=== PATIENT | male | born 1950 | race Hispanic/Latino ===

== ENCOUNTER 2022-06-04 09:45 | Inpatient (IN) | payer OTHER ==
--- OUTSIDE RECORDS SUMMARY | 2022-06-04 09:52 | XMS REPORT | Continuity of Care Document ---
:1950 Author Organization [facility] t Address [address] [place] [address] Care Team Providers Name Role Phone Favian Zamora Attending Clinician Unavailable Zander Gaston Attending Clinician Unavailable Sulema Robertson Attending Clinician Darrick Benson Attending Clinician Unavailable Lizzy Duke Attending Clinician Unavailable Favian Zamora Admitting Clinician Unavailable Zander Gaston Admitting Clinician Unavailable Darrick Benson Admitting Clinician Unavailable Lizzy Duke Admitting Clinician Unavailable Physician, No Primary or Family Admitting Clinician Unavaila ble Payers Payer Name Policy Type Policy Number Effective Date Expiration Date S ource Problems This patient has no known problems. Allergies, Adverse Reactions, Alerts Allergy Allergy Status Severity Reaction(s) Onset Inactive Treating Comm ents Source Name Type Date Date Clinician No Known DA Active U [facility]22 [facility] s 00:00: [address] No Known DA Active U [facility] 07-13 [facility] 00:00: [address] No Known DA Active U 2018-0 [facility] 6-10 [place] s 00:00: [place] 00 [facility] No Known DA Active U 2018-0 [facility] 6-10 [facility] s 00:00: [place] 00 [facility] No Known DA Active U 2017-0 [facility] 9-08 [place] [facility] Social History Social Habit Start Date Stop Date Quantity Comments Source Sex Assigned At [address] [facility] 00:00:00 00:00:00 Smoking Status Start Date Stop Date Source Tobacco smoking consumption unknown [facility] Medications This patient has no known medications. Procedures Procedure Date / Time Performed Performing Clinician [facility] e [id number] 2019-10-08 00:00:00 [facility] [id number] 2019-10-07 00:00:00 [facility] [id number] 2019-10-04 00:00:00 DILCIA.02 [facility] [id number] 2019-10-02 00:00:00 [facility] [id number] 2019-10-02 00:00:00 [facility] [id number] 2019-09-25 00:00:00 [facility] [id number] 2019-09-25 00:00:00 [facility] Encounters Start End Encounter Admission Attending Care Care Encounter Source Date/Time Date/Time Type Type Clinicians Facility Department ID 2021-07-16 Inpatient ANALY Zamora [facility] ENDO [id number] [facility] 11:30:00 Favian Sethi [facility] 2022-05-22 2022-05-27 Inpatient EM FEDERICO Gaston MED [id number] [facility] 20:52:00 18:26:00 Zander Blackmon [facility] 2021-02-21 2021-02-21 Telephone MALLORY Ricardo [facility] [id number] 00:00:00 00:00:00 [facility] [id number] [facility] [id number] 2019-10-06 2019-10-22 Inpatient FEDERICO Arias REHA [id number] [facility] 17:26:00 09:59:55 Darrick 82 [facility] 2019-10-01 2019-10-10 Inpatient FEDERICO Arias REHA [id number] [facility] 18:16:00 00:09:00 Darrick 40 [facility] 2019-10-02 2019-10-08 Inpatient Lizzy Miramontes HCAKW REHA [id number] [facility] 15:58:00 05:07:29 52 [facility] 2019-09-22 2019-10-05 Inpatient HCAKW BACILIO [id number] [facility] 14:26:00 00:22:19 21 [facility] 2019-09-22 2019-09-22 Outpatient Lizzy Duke [facility] OUTD [id number] [facility] 20:26:00 20:26:00 84 [facility] Results Test Description Test Time Test Comments Results Result Comments Source GLUBED 2022-05-27 17:16:00 Test Item Value Reference Range Interpretation Comme nts GLUBED (test code = GLUBED) 353 MG/DL 74-106 H [id number] 12:37:00 Test Item Value Reference Range Interpretation Comments GLUBED (test code = GLUBED) 200 MG/DL 74-106 H BASIC METABOLIC [id number] 05:31:00 Test Item Value Reference Range Interpretation Comments SODIUM (test code = 134 mmol/L 137-145 L NA) POTASSIUM (test 3.3 mmol/L 3.4-5.0 L code = K) CHLORIDE (test code 98 mmol/L 98-107 N = CL) CARBON DIOXIDE 33 mmol/L 22-30 H (test code = CO2) ANION GAP (test 6 code = GAP) GLUCOSE (test code 218 mg/dL 74-106 H = GLU) BLOOD UREA NITROGEN 18 mg/dL 9-20 N (test code = BUN) GLOMERULAR 108 mL/min The Glomerular FILTRATION RATE Filtration R ate is a (test code = GFR) calculated parameterbased on serum Creatinine, pat ient age and sex. GFR va luesless than 60 mL/min/ 1.73 square meters a re indicative ofCh ronic Kidney Disease. Values less than 15 mL/min/1.73squa re meters indicate Kidney failure. The calculation for GFR is based on the CK D-EPI (2020) calculat ion. This formulais race indifferent and is the recommended for nita for GFRby the [facility] on for Adults.The GFR will not calculate if th e sex is unknown or if thepatient's ag e is <18 years. CREATININE (test < 0.5 mg/dL 0.7-1.3 L code = CREAT) CALCIUM (test code 8.0 mg/dL 8.4-10.2 L = CA) INDEX HEMOLYSIS 25 Index/DL 0-100 N (test code = HEMINDEX) LIVER FUNCTION [id number] 05:31:00 Test Item Value Reference Range Interpretation Comments TOTAL PROTEIN (test 5.8 g/dL 6.3-8.2 L code = PROT) "A positive bias may occur for patients taking Eltrombopag(a b one marrow stimulan t used to treat thrombocy topenia andaplastic anemia)." ALBUMIN (test code = 3.1 g/dL 3.5-5.0 L ALB) BILIRUBIN TOTAL 1.3 mg/dL 0.2-1.3 N "A positive bias may (test code = BILT) occur for patients taking Eltrombo pag(a bone marrow sti mulant used to treat thrombocytopeni a andaplastic ane edson)." BILIRUBIN CONJUGATED 0 mg/dL 0-0.3 N "A posi tive bias may (test code = BILCON) occur f or patients taking Eltrombo pag(a bone marrow sti mulant used to treat thrombocytopeni a andaplastic ane edson)." CON JUGATED BILIRUBIN IS TH E REPLACEMENT ASS AY FOR DIRECTBILIRUBIN . BILIRUBIN 0.8 mg/dL 0-1.1 N UNCONJUGATED (test code = BILUNC) SGOT/AST (test code 51 U/L 15-46 H = AST) SGPT/ALT (test code 40 U/L 0-49 N = ALT) ALKALINE PHOSPHATASE 87 U/L 38-126 N (test code = ALKP) [id number] 05:31:00 Test Item Value Reference Range Interpretation Comments MAGNESIUM (test code = MAG) 1.6 mg/dL 1.6-2.3 N HGBA1C - GLYCOSYLATED [id number] 05:25:00 Test Item Value Reference Range Interpretation Comments GLYCOSYLATED 8.7 % 0-5.9 H Current guideli sada recommend HEMOGLOBIN (HA1C) a treatmen t goal of <7% (test code = GLYHGB) fordiab etic patients. A1c may be overesti mated in diabeticpatient s exhibiting poor control an d who are alsoheterozygou s or homozygous for HgbS or HgbC. Totalglycohemog lobin is a better indicato r of diabetic control inpatie nts with these hemoglobi n variants. [id number] 05:11:00 Test Item Value Reference Range Interpretation Comments GLUBED (test code = GLUBED) 205 MG/DL 74-106 H CBC W/AUTO [id number] 04:42:00 Test Item Value Reference Range Interpretation Comments WHITE BLOOD CELL (test code = 8.9 x10 3/uL 5.0-12.0 N WBC) RED BLOOD CELL (test code = 3.60 x10 6/uL 4.70-6.10 L RBC) HEMOGLOBIN (test code = HGB) 10.9 g/dL 14.0-18.0 L HEMATOCRIT (test code = HCT) 31.7 % 37.0-49.0 L MEAN CELL VOLUME (test code = 88 fL 80-94 N MCV) MEAN CELL HGB (test code = MCH) 30.3 pg 27-31 N MEAN CELL HGB CONCENTRATION 34.4 g/dL 33-37 N (test code = MCHC) RED CELL DISTRIBUTION WIDTH 13.2 % 11.5-15.5 N (test code = RDW) PLATELET COUNT (test code = 138 x10 3/uL 130-400 N PLT) MEAN PLATELET VOLUME (test code 10.2 fL 9.4-16.4 N = MPV) NEUTROPHIL % (test code = NT%) 79.3 % 43-65 H IMMATURE GRANULOCYTE % (test 0.8 % 0.0-2.0 N code = IG%) LYMPHOCYTE % (test code = LY%) 13.0 % 20.5-45.5 L MONOCYTE % (test code = MO%) 5.5 % 5.5-11.7 N EOSINOPHIL % (test code = EO%) 1.2 % 0.9-2.9 N BASOPHIL % (test code = BA%) 0.2 % 0.2-1.0 N NUCLEATED RBC % (test code = 0.0 % 0-1.0 N NRBC%) NEUTROPHIL # (test code = NT#) 7.04 x10 3/uL 2.2-4.8 H IMMATURE GRANULOCYTE # (test 0.07 x10 3/uL 0-0.03 H code = IG#) LYMPHOCYTE # (test code = LY#) 1.16 x10 3/uL 1.3-2.9 L MONOCYTE # (test code = MO#) 0.49 x10 3/uL 0.3-0.8 N EOSINOPHIL # (test code = EO#) 0.11 x10 3/uL 0.0-0.2 N BASOPHIL # (test code = BA#) 0.02 x10 3/uL 0.0-0.1 N [id number] 17:05:00 Test Item Value Reference Range Interpretation Comments GLUBED (test code = GLUBED) 346 MG/DL 74-106 H [id number] 12:12:00 Test Item Value Reference Range Interpretation Comments GLUBED (test code = GLUBED) 392 MG/DL 74-106 H CBC W/AUTO [id number] 05:22:00 Test Item Value Reference Range Interpretation Comments WHITE BLOOD CELL (test code = 4.9 x10 3/uL 5.0-12.0 L WBC) RED BLOOD CELL (test code = 4.01 x10 6/uL 4.70-6.10 L RBC) HEMOGLOBIN (test code = HGB) 12.0 g/dL 14.0-18.0 L HEMATOCRIT (test code = HCT) 35.2 % 37.0-49.0 L MEAN CELL VOLUME (test code = 88 fL 80-94 N MCV) MEAN CELL HGB (test code = MCH) 29.9 pg 27-31 N MEAN CELL HGB CONCENTRATION 34.1 g/dL 33-37 N (test code = MCHC) RED CELL DISTRIBUTION WIDTH 13.2 % 11.5-15.5 N (test code = RDW) PLATELET COUNT (test code = 133 x10 3/uL 130-400 N PLT) MEAN PLATELET VOLUME (test code 10.2 fL 9.4-16.4 N = MPV) NEUTROPHIL % (test code = NT%) 84.8 % 43-65 H IMMATURE GRANULOCYTE % (test 0.4 % 0.0-2.0 N code = IG%) LYMPHOCYTE % (test code = LY%) 13.2 % 20.5-45.5 L MONOCYTE % (test code = MO%) 1.4 % 5.5-11.7 L EOSINOPHIL % (test code = EO%) 0.0 % 0.9-2.9 L BASOPHIL % (test code = BA%) 0.2 % 0.2-1.0 N NUCLEATED RBC % (test code = 0.0 % 0-1.0 N NRBC%) NEUTROPHIL # (test code = NT#) 4.16 x10 3/uL 2.2-4.8 N IMMATURE GRANULOCYTE # (test 0.02 x10 3/uL 0-0.03 N code = IG#) LYMPHOCYTE # (test code = LY#) 0.65 x10 3/uL 1.3-2.9 L MONOCYTE # (test code = MO#) 0.07 x10 3/uL 0.3-0.8 L EOSINOPHIL # (test code = EO#) 0.00 x10 3/uL 0.0-0.2 N BASOPHIL # (test code = BA#) 0.01 x10 3/uL 0.0-0.1 N COMPREHENSIVE METABOLIC [id number] 02:10:00 Test Item Value Reference Range Interpretation Comments SODIUM (test code = 133 mmol/L 137-145 L NA) POTASSIUM (test 3.4 mmol/L 3.4-5.0 N code = K) CHLORIDE (test code 97 mmol/L 98-107 L = CL) CARBON DIOXIDE 33 mmol/L 22-30 H (test code = CO2) ANION GAP (test 6 code = GAP) GLUCOSE (test code 274 mg/dL 74-106 H = GLU) BLOOD UREA NITROGEN 13 mg/dL 9-20 N (test code = BUN) GLOMERULAR 108 mL/min The Glomerular FILTRATION RATE Filtration R ate is a (test code = GFR) calculated parameterbased on serum Creatinine, pat ient age and sex. GFR va luesless than 60 mL/min/ 1.73 square meters a re indicative ofCh ronic Kidney Disease. Values less than 15 mL/min/1.73squa re meters indicate Kidney failure. The calculation for GFR is based on the CK D-EPI (2020) calculat ion. This formulais race indifferent and is the recommended for nita for GFRby the [facility] on for Adults.The GFR will not calculate if th e sex is unknown or if thepatient's ag e is <18 years. CREATININE (test 0.5 mg/dL 0.7-1.3 L code = CREAT) TOTAL PROTEIN (test 6.1 g/dL 6.3-8.2 L code = PROT) " A positive bias m ay occur for patients ta lucero Eltrombopag(a b one marrow stimulan t used to treat thrombocytopeni a andaplastic anemia)." ALBUMIN (test code 3.3 g/dL 3.5-5.0 L = ALB) CALCIUM (test code 8.1 mg/dL 8.4-10.2 L = CA) BILIRUBIN TOTAL 1.7 mg/dL 0.2-1.3 H "A positive bias may (test code = BILT) occur for patients taking Eltrombo pag(a bone marrow sti mulant used to treat thrombocytopeni a andaplastic ane edson)." BILIRUBIN 0 mg/dL 0-0.3 N "A positive jessica s may CONJUGATED (test occur for p atients code = BILCON) taking Eltrom bopag(a bone marrow sti mulant used to treat thrombocytopeni a andaplastic ane edson)." C ONJUGATE D BILIRUBIN IS THE REPLACEMENT ASS AY FOR DIRECTBILIRUBIN . BILIRUBIN 1.1 mg/dL 0-1.1 N UNCONJUGATED (test code = BILUNC) SGOT/AST (test code 71 U/L 15-46 H = AST) SGPT/ALT (test code 46 U/L 0-49 N = ALT) ALKALINE 102 U/L 38-126 N PHOSPHATASE (test code = ALKP) INDEX HEMOLYSIS 18 Index/DL 0-100 N (test code = HEMINDEX) [id number] 02:10:00 Test Item Value Reference Range Interpretation Comments MAGNESIUM (test code = MAG) 1.7 mg/dL 1.6-2.3 N [id number] 16:48:00 Test Item Value Reference Range Interpretation Comments GLUBED (test code = GLUBED) 159 MG/DL 74-106 H [id number] 11:36:00 Test Item Value Reference Range Interpretation Comments GLUBED (test code = GLUBED) 160 MG/DL 74-106 H - CT HEAD/BRAIN W/O [id number] 10:16:00 [facility] 1950 Sex: M FAX:Seth Velazquez MD [phone] [place]: St: ADM FAX: Zander Garcia MD FAX: Kamini Chow MD R1 Name: SEYMOUR DICKERSON [facility] : 1950 Age/S: 71/M [address] Unit: [id number] Loc: C.[address]T [place] [address] Phys: Kamini Chow MD R1 Acct: [id number] Dis Date: Status: ADM IN PHONE #: [phone] Exam Date: 05/25/2022 1005 FAX #: [phone] Reason: acute dizziness, headache EXAMS: CPT CODE: [id number] CT HEAD/BRAIN W/O CONT [id number] EXAM: - CT HEAD/BRAIN W/O CONT INDICATION: acute dizziness, headache TECHNIQUE: Axial tomograms through the brain were obtained without intravenous contrast. Coronal and sagittal reformatted images are provided. All CT scans are performed using radiation dose reduction technique. Technical factors are evaluated and adjusted to insure appropriate moderation of exposure. Automated dose management technology is applied to adjust the radiation dose to minimize exposure while achieving a diagnostic quality image. Location:T18 FINDINGS: Intra-axial and extra-axial structures: No CT evidence of acute territorial infarct, or intracranial hemorrhage seen. No mass effect, midline shift or hydrocephalus seen. Bones and soft tissues:Appear unremarkable. Paranasal sinuses, and mastoid air cells: Appear clear. Orbits:Visualized orbits appear unremarkable. IMPRESSION: No acute intracranial process seen. at 1016 Reported and signed by: Valeriy Basilio MD CC: Seth Lin MD; Zander Gaston MD; Kamini Chow MD Technologist: JALYN VEGA; BETZY VINSON Trnscrd Dt/Tm: 05/25/2022 (1016) [id number] Orig Print D/T: S: 05/25/2022 (1019 PAGE 1 Signed ReportBASIC METABOLIC [id number] 05:59:00 Test Item Value Reference Range Interpretation Comments SODIUM (test code = 135 mmol/L 137-145 L NA) POTASSIUM (test 3.1 mmol/L 3.4-5.0 L code = K) CHLORIDE (test code 99 mmol/L 98-107 N = CL) CARBON DIOXIDE 31 mmol/L 22-30 H (test code = CO2) ANION GAP (test 8 code = GAP) GLUCOSE (test code 157 mg/dL 74-106 H = GLU) BLOOD UREA NITROGEN 9 mg/dL 9-20 N (test code = BUN) GLOMERULAR 108 mL/min The Glomerular FILTRATION RATE Filtration R ate is a (test code = GFR) calculated parameterbased on serum Creatinine, pat ient age and sex. GFR va luesless than 60 mL/min/ 1.73 square meters a re indicative ofCh ronic Kidney Disease. Values less than 15 mL/min/1.73squa re meters indicate Kidney failure. The calculation for GFR is based on the CK D-EPI (2020) calculat ion. This formulais race indifferent and is the recommended for nita for GFRby the [facility]ney [facility] on for Adults.The GFR will not calculate if th e sex is unknown or if thepatient's ag e is <18 years. CREATININE (test < 0.5 mg/dL 0.7-1.3 L code = CREAT) CALCIUM (test code 8.4 mg/dL 8.4-10.2 N = CA) INDEX HEMOLYSIS 25 Index/DL 0-100 N (test code = HEMINDEX) [id number] 05:59:00 Test Item Value Reference Range Interpretation Comments MAGNESIUM (test code = MAG) 1.4 mg/dL 1.6-2.3 L [id number] 05:41:00 Test Item Value Reference Range Interpretation Comments GLUBED (test code = GLUBED) 166 MG/DL 74-106 H CBC W/AUTO [id number] 04:47:00 Test Item Value Reference Range Interpretation Comments WHITE BLOOD CELL (test code = 5.1 x10 3/uL 5.0-12.0 N WBC) RED BLOOD CELL (test code = 4.08 x10 6/uL 4.70-6.10 L RBC) HEMOGLOBIN (test code = HGB) 12.6 g/dL 14.0-18.0 L HEMATOCRIT (test code = HCT) 36.5 % 37.0-49.0 L MEAN CELL VOLUME (test code = 90 fL 80-94 N MCV) MEAN CELL HGB (test code = MCH) 30.9 pg 27-31 N MEAN CELL HGB CONCENTRATION 34.5 g/dL 33-37 N (test code = MCHC) RED CELL DISTRIBUTION WIDTH 13.5 % 11.5-15.5 N (test code = RDW) PLATELET COUNT (test code = 129 x10 3/uL 130-400 L PLT) MEAN PLATELET VOLUME (test code 9.9 fL 9.4-16.4 N = MPV) NEUTROPHIL % (test code = NT%) 51.0 % 43-65 N IMMATURE GRANULOCYTE % (test 0.4 % 0.0-2.0 N code = IG%) LYMPHOCYTE % (test code = LY%) 31.2 % 20.5-45.5 N MONOCYTE % (test code = MO%) 13.0 % 5.5-11.7 H EOSINOPHIL % (test code = EO%) 3.8 % 0.9-2.9 H BASOPHIL % (test code = BA%) 0.6 % 0.2-1.0 N NUCLEATED RBC % (test code = 0.0 % 0-1.0 N NRBC%) NEUTROPHIL # (test code = NT#) 2.58 x10 3/uL 2.2-4.8 N IMMATURE GRANULOCYTE # (test 0.02 x10 3/uL 0-0.03 N code = IG#) LYMPHOCYTE # (test code = LY#) 1.58 x10 3/uL 1.3-2.9 N MONOCYTE # (test code = MO#) 0.66 x10 3/uL 0.3-0.8 N EOSINOPHIL # (test code = EO#) 0.19 x10 3/uL 0.0-0.2 N BASOPHIL # (test code = BA#) 0.03 x10 3/uL 0.0-0.1 N [id number] 21:36:00 Test Item Value Reference Range Interpretation Comments GLUBED (test code = GLUBED) 260 MG/DL 74-106 H [id number] 16:14:00 Test Item Value Reference Range Interpretation Comments GLUBED (test code = GLUBED) 288 MG/DL 74-106 H LIVER FUNCTION [id number] 16:07:00 Test Item Value Reference Range Interpretation Comments TOTAL PROTEIN (test 6.2 g/dL 6.3-8.2 L code = PROT) "A positive bias may occur for patients taking Eltrombopag(a b one marrow stimulan t used to treat thrombocy topenia andaplastic anemia)." ALBUMIN (test code = 3.4 g/dL 3.5-5.0 L ALB) BILIRUBIN TOTAL 1.5 mg/dL 0.2-1.3 H "A positive bias may (test code = BILT) occur for patients taking Eltrombo pag(a bone marrow sti mulant used to treat thrombocytopeni a andaplastic ane edson)." BILIRUBIN CONJUGATED 0 mg/dL 0-0.3 N "A posi tive bias may (test code = BILCON) occur f or patients taking Eltrombo pag(a bone marrow sti mulant used to treat thrombocytopeni a andaplastic ane edson)." CON JUGATED BILIRUBIN IS TH E REPLACEMENT ASS AY FOR DIRECTBILIRUBIN . BILIRUBIN 0.9 mg/dL 0-1.1 N UNCONJUGATED (test code = BILUNC) SGOT/AST (test code 77 U/L 15-46 H = AST) SGPT/ALT (test code 48 U/L 0-49 N = ALT) ALKALINE PHOSPHATASE 88 U/L 38-126 N (test code = ALKP) [id number] 16:07:00 Test Item Value Reference Range Interpretation Comments MAGNESIUM (test code = MAG) 1.1 mg/dL 1.6-2.3 L [id number] 12:06:00 Test Item Value Reference Range Interpretation Comments GLUBED (test code = GLUBED) 222 MG/DL 74-106 H BASIC METABOLIC [id number] 05:49:00 Test Item Value Reference Range Interpretation Comments SODIUM (test code = 135 mmol/L 137-145 L NA) POTASSIUM (test 3.0 mmol/L 3.4-5.0 L code = K) CHLORIDE (test code 100 mmol/L 98-107 N = CL) CARBON DIOXIDE 29 mmol/L 22-30 N (test code = CO2) ANION GAP (test 9 code = GAP) GLUCOSE (test code 213 mg/dL 74-106 H = GLU) BLOOD UREA NITROGEN 15 mg/dL 9-20 N (test code = BUN) GLOMERULAR 108 mL/min The Glomerular FILTRATION RATE Filtration R ate is a (test code = GFR) calculated parameterbased on serum Creatinin e, patient age and sex. GFR valuesless than 60 mL/min/1.73 squ are meters are allan cative ofChronic Kidne y Disease. Values less than 15 mL/min/1.73squa re meters indicate Kidney failure. The calculation for GFR is based on the CK D-EPI (2020) calculat ion. This formulais race indifferent and is the recommended for nita for GFRby the [facility] on for Adults.The GFR will not calculate i f the sex is unknown or if thepatient's ag e is <18 years. CREATININE (test 0.5 mg/dL 0.7-1.3 L code = CREAT) CALCIUM (test code 8.4 mg/dL 8.4-10.2 N = CA) INDEX HEMOLYSIS < 15 Index/DL 0-100 N (test code = HEMINDEX) CBC W/AUTO [id number] 04:18:00 Test Item Value Reference Range Interpretation Comments WHITE BLOOD CELL (test code = 5.1 x10 3/uL 5.0-12.0 N WBC) RED BLOOD CELL (test code = 3.95 x10 6/uL 4.70-6.10 L RBC) HEMOGLOBIN (test code = HGB) 12.2 g/dL 14.0-18.0 L HEMATOCRIT (test code = HCT) 35.7 % 37.0-49.0 L MEAN CELL VOLUME (test code = 90 fL 80-94 N MCV) MEAN CELL HGB (test code = MCH) 30.9 pg 27-31 N MEAN CELL HGB CONCENTRATION 34.2 g/dL 33-37 N (test code = MCHC) RED CELL DISTRIBUTION WIDTH 13.9 % 11.5-15.5 N (test code = RDW) PLATELET COUNT (test code = 117 x10 3/uL 130-400 L PLT) MEAN PLATELET VOLUME (test code 9.7 fL 9.4-16.4 N = MPV) NEUTROPHIL % (test code = NT%) 58.2 % 43-65 N IMMATURE GRANULOCYTE % (test 0.6 % 0.0-2.0 N code = IG%) LYMPHOCYTE % (test code = LY%) 26.1 % 20.5-45.5 N MONOCYTE % (test code = MO%) 11.0 % 5.5-11.7 N EOSINOPHIL % (test code = EO%) 3.3 % 0.9-2.9 H BASOPHIL % (test code = BA%) 0.8 % 0.2-1.0 N NUCLEATED RBC % (test code = 0.0 % 0-1.0 N NRBC%) NEUTROPHIL # (test code = NT#) 2.96 x10 3/uL 2.2-4.8 N IMMATURE GRANULOCYTE # (test 0.03 x10 3/uL 0-0.03 N code = IG#) LYMPHOCYTE # (test code = LY#) 1.33 x10 3/uL 1.3-2.9 N MONOCYTE # (test code = MO#) 0.56 x10 3/uL 0.3-0.8 N EOSINOPHIL # (test code = EO#) 0.17 x10 3/uL 0.0-0.2 N BASOPHIL # (test code = BA#) 0.04 x10 3/uL 0.0-0.1 N - CT ANGIO [id number] 16:44:00 [facility] : 1950 Sex: M FAX:Seth Velazquez MD [phone] [place]: St: [facility] FAX: Kamar Gale [phone] FAX: Anand Gonzalez DO R3 Name: SEYMOUR DICKERSON [facility] Uri : 1950 Age/S: 71/M [address] Unit: [id number] Loc: [place] [address] Phys: Anand Gonzalez DO R3 Acct: [id number] Dis Date: Status: ADM IN PHONE #: [phone] Exam Date: 05/23/2022 1604 FAX #: [phone] Reason: multifocal pneumonia, hypoxia, tach ycardia EXAMS: CPT CODE: [id number] CT ANGIO CHEST [id number] Location of dictation: B2 CTA of the chest with contrast, PE protocol CLINICAL INDICATION: Multifocal pneumonia, hypoxia and tachycardia Comments: Volumetric data acquisition through the chest with intravenous contrast reconstructed as contiguous axial volume, and multiplanar coronal and sagittal reconstructions per department protocol. 2.5 mm axial sections. Reconstructions - coronal and sagittal planes with MIP reformats Automated exposure reduction (Auto mA/Smart mA) was utilized in compliance with ACR [employer]. COMPARISON: Recent chest x-ray FINDINGS: Pulmonary arteries: No obvious evidence for pulmonary embolism or heart strain. Small subsegmental branches in the lower lobes are not optimally evaluated due to adjacent opacities andsome motion artifact. Heart and great vessels: Mild aneurysm of the thoracic aorta. The ascending aorta measures 3.7 cm in diameter, the aorta at the arch 3.3 cm and the descending thoracic aorta 3.3 cm. No evidence for dissection. The heart is not enlarged and there is no pericardial effusion. There are scattered atherosclerosis without cardiac decompensation. Lungs and pleura: Abnormal consolidations involving the left upper lobe and lingula. Additional mostly reticular opacities are seen in the right upper and both lower lobes. Some nodular opacities also seen in the medial right middle lobe. Noevidence for effusion. The chest wall is intact. Upper abdomen: Fatty liver with likely cyst in the right lobe, evaluation degraded by motion. Gallbladder removed. PAGE 1 Signed Report (CONTINUED) FAX:Seth Velazquez MD [phone] [place]: St: ADM FAX: Kamar Gale [phone] FAX: Junior Anand ruiz DO R3 [facility] : 1950 Age/S: 71/M [address] Unit: [id number] Loc: [place] [address] Phys: Anand Gonzalez DO Acct: [id number] Dis Date: Status: ADM IN PHONE #: [phone] Exam Date: 05/23/2022 1604 FAX #: [phone] Reason: multifocal pneumonia, hypoxia, tach ycardia EXAMS: CPT CODE: [id number] CT ANGIO CHEST [id number] (Continued) Bones and soft tissues: Severalright sided rib fractures anteriorly appear in the healing phase. No other acute osseous abnormalities noted. IMPRESSION: 1. No obvious pulmonary embolism, dissection or heart strain. 2. 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 3. Predominantly left- sided consolidations likely due to pneumonia. Bibasilar atelectasis also present. 4. Healing right rib fractures. at 3804 Reported and signed by: Gertrudis Becerra MD CC: Seth Lin MD; Kamar Gale MD; Anand Gonzalez DO Technologist: Reba esquivel Trnscrd Dt/Tm: 05/23/2022 (0594) [email or web address] Orig Print D/T: S: 05/23/2022 (8724 PAGE 2 Signed ReportCARDIAC ENZYMES [id number] 14:42:00 Test Item Value Reference Range Interpretation Comments TROPONIN-I 0.017 ng/mL 0.012-0.033 N (test code = TROPI) Please be a dvised of the updated referen ce ranges for the new Building Certifier ry instrumentation . VITROS TROPO ARSH I CRITERIANORM AL PATIENT W/O CIRCULATING TNI: 0.012-0.033 ng/ mLCIRCULATING TNI PRESENT: 0. 034-0.119 ng/mL(MAY BE AT RISK OF AMI)AMI DIAGNOS TIC CUTOFF: >/= 0.120 ng/mL~~~~~~~~~~ ~~~~~~~~~~~~~ ~~~~~~~~~~~~~~~ ~~~~~~~~~~~~~ ~~~~~~~~The use of serial sampling and te sting protocol is are commended practice.An mauro vated troponin level alone is often not suffi cient fordiagnosis of myocardial infarction. Tro ponin results obtained by dif ferent assays may vary.Evalua tion of the extent of myoca rdial damage based onincreas e of troponin would be valid only if similarmethodol ogy is used.~~~~~~~~~~ ~~~~~~~~~~~~~ ~~~~~~~~~~~~~~~ ~~~~~~~~~~~~~ ~~~~~~~~ A POSI TIVE BIAS MAY OCCUR FOR PATIE NTS TAKING BIOTIN SUPPLEMENTS~~~~ ~~~~~~~~~~~~~ ~~~~~~~~~~~~~~~ ~~~~~~~~~~~~~ ~~~~~~~~~~~~~~ Spec Comments: Cancel third set if POC Troponin completed in EDLIPID PROFILE (CORONARY RISK)2022-05-23 13:44:00 Test Item Value Reference Range Interpretation Comments TRIGLYCERIDES (test 164 mg/dL TRIGLYCE RIDES code = TRIG) REFERENCE RANGE:Normal: < 150 mg/dLBorderline High: 150-199 mg/dLHi gh: 200-499 mg/dLVe ry High: >=500 mg/ dL CHOLESTEROL (test 143 mg/dL CHOLESTERO L REFERENCE code = CHOL) RANGE:DESIRABLE : < 200 mg/dLBORDER LINE: 200-239 mg/dLHI GH: >=240 mg/dL HDL CHOLESTEROL (test 42 mg/dL 40-59 N code = HDL) LIPOPROTEIN LDL (test 57.37 mg/dL 32-99 N code = LDLC) CORONARY RISK FACTOR 3.40 CHOL/H DL RISK MALE: (test code = RISK) 1/2 AVG 3 .43 FEMALE: 1/2 AVG 3.27 AV G 4.97 AVG 4.44 2X AVG 9.55 2X AVG 7.05 3X AVG 23.39 3X AVG 11.04~~~~~~~~~~ ~~~~~~ ~~~~~~~~~~~~~~~ ~~~~~~ ~~~~~~~~~~~~~~~ ~~~~~~ ~~National Cholesterol Edu cation (NCEP) Guidelines:~~~~ ~~~~~~ ~~~~~~~~~~~~~~~ ~~~~~~ ~~~~~~~~~~~~~~~ ~~~~~~ ~~~~~~~~ HDL Cholesterol<4 0mg/dL : HDL Cholester ol (Major risk fac tor for CHD)>60mg/d L: HDL Cholesterol (Ne gative risk factor for CHD)40-59mg/dL: Borderline Risk LDL Cholesterol<1 00mg/d L: Desirable LD L-C [id number] 0-159m g/dL: Borderlin e High Risk LDL-C [id number] 0-189m g/dL: High risk LDL-C concentration H DL-LDL Cholesterol is affected by a n umber of factors such as smoking, age an d sex.~~~~~~~~~~~ ~~~~~~ ~~~~~~~~~~~~~~~ ~~~~~~ ~~~~~~~~~~~~~~~ ~~~~~~ ~ CARDIAC ENZYMES [id number] 13:42:00 Test Item Value Reference Range Interpretation Comments TROPONIN-I 0.017 ng/mL 0.012-0.033 N (test code = TROPI) Please be a dvised of the updated referen ce ranges for the new Building Certifier ry instrumentation . VITROS TROPO ARSH I CRITERIANORM AL PATIENT W/O CIRCULATING TNI: 0.012-0.033 ng/ mLCIRCULATING TNI PRESENT: 0. 034-0.119 ng/mL(MAY BE AT RISK OF AMI)AMI DIAGNOS TIC CUTOFF: >/= 0.120 ng/mL~~~~~~~~~~ ~~~~~~~~~~~~~ ~~~~~~~~~~~~~~~ ~~~~~~~~~~~~~ ~~~~~~~~The use of serial sampling and te sting protocol is are commended practice.An mauro vated troponin level alone is often not suffi cient fordiagnosis of myocardial infarction. Tro ponin results obtained by dif ferent assays may vary.Evalua tion of the extent of myoca rdial damage based onincreas e of troponin would be valid only if similarmethodol ogy is used.~~~~~~~~~~ ~~~~~~~~~~~~~ ~~~~~~~~~~~~~~~ ~~~~~~~~~~~~~ ~~~~~~~~ A POSI TIVE BIAS MAY OCCUR FOR PATIE NTS TAKING BIOTIN SUPPLEMENTS~~~~ ~~~~~~~~~~~~~ ~~~~~~~~~~~~~~~ ~~~~~~~~~~~~~ ~~~~~~~~~~~~~~ Spec Comments: Cancel third set if POC Troponin completed in EDLACTIC ACID 2022-05-23 13:19:00 Test Item Value Reference Range Interpretation Comments LACTIC ACID (test code = LACT) 1.9 mmol/L 0.7-2.0 N COVID 19 INHOUSE [id number] 13:07:00 Test Item Value Reference Range Interpretation Comments COVID 19 INHOUSE AG (test code = NEGATIVE Negative [id number]) - US ABDOMEN [id number] 06:33:00 [facility] 1950 Sex: M FAX:Seth Velazquez MD [phone] [place]: St: ADM FAX: Kamar Gale [phone] Name: SEYMOUR DICKERSON [facility] : 1950 Age/S: 71/M [address] Unit #: [id number] Loc: [place] [address] Phys: Maurice Pruitt DO Acct: [id number] Dis Date: Status: ADM IN PHONE #: [phone] Exam Date: 613 FAX #: [phone] Reason: n/v EXAMS: CPT CODE: [id number] US ABDOMEN LTD 09482 EXAM:- US ABDOMEN LTD HISTORY: n/v Location code:C3 COMPARISON: None available time of interpretation. TECHNIQUE: Grayscale B-mode and color Doppler sonographic images of the right upper quadrant were obtained. FINDINGS: Exam was limited by patient's body habitus. Liver: Right hepatic lobe length: 13.5 cmParenchyma/Contour: Nodular contour to the liver is suggested. The liver is poorly assessed due to overlying shadowing. Main portal vein: Patent with normal (hepatopetal) flow. Biliary ducts: No intrahepatic biliary ductal dilation. Common duct measures 4 mm in diameter at the elinor hepatis. Gallbladder: Surgically absent Pancreas: Not well visualized Right Kidney: Largely obscured with no discretehydronephrosis. Length: 13.3 cm Other: No ascites in the visualized abdomen. IMPRESSION: 1. Markedly limited exam as above. Suggestion of cirrhotic morphology of the liver although this is not definitive. Please see above. at 0633 Reported and signed by: Jose G Ferrell MD PAGE 1 Signed Report (CONTINUED) FAX: Seth Velazquez MD [phone] [place]: St: [facility] FAX: Kamar Gale [phone] [facility] : 1950 Age/S: 71/M [address] Unit #: [id number] Loc: [place] [address] Phys: Maurice Pruitt DO Acct: [id number] Dis Date: Status: ADM IN PHONE #: [phone] Exam Date: 05/23/2022613 FAX #: [phone] Reason: n/v EXAMS: CPT CODE: [id number] [facility] ABDOMEN LTD 75485 (Continued) CC: Seth Lin MD; Kamar Gale MD Technologist: VASQUEZ GRIGSBY Trnhird Date/Time/By: 05/23/2022 (0633) : By: [email or web address] PAGE 2 Signed Report FAX: Seth Velazquez MD [phone] [place]: St: ADM FAX: Kamar Gale [phone] Name: SEYMOUR DICKERSON [facility] : 1950 Age/S: 71/M [address] Unit #: [id number] [place]: [place] [address] Phys: Maurice Pruitt DO Acct: [id number] Dis Date: Status: ADM IN PHONE #: [phone] Exam Date: 05/23/2022613 FAX #: [phone] Reason: n/v EXAMS:CPT CODE: [id number] Est[facility] ABDOMEN LTD 00599 (Continued) Orig Print D/T: S: 05/23/2022 (0636) PAGE 3 Sig ata ReportACUTE HEPATITIS [id number] 05:48:00 Test Item Value Reference Range Interpretation Comments HEP A AB TOTAL ONLY POSITIVE NEGATIVE A A COPY O F THIS RESULT (test code = HAVAB) MUST BE SENT TO INFECTION CONTR OL- ~~~~~~~~~~~~~~~ ~~~~~~~~~ ~~~~~~~~~~~~~~~ ~~~~~~~~~ ~~~~~~~~~~~~THI S TEST DETECTS TOTAL A NTIBODIES TO HEPATITIS A, AND DOESNOT DIFFERE NTIATE BETWEEN IGG AND IGM.~~~~~~~~~~~ ~~~~~~~~~ ~~~~~~~~~~~~~~~ ~~~~~~~~~ ~~~~~~~~~~~~~~~ ~ A POSITIVE BIAS M AY OCCUR IN PATIENTS PAM ING BIOTIN SUPPLEMENTS~~~~ ~~~~~~~~~ ~~~~~~~~~~~~~~~ ~~~~~~~~~ ~~~~~~~~~~~~~~~ ~~~~~~~~ HEP A AB IGM QUAL NEGATIVE NEGATIVE (test code = HAVMAB) A p ositive bias may occur for patients taking BIOTINsupplemen ts. AG HEPATITIS B NEGATIVE NEGATIVE SURFACE (test code = HBSAG) HEP B CORE AB IGM QL NEGATIVE NEGATIVE (test code = HBCMAB) AB HEPATITIS C (test NEGATIVE NEGATIVE code = HCVAB) [id number] 04:10:00 Test Item Value Reference Range Interpretation Comments MAGNESIUM (test code = MAG) 0.7 mg/dL 1.6-2.3 L CARDIAC ENZYMES [id number] 04:10:00 Test Item Value Reference Range Interpretation Comments TROPONIN-I 0.032 ng/mL 0.012-0.033 N (test code = TROPI) Please be a dvised of the updated referen ce ranges for the new Building Certifier ry instrumentation . VITROS TROPO ARSH I CRITERIANORM AL PATIENT W/O CIRCULATING TNI: 0.012-0.033 ng/ mLCIRCULATING TNI PRESENT: 0. 034-0.119 ng/mL(MAY BE AT RISK OF AMI)AMI DIAGNOS TIC CUTOFF: >/= 0.120 ng/mL~~~~~~~~~~ ~~~~~~~~~~~~~ ~~~~~~~~~~~~~~~ ~~~~~~~~~~~~~ ~~~~~~~~The use of serial sampling and te sting protocol is are commended practice.An mauro vated troponin level alone is often not suffi cient fordiagnosis of myocardial infarction. Tro ponin results obtained by dif ferent assays may vary.Evalua tion of the extent of myoca rdial damage based onincreas e of troponin would be valid only if similarmethodol ogy is used.~~~~~~~~~~ ~~~~~~~~~~~~~ ~~~~~~~~~~~~~~~ ~~~~~~~~~~~~~ ~~~~~~~~ A POSI TIVE BIAS MAY OCCUR FOR PATIE NTS TAKING BIOTIN SUPPLEMENTS~~~~ ~~~~~~~~~~~~~ ~~~~~~~~~~~~~~~ ~~~~~~~~~~~~~ ~~~~~~~~~~~~~~ Spec Comments: Cancel third set if POC Troponin completed in EDCBC W/AUTO DIFF 2022-05-23 03:33:00 Test Item Value Reference Range Interpretation Comments WHITE BLOOD CELL (test code = 7.9 x10 3/uL 5.0-12.0 N WBC) RED BLOOD CELL (test code = 4.48 x10 6/uL 4.70-6.10 L RBC) HEMOGLOBIN (test code = HGB) 13.8 g/dL 14.0-18.0 L HEMATOCRIT (test code = HCT) 40.5 % 37.0-49.0 N MEAN CELL VOLUME (test code = 90 fL 80-94 N MCV) MEAN CELL HGB (test code = MCH) 30.8 pg 27-31 N MEAN CELL HGB CONCENTRATION 34.1 g/dL 33-37 N (test code = MCHC) RED CELL DISTRIBUTION WIDTH 14.1 % 11.5-15.5 N (test code = RDW) PLATELET COUNT (test code = 152 x10 3/uL 130-400 N PLT) MEAN PLATELET VOLUME (test code 9.7 fL 9.4-16.4 N = MPV) NEUTROPHIL % (test code = NT%) 74.8 % 43-65 H IMMATURE GRANULOCYTE % (test 0.4 % 0.0-2.0 N code = IG%) LYMPHOCYTE % (test code = LY%) 17.1 % 20.5-45.5 L MONOCYTE % (test code = MO%) 7.0 % 5.5-11.7 N EOSINOPHIL % (test code = EO%) 0.1 % 0.9-2.9 L BASOPHIL % (test code = BA%) 0.6 % 0.2-1.0 N NUCLEATED RBC % (test code = 0.0 % 0-1.0 N NRBC%) NEUTROPHIL # (test code = NT#) 5.92 x10 3/uL 2.2-4.8 H IMMATURE GRANULOCYTE # (test 0.03 x10 3/uL 0-0.03 N code = IG#) LYMPHOCYTE # (test code = LY#) 1.35 x10 3/uL 1.3-2.9 N MONOCYTE # (test code = MO#) 0.55 x10 3/uL 0.3-0.8 N EOSINOPHIL # (test code = EO#) 0.01 x10 3/uL 0.0-0.2 N BASOPHIL # (test code = BA#) 0.05 x10 3/uL 0.0-0.1 N [id number] 20:22:00 Test Item Value Reference Range Interpretation Comments CKMB (test code = 0.99 ng/mL 0.5-5.0 N CKMBT) A positive bias m ay occur for patients ta lucero BIOTINsupplemen ts. LACTIC [id number] 20:07:00 Test Item Value Reference Range Interpretation Comments LACTIC ACID (test code = LACT) 2.3 mmol/L 0.7-2.0 BASIC METABOLIC [id number] 19:16:00 Test Item Value Reference Range Interpretation Comments SODIUM (test code = 135 mmol/L 137-145 L NA) POTASSIUM (test 3.3 mmol/L 3.4-5.0 L code = K) CHLORIDE (test code 102 mmol/L 98-107 N = CL) CARBON DIOXIDE 25 mmol/L 22-30 N (test code = CO2) ANION GAP (test 12 code = GAP) GLUCOSE (test code 149 mg/dL 74-106 H = GLU) BLOOD UREA NITROGEN 21 mg/dL 9-20 H (test code = BUN) GLOMERULAR 102 mL/min The Glomerular FILTRATION RATE Filtration R ate is a (test code = GFR) calculated parameterbased on serum Creatinin e, patient age and sex. GFR valuesless than 60 mL/min/1.73 squ are meters are allan cative ofChronic Kidne y Disease. Values less than 15 mL/min/1.73squa re meters indicate Kidney failure. The calculation for GFR is based on the CK D-EPI (2020) calculat ion. This formulais race indifferent and is the recommended for nita for GFRby the N ational Kidney Foundati on for Adults.The GFR will not calculate i f the sex is unknown or if thepatient's ag e is <18 years. CREATININE (test 0.6 mg/dL 0.7-1.3 L code = CREAT) CALCIUM (test code 8.9 mg/dL 8.4-10.2 N = CA) INDEX HEMOLYSIS < 15 Index/DL 0-100 N (test code = HEMINDEX) LIVER FUNCTION [id number] 19:16:00 Test Item Value Reference Range Interpretation Comments TOTAL PROTEIN (test 7.6 g/dL 6.3-8.2 N code = PROT) "A positive bias may occur for patients taking Eltrombopag(a b one marrow stimulan t used to treat thrombocy topenia andaplastic anemia)." ALBUMIN (test code = 4.0 g/dL 3.5-5.0 N ALB) BILIRUBIN TOTAL 2.7 mg/dL 0.2-1.3 H "A positive bias may (test code = BILT) occur for patients taking Eltrombo pag(a bone marrow sti mulant used to treat thrombocytopeni a andaplastic ane edson)." BILIRUBIN CONJUGATED 0 mg/dL 0-0.3 N "A posi tive bias may (test code = BILCON) occur f or patients taking Eltrombo pag(a bone marrow sti mulant used to treat thrombocytopeni a andaplastic ane edson)." CON JUGATED BILIRUBIN IS TH E REPLACEMENT ASS AY FOR DIRECTBILIRUBIN . BILIRUBIN 1.8 mg/dL 0-1.1 H UNCONJUGATED (test code = BILUNC) SGOT/AST (test code 88 U/L 15-46 H = AST) SGPT/ALT (test code 55 U/L 0-49 H = ALT) ALKALINE PHOSPHATASE 130 U/L 38-126 H (test code = ALKP) [id number] 19:16:00 Test Item Value Reference Range Interpretation Comments TROPONIN-I 0.047 ng/mL 0.012-0.033 H (test code = TROPI) Please be a dvised of the updated referen ce ranges for the new Building Certifier ry instrumentation . VITROS TROPO ARSH I CRITERIANORM AL PATIENT W/O CIRCULATING TNI: 0.012-0.033 ng/ mLCIRCULATING TNI PRESENT: 0. 034-0.119 ng/mL(MAY BE AT RISK OF AMI)AMI DIAGNOS TIC CUTOFF: >/= 0.120 ng/mL~~~~~~~~~~ ~~~~~~~~~~~~~ ~~~~~~~~~~~~~~~ ~~~~~~~~~~~~~ ~~~~~~~~The use of serial sampling and te sting protocol is are commended practice.An mauro vated troponin level alone is often not suffi cient fordiagnosis of myocardial infarction. Tro ponin results obtained by dif ferent assays may vary.Evalua tion of the extent of myoca rdial damage based onincreas e of troponin would be valid only if similarmethodol ogy is used.~~~~~~~~~~ ~~~~~~~~~~~~~ ~~~~~~~~~~~~~~~ ~~~~~~~~~~~~~ ~~~~~~~~ A POS ITIVE BIAS MAY OCCUR FOR P ATIENTS TAKING BIOTIN SUPPLEMENTS~~~~ ~~~~~~~~~~~~~ ~~~~~~~~~~~~~~~ ~~~~~~~~~~~~~ ~~~~~~~~~~~~~~ CBC W/AUTO [id number] 18:48:00 Test Item Value Reference Range Interpretation Comments WHITE BLOOD CELL (test code = 10.2 x10 3/uL 5.0-12.0 N WBC) RED BLOOD CELL (test code = 4.86 x10 6/uL 4.70-6.10 N RBC) HEMOGLOBIN (test code = HGB) 15.1 g/dL 14.0-18.0 N HEMATOCRIT (test code = HCT) 43.8 % 37.0-49.0 N MEAN CELL VOLUME (test code = 90 fL 80-94 N MCV) MEAN CELL HGB (test code = MCH) 31.1 pg 27-31 H MEAN CELL HGB CONCENTRATION 34.5 g/dL 33-37 N (test code = MCHC) RED CELL DISTRIBUTION WIDTH 14.2 % 11.5-15.5 N (test code = RDW) PLATELET COUNT (test code = 169 x10 3/uL 130-400 N PLT) MEAN PLATELET VOLUME (test code 9.5 fL 9.4-16.4 N = MPV) NEUTROPHIL % (test code = NT%) 78.1 % 43-65 H IMMATURE GRANULOCYTE % (test 0.6 % 0.0-2.0 N code = IG%) LYMPHOCYTE % (test code = LY%) 14.7 % 20.5-45.5 L MONOCYTE % (test code = MO%) 5.7 % 5.5-11.7 N EOSINOPHIL % (test code = EO%) 0.1 % 0.9-2.9 L BASOPHIL % (test code = BA%) 0.8 % 0.2-1.0 N NUCLEATED RBC % (test code = 0.0 % 0-1.0 N NRBC%) NEUTROPHIL # (test code = NT#) 7.95 x10 3/uL 2.2-4.8 H IMMATURE GRANULOCYTE # (test 0.06 x10 3/uL 0-0.03 H code = IG#) LYMPHOCYTE # (test code = LY#) 1.50 x10 3/uL 1.3-2.9 N MONOCYTE # (test code = MO#) 0.58 x10 3/uL 0.3-0.8 N EOSINOPHIL # (test code = EO#) 0.01 x10 3/uL 0.0-0.2 N BASOPHIL # (test code = BA#) 0.08 x10 3/uL 0.0-0.1 N - XR CHEST 1 [id number] 17:43:00 [facility] 1950 Sex: M FAX: Jennie Singleton [place]: St: PRE Name: SEYMOUR DICKERSON [facility] : 1950 Age/S: 71/M [address] Unit #: [id number] Loc: [place] [address] Phys: Jennie Singleton Acct: [id number] Dis Date:Status: PRE ER PHONE #: [phone] Exam Date: 05/22/2022 1735 FAX #: [phone] Reason: CODE SEPSIS EXAMS: CPT CODE: [id number] XR CHEST 1 V 83677 EXAMINATION: - XR CHEST 1 V HISTORY: Flulike symptoms COMPARISON: None. LOCATION CODE: C3 FINDINGS: Single frontal view of the chest is submitted for evaluation. There are moderate streaky opacities seen in both lungs, left more extensive than right, most likely reflecting multifocal pneumonia. Trace bilateral pleural effusions are also suspected. Cardiac silhouette and mediastinal contours are unremarkable. No acute bony abnormalities are identified. IMPRESSION: Findings likely reflecting a combination of multifocal pneumonia and trace bilateral pleural effusions at 1743 Reported and signed by: Shawna Sutton MD CC: Jennie Singleton Technologist: Bibi Macias Date/Time/By: 05/22/2022 (1743) : By: [email or web address] PAGE 1 Signed Report FAX: Jennie Singleton [place]: St: PRE----- Name: SEYMOUR DICKERSON [facility] : 1950 Age/S: 71/M [address] Unit #: [id number] Loc: [place] [address] Phys: Jennie Singleton Acct: [id number] Dis Date: Status: PRE ER PHONE #: [phone] Exam Date: 05/22/2022 1735 FAX #: [phone] Reason: CODE SEPSIS EXAMS: CPT CODE: [id number] XR CHEST 1 V 06104 (Continued) Orig Print D/T: S: 05/22/2022 (1746) PAGE 2 Signed [id number] 16:56:00 Test Item Value Reference Range Interpretation Comments GLUBED (test code = GLUBED) 171 MG/DL 74-106 H [id number] 11:49:00 Test Item Value Reference Range Interpretation Comments GLUBED (test code = GLUBED) 161 MG/DL 74-106 H [id number] 05:56:00 Test Item Value Reference Range Interpretation Comments GLUBED (test code = GLUBED) 112 MG/DL 74-106 H [id number] 21:07:00 Test Item Value Reference Range Interpretation Comments GLUBED (test code = GLUBED) 158 MG/DL 74-106 H [id number] 17:37:00 Test Item Value Reference Range Interpretation Comments GLUBED (test code = GLUBED) 120 MG/DL 74-106 H - CT ABD PELVIS [id number] 17:13:00 FAX: Darrick Zapata [facility] [phone] [place]: St: ADM FAX: Allie Mason [phone] - Name: SEYMOUR SNOW [facility] : 1950 Age/S: 69/M [address] Unit: [id number] Loc: [address] [place] [address] Phys: Allie Calle MD Acct: [id number] Dis Date: Status: ADM IN PHONE #: [phone] Exam Date: 10/19/2019 1703 FAX #: [phone] Reason: F/U ON ABSCESS EXAMS: CPT CODE: [id number] CT ABD PELVIS W/CONT 65817 Examination: CT scan abdomen and pelvis with contrast. Location code: H 60. TECHNIQUE: Multiple axial images of the abdomen and pelvis were obtained after intravenous and demonstration of contrast with sagittal and coronal reconstructions. CT examination was performed using automated dose reduction. 100 mL of Isovue 370 contrast was injected intravenously. Creatinine measures 0.5. GFR is greater than 60. COMPARISON: 10/03/2019. Discussion: Clinical history is significant for abscess in gallbladder fossa. Follow-up. When compared to the prior examination the abscess previously described in the gallbladder fossa is almost completely resolved. Some residual inflammatory changes are identified. No discrete abscess is remaining. A small cyst is identified in the right lobe liver unchanged in size. The remainder the liver, spleen, adrenal glands, pancreas and kidneys are normal in appearance. 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 No enlarged retroperitoneal, pelvicor inguinal adenopathy is identified. The bladder is moderately distended and is grossly unremarkable. No other abnormal masses or fluid collections identified within the abdomen and/or pelvis. A small -to-moderate right pleural effusion is identified with right basilar atelectasis. Small left pleuraleffusion is also noted. There are essentially unchanged or minimally increased in size. IMPRESSION: 1. Almost complete resolution of the fluid collection/abscess in the gallbladder fossa as detailed above. 2. Persistent bilateral pleural effusions with adjacent atelectatic changes. 3. Simple cyst in the right lobe liver. at 1713 Reported and signed by: Miller Tucker MD PAGE 1 Signed Report (CONTINUED) FAX: Darrick Zapata [phone] [place]: St: ADM FAX: Allie Mason [phone] Name: SEYMOUR SNOW [facility] : 1950 Age/S: 69/M [address] Unit: [id number] Loc: [address] [place] [address] Phys: Allie Calle MD Acct: [id number] Dis Date: Status: ADM IN PHONE #: [phone] Exam Date: 10/19/2019 1703 FAX #: [phone] Reason: F/U ON ABSCESS EXAMS: CPT CODE: [id number] CT ABD PELVIS W/CONT 08989 (Continued) CC: Darrick Benson; Allie Calle MD Technologist: Reba Roman Trnscrd Dt/Tm: 10/19/2019 (1713) [id number] Orig Print D/T: S: 10/19/2019 (1716 PAGE 2 Signed [id number] 11:25:00 Test Item Value Reference Range Interpretation Comments GLUBED (test code = GLUBED) 143 MG/DL 74-106 H [id number] 05:46:00 Test Item Value Reference Range Interpretation Comments GLUBED (test code = GLUBED) 114 MG/DL 74-106 H [id number] 21:22:00 Test Item Value Reference Range Interpretation Comments GLUBED (test code = GLUBED) 155 MG/DL 74-106 H [id number] 17:42:00 Test Item Value Reference Range Interpretation Comments GLUBED (test code = GLUBED) 148 MG/DL 74-106 H [id number] 11:35:00 Test Item Value Reference Range Interpretation Comments GLUBED (test code = GLUBED) 186 MG/DL 74-106 H [id number] 05:30:00 Test Item Value Reference Range Interpretation Comments GLUBED (test code = GLUBED) 105 MG/DL 74-106 N [id number] 20:53:00 Test Item Value Reference Range Interpretation Comments GLUBED (test code = GLUBED) 135 MG/DL 74-106 H [id number] 16:32:00 Test Item Value Reference Range Interpretation Comments GLUBED (test code = GLUBED) 138 MG/DL 74-106 H [id number] 11:19:00 Test Item Value Reference Range Interpretation Comments GLUBED (test code = GLUBED) 148 MG/DL 74-106 H [id number] 05:44:00 Test Item Value Reference Range Interpretation Comments GLUBED (test code = GLUBED) 106 MG/DL 74-106 N [id number] 21:32:00 Test Item Value Reference Range Interpretation Comments GLUBED (test code = GLUBED) 164 MG/DL 74-106 H [id number] 18:31:00 Test Item Value Reference Range Interpretation Comments GLUBED (test code = GLUBED) 128 MG/DL 74-106 H [id number] 11:46:00 Test Item Value Reference Range Interpretation Comments GLUBED (test code = GLUBED) 176 MG/DL 74-106 H [id number] 05:46:00 Test Item Value Reference Range Interpretation Comments GLUBED (test code = GLUBED) 116 MG/DL 74-106 H [id number] 21:00:00 Test Item Value Reference Range Interpretation Comments GLUBED (test code = GLUBED) 167 MG/DL 74-106 H [id number] 17:36:00 Test Item Value Reference Range Interpretation Comments GLUBED (test code = GLUBED) 124 MG/DL 74-106 H [id number] 12:35:00 Test Item Value Reference Range Interpretation Comments GLUBED (test code = GLUBED) 198 MG/DL 74-106 H [id number] 05:47:00 Test Item Value Reference Range Interpretation Comments GLUBED (test code = GLUBED) 112 MG/DL 74-106 H [id number] 02:39:00 Test Item Value Reference Range Interpretation Comments CREATININE (test code = CREAT) < 0.5 mg/dL 0.7-1.3 L CBC W/AUTO [id number] 02:15:00 Test Item Value Reference Range Interpretation Comments WHITE BLOOD CELL (test code = 6.0 x10 3/uL 5.0-12.0 N WBC) RED BLOOD CELL (test code = 3.26 x10 6/uL 4.70-6.10 L RBC) HEMOGLOBIN (test code = HGB) 10.2 g/dL 14.0-18.0 L HEMATOCRIT (test code = HCT) 29.2 % 37.0-49.0 L MEAN CELL VOLUME (test code = 90 fL 80-94 N MCV) MEAN CELL HGB (test code = MCH) 31.3 pg 27-31 H MEAN CELL HGB CONCENTRATION 34.9 g/dL 33-37 N (test code = MCHC) RED CELL DISTRIBUTION WIDTH 12.8 % 11.5-15.5 N (test code = RDW) PLATELET COUNT (test code = 333 x10 3/uL 130-400 N PLT) MEAN PLATELET VOLUME (test code 8.9 fL 9.4-16.4 L = MPV) NEUTROPHIL % (test code = NT%) 53.4 % 43-65 N IMMATURE GRANULOCYTE % (test 0.3 % 0.0-2.0 N code = IG%) LYMPHOCYTE % (test code = LY%) 31.5 % 20.5-45.5 N MONOCYTE % (test code = MO%) 10.5 % 5.5-11.7 N EOSINOPHIL % (test code = EO%) 3.3 % 0.9-2.9 H BASOPHIL % (test code = BA%) 1.0 % 0.2-1.0 N NUCLEATED RBC % (test code = 0.0 % 0-1.0 N NRBC%) NEUTROPHIL # (test code = NT#) 3.20 x10 3/uL 2.2-4.8 N IMMATURE GRANULOCYTE # (test 0.02 x10 3/uL 0-0.03 N code = IG#) LYMPHOCYTE # (test code = LY#) 1.89 x10 3/uL 1.3-2.9 N MONOCYTE # (test code = MO#) 0.63 x10 3/uL 0.3-0.8 N EOSINOPHIL # (test code = EO#) 0.20 x10 3/uL 0.0-0.2 N BASOPHIL # (test code = BA#) 0.06 x10 3/uL 0.0-0.1 N [id number] 20:35:00 Test Item Value Reference Range Interpretation Comments GLUBED (test code = GLUBED) 144 MG/DL 74-106 H [id number] 17:34:00 Test Item Value Reference Range Interpretation Comments GLUBED (test code = GLUBED) 144 MG/DL 74-106 H [id number] 11:57:00 Test Item Value Reference Range Interpretation Comments GLUBED (test code = GLUBED) 143 MG/DL 74-106 H [id number] 06:18:00 Test Item Value Reference Range Interpretation Comments GLUBED (test code = GLUBED) 110 MG/DL 74-106 H [id number] 21:46:00 Test Item Value Reference Range Interpretation Comments GLUBED (test code = GLUBED) 160 MG/DL 74-106 H [id number] 17:25:00 Test Item Value Reference Range Interpretation Comments GLUBED (test code = GLUBED) 144 MG/DL 74-106 H [id number] 11:57:00 Test Item Value Reference Range Interpretation Comments GLUBED (test code = GLUBED) 164 MG/DL 74-106 H [id number] 06:09:00 Test Item Value Reference Range Interpretation Comments GLUBED (test code = GLUBED) 120 MG/DL 74-106 H [id number] 21:32:00 Test Item Value Reference Range Interpretation Comments GLUBED (test code = GLUBED) 137 MG/DL 74-106 H [id number] 17:24:00 Test Item Value Reference Range Interpretation Comments GLUBED (test code = GLUBED) 122 MG/DL 74-106 H [id number] 11:27:00 Test Item Value Reference Range Interpretation Comments GLUBED (test code = GLUBED) 223 MG/DL 74-106 H BASIC METABOLIC [id number] 05:37:00 Test Item Value Reference Range Interpretation Comments SODIUM (test code = 134 mmol/L 137-145 L NA) POTASSIUM (test code 3.6 mmol/L 3.4-5.0 N = K) CHLORIDE (test code 94 mmol/L 98-107 L = CL) CARBON DIOXIDE (test 33 mmol/L 22-30 H code = CO2) GLUCOSE (test code = 109 mg/dL 74-106 H GLU) BLOOD UREA NITROGEN 7 mg/dL 9-20 L (test code = BUN) GLOMERULAR 174 >60 The estimated FILTRATION RATE glomerular f iltration (test code = GFR) rate is co mputed usingpatient ra ce, age (>18), sex, and serum creatinine. If anyof the needed data elements are mi ssing the Laboratory cannot compute an gwendolyn mation of the glomerul ar filtration rate . CREATININE (test < 0.5 mg/dL 0.7-1.3 L code = CREAT) CALCIUM (test code = 8.1 mg/dL 8.4-10.2 L CA) [id number] 05:33:00 Test Item Value Reference Range Interpretation Comments GLUBED (test code = GLUBED) 118 MG/DL 74-106 H [id number] 21:05:00 Test Item Value Reference Range Interpretation Comments GLUBED (test code = GLUBED) 159 MG/DL 74-106 H [id number] 17:32:00 Test Item Value Reference Range Interpretation Comments GLUBED (test code = GLUBED) 145 MG/DL 74-106 H - XR CHEST 1 [id number] 16:12:00 FAX: Darrick Zapata [phone] [place]: St: ADM FAX: N Shola Cuba DO [phone] -------- [facility] 1950 Age/S: 69/M [address] Unit #: [id number] Loc: C.66[address] [place] [address] Phys: Shola Cuba DO Acct: [id number] Dis Date: Status: ADM IN PHONE #: [phone] Exam Date: 10/11/2019 1445 FAX #: [phone] Reason: FOLLOW UP EXAMS: CPT CODE: [id number] XR CHEST 1 V 19580 EXAM: Portable chest x-ray Dictation location: T18 COMPARISON: Chest x-ray on 10/03/2019 and chestx-ray on 10/02/2019 INDICATION: FOLLOW UP DISCUSSION: There is partial consolidation at the right lung base and left cardiac region, and discoid atelectasis over the mid to lower lungs bilaterally. A small to moderate-sized right pleural effusion is seen. The cardiac silhouette is within normal limits.No acute bony abnormalities are identified. IMPRESSION: 1. Small to moderate-sized right pleural effusion, slightly increased. 2. Bibasilar partial consolidation, probably due to atelectasis. Pneumoniais not entirely excluded. at 1612 Reported and signed by: Donnie Blackwell MD CC: Darrick Benson; Shola Niño Technologist: Bibi Macias Date/Time/By: 10/11/2019 (3402) : By: [email or web address] PAGE 1 Signed Report FAX: Darrick Zapata [phone] [place]: St: ADM FAX: Shola Lemus DO [phone] Name: [facility] :1950 Age/S: 69/M [address] Unit #: [id number] Loc: C.[address] [place] [address] Phys: Shola Cuba DO Acct: [id number] Dis Date: Status: ADM IN PHONE #: [phone] Exam Date: 10/11/2019 1445 FAX #: [phone] Reason: FOLLOW UP EXAMS: CPT CODE: [id number] XR CHEST 1 V 24889 (Continued) OrigPrint D/T: S: 10/11/2019 (161) PAGE 2 Signed [id number] 11:55:00 Test Item Value Reference Range Interpretation Comments GLUBED (test code = GLUBED) 156 MG/DL 74-106 H [id number] 06:04:00 Test Item Value Reference Range Interpretation Comments GLUBED (test code = GLUBED) 132 MG/DL 74-106 H [id number] 20:54:00 Test Item Value Reference Range Interpretation Comments GLUBED (test code = GLUBED) 146 MG/DL 74-106 H [id number] 17:47:00 Test Item Value Reference Range Interpretation Comments GLUBED (test code = GLUBED) 134 MG/DL 74-106 H - XR C-SPINE 2-3 [id number] 17:38:00 FAX: Darrick Zapata [phone] [place]: St: ADM FAX: N Shola Cuba DO [phone] -------- [facility] 1950 Age/S: 69/M [address] Unit #: [id number] Loc: C.[address] [place] [address] Phys: Rosa ElenaParthaBig Horn DO Acct: [id number] Dis Date: Status: ADM IN PHONE #: [phone] Exam Date: 10/10/2019 1653 FAX #: [phone] Reason: NECK PAIN EXAMS: CPT CODE: [id number] XR C-SPINE 2-3VIEWS 39591 EXAM: Cervical spine series, 4 views Dictation location: T18 INDICATION: Neck pain COMPARISON: None DISCUSSION: AP, lateral, swimmer's, and open mouth odontoid views of the cervical spine are submitted. The odontoid is obscured. The lower cervical spine is obscured on both the lateral and swimmer's views due to overlying soft tissues. There is no obvious fracture or mass in the lower cervical spine on the frontal view. Mild reversal of cervical lordosis is seen on the lateral view. Visualized disc spaces from C2-3 through C5-6 on the lateral view appear well-preserved. Moderate multilevel facet arthrosis is noted. Uncovertebral joints are suboptimally evaluated. Prevertebral soft tissues are unremarkable. There is evidence of partial atelectasis in the right lung on the frontal image. IMPRESSION: 1. Somewhat limited evaluation below the C5-6 disc level due to overlying soft tissues on both the lateral and swimmer's views. There is no obvious fracture of these obscured levels based on the frontal view. The odontoid is also obscured. 2. Moderate multilevel facet arthrosis. Mild reversal of cervical lordosis. 3. Disc space height appears well preserved from C2-3 through C5-6. 4. Suspected partial atelectasis in the mid to lower right lung. at 1738 Reported and signed by: Donnie Blackwell MD CC: Darrick Benson; Shola Niño Technologist: Gabriella Rouse Trnscrd Date/Time/By: 10/10/2019 (3183) : By: [email or web address] PAGE 1 Signed Report FAX: Darrick Zapata [phone] [place]: St: ADM FAX: N Shola Cuba DO [phone] Name: [facility] : 1950 Age/S: 69/M [address] Unit #: [id number] Loc: C.[address] [place] [address] Phys: Shola Cuba DO Acct: [id number] Dis Date: Status: ADM IN PHONE #: [phone] Exam Date: 10/10/2019 1653 FAX #: [phone] Reason: NECK PAIN EXAMS: CPT CODE: [id number] XR C-SPINE 2-3 VIEWS 42994 (Continued) Orig Print D/T: S: 10/10/2019 (0670) PAGE 2 Signed [id number] 11:32:00 Test Item Value Reference Range Interpretation Comments GLUBED (test code = GLUBED) 156 MG/DL 74-106 H [id number] 06:16:00 Test Item Value Reference Range Interpretation Comments GLUBED (test code = GLUBED) 154 MG/DL 74-106 H [id number] 21:12:00 Test Item Value Reference Range Interpretation Comments GLUBED (test code = GLUBED) 121 MG/DL 74-106 H [id number] 16:57:00 Test Item Value Reference Range Interpretation Comments GLUBED (test code = GLUBED) 135 MG/DL 74-106 H [id number] 11:45:00 Test Item Value Reference Range Interpretation Comments GLUBED (test code = GLUBED) 190 MG/DL 74-106 H [id number] 06:01:00 Test Item Value Reference Range Interpretation Comments GLUBED (test code = GLUBED) 141 MG/DL 74-106 H [id number] 21:55:00 Test Item Value Reference Range Interpretation Comments GLUBED (test code = GLUBED) 175 MG/DL 74-106 H [id number] 17:19:00 Test Item Value Reference Range Interpretation Comments GLUBED (test code = GLUBED) 187 MG/DL 74-106 H [id number] 11:12:00 Test Item Value Reference Range Interpretation Comments GLUBED (test code = GLUBED) 191 MG/DL 74-106 H [id number] 05:40:00 Test Item Value Reference Range Interpretation Comments GLUBED (test code = GLUBED) 130 MG/DL 74-106 H [id number] 21:11:00 Test Item Value Reference Range Interpretation Comments GLUBED (test code = GLUBED) 170 MG/DL 74-106 H [id number] 17:29:00 Test Item Value Reference Range Interpretation Comments GLUBED (test code = GLUBED) 180 MG/DL 74-106 H [id number] 11:49:00 Test Item Value Reference Range Interpretation Comments GLUBED (test code = GLUBED) 181 MG/DL 74-106 H [id number] 05:55:00 Test Item Value Reference Range Interpretation Comments GLUBED (test code = GLUBED) 126 MG/DL 74-106 H [id number] 20:58:00 Test Item Value Reference Range Interpretation Comments GLUBED (test code = GLUBED) 151 MG/DL 74-106 H URINALYSIS [id number] 19:51:00 Test Item Value Reference Range Interpretation Comments UA COLOR (test code = COLU) Yellow Yellow UA APPEARANCE (test code = Clear Clear APPU) UA GLUCOSE DIPSTICK (test code Negative Negative = DGLUU) UA BILIRUBIN DIPSTICK (test Negative Negative code = BILU) UA KETONE DIPSTICK (test code Negative mg/dL Negative = KETU) UA SPECIFIC GRAVITY (test code 1.015 <1.030 = SGU) UA BLOOD DIPSTICK (test code = Negative Negative BUTCH) UA PH DIPSTICK (test code = 6.0 5.0-8.0 ECHO) UA PROTEIN DIPSTICK (test code NEGATIVE mg/dL Negative = PROU) UA UROBILINOGEN DIPSTICK (test 4.0 mg/dL Negative A code = URO) UA NITRITE DIPSTICK (test code Negative Negative = SHANDA) UA LEUKOCYTE ESTERASE DIPSTICK NEGATIVE Negative (test code = LEUU) UA WBC (test code = WBCU) 0-3 /HPF <4-5 UA RBC (test code = RBCU) 0-3 /HPF <4-5 UA BACTERIA (test code = BACU) None /HPF None-Rare UA MUCUS (test code = MUCU) Rare /LPF <Rare COMPREHENSIVE METABOLIC [id number] 18:49:00 Test Item Value Reference Range Interpretation Comments SODIUM (test code = 131 mmol/L 137-145 L NA) POTASSIUM (test code = 3.5 mmol/L 3.4-5.0 N K) CHLORIDE (test code = 92 mmol/L 98-107 L CL) CARBON DIOXIDE (test 33 mmol/L 22-30 H code = CO2) GLUCOSE (test code = 170 mg/dL 74-106 H GLU) BLOOD UREA NITROGEN 7 mg/dL 9-20 L (test code = BUN) GLOMERULAR FILTRATION 174 >60 The es timated RATE (test code = GFR) glome rular filtration rate is compute d usingpatient ra ce, age (>18), sex, and serum creatinin e. If anyof the neede d data elements are mi ssing the Laboratory cannot compute an gwendolyn mation of the glomerul ar filtration rate . CREATININE (test code 0.5 mg/dL 0.7-1.3 L = CREAT) TOTAL PROTEIN (test 6.3 g/dL 6.3-8.2 N code = PROT) ALBUMIN (test code = 2.9 g/dL 3.5-5.0 L ALB) CALCIUM (test code = 7.7 mg/dL 8.4-10.2 L CA) BILIRUBIN TOTAL (test 0.8 mg/dL 0.2-1.3 N code = BILT) BILIRUBIN CONJUGATED 0 mg/dL 0-0.3 N ~~~~~~~ ~~~~~~~~~~~~~~ (test code = BILCON) ~~~~~~~ ~~~~~~~~~~~~~~ ~~~~~~~~~~~~~~~ ~~~CON JUGATED BILIRUB IN IS THE REPLACEMENT ASSAY FOR DIRECTBILIRUBIN .~~~~~ ~~~~~~~~~~~~~~~ ~~~~~~ ~~~~~~~~~~~~~~~ ~~~~~~ ~~~~~~~~~~~~~ BILIRUBIN UNCONJUGATED 0.4 mg/dL 0-1.1 N (test code = BILUNC) SGOT/AST (test code = 44 U/L 15-46 N AST) SGPT/ALT (test code = 43 U/L 13-69 N ALT) ALKALINE PHOSPHATASE 228 U/L 38-126 H (test code = ALKP) CBC W/AUTO [id number] 18:34:00 Test Item Value Reference Range Interpretation Comments WHITE BLOOD CELL (test code = 7.8 x10 3/uL 5.0-12.0 N WBC) RED BLOOD CELL (test code = 3.25 x10 6/uL 4.70-6.10 L RBC) HEMOGLOBIN (test code = HGB) 10.1 g/dL 14.0-18.0 L HEMATOCRIT (test code = HCT) 29.9 % 37.0-49.0 L MEAN CELL VOLUME (test code = 92 fL 80-94 N MCV) MEAN CELL HGB (test code = MCH) 31.1 pg 27-31 H MEAN CELL HGB CONCENTRATION 33.8 g/dL 33-37 N (test code = MCHC) RED CELL DISTRIBUTION WIDTH 13.1 % 11.5-15.5 N (test code = RDW) PLATELET COUNT (test code = 248 x10 3/uL 130-400 N PLT) MEAN PLATELET VOLUME (test code 9.1 fL 9.4-16.4 L = MPV) NEUTROPHIL % (test code = NT%) 65.8 % 43-65 H IMMATURE GRANULOCYTE % (test 0.5 % 0.0-2.0 N code = IG%) LYMPHOCYTE % (test code = LY%) 19.6 % 20.5-45.5 L MONOCYTE % (test code = MO%) 8.6 % 5.5-11.7 N EOSINOPHIL % (test code = EO%) 5.0 % 0.9-2.9 H BASOPHIL % (test code = BA%) 0.5 % 0.2-1.0 N NUCLEATED RBC % (test code = 0.0 % 0-1.0 N NRBC%) NEUTROPHIL # (test code = NT#) 5.12 x10 3/uL 2.2-4.8 H IMMATURE GRANULOCYTE # (test 0.04 x10 3/uL 0-0.03 H code = IG#) LYMPHOCYTE # (test code = LY#) 1.53 x10 3/uL 1.3-2.9 N MONOCYTE # (test code = MO#) 0.67 x10 3/uL 0.3-0.8 N EOSINOPHIL # (test code = EO#) 0.39 x10 3/uL 0.0-0.2 H BASOPHIL # (test code = BA#) 0.04 x10 3/uL 0.0-0.1 N [id number] 15:36:00 Test Item Value Reference Range Interpretation Comments MAGNESIUM (test code = MAG) 1.8 mg/dL 1.6-2.3 N [id number] 15:33:00 Test Item Value Reference Range Interpretation Comments GLUBED (test code = GLUBED) 237 MG/DL 74-106 H [id number] 12:00:00 Test Item Value Reference Range Interpretation Comments GLUBED (test code = GLUBED) 199 MG/DL 74-106 H [id number] 06:01:00 Test Item Value Reference Range Interpretation Comments GLUBED (test code = GLUBED) 125 MG/DL 74-106 H COMPREHENSIVE METABOLIC [id number] 03:57:00 Test Item Value Reference Range Interpretation Comments SODIUM (test code = 131 mmol/L 137-145 L NA) POTASSIUM (test code 3.6 mmol/L 3.4-5.0 N = K) CHLORIDE (test code = 95 mmol/L 98-107 L CL) CARBON DIOXIDE (test 32 mmol/L 22-30 H code = CO2) GLUCOSE (test code = 124 mg/dL 74-106 H GLU) BLOOD UREA NITROGEN 7 mg/dL 9-20 L (test code = BUN) GLOMERULAR FILTRATION 174 >60 The es timated RATE (test code = glomerular filtration GFR) rate is compute d usingpatient ra ce, age (>18), sex, and serum creatinin e. If anyof the neede d data elements are mi ssing the Laboratory cannot compute an gwendolyn mation of the glomerul ar filtration rate . CREATININE (test code < 0.5 mg/dL 0.7-1.3 L = CREAT) TOTAL PROTEIN (test 6.1 g/dL 6.3-8.2 L code = PROT) ALBUMIN (test code = 2.8 g/dL 3.5-5.0 L ALB) CALCIUM (test code = 7.7 mg/dL 8.4-10.2 L CA) BILIRUBIN TOTAL (test 1.1 mg/dL 0.2-1.3 N code = BILT) BILIRUBIN CONJUGATED 0 mg/dL 0-0.3 N ~~~~~~~ ~~~~~~~~~~~~~~ (test code = BILCON) ~~~~~~~ ~~~~~~~~~~~~~~ ~~~~~~~~~~~~~~~ ~~~CON JUGATED BILIRUB IN IS THE REPLACEMENT ASSAY FOR DIRECTBILIRUBIN .~~~~~ ~~~~~~~~~~~~~~~ ~~~~~~ ~~~~~~~~~~~~~~~ ~~~~~~ ~~~~~~~~~~~~~ BILIRUBIN 0.5 mg/dL 0-1.1 N UNCONJUGATED (test code = BILUNC) SGOT/AST (test code = 44 U/L 15-46 N AST) SGPT/ALT (test code = 42 U/L 13-69 N ALT) ALKALINE PHOSPHATASE 221 U/L 38-126 H (test code = ALKP) [id number] 03:57:00 Test Item Value Reference Range Interpretation Comments MAGNESIUM (test code = MAG) 1.0 mg/dL 1.6-2.3 L CBC W/AUTO [id number] 03:42:00 Test Item Value Reference Range Interpretation Comments WHITE BLOOD CELL (test code = 7.8 x10 3/uL 5.0-12.0 N WBC) RED BLOOD CELL (test code = 3.28 x10 6/uL 4.70-6.10 L RBC) HEMOGLOBIN (test code = HGB) 10.1 g/dL 14.0-18.0 L HEMATOCRIT (test code = HCT) 29.8 % 37.0-49.0 L MEAN CELL VOLUME (test code = 91 fL 80-94 N MCV) MEAN CELL HGB (test code = MCH) 30.8 pg 27-31 N MEAN CELL HGB CONCENTRATION 33.9 g/dL 33-37 N (test code = MCHC) RED CELL DISTRIBUTION WIDTH 12.9 % 11.5-15.5 N (test code = RDW) PLATELET COUNT (test code = 220 x10 3/uL 130-400 N PLT) MEAN PLATELET VOLUME (test code 9.0 fL 9.4-16.4 L = MPV) NEUTROPHIL % (test code = NT%) 67.5 % 43-65 H IMMATURE GRANULOCYTE % (test 0.6 % 0.0-2.0 N code = IG%) LYMPHOCYTE % (test code = LY%) 18.6 % 20.5-45.5 L MONOCYTE % (test code = MO%) 7.3 % 5.5-11.7 N EOSINOPHIL % (test code = EO%) 5.2 % 0.9-2.9 H BASOPHIL % (test code = BA%) 0.8 % 0.2-1.0 N NUCLEATED RBC % (test code = 0.0 % 0-1.0 N NRBC%) NEUTROPHIL # (test code = NT#) 5.24 x10 3/uL 2.2-4.8 H IMMATURE GRANULOCYTE # (test 0.05 x10 3/uL 0-0.03 H code = IG#) LYMPHOCYTE # (test code = LY#) 1.44 x10 3/uL 1.3-2.9 N MONOCYTE # (test code = MO#) 0.57 x10 3/uL 0.3-0.8 N EOSINOPHIL # (test code = EO#) 0.40 x10 3/uL 0.0-0.2 H BASOPHIL # (test code = BA#) 0.06 x10 3/uL 0.0-0.1 N [id number] 20:50:00 Test Item Value Reference Range Interpretation Comments GLUBED (test code = GLUBED) 160 MG/DL 74-106 H [id number] 16:31:00 Test Item Value Reference Range Interpretation Comments GLUBED (test code = GLUBED) 217 MG/DL 74-106 H [id number] 12:02:00 Test Item Value Reference Range Interpretation Comments GLUBED (test code = GLUBED) 224 MG/DL 74-106 H COMPREHENSIVE METABOLIC [id number] 06:13:00 Test Item Value Reference Range Interpretation Comments SODIUM (test code = 136 mmol/L 137-145 L NA) POTASSIUM (test code = 3.6 mmol/L 3.4-5.0 N K) CHLORIDE (test code = 98 mmol/L 98-107 N CL) CARBON DIOXIDE (test 31 mmol/L 22-30 H code = CO2) GLUCOSE (test code = 121 mg/dL 74-106 H GLU) BLOOD UREA NITROGEN 4 mg/dL 9-20 L (test code = BUN) GLOMERULAR FILTRATION 174 >60 The es timated RATE (test code = GFR) glome rular filtration rate is compute d usingpatient ra ce, age (>18), sex, and serum creatinin e. If anyof the neede d data elements are mi ssing the Laboratory cannot compute an gwendolyn mation of the glomerul ar filtration rate . CREATININE (test code 0.5 mg/dL 0.7-1.3 L = CREAT) TOTAL PROTEIN (test 5.9 g/dL 6.3-8.2 L code = PROT) ALBUMIN (test code = 2.7 g/dL 3.5-5.0 L ALB) CALCIUM (test code = 8.0 mg/dL 8.4-10.2 L CA) BILIRUBIN TOTAL (test 1.1 mg/dL 0.2-1.3 N code = BILT) BILIRUBIN CONJUGATED 0 mg/dL 0-0.3 N ~~~~~~~ ~~~~~~~~~~~~~~ (test code = BILCON) ~~~~~~~ ~~~~~~~~~~~~~~ ~~~~~~~~~~~~~~~ ~~~CON JUGATED BILIRUB IN IS THE REPLACEMENT ASSAY FOR DIRECTBILIRUBIN .~~~~~ ~~~~~~~~~~~~~~~ ~~~~~~ ~~~~~~~~~~~~~~~ ~~~~~~ ~~~~~~~~~~~~~ BILIRUBIN UNCONJUGATED 0.6 mg/dL 0-1.1 N (test code = BILUNC) SGOT/AST (test code = 44 U/L 15-46 N AST) SGPT/ALT (test code = 43 U/L 13-69 N ALT) ALKALINE PHOSPHATASE 223 U/L 38-126 H (test code = ALKP) [id number] 05:57:00 Test Item Value Reference Range Interpretation Comments GLUBED (test code = GLUBED) 122 MG/DL 74-106 H CBC W/AUTO [id number] 05:45:00 Test Item Value Reference Range Interpretation Comments WHITE BLOOD CELL (test code = 8.3 x10 3/uL 5.0-12.0 N WBC) RED BLOOD CELL (test code = 3.26 x10 6/uL 4.70-6.10 L RBC) HEMOGLOBIN (test code = HGB) 10.2 g/dL 14.0-18.0 L HEMATOCRIT (test code = HCT) 29.7 % 37.0-49.0 L MEAN CELL VOLUME (test code = 91 fL 80-94 N MCV) MEAN CELL HGB (test code = MCH) 31.3 pg 27-31 H MEAN CELL HGB CONCENTRATION 34.3 g/dL 33-37 N (test code = MCHC) RED CELL DISTRIBUTION WIDTH 13.1 % 11.5-15.5 N (test code = RDW) PLATELET COUNT (test code = 233 x10 3/uL 130-400 N PLT) MEAN PLATELET VOLUME (test code 9.6 fL 9.4-16.4 N = MPV) NEUTROPHIL % (test code = NT%) 70.7 % 43-65 H IMMATURE GRANULOCYTE % (test 0.5 % 0.0-2.0 N code = IG%) LYMPHOCYTE % (test code = LY%) 18.0 % 20.5-45.5 L MONOCYTE % (test code = MO%) 6.8 % 5.5-11.7 N EOSINOPHIL % (test code = EO%) 3.4 % 0.9-2.9 H BASOPHIL % (test code = BA%) 0.6 % 0.2-1.0 N NUCLEATED RBC % (test code = 0.0 % 0-1.0 N NRBC%) NEUTROPHIL # (test code = NT#) 5.87 x10 3/uL 2.2-4.8 H IMMATURE GRANULOCYTE # (test 0.04 x10 3/uL 0-0.03 H code = IG#) LYMPHOCYTE # (test code = LY#) 1.49 x10 3/uL 1.3-2.9 N MONOCYTE # (test code = MO#) 0.56 x10 3/uL 0.3-0.8 N EOSINOPHIL # (test code = EO#) 0.28 x10 3/uL 0.0-0.2 H BASOPHIL # (test code = BA#) 0.05 x10 3/uL 0.0-0.1 N [id number] 21:12:00 Test Item Value Reference Range Interpretation Comments GLUBED (test code = GLUBED) 194 MG/DL 74-106 H [id number] 16:28:00 Test Item Value Reference Range Interpretation Comments TROPONIN-I < 0.012 ng/mL 0.012-0.033 L (test code = TROPI) Please be advised of the updated ref erence ranges for the new Chemistry instrumentation . VITROS TROPO ARSH I CRITERIANORM AL PATIENT W/O CIRCULATING TNI: 0.012-0.033 ng/mLCIRCULATIN G TNI PRESENT: 0.034- 0.119 ng/mL(MAY BE AT RISK OF AMI)AMI DIAGNOS TIC CUTOFF: >/= 0.120 ng/mL~~~~~~~~~~ ~~~~~~~~~~~~ ~~~~~~~~~~~~~~~ ~~~~~~~~~~~~ ~~~~~~~~~~The u se of serial sampling and te sting protocol is are commended practice.An muaro vated troponin level alone is often not suffi cient fordiagnosis of myocardial infarction. Tro ponin results obtaine d by different assay s may vary.Evaluation of the extent of myoca rdial damage based onincreas e of troponin would be valid only if similar methodology is used.~~~~~~~~~~ ~~~~~~~~~~~~ ~~~~~~~~~~~~~~~ ~~~~~~~~~~~~ ~~~~~~~~~~ [id number] 16:19:00 Test Item Value Reference Range Interpretation Comments GLUBED (test code = GLUBED) 203 MG/DL 74-106 H - US ABDOMEN [id number] 15:42:00 FAX: Lizzy Petersen MD [phone] [place]: St: ADM Name: [facility] : 1950 Age/S: 69/M [address] Unit #: [id number] Loc: C.[address] [place] [address] Phys: Jake Grant MD Acct:[id number] Dis Date: Status: ADM IN PHONE #: [phone] Exam Date: 10/04/2019 1301 FAX #: [phone] Reason: ABD PAIN EXAMS: CPT CODE: [id number] US ABDOMEN LTD 68428 ULTRASOUND- GUIDED ASPIRATIONAND DRAINAGE OF RIGHT UPPER QUADRANT, GALLBLADDER FOSSA. CPT code: 78730, 23992 INDICATION: Abdomen,Gallbladder Fossa LOCATION: [facility] [place] [facility] [place] AGE: 69 years, Male COMPARISON: None INFORMED CONSENT: After thorough discussion of procedure, alternatives, risks and expected benefits, an informed consent was obtained. Discussion specifically included risk for infection, bleeding, pneumothorax, and bowel or liver injury. LABS: Pre-procedure review of labs reveals PT, PTT, INR and platelet count to be within acceptable range. TECHNIQUE: Timeout for patient's safety was performed. Utilizing sterile technique and sonographic guidance, a 18 needle was utilized. 0.035 in guidewire was placed in position. Tract was further dilated using a 8 and 10 dilator followed by placement of a 10-Ugandan pigtail catheter. Catheter was secured with 2-0 Prolene and connected to a drainage bag. Aspiration of approximately 10 mL of bloody purulent fluid. Specimen was sent to microbiology for analysis. Patient tolerated procedure well without a complication. No conscious sedation was required. DISCUSSION: Preliminary ultrasound Demonstrate presence of a fluid collection with internal debris and multiple small air pocket compatible with abscess adjacent to the gallbladder fossa. IMPRESSION Successful ultrasound-guided aspiration and drainage catheter placement of abdominal fluid. Fluid was sent to microbiology for PAGE 1 Signed Report (CONTINUED) FAX: Lizzy Petersen MD [phone] [place]: St: ADM Name: [facility] : 1950 Age/S: 69/M [address] Unit #: [id number] Loc: [address] [place] [address] Phys:Jake Grant MD Acct: [id number] Dis Date: Status: ADM IN PHONE #: [phone] Exam Date: 2019 1301 FAX #: [phone] Reason: ABD PAIN EXAMS: CPT CODE: [id number] US ABDOMEN LTD 76088 (Continued) analysis. at 1542 Reported and signed by: Jake Grant M.D. CC: Lizzy Duke MD Technologist: Jaswinder Swanson RDMS Trnscrd Date/Time/By: 10/04/2019 (3962) : By: WesHPMaria Fernanda PAGE 2 Signed Report FAX: Lizzy Petersen MD [phone] [place]: St: A DM - Name: [facility] : 1950 Age/S: 69/M [address] Unit #: [id number] Loc: [place] [address] Phys: Jake Grant MD Acct: [id number] Dis Date: Status: ADM IN PHONE #: [phone] Exam Date: 10/04/2019 1301 FAX #: [phone] Reason: ABD PAIN EXAMS: CPT CODE: [id number] US ABDOMEN LTD 61241 (Continued) Orig Print D/T: S: 10/04/2019 (3438) PAGE 3 Signed Report- USG NDL PLACEMENT (Bxg/Asp)2019-10-04 15:42:00 FAX: Juliana Weber [phone] [place]: [facility]: ADM FAX: Lizzy Petersen MD [phone] ------- Name: [facility] : 1950 Age/S: 69/M [address] Unit #: [id number] Loc: C.[address] [place] [address] Phys: Juliana Weber Acct: [id number] Dis Date: Status: ADM IN PHONE #: [phone] Exam Date: 10/04/2019 1300 FAX #: [phone] Reason: Abdomen, Gallbladder Fossa EXAMS: CPT CODE: [id number] USG NDL PLACEMENT (Bxg/Asp) 87189 ULTRASOUND-GUIDED ASPIRATION AND DRAINAGE OF RIGHT UPPERQUADRANT, GALLBLADDER FOSSA. CPT code: 51598, 36443 INDICATION: Abdomen, Gallbladder Fossa LOCATION: [facility] AGE: 69 years, Male COMPARISON: None INFORMED CONSENT: After thorough discussion of procedure, alternatives, risks and expected benefits, an informed consent was obtained. Discussion specifically included risk for infection, bleeding, pneumothorax, and bowel or liver injury. LABS: Pre-procedure review of labs reveals PT, PTT, INR and platelet count to be within acceptable range. TECHNIQUE:Timeout for patient's safety was performed. Utilizing sterile technique and sonographic guidance, a 18 needle was utilized. 0.035 in guidewire was placed in position. Tract was further dilated using a 8 and 10 dilator followed by placement of a 10-Ugandan pigtail catheter. Catheter was secured with 2-0Prolene and connected to a drainage bag. Aspiration of approximately 10 mL of bloody purulent fluid.Specimen was sent to microbiology for analysis. Patient tolerated procedure well without a complication. No conscious sedation was required. DISCUSSION: Preliminary ultrasound Demonstrate presence of afluid collection with internal debris and multiple small air pocket compatible with abscess adjacentto the gallbladder fossa. IMPRESSION Successful ultrasound- guided aspiration and drainage catheter PAGE 1 Signed Report (CONTINUED) FAX: Juliana Weber [phone] [place]: St: [facility] FAX: Lizzy Petersen MD [phone] Name: SEYMOUR [place] : 1950 Age/S: 69/M [address] Unit #: [id number] Loc: [place] [address] Phys: Juliana Weber Acct: [id number] Dis Date: Status: ADM IN PHONE #: [phone] Exam Date: 10/04/2019 1300 FAX #: [phone] Reason: Abdomen, Gallbladder Fossa EXAMS: CPT CODE: [id number] USG NDL PLACEMENT (Bxg/Asp) 55599 (Continued) placement of abdominal fluid. Fluid was sent to microbiology for analysis. at 1542 Reported and signed by: Jake Grant M.D. CC: Juliana DE LA CRUZ; Lizzy Duke MD Technologist: Jaswinder Swanson [facility] Trnscrd Date/Time/By: 10/04/2019 (1542) : By: WesHPD PAGE 2 Signed Report FAX: Juliana Weber [phone] [place]: St: [facility] FAX: Lizzy Petersen MD [phone] Name: SEYMOUR [place] : 1950 Age/S: 69/M [address] Unit #: [id number] Loc: [place] [address] Phys: Juliana Weber Acct: [id number] Dis Date: Status: ADM IN PHONE #: [phone] Exam Date: 10/04/2019 1300 FAX #: [phone] Reason: Abdomen, Gallbladder Fossa EXAMS: C PT CODE: [id number] USG NDL PLACEMENT (Bxg/Asp) 40462 (Continued) Orig Print D/T: S: 10/04/2019 (3831) PAGE 3 Signed [id number] 11:54:00 Test Item Value Reference Range Interpretation Comments GLUBED (test code = GLUBED) 150 MG/DL 74-106 H [id number] 06:30:00 Test Item Value Reference Range Interpretation Comments GLUBED (test code = GLUBED) 142 MG/DL 74-106 H [id number] 21:35:00 Test Item Value Reference Range Interpretation Comments POTASSIUM (test code = K) 3.8 mmol/L 3.4-5.0 N [id number] 20:42:00 Test Item Value Reference Range Interpretation Comments GLUBED (test code = GLUBED) 225 MG/DL 74-106 H [id number] 15:39:00 Test Item Value Reference Range Interpretation Comments GLUBED (test code = GLUBED) 198 MG/DL 74-106 H BASIC METABOLIC [id number] 15:05:00 Test Item Value Reference Range Interpretation Comments SODIUM (test code = 135 mmol/L 137-145 L NA) POTASSIUM (test code 3.1 mmol/L 3.4-5.0 L = K) CHLORIDE (test code = 96 mmol/L 98-107 L CL) CARBON DIOXIDE (test 34 mmol/L 22-30 H code = CO2) GLUCOSE (test code = 197 mg/dL 74-106 H GLU) BLOOD UREA NITROGEN 3 mg/dL 9-20 L (test code = BUN) GLOMERULAR FILTRATION 174 >60 The es timated RATE (test code = glomerular filtration GFR) rate is compute d usingpatient ra ce, age (>18), sex, and serum creatinine. If anyof the needed data elements are mi ssing the Laboratory cannot compute an gwendolyn mation of the glomerul ar filtration rate . CREATININE (test code 0.5 mg/dL 0.7-1.3 L = CREAT) CALCIUM (test code = 7.4 mg/dL 8.4-10.2 L CA) PROTHROMBIN [id number] 15:03:00 Test Item Value Reference Range Interpretation Comments PROTHROMBIN TIME 15.8 SECONDS 9.2-12.1 H PATIENT (test code = PTP) INTERNATIONAL NORMAL 1.4 The INR is to be used RATIO (test code = only for monitoring INR) ORAL ANTICOAGULANTTH ERAPY. Indication INR Value1. Prophylaxis/art atment of: Venous Thro mbosis, Pulmonary Embol ism 2.0 - 3.02. Prevent ion of systemic emboli sm from: Tissue he art valves 2.0 - 3 .0 Acute myocardia l infarction (to present systemic emboli sm)* 2.0 - 3.0 Valvu lar heart disease 2 .0 - 3.0 Atrial fibrillation 2. 0 - 3.03. Mechanica l prosthetic valv es (high risk) 2.5 - 3.5 * If oral anticoagulant t herapy is elected to preventrecurren t myocardial infa rction, an INR of 2.5-3 .5 isrecommended, consistent with Food and Drug Administrationr ecommen dations. [id number] 11:58:00 Test Item Value Reference Range Interpretation Comments GLUBED (test code = GLUBED) 194 MG/DL 74-106 H [id number] 06:25:00 Test Item Value Reference Range Interpretation Comments GLUBED (test code = GLUBED) 133 MG/DL 74-106 H - CT ABD PELVIS [id number] 03:24:00 FAX: Darrick Zapata [phone] [place]: St: DIS FAX: Elicia Paul NP [phone] ---- Name: SEYMOUR SNOW [facility] : 1950 Age/S: 69/M [address] Unit: [id number] Loc: C.[address] [place] [address] Phys: Elicia Paul NP Acct: [id number] Dis Date: 10/02/2019 Status: DIS IN PHONE #: [phone] Exam Date: 10/03/2019 0305 FAX #: [phone] Reason: s/p open loly with purulent drainage from woun EXAMS: CPT CODE: [id number] CT ABD PELVIS W/CONT [address] ABDOMEN/PELVIS WITH CONTRAST HISTORY: s/p open loly with purulent drainage from wound TECHNIQUE: Axial CT images were obtainedthrough the abdomen and pelvis after intravenous contrast. Coronal and sagittal reformatted images were created from the data set. One or more of the following dose reduction techniques were used: Automated exposure control, adjustment of the mA and/or kV according to patient size, and/or iterative reconstruction. COMPARISON: 09/28/2019 FINDINGS: Cholecystectomy clips are present. There is a developing organized air-fluid collection in the gallbladder fossa measuring 7.2 x 2.5 x 3.0 cm. The liver, spleen, pancreas, kidneys and adrenal glands have no significant abnormalities. The appendix has a normal appearance. No bowel distention or wall thickening. No free air or free fluid in the abdomen. There is no retroperitoneal or mesenteric lymphadenopathy. No acute osseous abnormalities. IMPRESSION: Developing abscess in the gallbladder fossa measures 7.2 x 2.5 x 3.0 cm. at 0324 Reported and signed by: Teofilo Veras MD PAGE 1 Signed Report (CONTINUED) FAX: Lou BensonDarrickbertin Ovalle [phone] [place]: St: DIS FAX: Elicia Paul NP [phone] Name: SEYMOUR SNOW [facility] : 1950 Age/S: 69/M [address] Unit: [id number] Loc: C.[address] [place] [address] Phys: Elicia Paul NP Acct: [id number] Dis Date: 10/02/2019 Status: DIS IN PHONE #: [phone] Exam Date: 10/03/2019304 FAX #: [phone] Reason: s/p open loly with pur ulent drainage from woun EXAMS: CPT CODE: [id number] CT ABD PELVIS W/CONT 15188 (Continued) CC: Darrick Benson; Elicia Paul MEDICAL DEVICE Technologist: Amanda Anna; LES YANG Trnscrd Dt/Tm: 10/03/2019 (0324) [email or web address] Orig Print D/T: S: 10/03/2019 (0327 PAGE 2 Signed Report- CTA CHEST FOR [id number] 03:16:00 FAX: Darrick Zapata [phone] [place]: St: DIS FAX: Elicia Paul NP [phone] ---- Name: SEYMOUR SNOW [facility] : 1950 Age/S: 69/M [address] Unit: [id number] Loc: C.[address] [place] [address] Phys: Elicia Paul NP Acct: [id number] Dis Date: 10/02/2019 Status: DIS IN PHONE #: [phone] Exam Date: 10/03/2019304 FAX #: [phone] Reason: desaturation EXAMS: CPT CODE: [id number] [place] [address] R16 CTA CHEST WITH CONTRAST HISTORY: desaturation TECHNIQUE: Axial CT images were obtained through the chest after intravenous contrast utilizing pulmonary embolus protocol. Maximum intensity projection images were also created from the data set. One or more of the following dose reduction techniques were used: Automated exposure control, adjustment of the mA and/or kV according to patient size, and/or iterative reconstruction. COMPARISON: 09/28/2019 FINDINGS: The pulmonary arteries are well opacified with no evidence of pulmonary embolus. There is no evidence of thoracic aortic aneurysm or dissection. Bibasilar airspace consolidation. Small right pleural effusion again noted. No pneumothorax. There is no significant mediastinal or hilar adenopathy. No acute osseous abnormalities. Maximum intensity projection images confirm these findings. IMPRESSION: No evidence of pulmonary embolus. Bibasilar dependent atelectasis with small right pleural effusion again noted. at 0316 Reported and signed by: Teofilo Veras MD PAGE 1 Signed Report (CONTINUED) FAX: Darrick Zapata [phone] [place]: St: DIS FAX: Elicia Paul NP [phone] Name: JAYLA SARAHSEYMOUR VELASQUEZ [facility] : 1950 Age/S: 69/M [address] Unit: [id number] Loc: C.[address] [place] [address] Phys: Elicia Paul NP Acct: [id number] Dis Date: 10/02/2019 Status: DIS IN PHONE #: [phone] Exam Date: 10/03/2019 0305 FAX #: [phone] Reason: desaturation EXAMS: CPT CODE: [id number] [place] [address] (Continued) CC: Darrick Benson; Elicia Paul NP Technologist: Amanda YANG Trnscrd Dt/Tm: 10/03/2019 (315) Apple.VB7 Orig Print D/T: S: 10/03/2019 (9 PAGE 2 Signed ReportLACTIC [id number] 21:35:00 Test Item Value Reference Range Interpretation Comments LACTIC ACID (test code = LACT) 1.7 mmol/L 0.7-2.0 N CBC W/AUTO [id number] 21:21:00 Test Item Value Reference Range Interpretation Comments WHITE BLOOD CELL (test code = 8.7 x10 3/uL 5.0-12.0 N WBC) RED BLOOD CELL (test code = 3.15 x10 6/uL 4.70-6.10 L RBC) HEMOGLOBIN (test code = HGB) 9.6 g/dL 14.0-18.0 L HEMATOCRIT (test code = HCT) 28.9 % 37.0-49.0 L MEAN CELL VOLUME (test code = 92 fL 80-94 N MCV) MEAN CELL HGB (test code = MCH) 30.5 pg 27-31 N MEAN CELL HGB CONCENTRATION 33.2 g/dL 33-37 N (test code = MCHC) RED CELL DISTRIBUTION WIDTH 13.1 % 11.5-15.5 N (test code = RDW) PLATELET COUNT (test code = 212 x10 3/uL 130-400 N PLT) MEAN PLATELET VOLUME (test code 9.4 fL 9.4-16.4 N = MPV) NEUTROPHIL % (test code = NT%) 71.2 % 43-65 H IMMATURE GRANULOCYTE % (test 0.3 % 0.0-2.0 N code = IG%) LYMPHOCYTE % (test code = LY%) 18.3 % 20.5-45.5 L MONOCYTE % (test code = MO%) 6.5 % 5.5-11.7 N EOSINOPHIL % (test code = EO%) 2.9 % 0.9-2.9 N BASOPHIL % (test code = BA%) 0.8 % 0.2-1.0 N NUCLEATED RBC % (test code = 0.0 % 0-1.0 N NRBC%) NEUTROPHIL # (test code = NT#) 6.20 x10 3/uL 2.2-4.8 H IMMATURE GRANULOCYTE # (test 0.03 x10 3/uL 0-0.03 N code = IG#) LYMPHOCYTE # (test code = LY#) 1.59 x10 3/uL 1.3-2.9 N MONOCYTE # (test code = MO#) 0.57 x10 3/uL 0.3-0.8 N EOSINOPHIL # (test code = EO#) 0.25 x10 3/uL 0.0-0.2 H BASOPHIL # (test code = BA#) 0.07 x10 3/uL 0.0-0.1 N [id number] 20:53:00 Test Item Value Reference Range Interpretation Comments GLUBED (test code = GLUBED) 139 MG/DL 74-106 H [id number] 16:58:00 Test Item Value Reference Range Interpretation Comments GLUBED (test code = GLUBED) 190 MG/DL 74-106 H - XR CHEST 1 [id number] 16:19:00 FAX: Michelle Thompson [phone] [place]: St: ADM FAX: Lou CrowellKelleyDarrick nicole [facility] [phone] Name: SEYMOUR SNOW [facility] : 1950 Age/S: 69/M [address] Unit #: [id number] Loc: C.[address] [place] [address] Phys: Michelle Hudson MEDICAL DEVICE Acct: [id number] Dis Date: Status: ADM IN PHONE #: [phone] Exam Date: 10/02/2019 1557 FAX #: [phone] Reason: shortness of breath, hypoxia EXAMS: CPT CODE: [id number] XR CHEST 1 V 99638 Site ID: [id number] HISTORY: Shortness of breath, hypoxia COMPARISON: Chest x-ray and CT chest September 28, 2019 FINDINGS: Improved pulmonary aeration, with residual streaky bibasilar atelectasis. No appreciable pleural effusion. The heart and pulmonary vasculature is normal. Osseous structures are unremarkable. IMPRESSION: Improved pulmonary aeration, with residual streaky bibasilar atelectasis. at 1619 Reported and signed by: Kaden Coyle MD CC: Michelle Hudson MEDICAL DEVICE; Darrick Benson Technologist:Bibi Santosscrd Date/Time/By: 10/02/2019 (5835) : By: [email or web address] PAGE 1 Signed Report FAX: Michelle Thompson [phone] [place]: St: ADM FAX: Darrick Zapata [phone] Name: JAYLA SARAHMYASEYMOUR [facility] : 1950 Age/S: 69/M [address] Unit #: [id number] Loc: [address] [place] [address] Phys: Michelle Hudson NP Acct: [id number] Dis Date: Status: ADM IN PHONE #: [phone] Exam Date: 10/02/2019 1557 FAX #: [phone] Reason: shortness of breath, hypoxia EXAMS: CPTCODE: [id number] XR CHEST 1 V 43197 (Continued) Orig Print D/T: S: 10/02/2019 (7083) PAGE 2 Signed [id number] 11:27:00 Test Item Value Reference Range Interpretation Comments GLUBED (test code = GLUBED) 154 MG/DL 74-106 H [id number] 05:55:00 Test Item Value Reference Range Interpretation Comments GLUBED (test code = GLUBED) 129 MG/DL 74-106 H URINALYSIS [id number] 21:48:00 Test Item Value Reference Range Interpretation Comments UA COLOR (test code = COLU) Tasneem Yellow A UA APPEARANCE (test code = Clear Clear APPU) UA GLUCOSE DIPSTICK (test 50 (1+) Negative A code = DGLUU) UA BILIRUBIN DIPSTICK (test Negative Negative code = BILU) UA KETONE DIPSTICK (test code Negative mg/dL Negative = KETU) UA SPECIFIC GRAVITY (test 1.020 <1.030 code = SGU) UA BLOOD DIPSTICK (test code Negative Negative = BUTCH) UA PH DIPSTICK (test code = 6.0 5.0-8.0 ECHO) UA PROTEIN DIPSTICK (test NEGATIVE mg/dL Negative code = PROU) UA UROBILINOGEN DIPSTICK 4.0 mg/dL Negative A (test code = URO) UA NITRITE DIPSTICK (test Negative Negative code = SHANDA) UA LEUKOCYTE ESTERASE NEGATIVE Negative DIPSTICK (test code = LEUU) UA WBC (test code = WBCU) 0-3 /HPF <4-5 UA RBC (test code = RBCU) 0-3 /HPF <4-5 UA BACTERIA (test code = NONE SEEN /HPF None-Rare BACU) UA SQUAMOUS CELLS (test code 0-5 (RARE) /HPF 0-5 (RARE) = SQU) UA MUCUS (test code = MUCU) Rare /LPF <Rare COMPREHENSIVE METABOLIC [id number] 21:40:00 Test Item Value Reference Range Interpretation Comments SODIUM (test code = 131 mmol/L 137-145 L NA) POTASSIUM (test code = 3.4 mmol/L 3.4-5.0 N K) CHLORIDE (test code = 97 mmol/L 98-107 L CL) CARBON DIOXIDE (test 29 mmol/L 22-30 N code = CO2) GLUCOSE (test code = 205 mg/dL 74-106 H GLU) BLOOD UREA NITROGEN 6 mg/dL 9-20 L (test code = BUN) GLOMERULAR FILTRATION 174 >60 The es timated RATE (test code = GFR) glome rular filtration rate is compute d usingpatient ra ce, age (>18), sex, and serum creatinin e. If anyof the neede d data elements are mi ssing the Laboratory cannot compute an gwendolyn mation of the glomerul ar filtration rate . CREATININE (test code 0.5 mg/dL 0.7-1.3 L = CREAT) TOTAL PROTEIN (test 5.7 g/dL 6.3-8.2 L code = PROT) ALBUMIN (test code = 2.7 g/dL 3.5-5.0 L ALB) CALCIUM (test code = 7.1 mg/dL 8.4-10.2 L CA) BILIRUBIN TOTAL (test 1.1 mg/dL 0.2-1.3 N code = BILT) BILIRUBIN CONJUGATED 0 mg/dL 0-0.3 N ~~~~~~~ ~~~~~~~~~~~~~~ (test code = BILCON) ~~~~~~~ ~~~~~~~~~~~~~~ ~~~~~~~~~~~~~~~ ~~~CON JUGATED BILIRUB IN IS THE REPLACEMENT ASSAY FOR DIRECTBILIRUBIN .~~~~~ ~~~~~~~~~~~~~~~ ~~~~~~ ~~~~~~~~~~~~~~~ ~~~~~~ ~~~~~~~~~~~~~ BILIRUBIN UNCONJUGATED 0.3 mg/dL 0-1.1 N (test code = BILUNC) SGOT/AST (test code = 35 U/L 15-46 N AST) SGPT/ALT (test code = 38 U/L 13-69 N ALT) ALKALINE PHOSPHATASE 193 U/L 38-126 H (test code = ALKP) PROTHROMBIN [id number] 21:34:00 Test Item Value Reference Range Interpretation Comments PROTHROMBIN TIME 14.6 SECONDS 9.2-12.1 H PATIENT (test code = PTP) INTERNATIONAL NORMAL 1.3 The INR is to be used RATIO (test code = only for monitoring INR) ORAL ANTICOAGULANTTH ERAPY. Indication INR Value1. Prophylaxis/art atment of: Venous Thrombosis, Pul monary Embolism 2.0 - 3.02. Prevention of s ystemic embolism from: Tissue heart valves 2. 0 - 3.0 Acute myocardia l infarction (to present systemic emboli sm)* 2.0 - 3.0 Valvu lar heart disease 2 .0 - 3.0 Atrial fibrillation 2. 0 - 3.03. Mechanica l prosthetic valv es (high risk) 2.5 - 3.5 * If oral anticoagulant t herapy is elected to preventrecurren t myocardial infa rction, an INR of 2.5-3 .5 isrecommended, consistent with Food and Drug Administrationr ecommen dations. THROMBOPLASTIN TIME [id number] 21:34:00 Test Item Value Reference Range Interpretation Comments THROMBOPLASTIN TIME 32.0 SECONDS 23.4-37.0 N Therape utic Range PARTIAL (test code = for Hep mecca PTT) EFFECTIVE Heparin IU/mL a PTT Seconds0.3 64.3 0.7 88.8 CBC W/AUTO [id number] 21:27:00 Test Item Value Reference Range Interpretation Comments WHITE BLOOD CELL (test code = 9.6 x10 3/uL 5.0-12.0 N WBC) RED BLOOD CELL (test code = 3.12 x10 6/uL 4.70-6.10 L RBC) HEMOGLOBIN (test code = HGB) 9.7 g/dL 14.0-18.0 L HEMATOCRIT (test code = HCT) 28.4 % 37.0-49.0 L MEAN CELL VOLUME (test code = 91 fL 80-94 N MCV) MEAN CELL HGB (test code = MCH) 31.1 pg 27-31 H MEAN CELL HGB CONCENTRATION 34.2 g/dL 33-37 N (test code = MCHC) RED CELL DISTRIBUTION WIDTH 12.9 % 11.5-15.5 N (test code = RDW) PLATELET COUNT (test code = 209 x10 3/uL 130-400 N PLT) MEAN PLATELET VOLUME (test code 9.4 fL 9.4-16.4 N = MPV) NEUTROPHIL % (test code = NT%) 71.7 % 43-65 H IMMATURE GRANULOCYTE % (test 0.5 % 0.0-2.0 N code = IG%) LYMPHOCYTE % (test code = LY%) 18.0 % 20.5-45.5 L MONOCYTE % (test code = MO%) 6.9 % 5.5-11.7 N EOSINOPHIL % (test code = EO%) 2.4 % 0.9-2.9 N BASOPHIL % (test code = BA%) 0.5 % 0.2-1.0 N NUCLEATED RBC % (test code = 0.0 % 0-1.0 N NRBC%) NEUTROPHIL # (test code = NT#) 6.84 x10 3/uL 2.2-4.8 H IMMATURE GRANULOCYTE # (test 0.05 x10 3/uL 0-0.03 H code = IG#) LYMPHOCYTE # (test code = LY#) 1.72 x10 3/uL 1.3-2.9 N MONOCYTE # (test code = MO#) 0.66 x10 3/uL 0.3-0.8 N EOSINOPHIL # (test code = EO#) 0.23 x10 3/uL 0.0-0.2 H BASOPHIL # (test code = BA#) 0.05 x10 3/uL 0.0-0.1 N [id number] 21:11:00 Test Item Value Reference Range Interpretation Comments GLUBED (test code = GLUBED) 236 MG/DL 74-106 H [id number] 16:21:00 Test Item Value Reference Range Interpretation Comments GLUBED (test code = GLUBED) 155 MG/DL 74-106 H [id number] 11:42:00 Test Item Value Reference Range Interpretation Comments GLUBED (test code = GLUBED) 198 MG/DL 74-106 H [id number] 07:02:00 Test Item Value Reference Range Interpretation Comments GLUBED (test code = GLUBED) 144 MG/DL 74-106 H [id number] 20:56:00 Test Item Value Reference Range Interpretation Comments GLUBED (test code = GLUBED) 178 MG/DL 74-106 H [id number] 16:21:00 Test Item Value Reference Range Interpretation Comments GLUBED (test code = GLUBED) 261 MG/DL 74-106 H [id number] 12:57:00 Test Item Value Reference Range Interpretation Comments GLUBED (test code = GLUBED) 176 MG/DL 74-106 H [id number] 06:51:00 Test Item Value Reference Range Interpretation Comments GLUBED (test code = GLUBED) 238 MG/DL 74-106 H COMPREHENSIVE METABOLIC [id number] 06:20:00 Test Item Value Reference Range Interpretation Comments SODIUM (test code = 135 mmol/L 137-145 L NA) POTASSIUM (test code = 3.7 mmol/L 3.4-5.0 N K) CHLORIDE (test code = 99 mmol/L 98-107 N CL) CARBON DIOXIDE (test 27 mmol/L 22-30 N code = CO2) GLUCOSE (test code = 158 mg/dL 74-106 H GLU) BLOOD UREA NITROGEN 5 mg/dL 9-20 L (test code = BUN) GLOMERULAR FILTRATION 174 >60 The es timated RATE (test code = GFR) glome rular filtration rate is compute d usingpatient ra ce, age (>18), sex, and serum creatinin e. If anyof the neede d data elements are mi ssing the Laboratory cannot compute an gwendolyn mation of the glomerul ar filtration rate . CREATININE (test code 0.5 mg/dL 0.7-1.3 L = CREAT) TOTAL PROTEIN (test 6.1 g/dL 6.3-8.2 L code = PROT) ALBUMIN (test code = 2.8 g/dL 3.5-5.0 L ALB) CALCIUM (test code = 7.7 mg/dL 8.4-10.2 L CA) BILIRUBIN TOTAL (test 2.0 mg/dL 0.2-1.3 H code = BILT) BILIRUBIN CONJUGATED 0 mg/dL 0-0.3 N ~~~~~~~ ~~~~~~~~~~~~~~ (test code = BILCON) ~~~~~~~ ~~~~~~~~~~~~~~ ~~~~~~~~~~~~~~~ ~~~CON JUGATED BILIRUB IN IS THE REPLACEMENT ASSAY FOR DIRECTBILIRUBIN .~~~~~ ~~~~~~~~~~~~~~~ ~~~~~~ ~~~~~~~~~~~~~~~ ~~~~~~ ~~~~~~~~~~~~~ BILIRUBIN UNCONJUGATED 1.0 mg/dL 0-1.1 N (test code = BILUNC) SGOT/AST (test code = 45 U/L 15-46 N AST) SGPT/ALT (test code = 33 U/L 13-69 N ALT) ALKALINE PHOSPHATASE 202 U/L 38-126 H (test code = ALKP) CBC W/AUTO [id number] 06:07:00 Test Item Value Reference Range Interpretation Comments WHITE BLOOD CELL (test code = 10.3 x10 3/uL 5.0-12.0 N WBC) RED BLOOD CELL (test code = 3.57 x10 6/uL 4.70-6.10 L RBC) HEMOGLOBIN (test code = HGB) 10.9 g/dL 14.0-18.0 L HEMATOCRIT (test code = HCT) 32.4 % 37.0-49.0 L MEAN CELL VOLUME (test code = 91 fL 80-94 N MCV) MEAN CELL HGB (test code = MCH) 30.5 pg 27-31 N MEAN CELL HGB CONCENTRATION 33.6 g/dL 33-37 N (test code = MCHC) RED CELL DISTRIBUTION WIDTH 12.6 % 11.5-15.5 N (test code = RDW) PLATELET COUNT (test code = 227 x10 3/uL 130-400 N PLT) MEAN PLATELET VOLUME (test code 10.0 fL 9.4-16.4 N = MPV) NEUTROPHIL % (test code = NT%) 81.3 % 43-65 H IMMATURE GRANULOCYTE % (test 0.6 % 0.0-2.0 N code = IG%) LYMPHOCYTE % (test code = LY%) 9.8 % 20.5-45.5 L MONOCYTE % (test code = MO%) 7.0 % 5.5-11.7 N EOSINOPHIL % (test code = EO%) 0.8 % 0.9-2.9 L BASOPHIL % (test code = BA%) 0.5 % 0.2-1.0 N NUCLEATED RBC % (test code = 0.0 % 0-1.0 N NRBC%) NEUTROPHIL # (test code = NT#) 8.42 x10 3/uL 2.2-4.8 H IMMATURE GRANULOCYTE # (test 0.06 x10 3/uL 0-0.03 H code = IG#) LYMPHOCYTE # (test code = LY#) 1.01 x10 3/uL 1.3-2.9 L MONOCYTE # (test code = MO#) 0.72 x10 3/uL 0.3-0.8 N EOSINOPHIL # (test code = EO#) 0.08 x10 3/uL 0.0-0.2 N BASOPHIL # (test code = BA#) 0.05 x10 3/uL 0.0-0.1 N [id number] 22:44:00 Test Item Value Reference Range Interpretation Comments GLUBED (test code = GLUBED) 158 MG/DL 74-106 H [id number] 15:59:00 Test Item Value Reference Range Interpretation Comments GLUBED (test code = GLUBED) 157 MG/DL 74-106 H [id number] 12:09:00 Test Item Value Reference Range Interpretation Comments GLUBED (test code = GLUBED) 212 MG/DL 74-106 H [id number] 06:31:00 Test Item Value Reference Range Interpretation Comments GLUBED (test code = GLUBED) 148 MG/DL 74-106 H CBC W/AUTO [id number] 05:51:00 Test Item Value Reference Range Interpretation Comments WHITE BLOOD CELL (test code = 12.3 x10 3/uL 5.0-12.0 H WBC) RED BLOOD CELL (test code = 3.27 x10 6/uL 4.70-6.10 L RBC) HEMOGLOBIN (test code = HGB) 10.1 g/dL 14.0-18.0 L HEMATOCRIT (test code = HCT) 30.5 % 37.0-49.0 L MEAN CELL VOLUME (test code = 93 fL 80-94 N MCV) MEAN CELL HGB (test code = MCH) 30.9 pg 27-31 N MEAN CELL HGB CONCENTRATION 33.1 g/dL 33-37 N (test code = MCHC) RED CELL DISTRIBUTION WIDTH 12.8 % 11.5-15.5 N (test code = RDW) PLATELET COUNT (test code = 213 x10 3/uL 130-400 N PLT) MEAN PLATELET VOLUME (test code 10.0 fL 9.4-16.4 N = MPV) NEUTROPHIL % (test code = NT%) 80.8 % 43-65 H IMMATURE GRANULOCYTE % (test 0.6 % 0.0-2.0 N code = IG%) LYMPHOCYTE % (test code = LY%) 11.0 % 20.5-45.5 L MONOCYTE % (test code = MO%) 5.5 % 5.5-11.7 N EOSINOPHIL % (test code = EO%) 1.8 % 0.9-2.9 N BASOPHIL % (test code = BA%) 0.3 % 0.2-1.0 N NUCLEATED RBC % (test code = 0.0 % 0-1.0 N NRBC%) NEUTROPHIL # (test code = NT#) 9.95 x10 3/uL 2.2-4.8 H IMMATURE GRANULOCYTE # (test 0.07 x10 3/uL 0-0.03 H code = IG#) LYMPHOCYTE # (test code = LY#) 1.36 x10 3/uL 1.3-2.9 N MONOCYTE # (test code = MO#) 0.68 x10 3/uL 0.3-0.8 N EOSINOPHIL # (test code = EO#) 0.22 x10 3/uL 0.0-0.2 H BASOPHIL # (test code = BA#) 0.04 x10 3/uL 0.0-0.1 N COMPREHENSIVE METABOLIC [id number] 05:50:00 Test Item Value Reference Range Interpretation Comments SODIUM (test code = 134 mmol/L 137-145 L NA) POTASSIUM (test code = 3.2 mmol/L 3.4-5.0 L K) CHLORIDE (test code = 101 mmol/L 98-107 N CL) CARBON DIOXIDE (test 26 mmol/L 22-30 N code = CO2) GLUCOSE (test code = 140 mg/dL 74-106 H GLU) BLOOD UREA NITROGEN 7 mg/dL 9-20 L (test code = BUN) GLOMERULAR FILTRATION 174 >60 The es timated RATE (test code = GFR) glome rular filtration rate is compute d usingpatient ra ce, age (>18), sex, and serum creatinin e. If anyof the neede d data elements are mi ssing the Laboratory cannot compute an gwendolyn mation of the glomerul ar filtration rate . CREATININE (test code 0.5 mg/dL 0.7-1.3 L = CREAT) TOTAL PROTEIN (test 5.3 g/dL 6.3-8.2 L code = PROT) ALBUMIN (test code = 2.5 g/dL 3.5-5.0 L ALB) CALCIUM (test code = 7.3 mg/dL 8.4-10.2 L CA) BILIRUBIN TOTAL (test 1.8 mg/dL 0.2-1.3 H code = BILT) BILIRUBIN CONJUGATED 0 mg/dL 0-0.3 N ~~~~~~~ ~~~~~~~~~~~~~~ (test code = BILCON) ~~~~~~~ ~~~~~~~~~~~~~~ ~~~~~~~~~~~~~~~ ~~~CON JUGATED BILIRUB IN IS THE REPLACEMENT ASSAY FOR DIRECTBILIRUBIN .~~~~~ ~~~~~~~~~~~~~~~ ~~~~~~ ~~~~~~~~~~~~~~~ ~~~~~~ ~~~~~~~~~~~~~ BILIRUBIN UNCONJUGATED 1.0 mg/dL 0-1.1 N (test code = BILUNC) SGOT/AST (test code = 37 U/L 15-46 N AST) SGPT/ALT (test code = 48 U/L 13-69 N ALT) ALKALINE PHOSPHATASE 164 U/L 38-126 H (test code = ALKP) [id number] 20:27:00 Test Item Value Reference Range Interpretation Comments GLUBED (test code = GLUBED) 185 MG/DL 74-106 H [id number] 16:52:00 RUN DATE: 09/28/19 [employer] [facility] PAGE 1 RUN TIME: 2 Specimen Inquiry RUN USER: INTERFACE PATIE NT: SEYMOUR SNOW LOC: [place] U #: [id number] AGE/SX: 69/M ROOM: [facility] RE09/22/19REGDR: Lizzy Duke MD : 46 BED: A DIS: STATUS: ADM IN TLOC: SPEC #: [id number] RECD: 09/27/19 STATUS: NOEL MACK #: [id number] SALLY: 09/25/[address] [facility] [address]: Judith Mccoy MD ENTERED: 09/27/19 SP TYPE: GALLBLADD OTHR DR: No Primary or Family Physician Pawan Restrepo MD, Ijeoma Erica MD Tapia,Dulce Dutton MDORDERED: PATHGM3, # OF BLOCKS/2, # OF SLIDES/2 TISSUES: A. GALLBLADDER, NOS CLINICAL HISTORY ACUTE CHOLECYSTITIS, CIRRHOSIS. FINAL MICROSCOPIC DIAGNOSIS GALLBLADDER, CHOLECYSTECTOMY: GANGRENOUS CHOLECYSTITIS WITH MARKED ACUTE AND CHRONIC INFLAMMATION, ULCERATION CHOLELITHIASIS CPT: 10594 GROSS DESCRIPTION In formalin, labeled with the patient's name, medical record number, and "gallbladder"is a fragmented gallbladder measuring 8.5 x 5.0 x 2.5 cm, when reapproximated. The serosal surface is dark red to begum-white, ragged with cautery artifact on the hepatic surface. The lumen contains dark red bile and a 1.5 cm in greatest dimension yellow-green to black multifaceted calculus. The mucosal surface is dark red to begum-white and granular. The wall measures 0.5 cm in maximum thickness. The cystic duct resection margin is not identified. [employer] Specialist sections are submitted in cassettes A1-A2. OSMAN/MERON/jv Signed SIGNATURE ON FILE Lynda Truong 09/28/19 6270 END OF REPORT GLUBED 2019-09-28 16:28:00 Test Item Value Reference Range Interpretation Comments GLUBED (test code = GLUBED) 190 MG/DL 74-106 H PROCALCITONIN (PCT)2019-09-28 12:58:00 Test Item Value Reference Range Interpretation Comments PROCALCITONIN (PCT) 1.51 NG/ML (test code = PROCAL) Procalcito arsh (PCT) Normal Va lue: <0.05 NG/ML <0. 5 NG/ML - low risk of s evere sepsis and/or s eptic shock>2.0 NG/ML - high risk of severe sepsis and/or septic s hock PCT concentrations between 0.5 and 2.0 NG/ ML should beinterp reted taking into acc ount the patient's histo ry.It is recommended to retest PCT within 6-24 hours if anyconcentra tions between 0.5-2.0 NG/ML are obtained. [id number] 12:26:00 Test Item Value Reference Range Interpretation Comments GLUBED (test code = GLUBED) 161 MG/DL 74-106 H - XR CHEST 1 [id number] 11:42:00 FAX: Michelle Thompson [phone] [place]: [facility] St: ADM FAX: Lizzy Petersen MD [phone] ---- Name: SEYMOUR SNOW [facility] : 1950 Age/S: 69/M [address] Unit #: [id number] Loc: [address] [place] [address] Phys: Michelle Hudson NP Acct: [id number] Dis Date: Status: ADM IN PHONE #: [phone] Exam Date: 09/28/2019 1137 FAX #: [phone] Reason: FEVER, LEUKOCYTOSIS EXAMS: CPT CODE: [id number] XR CHEST 1 V 82376 HISTORY: Fever and leukocytosis Location: C3 COMPARISON:10/26/2018 FINDINGS: There is cardiomegaly with vascular prominence. Patchy perihilar and basilar opacities are noted increased from prior study. No pneumothorax. No other changes. IMPRESSION: 1. Patchy perihilar andbasilar opacities compatible with areas of atelectasis and patchy bilateral consolidation. at 1142 Reported and signed by: Adolfo Bone MD CC:Michelle Hudson MEDICAL DEVICE; Lizzy Duke MD Technologist: Marielena Brown Trnscrd Date/Time/By: 09/28/2019 (1142) : By: [email or web address] PAGE 1 Signed Report FAX: Michelle Thompson [phone] [place]: [facility]: [facility] FAX: Lizzy Petersen MD [phone] Name: SEYMOUR SNOW [facility] : 1950 Age/S: 69/[address] Unit #: [id number] Loc: [place] [address] Phys: Michelle Hudson MEDICAL DEVICE Acct: [id number] Dis Date: Status: ADM IN PHONE #: [phone] Exam Date: 09/28/2019 1137 FAX #: [phone] Reason: FEVER, LEUKOCYTOSIS EXAMS: CPT CODE: [id number] XR CHEST 1 V 12277 (Continued) Orig Print D/T: S: 09/28/2019 (1145) PAGE 2 Signed Report- CTA CHEST FOR [id number] 10:03:00 FAX: Lizzy Petersen MD [phone] [place]: St: ADM FAX: Elicia Paul NP [phone] --------- Name: SEYMOUR SNOW [facility] : 1950 Age/S: 69/M [address] Unit: [id number] Loc: [address] [place] [address] Phys: Elicia Paul NP Acct: [id number] Dis Date: Status: ADM IN PHONE #: [phone] Exam Date: 09/28/2019 0940 FAX #: [phone] Reason: requiring supplemental oxygen, r/o PE EXAMS: CPT CODE: [id number] [place] [address] HISTORY: Surgery and pain Location: C3 COMPARISON: None TECHNIQUE: Axial tomograms through the chest were obtained after intravenous contrast utilizing pulmonaryCTA protocol. Multiplanar maximum intensity projection reformatted images are provided. Dedicated images of the abdomen and pelvis were obtained as well. One or more of the following dose reduction techniques were used: Automated exposure control, adjustment of the mA and/or kV according to patient size, and/or utilization of iterative reconstruction technique. FINDINGS: CTA chest: Pulmonary arteriesare well opacified with no filling defects suggest pulmonary embolus. Small right pleural effusion is noted. Bibasilar consolidation is demonstrated. No pneumothorax. Scattered small mediastinal lymph nodes are present without discrete mediastinal mass. CT abdomen and pelvis: Postoperative changes of recent cholecystectomy are demonstrated with postoperative changes involving the abdominal wall with soft tissue gas noted. Right upper quadrant drainage catheter is present with drain noted in the gallbladder fossa. The hepatic flexure of the colon is in close proximity to the gallbladder fossa with mild secondary thickening. Several small foci of gas are noted in the gallbladder fossa without discrete fluid collection. There is a simple appearing cyst involving the right hepatic lobe similar to prior preoperative MRI. The spleen, pancreas, adrenals, and kidneys show no significant abnormalities.Spleen is grossly unremarkable. 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 No evidence of bowel obstruction. Vascular calcifications are PAGE 1 Signed Report (CONTINUED) FAX: Lizzy Petersen MD [phone] [place]: St: ADM FAX: Elicia Paul NP [phone] Name: SEYMOUR SNOW [facility] : 1950 Age/S: 69/M [address] Unit: [id number] Loc: [address] [place] [address] Phys: Elicia Paul NP Acct: [id number] Dis Date: Status: ADM IN PHONE #: [phone] Exam Date: 09/28/2019939 FAX #: [phone] Reason: requiring supplemental oxygen, r/o PE EXAMS: CPT CODE: [id number] [place] [address] (Continued) present. No intrapelvic fluid collection. IMPRESSION: 1. No evidence of pulmonary embolus. 2. Small right pleural effusion with bibasilar consolidation. 3. Postoperative changes involving the gallbladder fossa with soft tissue stranding as well as several small foci of gas. No discrete defined fluid collection demonstrated suggest abscess. A few additional small foci of free air demonstrated within the abdomen likely postoperative in nature. 4. Gas in the soft tissue thickening involving the right anterior and lateral abdominal wall likely postoperative without discrete collection. 5. No evidence of bowel obstruction at 1003 Reported and signed by: Adolfo Bone MD CC: Lizzy Duke MD; Elicia Paul MEDICAL DEVICE Technologist: CASSY BYERS, RT(R,CT); MOON MEREDITH Trnhird Dt/Tm: 09/28/2019 (1003) [email or web address] Orig Print D/T: S: 09/28/2019 (1006 PAGE 2 Signed Report- CT ABD PELVIS [id number] 10:03:00 FAX: Lizzy Petersen MD [phone] [place]: St: ADM FAX: Elicia Paul NP [phone] --------- Name: SEYMOUR SNOW [facility] : 1950 Age/S: 69/M [address] Unit: [id number] Loc: [address] [facility] [id number] Phys: Elicia Paul NP Acct: [id number] Dis Date: Status: ADM IN PHONE #: [phone] Exam Date: 09/28/2019939 FAX #: [phone] Reason: s/p lap loly, increasing WBC. IV and PO contra EXAMS: CPT CODE: [id number] CT ABD PELVIS W/CONT 33364 HISTORY: Surgery and pain Location: C3 COMPARISON: None TECHNIQUE: Axial tomograms through the chest were obtained after intravenous contrast utilizing pulmonary CTA protocol. Multiplanar maximum intensity projection reformatted images are provided.Dedicated images of the abdomen and pelvis were obtained as well. One or more of the following dose reduction techniques were used: Automated exposure control, adjustment of the mA and/or kV according to patient size, and/or utilization of iterative reconstruction technique. FINDINGS: CTA chest: Pulmon neymar arteries are well opacified with no filling defects suggest pulmonary embolus. Small right pleural effusion is noted. Bibasilar consolidation is demonstrated. No pneumothorax. Scattered small mediastinal lymph nodes are present without discrete mediastinal mass. CT abdomen and pelvis: Postoperative changes of recent cholecystectomy are demonstrated with postoperative changes involving the abdominal wall with soft tissue gas noted. Right upper quadrant drainage catheter is present with drain noted in the gallbladder fossa. The hepatic flexure of the colon is in close proximity to the gallbladderfossa with mild secondary thickening. Several small foci of gas are noted in the gallbladder fossa without discrete fluid collection. There is a simple appearing cyst involving the right hepatic lobe similar to prior preoperative MRI. The spleen, pancreas, adrenals, and kidneys show no significant abnormalities. Spleen is grossly unremarkable. 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 No evidence of bowel obstruction. Vascular calcifications are PAGE 1 Signed Report (CONTINUED) FAX: Lizzy Petersen MD [phone] [place]: St: ADM FAX: Elicia Paul NP [phone] Name: SEYMOUR SNOW [facility] : 1950 Age/S: 69/M [address] Unit: [id number] Loc: [address] [place] [address] Phys: Elicia Paul NP Acct: [id number] Dis Date: Status: ADM IN PHONE #: [phone] Exam Date: 09/28/2019 0946 FAX #: [phone] Reason: s/p lap loly, increasing WBC. IV and PO contra EXAMS: CPT CODE: [id number] CT ABD PELVIS W/CONT 56749 (Continued) present. No intrapelvic fluid collection. IMPRESSION: 1. No evidence of pulmonary embolus. 2. Small right pleural effusion with bibasilar consolidation. 3. Postoperative changes involving the gallbladder fossa with soft tissue stranding as well as several small foci of gas. No discrete defined fluid collection demonstrated suggest abscess. A few additional small foci of free air demonstrated within the abdomen likely postoperative in nature. 4. Gas in the soft tissue thickening involving the right anterior and lateral abdominal wall likely postoperative without discrete collection. 5. No evidence of bowel obstruction at 1003 Reported and signed by: Adolfo Bone MD CC: Lizzy Duke MD; Elicia Paul MEDICAL DEVICE Technologist: CASSY BYERS, RT(R,CT); MOON MEREDITH Trnscrd Dt/Tm: 09/28/2019 (1003) [email or web address] Orig Print D/T: S: 09/28/2019 (1006 PAGE 2 Signed [id number] 06:19:00 Test Item Value Reference Range Interpretation Comments GLUBED (test code = GLUBED) 179 MG/DL 74-106 H COMPREHENSIVE METABOLIC [id number] 05:31:00 Test Item Value Reference Range Interpretation Comments SODIUM (test code = 134 mmol/L 137-145 L NA) POTASSIUM (test code = 3.8 mmol/L 3.4-5.0 N K) CHLORIDE (test code = 101 mmol/L 98-107 N CL) CARBON DIOXIDE (test 26 mmol/L 22-30 N code = CO2) GLUCOSE (test code = 155 mg/dL 74-106 H GLU) BLOOD UREA NITROGEN 12 mg/dL 9-20 N (test code = BUN) GLOMERULAR FILTRATION 141 >60 The es timated RATE (test code = GFR) glome rular filtration rate is compute d usingpatient ra ce, age (>18), sex, and serum creatinin e. If anyof the neede d data elements are mi ssing the Laboratory cannot compute an gwendolyn mation of the glomerul ar filtration rate . CREATININE (test code 0.6 mg/dL 0.7-1.3 L = CREAT) TOTAL PROTEIN (test 5.9 g/dL 6.3-8.2 L code = PROT) ALBUMIN (test code = 2.8 g/dL 3.5-5.0 L ALB) CALCIUM (test code = 7.4 mg/dL 8.4-10.2 L CA) BILIRUBIN TOTAL (test 2.4 mg/dL 0.2-1.3 H code = BILT) BILIRUBIN CONJUGATED 0 mg/dL 0-0.3 N ~~~~~~~ ~~~~~~~~~~~~~~ (test code = BILCON) ~~~~~~~ ~~~~~~~~~~~~~~ ~~~~~~~~~~~~~~~ ~~~CON JUGATED BILIRUB IN IS THE REPLACEMENT ASSAY FOR DIRECTBILIRUBIN .~~~~~ ~~~~~~~~~~~~~~~ ~~~~~~ ~~~~~~~~~~~~~~~ ~~~~~~ ~~~~~~~~~~~~~ BILIRUBIN UNCONJUGATED 1.2 mg/dL 0-1.1 H (test code = BILUNC) SGOT/AST (test code = 43 U/L 15-46 N AST) SGPT/ALT (test code = 45 U/L 13-69 N ALT) ALKALINE PHOSPHATASE 172 U/L 38-126 H (test code = ALKP) CBC W/AUTO [id number] 05:11:00 Test Item Value Reference Range Interpretation Comments WHITE BLOOD CELL (test code = 20.6 x10 3/uL 5.0-12.0 H WBC) RED BLOOD CELL (test code = 3.47 x10 6/uL 4.70-6.10 L RBC) HEMOGLOBIN (test code = HGB) 10.9 g/dL 14.0-18.0 L HEMATOCRIT (test code = HCT) 32.0 % 37.0-49.0 L MEAN CELL VOLUME (test code = 92 fL 80-94 N MCV) MEAN CELL HGB (test code = 31.4 pg 27-31 H MCH) MEAN CELL HGB CONCENTRATION 34.1 g/dL 33-37 N (test code = MCHC) RED CELL DISTRIBUTION WIDTH 13.1 % 11.5-15.5 N (test code = RDW) PLATELET COUNT (test code = 227 x10 3/uL 130-400 N PLT) MEAN PLATELET VOLUME (test 9.6 fL 9.4-16.4 N code = MPV) NEUTROPHIL % (test code = NT%) 85.1 % 43-65 H IMMATURE GRANULOCYTE % (test 1.2 % 0.0-2.0 N code = IG%) LYMPHOCYTE % (test code = LY%) 9.0 % 20.5-45.5 L MONOCYTE % (test code = MO%) 3.7 % 5.5-11.7 L EOSINOPHIL % (test code = EO%) 0.7 % 0.9-2.9 L BASOPHIL % (test code = BA%) 0.3 % 0.2-1.0 N NUCLEATED RBC % (test code = 0.0 % 0-1.0 N NRBC%) NEUTROPHIL # (test code = NT#) 17.53 x10 3/uL 2.2-4.8 H IMMATURE GRANULOCYTE # (test 0.24 x10 3/uL 0-0.03 H code = IG#) LYMPHOCYTE # (test code = LY#) 1.86 x10 3/uL 1.3-2.9 N MONOCYTE # (test code = MO#) 0.77 x10 3/uL 0.3-0.8 N EOSINOPHIL # (test code = EO#) 0.15 x10 3/uL 0.0-0.2 N BASOPHIL # (test code = BA#) 0.07 x10 3/uL 0.0-0.1 N [id number] 20:06:00 Test Item Value Reference Range Interpretation Comments GLUBED (test code = GLUBED) 212 MG/DL 74-106 H [id number] 16:05:00 Test Item Value Reference Range Interpretation Comments GLUBED (test code = GLUBED) 204 MG/DL 74-106 H [id number] 11:39:00 Test Item Value Reference Range Interpretation Comments GLUBED (test code = GLUBED) 239 MG/DL 74-106 H [id number] 06:18:00 Test Item Value Reference Range Interpretation Comments GLUBED (test code = GLUBED) 174 MG/DL 74-106 H COMPREHENSIVE METABOLIC [id number] 05:28:00 Test Item Value Reference Range Interpretation Comments SODIUM (test code = 132 mmol/L 137-145 L NA) POTASSIUM (test code = 4.0 mmol/L 3.4-5.0 N K) CHLORIDE (test code = 99 mmol/L 98-107 N CL) CARBON DIOXIDE (test 25 mmol/L 22-30 N code = CO2) GLUCOSE (test code = 166 mg/dL 74-106 H GLU) BLOOD UREA NITROGEN 16 mg/dL 9-20 N (test code = BUN) GLOMERULAR FILTRATION 78 >60 The es timated RATE (test code = GFR) glome rular filtration rate is compute d usingpatient ra ce, age (>18), sex, and serum creatinin e. If anyof the neede d data elements are mi ssing the Laboratory cannot compute an gwendolyn mation of the glomerul ar filtration rate . CREATININE (test code 1.0 mg/dL 0.7-1.3 N = CREAT) TOTAL PROTEIN (test 6.2 g/dL 6.3-8.2 L code = PROT) ALBUMIN (test code = 2.9 g/dL 3.5-5.0 L ALB) CALCIUM (test code = 7.5 mg/dL 8.4-10.2 L CA) BILIRUBIN TOTAL (test 2.3 mg/dL 0.2-1.3 H code = BILT) BILIRUBIN CONJUGATED 0 mg/dL 0-0.3 N ~~~~~~~ ~~~~~~~~~~~~~~ (test code = BILCON) ~~~~~~~ ~~~~~~~~~~~~~~ ~~~~~~~~~~~~~~~ ~~~CON JUGATED BILIRUB IN IS THE REPLACEMENT ASSAY FOR DIRECTBILIRUBIN .~~~~~ ~~~~~~~~~~~~~~~ ~~~~~~ ~~~~~~~~~~~~~~~ ~~~~~~ ~~~~~~~~~~~~~ BILIRUBIN UNCONJUGATED 1.1 mg/dL 0-1.1 N (test code = BILUNC) SGOT/AST (test code = 59 U/L 15-46 H AST) SGPT/ALT (test code = 64 U/L 13-69 N ALT) ALKALINE PHOSPHATASE 186 U/L 38-126 H (test code = ALKP) CBC W/AUTO [id number] 05:16:00 Test Item Value Reference Range Interpretation Comments WHITE BLOOD CELL (test code = 21.4 x10 3/uL 5.0-12.0 H WBC) RED BLOOD CELL (test code = 3.72 x10 6/uL 4.70-6.10 L RBC) HEMOGLOBIN (test code = HGB) 11.5 g/dL 14.0-18.0 L HEMATOCRIT (test code = HCT) 34.7 % 37.0-49.0 L MEAN CELL VOLUME (test code = 93 fL 80-94 N MCV) MEAN CELL HGB (test code = 30.9 pg 27-31 N MCH) MEAN CELL HGB CONCENTRATION 33.1 g/dL 33-37 N (test code = MCHC) RED CELL DISTRIBUTION WIDTH 13.2 % 11.5-15.5 N (test code = RDW) PLATELET COUNT (test code = 247 x10 3/uL 130-400 N PLT) MEAN PLATELET VOLUME (test 9.9 fL 9.4-16.4 N code = MPV) NEUTROPHIL % (test code = NT%) 85.7 % 43-65 H IMMATURE GRANULOCYTE % (test 0.8 % 0.0-2.0 N code = IG%) LYMPHOCYTE % (test code = LY%) 9.0 % 20.5-45.5 L MONOCYTE % (test code = MO%) 3.7 % 5.5-11.7 L EOSINOPHIL % (test code = EO%) 0.5 % 0.9-2.9 L BASOPHIL % (test code = BA%) 0.3 % 0.2-1.0 N NUCLEATED RBC % (test code = 0.0 % 0-1.0 N NRBC%) NEUTROPHIL # (test code = NT#) 18.38 x10 3/uL 2.2-4.8 H IMMATURE GRANULOCYTE # (test 0.17 x10 3/uL 0-0.03 H code = IG#) LYMPHOCYTE # (test code = LY#) 1.92 x10 3/uL 1.3-2.9 N MONOCYTE # (test code = MO#) 0.80 x10 3/uL 0.3-0.8 N EOSINOPHIL # (test code = EO#) 0.10 x10 3/uL 0.0-0.2 N BASOPHIL # (test code = BA#) 0.06 x10 3/uL 0.0-0.1 N [id number] 20:25:00 Test Item Value Reference Range Interpretation Comments GLUBED (test code = GLUBED) 247 MG/DL 74-106 H [id number] 16:32:00 Test Item Value Reference Range Interpretation Comments GLUBED (test code = GLUBED) 221 MG/DL 74-106 H [id number] 12:02:00 Test Item Value Reference Range Interpretation Comments GLUBED (test code = GLUBED) 355 MG/DL 74-106 H COMPREHENSIVE METABOLIC [id number] 07:06:00 Test Item Value Reference Range Interpretation Comments SODIUM (test code = 134 mmol/L 137-145 L NA) POTASSIUM (test code = 4.7 mmol/L 3.4-5.0 N K) CHLORIDE (test code = 104 mmol/L 98-107 N CL) CARBON DIOXIDE (test 22 mmol/L 22-30 N code = CO2) GLUCOSE (test code = 231 mg/dL 74-106 H GLU) BLOOD UREA NITROGEN 11 mg/dL 9-20 N (test code = BUN) GLOMERULAR FILTRATION 141 >60 The es timated RATE (test code = GFR) glome rular filtration rate is compute d usingpatient ra ce, age (>18), sex, and serum creatinin e. If anyof the neede d data elements are mi ssing the Laboratory cannot compute an gwendolyn mation of the glomerul ar filtration rate . CREATININE (test code 0.6 mg/dL 0.7-1.3 L = CREAT) TOTAL PROTEIN (test 5.0 g/dL 6.3-8.2 L code = PROT) ALBUMIN (test code = 2.3 g/dL 3.5-5.0 L ALB) CALCIUM (test code = 7.3 mg/dL 8.4-10.2 L CA) BILIRUBIN TOTAL (test 1.3 mg/dL 0.2-1.3 N code = BILT) BILIRUBIN CONJUGATED 0 mg/dL 0-0.3 N ~~~~~~~ ~~~~~~~~~~~~~~ (test code = BILCON) ~~~~~~~ ~~~~~~~~~~~~~~ ~~~~~~~~~~~~~~~ ~~~CON JUGATED BILIRUB IN IS THE REPLACEMENT ASSAY FOR DIRECTBILIRUBIN .~~~~~ ~~~~~~~~~~~~~~~ ~~~~~~ ~~~~~~~~~~~~~~~ ~~~~~~ ~~~~~~~~~~~~~ BILIRUBIN UNCONJUGATED 0.9 mg/dL 0-1.1 N (test code = BILUNC) SGOT/AST (test code = 58 U/L 15-46 H AST) SGPT/ALT (test code = 57 U/L 13-69 N ALT) ALKALINE PHOSPHATASE 135 U/L 38-126 H (test code = ALKP) CBC W/AUTO [id number] 06:52:00 Test Item Value Reference Range Interpretation Comments WHITE BLOOD CELL (test code = 22.4 x10 3/uL 5.0-12.0 H WBC) RED BLOOD CELL (test code = 3.59 x10 6/uL 4.70-6.10 L RBC) HEMOGLOBIN (test code = HGB) 11.1 g/dL 14.0-18.0 L HEMATOCRIT (test code = HCT) 34.0 % 37.0-49.0 L MEAN CELL VOLUME (test code = 95 fL 80-94 H MCV) MEAN CELL HGB (test code = 30.9 pg 27-31 N MCH) MEAN CELL HGB CONCENTRATION 32.6 g/dL 33-37 L (test code = MCHC) RED CELL DISTRIBUTION WIDTH 13.2 % 11.5-15.5 N (test code = RDW) PLATELET COUNT (test code = 241 x10 3/uL 130-400 N PLT) MEAN PLATELET VOLUME (test 9.5 fL 9.4-16.4 N code = MPV) NEUTROPHIL % (test code = NT%) 91.5 % 43-65 H IMMATURE GRANULOCYTE % (test 0.6 % 0.0-2.0 N code = IG%) LYMPHOCYTE % (test code = LY%) 4.7 % 20.5-45.5 L MONOCYTE % (test code = MO%) 3.1 % 5.5-11.7 L EOSINOPHIL % (test code = EO%) 0.0 % 0.9-2.9 L BASOPHIL % (test code = BA%) 0.1 % 0.2-1.0 L NUCLEATED RBC % (test code = 0.0 % 0-1.0 N NRBC%) NEUTROPHIL # (test code = NT#) 20.54 x10 3/uL 2.2-4.8 H IMMATURE GRANULOCYTE # (test 0.13 x10 3/uL 0-0.03 H code = IG#) LYMPHOCYTE # (test code = LY#) 1.05 x10 3/uL 1.3-2.9 L MONOCYTE # (test code = MO#) 0.69 x10 3/uL 0.3-0.8 N EOSINOPHIL # (test code = EO#) 0.00 x10 3/uL 0.0-0.2 N BASOPHIL # (test code = BA#) 0.03 x10 3/uL 0.0-0.1 N [id number] 05:57:00 Test Item Value Reference Range Interpretation Comments GLUBED (test code = GLUBED) 254 MG/DL 74-106 H [id number] 23:47:00 Test Item Value Reference Range Interpretation Comments GLUBED (test code = GLUBED) 242 MG/DL 74-106 H [id number] 20:30:00 Test Item Value Reference Range Interpretation Comments GLUBED (test code = GLUBED) 213 MG/DL 74-106 H [id number] 19:13:00 Test Item Value Reference Range Interpretation Comments GLUBED (test code = GLUBED) 182 MG/DL 74-106 H [id number] 14:25:00 Test Item Value Reference Range Interpretation Comments GLUBED (test code = GLUBED) 115 MG/DL 74-106 H [id number] 12:05:00 Test Item Value Reference Range Interpretation Comments GLUBED (test code = GLUBED) 129 MG/DL 74-106 H [id number] 07:31:00 Test Item Value Reference Range Interpretation Comments MAGNESIUM (test code = MAG) 1.2 mg/dL 1.6-2.3 L [id number] 06:15:00 Test Item Value Reference Range Interpretation Comments GLUBED (test code = GLUBED) 119 MG/DL 74-106 H COMPREHENSIVE METABOLIC [id number] 05:07:00 Test Item Value Reference Range Interpretation Comments SODIUM (test code = 136 mmol/L 137-145 L NA) POTASSIUM (test code = 3.6 mmol/L 3.4-5.0 N K) CHLORIDE (test code = 104 mmol/L 98-107 N CL) CARBON DIOXIDE (test 29 mmol/L 22-30 N code = CO2) GLUCOSE (test code = 132 mg/dL 74-106 H GLU) BLOOD UREA NITROGEN 7 mg/dL 9-20 L (test code = BUN) GLOMERULAR FILTRATION 141 >60 The es timated RATE (test code = GFR) glome rular filtration rate is compute d usingpatient ra ce, age (>18), sex, and serum creatinin e. If anyof the neede d data elements are mi ssing the Laboratory cannot compute an gwendolyn mation of the glomerul ar filtration rate . CREATININE (test code 0.6 mg/dL 0.7-1.3 L = CREAT) TOTAL PROTEIN (test 6.6 g/dL 6.3-8.2 N code = PROT) ALBUMIN (test code = 3.1 g/dL 3.5-5.0 L ALB) CALCIUM (test code = 8.3 mg/dL 8.4-10.2 L CA) BILIRUBIN TOTAL (test 2.0 mg/dL 0.2-1.3 H code = BILT) BILIRUBIN CONJUGATED 0 mg/dL 0-0.3 N ~~~~~~~ ~~~~~~~~~~~~~~ (test code = BILCON) ~~~~~~~ ~~~~~~~~~~~~~~ ~~~~~~~~~~~~~~~ ~~~CON JUGATED BILIRUB IN IS THE REPLACEMENT ASSAY FOR DIRECTBILIRUBIN .~~~~~ ~~~~~~~~~~~~~~~ ~~~~~~ ~~~~~~~~~~~~~~~ ~~~~~~ ~~~~~~~~~~~~~ BILIRUBIN UNCONJUGATED 1.1 mg/dL 0-1.1 N (test code = BILUNC) SGOT/AST (test code = 78 U/L 15-46 H AST) SGPT/ALT (test code = 69 U/L 13-69 N ALT) ALKALINE PHOSPHATASE 236 U/L 38-126 H (test code = ALKP) CBC W/AUTO [id number] 04:47:00 Test Item Value Reference Range Interpretation Comments WHITE BLOOD CELL (test code = 8.3 x10 3/uL 5.0-12.0 N WBC) RED BLOOD CELL (test code = 4.01 x10 6/uL 4.70-6.10 L RBC) HEMOGLOBIN (test code = HGB) 12.3 g/dL 14.0-18.0 L HEMATOCRIT (test code = HCT) 37.1 % 37.0-49.0 N MEAN CELL VOLUME (test code = 93 fL 80-94 N MCV) MEAN CELL HGB (test code = MCH) 30.7 pg 27-31 N MEAN CELL HGB CONCENTRATION 33.2 g/dL 33-37 N (test code = MCHC) RED CELL DISTRIBUTION WIDTH 13.1 % 11.5-15.5 N (test code = RDW) PLATELET COUNT (test code = 260 x10 3/uL 130-400 N PLT) MEAN PLATELET VOLUME (test code 9.0 fL 9.4-16.4 L = MPV) NEUTROPHIL % (test code = NT%) 63.5 % 43-65 N IMMATURE GRANULOCYTE % (test 0.6 % 0.0-2.0 N code = IG%) LYMPHOCYTE % (test code = LY%) 26.7 % 20.5-45.5 N MONOCYTE % (test code = MO%) 6.2 % 5.5-11.7 N EOSINOPHIL % (test code = EO%) 2.2 % 0.9-2.9 N BASOPHIL % (test code = BA%) 0.8 % 0.2-1.0 N NUCLEATED RBC % (test code = 0.0 % 0-1.0 N NRBC%) NEUTROPHIL # (test code = NT#) 5.26 x10 3/uL 2.2-4.8 H IMMATURE GRANULOCYTE # (test 0.05 x10 3/uL 0-0.03 H code = IG#) LYMPHOCYTE # (test code = LY#) 2.21 x10 3/uL 1.3-2.9 N MONOCYTE # (test code = MO#) 0.51 x10 3/uL 0.3-0.8 N EOSINOPHIL # (test code = EO#) 0.18 x10 3/uL 0.0-0.2 N BASOPHIL # (test code = BA#) 0.07 x10 3/uL 0.0-0.1 N [id number] 21:03:00 Test Item Value Reference Range Interpretation Comments GLUBED (test code = GLUBED) 140 MG/DL 74-106 H Novel Coronavirus 2018 [id number] 17:09:00 Test Item Value Reference Range Interpretation Comments Novel Coronavirus 2018 Inhouse (test Negative Negative code = COVNONPUI) SENT TO: [facility] SPECIMEN TYPE: NASOPHARYNGEAL SWABSpec Comments: ACUTE CHOLECYSTITIS; POSSIBLE OR 09/23/2019Testing Criteria: Pre-procedure Screening Novel Coronavirus 2018 [id number] 17:09:00 Test Item Value Reference Range Interpretation Comments Novel Coronavirus Negative Negative Positive r esults are 2019 Inhouse (test indicativ e of the presence code = COVNONPUI) ofSARS-CoV -2 RNA, clinical correlation wit h patient historyand othe r diagnostic info rmation is necessary to determinepatien t infection status. Positiv e results do not rule out bacterial infection or co -infection with other viru ses. Negative result s do not preclude SARS-C oV-2 infection andsh ould not be used as the tonya e basis for patient managementdecis ions. Negative result s must be combined with otherclinical observations, p atient history, and epidemiological information . Detection of SARS-CoV-2 RNA may be affe cted bysample collec tion methods, storag e conditions, and /or stageof infection. Krupa l RNA mutations, vacc inations, antiviraltherap eutics, antibiotics, chemotherapeuti c orimmunosuppres catalino drugs have not been e valuated for effectson d etection. Results are for the identification of SARS-CoV-2 RNA usingthe Findery M2000 Sy stem under the FDA Emergen cy UseAuthorizatio n. The testing is perf ormed by juan ramon serrano in the procedures for the Pereyra M2000 molecular diagnostic SARS-CoV-2 assa y in vitro. SENT TO: [facility] SPECIMEN TYPE: NASOPHARYNGEAL SWABSpec Comments: ACUTE CHOLECYSTITIS; POSSIBLE OR 09/23/2019Testing Criteria: Pre-procedure Screening [id number] 15:42:00 Test Item Value Reference Range Interpretation Comments GLUBED (test code = GLUBED) 227 MG/DL 74-106 H HGBA1C - GLYCOSYLATED [id number] 13:01:00 Test Item Value Reference Range Interpretation Comments GLYCOSYLATED 9.5 % 0-5.9 H Current guideli sada recommend HEMOGLOBIN (HA1C) a treatmen t goal of <7% (test code = GLYHGB) fordiab etic patients. A1c may be overesti mated in diabeticpatient s exhibiting poor control an d who are alsoheterozygou s or homozygous for HgbS or HgbC. Totalglycohemog lobin is a better indicato r of diabetic control inpatie nts with these hemoglobi n variants. [id number] 11:56:00 Test Item Value Reference Range Interpretation Comments GLUBED (test code = GLUBED) 270 MG/DL 74-106 H COMPREHENSIVE METABOLIC [id number] 09:16:00 Test Item Value Reference Range Interpretation Comments SODIUM (test code = 137 mmol/L 137-145 N NA) POTASSIUM (test code = 3.6 mmol/L 3.4-5.0 N K) CHLORIDE (test code = 105 mmol/L 98-107 N CL) CARBON DIOXIDE (test 25 mmol/L 22-30 N code = CO2) GLUCOSE (test code = 152 mg/dL 74-106 H GLU) BLOOD UREA NITROGEN 10 mg/dL 9-20 N (test code = BUN) GLOMERULAR FILTRATION 118 >60 The es timated RATE (test code = GFR) glome rular filtration rate is compute d usingpatient ra ce, age (>18), sex, and serum creatinin e. If anyof the neede d data elements are mi ssing the Laboratory cannot compute an gwendolyn mation of the glomerul ar filtration rate . CREATININE (test code 0.7 mg/dL 0.7-1.3 N = CREAT) TOTAL PROTEIN (test 6.4 g/dL 6.3-8.2 N code = PROT) ALBUMIN (test code = 3.0 g/dL 3.5-5.0 L ALB) CALCIUM (test code = 8.2 mg/dL 8.4-10.2 L CA) BILIRUBIN TOTAL (test 1.8 mg/dL 0.2-1.3 H code = BILT) BILIRUBIN CONJUGATED 0 mg/dL 0-0.3 N ~~~~~~~ ~~~~~~~~~~~~~~ (test code = BILCON) ~~~~~~~ ~~~~~~~~~~~~~~ ~~~~~~~~~~~~~~~ ~~~CON JUGATED BILIRUB IN IS THE REPLACEMENT ASSAY FOR DIRECTBILIRUBIN .~~~~~ ~~~~~~~~~~~~~~~ ~~~~~~ ~~~~~~~~~~~~~~~ ~~~~~~ ~~~~~~~~~~~~~ BILIRUBIN UNCONJUGATED 1.0 mg/dL 0-1.1 N (test code = BILUNC) SGOT/AST (test code = 56 U/L 15-46 H AST) SGPT/ALT (test code = 66 U/L 13-69 N ALT) ALKALINE PHOSPHATASE 221 U/L 38-126 H (test code = ALKP) [id number] 09:16:00 Test Item Value Reference Range Interpretation Comments PHOSPHOROUS (test code = PHOS) 3.3 mg/dL 2.5-4.5 N [id number] 09:16:00 Test Item Value Reference Range Interpretation Comments MAGNESIUM (test code = 0.9 mg/dL 1.6-2.3 L Criti warren Value MAG) reported toFirs t Name: [id number] Name:RESULTS RE AD BACK AND VERIFIEDby C.LAB.MY, on , @ 0916. [id number] 06:45:00 Test Item Value Reference Range Interpretation Comments GLUBED (test code = GLUBED) 133 MG/DL 74-106 H CBC W/AUTO [id number] 06:29:00 Test Item Value Reference Range Interpretation Comments WHITE BLOOD CELL (test code = 10.5 x10 3/uL 5.0-12.0 N WBC) RED BLOOD CELL (test code = 3.98 x10 6/uL 4.70-6.10 L RBC) HEMOGLOBIN (test code = HGB) 12.3 g/dL 14.0-18.0 L HEMATOCRIT (test code = HCT) 36.4 % 37.0-49.0 L MEAN CELL VOLUME (test code = 92 fL 80-94 N MCV) MEAN CELL HGB (test code = MCH) 30.9 pg 27-31 N MEAN CELL HGB CONCENTRATION 33.8 g/dL 33-37 N (test code = MCHC) RED CELL DISTRIBUTION WIDTH 13.2 % 11.5-15.5 N (test code = RDW) PLATELET COUNT (test code = 293 x10 3/uL 130-400 N PLT) MEAN PLATELET VOLUME (test code 9.2 fL 9.4-16.4 L = MPV) NEUTROPHIL % (test code = NT%) 70.3 % 43-65 H IMMATURE GRANULOCYTE % (test 0.8 % 0.0-2.0 N code = IG%) LYMPHOCYTE % (test code = LY%) 21.2 % 20.5-45.5 N MONOCYTE % (test code = MO%) 5.4 % 5.5-11.7 L EOSINOPHIL % (test code = EO%) 1.6 % 0.9-2.9 N BASOPHIL % (test code = BA%) 0.7 % 0.2-1.0 N NUCLEATED RBC % (test code = 0.0 % 0-1.0 N NRBC%) NEUTROPHIL # (test code = NT#) 7.35 x10 3/uL 2.2-4.8 H IMMATURE GRANULOCYTE # (test 0.08 x10 3/uL 0-0.03 H code = IG#) LYMPHOCYTE # (test code = LY#) 2.22 x10 3/uL 1.3-2.9 N MONOCYTE # (test code = MO#) 0.56 x10 3/uL 0.3-0.8 N EOSINOPHIL # (test code = EO#) 0.17 x10 3/uL 0.0-0.2 N BASOPHIL # (test code = BA#) 0.07 x10 3/uL 0.0-0.1 N [id number] 23:11:00 Test Item Value Reference Range Interpretation Comments GLUBED (test code = GLUBED) 283 MG/DL 74-106 H [id number] 16:03:00 Test Item Value Reference Range Interpretation Comments GLUBED (test code = GLUBED) 208 MG/DL 74-106 H [id number] 13:05:00 Test Item Value Reference Range Interpretation Comments GLUBED (test code = GLUBED) 136 MG/DL 74-106 H - MRI [id number] 12:49:00 FAX: Lizzy Petersen MD [phone] [place]: St: ADM FAX: Dulce Bradford MD [phone] Name: SEYMOUR SNOW [facility] : 1950 Age/S: 69/M [address] Unit #: [id number] Loc: C.[address] [place] [address] Phys: Dulce Bradford MD Acct: [id number] Dis Date: Status: ADM IN PHONE #: [phone] Exam Date: 09/23/2019 1220 FAX #: [phone] Reason: BILIARY PANCREATITIS, SUSPECT CHOLEDOCHOLITHIAS EXAMS: CPT CODE: [id number] MRI MRCP [id number] Indication: BILIARY PANCREATITIS, SUSPECT CHOLEDOCHOLITHIASISTECHNIQUE: MRI of the upper abdomen is obtained without intravenous gadolinium using planar T2 imaging. In phase out of phase imaging as well as Thin and thick slab images of the right upper abdomen were also obtained using the MR cholangiography protocol. COMPARISON: Ultrasound study of 09/22/2019 is reviewed. LOCATION: T18 FINDINGS: The liver is normal in size but mildly microlobulated. There is a 2.2 cm cyst within the right posterior liver, segment 6. There is normal visualization of the intrahepatic biliary tree, the common hepatic ducts and the common bile duct. The common bile duct is estimated at 7 mm. The pancreatic duct appears normal. No filling defect signals are seen within the common bile duct. The gallbladder is distended with mild gallbladder wall thickening. There is moderate sludge and a small low intensity gallstones. The images of the spleen, pancreas, adrenals, and the kidneysappear normal. There are varices in the splenic hilum. The visualized loops of bowel in the upper abdomen are unremarkable. The visualized aortic, IVC and the portal vein flow voids are normal. There is no gross evidence of upper abdominal aortic aneurysm. No ascites seen. IMPRESSION: 1. Thickened, distended gallbladder with sludge and gallstones. 2. Mildly microlobulated liver, suggests underlying cirrhotic liver disease. 3. There is a 2.2 cm cysts within the right posterior liver. PAGE 1 Signed Report (CONTINUED) FAX: Lizzy Petersen MD [phone] [place]: St: ADM FAX: Dulce Bradford MD [phone] Name: JAYLA MICHAELSEYOMUR HARDIN [facility] : 1950 Age/S: 69/M [address] Unit #: [id number] Loc: C.[address] [place] [id number] Phys: uDlce Bradford MD Acct: [id number] Dis Date: Status: ADM IN PHONE #: [phone] Exam Date: 09/23/2019 1220 FAX #: [phone] Reason: BILIARY PANCREATITIS, SUSPECT CHOL EDOCHOLITHIAS EXAMS: CPT CODE: [id number] MRI MRCP [id number] (Continued) at 0271 Reported and signed by: RONDA ARITA MD CC: Lizzy Duke MD;Dulce Bradford MD Technologist: FELIZ RAHMAN Trnscrd Date/Time/By: 09/23/2019 (0949) : By: [email or web address] PAGE 2 Signed Report FAX: Lizzy Petersen MD [phone] [place]: St: ADM FAX: Dulce Bradford [phone] Name: SEYMOUR SNOW [facility] : 1950 Age/S: 69/M [address] Unit #: [id number] Loc:C.[address] [place] [address] Phys: Dulce Bradford MD Acct: [id number] Dis Date: Status: ADM IN PHONE#: [phone] Exam Date: 09/23/2019 1220 FAX #: [phone] Reason: BILIARY PANCREATITIS, SUSPECT CHOLEDOCHOLITHIAS EXAMS: CPT CODE: [id number] MRI MRCP [id number] (Continued) Orig Print D/T: S: 09/23/2019 (1252) PAGE 3 Signed [id number] 06:28:00 Test Item Value Reference Range Interpretation Comments GLUBED (test code = GLUBED) 146 MG/DL 74-106 H LIVER FUNCTION [id number] 04:53:00 Test Item Value Reference Range Interpretation Comments TOTAL PROTEIN (test 6.3 g/dL 6.3-8.2 N code = PROT) ALBUMIN (test code = 3.0 g/dL 3.5-5.0 L ALB) BILIRUBIN TOTAL (test 2.0 mg/dL 0.2-1.3 H code = BILT) BILIRUBIN CONJUGATED 0 mg/dL 0-0.3 N ~~~~~~~ ~~~~~~~~~~~~~~ (test code = BILCON) ~~~~~~~ ~~~~~~~~~~~~~~ ~~~~~~~~~~~~~~~ ~~~CON JUGATED BILIRUB IN IS THE REPLACEMENT ASSAY FOR DIRECTBILIRUBIN .~~~~~ ~~~~~~~~~~~~~~~ ~~~~~~ ~~~~~~~~~~~~~~~ ~~~~~~ ~~~~~~~~~~~~~ BILIRUBIN UNCONJUGATED 1.1 mg/dL 0-1.1 N (test code = BILUNC) SGOT/AST (test code = 53 U/L 15-46 H AST) SGPT/ALT (test code = 69 U/L 13-69 N ALT) ALKALINE PHOSPHATASE 223 U/L 38-126 H (test code = ALKP) [id number] 04:53:00 Test Item Value Reference Range Interpretation Comments LIPASE (test code = LIP) 225 U/L 23-300 N CBC W/AUTO [id number] 04:29:00 Test Item Value Reference Range Interpretation Comments WHITE BLOOD CELL (test code = 10.7 x10 3/uL 5.0-12.0 N WBC) RED BLOOD CELL (test code = 3.98 x10 6/uL 4.70-6.10 L RBC) HEMOGLOBIN (test code = HGB) 12.5 g/dL 14.0-18.0 L HEMATOCRIT (test code = HCT) 35.8 % 37.0-49.0 L MEAN CELL VOLUME (test code = 90 fL 80-94 N MCV) MEAN CELL HGB (test code = MCH) 31.4 pg 27-31 H MEAN CELL HGB CONCENTRATION 34.9 g/dL 33-37 N (test code = MCHC) RED CELL DISTRIBUTION WIDTH 13.2 % 11.5-15.5 N (test code = RDW) PLATELET COUNT (test code = 263 x10 3/uL 130-400 N PLT) MEAN PLATELET VOLUME (test code 9.5 fL 9.4-16.4 N = MPV) NEUTROPHIL % (test code = NT%) 71.6 % 43-65 H IMMATURE GRANULOCYTE % (test 1.0 % 0.0-2.0 N code = IG%) LYMPHOCYTE % (test code = LY%) 20.4 % 20.5-45.5 L MONOCYTE % (test code = MO%) 4.8 % 5.5-11.7 L EOSINOPHIL % (test code = EO%) 1.7 % 0.9-2.9 N BASOPHIL % (test code = BA%) 0.5 % 0.2-1.0 N NUCLEATED RBC % (test code = 0.0 % 0-1.0 N NRBC%) NEUTROPHIL # (test code = NT#) 7.68 x10 3/uL 2.2-4.8 H IMMATURE GRANULOCYTE # (test 0.11 x10 3/uL 0-0.03 H code = IG#) LYMPHOCYTE # (test code = LY#) 2.18 x10 3/uL 1.3-2.9 N MONOCYTE # (test code = MO#) 0.51 x10 3/uL 0.3-0.8 N EOSINOPHIL # (test code = EO#) 0.18 x10 3/uL 0.0-0.2 N BASOPHIL # (test code = BA#) 0.05 x10 3/uL 0.0-0.1 N [id number] 20:01:00 Test Item Value Reference Range Interpretation Comments GLUBED (test code = GLUBED) 152 MG/DL 74-106 H LIPID PROFILE (CORONARY RISK)2019-09-22 18:15:00 Test Item Value Reference Range Interpretation Comments TRIGLYCERIDES (test 189 mg/dL TRIGLYCE RIDES code = TRIG) REFERENCE RANGE:Normal: < 150 mg/dLBorderline High: 150-199 mg/dLHigh: 200- 499 mg/dLVery High: >=500 mg/dL CHOLESTEROL (test 188 mg/dL CHOLESTERO L code = CHOL) REFERENCE RANGE:DESIRABLE : < 200 mg/dLBORDER LINE: 200-239 mg/dLHI GH: >=240 mg/dL HDL CHOLESTEROL (test 23 mg/dL 40-59 L code = HDL) LIPOPROTEIN LDL (test 101.68 mg/dL 32-99 H code = LDLC) CORONARY RISK FACTOR 8.17 CHOL/ HDL RISK (test code = RISK) MALE: 1/2 AVG 3.43 FEMALE: 1/2 AVG 3.27 AVG 4.97 AVG 4. 44 2X AVG 9.55 2X AVG 7.05 3X AVG 23.39 3 X AVG 11.04~~~~~~~~~~ ~~~~~ ~~~~~~~~~~~~~~~ ~~~~~ ~~~~~~~~~~~~~~~ ~~~~~ ~~~~~National Cholesterol Education (NCEP ) Guidelines:~~~~ ~~~~~ ~~~~~~~~~~~~~~~ ~~~~~ ~~~~~~~~~~~~~~~ ~~~~~ ~~~~~~~~~~~ HDL Cholesterol<4 0mg/d L: HDL Choleste rol (Major risk fac tor for CHD)>60mg/d L: HDL Cholesterol (Negative risk factor for CHD)40-59mg/dL: Borderline Risk LDL Cholesterol<1 00mg/ dL: Desirable L DL-C [id number] 0-159 mg/dL: Borderli ne High Risk LDL-C hsjxdtfvqtauk52 0-189 mg/dL: High ris k LDL-C concentra tion HDL-LDL Cholest daija is affected by a number of facto rs suchas smoking, age and sex.~~~~~~~~~~~ ~~~~~ ~~~~~~~~~~~~~~~ ~~~~~ ~~~~~~~~~~~~~~~ ~~~~~ ~~~~ LIPID PROFILE (CORONARY RISK)2019-09-22 18:10:00 Test Item Value Reference Range Interpretation Comments TRIGLYCERIDES (test 189 mg/dL TRIGLYCE RIDES code = TRIG) REFERENCE RANGE:Normal: < 150 mg/dLBorderline High: 150-199 mg/dLHi gh: 200-499 mg/dLVe ry High: >=500 mg/ dL CHOLESTEROL (test code 188 mg/dL LOLY STEROL REFERENCE = CHOL) RANGE:DESIRABLE : < 200 mg/dLBORDERLINE : 200-239 mg/dLHI GH: >=240 mg/dL HDL CHOLESTEROL (test 23 mg/dL 40-59 L code = HDL) LIPOPROTEIN LDL (test mg/dL 32-99 code = LDLC) CORONARY RISK FACTOR 8.17 CHOL/H DL RISK MALE: (test code = RISK) 1/2 AVG 3 .43 FEMALE: 1/2 AVG 3.27 A VG 4.97 AVG 4.44 2X AVG 9.55 2X AVG 7.05 3X AVG 23.39 3X AVG 11.04~~~~~~~~~~ ~~~~~~~ ~~~~~~~~~~~~~~~ ~~~~~~~ ~~~~~~~~~~~~~~~ ~~~~~~N ational Cholest daija Education (NCEP ) Guidelines:~~~~ ~~~~~~~ ~~~~~~~~~~~~~~~ ~~~~~~~ ~~~~~~~~~~~~~~~ ~~~~~~~ ~~~~~ HDL Cholesterol<4 0mg/dL: HDL Cholesterol (Major risk factor for CHD)>60mg/dL: H DL Cholesterol (Ne gative risk factor for CHD)40-59mg/dL: Borderline Risk LDL Cholesterol<1 00mg/dL : Desirable LDL -C [id number] 0-159mg /dL: Borderline High Risk LDL-C thonlllhfvwzk08 0-189mg /dL: High risk LDL-C concentration H DL-LDL Cholesterol is affected by a n umber of factors such as smoking, age an d sex.~~~~~~~~~~~ ~~~~~~~ ~~~~~~~~~~~~~~~ ~~~~~~~ ~~~~~~~~~~~~~~~ ~~~~~ LACTIC [id number] 18:03:00 Test Item Value Reference Range Interpretation Comments LACTIC ACID (test code = LACT) 1.8 mmol/L 0.7-2.0 N URINALYSIS [id number] 17:29:00 Test Item Value Reference Range Interpretation Comments UA COLOR (test code = COLU) Yellow Yellow UA APPEARANCE (test code = Clear Clear APPU) UA GLUCOSE DIPSTICK (test code 150 (2+) Negative A = DGLUU) UA BILIRUBIN DIPSTICK (test Negative Negative code = BILU) UA KETONE DIPSTICK (test code Negative mg/dL Negative = KETU) UA SPECIFIC GRAVITY (test code 1.014 <1.030 = SGU) UA BLOOD DIPSTICK (test code = Negative Negative BUTCH) UA PH DIPSTICK (test code = 6.0 5.0-8.0 ECHO) UA PROTEIN DIPSTICK (test code NEGATIVE mg/dL Negative = PROU) UA UROBILINOGEN DIPSTICK (test Negative mg/dL Negative code = URO) UA NITRITE DIPSTICK (test code Negative Negative = SHANDA) UA LEUKOCYTE ESTERASE DIPSTICK NEGATIVE Negative (test code = LEUU) UA WBC (test code = WBCU) 0-3 /HPF <4-5 UA RBC (test code = RBCU) 0-3 /HPF <4-5 UA BACTERIA (test code = BACU) NONE SEEN /HPF None-Rare - US ABDOMEN [id number] 15:54:00 [place]: St: REG -- Name: SEYMOUR SNOW [facility] : 1950 Age/S: 69/M [address] Unit #: [id number] Loc: [place] [address] Phys: Dimple Hicks MEDICAL DEVICE Acct: [id number] Dis Date: Status: REG ER PHONE #: [phone] Exam Date: 09/22/2019 1548 FAX #: [phone] Reason: RUQ ABD PAIN EXAMS: CPT CODE: [id number] US ABDOMEN LTD [id number] LOCATION: T18 EXAM: - US ABDOMEN LTD INDICATION: Rightupper quadrant abdominal pain COMPARISON: None. TECHNIQUE: Real-time grayscale sonographic images ofthe abdomen are submitted for interpretation. FINDINGS: Pancreas is obscured by overlying artifact. A bdominal aorta and IVC are also obscured by overlying artifact. Liver is heterogeneous measuring 14.3 cm in size. Nodular contour of the liver noted. No focal soft tissue mass is seen. However there goldy simple hepatic cyst measuring 2.3 x 2.1 x 2.2 cm. Gallbladder is adequately distended. Gallbladder is filled with sludge and multiple stones. Largest stone measures 2 cm in size. Gallbladder wall isthickened measuring 4.9 mm. No pericholecystic fluid is present. No sonographic Byers's sign was elicited. Common bile duct measures 2.4 mm diameter. Right kidney is normal in echogenicity measuring 11.4 x 5.8 x 6.5 cm. Renal cortex measures 1.9 cm in thickness. No focal abnormality or hydronephrosisis identified. IMPRESSION: Distended gallbladder filled with sludge and stones measuring up to 2 similar. Gallbladder wall thickening. Findings concerning for cholecystitis. Cirrhotic heterogeneous liver. at 1554 Reported and signed by: Ari Mcdonnell MD CC: Technologist: GISELE PIERCE Trnscrd Date/Time/By: 09/22/2019 (0356) : By: [id number] 1 Signed Report [place]: St: REG Name: JAYLA SARAHSEYMOUR VELASQUEZ [facility] : 1950 Age/S: 69/M [address] Unit #: [id number] Loc: [place] [address] Phys: Dimple Hicks MEDICAL DEVICE Acct: [id number] Dis Date: Status: REG ER PHONE #: [phone] Exam Date: 09/22/2019 9928 FAX #: [phone] Reason: RUQ ABD PAIN EXAMS: CPT CODE: [id number] US ABDOMEN LTD [id number] (Continued) Orig Print D/T: S: 09/22/2019 (0479) PAGE 2 Signed ReportTROPONIN I [id number] 15:50:00 Test Item Value Reference Range Interpretation Comments TROPONIN I RAPID 0.00 ng/mL 0.00-0.079 N ISTAT TROP ONIN I (test code = CRITERIA0.00-0. 08 ng/mL - TROPIRAP) Negative>0.08 n g/mL - Positive The us e of serial sampling and te sting protocol is are commended practice.An mauro vated troponin level alone is often not suffi cient fordiagnosis of myocardial infarction. Crystal farleyin results obtaine d by different assay s may vary.Evaluation of the extent of myoca rdial damage based on increase of troponin would be valid only if similar methodology is used. BASIC METABOLIC [id number] 15:49:00 Test Item Value Reference Range Interpretation Comments SODIUM (test code = 132 mmol/L 137-145 L NA) POTASSIUM (test code 3.9 mmol/L 3.4-5.0 N = K) CHLORIDE (test code = 101 mmol/L 98-107 N CL) CARBON DIOXIDE (test 20 mmol/L 22-30 L code = CO2) GLUCOSE (test code = 237 mg/dL 74-106 H GLU) BLOOD UREA NITROGEN 21 mg/dL 9-20 H (test code = BUN) GLOMERULAR FILTRATION 88 >60 The es timated RATE (test code = glomerular filtration GFR) rate is compute d usingpatient ra ce, age (>18), sex, and serum creatinine. If anyof the needed data elements are mi ssing the Laboratory cannot compute an gwendolyn mation of the glomerul ar filtration rate . CREATININE (test code 0.9 mg/dL 0.7-1.3 N = CREAT) CALCIUM (test code = 8.2 mg/dL 8.4-10.2 L CA) LIVER FUNCTION [id number] 15:49:00 Test Item Value Reference Range Interpretation Comments TOTAL PROTEIN (test 7.0 g/dL 6.3-8.2 N code = PROT) ALBUMIN (test code = 3.3 g/dL 3.5-5.0 L ALB) BILIRUBIN TOTAL (test 2.2 mg/dL 0.2-1.3 H code = BILT) BILIRUBIN CONJUGATED 0 mg/dL 0-0.3 N ~~~~~~~ ~~~~~~~~~~~~~~ (test code = BILCON) ~~~~~~~ ~~~~~~~~~~~~~~ ~~~~~~~~~~~~~~~ ~~~CON JUGATED BILIRUB IN IS THE REPLACEMENT ASSAY FOR DIRECTBILIRUBIN .~~~~~ ~~~~~~~~~~~~~~~ ~~~~~~ ~~~~~~~~~~~~~~~ ~~~~~~ ~~~~~~~~~~~~~ BILIRUBIN UNCONJUGATED 0.9 mg/dL 0-1.1 N (test code = BILUNC) SGOT/AST (test code = 65 U/L 15-46 H AST) SGPT/ALT (test code = 68 U/L 13-69 N ALT) ALKALINE PHOSPHATASE 272 U/L 38-126 H (test code = ALKP) [id number] 15:49:00 Test Item Value Reference Range Interpretation Comments LIPASE (test code = LIP) 501 U/L 23-300 H LACTIC [id number] 15:47:00 Test Item Value Reference Range Interpretation Comments LACTIC ACID (test 2.6 mmol/L 0.7-2.0 HH Critical V alue reported code = LACT) toFirst Name:SIMON [id number] Last Name:BETI ROJAS READ BACK AND REUBEN DunbarLAB.ZA, on , @ 6284. PROTHROMBIN [id number] 15:38:00 Test Item Value Reference Range Interpretation Comments PROTHROMBIN TIME 15.4 SECONDS 9.2-12.1 H PATIENT (test code = PTP) INTERNATIONAL NORMAL 1.4 The INR is to be used RATIO (test code = only for monitoring INR) ORAL ANTICOAGULANTTH ERAPY. Indication INR Value1. Prophylaxis/art atment of: Venous Thro mbosis, Pulmonary Embol ism 2.0 - 3.02. Prevent ion of systemic emboli sm from: Tissue he art valves 2.0 - 3 .0 Acute myocardia l infarction (to present systemic emboli sm)* 2.0 - 3.0 Valvu lar heart disease 2 .0 - 3.0 Atrial fibrillation 2. 0 - 3.03. Mechanica l prosthetic valv es (high risk) 2.5 - 3.5 * If oral anticoagulant t herapy is elected to preventrecurren t myocardial infa rction, an INR of 2.5-3 .5 isrecommended, consistent with Food and Drug Administrationr ecommen dations. IS PATIENT ON ANTICOAGULANTS ? [facility] W/AUTO [id number] 15:27:00 Test Item Value Reference Range Interpretation Comments WHITE BLOOD CELL (test code = 9.4 x10 3/uL 5.0-12.0 N WBC) RED BLOOD CELL (test code = 4.13 x10 6/uL 4.70-6.10 L RBC) HEMOGLOBIN (test code = HGB) 13.0 g/dL 14.0-18.0 L HEMATOCRIT (test code = HCT) 36.8 % 37.0-49.0 L MEAN CELL VOLUME (test code = 89 fL 80-94 N MCV) MEAN CELL HGB (test code = MCH) 31.5 pg 27-31 H MEAN CELL HGB CONCENTRATION 35.3 g/dL 33-37 N (test code = MCHC) RED CELL DISTRIBUTION WIDTH 13.1 % 11.5-15.5 N (test code = RDW) PLATELET COUNT (test code = 261 x10 3/uL 130-400 N PLT) MEAN PLATELET VOLUME (test code 9.4 fL 9.4-16.4 N = MPV) NEUTROPHIL % (test code = NT%) 77.0 % 43-65 H IMMATURE GRANULOCYTE % (test 0.8 % 0.0-2.0 N code = IG%) LYMPHOCYTE % (test code = LY%) 16.8 % 20.5-45.5 L MONOCYTE % (test code = MO%) 3.8 % 5.5-11.7 L EOSINOPHIL % (test code = EO%) 1.0 % 0.9-2.9 N BASOPHIL % (test code = BA%) 0.6 % 0.2-1.0 N NUCLEATED RBC % (test code = 0.0 % 0-1.0 N NRBC%) NEUTROPHIL # (test code = NT#) 7.26 x10 3/uL 2.2-4.8 H IMMATURE GRANULOCYTE # (test 0.08 x10 3/uL 0-0.03 H code = IG#) LYMPHOCYTE # (test code = LY#) 1.58 x10 3/uL 1.3-2.9 N MONOCYTE # (test code = MO#) 0.36 x10 3/uL 0.3-0.8 N EOSINOPHIL # (test code = EO#) 0.09 x10 3/uL 0.0-0.2 N BASOPHIL # (test code = BA#) 0.06 x10 3/uL 0.0-0.1 N - DUP VEIN [id number] 17:58:00 [place]: St: REG -- Name: JAYLA MICHAELREWayneSEYMOUR [facility] : 1950 Age/S: 68/M [address] Unit #: [id number] Loc: [place] [address] Phys: Pito Hayden MD Acct: [id number] Dis Date: Status: REGER PHONE #: [phone] Exam Date: 10/26/2018 1736 FAX #: [phone] Reason: leg swelling EXAMS: CPT CODE: [id number] [facility] VEIN RAJANI [id number] Location: T18 Lower extremity venous doppler ultrasound, bilateral. HISTORY: Bilateral leg swelling TECHNIQUE: Real-time sonographic, pulse and color Doppler imaging of the deep venous system was performed bilaterally. FINDINGS: Common femoral, superficial femoral, popliteal and tibial veins are imaged and demonstrate normal color Doppler flow, phasicity and compressibility. No deep venous thrombus demonstrated. IMPRESSION: No evidence of right or left lower extremity DVT at 1758 Reported and signed by: Kaden Coyle MD CC: Technologist: HERBIE NEFF Trnscrd Date/Time/By: 10/26/2018 (1758) : By: [email or web address] PAGE 1 Signed Report [place]: St: REG Name: SEYMOUR [facility] : 1950 Age/S: 68/M [address] Unit #: [id number] Loc: [place] [address] Phys: Pito Hayden MD Acct: [id number] Dis Date: Status: REG ER PHONE #: [phone] Exam Date: 10/26/2018 1736 FAX #: [phone] Reason: leg swelling EXAMS: CPT CODE: [id number] DUP VEIN RAJANI [id number] (Continued) Orig Print D/T: S: 10/26/2018 (1801) PAGE 2 Signed ReportBASIC METABOLIC [id number] 17:01:00 Test Item Value Reference Range Interpretation Comments SODIUM (test code = 138 mmol/L 137-145 N NA) POTASSIUM (test code 3.5 mmol/L 3.4-5.0 N = K) CHLORIDE (test code = 105 mmol/L 98-107 N CL) CARBON DIOXIDE (test 26 mmol/L 22-30 N code = CO2) GLUCOSE (test code = 237 mg/dL 74-106 H GLU) BLOOD UREA NITROGEN 17 mg/dL 9-20 N (test code = BUN) GLOMERULAR FILTRATION 175 >60 The es timated RATE (test code = glomerular filtration GFR) rate is compute d usingpatient ra ce, age (>18), sex, and serum creatinine. If anyof the needed data elements are mi ssing the Laboratory cannot compute an gwnedolyn mation of the glomerul ar filtration rate . CREATININE (test code 0.5 mg/dL 0.7-1.3 L = CREAT) CALCIUM (test code = 9.3 mg/dL 8.4-10.2 N CA) LIVER FUNCTION [id number] 17:01:00 Test Item Value Reference Range Interpretation Comments TOTAL PROTEIN (test 7.3 g/dL 6.3-8.2 N code = PROT) ALBUMIN (test code = 4.0 g/dL 3.5-5.0 N ALB) BILIRUBIN TOTAL (test 0.8 mg/dL 0.2-1.3 N code = BILT) BILIRUBIN CONJUGATED 0 mg/dL 0-0.3 N ~~~~~~~ ~~~~~~~~~~~~~~ (test code = BILCON) ~~~~~~~ ~~~~~~~~~~~~~~ ~~~~~~~~~~~~~~~ ~~~CON JUGATED BILIRUB IN IS THE REPLACEMENT ASSAY FOR DIRECTBILIRUBIN .~~~~~ ~~~~~~~~~~~~~~~ ~~~~~~ ~~~~~~~~~~~~~~~ ~~~~~~ ~~~~~~~~~~~~~ BILIRUBIN UNCONJUGATED 0.6 mg/dL 0-1.1 N (test code = BILUNC) SGOT/AST (test code = 62 U/L 15-46 H AST) SGPT/ALT (test code = 60 U/L 13-69 N ALT) ALKALINE PHOSPHATASE 55 U/L 38-126 N (test code = ALKP) NT PRO-BRAIN NATRIURETIC [id number] 17:01:00 Test Item Value Reference Range Interpretation Comments NT PRO-BRAIN 116 pg/mL 0-299 N ~~~~~~~~~~~~~~~ ~~~~~~~~~ NATRIURETIC PEPTI ~~~~~~~~~~ ~~~~~~~~~~~~~~ (test code = PROBNP) ~~~~~~~ ~~~~~NT PRO-BNP IS THE REPLACEM ENT ASSAY FOR BNP.~~~~~~~~~~~ ~~~~~~~~~ ~~~~~~~~~~~~~~~ ~~~~~~~~~ ~~~~~~~~~~~~~~~ ~RULE-IN CUT POINTS FOR PATIENTS WITH SUSPECTED ACUTECONGESTIVE HEART FAILURE:<50 yrs old: >450 pg/mL50-75 yrs old: >900 pg/mL>75 y rs old: >1800 pg/mL A positive bias m ay occur on patients pam ing BIOTINsupplemen ts. BASIC METABOLIC [id number] 16:51:00 Test Item Value Reference Range Interpretation Comments SODIUM (test code = 138 mmol/L 137-145 N NA) POTASSIUM (test code 3.5 mmol/L 3.4-5.0 N = K) CHLORIDE (test code = 105 mmol/L 98-107 N CL) CARBON DIOXIDE (test 26 mmol/L 22-30 N code = CO2) GLUCOSE (test code = 237 mg/dL 74-106 H GLU) BLOOD UREA NITROGEN 17 mg/dL 9-20 N (test code = BUN) GLOMERULAR FILTRATION 175 >60 The es timated RATE (test code = glomerular filtration GFR) rate is compute d usingpatient ra ce, age (>18), sex, and serum creatinine. If anyof the needed data elements are mi ssing the Laboratory cannot compute an gwendolyn mation of the glomerul ar filtration rate . CREATININE (test code 0.5 mg/dL 0.7-1.3 L = CREAT) CALCIUM (test code = 9.3 mg/dL 8.4-10.2 N CA) LIVER FUNCTION [id number] 16:51:00 Test Item Value Reference Range Interpretation Comments TOTAL PROTEIN (test 7.3 g/dL 6.3-8.2 N code = PROT) ALBUMIN (test code = 4.0 g/dL 3.5-5.0 N ALB) BILIRUBIN TOTAL (test 0.8 mg/dL 0.2-1.3 N code = BILT) BILIRUBIN CONJUGATED 0 mg/dL 0-0.3 N ~~~~~~~ ~~~~~~~~~~~~~~ (test code = BILCON) ~~~~~~~ ~~~~~~~~~~~~~~ ~~~~~~~~~~~~~~~ ~~~CON JUGATED BILIRUB IN IS THE REPLACEMENT ASSAY FOR DIRECTBILIRUBIN .~~~~~ ~~~~~~~~~~~~~~~ ~~~~~~ ~~~~~~~~~~~~~~~ ~~~~~~ ~~~~~~~~~~~~~ BILIRUBIN UNCONJUGATED 0.6 mg/dL 0-1.1 N (test code = BILUNC) SGOT/AST (test code = 62 U/L 15-46 H AST) SGPT/ALT (test code = 60 U/L 13-69 N ALT) ALKALINE PHOSPHATASE 55 U/L 38-126 N (test code = ALKP) NT PRO-BRAIN NATRIURETIC [id number] 16:51:00 Test Item Value Reference Range Interpretation Comments NT PRO-BRAIN NATRIURETIC PEPTI (test pg/mL 0-299 code = PROBNP) - XR CHEST 1 [id number] 16:48:00 [place]: St: REG -- Name: SEYMOUR [facility] : 1950 Age/S: 68/M [address] Unit #: [id number] Loc: [place] [address] Phys: Pito Hayden MD Acct: [id number] Dis Date: Status: REG ER PHONE #: [phone] Exam Date: 10/26/2018 1642 FAX #: [phone] Reason: chest pain EXAMS: CPT CODE: [id number] XR CHEST 1 V 37332 C3 TIME OF STUDY: 10/26/2018 4:17 PM REASON FOR EXAM: chest pain COMPARISON: None. FINDINGS: AP view of the chest was obtained. Lungs: Normal lung volume. No mass, orconsolidation. Normal pulmonary vascularity. Pleura: No pleural effusion or pneumothorax. Heart and M ediastinum: Normal cardiomediastinal silhouette and great vessels. Bones: Normal regional skeletal structures. IMPRESSION: 1. No acute cardiopulmonary process. at 3058 Reported and signed by: Pepito Khan MD CC: Technologist: STEVE COOPERhimikhail Date/Time/By: 10/26/2018 (5202) : By: [email or web address] PAGE 1 Signed Report [place]: St: REG Name: SE[facility]OUR [facility] : 1950 Age/S: 68/M [address] Unit #: [id number] Loc: [place] [address] Phys: Pito Hayden MD Acct: [id number] Dis Date: Status: REG ER PHONE #: [phone] Exam Date: 10/26/2018 1642 FAX #: [phone] Reason: chest pain EXAMS: CPT CODE: [id number] XR CHEST 1 V 66023 (Continued) Orig Print D/T: S: 10/26/2018 (4633) PAGE 2 Signed ReportTROPONIN I [id number] 16:45:00 Test Item Value Reference Range Interpretation Comments TROPONIN I RAPID 0.02 ng/mL 0.00-0.079 N ISTAT TROP ONIN I (test code = CRITERIA0.00-0. 08 ng/mL - TROPIRAP) Negative>0.08 n g/mL - Positive The us e of serial sampling and te sting protocol is are commended practice.An mauro vated troponin level alone is often not suffi cient fordiagnosis of myocardial infarction. Tro ponin results obtaine d by different assay s may vary.Evaluation of the extent of myoca rdial damage based on increase of troponin would be valid only if similar methodology is used. CBC W/AUTO [id number] 16:34:00 Test Item Value Reference Range Interpretation Comments WHITE BLOOD CELL (test code = 8.1 x10 3/uL 5.0-12.0 N WBC) RED BLOOD CELL (test code = 4.25 x10 6/uL 4.70-6.10 L RBC) HEMOGLOBIN (test code = HGB) 13.5 g/dL 14.0-18.0 L HEMATOCRIT (test code = HCT) 38.7 % 37.0-49.0 N MEAN CELL VOLUME (test code = 91 fL 80-94 N MCV) MEAN CELL HGB (test code = MCH) 31.8 pg 27-31 H MEAN CELL HGB CONCENTRATION 34.9 g/dL 33-37 N (test code = MCHC) RED CELL DISTRIBUTION WIDTH 13.0 % 11.5-15.5 N (test code = RDW) PLATELET COUNT (test code = 189 x10 3/uL 130-400 N PLT) MEAN PLATELET VOLUME (test code 10.0 fL 9.4-16.4 N = MPV) NEUTROPHIL % (test code = NT%) 71.2 % 43-65 H IMMATURE GRANULOCYTE % (test 0.2 % 0.0-2.0 N code = IG%) LYMPHOCYTE % (test code = LY%) 21.0 % 20.5-45.5 N MONOCYTE % (test code = MO%) 5.3 % 5.5-11.7 L EOSINOPHIL % (test code = EO%) 1.6 % 0.9-2.9 N BASOPHIL % (test code = BA%) 0.7 % 0.2-1.0 N NUCLEATED RBC % (test code = 0.0 % 0-1.0 N NRBC%) NEUTROPHIL # (test code = NT#) 5.74 x10 3/uL 2.2-4.8 H IMMATURE GRANULOCYTE # (test 0.02 x10 3/uL 0-0.03 N code = IG#) LYMPHOCYTE # (test code = LY#) 1.70 x10 3/uL 1.3-2.9 N MONOCYTE # (test code = MO#) 0.43 x10 3/uL 0.3-0.8 N EOSINOPHIL # (test code = EO#) 0.13 x10 3/uL 0.0-0.2 N BASOPHIL # (test code = BA#) 0.06 x10 3/uL 0.0-0.1 N
[2022-06-04 10:37] LABS: Hematocrit 37.7 % (39.6-49.0); Lymphocytes % 20.1 % (15.3-44.8); MCV 91.7 fL (80-100); MPV 7.9 fL (7.6-11.3); RBC Red Blood Cell Count 4.11 M/uL (4.33-5.43)
[2022-06-04 10:38] LABS: Absolute Lymphocytes (CBC) 1.5 K/uL (0.7-4.9)
--- NOTE | 2022-06-04 10:38 | RAD REPORT ---
EXAM DESCRIPTION: Osvaldo Single View06/04/2022 10:28 am CLINICAL HISTORY: Shortness of breath COMPARISON: none FINDINGS: A 7 centimeter left upper lobe opacity. Areas of subsegmental atelectasis within the lungs. Heart is normal size IMPRESSION: 7 centimeter left upper lobe opacity probably pneumonia. This should be followed until i t is clear to exclude post obstructive process/underlying mass
[2022-06-04 10:53] LABS: Protime INR 1.38
[2022-06-04] MEDS ORDERED: NA CHLORIDE 0.9% 500 ML ONE (11:11)
[2022-06-04 11:20] LABS: SARS-COV-2 RT PCR NEGATIVE (NEGATIVE)
[2022-06-04 11:26] LABS: Albumin 2.6 g/dL (3.4-5.0); Bilirubin Direct 0.8 mg/dL (0-0.2); Bilirubin Total 2.7 mg/dL (0.2-1.0); Potassium 3.3 mmol/L (3.5-5.1); Protein, Total 6.7 g/dL (6.4-8.2); Troponin High Sensitivity 7.8 pg/mL (<58.9)
[2022-06-04 11:32] LABS: Magnesium 0.7 mg/dL (1.6-2.4)
--- NOTE | 2022-06-04 11:47 | ER ---
Nurse's Notes [facility] Name: Mihir Palencia Age: 71 yrs Sex: Male : 1950 Arrival Date: 06/04/2022 Time: 09:55 Bed 17 Private MD: Diagnosis: Pneumonia;Hypomagnesemia;Dehydration;Near syncope Presentation: 06/04 09:55 Chief complaint: Pt's sister states "he hasn't been eating for about 4 days because he aa5 has no appetite". Pt also reports generalized weakness. Pt reports he was admitted to a hospital in [place] with Pneumonia 2 weeks ago. Pt reports SOB with exertion, reports cough and chills last night. Pt also states "I want my pancreas checked ". Coronavirus screen: cough unrelated to allergies, shortness of breath. Ebola Screen: Patient denies travel to an Ebola-affected area in the 21 days before illness onset. Initial Sepsis Screen: Does the patient meet any 2 criteria? HR > 90 bpm. Does the patient have a suspected source of infection? Yes:. Risk Assessment: Do you want to hurt yourself or someone else? Patient reports no desire to harm self or others. Onset of symptoms was May 2022. 09:55 Method Of Arrival: Wheelchair aa5 09:55 Acuity: RICKEY 3 aa5 Triage Assessment: 10:00 General: Appears distressed, uncomfortable, obese, Behavior is cooperative, appropriate bp for age, anxious. Pain: Denies pain. EENT: No deficits noted. Neuro: Reports weakness GENERALIZED. Cardiovascular: No deficits noted. Respiratory: Reports shortness of breath cough that is. GI: Reports anorexia. : No signs and/or symptoms were reported regarding the genitourinary system. Derm: No deficits noted. Musculoskeletal: No deficits noted. Historical: - Allergies: 09:59 No Known Allergies; aa5 - PMHx: 09:59 Diabetes mellitus; Hypertensive disorder; Pancreatitis; aa5 - PSHx: 09:59 Cholecystectomy; aa5 - Immunization history:: Adult Immunizations unknown. - Social history:: Smoking status: Patient denies any tobacco usage or history of. Screenin:00 [facility] ED Fall Risk Assessment (Adult) History of falling in the last 3 months, bp including since admission No falls in past 3 months (0 pts). Abuse screen: Denies threats or abuse. Denies injuries from another. Nutritional screening: No deficits noted. Tuberculosis screening: No symptoms or risk factors identified. Assessment: 10:00 General: SEE TRIAGE NOTE. bp 11:15 Reassessment: No changes from previously documented assessment. Patient and/or family bp updated on plan of care and expected duration. Pain level reassessed. Patient is alert, oriented x 3, equal unlabored respirations, skin warm/dry/pink. 13:00 Reassessment: ADMIT INITIATED. bp Vital Signs: 09:55 BP 107 / 76; Pulse 92; Resp 18 S; Temp 98.0(TE); Pulse Ox 92% on R/A; Weight 122.47 kg aa5 (R); Height 6 ft. 2 in. (187.96 cm) (R); 11:15 BP 122 / 81; Pulse 76; Resp 16; Pulse Ox 95% ; bp 13:00 BP 137 / 87; Pulse 77; Resp 24; Pulse Ox 94% ; bp 09:55 Body Mass Index 34.67 (122.47 kg, 187.96 cm) aa5 ED Course: 09:55 Patient arrived in ED. aa5 09:55 Arm band placed on. aa5 09:58 Kieran Orellana PA is PHCP. [facility] 09:58 Favian Saleh MD is Attending Physician. [facility] 09:58 Triage completed. aa5 10:00 Patient has correct armband on for positive identification. Bed in low position. Call bp light in reach. Side rails up X2. 10:00 Inserted saline lock: 20 gauge in right antecubital area, using aseptic technique. bp Blood collected. 10:21 EKG done, by ED staff. bc6 10:22 Donnie Hansen, RN is Primary Nurse. bp 10:29 XRAY Chest (1 view) In Process Unspecified. EDMS 11:45 Chris Nelson MD is Hospitalizing Provider. jmm 12:10 CT Chest For PE Angio In Process Unspecified. EDMS 12:10 Abdomen In Process Unspecified. EDMS 14:40 No provider procedures requiring assistance completed. Patient admitted, IV remains in bp place. Administered Medications: 10:30 Drug: NS 0.9% 500 ml Route: IV; Rate: bolus; Site: right antecubital; bp 13:03 Follow up: IV Status: Completed infusion; IV Intake: 500ml bp 11:45 Drug: Magnesium Sulfate 2 grams Route: IVPB; Infused Over: 2 hrs; Site: right bp antecubital; 13:02 Follow up: IV Status: Completed infusion; IV Intake: 50ml bp 12:00 Drug: Cefepime 1 grams Route: IVPB; Rate: 200 ml/hr; Infused Over: 30 mins; Site: right bp antecubital; 13:03 Follow up: IV Status: Completed infusion; IV Intake: 100ml bp 12:30 Drug: vancoMYCIN 1 grams Route: IVPB; Infused Over: 2 hrs; Site: right antecubital; bp Medication: 14:47 VIS not applicable for this client. bp Intake: 13:02 IV: 50ml; Total: 50ml. bp 13:03 IV: 500ml; Total: 550ml. bp 13:03 IV: 100ml; Total: 650ml. bp Outcome: 11:46 Decision to Hospitalize by Provider. marcos 14:43 Admitted to Med/surg family with patient, via stretcher, room 407, with chart, Report bp called to ANILA REED 14:43 Condition: stable 14:43 Instructed on the need for admit. 15:14 Patient left the ED. bp Signatures: Dispatcher [employer] EDMS Kieran Orellana PA PA jmm Calderon, Audri, RN RN aa5 Donnie Hansen, RN RN bp Sirena Tsai bc6 Corrections: (The following items were deleted from the chart) 10:00 09:55 Chief complaint: Pt's sister states "he hasn't been eating for about 4 days aa5 because he has no appetite". Pt also reports generalized weakness. Pt reports he was admitted to a hospital in [place] with Pneumonia 2 weeks ago. Pt reports SOB with exertion, reports cough and chills last night. aa5
--- NOTE | 2022-06-04 11:47 | EDPHYS ---
Physician Documentation [facility] Name: Mihir Palencia Age: 71 yrs Sex: Male : 1950 Arrival Date: 06/04/2022 Time: 09:55 Bed 17 Private MD: ED Physician Favian Saleh HPI: 06/04 10:11 This 71 yrs old Male presents to ER via Wheelchair with complaints of General jmm Weakness. 10:11 The patient has shortness of breath at rest. Onset: The symptoms/episode began/occurred jmm gradually. Duration: The symptoms are continuous. This is a 71-year-old male with history of diabetes mellitus, hypertension pancreatitis the presents emerged part with complaints of fatigue, shortness of breath worsening over the past 5 days. Family states that patient has not eaten. During a family gathering, the patient was unable to stand for more than a few seconds. Denies any vomiting or diarrhea. Patient is also concerned he may have a episode of pancreatitis patient was recently discharged for pneumonia in [place]. Historical: - Allergies: 09:59 No Known Allergies; aa5 - PMHx: 09:59 Diabetes mellitus; Hypertensive disorder; Pancreatitis; aa5 - PSHx: 09:59 Cholecystectomy; aa5 - Immunization history:: Adult Immunizations unknown. - Social history:: Smoking status: Patient denies any tobacco usage or history of. ROS: 10:11 Constitutional: Positive for body aches, chills, fatigue. jmm 10:11 Respiratory: Positive for cough, shortness of breath. 10:11 All other systems are negative. Exam: 10:11 Constitutional: This is a well developed, well nourished patient who is awake, alert, jmm and in no acute distress. Head/Face: atraumatic. Eyes: EOMI, no conjunctival erythema appreciated ENT: Moist Mucus Membranes Neck: Trachea midline, Supple Chest/axilla: Normal chest wall appearance and motion. Cardiovascular: Regular rate and rhythm. No edema appreciated Respiratory: Normal respirations, no respiratory distress appreciated Abdomen/GI: Non distended Back: Normal ROM Skin: General appearance color normal MS/ Extremity: Moves all extremities, no obvious deformities appreciated, no edema noted to the lower extremities Neuro: Awake and alert Psych: Behavior is normal, Mood is normal, Patient is cooperative and pleasant Vital Signs: 09:55 BP 107 / 76; Pulse 92; Resp 18 S; Temp 98.0(TE); Pulse Ox 92% on R/A; Weight 122.47 kg aa5 (R); Height 6 ft. 2 in. (187.96 cm) (R); 11:15 BP 122 / 81; Pulse 76; Resp 16; Pulse Ox 95% ; bp 13:00 BP 137 / 87; Pulse 77; Resp 24; Pulse Ox 94% ; bp 09:55 Body Mass Index 34.67 (122.47 kg, 187.96 cm) aa5 MDM: 10:11 Patient medically screened. [facility] 11:45 Data reviewed: vital signs, nurses notes. Consideration of Admission/Observation [facility] Patient was admitted/placed on observation. Management of patient was discussed with the following: Hospitalist: Jad. I considered the following discharge prescriptions or medication management in the emergency department Medications were administered in the Emergency Department. See MAR. Counseling: I had a detailed discussion with the patient and/or guardian regarding: the historical points, exam findings, and any diagnostic results supporting the discharge/admit diagnosis, lab results, radiology results, the need for further work-up and treatment in the hospital. 06/04 10:17 Order name: Basic Metabolic Panel; Complete Time: 11:35 [facility] 06/04 10:17 Order name: CBC with Diff; Complete Time: 10:51 [facility] 06/04 10:17 Order name: LFT's; Complete Time: 11:35 [facility] 06/04 10:17 Order name: Magnesium; Complete Time: 11:35 [facility] 06/04 10:17 Order name: NT PRO-BNP; Complete Time: 11:35 [facility] 06/04 10:17 Order name: PT-INR; Complete Time: 10:59 [facility] 06/04 10:17 Order name: Troponin HS; Complete Time: 11:35 [facility] 06/04 10:17 Order name: Lactate w/ 2H reflex if indic.; Complete Time: 11:06 [facility] 06/04 10:17 Order name: Blood Culture Adult (2) [facility] 06/04 10:17 Order name: Lipase; Complete Time: 11:35 [facility] 06/04 10:22 Order name: COVID-19/FLU A+B; Complete Time: 11:24 [facility] 06/04 13:18 Order name: Magnesium [facility] 06/04 13:18 Order name: NT PRO-BNP [facility] 06/04 13:18 Order name: Phosphorus [facility] 06/04 10:17 Order name: XRAY Chest (1 view); Complete Time: 10:38 [facility] 06/04 10:17 Order name: EKG; Complete Time: 10:18 [facility] 06/04 11:43 Order name: CT Chest For PE Angio; Complete Time: 12:27 [facility] 06/04 11:58 Order name: CT Abd/Pelvis - IV Contrast Only [facility] 06/04 12:02 Order name: Abdomen ; Complete Time: 12:27 [facility] 06/04 13:18 Order name: T4 Free [facility] 06/04 13:18 Order name: Thyroid Stimulating Hormone [facility] 06/04 13:18 Order name: Urinalysis [facility] 06/04 13:18 Order name: Basic Metabolic Panel [facility] 06/04 13:18 Order name: Basic Metabolic Panel [facility] 06/04 13:18 Order name: CBC with Automated Diff [facility] 06/04 13:18 Order name: CBC with Automated Diff [facility] 06/04 10:17 Order name: Cardiac monitoring; Complete Time: 10:24 [facility] 06/04 10:17 Order name: EKG - Nurse/Tech; Complete Time: 10:20 [facility] 06/04 10:17 Order name: IV Saline Lock; Complete Time: 10:24 [facility] 06/04 10:17 Order name: Labs collected and sent; Complete Time: 10:24 [facility] 06/04 10:17 Order name: O2 Per Protocol; Complete Time: 10:24 [facility] 06/04 10:17 Order name: O2 Sat Monitoring; Complete Time: 10:24 [facility] 06/04 13:18 Order name: CONS Physician Consult [facility] 06/04 13:18 Order name: Heart Healthy [facility] Administered Medications: 10:30 Drug: NS 0.9% 500 ml Route: IV; Rate: bolus; Site: right antecubital; bp 13:03 Follow up: IV Status: Completed infusion; IV Intake: 500ml bp 11:45 Drug: Magnesium Sulfate 2 grams Route: IVPB; Infused Over: 2 hrs; Site: right bp antecubital; 13:02 Follow up: IV Status: Completed infusion; IV Intake: 50ml bp 12:00 Drug: Cefepime 1 grams Route: IVPB; Rate: 200 ml/hr; Infused Over: 30 mins; Site: right bp antecubital; 13:03 Follow up: IV Status: Completed infusion; IV Intake: 100ml bp 12:30 Drug: vancoMYCIN 1 grams Route: IVPB; Infused Over: 2 hrs; Site: right antecubital; bp Disposition: 17:00 Co-signature as Attending Physician, Favian Saleh MD I reviewed the patient's care rt provided by the Advanced Practice Provider and agree with the diagnosis and treatment plan. Disposition Summary: 06/04/22 11:46 Hospitalization Ordered Hospitalization Status: Inpatient Admission [facility] Provider: Chris Nelson Location: Telemetry/MedSur (Inpatient) jmm Condition: Stable jmm Problem: new jmm Symptoms: are unchanged jmm Bed/Room Type: [facility] Room Assignment: 407(06/04/22 13:50) dw Diagnosis - Pneumonia jmm - Hypomagnesemia jmm - Dehydration jmm - Near syncope jmm Forms: - Medication Reconciliation Form jmm - SBAR form jmm Signatures: Dispatcher [employer] Aicha Reed RN RN Kieran John PA PA jmm Jenni Kelly, RN RN aa5 Donnie Hansen RN RN bp Favian Saleh MD MD rt Corrections: (The following items were deleted from the chart) 13:50 11:46 jmm dw
[2022-06-04] MEDS ORDERED: Magnesium Sulfate 2gm IVPB 2 G/50 ML BAG IV ONE ×2 (11:48→16:42)
[2022-06-04] MEDS ORDERED: VANCOMYCIN 1 GM/VIAL ONE (11:56)
[2022-06-04] MEDS ORDERED: NA CHLORIDE 0.9% 250 ML ONE (11:57)
[2022-06-04] MEDS ORDERED: CEFEPIME 1 GM/VIAL ONE (11:57)
[2022-06-04] MEDS ORDERED: NA CHLORIDE 0.9% 100 ML IV ONE (11:57)
--- NOTE | 2022-06-04 12:18 | RAD REPORT ---
EXAM DESCRIPTION: CT - Chest For Pe Angio - 06/04/2022 12:08 pm CLINICAL HISTORY: Chest pain COMPARISON: None. TECHNIQUE: Dynamically enhanced axial 3 mm thick images of the chest were obtained during administra tion of <100> mL Isovue 370 IV contrast. Coronal and oblique reconstruction images were generated and reviewed. Exam utilizes a protocol for optimal evaluation of pulmonary arterial tree. Maximum intensity projections 3D imaging was utilized All CT scans are performed using dose optimization technique as appropriate and may include automated exposure control or mA/KV adjustment according to patient size. FINDINGS: Opacification of pulmonary arteries is suboptimal. No central pulmonary embolus seen. A thoracic aortic aneurysm is not noted. A pleural effusion is not seen. A pericardial effusion is not seen. 9 centimeter left upper lobe consolidation. It contains a cavity. Mild subsegmental atelectasis right lung IMPRESSION: Negative for a pulmonary embolism. 9 centimeter left upper lobe consolidation containing a cavity likely cavitary pneumonia. This should be followed until it is clear to help exclude a post obstructive process/underlying mass
--- NOTE | 2022-06-04 12:23 | RAD REPORT ---
EXAM DESCRIPTION: CT - Abdomen Pelvis W Contrast - 06/04/2022 12:08 pm CLINICAL HISTORY: Abdominal pain COMPARISON: none. TECHNIQUE: Computed axial tomography of the abdomen pelvis was obtained. 100 cc Isovue-300 was admin istered intravenously. Oral contrast was not requested which limits evaluation of bowel and appendix All CT scans are performed using dose optimization technique as appropriate and may include automated exposure control or mA/KV adjustment according to patient size. FINDINGS: 1.4 centimeter low to intermediate density lesion right lobe of liver. Prominence of the caudate lobe of the liver. Spleen, pancreas, adrenals and kidneys are unremarkable. Cholecystectomy. Left upper quadrant varices. There is no evidence of diverticulitis. Normal appendix. Small umbilical hernia. Duodenal diverticulum IMPRESSION: 1.4 centimeter hepatic lesion does not have the appearance a simple cyst. It is recommen ded that the patient have an ultrasound for further evaluation. Prominence of the hepatic caudate lobe with left upper quadrant varices may be secondary to cirrhosis . This should be correlated with appropriate lab values
[2022-06-04] MEDS ORDERED: HYDROCODONE/APAP 5/325 MG TAB PO PRN (13:00)
[2022-06-04] MEDS ORDERED: ACETAMINOPHEN 325 MG TABLET PO PRN (13:00)
[2022-06-04] MEDS ORDERED: ONDANSETRON 4 MG/2 ML VIAL IV PRN (13:12)
[2022-06-04] MEDS ORDERED: VANCOMYCIN 1 GM in NA CHLORIDE 0.9% 250 ML IVPB ONE (13:45)
[2022-06-04 15:05] VITALS: BMI 34.7
[2022-06-04] MEDS: IPRATROPIUM BROM 0.5MG/2.5ML NEB SCH ×2 (15:08→19:30)
[2022-06-04] MEDS: ALBUTEROL 2.5 MG/3 ML NEB SOL NEB SCH ×2 (15:08→19:30)
[2022-06-04] MEDS: ASPIRIN 81 MG CHEWABLE TABLET PO SCH (15:10)
--- NOTE | 2022-06-04 15:44 | P.HP ---
Certification for Inpatient Patient admitted to: Inpatient With expected LOS: >2 Midnights Patient will require the following post-hospital care: None Practitioner: I am a practitioner with admitting privileges, knowledge of patient current condition, hospital course, and medical plan of care. Services: Services provided to patient in accordance with Admission requirements found in Title 42 Section 412.3 of the Code of Federal Regulations Patient History Date of Service: 06/04/22 History of Present Illness: Patient is a 71-year-old male with a past medical history significant for DM 2, hypertension, pancreatitis, obesity,\who presents with complaint of shortness of breath. Patient reported that he was recently discharged from [facility] 8 days ago for pneumonia. Patient reported completing prescribed antibiotics. Patient indicated that he felt better for a little while but became sick in the last 3 days. Patient reported that he started having generalized body pains, weakness and fatigue with associated signs and symptoms of cough, shortness of breath, poor appetite, dizziness, nausea, vomiting, diarrhea, subjective fever, chills and abdominal pain located in the upper quadrants. Patient rated pain as 5/10 in severity and described pain as aching in quality. Patient denies any other signs and symptoms. Symptoms are aggravated or relieved by nothing. Patient decided to present to the hospital due to worsening symptoms. Allergies No Known Allergies Allergy (Unverified 06/04/22 13:34) - Past Medical/Surgical History Has patient received pneumonia vaccine in the past: Yes Diabetic: Yes -: JOAO -: Type 2 Diabetes -: HTN -: Gallbladder removal - Social History Smoking Status: Never smoker Alcohol use: No CD- Drugs: No Caffeine use: No Place of Residence: Home Review of Systems General: Fever, Sweats, Weakness, Malaise, Other (poor appetite, generalized body pains, fatigue) Eyes: Unremarkable ENT: Unremarkable Respiratory: Cough, Shortness of Breath Cardiovascular: Unremarkable Gastrointestinal: Nausea, Vomiting, Abdominal Pain, Diarrhea Genitourinary: Unremarkable Musculoskeletal: Unremarkable Integumentary: Unremarkable Neurological: Weakness, Other (dizziness) Lymphatics: Unremarkable Physical Examination - Vital Signs Temperature: 98.0 F Blood Pressure: 137/87 Pulse: 77 Respirations: 24 - Physical Exam General: Alert, Oriented x3, Mild distress HEENT: Atraumatic, PERRLA, Mucous membr. moist/pink, EOMI, Sclerae nonicteric Neck: Supple, 2+ carotid pulse no bruit, No LAD, Without JVD or thyroid abnormality Respiratory: Diminished Cardiovascular: No edema, Regular rate/rhythm, Normal S1 S2 Capillary refill: <2 Seconds Gastrointestinal: Normal bowel sounds, Tenderness Musculoskeletal: No clubbing, No swelling, No contractures, No tenderness Integumentary: No rashes, No breakdown, No significant lesion Neurological: Normal speech, Normal tone, Normal affect Lymphatics: No axilla or inguinal lymphadenopathy - Studies Laboratory Data (last 24 hrs) 06/04/22 10:20: PT 15.2 H, INR 1.38 06/04/22 10:20: WBC 7.40, Hgb 13.0 L, Hct 37.7 L, Plt Count 171 06/04/22 10:20: Sodium 138, Potassium 3.3 L, BUN 23 H, Creatinine 1.32 H, Glucose 212 H, Magnesium 0.7 L*, Total Bilirubin 2.7 H, AST 27, ALT 27, Alkaline Phosphatase 94, Lipase 184 Assessment and Plan - Plan --Pneumonia. Noted on imaging. Failed outpatient therapy. Patient placed on antibiotics, neb treatment with Atrovent\albuterol And O2 therapy. Blood cultures pending. Hide Stretcher Hand and infectious disease MD consulted. Will await further recommendations. -- Abdominal pain. CT abdomen indicates 1.4 cm cyst and findings suspicious for Liver cirrhosis. Abdominal ultrasound pending for further evaluation. We will manage pain with current pain medication regimen. -- Class II obesity. Likely secondary to excess calories intake. Patient counseled on weight reduction, diet and excise therapy. --DM2. BS monitoring with sliding scale insulin. --Hypertension. Patient currently hypotensive. We will hold off on BP meds. --Hypomagnesemia\hypokalemia. Replete as needed. We will continue to monitor levels. --CKD 3A. Baseline functions unknown. We will continue to monitor renal functions. --Anemia of chronic disease. Stable. Continue to monitor hemoglobin and transfuse if less than 7.0. --N\V\D. Patient denies any of the symptoms today. Continue supportive care --DVT prophylaxis with heparin subQ. Discharge Plan: Home Plan to discharge in: Greater than 2 days - Advance Directives Does patient have a Living Will: No Does patient have a Durable POA for Healthcare: No - Code Status/Comfort Care Code Status Assessed: Yes Physician Review: Patient Assessed, Agree with Above Assessment and Plan Critical Care: No
[2022-06-04] MEDS: CEFEPIME 1 GM in NA CHLORIDE 0.9% 100 ML IV SCH (16:25)
[2022-06-04 16:32] LABS: Phosphorus 2.9 mg/dL (2.5-4.9); Thyroid Stimulating Hormone 1.68 uIU/mL (0.358-3.740)
[2022-06-04 16:34] LABS: Magnesium 1.2 mg/dL (1.6-2.4)
[2022-06-04] MEDS ORDERED: POTASSIUM CL SA 10 MEQ TAB PO ONE (19:18)
[2022-06-04 19:58] LABS: Hepatitis B Core IgM Nonreactive (Nonreactive); Hepatitis B surface AG Interp. Nonreactive (Nonreactive); Hepatitis C Virus Ab Nonreactive (Nonreactive)
[2022-06-04 20:03] LABS: Specific Gravity 1.025 (1.005-1.030); Urine Bilirubin NEGATIVE (Negative); Urine Blood Negative (Negative); Urine Clarity Clear (Clear); Urine Color Light-Yellow (Yellow); Urine Glucose NEGATIVE (Negative); Urine Protein NEGATIVE (Negative); Urine Urobilinogen Normal (Normal); Urine pH 5.5 (5.0-7.0)
[2022-06-04] MEDS: HEPARIN 5000 UNIT/ML 1 ML VIAL SQ SCH (20:45)
[2022-06-05] MEDS: CEFEPIME 1 GM in NA CHLORIDE 0.9% 100 ML IV SCH ×2 (00:08→08:11)
[2022-06-05] MEDS: ALBUTEROL 2.5 MG/3 ML NEB SOL NEB SCH (01:25)
[2022-06-05] MEDS: IPRATROPIUM BROM 0.5MG/2.5ML NEB SCH (01:25)
[2022-06-05] MEDS ORDERED: POTASSIUM 25 MEQ EFFERV TAB PO ONE (02:30)
[2022-06-05] MEDS ORDERED: Magnesium Sulfate 2gm IVPB 2 G/50 ML BAG IV ONE ×4 (02:30→20:00)
[2022-06-05] MEDS ORDERED: POTASSIUM 25 MEQ EFFERV TAB ONE (02:34)
[2022-06-05 04:40] LABS: Potassium 3.4 mmol/L (3.5-5.1)
[2022-06-05 04:41] LABS: Hematocrit 34.2 % (39.6-49.0); Lymphocytes % 16.4 % (15.3-44.8); MCV 92.4 fL (80-100); MPV 7.6 fL (7.6-11.3)
[2022-06-05] MEDS ORDERED: VANCOMYCIN 2 GM in NA CHLORIDE 0.9% 500 ML IVPB SCH (06:00)
--- NOTE | 2022-06-05 07:32 | EKG ---
Test Date: 2022-06-04 Test Time: 10:12:39 Needle Valve Operator: JULIO MEASUREMENT RESULTS: Intervals: Rate: 82 MT: 168 QRSD: 96 QT: 400 QTc: 467 [place]: P: 65 MT: 168 QRS: -41 T: 41 INTERPRETIVE STATEMENTS: Sinus rhythm with premature atrial complexes Left axis deviation Nonspecific ST abnormality Abnormal ECG No previous ECG available for comparison Electronically Signed On 06-05-22 07:31:30 [place]ACH ATTENDANT by Milton Zamora
[2022-06-05] MEDS: HEPARIN 5000 UNIT/ML 1 ML VIAL SQ SCH ×2 (08:11→20:22)
[2022-06-05] MEDS: ASPIRIN 81 MG CHEWABLE TABLET PO SCH (08:11)
--- NOTE | 2022-06-05 08:27 | P.CNS ---
Date of Consult: 06/05/22 Reason for Consult: Pneumonia History of Present Illness: Patient is 71 years of age metabolic syndrome history of pancreatitis admitted with shortness of breath just recently discharged [facility] was treated with antibiotic M sick over the past 3 days but weakness fatigue does have this left upper lobe infiltrate with some chest pain Patient does not smoke Allergies No Known Allergies Allergy (Unverified 06/04/22 13:34) - Past Medical/Surgical History Diabetic: Yes -: JOAO -: Type 2 Diabetes -: HTN -: Gallbladder removal - Social History Alcohol use: No CD- Drugs: No Caffeine use: No Place of Residence: Home Review of Systems 10-point ROS is otherwise unremarkable General: Weakness Respiratory: Shortness of Breath Cardiovascular: Chest Pain Physical Examination Temp Pulse Resp BP Pulse Ox 98.8 F 80 16 118/64 91 06/05/22 04:00 06/05/22 04:00 06/05/22 04:00 06/05/22 04:00 06/05/22 04:00 General: Alert, Oriented x3 HEENT: Atraumatic Neck: Supple Respiratory: Clear to auscultation bilaterally Cardiovascular: Normal S1 S2, Abnormal S3 Gastrointestinal: Normal bowel sounds, Soft and benign, Non-distended Laboratory Data (last 24 hrs) 06/04/22 10:20: PT 15.2 H, INR 1.38 06/04/22 10:20: WBC 7.40, Hgb 13.0 L, Hct 37.7 L, Plt Count 171 06/04/22 10:20: Sodium 138, Potassium 3.3 L, BUN 23 H, Creatinine 1.32 H, Glucose 212 H, Magnesium 0.7 L*, Total Bilirubin 2.7 H, AST 27, ALT 27, Alkaline Phosphatase 94, Lipase 184 - Problems (1) Mass of upper lobe of left lung Current Visit: Yes Status: Acute Plan: Patient is 71 years of age was recently discharged from [facility] with diagnosis of pneumonia finished a course of his antibiotic admitted with shortness of breath he has a left upper lobe mass inflammatory 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 levofloxacin add some prednisone patient's white count is normal he is not septic still hypoxic his sat is 91% on 3 L I ordered serum procalcitonin may need an outpatient bronchoscopy with biopsy as well continue with prednisone for now once stable discharge follow-up with me as an outpatient patient is hypomagnesemia
--- NOTE | 2022-06-05 08:57 | RAD REPORT ---
EXAM DESCRIPTION: US - Abdomen Exam Complete - 06/05/2022 6:21 am CLINICAL HISTORY: Abdominal pain. Hepatic lesion, R O cirrhosis COMPARISON: Abdomen Pelvis W Contrast dated 06/04/2022; Chest For Pe Angio dated 06/04/2022 FINDINGS: Mild diffuse fatty liver. There is a vague 18 mm low-density lesion in the right lobe of t he liver. This is somewhat difficult to The gallbladder demonstrates no gallstones, pericholecystic fluid or gallbladder wall thickening. Co mmon bile duct is normal in caliber measuring 5 millimeters. Both kidneys are normal in size, shape and echotexture. No hydronephrosis, focal lesion of concern or perinephric fluid. The spleen is normal in size measuring 13 cm. The pancreas and aorta are obscured by bowel gas. The visualized aspects of the IVC are grossly normal. IMPRESSION: Mild diffuse fatty liver is seen. Vague 18 mm low-density lesion in the right lobe is difficult to fully evaluate due to shadowing of b owel gas and patient positioning. Recommend MRI liver protocol for further evaluation if clinically w arranted.
[2022-06-05] MEDS: levoFLOXacin 750 MG TAB PO SCH (09:24)
[2022-06-05] MEDS: predniSONE 20 MG TAB PO SCH ×2 (09:24→20:22)
[2022-06-05 10:10] LABS: Potassium 3.8 mmol/L (3.5-5.1)
[2022-06-05 10:11] LABS: Magnesium 1.2 mg/dL (1.6-2.4)
[2022-06-05] MEDS ORDERED: POTASSIUM CL SA 10 MEQ TAB PO ONE (10:30)
--- NOTE | 2022-06-05 11:15 | P.CNS ---
History of Present Illness: Patient is a 71-year-old male with a past medical history significant for DM 2, hypertension, pancreatitis, obesity,\\who presents with complaint of shortness of breath. Patient reported that he was recently discharged from [facility] 8 days ago for pneumonia. Patient reported completing prescribed antibiotics. Patient indicated that he felt better for a little while but became sick in the last 3 days. Patient reported that he started having generalized body pains, weakness and fatigue with associated signs and symptoms of cough, shortness of breath, poor appetite, dizziness, nausea, vomiting, diarrhea, subjective fever, chills and abdominal pain located in the upper quadrants. Per CT chest, "9 centimeter left upper lobe consolidation containing a cavity likely cavitary pneumonia." ID has been consulted for recommendation of IV antibiotics and management Allergies No Known Allergies Allergy (Unverified 06/04/22 13:34) - Past Medical/Surgical History Diabetic: Yes -: JOAO -: Type 2 Diabetes -: HTN -: Gallbladder removal - Social History Alcohol use: No CD- Drugs: No Caffeine use: No Place of Residence: Home Review of Systems General: Fever, Chills, Weakness, Other ("feeling dying", generalized bodyache) Respiratory: Cough, Shortness of Breath Gastrointestinal: Nausea, Vomiting, Diarrhea Physical Examination Temp Pulse Resp BP Pulse Ox 98.5 F 85 16 125/67 92 06/05/22 08:00 06/05/22 08:00 06/05/22 08:00 06/05/22 08:00 06/05/22 08:00 General: Alert, In no apparent distress, Oriented x3 Respiratory: Clear to auscultation bilaterally, Other (3 L of NC) Cardiovascular: No edema, Normal S1 S2 Gastrointestinal: Normal bowel sounds Musculoskeletal: No swelling, No tenderness Integumentary: No rashes, No breakdown Neurological: Normal speech, Normal tone, Normal affect Laboratory Data (last 24 hrs) 06/04/22 10:20: Sodium 138, Potassium 3.3 L, BUN 23 H, Creatinine 1.32 H, Glucose 212 H, Magnesium 0.7 L*, Total Bilirubin 2.7 H, AST 27, ALT 27, Alkaline Phosphatase 94, Lipase 184 Current Medications: Acetaminophen (Acetaminophen 325 Mg Tablet) 650 mg PO Q6H PRN PRN Reason: TEMP > 100' F Last Admin: 06/05/22 01:48 Dose: 650 mg Hydrocodone Bitart/Acetaminophen (Hydrocodone/Apap 5/325 Mg Tab) 1 tab PO Q6H PRN PRN Reason: Pain scale 5-7 (Moderate) Last Admin: 06/04/22 16:07 Dose: 1 tab Aspirin (Aspirin 81 Mg Chewable Tablet) 81 mg PO DAILY [facility] Last Admin: 06/05/22 08:11 Dose: 81 mg Heparin Sodium (Porcine) (Heparin 5000 Unit/Ml 1 Ml Vial) 5,000 unit SQ Q12HR [facility] Last Admin: 06/05/22 08:11 Dose: 5,000 unit Levofloxacin (Levofloxacin 750 Mg Tab) 750 mg PO DAILY [facility]; Protocol Last Admin: 06/05/22 09:24 Dose: 750 mg Ondansetron HCl (Ondansetron 4 Mg/2 Ml Vial) 4 mg IV Q6HP PRN PRN Reason: NAUSEA / VOMITING Prednisone (Prednisone 20 Mg Tab) 20 mg PO BID [facility] Last Admin: 06/05/22 09:24 Dose: 20 mg Sodium Chloride (Flush Normal Saline 10 Ml) 10 ml IV BID [facility] Last Admin: 06/05/22 08:16 Dose: Not Given Imagings Data: 06/04 Chest Xray: IMPRESSION: 7 centimeter left upper lobe opacity probably pneumonia. This should be followed until it is clear to exclude post obstructive process/underlying mass 06/04 CT Chest: IMPRESSION: Negative for a pulmonary embolism. 9 centimeter left upper lobe consolidation containing a cavity likely cavitary pneumonia. This should be followed until it is clear to help exclude a post obstructive process/underlying mass 06/04 CT Abd/Pel: IMPRESSION: 1.4 centimeter hepatic lesion does not have the appearance a simple cyst. It is recommended that the patient have an ultrasound for further evaluation. Prominence of the hepatic caudate lobe with left upper quadrant varices may be secondary to cirrhosis. This should be correlated with appropriate lab values 06/04 US Abd: MPRESSION: Mild diffuse fatty liver is seen. Vague 18 mm low-density lesion in the right lobe is difficult to fully evaluate due to shadowing of bowel gas and patient positioning. Recommend MRI liver protocol for further evaluation if clinically warranted. - Problems (1) Pneumonia Current Visit: Yes Status: Acute Plan: Cultures: - 06/04 BC: Negative Antibiotics: - Had Cefepime and Vancomycin once on 06/04 - Current on PO Levofloxacin (06/05 ->) WBC: - Normal and will continue monitoring the trend Recommendation: - Continue current PO Levofloxacin Conclusions/Impression: - Pneumonia: Recommend to continue current IV antibiotics - Abdominal pain. CT abdomen indicates 1.4 cm cyst and findings suspicious for Liver cirrhosis. - Moderate protein calorie malnutrition: Patient's albumin is low. Recommend to have supplement protein drinks to support adequate immunity for recovery - Class II obesity - DM2 - Hypertension - Hypomagnesemia\\hypokalemia: Managed by primary team - CKD 3A - Anemia of chronic disease ID will closely monitoring the patient for signs of infection with fever and WBC trends. Case has been discussed with Dr. De La Vega N Thank you Dr. Nelson for consult
--- NOTE | 2022-06-05 22:03 | P.PN ---
Date of Service: 06/05/22 Subjective: slight improvement no new/worsening ROS: A complete review of systems was performed and is negative except as mentioned above Physical Exam: Gen: NAD, AOx3 HEENT: normal conjunctiva, sclera anicteric CV: regular rate & rhythm, no edema Pulm: non-labored respirations, diminished with crackles on left lung cardona Abd: soft, non-tender, non-distended Skin: no rashes, no lesions Neuro: normal speech, normal affect, moves all extremities vitals reviewed Problem List acute hypoxemic respiratory failure secondary to pneumonia Morbidly obese HTN IDDM2 Hypoganemesia/hypokalemia anemia of chronic disease large consolidation, cavitary appearance isolation reports hospitalization ~5 days, discharged ~5 days ago pulm consulted ID consulted continue empiric antibiotics wean O2 - pt has home O2 - set up on most recent discharge nursing staff working on getting medical records from hospitalization confirm home meds Code: full Dispo: home, ~2-3 days
[2022-06-06 06:12] LABS: Phosphorus 2.1 mg/dL (2.5-4.9); Potassium 3.9 mmol/L (3.5-5.1)
[2022-06-06 06:13] LABS: Magnesium 1.3 mg/dL (1.6-2.4)
[2022-06-06] MEDS ORDERED: Magnesium Sulfate 2gm IVPB 2 G/50 ML BAG IV ONE ×2 (06:30→15:06)
[2022-06-06] MEDS: POTASS/SODIUM PHOSPHATE 1 PKT POWD.PACK PO SCH ×3 (06:30→09:22)
[2022-06-06] MEDS: levoFLOXacin 750 MG TAB PO SCH (08:02)
[2022-06-06] MEDS: predniSONE 20 MG TAB PO SCH ×2 (08:02→20:14)
[2022-06-06] MEDS: ASPIRIN 81 MG CHEWABLE TABLET PO SCH (08:02)
[2022-06-06] MEDS: HEPARIN 5000 UNIT/ML 1 ML VIAL SQ SCH (08:03)
--- NOTE | 2022-06-06 08:25 | P.PN ---
Subjective Date of Service: 06/06/22 Chief Complaint: Shortness of breath Subjective: Improving (Patient improving doing well no new complaints) Review of Systems General: Weakness Respiratory: Shortness of Breath Physical Examination - Vital Signs Temperature: 96.9 F Blood Pressure: 110/65 Pulse: 65 Respirations: 19 Pulse Ox (%): 93 - Physical Exam General: Alert, Oriented x3 Neck: Supple Respiratory: Clear to auscultation bilaterally, Diminished Assessment And Plan - Current Problems (Diagnosis) (1) Mass of upper lobe of left lung Current Visit: Yes Status: Acute Plan: Patient has a mass in the left upper lobe probably organizing pneumonia recommend discharge on another 5 days of levofloxacin 750 with prednisone 20 mg twice a day for a week then 10 twice a day we will follow-up may need a lung biopsy no evidence of any infection patient however does have fairly significant hypomagnesemia patient does take diuretics at home Physician Review: Patient Assessed, Agree with Above Assessment and Plan
[2022-06-06] MEDS ORDERED: POTASSIUM CL SA 10 MEQ TAB PO ONE (09:00)
--- NOTE | 2022-06-06 09:20 | P.PN ---
Subjective Date of Service: 06/06/22 Chief Complaint: Shortness of breath Patient lying in bed with no signs of cardiopulmonary distress and stated feeling better than a couple of days ago with no more pain, nausea, or diarrhea. Sister at the bedside. Physical Examination - Vital Signs Temperature: 96.9 F Blood Pressure: 110/65 Pulse: 65 Respirations: 19 Pulse Ox (%): 93 - Physical Exam General: Alert, In no apparent distress, Oriented x3 Respiratory: Clear to auscultation bilaterally Cardiovascular: Irregular heart rate/rhythm (A-Fib?) Gastrointestinal: Normal bowel sounds Musculoskeletal: No swelling, No tenderness Integumentary: No rashes, No breakdown Neurological: Normal speech, Normal tone, Normal affect - Studies Current medications: Acetaminophen (Acetaminophen 325 Mg Tablet) 650 mg PO Q6H PRN PRN Reason: TEMP > 100' F Last Admin: 06/05/22 01:48 Dose: 650 mg Hydrocodone Bitart/Acetaminophen (Hydrocodone/Apap 5/325 Mg Tab) 1 tab PO Q6H PRN PRN Reason: Pain scale 5-7 (Moderate) Last Admin: 06/04/22 16:07 Dose: 1 tab Aspirin (Aspirin 81 Mg Chewable Tablet) 81 mg PO DAILY [facility] Last Admin: 06/06/22 08:02 Dose: 81 mg Heparin Sodium (Porcine) (Heparin 5000 Unit/Ml 1 Ml Vial) 5,000 unit SQ Q12HR [facility] Last Admin: 06/06/22 08:03 Dose: 5,000 unit Levofloxacin (Levofloxacin 750 Mg Tab) 750 mg PO DAILY [facility]; Protocol Last Admin: 06/06/22 08:02 Dose: 750 mg Ondansetron HCl (Ondansetron 4 Mg/2 Ml Vial) 4 mg IV Q6HP PRN PRN Reason: NAUSEA / VOMITING Prednisone (Prednisone 20 Mg Tab) 20 mg PO BID [facility] Last Admin: 06/06/22 08:02 Dose: 20 mg Sodium Chloride (Flush Normal Saline 10 Ml) 10 ml IV BID [facility] Last Admin: 06/06/22 08:02 Dose: 10 ml Microbiology 06/04/22 11:15 Blood - Blood Aerobic Blood Culture - Preliminary No growth in 24 hours. 06/04/22 11:15 Blood - Blood Anaerobic Blood Culture - Preliminary No growth in 24 hours. 06/04/22 10:20 Blood - Blood Aerobic Blood Culture - Preliminary No growth in 24 hours. 06/04/22 10:20 Blood - Blood Anaerobic Blood Culture - Preliminary No growth in 24 hours. Assessment And Plan - Current Problems (Diagnosis) (1) Pneumonia Current Visit: Yes Status: Acute Plan: Cultures: - 06/04 BC: Negative Antibiotics: - Had Cefepime and Vancomycin once on 06/04 - Will discontinue PO Levofloxacin (06/05 ->06/06) by primary team secondary to irregular heart beats WBC: - Normal and will continue monitoring the trend Recommendation: - Switch to PO Cefdinir 300 mg BID for total of 7 days duration - Plan - Pneumonia: Recommend to Switch to PO Cefdinir 300 mg BID for total of 7 days - Abdominal pain. CT abdomen indicates 1.4 cm cyst and findings suspicious for Liver cirrhosis - Moderate protein calorie malnutrition: Patient's albumin is low. Recommend to have supplement protein drinks to support adequate immunity for recovery - Class II obesity - DM2 - Hypertension - Hypomagnesemia\hypokalemia: Managed by primary team - CKD 3A - Anemia of chronic disease ID will closely monitoring the patient for signs of infection with fever and WBC trends. Case has been discussed with Dr. De La Vega N Physician Review: Patient Assessed, Agree with Above Assessment and Plan
[2022-06-06] MEDS ORDERED: METOPROLOL TARTRATE 5 MG/5 ML INJ IV STA (11:04)
[2022-06-06] MEDS: CEFDINIR 300 MG CAP PO SCH ×2 (12:33→20:14)
--- NOTE | 2022-06-06 17:30 | CON ---
Date of Consultation: 06/06/2022 Reason For Consultation: Brief episode of paroxysmal atrial fibrillation. History Of Present Illness: This is a 71-year-old male with history of diabetes, hypertension, obstr uctive sleep apnea, presented to the emergency room with shortness of breath, diagnosed with pneumoni a. He was started on IV antibiotics. He apparently failed outpatient oral antibiotics, started to i mprove; however, he had a brief episode of atrial fibrillation with rapid ventricular response that c onverted to sinus rhythm on its own. He is not known to have any history of cardiac disease. Past Medical History: As outlined above in the HPI. Medications: Refer to reconciliation sheet for detailed list. Allergies: NO KNOWN DRUG ALLERGIES. Family History: No premature coronary artery disease or cancer. Social History: Does not smoke or drink. Does not use any drugs. Review of Systems: All systems reviewed and they were negative except what mentioned in HPI. Physical Examination: Vital Signs: Reviewed. Head and Neck: Pupils are equal, reactive to light. Intact eye movements. No JVD. No cervical lym phadenopathy. Neck is supple. Thyroid is not enlarged. Lungs: There are rhonchi bilaterally. No accessory muscle use or muscle retraction. Heart: Regular rate and rhythm. No extra sounds. Abdomen: Soft, nontender. Bowel sounds positive. No organomegaly. No masses or hernia. No rigidi ty or rebound. Extremities: No clubbing or cyanosis. Intact pulses. Skin: No rash. Neurologic: Alert, awake, oriented x3. No acute focal deficits appreciated. Investigations: TSH is 1.6. BUN 15, creatinine 0.81, hemoglobin 11.8. Assessment And Recommendations: 1.Paroxysmal atrial fibrillation. Apparently, this is resolved now. It was a transient episode, co uld be due to the pneumonia. We will recommend to put the patient on low-dose beta-sheela, metoprol ol 12.5 mg twice a day, and also anticoagulation with Eliquis 5 mg twice a day. 2.Hypomagnesemia and hypokalemia. Replace both and keep the patient on telemetry, monitor. 3.Hypertension. Blood pressure is controlled. SR/MODL Voice ID: [id number] Report ID: [id number]
[2022-06-06] MEDS: APIXABAN 5 MG TABLET PO SCH (20:14)
[2022-06-06] MEDS: AMINO ACIDS/PROTEIN HYDROLYS 30 ML LIQUID.PKT PO SCH (20:14)
--- NOTE | 2022-06-06 22:13 | P.PN ---
Date of Service: 06/06/22 Subjective: further improvement developed episode of paroxysmal afib this morning, HR: 150-160s, asymptomatic, sleeping denies history of afib, reports he's been told his heart is large and has some CHF afib resolved after one does of iv metoprolol 5mg ROS: A complete review of systems was performed and is negative except as mentioned above Physical Exam: Gen: NAD, AOx3 HEENT: normal conjunctiva, sclera anicteric CV: regular rate & rhythm, no edema Pulm: non-labored respirations, diminished with crackles on left lung cardona Abd: soft, non-tender, non-distended Skin: no rashes, no lesions Neuro: normal speech, normal affect, moves all extremities vitals reviewed Problem List acute hypoxemic respiratory failure secondary to pneumonia / postinflammatory changes paroxysmal afib Morbidly obese HTN IDDM2 Hypoganemesia/hypokalemia secondary to diarrhea, anemia of chronic disease ?CHF history, unconfirmed, suspect systolic large consolidation, cavitary appearance reports hospitalization ~5 days, discharged ~5 days ago pulm consulted - feels this is post-inflammatory changes; not infectiou ID consulted - recommend coverage with cefdinir levaquin dc'd given afib episode continue empiric antibiotics wean O2 - pt has home O2 - set up on most recent discharge nursing staff working on getting medical records from hospitalization afib, paroxysmal, new onset asympomatic, HR: 150-160s resolved after iv lopressor 5mg x1 start po metoprolol 12.5mg bid eliquis - pt with CHADSVASc : 4 Code: full Dispo: home, ~1-2 days
[2022-06-07 04:38] LABS: Absolute Lymphocytes (CBC) 0.7 K/uL (0.7-4.9); Hematocrit 31.9 % (39.6-49.0); Lymphocytes % 10.1 % (15.3-44.8); MCV 89.7 fL (80-100); RBC Red Blood Cell Count 3.56 M/uL (4.33-5.43)
[2022-06-07 04:51] LABS: Albumin 2.4 g/dL (3.4-5.0); Bilirubin Total 0.9 mg/dL (0.2-1.0); Phosphorus 1.9 mg/dL (2.5-4.9); Potassium 4.5 mmol/L (3.5-5.1); Protein, Total 6.4 g/dL (6.4-8.2)
[2022-06-07 04:53] LABS: Magnesium 1.3 mg/dL (1.6-2.4)
[2022-06-07] MEDS ORDERED: Magnesium Sulfate 2gm IVPB 2 G/50 ML BAG IV ONE ×2 (05:02→15:57)
--- NOTE | 2022-06-07 06:23 | P.PN ---
Date of Service: 06/07/22 Subjective: afib yesterday no acute events overnight magnesium remains low no BM in 2 days appetite improved ROS: A complete review of systems was performed and is negative except as mentioned above Physical Exam: Gen: NAD, AOx3 HEENT: normal conjunctiva, sclera anicteric CV: regular rate & rhythm, no edema Pulm: non-labored respirations, diminished with crackles on left lung cardona; on 1L NC Abd: soft, non-tender, non-distended Neuro: normal speech, normal affect, moves all extremities vitals reviewed Problem List acute hypoxemic respiratory failure secondary to pneumonia / postinflammatory changes paroxysmal afib Morbidly obese HTN IDDM2 Hypoganemesia/hypokalemia secondary to diarrhea, anemia of chronic disease ?CHF history, unconfirmed, suspect systolic large consolidation, cavitary appearance reports hospitalization ~5 days, discharged ~5 days ago pulm consulted - feels this is post-inflammatory changes; not infectiou ID consulted - recommend coverage with cefdinir levaquin dc'd given afib episode wean O2 - pt has home O2 - set up on most recent discharge nursing staff working on getting medical records from hospitalization afib, paroxysmal, new onset asympomatic, HR: 150-160s resolved after iv lopressor 5mg x1 start po metoprolol 25mg bid eliquis - pt with CHADSVASc : 4 hypomagnesemia likely secondary to irma, diarrhea, hyperglycemia; decreased PO intake diarrhea resolved, irma resolved now more hyperglycemic, accucheks, sliding scale restart glipizide Code: full Dispo: home, ~1 day
[2022-06-07] MEDS: AMINO ACIDS/PROTEIN HYDROLYS 30 ML LIQUID.PKT PO SCH ×2 (07:41→21:00)
[2022-06-07] MEDS: APIXABAN 5 MG TABLET PO SCH ×2 (07:41→21:33)
[2022-06-07] MEDS: CEFDINIR 300 MG CAP PO SCH ×2 (07:41→21:00)
[2022-06-07] MEDS: predniSONE 20 MG TAB PO SCH ×2 (07:41→21:33)
[2022-06-07] MEDS: POTASS/SODIUM PHOSPHATE 1 PKT POWD.PACK PO SCH ×3 (09:18→11:14)
[2022-06-07] MEDS: METOPROLOL TAR 25 MG TAB PO SCH (17:03)
--- NOTE | 2022-06-07 17:33 | EKG ---
Test Date: 2022-06-06 Test Time: 16:31:54 Psychology Professor: HARITHA MEASUREMENT RESULTS: Intervals: Rate: 73 RI: 170 QRSD: 102 QT: 416 QTc: 458 [place]: P: 43 RI: 170 QRS: -33 T: 35 INTERPRETIVE STATEMENTS: Normal sinus rhythm Left axis deviation Abnormal ECG Compared to ECG 06/04/2022 10:12:39 Atrial premature complex(es) no longer present ST (T wave) deviation no longer present Electronically Signed On 06-07-22 17:30:52 [employer]TERMINATOR [employer] by Maico Vargas
--- NOTE | 2022-06-07 20:47 | PN ---
Date of Progress Note: 06/07/2022 Subjective: No new complaints. Review of Systems: No chest pain, shortness of breath, orthopnea, cough, nausea, vomiting, or diarrhea. All other syste ms reviewed and they were negative. Physical Examination: Vital Signs: Reviewed. His temperature is 97.8, pulse 72, breathing at 18, blood pressure 136/78, a nd saturating 94% on room air. General: A pleasant elderly male, in no distress. Head and Neck: Pupils are equal and reactive to light. Intact eye movements. No JVD. No cervical lymphadenopathy. Neck is supple. Thyroid is not enlarged. Lungs: Clear to auscultation bilaterally. No rhonchi, wheezing, or crackles. No accessory muscle u se. Heart: Regular rate and rhythm. No extra sounds. Abdomen: Soft, nontender. Bowel sounds positive. No organomegaly. No masses or hernia. No rigidi ty or rebound. Extremities: No clubbing or cyanosis. Intact pulses. Skin: No rash. Neuro: Alert, awake, and oriented x3. No acute focal deficits appreciated. Investigations: BUN 15, creatinine 0.73, magnesium is 1.3, and hemoglobin is 11.4. Assessment/plan: 1.Atrial fibrillation. There was 1 episode and this has resolved. Blood pressure is good. Please put the patient on metoprolol 25 mg twice a day by mouth and continue Eliquis. 2.Hypomagnesemia. Aggressive replacement of magnesium and potassium is recommended. SR/MODL Voice ID: [id number] Report ID: [id number]
[2022-06-07] MEDS ORDERED: GLUCAGON 1 MG/VIAL IM PRN (22:58)
[2022-06-07] MEDS ORDERED: D50W 25 GM/50 ML SYRINGE IV PRN (22:58)
[2022-06-07] MEDS ORDERED: D10W 125 ML IV PRN (23:02)
--- NOTE | 2022-06-08 01:45 | PN ---
Date of Progress Note: 06/07/2022 Subjective: The patient is lying in bed. No new acute event. Chart reviewed. Objective: Vital Signs: Temperature 97, pulse 70, respirations 18, and blood pressure 140/90. Lungs: Basal crackles. Heart: S1, S2 regular. Abdomen: Soft, nontender. Bowel sounds present. Extremities: No edema. Laboratory Data: WBC 6.8, hemoglobin 11.4, and platelets 157. BUN is 15, creatinine 0.7, albumin le evelyn is 2.4. Medication: The patient is currently being treated with cefdinir orally. Assessment And Plan: Pneumonitis. The patient is off IV antibiotic and currently on cefdinir. Diab etes mellitus, anemia of chronic disease, and moderate protein-calorie malnourishment. Continue supp ortive care and respiratory hygiene. We will follow the patient as needed. NF/MODL Voice ID: [id number] Report ID: [id number]
[2022-06-08 05:42] LABS: Phosphorus 1.9 mg/dL (2.5-4.9); Potassium 4.1 mmol/L (3.5-5.1)
[2022-06-08 05:45] LABS: Magnesium 1.4 mg/dL (1.6-2.4)
[2022-06-08] MEDS ORDERED: Magnesium Sulfate 2gm IVPB 2 G/50 ML BAG IV ONE ×2 (05:56→14:26)
[2022-06-08] MEDS: METOPROLOL TAR 25 MG TAB PO SCH ×2 (07:03→17:36)
[2022-06-08] MEDS: glipiZIDE 5 MG TAB PO SCH (07:03)
[2022-06-08] MEDS: CEFDINIR 300 MG CAP PO SCH ×2 (08:24→21:46)
[2022-06-08] MEDS: INSULIN -REGULAR HUMAN 50 UNIT/0.5 ML ML SQ SCH ×4 (08:24→21:47)
[2022-06-08] MEDS: predniSONE 20 MG TAB PO SCH ×2 (08:25→21:46)
[2022-06-08] MEDS: POTASS/SODIUM PHOSPHATE 1 PKT POWD.PACK PO SCH ×3 (08:25→11:03)
[2022-06-08] MEDS: APIXABAN 5 MG TABLET PO SCH ×2 (08:25→21:46)
[2022-06-08] MEDS: AMINO ACIDS/PROTEIN HYDROLYS 30 ML LIQUID.PKT PO SCH ×2 (08:26→21:00)
[2022-06-08] MEDS: LOSARTAN POTASSIUM 50 MG TABLET PO SCH (08:36)
[2022-06-08] MEDS: ATORVASTATIN 40 MG TAB PO SCH (08:36)
[2022-06-08] MEDS: MAGNESIUM CHLORIDE 64 MG TAB PO SCH (08:36)
[2022-06-08] MEDS: METFORMIN HCL 500 MG TAB PO SCH ×2 (08:36→16:12)
--- NOTE | 2022-06-08 22:48 | P.PN ---
Date of Service: 06/08/22 Subjective: no acute events overnight loose/soft BM, denies diarrhea feeling better ROS: A complete review of systems was performed and is negative except as mentioned above Physical Exam: Gen: NAD, AOx3 HEENT: normal conjunctiva, sclera anicteric CV: regular rate & rhythm, no edema Pulm: non-labored respirations, on 1L NC Abd: soft, non-tender, non-distended Neuro: normal speech, normal affect, moves all extremities vitals reviewed Problem List acute hypoxemic respiratory failure secondary to pneumonia / postinflammatory changes paroxysmal afib Morbidly obese HTN IDDM2 Hypoganemesia/hypokalemia secondary to diarrhea, anemia of chronic disease ?CHF history, unconfirmed, suspect systolic large consolidation, cavitary appearance reports hospitalization ~5 days, discharged ~5 days prior to this admission pulm consulted - feels this is post-inflammatory changes; not infectious ID consulted - recommend coverage with cefdinir levaquin dc'd given afib episode wean O2 - pt has home O2 - set up on most recent discharge nursing staff working on getting medical records from hospitalization afib, paroxysmal, new onset asympomatic, HR: 150-160s resolved after iv lopressor 5mg x1 continue PO metoprolol 25mg bid eliquis - pt with CHADSV[facility] : 4 hypomagnesemia likely secondary to irma, diarrhea, hyperglycemia; decreased PO intake diarrhea resolved, irma resolved now more hyperglycemic, accucheks, sliding scale restart glipizide strt PO supplementation Code: full Dispo: home, anticipate dc tomorrow pending more stability of magnesium
[2022-06-09 05:10] LABS: Phosphorus 1.6 mg/dL (2.5-4.9); Potassium 4.1 mmol/L (3.5-5.1)
[2022-06-09 05:12] LABS: Magnesium 1.4 mg/dL (1.6-2.4)
[2022-06-09] MEDS ORDERED: Magnesium Sulfate 2gm IVPB 2 G/50 ML BAG IV ONE ×2 (05:30→19:51)
[2022-06-09] MEDS: METOPROLOL TAR 25 MG TAB PO SCH ×2 (06:21→17:22)
[2022-06-09] MEDS: glipiZIDE 5 MG TAB PO SCH (06:21)
[2022-06-09] MEDS: INSULIN -REGULAR HUMAN 50 UNIT/0.5 ML ML SQ SCH ×4 (08:45→21:29)
[2022-06-09] MEDS: LOSARTAN POTASSIUM 50 MG TABLET PO SCH (08:45)
[2022-06-09] MEDS: predniSONE 20 MG TAB PO SCH (08:45)
[2022-06-09] MEDS: METFORMIN HCL 500 MG TAB PO SCH ×2 (08:45→17:26)
[2022-06-09] MEDS: AMINO ACIDS/PROTEIN HYDROLYS 30 ML LIQUID.PKT PO SCH ×2 (08:46→21:00)
[2022-06-09] MEDS: ATORVASTATIN 40 MG TAB PO SCH (08:57)
[2022-06-09] MEDS: MAGNESIUM CHLORIDE 64 MG TAB PO SCH (08:57)
[2022-06-09] MEDS: APIXABAN 5 MG TABLET PO SCH ×2 (08:58→21:28)
[2022-06-09] MEDS: CEFDINIR 300 MG CAP PO SCH ×2 (08:58→21:28)
[2022-06-09] MEDS: POTASS/SODIUM PHOSPHATE 1 PKT POWD.PACK PO SCH ×3 (08:59→10:33)
[2022-06-09 09:19] VITALS: O2SAT 96
--- NOTE | 2022-06-09 09:38 | RAD REPORT ---
EXAM DESCRIPTION: RAD - Chest Single View - 06/09/2022 6:57 am CLINICAL HISTORY: f/u opacity Chest pain. COMPARISON: Chest Single View dated 06/04/2022; Chest For Pe Angio dated 06/04/2022 FINDINGS: Portable technique limits examination quality. Bilateral pulmonary opacities are noted, greater on the left, appearing unchanged since 06/04/2022. T he heart is mildly prominent in size. No displaced fractures. IMPRESSION: Bilateral pulmonary opacities are present stable since 06/04/2022.
--- NOTE | 2022-06-09 17:06 | P.PN ---
Date of Service: 06/09/22 Subjective: no acute events overnight improving no diarrhea this morning low phos and mg again on O2 ROS: A complete review of systems was performed and is negative except as mentioned above Physical Exam: Gen: NAD, AOx3 HEENT: normal conjunctiva, sclera anicteric CV: regular rate & rhythm, no edema Pulm: non-labored respirations, on 1L NC Abd: soft, non-tender, non-distended Neuro: normal speech, normal affect, moves all extremities vitals reviewed Problem List acute hypoxemic respiratory failure secondary to pneumonia / postinflammatory changes paroxysmal afib Morbidly obese HTN IDDM2 Hypomagnesemia/hypokalemia secondary to diarrhea hypophosphatemia hypocalcemia secondary to hypomagnesemia anemia of chronic disease ?CHF history, unconfirmed, suspect systolic large consolidation, cavitary appearance reports hospitalization ~5 days, discharged ~5 days prior to this admission pulm consulted - feels this is post-inflammatory changes; not infectious ID consulted - recommend coverage with cefdinir levaquin dc'd given afib episode wean O2 - pt has home O2 - set up on most recent discharge nursing staff working on getting medical records from hospitalization CXR with no significant change afib, paroxysmal, new onset asympomatic, HR: 150-160s resolved after iv lopressor 5mg x1 continue PO metoprolol 25mg bid eliquis - pt with [facility]ADSV[facility] : 4 hypomagnesemia Hypophosphatemia likely secondary to irma, diarrhea, hyperglycemia; decreased PO intake diarrhea resolved, irma resolved now more hyperglycemic, accucheks, sliding scale restarte glipizide start PO Mg supplementation 06/08 Code: full Dispo: home, anticipate dc tomorrow pending more stability of magnesium/phos
[2022-06-10 04:04] LABS: Magnesium 1.5 mg/dL (1.6-2.4); Phosphorus 1.8 mg/dL (2.5-4.9); Potassium 3.7 mmol/L (3.5-5.1)
[2022-06-10] MEDS: glipiZIDE 5 MG TAB PO SCH (06:45)
[2022-06-10] MEDS: METOPROLOL TAR 25 MG TAB PO SCH (06:45)
[2022-06-10] MEDS: POTASS/SODIUM PHOSPHATE 1 PKT POWD.PACK PO SCH ×2 (06:46→08:38)
[2022-06-10] MEDS ORDERED: FUROSEMIDE 40 MG/4 ML VIAL IV ONE (07:12)
[2022-06-10] MEDS: INSULIN -REGULAR HUMAN 50 UNIT/0.5 ML ML SQ SCH (07:30)
--- NOTE | 2022-06-10 08:09 | ECHO ---
HEIGHT: 6 ft 2 in WEIGHT: 270 lb 3 oz DATE OF STUDY: 06/07/[address]: Chris Nelson MD 2-DIMENSIONAL: YES M.MODE: YES DOPPLER: YES COLOR FLOW: YES TDS: YES PORTABLE: DEFINITY: BUBBLE STUDY: DIAGNOSIS: NEW ATRIAL FIBRILLATION CARDIAC HISTORY: CATHERIZATION: NO SURGERY: NO PROSTHETIC VALVE: NO PACEMAKER: NO MEASUREMENTS (cm) DIASTOLIC (NORMALS) SYSTOLIC (NORMALS) IVSd 1.0 (0.6-1.2) LA Diam 3.5 (1.9-4.0) LVEF 54% LVIDd 3.3 (3.5-5.7) LVIDs 2.4 (2.0-3.5) %FS 27% LVPWd 1.1 (0.6-1.2) Ao Diam 3.4 (2.0-3.7) 2 DIMENSIONAL ASSESSMENT: RIGHT ATRIUM: NORMAL LEFT ATRIUM: NORMAL RIGHT VENTRICLE: NORMAL LEFT VENTRICLE: NORMAL TRICUSPID VALVE: MILD TRICUSPID REGURGITATION MITRAL VALVE: MILD MITRAL REGURGITATION PULMONIC VALVE: NORMAL AORTIC VALVE: CALCIFIED, NO AORTIC STENOSIS PERICARDIAL EFFUSION: NONE AORTIC ROOT: NORMAL LEFT VENTRICULAR WALL MOTION: NORMAL DOPPLER/COLOR FLOW: SEE BELOW COMMENTS: 1. NORMAL LEFT VENTRICULAR EJECTION FRACTION 55-60% WITH NORMAL WALL MOTION 2. MILD MITRAL REGURGITATION 3. MILD TRICUSPID REGURGITATION 4. AORTIC VALVE SCLEROSIS, NO AORTIC STENOSIS TECHNOLOGIST: MOON YOUNGER
[2022-06-10] MEDS: METFORMIN HCL 500 MG TAB PO SCH (08:36)
[2022-06-10] MEDS: MAGNESIUM CHLORIDE 64 MG TAB PO SCH (08:36)
[2022-06-10] MEDS: ATORVASTATIN 40 MG TAB PO SCH (08:36)
[2022-06-10] MEDS: LOSARTAN POTASSIUM 50 MG TABLET PO SCH (08:37)
[2022-06-10] MEDS: APIXABAN 5 MG TABLET PO SCH (08:37)
[2022-06-10] MEDS: predniSONE 20 MG TAB PO SCH (08:37)
[2022-06-10] MEDS: CEFDINIR 300 MG CAP PO SCH (08:38)
[2022-06-10 08:43] VITALS: BP 144/88
[2022-06-10] MEDS: AMINO ACIDS/PROTEIN HYDROLYS 30 ML LIQUID.PKT PO SCH (09:00)
[2022-06-10] MEDS ORDERED: POTASSIUM CL SA 10 MEQ TAB PO ONE (09:00)
[2022-06-10 09:13] VITALS: TEMP 96.7
--- NOTE | 2022-06-18 00:18 | P.DS ---
Admission Date: 06/04/22 Discharge Date: 06/10/22 Disposition: ROUTINE DISCHARGE Discharge Condition: GOOD Reason for Admission: Shortness of breath Consultations: ID Cardiology Pulmonology Brief History of Present Illness: 71-year-old male with a past medical history significant for DM 2, hypertension, pancreatitis, obesity,\who presents with complaint of shortness of breath. Patient reported that he was recently discharged from [facility] 8 days ago for pneumonia. Patient reported completing prescribed antibiotics. Patient indicated that he felt better for a little while but became sick in the last 3 days. Patient reported that he started having generalized body pains, weakness and fatigue with associated signs and symptoms of cough, shortness of breath, poor appetite, dizziness, nausea, vomiting, diarrhea, subjective fever, chills and abdominal pain located in the upper quadrants. Patient rated pain as 5/10 in severity and described pain as aching in quality. Patient denies any other signs and symptoms. Symptoms are aggravated or relieved by nothing. Patient decided to present to the hospital due to worsening symptoms. Hospital Course: Problem List acute hypoxemic respiratory failure secondary to pneumonia / postinflammatory changes paroxysmal afibf, one episode; new onset Hypertension non-insulin dependent diabetes mellitus type 2 Hypomagnesemia/hypophosphatemia/hypokalemia secondary to diarrhea, decreased PO intake anemia of chronic disease ?CHF history, unconfirmed Patient presented to ED due to not feeling well, shortness of breath, cough, subjective fevers. CT noted moderate consolidation in left upper lobe with cavitary appearance. He was recently discharged 5 days prior after an ~5 day hospitalization foar pneumonia. Pulmonology and Infectious Disease were consulted. Dr. Singh, pulmonology, felt no active infection was ocurring and this was likely post-inflammatory changes and will takel time to improve. Patient was empirically treated with antibiotics and steroids, started on levaquin but changed to cefdinir after episode of atrial fibrillation. To complete 1 more week of antibiotic to cover for possible bacterial infection component. Follow up with Dr. Singh in ~1-2 weeks. 1 more week of steroids. Continue O2 as needed to maintain oxygen saturation >92% Atrial fibrillation noted to briefly have this rhythm, resolved quickly after one dose of IV metoprolol. Cardiology consulted. CHADSVASc: 4. Patient placed on 25mg twice daily metoprolol for rate control and eliquis for stroke prevention. He did not have any further episdoes and remained in sinus rhythm. Suspect electrolyt abnormalities, his respiratory issues, and medication played a role in this episode. Echocardiogram with normal ejection fraction: 55-60%, minimal-mild mitral and tricuspid regurgitation. Electrolyte abnormalities possibly contributed to his initial presenting symptoms. [place] secondary to decreased oral intake, diarrhea, and hyperglycemia. Slowly had improvement as his diarrhea resolved and he began to have increased oral intake, but continued to need daily supplementation. Discharged with daily magnesium supplementation. Recommend daily multi-vitamin. Follow up: PCP within 3-5 days. Monitor electrolyte levels Pulmonology, Dr. Singh, in ~1-2 weeks Cardiology, in ~2-3 weeks Vital Signs/Physical Exam: Temp Pulse Resp BP Pulse Ox 96.7 F L 50 18 144/88 H 96 06/10/22 08:00 06/10/22 08:42 06/10/22 08:00 06/10/22 08:42 06/10/22 08:00 Physical Exam: Gen: NAD, AOx3 HEENT: normal conjunctiva, sclera anicteric CV: regular rate & rhythm, no edema Pulm: non-labored respirations, on 1L NC Abd: soft, non-tender, non-distended Neuro: normal speech, normal affect, moves all extremities Laboratory Data at Discharge: WBC 6.80 K/uL (4.3-10.9) 06/07/22 04:23 Hgb 11.4 g/dL (13.6-17.9) L 06/07/22 04:23 Hct 31.9 % (39.6-49.0) L 06/07/22 04:23 Plt Count 157 K/uL (152-406) 06/07/22 04:23 PT 15.2 SECONDS (9.5-12.5) H 06/04/22 10:20 INR 1.38 06/04/22 10:20 Sodium 141 mmol/L (136-145) 06/10/22 03:27 Potassium 3.7 mmol/L (3.5-5.1) 06/10/22 03:27 BUN 15 mg/dL (7-18) 06/10/22 03:27 Creatinine 0.57 mg/dL (0.70-1.30) L 06/10/22 03:27 Glucose 154 mg/dL (74-106) H 06/10/22 03:27 Phosphorus 1.8 mg/dL (2.5-4.9) L 06/10/22 03:27 Magnesium 1.5 mg/dL (1.6-2.4) L 06/10/22 03:27 Total Bilirubin 0.9 mg/dL (0.2-1.0) 06/07/22 04:23 AST 27 U/L (15-37) 06/07/22 04:23 ALT 29 U/L (16-61) 06/07/22 04:23 Alkaline Phosphatase 102 U/L (45-117) 06/07/22 04:23 Lipase 142 U/L (73-393) 06/07/22 04:23 Home Medications: Atorvastatin Calcium 1 tab PO DAILY 06/06/22 Furosemide 1 tab PO DAILY 06/06/22 Losartan Potassium 1 tab PO DAILY 06/06/22 Metformin HCl 1 tab PO BID 06/06/22 glipiZIDE [Glipizide] 1 tab PO DAILY 06/06/22 Apixaban [Eliquis] 5 mg PO BID 30 Days #60 tab 06/10/22 Cefdinir [Cefdinir*] 300 mg PO BID 7 Days #14 cap 06/10/22 Magnesium Chloride [Slow-Mag*] 2 tab PO DAILY 15 Days #30 tab 06/10/22 Metoprolol Tartrate [Lopressor*] 25 mg PO BID 30 Days #60 tab 06/10/22 predniSONE [Prednisone*] 20 mg PO DAILY 7 Days #7 tab 06/10/22 New Medications: Cefdinir [Cefdinir*] 300 mg PO BID 7 Days #14 cap Apixaban [Eliquis] 5 mg PO BID 30 Days #60 tab Metoprolol Tartrate [Lopressor*] 25 mg PO BID 30 Days #60 tab predniSONE [Prednisone*] 20 mg PO DAILY 7 Days #7 tab Magnesium Chloride [Slow-Mag*] 2 tab PO DAILY 15 Days #30 tab Physician Discharge Instructions: Problem List acute hypoxemic respiratory failure secondary to pneumonia / postinflammatory changes paroxysmal afibf, one episode; new onset Hypertension non-insulin dependent diabetes mellitus type 2 Hypomagnesemia/hypophosphatemia/hypokalemia secondary to diarrhea, decreased PO intake anemia of chronic disease ?CHF history, unconfirmed Patient presented to ED due to not feeling well, shortness of breath, cough, subjective fevers. CT noted moderate consolidation in left upper lobe with cavitary appearance. He was recently discharged 5 days prior after an ~5 day hospitalization foar pneumonia. Pulmonology and Infectious Disease were consulted. Dr. Singh, pulmonology, felt no active infection was ocurring and this was likely post-inflammatory changes and will takel time to improve. Patient was empirically treated with antibiotics and steroids, started on levaquin but changed to cefdinir after episode of atrial fibrillation. To complete 1 more week of antibiotic to cover for possible bacterial infection component. Follow up with Dr. Singh in ~1-2 weeks. 1 more week of steroids. Continue O2 as needed to maintain oxygen saturation >92% Atrial fibrillation noted to briefly have this rhythm, resolved quickly after one dose of IV metoprolol. Cardiology consulted. CHADSVASc: 4. Patient placed on 25mg twice d aily metoprolol for rate control and eliquis for stroke prevention. He did not have any further episdoes and remained in sinus rhythm. Suspect electrolyt abnormalities, his respiratory issues, and medication played a role in this episode. Echocardiogram with normal ejection fraction: 55-60%, minimal-mild mitral and tricuspid regurgitation. Electrolyte abnormalities possibly contributed to his initial presenting symptoms. [place] secondary to decreased oral intake, diarrhea, and hyperglycemia. Slowly had improvement as his diarrhea resolved and he began to have increased oral intake, but continued to need daily supplementation. Discharged with daily magnesium supplementation. Recommend daily multi-vitamin. Follow up: PCP within 3-5 days. Monitor electrolyte levels Pulmonology, Dr. Singh, in ~1-2 weeks Cardiology, in ~2-3 weeks Time spent managing pt's care (in minutes): 45
== END 2022-06-10 09:50 | disposition home or self-care (01) | DRG 193 ==
LOC: ER 09:45 → ERHOLD 12:57 → 4TH 14:42
PROVIDERS: ADMIT Hospitalist; ATTEND Hospitalist
DX: J18.9 Pneumonia, unspecified organism (principal); J96.01 Acute respiratory failure with hypoxia; E44.0 Moderate protein-calorie malnutrition; N17.9 Acute kidney failure, unspecified; E86.0 Dehydration; E83.42 Hypomagnesemia; I12.9 Hypertensive chronic kidney disease with stage 1 through stage 4 chronic kidney disease, or unspecified chronic kidney disease; N18.31 Chronic kidney disease, stage 3a; E11.22 Type 2 diabetes mellitus with diabetic chronic kidney disease; E11.65 Type 2 diabetes mellitus with hyperglycemia; D63.1 Anemia in chronic kidney disease; I48.0 Paroxysmal atrial fibrillation; E83.39 Other disorders of phosphorus metabolism; E87.6 Hypokalemia; E66.01 Morbid (severe) obesity due to excess calories; Z90.49 Acquired absence of other specified parts of digestive tract; Z99.81 Dependence on supplemental oxygen; Z68.34 Body mass index [BMI] 34.0-34.9, adult; Z79.52 Long term (current) use of systemic steroids; Z79.84 Long term (current) use of oral hypoglycemic drugs; Z79.899 Other long term (current) drug therapy; Z20.822 Contact with and (suspected) exposure to COVID-19
CPT/HCPCS: 0240U; 36415; 71045; 71275; 74177; 76700; 80048; 80053; 80074; 80076; 81003; 82947; 83036; 83605; 83690; 83735; 83880; 84100; 84132; 84145; 84439; 84443; 84484; 85025; 85610; 87040; 93005; 93306; 94640; 96361; 96365; 96375; 99285; J0692; J1644; J1815; J1940; J3370; J3475; J7040; J7050; J7512; J7613; J7644; Q9967

== ENCOUNTER 2024-09-04 21:39 | Emergency (ER) | payer OTHER ==
--- OUTSIDE RECORDS SUMMARY | 2024-09-04 21:56 | XMS REPORT | Continuity of Care Document ---
Author Name Unknown Address [address] [facility] [place] [address] [facility] Address [address] [facility] [place] [address] Care Team Providers Care Technology Director Name Role Phone Zander Gaston Attending Clinician Unavailable Favian Zamora Attending Clinician Unavailable Mary Rojas Attending Clinician Unavailable Vanessa Nur Attending Clinician Unavailable CATIE MONTAGUE Attending Clinician Un available Sulema Robertson Attending Clinician Darrick Benson Attending Clinician Unava ilable Lizzy Duke Attending Clinician Unavailable Zander Gaston Admitting Clinician Unavailable Favian Zamora Admitting Clinician Unavailable Mary Rojas Admitting Clinician Unavailable Vanessa Nur Admitting Clinician Unavailable JOESPH RAYMUNDO Admitting Clinician Unavailable Darrick Benson Admitting Clinician Unava ilable Lizzy Duke Admitting Clinician Unavailable Physician, No Primary or Family Admitting Clinic addison Unavailable Payers Payer Name Policy Type Policy Number Effective Date Expirati on Date Source [employer]AN [id number] 2022 00:00:00 [id number] Problems Condition Name Condition Details Condition Category Status Onset Date Resolution Date Last Treatment Date Treating Clinician Comments Source DEHYDRATIO N DEHYDRATIO N Active [facility] Diagnosis Active 09-18 00:00: 00 2022-10-08 00:21:00 [facility] [place] ACUTE DYSPNEA;PN EUMONIA INVOLVING LEFT L ACUTE DYSPNEA;PN EUMONIA INVOLVING LEFT L Active 09/18/2022 [facility] Diagnosis Active 09-18 00:00: 00 2022-10-08 00:21:00 [facility] Pain of knee region Pain of knee region Active Problem 09/28/[address] [facility] [place] [place] Problem Active 2022-09-28 05:32:00 [facility] Tuberculos is (disorder) Tuberculos is (disorder) Active Problem 09/28/[address] [facility] [place] [place] Problem Active 2022-09-28 05:32:00 [facility] DYSPNEA, UNSPECIFIE D DYSPNEA, UNSPECIFIE D Active [facility] Diagnosis Active 2022-10-08 00:21:00 [facility] [place] PNEUMONIA, UNSPECIFIE D ORGANISM PNEUMONIA, UNSPECIFIE D ORGANISM Active [facility] Diagnosis Active 2022-10-08 00:21:00 [facility] [place] Cyst of pancreas (disorder) Cyst of pancreas (disorder) Active Problem 09/28/[address] [facility] [place] [place] Problem Active 2022-09-28 05:32:00 [facility] Hypomagnes emia (disorder) Hypomagnes emia (disorder) Active Problem 09/28/[address] [facility] [place] [place] Problem Active 2022-09-28 05:32:00 [facility] Liver cyst (disorder) Liver cyst (disorder) Active Problem 09/28/[address] [facility] [place] [place] Problem Active 2022-09-28 05:32:00 [facility] [place] Obesity (disorder) Obesity (disorder) Active Problem 09/28/[address] [facility] [place] [place] Problem Active 2022-09-28 05:32:00 Lavelle Sanders Allergies, Adverse Reactions, Alerts Allergy Name Allergy Type Status Severity Reaction(s) Onset Date Inactive Date Treating Clinician Comments Source No Known Allergie s DA Active U 1-04 00:00: 00 [facility] No Known Allergie s DA Active U 2- 00:00: 00 [facility] No Known Allergie s DA Active U 10-26 00:00: 00 [facility] No Known Allergie s DA Active U 10-26 00:00: 00 [facility] No Known Allergie s DA Active U 01-24 00:00: 00 [facility] NO KNOWN DRUG ALLERGIE S DA Active [facility] No Known/Ne w Allergie s Allergy Active [facility] Social History Social Habit Start Date Stop Date Quantity Comments Source Sex Ass[birth year] At [birth year] 00:00:00 [facility] Smoking Status Start Date Stop Date Source Tobacco smoking consumption unknown [facility] Tobacco smoking status Zari Sanders Medications Ordered Medication Name Filled Medication Name Start Date Stop Date Current Medication? Ordering Clinician Indication Dosage Frequency Signature (SIG) Comments Components Source magnesium oxide 400 mg oral tablet 09-24 21:06: 00 Yes 400 mg = 1 tab, PO, TID, dosed as magnesium oxide salt, X 7 day, # 21 tab, 0 Refill(s), Pharmacy: [id number], 187.96, cm, 09/23/22 10:43:00 CDT, Height, 113.136, kg, 09/23/22 10:43:00 CDT, Weight Lavelle Sanders magnesium oxide 09-22 18:00: 00 Yes Notes: (Same as: Mag-Ox 400) Magnesium oxide 688lg=364r g elemental magnesium Dose=____m g magnesium oxide (___mg elemental magnesium) Lavelle Sanders Dotarem 376.9 mg /mL (0.5 mmol/mL) intravenous solution 09-21 22:45: 00 Yes Notes: Same as: Dotarem, Clariscan Lavelle Sanders magnesium sulfate 2gm in NS 50 mL (premixed) 09-21 21:11: 00 No Notes: WASTE: F/P - Sink; E - Municipal Trash Bin Lavelle Sanders Voltaren Topical 1% topical gel 09-21 14:00: 00 Yes Notes: Same as: Voltaren Gel Lavelle Sanders potassium chloride 20 mEq oral tablet, extended release (KCL) 09-21 12:54: 00 No /= 14 Danish, may dissolve each 20 mEq tablet in 4 oz of water. Allow about 2 minutes for the tablets to disintegra te. Stir before giving to prepare slurry and administer . Please exclude patient's with feeding tube less than 14 Danish (Dobhoff, J-tube, etc) and pediatric and patients. Lavelle Sanders isoniazid 09-21 05:00: 00 Yes Notes: (Same as:INH 1 hr prior to meal. Lavelle Sanders pyrazinamid e 09-21 05:00: 00 Yes 1,500 mg, 3 tab, Route: PO, Drug form: TAB, [id number], Dosing Weight 105.5, kg, Start date: 09/21/22 0:00:00 CDT, Duration: 30 day, Stop date: 10/20/22 0:00:00 CDT, 0 Lavelle Sanders ethambutol 09-21 05:00: 00 Yes Notes: (Same as: Myambutol) Lavelle Sanders Vitamin B6 09-21 05:00: 00 Yes Notes: (Same as: Vitamin B6) Lavelle Sanders rifaMPIN 09-21 04:00: 00 Yes Notes: (Same as: Rifadin) Lavelle Sanders predniSONE 09-20 14:00: 00 No Notes: Take with food. Lavelle Sanders Flagyl 09-20 14:00: 00 No Notes: (Same as: Flagyl) Avoid alcohol. Lavelle Sanders magnesium sulfate 09-20 11:05: 00 No Notes: WASTE: F/P - Sink; E - Municipal Trash Bin Lavelle Sanders magnesium sulfate 09-20 01:35: 00 No Notes: WASTE: F/P - Sink; E - Municipal Trash Bin Lavelle Sanders metFORMIN 1000 mg oral tablet 09-19 23:45: 00 Yes 1,000 mg = 1 tab, PO, BID Lavelle Sanders losartan 50 mg oral tablet 09-19 23:45: 00 Yes 50 mg = 1 tab, PO, Daily Lavelle Sanders glipiZIDE 5 mg oral tablet 09-19 23:44: 00 Yes 5 mg = 1 tab, PO, Daily Lavelle Sanders furosemide 20 mg oral tablet 09-19 23:44: 00 Yes 20 mg = 1 tab, PO, Daily Lavelle Sanders atorvastati n 40 mg oral tablet 09-19 23:43: 00 Yes 40 mg = 1 tab, PO, Daily Lavelle Sanders metoprolol tartrate 25 mg oral tablet 09-19 23:42: 00 Yes 25 mg = 1 tab, PO, BID Lavelle Sanders Eliquis 5 mg oral tablet 09-19 23:40: 00 Yes 5 mg = 1 tab, PO, BID Lavelle Sanders DuoNeb inhalation solution 09-19 23:00: 00 No Notes: (Same as: Duoneb) Lavelle sanford [place] lidocaine 4% topical film 09-19 22:00: 00 Yes Notes: Patch is applied to intact skin to cover painful area for up to 12 hours in a 24-hour period (12 hours on and 12 hours off). Please indicate the location of applicatio n site. Site 1: Remove old patch before applicatio n of new patch. (Same as Aspercreme Lidocaine Patch) Lavelle Sanders potassium chloride 09-19 21:49: 00 Yes /= 14 Danish, may dissolve each 20 mEq tablet in 4 oz of water. Allow about 2 minutes for the tablets to disintegra te. Stir before giving to prepare slurry and administer . Please exclude patient's with feeding tube less than 14 Danish (Dobhoff, J-tube, etc) and pediatric and patients. Lavelle Sanders magnesium sulfate 09-19 21:49: 00 Yes Notes: WASTE: F/P - Sink; E - Municipal Trash Bin Lavelle Sanders Zofran 09-19 21:46: 00 Yes Notes: (Same as: Roberto) MEDICATION WASTE Product Size: 4 mg Product Wasted: ___ mg Lavelle Sanders bisacodyl 09-19 21:41: 00 Yes Notes: (Same As: Dulcolax, Bisco-Lax) Lavelle claribel Sanders Al hydroxide/M g hydroxide/s imethicone 200 mg-200 mg-20 mg/5 mL oral suspension 09-19 21:41: 00 Yes Notes: (aluminum hydroxide- magnesium hyd-simeth icone 200-200-20 mg/5ml 30 ml ud CHAYA) Lavelle sanford Tommy simethicone 09-19 21:41: 00 Yes Notes: (Same as: Mylicon) Judelucrecia claribel Sanders dextrometho rphan-guaiF ENesin 10 mg-100 mg/5 mL oral liquid 09-19 21:41: 00 Yes Notes: (dextromet horphan-gu aifenesin 10-100mg/5 ml 10 ml oral SOLN ud) (Same as: Robitussin DM) Lavelle Sanders melatonin 3 mg oral tablet 09-19 21:41: 00 Yes Notes: (Same as: Melatonin) Judelucrecia claribel Sanders docusate-se nna 50 mg-8.6 mg oral tablet 09-19 21:41: 00 Yes Notes: (Same as Senokot-S) Equiv. to Tonie-Colac e. Lavelle Sanders Tums 09-19 21:41: 00 Yes Notes: (Same As: Tums) Calcium Carbonate 500 mg = 200 mg elemental calcium Dose = mg calcium carbonate ( mg elemental calcium) Lavelle Sanders potassium chloride 09-19 17:00: 00 No /= 14 Danish, may dissolve each 20 mEq tablet in 4 oz of water. Allow about 2 minutes for the tablets to disintegra te. Stir before giving to prepare slurry and administer . Please exclude patient's with feeding tube less than 14 Danish (Dobhoff, J-tube, etc) and pediatric and patients. Judelucrecia claribel Sanders potassium chloride 09-19 12:01: 00 No /= 14 Danish, may dissolve each 20 mEq tablet in 4 oz of water. Allow about 2 minutes for the tablets to disintegra te. Stir before giving to prepare slurry and administer . Please exclude patient's with feeding tube less than 14 Danish (Dobhoff, J-tube, etc) and pediatric and patients. Lavelle Sanders azithromyci n 09-19 09:00: 00 No Notes: Same as: Zithromax Lavelle Sanders cefTRIAXone + sterile water 10 mL 09-19 09:00: 00 No Notes: (Same As: Rocephin). Use with 100 mL NS and infuse over 30 min MEDICATION WASTE Product Size: 1000 mg Product Wasted: ___ mg Lavelle Sanders Lovenox 09-19 09:00: 00 Yes Notes: (Same as: Lovenox) Lavelle Sanders tramadol 09-19 08:49: 00 Yes Notes: Not to exceed 400mg/day. (Same As: Ultram) Lavelle Sanders acetaminoph en 09-19 08:37: 00 Yes Notes: Do not exceed 4 gm/day. (Same as: Tylenol) Lavelle Sanders guaiFENesin 09-19 08:37: 00 Yes Notes: (Same as: Robitussin ) Lavelle Sanders albuterol 0.083% inhalation solution 09-19 08:37: 00 Yes Notes: SEE RT DOCUMENTAT ION (Same as: Proventil) Lavelle Sanders Omnipaque 350 09-19 04:04: 00 No 80 ml, Route: IV, Dosing Weight 101.847, kg, ONCE, Start date: 09/18/22 23:04:00 CDT, Stop date: 09/18/22 23:04:00 CDT Lavelle Sanders vancomycin + Sodium Chloride 0.9% IV 250 mL 09-19 02:10: 00 No 2001 mg: infuse over 2.5 hours For adult patients only: Round to nearest 250 mg per Medical Staff approval MEDICATION WASTE Product Size: 1000 mg Product Wasted: ___ mg [facility] Sodium Chloride 0.9% (Bolus) IV 09-18 23:54: 00 No 1,000 mL, 1,000 ml/hr, Infuse Over: 1 hr, Route: IV, 1,000, Drug form: INJ, ONCE, Priority: STAT, Dosing Weight 101.847 kg, Start date: 09/18/22 18:54:00 CDT, Stop date: 09/18/22 18:54:00 CDT, 0 [facility] cefepime + Sodium Chloride 0.9% IV 100 mL 09-18 22:52: 00 No Notes: (Same as: Maxipime) MEDICATION WASTE Product Size: 2000 mg Product Wasted: ___ mg [facility] Saline Flush 0.9% 09-18 22:25: 00 Yes Notes: (Same as: BD Posiflush) [facility] [place] Vital Signs Vital Name Observation Time Observation Value Comments S ource Heart Rate 2022-09-25 22:27:17 [facility] Systolic (mm Hg) 2022-09-25 22:27:10 [facility] Diastolic (mm Hg) 2022-09-25 22:27:10 [facility] Temperature Oral (F) 2022-09-25 22:26:52 98.1 F [facility] [place] Temperature Oral (F) 2022-09-25 09:02:19 97.5 F [facility] [place] Height 2022-09-23 15:43:00 6 [ft_i] [facility] Weight 2022-09-23 15:43:00 [facility] [place] BMI Calculated 2022-09-23 15:43:00 [facility] [place] Heart Rate 2022-09-23 08:53:00 [facility] [place] Respitory Rate 2022-09-23 08:53:00 [facility] [place] Systolic (mm Hg) 2022-09-23 08:52:46 [facility] [place] Diastolic (mm Hg) 2022-09-23 08:52:46 [facility] Heart Rate 2022-09-23 08:52:46 [facility] [place] Temperature Oral (F) 2022-09-23 08:52:12 97.7 F [facility] [place] Heart Rate 2022-09-23 05:14:29 [facility] [place] Respitory Rate 2022-09-23 05:14:29 [facility] [place] Temperature Oral (F) 2022-09-23 05:14:04 98.1 F [facility] Systolic (mm Hg) 2022-09-23 05:13:48 [facility] Diastolic (mm Hg) 2022-09-23 05:13:48 [facility] [place] Respitory Rate 2022-09-23 00:05:53 [facility] Systolic (mm Hg) 2022-09-23 00:05:00 [facility] Diastolic (mm Hg) 2022-09-23 00:05:00 [facility] Temperature Oral (F) 2022-09-23 00:04:44 97.6 F [facility] Height 2022-09-20 03:49:00 187.96 cm [facility] [place] Weight 2022-09-20 03:49:00 [facility] BMI Calculated 2022-09-20 03:49:00 [facility] [place] Height 2022-09-18 22:19:00 187.96 cm [facility] [place] BMI Calculated 2022-09-18 22:19:00 [facility] Weight 2022-09-18 22:19:00 [facility] Procedures Procedure Date / Time Performed Performing Clinicia n Source DETACHMENT AT RIGHT 1ST TOE, COMPLETE, OPEN APPROA 2024-08-06 00:00:00 [id number] [facility] GAIT TRAINING/FUNCTIONAL AMBULATION TREATMENT 2024-08-05 00:00:00 PIRZA [facility] INSERTION OF INFUSION DEV INTO L AXILLA VEIN, PERC 2024-07-31 00:00:00 DATAN [facility] [id number] 2019-10-08 00:00:00 GROWE [facility] [id number] 2019-10-07 00:00:00 GROWE [facility] [id number] 2019-10-04 00:00:00 DANHA.02 [facility] [id number] 2019-10-02 00:00:00 DIRK [facility] [id number] 2019-10-02 00:00:00 DIRK [facility] [id number] 2019-09-25 00:00:00 ISELA [facility] [id number] 2019-09-25 00:00:00 GREBORIS [facility] Encounters Start Date/Time End Date/Time Encounter Type Admission Type Attending [facility] Facility Care Department Encounter ID Source 2023-03-28 16:10:27 Inpatient Zander Gaston HCAKW HCAKW [id number] [facility] 2022-10-29 14:11:29 [facility] [id number] [facility] 2022-10-17 06:01:15 [facility] [id number] [facility] 2021-07-16 11:30:00 Inpatient Favian Anderson [facility] END[facility] [id number] [facility] 2024-08-24 00:00:00 2024-08-24 00:00:00 Outpatient R [facility]SH MED [id number] [facility] 2024-08-10 19:43:00 2024-08-14 17:49:00 Inpatient EM Mary Rojas HCAKW CARD [id number] [facility] 2024-07-31 18:45:00 2024-08-08 17:13:00 Inpatient EM Vanessa Nur HCAKW MAS [id number] [facility] 2024-01-05 00:00:00 2024-01-05 00:00:00 Outpatient R [facility]SH MED [id number] [facility] 2023-04-28 00:00:00 2023-04-28 00:00:00 Outpatient R OSH MED [id number] [facility] 2023-04-25 00:00:00 2023-04-25 00:00:00 Outpatient R OSH MED [id number] [facility] 2022-09-27 17:32:00 2022-10-12 17:20:00 Inpatient EM Zander Gaston HCAKW IMCU [id number] [facility] 2022-09-18 22:17:22 2022-09-26 00:55:[address] [facility] [place] [id number] Lavelle Sanders 2022-09-18 22:22:00 2022-09-25 19:55:00 Inpatient CATIE SOTO [facility] MED [id number] 2022-09-18 00:00:00 2022-09-18 00:00:00 Outpatient R OSH OSH [id number] [facility] 2022-08-16 00:00:00 2022-08-16 00:00:00 Outpatient R OSH OSH [id number] [facility] 2021-02-21 00:00:00 2021-02-21 00:00:[address] [facility] [id number] [facility] 2019-10-06 17:26:00 2019-10-22 09:59:55 Inpatient Darrick Arias HCAKW REHA [id number] [facility] 2019-10-01 18:16:00 2019-10-10 00:09:00 Inpatient Darrick Arias HCAKW REHA [id number] [facility] 2019-10-02 15:58:00 2019-10-08 05:07:29 Inpatient ANALY MattLizzy oropeza HCAKW REHA [id number] [facility] 2019-09-22 14:26:00 2019-10-05 00:22:19 Inpatient HCAKW BACILIO [id number] [facility] 2019-09-22 20:26:00 2019-09-22 20:26:00 Outpatient Lizzy Duke HCACL OUTD [id number] [facility] Results Test Description Test Time Test Comments Results Result Co mments Source [id number] 16:23:00* Test Item Value Reference Range Interpretation Comme nts GLUBED (test code = GLUBED) 141 MG/DL 74-106 H [id number] 05:48:00* Test Item Value Reference Range Interpretation Comme nts GLUBED (test code = GLUBED) 170 MG/DL 74-106 H COMPREHENSIVE METABOLIC [id number] 04:44:00* Test Item Value Reference Range Interpretation Comme nts SODIUM (test code = NA) 139 mmol/L 136-145 N POTASSIUM (test code = K) 3.8 mmol/L 3.5-5.1 N CHLORIDE (test code = CL) 103 mmol/L 98-107 N CARBON DIOXIDE (test code = CO2) 28.0 mmol/L 20.0-31.0 N ANION GAP (test code = GAP) 12 mmol/L 10-20 N GLUCOSE (test code = GLU) 100 mg/dL 74-106 N BLOOD UREA NITROGEN (test code = BUN) 6 mg/dL 9-23 L GLOMERULAR FILTRATION RATE (test code = GFR) 90 mL/min The Glomerular Filtration Rate is a calculated parameterbased on serum Creatinine, patient age and sex. GFR valuesless than 60 mL/min/1.73 square meters are indicative ofChronic Kidney Disease. Values less than 15 mL/min/1.73square meters indicate Kidney failure. The calculation forGFR is based on the CKD-EPI (202) calculation. This formulais race indifferent and is the recommended formula for GFRby the National Kidney Foundation for Adults.The GFR will not calculate if the sex is unknown or if thepatient's age is <18 years. CREATININE (test code = CREAT) 0.84 mg/dL 0.55-1.30 N TOTAL PROTEIN (test code = PROT) 6.5 g/dL 5.7-8.2 N ALBUMIN (test code = ALB) 3.4 g/dL 3.4-5.0 N CALCIUM (test code = CA) 8.9 mg/dL 8.7-10.4 N BILIRUBIN TOTAL (test code = BILT) 1.20 mg/dL 0.20-1.10 H BILIRUBIN CONJUGATED (test code = BILCON) 0.5 mg/dL 0.1-0.3 H "A positive bias may occur for patients taking Eltrombopag(a bone marrow stimulant used to treat thrombocytopenia andaplastic anemia)." CONJUGATE D BILIRUBIN IS THE REPLACEMENT ASSAY FOR DIRECTBILIRUBIN. BILIRUBIN UNCONJUGATED (test code = BILUNC) 0.70 mg/dL 0-1.1 N SGOT/AST (test code = AST) 35 U/L 0-33 H SGPT/ALT (test code = ALT) 15 U/L 10-49 N ALKALINE PHOSPHATASE (test code = ALKP) 102 U/L 46-116 N INDEX HEMOLYSIS (test code = HEMINDEX) 0 Index/DL 0-3 N [id number] 04:40:00* Test Item Value Reference Range Interpretation Comme nts MAGNESIUM (test code = MAG) 1.2 mg/dL 1.6-2.6 L CBC W/AUTO [id number] 04:21:00* Test Item Value Reference Range Interpretation Comme nts WHITE BLOOD CELL (test code = WBC) 6.4 x10 3/uL 5.0-12.0 N RED BLOOD CELL (test code = RBC) 4.10 x10 6/uL 4.70-6.10 L HEMOGLOBIN (test code = HGB) 12.4 g/dL 14.0-18.0 L HEMATOCRIT (test code = HCT) 35.7 % 37.0-49.0 L MEAN CELL VOLUME (test code = MCV) 87 fL 80-94 N MEAN CELL HGB (test code = MCH) 30.2 pg 27-31 N MEAN CELL HGB CONCENTRATION (test code = MCHC) 34.7 g/dL 33-37 N RED CELL DISTRIBUTION WIDTH (test code = RDW) 13.5 % 11.5-15.5 N PLATELET COUNT (test code = PLT) 150 x10 3/uL 130-400 N MEAN PLATELET VOLUME (test c ode = MPV) 8.8 fL 9.4-16.4 L NEUTROPHIL % (test code = NT%) 60.7 % 43-65 N IMMATURE GRANULOCYTE % (test code = IG%) 0.3 % 0.0-2.0 N LYMPHOCYTE % (test code = LY%) 22.8 % 20.5-45.5 N MONOCYTE % (test code = MO%) 11.3 % 5.5-11.7 N EOSINOPHIL % (test code = EO%) 4.1 % 0.9-2.9 H BASOPHIL % (test code = BA%) 0.8 % 0.2-1.0 N NUCLEATED RBC % (test code = NRBC%) 0.0 % 0-1.0 N NEUTROPHIL # (test code = NT#) 3.87 x10 3/uL 2.2-4.8 N IMMATURE GRANULOCYTE # (test code = IG#) 0.02 x10 3/uL 0-0.03 N LYMPHOCYTE # (test code = LY#) 1.45 x10 3/uL 1.3-2.9 N MONOCYTE # (test code = MO#) 0.72 x10 3/uL 0.3-0.8 N EOSINOPHIL # (test code = EO#) 0.26 x10 3/uL 0.0-0.2 H BASOPHIL # (test code = BA#) 0.05 x10 3/uL 0.0-0.1 N AG [id number] 21:52:00* Test Item Value Reference Range Interpretation Comme [facility] AG CARCINOEMBRYONIC (test code = CEA) 1.8 ng/dL 0.0-2.9 N [employer] IM CE A assay. Values obtained with different assay methods or kits cannotbe used interchangeably. Do not interpret levels of CEA as absolute evidence of thepresence or the absence of malignant disease. Measurementsof CEA should always be used in conjunction with otherdiagnostic procedures, including information from thepatients's clinical evalualation. [id number] 20:10:00* Test Item Value Reference Range Interpretation Comme nts GLUBED (test code = GLUBED) 143 MG/DL 74-106 H [id number] 17:34:00* Test Item Value Reference Range Interpretation Comme nts GLUBED (test code = GLUBED) 197 MG/DL 74-106 H ACUTE HEPATITIS [id number] 15:45:00* Test Item Value Reference Range Interpretation Comme nts AG HEPATITIS B SURFACE (test code = HBSAG) NON-REACTIVE NonReactive AB HEPATITIS C (test code = HCVAB) NON-REACTIVE NEGATIVE [id number] 12:48:00* Test Item Value Reference Range Interpretation Comme nts GLUBED (test code = GLUBED) 112 MG/DL 74-106 H VANCOMYCIN [id number] 09:26:00* Test Item Value Reference Range Interpretation Comme nts VANCOMYCIN TROUGH (test code = VANCT) 14.6 ug/mL 10-20.0 N [id number] 06:37:00* Test Item Value Reference Range Interpretation Comme nts GLUBED (test code = GLUBED) 83 MG/DL 74-106 N COMPREHENSIVE METABOLIC [id number] 04:07:00* Test Item Value Reference Range Interpretation Comme nts SODIUM (test code = NA) 140 mmol/L 136-145 N POTASSIUM (test code = K) 3.1 mmol/L 3.5-5.1 L CHLORIDE (test code = CL) 103 mmol/L 98-107 N CARBON DIOXIDE (test code = CO2) 28.0 mmol/L 20.0-31.0 N ANION GAP (test code = GAP) 12 mmol/L 10-20 N GLUCOSE (test code = GLU) 80 mg/dL 74-106 N BLOOD UREA NITROGEN (test code = BUN) 6 mg/dL 9-23 L GLOMERULAR FILTRATION RATE (test code = GFR) 89 mL/min The Glomerular Filtration Rate is a calculated parameterbased on serum Creatinine, patient age and sex. GFR valuesless than 60 mL/min/1.73 square meters are indicative ofChronic Kidney Disease. Values less than 15 mL/min/1.73square meters indicate Kidney failure. The calculation forGFR is based on the CKD-EPI (202) calculation. This formulais race indifferent and is the recommended formula for GFRby the National Kidney Foundation for Adults.The GFR will not calculate if the sex is unknown or if thepatient's age is <18 years. CREATININE (test code = CREAT) 0.88 mg/dL 0.55-1.30 N TOTAL PROTEIN (test code = PROT) 5.9 g/dL 5.7-8.2 N ALBUMIN (test code = ALB) 3.2 g/dL 3.4-5.0 L CALCIUM (test code = CA) 8.2 mg/dL 8.7-10.4 L BILIRUBIN TOTAL (test code = BILT) 0.90 mg/dL 0.20-1.10 N BILIRUBIN CONJUGATED (test code = BILCON) 0.5 mg/dL 0.1-0.3 H "A positive bias may occur for patients taking Eltrombopag(a bone marrow stimulant used to treat thrombocytopenia andaplastic anemia)." CONJUGATE D BILIRUBIN IS THE REPLACEMENT ASSAY FOR DIRECTBILIRUBIN. BILIRUBIN UNCONJUGATED (test code = BILUNC) 0.40 mg/dL 0-1.1 N SGOT/AST (test code = AST) 30 U/L 0-33 N SGPT/ALT (test code = ALT) 15 U/L 10-49 N ALKALINE PHOSPHATASE (test code = ALKP) 83 U/L 46-116 N INDEX HEMOLYSIS (test code = HEMINDEX) 0 Index/DL 0-3 N [id number] 04:00:00* Test Item Value Reference Range Interpretation Comme nts MAGNESIUM (test code = MAG) 0.9 mg/dL 1.6-2.6 L CBC W/AUTO [id number] 03:43:00* Test Item Value Reference Range Interpretation Comme nts WHITE BLOOD CELL (test code = WBC) 5.5 x10 3/uL 5.0-12.0 N RED BLOOD CELL (test code = RBC) 3.71 x10 6/uL 4.70-6.10 L HEMOGLOBIN (test code = HGB) 11.4 g/dL 14.0-18.0 L HEMATOCRIT (test code = HCT) 32.6 % 37.0-49.0 L MEAN CELL VOLUME (test code = MCV) 88 fL 80-94 N MEAN CELL HGB (test code = MCH) 30.7 pg 27-31 N MEAN CELL HGB CONCENTRATION (test code = MCHC) 35.0 g/dL 33-37 N RED CELL DISTRIBUTION WIDTH (test code = RDW) 13.4 % 11.5-15.5 N PLATELET COUNT (test code = PLT) 148 x10 3/uL 130-400 N MEAN PLATELET VOLUME (test c ode = MPV) 9.2 fL 9.4-16.4 L NEUTROPHIL % (test code = NT%) 53.1 % 43-65 N IMMATURE GRANULOCYTE % (test code = IG%) 0.2 % 0.0-2.0 N LYMPHOCYTE % (test code = LY%) 29.0 % 20.5-45.5 N MONOCYTE % (test code = MO%) 11.3 % 5.5-11.7 N EOSINOPHIL % (test code = EO%) 5.3 % 0.9-2.9 H BASOPHIL % (test code = BA%) 1.1 % 0.2-1.0 H NUCLEATED RBC % (test code = NRBC%) 0.0 % 0-1.0 N NEUTROPHIL # (test code = NT#) 2.91 x10 3/uL 2.2-4.8 N IMMATURE GRANULOCYTE # (test code = IG#) 0.01 x10 3/uL 0-0.03 N LYMPHOCYTE # (test code = LY#) 1.59 x10 3/uL 1.3-2.9 N MONOCYTE # (test code = MO#) 0.62 x10 3/uL 0.3-0.8 N EOSINOPHIL # (test code = EO#) 0.29 x10 3/uL 0.0-0.2 H BASOPHIL # (test code = BA#) 0.06 x10 3/uL 0.0-0.1 N [id number] 20:37:00* Test Item Value Reference Range Interpretation Comme nts GLUBED (test code = GLUBED) 112 MG/DL 74-106 H [id number] 16:49:00* Test Item Value Reference Range Interpretation Comme nts GLUBED (test code = GLUBED) 130 MG/DL 74-106 H [id number] 12:13:00* Test Item Value Reference Range Interpretation Comme nts GLUBED (test code = GLUBED) 108 MG/DL 74-106 H SED [id number] 05:29:00* Test Item Value Reference Range Interpretation Comme nts SED RATE (test code = SEDW) 40 mm/hr 0-20 H VANCOMYCIN [id number] 05:11:00* Test Item Value Reference Range Interpretation Comme nts VANCOMYCIN PEAK (test code = VANCP) 20.6 ug/mL 20.0-26.0 N LACTIC [id number] 04:56:00* Test Item Value Reference Range Interpretation Comme nts LACTIC ACID (test code = LACT) 0.90 mmol/L 0.50-1.99 N COMPREHENSIVE METABOLIC [id number] 04:56:00* Test Item Value Reference Range Interpretation Comme nts SODIUM (test code = NA) 143 mmol/L 136-145 N POTASSIUM (test code = K) 3.1 mmol/L 3.5-5.1 L CHLORIDE (test code = CL) 104 mmol/L 98-107 N CARBON DIOXIDE (test code = CO2) 29.0 mmol/L 20.0-31.0 N ANION GAP (test code = GAP) 13 mmol/L 10-20 N GLUCOSE (test code = GLU) 69 mg/dL 74-106 L BLOOD UREA NITROGEN (test code = BUN) 7 mg/dL 9-23 L GLOMERULAR FILTRATION RATE (test code = GFR) 89 mL/min The Glomerular Filtration Rate is a calculated parameterbased on serum Creatinine, patient age and sex. GFR valuesless than 60 mL/min/1.73 square meters are indicative ofChronic Kidney Disease. Values less than 15 mL/min/1.73square meters indicate Kidney failure. The calculation forGFR is based on the CKD-EPI (202) calculation. This formulais race indifferent and is the recommended formula for GFRby the National Kidney Foundation for Adults.The GFR will not calculate if the sex is unknown or if thepatient's age is <18 years. CREATININE (test code = CREAT) 0.89 mg/dL 0.55-1.30 N TOTAL PROTEIN (test code = PROT) 6.0 g/dL 5.7-8.2 N ALBUMIN (test code = ALB) 3.2 g/dL 3.4-5.0 L CALCIUM (test code = CA) 8.3 mg/dL 8.7-10.4 L BILIRUBIN TOTAL (test code = BILT) 0.90 mg/dL 0.20-1.10 N BILIRUBIN CONJUGATED (test code = BILCON) 0.5 mg/dL 0.1-0.3 H "A positive bias may occur for patients taking Eltrombopag(a bone marrow stimulant used to treat thrombocytopenia andaplastic anemia)." CONJUGATE D BILIRUBIN IS THE REPLACEMENT ASSAY FOR DIRECTBILIRUBIN. BILIRUBIN UNCONJUGATED (test code = BILUNC) 0.40 mg/dL 0-1.1 N SGOT/AST (test code = AST) 36 U/L 0-33 H SGPT/ALT (test code = ALT) 17 U/L 10-49 N ALKALINE PHOSPHATASE (test code = ALKP) 82 U/L 46-116 N INDEX HEMOLYSIS (test code = HEMINDEX) 1 Index/DL 0-3 N IS THE SAMPLE HEMOLYZED?:NHEMOLYSIS GRADE:1 0 - Normal+1 - Suspect Hemolysis+2 - Severe Hemolysis+3 - Grossly Hemolyzed "HEMOLYZED SPECIMEN MUST BE INTERPRETED WITH CAUTION SOMEOR ALL TEST RESULTS MAY BE INACCURATE."PLEASE CORRELATE CLINICALLY. C REACTIVE [id number] 04:56:00* Test Item Value Reference Range Interpretation Comme nts C REACTIVE PROTEIN (test code = CRP) 38 mg/dL 0-5 H [id number] 04:47:00* Test Item Value Reference Range Interpretation Comme nts D-DIMER (test code = DDIMER) 1154 ng/mLFEU 0-500 HH THE DDIMER METHO D IS USED IN THE EXCLUSION OF DEEP VEINTHROMBOSIS AND/OR PULMONARY EMBOLISM AND THE CLINICAL CUT-OFF VALUE FOR EXCLUSION (500 NG/ML FEU) OF THESE CONDITIONSIS VALIDATED BY THE RIM TURNING MACHINE OPERATOR OF THE METHOD. A NEGATIVE DDIMER RESULT WHEN COMBINED WITH A CLINICALASSESSMENT OF LOW PRETEST PROBABILITY HAS BEEN SHOWN TO HAVEA HIGH NEGATIVE PREDICTIVE VALUE OF DVT OR PE. D-DIMER VALUES >500 ng/mL ARE NOT DIAGNOSTIC FOR DVT,PEOR DIC WITHOUT OTHER CONFIRMATORY TESTS AND APPROPRIATECLINICAL EVALUATIONS. HGBA1C - GLYCOSYLATED [id number] 04:44:00* Test Item Value Reference Range Interpretation Comme nts GLYCOSYLATED HEMOGLOBIN (HA1C) (test code = GLYHGB) 8.50 % 0.0-5.6 H Current nisha delines recommend a treatment goal of <7% fordiabetic patients. A1c may be overestimated in diabeticpatients exhibiting poor control and who are alsoheterozygous or homozygous for HgbS or HgbC. Totalglycohemoglobin is a better indicator of diabetic control inpatients with these hemoglobin variants. CBC W/AUTO [id number] 04:22:00* Test Item Value Reference Range Interpretation Comme nts WHITE BLOOD CELL (test code = WBC) 5.1 x10 3/uL 5.0-12.0 N RED BLOOD CELL (test code = RBC) 3.95 x10 6/uL 4.70-6.10 L HEMOGLOBIN (test code = HGB) 11.9 g/dL 14.0-18.0 L HEMATOCRIT (test code = HCT) 35.3 % 37.0-49.0 L MEAN CELL VOLUME (test code = MCV) 89 fL 80-94 N MEAN CELL HGB (test code = MCH) 30.1 pg 27-31 N MEAN CELL HGB CONCENTRATION (test code = MCHC) 33.7 g/dL 33-37 N RED CELL DISTRIBUTION WIDTH (test code = RDW) 13.5 % 11.5-15.5 N PLATELET COUNT (test code = PLT) 133 x10 3/uL 130-400 N MEAN PLATELET VOLUME (test c ode = MPV) 9.3 fL 9.4-16.4 L NEUTROPHIL % (test code = NT%) 56.2 % 43-65 N IMMATURE GRANULOCYTE % (test code = IG%) 0.4 % 0.0-2.0 N LYMPHOCYTE % (test code = LY%) 26.0 % 20.5-45.5 N MONOCYTE % (test code = MO%) 10.7 % 5.5-11.7 N EOSINOPHIL % (test code = EO%) 5.7 % 0.9-2.9 H BASOPHIL % (test code = BA%) 1.0 % 0.2-1.0 N NUCLEATED RBC % (test code = NRBC%) 0.0 % 0-1.0 N NEUTROPHIL # (test code = NT#) 2.85 x10 3/uL 2.2-4.8 N IMMATURE GRANULOCYTE # (test code = IG#) 0.02 x10 3/uL 0-0.03 N LYMPHOCYTE # (test code = LY#) 1.32 x10 3/uL 1.3-2.9 N MONOCYTE # (test code = MO#) 0.54 x10 3/uL 0.3-0.8 N EOSINOPHIL # (test code = EO#) 0.29 x10 3/uL 0.0-0.2 H BASOPHIL # (test code = BA#) 0.05 x10 3/uL 0.0-0.1 N [id number] 21:37:00* Test Item Value Reference Range Interpretation Comme nts GLUBED (test code = GLUBED) 106 MG/DL 74-106 N UA RFLX MICR CULT IF [id number] 18:30:00* Test Item Value Reference Range Interpretation Comme nts UA COLOR (test code = COLU) Light-Yellow Yellow UA APPEARANCE (test code = APPU) Clear Clear UA GLUCOSE DIPSTICK (test code = DGLUU) Normal Negative UA BILIRUBIN DIPSTICK (test code = BILU) Negative Negative UA KETONE DIPSTICK (test code = KETU) Negative mg/dL Negative UA SPECIFIC GRAVITY (test code = SGU) 1.012 <1.030 UA BLOOD DIPSTICK (test code = BUTCH) Negative Negative UA PH DIPSTICK (test code = ECHO) 7.0 5.0-8.0 UA PROTEIN DIPSTICK (test code = PROU) NEGATIVE mg/dL Negative UA UROBILINOGEN DIPSTICK (test code = URO) 2 mg/dL Negative UA NITRITE DIPSTICK (test code = SHANDA) Negative Negative UA LEUKOCYTE ESTERASE DIPSTICK (test code = LEUU) NEGATIVE Negative UA WBC (test code = WBCUR) 0-3 /HPF See_Comment <10 WBC/HPF = PYURIA ABSENT URINE CULTURE NOT INDICATED [Automated message] The system which generated this result transmitted reference range: <4-5. The reference range was not used to interpret this result as normal/abnormal. UA RBC (test code = RBCU) 0-3 /HPF See_Comment [Automated message] The system which generated this result transmitted reference range: <4-5. The reference range was not used to interpret this result as normal/abnormal. UA BACTERIA (test code = BACU) None /HPF None-Rare UA SQUAMOUS CELLS (test code = SQU) 0-5 (RARE) /HPF See_Comment [Automated message] The system which generated this result transmitted reference range: 0-5 (RARE). The reference range was not used to interpret this result as normal/abnormal. UA MUCUS (test code = MUCU) Rare /LPF See_Comment [Automated message] The system which generated this result transmitted reference range: <Rare. The reference range was not used to interpret this result as normal/abnormal. Indication for culture: RiskForSepsis-no oth srcSOURCE OF URINE: CLEAN CATCH [id number] 17:14:00* Test Item Value Reference Range Interpretation Comme nts GLUBED (test code = GLUBED) 87 MG/DL 74-106 N [id number] 11:36:00* Test Item Value Reference Range Interpretation Comme nts GLUBED (test code = GLUBED) 105 MG/DL 74-106 N [id number] 09:00:00* Test Item Value Reference Range Interpretation Comme nts GLUBED (test code = GLUBED) 173 MG/DL 74-106 H [id number] 08:04:00* Test Item Value Reference Range Interpretation Comme nts GLUBED (test code = GLUBED) 60 MG/DL 74-106 L BASIC METABOLIC [id number] 05:47:00* Test Item Value Reference Range Interpretation Comme nts SODIUM (test code = NA) 141 mmol/L 136-145 N POTASSIUM (test code = K) 3.2 mmol/L 3.5-5.1 L CHLORIDE (test code = CL) 104 mmol/L 98-107 N CARBON DIOXIDE (test code = CO2) 31.0 mmol/L 20.0-31.0 N ANION GAP (test code = GAP) 9 mmol/L 10-20 L GLUCOSE (test code = GLU) 68 mg/dL 74-106 L BLOOD UREA NITROGEN (test code = BUN) 12 mg/dL 9-23 N GLOMERULAR FILTRATION RATE (test code = GFR) 69 mL/min The Glomerular Filtration Rate is a calculated parameterbased on serum Creatinine, patient age and sex. GFR valuesless than 60 mL/min/1.73 square meters are indicative ofChronic Kidney Disease. Values less than 15 mL/min/1.73square meters indicate Kidney failure. The calculation forGFR is based on the CKD-EPI (202) calculation. This formulais race indifferent and is the recommended formula for GFRby the National Kidney Foundation for Adults.The GFR will not calculate if the sex is unknown or if thepatient's age is <18 years. CREATININE (test code = CREAT) 1.11 mg/dL 0.55-1.30 N CALCIUM (test code = CA) 9.2 mg/dL 8.7-10.4 N INDEX HEMOLYSIS (test code = HEMINDEX) 1 Index/DL 0-3 N IS THE SAMPLE HEMOLYZED?:NHEMOLYSIS GRADE:1 0 - Normal+1 - Suspect Hemolysis+2 - Severe Hemolysis+3 - Grossly Hemolyzed "HEMOLYZED SPECIMEN MUST BE INTERPRETED WITH CAUTION SOMEOR ALL TEST RESULTS MAY BE INACCURATE."PLEASE CORRELATE CLINICALLY. CBC W/AUTO [id number] 05:14:00* Test Item Value Reference Range Interpretation Comme nts WHITE BLOOD CELL (test code = WBC) 7.3 x10 3/uL 5.0-12.0 N RED BLOOD CELL (test code = RBC) 3.74 x10 6/uL 4.70-6.10 L HEMOGLOBIN (test code = HGB) 11.4 g/dL 14.0-18.0 L HEMATOCRIT (test code = HCT) 33.7 % 37.0-49.0 L MEAN CELL VOLUME (test code = MCV) 90 fL 80-94 N MEAN CELL HGB (test code = MCH) 30.5 pg 27-31 N MEAN CELL HGB CONCENTRATION (test code = MCHC) 33.8 g/dL 33-37 N RED CELL DISTRIBUTION WIDTH (test code = RDW) 13.5 % 11.5-15.5 N PLATELET COUNT (test code = PLT) 142 x10 3/uL 130-400 N MEAN PLATELET VOLUME (test c ode = MPV) 9.4 fL 9.4-16.4 N NEUTROPHIL % (test code = NT%) 58.5 % 43-65 N IMMATURE GRANULOCYTE % (test code = IG%) 0.3 % 0.0-2.0 N LYMPHOCYTE % (test code = LY%) 25.7 % 20.5-45.5 N MONOCYTE % (test code = MO%) 11.9 % 5.5-11.7 H EOSINOPHIL % (test code = EO%) 2.6 % 0.9-2.9 N BASOPHIL % (test code = BA%) 1.0 % 0.2-1.0 N NUCLEATED RBC % (test code = NRBC%) 0.0 % 0-1.0 N NEUTROPHIL # (test code = NT#) 4.27 x10 3/uL 2.2-4.8 N IMMATURE GRANULOCYTE # (test code = IG#) 0.02 x10 3/uL 0-0.03 N LYMPHOCYTE # (test code = LY#) 1.87 x10 3/uL 1.3-2.9 N MONOCYTE # (test code = MO#) 0.87 x10 3/uL 0.3-0.8 H EOSINOPHIL # (test code = EO#) 0.19 x10 3/uL 0.0-0.2 N BASOPHIL # (test code = BA#) 0.07 x10 3/uL 0.0-0.1 N [id number] 17:23:00* Test Item Value Reference Range Interpretation Comme nts SURGICAL (test code = SR) RUN DATE: 08/10/24 [address] PAGE 1 RUN TIME: 1723 Specimen Inquiry RUN USER: INTERFACE PATIENT: SEYMOUR SNOW LOC: [facility]LE[facility] U #: [id number] AGE/SX: 74/M ROOM: [place] [id number]/31/24REG DR: Vanessa Nur MD : 46 BED: A DIS: 08/08/24 STATUS: DIS IN TLOC: SPEC #: [id number] RECD: 08/09/24 STATUS: NOEL CURRY #: [id number] SALLY: 08/06/[address] [facility] [address]: Sonam Swanson DPM ENTERED: 08/09/24 SP TYPE: SURGICAL OTHR DR: Self Referred Seth Lni MD, Roberto DPM Pirzada, Zarin MD Rizvi, Khulood MDORDERED: [id number], [id number], ANATOMIC SPEC HISTOLOGY: TISSUE ID BLK PCS DALE LEV / PROCEDURE DISPOSITION ____ ___ ___ ___ ___ JOHN PAUL A 3 3 3 TISSUES: A. HALLUX -BIG TOE - RIGHT FINAL DIAGNOSIS GREAT TOE, RIGHT, AMPUTATION:- Mild chronic active osteomyelitis- Soft tissue with reactive changes, chronic inflammation, and granulation tissue- Resection margins: histologically viable skin and soft tissue GROSS DESCRIPTION In formalin labeled with the patient's name, medical record number and "right great toe" goldy digit which has been disarticulated at the joint measuring 7.5 cm in length and 4.6 cmfrom medial to lateral. The specimen is covered by purple-bautista, ecchymotic, hyperkeratoticskin. No distinct lesions or ulcers are identified. The nail is absent. The resectionmargin appears viable. Section code: A1, parallel soft tissue resection margin; A2-A3, cross sections of digitfor decalcification.SS/DB/sm MICROSCOPIC DESCRIPTION Unless otherwise noted, the technical component is performed at [facility], [address], [place] [address]. The diagnosis is based uponmicroscopic examination of slides cut from paraffin-embedded blocks of tissue which hasbeen fixed in 10% neutral buffered formalin. CONTINUED ON NEXT PAGE RUN DATE: 08/10/24 [facility] PAGE 2 RUN TIME: 1723 Specimen Inquiry RUN USER: INTERFACE SPEC #: [id number] PATIENT: SEYMOUR SNOW #[id number] (Continued) CLINICAL INFORMATION RIGHT FOOT OSTEOMYELITIS Signed SIGNATURE ON FILE Opal Altamirano MD 08/10/24 1723 END OF REPORT LACTIC [id number] 14:24:00* Test Item Value Reference Range Interpretation Comme nts LACTIC ACID (test code = LACT) 1.50 mmol/L 0.50-1.99 N BASIC METABOLIC [id number] 14:24:00* Test Item Value Reference Range Interpretation Comme nts SODIUM (test code = NA) 138 mmol/L 136-145 N POTASSIUM (test code = K) 3.5 mmol/L 3.5-5.1 N CHLORIDE (test code = CL) 101 mmol/L 98-107 N CARBON DIOXIDE (test code = CO2) 32.0 mmol/L 20.0-31.0 H ANION GAP (test code = GAP) 9 mmol/L 10-20 L GLUCOSE (test code = GLU) 133 mg/dL 74-106 H BLOOD UREA NITROGEN (test code = BUN) 9 mg/dL 9-23 N GLOMERULAR FILTRATION RATE (test code = GFR) 65 mL/min The Glomerular Filtration Rate is a calculated parameterbased on serum Creatinine, patient age and sex. GFR valuesless than 60 mL/min/1.73 square meters are indicative ofChronic Kidney Disease. Values less than 15 mL/min/1.73square meters indicate Kidney failure. The calculation forGFR is based on the CKD-EPI (202) calculation. This formulais race indifferent and is the recommended formula for GFRby the National Kidney Foundation for Adults.The GFR will not calculate if the sex is unknown or if thepatient's age is <18 years. CREATININE (test code = CREAT) 1.16 mg/dL 0.55-1.30 N CALCIUM (test code = CA) 9.6 mg/dL 8.7-10.4 N INDEX HEMOLYSIS (test code = HEMINDEX) 1 Index/DL 0-3 N IS THE SAMPLE HEMOLYZED?:NHEMOLYSIS GRADE:0 0 - Normal+1 - Suspect Hemolysis+2 - Severe Hemolysis+3 - Grossly Hemolyzed "HEMOLYZED SPECIMEN MUST BE INTERPRETED WITH CAUTION SOMEOR ALL TEST RESULTS MAY BE INACCURATE."PLEASE CORRELATE CLINICALLY. LIVER FUNCTION [id number] 14:24:00* Test Item Value Reference Range Interpretation Comme nts TOTAL PROTEIN (test code = PROT) 6.9 g/dL 5.7-8.2 N ALBUMIN (test code = ALB) 3.8 g/dL 3.4-5.0 N BILIRUBIN TOTAL (test code = BILT) 1.30 mg/dL 0.20-1.10 H BILIRUBIN CONJUGATED (test code = BILCON) 0.6 mg/dL 0.1-0.3 H "A positive bias may occur for patients taking Eltrombopag(a bone marrow stimulant used to treat thrombocytopenia andaplastic anemia)." CONJUGATE D BILIRUBIN IS THE REPLACEMENT ASSAY FOR DIRECTBILIRUBIN. BILIRUBIN UNCONJUGATED (test code = BILUNC) 0.70 mg/dL 0-1.1 N SGOT/AST (test code = AST) 42 U/L 0-33 H SGPT/ALT (test code = ALT) 21 U/L 10-49 N ALKALINE PHOSPHATASE (test code = ALKP) 100 U/L 46-116 N [id number] 14:24:00* Test Item Value Reference Range Interpretation Comme nts LIPASE (test code = LIP) 24 U/L 12-53 N NT PRO-BRAIN NATRIURETIC [id number] 14:24:00* Test Item Value Reference Range Interpretation Comme nts NT PRO-BRAIN NATRIURETIC PEPTI (test code = PROBNP) 267 pg/mL 0-299 N ~~~~~~~~~~~ ~~~~~~~~~~~ ~~~~~~~~~~~~~~~~~~~~~~ ~~~~~~~~~~~~~~~~NT PRO-BNP IS THE REPLACEMENT ASSAY FOR BNP.~~~~~~~~~~~~~~~~~~ ~~~~~~~~~~~~~~~~~~~~~~ ~~~~~~~~~~~~~~~~~~~~PA TIENTS WITH SUSPECTED ACUTE CONGESTIVE HEART FAILURE:POSITIVE:<50 yrs old: >450 pg/mL50-75 yrs old: >900 pg/mL>75 yrs old: >1800 pg/mLINDETERMINATE:<50 yrs old: >=300-<=450 pg/mL50-75 yrs old:>=300-<=900 pg/mL>75 yrs old:>=300-<=1800 pg/mL A positive bias may occur on patients taking BIOTINsupplements. TROP-I HIGH [id number] 14:24:00* Test Item Value Reference Range Interpretation Comme [facility] TROP-I HIGH SENSITIVITY (test code = TROPIHS) 4.88 ng/L 0.00-54.00 N 99th Percentile Upper Reference Limit (URL):Females: 34 ng/LMales: 54 ng/L In order to distinguish acute elevations of high sensitivitytroponin from other clinical conditions, the FourthUniversal Definition of Myocardial Infarction stressesclinical assessment and the demonstration of a rise and/orfall in serial troponin results above the URL. These results were obtained using Siemens AtellKrillion IM TnIHreagent. Results from different methodologies should not becompared to one another as quantitative results and URLs mayvary by method. PROTHROMBIN [id number] 14:20:00* Test Item Value Reference Range Interpretation Comme [facility] PROTHROMBIN TIME PATIENT (test code = PTP) 16.3 SECONDS 9.4-12.5 H INTERNATIONAL NORMAL RATIO (test code = INR) 1.4 The INR is to be used only for monitoring ORAL ANTICOAGULANTTHERAPY. Indication INR Value1. Prophylaxis/treatment of: Venous Thrombosis, Pulmonary Embolism 2.0 - 3.02. Prevention of systemic embolism from: Tissue heart valves 2.0 - 3.0 Acute myocardial infarction (to present systemic embolism)* 2.0 - 3.0 Valvular heart disease 2.0 - 3.0 Atrial fibrillation 2.0 - 3.03. Mechanical prosthetic valves (high risk) 2.5 - 3.5 * If oral anticoagulant therapy is elected to preventrecurrent myocardial infarction, an INR of 2.5-3.5 isrecommended, consistent with Food and Drug Administrationrecommen dations. THROMBOPLASTIN TIME [id number] 14:20:00* Test Item Value Reference Range Interpretation Comme [facility] THROMBOPLASTIN TIME PARTIAL (test code = PTT) 36.0 SECONDS 23.4-37.0 N Therapeutic Rang e for Heparin EFFECTIVE 11/25/12 Heparin IU/mL aPTT Seconds0.3 64.30.7 88.8 CBC W/AUTO [id number] 14:00:00* Test Item Value Reference Range Interpretation Comme [facility] WHITE BLOOD CELL (test code = WBC) 7.5 x10 3/uL 5.0-12.0 N RED BLOOD CELL (test code = RBC) 4.30 x10 6/uL 4.70-6.10 L HEMOGLOBIN (test code = HGB) 13.2 g/dL 14.0-18.0 L HEMATOCRIT (test code = HCT) 38.6 % 37.0-49.0 N MEAN CELL VOLUME (test code = MCV) 90 fL 80-94 N MEAN CELL HGB (test code = MCH) 30.7 pg 27-31 N MEAN CELL HGB CONCENTRATION (test code = MCHC) 34.2 g/dL 33-37 N RED CELL DISTRIBUTION WIDTH (test code = RDW) 13.3 % 11.5-15.5 N PLATELET COUNT (test code = PLT) 183 x10 3/uL 130-400 N MEAN PLATELET VOLUME (test c ode = MPV) 9.1 fL 9.4-16.4 L NEUTROPHIL % (test code = NT%) 64.9 % 43-65 N IMMATURE GRANULOCYTE % (test code = IG%) 0.3 % 0.0-2.0 N LYMPHOCYTE % (test code = LY%) 20.1 % 20.5-45.5 L MONOCYTE % (test code = MO%) 11.1 % 5.5-11.7 N EOSINOPHIL % (test code = EO%) 2.4 % 0.9-2.9 N BASOPHIL % (test code = BA%) 1.2 % 0.2-1.0 H NUCLEATED RBC % (test code = NRBC%) 0.0 % 0-1.0 N NEUTROPHIL # (test code = NT#) 4.84 x10 3/uL 2.2-4.8 H IMMATURE GRANULOCYTE # (test code = IG#) 0.02 x10 3/uL 0-0.03 N LYMPHOCYTE # (test code = LY#) 1.50 x10 3/uL 1.3-2.9 N MONOCYTE # (test code = MO#) 0.83 x10 3/uL 0.3-0.8 H EOSINOPHIL # (test code = EO#) 0.18 x10 3/uL 0.0-0.2 N BASOPHIL # (test code = BA#) 0.09 x10 3/uL 0.0-0.1 N [id number] 16:10:00* Test Item Value Reference Range Interpretation Comme nts GLUBED (test code = GLUBED) 154 MG/DL 74-106 H [id number] 11:49:00* Test Item Value Reference Range Interpretation Comme nts GLUBED (test code = GLUBED) 191 MG/DL 74-106 H [id number] 06:39:00* Test Item Value Reference Range Interpretation Comme nts GLUBED (test code = GLUBED) 116 MG/DL 74-106 H COMPREHENSIVE METABOLIC [id number] 05:10:00* Test Item Value Reference Range Interpretation Comme nts SODIUM (test code = NA) 138 mmol/L 136-145 N POTASSIUM (test code = K) 3.6 mmol/L 3.5-5.1 N CHLORIDE (test code = CL) 102 mmol/L 98-107 N CARBON DIOXIDE (test code = CO2) 28.0 mmol/L 20.0-31.0 N ANION GAP (test code = GAP) 12 mmol/L 10-20 N GLUCOSE (test code = GLU) 109 mg/dL 74-106 H BLOOD UREA NITROGEN (test code = BUN) 10 mg/dL 9-23 N GLOMERULAR FILTRATION RATE (test code = GFR) 91 mL/min The Glomerular Filtration Rate is a calculated parameterbased on serum Creatinine, patient age and sex. GFR valuesless than 60 mL/min/1.73 square meters are indicative ofChronic Kidney Disease. Values less than 15 mL/min/1.73square meters indicate Kidney failure. The calculation forGFR is based on the CKD-EPI (2020) calculation. This formulais race indifferent and is the recommended formula for GFRby the National Kidney Foundation for Adults.The GFR will not calculate if the sex is unknown or if thepatient's age is <18 years. CREATININE (test code = CREAT) 0.83 mg/dL 0.55-1.30 N TOTAL PROTEIN (test code = PROT) 5.8 g/dL 5.7-8.2 N ALBUMIN (test code = ALB) 3.2 g/dL 3.4-5.0 L CALCIUM (test code = CA) 8.2 mg/dL 8.7-10.4 L BILIRUBIN TOTAL (test code = BILT) 1.20 mg/dL 0.20-1.10 H BILIRUBIN CONJUGATED (test code = BILCON) 0.6 mg/dL 0.1-0.3 H "A positive bias may occur for patients taking Eltrombopag(a bone marrow stimulant used to treat thrombocytopenia andaplastic anemia)." CONJUGATE D BILIRUBIN IS THE REPLACEMENT ASSAY FOR DIRECTBILIRUBIN. BILIRUBIN UNCONJUGATED (test code = BILUNC) 0.60 mg/dL 0-1.1 N SGOT/AST (test code = AST) 33 U/L 0-33 N SGPT/ALT (test code = ALT) 16 U/L 10-49 N ALKALINE PHOSPHATASE (test code = ALKP) 78 U/L 46-116 N INDEX HEMOLYSIS (test code = HEMINDEX) 1 Index/DL 0-3 N IS THE SAMPLE HEMOLYZED?:NHEMOLYSIS GRADE:1 0 - Normal+1 - Suspect Hemolysis+2 - Severe Hemolysis+3 - Grossly Hemolyzed "HEMOLYZED SPECIMEN MUST BE INTERPRETED WITH CAUTION SOMEOR ALL TEST RESULTS MAY BE INACCURATE."PLEASE CORRELATE CLINICALLY. [id number] 05:10:00* Test Item Value Reference Range Interpretation Comme nts MAGNESIUM (test code = MAG) 1.1 mg/dL 1.6-2.6 L CBC W/AUTO [id number] 04:50:00* Test Item Value Reference Range Interpretation Comme nts WHITE BLOOD CELL (test code = WBC) 6.6 x10 3/uL 5.0-12.0 N RED BLOOD CELL (test code = RBC) 3.75 x10 6/uL 4.70-6.10 L HEMOGLOBIN (test code = HGB) 11.4 g/dL 14.0-18.0 L HEMATOCRIT (test code = HCT) 33.9 % 37.0-49.0 L MEAN CELL VOLUME (test code = MCV) 90 fL 80-94 N MEAN CELL HGB (test code = MCH) 30.4 pg 27-31 N MEAN CELL HGB CONCENTRATION (test code = MCHC) 33.6 g/dL 33-37 N RED CELL DISTRIBUTION WIDTH (test code = RDW) 13.0 % 11.5-15.5 N PLATELET COUNT (test code = PLT) 117 x10 3/uL 130-400 L MEAN PLATELET VOLUME (test c ode = MPV) 9.5 fL 9.4-16.4 N NEUTROPHIL % (test code = NT%) 60.6 % 43-65 N IMMATURE GRANULOCYTE % (test code = IG%) 0.3 % 0.0-2.0 N LYMPHOCYTE % (test code = LY%) 21.3 % 20.5-45.5 N MONOCYTE % (test code = MO%) 14.6 % 5.5-11.7 H EOSINOPHIL % (test code = EO%) 2.4 % 0.9-2.9 N BASOPHIL % (test code = BA%) 0.8 % 0.2-1.0 N NUCLEATED RBC % (test code = NRBC%) 0.0 % 0-1.0 N NEUTROPHIL # (test code = NT#) 3.98 x10 3/uL 2.2-4.8 N IMMATURE GRANULOCYTE # (test code = IG#) 0.02 x10 3/uL 0-0.03 N LYMPHOCYTE # (test code = LY#) 1.40 x10 3/uL 1.3-2.9 N MONOCYTE # (test code = MO#) 0.96 x10 3/uL 0.3-0.8 H EOSINOPHIL # (test code = EO#) 0.16 x10 3/uL 0.0-0.2 N BASOPHIL # (test code = BA#) 0.05 x10 3/uL 0.0-0.1 N VANCOMYCIN [id number] 04:43:00* Test Item Value Reference Range Interpretation Comme nts VANCOMYCIN PEAK (test code = VANCP) 19.7 ug/mL 20.0-26.0 L [id number] 01:28:00* Test Item Value Reference Range Interpretation Comme nts GLUBED (test code = GLUBED) 120 MG/DL 74-106 H [id number] 20:18:00* Test Item Value Reference Range Interpretation Comme nts GLUBED (test code = GLUBED) 146 MG/DL 74-106 H COVID 19 Asymptomatic IH [id number] 16:25:00* Test Item Value Reference Range Interpretation Comme nts COVID 19 Asymptomatic IH AG (test code = COVNONPUIAG) NEGATIVE Negative [id number] 16:04:00* Test Item Value Reference Range Interpretation Comme nts GLUBED (test code = GLUBED) 142 MG/DL 74-106 H [id number] 11:58:00* Test Item Value Reference Range Interpretation Comme nts GLUBED (test code = GLUBED) 136 MG/DL 74-106 H [id number] 06:13:00* Test Item Value Reference Range Interpretation Comme nts GLUBED (test code = GLUBED) 96 MG/DL 74-106 N COMPREHENSIVE METABOLIC [id number] 04:45:00* Test Item Value Reference Range Interpretation Comme nts SODIUM (test code = NA) 140 mmol/L 136-145 N POTASSIUM (test code = K) 3.3 mmol/L 3.5-5.1 L CHLORIDE (test code = CL) 104 mmol/L 98-107 N CARBON DIOXIDE (test code = CO2) 29.0 mmol/L 20.0-31.0 N ANION GAP (test code = GAP) 10 mmol/L 10-20 N GLUCOSE (test code = GLU) 91 mg/dL 74-106 N BLOOD UREA NITROGEN (test code = BUN) 8 mg/dL 9-23 L GLOMERULAR FILTRATION RATE (test code = GFR) 91 mL/min The Glomerular Filtration Rate is a calculated parameterbased on serum Creatinine, patient age and sex. GFR valuesless than 60 mL/min/1.73 square meters are indicative ofChronic Kidney Disease. Values less than 15 mL/min/1.73square meters indicate Kidney failure. The calculation forGFR is based on the CKD-EPI (202) calculation. This formulais race indifferent and is the recommended formula for GFRby the National Kidney Foundation for Adults.The GFR will not calculate if the sex is unknown or if thepatient's age is <18 years. CREATININE (test code = CREAT) 0.81 mg/dL 0.55-1.30 N TOTAL PROTEIN (test code = PROT) 5.9 g/dL 5.7-8.2 N ALBUMIN (test code = ALB) 3.2 g/dL 3.4-5.0 L CALCIUM (test code = CA) 8.4 mg/dL 8.7-10.4 L BILIRUBIN TOTAL (test code = BILT) 1.10 mg/dL 0.20-1.10 N BILIRUBIN CONJUGATED (test code = BILCON) 0.5 mg/dL 0.1-0.3 H "A positive bias may occur for patients taking Eltrombopag(a bone marrow stimulant used to treat thrombocytopenia andaplastic anemia)." CONJUGATE D BILIRUBIN IS THE REPLACEMENT ASSAY FOR DIRECTBILIRUBIN. BILIRUBIN UNCONJUGATED (test code = BILUNC) 0.60 mg/dL 0-1.1 N SGOT/AST (test code = AST) 32 U/L 0-33 N SGPT/ALT (test code = ALT) 16 U/L 10-49 N ALKALINE PHOSPHATASE (test code = ALKP) 75 U/L 46-116 N INDEX HEMOLYSIS (test code = HEMINDEX) 0 Index/DL 0-3 N [id number] 04:45:00* Test Item Value Reference Range Interpretation Comme nts MAGNESIUM (test code = MAG) 1.4 mg/dL 1.6-2.6 L CBC W/AUTO [id number] 04:40:00* Test Item Value Reference Range Interpretation Comme nts WHITE BLOOD CELL (test code = WBC) 4.5 x10 3/uL 5.0-12.0 L RED BLOOD CELL (test code = RBC) 3.90 x10 6/uL 4.70-6.10 L HEMOGLOBIN (test code = HGB) 11.8 g/dL 14.0-18.0 L HEMATOCRIT (test code = HCT) 35.5 % 37.0-49.0 L MEAN CELL VOLUME (test code = MCV) 91 fL 80-94 N MEAN CELL HGB (test code = MCH) 30.3 pg 27-31 N MEAN CELL HGB CONCENTRATION (test code = MCHC) 33.2 g/dL 33-37 N RED CELL DISTRIBUTION WIDTH (test code = RDW) 13.4 % 11.5-15.5 N PLATELET COUNT (test code = PLT) 133 x10 3/uL 130-400 N MEAN PLATELET VOLUME (test c ode = MPV) 9.8 fL 9.4-16.4 N NEUTROPHIL % (test code = NT%) 53.9 % 43-65 N IMMATURE GRANULOCYTE % (test code = IG%) 0.2 % 0.0-2.0 N LYMPHOCYTE % (test code = LY%) 29.0 % 20.5-45.5 N MONOCYTE % (test code = MO%) 12.2 % 5.5-11.7 H EOSINOPHIL % (test code = EO%) 4.0 % 0.9-2.9 H BASOPHIL % (test code = BA%) 0.7 % 0.2-1.0 N NUCLEATED RBC % (test code = NRBC%) 0.0 % 0-1.0 N NEUTROPHIL # (test code = NT#) 2.43 x10 3/uL 2.2-4.8 N IMMATURE GRANULOCYTE # (test code = IG#) 0.01 x10 3/uL 0-0.03 N LYMPHOCYTE # (test code = LY#) 1.31 x10 3/uL 1.3-2.9 N MONOCYTE # (test code = MO#) 0.55 x10 3/uL 0.3-0.8 N EOSINOPHIL # (test code = EO#) 0.18 x10 3/uL 0.0-0.2 N BASOPHIL # (test code = BA#) 0.03 x10 3/uL 0.0-0.1 N [id number] 03:52:00* Test Item Value Reference Range Interpretation Comme nts GLUBED (test code = GLUBED) 96 MG/DL 74-106 N [id number] 16:22:00* Test Item Value Reference Range Interpretation Comme nts GLUBED (test code = GLUBED) 106 MG/DL 74-106 N [id number] 11:39:00* Test Item Value Reference Range Interpretation Comme nts GLUBED (test code = GLUBED) 107 MG/DL 74-106 H COMPREHENSIVE METABOLIC [id number] 07:42:00* Test Item Value Reference Range Interpretation Comme nts SODIUM (test code = NA) 140 mmol/L 136-145 N POTASSIUM (test code = K) 3.1 mmol/L 3.5-5.1 L CHLORIDE (test code = CL) 104 mmol/L 98-107 N CARBON DIOXIDE (test code = CO2) 29.0 mmol/L 20.0-31.0 N ANION GAP (test code = GAP) 10 mmol/L 10-20 N GLUCOSE (test code = GLU) 103 mg/dL 74-106 N BLOOD UREA NITROGEN (test code = BUN) 7 mg/dL 9-23 L GLOMERULAR FILTRATION RATE (test code = GFR) 92 mL/min The Glomerular Filtration Rate is a calculated parameterbased on serum Creatinine, patient age and sex. GFR valuesless than 60 mL/min/1.73 square meters are indicative ofChronic Kidney Disease. Values less than 15 mL/min/1.73square meters indicate Kidney failure. The calculation forGFR is based on the CKD-EPI (2020) calculation. This formulais race indifferent and is the recommended formula for GFRby the National Kidney Foundation for Adults.The GFR will not calculate if the sex is unknown or if thepatient's age is <18 years. CREATININE (test code = CREAT) 0.78 mg/dL 0.55-1.30 N TOTAL PROTEIN (test code = PROT) 5.8 g/dL 5.7-8.2 N ALBUMIN (test code = ALB) 3.2 g/dL 3.4-5.0 L CALCIUM (test code = CA) 8.9 mg/dL 8.7-10.4 N BILIRUBIN TOTAL (test code = BILT) 0.90 mg/dL 0.20-1.10 N BILIRUBIN CONJUGATED (test code = BILCON) 0.4 mg/dL 0.1-0.3 H "A positive bias may occur for patients taking Eltrombopag(a bone marrow stimulant used to treat thrombocytopenia andaplastic anemia)." CONJUGATE D BILIRUBIN IS THE REPLACEMENT ASSAY FOR DIRECTBILIRUBIN. BILIRUBIN UNCONJUGATED (test code = BILUNC) 0.50 mg/dL 0-1.1 N SGOT/AST (test code = AST) 36 U/L 0-33 H SGPT/ALT (test code = ALT) 17 U/L 10-49 N ALKALINE PHOSPHATASE (test code = ALKP) 76 U/L 46-116 N INDEX HEMOLYSIS (test code = HEMINDEX) 0 Index/DL 0-3 N [id number] 07:42:00* Test Item Value Reference Range Interpretation Comme nts MAGNESIUM (test code = MAG) 1.2 mg/dL 1.6-2.6 L CBC W/AUTO [id number] 07:15:00* Test Item Value Reference Range Interpretation Comme nts WHITE BLOOD CELL (test code = WBC) 4.0 x10 3/uL 5.0-12.0 L RED BLOOD CELL (test code = RBC) 3.81 x10 6/uL 4.70-6.10 L HEMOGLOBIN (test code = HGB) 11.4 g/dL 14.0-18.0 L HEMATOCRIT (test code = HCT) 34.4 % 37.0-49.0 L MEAN CELL VOLUME (test code = MCV) 90 fL 80-94 N MEAN CELL HGB (test code = MCH) 29.9 pg 27-31 N MEAN CELL HGB CONCENTRATION (test code = MCHC) 33.1 g/dL 33-37 N RED CELL DISTRIBUTION WIDTH (test code = RDW) 13.2 % 11.5-15.5 N PLATELET COUNT (test code = PLT) 135 x10 3/uL 130-400 N MEAN PLATELET VOLUME (test c ode = MPV) 9.9 fL 9.4-16.4 N NEUTROPHIL % (test code = NT%) 49.6 % 43-65 N IMMATURE GRANULOCYTE % (test code = IG%) 0.2 % 0.0-2.0 N LYMPHOCYTE % (test code = LY%) 31.2 % 20.5-45.5 N MONOCYTE % (test code = MO%) 13.5 % 5.5-11.7 H EOSINOPHIL % (test code = EO%) 4.5 % 0.9-2.9 H BASOPHIL % (test code = BA%) 1.0 % 0.2-1.0 N NUCLEATED RBC % (test code = NRBC%) 0.0 % 0-1.0 N NEUTROPHIL # (test code = NT#) 1.99 x10 3/uL 2.2-4.8 L IMMATURE GRANULOCYTE # (test code = IG#) 0.01 x10 3/uL 0-0.03 N LYMPHOCYTE # (test code = LY#) 1.25 x10 3/uL 1.3-2.9 L MONOCYTE # (test code = MO#) 0.54 x10 3/uL 0.3-0.8 N EOSINOPHIL # (test code = EO#) 0.18 x10 3/uL 0.0-0.2 N BASOPHIL # (test code = BA#) 0.04 x10 3/uL 0.0-0.1 N [id number] 06:28:00* Test Item Value Reference Range Interpretation Comme nts GLUBED (test code = GLUBED) 99 MG/DL 74-106 N [id number] 00:52:00* Test Item Value Reference Range Interpretation Comme nts GLUBED (test code = GLUBED) 147 MG/DL 74-106 H [id number] 21:53:00* Test Item Value Reference Range Interpretation Comme nts GLUBED (test code = GLUBED) 145 MG/DL 74-106 H COMPREHENSIVE METABOLIC [id number] 19:10:00* Test Item Value Reference Range Interpretation Comme nts SODIUM (test code = NA) 139 mmol/L 136-145 N POTASSIUM (test code = K) 3.4 mmol/L 3.5-5.1 L CHLORIDE (test code = CL) 104 mmol/L 98-107 N CARBON DIOXIDE (test code = CO2) 24.0 mmol/L 20.0-31.0 N ANION GAP (test code = GAP) 14 mmol/L 10-20 N GLUCOSE (test code = GLU) 166 mg/dL 74-106 H BLOOD UREA NITROGEN (test code = BUN) 8 mg/dL 9-23 L GLOMERULAR FILTRATION RATE (test code = GFR) 89 mL/min The Glomerular Filtration Rate is a calculated parameterbased on serum Creatinine, patient age and sex. GFR valuesless than 60 mL/min/1.73 square meters are indicative ofChronic Kidney Disease. Values less than 15 mL/min/1.73square meters indicate Kidney failure. The calculation forGFR is based on the CKD-EPI (2020) calculation. This formulais race indifferent and is the recommended formula for GFRby the National Kidney Foundation for Adults.The GFR will not calculate if the sex is unknown or if thepatient's age is <18 years. CREATININE (test code = CREAT) 0.87 mg/dL 0.55-1.30 N TOTAL PROTEIN (test code = PROT) 5.8 g/dL 5.7-8.2 N ALBUMIN (test code = ALB) 3.2 g/dL 3.4-5.0 L CALCIUM (test code = CA) 8.5 mg/dL 8.7-10.4 L BILIRUBIN TOTAL (test code = BILT) 1.00 mg/dL 0.20-1.10 N BILIRUBIN CONJUGATED (test code = BILCON) 0.4 mg/dL 0.1-0.3 H "A positive bias may occur for patients taking Eltrombopag(a bone marrow stimulant used to treat thrombocytopenia andaplastic anemia)." CONJUGATE D BILIRUBIN IS THE REPLACEMENT ASSAY FOR DIRECTBILIRUBIN. BILIRUBIN UNCONJUGATED (test code = BILUNC) 0.60 mg/dL 0-1.1 N SGOT/AST (test code = AST) 32 U/L 0-33 N SGPT/ALT (test code = ALT) 17 U/L 10-49 N ALKALINE PHOSPHATASE (test code = ALKP) 74 U/L 46-116 N INDEX HEMOLYSIS (test code = HEMINDEX) 0 Index/DL 0-3 N PROTHROMBIN [id number] 18:58:00* Test Item Value Reference Range Interpretation Comme [facility] PROTHROMBIN TIME PATIENT (test code = PTP) 14.4 SECONDS 9.4-12.5 H INTERNATIONAL NORMAL RATIO (test code = INR) 1.3 The INR is to be used only for monitoring ORAL ANTICOAGULANTTHERAPY. Indication INR Value1. Prophylaxis/treatment of: Venous Thrombosis, Pulmonary Embolism 2.0 - 3.02. Prevention of systemic embolism from: Tissue heart valves 2.0 - 3.0 Acute myocardial infarction (to present systemic embolism)* 2.0 - 3.0 Valvular heart disease 2.0 - 3.0 Atrial fibrillation 2.0 - 3.03. Mechanical prosthetic valves (high risk) 2.5 - 3.5 * If oral anticoagulant therapy is elected to preventrecurrent myocardial infarction, an INR of 2.5-3.5 isrecommended, consistent with Food and Drug Administrationrecommen dations. THROMBOPLASTIN TIME [id number] 18:58:00* Test Item Value Reference Range Interpretation Comme [facility] THROMBOPLASTIN TIME PARTIAL (test code = PTT) 40.1 SECONDS 23.4-37.0 H Therapeutic Rang e for Heparin EFFECTIVE 11/25/12 Heparin IU/mL aPTT Seconds0.3 64.30.7 88.8 CBC W/AUTO [id number] 18:53:00* Test Item Value Reference Range Interpretation Comme nts WHITE BLOOD CELL (test code = WBC) 4.2 x10 3/uL 5.0-12.0 L RED BLOOD CELL (test code = RBC) 3.92 x10 6/uL 4.70-6.10 L HEMOGLOBIN (test code = HGB) 11.9 g/dL 14.0-18.0 L HEMATOCRIT (test code = HCT) 34.8 % 37.0-49.0 L MEAN CELL VOLUME (test code = MCV) 89 fL 80-94 N MEAN CELL HGB (test code = MCH) 30.4 pg 27-31 N MEAN CELL HGB CONCENTRATION (test code = MCHC) 34.2 g/dL 33-37 N RED CELL DISTRIBUTION WIDTH (test code = RDW) 13.2 % 11.5-15.5 N PLATELET COUNT (test code = PLT) 132 x10 3/uL 130-400 N MEAN PLATELET VOLUME (test c ode = MPV) 9.3 fL 9.4-16.4 L NEUTROPHIL % (test code = NT%) 53.6 % 43-65 N IMMATURE GRANULOCYTE % (test code = IG%) 0.2 % 0.0-2.0 N LYMPHOCYTE % (test code = LY%) 29.9 % 20.5-45.5 N MONOCYTE % (test code = MO%) 11.2 % 5.5-11.7 N EOSINOPHIL % (test code = EO%) 4.1 % 0.9-2.9 H BASOPHIL % (test code = BA%) 1.0 % 0.2-1.0 N NUCLEATED RBC % (test code = NRBC%) 0.0 % 0-1.0 N NEUTROPHIL # (test code = NT#) 2.24 x10 3/uL 2.2-4.8 N IMMATURE GRANULOCYTE # (test code = IG#) 0.01 x10 3/uL 0-0.03 N LYMPHOCYTE # (test code = LY#) 1.25 x10 3/uL 1.3-2.9 L MONOCYTE # (test code = MO#) 0.47 x10 3/uL 0.3-0.8 N EOSINOPHIL # (test code = EO#) 0.17 x10 3/uL 0.0-0.2 N BASOPHIL # (test code = BA#) 0.04 x10 3/uL 0.0-0.1 N [id number] 16:53:00* Test Item Value Reference Range Interpretation Comme nts GLUBED (test code = GLUBED) 125 MG/DL 74-106 H [id number] 11:56:00* Test Item Value Reference Range Interpretation Comme nts GLUBED (test code = GLUBED) 141 MG/DL 74-106 H [id number] 06:07:00* Test Item Value Reference Range Interpretation Comme nts GLUBED (test code = GLUBED) 118 MG/DL 74-106 H COMPREHENSIVE METABOLIC [id number] 04:38:00* Test Item Value Reference Range Interpretation Comme nts SODIUM (test code = NA) 142 mmol/L 136-145 N POTASSIUM (test code = K) 3.5 mmol/L 3.5-5.1 N CHLORIDE (test code = CL) 107 mmol/L 98-107 N CARBON DIOXIDE (test code = CO2) 22.0 mmol/L 20.0-31.0 N ANION GAP (test code = GAP) 17 mmol/L 10-20 N GLUCOSE (test code = GLU) 125 mg/dL 74-106 H BLOOD UREA NITROGEN (test code = BUN) 8 mg/dL 9-23 L GLOMERULAR FILTRATION RATE (test code = GFR) 89 mL/min The Glomerular Filtration Rate is a calculated parameterbased on serum Creatinine, patient age and sex. GFR valuesless than 60 mL/min/1.73 square meters are indicative ofChronic Kidney Disease. Values less than 15 mL/min/1.73square meters indicate Kidney failure. The calculation forGFR is based on the CKD-EPI (202) calculation. This formulais race indifferent and is the recommended formula for GFRby the National Kidney Foundation for Adults.The GFR will not calculate if the sex is unknown or if thepatient's age is <18 years. CREATININE (test code = CREAT) 0.88 mg/dL 0.55-1.30 N TOTAL PROTEIN (test code = PROT) 5.6 g/dL 5.7-8.2 L ALBUMIN (test code = ALB) 3.1 g/dL 3.4-5.0 L CALCIUM (test code = CA) 8.4 mg/dL 8.7-10.4 L BILIRUBIN TOTAL (test code = BILT) 0.80 mg/dL 0.20-1.10 N BILIRUBIN CONJUGATED (test code = BILCON) 0.3 mg/dL 0.1-0.3 N "A positive bias may occur for patients taking Eltrombopag(a bone marrow stimulant used to treat thrombocytopenia andaplastic anemia)." CONJUGATE D BILIRUBIN IS THE REPLACEMENT ASSAY FOR DIRECTBILIRUBIN. BILIRUBIN UNCONJUGATED (test code = BILUNC) 0.50 mg/dL 0-1.1 N SGOT/AST (test code = AST) 31 U/L 0-33 N SGPT/ALT (test code = ALT) 15 U/L 10-49 N ALKALINE PHOSPHATASE (test code = ALKP) 66 U/L 46-116 N INDEX HEMOLYSIS (test code = HEMINDEX) 0 Index/DL 0-3 N [id number] 04:38:00* Test Item Value Reference Range Interpretation Comme nts MAGNESIUM (test code = MAG) 1.3 mg/dL 1.6-2.6 L CBC W/AUTO [id number] 04:00:00* Test Item Value Reference Range Interpretation Comme nts WHITE BLOOD CELL (test code = WBC) 4.2 x10 3/uL 5.0-12.0 L RED BLOOD CELL (test code = RBC) 3.79 x10 6/uL 4.70-6.10 L HEMOGLOBIN (test code = HGB) 11.6 g/dL 14.0-18.0 L HEMATOCRIT (test code = HCT) 34.0 % 37.0-49.0 L MEAN CELL VOLUME (test code = MCV) 90 fL 80-94 N MEAN CELL HGB (test code = MCH) 30.6 pg 27-31 N MEAN CELL HGB CONCENTRATION (test code = MCHC) 34.1 g/dL 33-37 N RED CELL DISTRIBUTION WIDTH (test code = RDW) 13.2 % 11.5-15.5 N PLATELET COUNT (test code = PLT) 141 x10 3/uL 130-400 N MEAN PLATELET VOLUME (test c ode = MPV) 9.7 fL 9.4-16.4 N NEUTROPHIL % (test code = NT%) 49.8 % 43-65 N IMMATURE GRANULOCYTE % (test code = IG%) 0.2 % 0.0-2.0 N LYMPHOCYTE % (test code = LY%) 33.3 % 20.5-45.5 N MONOCYTE % (test code = MO%) 11.1 % 5.5-11.7 N EOSINOPHIL % (test code = EO%) 4.7 % 0.9-2.9 H BASOPHIL % (test code = BA%) 0.9 % 0.2-1.0 N NUCLEATED RBC % (test code = NRBC%) 0.0 % 0-1.0 N NEUTROPHIL # (test code = NT#) 2.11 x10 3/uL 2.2-4.8 L IMMATURE GRANULOCYTE # (test code = IG#) 0.01 x10 3/uL 0-0.03 N LYMPHOCYTE # (test code = LY#) 1.41 x10 3/uL 1.3-2.9 N MONOCYTE # (test code = MO#) 0.47 x10 3/uL 0.3-0.8 N EOSINOPHIL # (test code = EO#) 0.20 x10 3/uL 0.0-0.2 N BASOPHIL # (test code = BA#) 0.04 x10 3/uL 0.0-0.1 N [id number] 00:27:00* Test Item Value Reference Range Interpretation Comme nts GLUBED (test code = GLUBED) 116 MG/DL 74-106 H [id number] 16:26:00* Test Item Value Reference Range Interpretation Comme nts GLUBED (test code = GLUBED) 127 MG/DL 74-106 H [id number] 11:52:00* Test Item Value Reference Range Interpretation Comme nts GLUBED (test code = GLUBED) 147 MG/DL 74-106 H COMPREHENSIVE METABOLIC [id number] 06:14:00* Test Item Value Reference Range Interpretation Comme nts SODIUM (test code = NA) 143 mmol/L 136-145 N POTASSIUM (test code = K) 3.6 mmol/L 3.5-5.1 N CHLORIDE (test code = CL) 107 mmol/L 98-107 N CARBON DIOXIDE (test code = CO2) 24.0 mmol/L 20.0-31.0 N ANION GAP (test code = GAP) 16 mmol/L 10-20 N GLUCOSE (test code = GLU) 129 mg/dL 74-106 H BLOOD UREA NITROGEN (test code = BUN) 11 mg/dL 9-23 N GLOMERULAR FILTRATION RATE (test code = GFR) 81 mL/min The Glomerular Filtration Rate is a calculated parameterbased on serum Creatinine, patient age and sex. GFR valuesless than 60 mL/min/1.73 square meters are indicative ofChronic Kidney Disease. Values less than 15 mL/min/1.73square meters indicate Kidney failure. The calculation forGFR is based on the CKD-EPI (202) calculation. This formulais race indifferent and is the recommended formula for GFRby the National Kidney Foundation for Adults.The GFR will not calculate if the sex is unknown or if thepatient's age is <18 years. CREATININE (test code = CREAT) 0.97 mg/dL 0.55-1.30 N TOTAL PROTEIN (test code = PROT) 5.6 g/dL 5.7-8.2 L ALBUMIN (test code = ALB) 3.1 g/dL 3.4-5.0 L CALCIUM (test code = CA) 8.5 mg/dL 8.7-10.4 L BILIRUBIN TOTAL (test code = BILT) 0.70 mg/dL 0.20-1.10 N BILIRUBIN CONJUGATED (test code = BILCON) 0.3 mg/dL 0.1-0.3 N "A positive bias may occur for patients taking Eltrombopag(a bone marrow stimulant used to treat thrombocytopenia andaplastic anemia)." CONJUGATE D BILIRUBIN IS THE REPLACEMENT ASSAY FOR DIRECTBILIRUBIN. BILIRUBIN UNCONJUGATED (test code = BILUNC) 0.40 mg/dL 0-1.1 N SGOT/AST (test code = AST) 31 U/L 0-33 N SGPT/ALT (test code = ALT) 17 U/L 10-49 N ALKALINE PHOSPHATASE (test code = ALKP) 66 U/L 46-116 N INDEX HEMOLYSIS (test code = HEMINDEX) 0 Index/DL 0-3 N [id number] 06:14:00* Test Item Value Reference Range Interpretation Comme nts MAGNESIUM (test code = MAG) 1.7 mg/dL 1.6-2.6 N CBC W/AUTO [id number] 05:42:00* Test Item Value Reference Range Interpretation Comme nts WHITE BLOOD CELL (test code = WBC) 3.6 x10 3/uL 5.0-12.0 L RED BLOOD CELL (test code = RBC) 3.70 x10 6/uL 4.70-6.10 L HEMOGLOBIN (test code = HGB) 11.4 g/dL 14.0-18.0 L HEMATOCRIT (test code = HCT) 34.0 % 37.0-49.0 L MEAN CELL VOLUME (test code = MCV) 92 fL 80-94 N MEAN CELL HGB (test code = MCH) 30.8 pg 27-31 N MEAN CELL HGB CONCENTRATION (test code = MCHC) 33.5 g/dL 33-37 N RED CELL DISTRIBUTION WIDTH (test code = RDW) 13.6 % 11.5-15.5 N PLATELET COUNT (test code = PLT) 141 x10 3/uL 130-400 N MEAN PLATELET VOLUME (test c ode = MPV) 9.8 fL 9.4-16.4 N NEUTROPHIL % (test code = NT%) 47.4 % 43-65 N IMMATURE GRANULOCYTE % (test code = IG%) 0.3 % 0.0-2.0 N LYMPHOCYTE % (test code = LY%) 35.0 % 20.5-45.5 N MONOCYTE % (test code = MO%) 11.3 % 5.5-11.7 N EOSINOPHIL % (test code = EO%) 5.2 % 0.9-2.9 H BASOPHIL % (test code = BA%) 0.8 % 0.2-1.0 N NUCLEATED RBC % (test code = NRBC%) 0.0 % 0-1.0 N NEUTROPHIL # (test code = NT#) 1.72 x10 3/uL 2.2-4.8 L IMMATURE GRANULOCYTE # (test code = IG#) 0.01 x10 3/uL 0-0.03 N LYMPHOCYTE # (test code = LY#) 1.27 x10 3/uL 1.3-2.9 L MONOCYTE # (test code = MO#) 0.41 x10 3/uL 0.3-0.8 N EOSINOPHIL # (test code = EO#) 0.19 x10 3/uL 0.0-0.2 N BASOPHIL # (test code = BA#) 0.03 x10 3/uL 0.0-0.1 N [id number] 05:08:00* Test Item Value Reference Range Interpretation Comme nts GLUBED (test code = GLUBED) 118 MG/DL 74-106 H VANCOMYCIN [id number] 00:11:00* Test Item Value Reference Range Interpretation Comme nts VANCOMYCIN TROUGH (test code = VANCT) 9.9 ug/mL 10-20.0 L [id number] 20:19:00* Test Item Value Reference Range Interpretation Comme nts GLUBED (test code = GLUBED) 220 MG/DL 74-106 H [id number] 16:15:00* Test Item Value Reference Range Interpretation Comme nts GLUBED (test code = GLUBED) 194 MG/DL 74-106 H [id number] 11:50:00* Test Item Value Reference Range Interpretation Comme nts GLUBED (test code = GLUBED) 140 MG/DL 74-106 H [id number] 06:02:00* Test Item Value Reference Range Interpretation Comme nts GLUBED (test code = GLUBED) 133 MG/DL 74-106 H COMPREHENSIVE METABOLIC [id number] 04:57:00* Test Item Value Reference Range Interpretation Comme nts SODIUM (test code = NA) 142 mmol/L 136-145 N POTASSIUM (test code = K) 3.7 mmol/L 3.5-5.1 N CHLORIDE (test code = CL) 107 mmol/L 98-107 N CARBON DIOXIDE (test code = CO2) 28.0 mmol/L 20.0-31.0 N ANION GAP (test code = GAP) 11 mmol/L 10-20 N GLUCOSE (test code = GLU) 173 mg/dL 74-106 H BLOOD UREA NITROGEN (test code = BUN) 13 mg/dL 9-23 N GLOMERULAR FILTRATION RATE (test code = GFR) 77 mL/min The Glomerular Filtration Rate is a calculated parameterbased on serum Creatinine, patient age and sex. GFR valuesless than 60 mL/min/1.73 square meters are indicative ofChronic Kidney Disease. Values less than 15 mL/min/1.73square meters indicate Kidney failure. The calculation forGFR is based on the CKD-EPI (202) calculation. This formulais race indifferent and is the recommended formula for GFRby the National Kidney Foundation for Adults.The GFR will not calculate if the sex is unknown or if thepatient's age is <18 years. CREATININE (test code = CREAT) 1.01 mg/dL 0.55-1.30 N TOTAL PROTEIN (test code = PROT) 5.6 g/dL 5.7-8.2 L ALBUMIN (test code = ALB) 3.1 g/dL 3.4-5.0 L CALCIUM (test code = CA) 8.7 mg/dL 8.7-10.4 N BILIRUBIN TOTAL (test code = BILT) 0.60 mg/dL 0.20-1.10 N BILIRUBIN CONJUGATED (test code = BILCON) 0.2 mg/dL 0.1-0.3 N "A positive bias may occur for patients taking Eltrombopag(a bone marrow stimulant used to treat thrombocytopenia andaplastic anemia)." CONJUGATE D BILIRUBIN IS THE REPLACEMENT ASSAY FOR DIRECTBILIRUBIN. BILIRUBIN UNCONJUGATED (test code = BILUNC) 0.40 mg/dL 0-1.1 N SGOT/AST (test code = AST) 34 U/L 0-33 H SGPT/ALT (test code = ALT) 17 U/L 10-49 N ALKALINE PHOSPHATASE (test code = ALKP) 71 U/L 46-116 N INDEX HEMOLYSIS (test code = HEMINDEX) 1 Index/DL 0-3 N IS THE SAMPLE HEMOLYZED?:NHEMOLYSIS GRADE:0 0 - Normal+1 - Suspect Hemolysis+2 - Severe Hemolysis+3 - Grossly Hemolyzed "HEMOLYZED SPECIMEN MUST BE INTERPRETED WITH CAUTION SOMEOR ALL TEST RESULTS MAY BE INACCURATE."PLEASE CORRELATE CLINICALLY. [id number] 04:57:00* Test Item Value Reference Range Interpretation Comme nts MAGNESIUM (test code = MAG) 1.2 mg/dL 1.6-2.6 L VANCOMYCIN [id number] 04:51:00* Test Item Value Reference Range Interpretation Comme nts VANCOMYCIN PEAK (test code = VANCP) 27.0 ug/mL 20.0-26.0 H CBC W/AUTO [id number] 04:36:00* Test Item Value Reference Range Interpretation Comme nts WHITE BLOOD CELL (test code = WBC) 3.4 x10 3/uL 5.0-12.0 L RED BLOOD CELL (test code = RBC) 3.86 x10 6/uL 4.70-6.10 L HEMOGLOBIN (test code = HGB) 11.9 g/dL 14.0-18.0 L HEMATOCRIT (test code = HCT) 35.6 % 37.0-49.0 L MEAN CELL VOLUME (test code = MCV) 92 fL 80-94 N MEAN CELL HGB (test code = MCH) 30.8 pg 27-31 N MEAN CELL HGB CONCENTRATION (test code = MCHC) 33.4 g/dL 33-37 N RED CELL DISTRIBUTION WIDTH (test code = RDW) 13.6 % 11.5-15.5 N PLATELET COUNT (test code = PLT) 126 x10 3/uL 130-400 L MEAN PLATELET VOLUME (test c ode = MPV) 10.0 fL 9.4-16.4 N NEUTROPHIL % (test code = NT%) 47.2 % 43-65 N IMMATURE GRANULOCYTE % (test code = IG%) 0.3 % 0.0-2.0 N LYMPHOCYTE % (test code = LY%) 34.7 % 20.5-45.5 N MONOCYTE % (test code = MO%) 12.0 % 5.5-11.7 H EOSINOPHIL % (test code = EO%) 5.2 % 0.9-2.9 H BASOPHIL % (test code = BA%) 0.6 % 0.2-1.0 N NUCLEATED RBC % (test code = NRBC%) 0.0 % 0-1.0 N NEUTROPHIL # (test code = NT#) 1.62 x10 3/uL 2.2-4.8 L IMMATURE GRANULOCYTE # (test code = IG#) 0.01 x10 3/uL 0-0.03 N LYMPHOCYTE # (test code = LY#) 1.19 x10 3/uL 1.3-2.9 L MONOCYTE # (test code = MO#) 0.41 x10 3/uL 0.3-0.8 N EOSINOPHIL # (test code = EO#) 0.18 x10 3/uL 0.0-0.2 N BASOPHIL # (test code = BA#) 0.02 x10 3/uL 0.0-0.1 N [id number] 23:53:00* Test Item Value Reference Range Interpretation Comme nts GLUBED (test code = GLUBED) 172 MG/DL 74-106 H [id number] 20:33:00* Test Item Value Reference Range Interpretation Comme nts GLUBED (test code = GLUBED) 147 MG/DL 74-106 H [id number] 17:06:00* Test Item Value Reference Range Interpretation Comme nts GLUBED (test code = GLUBED) 195 MG/DL 74-106 H [id number] 12:20:00* Test Item Value Reference Range Interpretation Comme nts GLUBED (test code = GLUBED) 118 MG/DL 74-106 H [id number] 08:06:00* Test Item Value Reference Range Interpretation Comme nts GLUBED (test code = GLUBED) 148 MG/DL 74-106 H [id number] 07:30:00* Test Item Value Reference Range Interpretation Comme nts GLUBED (test code = GLUBED) 159 MG/DL 74-106 H COMPREHENSIVE METABOLIC [id number] 04:39:00* Test Item Value Reference Range Interpretation Comme nts SODIUM (test code = NA) 139 mmol/L 136-145 N POTASSIUM (test code = K) 4.1 mmol/L 3.5-5.1 N CHLORIDE (test code = CL) 105 mmol/L 98-107 N CARBON DIOXIDE (test code = CO2) 24.0 mmol/L 20.0-31.0 N ANION GAP (test code = GAP) 14 mmol/L 10-20 N GLUCOSE (test code = GLU) 126 mg/dL 74-106 H BLOOD UREA NITROGEN (test code = BUN) 16 mg/dL 9-23 N GLOMERULAR FILTRATION RATE (test code = GFR) 60 mL/min The Glomerular Filtration Rate is a calculated parameterbased on serum Creatinine, patient age and sex. GFR valuesless than 60 mL/min/1.73 square meters are indicative ofChronic Kidney Disease. Values less than 15 mL/min/1.73square meters indicate Kidney failure. The calculation forGFR is based on the CKD-EPI (2020) calculation. This formulais race indifferent and is the recommended formula for GFRby the National Kidney Foundation for Adults.The GFR will not calculate if the sex is unknown or if thepatient's age is <18 years. CREATININE (test code = CREAT) 1.24 mg/dL 0.55-1.30 N TOTAL PROTEIN (test code = PROT) 5.7 g/dL 5.7-8.2 N ALBUMIN (test code = ALB) 3.2 g/dL 3.4-5.0 L CALCIUM (test code = CA) 8.8 mg/dL 8.7-10.4 N BILIRUBIN TOTAL (test code = BILT) 0.80 mg/dL 0.20-1.10 N BILIRUBIN CONJUGATED (test code = BILCON) 0.3 mg/dL 0.1-0.3 N "A positive bias may occur for patients taking Eltrombopag(a bone marrow stimulant used to treat thrombocytopenia andaplastic anemia)." CONJUGATE D BILIRUBIN IS THE REPLACEMENT ASSAY FOR DIRECTBILIRUBIN. BILIRUBIN UNCONJUGATED (test code = BILUNC) 0.50 mg/dL 0-1.1 N SGOT/AST (test code = AST) 31 U/L 0-33 N SGPT/ALT (test code = ALT) 18 U/L 10-49 N ALKALINE PHOSPHATASE (test code = ALKP) 64 U/L 46-116 N INDEX HEMOLYSIS (test code = HEMINDEX) 0 Index/DL 0-3 N [id number] 04:39:00* Test Item Value Reference Range Interpretation Comme nts MAGNESIUM (test code = MAG) 1.3 mg/dL 1.6-2.6 L LACTIC [id number] 04:31:00* Test Item Value Reference Range Interpretation Comme nts LACTIC ACID (test code = LACT) 1.10 mmol/L 0.50-1.99 N PROTHROMBIN [id number] 04:23:00* Test Item Value Reference Range Interpretation Comme nts PROTHROMBIN TIME PATIENT (test code = PTP) 14.3 SECONDS 9.4-12.5 H INTERNATIONAL NORMAL RATIO (test code = INR) 1.3 The INR is to be used only for monitoring ORAL ANTICOAGULANTTHERAPY. Indication INR Value1. Prophylaxis/treatment of: Venous Thrombosis, Pulmonary Embolism 2.0 - 3.02. Prevention of systemic embolism from: Tissue heart valves 2.0 - 3.0 Acute myocardial infarction (to present systemic embolism)* 2.0 - 3.0 Valvular heart disease 2.0 - 3.0 Atrial fibrillation 2.0 - 3.03. Mechanical prosthetic valves (high risk) 2.5 - 3.5 * If oral anticoagulant therapy is elected to preventrecurrent myocardial infarction, an INR of 2.5-3.5 isrecommended, consistent with Food and Drug Administrationrecommen dations. THROMBOPLASTIN TIME [id number] 04:23:00* Test Item Value Reference Range Interpretation Comme nts THROMBOPLASTIN TIME PARTIAL (test code = PTT) 34.6 SECONDS 23.4-37.0 N Therapeutic Rang e for Heparin EFFECTIVE 11/25/12 Heparin IU/mL aPTT Seconds0.3 64.30.7 88.8 CBC W/AUTO [id number] 04:12:00* Test Item Value Reference Range Interpretation Comme nts WHITE BLOOD CELL (test code = WBC) 5.3 x10 3/uL 5.0-12.0 N RED BLOOD CELL (test code = RBC) 3.91 x10 6/uL 4.70-6.10 L HEMOGLOBIN (test code = HGB) 12.0 g/dL 14.0-18.0 L HEMATOCRIT (test code = HCT) 35.1 % 37.0-49.0 L MEAN CELL VOLUME (test code = MCV) 90 fL 80-94 N MEAN CELL HGB (test code = MCH) 30.7 pg 27-31 N MEAN CELL HGB CONCENTRATION (test code = MCHC) 34.2 g/dL 33-37 N RED CELL DISTRIBUTION WIDTH (test code = RDW) 13.7 % 11.5-15.5 N PLATELET COUNT (test code = PLT) 151 x10 3/uL 130-400 N MEAN PLATELET VOLUME (test c ode = MPV) 9.6 fL 9.4-16.4 N NEUTROPHIL % (test code = NT%) 46.5 % 43-65 N IMMATURE GRANULOCYTE % (test code = IG%) 0.2 % 0.0-2.0 N LYMPHOCYTE % (test code = LY%) 35.4 % 20.5-45.5 N MONOCYTE % (test code = MO%) 11.7 % 5.5-11.7 N EOSINOPHIL % (test code = EO%) 5.3 % 0.9-2.9 H BASOPHIL % (test code = BA%) 0.9 % 0.2-1.0 N NUCLEATED RBC % (test code = NRBC%) 0.0 % 0-1.0 N NEUTROPHIL # (test code = NT#) 2.45 x10 3/uL 2.2-4.8 N IMMATURE GRANULOCYTE # (test code = IG#) 0.01 x10 3/uL 0-0.03 N LYMPHOCYTE # (test code = LY#) 1.87 x10 3/uL 1.3-2.9 N MONOCYTE # (test code = MO#) 0.62 x10 3/uL 0.3-0.8 N EOSINOPHIL # (test code = EO#) 0.28 x10 3/uL 0.0-0.2 H BASOPHIL # (test code = BA#) 0.05 x10 3/uL 0.0-0.1 N [id number] 23:25:00* Test Item Value Reference Range Interpretation Comme nts GLUBED (test code = GLUBED) 173 MG/DL 74-106 H [id number] 16:05:00* Test Item Value Reference Range Interpretation Comme nts GLUBED (test code = GLUBED) 188 MG/DL 74-106 H [id number] 12:59:00* Test Item Value Reference Range Interpretation Comme nts VANCOMYCIN (test code = VANCO) 7.7 ug/mL ~~~~~~~~~~~~~~~~ ~~~~~~~~ ~~~~~~~~~~~~~~~~~~~THERA PEUTIC REFERENCE RANGE NOT ESTABLISHEDWHEN NOT DRAWN PEAK OR TROUGH LEVEL.~~~~~~~~~~~~~~~~~~ ~~~~~~~~~~~~~~~~~~~~~~~~ ~ LACTIC [id number] 10:16:00* Test Item Value Reference Range Interpretation Comme nts LACTIC ACID (test code = LACT) 2.10 mmol/L 0.50-1.99 LACTIC [id number] 05:15:00* Test Item Value Reference Range Interpretation Comme nts LACTIC ACID (test code = LACT) 2.30 mmol/L 0.50-1.99 BASIC METABOLIC [id number] 00:51:00* Test Item Value Reference Range Interpretation Comme nts SODIUM (test code = NA) 134 mmol/L 136-145 L POTASSIUM (test code = K) 4.1 mmol/L 3.5-5.1 N CHLORIDE (test code = CL) 99 mmol/L 98-107 N CARBON DIOXIDE (test code = CO2) 26.0 mmol/L 20.0-31.0 N ANION GAP (test code = GAP) 13 mmol/L 10-20 N GLUCOSE (test code = GLU) 194 mg/dL 74-106 H BLOOD UREA NITROGEN (test code = BUN) 17 mg/dL 9-23 N GLOMERULAR FILTRATION RATE (test code = GFR) 56 mL/min The Glomerular Filtration Rate is a calculated parameterbased on serum Creatinine, patient age and sex. GFR valuesless than 60 mL/min/1.73 square meters are indicative ofChronic Kidney Disease. Values less than 15 mL/min/1.73square meters indicate Kidney failure. The calculation forGFR is based on the CKD-EPI (202) calculation. This formulais race indifferent and is the recommended formula for GFRby the National Kidney Foundation for Adults.The GFR will not calculate if the sex is unknown or if thepatient's age is <18 years. CREATININE (test code = CREAT) 1.31 mg/dL 0.55-1.30 H CALCIUM (test code = CA) 9.8 mg/dL 8.7-10.4 N INDEX HEMOLYSIS (test code = HEMINDEX) 1 Index/DL 0-3 N IS THE SAMPLE HEMOLYZED?:NHEMOLYSIS GRADE:0 0 - Normal+1 - Suspect Hemolysis+2 - Severe Hemolysis+3 - Grossly Hemolyzed "HEMOLYZED SPECIMEN MUST BE INTERPRETED WITH CAUTION SOMEOR ALL TEST RESULTS MAY BE INACCURATE."PLEASE CORRELATE CLINICALLY. LACTIC [id number] 00:50:00* Test Item Value Reference Range Interpretation Comme nts LACTIC ACID (test code = LACT) 2.90 mmol/L 0.50-1.99 CBC W/AUTO [id number] 00:37:00* Test Item Value Reference Range Interpretation Comme nts WHITE BLOOD CELL (test code = WBC) 6.2 x10 3/uL 5.0-12.0 N RED BLOOD CELL (test code = RBC) 4.05 x10 6/uL 4.70-6.10 L HEMOGLOBIN (test code = HGB) 12.6 g/dL 14.0-18.0 L HEMATOCRIT (test code = HCT) 37.2 % 37.0-49.0 N MEAN CELL VOLUME (test code = MCV) 92 fL 80-94 N MEAN CELL HGB (test code = MCH) 31.1 pg 27-31 H MEAN CELL HGB CONCENTRATION (test code = MCHC) 33.9 g/dL 33-37 N RED CELL DISTRIBUTION WIDTH (test code = RDW) 14.1 % 11.5-15.5 N PLATELET COUNT (test code = PLT) 150 x10 3/uL 130-400 N MEAN PLATELET VOLUME (test c ode = MPV) 9.7 fL 9.4-16.4 N NEUTROPHIL % (test code = NT%) 55.5 % 43-65 N IMMATURE GRANULOCYTE % (test code = IG%) 0.2 % 0.0-2.0 N LYMPHOCYTE % (test code = LY%) 29.4 % 20.5-45.5 N MONOCYTE % (test code = MO%) 10.6 % 5.5-11.7 N EOSINOPHIL % (test code = EO%) 3.7 % 0.9-2.9 H BASOPHIL % (test code = BA%) 0.6 % 0.2-1.0 N NUCLEATED RBC % (test code = NRBC%) 0.0 % 0-1.0 N NEUTROPHIL # (test code = NT#) 3.42 x10 3/uL 2.2-4.8 N IMMATURE GRANULOCYTE # (test code = IG#) 0.01 x10 3/uL 0-0.03 N LYMPHOCYTE # (test code = LY#) 1.81 x10 3/uL 1.3-2.9 N MONOCYTE # (test code = MO#) 0.65 x10 3/uL 0.3-0.8 N EOSINOPHIL # (test code = EO#) 0.23 x10 3/uL 0.0-0.2 H BASOPHIL # (test code = BA#) 0.04 x10 3/uL 0.0-0.1 N HGBA1C - GLYCOSYLATED [id number] 22:16:00* Test Item Value Reference Range Interpretation Comme nts GLYCOSYLATED HEMOGLOBIN (HA1C) (test code = GLYHGB) 9.30 % 0.0-5.6 H Current nisha delines recommend a treatment goal of <7% fordiabetic patients. A1c may be overestimated in diabeticpatients exhibiting poor control and who are alsoheterozygous or homozygous for HgbS or HgbC. Totalglycohemoglobin is a better indicator of diabetic control inpatients with these hemoglobin variants. LACTIC [id number] 22:01:00* Test Item Value Reference Range Interpretation Comme nts LACTIC ACID (test code = LACT) 3.10 mmol/L 0.50-1.99 HH UA RFLX MICR CULT IF [id number] 20:14:00* Test Item Value Reference Range Interpretation Comme nts UA COLOR (test code = COLU) Yellow Yellow UA APPEARANCE (test code = APPU) Clear Clear UA GLUCOSE DIPSTICK (test code = DGLUU) Normal Negative UA BILIRUBIN DIPSTICK (test code = BILU) Negative Negative UA KETONE DIPSTICK (test code = KETU) Negative mg/dL Negative UA SPECIFIC GRAVITY (test code = SGU) 1.017 <1.030 UA BLOOD DIPSTICK (test code = BUTCH) Negative Negative UA PH DIPSTICK (test code = ECHO) 5.5 5.0-8.0 UA PROTEIN DIPSTICK (test code = PROU) TRACE mg/dL Negative UA UROBILINOGEN DIPSTICK (test code = URO) Negative mg/dL Negative UA NITRITE DIPSTICK (test code = SHANDA) Negative Negative UA LEUKOCYTE ESTERASE DIPSTICK (test code = LEUU) 1+ Negative A UA WBC (test code = WBCUR) 11-20 /HPF See_Comment A >10 WBC/HPF = PYURIA PRESENT URINE CULTURE PROCESSED [Automated message] The system which generated this result transmitted reference range: <4-5. The reference range was not used to interpret this result as normal/abnormal. UA RBC (test code = RBCU) 0-3 /HPF See_Comment [Automated message] The system which generated this result transmitted reference range: <4-5. The reference range was not used to interpret this result as normal/abnormal. UA BACTERIA (test code = BACU) None /HPF None-Rare UA SQUAMOUS CELLS (test code = SQU) 0-5 (RARE) /HPF See_Comment [Automated message] The system which generated this result transmitted reference range: 0-5 (RARE). The reference range was not used to interpret this result as normal/abnormal. UA HYALINE CAST (test code = HYALU) >30 /LPF See_Comment A [Automated message] The system which generated this result transmitted reference range: <4-5. The reference range was not used to interpret this result as normal/abnormal. UA MUCUS (test code = MUCU) Rare /LPF See_Comment [Automated message] The system which generated this result transmitted reference range: <Rare. The reference range was not used to interpret this result as normal/abnormal. Indication for culture: RiskForSepsis-no oth srcSOURCE OF URINE: CLEAN CATCHCBC W/AUTO [id number] 15:54:00* Test Item Value Reference Range Interpretation Comme nts WHITE BLOOD CELL (test code = WBC) 6.4 x10 3/uL 5.0-12.0 N RED BLOOD CELL (test code = RBC) 4.72 x10 6/uL 4.70-6.10 N HEMOGLOBIN (test code = HGB) 14.7 g/dL 14.0-18.0 N HEMATOCRIT (test code = HCT) 41.8 % 37.0-49.0 N MEAN CELL VOLUME (test code = MCV) 89 fL 80-94 N MEAN CELL HGB (test code = MCH) 31.1 pg 27-31 H MEAN CELL HGB CONCENTRATION (test code = MCHC) 35.2 g/dL 33-37 N RED CELL DISTRIBUTION WIDTH (test code = RDW) 13.9 % 11.5-15.5 N PLATELET COUNT (test code = PLT) 188 x10 3/uL 130-400 N MEAN PLATELET VOLUME (test c ode = MPV) 9.4 fL 9.4-16.4 N NEUTROPHIL % (test code = NT%) 58.3 % 43-65 N IMMATURE GRANULOCYTE % (test code = IG%) 0.2 % 0.0-2.0 N LYMPHOCYTE % (test code = LY%) 29.5 % 20.5-45.5 N MONOCYTE % (test code = MO%) 8.7 % 5.5-11.7 N EOSINOPHIL % (test code = EO%) 2.5 % 0.9-2.9 N BASOPHIL % (test code = BA%) 0.8 % 0.2-1.0 N NUCLEATED RBC % (test code = NRBC%) 0.0 % 0-1.0 N NEUTROPHIL # (test code = NT#) 3.74 x10 3/uL 2.2-4.8 N IMMATURE GRANULOCYTE # (test code = IG#) 0.01 x10 3/uL 0-0.03 N LYMPHOCYTE # (test code = LY#) 1.89 x10 3/uL 1.3-2.9 N MONOCYTE # (test code = MO#) 0.56 x10 3/uL 0.3-0.8 N EOSINOPHIL # (test code = EO#) 0.16 x10 3/uL 0.0-0.2 N BASOPHIL # (test code = BA#) 0.05 x10 3/uL 0.0-0.1 N SED [id number] 15:54:00* Test Item Value Reference Range Interpretation Comme nts SED RATE (test code = SEDW) 30 mm/hr 0-20 H LACTIC [id number] 15:21:00* Test Item Value Reference Range Interpretation Comme nts LACTIC ACID (test code = LACT) 2.40 mmol/L 0.50-1.99 HH BASIC METABOLIC [id number] 15:07:00* Test Item Value Reference Range Interpretation Comme nts SODIUM (test code = NA) 135 mmol/L 136-145 L POTASSIUM (test code = K) 3.7 mmol/L 3.5-5.1 N CHLORIDE (test code = CL) 100 mmol/L 98-107 N CARBON DIOXIDE (test code = CO2) 26.0 mmol/L 20.0-31.0 N ANION GAP (test code = GAP) 13 mmol/L 10-20 N GLUCOSE (test code = GLU) 153 mg/dL 74-106 H BLOOD UREA NITROGEN (test code = BUN) 18 mg/dL 9-23 N GLOMERULAR FILTRATION RATE (test code = GFR) 54 mL/min The Glomerular Filtration Rate is a calculated parameterbased on serum Creatinine, patient age and sex. GFR valuesless than 60 mL/min/1.73 square meters are indicative ofChronic Kidney Disease. Values less than 15 mL/min/1.73square meters indicate Kidney failure. The calculation forGFR is based on the CKD-EPI (2020) calculation. This formulais race indifferent and is the recommended formula for GFRby the National Kidney Foundation for Adults.The GFR will not calculate if the sex is unknown or if thepatient's age is <18 years. CREATININE (test code = CREAT) 1.35 mg/dL 0.55-1.30 H CALCIUM (test code = CA) 10.9 mg/dL 8.7-10.4 H INDEX HEMOLYSIS (test code = HEMINDEX) 0 Index/DL 0-3 N LIVER FUNCTION [id number] 15:07:00* Test Item Value Reference Range Interpretation Comme nts TOTAL PROTEIN (test code = PROT) 7.5 g/dL 5.7-8.2 N ALBUMIN (test code = ALB) 4.2 g/dL 3.4-5.0 N BILIRUBIN TOTAL (test code = BILT) 1.60 mg/dL 0.20-1.10 H BILIRUBIN CONJUGATED (test code = BILCON) 0.5 mg/dL 0.1-0.3 H "A positive bias may occur for patients taking Eltrombopag(a bone marrow stimulant used to treat thrombocytopenia andaplastic anemia)." CONJUGATE D BILIRUBIN IS THE REPLACEMENT ASSAY FOR DIRECTBILIRUBIN. BILIRUBIN UNCONJUGATED (test code = BILUNC) 1.10 mg/dL 0-1.1 N SGOT/AST (test code = AST) 37 U/L 0-33 H SGPT/ALT (test code = ALT) 24 U/L 10-49 N ALKALINE PHOSPHATASE (test code = ALKP) 88 U/L 46-116 N [id number] 15:07:00* Test Item Value Reference Range Interpretation Comme [facility] LIPASE (test code = LIP) 28 U/L 12-53 N TROP-I HIGH [id number] 15:07:00* Test Item Value Reference Range Interpretation Comme [facility] TROP-I HIGH SENSITIVITY (test code = TROPIHS) 5.77 ng/L 0.00-54.00 N 99th Percentile Upper Reference Limit (URL):Females: 34 ng/LMales: 54 ng/L In order to distinguish acute elevations of high sensitivitytroponin from other clinical conditions, the FourthUniversal Definition of Myocardial Infarction stressesclinical assessment and the demonstration of a rise and/orfall in serial troponin results above the URL. These results were obtained using Siemens [employer]ell[employer] IM TnIHreagent. Results from different methodologies should not becompared to one another as quantitative results and URLs mayvary by method. C REACTIVE [id number] 15:07:00* Test Item Value Reference Range Interpretation Comme nts C REACTIVE PROTEIN (test cod e = CRP) 32.0 mg/L 0.0-0.9 H Coronavirus 2019 nCoV [id number] 14:54:00* Test Item Value Reference Range Interpretation Comme nts Coronavirus 2019 nCoV Bedside (test code = [id number]) Negative NEGATIVE This test h as been authorized by FDA under an EUA for use byauthorized laboratories; This test has been authorized only for the detection ofnucleic acid from SARS-CoV-2, not for any other viruses orpathogens; and This test is only authorized for the duration of thedeclaration that circumstances exist justifying theauthorization of emergency use of in vitro diagnostic testsfor detection and/or diagnosis of COVID-19 under Ibkhwhh425(b)(1) of the Act, 21 U.S.C. 360bbb-3(b)(1), unless theauthorization is terminated or revoked sooner. UR MAGNESIUM [id number] 09:33:00* Test Item Value Reference Range Interpretation Comme nts UR MAGNESIUM (test code = MAGU) 20.5 MG/DL UR MAGNESIUM 24HR (test code = MAG24T) 349 MG/24HR 24-255 H UR VOLUME (test code = VOL) 1700 ML [id number] 17:09:00* Test Item Value Reference Range Interpretation Comme nts GLUBED (test code = GLUBED) 219 MG/DL 74-106 H [id number] 12:50:00* Test Item Value Reference Range Interpretation Comme nts GLUBED (test code = GLUBED) 167 MG/DL 74-106 H [id number] 05:46:00* Test Item Value Reference Range Interpretation Comme nts GLUBED (test code = GLUBED) 123 MG/DL 74-106 H [id number] 22:15:00* Test Item Value Reference Range Interpretation Comme nts GLUBED (test code = GLUBED) 158 MG/DL 74-106 H [id number] 16:12:00* Test Item Value Reference Range Interpretation Comme nts GLUBED (test code = GLUBED) 240 MG/DL 74-106 H BASIC METABOLIC [id number] 15:57:00* Test Item Value Reference Range Interpretation Comme nts SODIUM (test code = NA) 135 mmol/L 137-145 L POTASSIUM (test code = K) 4.0 mmol/L 3.4-5.0 N CHLORIDE (test code = CL) 106 mmol/L 98-107 N CARBON DIOXIDE (test code = CO2) 26 mmol/L 22-30 N ANION GAP (test code = GAP) 7 GLUCOSE (test code = GLU) 225 mg/dL 74-106 H BLOOD UREA NITROGEN (test code = BUN) 10 mg/dL 9-20 N GLOMERULAR FILTRATION RATE (test code = GFR) 107 mL/min The Glomerular Filtration Rate is a calculated parameterbased on serum Creatinine, patient age and sex. GFR valuesless than 60 mL/min/1.73 square meters are indicative ofChronic Kidney Disease. Values less than 15 mL/min/1.73square meters indicate Kidney failure. The calculation forGFR is based on the CKD-EPI (2020) calculation. This formulais race indifferent and is the recommended formula for GFRby the National Kidney Foundation for Adults.The GFR will not calculate if the sex is unknown or if thepatient's age is <18 years. CREATININE (test code = CREAT) < 0.5 mg/dL 0.7-1.3 L CALCIUM (test code = CA) 9.0 mg/dL 8.4-10.2 N INDEX HEMOLYSIS (test code = HEMINDEX) < 15 Index/DL 0-100 N [id number] 15:57:00* Test Item Value Reference Range Interpretation Comme nts MAGNESIUM (test code = MAG) 1.1 mg/dL 1.6-2.3 L [id number] 12:58:00* Test Item Value Reference Range Interpretation Comme nts GLUBED (test code = GLUBED) 202 MG/DL 74-106 H [id number] 05:24:00* Test Item Value Reference Range Interpretation Comme nts GLUBED (test code = GLUBED) 133 MG/DL 74-106 H [id number] 16:39:00* Test Item Value Reference Range Interpretation Comme nts GLUBED (test code = GLUBED) 174 MG/DL 74-106 H [id number] 11:09:00* Test Item Value Reference Range Interpretation Comme nts GLUBED (test code = GLUBED) 209 MG/DL 74-106 H BASIC METABOLIC [id number] 05:20:00* Test Item Value Reference Range Interpretation Comme nts SODIUM (test code = NA) 136 mmol/L 137-145 L POTASSIUM (test code = K) 4.4 mmol/L 3.4-5.0 N CHLORIDE (test code = CL) 105 mmol/L 98-107 N CARBON DIOXIDE (test code = CO2) 25 mmol/L 22-30 N ANION GAP (test code = GAP) 10 GLUCOSE (test code = GLU) 155 mg/dL 74-106 H BLOOD UREA NITROGEN (test code = BUN) 10 mg/dL 9-20 N GLOMERULAR FILTRATION RATE (test code = GFR) 107 mL/min The Glomerular Filtration Rate is a calculated parameterbased on serum Creatinine, patient age and sex. GFR valuesless than 60 mL/min/1.73 square meters are indicative ofChronic Kidney Disease. Values less than 15 mL/min/1.73square meters indicate Kidney failure. The calculation forGFR is based on the CKD-EPI (2020) calculation. This formulais race indifferent and is the recommended formula for GFRby the National Kidney Foundation for Adults.The GFR will not calculate if the sex is unknown or if thepatient's age is <18 years. CREATININE (test code = CREAT) < 0.5 mg/dL 0.7-1.3 L CALCIUM (test code = CA) 9.1 mg/dL 8.4-10.2 N INDEX HEMOLYSIS (test code = HEMINDEX) < 15 Index/DL 0-100 N [id number] 05:20:00* Test Item Value Reference Range Interpretation Comme nts MAGNESIUM (test code = MAG) 1.1 mg/dL 1.6-2.3 L CBC W/AUTO [id number] 04:49:00* Test Item Value Reference Range Interpretation Comme nts WHITE BLOOD CELL (test code = WBC) 6.5 x10 3/uL 5.0-12.0 N RED BLOOD CELL (test code = RBC) 3.88 x10 6/uL 4.70-6.10 L HEMOGLOBIN (test code = HGB) 11.8 g/dL 14.0-18.0 L HEMATOCRIT (test code = HCT) 34.7 % 37.0-49.0 L MEAN CELL VOLUME (test code = MCV) 89 fL 80-94 N MEAN CELL HGB (test code = MCH) 30.4 pg 27-31 N MEAN CELL HGB CONCENTRATION (test code = MCHC) 34.0 g/dL 33-37 N RED CELL DISTRIBUTION WIDTH (test code = RDW) 13.6 % 11.5-15.5 N PLATELET COUNT (test code = PLT) 238 x10 3/uL 130-400 N MEAN PLATELET VOLUME (test c ode = MPV) 9.0 fL 9.4-16.4 L NEUTROPHIL % (test code = NT%) 57.4 % 43-65 N IMMATURE GRANULOCYTE % (test code = IG%) 0.5 % 0.0-2.0 N LYMPHOCYTE % (test code = LY%) 24.7 % 20.5-45.5 N MONOCYTE % (test code = MO%) 10.6 % 5.5-11.7 N EOSINOPHIL % (test code = EO%) 5.9 % 0.9-2.9 H BASOPHIL % (test code = BA%) 0.9 % 0.2-1.0 N NUCLEATED RBC % (test code = NRBC%) 0.0 % 0-1.0 N NEUTROPHIL # (test code = NT#) 3.73 x10 3/uL 2.2-4.8 N IMMATURE GRANULOCYTE # (test code = IG#) 0.03 x10 3/uL 0-0.03 N LYMPHOCYTE # (test code = LY#) 1.60 x10 3/uL 1.3-2.9 N MONOCYTE # (test code = MO#) 0.69 x10 3/uL 0.3-0.8 N EOSINOPHIL # (test code = EO#) 0.38 x10 3/uL 0.0-0.2 H BASOPHIL # (test code = BA#) 0.06 x10 3/uL 0.0-0.1 N [id number] 04:31:00* Test Item Value Reference Range Interpretation Comme nts GLUBED (test code = GLUBED) 164 MG/DL 74-106 H [id number] 20:21:00* Test Item Value Reference Range Interpretation Comme nts GLUBED (test code = GLUBED) 241 MG/DL 74-106 H [id number] 15:51:00* Test Item Value Reference Range Interpretation Comme nts GLUBED (test code = GLUBED) 151 MG/DL 74-106 H UR CREATININE [id number] 12:17:00* Test Item Value Reference Range Interpretation Comme nts UR CREATININE 24HR (test cod e = [id number]) 0.80 gm/24HRS 1.0-2.0 L UR VOLUME (test code = VOL) 1700 ML [id number] 10:45:00* Test Item Value Reference Range Interpretation Comme nts GLUBED (test code = GLUBED) 210 MG/DL 74-106 H COMPREHENSIVE METABOLIC [id number] 06:41:00* Test Item Value Reference Range Interpretation Comme nts SODIUM (test code = NA) 135 mmol/L 137-145 L POTASSIUM (test code = K) 4.1 mmol/L 3.4-5.0 N CHLORIDE (test code = CL) 105 mmol/L 98-107 N CARBON DIOXIDE (test code = CO2) 23 mmol/L 22-30 N ANION GAP (test code = GAP) 11 GLUCOSE (test code = GLU) 130 mg/dL 74-106 H BLOOD UREA NITROGEN (test code = BUN) 9 mg/dL 9-20 N GLOMERULAR FILTRATION RATE (test code = GFR) 107 mL/min The Glomerular Filtration Rate is a calculated parameterbased on serum Creatinine, patient age and sex. GFR valuesless than 60 mL/min/1.73 square meters are indicative ofChronic Kidney Disease. Values less than 15 mL/min/1.73square meters indicate Kidney failure. The calculation forGFR is based on the CKD-EPI (202) calculation. This formulais race indifferent and is the recommended formula for GFRby the National Kidney Foundation for Adults.The GFR will not calculate if the sex is unknown or if thepatient's age is <18 years. CREATININE (test code = CREAT) < 0.5 mg/dL 0.7-1.3 L TOTAL PROTEIN (test code = PROT) 7.2 g/dL 6.3-8.2 N "A positive bias may occur for patients taking Eltrombopag(a bone marrow stimulant used to treat thrombocytopenia andaplastic anemia)." ALBUMIN (test code = ALB) 3.3 g/dL 3.5-5.0 L CALCIUM (test code = CA) 9.3 mg/dL 8.4-10.2 N BILIRUBIN TOTAL (test code = BILT) 1.0 mg/dL 0.2-1.3 N "A positive b ias may occur for patients taking Eltrombopag(a bone marrow stimulant used to treat thrombocytopenia andaplastic anemia)." BILIRUBIN CONJUGATED (test code = BILCON) 0 mg/dL 0-0.3 N "A positive bias may occur for patients taking Eltrombopag(a bone marrow stimulant used to treat thrombocytopenia andaplastic anemia)." CONJUGATE D BILIRUBIN IS THE REPLACEMENT ASSAY FOR DIRECTBILIRUBIN. BILIRUBIN UNCONJUGATED (test code = BILUNC) 0.8 mg/dL 0-1.1 N SGOT/AST (test code = AST) 63 U/L 15-46 H SGPT/ALT (test code = ALT) 75 U/L 0-49 H ALKALINE PHOSPHATASE (test code = ALKP) 142 U/L 38-126 H INDEX HEMOLYSIS (test code = HEMINDEX) 23 Index/DL 0-100 N [id number] 06:41:00* Test Item Value Reference Range Interpretation Comme nts MAGNESIUM (test code = MAG) 1.3 mg/dL 1.6-2.3 L CBC W/AUTO [id number] 06:24:00* Test Item Value Reference Range Interpretation Comme nts WHITE BLOOD CELL (test code = WBC) 8.2 x10 3/uL 5.0-12.0 N RED BLOOD CELL (test code = RBC) 4.02 x10 6/uL 4.70-6.10 L HEMOGLOBIN (test code = HGB) 12.3 g/dL 14.0-18.0 L HEMATOCRIT (test code = HCT) 36.3 % 37.0-49.0 L MEAN CELL VOLUME (test code = MCV) 90 fL 80-94 N MEAN CELL HGB (test code = MCH) 30.6 pg 27-31 N MEAN CELL HGB CONCENTRATION (test code = MCHC) 33.9 g/dL 33-37 N RED CELL DISTRIBUTION WIDTH (test code = RDW) 13.3 % 11.5-15.5 N PLATELET COUNT (test code = PLT) 264 x10 3/uL 130-400 N MEAN PLATELET VOLUME (test c ode = MPV) 9.0 fL 9.4-16.4 L NEUTROPHIL % (test code = NT%) 61.2 % 43-65 N IMMATURE GRANULOCYTE % (test code = IG%) 0.5 % 0.0-2.0 N LYMPHOCYTE % (test code = LY%) 21.7 % 20.5-45.5 N MONOCYTE % (test code = MO%) 10.4 % 5.5-11.7 N EOSINOPHIL % (test code = EO%) 5.3 % 0.9-2.9 H BASOPHIL % (test code = BA%) 0.9 % 0.2-1.0 N NUCLEATED RBC % (test code = NRBC%) 0.0 % 0-1.0 N NEUTROPHIL # (test code = NT#) 4.99 x10 3/uL 2.2-4.8 H IMMATURE GRANULOCYTE # (test code = IG#) 0.04 x10 3/uL 0-0.03 H LYMPHOCYTE # (test code = LY#) 1.77 x10 3/uL 1.3-2.9 N MONOCYTE # (test code = MO#) 0.85 x10 3/uL 0.3-0.8 H EOSINOPHIL # (test code = EO#) 0.43 x10 3/uL 0.0-0.2 H BASOPHIL # (test code = BA#) 0.07 x10 3/uL 0.0-0.1 N [id number] 05:54:00* Test Item Value Reference Range Interpretation Comme nts GLUBED (test code = GLUBED) 228 MG/DL 74-106 H [id number] 05:13:00* Test Item Value Reference Range Interpretation Comme nts GLUBED (test code = GLUBED) 121 MG/DL 74-106 H [id number] 04:48:00* Test Item Value Reference Range Interpretation Comme nts GLUBED (test code = GLUBED) 134 MG/DL 74-106 H [id number] 16:02:00* Test Item Value Reference Range Interpretation Comme nts GLUBED (test code = GLUBED) 164 MG/DL 74-106 H [id number] 12:06:00* Test Item Value Reference Range Interpretation Comme nts GLUBED (test code = GLUBED) 176 MG/DL 74-106 H BASIC METABOLIC [id number] 10:47:00* Test Item Value Reference Range Interpretation Comme nts SODIUM (test code = NA) 137 mmol/L 137-145 N POTASSIUM (test code = K) 4.0 mmol/L 3.4-5.0 N CHLORIDE (test code = CL) 101 mmol/L 98-107 N CARBON DIOXIDE (test code = CO2) 32 mmol/L 22-30 H ANION GAP (test code = GAP) 7 GLUCOSE (test code = GLU) 180 mg/dL 74-106 H BLOOD UREA NITROGEN (test code = BUN) 10 mg/dL 9-20 N GLOMERULAR FILTRATION RATE (test code = GFR) 107 mL/min The Glomerular Filtration Rate is a calculated parameterbased on serum Creatinine, patient age and sex. GFR valuesless than 60 mL/min/1.73 square meters are indicative ofChronic Kidney Disease. Values less than 15 mL/min/1.73square meters indicate Kidney failure. The calculation forGFR is based on the CKD-EPI (202) calculation. This formulais race indifferent and is the recommended formula for GFRby the National Kidney Foundation for Adults.The GFR will not calculate if the sex is unknown or if thepatient's age is <18 years. CREATININE (test code = CREAT) < 0.5 mg/dL 0.7-1.3 L CALCIUM (test code = CA) 9.0 mg/dL 8.4-10.2 N INDEX HEMOLYSIS (test code = HEMINDEX) < 15 Index/DL 0-100 N [id number] 10:47:00* Test Item Value Reference Range Interpretation Comme nts MAGNESIUM (test code = MAG) 2.4 mg/dL 1.6-2.3 H - XR CHEST 1 [id number] 10:43:00 [facility] 1950 Sex: M FAX: Prashanth Luna MD R1 [place]: St: ADM FAX: Zander Garcia MD Name: SEYMOUR SNOW [facility] : 1950 Age/S: 72/M [address] Unit #: [id number] Loc: CICU[address] [place] [id number] Phys: Prashanth Luna MD R1 Acct: [id number] Dis Date: Status: ADM IN PHONE #: [phone] Exam Date:10/08/2022 0940 FAX #: [phone] Reason: active tb EXAMS: CPT CODE: [id number] XR CHEST 1 V [id number]: - XR CHEST 1 V HISTORY: active tb LOCATION CODE:H97 TECHNIQUE: Frontal radiograph of the chest. COMPARISON: 10/02/2022. FINDINGS: Normal heart size. Stable cavitary opacity in the perihilar leftupper lobe. Stable areas of atelectasis within the right midlung and left lower lung zone as well as stable small left pleural effusion. No pneumothorax or distinct new airspace consolidation. No pulmonary edema. IMPRESSION: No significant change in the radiographic appearance of the chest since 10/02/2022. . at 1043 Reported and signed by: NEREIDA AYALA CC: Prashanth Luna MD; Zander Gaston MD Technologist: NADIA SOSA Trnilrd Date/Time/By: 10/08/2022 (1043) : By: [email or web address] PAGE 1 Signed Report FAX: Prashanth Luna MD R1 [place]: St: [facility] FAX: Zander Garcia MD Name: SEYMOUR SNOW [facility] : 1950 Age/S: 72/M [address] Unit #: [id number] Loc: [address] [address] Phys: Prashanth Luna MD R1 Acct: [id number] Dis Date: Status: ADM IN PHONE #: [phone] Exam Date: 10/08/2022 0940 FAX #: Reason: active tb EXAMS: CPT CODE: [id number] XR CHEST 1 V [id number] (Continued) Orig Print D/T: S: 10/08/2022 (1046) PAGE 2 Signed ReportGLUBED 2022-10-08 07:54:00* Test Item Value Reference Range Interpretation Comme nts GLUBED (test code = GLUBED) 108 MG/DL 74-106 H [id number] 06:45:00* Test Item Value Reference Range Interpretation Comme nts GLUBED (test code = GLUBED) 155 MG/DL 74-106 H BASIC METABOLIC [id number] 02:23:00* Test Item Value Reference Range Interpretation Comme nts SODIUM (test code = NA) 141 mmol/L 137-145 N POTASSIUM (test code = K) 3.8 mmol/L 3.4-5.0 N CHLORIDE (test code = CL) 104 mmol/L 98-107 N CARBON DIOXIDE (test code = CO2) 30 mmol/L 22-30 N ANION GAP (test code = GAP) 10 GLUCOSE (test code = GLU) 124 mg/dL 74-106 H BLOOD UREA NITROGEN (test code = BUN) 10 mg/dL 9-20 N GLOMERULAR FILTRATION RATE (test code = GFR) 107 mL/min The Glomerular Filtration Rate is a calculated parameterbased on serum Creatinine, patient age and sex. GFR valuesless than 60 mL/min/1.73 square meters are indicative ofChronic Kidney Disease. Values less than 15 mL/min/1.73square meters indicate Kidney failure. The calculation forGFR is based on the CKD-EPI (2020) calculation. This formulais race indifferent and is the recommended formula for GFRby the National Kidney Foundation for Adults.The GFR will not calculate if the sex is unknown or if thepatient's age is <18 years. CREATININE (test code = CREAT) 0.5 mg/dL 0.7-1.3 L CALCIUM (test code = CA) 8.6 mg/dL 8.4-10.2 N INDEX HEMOLYSIS (test code = HEMINDEX) < 15 Index/DL 0-100 N [id number] 02:23:00* Test Item Value Reference Range Interpretation Comme nts MAGNESIUM (test code = MAG) 1.1 mg/dL 1.6-2.3 L CBC W/AUTO [id number] 02:07:00* Test Item Value Reference Range Interpretation Comme nts WHITE BLOOD CELL (test code = WBC) 5.9 x10 3/uL 5.0-12.0 N RED BLOOD CELL (test code = RBC) 3.97 x10 6/uL 4.70-6.10 L HEMOGLOBIN (test code = HGB) 12.1 g/dL 14.0-18.0 L HEMATOCRIT (test code = HCT) 35.6 % 37.0-49.0 L MEAN CELL VOLUME (test code = MCV) 90 fL 80-94 N MEAN CELL HGB (test code = MCH) 30.5 pg 27-31 N MEAN CELL HGB CONCENTRATION (test code = MCHC) 34.0 g/dL 33-37 N RED CELL DISTRIBUTION WIDTH (test code = RDW) 13.6 % 11.5-15.5 N PLATELET COUNT (test code = PLT) 241 x10 3/uL 130-400 N MEAN PLATELET VOLUME (test c ode = MPV) 9.1 fL 9.4-16.4 L NEUTROPHIL % (test code = NT%) 58.8 % 43-65 N IMMATURE GRANULOCYTE % (test code = IG%) 0.5 % 0.0-2.0 N LYMPHOCYTE % (test code = LY%) 21.7 % 20.5-45.5 N MONOCYTE % (test code = MO%) 10.5 % 5.5-11.7 N EOSINOPHIL % (test code = EO%) 7.5 % 0.9-2.9 H BASOPHIL % (test code = BA%) 1.0 % 0.2-1.0 N NUCLEATED RBC % (test code = NRBC%) 0.0 % 0-1.0 N NEUTROPHIL # (test code = NT#) 3.47 x10 3/uL 2.2-4.8 N IMMATURE GRANULOCYTE # (test code = IG#) 0.03 x10 3/uL 0-0.03 N LYMPHOCYTE # (test code = LY#) 1.28 x10 3/uL 1.3-2.9 L MONOCYTE # (test code = MO#) 0.62 x10 3/uL 0.3-0.8 N EOSINOPHIL # (test code = EO#) 0.44 x10 3/uL 0.0-0.2 H BASOPHIL # (test code = BA#) 0.06 x10 3/uL 0.0-0.1 N [id number] 01:32:00* Test Item Value Reference Range Interpretation Comme nts GLUBED (test code = GLUBED) 135 MG/DL 74-106 H [id number] 08:06:00* Test Item Value Reference Range Interpretation Comme nts GLUBED (test code = GLUBED) 111 MG/DL 74-106 H COMPREHENSIVE METABOLIC [id number] 01:15:00* Test Item Value Reference Range Interpretation Comme nts SODIUM (test code = NA) 135 mmol/L 137-145 L POTASSIUM (test code = K) 3.8 mmol/L 3.4-5.0 N CHLORIDE (test code = CL) 104 mmol/L 98-107 N CARBON DIOXIDE (test code = CO2) 32 mmol/L 22-30 H ANION GAP (test code = GAP) 3 GLUCOSE (test code = GLU) 150 mg/dL 74-106 H BLOOD UREA NITROGEN (test code = BUN) 6 mg/dL 9-20 L GLOMERULAR FILTRATION RATE (test code = GFR) 107 mL/min The Glomerular Filtration Rate is a calculated parameterbased on serum Creatinine, patient age and sex. GFR valuesless than 60 mL/min/1.73 square meters are indicative ofChronic Kidney Disease. Values less than 15 mL/min/1.73square meters indicate Kidney failure. The calculation forGFR is based on the CKD-EPI (202) calculation. This formulais race indifferent and is the recommended formula for GFRby the National Kidney Foundation for Adults.The GFR will not calculate if the sex is unknown or if thepatient's age is <18 years. CREATININE (test code = CREAT) < 0.5 mg/dL 0.7-1.3 L TOTAL PROTEIN (test code = PROT) 6.0 g/dL 6.3-8.2 L "A positive bias may occur for patients taking Eltrombopag(a bone marrow stimulant used to treat thrombocytopenia andaplastic anemia)." ALBUMIN (test code = ALB) 2.6 g/dL 3.5-5.0 L CALCIUM (test code = CA) 7.6 mg/dL 8.4-10.2 L BILIRUBIN TOTAL (test code = BILT) 0.8 mg/dL 0.2-1.3 N "A positive b ias may occur for patients taking Eltrombopag(a bone marrow stimulant used to treat thrombocytopenia andaplastic anemia)." BILIRUBIN CONJUGATED (test code = BILCON) 0 mg/dL 0-0.3 N "A positive bias may occur for patients taking Eltrombopag(a bone marrow stimulant used to treat thrombocytopenia andaplastic anemia)." CONJUGATE D BILIRUBIN IS THE REPLACEMENT ASSAY FOR DIRECTBILIRUBIN. BILIRUBIN UNCONJUGATED (test code = BILUNC) 0.6 mg/dL 0-1.1 N SGOT/AST (test code = AST) 166 U/L 15-46 H SGPT/ALT (test code = ALT) 81 U/L 0-49 H ALKALINE PHOSPHATASE (test code = ALKP) 114 U/L 38-126 N INDEX HEMOLYSIS (test code = HEMINDEX) 48 Index/DL 0-100 N [id number] 01:15:00* Test Item Value Reference Range Interpretation Comme nts MAGNESIUM (test code = MAG) 1.8 mg/dL 1.6-2.3 N CBC W/AUTO [id number] 00:55:00* Test Item Value Reference Range Interpretation Comme nts WHITE BLOOD CELL (test code = WBC) 5.3 x10 3/uL 5.0-12.0 N RED BLOOD CELL (test code = RBC) 3.29 x10 6/uL 4.70-6.10 L HEMOGLOBIN (test code = HGB) 10.2 g/dL 14.0-18.0 L HEMATOCRIT (test code = HCT) 29.5 % 37.0-49.0 L MEAN CELL VOLUME (test code = MCV) 90 fL 80-94 N MEAN CELL HGB (test code = MCH) 31.0 pg 27-31 N MEAN CELL HGB CONCENTRATION (test code = MCHC) 34.6 g/dL 33-37 N RED CELL DISTRIBUTION WIDTH (test code = RDW) 13.2 % 11.5-15.5 N PLATELET COUNT (test code = PLT) 197 x10 3/uL 130-400 N MEAN PLATELET VOLUME (test c ode = MPV) 9.3 fL 9.4-16.4 L NEUTROPHIL % (test code = NT%) 67.3 % 43-65 H IMMATURE GRANULOCYTE % (test code = IG%) 0.4 % 0.0-2.0 N LYMPHOCYTE % (test code = LY%) 16.2 % 20.5-45.5 L MONOCYTE % (test code = MO%) 8.6 % 5.5-11.7 N EOSINOPHIL % (test code = EO%) 6.5 % 0.9-2.9 H BASOPHIL % (test code = BA%) 1.0 % 0.2-1.0 N NUCLEATED RBC % (test code = NRBC%) 0.0 % 0-1.0 N NEUTROPHIL # (test code = NT#) 3.55 x10 3/uL 2.2-4.8 N IMMATURE GRANULOCYTE # (test code = IG#) 0.02 x10 3/uL 0-0.03 N LYMPHOCYTE # (test code = LY#) 0.85 x10 3/uL 1.3-2.9 L MONOCYTE # (test code = MO#) 0.45 x10 3/uL 0.3-0.8 N EOSINOPHIL # (test code = EO#) 0.34 x10 3/uL 0.0-0.2 H BASOPHIL # (test code = BA#) 0.05 x10 3/uL 0.0-0.1 N [id number] 00:37:00* Test Item Value Reference Range Interpretation Comme nts GLUBED (test code = GLUBED) 139 MG/DL 74-106 H [id number] 21:59:00* Test Item Value Reference Range Interpretation Comme nts GLUBED (test code = GLUBED) 194 MG/DL 74-106 H [id number] 11:31:00* Test Item Value Reference Range Interpretation Comme nts GLUBED (test code = GLUBED) 108 MG/DL 74-106 H [id number] 11:27:00* Test Item Value Reference Range Interpretation Comme nts MAGNESIUM (test code = MAG) 1.4 mg/dL 1.6-2.3 L POC ARTERIAL BLOOD [id number] 04:26:00* Test Item Value Reference Range Interpretation Comme nts POC ARTERIAL BLOOD GAS PH (test code = POCPHA) 7.48 pH units 7.35-7.45 H POC ARTERIAL BLOOD GAS PCO2 (test code = GITNVN3V) 34.1 mmHg 35-48 L POC TCO2 ARTERIAL (test code = POCTCO2) 24.0 mmol/L 22-29 N POC ARTERIAL BLOOD GAS PO2 (test code = NTCTB6C) 156.1 mmHg 83-108 H POC HCO3 ARTERIAL (test code = MWSDBA9D) 25.1 mmol/L 21-28 N POC BASE EXCESS (test code = POCBEA) 1.6 mmol/L -2-3 N POC O2 SATURATION (test code = POCO2S) 99.5 % 94-98 H ARTERIAL FIO2 (test code = FIO2A) 35 % PaO2/FiO2 (test code = ISX2MJQ3) 446.00 mm/Hg ABG DELIVERY (test code = GUS) Adult Vent ABG VENT MODE (test code = MODEA) PRVC ABG PATIENT RESP RATE (test code = RRPATA) 20 /MIN 12-20 N ABG SITE (test code = SITEA) L Brach ALLENS TEST (test code = ALLENS) N/A SODIUM (POC) (test code = NA/ABG) 132 mmol/L 138-146 L POTASSIUM (POC) (test code = K/ABG) 3.7 mmol/L 3.5-4.5 N CHLORIDE (ARTERIAL) (test code = CL/ABG) 103 MMOL/L 98-108 N POC IONIZED CALCIUM (test code = POCCA) 1.28 MMOL/L 1.15-1.33 N POC GLUCOSE (test code = POCGLU) 87 mg/dL 74-100 N POC SAMPLE SOURCE (test code = POCSAMPLE) Arterial Descript Specimen BASIC METABOLIC [id number] 01:25:00* Test Item Value Reference Range Interpretation Comme nts SODIUM (test code = NA) 135 mmol/L 137-145 L POTASSIUM (test code = K) 4.2 mmol/L 3.4-5.0 N CHLORIDE (test code = CL) 102 mmol/L 98-107 N CARBON DIOXIDE (test code = CO2) 30 mmol/L 22-30 N ANION GAP (test code = GAP) 7 GLUCOSE (test code = GLU) 134 mg/dL 74-106 H BLOOD UREA NITROGEN (test code = BUN) 6 mg/dL 9-20 L GLOMERULAR FILTRATION RATE (test code = GFR) 107 mL/min The Glomerular Filtration Rate is a calculated parameterbased on serum Creatinine, patient age and sex. GFR valuesless than 60 mL/min/1.73 square meters are indicative ofChronic Kidney Disease. Values less than 15 mL/min/1.73square meters indicate Kidney failure. The calculation forGFR is based on the CKD-EPI (2020) calculation. This formulais race indifferent and is the recommended formula for GFRby the National Kidney Foundation for Adults.The GFR will not calculate if the sex is unknown or if thepatient's age is <18 years. CREATININE (test code = CREAT) < 0.5 mg/dL 0.7-1.3 L CALCIUM (test code = CA) 8.5 mg/dL 8.4-10.2 N INDEX HEMOLYSIS (test code = HEMINDEX) 34 Index/DL 0-100 N [id number] 01:25:00* Test Item Value Reference Range Interpretation Comme nts MAGNESIUM (test code = MAG) 1.3 mg/dL 1.6-2.3 L CBC W/AUTO [id number] 01:01:00* Test Item Value Reference Range Interpretation Comme nts WHITE BLOOD CELL (test code = WBC) 5.3 x10 3/uL 5.0-12.0 N RED BLOOD CELL (test code = RBC) 4.06 x10 6/uL 4.70-6.10 L HEMOGLOBIN (test code = HGB) 12.5 g/dL 14.0-18.0 L HEMATOCRIT (test code = HCT) 35.8 % 37.0-49.0 L MEAN CELL VOLUME (test code = MCV) 88 fL 80-94 N MEAN CELL HGB (test code = MCH) 30.8 pg 27-31 N MEAN CELL HGB CONCENTRATION (test code = MCHC) 34.9 g/dL 33-37 N RED CELL DISTRIBUTION WIDTH (test code = RDW) 13.2 % 11.5-15.5 N PLATELET COUNT (test code = PLT) 231 x10 3/uL 130-400 N MEAN PLATELET VOLUME (test c ode = MPV) 9.2 fL 9.4-16.4 L NEUTROPHIL % (test code = NT%) 65.6 % 43-65 H IMMATURE GRANULOCYTE % (test code = IG%) 0.4 % 0.0-2.0 N LYMPHOCYTE % (test code = LY%) 18.6 % 20.5-45.5 L MONOCYTE % (test code = MO%) 8.3 % 5.5-11.7 N EOSINOPHIL % (test code = EO%) 6.2 % 0.9-2.9 H BASOPHIL % (test code = BA%) 0.9 % 0.2-1.0 N NUCLEATED RBC % (test code = NRBC%) 0.0 % 0-1.0 N NEUTROPHIL # (test code = NT#) 3.49 x10 3/uL 2.2-4.8 N IMMATURE GRANULOCYTE # (test code = IG#) 0.02 x10 3/uL 0-0.03 N LYMPHOCYTE # (test code = LY#) 0.99 x10 3/uL 1.3-2.9 L MONOCYTE # (test code = MO#) 0.44 x10 3/uL 0.3-0.8 N EOSINOPHIL # (test code = EO#) 0.33 x10 3/uL 0.0-0.2 H BASOPHIL # (test code = BA#) 0.05 x10 3/uL 0.0-0.1 N [id number] 12:16:00* Test Item Value Reference Range Interpretation Comme nts POTASSIUM (test code = K) 3.3 mmol/L 3.4-5.0 L [id number] 12:16:00* Test Item Value Reference Range Interpretation Comme nts MAGNESIUM (test code = MAG) 1.1 mg/dL 1.6-2.3 L BASIC METABOLIC [id number] 23:51:00* Test Item Value Reference Range Interpretation Comme nts SODIUM (test code = NA) 139 mmol/L 137-145 N POTASSIUM (test code = K) 3.6 mmol/L 3.4-5.0 N CHLORIDE (test code = CL) 107 mmol/L 98-107 N CARBON DIOXIDE (test code = CO2) 30 mmol/L 22-30 N ANION GAP (test code = GAP) 6 GLUCOSE (test code = GLU) 111 mg/dL 74-106 H BLOOD UREA NITROGEN (test code = BUN) 9 mg/dL 9-20 N GLOMERULAR FILTRATION RATE (test code = GFR) 107 mL/min The Glomerular Filtration Rate is a calculated parameterbased on serum Creatinine, patient age and sex. GFR valuesless than 60 mL/min/1.73 square meters are indicative ofChronic Kidney Disease. Values less than 15 mL/min/1.73square meters indicate Kidney failure. The calculation forGFR is based on the CKD-EPI (2020) calculation. This formulais race indifferent and is the recommended formula for GFRby the National Kidney Foundation for Adults.The GFR will not calculate if the sex is unknown or if thepatient's age is <18 years. CREATININE (test code = CREAT) < 0.5 mg/dL 0.7-1.3 L CALCIUM (test code = CA) 8.0 mg/dL 8.4-10.2 L INDEX HEMOLYSIS (test code = HEMINDEX) 32 Index/DL 0-100 N [id number] 23:51:00* Test Item Value Reference Range Interpretation Comme nts MAGNESIUM (test code = MAG) 0.9 mg/dL 1.6-2.3 L CBC W/AUTO [id number] 23:34:00* Test Item Value Reference Range Interpretation Comme nts WHITE BLOOD CELL (test code = WBC) 5.5 x10 3/uL 5.0-12.0 N RED BLOOD CELL (test code = RBC) 3.55 x10 6/uL 4.70-6.10 L HEMOGLOBIN (test code = HGB) 10.9 g/dL 14.0-18.0 L HEMATOCRIT (test code = HCT) 31.3 % 37.0-49.0 L MEAN CELL VOLUME (test code = MCV) 88 fL 80-94 N MEAN CELL HGB (test code = MCH) 30.7 pg 27-31 N MEAN CELL HGB CONCENTRATION (test code = MCHC) 34.8 g/dL 33-37 N RED CELL DISTRIBUTION WIDTH (test code = RDW) 13.3 % 11.5-15.5 N PLATELET COUNT (test code = PLT) 200 x10 3/uL 130-400 N MEAN PLATELET VOLUME (test c ode = MPV) 9.3 fL 9.4-16.4 L NEUTROPHIL % (test code = NT%) 60.9 % 43-65 N IMMATURE GRANULOCYTE % (test code = IG%) 0.2 % 0.0-2.0 N LYMPHOCYTE % (test code = LY%) 20.7 % 20.5-45.5 N MONOCYTE % (test code = MO%) 10.2 % 5.5-11.7 N EOSINOPHIL % (test code = EO%) 6.9 % 0.9-2.9 H BASOPHIL % (test code = BA%) 1.1 % 0.2-1.0 H NUCLEATED RBC % (test code = NRBC%) 0.0 % 0-1.0 N NEUTROPHIL # (test code = NT#) 3.35 x10 3/uL 2.2-4.8 N IMMATURE GRANULOCYTE # (test code = IG#) 0.01 x10 3/uL 0-0.03 N LYMPHOCYTE # (test code = LY#) 1.14 x10 3/uL 1.3-2.9 L MONOCYTE # (test code = MO#) 0.56 x10 3/uL 0.3-0.8 N EOSINOPHIL # (test code = EO#) 0.38 x10 3/uL 0.0-0.2 H BASOPHIL # (test code = BA#) 0.06 x10 3/uL 0.0-0.1 N [id number] 19:22:00* Test Item Value Reference Range Interpretation Comme nts GLUBED (test code = GLUBED) 151 MG/DL 74-106 H [id number] 12:10:00* Test Item Value Reference Range Interpretation Comme nts POTASSIUM (test code = K) 3.8 mmol/L 3.4-5.0 N [id number] 12:10:00* Test Item Value Reference Range Interpretation Comme nts MAGNESIUM (test code = MAG) 1.9 mg/dL 1.6-2.3 N CARDIAC ENZYMES [id number] 12:10:00* Test Item Value Reference Range Interpretation Comme nts TROPONIN-I (test code = TROPI) < 0.012 ng/mL 0.012-0.033 L Please be advised of the updated reference ranges for the new Chemistry instrumentation. VITROS TROPONIN I CRITERIANORMAL PATIENT W/O CIRCULATING TNI: 0.012-0.033 ng/mLAMI DIAGNOSTIC CUTOFF: >/= 0.120 ng/mL~~~~~~~~~~~~~~~~~~~~~~ ~~~~~~~~~~~~~~~~~~~~~~~~~~~ ~~~~~~~~~~The use of serial sampling and testing protocol is arecommended practice.An elevated troponin level alone is often not sufficient fordiagnosis of myocardial infarction. Troponin results obtained by different assays may vary.Evaluation of the extent of myocardial damage based onincrease of troponin would be valid only if similarmethodology is used.~~~~~~~~~~~~~~~~~~~~~~ ~~~~~~~~~~~~~~~~~~~~~~~~~~~ ~~~~~~~~~~ A POSITIVE BIAS MAY OCCUR FOR PATIENTS TAKING BIOTIN SUPPLEMENTS~~~~~~~~~~~~~~~~ ~~~~~~~~~~~~~~~~~~~~~~~~~~~ ~~~~~~~~~~~~~~~~ [id number] 07:51:00* Test Item Value Reference Range Interpretation Comme nts GLUBED (test code = GLUBED) 96 MG/DL 74-106 N BASIC METABOLIC [id number] 05:02:00* Test Item Value Reference Range Interpretation Comme nts SODIUM (test code = NA) 137 mmol/L 137-145 N POTASSIUM (test code = K) 3.3 mmol/L 3.4-5.0 L CHLORIDE (test code = CL) 103 mmol/L 98-107 N CARBON DIOXIDE (test code = CO2) 31 mmol/L 22-30 H ANION GAP (test code = GAP) 6 GLUCOSE (test code = GLU) 108 mg/dL 74-106 H BLOOD UREA NITROGEN (test code = BUN) 9 mg/dL 9-20 N GLOMERULAR FILTRATION RATE (test code = GFR) 107 mL/min The Glomerular Filtration Rate is a calculated parameterbased on serum Creatinine, patient age and sex. GFR valuesless than 60 mL/min/1.73 square meters are indicative ofChronic Kidney Disease. Values less than 15 mL/min/1.73square meters indicate Kidney failure. The calculation forGFR is based on the CKD-EPI (2020) calculation. This formulais race indifferent and is the recommended formula for GFRby the National Kidney Foundation for Adults.The GFR will not calculate if the sex is unknown or if thepatient's age is <18 years. CREATININE (test code = CREAT) 0.5 mg/dL 0.7-1.3 L CALCIUM (test code = CA) 8.6 mg/dL 8.4-10.2 N INDEX HEMOLYSIS (test code = HEMINDEX) < 15 Index/DL 0-100 N [id number] 05:02:00* Test Item Value Reference Range Interpretation Comme nts MAGNESIUM (test code = MAG) 1.1 mg/dL 1.6-2.3 L CBC W/AUTO [id number] 04:32:00* Test Item Value Reference Range Interpretation Comme nts WHITE BLOOD CELL (test code = WBC) 5.2 x10 3/uL 5.0-12.0 N RED BLOOD CELL (test code = RBC) 3.90 x10 6/uL 4.70-6.10 L HEMOGLOBIN (test code = HGB) 11.9 g/dL 14.0-18.0 L HEMATOCRIT (test code = HCT) 34.8 % 37.0-49.0 L MEAN CELL VOLUME (test code = MCV) 89 fL 80-94 N MEAN CELL HGB (test code = MCH) 30.5 pg 27-31 N MEAN CELL HGB CONCENTRATION (test code = MCHC) 34.2 g/dL 33-37 N RED CELL DISTRIBUTION WIDTH (test code = RDW) 13.0 % 11.5-15.5 N PLATELET COUNT (test code = PLT) 221 x10 3/uL 130-400 N MEAN PLATELET VOLUME (test c ode = MPV) 9.6 fL 9.4-16.4 N NEUTROPHIL % (test code = NT%) 71.0 % 43-65 H IMMATURE GRANULOCYTE % (test code = IG%) 0.2 % 0.0-2.0 N LYMPHOCYTE % (test code = LY%) 14.8 % 20.5-45.5 L MONOCYTE % (test code = MO%) 6.7 % 5.5-11.7 N EOSINOPHIL % (test code = EO%) 6.3 % 0.9-2.9 H BASOPHIL % (test code = BA%) 1.0 % 0.2-1.0 N NUCLEATED RBC % (test code = NRBC%) 0.0 % 0-1.0 N NEUTROPHIL # (test code = NT#) 3.71 x10 3/uL 2.2-4.8 N IMMATURE GRANULOCYTE # (test code = IG#) 0.01 x10 3/uL 0-0.03 N LYMPHOCYTE # (test code = LY#) 0.77 x10 3/uL 1.3-2.9 L MONOCYTE # (test code = MO#) 0.35 x10 3/uL 0.3-0.8 N EOSINOPHIL # (test code = EO#) 0.33 x10 3/uL 0.0-0.2 H BASOPHIL # (test code = BA#) 0.05 x10 3/uL 0.0-0.1 N [id number] 10:19:00* Test Item Value Reference Range Interpretation Comme nts MAGNESIUM (test code = MAG) 1.5 mg/dL 1.6-2.3 L [id number] 06:45:00* Test Item Value Reference Range Interpretation Comme nts MAGNESIUM (test code = MAG) 1.8 mg/dL 1.6-2.3 N COMPREHENSIVE METABOLIC [id number] 03:24:00* Test Item Value Reference Range Interpretation Comme nts SODIUM (test code = NA) 135 mmol/L 137-145 L POTASSIUM (test code = K) 3.7 mmol/L 3.4-5.0 N CHLORIDE (test code = CL) 104 mmol/L 98-107 N CARBON DIOXIDE (test code = CO2) 32 mmol/L 22-30 H ANION GAP (test code = GAP) 2 GLUCOSE (test code = GLU) 101 mg/dL 74-106 N BLOOD UREA NITROGEN (test code = BUN) 12 mg/dL 9-20 N GLOMERULAR FILTRATION RATE (test code = GFR) 107 mL/min The Glomerular Filtration Rate is a calculated parameterbased on serum Creatinine, patient age and sex. GFR valuesless than 60 mL/min/1.73 square meters are indicative ofChronic Kidney Disease. Values less than 15 mL/min/1.73square meters indicate Kidney failure. The calculation forGFR is based on the CKD-EPI (2020) calculation. This formulais race indifferent and is the recommended formula for GFRby the National Kidney Foundation for Adults.The GFR will not calculate if the sex is unknown or if thepatient's age is <18 years. CREATININE (test code = CREAT) 0.5 mg/dL 0.7-1.3 L TOTAL PROTEIN (test code = PROT) 6.0 g/dL 6.3-8.2 L "A positive bias may occur for patients taking Eltrombopag(a bone marrow stimulant used to treat thrombocytopenia andaplastic anemia)." ALBUMIN (test code = ALB) 2.6 g/dL 3.5-5.0 L CALCIUM (test code = CA) 8.3 mg/dL 8.4-10.2 L BILIRUBIN TOTAL (test code = BILT) 0.7 mg/dL 0.2-1.3 N "A positive b ias may occur for patients taking Eltrombopag(a bone marrow stimulant used to treat thrombocytopenia andaplastic anemia)." BILIRUBIN CONJUGATED (test code = BILCON) 0 mg/dL 0-0.3 N "A positive bias may occur for patients taking Eltrombopag(a bone marrow stimulant used to treat thrombocytopenia andaplastic anemia)." CONJUGATE D BILIRUBIN IS THE REPLACEMENT ASSAY FOR DIRECTBILIRUBIN. BILIRUBIN UNCONJUGATED (test code = BILUNC) 0.5 mg/dL 0-1.1 N SGOT/AST (test code = AST) 41 U/L 15-46 N SGPT/ALT (test code = ALT) 20 U/L 0-49 N ALKALINE PHOSPHATASE (test code = ALKP) 94 U/L 38-126 N INDEX HEMOLYSIS (test code = HEMINDEX) < 15 Index/DL 0-100 N [id number] 03:24:00* Test Item Value Reference Range Interpretation Comme nts MAGNESIUM (test code = MAG) 0.9 mg/dL 1.6-2.3 L CBC W/AUTO [id number] 03:05:00* Test Item Value Reference Range Interpretation Comme nts WHITE BLOOD CELL (test code = WBC) 6.3 x10 3/uL 5.0-12.0 N RED BLOOD CELL (test code = RBC) 3.48 x10 6/uL 4.70-6.10 L HEMOGLOBIN (test code = HGB) 10.8 g/dL 14.0-18.0 L HEMATOCRIT (test code = HCT) 31.1 % 37.0-49.0 L MEAN CELL VOLUME (test code = MCV) 89 fL 80-94 N MEAN CELL HGB (test code = MCH) 31.0 pg 27-31 N MEAN CELL HGB CONCENTRATION (test code = MCHC) 34.7 g/dL 33-37 N RED CELL DISTRIBUTION WIDTH (test code = RDW) 13.0 % 11.5-15.5 N PLATELET COUNT (test code = PLT) 192 x10 3/uL 130-400 N MEAN PLATELET VOLUME (test c ode = MPV) 9.4 fL 9.4-16.4 N NEUTROPHIL % (test code = NT%) 69.8 % 43-65 H IMMATURE GRANULOCYTE % (test code = IG%) 0.5 % 0.0-2.0 N LYMPHOCYTE % (test code = LY%) 15.6 % 20.5-45.5 L MONOCYTE % (test code = MO%) 8.0 % 5.5-11.7 N EOSINOPHIL % (test code = EO%) 5.5 % 0.9-2.9 H BASOPHIL % (test code = BA%) 0.6 % 0.2-1.0 N NUCLEATED RBC % (test code = NRBC%) 0.0 % 0-1.0 N NEUTROPHIL # (test code = NT#) 4.42 x10 3/uL 2.2-4.8 N IMMATURE GRANULOCYTE # (test code = IG#) 0.03 x10 3/uL 0-0.03 N LYMPHOCYTE # (test code = LY#) 0.99 x10 3/uL 1.3-2.9 L MONOCYTE # (test code = MO#) 0.51 x10 3/uL 0.3-0.8 N EOSINOPHIL # (test code = EO#) 0.35 x10 3/uL 0.0-0.2 H BASOPHIL # (test code = BA#) 0.04 x10 3/uL 0.0-0.1 N [id number] 22:22:00* Test Item Value Reference Range Interpretation Comme nts MAGNESIUM (test code = MAG) 1.0 mg/dL 1.6-2.3 L - XR CHEST 1 [id number] 22:22:00 [facility] : 1950 Sex: M FAX: Manasa Gastelum MD [phone] [place]: St: ADM FAX: Carol Jimenez MD R Name: SEYMOUR SNOW [facility] : 1950 Age/S: 72/M [address] Unit #: [id number] Loc: C.ICU0 [place] [address] Phys: Carol Jimenez MD R3 Acct: [id number] Dis Date: Status: ADM IN PHONE #: [phone] Exam Date: 10/02/20221937 FAX #: [phone] Reason: increase O2 requirement EXAMS: CPT CODE: [id number] XR CHEST 1 V 99428 Dictation location: H3 Chest x-ray exam, portable erect AP frontal projection, one view, 10/02/22 Comparison exam: Chest x-ray exam of 09/27/22 CLINICAL HISTORY: Increased O2 requirement Cavitary lesion again seen in the left upper lobe. More extensive consolidation seen a layla this left upper lobe of concern possible evolving pneumonia. There is stability of mild thickening along the right minor fissure. No pneumothorax. Probable small left-sided pleural effusion alsonow noted. IMPRESSION: Persistence of cavitary lesion in the left upper lobe with both infectious and neoplastic entities in the differential. More extensive opacification/consolidation in the left upper lobe of concern for possible evolving pneumonia Evolving small left-sided pleural effusion at 2222 Reported and signedby: Kimmie Sung MD CC: Manasa Dimas MD; Carol Jimenez MD Technologist: Jose Yeung Trnscrd Date/Time/By: 10/02/2022 (2221) : By: [email or web address] PAGE 1 Signed Report FAX: Manasa Gastelum MD [phone] [place]: St: ADM FAX: Carol Jimenez MD R Name: SEYMOUR SNOW [facility] : 1950 Age/S: 72/M [address] Unit #: [id number] Loc: C.ICU0 [place] [address] Phys: Carol Jimenez MD R3 Acct: [id number] Dis Date: Status: ADM IN PHONE #: [phone] Exam Date: 10/02/20221937 FAX #: [phone] Reason: increase O2 requirement EXAMS: CPT CODE: [id number] XR CHEST 1 V 71488(Continued) Orig Print D/T: S: 10/02/2022 (222) PAGE 2 Signed Report [id number] 20:47:00* Test Item Value Reference Range Interpretation Comme nts GLUBED (test code = GLUBED) 128 MG/DL 74-106 H [id number] 08:57:00* Test Item Value Reference Range Interpretation Comme nts GLUBED (test code = GLUBED) 99 MG/DL 74-106 N COMPREHENSIVE METABOLIC [id number] 01:17:00* Test Item Value Reference Range Interpretation Comme nts SODIUM (test code = NA) 135 mmol/L 137-145 L POTASSIUM (test code = K) 4.2 mmol/L 3.4-5.0 N CHLORIDE (test code = CL) 104 mmol/L 98-107 N CARBON DIOXIDE (test code = CO2) 30 mmol/L 22-30 N ANION GAP (test code = GAP) 5 GLUCOSE (test code = GLU) 123 mg/dL 74-106 H BLOOD UREA NITROGEN (test code = BUN) 14 mg/dL 9-20 N GLOMERULAR FILTRATION RATE (test code = GFR) 93 mL/min The Glomerular Filtration Rate is a calculated parameterbased on serum Creatinine, patient age and sex. GFR valuesless than 60 mL/min/1.73 square meters are indicative ofChronic Kidney Disease. Values less than 15 mL/min/1.73square meters indicate Kidney failure. The calculation forGFR is based on the CKD-EPI (202) calculation. This formulais race indifferent and is the recommended formula for GFRby the National Kidney Foundation for Adults.The GFR will not calculate if the sex is unknown or if thepatient's age is <18 years. CREATININE (test code = CREAT) 0.8 mg/dL 0.7-1.3 N TOTAL PROTEIN (test code = PROT) 6.1 g/dL 6.3-8.2 L "A positive bias may occur for patients taking Eltrombopag(a bone marrow stimulant used to treat thrombocytopenia andaplastic anemia)." ALBUMIN (test code = ALB) 2.7 g/dL 3.5-5.0 L CALCIUM (test code = CA) 8.3 mg/dL 8.4-10.2 L BILIRUBIN TOTAL (test code = BILT) 0.9 mg/dL 0.2-1.3 N "A positive b ias may occur for patients taking Eltrombopag(a bone marrow stimulant used to treat thrombocytopenia andaplastic anemia)." BILIRUBIN CONJUGATED (test code = BILCON) 0 mg/dL 0-0.3 N "A positive bias may occur for patients taking Eltrombopag(a bone marrow stimulant used to treat thrombocytopenia andaplastic anemia)." CONJUGATE D BILIRUBIN IS THE REPLACEMENT ASSAY FOR DIRECTBILIRUBIN. BILIRUBIN UNCONJUGATED (test code = BILUNC) 0.7 mg/dL 0-1.1 N SGOT/AST (test code = AST) 33 U/L 15-46 N SGPT/ALT (test code = ALT) 21 U/L 0-49 N ALKALINE PHOSPHATASE (test code = ALKP) 97 U/L 38-126 N INDEX HEMOLYSIS (test code = HEMINDEX) < 15 Index/DL 0-100 N [id number] 01:17:00* Test Item Value Reference Range Interpretation Comme nts MAGNESIUM (test code = MAG) 1.5 mg/dL 1.6-2.3 L CARDIAC ENZYMES [id number] 01:17:00* Test Item Value Reference Range Interpretation Comme nts TROPONIN-I (test code = TROPI) < 0.012 ng/mL 0.012-0.033 L Please be advised of the updated reference ranges for the new Chemistry instrumentation. VITROS TROPONIN I CRITERIANORMAL PATIENT W/O CIRCULATING TNI: 0.012-0.033 ng/mLAMI DIAGNOSTIC CUTOFF: >/= 0.120 ng/mL~~~~~~~~~~~~~~~~~~~~~~ ~~~~~~~~~~~~~~~~~~~~~~~~~~~ ~~~~~~~~~~The use of serial sampling and testing protocol is arecommended practice.An elevated troponin level alone is often not sufficient fordiagnosis of myocardial infarction. Troponin results obtained by different assays may vary.Evaluation of the extent of myocardial damage based onincrease of troponin would be valid only if similarmethodology is used.~~~~~~~~~~~~~~~~~~~~~~ ~~~~~~~~~~~~~~~~~~~~~~~~~~~ ~~~~~~~~~~ A POSITIVE BIAS MAY OCCUR FOR PATIENTS TAKING BIOTIN SUPPLEMENTS~~~~~~~~~~~~~~~~ ~~~~~~~~~~~~~~~~~~~~~~~~~~~ ~~~~~~~~~~~~~~~~ [id number] 00:46:00* Test Item Value Reference Range Interpretation Comme nts GLUBED (test code = GLUBED) 140 MG/DL 74-106 H CBC W/AUTO [id number] 00:34:00* Test Item Value Reference Range Interpretation Comme nts WHITE BLOOD CELL (test code = WBC) 8.7 x10 3/uL 5.0-12.0 N RED BLOOD CELL (test code = RBC) 3.63 x10 6/uL 4.70-6.10 L HEMOGLOBIN (test code = HGB) 11.1 g/dL 14.0-18.0 L HEMATOCRIT (test code = HCT) 33.0 % 37.0-49.0 L MEAN CELL VOLUME (test code = MCV) 91 fL 80-94 N MEAN CELL HGB (test code = MCH) 30.6 pg 27-31 N MEAN CELL HGB CONCENTRATION (test code = MCHC) 33.6 g/dL 33-37 N RED CELL DISTRIBUTION WIDTH (test code = RDW) 13.3 % 11.5-15.5 N PLATELET COUNT (test code = PLT) 206 x10 3/uL 130-400 N MEAN PLATELET VOLUME (test c ode = MPV) 9.4 fL 9.4-16.4 N NEUTROPHIL % (test code = NT%) 73.7 % 43-65 H IMMATURE GRANULOCYTE % (test code = IG%) 0.3 % 0.0-2.0 N LYMPHOCYTE % (test code = LY%) 12.1 % 20.5-45.5 L MONOCYTE % (test code = MO%) 9.7 % 5.5-11.7 N EOSINOPHIL % (test code = EO%) 3.6 % 0.9-2.9 H BASOPHIL % (test code = BA%) 0.6 % 0.2-1.0 N NUCLEATED RBC % (test code = NRBC%) 0.0 % 0-1.0 N NEUTROPHIL # (test code = NT#) 6.43 x10 3/uL 2.2-4.8 H IMMATURE GRANULOCYTE # (test code = IG#) 0.03 x10 3/uL 0-0.03 N LYMPHOCYTE # (test code = LY#) 1.06 x10 3/uL 1.3-2.9 L MONOCYTE # (test code = MO#) 0.85 x10 3/uL 0.3-0.8 H EOSINOPHIL # (test code = EO#) 0.31 x10 3/uL 0.0-0.2 H BASOPHIL # (test code = BA#) 0.05 x10 3/uL 0.0-0.1 N [id number] 20:40:00* Test Item Value Reference Range Interpretation Comme nts GLUBED (test code = GLUBED) 154 MG/DL 74-106 H CARDIAC ENZYMES [id number] 18:00:00* Test Item Value Reference Range Interpretation Comme nts TROPONIN-I (test code = TROPI) < 0.012 ng/mL 0.012-0.033 L Please be advised of the updated reference ranges for the new Chemistry instrumentation. VITROS TROPONIN I CRITERIANORMAL PATIENT W/O CIRCULATING TNI: 0.012-0.033 ng/mLAMI DIAGNOSTIC CUTOFF: >/= 0.120 ng/mL~~~~~~~~~~~~~~~~~~~~~~ ~~~~~~~~~~~~~~~~~~~~~~~~~~~ ~~~~~~~~~~The use of serial sampling and testing protocol is arecommended practice.An elevated troponin level alone is often not sufficient fordiagnosis of myocardial infarction. Troponin results obtained by different assays may vary.Evaluation of the extent of myocardial damage based onincrease of troponin would be valid only if similarmethodology is used.~~~~~~~~~~~~~~~~~~~~~~ ~~~~~~~~~~~~~~~~~~~~~~~~~~~ ~~~~~~~~~~ A POSITIVE BIAS MAY OCCUR FOR PATIENTS TAKING BIOTIN SUPPLEMENTS~~~~~~~~~~~~~~~~ ~~~~~~~~~~~~~~~~~~~~~~~~~~~ ~~~~~~~~~~~~~~~~ Spec Comments: Cancel third set if POC Troponin completed in EDLACTIC ACID 2022-10-01 17:50:00* Test Item Value Reference Range Interpretation Comme nts LACTIC ACID (test code = LACT) 1.0 mmol/L 0.7-2.0 N COMPREHENSIVE METABOLIC [id number] 16:06:00* Test Item Value Reference Range Interpretation Comme nts SODIUM (test code = NA) 137 mmol/L 137-145 N POTASSIUM (test code = K) 4.6 mmol/L 3.4-5.0 N CHLORIDE (test code = CL) 104 mmol/L 98-107 N CARBON DIOXIDE (test code = CO2) 28 mmol/L 22-30 N ANION GAP (test code = GAP) 10 GLUCOSE (test code = GLU) 139 mg/dL 74-106 H BLOOD UREA NITROGEN (test code = BUN) 14 mg/dL 9-20 N GLOMERULAR FILTRATION RATE (test code = GFR) 93 mL/min The Glomerular Filtration Rate is a calculated parameterbased on serum Creatinine, patient age and sex. GFR valuesless than 60 mL/min/1.73 square meters are indicative ofChronic Kidney Disease. Values less than 15 mL/min/1.73square meters indicate Kidney failure. The calculation forGFR is based on the CKD-EPI (2020) calculation. This formulais race indifferent and is the recommended formula for GFRby the National Kidney Foundation for Adults.The GFR will not calculate if the sex is unknown or if thepatient's age is <18 years. CREATININE (test code = CREAT) 0.8 mg/dL 0.7-1.3 N TOTAL PROTEIN (test code = PROT) 6.0 g/dL 6.3-8.2 L "A positive bias may occur for patients taking Eltrombopag(a bone marrow stimulant used to treat thrombocytopenia andaplastic anemia)." ALBUMIN (test code = ALB) 2.6 g/dL 3.5-5.0 L CALCIUM (test code = CA) 8.4 mg/dL 8.4-10.2 N BILIRUBIN TOTAL (test code = BILT) 1.4 mg/dL 0.2-1.3 H "A positive b ias may occur for patients taking Eltrombopag(a bone marrow stimulant used to treat thrombocytopenia andaplastic anemia)." BILIRUBIN CONJUGATED (test code = BILCON) 0 mg/dL 0-0.3 N "A positive bias may occur for patients taking Eltrombopag(a bone marrow stimulant used to treat thrombocytopenia andaplastic anemia)." CONJUGATE D BILIRUBIN IS THE REPLACEMENT ASSAY FOR DIRECTBILIRUBIN. BILIRUBIN UNCONJUGATED (test code = BILUNC) 0.6 mg/dL 0-1.1 N SGOT/AST (test code = AST) 49 U/L 15-46 H SGPT/ALT (test code = ALT) 24 U/L 0-49 N ALKALINE PHOSPHATASE (test code = ALKP) 99 U/L 38-126 N INDEX HEMOLYSIS (test code = HEMINDEX) 81 Index/DL 0-100 N [id number] 16:06:00* Test Item Value Reference Range Interpretation Comme nts PHOSPHOROUS (test code = PHOS) 4.1 mg/dL 2.5-4.5 N [id number] 16:06:00* Test Item Value Reference Range Interpretation Comme nts MAGNESIUM (test code = MAG) 1.5 mg/dL 1.6-2.3 L HGBA1C - GLYCOSYLATED [id number] 16:01:00* Test Item Value Reference Range Interpretation Comme nts GLYCOSYLATED HEMOGLOBIN (HA1C) (test code = GLYHGB) 7.9 % 0-5.9 H Current nisha delines recommend a treatment goal of <7% fordiabetic patients. A1c may be overestimated in diabeticpatients exhibiting poor control and who are alsoheterozygous or homozygous for HgbS or HgbC. Totalglycohemoglobin is a better indicator of diabetic control inpatients with these hemoglobin variants. [id number] 15:57:00* Test Item Value Reference Range Interpretation Comme nts GLUBED (test code = GLUBED) 171 MG/DL 74-106 H [id number] 15:04:00* Test Item Value Reference Range Interpretation Comme nts AMMONIA (test code = AMM) 27 umol/L 9-30 N PROTHROMBIN [id number] 14:53:00* Test Item Value Reference Range Interpretation Comme nts PROTHROMBIN TIME PATIENT (test code = PTP) 21.9 SECONDS 9.2-12.1 H INTERNATIONAL NORMAL RATIO (test code = INR) 2.0 The INR is to be used only for monitoring ORAL ANTICOAGULANTTHERAPY. Indication INR Value1. Prophylaxis/treatment of: Venous Thrombosis, Pulmonary Embolism 2.0 - 3.02. Prevention of systemic embolism from: Tissue heart valves 2.0 - 3.0 Acute myocardial infarction (to present systemic embolism)* 2.0 - 3.0 Valvular heart disease 2.0 - 3.0 Atrial fibrillation 2.0 - 3.03. Mechanical prosthetic valves (high risk) 2.5 - 3.5 * If oral anticoagulant therapy is elected to preventrecurrent myocardial infarction, an INR of 2.5-3.5 isrecommended, consistent with Food and Drug Administrationrecommen dations. CBC W/AUTO [id number] 14:42:00* Test Item Value Reference Range Interpretation Comme nts WHITE BLOOD CELL (test code = WBC) 10.1 x10 3/uL 5.0-12.0 N RED BLOOD CELL (test code = RBC) 3.79 x10 6/uL 4.70-6.10 L HEMOGLOBIN (test code = HGB) 11.8 g/dL 14.0-18.0 L HEMATOCRIT (test code = HCT) 34.1 % 37.0-49.0 L MEAN CELL VOLUME (test code = MCV) 90 fL 80-94 N MEAN CELL HGB (test code = MCH) 31.1 pg 27-31 H MEAN CELL HGB CONCENTRATION (test code = MCHC) 34.6 g/dL 33-37 N RED CELL DISTRIBUTION WIDTH (test code = RDW) 13.3 % 11.5-15.5 N PLATELET COUNT (test code = PLT) 191 x10 3/uL 130-400 N MEAN PLATELET VOLUME (test c ode = MPV) 9.3 fL 9.4-16.4 L NEUTROPHIL % (test code = NT%) 79.2 % 43-65 H IMMATURE GRANULOCYTE % (test code = IG%) 0.4 % 0.0-2.0 N LYMPHOCYTE % (test code = LY%) 7.9 % 20.5-45.5 L MONOCYTE % (test code = MO%) 9.3 % 5.5-11.7 N EOSINOPHIL % (test code = EO%) 2.5 % 0.9-2.9 N BASOPHIL % (test code = BA%) 0.7 % 0.2-1.0 N NUCLEATED RBC % (test code = NRBC%) 0.0 % 0-1.0 N NEUTROPHIL # (test code = NT#) 8.02 x10 3/uL 2.2-4.8 H IMMATURE GRANULOCYTE # (test code = IG#) 0.04 x10 3/uL 0-0.03 H LYMPHOCYTE # (test code = LY#) 0.80 x10 3/uL 1.3-2.9 L MONOCYTE # (test code = MO#) 0.94 x10 3/uL 0.3-0.8 H EOSINOPHIL # (test code = EO#) 0.25 x10 3/uL 0.0-0.2 H BASOPHIL # (test code = BA#) 0.07 x10 3/uL 0.0-0.1 N [id number] 11:50:00* Test Item Value Reference Range Interpretation Comme nts GLUBED (test code = GLUBED) 159 MG/DL 74-106 H - XR SHOULDER 2 + V [id number] 11:44:00 [facility] SARAH[facility] VELASQUEZ : 1950 Sex: M FAX: Solange Domínguez MD [place]: St: ADM Name: SEYMOUR SNOW [facility] : 1950 Age/S: 72/M [address] Unit #: [id number] Loc: C.[address]T [place] [address] Phys: Solange Domínguez MD Acct: [id number] Dis Date: Status: ADM IN PHONE #: [phone] Exam Date: 10/01/2022 1125 FAX #: [phone] Reason: PAIN EXAMS: CPT CODE: [id number] XR SHOULDER 2 + [place] RT [id number] EXAM: Right shoulder seriesINDICATION: PAIN, ADMITTING DIAGNOSIS: Enterocolitis, TB [place] [facility] [place] COMPARISON: None TECHNIQUE: Multiple view study of the Right shoulder including AP, axillary and oblique views was evaluated. 2 + views. Total 3 views DISCUSSION: Limited views of the right lung demonstrate patchy density involving the right basilar region suggests atelectasis and or infiltrate. There is anatomic alignment of the humeral head within the glenoid fossa. There is no evidence of fracture. There is no dislocation. The AC joint reveal Normal appearance. IMPRESSION: 1. Right basilare atelectasis and or infiltrative process. 2. No fracture or dislocation of the right shoulder. at 1144 Reported and signed by: Jake Grant MD CC: Solange Domínguez MD Technologist: NADIA Feldman Trnscrd Date/Time/By: 10/01/2022 (1144) : By: Katt PAGE 1Signed Report FAX: Solange Domínguez MD [place]: St: ADM Name: SEYMOUR SNOW [facility] : 1950 Age/S: 72/M [address] Unit #: [id number] Loc: C.[address] [place] [address] Phys: Solange Domínguez MD Acct: [id number] Dis Date: Status: ADM IN PHONE #: [phone] Exam Date: 10/01/2022 1125 FAX #: [phone] Reason: PAIN EXAMS: CPT CODE: [id number] XR SHOULDER 2 + V RT [id number] (Continued) Orig Print D/T: S: 10/01/2022 (6205) PAGE 2 Signed ReportCOMPREHENSIVE METABOLIC [id number] 06:20:00* Test Item Value Reference Range Interpretation Comme nts SODIUM (test code = NA) 136 mmol/L 137-145 L POTASSIUM (test code = K) 3.9 mmol/L 3.4-5.0 N CHLORIDE (test code = CL) 102 mmol/L 98-107 N CARBON DIOXIDE (test code = CO2) 30 mmol/L 22-30 N ANION GAP (test code = GAP) 7 GLUCOSE (test code = GLU) 109 mg/dL 74-106 H BLOOD UREA NITROGEN (test code = BUN) 13 mg/dL 9-20 N GLOMERULAR FILTRATION RATE (test code = GFR) 79 mL/min The Glomerular Filtration Rate is a calculated parameterbased on serum Creatinine, patient age and sex. GFR valuesless than 60 mL/min/1.73 square meters are indicative ofChronic Kidney Disease. Values less than 15 mL/min/1.73square meters indicate Kidney failure. The calculation forGFR is based on the CKD-EPI (202) calculation. This formulais race indifferent and is the recommended formula for GFRby the National Kidney Foundation for Adults.The GFR will not calculate if the sex is unknown or if thepatient's age is <18 years. CREATININE (test code = CREAT) 1.0 mg/dL 0.7-1.3 N TOTAL PROTEIN (test code = PROT) 6.0 g/dL 6.3-8.2 L "A positive bias may occur for patients taking Eltrombopag(a bone marrow stimulant used to treat thrombocytopenia andaplastic anemia)." ALBUMIN (test code = ALB) 2.6 g/dL 3.5-5.0 L CALCIUM (test code = CA) 8.4 mg/dL 8.4-10.2 N BILIRUBIN TOTAL (test code = BILT) 2.0 mg/dL 0.2-1.3 H "A positive b ias may occur for patients taking Eltrombopag(a bone marrow stimulant used to treat thrombocytopenia andaplastic anemia)." BILIRUBIN CONJUGATED (test code = BILCON) 0 mg/dL 0-0.3 N "A positive bias may occur for patients taking Eltrombopag(a bone marrow stimulant used to treat thrombocytopenia andaplastic anemia)." CONJUGATE D BILIRUBIN IS THE REPLACEMENT ASSAY FOR DIRECTBILIRUBIN. BILIRUBIN UNCONJUGATED (test code = BILUNC) 1.1 mg/dL 0-1.1 N SGOT/AST (test code = AST) 37 U/L 15-46 N SGPT/ALT (test code = ALT) 23 U/L 0-49 N ALKALINE PHOSPHATASE (test code = ALKP) 110 U/L 38-126 N INDEX HEMOLYSIS (test code = HEMINDEX) < 15 Index/DL 0-100 N [id number] 06:20:00* Test Item Value Reference Range Interpretation Comme nts MAGNESIUM (test code = MAG) 1.7 mg/dL 1.6-2.3 N CBC W/AUTO [id number] 06:12:00* Test Item Value Reference Range Interpretation Comme nts WHITE BLOOD CELL (test code = WBC) 10.3 x10 3/uL 5.0-12.0 N RED BLOOD CELL (test code = RBC) 3.25 x10 6/uL 4.70-6.10 L HEMOGLOBIN (test code = HGB) 10.2 g/dL 14.0-18.0 L HEMATOCRIT (test code = HCT) 29.6 % 37.0-49.0 L MEAN CELL VOLUME (test code = MCV) 91 fL 80-94 N MEAN CELL HGB (test code = MCH) 31.4 pg 27-31 H MEAN CELL HGB CONCENTRATION (test code = MCHC) 34.5 g/dL 33-37 N RED CELL DISTRIBUTION WIDTH (test code = RDW) 13.4 % 11.5-15.5 N PLATELET COUNT (test code = PLT) 221 x10 3/uL 130-400 N MEAN PLATELET VOLUME (test c ode = MPV) 9.6 fL 9.4-16.4 N NEUTROPHIL % (test code = NT%) 75.8 % 43-65 H IMMATURE GRANULOCYTE % (test code = IG%) 0.4 % 0.0-2.0 N LYMPHOCYTE % (test code = LY%) 10.9 % 20.5-45.5 L MONOCYTE % (test code = MO%) 9.5 % 5.5-11.7 N EOSINOPHIL % (test code = EO%) 2.8 % 0.9-2.9 N BASOPHIL % (test code = BA%) 0.6 % 0.2-1.0 N NUCLEATED RBC % (test code = NRBC%) 0.0 % 0-1.0 N NEUTROPHIL # (test code = NT#) 7.78 x10 3/uL 2.2-4.8 H IMMATURE GRANULOCYTE # (test code = IG#) 0.04 x10 3/uL 0-0.03 H LYMPHOCYTE # (test code = LY#) 1.12 x10 3/uL 1.3-2.9 L MONOCYTE # (test code = MO#) 0.98 x10 3/uL 0.3-0.8 H EOSINOPHIL # (test code = EO#) 0.29 x10 3/uL 0.0-0.2 H BASOPHIL # (test code = BA#) 0.06 x10 3/uL 0.0-0.1 N [id number] 04:51:00* Test Item Value Reference Range Interpretation Comme nts GLUBED (test code = GLUBED) 100 MG/DL 74-106 N [id number] 20:21:00* Test Item Value Reference Range Interpretation Comme nts GLUBED (test code = GLUBED) 189 MG/DL 74-106 H [id number] 16:26:00* Test Item Value Reference Range Interpretation Comme nts GLUBED (test code = GLUBED) 152 MG/DL 74-106 H [id number] 12:30:00* Test Item Value Reference Range Interpretation Comme nts GLUBED (test code = GLUBED) 151 MG/DL 74-106 H [id number] 04:59:00* Test Item Value Reference Range Interpretation Comme nts GLUBED (test code = GLUBED) 120 MG/DL 74-106 H COMPREHENSIVE METABOLIC [id number] 04:46:00* Test Item Value Reference Range Interpretation Comme nts SODIUM (test code = NA) 135 mmol/L 137-145 L POTASSIUM (test code = K) 3.1 mmol/L 3.4-5.0 L CHLORIDE (test code = CL) 102 mmol/L 98-107 N CARBON DIOXIDE (test code = CO2) 29 mmol/L 22-30 N ANION GAP (test code = GAP) 7 GLUCOSE (test code = GLU) 128 mg/dL 74-106 H BLOOD UREA NITROGEN (test code = BUN) 6 mg/dL 9-20 L GLOMERULAR FILTRATION RATE (test code = GFR) 107 mL/min The Glomerular Filtration Rate is a calculated parameterbased on serum Creatinine, patient age and sex. GFR valuesless than 60 mL/min/1.73 square meters are indicative ofChronic Kidney Disease. Values less than 15 mL/min/1.73square meters indicate Kidney failure. The calculation forGFR is based on the CKD-EPI (2020) calculation. This formulais race indifferent and is the recommended formula for GFRby the National Kidney Foundation for Adults.The GFR will not calculate if the sex is unknown or if thepatient's age is <18 years. CREATININE (test code = CREAT) 0.5 mg/dL 0.7-1.3 L TOTAL PROTEIN (test code = PROT) 6.3 g/dL 6.3-8.2 N "A positive bias may occur for patients taking Eltrombopag(a bone marrow stimulant used to treat thrombocytopenia andaplastic anemia)." ALBUMIN (test code = ALB) 2.8 g/dL 3.5-5.0 L CALCIUM (test code = CA) 7.9 mg/dL 8.4-10.2 L BILIRUBIN TOTAL (test code = BILT) 1.1 mg/dL 0.2-1.3 N "A positive b ias may occur for patients taking Eltrombopag(a bone marrow stimulant used to treat thrombocytopenia andaplastic anemia)." BILIRUBIN CONJUGATED (test code = BILCON) 0 mg/dL 0-0.3 N "A positive bias may occur for patients taking Eltrombopag(a bone marrow stimulant used to treat thrombocytopenia andaplastic anemia)." CONJUGATE D BILIRUBIN IS THE REPLACEMENT ASSAY FOR DIRECTBILIRUBIN. BILIRUBIN UNCONJUGATED (test code = BILUNC) 0.9 mg/dL 0-1.1 N SGOT/AST (test code = AST) 40 U/L 15-46 N SGPT/ALT (test code = ALT) 24 U/L 0-49 N ALKALINE PHOSPHATASE (test code = ALKP) 98 U/L 38-126 N INDEX HEMOLYSIS (test code = HEMINDEX) < 15 Index/DL 0-100 N [id number] 04:46:00* Test Item Value Reference Range Interpretation Comme nts MAGNESIUM (test code = MAG) 1.0 mg/dL 1.6-2.3 L CBC W/AUTO [id number] 04:35:00* Test Item Value Reference Range Interpretation Comme nts WHITE BLOOD CELL (test code = WBC) 9.2 x10 3/uL 5.0-12.0 N RED BLOOD CELL (test code = RBC) 3.98 x10 6/uL 4.70-6.10 L HEMOGLOBIN (test code = HGB) 12.4 g/dL 14.0-18.0 L HEMATOCRIT (test code = HCT) 36.4 % 37.0-49.0 L MEAN CELL VOLUME (test code = MCV) 92 fL 80-94 N MEAN CELL HGB (test code = MCH) 31.2 pg 27-31 H MEAN CELL HGB CONCENTRATION (test code = MCHC) 34.1 g/dL 33-37 N RED CELL DISTRIBUTION WIDTH (test code = RDW) 13.1 % 11.5-15.5 N PLATELET COUNT (test code = PLT) 225 x10 3/uL 130-400 N MEAN PLATELET VOLUME (test c ode = MPV) 9.5 fL 9.4-16.4 N NEUTROPHIL % (test code = NT%) 68.1 % 43-65 H IMMATURE GRANULOCYTE % (test code = IG%) 0.2 % 0.0-2.0 N LYMPHOCYTE % (test code = LY%) 16.7 % 20.5-45.5 L MONOCYTE % (test code = MO%) 10.8 % 5.5-11.7 N EOSINOPHIL % (test code = EO%) 3.4 % 0.9-2.9 H BASOPHIL % (test code = BA%) 0.8 % 0.2-1.0 N NUCLEATED RBC % (test code = NRBC%) 0.0 % 0-1.0 N NEUTROPHIL # (test code = NT#) 6.29 x10 3/uL 2.2-4.8 H IMMATURE GRANULOCYTE # (test code = IG#) 0.02 x10 3/uL 0-0.03 N LYMPHOCYTE # (test code = LY#) 1.54 x10 3/uL 1.3-2.9 N MONOCYTE # (test code = MO#) 1.00 x10 3/uL 0.3-0.8 H EOSINOPHIL # (test code = EO#) 0.31 x10 3/uL 0.0-0.2 H BASOPHIL # (test code = BA#) 0.07 x10 3/uL 0.0-0.1 N [id number] 20:23:00* Test Item Value Reference Range Interpretation Comme nts GLUBED (test code = GLUBED) 113 MG/DL 74-106 H [id number] 17:14:00* Test Item Value Reference Range Interpretation Comme nts GLUBED (test code = GLUBED) 155 MG/DL 74-106 H [id number] 12:40:00* Test Item Value Reference Range Interpretation Comme nts GLUBED (test code = GLUBED) 120 MG/DL 74-106 H COMPREHENSIVE METABOLIC [id number] 05:44:00* Test Item Value Reference Range Interpretation Comme nts SODIUM (test code = NA) 136 mmol/L 137-145 L POTASSIUM (test code = K) 3.4 mmol/L 3.4-5.0 N CHLORIDE (test code = CL) 103 mmol/L 98-107 N CARBON DIOXIDE (test code = CO2) 31 mmol/L 22-30 H ANION GAP (test code = GAP) 6 GLUCOSE (test code = GLU) 125 mg/dL 74-106 H BLOOD UREA NITROGEN (test code = BUN) 10 mg/dL 9-20 N GLOMERULAR FILTRATION RATE (test code = GFR) 107 mL/min The Glomerular Filtration Rate is a calculated parameterbased on serum Creatinine, patient age and sex. GFR valuesless than 60 mL/min/1.73 square meters are indicative ofChronic Kidney Disease. Values less than 15 mL/min/1.73square meters indicate Kidney failure. The calculation forGFR is based on the CKD-EPI (202) calculation. This formulais race indifferent and is the recommended formula for GFRby the National Kidney Foundation for Adults.The GFR will not calculate if the sex is unknown or if thepatient's age is <18 years. CREATININE (test code = CREAT) 0.5 mg/dL 0.7-1.3 L TOTAL PROTEIN (test code = PROT) 6.3 g/dL 6.3-8.2 N "A positive bias may occur for patients taking Eltrombopag(a bone marrow stimulant used to treat thrombocytopenia andaplastic anemia)." ALBUMIN (test code = ALB) 2.9 g/dL 3.5-5.0 L CALCIUM (test code = CA) 8.1 mg/dL 8.4-10.2 L BILIRUBIN TOTAL (test code = BILT) 1.1 mg/dL 0.2-1.3 N "A positive b ias may occur for patients taking Eltrombopag(a bone marrow stimulant used to treat thrombocytopenia andaplastic anemia)." BILIRUBIN CONJUGATED (test code = BILCON) 0 mg/dL 0-0.3 N "A positive bias may occur for patients taking Eltrombopag(a bone marrow stimulant used to treat thrombocytopenia andaplastic anemia)." CONJUGATE D BILIRUBIN IS THE REPLACEMENT ASSAY FOR DIRECTBILIRUBIN. BILIRUBIN UNCONJUGATED (test code = BILUNC) 0.8 mg/dL 0-1.1 N SGOT/AST (test code = AST) 45 U/L 15-46 N SGPT/ALT (test code = ALT) 24 U/L 0-49 N ALKALINE PHOSPHATASE (test code = ALKP) 99 U/L 38-126 N INDEX HEMOLYSIS (test code = HEMINDEX) < 15 Index/DL 0-100 N [id number] 05:44:00* Test Item Value Reference Range Interpretation Comme nts MAGNESIUM (test code = MAG) 1.0 mg/dL 1.6-2.3 L CBC W/AUTO [id number] 05:19:00* Test Item Value Reference Range Interpretation Comme nts WHITE BLOOD CELL (test code = WBC) 8.4 x10 3/uL 5.0-12.0 N RED BLOOD CELL (test code = RBC) 3.83 x10 6/uL 4.70-6.10 L HEMOGLOBIN (test code = HGB) 11.8 g/dL 14.0-18.0 L HEMATOCRIT (test code = HCT) 35.0 % 37.0-49.0 L MEAN CELL VOLUME (test code = MCV) 91 fL 80-94 N MEAN CELL HGB (test code = MCH) 30.8 pg 27-31 N MEAN CELL HGB CONCENTRATION (test code = MCHC) 33.7 g/dL 33-37 N RED CELL DISTRIBUTION WIDTH (test code = RDW) 13.2 % 11.5-15.5 N PLATELET COUNT (test code = PLT) 229 x10 3/uL 130-400 N MEAN PLATELET VOLUME (test c ode = MPV) 9.5 fL 9.4-16.4 N NEUTROPHIL % (test code = NT%) 62.9 % 43-65 N IMMATURE GRANULOCYTE % (test code = IG%) 0.2 % 0.0-2.0 N LYMPHOCYTE % (test code = LY%) 19.7 % 20.5-45.5 L MONOCYTE % (test code = MO%) 11.9 % 5.5-11.7 H EOSINOPHIL % (test code = EO%) 4.5 % 0.9-2.9 H BASOPHIL % (test code = BA%) 0.8 % 0.2-1.0 N NUCLEATED RBC % (test code = NRBC%) 0.0 % 0-1.0 N NEUTROPHIL # (test code = NT#) 5.27 x10 3/uL 2.2-4.8 H IMMATURE GRANULOCYTE # (test code = IG#) 0.02 x10 3/uL 0-0.03 N LYMPHOCYTE # (test code = LY#) 1.65 x10 3/uL 1.3-2.9 N MONOCYTE # (test code = MO#) 1.00 x10 3/uL 0.3-0.8 H EOSINOPHIL # (test code = EO#) 0.38 x10 3/uL 0.0-0.2 H BASOPHIL # (test code = BA#) 0.07 x10 3/uL 0.0-0.1 N [id number] 05:09:00* Test Item Value Reference Range Interpretation Comme nts GLUBED (test code = GLUBED) 148 MG/DL 74-106 H [id number] 21:10:00* Test Item Value Reference Range Interpretation Comme nts GLUBED (test code = GLUBED) 150 MG/DL 74-106 H COMPREHENSIVE METABOLIC [id number] 07:00:00* Test Item Value Reference Range Interpretation Comme nts SODIUM (test code = NA) 138 mmol/L 137-145 N POTASSIUM (test code = K) 3.3 mmol/L 3.4-5.0 L CHLORIDE (test code = CL) 102 mmol/L 98-107 N CARBON DIOXIDE (test code = CO2) 29 mmol/L 22-30 N ANION GAP (test code = GAP) 10 GLUCOSE (test code = GLU) 133 mg/dL 74-106 H BLOOD UREA NITROGEN (test code = BUN) 13 mg/dL 9-20 N GLOMERULAR FILTRATION RATE (test code = GFR) 107 mL/min The Glomerular Filtration Rate is a calculated parameterbased on serum Creatinine, patient age and sex. GFR valuesless than 60 mL/min/1.73 square meters are indicative ofChronic Kidney Disease. Values less than 15 mL/min/1.73square meters indicate Kidney failure. The calculation forGFR is based on the CKD-EPI (2020) calculation. This formulais race indifferent and is the recommended formula for GFRby the National Kidney Foundation for Adults.The GFR will not calculate if the sex is unknown or if thepatient's age is <18 years. CREATININE (test code = CREAT) 0.5 mg/dL 0.7-1.3 L TOTAL PROTEIN (test code = PROT) 6.3 g/dL 6.3-8.2 N "A positive bias may occur for patients taking Eltrombopag(a bone marrow stimulant used to treat thrombocytopenia andaplastic anemia)." ALBUMIN (test code = ALB) 2.9 g/dL 3.5-5.0 L CALCIUM (test code = CA) 8.9 mg/dL 8.4-10.2 N BILIRUBIN TOTAL (test code = BILT) 0.8 mg/dL 0.2-1.3 N "A positive b ias may occur for patients taking Eltrombopag(a bone marrow stimulant used to treat thrombocytopenia andaplastic anemia)." BILIRUBIN CONJUGATED (test code = BILCON) 0 mg/dL 0-0.3 N "A positive bias may occur for patients taking Eltrombopag(a bone marrow stimulant used to treat thrombocytopenia andaplastic anemia)." CONJUGATE D BILIRUBIN IS THE REPLACEMENT ASSAY FOR DIRECTBILIRUBIN. BILIRUBIN UNCONJUGATED (test code = BILUNC) 0.2 mg/dL 0-1.1 N SGOT/AST (test code = AST) 48 U/L 15-46 H SGPT/ALT (test code = ALT) 23 U/L 0-49 N ALKALINE PHOSPHATASE (test code = ALKP) 122 U/L 38-126 N INDEX HEMOLYSIS (test code = HEMINDEX) < 15 Index/DL 0-100 N [id number] 07:00:00* Test Item Value Reference Range Interpretation Comme nts MAGNESIUM (test code = MAG) 1.1 mg/dL 1.6-2.3 L [id number] 06:49:00* Test Item Value Reference Range Interpretation Comme nts ALCOHOL (test code = ALC) < 10 mg/dL <10 ~~~~~~~~~~~~~~~~ ~~~~~~ ~~~~~~~~~~~~~~~~~~~~~~ ~~~~~~ RESULTS ARE TO BE USED FOR MEDICAL PURPOSES ONLY.FOR LEGAL PURPOSES THE SPECIMEN MUST BE COLLECTED BY A CHAINOF CUSTODY. LEGAL TESTING IS NOT PERFORMED BY THIS FACILITY. ~~~~~~~~~~~~~~~~~~~~~~ ~~~~~~~~~~~~~~~~~~~~~~ ~~~~~~ CBC W/AUTO [id number] 06:08:00* Test Item Value Reference Range Interpretation Comme nts WHITE BLOOD CELL (test code = WBC) 7.7 x10 3/uL 5.0-12.0 N RED BLOOD CELL (test code = RBC) 4.03 x10 6/uL 4.70-6.10 L HEMOGLOBIN (test code = HGB) 12.4 g/dL 14.0-18.0 L HEMATOCRIT (test code = HCT) 36.9 % 37.0-49.0 L MEAN CELL VOLUME (test code = MCV) 92 fL 80-94 N MEAN CELL HGB (test code = MCH) 30.8 pg 27-31 N MEAN CELL HGB CONCENTRATION (test code = MCHC) 33.6 g/dL 33-37 N RED CELL DISTRIBUTION WIDTH (test code = RDW) 13.3 % 11.5-15.5 N PLATELET COUNT (test code = PLT) 259 x10 3/uL 130-400 N MEAN PLATELET VOLUME (test c ode = MPV) 9.5 fL 9.4-16.4 N NEUTROPHIL % (test code = NT%) 62.2 % 43-65 N IMMATURE GRANULOCYTE % (test code = IG%) 0.4 % 0.0-2.0 N LYMPHOCYTE % (test code = LY%) 20.5 % 20.5-45.5 N MONOCYTE % (test code = MO%) 10.4 % 5.5-11.7 N EOSINOPHIL % (test code = EO%) 5.7 % 0.9-2.9 H BASOPHIL % (test code = BA%) 0.8 % 0.2-1.0 N NUCLEATED RBC % (test code = NRBC%) 0.0 % 0-1.0 N NEUTROPHIL # (test code = NT#) 4.78 x10 3/uL 2.2-4.8 N IMMATURE GRANULOCYTE # (test code = IG#) 0.03 x10 3/uL 0-0.03 N LYMPHOCYTE # (test code = LY#) 1.58 x10 3/uL 1.3-2.9 N MONOCYTE # (test code = MO#) 0.80 x10 3/uL 0.3-0.8 N EOSINOPHIL # (test code = EO#) 0.44 x10 3/uL 0.0-0.2 H BASOPHIL # (test code = BA#) 0.06 x10 3/uL 0.0-0.1 N LIPID PROFILE (CORONARY RISK)2022-09-27 23:41:00* Test Item Value Reference Range Interpretation Comme nts TRIGLYCERIDES (test code = TRIG) 150 mg/dL TRIGLYCERIDES REFERENCE RANGE:Normal: <150 mg/dLBorderline High: 150-199 mg/dLHigh: 200-499 mg/dLVery High: >=500 mg/dL CHOLESTEROL (test code = CHOL) 171 mg/dL CHOLESTEROL REFERENCE RANGE:DESIRABLE: < 200 mg/dLBORDERLINE: 200-239 mg/dLHIGH: >=240 mg/dL HDL CHOLESTEROL (test code = HDL) 28 mg/dL 40-59 L LIPOPROTEIN LDL (test code = LDLC) 104.37 mg/dL 32-99 H CORONARY RISK FACTOR (test code = RISK) 6.11 CHOL/HDL RISK MALE: 1/2 AVG 3.43 FEMALE: 1/2 AVG 3.27 AVG 4.97 AVG 4.44 2X AVG 9.55 2X AVG 7.05 3X AVG 23.39 3X AVG 11.04~~~~~~~~~~~~~~~ ~~~~~~~~~~~~~~~~~~~~ ~~~~~~~~~~~~~~~~~~~~ ~~~~~National Cholesterol Education (NCEP) Guidelines:~~~~~~~~~ ~~~~~~~~~~~~~~~~~~~~ ~~~~~~~~~~~~~~~~~~~~ ~~~~~~~~~~~ HDL Cholesterol<40mg/d L: HDL Cholesterol (Major risk factor for CHD)>60mg/dL: HDL Cholesterol (Negative risk factor for CHD)40-59mg/dL: Borderline Risk LDL Cholesterol<100mg/ dL: Desirable LDL-C [id number] mg/dL: Borderline High Risk LDL-C hbdiqhknkpmjt201-392 mg/dL: High risk LDL-C concentration HDL-LDL Cholesterol is affected by a number of factors suchas smoking, age and sex.~~~~~~~~~~~~~~~~ ~~~~~~~~~~~~~~~~~~~~ ~~~~~~~~~~~~~~~~~~~~ ~~~~ UA RFLX MICR CULT IF [id number] 17:47:00* Test Item Value Reference Range Interpretation Comme nts UA COLOR (test code = COLU) Tasneem Yellow A UA APPEARANCE (test code = APPU) Slightly-Cloudy Clear UA GLUCOSE DIPSTICK (test code = DGLUU) Negative Negative UA BILIRUBIN DIPSTICK (test code = BILU) Negative Negative UA KETONE DIPSTICK (test code = KETU) Negative mg/dL Negative UA SPECIFIC GRAVITY (test code = SGU) 1.010 <1.030 UA BLOOD DIPSTICK (test code = BUTCH) Negative Negative UA PH DIPSTICK (test code = ECHO) 7.0 5.0-8.0 UA PROTEIN DIPSTICK (test code = PROU) NEGATIVE mg/dL Negative UA UROBILINOGEN DIPSTICK (test code = URO) Negative mg/dL Negative UA NITRITE DIPSTICK (test code = SHANDA) Negative Negative UA LEUKOCYTE ESTERASE DIPSTICK (test code = LEUU) 3+ Negative A UA WBC (test code = WBCUR) 6-10 /HPF See_Comment A <10 WBC/HPF = PYURIA ABSENT URINE CULTURE NOT INDICATED [Automated message] The system which generated this result transmitted reference range: <4-5. The reference range was not used to interpret this result as normal/abnormal. UA RBC (test code = RBCU) 0-3 /HPF See_Comment [Automated message] The system which generated this result transmitted reference range: <4-5. The reference range was not used to interpret this result as normal/abnormal. UA BACTERIA (test code = BACU) Rare /HPF None-Rare UA SQUAMOUS CELLS (test code = SQU) 0-5 (RARE) /HPF See_Comment [Automated message] The system which generated this result transmitted reference range: 0-5 (RARE). The reference range was not used to interpret this result as normal/abnormal. UA HYALINE CAST (test code = HYALU) 6-10 /LPF See_Comment A [Automated message] The system which generated this result transmitted reference range: <4-5. The reference range was not used to interpret this result as normal/abnormal. Indication for culture: RiskForSepsis-no oth srcSOURCE OF URINE: CLEAN CATCH QUANTIFERON TB [id number] 17:28:00* Test Item Value Reference Range Interpretation Comme nts QFT INCUBATION (test code = QFTI) QUANTIFERON TEST (test code = QFTT) Negative QFT POSITIVE CRITERIA (test code = QFTPOS) QFT TB AG VALUE (test code = QFTTB) QFT NIL VALUE (test code = QFTNIL) IU/mL QFT MITOGEN VALUE (test code = QFTMIT) IU/mL QFT TB AG MINUS NIL VALUE (t est code = QFTTBAG) HAS HIV TESTING CONSENT FORM BEEN SIGNED? YAB HIV 1 17:28:00* Test Item Value Reference Range Interpretation Comme nts AB HIV 1 2 (test code = RSQ06KH) NEGATIVE NEGATIVE HAS HIV TESTING CONSENT FORM BEEN SIGNED? [id number] 16:40:00* Test Item Value Reference Range Interpretation Comme nts PHOSPHOROUS (test code = PHOS) 3.3 mg/dL 2.5-4.5 N [id number] 16:40:00* Test Item Value Reference Range Interpretation Comme nts MAGNESIUM (test code = MAG) 1.0 mg/dL 1.6-2.3 L [id number] 16:39:00* Test Item Value Reference Range Interpretation Comme nts LIPASE (test code = LIP) 371 U/L 23-300 H - XR CHEST 1 [id number] 16:07:00 [facility] 1950 Sex: M FAX: Joyce Pryor [place]: St: REG Name: SEYMOUR SNOW [facility] : 1950 Age/S: 72/M [address] Unit #: [id number] Loc: [place] [address] Phys: Joyce Pryor [employer] Acct: [id number] Dis Date: Status: REG ER PHONE #: [phone] Exam Date: 09/27/2022 1546 FAX #: [phone] Reason: CODE SEPSIS, RECENT TB DX EXAMS: CPT CODE: [id number] XR CHEST 1 V 60707 EXAM: - XR CHEST 1 V HISTORY: CODE SEPSIS, RECENT TB DX TECHNIQUE: AP radiograph the chest was obtained. COMPARISON: 10/11/2019 FINDINGS: Areas of consolidation perhaps cavitary area measuring 5 cm in left upper lobe. Tiny amount of fluid and/or pleural thickening in the right minor fissure. Poor inspiratory effort with vascular crowding seen. Possible left retrocardiac area of consolidation/scarring. IMPRESSION: I centimeter consolidation in the left upper lobe perhaps associated with cavitary area. Follow-up CT scan of the chest is recommended. Leftward cardiac consolidation/scarring. Tiny amount of pleural fluid and/or pleural thickening in the right minor fissure again noted. Dictation/locationcode: H-94 at 1607 Reported and signed by: Coleman Saldaña MD CC: Joyce Pryor NP Technologist: DEANDRE Garzard Date/Time/By: 09/27/2022 (8556) : By: [id number] PAGE 1 Signed Report FAX: Joyce Pryor [place]: St: REG -- Name: SEYMOUR SNOW [facility] : 1950 Age/S: 72/M [address] Unit #: [id number]: [place] [address] Phys: Joyce Pryor NP Acct: [id number] Dis Date: Status: REG ER PHONE #: [phone] Exam Date: 09/27/2022 5033 FAX #: [phone] Reason: CODE SEPSIS, RECENT TB DX EXAMS: CPT CODE: [id number] XR CHEST 1 V 80189 (Continued) Orig Print D/T: S: 09/27/2022 (1610) PAGE 2 Signed ReportBASIC METABOLIC PANEL 2022-09-27 15:44:00* Test Item Value Reference Range Interpretation Comme nts SODIUM (test code = NA) 139 mmol/L 137-145 N POTASSIUM (test code = K) 3.8 mmol/L 3.4-5.0 N CHLORIDE (test code = CL) 98 mmol/L 98-107 N CARBON DIOXIDE (test code = CO2) 32 mmol/L 22-30 H ANION GAP (test code = GAP) 13 GLUCOSE (test code = GLU) 178 mg/dL 74-106 H BLOOD UREA NITROGEN (test code = BUN) 17 mg/dL 9-20 N GLOMERULAR FILTRATION RATE (test code = GFR) 90 mL/min The Glomerular Filtration Rate is a calculated parameterbased on serum Creatinine, patient age and sex. GFR valuesless than 60 mL/min/1.73 square meters are indicative ofChronic Kidney Disease. Values less than 15 mL/min/1.73square meters indicate Kidney failure. The calculation forGFR is based on the CKD-EPI (2020) calculation. This formulais race indifferent and is the recommended formula for GFRby the National Kidney Foundation for Adults.The GFR will not calculate if the sex is unknown or if thepatient's age is <18 years. CREATININE (test code = CREAT) 0.9 mg/dL 0.7-1.3 N CALCIUM (test code = CA) 9.6 mg/dL 8.4-10.2 N INDEX HEMOLYSIS (test code = HEMINDEX) < 15 Index/DL 0-100 N LIVER FUNCTION [id number] 15:44:00* Test Item Value Reference Range Interpretation Comme nts TOTAL PROTEIN (test code = PROT) 7.4 g/dL 6.3-8.2 N "A positive bias may occur for patients taking Eltrombopag(a bone marrow stimulant used to treat thrombocytopenia andaplastic anemia)." ALBUMIN (test code = ALB) 3.6 g/dL 3.5-5.0 N BILIRUBIN TOTAL (test code = BILT) 1.2 mg/dL 0.2-1.3 N "A positive b ias may occur for patients taking Eltrombopag(a bone marrow stimulant used to treat thrombocytopenia andaplastic anemia)." BILIRUBIN CONJUGATED (test code = BILCON) 0 mg/dL 0-0.3 N "A positive bias may occur for patients taking Eltrombopag(a bone marrow stimulant used to treat thrombocytopenia andaplastic anemia)." CONJUGATED BILIRUBIN IS THE REPLACEMENT ASSAY FOR DIRECTBILIRUBIN. BILIRUBIN UNCONJUGATED (test code = BILUNC) 0.6 mg/dL 0-1.1 N SGOT/AST (test code = AST) 43 U/L 15-46 N SGPT/ALT (test code = ALT) 25 U/L 0-49 N ALKALINE PHOSPHATASE (test code = ALKP) 156 U/L 38-126 H [id number] 15:44:00* Test Item Value Reference Range Interpretation Comme nts TROPONIN-I (test code = TROPI) < 0.012 ng/mL 0.012-0.033 L Please be advised of the updated reference ranges for the new Chemistry instrumentation. VITROS TROPONIN I CRITERIANORMAL PATIENT W/O CIRCULATING TNI: 0.012-0.033 ng/mLAMI DIAGNOSTIC CUTOFF: >/= 0.120 ng/mL~~~~~~~~~~~~~~~~~~~~~~ ~~~~~~~~~~~~~~~~~~~~~~~~~~~ ~~~~~~~~~~The use of serial sampling and testing protocol is arecommended practice.An elevated troponin level alone is often not sufficient fordiagnosis of myocardial infarction. Troponin results obtained by different assays may vary.Evaluation of the extent of myocardial damage based onincrease of troponin would be valid only if similarmethodology is used.~~~~~~~~~~~~~~~~~~~~~~ ~~~~~~~~~~~~~~~~~~~~~~~~~~~ ~~~~~~~~~~ A POSITIVE BIAS MAY OCCUR FOR PATIENTS TAKING BIOTIN SUPPLEMENTS~~~~~~~~~~~~~~~~ ~~~~~~~~~~~~~~~~~~~~~~~~~~~ ~~~~~~~~~~~~~~~~ LACTIC [id number] 15:36:00* Test Item Value Reference Range Interpretation Comme nts LACTIC ACID (test code = LACT) 1.9 mmol/L 0.7-2.0 N CBC W/AUTO [id number] 15:16:00* Test Item Value Reference Range Interpretation Comme nts WHITE BLOOD CELL (test code = WBC) 10.1 x10 3/uL 5.0-12.0 N RED BLOOD CELL (test code = RBC) 4.63 x10 6/uL 4.70-6.10 L HEMOGLOBIN (test code = HGB) 14.1 g/dL 14.0-18.0 N HEMATOCRIT (test code = HCT) 41.4 % 37.0-49.0 N MEAN CELL VOLUME (test code = MCV) 89 fL 80-94 N MEAN CELL HGB (test code = MCH) 30.5 pg 27-31 N MEAN CELL HGB CONCENTRATION (test code = MCHC) 34.1 g/dL 33-37 N RED CELL DISTRIBUTION WIDTH (test code = RDW) 13.4 % 11.5-15.5 N PLATELET COUNT (test code = PLT) 314 x10 3/uL 130-400 N MEAN PLATELET VOLUME (test c ode = MPV) 9.3 fL 9.4-16.4 L NEUTROPHIL % (test code = NT%) 67.7 % 43-65 H IMMATURE GRANULOCYTE % (test code = IG%) 0.5 % 0.0-2.0 N LYMPHOCYTE % (test code = LY%) 17.8 % 20.5-45.5 L MONOCYTE % (test code = MO%) 10.7 % 5.5-11.7 N EOSINOPHIL % (test code = EO%) 2.5 % 0.9-2.9 N BASOPHIL % (test code = BA%) 0.8 % 0.2-1.0 N NUCLEATED RBC % (test code = NRBC%) 0.0 % 0-1.0 N NEUTROPHIL # (test code = NT#) 6.83 x10 3/uL 2.2-4.8 H IMMATURE GRANULOCYTE # (test code = IG#) 0.05 x10 3/uL 0-0.03 H LYMPHOCYTE # (test code = LY#) 1.79 x10 3/uL 1.3-2.9 N MONOCYTE # (test code = MO#) 1.08 x10 3/uL 0.3-0.8 H EOSINOPHIL # (test code = EO#) 0.25 x10 3/uL 0.0-0.2 H BASOPHIL # (test code = BA#) 0.08 x10 3/uL 0.0-0.1 N [id number] 10:57:00* Test Item Value Reference Range Interpretation Comme nts Glucose Lvl (test code = Glucose Lvl) 164 70-99 BUN (test code = BUN) 12 7-22 Creatinine Lvl (test code = Creatinine Lvl) 0.63 0.50-1.40 Sodium Lvl (test code = Sodium Lvl) 135 135-145 Potassium Lvl (test code = P otassium Lvl) 3.9 3.5-5.1 Chloride Lvl (test code = Chloride Lvl) 101 95-109 CO2 (test code = CO2) 30 24-32 Calcium Lvl (test code = Calcium Lvl) 8.8 8.5-10.5 Total Protein (test code = T otal Protein) 6.8 6.4-8.4 Albumin Lvl (test code = Albumin Lvl) 2.4 3.5-5.0 ALT (test code = ALT) 27 <=65 AST (test code = AST) 27 <=37 Alk Phos (test code = Alk Phos) 123 39-136 Bili Total (test code = Bili Total) 1.0 0.2-1.3 AGAP (test code = AGAP) 7.9 10.0-20.0 B/C Ratio (test code = B/C Ratio) 19 1 6-25 Globulin (test code = Globulin) 4.4 2.7-4.2 A/G Ratio (test code = A/G Ratio) 0.5 1 0.7-1.6 eGFR (test code = eGFR) 100 Magnesium Lvl (test code = M agnesium Lvl) 1.6 1.8-2.4 [facility]2023-05-10 02:39:00* Test Item Value Reference Range Interpretation Comme nts Glucose POC (test code = Glucose POC) 200 70-99 Gluc POC Comment 1 (test cod e = Gluc POC Comment 1) Notified RN/MD Gluc POC Comment 2 (test cod e = Gluc POC Comment 2) Sent to lab [facility]2023-05-08 10:20:00* Test Item Value Reference Range Interpretation Comme nts Magnesium Lvl (test code = M agnesium Lvl) 1.4 1.8-2.4 Glucose Lvl (test code = Glucose Lvl) 245 70-99 BUN (test code = BUN) 13 7-22 Creatinine Lvl (test code = Creatinine Lvl) 0.72 0.50-1.40 Sodium Lvl (test code = Sodium Lvl) 137 135-145 Potassium Lvl (test code = P otassium Lvl) 3.2 3.5-5.1 Chloride Lvl (test code = Chloride Lvl) 107 95-109 CO2 (test code = CO2) 26 24-32 AGAP (test code = AGAP) 7.2 10.0-20.0 Calcium Lvl (test code = Calcium Lvl) 8.2 8.5-10.5 B/C Ratio (test code = B/C Ratio) 18 1 6-25 Total Protein (test code = T otal Protein) 6.5 6.4-8.4 Albumin Lvl (test code = Albumin Lvl) 2.2 3.5-5.0 Globulin (test code = Globulin) 4.3 2.7-4.2 A/G Ratio (test code = A/G Ratio) 0.5 1 0.7-1.6 ALT (test code = ALT) 23 <=65 AST (test code = AST) 16 <=37 Alk Phos (test code = Alk Phos) 121 39-136 Bili Total (test code = Bili Total) 0.9 0.2-1.3 eGFR (test code = eGFR) 96 [facility] 10:20:00* Test Item Value Reference Range Interpretation Comme [facility] Phosphorus (test code = Phosphorus) 2.0 2.5-4.5 [place] [id number] 15:54:20* Test Item Value Reference Range Interpretation Comme nts RADRPT (test code = RADRPT) PROCEDURE INFORMATION: Exam: MR Abdomen Without and With Contrast Exam date and time: 09/21/2022 5:21 PM Age: 72 years old Clinical indication: Screening exam; Additional info: /weight loss, liver lesion TECHNIQUE: Imaging protocol: Magnetic resonance imaging of the abdomen without and with contrast. Contrast material: CLARISCAN; Contrast volume: 20 ml; Contrast route: INTRAVENOUS (IV); COMPARISON: CHEST PULMONARY EMBOLISM CTA 09/18/2022 10:25 PM FINDINGS: Liver: No significant hepatic steatosis. Enlargement of the caudate and left hepatic lobes. 1.3 cm T2 hyperintense T1 hypointense nonenhancing right hepatic lobe lesion consistent with cyst. No arterially enhancing lesion of the liver with washout. Gallbladder and bile ducts: Status post cholecystectomy. No significant biliary ductal dilatation. Pancreas: Pancreatic atrophy. No peripancreatic inflammatory changes. 7 mm cyst at the pancreatic tail (series 3, image 19). No pancreatic ductal dilatation. Spleen: Spleen is enlarged at 13.5 cm. Adrenal glands: Unremarkable. Kidneys and ureters: No hydronephrosis or suspicious renal mass. 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 Intraperitoneal space: No ascites. Vasculature: Portal veins are patent. Abdominal aorta is normal in caliber. 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 Lymph nodes: No enlarged lymph nodes. Bones/joints: Normal bone marrow signal. Soft tissues: Unremarkable. IMPRESSION: 1. Right hepatic lobe cyst. 2. 7 mm pancreatic cyst reimaging every 2 years for 10 years is recommended. (Reference: Iona, 2017) 3. Splenomegaly. REFERENCES: Iona RODRIGUEZ, et al. Management of Incidental Pancreatic Cysts: A White Paper of the ACR Incidental Findings Committee. J Am Sally Radiol. 2017;14(7):911-923. Louisa Granados MD On 09/22/2022 10:53:51; [id number] [facility]2023-05-07 10:29:00* Test Item Value Reference Range Interpretation Comme nts Glucose Lvl (test code = Glucose Lvl) 176 70-99 BUN (test code = BUN) 12 7-22 Creatinine Lvl (test code = Creatinine Lvl) 0.63 0.50-1.40 Sodium Lvl (test code = Sodium Lvl) 137 135-145 Potassium Lvl (test code = P otassium Lvl) 3.3 3.5-5.1 Chloride Lvl (test code = Chloride Lvl) 106 95-109 CO2 (test code = CO2) 26 24-32 Calcium Lvl (test code = Calcium Lvl) 8.1 8.5-10.5 Total Protein (test code = T otal Protein) 6.4 6.4-8.4 Albumin Lvl (test code = Albumin Lvl) 2.2 3.5-5.0 ALT (test code = ALT) 22 <=65 AST (test code = AST) 20 <=37 Alk Phos (test code = Alk Phos) 120 39-136 Bili Total (test code = Bili Total) 0.9 0.2-1.3 AGAP (test code = AGAP) 8.3 10.0-20.0 B/C Ratio (test code = B/C Ratio) 19 1 6-25 Globulin (test code = Globulin) 4.2 2.7-4.2 A/G Ratio (test code = A/G Ratio) 0.5 1 0.7-1.6 eGFR (test code = eGFR) 100 Magnesium Lvl (test code = M agnesium Lvl) 1.5 1.8-2.4 [facility]auzxjRUCDAOGLXN7829-09-52 10:29:00* Test Item Value Reference Range Interpretation Comme nts RBC Morph (test code = RBC Morph) Normal (09/22/22 5:29 AM) Plt Morph (test code = Plt Morph) Normal (09/22/22 5:29 AM) Segs (test code = Segs) 80.8 45.0-75.0 Lymphocytes (test code = Lymphocytes) 9.9 20.0-40.0 Monocytes (test code = Monocytes) 6.9 2.0-12.0 Eosinophils (test code = Eosinophils) 1.6 <=4.0 Basophils (test code = Basophils) 0.8 <=1.0 Neutrophils # (test code = Neutrophils #) 7.3 1.5-8.1 Lymphocytes # (test code = Lymphocytes #) 0.9 1.0-5.5 Monocytes # (test code = Monocytes #) 0.6 <=0.8 Eosinophils # (test code = Eosinophils #) 0.1 <=0.5 Basophils # (test code = Basophils #) 0.1 <=0.2 WBC (test code = WBC) 9.1 3.7-10.4 RBC (test code = RBC) 3.35 4.70-6.10 Hgb (test code = Hgb) 10.6 14.0-18.0 Hct (test code = Hct) 30.1 42.0-54.0 MCV (test code = MCV) 89.7 80.0-94.0 MCH (test code = MCH) 31.5 pg 27.0-31.0 MCHC (test code = MCHC) 35.1 32.0-36.0 RDW (test code = RDW) 14.0 11.5-14.5 Platelet (test code = Platelet) 203 133-450 MPV (test code = MPV) 7.8 7.4-10.4 [facility]woodBACT[facility] - [id number] 14:18:00* Test Item Value Reference Range Interpretation Comme nts Source Strep (test code = Source Strep) Urine *NA*(09/21/22 9:18 AM) Strep pneumoniae Ag (test code = Strep pneumoniae Ag) Negative (09/21/22 9:18 AM) [facility]woodCHEM [id number] 10:30:00* Test Item Value Reference Range Interpretation Comme nts Magnesium Lvl (test code = M agnesium Lvl) 1.5 1.8-2.4 Glucose Lvl (test code = Glucose Lvl) 141 70-99 BUN (test code = BUN) 10 7-22 Creatinine Lvl (test code = Creatinine Lvl) 0.67 0.50-1.40 Sodium Lvl (test code = Sodium Lvl) 137 135-145 Potassium Lvl (test code = P otassium Lvl) 3.3 3.5-5.1 Chloride Lvl (test code = Chloride Lvl) 108 95-109 CO2 (test code = CO2) 29 24-32 Calcium Lvl (test code = Calcium Lvl) 8.2 8.5-10.5 Total Protein (test code = T otal Protein) 6.4 6.4-8.4 Albumin Lvl (test code = Albumin Lvl) 2.2 3.5-5.0 ALT (test code = ALT) 27 <=65 AST (test code = AST) 28 <=37 Alk Phos (test code = Alk Phos) 126 39-136 Bili Total (test code = Bili Total) 1.3 0.2-1.3 AGAP (test code = AGAP) 3.3 10.0-20.0 B/C Ratio (test code = B/C Ratio) 15 1 6-25 Globulin (test code = Globulin) 4.2 2.7-4.2 A/G Ratio (test code = A/G Ratio) 0.5 1 0.7-1.6 eGFR (test code = eGFR) 98 [facility] [id number] 10:30:00* Test Item Value Reference Range Interpretation Comme nts Cryptococcal Ag (test code = Cryptococcal Ag) Negative (09/21/22 5:30 AM) [facility] KingwoodIjjxthyRVNHGXTRCR6311-83-35 10:30:00* Test Item Value Reference Range Interpretation Comme nts Segs (test code = Segs) 80.9 45.0-75.0 Lymphocytes (test code = Lymphocytes) 9.3 20.0-40.0 Monocytes (test code = Monocytes) 7.6 2.0-12.0 Eosinophils (test code = Eosinophils) 1.6 <=4.0 Basophils (test code = Basophils) 0.6 <=1.0 Neutrophils # (test code = Neutrophils #) 7.6 1.5-8.1 Lymphocytes # (test code = Lymphocytes #) 0.9 1.0-5.5 Monocytes # (test code = Monocytes #) 0.7 <=0.8 Eosinophils # (test code = Eosinophils #) 0.1 <=0.5 Basophils # (test code = Basophils #) 0.1 <=0.2 WBC (test code = WBC) 9.3 3.7-10.4 RBC (test code = RBC) 3.49 4.70-6.10 Hgb (test code = Hgb) 10.9 14.0-18.0 Hct (test code = Hct) 31.6 42.0-54.0 MCV (test code = MCV) 90.4 80.0-94.0 MCH (test code = MCH) 31.2 pg 27.0-31.0 MCHC (test code = MCHC) 34.5 32.0-36.0 RDW (test code = RDW) 13.7 11.5-14.5 Platelet (test code = Platelet) 212 133-450 MPV (test code = MPV) 7.4 7.4-10.4 [facility] KingwoodJagakvzCERLKSDDDZ8872-87-09 20:12:00* Test Item Value Reference Range Interpretation Comme nts HIV Ag/Ab 4th Gen (test code = HIV Ag/Ab 4th Gen) Negative *NA*(09/20/22 3:12 PM) SOTO (test code = SOTO) NEGATIVE ANCA (test code = ANCA) NEGATIVE [facility]annTUMOR [id number] 20:12:00* Test Item Value Reference Range Interpretation Comme nts CEA (test code = CEA) 2.7 <=3.0 AFP TM (test code = AFP TM) 3.8 [facility] [id number] 20:12:00* Test Item Value Reference Range Interpretation Comme nts Culture: AFB Blood (test code = Culture: AFB Blood) Culture in Process [facility]woodCulture: Fungal [id number] 20:12:00* Test Item Value Reference Range Interpretation Comme nts Culture: Fungal Blood (test code = Culture: Fungal Blood) Culture In Progress [facility] KingwoodGuwnpamBKUXBXJSEY1491-04-66 09:53:00* Test Item Value Reference Range Interpretation Comme nts Segs (test code = Segs) 71.8 45.0-75.0 Lymphocytes (test code = Lymphocytes) 14.9 20.0-40.0 Monocytes (test code = Monocytes) 9.3 2.0-12.0 Eosinophils (test code = Eosinophils) 3.0 <=4.0 Basophils (test code = Basophils) 1.0 <=1.0 Neutrophils # (test code = Neutrophils #) 5.4 1.5-8.1 Lymphocytes # (test code = Lymphocytes #) 1.1 1.0-5.5 Monocytes # (test code = Monocytes #) 0.7 <=0.8 Eosinophils # (test code = Eosinophils #) 0.2 <=0.5 Basophils # (test code = Basophils #) 0.1 <=0.2 WBC (test code = WBC) 7.6 3.7-10.4 RBC (test code = RBC) 3.73 4.70-6.10 Hgb (test code = Hgb) 11.4 14.0-18.0 Hct (test code = Hct) 34.0 42.0-54.0 MCV (test code = MCV) 91.0 80.0-94.0 MCH (test code = MCH) 30.7 pg 27.0-31.0 MCHC (test code = MCHC) 33.7 32.0-36.0 RDW (test code = RDW) 14.0 11.5-14.5 Platelet (test code = Platelet) 231 133-450 MPV (test code = MPV) 7.7 7.4-10.4 [facility] KingwoodGram Stain [id number] 09:46:00* Test Item Value Reference Range Interpretation Comme nts Gram Stain Report (test code = Gram Stain Report) Gram Stain [facility] Respiratory w/Gram [id number] 09:46:00* Test Item Value Reference Range Interpretation Comme nts Culture: Respiratory w/Gram Stain (test code = Culture: Respiratory w/Gram Stain) Few Yeast Normal Respiratory Rolanda Isolated [facility] [id number] 09:46:00* Test Item Value Reference Range Interpretation Comme nts Gram Stain (test code = Gram Stain) Less Than 25 Squamous Epithelial Cells/Lpf Moderate WBC's Rare Gram Negative Rods Good Quality Specimen [facility] [id number] 09:44:00* Test Item Value Reference Range Interpretation Comme nts AFB Stain (test code = AFB Stain) Many Acid Fast Bacilli seen on smear . refer to [id number] for notification [facility] w/Cptis1999-35-07 09:44:00* Test Item Value Reference Range Interpretation Comme nts Culture: AFB w/Smear (test code = Culture: AFB w/Smear) Culture in Process [facility] KingwoodNpxwscwYEAKLJ4511-65-24 23:23:16* Test Item Value Reference Range Interpretation Comme nts RADRPT (test code = RADRPT) PROCEDURE INFORMATION: Exam: XR Left Knee Exam date and time: 09/19/2022 4:49 PM Age: 72 years old Clinical indication: Pain; Additional info: /left knee pain limiting mobility TECHNIQUE: Imaging protocol: Radiologic exam of the left knee. Views: 3 views. AP Obilque Lateral COMPARISON: No relevant prior studies available. FINDINGS: Bones/joints: Mild diffuse osteopenia. Moderate tricompartmental osteoarthritis in the left knee greatest in the medial compartment and patellofemoral compartment manifest by joint space narrowing, subchondral sclerosis, and marginal osteophyte formation. Suspected intra-articular loose body superiorly. No acute fracture or dislocation. Moderate to large knee joint effusion. Soft tissues: Mild soft tissue thickening greatest anteriorly and medially. Notes: If there is further concern, recommend follow-up radiographs or MRI for complete assessment. IMPRESSION: 1. Mild diffuse osteopenia. 2. Moderate osteoarthritis. 3. No acute fracture or dislocation. 4. Moderate to large knee joint effusion. Eris Zambrano MD On 09/19/2022 18:22:08; [id number] [facility] [id number] 13:54:00* Test Item Value Reference Range Interpretation Comme nts Source MTB (test code = Source MTB) Sputum *NA*(09/19/22 8:54 AM) Mycobacterium tuberculosis PCR (test code = Mycobacterium tuberculosis PCR) Detected 6*ABN*(09/19/22 8:54 AM) Rifampin resistance (test code = Rifampin resistance) Not Detected (09/19/22 8:54 AM) [facility]woodGram Stain [id number] 13:54:00* Test Item Value Reference Range Interpretation Comme nts Gram Stain Report (test code = Gram Stain Report) Gram Stain [facility] By: [facility]: Respiratory w/Gram Pqkos4408-04-09 13:54:00* Test Item Value Reference Range Interpretation Comme nts Culture: Respiratory w/Gram Stain (test code = Culture: Respiratory w/Gram Stain) Few Yeast [facility] [id number] 13:54:00* Test Item Value Reference Range Interpretation Comme nts AFB Stain (test code = AFB Stain) Many Acid Fast Bacilli Seen . Critical Results Called To: Elmira Gutierrez RN at [facility] [id number] At: 09/20/2022 16:37 Called By: Read Back Ok [facility]: AFB w/Ymsza2418-38-63 13:54:00* Test Item Value Reference Range Interpretation Comme nts Culture: AFB w/Smear (test code = Culture: AFB w/Smear) Mycobacterium tuberculosis Complex Isolated Susceptibility To Follow . Refer to MTB PCR accession # [id number] for notification. [facility]woodGram [id number] 13:54:00* Test Item Value Reference Range Interpretation Comme nts Gram Stain (test code = Gram Stain) Less Than 25 Squamous Epithelial Cells/Lpf Many WBC's No Organisms Seen Good Quality Specimen [facility] KingwoodCHEM [id number] 07:06:00* Test Item Value Reference Range Interpretation Comme nts Lactic Acid Lvl (test code = Lactic Acid Lvl) 1.0 0.5-2.2 [facility] KingwoodGkwyjolCUDNQKYBP8552-41-08 07:06:00* Test Item Value Reference Range Interpretation Comme nts Lactic Acid Lvl (test code = Lactic Acid Lvl) 1.0 0.5-2.2 [facility] KingwoodQxrbygpIKRGAE7059-85-52 04:46:11* Test Item Value Reference Range Interpretation Comme nts RADRPT (test code = RADRPT) Radiation Dose CTDIVOL = 0 (mGy): DLP = 341 (mGy-cm)PROCEDURE INFORMATION: Exam: CTA Chest With Contrast Exam date and time: 09/18/2022 10:25 PM Age: 72 years old Clinical indication: /pe protocol, also eval extensive L lung opacities TECHNIQUE: Imaging protocol: Computed tomographic angiography of the chest with contrast. 3D rendering (Not supervised by radiologist): MIP and/or 3D reconstructed images were created by the technologist. Radiation optimization: All CT scans at this facility use at least one of these dose optimization techniques: automated exposure control; mA and/or kV adjustment per patient size (includes targeted exams where dose is matched to clinical indication); or iterative reconstruction. Contrast material: OMNI 350; Contrast volume: 80 ml; Contrast route: INTRAVENOUS (IV); REPORTING DATA: Count of CT and Cardiac NM exams in prior 12 months: This patient has received 0 known CTs and 0 known cardiac nuclear medicine studies in the 12 months prior to the current study. COMPARISON: CHEST 1VIEW DX 09/18/2022 6:18 PM RADIATION DOSE METRICS: Total DLP (mGy-cm): 341 FINDINGS: Pulmonary arteries: Normal. No pulmonary emboli. Aorta: No aortic aneurysm. No aortic dissection. Lungs: Left upper lobe cavitary pulmonary consolidation is identified. Reticular opacities involve the right upper lobe, right middle lobe, bilateral lower lobes. No endobronchial abnormalities identified. Pleural spaces: Unremarkable. No pneumothorax. No pleural effusion. Heart: No cardiomegaly. No pericardial effusion. Lymph nodes: No threshold enlarged lymph nodes. Liver: Liver contour is nodular. There is enlargement of the caudate and left hepatic lobes. Indeterminate right hepatic lobe hypodensity measures 1.6 cm on series 4, image 117. Gallbladder and bile ducts: Gallbladder has been removed. Bones/joints: T4 and T5 superior endplate compression deformities demonstrate less than 25% height loss and no osseous retropulsion. No suspicious lytic or blastic osseous lesions identified. Soft tissues: No soft tissue mass or fluid collection identified. IMPRESSION: Cavitary left upper lobe pneumonia. Follow-up to radiographic resolution is recommended to exclude malignancy. Bilateral lower lobe, right upper lobe, and right middle lobe reticular opacities primarily represent atelectasis. Concurrent pneumonia is however difficult to exclude. Cirrhosis. 1.6 cm indeterminate right hepatic lobe hypodensity is poorly characterized. Nonemergent MRI of the liver with IV contrast is recommended to exclude hepatocellular carcinoma. T4 and T5 superior endplate compression deformities demonstrate less than 25% height loss and no osseous retropulsion. Fractures are age indeterminate. MRI is best for assessing the acuity of these fractures.Quoc Thompson MD On 09/18/2022 23:44:41; [id number] [facility]2023-05-04 01:54:00* Test Item Value Reference Range Interpretation Comme nts Lactic Acid Lvl (test code = Lactic Acid Lvl) 2.1 0.5-2.2 [facility]2023-05-04 01:54:00* Test Item Value Reference Range Interpretation Comme nts UA Color (test code = UA Color) Yellow *NA*(09/18/22 8:54 PM) UA Turbidity (test code = UA Turbidity) Clear (09/18/22 8:54 PM) UA Spec Grav (test code = UA Spec Grav) 1.011 1 UA pH (test code = UA pH) 7.0 1 5.0-8.0 UA Protein (test code = UA Protein) Negative mg/dL UA Glucose (test code = UA Glucose) Negative mg/dL UA Bili (test code = UA Bili) Negative *NA*(09/18/22 8:54 PM) UA Blood (test code = UA Blood) Negative (09/18/22 8:54 PM) UA Nitrite (test code = UA Nitrite) Negative (09/18/22 8:54 PM) UA Leuk Est (test code = UA Leuk Est) Negative (09/18/22 8:54 PM) UA Ascorbic Acid (test code = UA Ascorbic Acid) Negative 5*NA*(09/18/22 8:54 PM) UA WBC (test code = UA WBC) 3 <=5 UA RBC (test code = UA RBC) no gt <=2 UA Mucus (test code = UA Mucus) Few /LPF UA Hyal Cast (test code = UA Hyal Cast) 4 <=2 UA Sq Epi (test code = UA Sq Epi) None Seen UA Ketones (test code = UA Ketones) Negative UA Urobilinogen (test code = UA Urobilinogen) <=1.0 mg/dL 0.1-1.0 [facility] KingwoodWilmemzDYNAWRNNMC2792-01-19 00:25:00* Test Item Value Reference Range Interpretation Comme nts Coronavirus (COVID-19) MARK (test code = Coronavirus (COVID-19) MARK) Not Detected (09/18/22 7:25 PM) [facility] KingwoodEurfwzyQEZDRQ6739-24-31 23:47:16* Test Item Value Reference Range Interpretation Comme nts RADRPT (test code = RADRPT) PROCEDURE INFORMATION: Exam: XR Chest Exam date and time: 09/18/2022 6:18 PM Age: 72 years old Clinical indication: /dyspnea, HX of chf; () TECHNIQUE: Imaging protocol: Radiologic exam of the chest. Views: 1 view. COMPARISON: No relevant prior studies available. FINDINGS: Lungs: The lungs are hyperlucent which may be due to technique or reflect COPD. Extensive alveolar opacities with air bronchograms left upper lung. Pleural spaces: Minimal thickening right horizontal fissure. Heart/Mediastinum: Cardiac silhouette within normal limits. Bones/joints: Negative acute. IMPRESSION: Extensive airspace disease left lung may reflect pneumonia; neoplasm is not excluded. CT chest can further evaluate. Jersey Hansen MD On 09/18/2022 18:46:46; [id number] [facility]woodCARDIAC [id number] 23:15:00* Test Item Value Reference Range Interpretation Comme nts HS Troponin I (test code = H S Troponin I) 6 BNP (test code = BNP) 24 Total CK (test code = Total CK) 161 12-191 [facility]woodCHEM [id number] 23:15:00* Test Item Value Reference Range Interpretation Comme nts Lipase Lvl (test code = Lipase Lvl) 153 13-77 Procalcitonin Lvl (test code = Procalcitonin Lvl) 0.11 <=0.10 Lactic Acid Lvl (test code = Lactic Acid Lvl) 2.5 0.5-2.2 [facility] HospitalNtzqehcSKVDEHGHI4512-54-83 23:15:00* Test Item Value Reference Range Interpretation Comme nts Lipase Lvl (test code = Lipase Lvl) 153 13-77 HS Troponin I (test code = H S Troponin I) 6 BNP (test code = BNP) 24 Procalcitonin Lvl (test code = Procalcitonin Lvl) 0.11 <=0.10 Total CK (test code = Total CK) 161 12-191 [facility] KingwoodCoosalzVJLZBZYIXP0665-03-71 23:15:00* Test Item Value Reference Range Interpretation Comme nts PT (test code = PT) 20.0 s 12.0-14.7 INR (test code = INR) 1.70 1 0.87-1.13 PTT (test code = PTT) 32.3 s 22.9-35.8 [facility] KingwoodCulture: [id number] 23:15:00* Test Item Value Reference Range Interpretation Comme nts Culture: Blood (test code = Culture: Blood) No Growth At 5 Days [facility] LEGIONELLA (LEGIONARES) [id number] 05:19:00* Test Item Value Reference Range Interpretation Comme nts AB LEGIONELLA (LEGIONARES) IFA (test code = LEGAB) 1.54 RATIO 0.0-0.9 NEGATIVE = <0.91EQUIVOCAL = 0.91-1.09POSITIVE = >1.09 This assay detects IgG/IgM/IgA antibodies to L.pneumophiliaGroups 1-6 by the EIA method. [id number] 17:16:00* Test Item Value Reference Range Interpretation Comme nts GLUBED (test code = GLUBED) 353 MG/DL 74-106 H [id number] 12:37:00* Test Item Value Reference Range Interpretation Comme nts GLUBED (test code = GLUBED) 200 MG/DL 74-106 H BASIC METABOLIC [id number] 05:31:00* Test Item Value Reference Range Interpretation Comme nts SODIUM (test code = NA) 134 mmol/L 137-145 L POTASSIUM (test code = K) 3.3 mmol/L 3.4-5.0 L CHLORIDE (test code = CL) 98 mmol/L 98-107 N CARBON DIOXIDE (test code = CO2) 33 mmol/L 22-30 H ANION GAP (test code = GAP) 6 GLUCOSE (test code = GLU) 218 mg/dL 74-106 H BLOOD UREA NITROGEN (test code = BUN) 18 mg/dL 9-20 N GLOMERULAR FILTRATION RATE (test code = GFR) 108 mL/min The Glomerular Filtration Rate is a calculated parameterbased on serum Creatinine, patient age and sex. GFR valuesless than 60 mL/min/1.73 square meters are indicative ofChronic Kidney Disease. Values less than 15 mL/min/1.73square meters indicate Kidney failure. The calculation forGFR is based on the CKD-EPI (202) calculation. This formulais race indifferent and is the recommended formula for GFRby the National Kidney Foundation for Adults.The GFR will not calculate if the sex is unknown or if thepatient's age is <18 years. CREATININE (test code = CREAT) < 0.5 mg/dL 0.7-1.3 L CALCIUM (test code = CA) 8.0 mg/dL 8.4-10.2 L INDEX HEMOLYSIS (test code = HEMINDEX) 25 Index/DL 0-100 N LIVER FUNCTION [id number] 05:31:00* Test Item Value Reference Range Interpretation Comme nts TOTAL PROTEIN (test code = PROT) 5.8 g/dL 6.3-8.2 L "A positive bias may occur for patients taking Eltrombopag(a bone marrow stimulant used to treat thrombocytopenia andaplastic anemia)." ALBUMIN (test code = ALB) 3.1 g/dL 3.5-5.0 L BILIRUBIN TOTAL (test code = BILT) 1.3 mg/dL 0.2-1.3 N "A positive b ias may occur for patients taking Eltrombopag(a bone marrow stimulant used to treat thrombocytopenia andaplastic anemia)." BILIRUBIN CONJUGATED (test code = BILCON) 0 mg/dL 0-0.3 N "A positive bias may occur for patients taking Eltrombopag(a bone marrow stimulant used to treat thrombocytopenia andaplastic anemia)." CONJUGATED BILIRUBIN IS THE REPLACEMENT ASSAY FOR DIRECTBILIRUBIN. BILIRUBIN UNCONJUGATED (test code = BILUNC) 0.8 mg/dL 0-1.1 N SGOT/AST (test code = AST) 51 U/L 15-46 H SGPT/ALT (test code = ALT) 40 U/L 0-49 N ALKALINE PHOSPHATASE (test code = ALKP) 87 U/L 38-126 N [id number] 05:31:00* Test Item Value Reference Range Interpretation Comme nts MAGNESIUM (test code = MAG) 1.6 mg/dL 1.6-2.3 N HGBA1C - GLYCOSYLATED [id number] 05:25:00* Test Item Value Reference Range Interpretation Comme nts GLYCOSYLATED HEMOGLOBIN (HA1C) (test code = GLYHGB) 8.7 % 0-5.9 H Current nisha delines recommend a treatment goal of <7% fordiabetic patients. A1c may be overestimated in diabeticpatients exhibiting poor control and who are alsoheterozygous or homozygous for HgbS or HgbC. Totalglycohemoglobin is a better indicator of diabetic control inpatients with these hemoglobin variants. [id number] 05:11:00* Test Item Value Reference Range Interpretation Comme nts GLUBED (test code = GLUBED) 205 MG/DL 74-106 H CBC W/AUTO [id number] 04:42:00* Test Item Value Reference Range Interpretation Comme nts WHITE BLOOD CELL (test code = WBC) 8.9 x10 3/uL 5.0-12.0 N RED BLOOD CELL (test code = RBC) 3.60 x10 6/uL 4.70-6.10 L HEMOGLOBIN (test code = HGB) 10.9 g/dL 14.0-18.0 L HEMATOCRIT (test code = HCT) 31.7 % 37.0-49.0 L MEAN CELL VOLUME (test code = MCV) 88 fL 80-94 N MEAN CELL HGB (test code = MCH) 30.3 pg 27-31 N MEAN CELL HGB CONCENTRATION (test code = MCHC) 34.4 g/dL 33-37 N RED CELL DISTRIBUTION WIDTH (test code = RDW) 13.2 % 11.5-15.5 N PLATELET COUNT (test code = PLT) 138 x10 3/uL 130-400 N MEAN PLATELET VOLUME (test c ode = MPV) 10.2 fL 9.4-16.4 N NEUTROPHIL % (test code = NT%) 79.3 % 43-65 H IMMATURE GRANULOCYTE % (test code = IG%) 0.8 % 0.0-2.0 N LYMPHOCYTE % (test code = LY%) 13.0 % 20.5-45.5 L MONOCYTE % (test code = MO%) 5.5 % 5.5-11.7 N EOSINOPHIL % (test code = EO%) 1.2 % 0.9-2.9 N BASOPHIL % (test code = BA%) 0.2 % 0.2-1.0 N NUCLEATED RBC % (test code = NRBC%) 0.0 % 0-1.0 N NEUTROPHIL # (test code = NT#) 7.04 x10 3/uL 2.2-4.8 H IMMATURE GRANULOCYTE # (test code = IG#) 0.07 x10 3/uL 0-0.03 H LYMPHOCYTE # (test code = LY#) 1.16 x10 3/uL 1.3-2.9 L MONOCYTE # (test code = MO#) 0.49 x10 3/uL 0.3-0.8 N EOSINOPHIL # (test code = EO#) 0.11 x10 3/uL 0.0-0.2 N BASOPHIL # (test code = BA#) 0.02 x10 3/uL 0.0-0.1 N [id number] 17:05:00* Test Item Value Reference Range Interpretation Comme nts GLUBED (test code = GLUBED) 346 MG/DL 74-106 H [id number] 12:12:00* Test Item Value Reference Range Interpretation Comme nts GLUBED (test code = GLUBED) 392 MG/DL 74-106 H CBC W/AUTO [id number] 05:22:00* Test Item Value Reference Range Interpretation Comme nts WHITE BLOOD CELL (test code = WBC) 4.9 x10 3/uL 5.0-12.0 L RED BLOOD CELL (test code = RBC) 4.01 x10 6/uL 4.70-6.10 L HEMOGLOBIN (test code = HGB) 12.0 g/dL 14.0-18.0 L HEMATOCRIT (test code = HCT) 35.2 % 37.0-49.0 L MEAN CELL VOLUME (test code = MCV) 88 fL 80-94 N MEAN CELL HGB (test code = MCH) 29.9 pg 27-31 N MEAN CELL HGB CONCENTRATION (test code = MCHC) 34.1 g/dL 33-37 N RED CELL DISTRIBUTION WIDTH (test code = RDW) 13.2 % 11.5-15.5 N PLATELET COUNT (test code = PLT) 133 x10 3/uL 130-400 N MEAN PLATELET VOLUME (test c ode = MPV) 10.2 fL 9.4-16.4 N NEUTROPHIL % (test code = NT%) 84.8 % 43-65 H IMMATURE GRANULOCYTE % (test code = IG%) 0.4 % 0.0-2.0 N LYMPHOCYTE % (test code = LY%) 13.2 % 20.5-45.5 L MONOCYTE % (test code = MO%) 1.4 % 5.5-11.7 L EOSINOPHIL % (test code = EO%) 0.0 % 0.9-2.9 L BASOPHIL % (test code = BA%) 0.2 % 0.2-1.0 N NUCLEATED RBC % (test code = NRBC%) 0.0 % 0-1.0 N NEUTROPHIL # (test code = NT#) 4.16 x10 3/uL 2.2-4.8 N IMMATURE GRANULOCYTE # (test code = IG#) 0.02 x10 3/uL 0-0.03 N LYMPHOCYTE # (test code = LY#) 0.65 x10 3/uL 1.3-2.9 L MONOCYTE # (test code = MO#) 0.07 x10 3/uL 0.3-0.8 L EOSINOPHIL # (test code = EO#) 0.00 x10 3/uL 0.0-0.2 N BASOPHIL # (test code = BA#) 0.01 x10 3/uL 0.0-0.1 N COMPREHENSIVE METABOLIC [id number] 02:10:00* Test Item Value Reference Range Interpretation Comme nts SODIUM (test code = NA) 133 mmol/L 137-145 L POTASSIUM (test code = K) 3.4 mmol/L 3.4-5.0 N CHLORIDE (test code = CL) 97 mmol/L 98-107 L CARBON DIOXIDE (test code = CO2) 33 mmol/L 22-30 H ANION GAP (test code = GAP) 6 GLUCOSE (test code = GLU) 274 mg/dL 74-106 H BLOOD UREA NITROGEN (test code = BUN) 13 mg/dL 9-20 N GLOMERULAR FILTRATION RATE (test code = GFR) 108 mL/min The Glomerular Filtration Rate is a calculated parameterbased on serum Creatinine, patient age and sex. GFR valuesless than 60 mL/min/1.73 square meters are indicative ofChronic Kidney Disease. Values less than 15 mL/min/1.73square meters indicate Kidney failure. The calculation forGFR is based on the CKD-EPI (2020) calculation. This formulais race indifferent and is the recommended formula for GFRby the National Kidney Foundation for Adults.The GFR will not calculate if the sex is unknown or if thepatient's age is <18 years. CREATININE (test code = CREAT) 0.5 mg/dL 0.7-1.3 L TOTAL PROTEIN (test code = PROT) 6.1 g/dL 6.3-8.2 L "A positive bias may occur for patients taking Eltrombopag(a bone marrow stimulant used to treat thrombocytopenia andaplastic anemia)." ALBUMIN (test code = ALB) 3.3 g/dL 3.5-5.0 L CALCIUM (test code = CA) 8.1 mg/dL 8.4-10.2 L BILIRUBIN TOTAL (test code = BILT) 1.7 mg/dL 0.2-1.3 H "A positive b ias may occur for patients taking Eltrombopag(a bone marrow stimulant used to treat thrombocytopenia andaplastic anemia)." BILIRUBIN CONJUGATED (test code = BILCON) 0 mg/dL 0-0.3 N "A positive bias may occur for patients taking Eltrombopag(a bone marrow stimulant used to treat thrombocytopenia andaplastic anemia)." CONJUGATE D BILIRUBIN IS THE REPLACEMENT ASSAY FOR DIRECTBILIRUBIN. BILIRUBIN UNCONJUGATED (test code = BILUNC) 1.1 mg/dL 0-1.1 N SGOT/AST (test code = AST) 71 U/L 15-46 H SGPT/ALT (test code = ALT) 46 U/L 0-49 N ALKALINE PHOSPHATASE (test code = ALKP) 102 U/L 38-126 N INDEX HEMOLYSIS (test code = HEMINDEX) 18 Index/DL 0-100 N [id number] 02:10:00* Test Item Value Reference Range Interpretation Comme nts MAGNESIUM (test code = MAG) 1.7 mg/dL 1.6-2.3 N [id number] 16:48:00* Test Item Value Reference Range Interpretation Comme nts GLUBED (test code = GLUBED) 159 MG/DL 74-106 H [id number] 11:36:00* Test Item Value Reference Range Interpretation Comme nts GLUBED (test code = GLUBED) 160 MG/DL 74-106 H - CT HEAD/BRAIN W/O [id number] 10:16:00 [facility] : 1950 Sex: M FAX: Seth Velazquez MD [phone] [place]: St: ADM FAX: Zander Garcia MD FAX: Kamini Chow MD R1 Name: SEYMOUR DICKERSON [facility] [place] : 1950 Age/S: 71/M [address] Unit: [id number] Loc: [address] [place] [address] Phys: Kamini Chow MD R1 Acct: [id number] Dis Date: Status: ADM IN PHONE #: [phone] Exam Date: 05/25/2022 1004 FAX #: [phone] Reason: acute dizziness, headache EXAMS: CPT CODE: [id number] CT HEAD/BRAIN W/O CONT 08539 EXAM: - CT HEAD/BRAIN W/O CONT INDICATION: acute dizziness, headache TECHNIQUE: Axial tomograms through the brain were obtained without intravenous contrast. Coronal and sagittal reformatted images are provided. All CT scans are performed using radiation dose reduction technique. Technical factors are evaluated and adjusted to insure appropriate moderationof exposure. Automated dose management technology is applied to adjust the radiation dose to minimize exposure while achieving a diagnostic quality image. Location:T18 FINDINGS: Intra-axial and extra-axial structures: No CT evidence of acute territorial infarct, or intracranial hemorrhage seen. Nomass effect, midline shift or hydrocephalus seen. Bones and soft tissues:Appear unremarkable. Paranasal sinuses, and mastoid air cells: Appear clear. Orbits:Visualized orbits appear unremarkable. IMPRESSION: No acute intracranial process seen. at 1016 Reported and signed by: Valeriy Basilio MD CC: Seth Lin MD; Zander Gaston MD; Wisam Chow MD Technologist: JALYN VINSON Trnscrd Dt/Tm: 05/25/2022 (1016) [email or web address] Orig Print D/T: S: 05/25/2022 (1019 PAGE 1 Signed Report- CT HEAD/BRAIN W/O [id number] 10:16:00 [facility] : 1950 Sex: M FAX: Seth Velazquez MD [phone] [place]: St: DIS FAX: Zander Garcia MD FAX: Kamini Chow MD R2 Name: SEYMOUR DICKERSON [facility] : 1950 Age/S: 71/M [address] Unit: [id number] Loc: [place] [address] Phys: Kamini Chow MD R2 Acct: [id number] Dis Date: Status: DIS IN PHONE #: [phone] Exam Date: 05/25/2022 1005 FAX #: [phone] Reason: acute dizziness, headache EXAMS: CPT CODE: [id number] CT HEAD/BRAIN W/O CONT 16141 EXAM: - CT HEAD/BRAIN W/O CONT INDICATION: [...] territorial infarct, or intracranial hemorrhage seen. No masseffect, midline shift or hydrocephalus seen. Bones and soft tissues:Appear unremarkable. Paranasal sinuses, and mastoid air cells: Appear clear. Orbits:Visualized orbits appear unremarkable. IMPRESSION: No acute intracranial process seen. at 1016 Reported and signed by: Valeriy Basilio MD CC: Seth Lin MD; Zander Gaston MD; Kamini Chow MD Technologist: JALYN VINSON Trnscrd Dt/Tm: 05/25/2022 (1016) [email or web address] Print D/T: S: 05/25/2022 (1019 PAGE 1 Signed ReportBASIC METABOLIC [id number] 05:59:00* Test Item Value Reference Range Interpretation Comme nts SODIUM (test code = NA) 135 mmol/L 137-145 L POTASSIUM (test code = K) 3.1 mmol/L 3.4-5.0 L CHLORIDE (test code = CL) 99 mmol/L 98-107 N CARBON DIOXIDE (test code = CO2) 31 mmol/L 22-30 H ANION GAP (test code = GAP) 8 GLUCOSE (test code = GLU) 157 mg/dL 74-106 H BLOOD UREA NITROGEN (test code = BUN) 9 mg/dL 9-20 N GLOMERULAR FILTRATION RATE (test code = GFR) 108 mL/min The Glomerular Filtration Rate is a calculated parameterbased on serum Creatinine, patient age and sex. GFR valuesless than 60 mL/min/1.73 square meters are indicative ofChronic Kidney Disease. Values less than 15 mL/min/1.73square meters indicate Kidney failure. The calculation forGFR is based on the CKD-EPI (2020) calculation. This formulais race indifferent and is the recommended formula for GFRby the National Kidney Foundation for Adults.The GFR will not calculate if the sex is unknown or if thepatient's age is <18 years. CREATININE (test code = CREAT) < 0.5 mg/dL 0.7-1.3 L CALCIUM (test code = CA) 8.4 mg/dL 8.4-10.2 N INDEX HEMOLYSIS (test code = HEMINDEX) 25 Index/DL 0-100 N [id number] 05:59:00* Test Item Value Reference Range Interpretation Comme nts MAGNESIUM (test code = MAG) 1.4 mg/dL 1.6-2.3 L [id number] 05:41:00* Test Item Value Reference Range Interpretation Comme nts GLUBED (test code = GLUBED) 166 MG/DL 74-106 H CBC W/AUTO [id number] 04:47:00* Test Item Value Reference Range Interpretation Comme nts WHITE BLOOD CELL (test code = WBC) 5.1 x10 3/uL 5.0-12.0 N RED BLOOD CELL (test code = RBC) 4.08 x10 6/uL 4.70-6.10 L HEMOGLOBIN (test code = HGB) 12.6 g/dL 14.0-18.0 L HEMATOCRIT (test code = HCT) 36.5 % 37.0-49.0 L MEAN CELL VOLUME (test code = MCV) 90 fL 80-94 N MEAN CELL HGB (test code = MCH) 30.9 pg 27-31 N MEAN CELL HGB CONCENTRATION (test code = MCHC) 34.5 g/dL 33-37 N RED CELL DISTRIBUTION WIDTH (test code = RDW) 13.5 % 11.5-15.5 N PLATELET COUNT (test code = PLT) 129 x10 3/uL 130-400 L MEAN PLATELET VOLUME (test c ode = MPV) 9.9 fL 9.4-16.4 N NEUTROPHIL % (test code = NT%) 51.0 % 43-65 N IMMATURE GRANULOCYTE % (test code = IG%) 0.4 % 0.0-2.0 N LYMPHOCYTE % (test code = LY%) 31.2 % 20.5-45.5 N MONOCYTE % (test code = MO%) 13.0 % 5.5-11.7 H EOSINOPHIL % (test code = EO%) 3.8 % 0.9-2.9 H BASOPHIL % (test code = BA%) 0.6 % 0.2-1.0 N NUCLEATED RBC % (test code = NRBC%) 0.0 % 0-1.0 N NEUTROPHIL # (test code = NT#) 2.58 x10 3/uL 2.2-4.8 N IMMATURE GRANULOCYTE # (test code = IG#) 0.02 x10 3/uL 0-0.03 N LYMPHOCYTE # (test code = LY#) 1.58 x10 3/uL 1.3-2.9 N MONOCYTE # (test code = MO#) 0.66 x10 3/uL 0.3-0.8 N EOSINOPHIL # (test code = EO#) 0.19 x10 3/uL 0.0-0.2 N BASOPHIL # (test code = BA#) 0.03 x10 3/uL 0.0-0.1 N [id number] 21:36:00* Test Item Value Reference Range Interpretation Comme nts GLUBED (test code = GLUBED) 260 MG/DL 74-106 H [id number] 16:14:00* Test Item Value Reference Range Interpretation Comme nts GLUBED (test code = GLUBED) 288 MG/DL 74-106 H LIVER FUNCTION [id number] 16:07:00* Test Item Value Reference Range Interpretation Comme nts TOTAL PROTEIN (test code = PROT) 6.2 g/dL 6.3-8.2 L "A positive bias may occur for patients taking Eltrombopag(a bone marrow stimulant used to treat thrombocytopenia andaplastic anemia)." ALBUMIN (test code = ALB) 3.4 g/dL 3.5-5.0 L BILIRUBIN TOTAL (test code = BILT) 1.5 mg/dL 0.2-1.3 H "A positive b ias may occur for patients taking Eltrombopag(a bone marrow stimulant used to treat thrombocytopenia andaplastic anemia)." BILIRUBIN CONJUGATED (test code = BILCON) 0 mg/dL 0-0.3 N "A positive bias may occur for patients taking Eltrombopag(a bone marrow stimulant used to treat thrombocytopenia andaplastic anemia)." CONJUGATED BILIRUBIN IS THE REPLACEMENT ASSAY FOR DIRECTBILIRUBIN. BILIRUBIN UNCONJUGATED (test code = BILUNC) 0.9 mg/dL 0-1.1 N SGOT/AST (test code = AST) 77 U/L 15-46 H SGPT/ALT (test code = ALT) 48 U/L 0-49 N ALKALINE PHOSPHATASE (test code = ALKP) 88 U/L 38-126 N [id number] 16:07:00* Test Item Value Reference Range Interpretation Comme nts MAGNESIUM (test code = MAG) 1.1 mg/dL 1.6-2.3 L [id number] 12:06:00* Test Item Value Reference Range Interpretation Comme nts GLUBED (test code = GLUBED) 222 MG/DL 74-106 H BASIC METABOLIC [id number] 05:49:00* Test Item Value Reference Range Interpretation Comme nts SODIUM (test code = NA) 135 mmol/L 137-145 L POTASSIUM (test code = K) 3.0 mmol/L 3.4-5.0 L CHLORIDE (test code = CL) 100 mmol/L 98-107 N CARBON DIOXIDE (test code = CO2) 29 mmol/L 22-30 N ANION GAP (test code = GAP) 9 GLUCOSE (test code = GLU) 213 mg/dL 74-106 H BLOOD UREA NITROGEN (test code = BUN) 15 mg/dL 9-20 N GLOMERULAR FILTRATION RATE (test code = GFR) 108 mL/min The Glomerular Filtration Rate is a calculated parameterbased on serum Creatinine, patient age and sex. GFR valuesless than 60 mL/min/1.73 square meters are indicative ofChronic Kidney Disease. Values less than 15 mL/min/1.73square meters indicate Kidney failure. The calculation forGFR is based on the CKD-EPI (2020) calculation. This formulais race indifferent and is the recommended formula for GFRby the National Kidney Foundation for Adults.The GFR will not calculate if the sex is unknown or if thepatient's age is <18 years. CREATININE (test code = CREAT) 0.5 mg/dL 0.7-1.3 L CALCIUM (test code = CA) 8.4 mg/dL 8.4-10.2 N INDEX HEMOLYSIS (test code = HEMINDEX) < 15 Index/DL 0-100 N CBC W/AUTO [id number] 04:18:00* Test Item Value Reference Range Interpretation Comme nts WHITE BLOOD CELL (test code = WBC) 5.1 x10 3/uL 5.0-12.0 N RED BLOOD CELL (test code = RBC) 3.95 x10 6/uL 4.70-6.10 L HEMOGLOBIN (test code = HGB) 12.2 g/dL 14.0-18.0 L HEMATOCRIT (test code = HCT) 35.7 % 37.0-49.0 L MEAN CELL VOLUME (test code = MCV) 90 fL 80-94 N MEAN CELL HGB (test code = MCH) 30.9 pg 27-31 N MEAN CELL HGB CONCENTRATION (test code = MCHC) 34.2 g/dL 33-37 N RED CELL DISTRIBUTION WIDTH (test code = RDW) 13.9 % 11.5-15.5 N PLATELET COUNT (test code = PLT) 117 x10 3/uL 130-400 L MEAN PLATELET VOLUME (test c ode = MPV) 9.7 fL 9.4-16.4 N NEUTROPHIL % (test code = NT%) 58.2 % 43-65 N IMMATURE GRANULOCYTE % (test code = IG%) 0.6 % 0.0-2.0 N LYMPHOCYTE % (test code = LY%) 26.1 % 20.5-45.5 N MONOCYTE % (test code = MO%) 11.0 % 5.5-11.7 N EOSINOPHIL % (test code = EO%) 3.3 % 0.9-2.9 H BASOPHIL % (test code = BA%) 0.8 % 0.2-1.0 N NUCLEATED RBC % (test code = NRBC%) 0.0 % 0-1.0 N NEUTROPHIL # (test code = NT#) 2.96 x10 3/uL 2.2-4.8 N IMMATURE GRANULOCYTE # (test code = IG#) 0.03 x10 3/uL 0-0.03 N LYMPHOCYTE # (test code = LY#) 1.33 x10 3/uL 1.3-2.9 N MONOCYTE # (test code = MO#) 0.56 x10 3/uL 0.3-0.8 N EOSINOPHIL # (test code = EO#) 0.17 x10 3/uL 0.0-0.2 N BASOPHIL # (test code = BA#) 0.04 x10 3/uL 0.0-0.1 N - CT ANGIO [id number] 16:44:00 [facility] : 1950 Sex: M FAX: Seth Velazquez MD [phone] [place]: St: [facility] FAX: Kamar Gale [phone] FAX: Anand Gonzalez DO R3 Name: SEYMOUR DICKERSON [facility] : 1950 Age/S: 71/M [address] Unit: [id number] Loc: [place] [address] Phys: Anand Gonzalez DO R3 Acct: [id number] Dis Date: Status: ADM IN PHONE #: [phone] Exam Date: 05/23/2022 1604 FAX #: [phone] Reason: multifocal pneumonia, hypoxia, tachycardia EXAMS: CPT CODE: [id number] CT ANGIO CHEST [address]23 Location of dictation: B2 CTA of the [...] not optimally evaluated due to adjacent opacities and some motion artifact. Heart and great vessels: Mild aneurysm of the thoracic aorta. The ascending aorta measures 3.7 cm in diameter, the aorta at the arch 3.3 cm and the descending th oracic aorta 3.3 cm. No evidence for dissection. The heart is not enlarged and there is no pericardial effusion. There are scattered atherosclerosis without cardiac decompensation. Lungs and pleura: Abnormal consolidations involving the left upper lobe and lingula. Additional mostly reticular opacities are seen in the right upper and both lower lobes. Some nodular opacities also seen in the medial right middle lobe. No evidence for effusion. The chest wall is intact. Upper abdomen: Fatty liverwith likely cyst in the right lobe, evaluation degraded by motion. Gallbladder removed. PAGE 1 Signed Report (CONTINUED) FAX: Seth Velazquez MD [phone] [place]: St: [facility] FAX: Kamar Gale [phone] FAX: Anand Gonzalez DO R3 Name: SEYMOUR DICKERSON [facility] : 1950 Age/S: 71/M [address] Unit: [id number] Loc: [place] [address] Phys: DouglasmarekAnand DO R3 Acct: [id number] DisDate: Status: ADM IN PHONE #: [phone] Exam Date: 05/23/2022 1604 FAX #: [phone] Reason: multifocal pneumonia, hypoxia, tachycardia EXAMS: CPT CODE: [id number] CT ANGIO CHEST 35341 (Continued) Bones and soft tissues: Several right sided rib fractures anteriorly appear in the healing phase. No other acute osseous abnormalities noted. IMPRESSION: 1. No obvious pulmonary embolism, dissection or heart strain. 2. 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 3. Predominantly left- sided consolidations likely due to pneumonia. Bibasilar atelectasis also present. 4. Healing right rib fractures. at 1644 Reported and signed by: Gertrudis Becerra MD CC: Seth Lin MD; Kamar Gale MD; Anand Gonzalez DO Technologist: Reba Roman Trnscrd Dt/Tm: 05/23/2022 (1374) [email or web address] Orig Print D/T: S: 05/23/2022 (3137 PAGE 2 Signed Report- CT ANGIO [id number] 16:44:00 [facility] : 1950 Sex: M FAX: Seth Velazquez MD [phone] [place]: St: DIS FAX: BaljinderKamar R [phone] FAX: Anand Gonzalez DO R3 Name: SEYMOUR DICKERSON [facility] [place] : 1950 Age/S: 71/M [address] Unit: [id number] Loc: [facility] [place] [address] Phys: Anand Gonzalez DO R3 Acct: [id number] Dis Date: Status: DIS IN PHONE #: [phone] Exam Date: 05/23/2022 1604 FAX #: [phone] Reason: multifocal pneumonia, hypoxia, tachycardia EXAMS: CPT CODE: [id number] CT ANGIO CHEST [address]2565 Location of dictation: B2 CTA of the chest with contrast, PE protocol CLINICAL INDICATION: Multifocal pneumonia, hypoxia and tachycardia Comments: Volumetric data acquisition through the chest with intravenous contrast reconstructed as cont iguous axial volume, and multiplanar coronal and sagittal reconstructions per department protocol.2.5 mm axial sections. Reconstructions - coronal and sagittal planes with MIP reformats Automated exposure reduction (Auto mA/Smart mA) was utilized in compliance with ACR [employer]. COMPARISON: Recent chest x-ray FINDINGS: Pulmonary arteries: No obvious evidence for pulmonary embolism or heart strain. Small subsegmental branches in the lower lobes are not optimally evaluated due to adjacentopacities and some motion artifact. Heart and great vessels: Mild [...] seen in the medial right middle lobe. No evidence for effusion. The chest wall is intact. Upper abdomen: Fatty liver with likely cyst in the right lobe, evaluation degraded by motion. Gallbladder removed. PAGE 1 SignedReport (CONTINUED) FAX: Seth Velazquez MD [phone] [place]: St: DIS FAX: Kamar Gale [phone] FAX: Anand Gonzalez DO R3 Name: SEYMOUR DICKERSON [facility] : 1950 Age/S: 71/M [address] Unit: [id number] Loc: [place] [address] Phys: Anand Gonzalez DO Acct: [id number] Dis Date:Status: DIS IN PHONE #: [phone] Exam Date: 05/23/2022 1604 FAX #: [phone] Reason: multifocal pneumonia, hypoxia, tachycardia EXAMS: CPT CODE: [id number] CT ANGIO CHEST 38089 (Continued) Bones and soft tissues: Several right sided rib fractures anteriorly appear in the healing phase. No other acute osseous abnormalities noted. IMPRESSION: 1. No obvious pulmonary embolism, dissection or heart strain. 2. Mild aneurysm of the thoracic aorta without dissection and no cardiac decompensation.3. Predominantly left- sided consolidations likely due to pneumonia. Bibasilar atelectasis also prese nt. 4. Healing right rib fractures. at 1644 Reported and signed by: Gertrudis Becerra MD CC: Seth Lin MD; Kamar Gale MD; Anand Gonzalez DO Technologist: Reba Roman Trnscrd Dt/Tm: 05/23/2022 (7344) [email or web address] Orig Print D/T: S: 05/23/2022 (1647 PAGE 2 Signed ReportCARDIAC ENZYMES [id number] 14:42:00* Test Item Value Reference Range Interpretation Comme nts TROPONIN-I (test code = TROPI) 0.017 ng/mL 0.012-0.033 N Please be advised of the updated reference ranges for the new Chemistry instrumentation. VITROS TROPONIN I CRITERIANORMAL PATIENT W/O CIRCULATING TNI: 0.012-0.033 ng/mLCIRCULATING TNI PRESENT: 0.034-0.119 ng/mL(MAY BE AT RISK OF AMI)AMI DIAGNOSTIC CUTOFF: >/= 0.120 ng/mL~~~~~~~~~~~~~~~~~~~~~~~ ~~~~~~~~~~~~~~~~~~~~~~~~~~~~ ~~~~~~~~The use of serial sampling and testing protocol is arecommended practice.An elevated troponin level alone is often not sufficient fordiagnosis of myocardial infarction. Troponin results obtained by different assays may vary.Evaluation of the extent of myocardial damage based onincrease of troponin would be valid only if similarmethodology is used.~~~~~~~~~~~~~~~~~~~~~~~ ~~~~~~~~~~~~~~~~~~~~~~~~~~~~ ~~~~~~~~ A POSITIVE BIAS MAY OCCUR FOR PATIENTS TAKING BIOTIN SUPPLEMENTS~~~~~~~~~~~~~~~~~ ~~~~~~~~~~~~~~~~~~~~~~~~~~~~ ~~~~~~~~~~~~~~ Spec Comments: Cancel third set if POC Troponin completed in EDLIPID PROFILE (CORONARY RISK)2022-05-23 13:44:00* Test Item Value Reference Range Interpretation Comme nts TRIGLYCERIDES (test code = TRIG) 164 mg/dL TRIGLYCERIDES REFERENCE RANGE:Normal: <150 mg/dLBorderline High: 150-199 mg/dLHigh: 200-499 mg/dLVery High: >=500 mg/dL CHOLESTEROL (test code = CHOL) 143 mg/dL CHOLESTEROL REFE RENCE RANGE:DESIRABLE: < 200 mg/dLBORDERLINE: 200-239 mg/dLHIGH: >=240 mg/dL HDL CHOLESTEROL (test code = HDL) 42 mg/dL 40-59 N LIPOPROTEIN LDL (test code = LDLC) 57.37 mg/dL 32-99 N CORONARY RISK FACTOR (test code = RISK) 3.40 CHOL/HDL RISK MALE: 1/2 AVG 3.43 FEMALE: 1/2 AVG 3.27 AVG 4.97 AVG 4.44 2X AVG 9.55 2X AVG 7.05 3X AVG 23.39 3X AVG 11.04~~~~~~~~~~~~~~~~ ~~~~~~~~~~~~~~~~~~~~~ ~~~~~~~~~~~~~~~~~~~~~ ~~National Cholesterol Education (NCEP) Guidelines:~~~~~~~~~~ ~~~~~~~~~~~~~~~~~~~~~ ~~~~~~~~~~~~~~~~~~~~~ ~~~~~~~~ HDL Cholesterol<40mg/dL : HDL Cholesterol (Major risk factor for CHD)>60mg/dL: HDL Cholesterol (Negative risk factor for CHD)40-59mg/dL: Borderline Risk LDL Cholesterol<100mg/d L: Desirable LDL-C [id number] g/dL: Borderline High Risk LDL-C [id number] g/dL: High risk LDL-C concentration HDL-LDL Cholesterol is affected by a number of factors suchas smoking, age and sex.~~~~~~~~~~~~~~~~~ ~~~~~~~~~~~~~~~~~~~~~ ~~~~~~~~~~~~~~~~~~~~~ ~ CARDIAC ENZYMES [id number] 13:42:00* Test Item Value Reference Range Interpretation Comme nts TROPONIN-I (test code = TROPI) 0.017 ng/mL 0.012-0.033 N Please be advised of the updated reference ranges for the new Chemistry instrumentation. VITROS TROPONIN I CRITERIANORMAL PATIENT W/O CIRCULATING TNI: 0.012-0.033 ng/mLCIRCULATING TNI PRESENT: 0.034-0.119 ng/mL(MAY BE AT RISK OF AMI)AMI DIAGNOSTIC CUTOFF: >/= 0.120 ng/mL~~~~~~~~~~~~~~~~~~~~~~~ ~~~~~~~~~~~~~~~~~~~~~~~~~~~~ ~~~~~~~~The use of serial sampling and testing protocol is arecommended practice.An elevated troponin level alone is often not sufficient fordiagnosis of myocardial infarction. Troponin results obtained by different assays may vary.Evaluation of the extent of myocardial damage based onincrease of troponin would be valid only if similarmethodology is used.~~~~~~~~~~~~~~~~~~~~~~~ ~~~~~~~~~~~~~~~~~~~~~~~~~~~~ ~~~~~~~~ A POSITIVE BIAS MAY OCCUR FOR PATIENTS TAKING BIOTIN SUPPLEMENTS~~~~~~~~~~~~~~~~~ ~~~~~~~~~~~~~~~~~~~~~~~~~~~~ ~~~~~~~~~~~~~~ Spec Comments: Cancel third set if POC Troponin completed in EDLACTIC ACID 2022-05-23 13:19:00* Test Item Value Reference Range Interpretation Comme nts LACTIC ACID (test code = LACT) 1.9 mmol/L 0.7-2.0 N COVID 19 INHOUSE [id number] 13:07:00* Test Item Value Reference Range Interpretation Comme nts COVID 19 INHOUSE AG (test co de = [id number]) NEGATIVE Negative - US ABDOMEN [id number] 06:33:00 [facility] : 1950 Sex: M FAX: Seth Velazquez MD [phone] [place]: St: [facility] FAX: Kamar Gale [phone] -------- Name: SEYMOUR DICKERSON [facility] : 1950 Age/S: 71/M [address] Unit #: [id number] Loc: [place] [address] Phys: Maurice Pruitt DO Acct: [id number] Dis Date: Status: ADM IN PHONE #: [phone] Exam Date: 05/23/2022613 FAX #: [phone] Reason: n/v EXAMS: CPT CODE: [id number] US ABDOMEN LTD 90024 EXAM: - US ABDOMEN LTD HISTORY: n/v Location code:C3 COMPARISON: None available time of interpretation. TECHNIQUE: Grayscale B-mode and color Doppler sonographic images of the right upper quadrant were obtained. FINDINGS: Exam was limited by patient's body habitus. Liver: Right hepatic lobe length: 13.5 cm Parenchyma/Contour: Nodular contour to the liver is suggested. The liver is poorly assessed due to overlying shadowing. Main portal vein: Patent with normal (hepatopetal) flow. Biliary ducts: No intrahepatic biliary ductal dilation. Common duct measures 4 mm in diameter at the elinor hepatis. Gallbladder: Surgically absent Pancreas: Not well visualized Right Kidney: Largely obscured with nodiscrete hydronephrosis. Length: 13.3 cm Other: No ascites in the visualized abdomen. IMPRESSION: 1. Markedly limited exam as above. Suggestion of cirrhotic morphology of the liver although this is not definitive. Please see above. at 0633 Reported and signed by: Jose G Ferrell MD PAGE 1 Signed Report (CONTINUED) FAX: Seth Velazquez MD [phone] [place]: St: [facility] FAX: Kamar Gale [phone] --------- Name: SEYMOUR DICKERSON [facility] : 1950 Age/S: 71/M [address] Unit #: [id number] Loc: [place], [place] [address]Yryz: Maurice Pruitt DO Acct: [id number] Dis Date: Status: ADM IN PHONE #: [phone] Exam Date:05/23/2022613 FAX #: [phone] Reason: n/v EXAMS: CPT CODE: [id number] US ABDOMEN LTD 46504 (Continued) CC: Seth Lin MD; Kamar Gale MD Technologist: VASQUEZ GRIGSBY Trnscrd Date/Time/By: 05/23/2022 (0633) : By: [email or web address] PAGE 2 Signed Report FAX: Seth Velazquez MD [phone] [place]: St: ADM FAX: Kamar Gale [phone] Name: SEYMOUR DICKERSON [facility] : 1950 Age/S: 71/M [address] Unit #: [id number] Loc: [place] [address] Phys: Maurice Pruitt Acct: [id number] Dis Date: Status: ADM IN PHONE #: [phone] Exam Date: 05/23/2022613 FAX #: [phone] Reason: n/v EXAMS: CPT CODE: [id number] US ABDOMEN LTD 13473 (Continued) Orig Print D/T: S: 05/23/2022 (0636) PAGE 3 Signed Report- US ABDOMEN [id number] 06:33:00 [facility] : 1950 Sex: M FAX: Seth Velazquez MD [phone] [place]: St: DIS FAX: Kamar Gale Wendy [phone] ------- [facility] 1950 Age/S: 71/M [address] Unit #: [id number] Loc: [place] [address] Phys: Maurice Pruitt Acct: [id number] Dis Date: Status: DIS IN PHONE #: [phone] Exam Date:05/23/2022613 FAX #: [phone] Reason: n/v EXAMS: CPT CODE: [id number] US ABDOMEN LTD 86561 EXAM: - US ABDOMEN LTD HISTORY: n/v Location code:C3 COMPARISON: None available time of interpretation. TECHNIQUE: Grayscale B-mode and color Doppler sonographic images of the right upper quadrant were obtained. FINDINGS: Exam was limited by patient's body habitus. Liver: Right hepatic lobe length: 13.5 cm Parenchyma/Contour: Nodular contour to the liver is suggested. The liver is poorly assessed due to overlying shadowing. Main portal vein: Patent with normal (hepatopetal) flow. Biliary ducts: No intrahepatic biliary ductal dilation. Common duct measures 4 mm in diameter at the elinor hepatis. Gallbladder: Surgically absent Pancreas: Not well visualized Right Kidney: Largely obscured with no discrete hydronephrosis. Length: 13.3 cm Other: No ascites in the visualized abdomen. IMPRESSION: 1.Markedly limited exam as above. Suggestion of cirrhotic morphology of the liver although this is not definitive. Please see above. at 0633 Reported and signed by: Jose G Ferrell MD PAGE 1 Signed Report (CONTINUED) FAX:Seth Velazquez MD [phone] [place]: [facility]: DIS FAX: Kamar Gale [phone] Name: SEYMOUR DICKERSON [facility] : 1950 Age/S: 71/M [address] Unit #: [id number] Loc: [place] [address] Phys: Maurice Pruitt DO Acct: [id number] Dis Date: Status: DIS IN PHONE #: [phone] Exam Date: 613 FAX #: [phone] Reason: n/v EXAMS: CPT CODE: [id number] ABDOMEN LTD 69040 (Continued) CC: Seth Lin MD; Kamar Gale MD Technologist: VASQUEZ GRIGSBY Trnilrd Date/Time/By: 05/23/2022 (0633) : By: [email or web address] PAGE 2 Signed Report FAX: Seth Velazquez MD [phone]: [facility]: DIS FAX: Kamar Gale [phone] Name: SEYMOUR DICKERSON : 1950 Age/S: 71/M [address] Unit #: [id number] Loc: [place] [address] Phys: Maurice Pruitt Acct: [id number] Dis Date: Status: DIS IN PHONE #: [phone] Exam Date: 05/23/2022613 FAX #: [phone] Reason: n/v EXAMS: CPT CODE: [id number] US ABDOMEN LTD 25966 (Continued) Orig Print D/T: S: 05/23/2022 (0636) PAGE 3 Signed ReportACUTE HEPATITIS [id number] 05:48:00* Test Item Value Reference Range Interpretation Comme nts HEP A AB TOTAL ONLY (test code = HAVAB) POSITIVE NEGATIVE A A COPY OF TH IS RESULT MUST BE SENT TO INFECTION CONTROL- ~~~~~~~~~~~~~~~~~~~~~~~~ ~~~~~~~~~~~~~~~~~~~~~~~~ ~~~~~~~~~~~~THIS TEST DETECTS TOTAL ANTIBODIES TO HEPATITIS A, AND DOESNOT DIFFERENTIATE BETWEEN IGG AND IGM.~~~~~~~~~~~~~~~~~~~~ ~~~~~~~~~~~~~~~~~~~~~~~~ ~~~~~~~~~~~~~~~~ A POSITIVE BIAS MAY OCCUR IN PATIENTS TAKING BIOTIN SUPPLEMENTS~~~~~~~~~~~~~ ~~~~~~~~~~~~~~~~~~~~~~~~ ~~~~~~~~~~~~~~~~~~~~~~~ HEP A AB IGM QUAL (test code = HAVMAB) NEGATIVE NEGATIVE A positive bias may occur for patients taking BIOTINsupplements. AG HEPATITIS B SURFACE (test code = HBSAG) NEGATIVE NEGATIVE HEP B CORE AB IGM QL (test code = HBCMAB) NEGATIVE NEGATIVE AB HEPATITIS C (test code = HCVAB) NEGATIVE NEGATIVE [id number] 04:10:00* Test Item Value Reference Range Interpretation Comme nts MAGNESIUM (test code = MAG) 0.7 mg/dL 1.6-2.3 L CARDIAC ENZYMES [id number] 04:10:00* Test Item Value Reference Range Interpretation Comme nts TROPONIN-I (test code = TROPI) 0.032 ng/mL 0.012-0.033 N Please be advised of the updated reference ranges for the new Chemistry instrumentation. VITROS TROPONIN I CRITERIANORMAL PATIENT W/O CIRCULATING TNI: 0.012-0.033 ng/mLCIRCULATING TNI PRESENT: 0.034-0.119 ng/mL(MAY BE AT RISK OF AMI)AMI DIAGNOSTIC CUTOFF: >/= 0.120 ng/mL~~~~~~~~~~~~~~~~~~~~~~~ ~~~~~~~~~~~~~~~~~~~~~~~~~~~~ ~~~~~~~~The use of serial sampling and testing protocol is arecommended practice.An elevated troponin level alone is often not sufficient fordiagnosis of myocardial infarction. Troponin results obtained by different assays may vary.Evaluation of the extent of myocardial damage based onincrease of troponin would be valid only if similarmethodology is used.~~~~~~~~~~~~~~~~~~~~~~~ ~~~~~~~~~~~~~~~~~~~~~~~~~~~~ ~~~~~~~~ A POSITIVE BIAS MAY OCCUR FOR PATIENTS TAKING BIOTIN SUPPLEMENTS~~~~~~~~~~~~~~~~~ ~~~~~~~~~~~~~~~~~~~~~~~~~~~~ ~~~~~~~~~~~~~~ Spec Comments: Cancel third set if POC Troponin completed in EDCBC W/AUTO DIFF 2022-05-23 03:33:00* Test Item Value Reference Range Interpretation Comme nts WHITE BLOOD CELL (test code = WBC) 7.9 x10 3/uL 5.0-12.0 N RED BLOOD CELL (test code = RBC) 4.48 x10 6/uL 4.70-6.10 L HEMOGLOBIN (test code = HGB) 13.8 g/dL 14.0-18.0 L HEMATOCRIT (test code = HCT) 40.5 % 37.0-49.0 N MEAN CELL VOLUME (test code = MCV) 90 fL 80-94 N MEAN CELL HGB (test code = MCH) 30.8 pg 27-31 N MEAN CELL HGB CONCENTRATION (test code = MCHC) 34.1 g/dL 33-37 N RED CELL DISTRIBUTION WIDTH (test code = RDW) 14.1 % 11.5-15.5 N PLATELET COUNT (test code = PLT) 152 x10 3/uL 130-400 N MEAN PLATELET VOLUME (test c ode = MPV) 9.7 fL 9.4-16.4 N NEUTROPHIL % (test code = NT%) 74.8 % 43-65 H IMMATURE GRANULOCYTE % (test code = IG%) 0.4 % 0.0-2.0 N LYMPHOCYTE % (test code = LY%) 17.1 % 20.5-45.5 L MONOCYTE % (test code = MO%) 7.0 % 5.5-11.7 N EOSINOPHIL % (test code = EO%) 0.1 % 0.9-2.9 L BASOPHIL % (test code = BA%) 0.6 % 0.2-1.0 N NUCLEATED RBC % (test code = NRBC%) 0.0 % 0-1.0 N NEUTROPHIL # (test code = NT#) 5.92 x10 3/uL 2.2-4.8 H IMMATURE GRANULOCYTE # (test code = IG#) 0.03 x10 3/uL 0-0.03 N LYMPHOCYTE # (test code = LY#) 1.35 x10 3/uL 1.3-2.9 N MONOCYTE # (test code = MO#) 0.55 x10 3/uL 0.3-0.8 N EOSINOPHIL # (test code = EO#) 0.01 x10 3/uL 0.0-0.2 N BASOPHIL # (test code = BA#) 0.05 x10 3/uL 0.0-0.1 N [id number] 20:22:00* Test Item Value Reference Range Interpretation Comme nts CKMB (test code = CKMBT) 0.99 ng/mL 0.5-5.0 N A positive bias may occur for patients taking BIOTINsupplements. LACTIC [id number] 20:07:00* Test Item Value Reference Range Interpretation Comme nts LACTIC ACID (test code = LACT) 2.3 mmol/L 0.7-2.0 BASIC METABOLIC [id number] 19:16:00* Test Item Value Reference Range Interpretation Comme nts SODIUM (test code = NA) 135 mmol/L 137-145 L POTASSIUM (test code = K) 3.3 mmol/L 3.4-5.0 L CHLORIDE (test code = CL) 102 mmol/L 98-107 N CARBON DIOXIDE (test code = CO2) 25 mmol/L 22-30 N ANION GAP (test code = GAP) 12 GLUCOSE (test code = GLU) 149 mg/dL 74-106 H BLOOD UREA NITROGEN (test code = BUN) 21 mg/dL 9-20 H GLOMERULAR FILTRATION RATE (test code = GFR) 102 mL/min The Glomerular Filtration Rate is a calculated parameterbased on serum Creatinine, patient age and sex. GFR valuesless than 60 mL/min/1.73 square meters are indicative ofChronic Kidney Disease. Values less than 15 mL/min/1.73square meters indicate Kidney failure. The calculation forGFR is based on the CKD-EPI (2020) calculation. This formulais race indifferent and is the recommended formula for GFRby the National Kidney Foundation for Adults.The GFR will not calculate if the sex is unknown or if thepatient's age is <18 years. CREATININE (test code = CREAT) 0.6 mg/dL 0.7-1.3 L CALCIUM (test code = CA) 8.9 mg/dL 8.4-10.2 N INDEX HEMOLYSIS (test code = HEMINDEX) < 15 Index/DL 0-100 N LIVER FUNCTION [id number] 19:16:00* Test Item Value Reference Range Interpretation Comme nts TOTAL PROTEIN (test code = PROT) 7.6 g/dL 6.3-8.2 N "A positive bias may occur for patients taking Eltrombopag(a bone marrow stimulant used to treat thrombocytopenia andaplastic anemia)." ALBUMIN (test code = ALB) 4.0 g/dL 3.5-5.0 N BILIRUBIN TOTAL (test code = BILT) 2.7 mg/dL 0.2-1.3 H "A positive b ias may occur for patients taking Eltrombopag(a bone marrow stimulant used to treat thrombocytopenia andaplastic anemia)." BILIRUBIN CONJUGATED (test code = BILCON) 0 mg/dL 0-0.3 N "A positive bias may occur for patients taking Eltrombopag(a bone marrow stimulant used to treat thrombocytopenia andaplastic anemia)." CONJUGATED BILIRUBIN IS THE REPLACEMENT ASSAY FOR DIRECTBILIRUBIN. BILIRUBIN UNCONJUGATED (test code = BILUNC) 1.8 mg/dL 0-1.1 H SGOT/AST (test code = AST) 88 U/L 15-46 H SGPT/ALT (test code = ALT) 55 U/L 0-49 H ALKALINE PHOSPHATASE (test code = ALKP) 130 U/L 38-126 H [id number] 19:16:00* Test Item Value Reference Range Interpretation Comme nts TROPONIN-I (test code = TROPI) 0.047 ng/mL 0.012-0.033 H Please be advised of the updated reference ranges for the new Chemistry instrumentation. VITROS TROPONIN I CRITERIANORMAL PATIENT W/O CIRCULATING TNI: 0.012-0.033 ng/mLCIRCULATING TNI PRESENT: 0.034-0.119 ng/mL(MAY BE AT RISK OF AMI)AMI DIAGNOSTIC CUTOFF: >/= 0.120 ng/mL~~~~~~~~~~~~~~~~~~~~~~~ ~~~~~~~~~~~~~~~~~~~~~~~~~~~~ ~~~~~~~~The use of serial sampling and testing protocol is arecommended practice.An elevated troponin level alone is often not sufficient fordiagnosis of myocardial infarction. Troponin results obtained by different assays may vary.Evaluation of the extent of myocardial damage based onincrease of troponin would be valid only if similarmethodology is used.~~~~~~~~~~~~~~~~~~~~~~~ ~~~~~~~~~~~~~~~~~~~~~~~~~~~~ ~~~~~~~~ A POSITIVE BIAS MAY OCCUR FOR PATIENTS TAKING BIOTIN SUPPLEMENTS~~~~~~~~~~~~~~~~~ ~~~~~~~~~~~~~~~~~~~~~~~~~~~~ ~~~~~~~~~~~~~~ CBC W/AUTO [id number] 18:48:00* Test Item Value Reference Range Interpretation Comme nts WHITE BLOOD CELL (test code = WBC) 10.2 x10 3/uL 5.0-12.0 N RED BLOOD CELL (test code = RBC) 4.86 x10 6/uL 4.70-6.10 N HEMOGLOBIN (test code = HGB) 15.1 g/dL 14.0-18.0 N HEMATOCRIT (test code = HCT) 43.8 % 37.0-49.0 N MEAN CELL VOLUME (test code = MCV) 90 fL 80-94 N MEAN CELL HGB (test code = MCH) 31.1 pg 27-31 H MEAN CELL HGB CONCENTRATION (test code = MCHC) 34.5 g/dL 33-37 N RED CELL DISTRIBUTION WIDTH (test code = RDW) 14.2 % 11.5-15.5 N PLATELET COUNT (test code = PLT) 169 x10 3/uL 130-400 N MEAN PLATELET VOLUME (test c ode = MPV) 9.5 fL 9.4-16.4 N NEUTROPHIL % (test code = NT%) 78.1 % 43-65 H IMMATURE GRANULOCYTE % (test code = IG%) 0.6 % 0.0-2.0 N LYMPHOCYTE % (test code = LY%) 14.7 % 20.5-45.5 L MONOCYTE % (test code = MO%) 5.7 % 5.5-11.7 N EOSINOPHIL % (test code = EO%) 0.1 % 0.9-2.9 L BASOPHIL % (test code = BA%) 0.8 % 0.2-1.0 N NUCLEATED RBC % (test code = NRBC%) 0.0 % 0-1.0 N NEUTROPHIL # (test code = NT#) 7.95 x10 3/uL 2.2-4.8 H IMMATURE GRANULOCYTE # (test code = IG#) 0.06 x10 3/uL 0-0.03 H LYMPHOCYTE # (test code = LY#) 1.50 x10 3/uL 1.3-2.9 N MONOCYTE # (test code = MO#) 0.58 x10 3/uL 0.3-0.8 N EOSINOPHIL # (test code = EO#) 0.01 x10 3/uL 0.0-0.2 N BASOPHIL # (test code = BA#) 0.08 x10 3/uL 0.0-0.1 N - XR CHEST 1 [id number] 17:43:00 [facility] SE[facility] : 1950 Sex: M FAX: Jennie Singleton [place]: St: PRE Name: SEYMOUR DICKERSON [facility] : 1950 Age/S: 71/M [address] Unit #: [id number] Loc: [place] [address] Phys: Jennie Singleton Acct: [id number] Dis Date: Status: PRE ER PHONE #: [phone] Exam Date: 05/22/2022 1735 FAX #: [phone] Reason: CODE SEPSIS EXAMS: CPT CODE: [id number] XR CHEST 1 V 76084 EXAMINATION: - XR CHEST 1 V HISTORY: Flulike symptoms COMPARISON: None. LOCATION CODE: C3 FINDINGS: Single frontal view of the chest is submittedfor evaluation. There are moderate streaky opacities seen [...] PAGE 1 Signed Report FAX: Jennie Singleton [place]: MCSt: PRE -- Name: SEYMOUR DICKERSON [facility] : 1950 Age/S: 71/M [address] Unit #: [id number] Loc: [place] [address] Phys: Jennie Singleton Acct: [id number] Dis Date: Status: PRE ER PHONE #: [phone] Exam Date: 05/22/20221734 FAX #: [phone] Reason: CODE SEPSIS EXAMS: CPT CODE: [id number] XR CHEST 1 V 14260 (Continued) Orig Print D/T: S: 05/22/2022 (1746) PAGE 2 Signed Report- XR CHEST 1 [id number] 17:43:00 [facility] : 1950 Sex: M FAX: Jennie Singleton [place]: St: DIS Name: SEYMOUR DICKERSON [facility] : 1950 Age/S: 71/M [address] Unit #: [id number] Loc: [place] [address] Phys: Jennie Singleton Acct: [id number] Dis Date: Status: DIS IN PHONE #: [phone] Exam Date: 05/22/20221734 FAX #: [phone] Reason: CODESEPSIS EXAMS: CPT CODE: [id number] XR CHEST 1 V 74563 EXAMINATION: - XR CHEST 1 V HISTORY: [...] Sutton MD CC: Jennie Singleton Technologist: Bibi Garzard Date/Time/By: 05/22/2022 (7866) : By: [email or web address] PAGE 1 Signed Report FAX: Jennie Singleton [place]: St: DIS -- Name: SEYMOUR DICKERSON [facility] : 1950 Age/S: 71/M [address] Unit #: [id number] Loc: [place] [address] Phys: Jennie Singleton Acct: [id number] Dis Date: Status: DIS IN PHONE #: [phone] Exam Date: 05/22/2022 1735 FAX #: [phone] Reason: CODE SEPSIS EXAMS: CPT CODE: [id number] XR CHEST 1 V 75871 (Continued) Orig Print D/T: S: 05/22/2022 (3751) PAGE 2 Signed ReportMRI ABDOMEN [id number] 09:31:55 [facility] IM[facility] SEYMOUR MAURO : 1950 Sex: MCLINICAL INDICATION: R10.13 Epigastric pain Z87.19 Personal history of other diseases of the digestivesystem MODALITY: Siemens Skyra 3.0 [place]ul[place] MRITECHNIQUE: Parallel imaging is accomplished using T2, diffusion, in-phase, ajd-bp-miixd, and breath- holding sequences. IV contrast (Multihance), 20 ml is administered. Dynamic post-contrast fat saturation breath-hold imaging is then performed.IMPRESSION:1. Status post cholecystectomy with mild dilatation of common bile duct related to post cholecystectomy state.2. Relatively small liver with slightly serrated border and a 2 cm simple cyst.3. Spleen ismildly enlarged. Hepatic and portal veins are patent. Prominent varicosities around the spleen decompress into the left renal vein (splenorenal shunt).FINDINGS:COMPARISON: noneLung bases are clear. No pleural fluid is seen.Liver is relatively small. Left lobe of the liver is disproportionately larger than the right. There is mild separation of the anterior left lobe of the liver. There is a 2.3 x2 cm simple cyst in the inferior right lobe of the liver. No masses or evidence of biliary dilatatio n.Hepatic artery, hepatic veins and portal veins are normal in size and patent.Gallbladder has beensurgically removed. Common bile duct at the elinor pelvis measures 7 mm. Duct tapers normally into the duodenum at the ampulla of Vater. Spleen is slightly enlarged measuring 13 cm cranial caudad and 12 cm AP. The there are varicose veins around the hilum of the spleen that appear to decompress intothe left renal vein.. The stomach appears unremarkable.Pancreas is morphologically normal. No mass,pancreatic duct dilatation or peripancreatic edema is visible.Adrenal glands and kidneys are morphologically normal. There is a 9 mm exophytic cortical cyst of the inferior left kidney. There is no solid mass. No hydronephrosis. Neither retrocrural nor retroperitoneal lymph nodes are seen. No retroperitoneal mass is present. No vascular abnormalities are noted.Abdominal wall is intact. No evidence of ascites.No evidence of bowel mass, mural thickening or pericolic edema.Osseous structures are not remarkable. [id number] 16:56:00* Test Item Value Reference Range Interpretation Comme nts GLUBED (test code = GLUBED) 171 MG/DL 74-106 H [id number] 11:49:00* Test Item Value Reference Range Interpretation Comme nts GLUBED (test code = GLUBED) 161 MG/DL 74-106 H [id number] 05:56:00* Test Item Value Reference Range Interpretation Comme nts GLUBED (test code = GLUBED) 112 MG/DL 74-106 H [id number] 21:07:00* Test Item Value Reference Range Interpretation Comme nts GLUBED (test code = GLUBED) 158 MG/DL 74-106 H [id number] 17:37:00* Test Item Value Reference Range Interpretation Comme nts GLUBED (test code = GLUBED) 120 MG/DL 74-106 H - CT ABD PELVIS [id number] 17:13:00FAX: Darrick Zapata [facility] [phone] [place]: St: [facility] FAX: Allie Mason [phone] Name: SEYMOUR SNOW [facility] : 1950 Age/S: 69/M [address] Unit: [id number] Loc: [address] [place] [address] Phys: Allie Phelps MD Acct: [id number] Dis Date: Status: ADM IN PHONE #: [phone] Exam Date: 10/19/2019 1703 FAX #: [phone] Reason: F/U ON ABSCESS EXAMS: CPT CODE: [id number] CT ABD PELVIS W/CONT 65261 Examination: CT scan abdomen and pelvis with [...] than 60. COMPARISON: 10/03/2019. Discussion: Clinical history issignificant for abscess in gallbladder fossa. Follow-up. When compared to the prior examination theabscess previously described in the gallbladder fossa is almost completely resolved. Some residual inflammatory changes are identified. No discrete abscess is remaining. A small cyst is identified inthe right lobe liver unchanged in size. The remainder the liver, spleen, adrenal glands, pancreas and kidneys are normal in appearance. 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 No enlarged retroperitoneal, pelvic or inguinal adenopathy is identified. The bladder is moderately distended and is grossly unremarkable. No other abnormal masses or fluid collections identified within the abdomen and/orpelvis. A wecpq-yz-auaurotm right pleural effusion is identified with right basilar atelectasis. Small left pleural effusion is also noted. There are essentially unchanged or minimally increased in size. IMPRESSION: 1. Almost complete resolution of the fluid collection/abscess in the gallbladder fossa as detailed above. 2. Persistent bilateral pleural effusions with adjacent atelectatic changes. 3. Simple cyst in the right lobe liver. at 1713 Reported and signed by: Miller Ayala MD PAGE 1 Signed Report (CONTINUED) FAX: Darrick Zapata [phone] [place]: St: ADM FAX: Allie Mason Alfonso [phone] Name: SEYMOUR SNOW [facility] : 1950 Age/S: 69/M [address] Unit: [id number] Loc: [address] [place] [address] Phys: Allie Phelps MD Acct: [id number] Dis Date: Status: ADM IN PHONE #: [phone] Exam Date:10/19/2019 1703 FAX #: [phone] Reason: F/U ON ABSCESS EXAMS: CPT CODE: [id number] CT ABD PELVISW/CONT 73526 (Continued) CC: Darrick Benson; Allie Phelps MD Technologist: Reba Santosscrd Dt/Tm: 10/19/2019 (1713) [id number] Orig Print D/T: S: 10/19/2019 (1716 PAGE 2 Signed ReportGLUBED 2019-10-19 11:25:00* Test Item Value Reference Range Interpretation Comme nts GLUBED (test code = GLUBED) 143 MG/DL 74-106 H [id number] 05:46:00* Test Item Value Reference Range Interpretation Comme nts GLUBED (test code = GLUBED) 114 MG/DL 74-106 H [id number] 21:22:00* Test Item Value Reference Range Interpretation Comme nts GLUBED (test code = GLUBED) 155 MG/DL 74-106 H [id number] 17:42:00* Test Item Value Reference Range Interpretation Comme nts GLUBED (test code = GLUBED) 148 MG/DL 74-106 H [id number] 11:35:00* Test Item Value Reference Range Interpretation Comme nts GLUBED (test code = GLUBED) 186 MG/DL 74-106 H [id number] 05:30:00* Test Item Value Reference Range Interpretation Comme nts GLUBED (test code = GLUBED) 105 MG/DL 74-106 N [id number] 20:53:00* Test Item Value Reference Range Interpretation Comme nts GLUBED (test code = GLUBED) 135 MG/DL 74-106 H [id number] 16:32:00* Test Item Value Reference Range Interpretation Comme nts GLUBED (test code = GLUBED) 138 MG/DL 74-106 H [id number] 11:19:00* Test Item Value Reference Range Interpretation Comme nts GLUBED (test code = GLUBED) 148 MG/DL 74-106 H [id number] 05:44:00* Test Item Value Reference Range Interpretation Comme nts GLUBED (test code = GLUBED) 106 MG/DL 74-106 N [id number] 21:32:00* Test Item Value Reference Range Interpretation Comme nts GLUBED (test code = GLUBED) 164 MG/DL 74-106 H [id number] 18:31:00* Test Item Value Reference Range Interpretation Comme nts GLUBED (test code = GLUBED) 128 MG/DL 74-106 H [id number] 11:46:00* Test Item Value Reference Range Interpretation Comme nts GLUBED (test code = GLUBED) 176 MG/DL 74-106 H [id number] 05:46:00* Test Item Value Reference Range Interpretation Comme nts GLUBED (test code = GLUBED) 116 MG/DL 74-106 H [id number] 21:00:00* Test Item Value Reference Range Interpretation Comme nts GLUBED (test code = GLUBED) 167 MG/DL 74-106 H [id number] 17:36:00* Test Item Value Reference Range Interpretation Comme nts GLUBED (test code = GLUBED) 124 MG/DL 74-106 H [id number] 12:35:00* Test Item Value Reference Range Interpretation Comme nts GLUBED (test code = GLUBED) 198 MG/DL 74-106 H [id number] 05:47:00* Test Item Value Reference Range Interpretation Comme nts GLUBED (test code = GLUBED) 112 MG/DL 74-106 H [id number] 02:39:00* Test Item Value Reference Range Interpretation Comme nts CREATININE (test code = CREAT) < 0.5 mg/dL 0.7-1.3 L CBC W/AUTO [id number] 02:15:00* Test Item Value Reference Range Interpretation Comme nts WHITE BLOOD CELL (test code = WBC) 6.0 x10 3/uL 5.0-12.0 N RED BLOOD CELL (test code = RBC) 3.26 x10 6/uL 4.70-6.10 L HEMOGLOBIN (test code = HGB) 10.2 g/dL 14.0-18.0 L HEMATOCRIT (test code = HCT) 29.2 % 37.0-49.0 L MEAN CELL VOLUME (test code = MCV) 90 fL 80-94 N MEAN CELL HGB (test code = MCH) 31.3 pg 27-31 H MEAN CELL HGB CONCENTRATION (test code = MCHC) 34.9 g/dL 33-37 N RED CELL DISTRIBUTION WIDTH (test code = RDW) 12.8 % 11.5-15.5 N PLATELET COUNT (test code = PLT) 333 x10 3/uL 130-400 N MEAN PLATELET VOLUME (test c ode = MPV) 8.9 fL 9.4-16.4 L NEUTROPHIL % (test code = NT%) 53.4 % 43-65 N IMMATURE GRANULOCYTE % (test code = IG%) 0.3 % 0.0-2.0 N LYMPHOCYTE % (test code = LY%) 31.5 % 20.5-45.5 N MONOCYTE % (test code = MO%) 10.5 % 5.5-11.7 N EOSINOPHIL % (test code = EO%) 3.3 % 0.9-2.9 H BASOPHIL % (test code = BA%) 1.0 % 0.2-1.0 N NUCLEATED RBC % (test code = NRBC%) 0.0 % 0-1.0 N NEUTROPHIL # (test code = NT#) 3.20 x10 3/uL 2.2-4.8 N IMMATURE GRANULOCYTE # (test code = IG#) 0.02 x10 3/uL 0-0.03 N LYMPHOCYTE # (test code = LY#) 1.89 x10 3/uL 1.3-2.9 N MONOCYTE # (test code = MO#) 0.63 x10 3/uL 0.3-0.8 N EOSINOPHIL # (test code = EO#) 0.20 x10 3/uL 0.0-0.2 N BASOPHIL # (test code = BA#) 0.06 x10 3/uL 0.0-0.1 N [id number] 20:35:00* Test Item Value Reference Range Interpretation Comme nts GLUBED (test code = GLUBED) 144 MG/DL 74-106 H [id number] 17:34:00* Test Item Value Reference Range Interpretation Comme nts GLUBED (test code = GLUBED) 144 MG/DL 74-106 H [id number] 11:57:00* Test Item Value Reference Range Interpretation Comme nts GLUBED (test code = GLUBED) 143 MG/DL 74-106 H [id number] 06:18:00* Test Item Value Reference Range Interpretation Comme nts GLUBED (test code = GLUBED) 110 MG/DL 74-106 H [id number] 21:46:00* Test Item Value Reference Range Interpretation Comme nts GLUBED (test code = GLUBED) 160 MG/DL 74-106 H [id number] 17:25:00* Test Item Value Reference Range Interpretation Comme nts GLUBED (test code = GLUBED) 144 MG/DL 74-106 H [id number] 11:57:00* Test Item Value Reference Range Interpretation Comme nts GLUBED (test code = GLUBED) 164 MG/DL 74-106 H [id number] 06:09:00* Test Item Value Reference Range Interpretation Comme nts GLUBED (test code = GLUBED) 120 MG/DL 74-106 H [id number] 21:32:00* Test Item Value Reference Range Interpretation Comme nts GLUBED (test code = GLUBED) 137 MG/DL 74-106 H [id number] 17:24:00* Test Item Value Reference Range Interpretation Comme nts GLUBED (test code = GLUBED) 122 MG/DL 74-106 H [id number] 11:27:00* Test Item Value Reference Range Interpretation Comme nts GLUBED (test code = GLUBED) 223 MG/DL 74-106 H BASIC METABOLIC [id number] 05:37:00* Test Item Value Reference Range Interpretation Comme nts SODIUM (test code = NA) 134 mmol/L 137-145 L POTASSIUM (test code = K) 3.6 mmol/L 3.4-5.0 N CHLORIDE (test code = CL) 94 mmol/L 98-107 L CARBON DIOXIDE (test code = CO2) 33 mmol/L 22-30 H GLUCOSE (test code = GLU) 109 mg/dL 74-106 H BLOOD UREA NITROGEN (test code = BUN) 7 mg/dL 9-20 L GLOMERULAR FILTRATION RATE (test code = GFR) 174 >60 The estimated glomerular filtration rate is computed usingpatient race, age (>18), sex, and serum creatinine. If anyof the needed data elements are missing the Laboratory cannot compute an estimation of the glomerular filtration rate. CREATININE (test code = CREAT) < 0.5 mg/dL 0.7-1.3 L CALCIUM (test code = CA) 8.1 mg/dL 8.4-10.2 L [id number] 05:33:00* Test Item Value Reference Range Interpretation Comme nts GLUBED (test code = GLUBED) 118 MG/DL 74-106 H [id number] 21:05:00* Test Item Value Reference Range Interpretation Comme nts GLUBED (test code = GLUBED) 159 MG/DL 74-106 H [id number] 17:32:00* Test Item Value Reference Range Interpretation Comme nts GLUBED (test code = GLUBED) 145 MG/DL 74-106 H - XR CHEST 1 [id number] 16:12:00FAX: aDrrick Zapata [facility] [phone] [place]: St: ADM FAX: Shola Lemus DO [phone] -------- Name: SEYMOUR SNOW [facility] : 1950 Age/S: 69/M [address] Unit #: [id number] Loc: C.[address] [place] [address] Phys: Shola Cuba DO Acct: [id number] Dis Date: Status: ADM IN PHONE #: [phone] Exam Date: 10/11/2019 [facility] FAX #: [phone] Reason: FOLLOW UP EXAMS: CPT CODE: [id number] XR CHEST 1 V 09594 EXAM: Portable chest x-ray Dictation location: T18 COMPARISON: Chest x-ray on 10/03/2019 and chest x-ray on 10/02/2019 INDICATION: FOLLOW UP DISCUSSION: There is partial consolidation at theright lung base and left cardiac region, and discoid atelectasis over the mid to lower lungs bilater ally. A small to moderate-sized right pleural effusion is seen. The cardiac silhouette is within normal limits. No acute bony abnormalities are identified. IMPRESSION: 1. Small to moderate-sized right pleural effusion, slightly increased. 2. Bibasilar partial consolidation, probably due to atelectasis. Pneumonia is not entirely excluded. at 1612 Reported and signed by: Donnie Blackwell MD CC: Darrick Benson; Shola Niño Technologist: Bibi Macias Date/Time/By: 10/11/2019 (1611) : By: [email or web address] PAGE 1 Signed Report FAX: Darrick Zapata [phone] [place]: St: ADM FAX: Shola Lemus DO [phone] Name: SEYMOUR SNOW [facility] : 1950 Age/S: 69/M [address] Unit #: [id number] Loc: C.[address] [place] [address] Phys: Shola Cuba DO Acct: [id number] Dis Date: Status: ADM IN PHONE #: [phone] Exam Date: 10/11/2019 1445 FAX #: [phone] Reason: FOLLOW UP EXAMS: CPT CODE: [id number] XR CHEST 1 V 27920 (Continued) Orig Print D/T: S: 10/11/2019 (1613) PAGE 2 Signed [id number] 11:55:00* Test Item Value Reference Range Interpretation Comme nts GLUBED (test code = GLUBED) 156 MG/DL 74-106 H [id number] 06:04:00* Test Item Value Reference Range Interpretation Comme nts GLUBED (test code = GLUBED) 132 MG/DL 74-106 H [id number] 20:54:00* Test Item Value Reference Range Interpretation Comme nts GLUBED (test code = GLUBED) 146 MG/DL 74-106 H [id number] 17:47:00* Test Item Value Reference Range Interpretation Comme nts GLUBED (test code = GLUBED) 134 MG/DL 74-106 H - XR C-SPINE 2-3 [id number] 17:38:00FAX: Darrick Zapata [phone] [place]: St: ADM FAX: N Shola Cuba DO [phone] -------- Name: JAYLA SARAHSEYMOUR VELASQUEZ [facility] : 1950 Age/S: 69/M [address] Unit #: [id number] Loc: C.[address] [place] [address] Phys: Shola Cuba DO Acct: [id number] Dis Date: Status: ADM IN PHONE #: [phone] Exam Date: 10/10/2019 165 FAX #: [phone] Reason: NECK PAIN EXAMS: CPT CODE: [id number] XR C-SPINE 2-3 VIEWS 96289 EXAM: Cervical spine series, 4 views Dictation [...] C5-6 on the lateral view appear well-preserved. Moderatemultilevel facet arthrosis is noted. Uncovertebral joints are [...] Darrick Benson; Shola Niño Technologist: Gabriella Rouse [facility] Date/Time/By: 10/10/2019 (1738) : By: [email or web address] PAGE 1 Signed Report FAX: Darrick Zapata [phone] [place]: St: [facility] FAX: Shola Lemus DO [phone] Name: JAYLA SARAHSEYMOUR VELASQUEZ [facility] : 1950 Age/S: 69/M [address] Unit #: [id number] Loc: C.[address] [place] [address] Phys: Shola Cuba DO Acct: [id number] DisDate: Status: ADM IN PHONE #: [phone] Exam Date: 10/10/2019 1653 FAX #: [phone] Reason: NECK PAIN EXAMS: CPT CODE: [id number] XR C-SPINE 2-3 VIEWS 90003 (Continued) Orig Print D/T: S: 10/10/2019 (7120) PAGE 2 Signed [id number] 11:32:00* Test Item Value Reference Range Interpretation Comme nts GLUBED (test code = GLUBED) 156 MG/DL 74-106 H [id number] 06:16:00* Test Item Value Reference Range Interpretation Comme nts GLUBED (test code = GLUBED) 154 MG/DL 74-106 H [id number] 21:12:00* Test Item Value Reference Range Interpretation Comme nts GLUBED (test code = GLUBED) 121 MG/DL 74-106 H [id number] 16:57:00* Test Item Value Reference Range Interpretation Comme nts GLUBED (test code = GLUBED) 135 MG/DL 74-106 H [id number] 11:45:00* Test Item Value Reference Range Interpretation Comme nts GLUBED (test code = GLUBED) 190 MG/DL 74-106 H [id number] 06:01:00* Test Item Value Reference Range Interpretation Comme nts GLUBED (test code = GLUBED) 141 MG/DL 74-106 H [id number] 21:55:00* Test Item Value Reference Range Interpretation Comme nts GLUBED (test code = GLUBED) 175 MG/DL 74-106 H [id number] 17:19:00* Test Item Value Reference Range Interpretation Comme nts GLUBED (test code = GLUBED) 187 MG/DL 74-106 H [id number] 11:12:00* Test Item Value Reference Range Interpretation Comme nts GLUBED (test code = GLUBED) 191 MG/DL 74-106 H [id number] 05:40:00* Test Item Value Reference Range Interpretation Comme nts GLUBED (test code = GLUBED) 130 MG/DL 74-106 H [id number] 21:11:00* Test Item Value Reference Range Interpretation Comme nts GLUBED (test code = GLUBED) 170 MG/DL 74-106 H [id number] 17:29:00* Test Item Value Reference Range Interpretation Comme nts GLUBED (test code = GLUBED) 180 MG/DL 74-106 H [id number] 11:49:00* Test Item Value Reference Range Interpretation Comme nts GLUBED (test code = GLUBED) 181 MG/DL 74-106 H [id number] 05:55:00* Test Item Value Reference Range Interpretation Comme nts GLUBED (test code = GLUBED) 126 MG/DL 74-106 H [id number] 20:58:00* Test Item Value Reference Range Interpretation Comme nts GLUBED (test code = GLUBED) 151 MG/DL 74-106 H URINALYSIS [id number] 19:51:00* Test Item Value Reference Range Interpretation Comme nts UA COLOR (test code = COLU) Yellow Yellow UA APPEARANCE (test code = APPU) Clear Clear UA GLUCOSE DIPSTICK (test co de = DGLUU) Negative Negative UA BILIRUBIN DIPSTICK (test code = BILU) Negative Negative UA KETONE DIPSTICK (test cod e = KETU) Negative mg/dL Negative UA SPECIFIC GRAVITY (test co de = SGU) 1.015 <1.030 UA BLOOD DIPSTICK (test code = BUTCH) Negative Negative UA PH DIPSTICK (test code = ECHO) 6.0 5.0-8.0 UA PROTEIN DIPSTICK (test co de = PROU) NEGATIVE mg/dL Negative UA UROBILINOGEN DIPSTICK (te st code = URO) 4.0 mg/dL Negative A UA NITRITE DIPSTICK (test co de = SHANDA) Negative Negative UA LEUKOCYTE ESTERASE DIPSTI CK (test code = LEUU) NEGATIVE Negative UA WBC (test code = WBCU) 0-3 /HPF <4-5 UA RBC (test code = RBCU) 0-3 /HPF <4-5 UA BACTERIA (test code = BACU) None /HPF None-Rare UA MUCUS (test code = MUCU) Rare /LPF <Rare COMPREHENSIVE METABOLIC [id number] 18:49:00* Test Item Value Reference Range Interpretation Comme nts SODIUM (test code = NA) 131 mmol/L 137-145 L POTASSIUM (test code = K) 3.5 mmol/L 3.4-5.0 N CHLORIDE (test code = CL) 92 mmol/L 98-107 L CARBON DIOXIDE (test code = CO2) 33 mmol/L 22-30 H GLUCOSE (test code = GLU) 170 mg/dL 74-106 H BLOOD UREA NITROGEN (test code = BUN) 7 mg/dL 9-20 L GLOMERULAR FILTRATION RATE (test code = GFR) 174 >60 The estim ated glomerular filtration rate is computed usingpatient race, age (>18), sex, and serum creatinine. If anyof the needed data elements are missing the Laboratory cannot compute an estimation of the glomerular filtration rate. CREATININE (test code = CREAT) 0.5 mg/dL 0.7-1.3 L TOTAL PROTEIN (test code = PROT) 6.3 g/dL 6.3-8.2 N ALBUMIN (test code = ALB) 2.9 g/dL 3.5-5.0 L CALCIUM (test code = CA) 7.7 mg/dL 8.4-10.2 L BILIRUBIN TOTAL (test code = BILT) 0.8 mg/dL 0.2-1.3 N BILIRUBIN CONJUGATED (test code = BILCON) 0 mg/dL 0-0.3 N ~~~~~~~~~~~ ~~~~~~~~~~ ~~~~~~~~~~~~~~~~~~~~~ ~~~~~~~~~~~~~~~~~~CON JUGATED BILIRUBIN IS THE REPLACEMENT ASSAY FOR DIRECTBILIRUBIN.~~~~~ ~~~~~~~~~~~~~~~~~~~~~ ~~~~~~~~~~~~~~~~~~~~~ ~~~~~~~~~~~~~ BILIRUBIN UNCONJUGATED (test code = BILUNC) 0.4 mg/dL 0-1.1 N SGOT/AST (test code = AST) 44 U/L 15-46 N SGPT/ALT (test code = ALT) 43 U/L 13-69 N ALKALINE PHOSPHATASE (test code = ALKP) 228 U/L 38-126 H CBC W/AUTO [id number] 18:34:00* Test Item Value Reference Range Interpretation Comme nts WHITE BLOOD CELL (test code = WBC) 7.8 x10 3/uL 5.0-12.0 N RED BLOOD CELL (test code = RBC) 3.25 x10 6/uL 4.70-6.10 L HEMOGLOBIN (test code = HGB) 10.1 g/dL 14.0-18.0 L HEMATOCRIT (test code = HCT) 29.9 % 37.0-49.0 L MEAN CELL VOLUME (test code = MCV) 92 fL 80-94 N MEAN CELL HGB (test code = MCH) 31.1 pg 27-31 H MEAN CELL HGB CONCENTRATION (test code = MCHC) 33.8 g/dL 33-37 N RED CELL DISTRIBUTION WIDTH (test code = RDW) 13.1 % 11.5-15.5 N PLATELET COUNT (test code = PLT) 248 x10 3/uL 130-400 N MEAN PLATELET VOLUME (test c ode = MPV) 9.1 fL 9.4-16.4 L NEUTROPHIL % (test code = NT%) 65.8 % 43-65 H IMMATURE GRANULOCYTE % (test code = IG%) 0.5 % 0.0-2.0 N LYMPHOCYTE % (test code = LY%) 19.6 % 20.5-45.5 L MONOCYTE % (test code = MO%) 8.6 % 5.5-11.7 N EOSINOPHIL % (test code = EO%) 5.0 % 0.9-2.9 H BASOPHIL % (test code = BA%) 0.5 % 0.2-1.0 N NUCLEATED RBC % (test code = NRBC%) 0.0 % 0-1.0 N NEUTROPHIL # (test code = NT#) 5.12 x10 3/uL 2.2-4.8 H IMMATURE GRANULOCYTE # (test code = IG#) 0.04 x10 3/uL 0-0.03 H LYMPHOCYTE # (test code = LY#) 1.53 x10 3/uL 1.3-2.9 N MONOCYTE # (test code = MO#) 0.67 x10 3/uL 0.3-0.8 N EOSINOPHIL # (test code = EO#) 0.39 x10 3/uL 0.0-0.2 H BASOPHIL # (test code = BA#) 0.04 x10 3/uL 0.0-0.1 N [id number] 15:36:00* Test Item Value Reference Range Interpretation Comme nts MAGNESIUM (test code = MAG) 1.8 mg/dL 1.6-2.3 N [id number] 15:33:00* Test Item Value Reference Range Interpretation Comme nts GLUBED (test code = GLUBED) 237 MG/DL 74-106 H [id number] 12:00:00* Test Item Value Reference Range Interpretation Comme nts GLUBED (test code = GLUBED) 199 MG/DL 74-106 H [id number] 06:01:00* Test Item Value Reference Range Interpretation Comme nts GLUBED (test code = GLUBED) 125 MG/DL 74-106 H COMPREHENSIVE METABOLIC [id number] 03:57:00* Test Item Value Reference Range Interpretation Comme nts SODIUM (test code = NA) 131 mmol/L 137-145 L POTASSIUM (test code = K) 3.6 mmol/L 3.4-5.0 N CHLORIDE (test code = CL) 95 mmol/L 98-107 L CARBON DIOXIDE (test code = CO2) 32 mmol/L 22-30 H GLUCOSE (test code = GLU) 124 mg/dL 74-106 H BLOOD UREA NITROGEN (test code = BUN) 7 mg/dL 9-20 L GLOMERULAR FILTRATION RATE (test code = GFR) 174 >60 The estimated glomerular filtration rate is computed usingpatient race, age (>18), sex, and serum creatinine. If anyof the needed data elements are missing the Laboratory cannot compute an estimation of the glomerular filtration rate. CREATININE (test code = CREAT) < 0.5 mg/dL 0.7-1.3 L TOTAL PROTEIN (test code = PROT) 6.1 g/dL 6.3-8.2 L ALBUMIN (test code = ALB) 2.8 g/dL 3.5-5.0 L CALCIUM (test code = CA) 7.7 mg/dL 8.4-10.2 L BILIRUBIN TOTAL (test code = BILT) 1.1 mg/dL 0.2-1.3 N BILIRUBIN CONJUGATED (test code = BILCON) 0 mg/dL 0-0.3 N ~~~~~~~~~~~ ~~~~~~~~~~ ~~~~~~~~~~~~~~~~~~~~~ ~~~~~~~~~~~~~~~~~~CON JUGATED BILIRUBIN IS THE REPLACEMENT ASSAY FOR DIRECTBILIRUBIN.~~~~~ ~~~~~~~~~~~~~~~~~~~~~ ~~~~~~~~~~~~~~~~~~~~~ ~~~~~~~~~~~~~ BILIRUBIN UNCONJUGATED (test code = BILUNC) 0.5 mg/dL 0-1.1 N SGOT/AST (test code = AST) 44 U/L 15-46 N SGPT/ALT (test code = ALT) 42 U/L 13-69 N ALKALINE PHOSPHATASE (test code = ALKP) 221 U/L 38-126 H [id number] 03:57:00* Test Item Value Reference Range Interpretation Comme nts MAGNESIUM (test code = MAG) 1.0 mg/dL 1.6-2.3 L CBC W/AUTO [id number] 03:42:00* Test Item Value Reference Range Interpretation Comme nts WHITE BLOOD CELL (test code = WBC) 7.8 x10 3/uL 5.0-12.0 N RED BLOOD CELL (test code = RBC) 3.28 x10 6/uL 4.70-6.10 L HEMOGLOBIN (test code = HGB) 10.1 g/dL 14.0-18.0 L HEMATOCRIT (test code = HCT) 29.8 % 37.0-49.0 L MEAN CELL VOLUME (test code = MCV) 91 fL 80-94 N MEAN CELL HGB (test code = MCH) 30.8 pg 27-31 N MEAN CELL HGB CONCENTRATION (test code = MCHC) 33.9 g/dL 33-37 N RED CELL DISTRIBUTION WIDTH (test code = RDW) 12.9 % 11.5-15.5 N PLATELET COUNT (test code = PLT) 220 x10 3/uL 130-400 N MEAN PLATELET VOLUME (test c ode = MPV) 9.0 fL 9.4-16.4 L NEUTROPHIL % (test code = NT%) 67.5 % 43-65 H IMMATURE GRANULOCYTE % (test code = IG%) 0.6 % 0.0-2.0 N LYMPHOCYTE % (test code = LY%) 18.6 % 20.5-45.5 L MONOCYTE % (test code = MO%) 7.3 % 5.5-11.7 N EOSINOPHIL % (test code = EO%) 5.2 % 0.9-2.9 H BASOPHIL % (test code = BA%) 0.8 % 0.2-1.0 N NUCLEATED RBC % (test code = NRBC%) 0.0 % 0-1.0 N NEUTROPHIL # (test code = NT#) 5.24 x10 3/uL 2.2-4.8 H IMMATURE GRANULOCYTE # (test code = IG#) 0.05 x10 3/uL 0-0.03 H LYMPHOCYTE # (test code = LY#) 1.44 x10 3/uL 1.3-2.9 N MONOCYTE # (test code = MO#) 0.57 x10 3/uL 0.3-0.8 N EOSINOPHIL # (test code = EO#) 0.40 x10 3/uL 0.0-0.2 H BASOPHIL # (test code = BA#) 0.06 x10 3/uL 0.0-0.1 N [id number] 20:50:00* Test Item Value Reference Range Interpretation Comme nts GLUBED (test code = GLUBED) 160 MG/DL 74-106 H [id number] 16:31:00* Test Item Value Reference Range Interpretation Comme nts GLUBED (test code = GLUBED) 217 MG/DL 74-106 H [id number] 12:02:00* Test Item Value Reference Range Interpretation Comme nts GLUBED (test code = GLUBED) 224 MG/DL 74-106 H COMPREHENSIVE METABOLIC [id number] 06:13:00* Test Item Value Reference Range Interpretation Comme nts SODIUM (test code = NA) 136 mmol/L 137-145 L POTASSIUM (test code = K) 3.6 mmol/L 3.4-5.0 N CHLORIDE (test code = CL) 98 mmol/L 98-107 N CARBON DIOXIDE (test code = CO2) 31 mmol/L 22-30 H GLUCOSE (test code = GLU) 121 mg/dL 74-106 H BLOOD UREA NITROGEN (test code = BUN) 4 mg/dL 9-20 L GLOMERULAR FILTRATION RATE (test code = GFR) 174 >60 The estim ated glomerular filtration rate is computed usingpatient race, age (>18), sex, and serum creatinine. If anyof the needed data elements are missing the Laboratory cannot compute an estimation of the glomerular filtration rate. CREATININE (test code = CREAT) 0.5 mg/dL 0.7-1.3 L TOTAL PROTEIN (test code = PROT) 5.9 g/dL 6.3-8.2 L ALBUMIN (test code = ALB) 2.7 g/dL 3.5-5.0 L CALCIUM (test code = CA) 8.0 mg/dL 8.4-10.2 L BILIRUBIN TOTAL (test code = BILT) 1.1 mg/dL 0.2-1.3 N BILIRUBIN CONJUGATED (test code = BILCON) 0 mg/dL 0-0.3 N ~~~~~~~~~~~ ~~~~~~~~~~ ~~~~~~~~~~~~~~~~~~~~~ ~~~~~~~~~~~~~~~~~~CON JUGATED BILIRUBIN IS THE REPLACEMENT ASSAY FOR DIRECTBILIRUBIN.~~~~~ ~~~~~~~~~~~~~~~~~~~~~ ~~~~~~~~~~~~~~~~~~~~~ ~~~~~~~~~~~~~ BILIRUBIN UNCONJUGATED (test code = BILUNC) 0.6 mg/dL 0-1.1 N SGOT/AST (test code = AST) 44 U/L 15-46 N SGPT/ALT (test code = ALT) 43 U/L 13-69 N ALKALINE PHOSPHATASE (test code = ALKP) 223 U/L 38-126 H [id number] 05:57:00* Test Item Value Reference Range Interpretation Comme nts GLUBED (test code = GLUBED) 122 MG/DL 74-106 H CBC W/AUTO [id number] 05:45:00* Test Item Value Reference Range Interpretation Comme nts WHITE BLOOD CELL (test code = WBC) 8.3 x10 3/uL 5.0-12.0 N RED BLOOD CELL (test code = RBC) 3.26 x10 6/uL 4.70-6.10 L HEMOGLOBIN (test code = HGB) 10.2 g/dL 14.0-18.0 L HEMATOCRIT (test code = HCT) 29.7 % 37.0-49.0 L MEAN CELL VOLUME (test code = MCV) 91 fL 80-94 N MEAN CELL HGB (test code = MCH) 31.3 pg 27-31 H MEAN CELL HGB CONCENTRATION (test code = MCHC) 34.3 g/dL 33-37 N RED CELL DISTRIBUTION WIDTH (test code = RDW) 13.1 % 11.5-15.5 N PLATELET COUNT (test code = PLT) 233 x10 3/uL 130-400 N MEAN PLATELET VOLUME (test c ode = MPV) 9.6 fL 9.4-16.4 N NEUTROPHIL % (test code = NT%) 70.7 % 43-65 H IMMATURE GRANULOCYTE % (test code = IG%) 0.5 % 0.0-2.0 N LYMPHOCYTE % (test code = LY%) 18.0 % 20.5-45.5 L MONOCYTE % (test code = MO%) 6.8 % 5.5-11.7 N EOSINOPHIL % (test code = EO%) 3.4 % 0.9-2.9 H BASOPHIL % (test code = BA%) 0.6 % 0.2-1.0 N NUCLEATED RBC % (test code = NRBC%) 0.0 % 0-1.0 N NEUTROPHIL # (test code = NT#) 5.87 x10 3/uL 2.2-4.8 H IMMATURE GRANULOCYTE # (test code = IG#) 0.04 x10 3/uL 0-0.03 H LYMPHOCYTE # (test code = LY#) 1.49 x10 3/uL 1.3-2.9 N MONOCYTE # (test code = MO#) 0.56 x10 3/uL 0.3-0.8 N EOSINOPHIL # (test code = EO#) 0.28 x10 3/uL 0.0-0.2 H BASOPHIL # (test code = BA#) 0.05 x10 3/uL 0.0-0.1 N [id number] 21:12:00* Test Item Value Reference Range Interpretation Comme nts GLUBED (test code = GLUBED) 194 MG/DL 74-106 H [id number] 16:28:00* Test Item Value Reference Range Interpretation Comme nts TROPONIN-I (test code = TROPI) < 0.012 ng/mL 0.012-0.033 L Please be advised of the updated reference ranges for the new Chemistry instrumentation. VITROS TROPONIN I CRITERIANORMAL PATIENT W/O CIRCULATING TNI: 0.012-0.033 ng/mLCIRCULATING TNI PRESENT: 0.034-0.119 ng/mL(MAY BE AT RISK OF AMI)AMI DIAGNOSTIC CUTOFF: >/= 0.120 ng/mL~~~~~~~~~~~~~~~~~~~~~~ ~~~~~~~~~~~~~~~~~~~~~~~~~~~ ~~~~~~~~~~The use of serial sampling and testing protocol is arecommended practice.An elevated troponin level alone is often not sufficient fordiagnosis of myocardial infarction. Troponin results obtained by different assays may vary.Evaluation of the extent of myocardial damage based onincrease of troponin would be valid only if similarmethodology is used.~~~~~~~~~~~~~~~~~~~~~~ ~~~~~~~~~~~~~~~~~~~~~~~~~~~ ~~~~~~~~~~ [id number] 16:19:00* Test Item Value Reference Range Interpretation Comme nts GLUBED (test code = GLUBED) 203 MG/DL 74-106 H - US ABDOMEN [id number] 15:42:00FAX: Lizzy Petersen MD [phone] [place]: St: ADM Name: SEYMOUR SNOW [facility] : 1950 Age/S: 69/M [address] Unit #: [id number] Loc: [address] [place] [address] Phys: Jake Grant MD Acct: [id number] Dis Date: Status: ADM IN PHONE #: [phone] Exam Date: 10/04/2019 1301 FAX #: [phone] Reason: ABD PAIN EXAMS: CPT CODE: [id number] ABDOMEN LTD 80153 ULTRASOUND- GUIDED ASPIRATION AND DRAINAGE OF RIGHT UPPER QUADRANT, GALLBLADDER FOSSA. CPT code: 64799, 56603 INDICATION: Abdomen, Gallbladder Fossa LOCATION: [facility] - [...] for patient's safety was performed. Utilizing sterile t echnique and sonographic guidance, a 18 needle was utilized. 0.035 in guidewire was placed in position. Tract was further dilated using a 8 and 10 dilator followed by placement of a 10-Danish pigtailcatheter. Catheter was secured with 2-0 Prolene and connected to a drainage bag. Aspiration of approximately 10 mL of bloody purulent fluid. Specimen was sent to microbiology for analysis. Patient tolerated procedure well without a complication. No conscious sedation was required. DISCUSSION: Preliminary ultrasound Demonstrate presence of a fluid collection with internal debris and multiple smallair pocket compatible with abscess adjacent to the gallbladder fossa. IMPRESSION Successful ultrasound- guided aspiration and drainage catheter placement of abdominal fluid. Fluid was sent to microbiology for PAGE 1 Signed Report (CONTINUED) FAX: Lizzy Petersen MD [phone] [place]: St: ADM----- Name: SEYMOUR SNOW [facility] : 1950 Age/S: 69/M [address] Unit #: [id number] Loc: [address] [place] [address] Phys: Jake Grant MD Acct: [id number] Dis Date: Status: ADM IN PHONE #: [phone] Exam Date: 10/04/2019 1301 FAX #: [phone] Reason: ABD PAIN EXAMS: CPT CODE: [id number] ABDOMEN LTD 26246 (Continued) analysis. at 1542 Reported and signed by: Jake Grant M.D. CC: Lizzy Duke MD Technologist: Jaswinder Swanson RDMS Trnscrd Date/Time/By: 10/04/2019 (4382) : By: Katt PAGE 2 Signed Report FAX: Lizzy Petersen MD [phone] [place]: [facility]: ADM -------- Name: SEYMOUR SNOW [facility] : 1950 Age/S: 69/M [address] Unit #: [id number] Loc: [address] [place] [address] Phys: Jake Grant MD Acct: [id number] Dis Date: Status: ADM IN PHONE #: [phone] Exam Date: 10/04/2019 1301 FAX #: [phone] Reason: ABD PAIN EXAMS: CPT CODE: [id number] US ABDOMEN LTD 57590 (Continued) Orig Print D/T: S: 10/04/2019 (1545) PAGE 3 Signed Report- USG NDL PLACEMENT (Bxg/Asp)2019-10-04 15:42:00FAX: Juliana Weber [phone] [place]: St: ADM FAX: Lizzy Petersen MD [phone] -------- Name: SEYMOUR SNOW [facility] : 1950 Age/S: 69/M [address] Unit #: [id number] Loc: C.[address] [place] [address] Phys: Juliana Weber Acct: [id number] Dis Date: Status: ADM IN PHONE #: [phone] Exam Date: 10/04/2019 1300 FAX #: [phone] Reason: Abdomen, Gallbladder Fossa EXAMS: CPT CODE: [id number] USG NDL PLACEMENT (Bxg/Asp) 43563 ULTRASOUND-GUIDED ASPIRATION AND DRAINAGE OF RIGHT UPPER QUADRANT, GALLBLADDER FOSSA. CPT code: 27287, 48694 INDICATION: Abdomen, Gallbladder Fossa LOCATION: [facility] AGE: 69 years, Male COMPARISON: None INFORMED CONSENT: After thorough discussion of pro cedure, alternatives, risks and expected benefits, an informed consent was obtained. Discussion specifically included risk for infection, bleeding, pneumothorax, and bowel or liver injury. LABS: Pre-procedure review of labs reveals PT, PTT, INR and platelet count to be within acceptable range. TECHN IQUE: Timeout for patient's safety was performed. Utilizing sterile technique and sonographic guidance, a 18 needle was utilized. 0.035 in guidewire was placed in position. Tract was further dilatedusing a 8 and 10 dilator followed by placement of a 10-Danish pigtail catheter. Catheter was secured with 2-0 Prolene and connected to a drainage bag. Aspiration of approximately 10 mL of bloody purulent fluid. Specimen was sent to microbiology for analysis. Patient tolerated procedure well withouta complication. No conscious sedation was required. DISCUSSION: Preliminary ultrasound Demonstratepresence of a fluid collection with internal debris and multiple small air pocket compatible with ab scess adjacent to the gallbladder fossa. IMPRESSION Successful ultrasound-guided aspiration and drainage catheter PAGE 1 Signed Report (CONTINUED) FAX: Juliana Weber [phone] [place]: St: ADM FAX: Lizzy Petersen MD [phone] Name: SEYMOUR SNOW [facility] : 1950 Age/S: 69/M [address] Unit #: [id number] Loc: C.[address] [place] [address] Phys: Juliana Weber Acct: [id number] Dis Date: Status: ADM IN PHONE #: [phone] Exam Date: 10/04/2019 1300 FAX #: [phone] Reason: Abdomen, Gallbladder Fossa EXAMS: CPT CODE: [id number] USG NDL PLACEMENT (Bxg/Asp) 58623 (Continued) placement of abdominal fluid. Fluid was sent to microbiology for analysis. at 1542 Reported and signed by: Jake Grant M.D. CC: Juliana DE LA CRUZ; Lizzy Duke MD Technologist: Jaswinder Swanson RDNM Trnscrd Date/Time/By: 10/04/2019 (7742) : By: WesHPD PAGE 2 Signed Report FAX: Juliana Weber [phone] [place]: St: ADM FAX: Lizzy Petersen MD [phone] Name: SEYMOUR SNOW [facility] : 1950 Age/S: 69/M [address] Unit#: [id number] Loc: C.[address] [place] [address] Phys: Juliana Weber Acct: [id number] Dis Date:Status: ADM IN PHONE #: [phone] Exam Date: 10/04/2019 1300 FAX #: [phone] Reason: Abdomen, Gallbladder Fossa EXAMS: CPT CODE: [id number] USG NDL PLACEMENT (Bxg/Asp) 07575 (Continued) Orig Print D/T: S: 10/04/2019 (3797) PAGE 3 Signed [id number] 11:54:00* Test Item Value Reference Range Interpretation Comme nts GLUBED (test code = GLUBED) 150 MG/DL 74-106 H [id number] 06:30:00* Test Item Value Reference Range Interpretation Comme nts GLUBED (test code = GLUBED) 142 MG/DL 74-106 H [id number] 21:35:00* Test Item Value Reference Range Interpretation Comme nts POTASSIUM (test code = K) 3.8 mmol/L 3.4-5.0 N [id number] 20:42:00* Test Item Value Reference Range Interpretation Comme nts GLUBED (test code = GLUBED) 225 MG/DL 74-106 H [id number] 15:39:00* Test Item Value Reference Range Interpretation Comme nts GLUBED (test code = GLUBED) 198 MG/DL 74-106 H BASIC METABOLIC [id number] 15:05:00* Test Item Value Reference Range Interpretation Comme nts SODIUM (test code = NA) 135 mmol/L 137-145 L POTASSIUM (test code = K) 3.1 mmol/L 3.4-5.0 L CHLORIDE (test code = CL) 96 mmol/L 98-107 L CARBON DIOXIDE (test code = CO2) 34 mmol/L 22-30 H GLUCOSE (test code = GLU) 197 mg/dL 74-106 H BLOOD UREA NITROGEN (test code = BUN) 3 mg/dL 9-20 L GLOMERULAR FILTRATION RATE (test code = GFR) 174 >60 The estimated glomerular filtration rate is computed usingpatient race, age (>18), sex, and serum creatinine. If anyof the needed data elements are missing the Laboratory cannot compute an estimation of the glomerular filtration rate. CREATININE (test code = CREAT) 0.5 mg/dL 0.7-1.3 L CALCIUM (test code = CA) 7.4 mg/dL 8.4-10.2 L PROTHROMBIN [id number] 15:03:00* Test Item Value Reference Range Interpretation Comme [facility] PROTHROMBIN TIME PATIENT (test code = PTP) 15.8 SECONDS 9.2-12.1 H INTERNATIONAL NORMAL RATIO (test code = INR) 1.4 The INR is to be used only for monitoring ORAL ANTICOAGULANTTHERAPY. Indication INR Value1. Prophylaxis/treatment of: Venous Thrombosis, Pulmonary Embolism 2.0 - 3.02. Prevention of systemic embolism from: Tissue heart valves 2.0 - 3.0 Acute myocardial infarction (to present systemic embolism)* 2.0 - 3.0 Valvular heart disease 2.0 - 3.0 Atrial fibrillation 2.0 - 3.03. Mechanical prosthetic valves (high risk) 2.5 - 3.5 * If oral anticoagulant therapy is elected to preventrecurrent myocardial infarction, an INR of 2.5-3.5 isrecommended, consistent with Food and Drug Administrationrecommen dations. [id number] 11:58:00* Test Item Value Reference Range Interpretation Comme [facility] GLUBED (test code = GLUBED) 194 MG/DL 74-106 H [id number] 06:25:00* Test Item Value Reference Range Interpretation Comme nts GLUYI (test code = GLUBED) 133 MG/DL 74-106 H - CT ABD PELVIS [id number] 03:24:00FAX: Darrick Zapata [phone] [place]: St: DIS FAX: Elicia Paul NP [phone] --- Name: JAYLA SARAHSEYMOUR VELASQUEZ [facility] : 1950 Age/S: 69/M [address] Unit: [id number] Loc: C.[address] [place] [address] Phys: Elicia Paul NP Acct: [id number] Dis Date: 10/02/2019 Status: DIS IN PHONE #: [phone] Exam Date: 10/03/2019 0305 FAX #: [phone] Reason: s/p open mag with purulent drainage from woun EXAMS: CPT CODE: [id number] CT ABD PELVIS W/CONT [address] ABDOMEN/PELVIS WITH CONTRAST HISTORY: s/p open mag with purulent drainage from wound TECHNIQUE: Axial CT images were obtained through the abdomen and pelvis after intravenous contrast. Coronal and sagittal reformatted images were created from the data set. One or more of the following dose reduction techniques wereused: Automated exposure control, adjustment of the mA and/or kV according to patient size, and/or iterative reconstruction. COMPARISON: 09/28/2019 FINDINGS: Cholecystectomy clips are present. There is a developing organized air-fluid collection in the gallbladder fossa measuring 7.2 x 2.5 x 3.0 cm.The liver, spleen, pancreas, kidneys and adrenal glands [...] 1 Signed Report (CONTINUED) FAX: Darrick Zapata [phone] [place]: St: DIS FAX: Elicia Paul NP [phone] Name: SEYMOUR SNOW [facility] : 1950 Age/S: 69/M [address] Unit: [id number] Loc: [address] [address] Phys: Elicia Paul NP Acct: [id number] Dis Date: 10/02/2019 Status: DIS IN PHONE #: [phone] Exam Date: 10/03/2019 0305 FAX #: [phone] Reason:s/p open mag with purulent drainage from woun EXAMS: CPT CODE: [id number] CT ABD PELVIS W/CONT 741 77 (Continued) CC: Darrick Benson; Elicia Paul NP Technologist: Amanda Anna; LES YANG Trnilrd Dt/Tm: 10/03/2019 (032) [id number] Orig Print D/T: S: 10/03/2019 (0327 PAGE 2 SignedReport- CTA CHEST FOR [id number] 03:16:00FAX: Darrick Zapata [phone] [place]: St: DIS FAX: Elicia Paul NP [phone] ---- Name: SEYMOUR SNOW [facility] [place] : 1950 Age/S: 69/M [address] Unit: [id number] Loc: C.[address] [place] [address] Phys: Elicia Paul NP Acct: [id number] Dis Date: 10/02/2019 Status: DIS IN PHONE #: [phone] Exam Date: 10/03/2019 0305 FAX #: [phone] Reason: desaturation EXAMS: CPT CODE: [id number] [place] [address] R16 CTA CHEST WITH CONTRAST HISTORY: desaturation [...] effusion again noted. at 0316 Reported and signedby: Teofilo Veras MD PAGE 1 Signed Report (CONTINUED) FAX: Darrick Zapata [phone] [place]: St: DIS FAX: Elicia Paul NP [phone] Name: SEYMOUR SNOW [facility] [place] : 1950 Age/S: 69/M [address] Unit: [id number] Loc: [address] [place] [address] Phys: Post,Elicia Swanson [employer] TENDER Acct: [id number] Dis Date: 10/02/2019 Status: DIS IN PHONE #: [phone] Exam Date: 10/03/2019 0305 FAX #: [phone] Reason: desaturation EXAMS: CPT CODE: [id number] [place] [address] (Continued) CC: Darrick Benson; Elicia Paul [employer] W[employer] TENDER Technologist: Amanda Anna; LES YANG Trnscrd Dt/Tm: 10/03/2019 (315) [email or web address] Orig Print D/T: S: 10/03/2019 (9 PAGE 2 Signed ReportLACTIC [id number] 21:35:00* Test Item Value Reference Range Interpretation Comme nts LACTIC ACID (test code = LACT) 1.7 mmol/L 0.7-2.0 N CBC W/AUTO [id number] 21:21:00* Test Item Value Reference Range Interpretation Comme nts WHITE BLOOD CELL (test code = WBC) 8.7 x10 3/uL 5.0-12.0 N RED BLOOD CELL (test code = RBC) 3.15 x10 6/uL 4.70-6.10 L HEMOGLOBIN (test code = HGB) 9.6 g/dL 14.0-18.0 L HEMATOCRIT (test code = HCT) 28.9 % 37.0-49.0 L MEAN CELL VOLUME (test code = MCV) 92 fL 80-94 N MEAN CELL HGB (test code = MCH) 30.5 pg 27-31 N MEAN CELL HGB CONCENTRATION (test code = MCHC) 33.2 g/dL 33-37 N RED CELL DISTRIBUTION WIDTH (test code = RDW) 13.1 % 11.5-15.5 N PLATELET COUNT (test code = PLT) 212 x10 3/uL 130-400 N MEAN PLATELET VOLUME (test c ode = MPV) 9.4 fL 9.4-16.4 N NEUTROPHIL % (test code = NT%) 71.2 % 43-65 H IMMATURE GRANULOCYTE % (test code = IG%) 0.3 % 0.0-2.0 N LYMPHOCYTE % (test code = LY%) 18.3 % 20.5-45.5 L MONOCYTE % (test code = MO%) 6.5 % 5.5-11.7 N EOSINOPHIL % (test code = EO%) 2.9 % 0.9-2.9 N BASOPHIL % (test code = BA%) 0.8 % 0.2-1.0 N NUCLEATED RBC % (test code = NRBC%) 0.0 % 0-1.0 N NEUTROPHIL # (test code = NT#) 6.20 x10 3/uL 2.2-4.8 H IMMATURE GRANULOCYTE # (test code = IG#) 0.03 x10 3/uL 0-0.03 N LYMPHOCYTE # (test code = LY#) 1.59 x10 3/uL 1.3-2.9 N MONOCYTE # (test code = MO#) 0.57 x10 3/uL 0.3-0.8 N EOSINOPHIL # (test code = EO#) 0.25 x10 3/uL 0.0-0.2 H BASOPHIL # (test code = BA#) 0.07 x10 3/uL 0.0-0.1 N [id number] 20:53:00* Test Item Value Reference Range Interpretation Comme nts GLUBED (test code = GLUBED) 139 MG/DL 74-106 H [id number] 16:58:00* Test Item Value Reference Range Interpretation Comme nts GLUBED (test code = GLUBED) 190 MG/DL 74-106 H - XR CHEST 1 [id number] 16:19:00FAX: Soto Thompson [phone] [place]: [facility]: [facility] FAX: Darrick Zapata [facility] [phone] Name: SEYMOUR SNOW [facility] : 1950 Age/S: 69/M [address] Unit #: [id number] Loc: CBertrand5 [place] [address] Phys: Soto Hudson B[employer]ENDER Acct: [id number] Dis Date: Status: ADM IN PHONE #: [phone] Exam Date: 10/02/2019 1557 FAX #: [phone] Reason: shortness of breath, hypoxia EXAMS: CPT CODE: [id number] XR CHEST 1 V 70016 Site ID: [id number] HISTORY: Shortness of breath, hypoxia COMPARISON: Chest x-ray and CT chest September 28, 2019 FINDINGS: Improved pulmonary aeration, with residual streaky bibasilar atelectasis. No appreciable pleural effusion. The heart and pulmonary vascul ature is normal. Osseous structures are unremarkable. IMPRESSION: Improved pulmonary aeration, with residual streaky bibasilar atelectasis. [id number] Reported and signed by: Kaden Coyle MD CC: Soto Hudson B[employer] WAR[employer] TENDER; Darrick David echnologist: Bibi Santosilmikhail Date/Time/By: 10/02/2019 (1619) : By: [email or web address] PAGE 1 Signed Report FAX: Soto Thompson [phone] [place]: [facility]: [facility] FAX: Darrick Zapata [phone] Name: SEYMOUR SNOW [facility] : 1950 Age/S: 69/M [address] Unit #: [id number] Loc: [place] [address] Phys: Soto Hudson B[employer] W[employer] TENDER Acct: [id number] Dis Date: Status: ADM IN PHONE #: [phone] Exam Date: 10/02/2019 1557 FAX #: [phone] Reason: shortness of breath, h ypoxia EXAMS: CPT CODE: [id number] XR CHEST 1 V 21619 (Continued) Orig Print D/T: S: 10/02/2019 (1622) PAGE 2 Signed [id number] 11:27:00* Test Item Value Reference Range Interpretation Comme nts GLUBED (test code = GLUBED) 154 MG/DL 74-106 H [id number] 05:55:00* Test Item Value Reference Range Interpretation Comme nts GLUBED (test code = GLUBED) 129 MG/DL 74-106 H URINALYSIS [id number] 21:48:00* Test Item Value Reference Range Interpretation Comme nts UA COLOR (test code = COLU) Tasneem Yellow A UA APPEARANCE (test code = APPU) Clear Clear UA GLUCOSE DIPSTICK (test code = DGLUU) 50 (1+) Negative A UA BILIRUBIN DIPSTICK (test code = BILU) Negative Negative UA KETONE DIPSTICK (test cod e = KETU) Negative mg/dL Negative UA SPECIFIC GRAVITY (test code = SGU) 1.020 <1.030 UA BLOOD DIPSTICK (test code = BUTCH) Negative Negative UA PH DIPSTICK (test code = ECHO) 6.0 5.0-8.0 UA PROTEIN DIPSTICK (test code = PROU) NEGATIVE mg/dL Negative UA UROBILINOGEN DIPSTICK (test code = URO) 4.0 mg/dL Negative A UA NITRITE DIPSTICK (test code = SHANDA) Negative Negative UA LEUKOCYTE ESTERASE DIPSTICK (test code = LEUU) NEGATIVE Negative UA WBC (test code = WBCU) 0-3 /HPF <4-5 UA RBC (test code = RBCU) 0-3 /HPF <4-5 UA BACTERIA (test code = BACU) NONE SEEN /HPF None-Rare UA SQUAMOUS CELLS (test code = SQU) 0-5 (RARE) /HPF 0-5 (RARE) UA MUCUS (test code = MUCU) Rare /LPF <Rare COMPREHENSIVE METABOLIC [id number] 21:40:00* Test Item Value Reference Range Interpretation Comme nts SODIUM (test code = NA) 131 mmol/L 137-145 L POTASSIUM (test code = K) 3.4 mmol/L 3.4-5.0 N CHLORIDE (test code = CL) 97 mmol/L 98-107 L CARBON DIOXIDE (test code = CO2) 29 mmol/L 22-30 N GLUCOSE (test code = GLU) 205 mg/dL 74-106 H BLOOD UREA NITROGEN (test code = BUN) 6 mg/dL 9-20 L GLOMERULAR FILTRATION RATE (test code = GFR) 174 >60 The estim ated glomerular filtration rate is computed usingpatient race, age (>18), sex, and serum creatinine. If anyof the needed data elements are missing the Laboratory cannot compute an estimation of the glomerular filtration rate. CREATININE (test code = CREAT) 0.5 mg/dL 0.7-1.3 L TOTAL PROTEIN (test code = PROT) 5.7 g/dL 6.3-8.2 L ALBUMIN (test code = ALB) 2.7 g/dL 3.5-5.0 L CALCIUM (test code = CA) 7.1 mg/dL 8.4-10.2 L BILIRUBIN TOTAL (test code = BILT) 1.1 mg/dL 0.2-1.3 N BILIRUBIN CONJUGATED (test code = BILCON) 0 mg/dL 0-0.3 N ~~~~~~~~~~~ ~~~~~~~~~~ ~~~~~~~~~~~~~~~~~~~~~ ~~~~~~~~~~~~~~~~~~CON JUGATED BILIRUBIN IS THE REPLACEMENT ASSAY FOR DIRECTBILIRUBIN.~~~~~ ~~~~~~~~~~~~~~~~~~~~~ ~~~~~~~~~~~~~~~~~~~~~ ~~~~~~~~~~~~~ BILIRUBIN UNCONJUGATED (test code = BILUNC) 0.3 mg/dL 0-1.1 N SGOT/AST (test code = AST) 35 U/L 15-46 N SGPT/ALT (test code = ALT) 38 U/L 13-69 N ALKALINE PHOSPHATASE (test code = ALKP) 193 U/L 38-126 H PROTHROMBIN [id number] 21:34:00* Test Item Value Reference Range Interpretation Comme [facility] PROTHROMBIN TIME PATIENT (test code = PTP) 14.6 SECONDS 9.2-12.1 H INTERNATIONAL NORMAL RATIO (test code = INR) 1.3 The INR is to be used only for monitoring ORAL ANTICOAGULANTTHERAPY. Indication INR Value1. Prophylaxis/treatment of: Venous Thrombosis, Pulmonary Embolism 2.0 - 3.02. Prevention of systemic embolism from: Tissue heart valves 2.0 - 3.0 Acute myocardial infarction (to present systemic embolism)* 2.0 - 3.0 Valvular heart disease 2.0 - 3.0 Atrial fibrillation 2.0 - 3.03. Mechanical prosthetic valves (high risk) 2.5 - 3.5 * If oral anticoagulant therapy is elected to preventrecurrent myocardial infarction, an INR of 2.5-3.5 isrecommended, consistent with Food and Drug Administrationrecommen dations. THROMBOPLASTIN TIME [id number] 21:34:00* Test Item Value Reference Range Interpretation Comme [facility] THROMBOPLASTIN TIME PARTIAL (test code = PTT) 32.0 SECONDS 23.4-37.0 N Therapeutic Rang e for Heparin EFFECTIVE 11/25/12 Heparin IU/mL aPTT Seconds0.3 64.30.7 88.8 CBC W/AUTO [id number] 21:27:00* Test Item Value Reference Range Interpretation Comme [facility] WHITE BLOOD CELL (test code = WBC) 9.6 x10 3/uL 5.0-12.0 N RED BLOOD CELL (test code = RBC) 3.12 x10 6/uL 4.70-6.10 L HEMOGLOBIN (test code = HGB) 9.7 g/dL 14.0-18.0 L HEMATOCRIT (test code = HCT) 28.4 % 37.0-49.0 L MEAN CELL VOLUME (test code = MCV) 91 fL 80-94 N MEAN CELL HGB (test code = MCH) 31.1 pg 27-31 H MEAN CELL HGB CONCENTRATION (test code = MCHC) 34.2 g/dL 33-37 N RED CELL DISTRIBUTION WIDTH (test code = RDW) 12.9 % 11.5-15.5 N PLATELET COUNT (test code = PLT) 209 x10 3/uL 130-400 N MEAN PLATELET VOLUME (test c ode = MPV) 9.4 fL 9.4-16.4 N NEUTROPHIL % (test code = NT%) 71.7 % 43-65 H IMMATURE GRANULOCYTE % (test code = IG%) 0.5 % 0.0-2.0 N LYMPHOCYTE % (test code = LY%) 18.0 % 20.5-45.5 L MONOCYTE % (test code = MO%) 6.9 % 5.5-11.7 N EOSINOPHIL % (test code = EO%) 2.4 % 0.9-2.9 N BASOPHIL % (test code = BA%) 0.5 % 0.2-1.0 N NUCLEATED RBC % (test code = NRBC%) 0.0 % 0-1.0 N NEUTROPHIL # (test code = NT#) 6.84 x10 3/uL 2.2-4.8 H IMMATURE GRANULOCYTE # (test code = IG#) 0.05 x10 3/uL 0-0.03 H LYMPHOCYTE # (test code = LY#) 1.72 x10 3/uL 1.3-2.9 N MONOCYTE # (test code = MO#) 0.66 x10 3/uL 0.3-0.8 N EOSINOPHIL # (test code = EO#) 0.23 x10 3/uL 0.0-0.2 H BASOPHIL # (test code = BA#) 0.05 x10 3/uL 0.0-0.1 N [id number] 21:11:00* Test Item Value Reference Range Interpretation Comme nts GLUBED (test code = GLUBED) 236 MG/DL 74-106 H [id number] 16:21:00* Test Item Value Reference Range Interpretation Comme nts GLUBED (test code = GLUBED) 155 MG/DL 74-106 H [id number] 11:42:00* Test Item Value Reference Range Interpretation Comme nts GLUBED (test code = GLUBED) 198 MG/DL 74-106 H [id number] 07:02:00* Test Item Value Reference Range Interpretation Comme nts GLUBED (test code = GLUBED) 144 MG/DL 74-106 H [id number] 20:56:00* Test Item Value Reference Range Interpretation Comme nts GLUBED (test code = GLUBED) 178 MG/DL 74-106 H [id number] 16:21:00* Test Item Value Reference Range Interpretation Comme nts GLUBED (test code = GLUBED) 261 MG/DL 74-106 H [id number] 12:57:00* Test Item Value Reference Range Interpretation Comme nts GLUBED (test code = GLUBED) 176 MG/DL 74-106 H [id number] 06:51:00* Test Item Value Reference Range Interpretation Comme nts GLUBED (test code = GLUBED) 238 MG/DL 74-106 H COMPREHENSIVE METABOLIC [id number] 06:20:00* Test Item Value Reference Range Interpretation Comme nts SODIUM (test code = NA) 135 mmol/L 137-145 L POTASSIUM (test code = K) 3.7 mmol/L 3.4-5.0 N CHLORIDE (test code = CL) 99 mmol/L 98-107 N CARBON DIOXIDE (test code = CO2) 27 mmol/L 22-30 N GLUCOSE (test code = GLU) 158 mg/dL 74-106 H BLOOD UREA NITROGEN (test code = BUN) 5 mg/dL 9-20 L GLOMERULAR FILTRATION RATE (test code = GFR) 174 >60 The estim ated glomerular filtration rate is computed usingpatient race, age (>18), sex, and serum creatinine. If anyof the needed data elements are missing the Laboratory cannot compute an estimation of the glomerular filtration rate. CREATININE (test code = CREAT) 0.5 mg/dL 0.7-1.3 L TOTAL PROTEIN (test code = PROT) 6.1 g/dL 6.3-8.2 L ALBUMIN (test code = ALB) 2.8 g/dL 3.5-5.0 L CALCIUM (test code = CA) 7.7 mg/dL 8.4-10.2 L BILIRUBIN TOTAL (test code = BILT) 2.0 mg/dL 0.2-1.3 H BILIRUBIN CONJUGATED (test code = BILCON) 0 mg/dL 0-0.3 N ~~~~~~~~~~~ ~~~~~~~~~~ ~~~~~~~~~~~~~~~~~~~~~ ~~~~~~~~~~~~~~~~~~CON JUGATED BILIRUBIN IS THE REPLACEMENT ASSAY FOR DIRECTBILIRUBIN.~~~~~ ~~~~~~~~~~~~~~~~~~~~~ ~~~~~~~~~~~~~~~~~~~~~ ~~~~~~~~~~~~~ BILIRUBIN UNCONJUGATED (test code = BILUNC) 1.0 mg/dL 0-1.1 N SGOT/AST (test code = AST) 45 U/L 15-46 N SGPT/ALT (test code = ALT) 33 U/L 13-69 N ALKALINE PHOSPHATASE (test code = ALKP) 202 U/L 38-126 H CBC W/AUTO [id number] 06:07:00* Test Item Value Reference Range Interpretation Comme nts WHITE BLOOD CELL (test code = WBC) 10.3 x10 3/uL 5.0-12.0 N RED BLOOD CELL (test code = RBC) 3.57 x10 6/uL 4.70-6.10 L HEMOGLOBIN (test code = HGB) 10.9 g/dL 14.0-18.0 L HEMATOCRIT (test code = HCT) 32.4 % 37.0-49.0 L MEAN CELL VOLUME (test code = MCV) 91 fL 80-94 N MEAN CELL HGB (test code = MCH) 30.5 pg 27-31 N MEAN CELL HGB CONCENTRATION (test code = MCHC) 33.6 g/dL 33-37 N RED CELL DISTRIBUTION WIDTH (test code = RDW) 12.6 % 11.5-15.5 N PLATELET COUNT (test code = PLT) 227 x10 3/uL 130-400 N MEAN PLATELET VOLUME (test c ode = MPV) 10.0 fL 9.4-16.4 N NEUTROPHIL % (test code = NT%) 81.3 % 43-65 H IMMATURE GRANULOCYTE % (test code = IG%) 0.6 % 0.0-2.0 N LYMPHOCYTE % (test code = LY%) 9.8 % 20.5-45.5 L MONOCYTE % (test code = MO%) 7.0 % 5.5-11.7 N EOSINOPHIL % (test code = EO%) 0.8 % 0.9-2.9 L BASOPHIL % (test code = BA%) 0.5 % 0.2-1.0 N NUCLEATED RBC % (test code = NRBC%) 0.0 % 0-1.0 N NEUTROPHIL # (test code = NT#) 8.42 x10 3/uL 2.2-4.8 H IMMATURE GRANULOCYTE # (test code = IG#) 0.06 x10 3/uL 0-0.03 H LYMPHOCYTE # (test code = LY#) 1.01 x10 3/uL 1.3-2.9 L MONOCYTE # (test code = MO#) 0.72 x10 3/uL 0.3-0.8 N EOSINOPHIL # (test code = EO#) 0.08 x10 3/uL 0.0-0.2 N BASOPHIL # (test code = BA#) 0.05 x10 3/uL 0.0-0.1 N [id number] 22:44:00* Test Item Value Reference Range Interpretation Comme nts GLUBED (test code = GLUBED) 158 MG/DL 74-106 H [id number] 15:59:00* Test Item Value Reference Range Interpretation Comme nts GLUBED (test code = GLUBED) 157 MG/DL 74-106 H [id number] 12:09:00* Test Item Value Reference Range Interpretation Comme nts GLUBED (test code = GLUBED) 212 MG/DL 74-106 H [id number] 06:31:00* Test Item Value Reference Range Interpretation Comme nts GLUBED (test code = GLUBED) 148 MG/DL 74-106 H CBC W/AUTO [id number] 05:51:00* Test Item Value Reference Range Interpretation Comme nts WHITE BLOOD CELL (test code = WBC) 12.3 x10 3/uL 5.0-12.0 H RED BLOOD CELL (test code = RBC) 3.27 x10 6/uL 4.70-6.10 L HEMOGLOBIN (test code = HGB) 10.1 g/dL 14.0-18.0 L HEMATOCRIT (test code = HCT) 30.5 % 37.0-49.0 L MEAN CELL VOLUME (test code = MCV) 93 fL 80-94 N MEAN CELL HGB (test code = MCH) 30.9 pg 27-31 N MEAN CELL HGB CONCENTRATION (test code = MCHC) 33.1 g/dL 33-37 N RED CELL DISTRIBUTION WIDTH (test code = RDW) 12.8 % 11.5-15.5 N PLATELET COUNT (test code = PLT) 213 x10 3/uL 130-400 N MEAN PLATELET VOLUME (test c ode = MPV) 10.0 fL 9.4-16.4 N NEUTROPHIL % (test code = NT%) 80.8 % 43-65 H IMMATURE GRANULOCYTE % (test code = IG%) 0.6 % 0.0-2.0 N LYMPHOCYTE % (test code = LY%) 11.0 % 20.5-45.5 L MONOCYTE % (test code = MO%) 5.5 % 5.5-11.7 N EOSINOPHIL % (test code = EO%) 1.8 % 0.9-2.9 N BASOPHIL % (test code = BA%) 0.3 % 0.2-1.0 N NUCLEATED RBC % (test code = NRBC%) 0.0 % 0-1.0 N NEUTROPHIL # (test code = NT#) 9.95 x10 3/uL 2.2-4.8 H IMMATURE GRANULOCYTE # (test code = IG#) 0.07 x10 3/uL 0-0.03 H LYMPHOCYTE # (test code = LY#) 1.36 x10 3/uL 1.3-2.9 N MONOCYTE # (test code = MO#) 0.68 x10 3/uL 0.3-0.8 N EOSINOPHIL # (test code = EO#) 0.22 x10 3/uL 0.0-0.2 H BASOPHIL # (test code = BA#) 0.04 x10 3/uL 0.0-0.1 N COMPREHENSIVE METABOLIC [id number] 05:50:00* Test Item Value Reference Range Interpretation Comme nts SODIUM (test code = NA) 134 mmol/L 137-145 L POTASSIUM (test code = K) 3.2 mmol/L 3.4-5.0 L CHLORIDE (test code = CL) 101 mmol/L 98-107 N CARBON DIOXIDE (test code = CO2) 26 mmol/L 22-30 N GLUCOSE (test code = GLU) 140 mg/dL 74-106 H BLOOD UREA NITROGEN (test code = BUN) 7 mg/dL 9-20 L GLOMERULAR FILTRATION RATE (test code = GFR) 174 >60 The estim ated glomerular filtration rate is computed usingpatient race, age (>18), sex, and serum creatinine. If anyof the needed data elements are missing the Laboratory cannot compute an estimation of the glomerular filtration rate. CREATININE (test code = CREAT) 0.5 mg/dL 0.7-1.3 L TOTAL PROTEIN (test code = PROT) 5.3 g/dL 6.3-8.2 L ALBUMIN (test code = ALB) 2.5 g/dL 3.5-5.0 L CALCIUM (test code = CA) 7.3 mg/dL 8.4-10.2 L BILIRUBIN TOTAL (test code = BILT) 1.8 mg/dL 0.2-1.3 H BILIRUBIN CONJUGATED (test code = BILCON) 0 mg/dL 0-0.3 N ~~~~~~~~~~~ ~~~~~~~~~~ ~~~~~~~~~~~~~~~~~~~~~ ~~~~~~~~~~~~~~~~~~CON JUGATED BILIRUBIN IS THE REPLACEMENT ASSAY FOR DIRECTBILIRUBIN.~~~~~ ~~~~~~~~~~~~~~~~~~~~~ ~~~~~~~~~~~~~~~~~~~~~ ~~~~~~~~~~~~~ BILIRUBIN UNCONJUGATED (test code = BILUNC) 1.0 mg/dL 0-1.1 N SGOT/AST (test code = AST) 37 U/L 15-46 N SGPT/ALT (test code = ALT) 48 U/L 13-69 N ALKALINE PHOSPHATASE (test code = ALKP) 164 U/L 38-126 H [id number] 20:27:00* Test Item Value Reference Range Interpretation Comme nts GLUBED (test code = GLUBED) 185 MG/DL 74-106 H [id number] 16:52:00 RUN DATE: 09/28/19 [place] [facility] PAGE 1 RUN TIME: 1651 Specimen Inquiry RUN USER: INTERFACE JONO HAYES: SEYMOUR SNOW LOC: SIDDHARTHA U #: [id number] AGE/SX: 69/M ROOM: [facility] RE09/22/19[facility] DR: Lizzy Duke MD : 46 BED: A DIS: STATUS: ADM IN TLOC: SPEC #: [id number] RECD: 09/27/19 STATUS: NOEL RE #: [id number] SALLY: 09/25/191826 [facility] DR: Judith Mccoy MD ENTERED: 09/27/19 SP TYPE: GALLBLADD OT DR: No Primary or Family Physician Pawan Restrepo MD, Ijeoma Erica MD Tapia, Nicole M MDORDERED: PATHGM3, # OF BLOCKS/2, # OF SLIDES/2 TISSUES: A. GALLBLADDER, NOS CLINICAL HISTORY ACUTE CHOLECYSTITIS, CIRRHOSIS. FINAL MICROSCOPIC DIAGNOSIS GALLBLADDER, CHOLECYSTECTOMY: GANGRENOUS CHOLECYSTITIS WITH MARKED ACUTE AND CHRONIC INFLAMMATION, ULCERATION CHOLELITHIASISCPT: 87944 GROSS DESCRIPTION In formalin, labeled with the patient's name, medical record number, and "gallbladder" is a fragmented gallbladder measuring 8.5 x 5.0 [...] cystic duct resection margin is not identified. Thermodynamic Physicist sections are submitted in cassettes A1-A2. OSMAN/MERON/luisa Signed SIGNATURE ON FILE Lynda Truong 09/28/19 1652 END OF REPORT [id number] 16:28:00* Test Item Value Reference Range Interpretation Comme nts GLUBED (test code = GLUBED) 190 MG/DL 74-106 H PROCALCITONIN (PCT)2019-09-28 12:58:00* Test Item Value Reference Range Interpretation Comme [facility] PROCALCITONIN (PCT) (test code = PROCAL) 1.51 NG/ML Procalcitonin (PCT) Normal Value: <0.05 NG/ML <0.5 NG/ML - low risk of severe sepsis and/or septic shock>2.0 NG/ML - high risk of severe sepsis and/or septic shock PCT concentrations between 0.5 and 2.0 NG/ML should beinterpreted taking into account the patient's history.It is recommended to retest PCT within 6-24 hours if anyconcentrations between 0.5-2.0 NG/ML are obtained. [id number] 12:26:00* Test Item Value Reference Range Interpretation Comme nts GLUBED (test code = GLUBED) 161 MG/DL 74-106 H - XR CHEST 1 [id number] 11:42:00FAX: Soto Thompson [phone] [place]: St: ADM FAX: Lizzy Petersen MD [phone] ---- Name: SEYMOUR SNOW [facility] : 1950 Age/S: 69/M [address] Unit #: [id number] Loc: [address] [place] [address] Phys: Soto Hudson BALL WARPER TENDER Acct: [id number] Dis Date: Status: ADM IN PHONE #:[phone] Exam Date: 09/28/2019 1137 FAX #: [phone] Reason: FEVER, LEUKOCYTOSIS EXAMS: CPT CODE: [id number] XR CHEST 1 V 73651 HISTORY: Fever and leukocytosis Location: C3 COMPARISON:10/26/2018FINDINGS: There is cardiomegaly with vascular prominence. Patchy perihilar and basilar opacities are noted increased from prior study. No pneumothorax. No other changes. IMPRESSION: 1. Patchy perihilar and basilar opacities compatible with areas of atelectasis and patchy bilateral consolidation. at 1142 Reported and signed by: Adolfo Bone MD CC: Soto Hudson BALL WARPER TENDER; Lizzy Duke MD Technologist: Marielena Brown Trnscrd Date/Time/By: 09/28/2019 (7176) : By: [email or web address] PAGE 1 Signed Report FAX: Soto Thompson [phone] [place]: St: ADM FAX: Lizzy Petersen MD [phone] Name: SEYMOUR SNOW [facility] : 1950 Age/S: 69/M [address] Unit #: [id number] Loc: C.[address] [place] [address] Phys: Soto Hudson NP Acct: [id number] Dis Date: Status: ADM IN PHONE #: [phone] Exam Date: 09/28/2019 1137 FAX #: [phone] Reason: FEVER, LEUKOCYTOSIS EXAMS: CPT CODE: [id number] XR CHEST 1 V 92459 (Continued) Orig Print D/T: S: 09/28/2019 (4636) PAGE 2 Signed Report- CTA CHEST FOR [id number] 10:03:00FAX: Lizzy Petersen MD [phone] [place]: St: ADM FAX: Elicia Paul NP [phone] --------- Name: SEYMOUR SNOW [facility] : 1950 Age/S: 69/M [address] Unit: [id number] Loc: [address] [place] [address] Phys: Post,Elicia Swanson BALL WARPER TENDER Acct: [id number] Dis Date: Status: ADM IN PHONE #: [phone] Exam Date: 09/28/2019 09 FAX #: [phone] Reason: requiring supplemental oxygen, r/o PE EXAMS: CPT CODE: [id number] [place] [address] HISTORY: Surgery and pain Location: C3 COMPARISON: [...] of iterative reconstruction technique. FINDINGS: CTA chest: Pulmonaryarteries are well opacified with no filling defects suggest pulmonary embolus. Small right pleural effusion is noted. Bibasilar consolidation is demonstrated. No pneumothorax. Scattered small mediastinal lymph nodes are present without discrete mediastinal mass. CT abdomen and pelvis: Postoperativechanges of recent cholecystectomy are demonstrated with postoperative [...] varices are noted. No evidence of bowel obs truction. Vascular calcifications are PAGE 1 Signed Report (CONTINUED) FAX: Lizzy Petersen MD [phone] [place]: [facility]: ADM FAX: HumbertoElicia Swanson NP [phone] Name: SEYMOUR SNOW [facility] : 1950 Age/S: 69/M [address] Unit: [id number] Loc: C.[address] [place] [address] Phys: Elicia Paul Adrian Acct: [id number] Dis Date: Status: ADM IN PHONE #: [phone] Exam Date: 09/28/2019939 FAX #: [phone] Reason: requiring supplemental oxygen, r/o PE EXAMS: CPT CODE: [id number] [place] [address] (Continued) present. No intrapelvic fluid collection. IMPRESSION: 1. No evidence of pulmonary embolus. 2. Small right pleural effusion with bibasilar consolidation. 3. Postoperative changes involving the gallbladder fossa with soft tissue stranding as well as several small foci of gas. No discrete defined fluid collection demonstrated suggest abscess. A few additional small foci offree air demonstrated within the abdomen likely postoperative in nature. 4. Gas in the soft tissue thickening involving the right anterior and lateral abdominal wall likely postoperative without discrete collection. 5. No evidence of bowel obstruction at 1003 Reported and signed by: Adolfo Bone MD CC: Lizzy Duke MD; Elicia Paul BALL WARPER TENDER Technologist: CASSY BYERS, RT(R,CT); MOON MEREDITH Trnscrd Dt/Tm: 09/28/2019 (1003) [email or web address] Orig Print D/T: S: 09/28/2019 (1006 PAGE 2 Signed Report- CT ABD PELVIS [id number] 10:03:00 FAX: Lizzy Petersen MD [phone] [place]: [facility] St: ADM FAX: HumbertoElicia Sky HANSEN [phone] --------- Name: SEYMOUR SNOW [facility] : 1950 Age/S: 69/M [address] Unit: [id number] Loc: C.[address] [place] [address] Phys: Elicia Paul Sky HANSEN Acct: [id number] Dis Date: Status: ADM IN PHONE #: [phone] Exam Date: 09/28/2019 09 FAX #: [phone] Reason: s/p lap mag, increasing WBC. IV and PO contra EXAMS: CPT CODE: [id number] CT ABD PELVIS W/CONT 16988 HISTORY: Surgery and pain Location: C3 COMPARISON: [...] iterative reconstruction technique. FINDINGS: CTA chest: Pulmonary arteries are well opacified with no filling defects suggest pulmonary embolus. Small right pleural effusion is noted. Bibasilar consolidation is demonstrated. No pneumothorax. Scattered small mediastinal lymph nodes are present without discrete mediastinal mass. CT abdomen and pelvis:Postoperative changes of recent cholecystectomy are demonstrated with postoperative changes involving the abdominal wall with soft tissue gas noted. Right upper quadrant drainage catheter is present with drain noted in the gallbladder fossa. The hepatic flexure of the colon is in close proximity tothe gallbladder fossa with mild secondary thickening. Several small foci of gas are noted in the gal lbladder fossa without discrete fluid collection. There is a simple appearing cyst involving the right hepatic lobe similar to prior preoperative MRI. The spleen, pancreas, adrenals, and kidneys showno significant abnormalities. Spleen is grossly unremarkable. 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 No evidence of bowel obstruction. Vascular calcifications are PAGE 1 Signed Report (CONTINUED) FAX: Lizzy Petersen MD [phone] [place]: St: ADM FAX: Elicia Paul NP [phone] Name: SEYMOUR SNOW [facility] : 1950 Age/S: 69/M [address] Unit: [id number] Loc: [address] [place] [address] Phys: Elicia Paul NP Acct: [id number] Dis Date: Status: ADM IN PHONE #: [phone] Exam Date: 2019 0940 FAX #: [phone] Reason: s/p lap mag, increasing WBC. IV and PO contra EXAMS: CPT CODE: [id number] CT ABD PELVIS W/CONT 22222 (Continued) present. No intrapelvic fluid collection. IMPRESSION: 1. No evidence of pulmonary embolus. 2. Small right pleural effusion with bibasilar consolidation. 3. Postoperative changes involving the gallbladder fossa with soft tissue stranding as well asseveral small foci of gas. No discrete defined fluid collection demonstrated suggest abscess. A fewadditional small foci of free air demonstrated within the abdomen likely postoperative in nature. 4. Gas in the soft tissue thickening involving the right anterior and lateral abdominal wall likely postoperative without discrete collection. 5. No evidence of bowel obstruction at 1003 Reported and signed by: Adolfo Bone MD CC: Lizzy Duke MD; Elicia Paul NP Technologist: CASSY BYERS, RT(R,CT); MOON MEREDITH Trnscrd Dt/Tm: 09/27 (1003) [email or web address] Orig Print D/T: S: 09/28/2019 (1006 PAGE 2 Signed Report [id number] 06:19:00* Test Item Value Reference Range Interpretation Comme nts GLUBED (test code = GLUBED) 179 MG/DL 74-106 H COMPREHENSIVE METABOLIC [id number] 05:31:00* Test Item Value Reference Range Interpretation Comme nts SODIUM (test code = NA) 134 mmol/L 137-145 L POTASSIUM (test code = K) 3.8 mmol/L 3.4-5.0 N CHLORIDE (test code = CL) 101 mmol/L 98-107 N CARBON DIOXIDE (test code = CO2) 26 mmol/L 22-30 N GLUCOSE (test code = GLU) 155 mg/dL 74-106 H BLOOD UREA NITROGEN (test code = BUN) 12 mg/dL 9-20 N GLOMERULAR FILTRATION RATE (test code = GFR) 141 >60 The estim ated glomerular filtration rate is computed usingpatient race, age (>18), sex, and serum creatinine. If anyof the needed data elements are missing the Laboratory cannot compute an estimation of the glomerular filtration rate. CREATININE (test code = CREAT) 0.6 mg/dL 0.7-1.3 L TOTAL PROTEIN (test code = PROT) 5.9 g/dL 6.3-8.2 L ALBUMIN (test code = ALB) 2.8 g/dL 3.5-5.0 L CALCIUM (test code = CA) 7.4 mg/dL 8.4-10.2 L BILIRUBIN TOTAL (test code = BILT) 2.4 mg/dL 0.2-1.3 H BILIRUBIN CONJUGATED (test code = BILCON) 0 mg/dL 0-0.3 N ~~~~~~~~~~~ ~~~~~~~~~~ ~~~~~~~~~~~~~~~~~~~~~ ~~~~~~~~~~~~~~~~~~CON JUGATED BILIRUBIN IS THE REPLACEMENT ASSAY FOR DIRECTBILIRUBIN.~~~~~ ~~~~~~~~~~~~~~~~~~~~~ ~~~~~~~~~~~~~~~~~~~~~ ~~~~~~~~~~~~~ BILIRUBIN UNCONJUGATED (test code = BILUNC) 1.2 mg/dL 0-1.1 H SGOT/AST (test code = AST) 43 U/L 15-46 N SGPT/ALT (test code = ALT) 45 U/L 13-69 N ALKALINE PHOSPHATASE (test code = ALKP) 172 U/L 38-126 H CBC W/AUTO [id number] 05:11:00* Test Item Value Reference Range Interpretation Comme nts WHITE BLOOD CELL (test code = WBC) 20.6 x10 3/uL 5.0-12.0 H RED BLOOD CELL (test code = RBC) 3.47 x10 6/uL 4.70-6.10 L HEMOGLOBIN (test code = HGB) 10.9 g/dL 14.0-18.0 L HEMATOCRIT (test code = HCT) 32.0 % 37.0-49.0 L MEAN CELL VOLUME (test code = MCV) 92 fL 80-94 N MEAN CELL HGB (test code = MCH) 31.4 pg 27-31 H MEAN CELL HGB CONCENTRATION (test code = MCHC) 34.1 g/dL 33-37 N RED CELL DISTRIBUTION WIDTH (test code = RDW) 13.1 % 11.5-15.5 N PLATELET COUNT (test code = PLT) 227 x10 3/uL 130-400 N MEAN PLATELET VOLUME (test code = MPV) 9.6 fL 9.4-16.4 N NEUTROPHIL % (test code = NT%) 85.1 % 43-65 H IMMATURE GRANULOCYTE % (test code = IG%) 1.2 % 0.0-2.0 N LYMPHOCYTE % (test code = LY%) 9.0 % 20.5-45.5 L MONOCYTE % (test code = MO%) 3.7 % 5.5-11.7 L EOSINOPHIL % (test code = EO%) 0.7 % 0.9-2.9 L BASOPHIL % (test code = BA%) 0.3 % 0.2-1.0 N NUCLEATED RBC % (test code = NRBC%) 0.0 % 0-1.0 N NEUTROPHIL # (test code = NT#) 17.53 x10 3/uL 2.2-4.8 H IMMATURE GRANULOCYTE # (test code = IG#) 0.24 x10 3/uL 0-0.03 H LYMPHOCYTE # (test code = LY#) 1.86 x10 3/uL 1.3-2.9 N MONOCYTE # (test code = MO#) 0.77 x10 3/uL 0.3-0.8 N EOSINOPHIL # (test code = EO#) 0.15 x10 3/uL 0.0-0.2 N BASOPHIL # (test code = BA#) 0.07 x10 3/uL 0.0-0.1 N [id number] 20:06:00* Test Item Value Reference Range Interpretation Comme nts GLUBED (test code = GLUBED) 212 MG/DL 74-106 H [id number] 16:05:00* Test Item Value Reference Range Interpretation Comme nts GLUBED (test code = GLUBED) 204 MG/DL 74-106 H [id number] 11:39:00* Test Item Value Reference Range Interpretation Comme nts GLUBED (test code = GLUBED) 239 MG/DL 74-106 H [id number] 06:18:00* Test Item Value Reference Range Interpretation Comme nts GLUBED (test code = GLUBED) 174 MG/DL 74-106 H COMPREHENSIVE METABOLIC [id number] 05:28:00* Test Item Value Reference Range Interpretation Comme nts SODIUM (test code = NA) 132 mmol/L 137-145 L POTASSIUM (test code = K) 4.0 mmol/L 3.4-5.0 N CHLORIDE (test code = CL) 99 mmol/L 98-107 N CARBON DIOXIDE (test code = CO2) 25 mmol/L 22-30 N GLUCOSE (test code = GLU) 166 mg/dL 74-106 H BLOOD UREA NITROGEN (test code = BUN) 16 mg/dL 9-20 N GLOMERULAR FILTRATION RATE (test code = GFR) 78 >60 The estim ated glomerular filtration rate is computed usingpatient race, age (>18), sex, and serum creatinine. If anyof the needed data elements are missing the Laboratory cannot compute an estimation of the glomerular filtration rate. CREATININE (test code = CREAT) 1.0 mg/dL 0.7-1.3 N TOTAL PROTEIN (test code = PROT) 6.2 g/dL 6.3-8.2 L ALBUMIN (test code = ALB) 2.9 g/dL 3.5-5.0 L CALCIUM (test code = CA) 7.5 mg/dL 8.4-10.2 L BILIRUBIN TOTAL (test code = BILT) 2.3 mg/dL 0.2-1.3 H BILIRUBIN CONJUGATED (test code = BILCON) 0 mg/dL 0-0.3 N ~~~~~~~~~~~ ~~~~~~~~~~ ~~~~~~~~~~~~~~~~~~~~~ ~~~~~~~~~~~~~~~~~~CON JUGATED BILIRUBIN IS THE REPLACEMENT ASSAY FOR DIRECTBILIRUBIN.~~~~~ ~~~~~~~~~~~~~~~~~~~~~ ~~~~~~~~~~~~~~~~~~~~~ ~~~~~~~~~~~~~ BILIRUBIN UNCONJUGATED (test code = BILUNC) 1.1 mg/dL 0-1.1 N SGOT/AST (test code = AST) 59 U/L 15-46 H SGPT/ALT (test code = ALT) 64 U/L 13-69 N ALKALINE PHOSPHATASE (test code = ALKP) 186 U/L 38-126 H CBC W/AUTO [id number] 05:16:00* Test Item Value Reference Range Interpretation Comme nts WHITE BLOOD CELL (test code = WBC) 21.4 x10 3/uL 5.0-12.0 H RED BLOOD CELL (test code = RBC) 3.72 x10 6/uL 4.70-6.10 L HEMOGLOBIN (test code = HGB) 11.5 g/dL 14.0-18.0 L HEMATOCRIT (test code = HCT) 34.7 % 37.0-49.0 L MEAN CELL VOLUME (test code = MCV) 93 fL 80-94 N MEAN CELL HGB (test code = MCH) 30.9 pg 27-31 N MEAN CELL HGB CONCENTRATION (test code = MCHC) 33.1 g/dL 33-37 N RED CELL DISTRIBUTION WIDTH (test code = RDW) 13.2 % 11.5-15.5 N PLATELET COUNT (test code = PLT) 247 x10 3/uL 130-400 N MEAN PLATELET VOLUME (test code = MPV) 9.9 fL 9.4-16.4 N NEUTROPHIL % (test code = NT%) 85.7 % 43-65 H IMMATURE GRANULOCYTE % (test code = IG%) 0.8 % 0.0-2.0 N LYMPHOCYTE % (test code = LY%) 9.0 % 20.5-45.5 L MONOCYTE % (test code = MO%) 3.7 % 5.5-11.7 L EOSINOPHIL % (test code = EO%) 0.5 % 0.9-2.9 L BASOPHIL % (test code = BA%) 0.3 % 0.2-1.0 N NUCLEATED RBC % (test code = NRBC%) 0.0 % 0-1.0 N NEUTROPHIL # (test code = NT#) 18.38 x10 3/uL 2.2-4.8 H IMMATURE GRANULOCYTE # (test code = IG#) 0.17 x10 3/uL 0-0.03 H LYMPHOCYTE # (test code = LY#) 1.92 x10 3/uL 1.3-2.9 N MONOCYTE # (test code = MO#) 0.80 x10 3/uL 0.3-0.8 N EOSINOPHIL # (test code = EO#) 0.10 x10 3/uL 0.0-0.2 N BASOPHIL # (test code = BA#) 0.06 x10 3/uL 0.0-0.1 N [id number] 20:25:00* Test Item Value Reference Range Interpretation Comme nts GLUBED (test code = GLUBED) 247 MG/DL 74-106 H [id number] 16:32:00* Test Item Value Reference Range Interpretation Comme nts GLUBED (test code = GLUBED) 221 MG/DL 74-106 H [id number] 12:02:00* Test Item Value Reference Range Interpretation Comme nts GLUBED (test code = GLUBED) 355 MG/DL 74-106 H COMPREHENSIVE METABOLIC [id number] 07:06:00* Test Item Value Reference Range Interpretation Comme nts SODIUM (test code = NA) 134 mmol/L 137-145 L POTASSIUM (test code = K) 4.7 mmol/L 3.4-5.0 N CHLORIDE (test code = CL) 104 mmol/L 98-107 N CARBON DIOXIDE (test code = CO2) 22 mmol/L 22-30 N GLUCOSE (test code = GLU) 231 mg/dL 74-106 H BLOOD UREA NITROGEN (test code = BUN) 11 mg/dL 9-20 N GLOMERULAR FILTRATION RATE (test code = GFR) 141 >60 The estim ated glomerular filtration rate is computed usingpatient race, age (>18), sex, and serum creatinine. If anyof the needed data elements are missing the Laboratory cannot compute an estimation of the glomerular filtration rate. CREATININE (test code = CREAT) 0.6 mg/dL 0.7-1.3 L TOTAL PROTEIN (test code = PROT) 5.0 g/dL 6.3-8.2 L ALBUMIN (test code = ALB) 2.3 g/dL 3.5-5.0 L CALCIUM (test code = CA) 7.3 mg/dL 8.4-10.2 L BILIRUBIN TOTAL (test code = BILT) 1.3 mg/dL 0.2-1.3 N BILIRUBIN CONJUGATED (test code = BILCON) 0 mg/dL 0-0.3 N ~~~~~~~~~~~ ~~~~~~~~~~ ~~~~~~~~~~~~~~~~~~~~~ ~~~~~~~~~~~~~~~~~~CON JUGATED BILIRUBIN IS THE REPLACEMENT ASSAY FOR DIRECTBILIRUBIN.~~~~~ ~~~~~~~~~~~~~~~~~~~~~ ~~~~~~~~~~~~~~~~~~~~~ ~~~~~~~~~~~~~ BILIRUBIN UNCONJUGATED (test code = BILUNC) 0.9 mg/dL 0-1.1 N SGOT/AST (test code = AST) 58 U/L 15-46 H SGPT/ALT (test code = ALT) 57 U/L 13-69 N ALKALINE PHOSPHATASE (test code = ALKP) 135 U/L 38-126 H CBC W/AUTO [id number] 06:52:00* Test Item Value Reference Range Interpretation Comme nts WHITE BLOOD CELL (test code = WBC) 22.4 x10 3/uL 5.0-12.0 H RED BLOOD CELL (test code = RBC) 3.59 x10 6/uL 4.70-6.10 L HEMOGLOBIN (test code = HGB) 11.1 g/dL 14.0-18.0 L HEMATOCRIT (test code = HCT) 34.0 % 37.0-49.0 L MEAN CELL VOLUME (test code = MCV) 95 fL 80-94 H MEAN CELL HGB (test code = MCH) 30.9 pg 27-31 N MEAN CELL HGB CONCENTRATION (test code = MCHC) 32.6 g/dL 33-37 L RED CELL DISTRIBUTION WIDTH (test code = RDW) 13.2 % 11.5-15.5 N PLATELET COUNT (test code = PLT) 241 x10 3/uL 130-400 N MEAN PLATELET VOLUME (test code = MPV) 9.5 fL 9.4-16.4 N NEUTROPHIL % (test code = NT%) 91.5 % 43-65 H IMMATURE GRANULOCYTE % (test code = IG%) 0.6 % 0.0-2.0 N LYMPHOCYTE % (test code = LY%) 4.7 % 20.5-45.5 L MONOCYTE % (test code = MO%) 3.1 % 5.5-11.7 L EOSINOPHIL % (test code = EO%) 0.0 % 0.9-2.9 L BASOPHIL % (test code = BA%) 0.1 % 0.2-1.0 L NUCLEATED RBC % (test code = NRBC%) 0.0 % 0-1.0 N NEUTROPHIL # (test code = NT#) 20.54 x10 3/uL 2.2-4.8 H IMMATURE GRANULOCYTE # (test code = IG#) 0.13 x10 3/uL 0-0.03 H LYMPHOCYTE # (test code = LY#) 1.05 x10 3/uL 1.3-2.9 L MONOCYTE # (test code = MO#) 0.69 x10 3/uL 0.3-0.8 N EOSINOPHIL # (test code = EO#) 0.00 x10 3/uL 0.0-0.2 N BASOPHIL # (test code = BA#) 0.03 x10 3/uL 0.0-0.1 N [id number] 05:57:00* Test Item Value Reference Range Interpretation Comme nts GLUBED (test code = GLUBED) 254 MG/DL 74-106 H [id number] 23:47:00* Test Item Value Reference Range Interpretation Comme nts GLUBED (test code = GLUBED) 242 MG/DL 74-106 H [id number] 20:30:00* Test Item Value Reference Range Interpretation Comme nts GLUBED (test code = GLUBED) 213 MG/DL 74-106 H [id number] 19:13:00* Test Item Value Reference Range Interpretation Comme nts GLUBED (test code = GLUBED) 182 MG/DL 74-106 H [id number] 14:25:00* Test Item Value Reference Range Interpretation Comme nts GLUBED (test code = GLUBED) 115 MG/DL 74-106 H [id number] 12:05:00* Test Item Value Reference Range Interpretation Comme nts GLUBED (test code = GLUBED) 129 MG/DL 74-106 H [id number] 07:31:00* Test Item Value Reference Range Interpretation Comme nts MAGNESIUM (test code = MAG) 1.2 mg/dL 1.6-2.3 L [id number] 06:15:00* Test Item Value Reference Range Interpretation Comme nts GLUBED (test code = GLUBED) 119 MG/DL 74-106 H COMPREHENSIVE METABOLIC [id number] 05:07:00* Test Item Value Reference Range Interpretation Comme nts SODIUM (test code = NA) 136 mmol/L 137-145 L POTASSIUM (test code = K) 3.6 mmol/L 3.4-5.0 N CHLORIDE (test code = CL) 104 mmol/L 98-107 N CARBON DIOXIDE (test code = CO2) 29 mmol/L 22-30 N GLUCOSE (test code = GLU) 132 mg/dL 74-106 H BLOOD UREA NITROGEN (test code = BUN) 7 mg/dL 9-20 L GLOMERULAR FILTRATION RATE (test code = GFR) 141 >60 The estim ated glomerular filtration rate is computed usingpatient race, age (>18), sex, and serum creatinine. If anyof the needed data elements are missing the Laboratory cannot compute an estimation of the glomerular filtration rate. CREATININE (test code = CREAT) 0.6 mg/dL 0.7-1.3 L TOTAL PROTEIN (test code = PROT) 6.6 g/dL 6.3-8.2 N ALBUMIN (test code = ALB) 3.1 g/dL 3.5-5.0 L CALCIUM (test code = CA) 8.3 mg/dL 8.4-10.2 L BILIRUBIN TOTAL (test code = BILT) 2.0 mg/dL 0.2-1.3 H BILIRUBIN CONJUGATED (test code = BILCON) 0 mg/dL 0-0.3 N ~~~~~~~~~~~ ~~~~~~~~~~ ~~~~~~~~~~~~~~~~~~~~~ ~~~~~~~~~~~~~~~~~~CON JUGATED BILIRUBIN IS THE REPLACEMENT ASSAY FOR DIRECTBILIRUBIN.~~~~~ ~~~~~~~~~~~~~~~~~~~~~ ~~~~~~~~~~~~~~~~~~~~~ ~~~~~~~~~~~~~ BILIRUBIN UNCONJUGATED (test code = BILUNC) 1.1 mg/dL 0-1.1 N SGOT/AST (test code = AST) 78 U/L 15-46 H SGPT/ALT (test code = ALT) 69 U/L 13-69 N ALKALINE PHOSPHATASE (test code = ALKP) 236 U/L 38-126 H CBC W/AUTO [id number] 04:47:00* Test Item Value Reference Range Interpretation Comme nts WHITE BLOOD CELL (test code = WBC) 8.3 x10 3/uL 5.0-12.0 N RED BLOOD CELL (test code = RBC) 4.01 x10 6/uL 4.70-6.10 L HEMOGLOBIN (test code = HGB) 12.3 g/dL 14.0-18.0 L HEMATOCRIT (test code = HCT) 37.1 % 37.0-49.0 N MEAN CELL VOLUME (test code = MCV) 93 fL 80-94 N MEAN CELL HGB (test code = MCH) 30.7 pg 27-31 N MEAN CELL HGB CONCENTRATION (test code = MCHC) 33.2 g/dL 33-37 N RED CELL DISTRIBUTION WIDTH (test code = RDW) 13.1 % 11.5-15.5 N PLATELET COUNT (test code = PLT) 260 x10 3/uL 130-400 N MEAN PLATELET VOLUME (test c ode = MPV) 9.0 fL 9.4-16.4 L NEUTROPHIL % (test code = NT%) 63.5 % 43-65 N IMMATURE GRANULOCYTE % (test code = IG%) 0.6 % 0.0-2.0 N LYMPHOCYTE % (test code = LY%) 26.7 % 20.5-45.5 N MONOCYTE % (test code = MO%) 6.2 % 5.5-11.7 N EOSINOPHIL % (test code = EO%) 2.2 % 0.9-2.9 N BASOPHIL % (test code = BA%) 0.8 % 0.2-1.0 N NUCLEATED RBC % (test code = NRBC%) 0.0 % 0-1.0 N NEUTROPHIL # (test code = NT#) 5.26 x10 3/uL 2.2-4.8 H IMMATURE GRANULOCYTE # (test code = IG#) 0.05 x10 3/uL 0-0.03 H LYMPHOCYTE # (test code = LY#) 2.21 x10 3/uL 1.3-2.9 N MONOCYTE # (test code = MO#) 0.51 x10 3/uL 0.3-0.8 N EOSINOPHIL # (test code = EO#) 0.18 x10 3/uL 0.0-0.2 N BASOPHIL # (test code = BA#) 0.07 x10 3/uL 0.0-0.1 N [id number] 21:03:00* Test Item Value Reference Range Interpretation Comme nts GLUBED (test code = GLUBED) 140 MG/DL 74-106 H Novel Coronavirus 2019 [id number] 17:09:00* Test Item Value Reference Range Interpretation Comme nts Novel Coronavirus 2019 Inhouse (test code = COVNONPUI) Negative Negative Positive resul ts are indicative of the presence [id number] RNA, clinical correlation with patient historyand other diagnostic information is necessary to determinepatient infection status. Positive results do not rule outbacterial infection or co-infection with other viruses. Negative results do not preclude SARS-CoV-2 infection andshould not be used as the sole basis for patient managementdecisions. Negative results must be combined with otherclinical observations, patient history, and epidemiologicalinformation . Detection of SARS-CoV-2 RNA may be affected bysample collection methods, storage conditions, and/or stageof infection. Viral RNA mutations, vaccinations, antiviraltherapeutics, antibiotics, chemotherapeutic orimmunosuppressant drugs have not been evaluated for effectson detection. Results are for the identification of SARS-CoV-2 RNA usingthe [employer] M2000 System under the FDA Emergency UseAuthorization. The testing is performed by personneltrained in the procedures for the [employer] M2000 moleculardiagnostic SARS-CoV-2 assay in vitro. SENT TO: [facility] SPECIMEN TYPE: NASOPHARYNGEAL SWABSpec Comments: ACUTE CHOLECYSTITIS; POSSIBLE OR 09/23/2019Testing Criteria: Pre-procedure Screening Novel Coronavirus 2019 [id number] 17:09:00* Test Item Value Reference Range Interpretation Comme [facility] Novel Coronavirus 2019 Inh se (test code = COVNONPUI) Negative Negative SENT TO: [facility] SPECIMEN TYPE: NASOPHARYNGEAL SWABSpec Comments: ACUTE CHOLECYSTITIS; POSSIBLE OR 09/23/2019Testing Criteria: Pre-procedure Screening [id number] 15:42:00* Test Item Value Reference Range Interpretation Comme nts GLUBED (test code = GLUBED) 227 MG/DL 74-106 H HGBA1C - GLYCOSYLATED [id number] 13:01:00* Test Item Value Reference Range Interpretation Comme nts GLYCOSYLATED HEMOGLOBIN (HA1C) (test code = GLYHGB) 9.5 % 0-5.9 H Current nisha delines recommend a treatment goal of <7% fordiabetic patients. A1c may be overestimated in diabeticpatients exhibiting poor control and who are alsoheterozygous or homozygous for HgbS or HgbC. Totalglycohemoglobin is a better indicator of diabetic control inpatients with these hemoglobin variants. [id number] 11:56:00* Test Item Value Reference Range Interpretation Comme nts GLUBED (test code = GLUBED) 270 MG/DL 74-106 H COMPREHENSIVE METABOLIC [id number] 09:16:00* Test Item Value Reference Range Interpretation Comme nts SODIUM (test code = NA) 137 mmol/L 137-145 N POTASSIUM (test code = K) 3.6 mmol/L 3.4-5.0 N CHLORIDE (test code = CL) 105 mmol/L 98-107 N CARBON DIOXIDE (test code = CO2) 25 mmol/L 22-30 N GLUCOSE (test code = GLU) 152 mg/dL 74-106 H BLOOD UREA NITROGEN (test code = BUN) 10 mg/dL 9-20 N GLOMERULAR FILTRATION RATE (test code = GFR) 118 >60 The estim ated glomerular filtration rate is computed usingpatient race, age (>18), sex, and serum creatinine. If anyof the needed data elements are missing the Laboratory cannot compute an estimation of the glomerular filtration rate. CREATININE (test code = CREAT) 0.7 mg/dL 0.7-1.3 N TOTAL PROTEIN (test code = PROT) 6.4 g/dL 6.3-8.2 N ALBUMIN (test code = ALB) 3.0 g/dL 3.5-5.0 L CALCIUM (test code = CA) 8.2 mg/dL 8.4-10.2 L BILIRUBIN TOTAL (test code = BILT) 1.8 mg/dL 0.2-1.3 H BILIRUBIN CONJUGATED (test code = BILCON) 0 mg/dL 0-0.3 N ~~~~~~~~~~~ ~~~~~~~~~~ ~~~~~~~~~~~~~~~~~~~~~ ~~~~~~~~~~~~~~~~~~CON JUGATED BILIRUBIN IS THE REPLACEMENT ASSAY FOR DIRECTBILIRUBIN.~~~~~ ~~~~~~~~~~~~~~~~~~~~~ ~~~~~~~~~~~~~~~~~~~~~ ~~~~~~~~~~~~~ BILIRUBIN UNCONJUGATED (test code = BILUNC) 1.0 mg/dL 0-1.1 N SGOT/AST (test code = AST) 56 U/L 15-46 H SGPT/ALT (test code = ALT) 66 U/L 13-69 N ALKALINE PHOSPHATASE (test code = ALKP) 221 U/L 38-126 H [id number] 09:16:00* Test Item Value Reference Range Interpretation Comme nts PHOSPHOROUS (test code = PHOS) 3.3 mg/dL 2.5-4.5 N [id number] 09:16:00* Test Item Value Reference Range Interpretation Comme nts MAGNESIUM (test code = MAG) 0.9 mg/dL 1.6-2.3 L Critical Value reported toFirst Name: [id number] Name:RESULTS READ BACK AND VERIFIEDby SAJNAY, on 09/24/19, @ 0916. [id number] 06:45:00* Test Item Value Reference Range Interpretation Comme nts GLUBED (test code = GLUBED) 133 MG/DL 74-106 H CBC W/AUTO [id number] 06:29:00* Test Item Value Reference Range Interpretation Comme nts WHITE BLOOD CELL (test code = WBC) 10.5 x10 3/uL 5.0-12.0 N RED BLOOD CELL (test code = RBC) 3.98 x10 6/uL 4.70-6.10 L HEMOGLOBIN (test code = HGB) 12.3 g/dL 14.0-18.0 L HEMATOCRIT (test code = HCT) 36.4 % 37.0-49.0 L MEAN CELL VOLUME (test code = MCV) 92 fL 80-94 N MEAN CELL HGB (test code = MCH) 30.9 pg 27-31 N MEAN CELL HGB CONCENTRATION (test code = MCHC) 33.8 g/dL 33-37 N RED CELL DISTRIBUTION WIDTH (test code = RDW) 13.2 % 11.5-15.5 N PLATELET COUNT (test code = PLT) 293 x10 3/uL 130-400 N MEAN PLATELET VOLUME (test c ode = MPV) 9.2 fL 9.4-16.4 L NEUTROPHIL % (test code = NT%) 70.3 % 43-65 H IMMATURE GRANULOCYTE % (test code = IG%) 0.8 % 0.0-2.0 N LYMPHOCYTE % (test code = LY%) 21.2 % 20.5-45.5 N MONOCYTE % (test code = MO%) 5.4 % 5.5-11.7 L EOSINOPHIL % (test code = EO%) 1.6 % 0.9-2.9 N BASOPHIL % (test code = BA%) 0.7 % 0.2-1.0 N NUCLEATED RBC % (test code = NRBC%) 0.0 % 0-1.0 N NEUTROPHIL # (test code = NT#) 7.35 x10 3/uL 2.2-4.8 H IMMATURE GRANULOCYTE # (test code = IG#) 0.08 x10 3/uL 0-0.03 H LYMPHOCYTE # (test code = LY#) 2.22 x10 3/uL 1.3-2.9 N MONOCYTE # (test code = MO#) 0.56 x10 3/uL 0.3-0.8 N EOSINOPHIL # (test code = EO#) 0.17 x10 3/uL 0.0-0.2 N BASOPHIL # (test code = BA#) 0.07 x10 3/uL 0.0-0.1 N [id number] 23:11:00* Test Item Value Reference Range Interpretation Comme nts GLUBED (test code = GLUBED) 283 MG/DL 74-106 H [id number] 16:03:00* Test Item Value Reference Range Interpretation Comme nts GLUBED (test code = GLUBED) 208 MG/DL 74-106 H [id number] 13:05:00* Test Item Value Reference Range Interpretation Comme nts GLUBED (test code = GLUBED) 136 MG/DL 74-106 H - MRI [id number] 12:49:00FAX: Lizzy Peetrsen MD [phone] [place]: St: ADM FAX: Dulce Bradford MD [phone] Name: [facility] : 1950 Age/S: 69/M [address] Unit #: [id number] Loc: C.8508 [place] [address] Phys: Dulce Bradford MD Acct: [id number] Dis Date: Status: ADM IN PHONE #: [phone] Exam Date: 09/23/2019 1220 FAX #: [phone] Reason: BILIARY PANCREATITIS, SUSPECT CHOLEDOCHOLITHIAS EXAMS: CPT CODE: [id number] MRI MRCP 11613 Indication: BILIARY PANCREATITIS, SUSPECT CHOLEDOCHOLITHIASIS TECHNIQUE: MRI of the upper abdomen is obtained [...] of the spleen, pancreas, adrenals, and the kidneys appear normal. There are varices in the splenic [...] Signed Report (CONTINUED) FAX: Lizzy Petersen MD [phone] [place]: St: [facility] FAX: Dulce Bradford MD [phone] Name: [facility] : 1950 Age/S: 69/M [address] Unit #: [id number] Loc: C.0286 [place] [address] Phys: Dulce Bradford MD Acct: [id number] Dis Date: Status: ADM IN PHONE #: [phone] Exam Date: 09/23/2019 1220 FAX #: [phone] Reason: BILIARY PANCREATITIS, SUSPECT CHOLEDOCHOLITHIAS EXAMS: CPT CODE: [id number] MRI MRCP 58677 (Continued) Elect ronically Signed by RONDA ARITA MD on 09/23/2019 at 1249 Reported and signed by: DANIELA ARITA CC: Lizzy Duke MD; Dulce Bradford MD Technologist: [facility]IZ RAHMAN [facility] Date/Time/By: 09/23/2019 (5275) : By: [email or web address] PAGE 2 Signed Report FAX: Lizzy Petersen MD [phone] [place]: St: ADM FAX: Dulce Bradford MD [phone] Name: [place] [place] [facility] : 1950 Age/S: 69/M [address] Unit #: [id number] Loc: C.3318 [place] [address] Phys: Dulce Bradford MD Acct: [id number] Dis Date: Status: ADM IN PHONE #: [phone] Exam Date: 09/23/2019 1220 FAX #: [phone] Reason: BILIARY PANCREATITIS, SUSPECT CHOLEDOCHOLITHIAS EXAMS: CPT CODE: [id number] MRI MRCP 85428 (Continued) Orig Print D/T: S: 09/23/2019 (8792) PAGE 3 Signed [id number] 06:28:00* Test Item Value Reference Range Interpretation Comme nts GLUBED (test code = GLUBED) 146 MG/DL 74-106 H LIVER FUNCTION [id number] 04:53:00* Test Item Value Reference Range Interpretation Comme nts TOTAL PROTEIN (test code = PROT) 6.3 g/dL 6.3-8.2 N ALBUMIN (test code = ALB) 3.0 g/dL 3.5-5.0 L BILIRUBIN TOTAL (test code = BILT) 2.0 mg/dL 0.2-1.3 H BILIRUBIN CONJUGATED (test code = BILCON) 0 mg/dL 0-0.3 N ~~~~~~~~~~~ ~~~~~~~~~~ ~~~~~~~~~~~~~~~~~~~~~ ~~~~~~~~~~~~~~~~~~CON JUGATED BILIRUBIN IS THE REPLACEMENT ASSAY FOR DIRECTBILIRUBIN.~~~~~ ~~~~~~~~~~~~~~~~~~~~~ ~~~~~~~~~~~~~~~~~~~~~ ~~~~~~~~~~~~~ BILIRUBIN UNCONJUGATED (test code = BILUNC) 1.1 mg/dL 0-1.1 N SGOT/AST (test code = AST) 53 U/L 15-46 H SGPT/ALT (test code = ALT) 69 U/L 13-69 N ALKALINE PHOSPHATASE (test code = ALKP) 223 U/L 38-126 H [id number] 04:53:00* Test Item Value Reference Range Interpretation Comme nts LIPASE (test code = LIP) 225 U/L 23-300 N CBC W/AUTO [id number] 04:29:00* Test Item Value Reference Range Interpretation Comme nts WHITE BLOOD CELL (test code = WBC) 10.7 x10 3/uL 5.0-12.0 N RED BLOOD CELL (test code = RBC) 3.98 x10 6/uL 4.70-6.10 L HEMOGLOBIN (test code = HGB) 12.5 g/dL 14.0-18.0 L HEMATOCRIT (test code = HCT) 35.8 % 37.0-49.0 L MEAN CELL VOLUME (test code = MCV) 90 fL 80-94 N MEAN CELL HGB (test code = MCH) 31.4 pg 27-31 H MEAN CELL HGB CONCENTRATION (test code = MCHC) 34.9 g/dL 33-37 N RED CELL DISTRIBUTION WIDTH (test code = RDW) 13.2 % 11.5-15.5 N PLATELET COUNT (test code = PLT) 263 x10 3/uL 130-400 N MEAN PLATELET VOLUME (test c ode = MPV) 9.5 fL 9.4-16.4 N NEUTROPHIL % (test code = NT%) 71.6 % 43-65 H IMMATURE GRANULOCYTE % (test code = IG%) 1.0 % 0.0-2.0 N LYMPHOCYTE % (test code = LY%) 20.4 % 20.5-45.5 L MONOCYTE % (test code = MO%) 4.8 % 5.5-11.7 L EOSINOPHIL % (test code = EO%) 1.7 % 0.9-2.9 N BASOPHIL % (test code = BA%) 0.5 % 0.2-1.0 N NUCLEATED RBC % (test code = NRBC%) 0.0 % 0-1.0 N NEUTROPHIL # (test code = NT#) 7.68 x10 3/uL 2.2-4.8 H IMMATURE GRANULOCYTE # (test code = IG#) 0.11 x10 3/uL 0-0.03 H LYMPHOCYTE # (test code = LY#) 2.18 x10 3/uL 1.3-2.9 N MONOCYTE # (test code = MO#) 0.51 x10 3/uL 0.3-0.8 N EOSINOPHIL # (test code = EO#) 0.18 x10 3/uL 0.0-0.2 N BASOPHIL # (test code = BA#) 0.05 x10 3/uL 0.0-0.1 N [id number] 20:01:00* Test Item Value Reference Range Interpretation Comme nts GLUBED (test code = GLUBED) 152 MG/DL 74-106 H LIPID PROFILE (CORONARY RISK)2019-09-22 18:15:00* Test Item Value Reference Range Interpretation Comme nts TRIGLYCERIDES (test code = TRIG) 189 mg/dL TRIGLYCERIDES REFERENCE RANGE:Normal: <150 mg/dLBorderline High: 150-199 mg/dLHigh: 200-499 mg/dLVery High: >=500 mg/dL CHOLESTEROL (test code = CHOL) 188 mg/dL CHOLESTEROL REFERENCE RANGE:DESIRABLE: < 200 mg/dLBORDERLINE: 200-239 mg/dLHIGH: >=240 mg/dL HDL CHOLESTEROL (test code = HDL) 23 mg/dL 40-59 L LIPOPROTEIN LDL (test code = LDLC) 101.68 mg/dL 32-99 H CORONARY RISK FACTOR (test code = RISK) 8.17 CHOL/HDL RISK MALE: 1/2 AVG 3.43 FEMALE: 1/2 AVG 3.27 AVG 4.97 AVG 4.44 2X AVG 9.55 2X AVG 7.05 3X AVG 23.39 3X AVG 11.04~~~~~~~~~~~~~~~ ~~~~~~~~~~~~~~~~~~~~ ~~~~~~~~~~~~~~~~~~~~ ~~~~~National Cholesterol Education (NCEP) Guidelines:~~~~~~~~~ ~~~~~~~~~~~~~~~~~~~~ ~~~~~~~~~~~~~~~~~~~~ ~~~~~~~~~~~ HDL Cholesterol<40mg/d L: HDL Cholesterol (Major risk factor for CHD)>60mg/dL: HDL Cholesterol (Negative risk factor for CHD)40-59mg/dL: Borderline Risk LDL Cholesterol<100mg/ dL: Desirable LDL-C ohrtscickezlq465-231 mg/dL: Borderline High Risk LDL-C broyaopgwiubh534-907 mg/dL: High risk LDL-C concentration HDL-LDL Cholesterol is affected by a number of factors suchas smoking, age and sex.~~~~~~~~~~~~~~~~ ~~~~~~~~~~~~~~~~~~~~ ~~~~~~~~~~~~~~~~~~~~ ~~~~ LIPID PROFILE (CORONARY RISK)2019-09-22 18:10:00* Test Item Value Reference Range Interpretation Comme nts TRIGLYCERIDES (test code = TRIG) 189 mg/dL TRIGLYCERIDES REFERENCE RANGE:Normal: <150 mg/dLBorderline High: 150-199 mg/dLHigh: 200-499 mg/dLVery High: >=500 mg/dL CHOLESTEROL (test code = CHOL) 188 mg/dL CHOLESTEROL REFE RENCE RANGE:DESIRABLE: < 200 mg/dLBORDERLINE: 200-239 mg/dLHIGH: >=240 mg/dL HDL CHOLESTEROL (test code = HDL) 23 mg/dL 40-59 L LIPOPROTEIN LDL (test code = LDLC) mg/dL 32-99 CORONARY RISK FACTOR (test code = RISK) 8.17 CHOL/HDL RISK MALE: 1/2 AVG 3.43 FEMALE: 1/2 AVG 3.27 AVG 4.97 AVG 4.44 2X AVG 9.55 2X AVG 7.05 3X AVG 23.39 3X AVG 11.04~~~~~~~~~~~~~~~~~ ~~~~~~~~~~~~~~~~~~~~~~ ~~~~~~~~~~~~~~~~~~~~~[facility] Cholesterol Education (NCEP) Guidelines:~~~~~~~~~~~ ~~~~~~~~~~~~~~~~~~~~~~ ~~~~~~~~~~~~~~~~~~~~~~ ~~~~~ HDL Cholesterol<40mg/dL: HDL Cholesterol (Major risk factor for CHD)>60mg/dL: HDL Cholesterol (Negative risk factor for CHD)40-59mg/dL: Borderline Risk LDL Cholesterol<100mg/dL : Desirable LDL-C bguyxinffoela802-775rb /dL: Borderline High Risk LDL-C yxoajsgmjyqds621-175cv /dL: High risk LDL-C concentration HDL-LDL Cholesterol is affected by a number of factors suchas smoking, age and sex.~~~~~~~~~~~~~~~~~~ ~~~~~~~~~~~~~~~~~~~~~~ ~~~~~~~~~~~~~~~~~~~~ LACTIC [id number] 18:03:00* Test Item Value Reference Range Interpretation Comme nts LACTIC ACID (test code = LACT) 1.8 mmol/L 0.7-2.0 N URINALYSIS [id number] 17:29:00* Test Item Value Reference Range Interpretation Comme nts UA COLOR (test code = COLU) Yellow Yellow UA APPEARANCE (test code = APPU) Clear Clear UA GLUCOSE DIPSTICK (test co de = DGLUU) 150 (2+) Negative A UA BILIRUBIN DIPSTICK (test code = BILU) Negative Negative UA KETONE DIPSTICK (test cod e = KETU) Negative mg/dL Negative UA SPECIFIC GRAVITY (test co de = SGU) 1.014 <1.030 UA BLOOD DIPSTICK (test code = BUTCH) Negative Negative UA PH DIPSTICK (test code = ECHO) 6.0 5.0-8.0 UA PROTEIN DIPSTICK (test co de = PROU) NEGATIVE mg/dL Negative UA UROBILINOGEN DIPSTICK (te st code = URO) Negative mg/dL Negative UA NITRITE DIPSTICK (test co de = SHANDA) Negative Negative UA LEUKOCYTE ESTERASE DIPSTI CK (test code = LEUU) NEGATIVE Negative UA WBC (test code = WBCU) 0-3 /HPF <4-5 UA RBC (test code = RBCU) 0-3 /HPF <4-5 UA BACTERIA (test code = BACU) NONE SEEN /HPF None-Rare - US ABDOMEN [id number] 15:54:00Campus: St: REG -- Name: [facility] : 1950 Age/S: 69/M [address] Unit #: [id number] Loc: [place] [address] Phys: Dimple Hicks [employer] Acct: [id number] Dis Date: Status: REG ER PHONE #: [phone] Exam Date: 09/22/2019 1546 FAX #: [phone] Reason: RUQ ABD PAIN EXAMS: CPT CODE: [id number] US ABDOMEN LTD 23127 LOCATION: T18 EXAM: - US ABDOMEN LTD INDICATION: Right upper quadrant abdominal pain COMPARISON: None. TECHNIQUE: Real-time grayscale sonographic imagesof the abdomen are submitted for interpretation. FINDINGS: Pancreas is obscured by overlying artifact. Abdominal aorta and IVC are also obscured by overlying artifact. Liver is heterogeneous measuring 14.3 cm in size. Nodular contour of the liver noted. No focal soft tissue mass is seen. However there is a simple hepatic cyst measuring 2.3 x 2.1 x 2.2 cm. Gallbladder is adequately distended. Gallbladder is filled with sludge and multiple stones. Largest stone measures 2 cm in size. Gallbladder wall is thickened measuring 4.9 mm. No pericholecystic fluid is present. No sonographic Byers's sign was elicited. Common bile duct measures 2.4 mm diameter. Right kidney is normal in echogenicity measuring 11.4 x 5.8 x 6.5 cm. Renal cortex measures 1.9 cm in thickness. No focal abnormality or hydr onephrosis is identified. IMPRESSION: Distended gallbladder filled with sludge and stones measuring up to 2 similar. Gallbladder wall thickening. Findings concerning for cholecystitis. Cirrhotic heterogeneous liver. at 1554 Reported and signed by: Ari Mcdonnell MD CC: Technologist: GISELE PIERCE Trnscrd Date/Time/By: 09/22/2019 (9322) : By: [email or web address] PAGE 1 Signed Report [place]: St: REG Name: [facility] : 1950 Age/S: 69/M [address] Unit #: [id number] Loc: [place] [address] Phys: KurtTaniaisaac [employer] Acct: [id number] Dis Date: Status: REG ER PHONE #: [phone] Exam Date: 09/22/2019 1546 FAX #: [phone] Reason: RUQ ABD PAIN EXAMS: CPT CODE: [id number] US ABDOMEN LTD 50884 (Continued) OrigPrint D/T: S: 09/22/2019 (4090) PAGE 2 Signed Report TROPONIN I [id number] 15:50:00* Test Item Value Reference Range Interpretation Comme nts TROPONIN I RAPID (test code = TROPIRAP) 0.00 ng/mL 0.00-0.079 N ISTAT TROPONIN I CRITERIA0.00-0.08 ng/mL - Negative>0.08 ng/mL - Positive The use of serial sampling and testing protocol is arecommended practice.An elevated troponin level alone is often not sufficient fordiagnosis of myocardial infarction. Troponin results obtained by different assays may vary.Evaluation of the extent of myocardial damage based onincrease of troponin would be valid only if similarmethodology is used. BASIC METABOLIC [id number] 15:49:00* Test Item Value Reference Range Interpretation Comme nts SODIUM (test code = NA) 132 mmol/L 137-145 L POTASSIUM (test code = K) 3.9 mmol/L 3.4-5.0 N CHLORIDE (test code = CL) 101 mmol/L 98-107 N CARBON DIOXIDE (test code = CO2) 20 mmol/L 22-30 L GLUCOSE (test code = GLU) 237 mg/dL 74-106 H BLOOD UREA NITROGEN (test code = BUN) 21 mg/dL 9-20 H GLOMERULAR FILTRATION RATE (test code = GFR) 88 >60 The estimated glomerular filtration rate is computed usingpatient race, age (>18), sex, and serum creatinine. If anyof the needed data elements are missing the Laboratory cannot compute an estimation of the glomerular filtration rate. CREATININE (test code = CREAT) 0.9 mg/dL 0.7-1.3 N CALCIUM (test code = CA) 8.2 mg/dL 8.4-10.2 L LIVER FUNCTION [id number] 15:49:00* Test Item Value Reference Range Interpretation Comme nts TOTAL PROTEIN (test code = PROT) 7.0 g/dL 6.3-8.2 N ALBUMIN (test code = ALB) 3.3 g/dL 3.5-5.0 L BILIRUBIN TOTAL (test code = BILT) 2.2 mg/dL 0.2-1.3 H BILIRUBIN CONJUGATED (test code = BILCON) 0 mg/dL 0-0.3 N ~~~~~~~~~~~ ~~~~~~~~~~ ~~~~~~~~~~~~~~~~~~~~~ ~~~~~~~~~~~~~~~~~~CON JUGATED BILIRUBIN IS THE REPLACEMENT ASSAY FOR DIRECTBILIRUBIN.~~~~~ ~~~~~~~~~~~~~~~~~~~~~ ~~~~~~~~~~~~~~~~~~~~~ ~~~~~~~~~~~~~ BILIRUBIN UNCONJUGATED (test code = BILUNC) 0.9 mg/dL 0-1.1 N SGOT/AST (test code = AST) 65 U/L 15-46 H SGPT/ALT (test code = ALT) 68 U/L 13-69 N ALKALINE PHOSPHATASE (test code = ALKP) 272 U/L 38-126 H [id number] 15:49:00* Test Item Value Reference Range Interpretation Comme nts LIPASE (test code = LIP) 501 U/L 23-300 H LACTIC [id number] 15:47:00* Test Item Value Reference Range Interpretation Comme nts LACTIC ACID (test code = LACT) 2.6 mmol/L 0.7-2.0 HH Critical Value r eported toFirst Name:[id number] Last Name:RESULTS READ BACK AND VERIFIEDby CCLAUDIA, on 09/22/19, @ 8667. PROTHROMBIN [id number] 15:38:00* Test Item Value Reference Range Interpretation Comme nts PROTHROMBIN TIME PATIENT (test code = PTP) 15.4 SECONDS 9.2-12.1 H INTERNATIONAL NORMAL RATIO (test code = INR) 1.4 The INR is to be used only for monitoring ORAL ANTICOAGULANTTHERAPY. Indication INR Value1. Prophylaxis/treatment of: Venous Thrombosis, Pulmonary Embolism 2.0 - 3.02. Prevention of systemic embolism from: Tissue heart valves 2.0 - 3.0 Acute myocardial infarction (to present systemic embolism)* 2.0 - 3.0 Valvular heart disease 2.0 - 3.0 Atrial fibrillation 2.0 - 3.03. Mechanical prosthetic valves (high risk) 2.5 - 3.5 * If oral anticoagulant therapy is elected to preventrecurrent myocardial infarction, an INR of 2.5-3.5 isrecommended, consistent with Food and Drug Administrationrecommen dations. IS PATIENT ON ANTICOAGULANTS ? NCBC W/AUTO [id number] 15:27:00* Test Item Value Reference Range Interpretation Comme nts WHITE BLOOD CELL (test code = WBC) 9.4 x10 3/uL 5.0-12.0 N RED BLOOD CELL (test code = RBC) 4.13 x10 6/uL 4.70-6.10 L HEMOGLOBIN (test code = HGB) 13.0 g/dL 14.0-18.0 L HEMATOCRIT (test code = HCT) 36.8 % 37.0-49.0 L MEAN CELL VOLUME (test code = MCV) 89 fL 80-94 N MEAN CELL HGB (test code = MCH) 31.5 pg 27-31 H MEAN CELL HGB CONCENTRATION (test code = MCHC) 35.3 g/dL 33-37 N RED CELL DISTRIBUTION WIDTH (test code = RDW) 13.1 % 11.5-15.5 N PLATELET COUNT (test code = PLT) 261 x10 3/uL 130-400 N MEAN PLATELET VOLUME (test c ode = MPV) 9.4 fL 9.4-16.4 N NEUTROPHIL % (test code = NT%) 77.0 % 43-65 H IMMATURE GRANULOCYTE % (test code = IG%) 0.8 % 0.0-2.0 N LYMPHOCYTE % (test code = LY%) 16.8 % 20.5-45.5 L MONOCYTE % (test code = MO%) 3.8 % 5.5-11.7 L EOSINOPHIL % (test code = EO%) 1.0 % 0.9-2.9 N BASOPHIL % (test code = BA%) 0.6 % 0.2-1.0 N NUCLEATED RBC % (test code = NRBC%) 0.0 % 0-1.0 N NEUTROPHIL # (test code = NT#) 7.26 x10 3/uL 2.2-4.8 H IMMATURE GRANULOCYTE # (test code = IG#) 0.08 x10 3/uL 0-0.03 H LYMPHOCYTE # (test code = LY#) 1.58 x10 3/uL 1.3-2.9 N MONOCYTE # (test code = MO#) 0.36 x10 3/uL 0.3-0.8 N EOSINOPHIL # (test code = EO#) 0.09 x10 3/uL 0.0-0.2 N BASOPHIL # (test code = BA#) 0.06 x10 3/uL 0.0-0.1 N - DUP VEIN [id number] 17:58:00Campus: [place] St: REG -- Name: [facility] : 1950 Age/S: 68/M [address] Unit #: [id number] Loc: [place] [address] Phys: Pito Hayden MD Acct: [id number] Dis Date: Status: REG ER PHONE #: [phone] Exam Date: 10/26/2018 8867 FAX #: [phone] Reason: leg swelling EXAMS: CPT CODE: [id number] [facility] VEIN MAUDE [address] Location: T18 Lower extremity venous doppler ultrasound, [...] right or left lower extremity DVT at 4080 Reported and signed by: Kaden Coyle MD CC: Technologist: HERBIE NEFF Trnscrd Date/Time/By: 10/26/2018 (1758) : By: [email or web address] PAGE 1 Signed Report [place]: St: REG Name: [facility] : 1950 Age/S: 68/M [address] Unit #: [id number] Loc: [place] [address] Phys: Pito Hayden MD Acct: [id number] Dis Date: Status: REG ER PHONE #: [phone] Exam Date: 10/26/2018 1736 FAX #: [phone] Reason: leg swelling EXAMS: CPT CODE: [id number] [place]UP VEIN MAUDE [address] (Continued) Orig Print D/T: S: 10/26/2018 (1808) PAGE 2 Signed ReportBASIC METABOLIC [id number] 17:01:00* Test Item Value Reference Range Interpretation Comme nts SODIUM (test code = NA) 138 mmol/L 137-145 N POTASSIUM (test code = K) 3.5 mmol/L 3.4-5.0 N CHLORIDE (test code = CL) 105 mmol/L 98-107 N CARBON DIOXIDE (test code = CO2) 26 mmol/L 22-30 N GLUCOSE (test code = GLU) 237 mg/dL 74-106 H BLOOD UREA NITROGEN (test code = BUN) 17 mg/dL 9-20 N GLOMERULAR FILTRATION RATE (test code = GFR) 175 >60 The estimated glomerular filtration rate is computed usingpatient race, age (>18), sex, and serum creatinine. If anyof the needed data elements are missing the Laboratory cannot compute an estimation of the glomerular filtration rate. CREATININE (test code = CREAT) 0.5 mg/dL 0.7-1.3 L CALCIUM (test code = CA) 9.3 mg/dL 8.4-10.2 N LIVER FUNCTION [id number] 17:01:00* Test Item Value Reference Range Interpretation Comme nts TOTAL PROTEIN (test code = PROT) 7.3 g/dL 6.3-8.2 N ALBUMIN (test code = ALB) 4.0 g/dL 3.5-5.0 N BILIRUBIN TOTAL (test code = BILT) 0.8 mg/dL 0.2-1.3 N BILIRUBIN CONJUGATED (test code = BILCON) 0 mg/dL 0-0.3 N ~~~~~~~~~~~ ~~~~~~~~~~ ~~~~~~~~~~~~~~~~~~~~~ ~~~~~~~~~~~~~~~~~~CON JUGATED BILIRUBIN IS THE REPLACEMENT ASSAY FOR DIRECTBILIRUBIN.~~~~~ ~~~~~~~~~~~~~~~~~~~~~ ~~~~~~~~~~~~~~~~~~~~~ ~~~~~~~~~~~~~ BILIRUBIN UNCONJUGATED (test code = BILUNC) 0.6 mg/dL 0-1.1 N SGOT/AST (test code = AST) 62 U/L 15-46 H SGPT/ALT (test code = ALT) 60 U/L 13-69 N ALKALINE PHOSPHATASE (test code = ALKP) 55 U/L 38-126 N NT PRO-BRAIN NATRIURETIC [id number] 17:01:00* Test Item Value Reference Range Interpretation Comme nts NT PRO-BRAIN NATRIURETIC PEPTI (test code = PROBNP) 116 pg/mL 0-299 N ~~~~~~~~~~~ ~~~~~~~~~~~~~ ~~~~~~~~~~~~~~~~~~~~~~~~ ~~~~~~~~~~~~NT PRO-BNP IS THE REPLACEMENT ASSAY FOR BNP.~~~~~~~~~~~~~~~~~~~~ ~~~~~~~~~~~~~~~~~~~~~~~~ ~~~~~~~~~~~~~~~~RULE-IN CUT POINTS FOR PATIENTS WITH SUSPECTED ACUTECONGESTIVE HEART FAILURE:<50 yrs old: >450 pg/mL50-75 yrs old: >900 pg/mL>75 yrs old: >1800 pg/mL A positive bias may occur on patients taking BIOTINsupplements. BASIC METABOLIC [id number] 16:51:00* Test Item Value Reference Range Interpretation Comme nts SODIUM (test code = NA) 138 mmol/L 137-145 N POTASSIUM (test code = K) 3.5 mmol/L 3.4-5.0 N CHLORIDE (test code = CL) 105 mmol/L 98-107 N CARBON DIOXIDE (test code = CO2) 26 mmol/L 22-30 N GLUCOSE (test code = GLU) 237 mg/dL 74-106 H BLOOD UREA NITROGEN (test code = BUN) 17 mg/dL 9-20 N GLOMERULAR FILTRATION RATE (test code = GFR) 175 >60 The estimated glomerular filtration rate is computed usingpatient race, age (>18), sex, and serum creatinine. If anyof the needed data elements are missing the Laboratory cannot compute an estimation of the glomerular filtration rate. CREATININE (test code = CREAT) 0.5 mg/dL 0.7-1.3 L CALCIUM (test code = CA) 9.3 mg/dL 8.4-10.2 N LIVER FUNCTION [id number] 16:51:00* Test Item Value Reference Range Interpretation Comme nts TOTAL PROTEIN (test code = PROT) 7.3 g/dL 6.3-8.2 N ALBUMIN (test code = ALB) 4.0 g/dL 3.5-5.0 N BILIRUBIN TOTAL (test code = BILT) 0.8 mg/dL 0.2-1.3 N BILIRUBIN CONJUGATED (test code = BILCON) 0 mg/dL 0-0.3 N ~~~~~~~~~~~ ~~~~~~~~~~ ~~~~~~~~~~~~~~~~~~~~~ ~~~~~~~~~~~~~~~~~~CON JUGATED BILIRUBIN IS THE REPLACEMENT ASSAY FOR DIRECTBILIRUBIN.~~~~~ ~~~~~~~~~~~~~~~~~~~~~ ~~~~~~~~~~~~~~~~~~~~~ ~~~~~~~~~~~~~ BILIRUBIN UNCONJUGATED (test code = BILUNC) 0.6 mg/dL 0-1.1 N SGOT/AST (test code = AST) 62 U/L 15-46 H SGPT/ALT (test code = ALT) 60 U/L 13-69 N ALKALINE PHOSPHATASE (test code = ALKP) 55 U/L 38-126 N NT PRO-BRAIN NATRIURETIC [id number] 16:51:00* Test Item Value Reference Range Interpretation Comme nts NT PRO-BRAIN NATRIURETIC PEP TI (test code = PROBNP) pg/mL 0-299 - XR CHEST 1 [id number] 16:48:00Campus: EMELINA St: REG -- Name: SEYMOUR SNOW [facility] : 1950 Age/S: 68/M [address] Unit #: [id number] Loc: [place] [address] Phys: Pito Hayden MD Acct: [id number] Dis Date: Status: REG ER PHONE #: [phone] Exam Date: 10/26/2018 1642 FAX #: [phone] Reason: chest pain EXAMS: CPT CODE: [id number] XR CHEST 1 V 40204 C3 TIME OF STUDY: 10/26/2018 4:17 PM REASON FOR EXAM: chest pain COMPARISON: None. FINDINGS: AP view of the chest was obtained. Lungs: Normal lung volume. Nomass, or consolidation. Normal pulmonary vascularity. Pleura: No pleural effusion or pneumothorax. Heart and Mediastinum: Normal cardiomediastinal silhouette and great vessels. Bones: Normal regionalskeletal structures. IMPRESSION: 1. No acute cardiopulmonary process. at 1648 Reported and signed by: Pepito Khan MD CC: Technologist: STEVE COOPER Trnscrd Date/Time/By: 10/26/2018 (4313) : By: [email or web address] PAGE 1 Signed Report [place]: St: R EG - Name: JAYLA SARAH,SEYMOUR [facility] : 1950 Age/S: 68/M [address] Unit #: [id number] Loc: [place] [address] Phys: Pito Hayden MD Acct: [id number] Dis Date: Status: REG ER PHONE #: Exam Date: 10/26/2018 1642 FAX #: [phone] Reason: chest pain EXAMS: CPT CODE: [id number] XR CHEST 1 V 10004 (Continued) Orig Print D/T: S: 10/26/2018 (3141) PAGE 2 Signed ReportTROPONIN I [id number] 16:45:00* Test Item Value Reference Range Interpretation Comme nts TROPONIN I RAPID (test code = TROPIRAP) 0.02 ng/mL 0.00-0.079 N ISTAT TROPONIN I CRITERIA0.00-0.08 ng/mL - Negative>0.08 ng/mL - Positive The use of serial sampling and testing protocol is arecommended practice.An elevated troponin level alone is often not sufficient fordiagnosis of myocardial infarction. Troponin results obtained by different assays may vary.Evaluation of the extent of myocardial damage based onincrease of troponin would be valid only if similarmethodology is used. CBC W/AUTO [id number] 16:34:00* Test Item Value Reference Range Interpretation Comme nts WHITE BLOOD CELL (test code = WBC) 8.1 x10 3/uL 5.0-12.0 N RED BLOOD CELL (test code = RBC) 4.25 x10 6/uL 4.70-6.10 L HEMOGLOBIN (test code = HGB) 13.5 g/dL 14.0-18.0 L HEMATOCRIT (test code = HCT) 38.7 % 37.0-49.0 N MEAN CELL VOLUME (test code = MCV) 91 fL 80-94 N MEAN CELL HGB (test code = MCH) 31.8 pg 27-31 H MEAN CELL HGB CONCENTRATION (test code = MCHC) 34.9 g/dL 33-37 N RED CELL DISTRIBUTION WIDTH (test code = RDW) 13.0 % 11.5-15.5 N PLATELET COUNT (test code = PLT) 189 x10 3/uL 130-400 N MEAN PLATELET VOLUME (test c ode = MPV) 10.0 fL 9.4-16.4 N NEUTROPHIL % (test code = NT%) 71.2 % 43-65 H IMMATURE GRANULOCYTE % (test code = IG%) 0.2 % 0.0-2.0 N LYMPHOCYTE % (test code = LY%) 21.0 % 20.5-45.5 N MONOCYTE % (test code = MO%) 5.3 % 5.5-11.7 L EOSINOPHIL % (test code = EO%) 1.6 % 0.9-2.9 N BASOPHIL % (test code = BA%) 0.7 % 0.2-1.0 N NUCLEATED RBC % (test code = NRBC%) 0.0 % 0-1.0 N NEUTROPHIL # (test code = NT#) 5.74 x10 3/uL 2.2-4.8 H IMMATURE GRANULOCYTE # (test code = IG#) 0.02 x10 3/uL 0-0.03 N LYMPHOCYTE # (test code = LY#) 1.70 x10 3/uL 1.3-2.9 N MONOCYTE # (test code = MO#) 0.43 x10 3/uL 0.3-0.8 N EOSINOPHIL # (test code = EO#) 0.13 x10 3/uL 0.0-0.2 N BASOPHIL # (test code = BA#) 0.06 x10 3/uL 0.0-0.1 N History and Physical Notes Date/Time Note Provider Source 2022-09-26 00:55:00 Joesph Raymundo MD: MODIFY, PERFORMEvent Display: History and PhysicalAuthored Date: [id number] and Physical Primary Team Name:Team Contact Info:PCP Contact info:Family contact info: Code Status: Full Resuscitation Chief Complaint: Sent by PCP Dr. Deandre Bradshaw for dizziness, dehydration, tachycardia, and has not been able to eat or drink in a month. Pt c/o BL knee pain, hurts to walk. PMH: DM, CHF, HTN. BS 204. Sepeis activation per JONO Vergara History of Present Illness: The patient is 72-year-old Dutch-speaking man with a past medical history of pneumonia and pancreatic disease who presents with generalized pain and cough. Patient states has been having worsening cough for the last 2 months. He reports he is positioning a whitish-yellowish sputum. He does not report history of fever or chills. He reports significant weight loss of approximately 80 pounds within the last few months. Of note patient was treated in [place] for a pneumonia, but is unclear of the details. He also reports history of unspecified pancreatic disease requiring abdominal surgery. He denies history of smoking. 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 He saturating well on room air. Admission labs notable for hyperglycemia, hypoalbuminemia, transaminitis, with elevated alkaline phosphatase, lactic acidosis, leukocytosis and hyperglycemia. Chest x-ray shows opacification of the left upper lobe. Review of Systems: Decreased appetite, decreased hunger Problem List/Past Medical History: Ongoing No qualifying data Social History: Electronic Cigarette/Vaping Electronic Cigarette Use: Never. Tobacco Use: Never smoker. Tobacco smoke exposure: None. Did the Patient Smoke Cigarettes Anytime During the Last 365 Days? No. Cessation Counseling Provided? No. Allergies: No Known Allergies Home Medications: No active home medications Physical Exam: Vitals and Measurements T: 98.8 F (Oral) HR: 87 (Peripheral) RR: 20 BP: 168/127 SpO2: 94% WT: 101.847 kg BMI: 28.83 Gen: Awake and alert. In no acute distressHead: Normocephalic and atraumaticEyes: Extraocular muscle movements intact, no scleral icterusNares: Patent, no obvious signs of crusting,Throat: Trachea appears midline, no obvious JVDCardio: Regular rate and rhythm, palpable radial pulsesResp: normal bilateral rise and fall of chest, no obvious signs of wheezing or rhonchiAbdomen: Ventral surgical incision site, BS+, soft, Nontender, distended, scaphoid abdomen, obese habitusMusculoskeletal: , left knee swelling, tender to palpationNeurology: Alert to person, place and time. Speech is clear. No focal deficitsSkin: Warm, chronic venous stasis, Pertinent Labs: LabsA/G Ratio: 0.5 Low (09/18/22 18:15:00)AGAP: 6.5 mEq/L Low (09/18/22 18:15:00)Albumin Lvl: 2.8 g/dL Low (09/18/22 18:15:00)Alk Phos: 144 unit/L High (09/18/22 18:15:00)ALT: 30 unit/L (09/18/22 18:15:00)AST: 51 unit/L High (09/18/22 18:15:00)B/C Ratio: 9 (09/18/22 18:15:00)Basophils: 0.3 % (09/18/22 18:15:00)Bili Total: 1.1 mg/dL (09/18/22 18:15:00)BNP: 24 pg/mL (09/18/22 18:15:00)BUN: 10 mg/dL (09/18/22 18:15:00)Calcium Lvl: 9 mg/dL (09/18/22 18:15:00)Chloride Lvl: 106 mEq/L (09/18/22 18:15:00)CO2: 26 mEq/L (09/18/22 18:15:00)Coronavirus (COVID-19) MARK: Not Detected (09/18/22 19:25:00)Creatinine Lvl: 1.1 mg/dL (09/18/22 18:15:00)eGFR: 70 mL/min/1.73m2 (09/18/22 18:15:00)Eosinophils: 1 % (09/18/22 18:15:00)Eosinophils #: 0.1 K/CMM (09/18/22 18:15:00)Globulin: 5.4 g/dL High (09/18/22 18:15:00)Gluc POC Comment 1: Notified RN/MD (09/18/22 17:30:00)Glucose Lvl: 186 mg/dL High (09/18/22 18:15:00)Glucose POC: 204 mg/dL High (09/18/22 17:30:00)Hct: 38.8 % Low (09/18/22 18:15:00)Hgb: 13.4 g/dL Low (09/18/22 18:15:00)HS Troponin I: 6 pg/mL (09/18/22 18:15:00)INR: 1.7 High (09/18/22 18:15:00)Lactic Acid Lvl: 1 mMol/L (09/19/22 02:06:00)Lipase Lvl: 153 unit/L High (09/18/22 18:15:00)Lymphocytes: 15.2 % Low (09/18/22 18:15:00)Lymphocytes #: 1.7 K/CMM (09/18/22 18:15:00)MCH: 31.6 pg High (09/18/22 18:15:00)MCHC: 34.5 g/dL (09/18/22 18:15:00)MCV: 91.6 fL (09/18/22 18:15:00)Monocytes: 8.6 % (09/18/22 18:15:00)Monocytes #: 1 K/CMM High (09/18/22 18:15:00)MPV: 8.2 fL (09/18/22 18:15:00)Neutrophils #: 8.3 K/CMM High (09/18/22 18:15:00)Platelet: 324 K/CMM (09/18/22 18:15:00)POC Performing Location: See Note (09/18/22 17:30:00)Potassium Lvl: 3.5 mEq/L (09/18/22 18:15:00)Procalcitonin Lvl: 0.11 ng/mL High (09/18/22 18:15:00)PT: 20 seconds High (09/18/22 18:15:00)PTT: 32.3 seconds (09/18/22 18:15:00)RBC: 4.24 M/CMM Low (09/18/22 18:15:00)RDW: 14.2 % (09/18/22 18:15:00)Segs: 74.9 % (09/18/22 18:15:00)Sodium Lvl: 135 mEq/L (09/18/22 18:15:00)Total CK: 161 unit/L (09/18/22 18:15:00)Total Protein: 8.2 g/dL (09/18/22 18:15:00)UA Ascorbic Acid: NEG (09/18/22 20:54:00)UA Bili: NEG (09/18/22 20:54:00)UA Blood: NEG (09/18/22 20:54:00)UA Color: cYellow (09/18/22 20:54:00)UA Glucose: NEG (09/18/22 20:54:00)UA Hyal Cast: 4 /LPF High (09/18/22 20:54:00)UA Ketones: Negative (09/18/22 20:54:00)UA Leuk Est: NEG (09/18/22 20:54:00)UA Mucus: cFew (09/18/22 20:54:00)UA Nitrite: NEG (09/18/22 20:54:00)UA pH: 7 (09/18/22 20:54:00)UA Protein: NEG (09/18/22 20:54:00)UA RBC: UA Spec Grav: 1.011 (09/18/22 20:54:00)UA Sq Epi: None Seen (09/18/22 20:54:00)UA Turbidity: Clear (09/18/22 20:54:00)UA Urobilinogen: UA WBC: 3 /HPF (09/18/22 20:54:00)WBC: 11.1 K/CMM High (09/18/22 18:15:00) Pertinent Imaging: Chest CTA pulm emb 09/18/22 23:46:11IMPRESSION:Cavitary left upper lobe pneumonia. Follow-up to radiographic resolution isrecommended to exclude malignancy. Bilateral lower lobe, right upper lobe, and right middle lobe reticularopacities primarily represent atelectasis. Concurrent pneumonia is howeverdifficult to exclude. Cirrhosis. 1.6 cm indeterminate right hepatic lobe hypodensity is poorlycharacterized. Nonemergent MRI of the liver with IV contrast is recommended toexclude hepatocellular carcinoma. T4 and T5 superior endplate compression deformities demonstrate less than 25%height loss and no osseous retropulsion. Fractures are age indeterminate. MRIis best for assessing the acuity of these fractures. Quoc Thompson MD On 09/18/2022 23:44:41; [id number] Signed By: Quoc Thompson MD Assessment/Plan: 1. Cavitary pneumonia (J18.9) Follow daily CBCs and CMP'sFollow-up AFB cultures x2, follow-up PCRIsolation precautions for TBConsider histoplasma, Cryptosporidium or histoplasmosis testingFollow-up sputum cultureContinue ceftriaxone and azithromycinConsider adding anaerobic coverage or switching to UnasynAspiration precautionFollow-up consultation with infectious disease servicesConsider consultation with pulmonary service for suspected malignancy Ordered: Admit/Condition, 09/18/22 22:22:00 CDT, Status: Inpatient, Acute, Expected LOS: 2 Midnights, Joesph Raymundo MD, Ismael ANGELES Review/Approve Yes, Acute dyspnea | Pneumonia involving left lung | Acute dehydration 2. Acute dyspnea (R06.00) Currently breathing well on room airContinue to closely monitor Ordered: Admit/Condition, 09/18/22 22:22:00 CDT, Status: Inpatient, Acute, Expected LOS: 2 Midnights, Joesph Raymundo MD, Ismael ANGELES Review/Approve Yes, Acute dyspnea | Pneumonia involving left lung | Acute dehydration 3. Acute dehydration (E86.0) Continue IV fluids Ordered: Admit/Condition, 09/18/22 22:22:00 CDT, Status: Inpatient, Acute, Expected LOS: 2 Midnights, Joesph Raymundo MD, Admit MD Review/Approve Yes, Acute dyspnea | Pneumonia involving left lung | Acute dehydration 4. Pancreatic disease (K86.9) Elevated lipase, unclear etiology possibly has ongoing chronic pancreatitis versus unspecified illnessConsider obtaining CT scan of the abdomen pelvis given history of persistent nausea and vomiting 5. Liver cirrhosis (K74.60) Currently compensated 6. Hepatic lesion (K76.9) Consider nonemergent MRI or liver ultrasound 7. Malnutrition (E46) Suspected malnutrition given reported history of weight lossConsult to nutrition services Disposition Inpatient statusJoesph Raymundo MDElectronically Signed: 09/19/22 23:39 [facility] Notes Date/Time Note Provider Source 2024-08-17 23:04:00 [id number] [facility] [address] [place] [address] PATIENT NAME: SEYMOUR SNOW ADMIT DATE: 07/31/24 ACCOUNT NO: [id number] ROOM NO: [place] [address] AGE: 74 REPORT TYPE: 360 - QUERY RESPONSE DOCUMENT SEX: M ADMITTING PHYSICIAN:Vanessa Nur MD ATTENDING PHYSICIAN:Vanessa Nur MD Provider Query QUERY TEXT: Condition General 360MD Query related questions should be directed to: [facility] Coding Query Hotline Based on your medical judgement and above mentioned clinical indicators, kindly clarify the diagnosis of sepsis as, Sepsis confirmed diagnosis, Possible sepsis, Sepsis ruled out, Other more appropriate diagnosis The patient's Clinical Indicators include: Severe sepsis- ED notes on 07/31/24 Pulse 84 07/31 1242-ED notes on 07/31/24 WBC (5.0 - 12.0 x10 3/uL) 4.2 L- LAB First interphalangeal joint effusion which may relate to septic arthritis- Infectious Dis. Progress Note 08/08/2024 Cellulitis, right foot.-Podiatry Progress Note 08/08/2024 BC no growth after 5 days-LAB cefTRIAXone 1,000 mg Inj-mar Options provided: -- Respond - Create new note now -- Disagree - Not applicable / Not valid -- Disagree - Clinically unable to determine / Unknown -- Assign to another provider QUERY RESPONSE: Provider dismissed this query because it was not applicable to the patient or not a valid query. not sepsis Query created by: Katina Abbott on 08/11/2024 5:02 AM at 2304 PATIENT NAME: SEYMOUR SNOW [facility] 2024-08-17 11:06:00 [id number] [facility] [address] [place] [address] PATIENT NAME: SEYMOUR SNOW ADMIT DATE: 08/10/24 ACCOUNT NO: [id number] ROOM NO: C.[address]T AGE: 74 REPORT TYPE: 360 - QUERY RESPONSE DOCUMENT SEX: M ADMITTING PHYSICIAN:Mary Rojas MD ATTENDING PHYSICIAN:Mary Rojas MD Provider Query QUERY TEXT: Relationship Procedure Condition 360MD Query related questions should be directed to: [facility] Coding Query Help-line Please clarify the etiology of the diagnosis Cellulitis of right foot and its relationship, if any, to the procedure S/p right great toe amputation The classification system provides these guidelines for intraoperative and/or post procedure conditions/diagnoses: -- Not all post procedure conditions are classified as complications. - There must be an unexpected or abnormal occurrence. - There must be a documented cause and effect relationship between the condition and the care. - There must be an indication that it is a complication -- The term ''complication'' as used in ICD-10-CM does not imply that improper or inadequate care is responsible for the problem -- There is no time limit for development of complication -- The term postoperative requires clarity to determine if it is a complication or condition resulting from medical/surgical care that is a residual condition of the procedure. -- When laceration/tear/enterotomy occurs during a procedure, the physician must provide clarity as to whether the tear was an incidental occurrence inherent to the procedure or clinically significant (complication). -- When hemorrhage occurs with procedure, clarify if it is expected or unexpected as well as abnormal amount of blood loss and the organ or tissue structure involved (i.e., subcutaneous, fascia, specific organ, specific artery/vein, etc.). The patient's Clinical Indicators include: Cellulitis of right foot -ED PHYSICIAN RECORD 08/10/2024 -S/p Rt hallux amputation on 08/07 -Hospitalist History Physical 08/10/2024 but not limited to cellulitis of surgical site versus infectious process versus abscess versus neuropathy versus pain status post surgery.- ED PHYSICIAN RECORD 08/10/2024 (2) recent right first toe amputation 3 days ago, presented to the ED comaplining of Rt foot pain and swelling since surgery, also reported abdominal pain. Hospitalist Progress Note 08/14/2024 (2) -S/p Rt hallux amputation on 08/07- Hospitalist Progress Note 08/14/2024 (2) Vancomycin 1,000 mg Inj Piperacillin/Tazo 3.375 GM Inj cefTRIAXone 2 GM Inj - MAR Options provided: -- Routine, inherent or integral -- Unexpected or abnormal -- Unrelated, Please specify the cause if known. -- Other - I will add my own diagnosis -- Disagree - Not applicable / Not valid -- Disagree - Clinically unable to determine / Unknown -- Assign to another provider QUERY RESPONSE: This was an unexpected or abnormal occurrence of the procedure (complication). Query created by: Nhan Pittman on 08/17/2024 8:26 AM at 1106 PATIENT NAME: SEYMOUR SNOW [facility] 2024-08-15 08:13:00 [id number] [facility] [address] [facility] [place] [address] PATIENT NAME: SEYMOUR SNOW ADMIT DATE: 08/10/24 ACCOUNT NO: [id number] ROOM NO: C.401T AGE: 74 REPORT TYPE: eECHOCARDIOGRAM REPORT. SEX: M ADMITTING PHYSICIAN:Mary Rojas MD ATTENDING [place]YSIC[place] [address] [place] [address] Transthoracic Echocardiogram Patient: Seymour Snow Study Date: 08/14/2024 BP: 164 / 96 URN: [id number] Location: : 1950 Age: 74 Gender: M Height: 74 in / 188 cm Weight: 250 lb / 113.4 kg BMI/BSA: 32.1 kg/m 2 / 2.46 m 2 *Ordering Physician: * Sophie Martinez *Interpreting Physician: * Maurice Darnell MD *Needle Polisher: Keren Romero ---- Indications: SOB. ---- Study data: Transthoracic echocardiogram. Procedure: A transthoracic echocardiogram was performed. Images were obtained using a Idea VillageIVD S70N cardiac ultrasound machine. Complete 2D, complete spectral Doppler, and color Doppler. Location: Bedside. Patient status: Inpatient. Patient room number: 401. Study status: Routine. ---- Findings Left ventricle: The cavity size is normal. Wall thickness is normal. Systolic function is normal. The estimated ejection fraction is 60-64%. Wall motion is normal; there are no regional wall motion abnormalities. Left ventricular diastolic function parameters are normal. Right ventricle: The cavity size is normal. Systolic function is normal. PATIENT NAME: JAYLA SEYMOUR SARAH Left atrium: The atrium is normal in size. Right atrium: The atrium is normal in size. Aorta: Aortic root: The root is normal-sized. Aortic valve: The valve is trileaflet. The leaflets are mildly thickened and mildly calcified. The findings are consistent with mild stenosis. Peak AV velocity 2.9 m/s, mean gradient 19 mmHg, and calculated ELVER 1.6 cm 2 There is no regurgitation. Mitral valve: The valve is structurally normal. There is no evidence of stenosis. There is no regurgitation. Tricuspid valve: The valve is structurally normal. There is trace regurgitation. Pulmonic valve: The valve is structurally normal. There is no regurgitation. Pericardium: There is no pericardial effusion. Pulmonary arteries: The main pulmonary artery is normal-sized. Systemic veins: Inferior vena cava: The IVC is normal-sized. ---- Measurements Left ventricle Value Ref 10/02/2022 FALGUNI, LAX 5.5 cm 4.2 - 5.8 5.8 ESD, LAX 3.7 cm 2.5 - 4.0 4.2 FS, LAX 33 % 25 - 43 28 IVS, ED 1.0 cm 0.6 - 1.0 1.1 PW, ED 1.1 cm 0.6 - 1.0 1.2 IVS/PW, ED 0.94 --------- 0.87 LVOT Value Ref 10/02/2022 Diam, S 2.30 cm --------- Area 4.2 cm 2 --------- 5.3 Peak evelyn, S 0.94 m/sec --------- 0.73 Mean evelyn, S 0.53 m/sec --------- 0.52 VTI, S 21.8 cm --------- 17.1 Mean grad, S 1 mm Hg --------- 1 SV 91 ml --------- 90 Qs 6.17 L/min --------- Qs/bsa 2.5 L/(min-m 2) --------- SV/bsa 37 ml/m 2 --------- 39 Right ventricle Value Ref 10/02/2022 FALGUNI, LAX 4.2 cm --------- 4.0 Left atrium Value Ref 10/02/2022 AP dim, ES 3.9 cm 3.0 - 4.0 3.7 Aortic valve Value Ref 10/02/2022 Peak v, S 2.9 m/sec --------- 2.5 Mean v, S 2.1 m/sec --------- 1.76 VTI, S 64.0 cm --------- 49.7 Mean grad, S 19 mm Hg --------- 14 Peak grad, S 33.6 mm Hg --------- 25.8 LVOT/AV, VTI ratio 0.39 --------- 0.34 PATIENT NAME: JAYLA MAINSEYMOUR VELASQUEZ ELVER, VTI 1.63 cm 2 --------- 2.04 LVOT/AV, Vpeak ratio 0.34 --------- 0.29 ELVER, Vmax 1.42 cm 2 --------- 1.64 Mitral valve Value Ref 10/02/2022 Peak E 0.53 m/sec --------- 0.48 Peak A 0.81 m/sec --------- 1.01 Decel time 237 ms --------- 327 Peak E/A ratio 0.65 --------- peak v 2.77 m/sec --------- Tricuspid valve Value Ref 10/02/2022 TR peak v 2.4 m/sec <=2.8 2.9 Peak RV-RA grad, S 23 mm Hg --------- 34 Aortic root Value Ref 10/02/2022 Root diam 3.2 cm 3.0 - 4.5 Ascending aorta Value Ref 10/02/2022 AAo AP diam, S 3.6 cm --------- ---- Conclusions Summary: 1. Left ventricle: The cavity size is normal. Wall thickness is normal. Systolic function is normal. The estimated ejection fraction is 60-64%. Wall motion is normal; there are no regional wall motion abnormalities. Left ventricular diastolic function parameters are normal. 2. Aortic valve: The valve is trileaflet. The leaflets are mildly thickened and mildly calcified. The findings are consistent with mild stenosis. Peak AV velocity 2.9 m/s, mean gradient 19 mmHg, and calculated ELVER 1.6 cm 2 3. Tricuspid valve: There is trace regurgitation. 4. Estimated PA systolic pressure is 28 mmHg, assuming a mean RAP of 5 mmHg. Electronically signed by Maurice Darnell MD 08/15/2024 08:13 at 0813 PATIENT NAME: JAYLA SARAHSEYMOUR [facility] 2024-08-14 11:30:00 ([facility] Discharge Summary REPORT#:[id number] REPORT STATUS: Signed REPORT INITIALIZATION DATE:08/14/24 TIME: 1130 PATIENT: JAYLA SARAHSEYMOUR UNIT #: [id number] ROOM/BED: [address] : [birth year] AGE: 74 SEX: M ATTEND: Mary Rojas MD ADM AUTHOR: Mary Rojas MD REPT SERVICE DT/TIME: 08/14/24 1130 * ALL edits or amendments must be made on the electronic/computer document * General Information Discharge date: 08/14/24 Discharge diagnosis: see below Hospital course: Patient was admitted to [facility] with following diagnosis as outlined below. Patient s condition markedly improved with management provided during hospitalization. Please refer to daily progress notes in chart for specific details. Pulmonology,podiatry,hematology/oncol ogy,GI were consulted and their recommendations were closely followed. Patient is medically stabilized and discharged in stable condition. Progress note for today is documented separately. Total time spent in discharge activities of this patient is more than 36 minutes. Strong ER precautions given today and patient verbalized understanding of discharge instructions. 74-year-old male with PMH of HTN, HLD, DM, Afib, and recent right first toe amputation 3 days ago, presented to the ED comaplining of Rt foot pain and swelling since surgery, also reported abdominal pain. #Rt foot pain -Hx of osteomyelitis the head of the great toe -S/p Rt hallux amputation on 08/07 -Obtain Bcx and wound cx -Start IV ceftriaxone and vancomycin -Consult podiatry,they sign off #PNA on iv abx #LUNG nodule per pulm ct noted #Abdominal pain Hypodensity of the left liver lobe Hypodensity at the tail the pancreas Isolated left intrahepatic biliary dilatation -CT A/p New 2.5 cm hypodensity of the left liver lobe, indeterminate. Suspect associated isolated left intrahepatic biliary dilatation. Differential includes malignancy. Further evaluation can be obtained with liver protocol cross- sectional MRI imaging. Nodular liver contour with enlargement of the left liver lobe, correlate clinically for cirrhosis. 0.9 cm hypodensity at the tail the pancreas. May reflect a pancreatic cyst or IPMN. -Obtain MRI abdomen -Monitor LFT -GI consult #hypomagnesemia replaced #liver mass -Abd MRI show 2.5cm focal lateral left lobe may reflect mass, small cystic pancreatic lesion -CT chest with contrast show 6mm right middle lobe nodule -Patient has a history of cigarette smoking and alcohol use -heptitis panel,AFP pending HTN -resume Coreg HLD -Statin DM -SSI -Monitor Afib -resuem ELiquis and Coreg -tele dvt ppx:eliquis dispo:home spoke with yolande verduzco for dc HCC work up can be done outpt podiatry and GI already signed off spoke with his son on phone,explained all w/u details Med Rec PCP PCP: PCP: Seth Lin MD Med Rec Discharge meds: Stop taking the following medications: LOPERAMIDE (IMODIUM) 2 MG CAP 2 MILLIGRAM ORAL TWICE DAILY NEEDED. as needed for DIARRHEA Qty = 30 MAGNESIUM OXIDE (MAG-OXIDE) 400 MG TAB 400 MILLIGRAM ORAL THREE TIMES A DAY. Qty = 30 Continue taking these medications: ACETAMINOPHEN (TYLENOL) 325 MG TAB 650 MILLIGRAM ORAL EVERY 8 HOURS. as needed for pain Days = 30 BISACODYL EC (DULCOLAX EC) 5 MG TAB.DR 10 MILLIGRAM ORAL DAILY NEEDED. as needed for CONSTIPATION Days = 30 FAMOTIDINE (PEPCID) 20 MG TAB 20 MILLIGRAM ORAL TWICE DAILY. Qty = 60 carvediloL (carvediloL) 3.125 MG TAB 3.125 MILLIGRAM ORAL TWICE DAILY. metFORMIN (GLUCOPHAGE) 1,000 MG TAB 1,000 MILLIGRAM ORAL TWICE DAILY. Instructions: TAKE WITH MEALS ATORVASTATIN (LIPITOR) 40 MG TAB 40 MILLIGRAM ORAL DAILY. Comments: TAKE 1 TABLET BY MOUTH ONCE DAILY; #90 - SIG Obtained From Guy PYRIDOXINE (VITAMIN B-6) 50 MG TAB 50 MILLIGRAM ORAL DAILY. LOSARTAN (COZAAR) 50 MG TAB 50 MILLIGRAM ORAL DAILY. PROMETHAZINE (PHENERGAN) 12.5 MG TAB 12.5 MILLIGRAM ORAL TWICE DAILY. Qty = 60 BUDESONIDE (PULMICORT) 0.5 MG/2 ML NEB 0.25 MILLIGRAM INHALATION RT - TWICE DAILY. Qty = 2 APIXABAN (ELIQUIS) 5 MG TAB 5 MILLIGRAM ORAL TWICE DAILY. Days = 30 Qty = 60 DOXYCYCLINE HYCLATE (VIBRAMYCIN) 100 MG CAP 100 MILLIGRAM ORAL EVERY 12 HOURS. Days = 14 Qty = 28 This prescription has been renewed Start taking the following new medications: AMOXICILLIN/CLAV K (AUGMENTIN 500/125 MG) 500 MG-125 MG TAB 500 MILLIGRAM ORAL EVERY 12 HOURS. Qty = 14 No Refills MAGNESIUM OXIDE (MAGNESIUM OXIDE) 500 MG TAB 500 MILLIGRAM ORAL DAILY. Qty = 14 No Refills guaiFENesin ER (MUCINEX) 600 MG TAB.SA 600 MILLIGRAM ORAL EVERY 12 HR NEEDED. as needed for COUGH Qty = 20 No Refills Instructions: FOR CONGESTION ACETAMINOPHEN/CODEINE (TYLENOL WITH CODEINE #3 300/30 MG) 300 MG-30 MG TAB 1 TABLET ORAL THREE TIMES A DAY. as needed for SEVERE PAIN Qty = 10 No Refills Objective VS/I O Last Documented: Result Date Time Pulse Ox 93 08/14 1539 B/P 161/88 08/14 1539 B/P Mean 112.4 08/14 1539 Temp 98.6 08/14 1539 Pulse 70 08/14 1539 Resp 17 08/14 1539 O2 Delivery Room air 08/14 1244 FiO2 21 08/13 1003 O2 Flow Rate 2 08/12 1722 PATIENT WEIGHT: Weight (lb): 250 Weight (oz): 8.39 Weight (kg): 113.636 General appearance: alert, awake, oriented Respiratory: no distress, no tenderness, aerating well, symmetric expansion Discharge Instructions PCP )( Discharge to: Home/Self Care Discharge Instructions Additional Discharge Routines: PCP Follow-Up, Client Liaison Follow-Up )( Diet: Resume Home Diet/Feeds )( Activity: As Tolerated Follow-up Appointments PCP follow up: PCP: Seth Lin MD PCP follow up timeframe: In 2-3 weeks Special instructions: repeat cbc,cmp Consulting provider 1: Provider 1: Sonam Swanson DPM Specialty: Podiatry Consult follow up timeframe: In 2-3 weeks Special instructions: F/U HOSPITALIZATION Consulting provider 2: Provider 2: Manasa Dimas MD Follow up timeframe: In 3-4 weeks Special instructions: LUNG NODULE Consulting provider 3: Provider 3: Jonathon Leigh MD Specialty: Gastroenterology Follow up timeframe: In 2-3 weeks Special instructions: F/U HOSPITALIZATION Consulting provider 4: Provider 4: Eric Bashir MD Specialty: Medical Oncology Follow up timeframe: In 1-2 weeks Special instructions: OUTPT WORK UP FOR POSSIBLE HCC at 1153 RPT #:[id number] END OF REPORT [facility] 2024-08-14 09:12:00 [facility] Podiatry Progress Note REPORT#:[id number] REPORT STATUS: Signed REPORT INITIALIZATION DATE:08/14/24 TIME: 911 PATIENT: SEYMOUR SNOW UNIT #: [id number] ROOM/BED: [address] : [address] AGE: 74 SEX: M ATTEND: Mary Rojas MD ADM AUTHOR: Twyla Crane DPM R1 REPT SERVICE DT/TIME: 08/14/24 0912 * ALL edits or amendments must be made on the electronic/computer document * Subjective HPI: patient seen at bedside Objective Physical Exam Wound/incision: Location: RIGHT LOWER EXTREMITY FOCUSED PHYSICAL EXAM: VASCULAR: DP/PT pulses nonpalpable, less than 3 seconds capillary refill time, temperature gradient cool to warm distal to proximal. Mild edema. DERMATOLOGIC: sutures intact, skin edges well approximated, no signs of masceration, no gangrenous changes MUSCULOSKELETAL: Muscle strength testing, deferred. Positive pain to palpation. Mild equinus. NEUROLOGIC: Gross epicritic sensation diminished for light touch and proprioception. Diagnosis, Assessment Plan Free Text A P: ASSESSMENT: 1. Status post hallux amputation,right foot. 2. Cellulitis, right foot. 3. Type 2 diabetes mellitus with peripheral neuropathy. 4. Peripheral arterial disease. PLAN: 1. The patient was evaluated and examined at bedside. All questions and concerns from the patient addressed to the patient's satisfaction. 2. Reviewed labs and vital signs. 3. Reviewed imaging: no OM 6. Reviewed arterial Doppler, showing monophasic flow in the foot arteries Patient is cleared from the podiatry standpoint. Patient is to keep dressings clean dry intact. Patient is to be weightbearing as tolerated to the right foot. Patient's follow-up outpatient with Dr. Swanson. Will continue to follow while in house. Plan discussed with Dr. Swanson at 1029 at 2128 RPT #:[id number] END OF REPORT [facility] 2024-08-14 08:42:00 ([facility] Hospitalist Progress Note REPORT#:[id number] REPORT STATUS: Signed REPORT INITIALIZATION DATE:08/14/24 TIME: 08 PATIENT: SEYMOUR SNOW UNIT #: [id number] ROOM/BED: [address] : [address] AGE: 74 SEX: M ATTEND: Mary Rojas MD ADM AUTHOR: Mary Rojas MD REPT SERVICE DT/TIME: 08/14/24 08 * ALL edits or amendments must be made on the electronic/computer document * Subjective Chief complaint: pt seen today he is feeling better HPI: Review of Systems All systems rev neg: except as noted Free Text ROS Notes Free Text ROS Notes: Negtaive except for above Objective General VS/I O: Vital Signs: Date Time Temp Pulse Resp B/P B/P Pulse O2 O2 Flow FiO2 Mean Ox Delivery Rate 08/14 0709 98.2 72 16 164/96 118.5 96 Room air 08/14 0519 97.7 74 17 137/79 98.1 92 Room air 08/13 2357 97.7 70 17 134/72 92.8 93 Room air 08/13 1935 97.7 68 18 156/96 116.1 94 Room air 08/13 1658 98.1 69 19 148/84 105.4 93 Room air 08/13 1233 98.2 68 19 157/89 111.5 92 Room air 24 hour I O ending at 0700: 08/14 0700 08/13 1900 Intake Total Output Total 300 Balance -300 Number Voids 1 Output, Urine 300 PATIENT WEIGHT: Weight (lb): 250 Weight (oz): 8.39 Weight (kg): 113.636 Medications: Active Meds + DC'd Last 24 Hrs Sucralfate (CARAFATE) 1 GM ONCE ONE PO (DC) Morphine Sulfate (morphine) 1 MG Q4H PRN PRN IV Tramadol HCl (ULTRAM) 50 MG Q6H PRN PRN PO Potassium Chloride (K-DUR) 40 MEQ ONCE ONE PO (DC) Perflutren Lipid Microsphere (DEFINITY) DIRECTED ONCE PRN IV Sodium Chloride (NACL 0.9% 10ML SYRINGE) DIRECTED ONCE PRN IV Sodium Chloride (SODIUM CHLORIDE FLUSH) 5 ML ONCE PRN IV Potassium Chloride (K-DUR) 40 MEQ ONCE ONE PO (DC) Magnesium Sulfate (MAGNESIUM SULFATE 4GM) 100 ML ONCE ONE IV (DC) Apixaban (ELIQUIS) 5 MG BID PO Atorvastatin Calcium (LIPITOR) 40 MG DAILY PO Carvedilol (COREG) 3.125 MG BID PO Ceftriaxone Sodium (ROCEPHIN) 2 GM DAILY IV Sterile Water (WATER,STERILE INJ. ) 20 ML Vancomycin HCl (VANCOCIN) 1,000 MG Q12HR IV Sodium Chloride (SODIUM CHLORIDE 0.9%) 250 ML Insulin Human Lispro (Admelog) Low Dose Sliding Scale: *See ADMIN CRIT for DOSE* AC HS SUBQ Dextrose/Water (DEXTROSE 50% SYR) 25 ML ASDIR PRN IV (CKD) Glucagon (GLUCAGON) 1 MG ASDIR PRN IM Acetaminophen (TYLENOL REGULAR) 650 MG Q6H PRN PRN PO Hydralazine HCl (APRESOLINE) 10 MG Q6H PRN PRN IV Miscellaneous Information (VANCOMYCIN PHARMACY TO DOSE) 1 EACH ASDIR IV (CKD) Naloxone HCl (NARCAN) 0.4 MG Q2M PRN PRN IV Ondansetron HCl (ZOFRAN 4 MG/2 ML INJ) 4 MG Q4H PRN PRN IV Physical Exam General appearance: alert, awake, oriented Head/Eyes: atraumatic Results Findings/Data: Laboratory Tests 08/14 08/14 08/14 08/13 08/13 0518 0344 5168 3 1933 Chemistry Sodium (136 - 145 mmol/L) 139 Potassium (3.5 - 5.1 mmol/L) 3.8 Chloride (98 - 107 mmol/L) 103 Carbon Dioxide (20.0 - 31.0 mmol/L) 28.0 Anion Gap (10 - 20 mmol/L) 12 BUN (9 - 23 mg/dL) 6 L Creatinine (0.55 - 1.30 mg/dL) 0.84 Glomerular Filtr Rate (mL/min) 90 Glucose (74 - 106 mg/dL) 100 POC Glucose (74 - 106 MG/DL) 170 H 143 H Calcium (8.7 - 10.4 mg/dL) 8.9 Magnesium (1.6 - 2.6 mg/dL) 1.2 L Total Bilirubin (0.20 - 1.10 mg/dL) 1.20 H Conjugated Bilirubin (0.1 - 0.3 mg/dL) 0.5 H Unconjugated Bilirubin (0 - 1.1 mg/dL) 0.70 AST (0 - 33 U/L) 35 H ALT (10 - 49 U/L) 15 Total Alk Phosphatase (46 - 116 U/L) 102 Total Protein (5.7 - 8.2 g/dL) 6.5 Albumin (3.4 - 5.0 g/dL) 3.4 Carcinoembryonic Ag (0.0 - 2.9 ng/dL) 1.8 Specimen Hemolysis (0 - 3 Index/DL) 0 08/13 08/13 1655 1223 Chemistry POC Glucose (74 - 106 MG/DL) 197 H 112 H Laboratory Tests 08/14 0344 Hematology WBC (5.0 - 12.0 x10 3/uL) 6.4 RBC (4.70 - 6.10 x10 6/uL) 4.10 L Hgb (14.0 - 18.0 g/dL) 12.4 L Hct (37.0 - 49.0 %) 35.7 L MCV (80 - 94 fL) 87 MCH (27 - 31 pg) 30.2 MCHC (33 - 37 g/dL) 34.7 RDW (11.5 - 15.5 %) 13.5 Plt Count (130 - 400 x10 3/uL) 150 MPV (9.4 - 16.4 fL) 8.8 L Neut % (Auto) (43 - 65 %) 60.7 Lymph % (Auto) (20.5 - 45.5 %) 22.8 [place] % (Auto) (5.5 - 11.7 %) 11.3 Eos % (Auto) (0.9 - 2.9 %) 4.1 H Baso % (Auto) (0.2 - 1.0 %) 0.8 Neut # (Auto) (2.2 - 4.8 x10 3/uL) 3.87 Lymph # (Auto) (1.3 - 2.9 x10 3/uL) 1.45 [place] # (Auto) (0.3 - 0.8 x10 3/uL) 0.72 Eos # (Auto) (0.0 - 0.2 x10 3/uL) 0.26 H Baso # (Auto) (0.0 - 0.1 x10 3/uL) 0.05 Immature Gran % (0.0 - 2.0 %) 0.3 Nucleated RBC % (0 - 1.0 %) 0.0 Laboratory Tests 08/13 1402 Serology Hep Bs Antigen (NonReactive) NON-REACTIVE Hepatitis C Antibody (NEGATIVE) NON-REACTIVE Free Text Obj Notes Free Text Obj Notes: Physical Exam: Gen: No acute distress Neck: Supple, full range of motion Lungs: Normal breathing sounds CV: RRR, no murmur. Abdomen: Soft, nondistended, upper and middle abd tenderness MSK: Rt foot dressing noted Neuro: Alert Diagnosis, Assessment Plan Free Text DxA P Notes Free text DxA P notes: 74-year-old male with PMH of HTN, HLD, DM, Afib, and recent right first toe amputation 3 days ago, presented to the ED comaplining of Rt foot pain and swelling since surgery, also reported abdominal pain. #Rt foot pain -Hx of osteomyelitis the head of the great toe -S/p Rt hallux amputation on 08/07 -Obtain Bcx and wound cx -Start IV ceftriaxone and vancomycin -Consult podiatry,they sign off #PNA on iv abx #LUNG nodule per pulm ct noted #Abdominal pain Hypodensity of the left liver lobe Hypodensity at the tail the pancreas Isolated left intrahepatic biliary dilatation -CT A/p New 2.5 cm hypodensity of the left liver lobe, indeterminate. Suspect associated isolated left intrahepatic biliary dilatation. Differential includes malignancy. Further evaluation can be obtained with liver protocol cross- sectional MRI imaging. Nodular liver contour with enlargement of the left liver lobe, correlate clinically for cirrhosis. 0.9 cm hypodensity at the tail the pancreas. May reflect a pancreatic cyst or IPMN. -Obtain MRI abdomen -Monitor LFT -GI consult #hypomagnesemia replaced #liver mass -Abd MRI show 2.5cm focal lateral left lobe may reflect mass, small cystic pancreatic lesion -CT chest with contrast show 6mm right middle lobe nodule -Patient has a history of cigarette smoking and alcohol use -heptitis panel,AFP pending HTN -resume Coreg HLD -Statin DM -SSI -Monitor Afib -resuem ELiquis and Coreg -tele dvt ppx:eliquis dispo:home after echo spoke with dr franklin lopes HCC work up can be done outpt will try to reach pulm too if echo can be done outpt podiatry and GI already signed off at 1027 RPT #:[id number] END OF REPORT [facility] 2024-08-14 08:33:00 ([facility] Pulmonology Progress Note REPORT#:[id number] REPORT STATUS: Signed REPORT INITIALIZATION DATE:08/14/24 TIME: 832 PATIENT: SEYMOUR SNOW UNIT #: [id number] ROOM/BED: [address] : [address] AGE: 74 SEX: M ATTEND: Mary Rojas MD ADM AUTHOR: Sophie Martinez DO CF2 REPT SERVICE DT/TIME: 08/14/24 0833 * ALL edits or amendments must be made on the electronic/computer document * Subjective Chief complaint: R foot pain HPI: Mr. Jayla Sarah is a 74 year old male with past medical history of HTN, HLD , DM, paroxysmal a-fib, and recent admission for osteomyelitis s/p right great toe amputation on 08/06 who returned to [facility] on 08/10 for right foot pain and swelling. Pulmonology is now being consulted for pulmonary nodule. Patient returned to hospital for right foot pain and swelling, but also was c/o abdominal pain, nausea, and poor appetite. In work-up, he was found to have a new liver lesion suspicious for hepatocellular carcinoma and a pancreatitic tail cyst. CT chest showed a left upper lobe pneumonia and 6mm nodule in RML. Patient reports cough productive of white sputum and sometimes getting short of breath. He denies history of COPD, asthma, or any other lung disease. He never smoked. He has worked in various jobs and has previously worked with [employer]. Comments: No acute events overnight. Patient denies shortness of breath. States he is not coughing much but does have a lot of phlegm (clear-white in color). C/o nasuea, poor appetite, and abdominal bloating. Review of Systems ROS Constitutional: malaise. Denies: chills, fever. Respiratory: Reports: productive cough (sputum). Denies: SOB, wheezing. Cardiovascular: Denies: chest pain, edema. GI: Reports: abdominal pain, nausea. Denies: vomiting. Neuro: Denies: headache, lightheaded. Objective General VS/I O: Last Documented: Result Date Time Pulse Ox 96 08/14 708 B/P 164/96 08/14 708 B/P Mean 118.5 08/14 708 O2 Delivery Room air 08/14 708 Temp 98.2 08/14 708 Pulse 72 08/14 708 Resp 16 08/14 708 FiO2 21 08/13 1003 O2 Flow Rate 2 08/12 1722 24 hour I O ending at 0700: 08/14 0700 08/13 1900 Intake Total Output Total 300 Balance -300 Number Voids 1 Output, Urine 300 PATIENT WEIGHT: Weight (lb): 250 Weight (oz): 8.39 Weight (kg): 113.636 Physical Exam General appearance: alert, awake, oriented, no acute distress Head/eyes: atraumatic, normocephalic ENT: ENT: moist mucosal membranes Neck: non-tender, no JVD Cardiovascular: normal heart sounds, regular rate rhythm Respiratory/chest: aerating well, clear to auscultation, no distress Extremities: moves all, no edema Neuro/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: alert, oriented X 3 Results Findings/Data: Laboratory Tests 08/14/24 0344: [Embedded Image Not Available] Laboratory Tests 08/14 08/14 08/14 08/13 08/13 0518 0344 0344 2051 193 Chemistry Sodium (136 - 145 mmol/L) 139 Potassium (3.5 - 5.1 mmol/L) 3.8 Chloride (98 - 107 mmol/L) 103 Carbon Dioxide (20.0 - 31.0 mmol/L) 28.0 Anion Gap (10 - 20 mmol/L) 12 BUN (9 - 23 mg/dL) 6 L Creatinine (0.55 - 1.30 mg/dL) 0.84 Glomerular Filtr Rate (mL/min) 90 Glucose (74 - 106 mg/dL) 100 POC Glucose (74 - 106 MG/DL) 170 H 143 H Calcium (8.7 - 10.4 mg/dL) 8.9 Magnesium (1.6 - 2.6 mg/dL) 1.2 L Total Bilirubin (0.20 - 1.10 mg/dL) 1.20 H Conjugated Bilirubin (0.1 - 0.3 mg/dL) 0.5 H Unconjugated Bilirubin (0 - 1.1 mg/dL) 0.70 AST (0 - 33 U/L) 35 H ALT (10 - 49 U/L) 15 Total Alk Phosphatase (46 - 116 U/L) 102 Total Protein (5.7 - 8.2 g/dL) 6.5 Albumin (3.4 - 5.0 g/dL) 3.4 Carcinoembryonic Ag (0.0 - 2.9 ng/dL) 1.8 Specimen Hemolysis (0 - 3 Index/DL) 0 08/13 08/13 1655 1223 Chemistry POC Glucose (74 - 106 MG/DL) 197 H 112 H Laboratory Tests 08/14 0344 Hematology WBC (5.0 - 12.0 x10 3/uL) 6.4 RBC (4.70 - 6.10 x10 6/uL) 4.10 L Hgb (14.0 - 18.0 g/dL) 12.4 L Hct (37.0 - 49.0 %) 35.7 L MCV (80 - 94 fL) 87 MCH (27 - 31 pg) 30.2 MCHC (33 - 37 g/dL) 34.7 RDW (11.5 - 15.5 %) 13.5 Plt Count (130 - 400 x10 3/uL) 150 MPV (9.4 - 16.4 fL) 8.8 L Neut % (Auto) (43 - 65 %) 60.7 Lymph % (Auto) (20.5 - 45.5 %) 22.8 [place] % (Auto) (5.5 - 11.7 %) 11.3 Eos % (Auto) (0.9 - 2.9 %) 4.1 H Baso % (Auto) (0.2 - 1.0 %) 0.8 Neut # (Auto) (2.2 - 4.8 x10 3/uL) 3.87 Lymph # (Auto) (1.3 - 2.9 x10 3/uL) 1.45 [place] # (Auto) (0.3 - 0.8 x10 3/uL) 0.72 Eos # (Auto) (0.0 - 0.2 x10 3/uL) 0.26 H Baso # (Auto) (0.0 - 0.1 x10 3/uL) 0.05 Immature Gran % (0.0 - 2.0 %) 0.3 Nucleated RBC % (0 - 1.0 %) 0.0 Laboratory Tests 08/13 1402 Serology Hep Bs Antigen (NonReactive) NON-REACTIVE Hepatitis C Antibody (NEGATIVE) NON-REACTIVE Diagnosis, Assessment Plan Free Text A P: 74 year old male with past medical history of HTN, HLD, DM, paroxysmal a-fib, and recent admission for osteomyelitis s/p right great toe amputation on 08/06 who returned to [facility] on 08/10 for right foot pain and swelling. Pulmonology is now being consulted for pulmonary nodule. Patient returned to hospital for right foot pain and swelling, but also was c/o abdominal pain, nausea, and poor appetite. In work-up, he was found to have a new liver lesion suspicious for hepatocellular carcinoma and a pancreatitic tail cyst. CT chest showed a left upper lobe pneumonia and 6mm nodule in RML. Assessment: #KEV pneumonia #Pulmonary nodule #Liver mass #Liver cirrhosis #R foot pain s/p recent R great toe amputation Plan: - on room air - CT chest with KEV pneumonia with small loculated fissural fluid, 6mm nodule in RML - obtain sputum culture - abx - will need outpatient follow-up with repeat imaging - CT abd/pelv shows new 2.5cm hypodensity of left liver lobe, nodular liver contour, 0.9cm hypodensity at tail of pancreas - MRI abdomen shows liver cirrhosis with 2.5cm focus lateral left lobe, portal hypertension, small cystic lesion in tail of pancreas - work-up per primary team Okay for discharge from pulmonary standpoint with PO antibiotics for pneumonia. Patient provided with card for pulmonary clinic and instructed to follow-up outpatient. at 1932 RPT #:[id number] END OF REPORT [facility] 2024-08-13 19:14:00 [facility] Clinical Note REPORT#:[id number] REPORT STATUS: Signed REPORT INITIALIZATION DATE:08/13/24 TIME: 1913 PATIENT: SEYMOUR SNOW UNIT #: [id number] ROOM/BED: [address] : [address] AGE: 74 SEX: M ATTEND: Mary Rojas MD ADM AUTHOR: Philippe Harry MD R2 REPT SERVICE DT/TIME: 08/13/241913 * ALL edits or amendments must be made on the electronic/computer document * Clinical Note Note: MRI a/p done. shows liver cirrhosis with 2.5 cm focus of lateral left lobe, possible hepatocellular carcinoma, cholangiocarcinoma or mets. follow up Alpha fetoprotein, CEA. GI will follow at 1936 RPT #:[id number] END OF REPORT [facility] 2024-08-13 11:51:00 [facility] Hospitalist Progress Note REPORT#:[id number] REPORT STATUS: Signed REPORT INITIALIZATION DATE:08/13/24 TIME: 115 PATIENT: SEYMOUR SNOW UNIT #: [id number] ROOM/BED: [address] : [birth year] AGE: 74 SEX: M ATTEND: Mary Rojas MD ADM AUTHOR: Mary Rojas MD REPT SERVICE DT/TIME: 08/13/24 1151 * ALL edits or amendments must be made on the electronic/computer document * Subjective Chief complaint: pt seen today he was coughing HPI: Review of Systems All systems rev neg: except as noted Free Text ROS Notes Free Text ROS Notes: Negtaive except for above Objective General VS/I O: Vital Signs: Date Time Temp Pulse Resp B/P B/P Pulse O2 O2 Flow FiO2 Mean Ox Delivery Rate 08/13 1233 98.2 68 19 157/89 111.5 92 Room air 08/13 1003 98 Room air 21 08/13 0749 98.6 76 20 158/90 112.6 96 Room air 08/13 0534 97.9 76 18 162/92 115.2 91 Room air 08/13 0024 98.2 67 18 159/89 112.1 91 Room air 08/12 1954 98.1 65 18 164/91 115.3 93 Room air 08/12 1722 93 Nasal 2 28 cannula 08/12 1628 98.1 66 18 125/72 89.6 92 Room air 24 hour I O ending at 0700: 08/13 0700 08/12 1900 Intake Total Output Total 600 Balance -600 Output, Urine 600 PATIENT WEIGHT: Weight (lb): 250 Weight (oz): 8.39 Weight (kg): 113.636 Medications: Active Meds + DC'd Last 24 Hrs Magnesium Sulfate (MAGNESIUM SULFATE 4GM) 100 ML ONCE ONE IV (CKD) Potassium Chloride (K-DUR) 40 MEQ ONCE ONE PO (DC) Apixaban (ELIQUIS) 5 MG BID PO Atorvastatin Calcium (LIPITOR) 40 MG DAILY PO Carvedilol (COREG) 3.125 MG BID PO Ceftriaxone Sodium (ROCEPHIN) 2 GM DAILY IV Sterile Water (WATER,STERILE INJ. ) 20 ML Vancomycin HCl (VANCOCIN) 1,000 MG Q12HR IV Sodium Chloride (SODIUM CHLORIDE 0.9%) 250 ML Insulin Human Lispro (Admelog) Low Dose Sliding Scale: *See ADMIN CRIT for DOSE* AC HS SUBQ Dextrose/Water (DEXTROSE 50% SYR) 25 ML ASDIR PRN IV (CKD) Glucagon (GLUCAGON) 1 MG ASDIR PRN IM Acetaminophen (TYLENOL REGULAR) 650 MG Q6H PRN PRN PO Hydralazine HCl (APRESOLINE) 10 MG Q6H PRN PRN IV Miscellaneous Information (VANCOMYCIN PHARMACY TO DOSE) 1 EACH ASDIR IV (CKD) Naloxone HCl (NARCAN) 0.4 MG Q2M PRN PRN IV Ondansetron HCl (ZOFRAN 4 MG/2 ML INJ) 4 MG Q4H PRN PRN IV Physical Exam General appearance: alert, awake, oriented Head/Eyes: atraumatic Results Findings/Data: Laboratory Tests 08/13 08/13 08/13 08/13 08/12 1223 0532 0251 0251 1955 Chemistry Sodium (136 - 145 mmol/L) 140 Potassium (3.5 - 5.1 mmol/L) 3.1 L Chloride (98 - 107 mmol/L) 103 Carbon Dioxide (20.0 - 31.0 mmol/L) 28.0 Anion Gap (10 - 20 mmol/L) 12 BUN (9 - 23 mg/dL) 6 L Creatinine (0.55 - 1.30 mg/dL) 0.88 Glomerular Filtr Rate (mL/min) 89 Glucose (74 - 106 mg/dL) 80 POC Glucose (74 - 106 MG/DL) 112 H 83 112 H Calcium (8.7 - 10.4 mg/dL) 8.2 L Magnesium (1.6 - 2.6 mg/dL) 0.9 L Total Bilirubin (0.20 - 1.10 mg/dL) 0.90 Conjugated Bilirubin (0.1 - 0.3 mg/dL) 0.5 H Unconjugated Bilirubin (0 - 1.1 mg/dL) 0.40 AST (0 - 33 U/L) 30 ALT (10 - 49 U/L) 15 Total Alk Phosphatase (46 - 116 U/L) 83 Total Protein (5.7 - 8.2 g/dL) 5.9 Albumin (3.4 - 5.0 g/dL) 3.2 L Specimen Hemolysis (0 - 3 Index/DL) 0 08/12 1626 Chemistry POC Glucose (74 - 106 MG/DL) 130 H Laboratory Tests 08/13 0251 Hematology WBC (5.0 - 12.0 x10 3/uL) 5.5 RBC (4.70 - 6.10 x10 6/uL) 3.71 L Hgb (14.0 - 18.0 g/dL) 11.4 L Hct (37.0 - 49.0 %) 32.6 L MCV (80 - 94 fL) 88 MCH (27 - 31 pg) 30.7 MCHC (33 - 37 g/dL) 35.0 RDW (11.5 - 15.5 %) 13.4 Plt Count (130 - 400 x10 3/uL) 148 MPV (9.4 - 16.4 fL) 9.2 L Neut % (Auto) (43 - 65 %) 53.1 Lymph % (Auto) (20.5 - 45.5 %) 29.0 [place] % (Auto) (5.5 - 11.7 %) 11.3 Eos % (Auto) (0.9 - 2.9 %) 5.3 H Baso % (Auto) (0.2 - 1.0 %) 1.1 H Neut # (Auto) (2.2 - 4.8 x10 3/uL) 2.91 Lymph # (Auto) (1.3 - 2.9 x10 3/uL) 1.59 [place] # (Auto) (0.3 - 0.8 x10 3/uL) 0.62 Eos # (Auto) (0.0 - 0.2 x10 3/uL) 0.29 H Baso # (Auto) (0.0 - 0.1 x10 3/uL) 0.06 Immature Gran % (0.0 - 2.0 %) 0.2 Nucleated RBC % (0 - 1.0 %) 0.0 Laboratory Tests 08/13 0825 Toxicology Vancomycin Trough (10 - 20.0 ug/mL) 14.6 Free Text Obj Notes Free Text Obj Notes: Physical Exam: Gen: No acute distress Neck: Supple, full range of motion Lungs: Normal breathing sounds CV: RRR, no murmur. Abdomen: Soft, nondistended, upper and middle abd tenderness MSK: Rt foot dressing noted Neuro: Alert Diagnosis, Assessment Plan Free Text DxA P Notes Free text DxA P notes: 74-year-old male with PMH of HTN, HLD, DM, Afib, and recent right first toe amputation 3 days ago, presented to the ED comaplining of Rt foot pain and swelling since surgery, also reported abdominal pain. #Rt foot pain -Hx of osteomyelitis the head of the great toe -S/p Rt hallux amputation on 08/07 -Obtain Bcx and wound cx -Start IV ceftriaxone and vancomycin -Consult podiatry,they sign off #PNA on iv abx #LUNG nodule per pulm ct noted #Abdominal pain Hypodensity of the left liver lobe Hypodensity at the tail the pancreas Isolated left intrahepatic biliary dilatation -CT A/p New 2.5 cm hypodensity of the left liver lobe, indeterminate. Suspect associated isolated left intrahepatic biliary dilatation. Differential includes malignancy. Further evaluation can be obtained with liver protocol cross- sectional MRI imaging. Nodular liver contour with enlargement of the left liver lobe, correlate clinically for cirrhosis. 0.9 cm hypodensity at the tail the pancreas. May reflect a pancreatic cyst or IPMN. -Obtain MRI abdomen -Monitor LFT -GI consult #hypomagnesemia replaced #liver mass -Abd MRI show 2.5cm focal lateral left lobe may reflect mass, small cystic pancreatic lesion -CT chest with contrast show 6mm right middle lobe nodule -Patient has a history of cigarette smoking and alcohol use -heptitis panel,AFP pending HTN -resume Coreg HLD -Statin DM -SSI -Monitor Afib -resuem ELiquis and Coreg -tele dvt ppx:eliquis dispo:home in 2 days at 2140 RPT #:[id number] END OF REPORT [facility] 2024-08-13 11:43:00 [facility] Pharmacy Prog.Note-Vancomycin REPORT#:[id number] REPORT STATUS: Signed REPORT INITIALIZATION DATE:08/13/24 TIME: 1143 PATIENT: SEYMOUR SNOW UNIT #: [id number] ROOM/BED: [address] : [address] AGE: 74 SEX: M ATTEND: Mary Rojas MD ADM AUTHOR: Andres Raman [facility] REPT SERVICE DT/TIME: 08/13/24 1143 * ALL edits or amendments must be made on the electronic/computer document * Vancomycin Vancomycin Medication Therapy Goal: AUC 400-600 mg*hr/L Indication for treatment: SSTI Current therapy: Medication(s) Ordered: Anti-Infective Agents Sig/Mary Start time Last Medication Dose Route Stop Time Status Admin Ceftriaxone Sodium 2 GM DAILY 08/11 09 AC 08/13 Sterile Water 20 ML IV 08/18 0859 0858 Vancomycin HCl 1,000 MG Q12HR 08/11 09 AC 08/13 Sodium Chloride 250 ML IV 08/18 0859 0958 VS and I/O: Vital Signs Date Temp Pulse Resp B/P B/P Mean Pulse Ox FiO2 08/12-08/13 36.6-37.0 65-76 18-20 125-164/72-92 89.6-115.3 91-98 - 72 hours ending at 0700 08/13 0700 08/12 1900 08/12 0700 08/11 1900 08/11 08/10 0700 1900 Intake Total Output 600 Total Balance -600 Output, 600 Urine Patient 113.636 kg 113.636 kg Weight Weight Stated/Rep Stated/Re orted ported Measuremen t Method 72 Hour I O Total 08/13 0700 08/12 0700 08/11 0700 Intake Total Output Total 600 Balance -600 Labs: Laboratory Tests: 08/13 08/12 0825 0338 Toxicology Vancomycin Peak (20.0 - 26.0 ug/mL) 20.6 Vancomycin Trough (10 - 20.0 ug/mL) 14.6 Laboratory Test : 08/13 08/12 08/11 08/10 0251 0338 0447 1342 Chemistry BUN (9 - 23 mg/dL) 6 L 7 L 12 9 Creatinine (0.55 - 1.30 mg/dL) 0.88 0.89 1.11 1.16 Hematology WBC (5.0 - 12.0 x10 3/uL) 5.5 5.1 7.3 7.5 Microbiology: 08/10 1342 FOOT: Wound Culture - COMP 08/10 1342 FOOT: Gram Stain - COMP 08/10 1342 BLOOD: Blood Culture - RES 08/10 1326 BLOOD: Blood Culture - ORD Treatment plan: consult Regimen: Continue vancomycin 1000 mg IV q12h Follow up: Lab: 08/15 Lean Sensei@ 0100; Vt@ 0800 Rationale: Ordering MD: (GONSALO BARBER) Current antibiotics: As listed above. Dosing Weight - K kg (adj BW;BMI 32) * Vancomycin Consult - (SSTI). * 08/13 AUC = 503 mcg*hr/ml (Lean Sensei=20.6, Vt=14.6 mcg/ml), therapeutic with slightly improved SCr. The patient may benefit from continuing current vancomycin regimen. * Vancomycin 1000 mg IV q12h * 08/15 Lean Sensei@ 0100; Vt@ 0800 [address] SCR/CRCL LEVELS AUC REGIMEN 08/10 1 LD: 2.5 GM X ONCE 08/11 2 1. MD: 1 GM Q12H 08/13 4 0.9/96 Lean Sensei=20.6;vt=14.6 503 MD: 1 GM Q12H 08/15 6 Lean Sensei@ 01; Vt@ 08 at 1148 RPT #:[id number] END OF REPORT [facility] 2024-08-13 11:30:00 ([facility]) Noe/Oncology Consult Note REPORT#:[id number] REPORT STATUS: Signed REPORT INITIALIZATION DATE:08/13/24 TIME: 1130 PATIENT: SEYMOUR SNOW UNIT #: [id number] ROOM/BED: [address] : [address] AGE: 74 SEX: M ATTEND: Mary Rojas MD ADM AUTHOR: Joseph Fletcher DO R2 REPT SERVICE DT/TIME: 08/13/24 1130 * ALL edits or amendments must be made on the electronic/computer document * Joseph Fletcher 08/13/24 1130: History of Present Illness Chief complaint: abd pain HPI: Patient is 74-year-old female past medical history of hypertension, hyperlipidemia, diabetes, A-fib here for right toe pain abdominal pain for the past month. CT abdomen showed a nodular liver with 2.5 cm hypodensity on the left liver lobe. MRI was done after that mass in the similar area suspicious for hepatocellular carcinoma. Patient has a history of cigarette smoking as well as alcohol use. No known history of cirrhosis, hepatitis. LFTs here are normal. Hematology/oncology consulted for possible hepatocellular carcinoma. History - Adult longitudinal Past medical history: Reports: Congestive heart failure, Diabetes mellitus, Hypertension, Dyslipidemia. Past surgical history: Reports: Cholecystectomy. Additional surgical history: Neck surgery, 40 years ago Additional family history: none Alcohol use: Denies EtOH use Drug use: Denies recreational drugs Smoking status for patients 13 years old or older: Never Smoker Other social history: Good social support Allergies: Coded Allergies: No Known Allergies (10/26/18) Review of Systems All systems rev neg: except as marked Objective Physical Exam VS: Vital Signs Date Temp Pulse Resp B/P B/P Mean Pulse Ox FiO2 08/12-08/13 97.9-98.6 65-76 18-20 125-164/72-92 89.6-115.3 91-98 Last Documented: Result Date Time Pulse Ox 92 08/13 1233 B/P 157/89 08/13 1233 B/P Mean 111.5 08/13 1233 O2 Delivery Room air 08/13 1233 Temp 98.2 08/13 1233 Pulse 68 08/13 1233 Resp 19 08/13 1233 FiO2 21 08/13 1003 O2 Flow Rate 2 08/12 1722 PATIENT WEIGHT: Weight (lb): 250 Weight (oz): 8.39 Weight (kg): 113.636 Cardiovascular: normal heart sounds Respiratory: clear to auscultation Results Findings/Data: Laboratory Tests 08/13/24 0251: [Embedded Image Not Available] Laboratory Tests 08/13 08/13 08/13 08/13 08/12 1223 0532 0251 0251 1955 Chemistry Sodium (136 - 145 mmol/L) 140 Potassium (3.5 - 5.1 mmol/L) 3.1 L Chloride (98 - 107 mmol/L) 103 Carbon Dioxide (20.0 - 31.0 mmol/L) 28.0 Anion Gap (10 - 20 mmol/L) 12 BUN (9 - 23 mg/dL) 6 L Creatinine (0.55 - 1.30 mg/dL) 0.88 Glomerular Filtr Rate (mL/min) 89 Glucose (74 - 106 mg/dL) 80 POC Glucose (74 - 106 MG/DL) 112 H 83 112 H Calcium (8.7 - 10.4 mg/dL) 8.2 L Magnesium (1.6 - 2.6 mg/dL) 0.9 L Total Bilirubin (0.20 - 1.10 mg/dL) 0.90 Conjugated Bilirubin (0.1 - 0.3 mg/dL) 0.5 H Unconjugated Bilirubin (0 - 1.1 mg/dL) 0.40 AST (0 - 33 U/L) 30 ALT (10 - 49 U/L) 15 Total Alk Phosphatase (46 - 116 U/L) 83 Total Protein (5.7 - 8.2 g/dL) 5.9 Albumin (3.4 - 5.0 g/dL) 3.2 L Specimen Hemolysis (0 - 3 Index/DL) 0 08/12 1626 Chemistry POC Glucose (74 - 106 MG/DL) 130 H Laboratory Tests 08/13 0251 Hematology WBC (5.0 - 12.0 x10 3/uL) 5.5 RBC (4.70 - 6.10 x10 6/uL) 3.71 L Hgb (14.0 - 18.0 g/dL) 11.4 L Hct (37.0 - 49.0 %) 32.6 L MCV (80 - 94 fL) 88 MCH (27 - 31 pg) 30.7 MCHC (33 - 37 g/dL) 35.0 RDW (11.5 - 15.5 %) 13.4 Plt Count (130 - 400 x10 3/uL) 148 MPV (9.4 - 16.4 fL) 9.2 L Neut % (Auto) (43 - 65 %) 53.1 Lymph % (Auto) (20.5 - 45.5 %) 29.0 [place] % (Auto) (5.5 - 11.7 %) 11.3 Eos % (Auto) (0.9 - 2.9 %) 5.3 H Baso % (Auto) (0.2 - 1.0 %) 1.1 H Neut # (Auto) (2.2 - 4.8 x10 3/uL) 2.91 Lymph # (Auto) (1.3 - 2.9 x10 3/uL) 1.59 [place] # (Auto) (0.3 - 0.8 x10 3/uL) 0.62 Eos # (Auto) (0.0 - 0.2 x10 3/uL) 0.29 H Baso # (Auto) (0.0 - 0.1 x10 3/uL) 0.06 Immature Gran % (0.0 - 2.0 %) 0.2 Nucleated RBC % (0 - 1.0 %) 0.0 Laboratory Tests 08/13 0825 Toxicology Vancomycin Trough (10 - 20.0 ug/mL) 14.6 Diagnosis, Assessment Plan Free Text DxA P Notes Free Text DxA P Notes: Patient is 74-year-old female past medical history of hypertension, hyperlipidemia, diabetes, A-fib here for right toe pain abdominal pain for the past month. Hematology/oncology consulted for possible hepatocellular carcinoma found on MRI. #liver mass #cirrhosis -CT abd/pel with contrast: nodular liver with 2.5cm hypodensity left liver lobe, suspect malignancy -Abd MRI show 2.5cm focal lateral left lobe may reflect mass, small cystic pancreatic lesion -CT chest with contrast show 6mm right middle lobe nodule -Patient has a history of cigarette smoking and alcohol use -No known diagnosis of cirrhosis -AFP ordered -LFT normal -GI following -heptitis work up for cause of cirrhosis Plan discussed with attending. Eric Bashir 08/13/24 2211: Diagnosis, Assessment Plan Free Text DxA P Notes Free Text DxA P Notes: I saw and evaluated the patient. I agree with the findings and the plan of care as documented in the resident s note. pt states he was treated for hepC at [facility]. incidental HCC like lesion - outpatient MRI triple phase and workups. at 1408 at 2212 RPT #:[id number] END OF REPORT [facility] 2024-08-13 10:17:00 ([facility] Gastroenterology Progress Note REPORT#:[id number] REPORT STATUS: Signed REPORT INITIALIZATION DATE:08/13/24 TIME: 1017 PATIENT: SEYMOUR SNOW UNIT #: [id number] ROOM/BED: [address] : 48 AGE: 74 SEX: M ATTEND: Mary Rojas MD ADM AUTHOR: Anu Mccoy MD R1 REPT SERVICE DT/TIME: 08/13/24 1017 * ALL edits or amendments must be made on the electronic/computer document * Subjective HPI: NAEON Resting comfortably MRI results were pending when pt was initially seen this AM 74 yo M w/ PMH HTN, HLD, DM, afib and recent first toe amputation presented to ED complaining of R foot pain and abdominal pain and nausea. GI is consulted for abdominal pain. THe pain is dull and intermittent. ON exam today he is AFVSS. CT a/p from 08/10 shows new 2.5 cm hypodensity of left liver lobe, suspected isolated L intrahepatic biliary dilatation, nodular contour with enlargement of the left liver lobe, 0.9 cm hypodensity at tail of pancreas. Labs from 08/10 show Tbili 1.3, AST 42. Review of Systems Free Text ROS Notes Free Text ROS Notes: ROS negative unless noted in above HPI of the following systems: constitutional, eyes, HENT, neck, neuro, CV, resp, GI, , msk, skin Objective General VS/I O: Last Documented: Result Date Time Pulse Ox 98 08/13 1003 FiO2 21 08/13 1003 O2 Delivery Room air 08/13 1003 B/P 158/90 08/13 0749 B/P Mean 112.6 08/13 0749 Temp 98.6 08/13 0749 Pulse 76 08/13 0749 Resp 20 08/13 0749 O2 Flow Rate 2 08/12 1722 24 hour I O ending at 0700: 08/13 0700 08/12 1900 Intake Total Output Total 600 Balance -600 Output, Urine 600 PATIENT WEIGHT: Weight (lb): 250 Weight (oz): 8.39 Weight (kg): 113.636 Medications: Active Meds + DC'd Last 24 Hrs Potassium Chloride (K-DUR) 40 MEQ ONCE ONE PO (DC) Apixaban (ELIQUIS) 5 MG BID PO Atorvastatin Calcium (LIPITOR) 40 MG DAILY PO Carvedilol (COREG) 3.125 MG BID PO Ceftriaxone Sodium (ROCEPHIN) 2 GM DAILY IV Sterile Water (WATER,STERILE INJ. ) 20 ML Vancomycin HCl (VANCOCIN) 1,000 MG Q12HR IV Sodium Chloride (SODIUM CHLORIDE 0.9%) 250 ML Insulin Human Lispro (Admelog) Low Dose Sliding Scale: *See ADMIN CRIT for DOSE* AC HS SUBQ Dextrose/Water (DEXTROSE 50% SYR) 25 ML ASDIR PRN IV (CKD) Glucagon (GLUCAGON) 1 MG ASDIR PRN IM Acetaminophen (TYLENOL REGULAR) 650 MG Q6H PRN PRN PO Hydralazine HCl (APRESOLINE) 10 MG Q6H PRN PRN IV Miscellaneous Information (VANCOMYCIN PHARMACY TO DOSE) 1 EACH ASDIR IV (CKD) Naloxone HCl (NARCAN) 0.4 MG Q2M PRN PRN IV Ondansetron HCl (ZOFRAN 4 MG/2 ML INJ) 4 MG Q4H PRN PRN IV Dietitian nutrition assessment The data set between the solid lines has been imported from the dietitian's assessment. BMI Calculated: 32.2 Nutrition related diagnosis: Nutrition diagnosis details: Nutrition problem: Nutrition etiology: Nutrition signs and symptoms: Nutrition prescription: Dietitian name: Assessment completed: Physical Exam General appearance: alert, awake, no acute distress, no respiratory distress Neck: full range of motion Cardiovascular: normal capillary refill Respiratory: aerating well Abdomen: distended, non-tender, soft, no guarding, no rebound Extremities: moves all Musculoskeletal: full range of motion Skin: dry, intact Psychiatry: normal affect, normal mood Results Findings/Data: Laboratory Tests 08/13/24 0251: [Embedded Image Not Available] Laboratory Tests 08/13 08/13 08/13 08/12 08/12 0532 0251 0251 1955 1626 Chemistry Sodium (136 - 145 mmol/L) 140 Potassium (3.5 - 5.1 mmol/L) 3.1 L Chloride (98 - 107 mmol/L) 103 Carbon Dioxide (20.0 - 31.0 mmol/L) 28.0 Anion Gap (10 - 20 mmol/L) 12 BUN (9 - 23 mg/dL) 6 L Creatinine (0.55 - 1.30 mg/dL) 0.88 Glomerular Filtr Rate (mL/min) 89 Glucose (74 - 106 mg/dL) 80 POC Glucose (74 - 106 MG/DL) 83 112 H 130 H Calcium (8.7 - 10.4 mg/dL) 8.2 L Magnesium (1.6 - 2.6 mg/dL) 0.9 L Total Bilirubin (0.20 - 1.10 mg/dL) 0.90 Conjugated Bilirubin (0.1 - 0.3 mg/dL) 0.5 H Unconjugated Bilirubin (0 - 1.1 mg/dL) 0.40 AST (0 - 33 U/L) 30 ALT (10 - 49 U/L) 15 Total Alk Phosphatase (46 - 116 U/L) 83 Total Protein (5.7 - 8.2 g/dL) 5.9 Albumin (3.4 - 5.0 g/dL) 3.2 L Specimen Hemolysis (0 - 3 Index/DL) 0 08/12 1201 Chemistry POC Glucose (74 - 106 MG/DL) 108 H Laboratory Tests 08/13 0251 Hematology WBC (5.0 - 12.0 x10 3/uL) 5.5 RBC (4.70 - 6.10 x10 6/uL) 3.71 L Hgb (14.0 - 18.0 g/dL) 11.4 L Hct (37.0 - 49.0 %) 32.6 L MCV (80 - 94 fL) 88 MCH (27 - 31 pg) 30.7 MCHC (33 - 37 g/dL) 35.0 RDW (11.5 - 15.5 %) 13.4 Plt Count (130 - 400 x10 3/uL) 148 MPV (9.4 - 16.4 fL) 9.2 L Neut % (Auto) (43 - 65 %) 53.1 Lymph % (Auto) (20.5 - 45.5 %) 29.0 [place] % (Auto) (5.5 - 11.7 %) 11.3 Eos % (Auto) (0.9 - 2.9 %) 5.3 H Baso % (Auto) (0.2 - 1.0 %) 1.1 H Neut # (Auto) (2.2 - 4.8 x10 3/uL) 2.91 Lymph # (Auto) (1.3 - 2.9 x10 3/uL) 1.59 [place] # (Auto) (0.3 - 0.8 x10 3/uL) 0.62 Eos # (Auto) (0.0 - 0.2 x10 3/uL) 0.29 H Baso # (Auto) (0.0 - 0.1 x10 3/uL) 0.06 Immature Gran % (0.0 - 2.0 %) 0.2 Nucleated RBC % (0 - 1.0 %) 0.0 Laboratory Tests 03/28 0825 Toxicology Vancomycin Trough (10 - 20.0 ug/mL) 14.6 Diagnosis, Assessment Plan Free Text A P: 74 yo M w/ PMH HTN, HLD, DM, afib and recent first toe amputation presented to ED complaining of R foot pain and abdominal pain and nausea. CT a/p remarkable for lesion of liver, lesion of tail of pancreas. MRI liver protocol: Liver cirrhosis with 2.5 cm focus lateral left lobe may reflect hepatocellular carcinoma; cholangiocarcinoma or metastasis is not excluded. Correlate with alpha fetoprotein. Plan: - Recommend tumor markers, staging work up, heme/onc consult - Zofran for nausea - MMPC - diet as tolerated - No GI intervention planned at this time - Discussed with Dr. Leigh at 1020 RPT #:[id number] END OF REPORT [facility] 2024-08-13 09:28:00 [facility]) Pulmonary Consultation Note REPORT#:[id number] REPORT STATUS: Signed REPORT INITIALIZATION DATE:08/13/24 TIME: 927 PATIENT: SEYMOUR SNOW UNIT #: [id number] ROOM/BED: [address] : 48 AGE: 74 SEX: M ATTEND: Mary Rojas MD ADM AUTHOR: Sophie Martinez DO CF2 REPT SERVICE DT/TIME: 08/13/24927 * ALL edits or amendments must be made on the electronic/computer document * History of Present Illness HPI Requesting clinician: Dr. Rojas Reason for consult: Pulmonary nodule Chief complaint: R foot pain HPI: Mr. Jayla Sarah is a 74 year old male with past medical history of HTN, HLD , DM, paroxysmal a-fib, and recent admission for osteomyelitis s/p right great toe amputation on 08/06 who returned to [facility] on 08/10 for right foot pain and swelling. Pulmonology is now being consulted for pulmonary nodule. Patient returned to hospital for right foot pain and swelling, but also was c/o abdominal pain, nausea, and poor appetite. In work-up, he was found to have a new liver lesion suspicious for hepatocellular carcinoma and a pancreatitic tail cyst. CT chest showed a left upper lobe pneumonia and 6mm nodule in RML. Patient reports cough productive of white sputum and sometimes getting short of breath. He denies history of COPD, asthma, or any other lung disease. He never smoked. He has worked in various jobs and has previously worked with [employer]. History - Adult longitudinal Past medical history: Reports: Congestive heart failure, Diabetes mellitus, Hypertension, Dyslipidemia. Additional medical history: HTN, HLD, DM, paroxysmal a-fib, osteomyelitis Past surgical history: Reports: Cholecystectomy. Additional surgical history: Neck surgery, 40 years ago Right great toe amputation 08/06/24 Additional family history: none Alcohol use: Denies EtOH use Drug use: Denies recreational drugs Smoking status for patients 13 years old or older: Never Smoker Other social history: Good social support Allergies: Coded Allergies: No Known Allergies (10/26/18) Review of Systems Constitutional: Denies: chills, fatigue, fever. Skin: Denies: diaphoresis, rash. Eyes: Denies: visual loss/blurred, eye pain. ENT: Denies: nasal congestion, sore throat. Respiratory: Reports: productive cough (sputum). Denies: PRITCHARD (dyspnea on exertion), hemoptysis, SOB, wheezing. Cardiovascular: Denies: chest pain, edema. GI: Reports: abdominal pain, nausea. Denies: vomiting. Musculoskeletal: Extremity pain: Denies: bilateral. Extremity swelling: Denies: bilateral. Neuro: Denies: headache, lightheaded. Objective Physical Exam Vitals: Last Documented: Result Date Time Pulse Ox 96 08/13 0749 B/P 158/90 08/13 0749 B/P Mean 112.6 08/13 0749 O2 Delivery Room air 08/13 0749 Temp 98.6 08/13 0749 Pulse 76 08/13 0749 Resp 20 08/13 0749 FiO2 28 08/12 1722 O2 Flow Rate 2 08/12 1722 General appearance: alert, awake, oriented, no acute distress Head/eyes: atraumatic, normocephalic ENT: ENT: moist mucosal membranes Neck: non-tender, no JVD Cardiovascular: normal heart sounds, regular rate rhythm Respiratory/chest: aerating well, clear to auscultation, no distress Extremities: moves all, no edema Neuro/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: alert, oriented X 3 Results Findings/Data: Laboratory Tests 08/13/24250: [Embedded Image Not Available] Laboratory Tests 08/13 08/13 08/13 08/12 08/12 0532 0251 [id number] 1626 Chemistry Sodium (136 - 145 mmol/L) 140 Potassium (3.5 - 5.1 mmol/L) 3.1 L Chloride (98 - 107 mmol/L) 103 Carbon Dioxide (20.0 - 31.0 mmol/L) 28.0 Anion Gap (10 - 20 mmol/L) 12 BUN (9 - 23 mg/dL) 6 L Creatinine (0.55 - 1.30 mg/dL) 0.88 Glomerular Filtr Rate (mL/min) 89 Glucose (74 - 106 mg/dL) 80 POC Glucose (74 - 106 MG/DL) 83 112 H 130 H Calcium (8.7 - 10.4 mg/dL) 8.2 L Magnesium (1.6 - 2.6 mg/dL) 0.9 L Total Bilirubin (0.20 - 1.10 mg/dL) 0.90 Conjugated Bilirubin (0.1 - 0.3 mg/dL) 0.5 H Unconjugated Bilirubin (0 - 1.1 mg/dL) 0.40 AST (0 - 33 U/L) 30 ALT (10 - 49 U/L) 15 Total Alk Phosphatase (46 - 116 U/L) 83 Total Protein (5.7 - 8.2 g/dL) 5.9 Albumin (3.4 - 5.0 g/dL) 3.2 L Specimen Hemolysis (0 - 3 Index/DL) 0 08/12 1201 Chemistry POC Glucose (74 - 106 MG/DL) 108 H Laboratory Tests 08/13 250 Hematology WBC (5.0 - 12.0 x10 3/uL) 5.5 RBC (4.70 - 6.10 x10 6/uL) 3.71 L Hgb (14.0 - 18.0 g/dL) 11.4 L Hct (37.0 - 49.0 %) 32.6 L MCV (80 - 94 fL) 88 MCH (27 - 31 pg) 30.7 MCHC (33 - 37 g/dL) 35.0 RDW (11.5 - 15.5 %) 13.4 Plt Count (130 - 400 x10 3/uL) 148 MPV (9.4 - 16.4 fL) 9.2 L Neut % (Auto) (43 - 65 %) 53.1 Lymph % (Auto) (20.5 - 45.5 %) 29.0 [place] % (Auto) (5.5 - 11.7 %) 11.3 Eos % (Auto) (0.9 - 2.9 %) 5.3 H Baso % (Auto) (0.2 - 1.0 %) 1.1 H Neut # (Auto) (2.2 - 4.8 x10 3/uL) 2.91 Lymph # (Auto) (1.3 - 2.9 x10 3/uL) 1.59 [place] # (Auto) (0.3 - 0.8 x10 3/uL) 0.62 Eos # (Auto) (0.0 - 0.2 x10 3/uL) 0.29 H Baso # (Auto) (0.0 - 0.1 x10 3/uL) 0.06 Immature Gran % (0.0 - 2.0 %) 0.2 Nucleated RBC % (0 - 1.0 %) 0.0 Laboratory Tests 08/13 0825 Toxicology Vancomycin Trough (10 - 20.0 ug/mL) 14.6 Diagnosis, Assessment Plan Free Text DxA P Notes Free Text DxA P Notes: 74 year old male with past medical history of HTN, HLD, DM, paroxysmal a-fib, and recent admission for osteomyelitis s/p right great toe amputation on 08/06 who returned to [facility] on 08/10 for right foot pain and swelling. Pulmonology is now being consulted for pulmonary nodule. Patient returned to hospital for right foot pain and swelling, but also was c/o abdominal pain, nausea, and poor appetite. In work-up, he was found to have a new liver lesion suspicious for hepatocellular carcinoma and a pancreatitic tail cyst. CT chest showed a left upper lobe pneumonia and 6mm nodule in RML. Assessment: #KEV pneumonia #Pulmonary nodule #Liver mass #Liver cirrhosis #R foot pain s/p recent R great toe amputation Plan: - on room air - CT chest with KEV pneumonia with small loculated fissural fluid, 6mm nodule in RML - obtain sputum culture - abx - obtain echocardiogram - will need outpatient follow-up with repeat imaging - CT abd/pelv shows new 2.5cm hypodensity of left liver lobe, nodular liver contour, 0.9cm hypodensity at tail of pancreas - MRI abdomen shows liver cirrhosis with 2.5cm focus lateral left lobe, portal hypertension, small cystic lesion in tail of pancreas - work-up per primary team at 1715 RPT #:[id number] END OF REPORT [facility] 2024-08-13 07:53:00 [facility] Podiatry Progress Note REPORT#:[id number] REPORT STATUS: Signed REPORT INITIALIZATION DATE:08/13/24 TIME: 752 PATIENT: SEYMOUR SNOW UNIT #: [id number] ROOM/BED: [address] : [birth year] AGE: 74 SEX: M ATTEND: Mary Rojas MD ADM AUTHOR: Twyla Crane DPM R1 REPT SERVICE DT/TIME: 08/13/24 0753 * ALL edits or amendments must be made on the electronic/computer document * Subjective HPI: patient seen at bedside Objective Physical Exam Wound/incision: Location: RIGHT LOWER EXTREMITY FOCUSED PHYSICAL EXAM: VASCULAR: DP/PT pulses nonpalpable, less than 3 seconds capillary refill time, temperature gradient cool to warm distal to proximal. Mild edema. DERMATOLOGIC: sutures intact, skin edges well approximated, no signs of masceration, no gangrenous changes MUSCULOSKELETAL: Muscle strength testing, deferred. Positive pain to palpation. Mild equinus. NEUROLOGIC: Gross epicritic sensation diminished for light touch and proprioception. Diagnosis, Assessment Plan Free Text A P: ASSESSMENT: 1. Status post hallux amputation,right foot. 2. Cellulitis, right foot. 3. Type 2 diabetes mellitus with peripheral neuropathy. 4. Peripheral arterial disease. PLAN: 1. The patient was evaluated and examined at bedside. All questions and concerns from the patient addressed to the patient's satisfaction. 2. Reviewed labs and vital signs. 3. Reviewed imaging: no OM 6. Reviewed arterial Doppler, showing monophasic flow in the foot arteries Patient is cleared from the podiatry standpoint. Patient is to keep dressings clean dry intact. Patient is to be weightbearing as tolerated to the right foot. Patient's follow-up outpatient with Dr. Swanson. Will continue to follow while in house. Plan discussed with Dr. Swanson at 1012 at 2128 RPT #:[id number] END OF REPORT [facility] 2024-08-12 14:51:00 [facility] REPORT#:[id number] REPORT STATUS: Signed REPORT INITIALIZATION DATE:08/12/24 TIME: 1450 PATIENT: SEYMOUR SNOW UNIT #: [id number] ROOM/BED: [address] : [birth year] AGE: 74 SEX: M ATTEND: Mary Rojas MD ADM AUTHOR: Mary Rojas MD REPT SERVICE DT/TIME: 08/12/24 1451 * ALL edits or amendments must be made on the electronic/computer document * Subjective Chief complaint: pt seen today he was coughing HPI: Review of Systems All systems rev neg: except as noted Free Text ROS Notes Free Text ROS Notes: Negtaive except for above Objective General VS/I O: Vital Signs: Date Time Temp Pulse Resp B/P B/P Pulse O2 O2 Flow FiO2 Mean Ox Delivery Rate 08/12 195 98.1 65 18 164/91 115.3 93 Room air 08/12 1722 93 Nasal 2 28 cannula 08/12 1628 98.1 66 18 125/72 89.6 92 Room air 08/12 1202 98.1 74 18 151/83 105.6 93 Room air 08/12 0900 Nasal 2 cannula 08/12 0741 97.7 69 18 160/82 108.1 95 Nasal cannula 08/12 0447 98.1 70 18 163/76 105.3 97 Nasal cannula 08/12 0019 97.9 70 18 140/81 100.4 97 Nasal cannula 24 hour I O ending at 0700: 08/12 0700 08/11 1900 Intake Total Output Total Balance Patient 113.636 kg Weight Weight Stated/Reported Measurement Method PATIENT WEIGHT: Weight (lb): 250 Weight (oz): 8.39 Weight (kg): 113.636 Medications: Active Meds + DC'd Last 24 Hrs Iopamidol (ISOVUE-370 100ML) 100 ML ONCE PRN IV (DC) Sodium Chloride (SODIUM CHLORIDE 0.9%) 50 ML ONCE PRN IV (DC) Apixaban (ELIQUIS) 5 MG BID PO Atorvastatin Calcium (LIPITOR) 40 MG DAILY PO Carvedilol (COREG) 3.125 MG BID PO Ceftriaxone Sodium (ROCEPHIN) 2 GM DAILY IV Sterile Water (WATER,STERILE INJ. ) 20 ML Vancomycin HCl (VANCOCIN) 1,000 MG Q12HR IV Sodium Chloride (SODIUM CHLORIDE 0.9%) 250 ML Insulin Human Lispro (Admelog) Low Dose Sliding Scale: *See ADMIN CRIT for DOSE* AC HS SUBQ Dextrose/Water (DEXTROSE 50% SYR) 25 ML ASDIR PRN IV (CKD) Glucagon (GLUCAGON) 1 MG ASDIR PRN IM Acetaminophen (TYLENOL REGULAR) 650 MG Q6H PRN PRN PO Hydralazine HCl (APRESOLINE) 10 MG Q6H PRN PRN IV Miscellaneous Information (VANCOMYCIN PHARMACY TO DOSE) 1 EACH ASDIR IV (CKD) Naloxone HCl (NARCAN) 0.4 MG Q2M PRN PRN IV Ondansetron HCl (ZOFRAN 4 MG/2 ML INJ) 4 MG Q4H PRN PRN IV Sodium Chloride (SODIUM CHLORIDE 0.9%) 1,000 ML .Q10H IV (DC) Physical Exam General appearance: alert, awake, oriented Results Findings/Data: Laboratory Tests 08/12 08/12 08/12 08/12 08/12 1955 1626 1201 0338 0338 Chemistry POC Glucose (74 - 106 MG/DL) 112 H 130 H 108 H Hemoglobin A1c (0.0 - 5.6 %) 8.50 H Lactic Acid (0.50 - 1.99 mmol/L) 0.90 08/12 0338 Chemistry Sodium (136 - 145 mmol/L) 143 Potassium (3.5 - 5.1 mmol/L) 3.1 L Chloride (98 - 107 mmol/L) 104 Carbon Dioxide (20.0 - 31.0 mmol/L) 29.0 Anion Gap (10 - 20 mmol/L) 13 BUN (9 - 23 mg/dL) 7 L Creatinine (0.55 - 1.30 mg/dL) 0.89 Glomerular Filtr Rate (mL/min) 89 Glucose (74 - 106 mg/dL) 69 L Calcium (8.7 - 10.4 mg/dL) 8.3 L Total Bilirubin (0.20 - 1.10 mg/dL) 0.90 Conjugated Bilirubin (0.1 - 0.3 mg/dL) 0.5 H Unconjugated Bilirubin (0 - 1.1 mg/dL) 0.40 AST (0 - 33 U/L) 36 H ALT (10 - 49 U/L) 17 Total Alk Phosphatase (46 - 116 U/L) 82 C-Reactive Protein (0 - 5 mg/dL) 38 H Total Protein (5.7 - 8.2 g/dL) 6.0 Albumin (3.4 - 5.0 g/dL) 3.2 L Specimen Hemolysis (0 - 3 Index/DL) 1 Laboratory Tests 08/12 0338 Coagulation D-Dimer (0 - 500 ng/mLFEU) 1154 *H Laboratory Tests 08/12 08/12 0338 0338 Hematology WBC (5.0 - 12.0 x10 3/uL) 5.1 RBC (4.70 - 6.10 x10 6/uL) 3.95 L Hgb (14.0 - 18.0 g/dL) 11.9 L Hct (37.0 - 49.0 %) 35.3 L MCV (80 - 94 fL) 89 MCH (27 - 31 pg) 30.1 MCHC (33 - 37 g/dL) 33.7 RDW (11.5 - 15.5 %) 13.5 Plt Count (130 - 400 x10 3/uL) 133 MPV (9.4 - 16.4 fL) 9.3 L Neut % (Auto) (43 - 65 %) 56.2 Lymph % (Auto) (20.5 - 45.5 %) 26.0 [place] % (Auto) (5.5 - 11.7 %) 10.7 Eos % (Auto) (0.9 - 2.9 %) 5.7 H Baso % (Auto) (0.2 - 1.0 %) 1.0 Neut # (Auto) (2.2 - 4.8 x10 3/uL) 2.85 Lymph # (Auto) (1.3 - 2.9 x10 3/uL) 1.32 [place] # (Auto) (0.3 - 0.8 x10 3/uL) 0.54 Eos # (Auto) (0.0 - 0.2 x10 3/uL) 0.29 H Baso # (Auto) (0.0 - 0.1 x10 3/uL) 0.05 Immature Gran % (0.0 - 2.0 %) 0.4 Nucleated RBC % (0 - 1.0 %) 0.0 ESR Westergren (0 - 20 mm/hr) 40 H Laboratory Tests 08/12 0338 Toxicology Vancomycin Peak (20.0 - 26.0 ug/mL) 20.6 Radiology data: Recent Impressions: CAT SCAN - CT CHEST W/CONTRAST 08/13 0752 Report Impression - Status: SIGNED Entered: 08/12/2024 1211 IMPRESSION: 1. Left upper lobe airspace lung disease concerning for pneumonia associated with two small loculated fissural fluid collections. 2. Pulmonary nodule. If the patient has a history of malignancy, follow-up per oncology protocol, otherwise follow-up per Fleischner Society guidelines:For patients at low risk (minimal or absent history of smoking and of other known risk factors), recommend CT Chest at 6-12 months, then consider CT Chest at 18-24 months. For patients at high risk (history of smoking or of other known risk factors), recommend CT Chest at 6-12 months, then CT Chest at 18-24 months. (Reference: Dilma) 3. Left thyroid nodule. Further evaluation with nonemergent thyroid ultrasound is recommended. 4. Ill-defined left hepatic lesion. Please see detailed description and recommendations on recent abdominal CT. References: Dilma Adorno, et al. Guidelines for Management of Incidental Pulmonary Nodules Detected on CT Images: From the Fleischner Society 2017. Radiology. 2017;284(1):228-243. Impression By: [email or web address] Traci Salazar MD Free Text Obj Notes Free Text Obj Notes: Physical Exam: Gen: No acute distress Neck: Supple, full range of motion Lungs: Normal breathing sounds CV: RRR, no murmur. Abdomen: Soft, nondistended, upper and middle abd tenderness MSK: Rt foot dressing noted Neuro: Alert Diagnosis, Assessment Plan Free Text DxA P Notes Free text DxA P notes: 74-year-old male with PMH of HTN, HLD, DM, Afib, and recent right first toe amputation 3 days ago, presented to the ED comaplining of Rt foot pain and swelling since surgery, also reported abdominal pain. #Rt foot pain -Hx of osteomyelitis the head of the great toe -S/p Rt hallux amputation on 08/07 -Obtain Bcx and wound cx -Start IV ceftriaxone and vancomycin -Consult podiatry,they sign off #PNA on iv abx #LUNG nodule per pulm ct noted #Abdominal pain Hypodensity of the left liver lobe Hypodensity at the tail the pancreas Isolated left intrahepatic biliary dilatation -CT A/p New 2.5 cm hypodensity of the left liver lobe, indeterminate. Suspect associated isolated left intrahepatic biliary dilatation. Differential includes malignancy. Further evaluation can be obtained with liver protocol cross- sectional MRI imaging. Nodular liver contour with enlargement of the left liver lobe, correlate clinically for cirrhosis. 0.9 cm hypodensity at the tail the pancreas. May reflect a pancreatic cyst or IPMN. -Obtain MRI abdomen -Monitor LFT -GI consult HTN -resume Coreg HLD -Statin DM -SSI -Monitor Afib -resuem ELiquis and Coreg -tele dvt ppx:eliquis dispo:mri abd pending at 2222 RPT #:[id number] END OF REPORT [facility] 2024-08-12 11:36:00 [id number] [facility] [id number] [place], [place] [address]y. [address] [place] [address] PATIENT NAME: SEYMOUR SNOW ADMIT DATE: 08/10/24 ACCOUNT NO: [id number] ROOM NO: [facility] AGE: 74 REPORT TYPE: CONSULTATION SEX: M ADMITTING PHYSICIAN:Mary Rojas MD ATTENDING PHYSICIAN:Mary Rojas MD CONSULTATION DATE: 08/12/2024 This is a Twyla Crane, PGY-I dictating on behalf of Sonam Swanson DPM. CHIEF COMPLAINT: Right foot pain. HISTORY OF PRESENT ILLNESS: This is a 74-year-old male with a past medical history of hypertension, hyperlipidemia, diabetes, atrial fibrillation, and a recent right great toe amputation 3 days ago. The patient presented to the emergency department for right foot pain and swelling since the surgery. The patient also reported abdominal pain in the middle of his abdomen, with dull and intermittent nausea. The patient received a chest x-ray with potential intrahepatic biliary dilation. The patient will be receiving a workup for his liver. The patient has no other pedal complaints at this time. The patient denies chills, fever, and vomiting. PAST MEDICAL HISTORY: Hypertension, hyperlipidemia, diabetes, and atrial fibrillation. PAST SURGICAL HISTORY: Right hallux amputation. ALLERGIES: NO KNOWN DRUG ALLERGIES. MEDICATIONS: See chart. REVIEW OF SYSTEMS: A 14-point review of systems was performed. CONSTITUTIONAL: Denies chills, fever, or fatigue. HEENT: Denies hearing loss, blurry vision. RESPIRATORY: Denies cough, shortness of breath, wheezing. CARDIOVASCULAR: Denies chest pain, pain with walking or palpitations. GASTROINTESTINAL: Reports abdominal pain. GENITOURINARY: Denies painful or excessive urine. METABOLIC/ENDOCRINE: Denies cold or heat intolerance. NEUROLOGIC: Denies dizziness, headaches, seizures, tremors. PSYCHIATRIC: Denies anxiety, depression. INTEGUMENTARY: Reports incision on the right foot from a previous hallux amputation. MUSCULOSKELETAL: Denies back pain, joint pain, joint swelling. HEMATOLOGIC: Denies easy bleeding, bruising, lymphedema. IMMUNOLOGIC: Denies allergies. PHYSICAL EXAMINATION: VITAL SIGNS: Temperature 36.7, pulse rate 70, respiratory rate 18, blood PATIENT NAME: SEYMOUR SNOW pressure 163/76, pulse ox 97. GENERAL: A and O x3, in no acute distress. HEENT: Atraumatic and normocephalic. CARDIAC: Normal rate and rhythm. RESPIRATORY: Clear to auscultation. ABDOMEN: Soft, tender. LOWER EXTREMITY FOCUSED PHYSICAL EXAM: VASCULAR: DP/PT pulses nonpalpable, less than 3 seconds capillary refill time, temperature gradient cool to warm distal to proximal. Mild edema. DERMATOLOGIC: Sutures in the right hallux that are intact with skin well approximated. No signs of maceration. No signs of gangrenous changes. Mild erythema and edema. MUSCULOSKELETAL: Muscle strength testing deferred due to the patient's surgeries. Hallux amputation, right foot. NEUROLOGIC: Gross epicritic sensation diminished for light touch and proprioception. LABORATORY DATA: White blood cell count 5.1, hemoglobin 11.9. IMAGING: Right foot x-ray shows soft tissue swelling of the right foot and ankle. Hallux amputation. ASSESSMENT: 1. Status post hallux amputation, right foot. 2. Cellulitis, right foot. 3. Type 2 diabetes mellitus with peripheral neuropathy. 4. Peripheral arterial disease. PLAN: 1. The patient was evaluated and examined at bedside. All questions and concerns from the patient addressed to the patient's satisfaction. 2. Reviewed labs and vital signs. 3. Reviewed imaging. No osteomyelitis. 4. Reviewed arterial Doppler from previous visit showing monophasic flow in the foot arteries. The patient is cleared from the Physiatry standpoint. The patient is to keep dressing clean, dry, and intact. The patient is to be weightbearing as tolerated to the right foot. The patient is to follow up with Dr. Swanson outpatient. We will continue to follow while in-house. Plan discussed with Dr. Swanson. Agree with resident's evaluation and treatment plan. Surgical amputation site stable, follow up with Dr. Swanson outpatient. Dictated By: Twyla Crane DPM for Sonam Swanson DPM Date Dictated: 08/12/2024 11:36:44 Date Transcribed: 08/12/2024 15:23:57 GET/JOSE/YA Receipt ID: [id number] PATIENT NAME: JAYLA SARAHSEYMOUR Authenticated by Twyla Crane DPM R1 On 08/13/2024 09:09:03 AM Authenticated and Edited by Sonam Swanson DPM On 08/15/24 9:23:02 PM at 0925 at 0909 PATIENT NAME: JAYLA SARAHSEYMOUR [facility] 2024-08-12 08:52:00 [facility] Podiatry Progress Note REPORT#:[id number] REPORT STATUS: Signed REPORT INITIALIZATION DATE:08/12/24 TIME: 851 PATIENT: SEYMOUR SNOW UNIT #: [id number] ROOM/BED: [address] : [address] AGE: 74 SEX: M ATTEND: Mary Rojas MD ADM AUTHOR: Twyla Crane DPM R1 REPT SERVICE DT/TIME: 08/12/24851 * ALL edits or amendments must be made on the electronic/computer document * Subjective HPI: patient seen at bedside Objective General VS: Last Documented: Result Date Time Pulse Ox 93 08/12 1202 B/P 151/83 08/12 1202 B/P Mean 105.6 08/12 1202 O2 Delivery Room air 08/12 1202 Temp 98.1 08/12 1202 Pulse 74 08/12 1202 Resp 18 08/12 1202 O2 Flow Rate 2 08/12 0900 PATIENT WEIGHT: Weight (lb): 250 Weight (oz): 8.39 Weight (kg): 113.636 Physical Exam Wound/incision: Location: RIGHT LOWER EXTREMITY FOCUSED PHYSICAL EXAM: VASCULAR: DP/PT pulses nonpalpable, less than 3 seconds capillary refill time, temperature gradient cool to warm distal to proximal. Mild edema. DERMATOLOGIC: sutures intact, skin edges well approximated, no signs of masceration, no gangrenous changes MUSCULOSKELETAL: Muscle strength testing, deferred. Positive pain to palpation. Mild equinus. NEUROLOGIC: Gross epicritic sensation diminished for light touch and proprioception. Diagnosis, Assessment Plan Free Text A P: ASSESSMENT: 1. Status post hallux amputation,right foot. 2. Cellulitis, right foot. 3. Type 2 diabetes mellitus with peripheral neuropathy. 4. Peripheral arterial disease. PLAN: 1. The patient was evaluated and examined at bedside. All questions and concerns from the patient addressed to the patient's satisfaction. 2. Reviewed labs and vital signs. 3. Reviewed imaging: no OM 6. Reviewed arterial Doppler, showing monophasic flow in the foot arteries Patient is cleared from the podiatry standpoint. Patient is to keep dressings clean dry intact. Patient is to be weightbearing as tolerated to the right foot. Patient's follow-up outpatient with Dr. Swanson. Will continue to follow while in house. Plan discussed with Dr. Swanson at 1229 at 6182 RPT #:[id number] END OF REPORT [facility] 2024-08-11 22:50:00 [facility] GE Consultation Note REPORT#:[id number] REPORT STATUS: Signed REPORT INITIALIZATION DATE:08/11/24 TIME: 2249 PATIENT: SEYMOUR SNOW UNIT #: [id number] ROOM[address]BED: [address] : [address] AGE: 74 SEX: M ATTEND: Gonsalo Barber MD ADM AUTHOR: Philippe Harry MD R2 REPT SERVICE DT/TIME: 08/11/242249 * ALL edits or amendments must be made on the electronic/computer document * History of Present Illness HPI: 74 yo M w/ PMH HTN, HLD, DM, afib and recent first toe amputation presented to ED complaining of R foot pain and abdominal pain and nausea. GI is consulted for abdominal pain. THe pain is dull and intermittent. ON exam today he is AFVSS. CT a/p from 08/10 shows new 2.5 cm hypodensity of left liver lobe, suspected isolated L intrahepatic biliary dilatation, nodular contour with enlargement of the left liver lobe, 0.9 cm hypodensity at tail of pancreas. Labs from 08/10 show Tbili 1.3, AST 42. History - Adult longitudinal Past medical history: Reports: Congestive heart failure, Diabetes mellitus, Hypertension, Dyslipidemia. Past surgical history: Reports: Cholecystectomy. Additional surgical history: Neck surgery, 40 years ago Additional family history: none Alcohol use: Denies EtOH use Drug use: Denies recreational drugs Smoking status for patients 13 years old or older: Never Smoker Other social history: Good social support Allergies: Coded Allergies: No Known Allergies (10/26/18) Review of Systems Free Text ROS Notes Free Text ROS Notes: ROS negative unless noted in above HPI of the following systems: constitutional, eyes, HENT, neck, neuro, CV, resp, GI, , msk, skin Objective Physical Exam VS/I O: Last Documented: Result Date Time Pulse Ox 95 08/11 1950 B/P 150/85 08/11 1950 B/P Mean 106.7 08/11 1950 O2 Delivery Nasal cannula 08/11 1950 Temp 98.2 08/11 1950 Pulse 70 08/11 1950 Resp 18 08/11 1950 24 hour I O ending at 0700: 08/11 0700 08/10 1900 Intake Total Output Total Balance Patient 113.636 kg Weight Weight Stated/Reported Measurement Method PATIENT WEIGHT: Weight (lb): 250 Weight (oz): 8.39 Weight (kg): 113.636 General appearance: alert, awake, oriented Neck: full range of motion Cardiovascular: normal capillary refill Respiratory: aerating well Abdomen: distended, non-tender, soft, no guarding, no rebound Extremities: moves all Musculoskeletal: full range of motion Diagnosis, Assessment Plan Free Text DxA P Notes Free Text DxA P Notes: 74 yo M w/ PMH HTN, HLD, DM, afib and recent first toe amputation presented to ED complaining of R foot pain and abdominal pain and nausea. CT a/p remarkable for lesion of liver, lesion of tail of pancreas. Plan: - f/u MRI liver protocol - Zofran for nausea - MMPC - diet as tolerated - GI will follow - Discussed with Dr. Leigh at 2309 RPT #:[id number] END OF REPORT [facility] 2024-08-11 11:00:00 [facility] Consultation Note - Brief REPORT#:[id number] REPORT STATUS: Signed REPORT INITIALIZATION DATE:08/11/24 TIME: 1100 PATIENT: SEYMOUR SNOW UNIT #: [id number] ROOM/BED: [address] : [address] AGE: 74 SEX: M ATTEND: Mary Rojas MD ADM AUTHOR: Twyla Crane DPM R1 REPT SERVICE DT/TIME: 08/11/24 1100 * ALL edits or amendments must be made on the electronic/computer document * History of Present Illness HPI Chief complaint: Right foot pain History - Adult longitudinal Past medical history: Reports: Congestive heart failure, Diabetes mellitus, Hypertension, Dyslipidemia. Past surgical history: Reports: Cholecystectomy. Additional surgical history: Neck surgery, 40 years ago Additional family history: none Alcohol use: Denies EtOH use Drug use: Denies recreational drugs Smoking status for patients 13 years old or older: Never Smoker Other social history: Good social support Allergies: Coded Allergies: No Known Allergies (10/26/18) Brief Consult Note Physical Exam Vitals: Last Documented: Result Date Time Pulse Ox 92 08/11 1125 B/P 132/79 08/11 1125 B/P Mean 96.5 08/11 112 O2 Delivery Room air 08/11 112 Temp 98.1 08/11 1125 Pulse 66 08/11 1125 Resp 18 08/11 1125 Free Text A P: ASSESSMENT: 1. Status post hallux amputation,right foot. 2. Cellulitis, right foot. 3. Type 2 diabetes mellitus with peripheral neuropathy. 4. Peripheral arterial disease. PLAN: 1. The patient was evaluated and examined at bedside. All questions and concerns from the patient addressed to the patient's satisfaction. 2. Reviewed labs and vital signs. 3. Reviewed imaging: no OM 6. Reviewed arterial Doppler, showing monophasic flow in the foot arteries Patient is cleared from the podiatry standpoint. Patient is to keep dressings clean dry intact. Patient is to be weightbearing as tolerated to the right foot. Patient's follow-up outpatient with Dr. Swanson. Will continue to follow while in house. Plan discussed with Dr. Swanson at 1256 at 5582 RPT #:[id number] END OF REPORT [facility] 2024-08-11 08:06:00 ([facility]) Hospitalist Progress Note REPORT#:[id number] REPORT STATUS: Signed REPORT INITIALIZATION DATE:08/11/24 TIME: 805 PATIENT: SEYMOUR SNOW UNIT #: [id number] [address] : [address] AGE: 74 SEX: M ATTEND: Gonsalo Barber MD ADM AUTHOR: Mary Rojas MD REPT SERVICE DT/TIME: 08/11/24 0806 * ALL edits or amendments must be made on the electronic/computer document * Subjective Chief complaint: assumed care today pt seen in [facility] [place] spoke with podiatry resident they clear him for dc ,no need to repeat mri foot HPI: 74-year-old male with PMH of HTN, HLD, DM, PAfib, and recent right first toe amputation 3 days ago, presented to the ED comaplining of Rt foot pain and swelling since surgery, also reported abdominal pain in the middle of his abdomen, dull and intermittent and nausea, denied any fever, chills or other symptoms. In the ED he was hypoxic placed on NC 2 L, labs WBC 7.5, lipase, BNP, trop, and LA WNL, LFT BILT 1.30 H, BILCON 0.6 H*, BILUNC 0.70 , AST 42 H. CXR Persistent irregular curvilinear opacity in the left upper lobe, CT A/p New 2.5 cm hypodensity of the left liver lobe, indeterminate. Suspect associated isolated left intrahepatic biliary dilatation. Differential includes malignancy. Further evaluation can be obtained with liver protocol cross-sectional MRI imaging. Nodular liver contour with enlargement of the left liver lobe, correlate clinically for cirrhosis. 0.9 cm hypodensity at the tail the pancreas. May reflect a pancreatic cyst or IPMN. Review of Systems All systems rev neg: except as noted Free Text ROS Notes Free Text ROS Notes: Negtaive except for above Objective General VS/I O: Vital Signs: Date Time Temp Pulse Resp B/P B/P Pulse O2 O2 Flow FiO2 Mean Ox Delivery Rate 08/11 1950 98.2 70 18 150/85 106.7 95 Nasal cannula 08/11 1816 71 94 08/11 1509 97.9 71 18 128/80 95.8 91 08/11 1125 98.1 66 18 132/79 96.5 92 Room air 08/11 0716 98.1 79 18 149/89 108.6 91 Room air 08/11 0040 97.9 76 18 145/79 100.7 94 Room air 24 hour I O ending at 0700: 08/11 0700 08/10 1900 Intake Total Output Total Balance Patient 113.636 kg Weight Weight Stated/Reported Measurement Method PATIENT WEIGHT: Weight (lb): 250 Weight (oz): 8.39 Weight (kg): 113.636 Medications: Active Meds + DC'd Last 24 Hrs Apixaban (ELIQUIS) 5 MG BID PO Atorvastatin Calcium (LIPITOR) 40 MG DAILY PO Carvedilol (COREG) 3.125 MG BID PO Ceftriaxone Sodium (ROCEPHIN) 2 GM DAILY IV Sterile Water (WATER,STERILE INJ. ) 20 ML Vancomycin HCl (VANCOCIN) 1,000 MG Q12HR IV Sodium Chloride (SODIUM CHLORIDE 0.9%) 250 ML Insulin Human Lispro (Admelog) Low Dose Sliding Scale: *See ADMIN CRIT for DOSE* AC HS SUBQ Dextrose/Water (DEXTROSE 50% SYR) 25 ML ASDIR PRN IV (CKD) Glucagon (GLUCAGON) 1 MG ASDIR PRN IM Acetaminophen (TYLENOL REGULAR) 650 MG Q6H PRN PRN PO Enoxaparin Sodium (LOVENOX) 40 MG Q24H SUBQ (DC) Hydralazine HCl (APRESOLINE) 10 MG Q6H PRN PRN IV Miscellaneous Information (VANCOMYCIN PHARMACY TO DOSE) 1 EACH ASDIR IV (CKD) Naloxone HCl (NARCAN) 0.4 MG Q2M PRN PRN IV Ondansetron HCl (ZOFRAN 4 MG/2 ML INJ) 4 MG Q4H PRN PRN IV Sodium Chloride (SODIUM CHLORIDE 0.9%) 1,000 ML .Q10H IV Physical Exam General appearance: alert, awake, oriented Results Findings/Data: Laboratory Tests 08/11 08/11 08/11 08/11 08/11 1643 1123 0849 0752 0447 Chemistry Sodium (136 - 145 mmol/L) 141 Potassium (3.5 - 5.1 mmol/L) 3.2 L Chloride (98 - 107 mmol/L) 104 Carbon Dioxide (20.0 - 31.0 mmol/L) 31.0 Anion Gap (10 - 20 mmol/L) 9 L BUN (9 - 23 mg/dL) 12 Creatinine (0.55 - 1.30 mg/dL) 1.11 Glomerular Filtr Rate (mL/min) 69 Glucose (74 - 106 mg/dL) 68 L POC Glucose (74 - 106 MG/DL) 87 105 173 H 60 L Calcium (8.7 - 10.4 mg/dL) 9.2 Specimen Hemolysis (0 - 3 Index/DL) 1 Laboratory Tests 08/11 0447 Hematology WBC (5.0 - 12.0 x10 3/uL) 7.3 RBC (4.70 - 6.10 x10 6/uL) 3.74 L Hgb (14.0 - 18.0 g/dL) 11.4 L Hct (37.0 - 49.0 %) 33.7 L MCV (80 - 94 fL) 90 MCH (27 - 31 pg) 30.5 MCHC (33 - 37 g/dL) 33.8 RDW (11.5 - 15.5 %) 13.5 Plt Count (130 - 400 x10 3/uL) 142 MPV (9.4 - 16.4 fL) 9.4 Neut % (Auto) (43 - 65 %) 58.5 Lymph % (Auto) (20.5 - 45.5 %) 25.7 [place] % (Auto) (5.5 - 11.7 %) 11.9 H Eos % (Auto) (0.9 - 2.9 %) 2.6 Baso % (Auto) (0.2 - 1.0 %) 1.0 Neut # (Auto) (2.2 - 4.8 x10 3/uL) 4.27 Lymph # (Auto) (1.3 - 2.9 x10 3/uL) 1.87 [place] # (Auto) (0.3 - 0.8 x10 3/uL) 0.87 H Eos # (Auto) (0.0 - 0.2 x10 3/uL) 0.19 Baso # (Auto) (0.0 - 0.1 x10 3/uL) 0.07 Immature Gran % (0.0 - 2.0 %) 0.3 Nucleated RBC % (0 - 1.0 %) 0.0 Laboratory Tests 08/11 1750 Urines Urine Color (Yellow) Light-Yellow Urine Appearance (Clear) Clear Urine pH (5.0 - 8.0) 7.0 Ur Specific [place] (<1.030) 1.012 Urine Protein (Negative mg/dL) NEGATIVE Urine Glucose (UA) (Negative) Normal Urine Ketones (Negative mg/dL) Negative Urine Blood (Negative) Negative Urine Nitrite (Negative) Negative Urine Bilirubin (Negative) Negative Urine Urobilinogen (Negative mg/dL) 2 Ur Leukocyte Esterase (Negative) NEGATIVE Urine RBC (<4 - 5 /HPF) 0-3 Urine WBC (<4 - 5 /HPF) 0-3 Ur Squamous Epith Cells (0 - 5 (RARE) /HPF) 0-5 (RARE) Urine Bacteria (None - Rare /HPF) None Urine Mucus (<Rare /LPF) Rare Radiology data: Recent Impressions: RADIOLOGY - XR FOOT 3 + V RT 08/11 0737 Report Impression - Status: SIGNED Entered: 08/11/2024 0839 IMPRESSION: Soft tissue swelling about the right foot and ankle. Patient is status post amputation of the right 1st phalanges. There may be a tiny focus of air in the soft tissues just distal to the right 1st metatarsal head and cannot exclude component of infectious change in this region. Soft tissue swelling is seen about the right foot and ankle. There is a nondisplaced oblique fracture to the medial aspect of the base of the right 2nd proximal phalanx on AP view. Osteopenia. No other fracture or dislocation. Mild calcaneal spurring at the plantar fascia tendon insertion site. No plain film evidence of osteomyelitis. Impression By: [email or web address] - Terry Feng MD Free Text Obj Notes Free Text Obj Notes: Physical Exam: Gen: No acute distress Neck: Supple, full range of motion Lungs: Normal breathing sounds CV: RRR, no murmur. Abdomen: Soft, nondistended, upper and middle abd tenderness MSK: Rt foot dressing noted Neuro: Alert Diagnosis, Assessment Plan Free Text DxA P Notes Free text DxA P notes: 74-year-old male with PMH of HTN, HLD, DM, Afib, and recent right first toe amputation 3 days ago, presented to the ED comaplining of Rt foot pain and swelling since surgery, also reported abdominal pain. #Rt foot pain -Hx of osteomyelitis the head of the great toe -S/p Rt hallux amputation on 08/07 -Obtain Bcx and wound cx -Start IV ceftriaxone and vancomycin -Consult podiatry #Abdominal pain Hypodensity of the left liver lobe Hypodensity at the tail the pancreas Isolated left intrahepatic biliary dilatation Elevated LFT -CT A/p New 2.5 cm hypodensity of the left liver lobe, indeterminate. Suspect associated isolated left intrahepatic biliary dilatation. Differential includes malignancy. Further evaluation can be obtained with liver protocol cross- sectional MRI imaging. Nodular liver contour with enlargement of the left liver lobe, correlate clinically for cirrhosis. 0.9 cm hypodensity at the tail the pancreas. May reflect a pancreatic cyst or IPMN. -Obtain MRI abdomen -Monitor LFT -GI consult HTN -resume Coreg HLD -Statin DM -SSI -Monitor Afib -resuem ELiquis and Coreg -tele dvt ppx:eliquis dispo:ct chest,mri abd pending at 2145 RPT #:[id number] END OF REPORT [facility] 2024-08-11 06:26:00 [facility] Prog.Note-Vancomycin REPORT#:[id number] REPORT STATUS: Signed REPORT INITIALIZATION DATE:08/11/24 TIME: 625 PATIENT: RICHARD SNOWIO UNIT #: [id number] ROOM/BED: [address] : [address] AGE: 74 SEX: M ATTEND: Mary Rojas MD ADM AUTHOR: Darvin Ann [facility] REPT SERVICE DT/TIME: 08/11/24625 * ALL edits or amendments must be made on the electronic/computer document * See Addendum Vancomycin Vancomycin Medication Therapy Goal: AUC 400-600 mg*hr/L Indication for treatment: SSTI Current therapy: Medication(s) Ordered: Anti-Infective Agents Sig/Mary Start time Last Medication Dose Route Stop Time Status Admin Ceftriaxone Sodium 2 GM DAILY 08/11 899 AC Sterile Water 20 ML IV 08/18 0859 Vancomycin HCl 1,000 MG Q12HR 08/11 09 AC Sodium Chloride 250 ML IV 08/18 0859 Piperacillin Sod/ 3.375 GM X1ED STA 08/10 1858 DC 08/10 Tazobactam Sod IV 08/10 Sodium Chloride 100 ML Vancomycin HCl 2,500 MG X1ED STA 08/10 1858 DC 08/10 Sodium Chloride 500 ML IV 08/10 2056 2322 Ceftriaxone Sodium 2 GM X1ED STA 08/10 1323 DC 08/10 Sterile Water 20 ML IV 08/10 1325 1347 Day of therapy: 1 Labs: Laboratory Test : 08/11 08/10 0447 1342 Chemistry BUN (9 - 23 mg/dL) 12 9 Creatinine (0.55 - 1.30 mg/dL) 1.11 1.16 Hematology WBC (5.0 - 12.0 x10 3/uL) 7.3 7.5 Microbiology: 08/10 1342 FOOT: Wound Culture - RES 08/10 1342 FOOT: Gram Stain - RES 08/10 1342 BLOOD: Blood Culture - RES 08/10 1326 BLOOD: Blood Culture - ORD Treatment plan: consult Rationale: Ordering MD: (GONSALO BARBER) Current antibiotics: As listed above. Dosing Weight - KG: (113.64) A/P * Vancomycin Consult - (SSTI). * (7) Days DOT; Stop (08/18) * (08/11)- WBC (7.3), Tmax (36.6) * Blood culture (08/10) (PENDING) * LD (2.5 GM) - (08/10 @2322) * Will START DOSING REGIMEN AT 1 GM Q12H FOR AN AUC BETWEEN 400 600. * Vancomycin PEAK AND TROUGH DUE 08/12 @0030 @0800. DATE DOT SCR/CRCL LEVELS AUC REGIMEN 08/10 0 LD: 2.5 GM X ONCE 08/11 1 1. MD: 1 GM Q12H 08/12 2 CREDIT RISK REVIEW OFFICER @0030 VT @0800 MD: 1 GM Q12H at 0628 Addendum 1: 08/12/24 1146 by Jennifer Richter [facility] 08/12: 0800 Vanco trough missed - trough rescheduled to 08/12 @ 1999, prior to 2100 dose. Nurse notified. Jennifer Richter PharmD at 1147 RPT #:[id number] END OF REPORT [facility] 2024-08-10 22:49:00 [facility] Hospitalist History Physical REPORT#:[id number] REPORT STATUS: Signed REPORT INITIALIZATION DATE:08/10/24 TIME: 2248 PATIENT: SEYMOUR SNOW UNIT #: [id number] ROOM/BED: [address] : 48 AGE: 74 SEX: M ATTEND: Gonsalo Barber MD ADM AUTHOR: Gonsalo Barber MD REPT SERVICE DT/TIME: 08/10/24 0622 * ALL edits or amendments must be made on the electronic/computer document * History of Present Illness HPI HPI: The patient is 74-year-old male with PMH of HTN, HLD, DM, PAfib, and recent right first toe amputation 3 days ago, presented to the ED comaplining of Rt foot pain and swelling since surgery, also reported abdominal pain in the middle of his abdomen, dull and intermittent and nausea, denied any fever, chills or other symptoms. In the ED he was hypoxic placed on NC 2 L, labs WBC 7.5, lipase, BNP, trop, and LA WNL, LFT BILT 1.30 H, BILCON 0.6 H*, BILUNC 0.70 , AST 42 H. CXR Persistent irregular curvilinear opacity in the left upper lobe, CT A/p New 2.5 cm hypodensity of the left liver lobe, indeterminate. Suspect associated isolated left intrahepatic biliary dilatation. Differential includes malignancy. Further evaluation can be obtained with liver protocol cross-sectional MRI imaging. Nodular liver contour with enlargement of the left liver lobe, correlate clinically for cirrhosis. 0.9 cm hypodensity at the tail the pancreas. May reflect a pancreatic cyst or IPMN. History Past medical history: Reports: Congestive heart failure, Diabetes mellitus, Hypertension, Dyslipidemia. Past surgical history: Reports: Cholecystectomy. Additional surgical history: Neck surgery, 40 years ago Additional family history: none Alcohol use: Denies EtOH use Drug use: Denies recreational drugs Smoking status for patients 13 years old or older: Never Smoker Other social history: Good social support Medication/Allergy-Vaccine Hx Allergies: Coded Allergies: No Known Allergies (10/26/18) Review of Systems Free Text ROS Notes Free Text ROS Notes: Negtaive except for above Objective General VS/I O: Vital Signs: Date Time Temp Pulse Resp B/P B/P Pulse O2 O2 Flow FiO2 Mean Ox Delivery Rate 08/10 1320 36.8 82 18 116/71 85.7 94 08/10 1320 36.8 82 18 116/71 85.7 94 PATIENT WEIGHT: Weight (lb): Weight (oz): Weight (kg): 113.636 Free Text Obj Notes Free Text Obj Notes: Physical Exam: Gen: No acute distress Neck: Supple, full range of motion Lungs: Normal breathing sounds CV: RRR, no murmur. Abdomen: Soft, nondistended, upper and middle abd tenderness MSK: Rt foot dressing Neuro: Alert Diagnosis, Assessment Plan Free Text DxA P Notes Free Text DxA P Notes: The patient is 74-year-old male with PMH of HTN, HLD, DM, Afib, and recent right first toe amputation 3 days ago, presented to the ED comaplining of Rt foot pain and swelling since surgery, also reported abdominal pain. Rt foot pain/concern for infection Hx of osteomyelitis the head of the great toe -S/p Rt hallux amputation on 08/07 -Presented for persistent pain -Obtain MRI of foot -Obtain Bcx and wound cx -Start IV ceftriaxone and vancomycin -Consult podiatry in the morning if MRI concerning Abdominal pain Hypodensity of the left liver lobe Hypodensity at the tail the pancreas Isolated left intrahepatic biliary dilatation Elevated LFT -CT A/p New 2.5 cm hypodensity of the left liver lobe, indeterminate. Suspect associated isolated left intrahepatic biliary dilatation. Differential includes malignancy. Further evaluation can be obtained with liver protocol cross- sectional MRI imaging. Nodular liver contour with enlargement of the left liver lobe, correlate clinically for cirrhosis. 0.9 cm hypodensity at the tail the pancreas. May reflect a pancreatic cyst or IPMN. -Obtain MRI abdomen -Monitor LFT Acute hypoxic respiratory failure -could be 2/2 pna -wean as tolertaed Concern for pneumonia -Bcx -IV antbx as above HTN -resume Coreg HLD -Statin DM -SSI -Monitor Afib -resuem ELiquis and Coreg at 1606 RPT #:[id number] END OF REPORT [facility] 2024-08-10 18:48:00 [facility] EMERGENCY PROVIDER REPORT REPORT#:[id number] REPORT STATUS: Signed DATE:08/10/24 TIME: 1847 PATIENT: SEYMOUR SNOW UNIT #: [id number] ROOM/BED: [address] : [address] AGE: 74 SEX: M PCP PHYS: Seth Lin MD SERVICE AUTHOR: Vitor Coyle MD R2 REP SRV REP SRV TM: 1847 * ALL edits or amendments must be made on the electronic/computer document * Vitor Coyle 08/10/241847: HPI-General Illness Free Text HPI Notes Free Text HPI Notes 74-year-old male with history of high blood pressure, diabetes, cholesterol, recent right first digit amputation on his right foot done 3 days ago presents to the emergency room for complaints of right foot pain and swelling. Patient states he has been taking Eliquis that was prescribed after surgery, as well as doxycycline. Patient denies having fever, nausea, vomiting, and abdominal pain. Patient's son states patient's been having shortness of breath prior to surgery , patient was found to have an O2 saturation of 88% on room air, was started on 2 L nasal cannula with improvement of O2 saturation 94%. Son states patient's been complaining of abdominal pain and has had a poor appetite for the last couple days. General Initial Greet Date/Time 08/10/24 1318 Presentation Chief Complaint right foot pain and swelling Review of Systems ROS Statements All systems rev neg except as marked. Review of Systems Constitutional Denies: Fever. Respiratory Reports: Shortness of breath. Cardiovascular Denies: Chest pain. GI Denies: Abdominal pain, Nausea, Vomiting. Free Text ROS Notes Free Text ROS Notes right foot swelling and pain Past Medical History - Adult Stated Complaint WEAKNESS SOB 88%RA POST OP NO APETITE Allergies Coded Allergies: No Known Allergies (10/26/18) Calculated Suicide Risk (nurs) No risk Past Medical History: Reports: Congestive heart failure, Diabetes mellitus, Hypertension, Dyslipidemia. Past Surgical History: Reports: Cholecystectomy. Additional Surgical History Neck surgery, 40 years ago Additional Family History none Alcohol Use Denies EtOH use Drug Use Denies recreational drugs Smoking status for patients 13 years old or older: Never Smoker Other Social History Good social support Physical Exam Vital Signs Vital Signs First Documented: Result Date Time Pulse Ox 94 08/10 1320 B/P 116/71 08/10 1320 B/P Mean 85.7 08/10 132 Temp 98.2 08/10 132 Pulse 82 08/10 132 Resp 18 08/11 1319 Last Documented: Result Date Time Pulse Ox 94 08/10 1320 B/P 116/71 08/10 1320 B/P Mean 85.7 08/10 1320 Temp 98.2 08/11 1319 Pulse 82 08/10 132 Resp 18 08/11 1319 Review of Vital Signs Reviewed Free Text PE Notes Free Text PE Notes Constitution: awake, alert, cooperative MS Head: atraumatic, normacephalic Eyes: atraumatic, EOMI Ears/Nose/Throat: atraumatic, airway patent MS neck: atraumatic, full ROM Resp/chest: atraumatic, breath sounds heard bilaterally, no rales, no wheezes, speaking in complete sentences, 95% on 2 L nasal cannula, not tachypneic Cardio: normal rate, normal rhythm Abdomen/GI: atraumatic, soft, nontender MS Back: atraumatic, full ROM MS upper extremity: atraumatic, full ROM MS Lower extremity: No obvious deformity of left lower extremity, patient has amputation of his first digit on right foot with surgical incision site intact with baljeet, there is erythema surrounding the surgical site with swelling and patient has tenderness to midfoot, no active drainage from surgical incision site, palpable DP pulse on right foot and confirmed with bedside vascular Doppler with biphasic waveform Skin: warm, dry Neurological: alert, orientedx3, moves all extremities Interpretation Diagnostics Lab Results Interpretation Results Laboratory Tests 08/10/24 1342: [Embedded Image Not Available] Laboratory Tests: 08/10 08/10 1342 1342 Chemistry Sodium (136 - 145 mmol/L) 138 Potassium (3.5 - 5.1 mmol/L) 3.5 Chloride (98 - 107 mmol/L) 101 Carbon Dioxide (20.0 - 31.0 mmol/L) 32.0 H Anion Gap (10 - 20 mmol/L) 9 L BUN (9 - 23 mg/dL) 9 Creatinine (0.55 - 1.30 mg/dL) 1.16 Glomerular Filtr Rate (mL/min) 65 Glucose (74 - 106 mg/dL) 133 H Lactic Acid (0.50 - 1.99 mmol/L) 1.50 Calcium (8.7 - 10.4 mg/dL) 9.6 Total Bilirubin (0.20 - 1.10 mg/dL) 1.30 H Conjugated Bilirubin (0.1 - 0.3 mg/dL) 0.6 H Unconjugated Bilirubin (0 - 1.1 mg/dL) 0.70 AST (0 - 33 U/L) 42 H ALT (10 - 49 U/L) 21 Total Alk Phosphatase (46 - 116 U/L) 100 Troponin I High Sens (0.00 - 54.00 ng/L) 4.88 NT-Pro-B Natriuret Pep (0 - 299 pg/mL) 267 Total Protein (5.7 - 8.2 g/dL) 6.9 Albumin (3.4 - 5.0 g/dL) 3.8 Lipase (12 - 53 U/L) 24 Specimen Hemolysis (0 - 3 Index/DL) 1 Coagulation INR 1.4 PTT ([place]) (23.4 - 37.0 SECONDS) 36.0 PT Patient/Control Mix (9.4 - 12.5 SECONDS) 16.3 H Hematology WBC (5.0 - 12.0 x10 3/uL) 7.5 RBC (4.70 - 6.10 x10 6/uL) 4.30 L Hgb (14.0 - 18.0 g/dL) 13.2 L Hct (37.0 - 49.0 %) 38.6 MCV (80 - 94 fL) 90 MCH (27 - 31 pg) 30.7 MCHC (33 - 37 g/dL) 34.2 RDW (11.5 - 15.5 %) 13.3 Plt Count (130 - 400 x10 3/uL) 183 MPV (9.4 - 16.4 fL) 9.1 L Neut % (Auto) (43 - 65 %) 64.9 Lymph % (Auto) (20.5 - 45.5 %) 20.1 L [place] % (Auto) (5.5 - 11.7 %) 11.1 Eos % (Auto) (0.9 - 2.9 %) 2.4 Baso % (Auto) (0.2 - 1.0 %) 1.2 H Neut # (Auto) (2.2 - 4.8 x10 3/uL) 4.84 H Lymph # (Auto) (1.3 - 2.9 x10 3/uL) 1.50 [place] # (Auto) (0.3 - 0.8 x10 3/uL) 0.83 H Eos # (Auto) (0.0 - 0.2 x10 3/uL) 0.18 Baso # (Auto) (0.0 - 0.1 x10 3/uL) 0.09 Immature Gran % (0.0 - 2.0 %) 0.3 Nucleated RBC % (0 - 1.0 %) 0.0 Microbiology: Date/Time Procedure - Status Source Growth 08/10 134 Wound Culture - COMP FOOT 08/10 1342 Gram Stain - COMP FOOT 08/10 1342 Blood Culture - COMP BLOOD 08/10 1326 Blood Culture - CAN BLOOD Cancelled: Auto-cancelled after 3 days. Recent Impressions: RADIOLOGY - XR CHEST 1 V 08/10 1422 Report Impression - Status: SIGNED Entered: 08/10/2024 1459 IMPRESSION: Persistent irregular curvilinear opacity in the left upper lobe, further assessment with chest CT may be helpful if indicated clinically. Impression By: True Guadarrama MD CAT SCAN - CT ABD PELVIS W/CONT 08/10 1430 Report Impression - Status: SIGNED Entered: 08/10/2024 1549 IMPRESSION: 1. New 2.5 cm hypodensity of the left liver lobe, indeterminate. Suspect associated isolated left intrahepatic biliary dilatation. Differential includes malignancy. Further evaluation can be obtained with liver protocol cross-sectional MRI imaging. 2. Nodular liver contour with enlargement of the left liver lobe, correlate clinically for cirrhosis. 3. 0.9 cm hypodensity at the tail the pancreas. May reflect a pancreatic cyst or IPMN. Reimaging every 2 years for 10 years is recommended. (Reference: [place], 2017) REFERENCES: Iona RODRIGUEZ, et al. Management of Incidental Pancreatic Cysts: A White Paper of the ACR Incidental Findings Committee. J Am Sally Radiol. 2017;14(7):911-923. Impression By: [email or web address] - Dayna Rahman MD MAGNETIC RESONANCE IMAGING - MRI ABDOMEN W WO CONT 08/10 1816 Report Impression - Status: SIGNED Entered: 08/13/2024 0736 IMPRESSION: 1. Liver cirrhosis with 2.5 cm focus lateral left lobe may reflect hepatocellular carcinoma; cholangiocarcinoma or metastasis is not excluded. Correlate with alpha fetoprotein. 2. Portal hypertension with splenic varices. Trace ascites. 3. Small cystic lesion tail of the pancreas. Follow-up MRI pancreas protocol every 2 years x 5 if no change. 4. Changes of chronic kidney disease. 5. Trace pleural effusions bilaterally. Impression By: Apple.JOSE Hansen MD ECG #1 Interpretation Text/Dict Note Normal sinus rhythm with a rate of 85, SC interval within normal limits, QRS interval within normal limits, QTc prolonged, left axis deviation, no STEMI, EKG reviewed interpreted by me and ED physician. EKG done on 08/10/2024 at 1339 Re-Evaluation MDM Free Text MDM Notes Additional Text 74-year-old male with history of high blood pressure, diabetes, recent amputation of right first digit of foot 3 days ago presents to the emergency room for right foot pain and swelling. Patient was started on Eliquis and doxycycline, states he has been taking his medications. Based off physical exam and assessment we will order CBC, BMP, troponin, lactic acid, blood cultures, chest x-ray, CT abdomen pelvis to assess for DDx but not limited to cellulitis of surgical site versus infectious process versus abscess versus neuropathy versus pain status post surgery. Patient's son also reports patient's been having shortness of breath prior to surgery, stating whenever he gets sick he needs oxygen, pneumonia versus pleural effusion versus viral infection Labs and imaging reviewed by me and ED physician. WBC 7.5 no concern for leukocytosis, hemoglobin 13.2 no need for transfusion, electrolytes within normal limits, creatinine 1.16, lactic acid 1.5 within normal limits, troponin negative, lipase negative, per radiology chest x-ray shows persistent irregular curvilinear opacity in the left upper lobe, per radiology CT abdomen/pelvis - New 2.5 cm hypodensity of the left liver lobe, indeterminate. Suspect associated isolated left intrahepatic biliary dilatation. Differential includes malignancy. Further evaluation can be obtained with liver protocol cross-sectional MRI imaging, Nodular liver contour with enlargement of the left liver lobe, correlate clinically for cirrhosis, 0.9 cm hypodensity at the tail the pancreas. May reflect a pancreatic cyst or IPMN. Reimaging every 2 years for 10 years is recommended. Provider in triage ordered labs and imaging. Assessed patient. Ordered vancomycin. Ordered Zosyn. Discussed plans for admission with patient and patient's son, they agree with plan. Spoke with hospitalist regarding plans for admission, admission accepted at this time. ED Course Medication(s) Ordered Medication(s) Ordered: Anti-Infective Agents Sig/Mary Start time Last Medication Dose Route Stop Time Status Admin Piperacillin Sod/ 3.375 GM X1ED STA 08/10 185 DC 08/10 Tazobactam Sod IV 08/10 192 220 Sodium Chloride 100 ML Vancomycin HCl 2,500 MG X1ED STA 08/10 185 DC Sodium Chloride 500 ML IV 08/10 2056 Ceftriaxone Sodium 2 GM X1ED STA 08/10 1323 DC 08/10 Sterile Water 20 ML IV 08/10 1325 1347 Diagnostic Agents Sig/Mary Start time Last Medication Dose Route Stop Time Status Admin Iopamidol 80 ML .STK-MED ONE 08/10 1522 DC 08/10 IV 08/10 1523 1522 Electrolytic, Caloric, And Eli Sig/Mary Start time Last Medication Dose Route Stop Time Status Admin Lactated Ringer's 500 ML X1ED STA 08/10 1323 DC 08/10 IV 08/10 1422 1348 Patient Discharge Departure Vital Signs/Condition Vital Signs First Documented: Result Date Time Pulse Ox 94 08/10 1320 B/P 116/71 08/10 1320 B/P Mean 85.7 08/10 1320 Temp 98.2 08/10 1320 Pulse 82 08/10 1320 Resp 18 08/10 1320 Last Documented: Result Date Time Pulse Ox 94 08/10 1320 B/P 116/71 08/10 1320 B/P Mean 85.7 08/10 1320 Temp 98.2 08/10 1320 Pulse 82 08/10 1320 Resp 18 08/10 1320 All vital signs available at the time of this entry have been reviewed. Clinical Impression Clinical Impression Primary Impression: Cellulitis of right foot Disposition Decision Hospitalize Hosp Physician Name Gonsalo Barber MD Hosp Physician Hospitalist Request Time 1942 Request Date 08/10/24 )( Accepts Hospitalization Yes )( Accepted Time 1942 )( Accepted Date 08/10/24 Call Information will see patient, agrees with eval, agrees with plan Discharge/Care Plan Counseled Regarding Diagnosis, Lab results, Imaging studies, Need for admission Maurice Pruitt 08/18/24 1520: Past Medical History - Adult Home Medications Active Scripts ACETAMINOPHEN (TYLENOL) 650 MG PO Q8HR PRN pain BISACODYL EC (DULCOLAX EC) 10 MG PO DAILY PRN PRN CONSTIPATION APIXABAN (ELIQUIS) 5 MG PO BID 30 Days #60 TAB Ref 1 Prov: 08/08/24 FAMOTIDINE (PEPCID) 20 MG PO BID FAMOTIDINE (PEPCID) 20 MG PO BID #60 TAB Prov: 10/19/19 BUDESONIDE (PULMICORT) 0.25 MG INH RTBID BUDESONIDE (PULMICORT) 0.25 MG INH RTBID #2 ML Prov: 10/07/22 PROMETHAZINE (PHENERGAN) 12.5 MG PO BID PROMETHAZINE (PHENERGAN) 12.5 MG PO BID #60 TAB Prov: 10/07/22 Discontinued Scripts DOXYCYCLINE HYCLATE (VIBRAMYCIN) 100 MG PO Q12H 14 Days #28 CAPS Prov: 08/08/24 DC: 08/14/24 1129 LOPERAMIDE (IMODIUM) 2 MG PO BID PRN PRN DIARRHEA LOPERAMIDE (IMODIUM) 2 MG PO BID PRN PRN DIARRHEA #30 CAP Prov: 10/10/22 DC: 08/14/24 1127 Patient stopped taking MAGNESIUM OXIDE (MAG-OXIDE) 400 MG PO TID MAGNESIUM OXIDE (MAG-OXIDE) 400 MG PO TID #30 TAB Prov: 10/10/22 DC: 08/14/24 1128 Patient stopped taking Reported Medications PYRIDOXINE (VITAMIN B-6) 50 MG PO DAILY ATORVASTATIN (LIPITOR) 40 MG PO DAILY carvediloL 3.125 MG PO BID metFORMIN (GLUCOPHAGE) 1,000 MG PO BID LOSARTAN (COZAAR) 50 MG PO DAILY Physical Exam Basic Physical Exam Basic PE GEN: Well appearing/NAD, HEAD: Atraumatic/NC, EYES: PERRL, conj clear, ENT: Membranes moist, NECK: Supple, RESP: No resp distress, CV: Reg rate rhythm, ABD: Soft/non-tender, EXT: No gross abnormality, SKIN: No rashes, warm/ dry, NEURO: alert oriented, NEURO: gross movement NL, PSYCH: NL thought content Patient Discharge Departure Discharge/Care Plan (Auto) Prescriptions Current Visit Scripts AMOXICILLIN/CLAV K (AUGMENTIN 500/125 MG) 500 MG PO Q12H AMOXICILLIN/CLAV K (AUGMENTIN 500/125 MG) 500 MG PO Q12H #14 TABS DOXYCYCLINE HYCLATE (VIBRAMYCIN) 100 MG PO Q12H 14 Days #28 CAPS MAGNESIUM OXIDE 500 MG PO DAILY MAGNESIUM OXIDE 500 MG PO DAILY #14 TABS guaiFENesin ER (MUCINEX) 600 MG PO Q12H PRN PRN COUGH guaiFENesin ER (MUCINEX) 600 MG PO Q12H PRN PRN COUGH #20 TABS FOR CONGESTION ACETAMINOPHEN/CODEINE (TYLENOL WITH CODEINE #3 300/30 MG) 1 TAB PO TID PRN SEVERE PAIN ACETAMINOPHEN/CODEINE (TYLENOL WITH CODEINE #3 300/30 MG) 1 TAB PO TID PRN SEVERE PAIN #10 TABS Supervising Physician Note Resident Saw Pt This patient was seen by a resident. I have personally seen the patient, performed the critical or dobbs portions of the service, and participated in the management of the patient. I have reviewed and agree with the resident's note, and I have reviewed all labs, ECGs, and imaging studies or reports. I agree with this resident's findings, exam and plan. at 2223 at 4120 RPT #:[id number] END OF REPORT [facility] 2024-08-10 13:39:00 [id number] [facility] [address] [place] [address] PATIENT NAME: SEYMOUR SNOW ADMIT DATE: 08/10/24 ACCOUNT NO: [id number] ROOM NO: C.401T AGE: 74 REPORT TYPE: ELECTROCARDIOGRAM SEX: M ADMITTING PHYSICIAN:Mary Rojas MD ATTENDING PHYSICIAN:Mary Rojas MD Order: [id number] Test Reason : Test Date/Time Stamp: FriAug 10 2024 13:39:23 Blood Pressure : / mmHG Vent. Rate : 085 BPM Atrial Rate : 085 BPM P-R Int : 172 ms QRS Dur : 108 ms QT Int : 378 ms P-R-T Axes : 037 -58 144 degrees QTc Int : 449 ms Normal sinus rhythm Left axis deviation Cannot rule out Anterior infarct , age undetermined ST and T wave abnormality, consider inferolateral ischemia Abnormal ECG Confirmed by Hnerik Forbes ([id number]) on 08/11/2024 3:48:17 PM Referred By: Self Referred Confirmed by:Henrik Forbes at 1548 PATIENT NAME: SEYMOUR SNOW [facility] 2024-08-10 13:27:00 [facility] EMERGENCY PROVIDER REPORT REPORT#:[id number] REPORT STATUS: Signed DATE:08/10/24 TIME: 1327 PATIENT: SEYMOUR SNOW UNIT #: [id number] ROOM/BED: : 48 AGE: 74 SEX: M PCP PHYS: Seth Lin MD SERVICE DT: AUTHOR: Halley Feldman APRN REP SRV REP SRV TM: 1327 * ALL edits or amendments must be made on the electronic/computer document * Provider in Triage - Adult Provider in Triage Initial Greet Date/Time 08/10/24 1318 Greet Note I have greeted and performed a focused rapid initial assessment of this patient. A comprehensive ED assessment and evaluation of the patient, analysis of all test results, and completion of the medical decision-making process will be conducted by additional ED providers. Free Text PIT Notes Free Text PIT Notes Patient is a 74-year-old male presents to the emergency room for increased foot pain, nausea, vomiting, diffuse abdominal pain. He reports pain currently 8 out of 10. Denies any chest pain, shortness of breath, dizziness. Reports subjective fevers. Denies any recent sick contacts, travel. PCP: Unknown PMHX: Diabetes, hypertension, hyperlipidemia, congestive heart failure PSHX: Right great toe amputation Social: Denies Allergies: Denies General/Const: No acute distress Respiratory/Chest: No respiratory distress Neurologic: Alert, Oriented X3 Right lower extremity pulses present via Doppler dorsal and PT edema present +2 I have greeted and performed a focused rapid initial assessment of this patient. A comprehensive ED assessment and evaluation of the patient, analysis of all test results, and completion of the medical decision-making process will be conducted by additional ED providers. Notice: Parts of this note were created using [employer] speech recognition dictation software. All things were made to correct any errors at the time of dictation, however there may be some errors present in the instructional material director that were inadvertently overlooked during the dictation. PMH-Provider in Triage Stated Complaint WEAKNESS SOB 88%RA POST OP NO APETITE Allergies Coded Allergies: No Known Allergies (10/26/18) Home Medications Active Scripts ACETAMINOPHEN (TYLENOL) 650 MG PO Q8HR PRN pain BISACODYL EC (DULCOLAX EC) 10 MG PO DAILY PRN PRN CONSTIPATION APIXABAN (ELIQUIS) 5 MG PO BID 30 Days #60 TAB Ref 1 Prov: 08/08/24 DOXYCYCLINE HYCLATE (VIBRAMYCIN) 100 MG PO Q12H 14 Days #28 CAPS Prov: 08/08/24 FAMOTIDINE (PEPCID) 20 MG PO BID FAMOTIDINE (PEPCID) 20 MG PO BID #60 TAB Prov: 10/19/19 LOPERAMIDE (IMODIUM) 2 MG PO BID PRN PRN DIARRHEA LOPERAMIDE (IMODIUM) 2 MG PO BID PRN PRN DIARRHEA #30 CAP Prov: 10/10/22 MAGNESIUM OXIDE (MAG-OXIDE) 400 MG PO TID MAGNESIUM OXIDE (MAG-OXIDE) 400 MG PO TID #30 TAB Prov: 10/10/22 BUDESONIDE (PULMICORT) 0.25 MG INH RTBID BUDESONIDE (PULMICORT) 0.25 MG INH RTBID #2 ML Prov: 10/07/22 PROMETHAZINE (PHENERGAN) 12.5 MG PO BID PROMETHAZINE (PHENERGAN) 12.5 MG PO BID #60 TAB Prov: 10/07/22 Discontinued Scripts CEFDINIR (OMNICEF) 300 MG PO Q12H 7 Days #14 CAPS Prov: 05/27/22 DC: 08/08/24923 DC prior to admit AZITHROMYCIN (ZITHROMAX) 500 MG PO DAILY 5 Days #5 TABS Prov: 05/27/22 DC: 08/08/24 0924 DC prior to admit traMADol (ULTRAM) 50 MG PO Q6H PRN PRN PAIN traMADol (ULTRAM) 50 MG PO Q6H PRN PRN PAIN #28 TAB Prov: 10/19/19 DC: 08/08/24 1230 Discontinued as per FUROSEMIDE (LASIX) 20 MG PO QAM FUROSEMIDE (LASIX) 20 MG PO QAM #30 TAB Prov: 10/19/19 DC: 08/08/24 1227 DC prior to admit MEGESTROL (MEGACE) 40 MG PO DAILY MEGESTROL (MEGACE) 40 MG PO DAILY #30 TAB Prov: 10/19/19 DC: 08/08/24 0926 Discontinued as per DIGOXIN (LANOXIN) 0.125 MG PO DAILY DIGOXIN (LANOXIN) 0.125 MG PO DAILY #30 TAB Prov: 10/10/22 DC: 08/08/24 1225 DC prior to admit POTASSIUM CHLORIDE ER (KLOR-CON M20) 20 MEQ PO DAILY POTASSIUM CHLORIDE ER (KLOR-CON M20) 20 MEQ PO DAILY #14 TAB Prov: 10/10/22 DC: 08/08/241226 DC prior to admit METOPROLOL TARTRATE (LOPRESSOR) 25 MG PO Q8HR METOPROLOL TARTRATE (LOPRESSOR) 25 MG PO Q8HR #90 TAB Prov: 10/10/22 DC: 08/08/241226 Discontinued as per ETHAMBUTOL 1,600 MG PO DAILY ETHAMBUTOL 1,600 MG PO DAILY #30 TAB Prov: 10/07/22 DC: 08/08/24924 DC prior to admit NITROGLYCERIN (NITROSTAT) 0.4 MG SL Q5M PRN PRN CHEST PAIN NITROGLYCERIN (NITROSTAT) 0.4 MG SL Q5M PRN PRN CHEST PAIN #100 TAB Prov: 10/07/22 DC: 08/08/24 122 DC prior to admit ISONIAZID 300 MG PO DAILY ISONIAZID 300 MG PO DAILY #30 TAB Prov: 10/07/22 DC: 08/08/24924 DC prior to admit PYRAZINAMIDE 1,500 MG PO DAILY PYRAZINAMIDE 1,500 MG PO DAILY #30 TAB Prov: 10/07/22 DC: 08/08/24924 DC prior to admit RIFABUTIN (MYCOBUTIN) 300 MG PO DAILY 30 Days #60 CAPS Prov: 10/09/22 DC: 08/08/24924 DC prior to admit CEFDINIR (OMNICEF) 300 MG PO Q12HR 7 Days #14 CAP Prov: 05/27/22 DC: 08/08/24 0924 DC prior to admit Reported Medications PYRIDOXINE (VITAMIN B-6) 50 MG PO DAILY ATORVASTATIN (LIPITOR) 40 MG PO DAILY carvediloL 3.125 MG PO BID metFORMIN (GLUCOPHAGE) 1,000 MG PO BID LOSARTAN (COZAAR) 50 MG PO DAILY Discontinued Reported Medications LOSARTAN (COZAAR) 50 MG PO DAILY 30 Days #30 DC: 08/08/24 0925 ATORVASTATIN (LIPITOR) 40 MG PO DAILY 30 Days #30 DC: 08/08/24 0925 carvediloL metFORMIN (GLUCOPHAGE) 1,000 MG PO BID 30 Days #60 DC: 08/08/24 1225 glipiZIDE (GLUCOTROL) 5 MG PO DAILY 30 Days #30 DC: 08/08/24 1227 APIXABAN (ELIQUIS) 5 MG PO BID glipiZIDE (GLUCOTROL) 5 MG PO AC LOSARTAN (COZAAR) 50 MG PO DAILY ATORVASTATIN (LIPITOR) 40 MG PO DAILY glipiZIDE (GLUCOTROL) 5 MG PO DAILY Past Medical History: Reports: Congestive heart failure, Diabetes mellitus, Hypertension, Dyslipidemia. Past Surgical History: Reports: Cholecystectomy. Additional Surgical History Neck surgery, 40 years ago Alcohol Use Denies EtOH use Drug Use Denies recreational drugs Smoking status: Smoking status for patients 13 years old or older: Never Smoker Other Social History Good social support at 1341 RPT #:[id number] END OF REPORT [facility] 2024-08-08 13:02:00 [facility]) Infectious Dis. Progress Note REPORT#:[id number] REPORT STATUS: Signed REPORT INITIALIZATION DATE:08/08/24 TIME: 1302 PATIENT: SEYMOUR SNOW UNIT #: [id number] ROOM/BED: [address] : [address] AGE: 74 SEX: M ATTEND: Vanessa Nur MD ADM AUTHOR: Raghav Johnson MD REPT SERVICE DT/TIME: 08/08/24 1302 * ALL edits or amendments must be made on the electronic/computer document * Subjective HPI: Afebrile Objective Physical Exam Cardiovascular: normal heart sounds, regular rate rhythm Respiratory: clear to auscultation Abdomen: soft Extremities: no edema Diagnosis, Assessment Plan Free Text A P: - Right great toe cellulitis with underlying osteomyelitis involving the first distal phalanx and proximal phalanx septic joint -Elevated inflammatory markers -BARAK -Uncontrolled diabetes mellitus with hemoglobin A1c of 9 recs MRI showing "small abscess in the dorsal and medial soft tissues of the great toe at the level of the interphalangeal joint. Osteomyelitis of the head of the great toe proximal phalanx and base of the distal phalanx. Pathologic fracture/fragmentation of the medial base of the great toe distal phalanx. First interphalangeal joint effusion which may relate to septic arthritis. - on cefepime and vancomycin s/p R hallux amputation on 08/07, wound cult and path is pending. ok to dc on po doxycyline for 2 weeks and follow up in office. -Continue current care. Strict glycemic control. Thank you for the consult. Will follow. at 1036 RPT #:[id number] END OF REPORT [facility] 2024-08-08 12:44:00 [facility] REPORT#:[id number] REPORT STATUS: Signed REPORT INITIALIZATION DATE:08/08/24 TIME: 1243 PATIENT: MYA SNOWNCIO UNIT #: [id number] ROOM/BED: [address] : [address] AGE: 74 SEX: M ATTEND: Vanessa Nur MD ADM AUTHOR: Alphonso Godfrey MD R3 REPT SERVICE DT/TIME: 08/08/24 1244 * ALL edits or amendments must be made on the electronic/computer document * Alphonso Godfrey 08/08/24 1244: General Information Discharge date: 08/08/24 Discharge diagnosis: See assessment/plan below Hospital course: This is a 74 year old male with PMHx of DM, HTN, paroxysmal AFib who presented to hospital due to 1 month history of progressive pain in his R great toe. Was found to have osteomyelitis the head of the great toe proximal phalanx and base of the distal phalanx on MRI imaging. Podiatry was consulted who performed a hallux amputation without intraoperative complications. The patient was started on broad spectrum antibiotics (cefepime and vancomycin) per ID recs during hospitalization. The patient was cleared for discharge on oral antibiotics ( doxycycline) by both podiatry and infectious disease teams. He will need to followup with infectious disease in 2-3 weeks to discuss culture results and possible need for further antibiotics. Will need to followup with podiatry in 1 -2 weeks for further care regarding his amputation. He is allowed to weightbear as tolerated to his right foot. He is being continued on his previous home medication including his eliquis for atrial fibrillation. Free Text DxA P Notes Free text DxA P notes: 74-year-old male with past medical history of hypertension, type 2 diabetes mellitus, CAD, A-fib, TB status posttreatment, possible CHF? Presented to the ED complaining of worsening right foot pain and was admitted for concerns of osteomyelitis. #Diabetic foot wound of right great toe complicated with right great toe osteomyelitis/Possible Septic Joint Patient with history of diabetes mellitus and prior diabetic foot wound presenting complaining of worsening right toe pain, pressure ulcer of right great toe present Foot XR with on admission 1. Osteomyelitis is suspected involving the medial base of the first distal phalanx and the distal medial corner of the first proximal phalanx. 2. Joint space widening at the first interphalangeal joint raises concern for possible septic joint. 3. No soft tissue gas is identified. Lactic acid had jumped up to 3.2, now downtrending to 2.3. ESR and CRP elevated at 30 and 32 respectively -Podiatry on board, recommendations appreciated -MRI: soft tissue swelling in great toe extending to dorsum of foot. small abscess in dorsal and medial soft tissue. Osteomyelitis of the head of great toe proximal phalans. Joint effusion which may relate to septic arthritis. -NM bone scan: focal increaed uptake within the 1st toe consistent with tiptake within active infectious/inflammatoyr change -Continue Vanco and cefepime -ID consulted, recs appreciated -Follow-up blood cultures -s/p R hallux amputation 08/06 with podiatry #UTI Patient with complaints of polyuria and pelvic fullness with UA showing leukocyte esterase positive 1+, WBCs 12-20, no bacteria -Follow-up urine culture: no growth at 24 hours -Patient already on appropriate antibiotics #Type 2 diabetes mellitus with peripheral neuropathy Patient with history of type 2 diabetes mellitus A1c is 9.3 -LDSSI -Can start scheduled Lantus and mealtime lispro depending on utilization of LDSSI #Hypercalcium (resolved) -Continue monitor on a.m. labs #Hyperbilirubinemia - resolved Patient with bilirubin 1.6 on admission. Denying any abdominal pain discomfort -reseolved t bili wnl #History of hypertension Patient is on Coreg 3.125 mg twice daily, losartan 50 mg daily -resumed home meds #CAD Patient with history of CAD -Continue home aspirin and atorvastatin #Nausea #abdominal pain -KUB orderd - nonobstructive bowel gas pattern with several prominent gas-filled small bowel loops -PPI started -simethicone -zofran prn -added senna to bowel regimen CODE STATUS: Full code DVT px - Lovenox Diet: Carb consistent NOK: Navdeep Dickerson (son) [phone] Dispo: Pending clinical progress and possible procedure Plan: -s/p R hallux amputation -Continue Vanco and cefepime -PT/OT -f/u ID and podiatry recs -monitor for fevers Discussed with attending Med Rec Med Rec Discharge meds: Stop taking the following medications: MEGESTROL (MEGACE) 40 MG TAB 40 MILLIGRAM ORAL DAILY. Qty = 30 traMADol (ULTRAM) 50 MG TAB 50 MILLIGRAM ORAL EVERY 6 HOURS NEEDED. as needed for PAIN Qty = 28 FUROSEMIDE (LASIX) 20 MG TAB 20 MILLIGRAM ORAL EVERY MORNING. Qty = 30 LOSARTAN (COZAAR) 50 MG TAB 50 MILLIGRAM ORAL DAILY. ATORVASTATIN (LIPITOR) 40 MG TAB 40 MILLIGRAM ORAL DAILY. glipiZIDE (GLUCOTROL) 5 MG TAB 5 MILLIGRAM ORAL DAILY. CEFDINIR (OMNICEF) 300 MG CAP 300 MILLIGRAM ORAL EVERY 12 HOURS. Days = 7 Qty = 14 LOSARTAN (COZAAR) 50 MG TAB 50 MILLIGRAM ORAL DAILY. Days = 30 Qty = 30 ATORVASTATIN (LIPITOR) 40 MG TAB 40 MILLIGRAM ORAL DAILY. Days = 30 Qty = 30 carvediloL (carvediloL) 3.125 MG TAB Days = 30 Qty = 60 metFORMIN (GLUCOPHAGE) 1,000 MG TAB 1,000 MILLIGRAM ORAL TWICE DAILY. Days = 30 Qty = 60 glipiZIDE (GLUCOTROL) 5 MG TAB 5 MILLIGRAM ORAL DAILY. Days = 30 Qty = 30 CEFDINIR (OMNICEF) 300 MG CAP 300 MILLIGRAM ORAL EVERY 12 HOURS. Days = 7 Qty = 14 AZITHROMYCIN (ZITHROMAX) 500 MG TAB 500 MILLIGRAM ORAL DAILY. Days = 5 Qty = 5 glipiZIDE (GLUCOTROL) 5 MG TAB 5 MILLIGRAM ORAL BEFORE MEALS. ETHAMBUTOL (ETHAMBUTOL) 400 MG TAB 1,600 MILLIGRAM ORAL DAILY. Qty = 30 ISONIAZID (ISONIAZID) 300 MG TAB 300 MILLIGRAM ORAL DAILY. Qty = 30 PYRAZINAMIDE (PYRAZINAMIDE) 500 MG TAB 1,500 MILLIGRAM ORAL DAILY. Qty = 30 NITROGLYCERIN (NITROSTAT) 0.4 MG TAB.SL 0.4 MILLIGRAM SUBLINGUAL EVERY 5 MINUTES NEEDED. as needed for CHEST PAIN Qty = 100 RIFABUTIN (MYCOBUTIN) 150 MG CAP 300 MILLIGRAM ORAL DAILY. Days = 30 Qty = 60 DIGOXIN (LANOXIN) 125 MCG TAB 0.125 MILLIGRAM ORAL DAILY. Qty = 30 POTASSIUM CHLORIDE ER (KLOR-CON M20) 20 MEQ TAB.SR 20 MILLIEQUIVALENT ORAL DAILY. Qty = 14 METOPROLOL TARTRATE (LOPRESSOR) 25 MG TAB 25 MILLIGRAM ORAL EVERY 8 HOURS. Qty = 90 Continue taking these medications: ACETAMINOPHEN (TYLENOL) 325 MG TAB 650 MILLIGRAM ORAL EVERY 8 HOURS. as needed for pain Days = 30 BISACODYL EC (DULCOLAX EC) 5 MG TAB.DR 10 MILLIGRAM ORAL DAILY NEEDED. as needed for CONSTIPATION Days = 30 FAMOTIDINE (PEPCID) 20 MG TAB 20 MILLIGRAM ORAL TWICE DAILY. Qty = 60 carvediloL (carvediloL) 3.125 MG TAB 3.125 MILLIGRAM ORAL TWICE DAILY. metFORMIN (GLUCOPHAGE) 1,000 MG TAB 1,000 MILLIGRAM ORAL TWICE DAILY. Instructions: TAKE WITH MEALS ATORVASTATIN (LIPITOR) 40 MG TAB 40 MILLIGRAM ORAL DAILY. Comments: TAKE 1 TABLET BY MOUTH ONCE DAILY; #90 - SIG Obtained From [employer] PYRIDOXINE (VITAMIN B-6) 50 MG TAB 50 MILLIGRAM ORAL DAILY. LOSARTAN (COZAAR) 50 MG TAB 50 MILLIGRAM ORAL DAILY. PROMETHAZINE (PHENERGAN) 12.5 MG TAB 12.5 MILLIGRAM ORAL TWICE DAILY. Qty = 60 BUDESONIDE (PULMICORT) 0.5 MG/2 ML NEB 0.25 MILLIGRAM INHALATION RT - TWICE DAILY. Qty = 2 LOPERAMIDE (IMODIUM) 2 MG CAP 2 MILLIGRAM ORAL TWICE DAILY NEEDED. as needed for DIARRHEA Qty = 30 MAGNESIUM OXIDE (MAG-OXIDE) 400 MG TAB 400 MILLIGRAM ORAL THREE TIMES A DAY. Qty = 30 APIXABAN (ELIQUIS) 5 MG TAB 5 MILLIGRAM ORAL TWICE DAILY. Days = 30 Qty = 60 This prescription has been renewed Start taking the following new medications: DOXYCYCLINE HYCLATE (VIBRAMYCIN) 100 MG CAP 100 MILLIGRAM ORAL EVERY 12 HOURS. Days = 14 Qty = 28 No Refills Objective Head/Eyes: atraumatic, clear cornea, EOMI, normal conjunctiva/sclera, normal eyelids/periorb., normocephalic, PERRL ENT: normal dentition, normal ear left, normal ear right, normal nose, normal pharynx, normal sinus Neck: full range of motion, non-tender, supple/no meningismus, no JVD Cardiovascular: normal capillary refill, normal heart sounds, regular rate rhythm Respiratory: clear to auscultation, symmetric expansion, no distress Abdomen: tenderness, normal bowel sounds, soft, no distention, no guarding, no rebound Rectal: not indicated Extremities: moves all, normal capillary refill, normal range of motion, no edema Musculoskeletal: normal inspection Neuro/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: alert, oriented X 3 Skin: r foot swelling w/ darkening of skin R foot wrapped up s/p R hallux amputation Psychiatry: normal affect, normal judgment/insight, normal mood, not homicidal, not suicidal, no hallucinations Discharge Instructions PCP Discharge to: Home/Self Care Additional Discharge Routines: PCP Follow-Up, Client Liaison Follow-Up Diet: Diabetic Follow-up Appointments PCP follow-up: PCP: Seth Lin MD PCP follow up timeframe: In 1-2 weeks Special instructions: S/p amputation Will need to followup with ID and podiatry, patient informed Consulting provider 1: Provider 1: Raghav Johnson MD Specialty: Infectious Disease Consult follow up timeframe: In 2-3 weeks Consulting provider 2: Provider 2: Sonam Swanson DPM Specialty: Podiatry Follow up timeframe: In 1-2 weeks Quality: Discharge Current Medications Current medication review: I attest that the foregoing medication list in the medical record is true, accurate, and complete to the best of my knowledge. Vanessa Nur 08/16/24 1626: Attestations Teaching Physician Attestation F/U visit w/o resident: I personally saw the patient and reviewed the resident's note. I . . . agree with the resident's findings and plan. at 0330 at 1626 RPT #:[id number] END OF REPORT [facility] 2024-08-08 08:23:00 [facility]) Podiatry Progress Note REPORT#:[id number] REPORT STATUS: Signed REPORT INITIALIZATION DATE:08/08/24 TIME: 822 PATIENT: SEYMOUR SNOW UNIT #: [id number] ROOM/BED: [address] : [address] AGE: 74 SEX: M ATTEND: Vanessa Nur MD ADM AUTHOR: Twyla Crane DPM R1 REPT SERVICE DT/TIME: 08/08/24822 * ALL edits or amendments must be made on the electronic/computer document * Subjective HPI: Patient seen at bedside Objective Physical Exam Wound/incision: Location: RIGHT LOWER EXTREMITY FOCUSED PHYSICAL EXAM: VASCULAR: DP/PT pulses nonpalpable, less than 3 seconds capillary refill time, temperature gradient cool to warm distal to proximal. Mild edema. DERMATOLOGIC: Dressings left clean dry and intact MUSCULOSKELETAL: Muscle strength testing, 5/5 for dorsiflexion, plantarflexion, inversion, and eversion. Positive pain to palpation. Mild equinus. NEUROLOGIC: Gross epicritic sensation diminished for light touch and proprioception. Diagnosis, Assessment Plan Free Text A P: ASSESSMENT: 1. Status post hallux amputation,right foot. 2. Cellulitis, right foot. 3. Type 2 diabetes mellitus with peripheral neuropathy. 4. Peripheral arterial disease. PLAN: 1. The patient was evaluated and examined at bedside. All questions and concerns from the patient addressed to the patient's satisfaction. 2. Reviewed labs and vital signs. 3. Reviewed imaging, right foot, 5. Ordered white blood cell labeled bone scan, shows focal increased uptake within the right first toe region consistent with active infection and inflammatory change. 6. Ordered arterial Doppler, showing monophasic flow in the foot arteries Patient is cleared from the podiatry standpoint. Patient is to keep dressings clean dry intact. Patient is to be weightbearing as tolerated to the right foot. Patient's follow-up outpatient with Dr. Swanson. Will continue to follow while in house. Plan discussed with Dr. Swanson at 2027 at 2126 RPT #:[id number] END OF REPORT [facility] 2024-08-07 21:11:00 [id number] [facility] [address] [place] [address] PATIENT NAME: SEYMOUR SNOW ADMIT DATE: 07/31/24 ACCOUNT NO: [id number] ROOM NO: [facility] AGE: 74 REPORT TYPE: OPERATIVE REPORT SEX: M ADMITTING PHYSICIAN:Vanessa Nur MD ATTENDING PHYSICIAN:Vanessa Nur MD OPERATION DATE: 08/06/2024 This is Twyla Crane DPM, PGY-1 dictating on behalf of Sonam Swanson DPM SURGEON: Sonam Swanson DPM SECURITY ASSOCIATE: Twyla Crane DPM, PGY-1 PREOPERATIVE DIAGNOSES: 1. Osteomyelitis, right foot. 2. Type 2 diabetes mellitus with peripheral neuropathy. 3. Peripheral arterial disease. POSTOPERATIVE DIAGNOSES: 1. Osteomyelitis, right foot. 2. Type 2 diabetes mellitus with peripheral neuropathy. 3. Peripheral arterial disease. PROCEDURE PERFORMED: 1. Hallux amputation, right foot. 2. Application of PuraPly powder, right foot. ANESTHESIA: General. FINDINGS: Healthy bleeding noted. Minimal purulent drainage. Bone stock appeared weak and brittle. Remaining bone appeared healthy and strong. Necrotic and devitalized tissue was seen. COMPLICATIONS: None. ESTIMATED BLOOD LOSS: 10. SPECIMENS REMOVED: 1. Wound cultures, right foot. 2. Bone biopsy for pathology, hallux, right foot. HEMOSTASIS: None. MATERIALS: 2-0 Vicryl, 3-0 nylon, and PuraPly powder. INJECTABLES: 0.25% Marcaine plain. CONDITION: Stable, returned to floor. INDICATIONS: The patient with diagnosis as outlined above. The patient had osteomyelitis in his right hallux as seen on imaging studies. There is concern PATIENT NAME: JAYLA MICHAELREZSEYMOUR for infection and the patient was brought to the operating room for removal of all infected bone. Possible postoperative complications were reviewed with the patient in the preoperative holding area. The patient desires to proceed with surgery and signed the consent form. No guarantees were given or implied. It is with this understanding that we will proceed. OPERATIVE REPORT IN DETAIL: The patient was brought to the operating room and placed on the operating table in the supine position. Following administration of general anesthesia, timeout was performed, identify the correct patient, limb, and procedure, and was in agreement. Local anesthesia was then achieved utilizing 20 mL in a Reece block fashion. The right foot was then scrubbed, prepped and draped in the usual aseptic manner. Attention was directed to the right first digit, where a racquet type incision was made about the MPJ of the digit. This incision allowed for adequate coverage of the remaining metatarsal bone for closure. This incision was deepened to the level of the bone and utilizing sharp dissection, the digit was removed at the metatarsophalangeal joint level. It was clear after resection of the bone that the remaining bone left intact was viable and appeared to have no signs of osteomyelitis or other infection. Utilizing a rongeur and other instrumentation, all devitalized soft tissue was removed from the area. The infected bone that had been amputated, was sent for culture and pathology. The wound was then copiously irrigated with normal amounts of saline. At this time, PuraPly powder was then introduced into the wound to promote wound healing. The skin edges were then reapproximated using 2-0 Vicryl deep and 3-0 nylon in a simple stitch fashion. Everted skin lines were noted at this time. Right foot incision site was then dressed with Xeroform, Betadine-soaked gauze, gauze, Kerlix and Ralph. The patient tolerated the procedure well, and was then transferred to the recovery room with all vital signs stable and neurovascular status intact. Following postoperative monitoring, the patient will be returned to the floor for further medical management and postoperative care. The patient is to keep dressing clean, dry and intact and is to be weightbearing as tolerated to the right foot and we will continue to follow the patient while in-house. Dictated by Twyla Crane DPM, PGY-1 for Sonam Swanson DPM Dictated By: Twyla Crane DPM for Sonam Swanson DPM Date Dictated: 08/07/2024 21:11:22 Date Transcribed: 08/07/2024 22:15:01 GET/JUSTIN Receipt ID: [id number] Authenticated and Edited by UCHE Mar On 08/09/24 7:33:07 PM Authenticated by Sonam Swanson DPM On 08/15/2024 09:02:04 PM at 0902 at 0735 PATIENT NAME: JAYLA SARAHSEYMOUR [facility] 2024-08-07 08:25:00 [facility] Podiatry Progress Note REPORT#:[id number] REPORT STATUS: Signed REPORT INITIALIZATION DATE:08/07/24 TIME: 824 PATIENT: JAYLA MICHAELREWayneSEYMOUR UNIT #: [id number] ROOM/BED: [address] : [address] AGE: 74 SEX: M ATTEND: Vanessa Nur MD ADM AUTHOR: Twyla Crane DPM R1 REPT SERVICE DT/TIME: 08/07/24 0830 * ALL edits or amendments must be made on the electronic/computer document * Subjective HPI: Patient seen at bedside Objective Physical Exam Wound/incision: Location: RIGHT LOWER EXTREMITY FOCUSED PHYSICAL EXAM: VASCULAR: DP/PT pulses nonpalpable, less than 3 seconds capillary refill time, temperature gradient cool to warm distal to proximal. Mild edema. DERMATOLOGIC: Dressings left clean dry and intact MUSCULOSKELETAL: Muscle strength testing, 5/5 for dorsiflexion, plantarflexion, inversion, and eversion. Positive pain to palpation. Mild equinus. NEUROLOGIC: Gross epicritic sensation diminished for light touch and proprioception. Diagnosis, Assessment Plan Free Text A P: ASSESSMENT: 1. Status post hallux amputation,right foot. 2. Cellulitis, right foot. 3. Type 2 diabetes mellitus with peripheral neuropathy. 4. Peripheral arterial disease. PLAN: 1. The patient was evaluated and examined at bedside. All questions and concerns from the patient addressed to the patient's satisfaction. 2. Reviewed labs and vital signs. 3. Reviewed imaging, right foot, 5. Ordered white blood cell labeled bone scan, shows focal increased uptake within the right first toe region consistent with active infection and inflammatory change. 6. Ordered arterial Doppler, showing monophasic flow in the foot arteries Patient is cleared from the podiatry standpoint. Patient is to keep dressings clean dry intact. Patient is to be weightbearing as tolerated to the right foot. Patient's follow-up outpatient with Dr. Swanson. Will continue to follow while in house. Plan discussed with Dr. Swanson at 1301 at 4196 RPT #:[id number] END OF REPORT [facility] 2024-08-07 06:48:00 [facility] Hospitalist Progress Note REPORT#:[id number] REPORT STATUS: Signed REPORT INITIALIZATION DATE:08/07/24 TIME: 0648 PATIENT: JAYLA MAINSEYMOUR VELASQUEZ UNIT #: [id number] [id number] AGE: 74 SEX: M ATTEND: Vanessa Nur MD ADM AUTHOR: Ele Adam MD R1 REPT SERVICE DT/TIME: 08/07/24 0648 * ALL edits or amendments must be made on the electronic/computer document * Ele Adam 08/07/24 0648: Subjective Chief complaint: toe pain HPI: S/p R hallux amputation yesterday. No acute events overnight. Seen and examined at bedside. RLE wrapped in in ralph band. Pt remains afebrile. Denies fevers, chills, chest pain, SOB, N/V/D. Reports decreased appetite and lethargy. Last BM 2d ago. Review of Systems Free Text ROS Notes Free Text ROS Notes: Negative except as otherwise mentioned in HPI Objective General VS/I O: Vital Signs: Date Time Temp Pulse Resp B/P B/P Pulse O2 O2 Flow FiO2 Mean Ox Delivery Rate 08/07 1124 98.2 71 15 120/70 87.0 92 Room air 08/07 0807 98.1 69 15 135/66 89.2 93 Room air 08/07 0438 97.7 64 16 120/73 88.7 93 08/07 0101 97.7 61 18 115/68 83.3 91 08/06 2222 97.5 61 18 115/74 87.9 96 08/06 2215 97.5 61 16 135/69 96 Room air 08/06 2200 97.5 62 16 130/70 95 Room air 08/06 2144 61 16 129/72 97 Simple 5 mask 08/07 2139 61 18 127/68 96 Simple 5 mask 08/06 2134 61 20 128/60 97 Simple 5 mask 08/06 2130 Simple 5 mask 08/06 2130 97.4 63 19 118/60 96 Simple 5 mask 08/06 1609 98.1 58 13 118/67 84.2 91 Room air 24 hour I O ending at 0700: 08/07 0700 08/06 1900 Intake Total 100.00 Output Total 320 Balance -220.00 Intake, IV 100.00 Output, 20 Estimated Blood Loss Output, Urine 300 PATIENT WEIGHT: Weight (lb): 240 Weight (oz): 8.07 Weight (kg): 108.862 Physical Exam General appearance: obese, alert, awake, no acute distress, no respiratory distress Head/Eyes: atraumatic, clear cornea, EOMI, normal conjunctiva/sclera, normal eyelids/periorb., normocephalic, PERRL ENT: normal dentition, normal ear left, normal ear right, normal nose, normal pharynx, normal sinus Neck: full range of motion, non-tender, supple/no meningismus, no JVD Cardiovascular: normal capillary refill, normal heart sounds, regular rate rhythm Respiratory: clear to auscultation, symmetric expansion, no distress Abdomen: tenderness, normal bowel sounds, soft, no distention, no guarding, no rebound Rectal: not indicated Extremities: moves all, normal capillary refill, normal range of motion, no edema Musculoskeletal: normal inspection Neuro/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: alert, oriented X 3 Skin: r foot swelling w/ darkening of skin, R foot wrapped up s/p R hallux amputation Psychiatry: normal affect, normal judgment/insight, normal mood, not homicidal, not suicidal, no hallucinations Results Findings/Data: Laboratory Tests 08/07 08/07 08/07 08/06 0551 0304 0104 1610 Chemistry Sodium (136 - 145 mmol/L) 140 Potassium (3.5 - 5.1 mmol/L) 3.3 L Chloride (98 - 107 mmol/L) 104 Carbon Dioxide (20.0 - 31.0 mmol/L) 29.0 Anion Gap (10 - 20 mmol/L) 10 BUN (9 - 23 mg/dL) 8 L Creatinine (0.55 - 1.30 mg/dL) 0.81 Glomerular Filtr Rate (mL/min) 91 Glucose (74 - 106 mg/dL) 91 POC Glucose (74 - 106 MG/DL) 96 96 106 Calcium (8.7 - 10.4 mg/dL) 8.4 L Magnesium (1.6 - 2.6 mg/dL) 1.4 L Total Bilirubin (0.20 - 1.10 mg/dL) 1.10 Conjugated Bilirubin (0.1 - 0.3 mg/dL) 0.5 H Unconjugated Bilirubin (0 - 1.1 mg/dL) 0.60 AST (0 - 33 U/L) 32 ALT (10 - 49 U/L) 16 Total Alk Phosphatase (46 - 116 U/L) 75 Total Protein (5.7 - 8.2 g/dL) 5.9 Albumin (3.4 - 5.0 g/dL) 3.2 L Specimen Hemolysis (0 - 3 Index/DL) 0 Laboratory Tests 08/07 0304 Hematology WBC (5.0 - 12.0 x10 3/uL) 4.5 L RBC (4.70 - 6.10 x10 6/uL) 3.90 L Hgb (14.0 - 18.0 g/dL) 11.8 L Hct (37.0 - 49.0 %) 35.5 L MCV (80 - 94 fL) 91 MCH (27 - 31 pg) 30.3 MCHC (33 - 37 g/dL) 33.2 RDW (11.5 - 15.5 %) 13.4 Plt Count (130 - 400 x10 3/uL) 133 MPV (9.4 - 16.4 fL) 9.8 Neut % (Auto) (43 - 65 %) 53.9 Lymph % (Auto) (20.5 - 45.5 %) 29.0 [place] % (Auto) (5.5 - 11.7 %) 12.2 H Eos % (Auto) (0.9 - 2.9 %) 4.0 H Baso % (Auto) (0.2 - 1.0 %) 0.7 Neut # (Auto) (2.2 - 4.8 x10 3/uL) 2.43 Lymph # (Auto) (1.3 - 2.9 x10 3/uL) 1.31 [place] # (Auto) (0.3 - 0.8 x10 3/uL) 0.55 Eos # (Auto) (0.0 - 0.2 x10 3/uL) 0.18 Baso # (Auto) (0.0 - 0.1 x10 3/uL) 0.03 Immature Gran % (0.0 - 2.0 %) 0.2 Nucleated RBC % (0 - 1.0 %) 0.0 Diagnosis, Assessment Plan Free Text DxA P Notes Free text DxA P notes: 74-year-old male with past medical history of hypertension, type 2 diabetes mellitus, CAD, A-fib, TB status posttreatment, possible CHF? Presented to the ED complaining of worsening right foot pain and was admitted for concerns of osteomyelitis. #Diabetic foot wound of right great toe complicated with right great toe osteomyelitis/Possible Septic Joint Patient with history of diabetes mellitus and prior diabetic foot wound presenting complaining of worsening right toe pain, pressure ulcer of right great toe present Foot XR with on admission 1. Osteomyelitis is suspected involving the medial base of the first distal phalanx and the distal medial corner of the first proximal phalanx. 2. Joint space widening at the first interphalangeal joint raises concern for possible septic joint. 3. No soft tissue gas is identified. Lactic acid had jumped up to 3.2, now downtrending to 2.3. ESR and CRP elevated at 30 and 32 respectively -Podiatry on board, recommendations appreciated -MRI: soft tissue swelling in great toe extending to dorsum of foot. small abscess in dorsal and medial soft tissue. Osteomyelitis of the head of great toe proximal phalans. Joint effusion which may relate to septic arthritis. -NM bone scan: focal increaed uptake within the 1st toe consistent with tiptake within active infectious/inflammatoyr change -Continue Vanco and cefepime -ID consulted, recs appreciated -Follow-up blood cultures -s/p R hallux amputation 08/06 with podiatry #UTI Patient with complaints of polyuria and pelvic fullness with UA showing leukocyte esterase positive 1+, WBCs 12-20, no bacteria -Follow-up urine culture: no growth at 24 hours -Patient already on appropriate antibiotics #Type 2 diabetes mellitus with peripheral neuropathy Patient with history of type 2 diabetes mellitus A1c is 9.3 -LDSSI -Can start scheduled Lantus and mealtime lispro depending on utilization of LDSSI #Hypercalcium (resolved) -Continue monitor on a.m. labs #Hyperbilirubinemia - resolved Patient with bilirubin 1.6 on admission. Denying any abdominal pain discomfort -reseolved t bili wnl #History of hypertension Patient is on Coreg 3.125 mg twice daily, losartan 50 mg daily -resumed home meds #CAD Patient with history of CAD -Continue home aspirin and atorvastatin #Nausea #abdominal pain -KUB orderd - nonobstructive bowel gas pattern with several prominent gas-filled small bowel loops -PPI started -simethicone -zofran prn -added senna to bowel regimen CODE STATUS: Full code DVT px - Lovenox Diet: Carb consistent NOK: Navdeep Dickerson (son) [phone] Dispo: Pending clinical progress and possible procedure Plan: -s/p R hallux amputation -Continue Vanco and cefepime -PT/OT -f/u ID and podiatry recs -monitor for fevers Discussed with attending Quality: Gen Med Crit Care VTE Prophylaxis VTE prophylaxis initiated: yes Vanessa Nur 08/07/24 1904: Attestations Teaching Physician Attestation F/U visit w/o resident: I personally saw the patient and reviewed the resident's note. I . . . agree with the resident's findings and plan. at 1154 at 1904 RPT #:[id number] END OF REPORT [facility] 2024-08-07 05:00:00 ([facility]) Post Anesthesia Evaluation REPORT#:[id number] REPORT STATUS: Signed REPORT INITIALIZATION DATE:08/07/24 TIME: 0500 PATIENT: SEYMOUR SNOW UNIT #: [id number] ROOM/BED: [address] : [address] AGE: 74 SEX: M ATTEND: Vanessa Nur MD ADM AUTHOR: Sammi Ann MD REPT SERVICE DT/TIME: 08/07/24 0500 * ALL edits or amendments must be made on the electronic/computer document * Post Anesthesia Evaluation Anes. changes from pre-op eval Level of consciousness: awake, responsive to commands Vital signs: Last Documented: Result Date Time Pulse Ox 93 08/07 437 B/P 120/73 08/07 437 B/P Mean 88.7 08/078 Temp 36.5 08/07 437 Pulse 64 08/07 437 Resp 16 08/07 437 O2 Delivery Room air 08/06 2215 O2 Flow Rate 5 08/06 2145 FiO2 21 08/04 2355 Cardiovascular: vital signs stable, ECG,BP,SPO2,RR within reasonable and normal pre-procedure status Respiratory/Airway: maintains without support Pain: controlled with analgesics (0-3) Hydration: adequate Temp status: normothermic Presence of N/V: no Anesthesia complications: no Other changes requiring f/u: none at 0500 RPT #:[id number] [facility] OF [facility]:35:00 [facility] Brief Op Note REPORT#:[id number] REPORT STATUS: Signed REPORT INITIALIZATION DATE:08/06/24 TIME: 2234 PATIENT: SEYMOUR SNOW UNIT #: [id number] ROOM/BED: [address] : [address] AGE: 74 SEX: M ATTEND: Vanessa Nur MD ADM AUTHOR: Twyla Crane DPM REPT SERVICE DT/TIME: 08/06/242234 * ALL edits or amendments must be made on the electronic/computer document * Op/Inv Proc Note - Brief Pre-procedure diagnosis: 1. Osteomyelitis, right foot 2. Type 2 diabetes mellitus with peripheral neuropathy 3. PAD Post-procedure diagnosis: same as pre procedure dx Procedures performed: 1. Right hallux amp 2. application of puraply powder, right foot Primary Surgeon: Dr. Sonam Swanson Cake Froster(s): Twyla Crane, PGY-1 Findings: healthy bleeding noted. Minimal devitalized tissue. Minimal purulence Complications: none Estimated blood loss in ml's: 10 Specimens removed/altered: 1. Right hallux for culture and pathology at 2121 at 2127 RPT #:[id number] END OF REPORT [facility] 2024-08-[facility] 07:30:00 [facility] Podiatry Progress Note REPORT#:[id number] REPORT STATUS: Signed REPORT INITIALIZATION DATE:08/06/24 TIME: 729 PATIENT: SEYMOUR SNOW UNIT #: [id number] ROOM/BED: [address] : [address] AGE: 74 SEX: M ATTEND: Vanessa Nur MD ADM AUTHOR: Twyla Crane DPM R1 REPT SERVICE DT/TIME: 08/06/24 0730 * ALL edits or amendments must be made on the electronic/computer document * Subjective HPI: Patient seen at bedside Objective General VS: Last Documented: Result Date Time Pulse Ox 93 08/06 1053 B/P 120/69 08/06 1053 B/P Mean 85.9 08/06 1053 O2 Delivery Room air 08/06 105 Temp 98.1 08/06 1053 Pulse 64 08/06 1053 Resp 14 08/06 105 FiO2 21 08/04 2355 O2 Flow Rate 0 08/04 2355 PATIENT WEIGHT: Weight (lb): 240 Weight (oz): 8.07 Weight (kg): 108.862 Physical Exam Wound/incision: Location: RIGHT LOWER EXTREMITY FOCUSED PHYSICAL EXAM: VASCULAR: DP/PT pulses nonpalpable, less than 3 seconds capillary refill time, temperature gradient cool to warm distal to proximal. Mild edema. DERMATOLOGIC: Chronic non-pressure ulcer of the right hallux at the nail bed. Does not probe deep, superficial. No drainage. Mild erythema and edema. Edema present in the entire right foot. Wound measuring 0.1 x 0.2 x 0.1 cm. MUSCULOSKELETAL: Muscle strength testing, 5/5 for dorsiflexion, plantarflexion, inversion, and eversion. Positive pain to palpation. Mild equinus. NEUROLOGIC: Gross epicritic sensation diminished for light touch and proprioception. Diagnosis, Assessment Plan Free Text A P: ASSESSMENT: 1. 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 2. Cellulitis, right foot. 3. Type 2 diabetes mellitus with peripheral neuropathy. 4. Peripheral arterial disease. PLAN: 1. The patient was evaluated and examined at bedside. All questions and concerns from the patient addressed to the patient's satisfaction. 2. Reviewed labs and vital signs. 3. Reviewed imaging, right foot, impression shows OM suspected involving the medial base of the first distal phalanx and the distal medial corner of the first proximal phalanx. Joint space widening at the first interphalangeal joint raises concern for possible septic joint. No soft tissue gap is identified. 4. Ordered MRI, shows osteomyelitis of the head of the great toe proximal phalanx and base of the distal phalanx. Pathological fracture of the medial base of the great toe distal phalanx. First interphalangeal joint effusion which may relate to septic arthritis. 5. Ordered white blood cell labeled bone scan, shows focal increased uptake within the right first toe region consistent with active infection and inflammatory change. 6. Ordered arterial Doppler, showing monophasic flow in the foot arteries Surgical intervention necessary. Hallux amputation scheduled for 3 PM today Please keep patient n.p.o. Preop orders placed. Patient is agreeable. Plan discussed with Dr. Swanson at 1325 at 1746 RPT #:[id number] END OF REPORT [facility] 2024-08-06 06:44:00 [facility] REPORT#:[id number] REPORT STATUS: Signed REPORT INITIALIZATION DATE:08/06/24 TIME: 643 PATIENT: SEYMOUR SNOW UNIT #: [id number] ROOM/BED: [address] : [address] AGE: 74 SEX: M ATTEND: Vanessa Nur MD ADM AUTHOR: Ele Adam MD R1 REPT SERVICE DT/TIME: 08/06/24 0644 * ALL edits or amendments must be made on the electronic/computer document * Ele Adam 08/06/24 0644: Subjective Chief complaint: toe pain HPI: No acute events overnight. Seen and examined at bedside. Pt remains afebrile. Denies fevers, chills, chest pain, SOB, V/D. Reports abdominal discomfort and nausea have resolved. Still reporting decreased appetite. Pt NPO for procedure today. Review of Systems Free Text ROS Notes Free Text ROS Notes: Negative except as otherwise mentioned in HPI Objective General VS/I O: Vital Signs: Date Time Temp Pulse Resp B/P B/P Pulse O2 O2 Flow FiO2 Mean Ox Delivery Rate 08/06 1053 98.1 64 14 120/69 85.9 93 Room air 08/06 0742 98.1 65 14 112/56 74.9 94 Room air 08/06 0426 97.9 70 19 104/54 70.4 95 08/06 0037 97.9 66 18 108/64 78.3 94 08/05 2057 97.9 65 16 116/56 76.1 91 08/05 1541 97.3 64 14 154/68 96.4 93 Room air 24 hour I O ending at 0700: 08/06 0700 08/05 1900 Intake Total Output Total 200 Balance -200 Output, Urine 200 PATIENT WEIGHT: Weight (lb): 240 Weight (oz): 8.07 Weight (kg): 108.862 Physical Exam General appearance: alert, awake, no acute distress, no respiratory distress Head/Eyes: atraumatic, clear cornea, EOMI, normal conjunctiva/sclera, normal eyelids/periorb., normocephalic, PERRL ENT: normal dentition, normal ear left, normal ear right, normal nose, normal pharynx, normal sinus Neck: full range of motion, non-tender, supple/no meningismus, no JVD Cardiovascular: normal capillary refill, normal heart sounds, regular rate rhythm Respiratory: clear to auscultation, symmetric expansion, no distress Abdomen: tenderness, normal bowel sounds, soft, no distention, no guarding, no rebound Rectal: not indicated Extremities: moves all, normal capillary refill, normal range of motion, no edema Musculoskeletal: normal inspection Neuro/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: alert, oriented X 3 Skin: r foot swelling w/ darkening of skin Psychiatry: normal affect, normal judgment/insight, normal mood, not homicidal, not suicidal, no hallucinations Results Findings/Data: Laboratory Tests 08/06 08/06 08/06 08/06 08/05 1052 0616 0459 0036 2103 Chemistry Sodium (136 - 145 mmol/L) 140 Potassium (3.5 - 5.1 mmol/L) 3.1 L Chloride (98 - 107 mmol/L) 104 Carbon Dioxide (20.0 - 31.0 mmol/L) 29.0 Anion Gap (10 - 20 mmol/L) 10 BUN (9 - 23 mg/dL) 7 L Creatinine (0.55 - 1.30 mg/dL) 0.78 Glomerular Filtr Rate (mL/min) 92 Glucose (74 - 106 mg/dL) 103 POC Glucose (74 - 106 MG/DL) 107 H 99 147 H 145 H Calcium (8.7 - 10.4 mg/dL) 8.9 Magnesium (1.6 - 2.6 mg/dL) 1.2 L Total Bilirubin (0.20 - 1.10 mg/dL) 0.90 Conjugated Bilirubin (0.1 - 0.3 mg/dL) 0.4 H Unconjugated Bilirubin (0 - 1.1 mg/dL) 0.50 AST (0 - 33 U/L) 36 H ALT (10 - 49 U/L) 17 Total Alk Phosphatase (46 - 116 U/L) 76 Total Protein (5.7 - 8.2 g/dL) 5.8 Albumin (3.4 - 5.0 g/dL) 3.2 L Specimen Hemolysis (0 - 3 Index/DL) 0 08/05 08/05 1816 1540 Chemistry Sodium (136 - 145 mmol/L) 139 Potassium (3.5 - 5.1 mmol/L) 3.4 L Chloride (98 - 107 mmol/L) 104 Carbon Dioxide (20.0 - 31.0 mmol/L) 24.0 Anion Gap (10 - 20 mmol/L) 14 BUN (9 - 23 mg/dL) 8 L Creatinine (0.55 - 1.30 mg/dL) 0.87 Glomerular Filtr Rate (mL/min) 89 Glucose (74 - 106 mg/dL) 166 H POC Glucose (74 - 106 MG/DL) 125 H Calcium (8.7 - 10.4 mg/dL) 8.5 L Total Bilirubin (0.20 - 1.10 mg/dL) 1.00 Conjugated Bilirubin (0.1 - 0.3 mg/dL) 0.4 H Unconjugated Bilirubin (0 - 1.1 mg/dL) 0.60 AST (0 - 33 U/L) 32 ALT (10 - 49 U/L) 17 Total Alk Phosphatase (46 - 116 U/L) 74 Total Protein (5.7 - 8.2 g/dL) 5.8 Albumin (3.4 - 5.0 g/dL) 3.2 L Specimen Hemolysis (0 - 3 Index/DL) 0 Laboratory Tests 08/05 181 Coagulation INR 1.3 PTT ([place]) (23.4 - 37.0 SECONDS) 40.1 H PT Patient/Control Mix (9.4 - 12.5 SECONDS) 14.4 H Laboratory Tests 08/06 08/05 0459 1816 Hematology WBC (5.0 - 12.0 x10 3/uL) 4.0 L 4.2 L RBC (4.70 - 6.10 x10 6/uL) 3.81 L 3.92 L Hgb (14.0 - 18.0 g/dL) 11.4 L 11.9 L Hct (37.0 - 49.0 %) 34.4 L 34.8 L MCV (80 - 94 fL) 90 89 MCH (27 - 31 pg) 29.9 30.4 MCHC (33 - 37 g/dL) 33.1 34.2 RDW (11.5 - 15.5 %) 13.2 13.2 Plt Count (130 - 400 x10 3/uL) 135 132 MPV (9.4 - 16.4 fL) 9.9 9.3 L Neut % (Auto) (43 - 65 %) 49.6 53.6 Lymph % (Auto) (20.5 - 45.5 %) 31.2 29.9 [place] % (Auto) (5.5 - 11.7 %) 13.5 H 11.2 Eos % (Auto) (0.9 - 2.9 %) 4.5 H 4.1 H Baso % (Auto) (0.2 - 1.0 %) 1.0 1.0 Neut # (Auto) (2.2 - 4.8 x10 3/uL) 1.99 L 2.24 Lymph # (Auto) (1.3 - 2.9 x10 3/uL) 1.25 L 1.25 L [place] # (Auto) (0.3 - 0.8 x10 3/uL) 0.54 0.47 Eos # (Auto) (0.0 - 0.2 x10 3/uL) 0.18 0.17 Baso # (Auto) (0.0 - 0.1 x10 3/uL) 0.04 0.04 Immature Gran % (0.0 - 2.0 %) 0.2 0.2 Nucleated RBC % (0 - 1.0 %) 0.0 0.0 Radiology data: Recent Impressions: RADIOLOGY - XR ABDOMEN 1 V 08/05 1423 Report Impression - Status: SIGNED Entered: 08/05/2024 1631 IMPRESSION: Nonspecific nonobstructed bowel gas pattern with several mildly prominent gas-filled small bowel loops centrally along with scattered gas and stool in the colon. Impression By: [email or web address] - Eris Zambrano MD RADIOLOGY - XR CHEST 1 V 08/05 1906 Report Impression - Status: SIGNED Entered: 08/05/2024 2051 IMPRESSION: Bilateral lung opacities, left greater than right, nonspecific. Some of these opacities are linear in configuration and could represent atelectasis or scar. Correlate for superimposed infiltrate. Impression By: [email or web address] - Sean Ahmadi MD Diagnosis, Assessment Plan Free Text DxA P Notes Free text DxA P notes: 74-year-old male with past medical history of hypertension, type 2 diabetes mellitus, CAD, A-fib, TB status posttreatment, possible CHF? Presented to the ED complaining of worsening right foot pain and was admitted for concerns of osteomyelitis. #Diabetic foot wound of right great toe complicated with right great toe osteomyelitis/Possible Septic Joint Patient with history of diabetes mellitus and prior diabetic foot wound presenting complaining of worsening right toe pain, pressure ulcer of right great toe present Foot XR with on admission 1. Osteomyelitis is suspected involving the medial base of the first distal phalanx and the distal medial corner of the first proximal phalanx. 2. Joint space widening at the first interphalangeal joint raises concern for possible septic joint. 3. No soft tissue gas is identified. Lactic acid had jumped up to 3.2, now downtrending to 2.3. ESR and CRP elevated at 30 and 32 respectively -Podiatry on board, recommendations appreciated -MRI: soft tissue swelling in great toe extending to dorsum of foot. small abscess in dorsal and medial soft tissue. Osteomyelitis of the head of great toe proximal phalans. Joint effusion which may relate to septic arthritis. -NM bone scan: focal increaed uptake within the 1st toe consistent with tiptake within active infectious/inflammatoyr change -Continue Vanco and cefepime -ID consulted, recs appreciated -Follow-up arterial Dopplers of lower extremity -Follow-up blood cultures -plan for amputation of R hallux today at 3pm with podiatry #UTI Patient with complaints of polyuria and pelvic fullness with UA showing leukocyte esterase positive 1+, WBCs 12-20, no bacteria -Follow-up urine culture: no growth at 24 hours -Patient already on appropriate antibiotics #Type 2 diabetes mellitus with peripheral neuropathy Patient with history of type 2 diabetes mellitus A1c is 9.3 -LDSSI -Can start scheduled Lantus and mealtime lispro depending on utilization of LDSSI #Hypercalcium (resolved) -Continue monitor on a.m. labs #Hyperbilirubinemia - resolved Patient with bilirubin 1.6 on admission. Denying any abdominal pain discomfort -reseolved t bili wnl #History of hypertension Patient is on Coreg 3.125 mg twice daily, losartan 50 mg daily -resumed home meds #CAD Patient with history of CAD -Continue home aspirin and atorvastatin #Nausea #abdominal pain -KUB orderd - nonobstructive bowel gas pattern with several prominent gas-filled small bowel loops -PPI started -simethicone -zofran prn CODE STATUS: Full code DVT px - Lovenox Diet: Carb consistent NOK: Navdeep Dickerson (son) [phone] Dispo: Pending clinical progress and possible procedure Plan: -plan for R hallux amputation today at 3pm with podiatry -Continue Vanco and cefepime Discussed with attending Quality: Gen Med Crit Care VTE Prophylaxis VTE prophylaxis initiated: yes Vanessa Nur 08/06/24 1414: Attestations Teaching Physician Attestation F/U visit w/o resident: I personally saw the patient and reviewed the resident's note. I . . . agree with the resident's findings and plan. at 1406 at 1414 RPT #:[id number] END OF REPORT [facility] 2024-08-05 18:58:00 [id number] [facility] [address] [facility], [place] [place] [address] PATIENT NAME: SEYMOUR SNOW ADMIT DATE: 07/31/24 ACCOUNT NO: [id number] ROOM NO: [place] [address] AGE: 74 REPORT TYPE: ELECTROCARDIOGRAM SEX: M ADMITTING PHYSICIAN:Vanessa Nur MD ATTENDING PHYSICIAN:Vanessa Nur MD Order: [id number] Test Reason : preop Test Date/Time Stamp: FriAug 05 2024 18:58:00 Blood Pressure : / mmHG Vent. Rate : 063 BPM Atrial Rate : 063 BPM P-R Int : 242 ms QRS Dur : 144 ms QT Int : 434 ms P-R-T Axes : 036 -35 014 degrees QTc Int : 444 ms Sinus rhythm with 1st degree AV block Left axis deviation Right bundle branch block Minimal voltage criteria for LVH, may be normal variant ( R in aVL ) Septal infarct , age undetermined Abnormal ECG Confirmed by ALLIE PHELPS ([id number]) on 08/06/2024 8:56:19 AM Referred By: Self Referred Confirmed by:ALLIE PHELPS at 0856 PATIENT NAME: JAYLA SARAHSEYMOUR [facility] 2024-08-05 13:57:00 [facility] Infectious Dis. Progress Note REPORT#:[id number] REPORT STATUS: Signed REPORT INITIALIZATION DATE:08/05/24 TIME: 1356 PATIENT: SEYMOUR SNOW UNIT #: [id number] RO[address]BED: [address] : [address] AGE: 74 SEX: M ATTEND: Vanessa Nur MD ADM AUTHOR: Raghav Johnson MD REPT SERVICE DT/TIME: 08/05/24 1357 * ALL edits or amendments must be made on the electronic/computer document * Subjective HPI: Afebrile Objective General VS/I O: Vital Signs Date Temp Pulse Resp B/P B/P Mean Pulse Ox FiO2 08/07-08/08 36.7-37.1 67-77 15-18 105-120/60-76 75.9-89.7 91-96 21 Last Documented: Result Date Time Pulse Ox 93 08/08 0720 B/P 105/69 08/08 0720 B/P Mean 80.9 08/08 0720 O2 Delivery Room air 08/08 0720 Temp 36.7 08/08 0720 Pulse 67 08/08 0720 Resp 15 08/08 0720 FiO2 21 08/07 1030 O2 Flow Rate 0 08/07 1030 Vital Signs: Date Time Temp Pulse Resp B/P B/P Pulse O2 O2 Flow FiO2 Mean Ox Delivery Rate 08/09 719 36.7 67 15 105/69 80.9 93 Room air 08/08 0403 68 95 08/08 0402 36.7 69 18 113/70 84.5 95 Room air 08/08 0009 36.7 71 18 111/69 83.0 94 Room air 08/07 1949 36.9 77 18 118/76 89.7 91 Room air 08/07 1515 37.1 73 15 107/60 75.9 96 Room air 08/07 1124 36.8 71 15 120/70 87.0 92 Room air 08/07 1030 Room air 0 21 24 hour I O ending at 0700: 08/08 0700 08/07 1900 Intake Total Output Total 850 Balance -850 Output, Emesis Output, Urine 850 PATIENT WEIGHT: Weight (lb): 240 Weight (oz): 8.07 Weight (kg): 108.862 Medications: Active Meds + DC'd Last 24 Hrs Sennosides (SENNA) 1 TAB DAILY PO (CKD) Potassium Chloride (K-DUR) 40 MEQ ONCE ONE PO (DC) Miscellaneous Information (VANCOMYCIN PHARMACY TO DOSE) 1 EACH ASDIR IV (CKD) Potassium Chloride (MICRO-K,SLOW-K,K-DUR,KLOTRIX,TEN-K) 30 MEQ ONCE ONE PO (DC) Docusate Sodium (COLACE) 200 MG BID PO (CKD) Pantoprazole (PROTONIX) 40 MG DAILY PO Polyethylene Glycol (MIRALAX) 1 PKT BID PO (CKD) Simethicone (MYLICON-80,MYLANTA GAS) 80 MG Q6H PRN PRN PO Nifedipine (PROCARDIA XL,ADALAT CC) 30 MG Q12HR PO Insulin Glargine (LANTUS INSULIN) 10 UNITS AC DIN SUBQ Cefepime HCl (MAXIPIME) 1 GM Q8HR IV Sterile Water (WATER,STERILE ) 10 ML Heparin Sodium (Porcine) (HEPARIN SODIUM) 5,000 UNIT Q8HR SUBQ Vancomycin HCl (VANCOCIN) 1,750 MG Q24H IV Sodium Chloride (NS 0.9%) 500 ML Insulin Human Lispro (Admelog) Low Dose Sliding Scale: *See ADMIN CRIT for DOSE* Q6HR SUBQ Aspirin (ASPIRIN CHEWABLE) 81 MG DAILY PO Acetaminophen (TYLENOL REGULAR) 650 MG Q6H PRN PRN PO Atorvastatin Calcium (LIPITOR) 40 MG DAILY PO Carvedilol (COREG) 3.125 MG BID PO Dextrose/Water (DEXTROSE 50% SYR) 25 ML ASDIR PRN IV (CKD) Glucagon (GLUCAGON) 1 MG ASDIR PRN IM Losartan Potassium (COZAAR) 50 MG DAILY PO Albuterol/Ipratropium (DUONEB 3MG-0.5MG/3 ML) 3 ML RTQ6H PRN PRN INH Naloxone HCl (NARCAN) 0.4 MG Q2M PRN PRN IV Naloxone HCl (NARCAN) 0.4 MG Q2M PRN PRN IV Ondansetron HCl (ZOFRAN 4 MG/2 ML INJ) 4 MG Q4H PRN PRN IV Tramadol HCl (ULTRAM) 50 MG Q6H PRN PRN PO Physical Exam General appearance: alert Cardiovascular: normal heart sounds, regular rate rhythm Respiratory: clear to auscultation Abdomen: soft Extremities: no edema Results Findings/Data: Laboratory Tests 08/08 08/08 08/08 08/07 08/07 0623 0321 0116 2000 1514 Chemistry Sodium (136 - 145 mmol/L) 138 Potassium (3.5 - 5.1 mmol/L) 3.6 Chloride (98 - 107 mmol/L) 102 Carbon Dioxide (20.0 - 31.0 mmol/L) 28.0 Anion Gap (10 - 20 mmol/L) 12 BUN (9 - 23 mg/dL) 10 Creatinine (0.55 - 1.30 mg/dL) 0.83 Glomerular Filtr Rate (mL/min) 91 Glucose (74 - 106 mg/dL) 109 H POC Glucose (74 - 106 MG/DL) 116 H 120 H 146 H 142 H Calcium (8.7 - 10.4 mg/dL) 8.2 L Magnesium (1.6 - 2.6 mg/dL) 1.1 L Total Bilirubin (0.20 - 1.10 mg/dL) 1.20 H Conjugated Bilirubin (0.1 - 0.3 mg/dL) 0.6 H Unconjugated Bilirubin (0 - 1.1 mg/dL) 0.60 AST (0 - 33 U/L) 33 ALT (10 - 49 U/L) 16 Total Alk Phosphatase (46 - 116 U/L) 78 Total Protein (5.7 - 8.2 g/dL) 5.8 Albumin (3.4 - 5.0 g/dL) 3.2 L Specimen Hemolysis (0 - 3 Index/DL) 1 08/07 1124 Chemistry POC Glucose (74 - 106 MG/DL) 136 H Laboratory Tests 08/08 0321 Hematology WBC (5.0 - 12.0 x10 3/uL) 6.6 RBC (4.70 - 6.10 x10 6/uL) 3.75 L Hgb (14.0 - 18.0 g/dL) 11.4 L Hct (37.0 - 49.0 %) 33.9 L MCV (80 - 94 fL) 90 MCH (27 - 31 pg) 30.4 MCHC (33 - 37 g/dL) 33.6 RDW (11.5 - 15.5 %) 13.0 Plt Count (130 - 400 x10 3/uL) 117 L MPV (9.4 - 16.4 fL) 9.5 Neut % (Auto) (43 - 65 %) 60.6 Lymph % (Auto) (20.5 - 45.5 %) 21.3 [place] % (Auto) (5.5 - 11.7 %) 14.6 H Eos % (Auto) (0.9 - 2.9 %) 2.4 Baso % (Auto) (0.2 - 1.0 %) 0.8 Neut # (Auto) (2.2 - 4.8 x10 3/uL) 3.98 Lymph # (Auto) (1.3 - 2.9 x10 3/uL) 1.40 [place] # (Auto) (0.3 - 0.8 x10 3/uL) 0.96 H Eos # (Auto) (0.0 - 0.2 x10 3/uL) 0.16 Baso # (Auto) (0.0 - 0.1 x10 3/uL) 0.05 Immature Gran % (0.0 - 2.0 %) 0.3 Nucleated RBC % (0 - 1.0 %) 0.0 Laboratory Tests 03/22 1308 Serology SARS-CoV-2 Ag (Rapid) (Negative) NEGATIVE Laboratory Tests 08/08 0321 Toxicology Vancomycin Peak (20.0 - 26.0 ug/mL) 19.7 L Diagnosis, Assessment Plan Free Text A P: - Right great toe cellulitis with underlying osteomyelitis involving the first distal phalanx and proximal phalanx septic joint -Elevated inflammatory markers -BARAK -Uncontrolled diabetes mellitus with hemoglobin A1c of 9 recs MRI showing "small abscess in the dorsal and medial soft tissues of the great toe at the level of the interphalangeal joint. Osteomyelitis of the head of the great toe proximal phalanx and base of the distal phalanx. Pathologic fracture/fragmentation of the medial base of the great toe distal phalanx. First interphalangeal joint effusion which may relate to septic arthritis. - on cefepime and vancomycin s/p R hallux amputation on 08/07, wound cult and path is pending. ok to dc on po doxycyline for 2 weeks and follow up in office. -Continue current care. Strict glycemic control. Thank you for the consult. Will follow. at 1302 RPT #:[id number] END OF REPORT [facility] 2024-08-05 07:27:00 [facility] REPORT#:[id number] REPORT STATUS: Signed REPORT INITIALIZATION DATE:08/05/24 TIME: 726 PATIENT: MYA SNOWNCIO UNIT #: [id number] ROOM[address]BED: [address] : [address] AGE: 74 SEX: M ATTEND: Vanessa Nur MD ADM AUTHOR: Ele Adam MD R1 REPT SERVICE DT/TIME: 08/05/24726 * ALL edits or amendments must be made on the electronic/computer document * Ele Adam 08/05/24726: Subjective Chief complaint: toe pain HPI: No acute events overnights. Seen and examined at bedside. Pt remains afebrile. Denies fevers, chills, chest pain, SOB, V/D. Reports abdominal discomfort, nausea and decreased appetite since yesterday. Review of Systems Free Text ROS Notes Free Text ROS Notes: Negative except as otherwise mentioned in HPI Objective General VS/I O: Vital Signs: Date Time Temp Pulse Resp B/P B/P Pulse O2 O2 Flow FiO2 Mean Ox Delivery Rate 08/05 1121 98.4 67 14 147/70 95.6 92 Room air 08/05 0724 97.9 59 15 179/80 112.8 93 Room air 08/05 0503 98.1 63 18 163/70 101.1 92 Room air 08/04 2355 Room air 0 21 08/04 2316 97.9 62 18 162/87 112.2 92 Room air 08/04 2013 98.4 68 18 155/84 107.5 92 Room air 08/04 1557 98.1 61 14 140/88 105.4 91 Room air 24 hour I O ending at 0700: 08/05 0700 08/04 1900 Intake Total Output Total 715 Balance -715 Number 1 Bowel Movements Output, Urine 715 PATIENT WEIGHT: Weight (lb): 240 Weight (oz): 8.07 Weight (kg): 108.862 Physical Exam General appearance: alert, awake, oriented, no acute distress, no respiratory distress Head/Eyes: atraumatic, clear cornea, EOMI, normal conjunctiva/sclera, normal eyelids/periorb., normocephalic, PERRL ENT: normal dentition, normal ear left, normal ear right, normal nose, normal pharynx, normal sinus Neck: full range of motion, non-tender, supple/no meningismus, no JVD Cardiovascular: normal capillary refill, normal heart sounds, regular rate rhythm Respiratory: clear to auscultation, symmetric expansion, no distress Abdomen: tenderness, normal bowel sounds, soft, no distention, no guarding, no rebound Rectal: not indicated Extremities: moves all, normal capillary refill, normal range of motion, no edema Musculoskeletal: normal inspection Neuro/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: alert, oriented X 3 Skin: r foot swelling w/ darkening of skin Psychiatry: normal affect, normal judgment/insight, normal mood, not homicidal, not suicidal, no hallucinations Results Findings/Data: Laboratory Tests 08/05 08/05 08/05 08/04 08/04 1120 0545 0247 2306 1556 Chemistry Sodium (136 - 145 mmol/L) 142 Potassium (3.5 - 5.1 mmol/L) 3.5 Chloride (98 - 107 mmol/L) 107 Carbon Dioxide (20.0 - 31.0 mmol/L) 22.0 Anion Gap (10 - 20 mmol/L) 17 BUN (9 - 23 mg/dL) 8 L Creatinine (0.55 - 1.30 mg/dL) 0.88 Glomerular Filtr Rate (mL/min) 89 Glucose (74 - 106 mg/dL) 125 H POC Glucose (74 - 106 MG/DL) 141 H 118 H 116 H 127 H Calcium (8.7 - 10.4 mg/dL) 8.4 L Magnesium (1.6 - 2.6 mg/dL) 1.3 L Total Bilirubin (0.20 - 1.10 mg/dL) 0.80 Conjugated Bilirubin (0.1 - 0.3 mg/dL) 0.3 Unconjugated Bilirubin (0 - 1.1 mg/dL) 0.50 AST (0 - 33 U/L) 31 ALT (10 - 49 U/L) 15 Total Alk Phosphatase (46 - 116 U/L) 66 Total Protein (5.7 - 8.2 g/dL) 5.6 L Albumin (3.4 - 5.0 g/dL) 3.1 L Specimen Hemolysis (0 - 3 Index/DL) 0 Laboratory Tests 08/05 0247 Hematology WBC (5.0 - 12.0 x10 3/uL) 4.2 L RBC (4.70 - 6.10 x10 6/uL) 3.79 L Hgb (14.0 - 18.0 g/dL) 11.6 L Hct (37.0 - 49.0 %) 34.0 L MCV (80 - 94 fL) 90 MCH (27 - 31 pg) 30.6 MCHC (33 - 37 g/dL) 34.1 RDW (11.5 - 15.5 %) 13.2 Plt Count (130 - 400 x10 3/uL) 141 MPV (9.4 - 16.4 fL) 9.7 Neut % (Auto) (43 - 65 %) 49.8 Lymph % (Auto) (20.5 - 45.5 %) 33.3 [place] % (Auto) (5.5 - 11.7 %) 11.1 Eos % (Auto) (0.9 - 2.9 %) 4.7 H Baso % (Auto) (0.2 - 1.0 %) 0.9 Neut # (Auto) (2.2 - 4.8 x10 3/uL) 2.11 L Lymph # (Auto) (1.3 - 2.9 x10 3/uL) 1.41 [place] # (Auto) (0.3 - 0.8 x10 3/uL) 0.47 Eos # (Auto) (0.0 - 0.2 x10 3/uL) 0.20 Baso # (Auto) (0.0 - 0.1 x10 3/uL) 0.04 Immature Gran % (0.0 - 2.0 %) 0.2 Nucleated RBC % (0 - 1.0 %) 0.0 Diagnosis, Assessment Plan Free Text DxA P Notes Free text DxA P notes: 74-year-old male with past medical history of hypertension, type 2 diabetes mellitus, CAD, A-fib, TB status posttreatment, possible CHF? Presented to the ED complaining of worsening right foot pain and was admitted for concerns of osteomyelitis. #Diabetic foot wound of right great toe complicated with right great toe osteomyelitis/Possible Septic Joint Patient with history of diabetes mellitus and prior diabetic foot wound presenting complaining of worsening right toe pain, pressure ulcer of right great toe present Foot XR with on admission 1. Osteomyelitis is suspected involving the medial base of the first distal phalanx and the distal medial corner of the first proximal phalanx. 2. Joint space widening at the first interphalangeal joint raises concern for possible septic joint. 3. No soft tissue gas is identified. Lactic acid had jumped up to 3.2, now downtrending to 2.3. ESR and CRP elevated at 30 and 32 respectively -Podiatry on board, recommendations appreciated -MRI: soft tissue swelling in great toe extending to dorsum of foot. small abscess in dorsal and medial soft tissue. Osteomyelitis of the head of great toe proximal phalans. Joint effusion which may relate to septic arthritis. -NM bone scan: focal increaed uptake within the 1st toe consistent with tiptake within active infectious/inflammatoyr change -Continue Vanco and cefepime -ID consulted, recs appreciated -Follow-up arterial Dopplers of lower extremity -Follow-up blood cultures -Podiatry rec amputation of R hallux, pending scheduling with podiatry #UTI Patient with complaints of polyuria and pelvic fullness with UA showing leukocyte esterase positive 1+, WBCs 12-20, no bacteria -Follow-up urine culture: no growth at 24 hours -Patient already on appropriate antibiotics #Type 2 diabetes mellitus with peripheral neuropathy Patient with history of type 2 diabetes mellitus A1c is 9.3 -LDSSI -Can start scheduled Lantus and mealtime lispro depending on utilization of LDSSI #Hypercalcium (resolved) -Continue monitor on a.m. labs #Hyperbilirubinemia - resolved Patient with bilirubin 1.6 on admission. Denying any abdominal pain discomfort -reseolved t bili wnl #History of hypertension Patient is on Coreg 3.125 mg twice daily, losartan 50 mg daily -resumed home meds #CAD Patient with history of CAD -Continue home aspirin and atorvastatin #Nausea #abdominal pain -KUB orderd -PPI started -simethicone -zofran prn CODE STATUS: Full code DVT px - Lovenox Diet: Carb consistent NOK: Navdeep Dickerson (son) [phone] Dispo: Pending clinical progress and possible procedure Plan: -Pending scheduling with podiatry for hallux amputation -Continue Vanco and cefepime -Follow-up further ID and podiatry recommendations -f/u KUB Discussed with attending Quality: Gen Med Crit Care VTE Prophylaxis VTE prophylaxis initiated: yes Vanessa Nur 08/05/24 2145: Attestations Teaching Physician Attestation F/U visit w/o resident: I personally saw the patient and reviewed the resident's note. I . . . agree with the resident's findings and plan. at 1341 at 2145 RPT #:[id number] END OF REPORT [facility] 2024-08-05 06:56:00 ([facility]) Podiatry Progress Note REPORT#:[id number] REPORT STATUS: Signed REPORT INITIALIZATION DATE:08/05/24 TIME: 0656 PATIENT: JAYLA SEYMOUR SARAH UNIT #: [id number] [id number] AGE: 74 SEX: M ATTEND: Vanessa Nur MD ADM AUTHOR: Twyla Crane DPM R1 REPT SERVICE DT/TIME: 08/05/24 0656 * ALL edits or amendments must be made on the electronic/computer document * Subjective HPI: Patient seen at bedside, patient is feeling weak today Objective Physical Exam Wound/incision: Location: RIGHT LOWER EXTREMITY FOCUSED PHYSICAL EXAM: VASCULAR: DP/PT pulses nonpalpable, less than 3 seconds capillary refill time, temperature gradient cool to warm distal to proximal. Mild edema. DERMATOLOGIC: Chronic non-pressure ulcer of the right hallux at the nail bed. Does not probe deep, superficial. No drainage. Mild erythema and edema. Edema present in the entire right foot. Wound measuring 0.1 x 0.2 x 0.1 cm. MUSCULOSKELETAL: Muscle strength testing, 5/5 for dorsiflexion, plantarflexion, inversion, and eversion. Positive pain to palpation. Mild equinus. NEUROLOGIC: Gross epicritic sensation diminished for light touch and proprioception. Diagnosis, Assessment Plan Free Text A P: ASSESSMENT: 1. 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 2. Cellulitis, right foot. 3. Type 2 diabetes mellitus with peripheral neuropathy. 4. Peripheral arterial disease. PLAN: 1. The patient was evaluated and examined at bedside. All questions and concerns from the patient addressed to the patient's satisfaction. 2. Reviewed labs and vital signs. 3. Reviewed imaging, right foot, impression shows OM suspected involving the medial base of the first distal phalanx and the distal medial corner of the first proximal phalanx. Joint space widening at the first interphalangeal joint raises concern for possible septic joint. No soft tissue gap is identified. 4. Ordered MRI, shows osteomyelitis of the head of the great toe proximal phalanx and base of the distal phalanx. Pathological fracture of the medial base of the great toe distal phalanx. First interphalangeal joint effusion which may relate to septic arthritis. 5. Ordered white blood cell labeled bone scan, shows focal increased uptake within the right first toe region consistent with active infection and inflammatory change. 6. Ordered arterial Doppler, showing monophasic flow in the foot arteries Surgical intervention necessary. Hallux amputation scheduled for 3 PM tomorrow. Please keep patient n.p.o. at midnight. Preop orders placed. Patient is agreeable. Plan discussed with Dr. Swanson at 1604 at 1746 RPT #:[id number] END OF REPORT [facility] 2024-08-04 10:28:00 [facility] Infectious Dis. Progress Note REPORT#:[id number] REPORT STATUS: Signed REPORT INITIALIZATION DATE:08/04/24 TIME: 1028 PATIENT: SEYMOUR SNOW UNIT #: [id number] ROOM/BED: [address] : 48 AGE: 74 SEX: M ATTEND: Vanessa Nur MD ADM AUTHOR: Raghav Johnson MD REPT SERVICE DT/TIME: 08/04/24 1028 * ALL edits or amendments must be made on the electronic/computer document * Subjective HPI: Afebrile Objective General VS/I O: Vital Signs Date Temp Pulse Resp B/P B/P Mean Pulse Ox FiO2 08/03-08/04 36.4-36.8 61-69 14-18 103-160/68-86 0.0-105.8 91-94 Last Documented: Result Date Time Pulse Ox 91 08/04 1102 B/P 145/86 08/04 1102 B/P Mean 105.8 08/04 1102 O2 Delivery Room air 08/04 1102 Temp 36.8 08/04 1102 Pulse 65 08/04 1102 Resp 14 08/04 1102 Vital Signs: Date Time Temp Pulse Resp B/P B/P Pulse O2 O2 Flow FiO2 Mean Ox Delivery Rate 08/04 1102 36.8 65 14 145/86 105.8 91 Room air 08/04 0723 36.5 61 15 160/83 0.0 94 Room air 08/04 0424 36.6 68 18 139/79 98.9 92 Room air 08/03 2346 36.4 63 18 129/83 97.9 94 Room air 08/03 2242 92 Room air 08/03 1932 36.8 64 18 121/72 88.3 91 Room air 08/03 1555 36.5 61 14 115/70 85.4 91 Room air 08/03 1319 69 103/68 79.7 92 24 hour I O ending at 0700: 08/04 0700 08/03 1900 Intake Total Output Total Balance Patient 108.862 kg Weight PATIENT WEIGHT: Weight (lb): 240 Weight (oz): 8.07 Weight (kg): 108.862 Medications: Active Meds + DC'd Last 24 Hrs Insulin Glargine (LANTUS INSULIN) 10 UNITS AC DIN SUBQ Guaifenesin/Dextromethorphan (HUMIBID DM,AMIBID DM,Q-BID, MUCINEX DM) 1 TAB Q12HR PO Magnesium Sulfate (MAGNESIUM SULFATE 4GM) 100 ML ONCE ONE IV (DC) Cefepime HCl (MAXIPIME) 1 GM Q8HR IV Sterile Water (WATER,STERILE ) 10 ML Heparin Sodium (Porcine) (HEPARIN SODIUM) 5,000 UNIT Q8HR SUBQ Vancomycin HCl (VANCOCIN) 1,750 MG Q24H IV Sodium Chloride (NS 0.9%) 500 ML Insulin Human Lispro (Admelog) Low Dose Sliding Scale: *See ADMIN CRIT for DOSE* Q6HR SUBQ Aspirin (ASPIRIN CHEWABLE) 81 MG DAILY PO Acetaminophen (TYLENOL REGULAR) 650 MG Q6H PRN PRN PO Atorvastatin Calcium (LIPITOR) 40 MG DAILY PO Carvedilol (COREG) 3.125 MG BID PO Dextrose/Water (DEXTROSE 50% SYR) 25 ML ASDIR PRN IV (CKD) Famotidine (PEPCID) 20 MG Q12HR PO Glucagon (GLUCAGON) 1 MG ASDIR PRN IM Losartan Potassium (COZAAR) 50 MG DAILY PO Albuterol/Ipratropium (DUONEB 3MG-0.5MG/3 ML) 3 ML RTQ6H PRN PRN INH Hydrocodone Bitart/Acetaminophen (NORCO 5/325 TABLET) 1 TAB Q6H PRN PRN PO Miscellaneous Information (VANCOMYCIN PHARMACY TO DOSE) 1 EACH ASDIR IV (CKD) Naloxone HCl (NARCAN) 0.4 MG Q2M PRN PRN IV Naloxone HCl (NARCAN) 0.4 MG Q2M PRN PRN IV Ondansetron HCl (ZOFRAN 4 MG/2 ML INJ) 4 MG Q4H PRN PRN IV Tramadol HCl (ULTRAM) 50 MG Q6H PRN PRN PO Physical Exam Cardiovascular: normal heart sounds, regular rate rhythm Respiratory: clear to auscultation Abdomen: soft Extremities: no edema Results Findings/Data: Laboratory Tests 08/04 08/04 08/04 08/03 08/03 1101 0456 325 2004 155 Chemistry Sodium (136 - 145 mmol/L) 143 Potassium (3.5 - 5.1 mmol/L) 3.6 Chloride (98 - 107 mmol/L) 107 Carbon Dioxide (20.0 - 31.0 mmol/L) 24.0 Anion Gap (10 - 20 mmol/L) 16 BUN (9 - 23 mg/dL) 11 Creatinine (0.55 - 1.30 mg/dL) 0.97 Glomerular Filtr Rate (mL/min) 81 Glucose (74 - 106 mg/dL) 129 H POC Glucose (74 - 106 MG/DL) 147 H 118 H 220 H 194 H Calcium (8.7 - 10.4 mg/dL) 8.5 L Magnesium (1.6 - 2.6 mg/dL) 1.7 Total Bilirubin (0.20 - 1.10 mg/dL) 0.70 Conjugated Bilirubin (0.1 - 0.3 mg/dL) 0.3 Unconjugated Bilirubin (0 - 1.1 mg/dL) 0.40 AST (0 - 33 U/L) 31 ALT (10 - 49 U/L) 17 Total Alk Phosphatase (46 - 116 U/L) 66 Total Protein (5.7 - 8.2 g/dL) 5.6 L Albumin (3.4 - 5.0 g/dL) 3.1 L Specimen Hemolysis (0 - 3 Index/DL) 0 Laboratory Tests 08/04 324 Hematology WBC (5.0 - 12.0 x10 3/uL) 3.6 L RBC (4.70 - 6.10 x10 6/uL) 3.70 L Hgb (14.0 - 18.0 g/dL) 11.4 L Hct (37.0 - 49.0 %) 34.0 L MCV (80 - 94 fL) 92 MCH (27 - 31 pg) 30.8 MCHC (33 - 37 g/dL) 33.5 RDW (11.5 - 15.5 %) 13.6 Plt Count (130 - 400 x10 3/uL) 141 MPV (9.4 - 16.4 fL) 9.8 Neut % (Auto) (43 - 65 %) 47.4 Lymph % (Auto) (20.5 - 45.5 %) 35.0 [place] % (Auto) (5.5 - 11.7 %) 11.3 Eos % (Auto) (0.9 - 2.9 %) 5.2 H Baso % (Auto) (0.2 - 1.0 %) 0.8 Neut # (Auto) (2.2 - 4.8 x10 3/uL) 1.72 L Lymph # (Auto) (1.3 - 2.9 x10 3/uL) 1.27 L [place] # (Auto) (0.3 - 0.8 x10 3/uL) 0.41 Eos # (Auto) (0.0 - 0.2 x10 3/uL) 0.19 Baso # (Auto) (0.0 - 0.1 x10 3/uL) 0.03 Immature Gran % (0.0 - 2.0 %) 0.3 Nucleated RBC % (0 - 1.0 %) 0.0 Laboratory Tests 08/03 2338 Toxicology Vancomycin Trough (10 - 20.0 ug/mL) 9.9 L Diagnosis, Assessment Plan Free Text A P: - Right great toe cellulitis with underlying osteomyelitis involving the first distal phalanx and proximal phalanx septic joint -Elevated inflammatory markers -BARAK -Uncontrolled diabetes mellitus with hemoglobin A1c of 9 recs MRI showing "small abscess in the dorsal and medial soft tissues of the great toe at the level of the interphalangeal joint. Osteomyelitis of the head of the great toe proximal phalanx and base of the distal phalanx. Pathologic fracture/fragmentation of the medial base of the great toe distal phalanx. First interphalangeal joint effusion which may relate to septic arthritis. -Continue vancomycin and cefepime. - ok to dc on po doxycline and kefflex for 4 weeks, if pt refuses surgery. -Continue current care. Strict glycemic control. Thank you for the consult. Will follow. at 1356 RPT #:[id number] END OF REPORT [facility] 2024-08-04 08:08:00 ([facility] Hospitalist Progress Note REPORT#:[id number] REPORT STATUS: Signed REPORT INITIALIZATION DATE:08/04/24 TIME: 0808 PATIENT: SEYMOUR SNOW UNIT #: [id number] ROOM/BED: [address] : 48 AGE: 74 SEX: M ATTEND: Vanessa Nur MD ADM AUTHOR: Ele Adam MD R1 REPT SERVICE DT/TIME: 08/04/24 0808 * ALL edits or amendments must be made on the electronic/computer document * Ele Adam 08/04/24 0808: Subjective Chief complaint: toe pain HPI: No acute events overnights. Seen and examined at bedside. Pt remains afebrile. Denies fevers, chills, chest pain, SOB, N/V/D. Refused amputation yesterday but states he did not understand why he needs the procedure. Would like to discuss with his son but is amenable to amputation if it is necessary. Podiatry will come speak to pt and son this afternoon Review of Systems Free Text ROS Notes Free Text ROS Notes: Negative except as otherwise mentioned in HPI Objective General VS/I O: Vital Signs: Date Time Temp Pulse Resp B/P B/P Pulse O2 O2 Flow FiO2 Mean Ox Delivery Rate 08/04 1102 98.2 65 14 145/86 105.8 91 Room air 08/04 0723 97.7 61 15 160/83 0.0 94 Room air 08/04 0424 97.9 68 18 139/79 98.9 92 Room air 08/03 2346 97.5 63 18 129/83 97.9 94 Room air 08/03 2242 92 Room air 08/03 1932 98.2 64 18 121/72 88.3 91 Room air 08/03 1555 97.7 61 14 115/70 85.4 91 Room air 24 hour I O ending at 0700: 08/04 0700 08/03 1900 Intake Total Output Total Balance Patient 108.862 kg Weight PATIENT WEIGHT: Weight (lb): 240 Weight (oz): 8.07 Weight (kg): 108.862 Physical Exam General appearance: alert, awake, no acute distress, no respiratory distress Head/Eyes: atraumatic, clear cornea, EOMI, normal conjunctiva/sclera, normal eyelids/periorb., normocephalic, PERRL ENT: normal dentition, normal ear left, normal ear right, normal nose, normal pharynx, normal sinus Neck: full range of motion, non-tender, supple/no meningismus, no JVD Cardiovascular: normal capillary refill, normal heart sounds, regular rate rhythm Respiratory: clear to auscultation, symmetric expansion, no distress Abdomen: non-tender, normal bowel sounds, soft, no distention, no guarding, no rebound Rectal: not indicated Extremities: moves all, normal capillary refill, normal range of motion, no edema Musculoskeletal: normal inspection Neuro/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: alert, oriented X 3 Skin: r foot swelling w/ darkening of skin Psychiatry: normal affect, normal judgment/insight, normal mood, not homicidal, not suicidal, no hallucinations Results Findings/Data: Laboratory Tests 08/04 08/04 08/04 08/03 08/03 1101 0456 0326 2004 1554 Chemistry Sodium (136 - 145 mmol/L) 143 Potassium (3.5 - 5.1 mmol/L) 3.6 Chloride (98 - 107 mmol/L) 107 Carbon Dioxide (20.0 - 31.0 mmol/L) 24.0 Anion Gap (10 - 20 mmol/L) 16 BUN (9 - 23 mg/dL) 11 Creatinine (0.55 - 1.30 mg/dL) 0.97 Glomerular Filtr Rate (mL/min) 81 Glucose (74 - 106 mg/dL) 129 H POC Glucose (74 - 106 MG/DL) 147 H 118 H 220 H 194 H Calcium (8.7 - 10.4 mg/dL) 8.5 L Magnesium (1.6 - 2.6 mg/dL) 1.7 Total Bilirubin (0.20 - 1.10 mg/dL) 0.70 Conjugated Bilirubin (0.1 - 0.3 mg/dL) 0.3 Unconjugated Bilirubin (0 - 1.1 mg/dL) 0.40 AST (0 - 33 U/L) 31 ALT (10 - 49 U/L) 17 Total Alk Phosphatase (46 - 116 U/L) 66 Total Protein (5.7 - 8.2 g/dL) 5.6 L Albumin (3.4 - 5.0 g/dL) 3.1 L Specimen Hemolysis (0 - 3 Index/DL) 0 Laboratory Tests 08/04 0325 Hematology WBC (5.0 - 12.0 x10 3/uL) 3.6 L RBC (4.70 - 6.10 x10 6/uL) 3.70 L Hgb (14.0 - 18.0 g/dL) 11.4 L Hct (37.0 - 49.0 %) 34.0 L MCV (80 - 94 fL) 92 MCH (27 - 31 pg) 30.8 MCHC (33 - 37 g/dL) 33.5 RDW (11.5 - 15.5 %) 13.6 Plt Count (130 - 400 x10 3/uL) 141 MPV (9.4 - 16.4 fL) 9.8 Neut % (Auto) (43 - 65 %) 47.4 Lymph % (Auto) (20.5 - 45.5 %) 35.0 [place] % (Auto) (5.5 - 11.7 %) 11.3 Eos % (Auto) (0.9 - 2.9 %) 5.2 H Baso % (Auto) (0.2 - 1.0 %) 0.8 Neut # (Auto) (2.2 - 4.8 x10 3/uL) 1.72 L Lymph # (Auto) (1.3 - 2.9 x10 3/uL) 1.27 L [place] # (Auto) (0.3 - 0.8 x10 3/uL) 0.41 Eos # (Auto) (0.0 - 0.2 x10 3/uL) 0.19 Baso # (Auto) (0.0 - 0.1 x10 3/uL) 0.03 Immature Gran % (0.0 - 2.0 %) 0.3 Nucleated RBC % (0 - 1.0 %) 0.0 Laboratory Tests 08/03 2338 Toxicology Vancomycin Trough (10 - 20.0 ug/mL) 9.9 L Diagnosis, Assessment Plan Free Text DxA P Notes Free text DxA P notes: 74-year-old male with past medical history of hypertension, type 2 diabetes mellitus, CAD, A-fib, TB status posttreatment, possible CHF? Presented to the ED complaining of worsening right foot pain and was admitted for concerns of osteomyelitis. #Diabetic foot wound of right great toe complicated with right great toe osteomyelitis/Possible Septic Joint Patient with history of diabetes mellitus and prior diabetic foot wound presenting complaining of worsening right toe pain, pressure ulcer of right great toe present Foot XR with on admission 1. Osteomyelitis is suspected involving the medial base of the first distal phalanx and the distal medial corner of the first proximal phalanx. 2. Joint space widening at the first interphalangeal joint raises concern for possible septic joint. 3. No soft tissue gas is identified. Lactic acid had jumped up to 3.2, now downtrending to 2.3. ESR and CRP elevated at 30 and 32 respectively -Podiatry on board, recommendations appreciated -MRI: soft tissue swelling in great toe extending to dorsum of foot. small abscess in dorsal and medial soft tissue. Osteomyelitis of the head of great toe proximal phalans. Joint effusion which may relate to septic arthritis. -NM bone scan: focal increaed uptake within the 1st toe consistent with tiptake within active infectious/inflammatoyr change -Continue Vanco and cefepime -ID consulted, recs appreciated -Follow-up arterial Dopplers of lower extremity -Follow-up blood cultures -Podiatry rec amputation of R hallux, pt initially denied but now amenable to procedure, would like to discuss with son #UTI Patient with complaints of polyuria and pelvic fullness with UA showing leukocyte esterase positive 1+, WBCs 12-20, no bacteria -Follow-up urine culture: no growth at 24 hours -Patient already on appropriate antibiotics #Type 2 diabetes mellitus with peripheral neuropathy Patient with history of type 2 diabetes mellitus A1c is 9.3 -LDSSI -Can start scheduled Lantus and mealtime lispro depending on utilization of LDSSI #Hypercalcium (resolved) -Continue monitor on a.m. labs #Hyperbilirubinemia - resolved Patient with bilirubin 1.6 on admission. Denying any abdominal pain discomfort -reseolved t bili wnl #History of hypertension Patient is on Coreg 3.125 mg twice daily, losartan 50 mg daily -resumed home meds #CAD Patient with history of CAD -Continue home aspirin and atorvastatin CODE STATUS: Full code DVT px - Lovenox Diet: Carb consistent NOK: Navdeep Dickerson (son) [phone] Dispo: Pending clinical progress and possible procedure Plan: -Pending decision about amputation, podiatry will speak to pt this afternoon -Continue Vanco and cefepime -Follow-up further ID and podiatry recommendations Discussed with attending Quality: Gen Med Crit Care VTE Prophylaxis VTE prophylaxis initiated: yes Vanessa Nur 08/04/24 1909: Attestations Teaching Physician Attestation F/U visit w/o resident: I personally saw the patient and reviewed the resident's note. I . . . agree with the resident's findings and plan. pt agreed for surgery now initially declined ID-- abx at 1355 at 1910 RPT #:[id number] END OF REPORT [facility] 2024-08-04 08:05:00 [facility] Prog.Note-Vancomycin REPORT#:[id number] REPORT STATUS: Signed REPORT INITIALIZATION DATE:08/04/24 TIME: 08 PATIENT: SEYMOUR SNOW UNIT #: [id number] ROOM/BED: [address] : [address] AGE: 74 SEX: M ATTEND: Vanessa Nur MD ADM [facility]: [facility]TIME: 08/04/24 0805 * ALL edits or amendments must be made on the electronic/computer document * See Addendum Vancomycin Vancomycin Medication Therapy Goal: AUC 400-600 mg*hr/L Indication for treatment: Bone/Joint Current therapy: Medication(s) Ordered: Anti-Infective Agents Sig/Mary Start time Last Medication Dose Route Stop Time Status Admin Cefepime HCl 1 GM Q8HR 08/02 1400 AC 08/04 Sterile Water 10 ML IV 08/16 2359 0600 Vancomycin HCl 1,750 MG Q24H 08/01 2300 AC 08/03 Sodium Chloride 500 ML IV 08/06 2301 2244 Autonomic Drugs Sig/Mary Start time Last Medication Dose Route Stop Time Status Admin Albuterol/Ipratropium 3 ML RTQ6H PRN PRN 07/31 2130 AC INH 10/29 2131 Blood Formation,Coagulation Sig/Mary Start time Last Medication Dose Route Stop Time Status Admin Heparin Sodium 5,000 UNIT Q8HR 08/02 1400 AC 08/04 (Porcine) SUBQ 10/31 1401 0600 Cardiovascular Drugs Sig/Mary Start time Last Medication Dose Route Stop Time Status Admin Atorvastatin Calcium 40 MG DAILY 08/01 09 AC 08/03 PO 10/30 0901 0952 Carvedilol 3.125 MG BID 08/01 09 AC 08/03 PO 10/30 0901 2235 Losartan Potassium 50 MG DAILY 08/01 09 AC 08/03 PO 10/30 0901 0952 Central Nervous System Agents Sig/Mary Start time Last Medication Dose Route Stop Time Status Admin Aspirin 81 MG DAILY 08/01 1145 AC 08/03 PO 10/30 1146 0950 Acetaminophen 650 MG Q6H PRN PRN 08/01 09 AC PO 10/30 0901 Hydrocodone Bitart/ 1 TAB Q6H PRN PRN 07/31 2130 AC Acetaminophen PO 08/05 2131 Naloxone HCl 0.4 MG Q2M PRN PRN 07/31 2130 AC IV 10/29 2131 Naloxone HCl 0.4 MG Q2M PRN PRN 07/31 2130 AC IV 10/29 2131 Tramadol HCl 50 MG Q6H PRN PRN 07/31 2130 AC PO 08/10 2131 Electrolytic, Caloric, And Eli Sig/Mary Start time Last Medication Dose Route Stop Time Status Admin Dextrose/Water 25 ML ASDIR PRN 08/01 0900 CKD IV 10/30 0901 Gastrointestinal Drugs Sig/Mary Start time Last Medication Dose Route Stop Time Status Admin Famotidine 20 MG Q12HR 08/01 0900 AC 08/03 PO 10/30 0901 2234 Ondansetron HCl 4 MG Q4H PRN PRN 07/31 2130 AC IV 10/29 2131 Hormones And Synthetic Substit Sig/Mary Start time Last Medication Dose Route Stop Time Status Admin Insulin Human Lispro See Dose Q6HR 08/01 1200 AC 08/03 Insts (1) SUBQ 10/30 1201 2243 Glucagon 1 MG ASDIR PRN 08/01 0900 AC IM 10/30 0901 Miscellaneous Therapeutic Agen Sig/Mary Start time Last Medication Dose Route Stop Time Status Admin Magnesium Sulfate 100 ML ONCE ONE 08/03 0900 DC 08/03 IV 08/03 1259 1207 Respiratory Tract Agents Sig/Mary Start time Last Medication Dose Route Stop Time Status Admin Guaifenesin/ 1 TAB Q12HR 08/03 2100 AC 08/03 Dextromethorphan PO 11/01 2101 2243 Other Sig/Mary Start time Last Medication Dose Route Stop Time Status Admin Miscellaneous 1 EACH ASDIR 07/31 2129 CKD Information IV 08/06 2130 Dose Instructions: (1)Insulin Human Lispro: Low Dose Sliding Scale: *See ADMIN CRIT for DOSE* VS and I/O: Vital Signs Date Temp Pulse Resp B/P B/P Mean Pulse Ox FiO2 08/03-08/04 36.4-36.8 61-69 14- 103-161/68-99 0.0-119.9 91-95 72 hours ending at 0700 08/04 0700 08/03 1900 08/03 0700 08/02 1900 08/02 08/01 0700 1900 Intake 1800.00 500.00 Total Output Total Balance 1800.00 500.00 Intake, IV 550.00 500.00 Intake, 1250 Oral Number 5 3 Voids Patient 108.862 kg Weight 72 Hour I O Total 08/04 0700 08/03 0700 08/02 0700 Intake Total 1800.00 500.00 Output Total Balance 1800.00 500.00 Labs: Laboratory Tests: 08/03 08/03 08/01 2338 0215 1222 Toxicology Vancomycin Peak (20.0 - 26.0 ug/mL) 27.0 H Vancomycin Trough (10 - 20.0 ug/mL) 9.9 L Random Vancomycin (ug/mL) 7.7 Laboratory Test : 08/04 08/04 08/03 08/02 0326 0325 0215 0324 Chemistry BUN (9 - 23 mg/dL) 11 13 16 Creatinine (0.55 - 1.30 mg/dL) 0.97 1.01 1.24 Hematology WBC (5.0 - 12.0 x10 3/uL) 3.6 L 3.4 L 5.3 Treatment plan: cont current regimen/dose Rationale: Consulting Provider: Gely Roman Dosing weight: 85.8 kg (adjBW) Per RN, scale weight = 118.6 kg and height = 172.7 cm * Pharmacy is consulted to dose vancomycin for bone and joint infx for 7 days ( stop date 08/06/24) * 08/04: T- 36.5 afebrile, WBC 3.6, SCr 0.97 * Flu: negative * Urine blood culture: NGTD * LD: 2500 mg was ordered on 07/31 (patient was given 1000 mg dose once in the ED. However, per protocol and based on patient s ABW of 109.09 kg, patient should have received 2500 mg dose regardless of renal function. Additonal 1500 mg was administered @ 2352) * 08/04: AUC = 447.14, therapeutic. will continue with vancomyin 1750 mg q24 hr dosing * Since current regimen is therapeutic and consult will end before the next steady state, will not order any additional levels. Please order levels if consult is extended * CBC and BMP are ordered until 08/11/24 DATE DOT SCR/ CRCL LEVELS AUC REGIMEN 07/31 1 1.35 LD 2500 MG X1 08/01 2 1.3164 VR @1222= 7.7 MD 1750 mg q24h 08/02 3 1750 mg q24h 08/03 4 [facility] @ 0215 = 27 447.14 1750 mg q24h vt @ 2338 = 9.9 08/06 7 consult ends 1750 mg q24h at 0819 Addendum 1: 08/07/24 1044 by Marissa Crane [facility] Contacted primary team regarding end date of vanc consult. acknowledged that team is aware. Pharmacy will sign off. Please re-consult if vanc DOT needs to be extended. at 1045 Addendum 2: 08/07/24 1313 by Marissa Crane RPh Vancomycin consult extended for another 7 days (total 14 DOT)(ends 08/13) by Ele Castanon MD R1 s/p R hallux amptutation 08/06 BUN/SCr stable Cont vanc MD 1750 mg IV Q24H @2300 Next CREDIT RISK REVIEW OFFICER due @0300 08/08, [place] @2200 08/08 Monitor daily BUN/SCr - ordered through 08/11 DATE DOT SCR/ CRCL LEVELS AUC REGIMEN 07/31 1 1.3562 LD 2500 MG X1 08/01 2 1.3164 VR @1222= 7.7 1750 mg q24h 08/02 3 1750 mg q24h 08/03 4 [facility] home [facility] @ 0215 = 27 447.14 1750 mg q24h vt @ 2338 = 9.9 08/07 8 0.81/103 1750 mg q24h 08/08 9 CREDIT RISK REVIEW OFFICER @0300 VT @2200 at 1317 RPT #:[id number] END OF REPORT [facility] 2024-08-04 07:11:00 [facility] Podiatry Progress Note REPORT#:[id number] REPORT STATUS: Signed REPORT INITIALIZATION DATE:08/04/24 TIME: 710 PATIENT: RICHARD SNOWIO UNIT #: [id number] ROOM/BED: [address] : [birth year] AGE: 74 SEX: M ATTEND: Vanessa Nur MD ADM AUTHOR: Twyla Crane DPM REPT SERVICE DT/TIME: 08/04/24 0711 * ALL edits or amendments must be made on the electronic/computer document * Subjective HPI: Patient seen at bedside Objective Physical Exam Wound/incision: Location: RIGHT LOWER EXTREMITY FOCUSED PHYSICAL EXAM: VASCULAR: DP/PT pulses nonpalpable, less than 3 seconds capillary refill time, temperature gradient cool to warm distal to proximal. Mild edema. DERMATOLOGIC: Chronic non-pressure ulcer of the right hallux at the nail bed. Does not probe deep, superficial. No drainage. Mild erythema and edema. Edema present in the entire right foot. Wound measuring 0.1 x 0.2 x 0.1 cm. MUSCULOSKELETAL: Muscle strength testing, 5/5 for dorsiflexion, plantarflexion, inversion, and eversion. Positive pain to palpation. Mild equinus. NEUROLOGIC: Gross epicritic sensation diminished for light touch and proprioception. Diagnosis, Assessment Plan Free Text A P: ASSESSMENT: 1. 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 2. Cellulitis, right foot. 3. Type 2 diabetes mellitus with peripheral neuropathy. 4. Peripheral arterial disease. PLAN: 1. The patient was evaluated and examined at bedside. All questions and concerns from the patient addressed to the patient's satisfaction. 2. Reviewed labs and vital signs. 3. Reviewed imaging, right foot, impression shows OM suspected involving the medial base of the first distal phalanx and the distal medial corner of the first proximal phalanx. Joint space widening at the first interphalangeal joint raises concern for possible septic joint. No soft tissue gap is identified. 4. Ordered MRI, shows osteomyelitis of the head of the great toe proximal phalanx and base of the distal phalanx. Pathological fracture of the medial base of the great toe distal phalanx. First interphalangeal joint effusion which may relate to septic arthritis. 5. Ordered white blood cell labeled bone scan, shows focal increased uptake within the right first toe region consistent with active infection and inflammatory change. 6. Ordered arterial Doppler, pending. Surgical intervention necessary. Discussed hallux amputation with patient. Patient is agreeable. Pending scheduling. Appreciate ID recommendations for antibiotics. Will continue to follow while in house. Patient is to follow-up outpatient with Dr. Swanson. Plan discussed with Dr. Swanson at 2200 at 1746 RPT #:[id number] END OF REPORT [facility] 2024-08-03 16:10:00 [facility] Infectious Dis. Progress Note REPORT#:[id number] REPORT STATUS: Signed REPORT INITIALIZATION DATE:08/03/24 TIME: 161 PATIENT: SEYMOUR SNWO UNIT #: [id number] ROOM/BED: [address] : [birth year] AGE: 74 SEX: M ATTEND: Vanessa Nur MD ADM AUTHOR: Raghav Johnson MD REPT SERVICE DT/TIME: 08/03/24 1610 * ALL edits or amendments must be made on the electronic/computer document * Subjective HPI: Afebrile Objective General VS/I O: Vital Signs Date Temp Pulse Resp B/P B/P Mean Pulse Ox FiO2 08/02-08/03 36.5-36.9 49-75 14-15 103-163/68-99 79.7-119.9 91-96 Last Documented: Result Date Time Pulse Ox 91 08/03 1555 B/P 115/70 08/03 1555 B/P Mean 85.4 08/03 1555 O2 Delivery Room air 08/03 1555 Temp 36.5 08/03 1555 Pulse 61 08/03 1555 Resp 14 08/03 1555 Vital Signs: Date Time Temp Pulse Resp B/P B/P Pulse O2 O2 Flow FiO2 Mean Ox Delivery Rate 08/03 1555 36.5 61 14 115/70 85.4 91 Room air 08/03 1319 69 103/68 79.7 92 08/03 1120 36.7 67 14 161/99 119.9 95 Room air 08/03 0736 36.9 75 15 163/98 119.5 93 Room air 08/03 0314 36.6 68 15 158/87 110.3 96 Room air 08/02 2303 36.7 64 14 150/83 105.4 93 Room air 08/02 2017 36.5 49 15 111/71 84.0 91 Room air 24 hour I O ending at 0700: 08/03 0700 08/02 1900 Intake Total 1800.00 Output Total Balance 1800.00 Intake, IV 550.00 Intake, Oral 1250 Number Voids 5 PATIENT WEIGHT: Weight (lb): 240 Weight (oz): 8.07 Weight (kg): 108.862 Medications: Active Meds + DC'd Last 24 Hrs Guaifenesin/Dextromethorphan (HUMIBID DM,AMIBID DM,Q-BID, MUCINEX DM) 1 TAB Q12HR PO Magnesium Sulfate (MAGNESIUM SULFATE 4GM) 100 ML ONCE ONE IV (DC) Cefepime HCl (MAXIPIME) 1 GM Q8HR IV Sterile Water (WATER,STERILE ) 10 ML Heparin Sodium (Porcine) (HEPARIN SODIUM) 5,000 UNIT Q8HR SUBQ Vancomycin HCl (VANCOCIN) 1,750 MG Q24H IV Sodium Chloride (NS 0.9%) 500 ML Insulin Human Lispro (Admelog) Low Dose Sliding Scale: *See ADMIN CRIT for DOSE* Q6HR SUBQ Aspirin (ASPIRIN CHEWABLE) 81 MG DAILY PO Acetaminophen (TYLENOL REGULAR) 650 MG Q6H PRN PRN PO Atorvastatin Calcium (LIPITOR) 40 MG DAILY PO Carvedilol (COREG) 3.125 MG BID PO Dextrose/Water (DEXTROSE 50% SYR) 25 ML ASDIR PRN IV (CKD) Famotidine (PEPCID) 20 MG Q12HR PO Glucagon (GLUCAGON) 1 MG ASDIR PRN IM Losartan Potassium (COZAAR) 50 MG DAILY PO Albuterol/Ipratropium (DUONEB 3MG-0.5MG/3 ML) 3 ML RTQ6H PRN PRN INH Hydrocodone Bitart/Acetaminophen (NORCO 5/325 TABLET) 1 TAB Q6H PRN PRN PO Miscellaneous Information (VANCOMYCIN PHARMACY TO DOSE) 1 EACH ASDIR IV (CKD) Naloxone HCl (NARCAN) 0.4 MG Q2M PRN PRN IV Naloxone HCl (NARCAN) 0.4 MG Q2M PRN PRN IV Ondansetron HCl (ZOFRAN 4 MG/2 ML INJ) 4 MG Q4H PRN PRN IV Tramadol HCl (ULTRAM) 50 MG Q6H PRN PRN PO Physical Exam General appearance: alert, awake Cardiovascular: normal heart sounds, regular rate rhythm Respiratory: clear to auscultation Abdomen: soft Extremities: no edema Results Findings/Data: Laboratory Tests 08/03 08/03 08/03 08/02 08/02 1118 0518 4813 0912 2015 Chemistry Sodium (136 - 145 mmol/L) 142 Potassium (3.5 - 5.1 mmol/L) 3.7 Chloride (98 - 107 mmol/L) 107 Carbon Dioxide (20.0 - 31.0 mmol/L) 28.0 Anion Gap (10 - 20 mmol/L) 11 BUN (9 - 23 mg/dL) 13 Creatinine (0.55 - 1.30 mg/dL) 1.01 Glomerular Filtr Rate (mL/min) 77 Glucose (74 - 106 mg/dL) 173 H POC Glucose (74 - 106 MG/DL) 140 H 133 H 172 H 147 H Calcium (8.7 - 10.4 mg/dL) 8.7 Magnesium (1.6 - 2.6 mg/dL) 1.2 L Total Bilirubin (0.20 - 1.10 mg/dL) 0.60 Conjugated Bilirubin (0.1 - 0.3 mg/dL) 0.2 Unconjugated Bilirubin (0 - 1.1 mg/dL) 0.40 AST (0 - 33 U/L) 34 H ALT (10 - 49 U/L) 17 Total Alk Phosphatase (46 - 116 U/L) 71 Total Protein (5.7 - 8.2 g/dL) 5.6 L Albumin (3.4 - 5.0 g/dL) 3.1 L Specimen Hemolysis (0 - 3 Index/DL) 1 Laboratory Tests 08/03 0215 Hematology WBC (5.0 - 12.0 x10 3/uL) 3.4 L RBC (4.70 - 6.10 x10 6/uL) 3.86 L Hgb (14.0 - 18.0 g/dL) 11.9 L Hct (37.0 - 49.0 %) 35.6 L MCV (80 - 94 fL) 92 MCH (27 - 31 pg) 30.8 MCHC (33 - 37 g/dL) 33.4 RDW (11.5 - 15.5 %) 13.6 Plt Count (130 - 400 x10 3/uL) 126 L MPV (9.4 - 16.4 fL) 10.0 Neut % (Auto) (43 - 65 %) 47.2 Lymph % (Auto) (20.5 - 45.5 %) 34.7 [place] % (Auto) (5.5 - 11.7 %) 12.0 H Eos % (Auto) (0.9 - 2.9 %) 5.2 H Baso % (Auto) (0.2 - 1.0 %) 0.6 Neut # (Auto) (2.2 - 4.8 x10 3/uL) 1.62 L Lymph # (Auto) (1.3 - 2.9 x10 3/uL) 1.19 L [place] # (Auto) (0.3 - 0.8 x10 3/uL) 0.41 Eos # (Auto) (0.0 - 0.2 x10 3/uL) 0.18 Baso # (Auto) (0.0 - 0.1 x10 3/uL) 0.02 Immature Gran % (0.0 - 2.0 %) 0.3 Nucleated RBC % (0 - 1.0 %) 0.0 Laboratory Tests 08/03 214 Toxicology Vancomycin Peak (20.0 - 26.0 ug/mL) 27.0 H Diagnosis, Assessment Plan Free Text A P: - Right great toe cellulitis with underlying osteomyelitis involving the first distal phalanx and proximal phalanx septic joint -Elevated inflammatory markers -BARAK -Uncontrolled diabetes mellitus with hemoglobin A1c of 9 recs MRI showing "small abscess in the dorsal and medial soft tissues of the great toe at the level of the interphalangeal joint. Osteomyelitis of the head of the great toe proximal phalanx and base of the distal phalanx. Pathologic fracture/fragmentation of the medial base of the great toe distal phalanx. First interphalangeal joint effusion which may relate to septic arthritis. -Continue vancomycin and cefepime. -Continue current care. Strict glycemic control. Thank you for the consult. Will follow. at 1028 RPT #:[id number] END OF REPORT [facility] 2024-08-03 07:49:00 [facility] Hospitalist Progress Note REPORT#:[id number] REPORT STATUS: Signed REPORT INITIALIZATION DATE:08/03/24 TIME: 748 PATIENT: SEYMOUR SNOW UNIT #: [id number] ROOM/BED: [address] : [birth year] AGE: 74 SEX: M ATTEND: Vanessa Nur MD ADM AUTHOR: Ele Adam MD R1 REPT SERVICE DT/TIME: 08/03/24 0749 * ALL edits or amendments must be made on the electronic/computer document * Ele Adam 08/03/24 0749: Subjective Chief complaint: toe pain HPI: No acute events overnights. Pt remains afebrile. Pt reports productive cough, yellow phlegm. Denies fevers, chills, chest pain, SOB, N/V/D. Review of Systems Free Text ROS Notes Free Text ROS Notes: Negative except as otherwise mentioned in HPI Objective General VS/I O: Vital Signs: Date Time Temp Pulse Resp B/P B/P Pulse O2 O2 Flow FiO2 Mean Ox Delivery Rate 08/03 1120 98.1 67 14 161/99 119.9 95 Room air 08/03 0736 98.4 75 15 163/98 119.5 93 Room air 08/03 0314 97.9 68 15 158/87 110.3 96 Room air 08/02 2303 98.1 64 14 150/83 105.4 93 Room air 08/02 2017 97.7 49 15 111/71 84.0 91 Room air 08/02 1524 97.7 67 14 97/63 74.4 92 Room air 24 hour I O ending at 0700: 08/03 0700 08/02 1900 Intake Total 1800.00 Output Total Balance 1800.00 Intake, IV 550.00 Intake, Oral 1250 Number Voids 5 PATIENT WEIGHT: Weight (lb): 240 Weight (oz): 8.07 Weight (kg): 109.091 Physical Exam General appearance: alert, awake, no acute distress, no respiratory distress Head/Eyes: atraumatic, clear cornea, EOMI, normal conjunctiva/sclera, normal eyelids/periorb., normocephalic, PERRL ENT: normal dentition, normal ear left, normal ear right, normal nose, normal pharynx, normal sinus Neck: full range of motion, non-tender, supple/no meningismus, no JVD Cardiovascular: normal capillary refill, normal heart sounds, regular rate rhythm Respiratory: clear to auscultation, symmetric expansion, no distress Abdomen: non-tender, normal bowel sounds, soft, no distention, no guarding, no rebound Rectal: not indicated Extremities: moves all, normal capillary refill, normal range of motion, no edema Musculoskeletal: normal inspection Neuro/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: alert, oriented X 3 Skin: r foot swelling w/ darkening of skin Psychiatry: normal affect, normal judgment/insight, normal mood, not homicidal, not suicidal, no hallucinations Results Findings/Data: Laboratory Tests 08/03 08/03 08/03 08/02 08/02 1118 0538 0215 2335 2015 Chemistry Sodium (136 - 145 mmol/L) 142 Potassium (3.5 - 5.1 mmol/L) 3.7 Chloride (98 - 107 mmol/L) 107 Carbon Dioxide (20.0 - 31.0 mmol/L) 28.0 Anion Gap (10 - 20 mmol/L) 11 BUN (9 - 23 mg/dL) 13 Creatinine (0.55 - 1.30 mg/dL) 1.01 Glomerular Filtr Rate (mL/min) 77 Glucose (74 - 106 mg/dL) 173 H POC Glucose (74 - 106 MG/DL) 140 H 133 H 172 H 147 H Calcium (8.7 - 10.4 mg/dL) 8.7 Magnesium (1.6 - 2.6 mg/dL) 1.2 L Total Bilirubin (0.20 - 1.10 mg/dL) 0.60 Conjugated Bilirubin (0.1 - 0.3 mg/dL) 0.2 Unconjugated Bilirubin (0 - 1.1 mg/dL) 0.40 AST (0 - 33 U/L) 34 H ALT (10 - 49 U/L) 17 Total Alk Phosphatase (46 - 116 U/L) 71 Total Protein (5.7 - 8.2 g/dL) 5.6 L Albumin (3.4 - 5.0 g/dL) 3.1 L Specimen Hemolysis (0 - 3 Index/DL) 1 08/02 1524 Chemistry POC Glucose (74 - 106 MG/DL) 195 H Laboratory Tests 08/03 0215 Hematology WBC (5.0 - 12.0 x10 3/uL) 3.4 L RBC (4.70 - 6.10 x10 6/uL) 3.86 L Hgb (14.0 - 18.0 g/dL) 11.9 L Hct (37.0 - 49.0 %) 35.6 L MCV (80 - 94 fL) 92 MCH (27 - 31 pg) 30.8 MCHC (33 - 37 g/dL) 33.4 RDW (11.5 - 15.5 %) 13.6 Plt Count (130 - 400 x10 3/uL) 126 L MPV (9.4 - 16.4 fL) 10.0 Neut % (Auto) (43 - 65 %) 47.2 Lymph % (Auto) (20.5 - 45.5 %) 34.7 [place] % (Auto) (5.5 - 11.7 %) 12.0 H Eos % (Auto) (0.9 - 2.9 %) 5.2 H Baso % (Auto) (0.2 - 1.0 %) 0.6 Neut # (Auto) (2.2 - 4.8 x10 3/uL) 1.62 L Lymph # (Auto) (1.3 - 2.9 x10 3/uL) 1.19 L [place] # (Auto) (0.3 - 0.8 x10 3/uL) 0.41 Eos # (Auto) (0.0 - 0.2 x10 3/uL) 0.18 Baso # (Auto) (0.0 - 0.1 x10 3/uL) 0.02 Immature Gran % (0.0 - 2.0 %) 0.3 Nucleated RBC % (0 - 1.0 %) 0.0 Laboratory Tests 08/03 0215 Toxicology Vancomycin Peak (20.0 - 26.0 ug/mL) 27.0 H Diagnosis, Assessment Plan Free Text DxA P Notes Free text DxA P notes: 74-year-old male with past medical history of hypertension, type 2 diabetes mellitus, CAD, A-fib, TB status posttreatment, possible CHF? Presented to the ED complaining of worsening right foot pain and was admitted for concerns of osteomyelitis. #Diabetic foot wound of right great toe complicated with right great toe osteomyelitis/Possible Septic Joint Patient with history of diabetes mellitus and prior diabetic foot wound presenting complaining of worsening right toe pain, pressure ulcer of right great toe present Foot XR with on admission 1. Osteomyelitis is suspected involving the medial base of the first distal phalanx and the distal medial corner of the first proximal phalanx. 2. Joint space widening at the first interphalangeal joint raises concern for possible septic joint. 3. No soft tissue gas is identified. Lactic acid had jumped up to 3.2, now downtrending to 2.3. ESR and CRP elevated at 30 and 32 respectively -Podiatry on board, recommendations appreciated -MRI: soft tissue swelling in great toe extending to dorsum of foot. small abscess in dorsal and medial soft tissue. Osteomyelitis of the head of great toe proximal phalans. Joint effusion which may relate to septic arthritis. -NM bone scan: focal increaed uptake within the 1st toe consistent with tiptake within active infectious/inflammatoyr change -Continue Vanco and cefepime -ID consulted, recs appreciated -Follow-up arterial Dopplers of lower extremity -Follow-up blood cultures #UTI Patient with complaints of polyuria and pelvic fullness with UA showing leukocyte esterase positive 1+, WBCs 12-20, no bacteria -Follow-up urine culture: no growth at 24 hours -Patient already on appropriate antibiotics #Type 2 diabetes mellitus with peripheral neuropathy Patient with history of type 2 diabetes mellitus A1c is 9.3 -LDSSI -Can start scheduled Lantus and mealtime lispro depending on utilization of LDSSI #Hypercalcium (resolved) -Continue monitor on a.m. labs #Hyperbilirubinemia - resolved Patient with bilirubin 1.6 on admission. Denying any abdominal pain discomfort -reseolved t bili wnl #History of hypertension Patient is on Coreg 3.125 mg twice daily, losartan 50 mg daily -resumed home meds #CAD Patient with history of CAD -Continue home aspirin and atorvastatin CODE STATUS: Full code DVT px - Lovenox Diet: Carb consistent NOK: Navdeep Dickerson (son) [phone] Dispo: Pending clinical progress and podiatry recs Plan: -Pending Dopplers -Continue Vanco and cefepime -Follow-up further ID and podiatry recommendations Discussed with attending Quality: Gen Med Crit Care VTE Prophylaxis VTE prophylaxis initiated: yes Vanessa Nur 08/03/24 1806: Attestations Teaching Physician Attestation F/U visit w/o resident: I personally saw the patient and reviewed the resident's note. I . . . agree with the resident's findings and plan. at 1329 at 1807 RPT #:[id number] END OF REPORT [facility] 2024-08-03 07:35:00 ([facility] Podiatry Progress Note REPORT#:[id number] REPORT STATUS: Signed REPORT INITIALIZATION DATE:08/03/24 TIME: 734 PATIENT: SEYMOUR SNOW UNIT #: [id number] ROOM/BED: [address] : 48 AGE: 74 SEX: M ATTEND: Vanessa Nur MD ADM AUTHOR: Twyla Crane DPM R1 REPT SERVICE DT/TIME: 08/03/24 3135 * ALL edits or amendments must be made on the electronic/computer document * Subjective HPI: Patient seen at bedside Objective Physical Exam Wound/incision: Location: RIGHT LOWER EXTREMITY FOCUSED PHYSICAL EXAM: VASCULAR: DP/PT pulses nonpalpable, less than 3 seconds capillary refill time, temperature gradient cool to warm distal to proximal. Mild edema. DERMATOLOGIC: Chronic non-pressure ulcer of the right hallux at the nail bed. Does not probe deep, superficial. No drainage. Mild erythema and edema. Edema present in the entire right foot. Wound measuring 0.1 x 0.2 x 0.1 cm. MUSCULOSKELETAL: Muscle strength testing, 5/5 for dorsiflexion, plantarflexion, inversion, and eversion. Positive pain to palpation. Mild equinus. NEUROLOGIC: Gross epicritic sensation diminished for light touch and proprioception. Diagnosis, Assessment Plan Free Text A P: ASSESSMENT: 1. 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 2. Cellulitis, right foot. 3. Type 2 diabetes mellitus with peripheral neuropathy. 4. Peripheral arterial disease. PLAN: 1. The patient was evaluated and examined at bedside. All questions and concerns from the patient addressed to the patient's satisfaction. 2. Reviewed labs and vital signs. 3. Reviewed imaging, right foot, impression shows OM suspected involving the medial base of the first distal phalanx and the distal medial corner of the first proximal phalanx. Joint space widening at the first interphalangeal joint raises concern for possible septic joint. No soft tissue gap is identified. 4. Ordered MRI, shows osteomyelitis of the head of the great toe proximal phalanx and base of the distal phalanx. Pathological fracture of the medial base of the great toe distal phalanx. First interphalangeal joint effusion which may relate to septic arthritis. 5. Ordered white blood cell labeled bone scan, shows focal increased uptake within the right first toe region consistent with active infection and inflammatory change. 6. Ordered arterial Doppler, pending. Surgical intervention necessary. Discussed hallux amputation with patient. Patient states that he does not want to go through surgery. Patient does not want to amputate his toe. Patient is refusing surgery. Patient states that he would like to try long-term antibiotics. Discussed with patient the risks and benefits to surgery as well as long-term antibiotics. Since patient is refusing surgery, patient is cleared from the podiatry standpoint for discharge. Appreciate ID recommendations for antibiotics. Will continue to follow while in house. Patient is to follow-up outpatient with Dr. Swanson. Plan discussed with Dr. Swanson at 2012 at 1746 RPT #:[id number] END OF REPORT [facility] 2024-08-02 09:25:00 [facility] Infectious Dis. Progress Note REPORT#:[id number] REPORT STATUS: Signed REPORT INITIALIZATION DATE:08/02/24 TIME: 924 PATIENT: SEYMOUR SNOW UNIT #: [id number] ROOM/BED: [address] : [address] AGE: 74 SEX: M ATTEND: Vanessa Nur MD ADM AUTHOR: Raghav Johnson MD REPT SERVICE DT/TIME: 08/02/24924 * ALL edits or amendments must be made on the electronic/computer document * Subjective HPI: Afebrile Objective General VS/I O: Vital Signs Date Temp Pulse Resp B/P B/P Mean Pulse Ox FiO2 08/02-08/03 36.5-36.9 49-75 14-15 103-163/68-99 79.7-119.9 91-96 Last Documented: Result Date Time Pulse Ox 91 08/03 1555 B/P 115/70 08/03 1555 B/P Mean 85.4 08/03 1555 O2 Delivery Room air 08/03 1555 Temp 36.5 / 1555 Pulse 61 08/03 1555 Resp 14 08/03 1555 Vital Signs: Date Time Temp Pulse Resp B/P B/P Pulse O2 O2 Flow FiO2 Mean Ox Delivery Rate 08/03 1555 36.5 61 14 115/70 85.4 91 Room air 08/03 1319 69 103/68 79.7 92 08/03 1120 36.7 67 14 161/99 119.9 95 Room air 08/03 0736 36.9 75 15 163/98 119.5 93 Room air 08/03 0314 36.6 68 15 158/87 110.3 96 Room air 08/02 2303 36.7 64 14 150/83 105.4 93 Room air 08/02 2017 36.5 49 15 111/71 84.0 91 Room air 24 hour I O ending at 0700: 08/03 0700 08/02 1900 Intake Total 1800.00 Output Total Balance 1800.00 Intake, IV 550.00 Intake, Oral 1250 Number Voids 5 PATIENT WEIGHT: Weight (lb): 240 Weight (oz): 8.07 Weight (kg): 108.862 Medications: Active Meds + DC'd Last 24 Hrs Guaifenesin/Dextromethorphan (HUMIBID DM,AMIBID DM,Q-BID, MUCINEX DM) 1 TAB Q12HR PO Magnesium Sulfate (MAGNESIUM SULFATE 4GM) 100 ML ONCE ONE IV (DC) Cefepime HCl (MAXIPIME) 1 GM Q8HR IV Sterile Water (WATER,STERILE ) 10 ML Heparin Sodium (Porcine) (HEPARIN SODIUM) 5,000 UNIT Q8HR SUBQ Vancomycin HCl (VANCOCIN) 1,750 MG Q24H IV Sodium Chloride (NS 0.9%) 500 ML Insulin Human Lispro (Admelog) Low Dose Sliding Scale: *See ADMIN CRIT for DOSE* Q6HR SUBQ Aspirin (ASPIRIN CHEWABLE) 81 MG DAILY PO Acetaminophen (TYLENOL REGULAR) 650 MG Q6H PRN PRN PO Atorvastatin Calcium (LIPITOR) 40 MG DAILY PO Carvedilol (COREG) 3.125 MG BID PO Dextrose/Water (DEXTROSE 50% SYR) 25 ML ASDIR PRN IV (CKD) Famotidine (PEPCID) 20 MG Q12HR PO Glucagon (GLUCAGON) 1 MG ASDIR PRN IM Losartan Potassium (COZAAR) 50 MG DAILY PO Albuterol/Ipratropium (DUONEB 3MG-0.5MG/3 ML) 3 ML RTQ6H PRN PRN INH Hydrocodone Bitart/Acetaminophen (NORCO 5/325 TABLET) 1 TAB Q6H PRN PRN PO Miscellaneous Information (VANCOMYCIN PHARMACY TO DOSE) 1 EACH ASDIR IV (CKD) Naloxone HCl (NARCAN) 0.4 MG Q2M PRN PRN IV Naloxone HCl (NARCAN) 0.4 MG Q2M PRN PRN IV Ondansetron HCl (ZOFRAN 4 MG/2 ML INJ) 4 MG Q4H PRN PRN IV Tramadol HCl (ULTRAM) 50 MG Q6H PRN PRN PO Physical Exam General appearance: alert, awake Cardiovascular: normal heart sounds, regular rate rhythm Respiratory: clear to auscultation Abdomen: soft Extremities: no edema Results Findings/Data: Laboratory Tests 08/03 08/03 08/03 08/02 08/02 1118 0538 214 2335 2015 Chemistry Sodium (136 - 145 mmol/L) 142 Potassium (3.5 - 5.1 mmol/L) 3.7 Chloride (98 - 107 mmol/L) 107 Carbon Dioxide (20.0 - 31.0 mmol/L) 28.0 Anion Gap (10 - 20 mmol/L) 11 BUN (9 - 23 mg/dL) 13 Creatinine (0.55 - 1.30 mg/dL) 1.01 Glomerular Filtr Rate (mL/min) 77 Glucose (74 - 106 mg/dL) 173 H POC Glucose (74 - 106 MG/DL) 140 H 133 H 172 H 147 H Calcium (8.7 - 10.4 mg/dL) 8.7 Magnesium (1.6 - 2.6 mg/dL) 1.2 L Total Bilirubin (0.20 - 1.10 mg/dL) 0.60 Conjugated Bilirubin (0.1 - 0.3 mg/dL) 0.2 Unconjugated Bilirubin (0 - 1.1 mg/dL) 0.40 AST (0 - 33 U/L) 34 H ALT (10 - 49 U/L) 17 Total Alk Phosphatase (46 - 116 U/L) 71 Total Protein (5.7 - 8.2 g/dL) 5.6 L Albumin (3.4 - 5.0 g/dL) 3.1 L Specimen Hemolysis (0 - 3 Index/DL) 1 Laboratory Tests 08/03 214 Hematology WBC (5.0 - 12.0 x10 3/uL) 3.4 L RBC (4.70 - 6.10 x10 6/uL) 3.86 L Hgb (14.0 - 18.0 g/dL) 11.9 L Hct (37.0 - 49.0 %) 35.6 L MCV (80 - 94 fL) 92 MCH (27 - 31 pg) 30.8 MCHC (33 - 37 g/dL) 33.4 RDW (11.5 - 15.5 %) 13.6 Plt Count (130 - 400 x10 3/uL) 126 L MPV (9.4 - 16.4 fL) 10.0 Neut % (Auto) (43 - 65 %) 47.2 Lymph % (Auto) (20.5 - 45.5 %) 34.7 [place] % (Auto) (5.5 - 11.7 %) 12.0 H Eos % (Auto) (0.9 - 2.9 %) 5.2 H Baso % (Auto) (0.2 - 1.0 %) 0.6 Neut # (Auto) (2.2 - 4.8 x10 3/uL) 1.62 L Lymph # (Auto) (1.3 - 2.9 x10 3/uL) 1.19 L [place] # (Auto) (0.3 - 0.8 x10 3/uL) 0.41 Eos # (Auto) (0.0 - 0.2 x10 3/uL) 0.18 Baso # (Auto) (0.0 - 0.1 x10 3/uL) 0.02 Immature Gran % (0.0 - 2.0 %) 0.3 Nucleated RBC % (0 - 1.0 %) 0.0 Laboratory Tests 08/03 0215 Toxicology Vancomycin Peak (20.0 - 26.0 ug/mL) 27.0 H Diagnosis, Assessment Plan Free Text A P: - Right great toe cellulitis with underlying osteomyelitis involving the first distal phalanx and proximal phalanx septic joint -Elevated inflammatory markers -BARAK -Uncontrolled diabetes mellitus with hemoglobin A1c of 9 recs -Continue vancomycin. Switch Zosyn to cefepime. -Podiatry is on the case MRI of the foot is pending. -Continue current care. Strict glycemic control. Thank you for the consult. Will follow. at 1610 RPT #:[id number] END OF REPORT [facility] 2024-08-02 07:40:00 [facility]) Hospitalist Progress Note REPORT#:[id number] REPORT STATUS: Signed REPORT INITIALIZATION DATE:08/02/24 TIME: 739 PATIENT: SEYMOUR SNOW UNIT #: [id number] ROOM/BED: [address] : [address] AGE: 74 SEX: M ATTEND: Vanessa Nur MD ADM AUTHOR: Jennifer De La Cruz MD R3 REPT SERVICE DT/TIME: 08/02/24 07 * ALL edits or amendments must be made on the electronic/computer document * Jennifer De La Cruz 08/02/24 0740: Subjective Chief complaint: toe pain HPI: No acute events overnights. Pt remains afebrile. Pt with discomfort in R foot. Denies fevers, chills. Pending MRI foot, bone scan, dopplers Review of Systems Free Text ROS Notes Free Text ROS Notes: Negative except as otherwise mentioned in HPI Objective General VS/I O: Vital Signs: Date Time Temp Pulse Resp B/P B/P Pulse O2 O2 Flow FiO2 Mean Ox Delivery Rate 08/02 0737 98.1 68 14 129/75 93.3 94 Room air 08/02 0527 97.7 65 18 99/61 73.6 95 08/02 0117 97.5 68 17 144/81 102.2 95 08/01 2239 97.7 71 18 112/75 87.1 92 08/01 1545 98.1 75 15 99/64 75.7 93 Room air 08/01 1130 97.9 85 15 102/67 78.8 90 Room air 24 hour I O ending at 0700: 08/02 0700 08/01 1900 Intake Total 500.00 Output Total Balance 500.00 Intake, IV 500.00 Number Voids 3 PATIENT WEIGHT: Weight (lb): 240 Weight (oz): 8.07 Weight (kg): 109.091 Physical Exam General appearance: alert, awake, oriented Head/Eyes: atraumatic, clear cornea, EOMI, normal conjunctiva/sclera, normal eyelids/periorb., normocephalic, PERRL ENT: normal dentition, normal ear left, normal ear right, normal nose, normal pharynx, normal sinus Neck: full range of motion, non-tender, normal thyroid, supple/no meningismus, no bruit/NL carotids, no JVD, no masses or swelling Cardiovascular: normal capillary refill, regular rate rhythm Respiratory: clear to auscultation, no distress Abdomen: non-tender, normal bowel sounds, soft, no distention, no guarding, no hernia, no mass/organomegaly, no rebound Rectal: not indicated Extremities: moves all, normal capillary refill, normal range of motion, no edema Musculoskeletal: normal inspection Neuro/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: alert, oriented X 3 Skin: r foot swelling w/ darkening of skin Psychiatry: normal affect, normal judgment/insight, normal mood, not homicidal, not suicidal, no hallucinations Results Findings/Data: Laboratory Tests 08/02 08/02 08/02 08/02 08/01 0751 0674 9609 [id number] 9103 Chemistry Sodium (136 - 145 mmol/L) 139 Potassium (3.5 - 5.1 mmol/L) 4.1 Chloride (98 - 107 mmol/L) 105 Carbon Dioxide (20.0 - 31.0 mmol/L) 24.0 Anion Gap (10 - 20 mmol/L) 14 BUN (9 - 23 mg/dL) 16 Creatinine (0.55 - 1.30 mg/dL) 1.24 Glomerular Filtr Rate (mL/min) 60 Glucose (74 - 106 mg/dL) 126 H POC Glucose (74 - 106 MG/DL) 148 H 159 H 173 H Lactic Acid (0.50 - 1.99 mmol/L) 1.10 Calcium (8.7 - 10.4 mg/dL) 8.8 Magnesium (1.6 - 2.6 mg/dL) 1.3 L Total Bilirubin (0.20 - 1.10 mg/dL) 0.80 Conjugated Bilirubin (0.1 - 0.3 mg/dL) 0.3 Unconjugated Bilirubin (0 - 1.1 mg/dL) 0.50 AST (0 - 33 U/L) 31 ALT (10 - 49 U/L) 18 Total Alk Phosphatase (46 - 116 U/L) 64 Total Protein (5.7 - 8.2 g/dL) 5.7 Albumin (3.4 - 5.0 g/dL) 3.2 L Specimen Hemolysis (0 - 3 Index/DL) 0 08/01 08/01 1544 0934 Chemistry POC Glucose (74 - 106 MG/DL) 188 H Lactic Acid (0.50 - 1.99 mmol/L) 2.10 *H Laboratory Tests 08/02 0324 Coagulation INR 1.3 PTT ([place]) (23.4 - 37.0 SECONDS) 34.6 PT Patient/Control Mix (9.4 - 12.5 SECONDS) 14.3 H Laboratory Tests 08/02 0324 Hematology WBC (5.0 - 12.0 x10 3/uL) 5.3 RBC (4.70 - 6.10 x10 6/uL) 3.91 L Hgb (14.0 - 18.0 g/dL) 12.0 L Hct (37.0 - 49.0 %) 35.1 L MCV (80 - 94 fL) 90 MCH (27 - 31 pg) 30.7 MCHC (33 - 37 g/dL) 34.2 RDW (11.5 - 15.5 %) 13.7 Plt Count (130 - 400 x10 3/uL) 151 MPV (9.4 - 16.4 fL) 9.6 Neut % (Auto) (43 - 65 %) 46.5 Lymph % (Auto) (20.5 - 45.5 %) 35.4 [place] % (Auto) (5.5 - 11.7 %) 11.7 Eos % (Auto) (0.9 - 2.9 %) 5.3 H Baso % (Auto) (0.2 - 1.0 %) 0.9 Neut # (Auto) (2.2 - 4.8 x10 3/uL) 2.45 Lymph # (Auto) (1.3 - 2.9 x10 3/uL) 1.87 [place] # (Auto) (0.3 - 0.8 x10 3/uL) 0.62 Eos # (Auto) (0.0 - 0.2 x10 3/uL) 0.28 H Baso # (Auto) (0.0 - 0.1 x10 3/uL) 0.05 Immature Gran % (0.0 - 2.0 %) 0.2 Nucleated RBC % (0 - 1.0 %) 0.0 Laboratory Tests 08/01 1222 Toxicology Random Vancomycin (ug/mL) 7.7 Diagnosis, Assessment Plan Free Text DxA P Notes Free text DxA P notes: 74-year-old male with past medical history of hypertension, type 2 diabetes mellitus, CAD, A-fib, TB status posttreatment, possible CHF? Presented to the ED complaining of worsening right foot pain and was admitted for concerns of osteomyelitis. #Diabetic foot wound of right great toe complicated with right great toe osteomyelitis/Possible Septic Joint Patient with history of diabetes mellitus and prior diabetic foot wound presenting complaining of worsening right toe pain, pressure ulcer of right great toe present Foot XR with on admission 1. Osteomyelitis is suspected involving the medial base of the first distal phalanx and the distal medial corner of the first proximal phalanx. 2. Joint space widening at the first interphalangeal joint raises concern for possible septic joint. 3. No soft tissue gas is identified. Lactic acid had jumped up to 3.2, now downtrending to 2.3. ESR and CRP elevated at 30 and 32 respectively -Podiatry on board, recommendations appreciated -F/u MRI foot bone scan pending -Continue Vanco and Zosyn -ID consulted, recs appreciated -Follow-up arterial Dopplers of lower extremity -Follow-up blood cultures #UTI Patient with complaints of polyuria and pelvic fullness with UA showing leukocyte esterase positive 1+, WBCs 12-20, no bacteria -Follow-up urine culture -Patient already on appropriate antibiotics #Type 2 diabetes mellitus with peripheral neuropathy Patient with history of type 2 diabetes mellitus A1c is 9.3 -LDSSI -Can start scheduled Lantus and mealtime lispro depending on utilization of LDSSI #Hypercalcium (resolved) -Continue monitor on a.m. labs #Hyperbilirubinemia Patient with bilirubin 1.6 on admission. Denying any abdominal pain discomfort -Continue to trend #History of hypertension Patient is on Coreg 3.125 mg twice daily, losartan 50 mg daily Patient's blood pressure currently soft therefore we will hold losartan at this time and resume as tolerated #CAD Patient with history of CAD -Continue home aspirin and atorvastatin CODE STATUS: Full code DVT px - Lovenox Diet: Carb consistent NOK: Navdeep Dickerson (son) [phone] Dispo: Pending clinical progress Plan: -Pending MRI foot, bone scan, Dopplers -Continue Vanco and Zosyn -Follow-up further ID and podiatry recommendations Discussed with attending Zander Butt 08/02/24 0831: Objective Results Results: labs reviewed, vital signs reviewed, x-ray personally reviewed, current med profile rev'd Attestations Physician Attestation Agree w/findings plan: I personally saw and examined the patient on 08/02/24. I have reviewed and agree with the resident's findings, including all diagnostic interpretations and treatment plan as written. Risk of complications and/or Morbidity or Mortality of Patient Management- High risk. Await MRI foot. ID and podiatry following. podiaty will decide on any surgery. at 1119 at 1002 RPT #:[id number] END OF REPORT [facility] 2024-08-02 07:19:00 ([facility]) Podiatry Progress Note REPORT#:[id number] REPORT STATUS: Signed REPORT INITIALIZATION DATE:08/02/24 TIME: 718 PATIENT: SEYMOUR SNOW UNIT #: [id number] ROOM/BED: [address] : [address] AGE: 74 SEX: M ATTEND: Vanessa Nur MD ADM AUTHOR: Twyla Crane DPM R1 REPT SERVICE DT/TIME: 08/02/24718 * ALL edits or amendments must be made on the electronic/computer document * Subjective HPI: Patient seen at bedside Objective Physical Exam Wound/incision: Location: RIGHT LOWER EXTREMITY FOCUSED PHYSICAL EXAM: VASCULAR: DP/PT pulses nonpalpable, less than 3 seconds capillary refill time, temperature gradient cool to warm distal to proximal. Mild edema. DERMATOLOGIC: Chronic non-pressure ulcer of the right hallux at the nail bed. Does not probe deep, superficial. No drainage. Mild erythema and edema. Edema present in the entire right foot. Wound measuring 0.1 x 0.2 x 0.1 cm. MUSCULOSKELETAL: Muscle strength testing, 5/5 for dorsiflexion, plantarflexion, inversion, and eversion. Positive pain to palpation. Mild equinus. NEUROLOGIC: Gross epicritic sensation diminished for light touch and proprioception. Diagnosis, Assessment Plan Free Text A P: ASSESSMENT: 1. 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 2. Cellulitis, right foot. 3. Type 2 diabetes mellitus with peripheral neuropathy. 4. Peripheral arterial disease. PLAN: 1. The patient was evaluated and examined at bedside. All questions and concerns from the patient addressed to the patient's satisfaction. 2. Reviewed labs and vital signs. 3. Reviewed imaging, right foot, impression shows OM suspected involving the medial base of the first distal phalanx and the distal medial corner of the first proximal phalanx. Joint space widening at the first interphalangeal joint raises concern for possible septic joint. No soft tissue gap is identified. 4. Ordered MRI, pending. 5. Ordered white blood cell labeled bone scan, pending. 6. Ordered arterial Doppler, pending. Plan discussed with Dr. Swanson at 1151 at 1746 RPT #:[id number] END OF REPORT [facility] 2024-08-01 13:33:00 [facility] Prog.Note-Vancomycin REPORT#:[id number] REPORT STATUS: Signed REPORT INITIALIZATION DATE:08/01/24 TIME: 1332 PATIENT: SEYMOUR SNOW UNIT #: [id number] ROOM/BED: [address] : [birth year] AGE: 74 SEX: M ATTEND: Zander Gaston MD ADM [facility]TIME: 08/01/24 1333 * ALL edits or amendments must be made on the electronic/computer document * Vancomycin Vancomycin Medication Therapy Goal: AUC 400-600 mg*hr/L Indication for treatment: Bone/Joint Day of therapy: 2 VS and I/O: Vital Signs Date Temp Pulse Resp B/P B/P Mean Pulse Ox FiO2 07/31-08/01 36.4-36.6 71-85 15-18 98-125/63-84 75.0-97.3 90-96 72 hours ending at 0700 08/01 0700 07/31 1900 07/31 0707/30 1900 07/30 07/29 0700 1900 Intake 200 Total Output Total Balance 200 Intake, 200 Oral Number 2 Voids Patient 109.091 kg 109.091 kg Weight Weight Stated/Rep Stated/Rep orted orted Measuremen t Method 72 Hour I O Total 08/01 0700 07/31 0700 07/30 0700 Intake Total 200 Output Total Balance 200 Labs: Laboratory Tests: 08/01 1222 Toxicology Random Vancomycin (ug/mL) 7.7 Laboratory Test : 08/01 07/31 0003 1359 Chemistry BUN (9 - 23 mg/dL) 17 18 Creatinine (0.55 - 1.30 mg/dL) 1.31 H 1.35 H Hematology WBC (5.0 - 12.0 x10 3/uL) 6.2 6.4 Microbiology: 07/31 2013 URINE: Urine Culture - RES 07/31 135 NASAL: Influenza Virus Type B Antigen - COMP 07/31 135 NASAL: Influenza Virus Type A Antigen - COMP 07/31 135 BLOOD: Blood Culture - RES 07/31 1249 BLOOD: Blood Culture - ORD Pertinent tests: Medication(s) Ordered: Anti-Infective Agents Sig/Mary Start time Last Medication Dose Route Stop Time Status Admin Vancomycin HCl 1,750 MG Q24H 08/01 2300 AC Sodium Chloride 500 ML IV 08/06 2301 Vancomycin HCl/ 300 ML ONCE ONE 07/31 2245 DC 07/31 Dextrose IV 07/31 2356 2352 Vancomycin HCl 1,500 MG ONCE ONE 07/31 2230 DC Sodium Chloride 500 ML IV 08/01 0029 Piperacillin Sod/ 3.375 GM Q8HR 07/31 2200 AC 08/01 Tazobactam Sod IV 08/07 2159 0534 Sodium Chloride 100 ML Piperacillin Sod/ 3.375 GM X1ED STA 07/31 1712 DC 07/31 Tazobactam Sod IV 07/31 1741 1746 Sodium Chloride 100 ML Vancomycin HCl 1,000 MG X1ED STA 07/31 1711 DC 07/31 Sodium Chloride 250 ML IV 07/31 1840 1746 Autonomic Drugs Sig/Mary Start time Last Medication Dose Route Stop Time Status Admin Albuterol/Ipratropium 3 ML RTQ6H PRN PRN 07/31 2130 AC INH 10/29 2131 Blood Formation,Coagulation Sig/Mary Start time Last Medication Dose Route Stop Time Status Admin Enoxaparin Sodium 40 MG Q24H 07/31 2130 AC 07/31 SUBQ 10/29 2131 2200 Cardiovascular Drugs Sig/Mary Start time Last Medication Dose Route Stop Time Status Admin Atorvastatin Calcium 40 MG DAILY 08/01 0900 AC 08/01 PO 10/30 0901 0851 Carvedilol 3.125 MG BID 08/01 0900 AC 08/01 PO 10/30 0901 0851 Losartan Potassium 50 MG DAILY 08/01 0900 DA PO 10/30 0901 Central Nervous System Agents Sig/Mary Start time Last Medication Dose Route Stop Time Status Admin Aspirin 81 MG DAILY 08/01 1145 AC PO 10/30 1146 Acetaminophen 650 MG Q6H PRN PRN 08/01 09 AC PO 10/30 0901 Hydrocodone Bitart/ 1 TAB Q6H PRN PRN 07/31 2130 AC Acetaminophen PO 08/05 2131 Morphine Sulfate 2 MG Q6H PRN PRN 07/31 2130 DC IV 08/05 2131 Naloxone HCl 0.4 MG Q2M PRN PRN 07/31 2130 AC IV 10/29 2131 Naloxone HCl 0.4 MG Q2M PRN PRN 07/31 2130 AC IV 10/29 2131 Tramadol HCl 50 MG Q6H PRN PRN 07/31 2130 AC PO 08/10 2131 Electrolytic, Caloric, And Eli Sig/Mary Start time Last Medication Dose Route Stop Time Status Admin Dextrose/Water 25 ML ASDIR PRN 08/01 0900 CKD IV 10/30 0901 Lactated Ringer's 1,000 ML .Q10H 08/01 0845 AC 08/01 IV 08/02 0846 0902 Lactated Ringer's 1,000 ML X1ED STA 07/31 1831 DC IV 07/31 1930 Lactated Ringer's 1,000 ML X1ED STA 07/31 1249 DC 07/31 IV 07/31 1348 1412 Gastrointestinal Drugs Sig/Mary Start time Last Medication Dose Route Stop Time Status Admin Famotidine 20 MG Q12HR 08/01 0900 AC 08/01 PO 10/30 0901 0851 Ondansetron HCl 4 MG Q4H PRN PRN 07/31 2130 AC IV 10/29 2131 Hormones And Synthetic Substit Sig/Mary Start time Last Medication Dose Route Stop Time Status Admin Insulin Human Lispro See Dose Q6HR 08/01 1200 AC Insts (1) SUBQ 10/30 1201 Glucagon 1 MG ASDIR PRN 08/01 0900 AC IM 10/30 0901 Other Sig/Mary Start time Last Medication Dose Route Stop Time Status Admin Miscellaneous 1 EACH ASDIR 07/31 2129 CKD Information IV 08/06 2130 Dose Instructions: (1)Insulin Human Lispro: Low Dose Sliding Scale: *See ADMIN CRIT for DOSE* Recent Impressions-Last 72 Hrs RADIOLOGY - XR FOOT 3 + V RT 07/31 1644 Report Impression - Status: SIGNED Entered: 07/31/2024 2077 IMPRESSION: 1. Osteomyelitis is suspected involving the medial base of the first distal phalanx and the distal medial corner of the first proximal phalanx. 2. Joint space widening at the first interphalangeal joint raises concern for possible septic joint. 3. No soft tissue gas is identified. Impression By: Gilberto - Ace Kendrick MD Treatment plan: consult, change regimen Regimen: Vancomycin 1750 mg q24h Follow up: Lab: Vancomycin Peak 08/03/24 @ 0300 Vancomycin Trough 08/03/24 @ 2200 Rationale: Consulting Provider: Gely Roman Dosing weight: 85.8 kg (adjBW) Per RN, scale weight = 118.6 kg and height = 172.7 cm * Pharmacy is consulted to dose vancomycin for bone and joint infx for 7 days ( stop date 08/06/24) * 07/31: T- 36.4 afebrile, WBC 6.4, SCr 1.35 * Blood cultures, and gram stain- NGTD * LD: 2500 mg was ordered on 07/31 (patient was given 1000 mg dose once in the ED. However, per protocol and based on patient s ABW of 109.09 kg, patient should have received 2500 mg dose regardless of renal function. Additonal 1500 mg was administered @ 2352 * Due to scr 1.35, random level was collected to assess renal clearance of vancomycin. * Based on half life of 12.83 and TDD of 1768.21 and CrCl just above 60 mL/min with unknown renal history will cautiously proceed with vancomyin 1750 mg q24 hr dosing. Next scheduled administration 08/01/24 @ 2300 * 08/03 Lean Sensei @ 0300 and Vt @ 2200 DATE DOT SCR/ CRCL LEVELS AUC REGIMEN 07/31 1 1.35/ 62 LD 2500 MG X1 08/01 2 1.31/64 VR @1222= 7.7 1750 mg q24h 08/02 3 08/03 4 vt @ 0300 vp home health @ 2200 at 1345 RPT #:[id number] END OF REPORT [facility] 2024-08-01 12:28:00 [facility] Infect Disease Consult Note REPORT#:[id number] REPORT STATUS: Signed REPORT INITIALIZATION DATE:08/01/24 TIME: 1227 PATIENT: SEYMOUR SNOW UNIT #: [id number] ROOM/BED: [address] : [birth year] AGE: 74 SEX: M ATTEND: Zander Gaston MD ADM AUTHOR: Raghav Johnson MD REPT SERVICE DT/TIME: 08/01/24 1228 * ALL edits or amendments must be made on the electronic/computer document * See Addendum History of Present Illness PCP: PCP: Seth Lin MD HPI: This is a 74-year-old male with history of diabetes mellitus, hypertension presented to the ER with right great toe pain ongoing months. He did receive antibiotics for cellulitis. ID has been consulted osteomyelitis. His admission here he has been afebrile stable saturating well on room air labs reveal normal blood WBC count. ESR was elevated at 30, Creatinine is 3 1, A1c was 9.3. CRP was 32. Urine analysis showed only 11-20 WBCs 1+ leukocyte esterase. Blood cultures from admission are negative. Urine cultures are negative. Patient is on vancomycin and Zosyn. X-ray of the foot showing osteomyelitis with suspected medial base of the first distal phalanx and distal medial corner of the first proximal phalanx. Concerning for septic joint. No gas noted. History - Adult longitudinal Past medical history: Reports: Congestive heart failure, Diabetes mellitus, Hypertension, Dyslipidemia. Past surgical history: Reports: Cholecystectomy. Additional surgical history: Neck surgery, 40 years ago Additional family history: none Alcohol use: Denies EtOH use Drug use: Denies recreational drugs Smoking status for patients 13 years old or older: Never Smoker Other social history: Good social support Allergies: Coded Allergies: No Known Allergies (10/26/18) Diagnosis, Assessment Plan Free Text DxA P Notes Free text DxA P notes: - Right great toe cellulitis with underlying osteomyelitis involving the first distal phalanx and proximal phalanx septic joint -Elevated inflammatory markers -BARAK -Uncontrolled diabetes mellitus with hemoglobin A1c of 9 recs -Continue vancomycin. Switch Zosyn to cefepime. -Podiatry is on the case MRI of the foot is pending. -Continue current care. Strict glycemic control. Thank you for the consult. Will follow. at 0925 Addendum 1: 08/02/24 09 by Raghav Johnson MD Physical Exam Wound/incision: Location: RIGHT LOWER EXTREMITY FOCUSED PHYSICAL EXAM: VASCULAR: DP/PT pulses nonpalpable, less than 3 seconds capillary refill time, temperature gradient cool to warm distal to proximal. Mild edema. DERMATOLOGIC: Chronic non-pressure ulcer of the right hallux at the nail bed. Does not probe deep, superficial. No drainage. Mild erythema and edema. Edema present in the entire right foot. Wound measuring 0.1 x 0.2 x 0.1 cm. MUSCULOSKELETAL: Muscle strength testing, 5/5 for dorsiflexion, plantarflexion, inversion, and eversion. Positive pain to palpation. Mild equinus. NEUROLOGIC: Gross epicritic sensation diminished for light touch and proprioception. Review of Systems Musculoskeletal: extremity pain, extremity swelling, joint pain. All systems rev neg: except as marked Objective General VS/I O: Vital Signs: Date Time Temp Pulse Resp B/P B/P Pulse O2 O2 Flow FiO2 Mean Ox Delivery Rate 07/31 1821 97.7 73 16 125/84 97.3 93 07/31 1331 Room air 07/31 1242 97.9 84 17 120/82 94.3 94 PATIENT WEIGHT: Weight (lb): Weight (oz): Weight (kg): 109.091 Medications: Active Meds + DC'd Last 24 Hrs Lactated Ringer's (LACTATED RINGERS) 1,000 ML X1ED STA IV (DC) Piperacillin Sod/Tazobactam Sod (ZOSYN) 3.375 GM X1ED STA IV (DC) Sodium Chloride (SODIUM CHLORIDE 0.9% MBP) 100 ML Vancomycin HCl (VANCOCIN) 1,000 MG X1ED STA IV (DC) Sodium Chloride (SODIUM CHLORIDE 0.9%) 250 ML Ceftriaxone Sodium (ROCEPHIN) 1,000 MG X1ED STA IV (DC) Sterile Water (WATER,STERILE ) 10 ML Lactated Ringer's (LACTATED RINGERS) 1,000 ML X1ED STA IV (DC) Hydrocodone B at 0927 RPT #:[id number] END OF REPORT [facility] 2024-08-01 07:19:00 [facility] Podiatry Progress Note REPORT#:[id number] REPORT STATUS: Signed REPORT INITIALIZATION DATE:08/01/24 TIME: 718 PATIENT: SEYMOUR SNOW UNIT #: [id number] ROOM/BED: [address] : [address] AGE: 74 SEX: M ATTEND: Vanessa Nur MD ADM AUTHOR: Twyla Crane DPM R1 REPT SERVICE DT/TIME: 08/01/24718 * ALL edits or amendments must be made on the electronic/computer document * Subjective HPI: Patient seen at bedside Objective General VS: Last Documented: Result Date Time Pulse Ox 90 08/01 1130 B/P 102/67 08/01 1130 B/P Mean 78.8 08/01 1130 O2 Delivery Room air 08/01 1130 Temp 97.9 08/01 1130 Pulse 85 08/01 1130 Resp 15 08/01 1130 PATIENT WEIGHT: Weight (lb): 240 Weight (oz): 8.07 Weight (kg): 109.091 Physical Exam Wound/incision: Location: RIGHT LOWER EXTREMITY FOCUSED PHYSICAL EXAM: VASCULAR: DP/PT pulses nonpalpable, less than 3 seconds capillary refill time, temperature gradient cool to warm distal to proximal. Mild edema. DERMATOLOGIC: Chronic non-pressure ulcer of the right hallux at the nail bed. Does not probe deep, superficial. No drainage. Mild erythema and edema. Edema present in the entire right foot. Wound measuring 0.1 x 0.2 x 0.1 cm. MUSCULOSKELETAL: Muscle strength testing, 5/5 for dorsiflexion, plantarflexion, inversion, and eversion. Positive pain to palpation. Mild equinus. NEUROLOGIC: Gross epicritic sensation diminished for light touch and proprioception. Diagnosis, Assessment Plan Free Text A P: ASSESSMENT: 1. 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 2. Cellulitis, right foot. 3. Type 2 diabetes mellitus with peripheral neuropathy. 4. Peripheral arterial disease. PLAN: 1. The patient was evaluated and examined at bedside. All questions and concerns from the patient addressed to the patient's satisfaction. 2. Reviewed labs and vital signs. 3. Reviewed imaging, right foot, impression shows OM suspected involving the medial base of the first distal phalanx and the distal medial corner of the first proximal phalanx. Joint space widening at the first interphalangeal joint raises concern for possible septic joint. No soft tissue gap is identified. 4. Ordered MRI, pending. 5. Ordered white blood cell labeled bone scan, pending. 6. Ordered arterial Doppler, pending. Plan discussed with Dr. Lutz at 1252 at 1629 RPT #:[id number] END OF REPORT [facility] 2024-08-01 07:03:00 [facility] REPORT#:[id number] REPORT STATUS: Signed REPORT INITIALIZATION DATE:08/01/24 TIME: 702 PATIENT: SEYMOUR SNOW UNIT #: [id number] ROOM/BED: [address] : [address] AGE: 74 SEX: M ATTEND: Zander Gaston MD ADM AUTHOR: Jennifer De La Cruz MD R3 REPT SERVICE DT/TIME: 08/01/24 0703 * ALL edits or amendments must be made on the electronic/computer document * Jennifer De La Cruz 08/01/24 0703: Subjective Chief complaint: toe pain HPI: No acute events overnight. Patient seen resting comfortably in bed this morning. Does continue to endorse foot pain. Denying any fevers or chills. No other acute concerns or questions at this time. Review of Systems Free Text ROS Notes Free Text ROS Notes: Negative except as otherwise mentioned in HPI Objective General VS/I O: Vital Signs: Date Time Temp Pulse Resp B/P B/P Pulse O2 O2 Flow FiO2 Mean Ox Delivery Rate 08/01 1130 97.9 85 15 102/67 78.8 90 Room air 08/01 0658 97.5 79 15 106/65 78.5 94 Room air 08/01 0610 97.5 77 18 98/63 75.0 94 07/31 2123 97.5 71 18 120/80 93.2 96 07/31 1821 97.7 73 16 125/84 97.3 93 07/31 1331 Room air 07/31 1242 97.9 84 17 120/82 94.3 94 24 hour I O ending at 0700: 08/01 0700 07/31 1900 Intake Total 200 Output Total Balance 200 Intake, Oral 200 Number Voids 2 Patient 109.091 kg 109.091 kg Weight Weight Stated/Reported Stated/Reported Measurement Method PATIENT WEIGHT: Weight (lb): 240 Weight (oz): 8.07 Weight (kg): 109.091 Physical Exam General appearance: alert, awake, oriented Head/Eyes: atraumatic, clear cornea, EOMI, normal conjunctiva/sclera, normal eyelids/periorb., normocephalic, PERRL ENT: normal dentition, normal ear left, normal ear right, normal nose, normal pharynx, normal sinus Neck: full range of motion, non-tender, normal thyroid, supple/no meningismus, no bruit/NL carotids, no JVD, no masses or swelling Cardiovascular: normal capillary refill, regular rate rhythm Respiratory: clear to auscultation, no distress Abdomen: non-tender, normal bowel sounds, soft, no distention, no guarding, no hernia, no mass/organomegaly, no rebound Rectal: not indicated Extremities: moves all, normal capillary refill, normal range of motion, no edema Musculoskeletal: normal inspection Neuro/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: alert, oriented X 3 Skin: r foot swelling w/ darkening of skin Psychiatry: normal affect, normal judgment/insight, normal mood, not homicidal, not suicidal, no hallucinations Results Findings/Data: Laboratory Tests 08/01 08/01 08/01 08/01 07/31 0923 0421 0003 0003 4 Chemistry Sodium (136 - 145 mmol/L) 134 L Potassium (3.5 - 5.1 mmol/L) 4.1 Chloride (98 - 107 mmol/L) 99 Carbon Dioxide (20.0 - 31.0 26.0 mmol/L) Anion Gap (10 - 20 mmol/L) 13 BUN (9 - 23 mg/dL) 17 Creatinine (0.55 - 1.30 mg/dL) 1.31 H Glomerular Filtr Rate (mL/min) 56 Glucose (74 - 106 mg/dL) 194 H Lactic Acid (0.50 - 1.99 mmol/L) 2.10 *H 2.30 *H 2.90 *H 3.10 *H Calcium (8.7 - 10.4 mg/dL) 9.8 Specimen Hemolysis (0 - 3 1 Index/DL) 07/314 1359 1359 Chemistry Sodium (136 - 145 mmol/L) 135 L Potassium (3.5 - 5.1 mmol/L) 3.7 Chloride (98 - 107 mmol/L) 100 Carbon Dioxide (20.0 - 31.0 mmol/L) 26.0 Anion Gap (10 - 20 mmol/L) 13 BUN (9 - 23 mg/dL) 18 Creatinine (0.55 - 1.30 mg/dL) 1.35 H Glomerular Filtr Rate (mL/min) 54 Glucose (74 - 106 mg/dL) 153 H Hemoglobin A1c (0.0 - 5.6 %) 9.30 H Lactic Acid (0.50 - 1.99 mmol/L) 2.40 *H Calcium (8.7 - 10.4 mg/dL) 10.9 H Total Bilirubin (0.20 - 1.10 mg/dL) 1.60 H Conjugated Bilirubin (0.1 - 0.3 mg/dL) 0.5 H Unconjugated Bilirubin (0 - 1.1 mg/dL) 1.10 AST (0 - 33 U/L) 37 H ALT (10 - 49 U/L) 24 Total Alk Phosphatase (46 - 116 U/L) 88 Troponin I High Sens (0.00 - 54.00 ng/L) 5.77 C-Reactive Protein (0.0 - 0.9 mg/L) 32.0 H Total Protein (5.7 - 8.2 g/dL) 7.5 Albumin (3.4 - 5.0 g/dL) 4.2 Lipase (12 - 53 U/L) 28 Specimen Hemolysis (0 - 3 Index/DL) 0 Laboratory Tests 08/01 07/31 0003 1359 Hematology WBC (5.0 - 12.0 x10 3/uL) 6.2 6.4 RBC (4.70 - 6.10 x10 6/uL) 4.05 L 4.72 Hgb (14.0 - 18.0 g/dL) 12.6 L 14.7 Hct (37.0 - 49.0 %) 37.2 41.8 MCV (80 - 94 fL) 92 89 MCH (27 - 31 pg) 31.1 H 31.1 H MCHC (33 - 37 g/dL) 33.9 35.2 RDW (11.5 - 15.5 %) 14.1 13.9 Plt Count (130 - 400 x10 3/uL) 150 188 MPV (9.4 - 16.4 fL) 9.7 9.4 Neut % (Auto) (43 - 65 %) 55.5 58.3 Lymph % (Auto) (20.5 - 45.5 %) 29.4 29.5 [place] % (Auto) (5.5 - 11.7 %) 10.6 8.7 Eos % (Auto) (0.9 - 2.9 %) 3.7 H 2.5 Baso % (Auto) (0.2 - 1.0 %) 0.6 0.8 Neut # (Auto) (2.2 - 4.8 x10 3/uL) 3.42 3.74 Lymph # (Auto) (1.3 - 2.9 x10 3/uL) 1.81 1.89 [place] # (Auto) (0.3 - 0.8 x10 3/uL) 0.65 0.56 Eos # (Auto) (0.0 - 0.2 x10 3/uL) 0.23 H 0.16 Baso # (Auto) (0.0 - 0.1 x10 3/uL) 0.04 0.05 Immature Gran % (0.0 - 2.0 %) 0.2 0.2 Nucleated RBC % (0 - 1.0 %) 0.0 0.0 ESR Westergren (0 - 20 mm/hr) 30 H Laboratory Tests 07/31 135 Serology SARS CoV-2 RNA Rapid MARK (NEGATIVE) Negative Laboratory Tests 08/01 1951 Urines Urine Color (Yellow) Yellow Urine Appearance (Clear) Clear Urine pH (5.0 - 8.0) 5.5 Ur Specific [place] (<1.030) 1.017 Urine Protein (Negative mg/dL) TRACE Urine Glucose (UA) (Negative) Normal Urine Ketones (Negative mg/dL) Negative Urine Blood (Negative) Negative Urine Nitrite (Negative) Negative Urine Bilirubin (Negative) Negative Urine Urobilinogen (Negative mg/dL) Negative Ur Leukocyte Esterase (Negative) 1+ H Urine RBC (<4 - 5 /HPF) 0-3 Urine WBC (<4 - 5 /HPF) 11-20 H Ur Squamous Epith Cells (0 - 5 (RARE) /HPF) 0-5 (RARE) Urine Bacteria (None - Rare /HPF) None Hyaline Casts (<4 - 5 /LPF) >30 H Urine Mucus (<Rare /LPF) Rare Microbiology Date/Time Procedure - Status Source Growth 07/31 135 Influenza Virus Type B Antigen - COMP NASAL 07/31 1358 Influenza Virus Type A Antigen - COMP NASAL Radiology data: Recent Impressions: RADIOLOGY - XR FOOT 3 + V RT 07/31 1644 Report Impression - Status: SIGNED Entered: 07/31/2024 4569 IMPRESSION: 1. Osteomyelitis is suspected involving the medial base of the first distal phalanx and the distal medial corner of the first proximal phalanx. 2. Joint space widening at the first interphalangeal joint raises concern for possible septic joint. 3. No soft tissue gas is identified. Impression By: [email or web address] - Ace Kendrick MD Diagnosis, Assessment Plan Free Text DxA P Notes Free text DxA P notes: 74-year-old male with past medical history of hypertension, type 2 diabetes mellitus, CAD, A-fib, TB status posttreatment, possible CHF? Presented to the ED complaining of worsening right foot pain and was admitted for concerns of osteomyelitis. #Diabetic foot wound of right great toe complicated with right great toe osteomyelitis/Possible Septic Joint Patient with history of diabetes mellitus and prior diabetic foot wound presenting complaining of worsening right toe pain, pressure ulcer of right great toe present Foot XR with on admission 1. Osteomyelitis is suspected involving the medial base of the first distal phalanx and the distal medial corner of the first proximal phalanx. 2. Joint space widening at the first interphalangeal joint raises concern for possible septic joint. 3. No soft tissue gas is identified. Lactic acid had jumped up to 3.2, now downtrending to 2.3. ESR and CRP elevated at 30 and 32 respectively -Podiatry on board, recommendations appreciated -MRI foot, bone scan pending -Continue Vanco and Zosyn -ID consulted -Follow-up arterial Dopplers of lower extremity -Follow-up blood cultures -Continue IVF #UTI Patient with complaints of polyuria and pelvic fullness with UA showing leukocyte esterase positive 1+, WBCs 12-20, no bacteria -Follow-up urine culture -Patient already on appropriate antibiotics #Type 2 diabetes mellitus with peripheral neuropathy Patient with history of type 2 diabetes mellitus A1c is 9.3 -LDSSI -Can start scheduled Lantus and mealtime lispro depending on utilization of LDSSI #Hypercalcium (resolved) -Continue monitor on a.m. labs #Hyperbilirubinemia Patient with bilirubin 1.6 on admission. Denying any abdominal pain discomfort -Continue to trend #History of hypertension Patient is on Coreg 3.125 mg twice daily, losartan 50 mg daily Patient's blood pressure currently soft therefore we will hold losartan at this time and resume as tolerated #CAD Patient with history of CAD -Continue home aspirin and atorvastatin CODE STATUS: Full code DVT px - Lovenox Diet: Carb consistent NOK: Navdeep Dickerson (son) [phone] Dispo: Pending clinical progress Plan: -Pending MRI foot, bone scan, Dopplers -Continue Vanco and Zosyn -Follow-up further ID and podiatry recommendations -Trend lactic acid and continue with IV fluids Discussed with attending Zander Butt 08/01/24 0933: Objective Results Results: labs reviewed, vital signs reviewed, x-ray personally reviewed, current med profile rev'd Attestations Physician Attestation Agree w/findings plan: I personally saw and examined the patient on 08/01/24. I have reviewed and agree with the resident's findings, including all diagnostic interpretations and treatment plan as written. Risk of complications and/or Morbidity or Mortality of Patient Management- High risk. give IV fluids for lactic acidosis/sepsis. on IV abx. Consult ID. Will speak to podiatry about surgery plans. at 1145 at 0742 RPT #:[id number] END OF REPORT [facility] 2024-07-31 22:28:00 [facility] Pharmacy Prog.Note-Vancomycin REPORT#:[id number] REPORT STATUS: Signed REPORT INITIALIZATION DATE:07/31/24 TIME: 2227 PATIENT: SEYMOUR SNOW UNIT #: [id number] ROOM/BED: [address] : [address] AGE: 74 SEX: M ATTEND: Dago Puentes MD ADM AUTHOR: Victoria Watkins [facility] REPT SERVICE DT/TIME: 07/31/242227 * ALL edits or amendments must be made on the electronic/computer document * Vancomycin Vancomycin Medication Therapy Goal: AUC 400-600 mg*hr/L Current therapy: Medication(s) Ordered: Anti-Infective Agents Sig/Mary Start time Last Medication Dose Route Stop Time Status Admin Vancomycin HCl 1,500 MG ONCE ONE 07/31 2230 AC Sodium Chloride 500 ML IV 08/01 0029 Piperacillin Sod/ 3.375 GM Q8HR 07/31 2200 UNV Tazobactam Sod IV 08/07 2201 Sodium Chloride 100 ML Piperacillin Sod/ 3.375 GM X1ED STA 07/31 1712 DC 07/31 Tazobactam Sod IV 07/31 1741 1746 Sodium Chloride 100 ML Vancomycin HCl 1,000 MG X1ED STA 07/31 1711 DC 07/31 Sodium Chloride 250 ML IV 07/31 1840 1746 Ceftriaxone Sodium 1,000 MG X1ED STA 07/31 1249 DC 07/31 Sterile Water 10 ML IV 07/31 1251 1412 Autonomic Drugs Sig/Mary Start time Last Medication Dose Route Stop Time Status Admin Albuterol/Ipratropium 3 ML RTQ6H PRN PRN 07/31 2130 UNV INH 10/29 2131 Blood Formation,Coagulation Sig/Mary Start time Last Medication Dose Route Stop Time Status Admin Enoxaparin Sodium 40 MG Q24H 07/31 213 AC 07/31 SUBQ 10/29 2131 2200 Cardiovascular Drugs Sig/Mary Start time Last Medication Dose Route Stop Time Status Admin Atorvastatin Calcium 40 MG DAILY 08/01 899 AC PO 10/30 09 Carvedilol 3.125 MG BID 08/01 899 AC PO 10/30 09 Losartan Potassium 50 MG DAILY 08/01 09 UNV PO 10/30 09 Central Nervous System Agents Sig/Mary Start time Last Medication Dose Route Stop Time Status Admin Hydrocodone Bitart/ 1 TAB Q6H PRN PRN 07/31 2129 UNV Acetaminophen PO 08/05 213 Morphine Sulfate 2 MG Q6H PRN PRN 07/31 2130 UNV IV 08/05 213 Naloxone HCl 0.4 MG Q2M PRN PRN 07/31 213 UNV IV 10/29 2131 Naloxone HCl 0.4 MG Q2M PRN PRN 07/31 2130 UNV IV 10/29 213 Tramadol HCl 50 MG Q6H PRN PRN 07/31 2130 UNV PO 08/10 2131 Hydrocodone Bitart/ 1 TAB X1ED STA 07/31 1248 DC 07/31 Acetaminophen PO 07/31 1249 1412 Electrolytic, Caloric, And Eli Sig/Mary Start time Last Medication Dose Route Stop Time Status Admin Lactated Ringer's 1,000 ML X1ED STA 07/31 1831 DC IV 07/31 1930 Lactated Ringer's 1,000 ML X1ED STA 07/31 1249 DC 07/31 IV 07/31 1348 1412 Gastrointestinal Drugs Sig/Mary Start time Last Medication Dose Route Stop Time Status Admin Famotidine 20 MG Q12HR 08/01 899 AC PO 10/30 09 Ondansetron HCl 4 MG Q4H PRN PRN 07/31 213 UNV IV 10/29 2131 Other Sig/Mary Start time Last Medication Dose Route Stop Time Status Admin Miscellaneous 1 EACH ASDIR 07/31 2129 CKD Information IV 08/06 2130 VS and I/O: Vital Signs Date Temp Pulse Resp B/P B/P Mean Pulse Ox FiO2 07/31 36.4-36.6 71-84 16-18 120-125/80-84 93.2-97.3 93-96 Labs: Laboratory Test : 07/31 1358 Chemistry BUN (9 - 23 mg/dL) 18 Creatinine (0.55 - 1.30 mg/dL) 1.35 H Hematology WBC (5.0 - 12.0 x10 3/uL) 6.4 Microbiology: 07/31 2013 URINE: Urine Culture - RECD 07/31 1358 NASAL: Influenza Virus Type B Antigen - COMP 07/31 135 NASAL: Influenza Virus Type A Antigen - COMP 07/31 135 BLOOD: Blood Culture - RECD 07/31 124 BLOOD: Blood Culture - ORD Treatment plan: consult, initiation of therapy Rationale: Consulting Provider: Gely Roman Dosing weight: 85.8 kg (adjBW) Per RN, scale weight = 118.6 kg and height = 172.7 cm * Pharmacy is consulted to dose vancomycin for bone and joint infx for 7 days ( stop date 08/06/24) * 07/31: T- 36.4 afebrile, WBC 6.4, SCr 1.35 * MRSA, blood cultures, and gram stain- pending * LD: 2500 mg was ordered on 07/31 (patient was given 1000 mg dose once in the ED. However, per protocol and based on patient s ABW of 109.09 kg, patient should have received 2500 mg dose regardless of renal function. So I ordered another 1500 mg dose). * Due to scr 1.35, pharmacy will pulse dose vancomycin until such time that renal status and vancomycin clearance will support scheduled dosing. AUC will not be directly calculated, but random levels of 16.67-25 mg/L will translate to AUC of 400-600 mcg*hr/mL, similar to continuous infusion. * Based on half life of 12.35 and TDD of 2142.11, will order 12-hr VR level to make sure patient is able to clear vancomycin. * 08/01: VR @1200 DATE DOT SCR/ CRCL LEVELS AUC REGIMEN 07/31 1 1.35/ 62 LD 2500 MG X1 08/01 2 VR @1200 at 2230 RPT #:[id number] END OF REPORT [facility] 2024-07-31 20:42:00 ([facility]) Hospitalist History Physical REPORT#:[id number] REPORT STATUS: Signed REPORT INITIALIZATION DATE:07/31/24 TIME: 2041 PATIENT: SEYMOUR SNOW UNIT #: [id number] ROOM/BED: [address] : [address] AGE: 74 SEX: M ATTEND: Zander Gaston MD ADM AUTHOR: Gely Roman AGACNP REPT SERVICE DT/TIME: 07/31/242041 * ALL edits or amendments must be made on the electronic/computer document * Gely Roman 07/31/242041: History of Present Illness HPI Chief complaint: toe pain PCP: PCP: Seth Lin MD HPI: 74 yo M with PMH Of diabetes, hypertension presented to the ED with 1 month history of progressive pain of the right great toe. Pain now limiting his ambulation. Intermittent fevers reported at home. Was seen a few weeks ago by a physician and was diagnosed with cellulitis and given antibiotics. He completed the course of antibiotics with no improvement in his symptoms. lactic acid elevated. CRP 26 and ESR 30. ED workup with concern for osteomyeltitis. Patient admitted for osteomyelitis At the time of examination, with same pain as previously states. Deneis any CP, SOB, N/V/d, CHOI, or chills. states intermittent fevers but none today. History Past medical history: Reports: Congestive heart failure, Diabetes mellitus, Hypertension, Dyslipidemia. Past surgical history: Reports: Cholecystectomy. Additional surgical history: Neck surgery, 40 years ago Additional family history: none Alcohol use: Denies EtOH use Drug use: Denies recreational drugs Smoking status for patients 13 years old or older: Never Smoker Other social history: Good social support Medication/Allergy-Vaccine Hx Allergies: Coded Allergies: No Known Allergies (10/26/18) Review of Systems Musculoskeletal: extremity pain, extremity swelling, joint pain. All systems rev neg: except as marked Objective General VS/I O: Vital Signs: Date Time Temp Pulse Resp B/P B/P Pulse O2 O2 Flow FiO2 Mean Ox Delivery Rate 07/31 1821 97.7 73 16 125/84 97.3 93 07/31 1331 Room air 07/31 1242 97.9 84 17 120/82 94.3 94 PATIENT WEIGHT: Weight (lb): Weight (oz): Weight (kg): 109.091 Medications: Active Meds + DC'd Last 24 Hrs Lactated Ringer's (LACTATED RINGERS) 1,000 ML X1ED STA IV (DC) Piperacillin Sod/Tazobactam Sod (ZOSYN) 3.375 GM X1ED STA IV (DC) Sodium Chloride (SODIUM CHLORIDE 0.9% MBP) 100 ML Vancomycin HCl (VANCOCIN) 1,000 MG X1ED STA IV (DC) Sodium Chloride (SODIUM CHLORIDE 0.9%) 250 ML Ceftriaxone Sodium (ROCEPHIN) 1,000 MG X1ED STA IV (DC) Sterile Water (WATER,STERILE ) 10 ML Lactated Ringer's (LACTATED RINGERS) 1,000 ML X1ED STA IV (DC) Hydrocodone Bitart/Acetaminophen (NORCO 5/325 TABLET) 1 TAB X1ED STA PO (DC) Physical Exam General appearance: alert, awake Head/Eyes: atraumatic, clear cornea, EOMI, normal conjunctiva/sclera, normal eyelids/periorb., normocephalic, PERRL ENT: normal dentition, normal ear left, normal ear right, normal nose, normal pharynx, normal sinus Neck: full range of motion, non-tender, normal thyroid, supple/no meningismus, no bruit/NL carotids, no JVD, no masses or swelling Cardiovascular: normal capillary refill, regular rate rhythm Respiratory: clear to auscultation, no distress Abdomen: non-tender, normal bowel sounds, soft, no distention, no guarding, no hernia, no mass/organomegaly, no rebound Rectal: not indicated Extremities: moves all, normal capillary refill, normal range of motion, no edema Musculoskeletal: normal inspection Neuro/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: alert, oriented X 3 Skin: dry, intact Lymphatics: axilla normal, inguinal normal, neck normal, no lymphadenopathy Psychiatry: normal affect, normal judgment/insight, normal mood, not homicidal, not suicidal, no hallucinations Results Findings/Data: Laboratory Tests 07/31 07/31 1359 1359 Chemistry Sodium (136 - 145 mmol/L) 135 L Potassium (3.5 - 5.1 mmol/L) 3.7 Chloride (98 - 107 mmol/L) 100 Carbon Dioxide (20.0 - 31.0 mmol/L) 26.0 Anion Gap (10 - 20 mmol/L) 13 BUN (9 - 23 mg/dL) 18 Creatinine (0.55 - 1.30 mg/dL) 1.35 H Glomerular Filtr Rate (mL/min) 54 Glucose (74 - 106 mg/dL) 153 H Lactic Acid (0.50 - 1.99 mmol/L) 2.40 *H Calcium (8.7 - 10.4 mg/dL) 10.9 H Total Bilirubin (0.20 - 1.10 mg/dL) 1.60 H Conjugated Bilirubin (0.1 - 0.3 mg/dL) 0.5 H Unconjugated Bilirubin (0 - 1.1 mg/dL) 1.10 AST (0 - 33 U/L) 37 H ALT (10 - 49 U/L) 24 Total Alk Phosphatase (46 - 116 U/L) 88 Troponin I High Sens (0.00 - 54.00 ng/L) 5.77 C-Reactive Protein (0.0 - 0.9 mg/L) 32.0 H Total Protein (5.7 - 8.2 g/dL) 7.5 Albumin (3.4 - 5.0 g/dL) 4.2 Lipase (12 - 53 U/L) 28 Specimen Hemolysis (0 - 3 Index/DL) 0 Laboratory Tests 07/31 1359 Hematology WBC (5.0 - 12.0 x10 3/uL) 6.4 RBC (4.70 - 6.10 x10 6/uL) 4.72 Hgb (14.0 - 18.0 g/dL) 14.7 Hct (37.0 - 49.0 %) 41.8 MCV (80 - 94 fL) 89 MCH (27 - 31 pg) 31.1 H MCHC (33 - 37 g/dL) 35.2 RDW (11.5 - 15.5 %) 13.9 Plt Count (130 - 400 x10 3/uL) 188 MPV (9.4 - 16.4 fL) 9.4 Neut % (Auto) (43 - 65 %) 58.3 Lymph % (Auto) (20.5 - 45.5 %) 29.5 [place] % (Auto) (5.5 - 11.7 %) 8.7 Eos % (Auto) (0.9 - 2.9 %) 2.5 Baso % (Auto) (0.2 - 1.0 %) 0.8 Neut # (Auto) (2.2 - 4.8 x10 3/uL) 3.74 Lymph # (Auto) (1.3 - 2.9 x10 3/uL) 1.89 [place] # (Auto) (0.3 - 0.8 x10 3/uL) 0.56 Eos # (Auto) (0.0 - 0.2 x10 3/uL) 0.16 Baso # (Auto) (0.0 - 0.1 x10 3/uL) 0.05 Immature Gran % (0.0 - 2.0 %) 0.2 Nucleated RBC % (0 - 1.0 %) 0.0 ESR Westergren (0 - 20 mm/hr) 30 H Laboratory Tests 07/31 135 Serology SARS CoV-2 RNA Rapid MARK (NEGATIVE) Negative Laboratory Tests 08/01 1951 Urines Urine Color (Yellow) Yellow Urine Appearance (Clear) Clear Urine pH (5.0 - 8.0) 5.5 Ur Specific [place] (<1.030) 1.017 Urine Protein (Negative mg/dL) TRACE Urine Glucose (UA) (Negative) Normal Urine Ketones (Negative mg/dL) Negative Urine Blood (Negative) Negative Urine Nitrite (Negative) Negative Urine Bilirubin (Negative) Negative Urine Urobilinogen (Negative mg/dL) Negative Ur Leukocyte Esterase (Negative) 1+ H Urine RBC (<4 - 5 /HPF) 0-3 Urine WBC (<4 - 5 /HPF) 11-20 H Ur Squamous Epith Cells (0 - 5 (RARE) /HPF) 0-5 (RARE) Urine Bacteria (None - Rare /HPF) None Hyaline Casts (<4 - 5 /LPF) >30 H Urine Mucus (<Rare /LPF) Rare Microbiology Date/Time Procedure - Status Source Growth 07/31 135 Influenza Virus Type B Antigen - COMP NASAL 07/31 135 Influenza Virus Type A Antigen - COMP NASAL Radiology data: Recent Impressions: RADIOLOGY - XR FOOT 3 + V RT 07/31 1644 Report Impression - Status: SIGNED Entered: 07/31/2024 3557 IMPRESSION: 1. Osteomyelitis is suspected involving the medial base of the first distal phalanx and the distal medial corner of the first proximal phalanx. 2. Joint space widening at the first interphalangeal joint raises concern for possible septic joint. 3. No soft tissue gas is identified. Impression By: WesADPrakash - Ace Kendrick MD Results: labs reviewed, vital signs stable, current med profile rev'd Diagnosis, Assessment Plan Code Status/Resusc. Discussion Resuscitation discussion: Discussed with: patient Code status: full code Free Text DxA P Notes Free Text DxA P Notes: 1. Osteomyelitis/Possible Septic Joint -MRI pending -Foot XR with 1. Osteomyelitis is suspected involving the medial base of the first distal phalanx and the distal medial corner of the first proximal phalanx. 2. Joint space widening at the first interphalangeal joint raises concern for possible septic joint. 3. No soft tissue gas is identified. -Vanco and Zosyn ordered 2. DF infection - Chronic, nonpressure ulcer to the level of subcutaneous tissue, hallux, right foot -Podiatry consulted 3. Cellulitis, right foot -failed outpatient previous treatment -elevated CRP 4. Type 2 diabetes mellitus with peripheral neuropathy -ACHS, SSI -hypoglycemia protocol 5. Peripheral arterial disease -may need Vascular consult dependent on dopper results -Ordered arterial Doppler, pending 6. Elevated Lactate -IVF bolus given; Rocephin given in ED -trend lactate 7. Mild Hypercalcium -repeat labs 8. Transaminitis -trend labs -no jaundice DVT px - Lovenox Further plan dependent on clinical findings/outcome DISPO: Home NOK: Navdeep Dickerson (son) [phone] CODE: FULL Quality: Gen Med Crit Care VTE Prophylaxis VTE prophylaxis initiated: yes Current Medications Current medication review: I attest that the foregoing medication list in the medical record is true, accurate, and complete to the best of my knowledge. Attestations Attestation needed: supervising physician Deandre Loera 08/03/24 0313: Attestations Physician Attestation Reviewed findings plan: Based on the medical record the care appears appropriate. at 5242 at 0329 RPT #:[id number] END OF REPORT [facility] 2024-07-31 19:53:00 [id number] [facility] [address] [place] [address] PATIENT NAME: SEYMOUR SNOW ADMIT DATE: 07/31/24 ACCOUNT NO: [id number] ROOM NO: [place] [address] AGE: 74 REPORT TYPE: CONSULTATION SEX: M ADMITTING PHYSICIAN:Vanessa Nur MD ATTENDING PHYSICIAN:Vanessa Nur MD CONSULTATION DATE: 07/31/2024 CHIEF COMPLAINT: Right toe pain. HISTORY OF PRESENT ILLNESS: This is a 74-year-old male with a past medical history of hypertension and diabetes with peripheral neuropathy, who comes into the emergency room with right great toe pain. The patient reports that there was pain and swelling in the right hallux for about a month and that the toe started to get better. However, one week ago, he reports he clipped the nail and then the toe was more painful and more swollen and now has redness. The patient reports the swelling has started to spread to his right foot. The patient reports over the last 2 to 3 weeks, he has experienced generalized abdominal pain, loss of appetite, intermittent fevers, and nausea. The patient reports that he does not currently see a heater room helper. The patient denies any other concerns or complaints at this time. PAST MEDICAL HISTORY: 1. Diabetes type 2 with peripheral neuropathy. 2. Hypertension. PAST SURGICAL HISTORY: None stated. SOCIAL HISTORY: None stated. ALLERGIES: NO KNOWN DRUG ALLERGIES. MEDICATIONS: 1. Azithromycin. 2. Tramadol. 3. Furosemide. 4. Lanoxin. 5. Magnesium. 6. Metoprolol. REVIEW OF SYSTEMS: A 14-point review of system was performed. CONSTITUTIONAL: Denies chills, fever, or fatigue. HEENT: Denies hearing loss or blurry vision. RESPIRATORY: Denies cough, shortness of breath, or wheezing. CARDIOVASCULAR: Denies chest pain, pain with walking, edema, or palpitations. GASTROINTESTINAL: Denies abdominal pain, constipation, diarrhea, nausea, or vomiting. GENITOURINARY: Denies painful or excessive urine. METABOLIC/ENDOCRINE: Denies cold or heat intolerance. PATIENT NAME: SEYMOUR SNOW NEUROLOGIC: Denies dizziness, headaches, seizures, or tremors. PSYCHIATRIC: Denies anxiety or depression. INTEGUMENTARY: Reports right foot redness and swelling. MUSCULOSKELETAL: Reports right great toe joint pain. HEMATOLOGIC: Denies easy bleeding, bruising, lymphedema, or issues with blood clots. IMMUNOLOGIC: Denies allergies. PHYSICAL EXAMINATION: VITAL SIGNS: Temperature 36.5, pulse rate 73, respiratory rate 16, blood pressure 125/84, and pulse ox 93. GENERAL: AAO x3, in no acute distress. HEENT: Head is atraumatic and normocephalic. CARDIAC: Normal rate and rhythm. RESPIRATORY: Clear to auscultation. ABDOMEN: Soft and nontender. RIGHT LOWER EXTREMITY FOCUSED PHYSICAL EXAM: VASCULAR: DP/PT pulses nonpalpable, less than 3 seconds capillary refill time, temperature gradient cool to warm distal to proximal. Mild edema. DERMATOLOGIC: Chronic non-pressure ulcer of the right hallux at the nail bed. Does not probe deep, superficial. No drainage. Mild erythema and edema. Edema present in the entire right foot. Wound measuring 0.1 x 0.2 x 0.1 cm. MUSCULOSKELETAL: Muscle strength testing, 5/5 for dorsiflexion, plantarflexion, inversion, and eversion. Positive pain to palpation. Mild equinus. NEUROLOGIC: Gross epicritic sensation diminished for light touch and proprioception. LABORATORY DATA: White blood cell 6.4, hemoglobin 14.7, hematocrit 41.8. CRP 32. Sedimentation rate 30. IMAGING STUDIES: Right foot x-ray shows suspected osteomyelitis involving the medial base of the first distal phalanx and the distal medial corner of the first proximal phalanx. Joint space widening at the first interphalangeal joint raises concern for possible septic joint. No soft tissue gas identified. ASSESSMENT: 1. 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 2. Cellulitis, right foot. 3. Type 2 diabetes mellitus with peripheral neuropathy. 4. Peripheral arterial disease. PLAN: 1. The patient was evaluated and examined at bedside. All questions and concerns from the patient addressed to the patient's satisfaction. 2. Reviewed labs and vital signs. 3. Reviewed imaging, right foot, impression shows OM suspected involving the medial base of the first distal phalanx and the distal medial corner of the first proximal phalanx. Joint space widening at the first interphalangeal joint raises concern for possible septic joint. No soft tissue gap is identified. 4. Ordered MRI, pending. 5. Ordered white blood cell labeled bone scan, pending. 6. Ordered arterial Doppler, pending. PATIENT NAME: SEYMOUR SNOW 7. Recommend vascular consult. 8. Surgical versus nonsurgical intervention, pending MRI and bone scan results. We will continue to follow while in-house. Plan discussed with my attending Dr. Bolivar DPM. Dictated By: Twyla Crane DPM for Orlando Lutz DPM Date Dictated: 07/31/2024 19:53:02 Date Transcribed: 08/01/2024 01:38:35 GET/PHYLLIS Receipt ID: [id number] Authenticated by Twyla Crane DPM R1 On 08/02/2024 05:33:57 PM Authenticated by Orlando Lutz DPM On 08/04/2024 02:58:20 PM at 0258 at 0533 PATIENT NAME: SEYMOUR SNOW [facility] 2024-07-31 19:02:00 [facility]) Consultation Note - Brief REPORT#:[id number] REPORT STATUS: Signed REPORT INITIALIZATION DATE:07/31/24 TIME: 1901 PATIENT: SEYMOUR SNOW UNIT #: [id number] ROOM/BED: [address] : [address] AGE: 74 SEX: M ATTEND: Vanessa Nur MD ADM AUTHOR: Twyla Crane DPM R1 REPT SERVICE DT/TIME: 07/31/241901 * ALL edits or amendments must be made on the electronic/computer document * History of Present Illness HPI Reason for consult: Right great toe pain Chief complaint: Right great toe pain History - Adult longitudinal Past medical history: Reports: Congestive heart failure, Diabetes mellitus, Hypertension, Dyslipidemia. Past surgical history: Reports: Cholecystectomy. Additional surgical history: Neck surgery, 40 years ago Additional family history: none Alcohol use: Denies EtOH use Drug use: Denies recreational drugs Smoking status for patients 13 years old or older: Never Smoker Other social history: Good social support Allergies: Coded Allergies: No Known Allergies (10/26/18) Brief Consult Note Physical Exam Vitals: Last Documented: Result Date Time Pulse Ox 93 07/31 1820 B/P 125/84 07/31 182 B/P Mean 97.3 07/31 182 Temp 97.7 07/31 182 Pulse 73 07/31 182 Resp 16 07/31 182 O2 Delivery Room air 07/31 1331 Free Text A P: Assessment: 1. Chronic, nonpressure ulcer to the level of subcutaneous tissue, hallux, right foot 2. Cellulitis, right foot 3. Type 2 diabetes mellitus with peripheral neuropathy 4. Peripheral arterial disease Plan: Patient evaluated and examined at bedside. All questions and concerns from patient addressed patient's satisfaction. Reviewed labs and vital signs Reviewed imaging, right foot, impression: OM suspected involving the medial base of the first distal phalanx and the distal medial corner of the first proximal phalanx. Joint space widening at the first interphalangeal joint raises concern for possible septic joint. No soft tissue gas is identified. Ordered MRI, pending -Ordered white blood cell labeled bone scan, pending Ordered arterial Doppler, pending Recommend vascular consult Nonsurgical vs surgical intervention pending MRI and bone scan results. Will continue to follow while in house. Plan discussed with attending, Dr. Bolivar MataPAna at 1954 at 1629 RPT #:[id number] END OF REPORT [facility] 2024-07-31 16:15:00 ([facility]) EMERGENCY PROVIDER REPORT REPORT#:[id number] REPORT STATUS: Signed DATE:07/31/24 TIME: 1615 PATIENT: SEYMOUR SNOW UNIT #: [id number] ROOM[address]BED: [address]: [address] AGE: 74 SEX: M PCP PHYS: Seth Lin MD SERVICE AUTHOR: Tim Mays MD R1 REP SRV REP SRV TM: [id number] * ALL edits or amendments must be made on the electronic/computer document * Tim Mays 07/31/24 1615: HPI-General Illness Free Text HPI Notes Free Text HPI Notes 74-year-old male with diabetes, hypertension presented to the ED with 1 month history of progressive pain of the right great toe. Pain now limiting his ambulation. Intermittent fevers reported at home. Was seen a few weeks ago by a physician and was diagnosed with cellulitis and given antibiotics. He completed the course of antibiotics with no improvement in his symptoms. Reports small amount of drainage around the site. Bearing weight worsens his pain. Redness now spreading from proximal phalanx to dorsum of the foot. General Initial Greet Date/Time 07/31/24 1242 Presentation Chief Complaint __ (R great toe pain) Review of Systems ROS Statements All systems rev neg except as marked. Past Medical History - Adult Stated Complaint RT TOE SWOLLEN, ABD SWOLLEN Allergies Coded Allergies: No Known Allergies (10/26/18) Home Medications Active Scripts CEFDINIR (OMNICEF) 300 MG PO Q12H 7 Days #14 CAPS Prov: 05/27/22 AZITHROMYCIN (ZITHROMAX) 500 MG PO DAILY 5 Days #5 TABS Prov: 05/27/22 ACETAMINOPHEN (TYLENOL) 650 MG PO Q8HR PRN pain BISACODYL EC (DULCOLAX EC) 10 MG PO DAILY PRN PRN CONSTIPATION traMADol (ULTRAM) 50 MG PO Q6H PRN PRN PAIN traMADol (ULTRAM) 50 MG PO Q6H PRN PRN PAIN #28 TAB Prov: 10/19/19 FUROSEMIDE (LASIX) 20 MG PO QAM FUROSEMIDE (LASIX) 20 MG PO QAM #30 TAB Prov: 10/19/19 FAMOTIDINE (PEPCID) 20 MG PO BID FAMOTIDINE (PEPCID) 20 MG PO BID #60 TAB Prov: 10/19/19 MEGESTROL (MEGACE) 40 MG PO DAILY MEGESTROL (MEGACE) 40 MG PO DAILY #30 TAB Prov: 10/19/19 DIGOXIN (LANOXIN) 0.125 MG PO DAILY DIGOXIN (LANOXIN) 0.125 MG PO DAILY #30 TAB Prov: 10/10/22 POTASSIUM CHLORIDE ER (KLOR-CON M20) 20 MEQ PO DAILY POTASSIUM CHLORIDE ER (KLOR-CON M20) 20 MEQ PO DAILY #14 TAB Prov: 10/10/22 LOPERAMIDE (IMODIUM) 2 MG PO BID PRN PRN DIARRHEA LOPERAMIDE (IMODIUM) 2 MG PO BID PRN PRN DIARRHEA #30 CAP Prov: 10/10/22 MAGNESIUM OXIDE (MAG-OXIDE) 400 MG PO TID MAGNESIUM OXIDE (MAG-OXIDE) 400 MG PO TID #30 TAB Prov: 10/10/22 METOPROLOL TARTRATE (LOPRESSOR) 25 MG PO Q8HR METOPROLOL TARTRATE (LOPRESSOR) 25 MG PO Q8HR #90 TAB Prov: 10/10/22 BUDESONIDE (PULMICORT) 0.25 MG INH RTBID BUDESONIDE (PULMICORT) 0.25 MG INH RTBID #2 ML Prov: 10/07/22 PROMETHAZINE (PHENERGAN) 12.5 MG PO BID PROMETHAZINE (PHENERGAN) 12.5 MG PO BID #60 TAB Prov: 10/07/22 ETHAMBUTOL 1,600 MG PO DAILY ETHAMBUTOL 1,600 MG PO DAILY #30 TAB Prov: 10/07/22 NITROGLYCERIN (NITROSTAT) 0.4 MG SL Q5M PRN PRN CHEST PAIN NITROGLYCERIN (NITROSTAT) 0.4 MG SL Q5M PRN PRN CHEST PAIN #100 TAB Prov: 10/07/22 ISONIAZID 300 MG PO DAILY ISONIAZID 300 MG PO DAILY #30 TAB Prov: 10/07/22 PYRAZINAMIDE 1,500 MG PO DAILY PYRAZINAMIDE 1,500 MG PO DAILY #30 TAB Prov: 10/07/22 RIFABUTIN (MYCOBUTIN) 300 MG PO DAILY 30 Days #60 CAPS Prov: 10/09/22 CEFDINIR (OMNICEF) 300 MG PO Q12HR 7 Days #14 CAP Prov: 05/27/22 Reported Medications LOSARTAN (COZAAR) 50 MG PO DAILY 30 Days #30 ATORVASTATIN (LIPITOR) 40 MG PO DAILY 30 Days #30 carvediloL metFORMIN (GLUCOPHAGE) 1,000 MG PO BID 30 Days #60 glipiZIDE (GLUCOTROL) 5 MG PO DAILY 30 Days #30 PYRIDOXINE (VITAMIN B-6) 50 MG PO DAILY APIXABAN (ELIQUIS) 5 MG PO BID glipiZIDE (GLUCOTROL) 5 MG PO AC ATORVASTATIN (LIPITOR) 40 MG PO DAILY LOSARTAN (COZAAR) 50 MG PO DAILY ATORVASTATIN (LIPITOR) 40 MG PO DAILY carvediloL 3.125 MG PO BID metFORMIN (GLUCOPHAGE) 1,000 MG PO BID glipiZIDE (GLUCOTROL) 5 MG PO DAILY LOSARTAN (COZAAR) 50 MG PO DAILY Past Medical History: Reports: Congestive heart failure, Diabetes mellitus, Hypertension, Dyslipidemia. Past Surgical History: Reports: Cholecystectomy. Additional Surgical History Neck surgery, 40 years ago Additional Family History none Alcohol Use Denies EtOH use Drug Use Denies recreational drugs Smoking status for patients 13 years old or older: Never Smoker Other Social History Good social support Physical Exam Vital Signs Vital Signs First Documented: Result Date Time Pulse Ox 94 07/31 1242 B/P 120/82 07/31 1242 B/P Mean 94.3 07/31 1242 Temp 97.9 07/31 1242 Pulse 84 07/31 1242 Resp 17 07/31 1242 O2 Delivery Room air 07/31 1331 Last Documented: Result Date Time Pulse Ox 93 07/31 1821 B/P 125/84 07/31 1821 B/P Mean 97.3 07/31 1821 Temp 97.7 07/31 1821 Pulse 73 07/31 1821 Resp 16 07/31 1821 O2 Delivery Room air 07/31 1331 Review of Vital Signs Reviewed Physical Exam General/Const General/Const Awake, Alert, No acute distress MS Head Head Atraumatic, Normocephalic Eyes Eyes Atraumatic, PERRL, EOMI Ears/Nose/Throat Ears/Nose/Throat Atraumatic, Airway patent MS Neck Neck Atraumatic, Supple Resp/Chest Respiratory/Chest Atraumatic, Breath sounds NL, Breath sounds = bilat Cardiovascular Cardiovascular Heart rate NL, Regular rhythm, Heart sounds NL MS Ankle/Foot Text/Dict Notes Right great toe edematous, erythematous fluctuant tender to palpation with small area of serosanguineous drainage on the lateral aspect. Skin Text/Dict Notes See above Neurologic Text/Dict Notes Neuropathy with sensory loss to soft touch in lower extremities Interpretation Diagnostics Lab Results Interpretation Results Laboratory Tests 07/31/24 1359: [Embedded Image Not Available] Laboratory Tests: 07/31 07/31 1359 1359 Chemistry Sodium (136 - 145 mmol/L) 135 L Potassium (3.5 - 5.1 mmol/L) 3.7 Chloride (98 - 107 mmol/L) 100 Carbon Dioxide (20.0 - 31.0 mmol/L) 26.0 Anion Gap (10 - 20 mmol/L) 13 BUN (9 - 23 mg/dL) 18 Creatinine (0.55 - 1.30 mg/dL) 1.35 H Glomerular Filtr Rate (mL/min) 54 Glucose (74 - 106 mg/dL) 153 H Lactic Acid (0.50 - 1.99 mmol/L) 2.40 *H Calcium (8.7 - 10.4 mg/dL) 10.9 H Total Bilirubin (0.20 - 1.10 mg/dL) 1.60 H Conjugated Bilirubin (0.1 - 0.3 mg/dL) 0.5 H Unconjugated Bilirubin (0 - 1.1 mg/dL) 1.10 AST (0 - 33 U/L) 37 H ALT (10 - 49 U/L) 24 Total Alk Phosphatase (46 - 116 U/L) 88 Troponin I High Sens (0.00 - 54.00 ng/L) 5.77 C-Reactive Protein (0.0 - 0.9 mg/L) 32.0 H Total Protein (5.7 - 8.2 g/dL) 7.5 Albumin (3.4 - 5.0 g/dL) 4.2 Lipase (12 - 53 U/L) 28 Specimen Hemolysis (0 - 3 Index/DL) 0 Hematology WBC (5.0 - 12.0 x10 3/uL) 6.4 RBC (4.70 - 6.10 x10 6/uL) 4.72 Hgb (14.0 - 18.0 g/dL) 14.7 Hct (37.0 - 49.0 %) 41.8 MCV (80 - 94 fL) 89 MCH (27 - 31 pg) 31.1 H MCHC (33 - 37 g/dL) 35.2 RDW (11.5 - 15.5 %) 13.9 Plt Count (130 - 400 x10 3/uL) 188 MPV (9.4 - 16.4 fL) 9.4 Neut % (Auto) (43 - 65 %) 58.3 Lymph % (Auto) (20.5 - 45.5 %) 29.5 [place] % (Auto) (5.5 - 11.7 %) 8.7 Eos % (Auto) (0.9 - 2.9 %) 2.5 Baso % (Auto) (0.2 - 1.0 %) 0.8 Neut # (Auto) (2.2 - 4.8 x10 3/uL) 3.74 Lymph # (Auto) (1.3 - 2.9 x10 3/uL) 1.89 [place] # (Auto) (0.3 - 0.8 x10 3/uL) 0.56 Eos # (Auto) (0.0 - 0.2 x10 3/uL) 0.16 Baso # (Auto) (0.0 - 0.1 x10 3/uL) 0.05 Immature Gran % (0.0 - 2.0 %) 0.2 Nucleated RBC % (0 - 1.0 %) 0.0 ESR Westergren (0 - 20 mm/hr) 30 H Serology SARS CoV-2 RNA Rapid MARK (NEGATIVE) Negative Microbiology: Date/Time Procedure - Status Source Growth 07/31 1359 Influenza Virus Type B Antigen - COMP NASAL 07/31 1359 Influenza Virus Type A Antigen - COMP NASAL 07/31 1359 Blood Culture - RES BLOOD 07/31 1249 Blood Culture - ORD BLOOD Recent Impressions: RADIOLOGY - XR FOOT 3 + V RT 07/31 1644 Report Impression - Status: SIGNED Entered: 07/31/2024 1859 IMPRESSION: 1. Osteomyelitis is suspected involving the medial base of the first distal phalanx and the distal medial corner of the first proximal phalanx. 2. Joint space widening at the first interphalangeal joint raises concern for possible septic joint. 3. No soft tissue gas is identified. Impression By: [email or web address] - Ace Kendrick MD ECG #1 Interpretation Text/Dict Note 1309, normal sinus rhythm rate 79, Left axis deviation. Nonspecific T wave abnormality, no STEMI, normal intervals Re-Evaluation MDM Free Text MDM Notes Free Text MDM Notes 74-year-old male with diabetes, hypertension presented to the ED with 1 month history of progressive pain of the right great toe. Pain now limiting his ambulation. Intermittent fevers reported at home. Was seen a few weeks ago by a physician and was diagnosed with cellulitis and given antibiotics. He completed the course of antibiotics with no improvement in his symptoms. DDx: Osteomyelitis, soft tissue abscess, gas gangrene, diabetic foot wound No leukocytosis, received Rocephin in triage, x-ray personally reviewed with lateral periosteal disruption in the distal phalanx right great toe. Concerning for osteomyelitis. Official read pending. Will consult podiatry for eval. Broaden ABX with zosyn and vanc. lactic acid elevated. CRP 26 and ESR 30. Radiology called with confirmation of osteomyelitis and possible septic joint. Patient will likely need further vascular studies, vascular consultation along with podiatry consultation. IV antibiotics with potentially prolonged IV antibiotic course pending surgical decisions. Discussed with podiatry resident, consult placed. Discussed findings and plan with the patient. He is in agreement for admission and further workup. Hospitalist team notified of the case and is excepted the admission. ED Course Medication(s) Ordered Medication(s) Ordered: Anti-Infective Agents Sig/Mary Start time Last Medication Dose Route Stop Time Status Admin Piperacillin Sod/ 3.375 GM X1ED STA 07/31 1712 DC 07/31 Tazobactam Sod IV 07/31 1741 1746 Sodium Chloride 100 ML Vancomycin HCl 1,000 MG X1ED STA 07/31 1711 DC 15 Sodium Chloride 250 ML IV 07/31 1840 1746 Ceftriaxone Sodium 1,000 MG X1ED STA 07/31 1249 DC 07/31 Sterile Water 10 ML IV 07/31 1251 1412 Central Nervous System Agents Sig/Mary Start time Last Medication Dose Route Stop Time Status Admin Hydrocodone Bitart/ 1 TAB X1ED STA 07/31 1248 DC 03/15 Acetaminophen PO 07/31 1249 1412 Electrolytic, Caloric, And Eli Sig/Mary Start time Last Medication Dose Route Stop Time Status Admin Lactated Ringer's 1,000 ML X1ED STA 07/31 1831 DC IV 07/31 1930 Lactated Ringer's 1,000 ML X1ED STA 07/31 1249 DC /15 IV 07/31 1348 1412 Patient Discharge Departure Vital Signs/Condition Vital Signs First Documented: Result Date Time Pulse Ox 94 07/31 1242 B/P 120/82 07/31 1242 B/P Mean 94.3 07/31 1242 Temp 97.9 07/31 1242 Pulse 84 07/31 1242 Resp 17 07/31 1242 O2 Delivery Room air 07/31 1331 Last Documented: Result Date Time Pulse Ox 93 07/31 1821 B/P 125/84 07/31 1821 B/P Mean 97.3 07/31 1821 Temp 97.7 07/31 1821 Pulse 73 07/31 1821 Resp 16 07/31 1821 O2 Delivery Room air 07/31 1331 All vital signs available at the time of this entry have been reviewed. Condition Stable Clinical Impression Clinical Impression Primary Impression: Right hallux osteomyelitis Secondary Impressions: Severe sepsis Time of Impression 1829 Disposition Decision Hospitalize Hosp Physician Name Dago Puentes MD [facility] Physician Hospitalist Request Time 1829 Request Date 07/31/24 )( Accepts Hospitalization Yes )( Reason for Hospitalization Right great toe osteomyelitis )( Accepted Time 1829 )( Accepted Date 07/31/24 Call Information will see patient Discharge/Care Plan Counseled Regarding Diagnosis, Lab results, Imaging studies, Need for admission Zuleyma Allen 08/03/24 1555: Re-Evaluation MDM Re-Evaluation/Progress #1 Time of Re-Eval 1814 Tissue Perfusion Reassessment Patient tissue perfusion reassessment completed. MDM-Independent Interpretation My Plain Film Interpretation FOOT XRAY CONCERNING FOR OSTEO WITH PERIOSTEAL REACTION Patient Discharge Departure Critical Care Time Spent (minutes): 40 Services Performed Patient management by me, Time spent at bedside, Reviewing test results, Reviewing imaging, Discussing patient care, Documentation in record Separately billable procedures excluded from time. CC Note 1 Total critical care time [] minutes. Total critical care time documented does not include time spent on separately billed procedures or the services of residents, students, nurses or physician assistants. I personally saw and examined the patient. I have reviewed all diagnostic interpretations and treatment plans as written. I was present for the dobbs portions of any procedures performed and the inclusive time noted in any critical care statement. Critical care time includes patient management by me, time spent at the patients bedside, time to review lab and imaging results, discussing patient care, documentation in the medical record, and time spent with the family or caregiver. Supervising Physician Note Resident Saw Pt This patient was seen by a resident. I have personally seen the patient, performed the critical or dobbs portions of the service, and participated in the management of the patient. I have reviewed and agree with the resident's note, and I have reviewed all labs, ECGs, and imaging studies or reports. I agree with this resident's findings, exam and plan. at 1003 at 1558 RPT #:[id number] END OF REPORT [facility] 2024-07-31 13:09:00 [id number] [facility] [address] [place] [address] PATIENT NAME: SEYMOUR SNOW ADMIT DATE: 07/31/24 ACCOUNT NO: [id number] ROOM NO: [facility] AGE: 74 REPORT TYPE: ELECTROCARDIOGRAM SEX: M ADMITTING PHYSICIAN:Vanessa Nur MD ATTENDING PHYSICIAN:Vanessa Nur MD Order: [id number] Test Reason : Test Date/Time Stamp: [facility] Jul 31 2024 13:09:34 Blood Pressure : / mmHG Vent. Rate : 079 BPM Atrial Rate : 079 BPM P-R Int : 174 ms QRS Dur : 106 ms QT Int : 394 ms P-R-T Axes : 012 -40 059 degrees QTc Int : 451 ms Normal sinus rhythm Left axis deviation Pulmonary disease pattern Minimal voltage criteria for LVH, may be normal variant ( R in aVL ) Nonspecific ST and T wave abnormality Abnormal ECG Confirmed by Henrik Forbes ([id number]) on 08/03/2024 2:46:56 PM Referred By: OMAR EDDOC Confirmed by:Henrik Forbes at 1446 PATIENT NAME: SEYMOUR SNOW [facility] 2024-07-31 12:47:00 ([facility] EMERGENCY PROVIDER REPORT REPORT#:[id number] REPORT STATUS: Signed DATE:07/31/24 TIME: 1247 PATIENT: MYA SNOWNCIO UNIT #: [id number] ROOM/BED: : 48 AGE: 74 SEX: M PCP PHYS: Seth Lin MD SERVICE AUTHOR: Dimple Hicks REP SRV REP SRV TM: 1247 * ALL edits or amendments must be made on the electronic/computer document * Provider in Triage - Adult Provider in Triage Initial Greet Date/Time 07/31/24 1242 Free Text PIT Notes Free Text PIT Notes Greet Note I have greeted and performed a focused rapid initial assessment of this patient. A comprehensive ED assessment and evaluation of the patient, analysis of all test results, and completion of the medical decision-making process will be conducted by additional ED providers. PE General/Const No acute distress Respiratory/Chest No respiratory distress Cardiac Heart rate regular Neurologic Alert, Oriented X3 Patient is a 74-year-old male who was accompanied to the ED by the son complaining of right great toe pain and swelling onset 1 month ago. Patient reports his toe had started to get better however 1 week ago he reports he clipped the nail and down the toe was more painful, more swollen, and now has redness. Patient reports swelling has started to spread to his right foot. Patient reports he is diabetic. Patient reports over the last 2-3 weeks he is experienced generalized abdominal pain, loss of appetite, intermittent fevers, and nausea. 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 Patient denies any other concerns or complaints this time. Notice: Parts of this note were created using [employer] speech recognition dictation software. All attempts were made to correct any errors at the time of dictation, however there may be some errors present in the instructional material director that were inadvertently overlooked during the dictation. PMH-Provider in Triage Stated Complaint RT TOE SWOLLEN, ABD SWOLLEN Allergies Coded Allergies: No Known Allergies (10/26/18) Home Medications Active Scripts CEFDINIR (OMNICEF) 300 MG PO Q12H 7 Days #14 CAPS Prov: 05/27/22 AZITHROMYCIN (ZITHROMAX) 500 MG PO DAILY 5 Days #5 TABS Prov: 05/27/22 ACETAMINOPHEN (TYLENOL) 650 MG PO Q8HR PRN pain BISACODYL EC (DULCOLAX EC) 10 MG PO DAILY PRN PRN CONSTIPATION traMADol (ULTRAM) 50 MG PO Q6H PRN PRN PAIN traMADol (ULTRAM) 50 MG PO Q6H PRN PRN PAIN #28 TAB Prov: 10/19/19 FUROSEMIDE (LASIX) 20 MG PO QAM FUROSEMIDE (LASIX) 20 MG PO QAM #30 TAB Prov: 10/19/19 FAMOTIDINE (PEPCID) 20 MG PO BID FAMOTIDINE (PEPCID) 20 MG PO BID #60 TAB Prov: 10/19/19 MEGESTROL (MEGACE) 40 MG PO DAILY MEGESTROL (MEGACE) 40 MG PO DAILY #30 TAB Prov: 10/19/19 DIGOXIN (LANOXIN) 0.125 MG PO DAILY DIGOXIN (LANOXIN) 0.125 MG PO DAILY #30 TAB Prov: 10/10/22 POTASSIUM CHLORIDE ER (KLOR-CON M20) 20 MEQ PO DAILY POTASSIUM CHLORIDE ER (KLOR-CON M20) 20 MEQ PO DAILY #14 TAB Prov: 10/10/22 LOPERAMIDE (IMODIUM) 2 MG PO BID PRN PRN DIARRHEA LOPERAMIDE (IMODIUM) 2 MG PO BID PRN PRN DIARRHEA #30 CAP Prov: 10/10/22 MAGNESIUM OXIDE (MAG-OXIDE) 400 MG PO TID MAGNESIUM OXIDE (MAG-OXIDE) 400 MG PO TID #30 TAB Prov: 10/10/22 METOPROLOL TARTRATE (LOPRESSOR) 25 MG PO Q8HR METOPROLOL TARTRATE (LOPRESSOR) 25 MG PO Q8HR #90 TAB Prov: 10/10/22 BUDESONIDE (PULMICORT) 0.25 MG INH RTBID BUDESONIDE (PULMICORT) 0.25 MG INH RTBID #2 ML Prov: 10/07/22 PROMETHAZINE (PHENERGAN) 12.5 MG PO BID PROMETHAZINE (PHENERGAN) 12.5 MG PO BID #60 TAB Prov: 10/07/22 ETHAMBUTOL 1,600 MG PO DAILY ETHAMBUTOL 1,600 MG PO DAILY #30 TAB Prov: 10/07/22 NITROGLYCERIN (NITROSTAT) 0.4 MG SL Q5M PRN PRN CHEST PAIN NITROGLYCERIN (NITROSTAT) 0.4 MG SL Q5M PRN PRN CHEST PAIN #100 TAB Prov: 10/07/22 ISONIAZID 300 MG PO DAILY ISONIAZID 300 MG PO DAILY #30 TAB Prov: 10/07/22 PYRAZINAMIDE 1,500 MG PO DAILY PYRAZINAMIDE 1,500 MG PO DAILY #30 TAB Prov: 10/07/22 RIFABUTIN (MYCOBUTIN) 300 MG PO DAILY 30 Days #60 CAPS Prov: 10/09/22 CEFDINIR (OMNICEF) 300 MG PO Q12HR 7 Days #14 CAP Prov: 05/27/22 Reported Medications LOSARTAN (COZAAR) 50 MG PO DAILY 30 Days #30 ATORVASTATIN (LIPITOR) 40 MG PO DAILY 30 Days #30 carvediloL metFORMIN (GLUCOPHAGE) 1,000 MG PO BID 30 Days #60 glipiZIDE (GLUCOTROL) 5 MG PO DAILY 30 Days #30 PYRIDOXINE (VITAMIN B-6) 50 MG PO DAILY APIXABAN (ELIQUIS) 5 MG PO BID glipiZIDE (GLUCOTROL) 5 MG PO AC ATORVASTATIN (LIPITOR) 40 MG PO DAILY LOSARTAN (COZAAR) 50 MG PO DAILY ATORVASTATIN (LIPITOR) 40 MG PO DAILY carvediloL 3.125 MG PO BID metFORMIN (GLUCOPHAGE) 1,000 MG PO BID glipiZIDE (GLUCOTROL) 5 MG PO DAILY LOSARTAN (COZAAR) 50 MG PO DAILY at 1554 [facility] #:[id number] END OF REPORT [facility] 2022-10-14 08:57:00 [phone] [facility] [id number] [place], [place] [address] [place] [address] PATIENT NAME: SEYMOUR SNOW ADMIT DATE: 09/27/22 ACCOUNT NO: [id number] ROOM NO: C.[id number] AGE: 72 REPORT TYPE: 360 - QUERY RESPONSE DOCUMENT SEX: M ADMITTING PHYSICIAN:Zander Gaston MD ATTENDING PHYSICIAN:Zander Gaston MD Provider Query QUERY TEXT: Condition General 360MD Query related questions should be directed to: [facility] Coding Query Helpline Based on your medical judgment, can you please clarify if Sepsis was confirmed, Sepsis was not confirmed, or other more appropriate diagnosis? The patient's Clinical Indicators include: Medical Reason: Tuberculosis, pancreatitis, hypomagnesemia, gastroenteritis - OE order 09/27/2022 received sepsis bundle , 30 cc/kg of IV fluids, and Zosyn - ED PHYSICIAN RECORD 09/27/2022 rules out severe sepsis at 1500 - ED PHYSICIAN RECORD 09/27/2022 likely 2/2 dehydration/sepsis - Hospitalist Progress Note 10/01/2022 BARAK - Hospitalist Progress Note 10/01/2022 Acute on chronic hypoxic respiratory failure - Hospitalist Progress Note 10/01/2022 B/P 105/54 09/27 1631 - ED PHYSICIAN RECORD 09/27/2022 Pulse 93 09/27 1631 - ED PHYSICIAN RECORD 09/27/2022 Resp 20 09/27 1631 - ED PHYSICIAN RECORD 09/27/2022 WHITE BLOOD CELL (X10(3)) 6.9 6.7 6.9 9.2 - Laboratory Results tachycardia and hypotension - ED PHYSICIAN RECORD 09/27/2022 Options provided: -- Respond - Create new note now -- Dismiss - Not applicable / Not valid -- Dismiss - Clinically unable to determine / Unknown -- Assign to another provider QUERY RESPONSE: , Sepsis was not confirmed Query created by: KATIE LINDSAY on 10/14/2022 8:45 AM QUERY TEXT: Condition General 360MD Query related questions should be directed to: [facility] Coding Query Helpline Based on your medical judgment and the clinical indicators listed below, can you identify the underlying cause of the patient's Nausea, vomiting/ diarrhea (e.g. Acute gastroenteritis, Pancreatitis, Side effect from TB meds, Diarrhea unspecified, or other more appropriate diagnosis) The patient's Clinical Indicators include: Medical Reason: Tuberculosis, pancreatitis, hypomagnesemia, gastroenteritis - OE order 09/27/2022 Gastroenteritis - Hospitalist History and Physical 09/27/2022 Primary Impression: Pancreatitis - ED PHYSICIAN RECORD 09/27/2022 acute gastroenteritis suspect side affect from TB meds - Hospitalist Progress Note 09/29/2022 mild pancreatitis - ED PHYSICIAN RECORD 09/27/2022 acute gastroenteritis vs side effect from TB meds - Hospitalist Progress Note 09/28/2022 nausea, vomiting, diarrhea likely secondary to gastroenteritis - Hospitalist History and Physical 09/27/2022 Options provided: -- Respond - Create new note now -- Dismiss - Not applicable / Not valid -- Dismiss - Clinically unable to determine / Unknown -- Assign to another provider QUERY RESPONSE: Nausea, vomiting/ diarrhea due to acute gastroenteritis and Side effect from TB med Query created by: KATIE LINDSAY on 10/14/2022 8:48 AM at 0857 PATIENT NAME: SEYMOUR SNOW [facility] 2022-10-12 12:59:00 [facility] REPORT#:[id number] REPORT STATUS: Signed DATE:10/12/22 TIME: 1259 PATIENT: SEYMOUR SNOW UNIT #: [id number] ROOM/BED: [address] : [address] AGE: 72 SEX: M ATTEND: Zander Gaston MD ADM AUTHOR: Zander Gaston MD * ALL edits or amendments must be made on the electronic/computer document * General Information Date of admission: Observation Start Date: Date of admission: 09/27/22 Discharge date: 10/12/22 Discharge diagnosis: Active tuberculosis Chronic atrial flutter Respiratory failure with hypoxia secondary from pulmonary tuberculosis Acute on chronic hypoxic respiratory failure Physical deconditioning Hospital course: Patient is a 72-year-old male with past medical history of hypertension, diabetes, CAD, A-fib, recently diagnosed TB on treatment who presented to the ED with complaints of nausea, vomiting, diarrhea for the past 5 days. Patient was recently admitted at [facility] approximately 3 days ago for treatment of TB. Symptoms started while patient was there. Patient states that he takes his TB medication he gets abdominal pain that is epigastric and is relieved once he has a bowel movement which has been watery diarrhea for about the past 5 days. Patient is also having intermittent episodes of nonbilious nonbloody nausea and vomiting along with lack of appetite. He denies any fevers , chills, chest pain, shortness of breath, intermittent constipation. Also denies any hematochezia, melena, recent antibiotic use apart from current TB treatment medications. The first time patient is having such occurrence. In the ED patient was afebrile, blood pressure was 81/58-1 , heart rate 114 , respirations 20, satting 98% on room air. CBC was within normal limits. CMP is significant for bicarb 32, alk phos 156. Lipase 371, magnesium 1.0, lactic acid 1.9, troponin negative. UA: Leukocyte esterase positive, WBCs 6-10, hyaline casts 6-10. In the ED patient received 2.8 L of LR, Zosyn, 2 g magnesium. Consultants: cardiology, hospitalist, infectious disease Pt. condition on discharge: stable Allergies: Allergies: No Known Allergies (Coded, 10/26/18) Free Text DxA P Notes Free text DxA P notes: A/P # Active Pulmonary tuberculosis with acute hypoxic respiratory failure - Patient was recently diagnosed with pulmonary tuberculosis on 4 agent therapy at [facility]. - Health Dept RN assigned: Peg Devora [phone] -- needs DOT order for pt to obtain medications, monthly LFTs, etc -- CM consulted - Chest x-ray obtained here does show cavitary lesion - Pt started on TB meds 5 days prior to admission via [facility] - I.D consulted, restarted RIPE tx - DOT will set up his TB med after d/c - Home O2 will be set up - he will go home with his family - he has a walker and wheelchair at home # Paroxysmal A-fib/flutter w/ RVR - CHADSVASC 3 - PMHx of A-fib on eliquis/lopressor -- resumed home eliquis for AC and lopressor for rate ctl - on admisssion pt was in NSR - TSH WNL - likely 2/2 persistent hypomagnesemia - RVR episodes: -- 09/30/22: responded to lopressor 5mg IV q5min x2 doses and 1L IVFR bolus -- 10/01/22: Aflutter 2:1, tried lopressor 5mg IV x1 dose, BP decreased, followed by amio 150mg IV bolus; considered diltiazem, however SBP <90mmHg - cardiology consulted, cont IVFR, increased lopressor dose frequency, avoid amio due to rifampin QKE611 inhibition, digoxin was started - 2D ECHO shows normal LV fxn # Hypomagnesemia/hypokalemia - likely 2/2 recent diarrhea - repleted aggressively IV and oral - Nephrology consulted - started on Mag oxide 400 mg TID and KCL 20 meq daily - He will need repeat labs in 1 week # Normocytic anemia - cont to monitor # Recent Gastroenteritis, resolved - Patient presented with reported nausea, vomiting, diarrhea ongoing for approximately 5 days with some associated abdominal pain. 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 Qty = 60 METOPROLOL TARTRATE (LOPRESSOR) 25 MG TAB 12.5 MILLIGRAM ORAL TWICE DAILY. ETHAMBUTOL (MYAMBUTOL) 400 MG TAB 1,200 MILLIGRAM ORAL DAILY. PYRAZINAMIDE (PYRAZINAMIDE) 500 MG TAB 1,500 MILLIGRAM ORAL DAILY. rifAMPin (RIFADIN) 300 MG CAP 600 MILLIGRAM ORAL DAILY. ISONIAZID (ISONIAZID) 300 MG TAB 300 MILLIGRAM ORAL DAILY. metFORMIN (GLUCOPHAGE) 850 MG TAB 850 MILLIGRAM ORAL TWICE DAILY WITH MEALS. Continue taking these medications: ACETAMINOPHEN (TYLENOL) 325 MG TAB 650 MILLIGRAM ORAL EVERY 8 HOURS. as needed for pain Days = 30 BISACODYL EC (DULCOLAX EC) 5 MG TAB.DR 10 MILLIGRAM ORAL DAILY NEEDED. as needed for CONSTIPATION Days = 30 MEGESTROL (MEGACE) 40 MG TAB 40 MILLIGRAM ORAL DAILY. Qty = 30 traMADol (ULTRAM) 50 MG TAB 50 MILLIGRAM ORAL EVERY 6 HOURS NEEDED. as needed for PAIN Qty = 28 FUROSEMIDE (LASIX) 20 MG TAB 20 MILLIGRAM ORAL EVERY MORNING. Qty = 30 FAMOTIDINE (PEPCID) 20 MG TAB 20 MILLIGRAM ORAL TWICE DAILY. Qty = 60 APIXABAN (ELIQUIS) 5 MG TAB 5 MILLIGRAM ORAL TWICE DAILY. Comments: TAKE 1 TABLET BY MOUTH TWICE DAILY; #180 - SIG Obtained From [facility] glipiZIDE (GLUCOTROL) 5 MG TAB 5 MILLIGRAM ORAL BEFORE MEALS. Comments: TAKE 1 TABLET BY MOUTH ONCE DAILY 30 MINUTES BEFORE MEAL(S); #90 - SIG Obtained From [facility] ATORVASTATIN (LIPITOR) 40 MG TAB 40 MILLIGRAM ORAL DAILY. Comments: TAKE 1 TABLET BY MOUTH ONCE DAILY; #90 - SIG Obtained From [facility] PYRIDOXINE (VITAMIN B-6) 50 MG TAB 50 MILLIGRAM ORAL DAILY. LOSARTAN (COZAAR) 50 MG TAB 50 MILLIGRAM ORAL DAILY. Start taking the following new medications: METOPROLOL TARTRATE (LOPRESSOR) 25 MG TAB 25 MILLIGRAM ORAL EVERY 8 HOURS. Qty = 90 No Refills Instructions: . PROMETHAZINE (PHENERGAN) 12.5 MG TAB 12.5 MILLIGRAM ORAL TWICE DAILY. Qty = 60 No Refills ETHAMBUTOL (MYAMBUTOL) 400 MG TAB 1,600 MILLIGRAM ORAL DAILY. Qty = 30 No Refills ISONIAZID (ISONIAZID) 300 MG TAB 300 MILLIGRAM ORAL DAILY. Qty = 30 No Refills PYRAZINAMIDE (PYRAZINAMIDE) 500 MG TAB 1,500 MILLIGRAM ORAL DAILY. Qty = 30 No Refills NITROGLYCERIN (NITROSTAT) 0.4 MG TAB.SL 0.4 MILLIGRAM SUBLINGUAL EVERY 5 MINUTES NEEDED. as needed for CHEST PAIN Qty = 100 No Refills BUDESONIDE (PULMICORT) 0.5 MG/2 ML NEB 0.25 MILLIGRAM INHALATION RT - TWICE DAILY. Qty = 2 No Refills DIGOXIN (LANOXIN) 125 MCG TAB 0.125 MILLIGRAM ORAL DAILY. Qty = 30 No Refills POTASSIUM CHLORIDE ER (KLOR-CON M20) 20 MEQ TAB.SR 20 MILLIEQUIVALENT ORAL DAILY. Qty = 14 No Refills LOPERAMIDE (IMODIUM) 2 MG CAP 2 MILLIGRAM ORAL TWICE DAILY NEEDED. as needed for DIARRHEA Qty = 30 No Refills MAGNESIUM OXIDE (MAG-OXIDE) 400 MG TAB 400 MILLIGRAM ORAL THREE TIMES A DAY. Qty = 30 No Refills RIFABUTIN (MYCOBUTIN) 150 MG CAP 300 MILLIGRAM ORAL DAILY. Days = 30 Qty = 60 No Refills Objective VS/I O Last Documented: Result Date Time Pulse Ox 91 10/12 1230 B/P 145/86 10/12 1230 B/P Mean 105.6 10/12 1230 O2 Delivery Room air 10/12 1230 Temp 97.9 10/12 1230 Pulse 75 10/12 1230 Resp 22 10/12 1230 O2 Flow Rate 4 10/12 0817 FiO2 36 10/11 2058 24 hour I O ending at 0700: 10/12 0700 10/11 1900 Intake Total 100 Output Total 900 Balance -900 100 Intake, Oral 100 Output, Urine 900 Head/Eyes: atraumatic, normocephalic ENT: dry mucosal membrane Cardiovascular: regular rate rhythm, no murmur Respiratory: clear to auscultation Abdomen: non-tender, soft Extremities: no edema Musculoskeletal: no CVA tenderness Neuro/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: CNII-XII intact, no motor deficits Psychiatry: normal affect, normal judgment/insight, normal mood Results Findings/Data: Laboratory Tests: 10/12 10/12 10/11 10/11 10/11 1228 0530 2151 1527 1517 Chemistry Sodium (137 - 145 mmol/L) 135 L Potassium (3.4 - 5.0 mmol/L) 4.0 Chloride (98 - 107 mmol/L) 106 Carbon Dioxide (22 - 30 mmol/L) 26 Anion Gap 7 BUN (9 - 20 mg/dL) 10 Creatinine (0.7 - 1.3 mg/dL) < 0.5 L Glomerular Filtr Rate (mL/min) 107 Glucose (74 - 106 mg/dL) 225 H POC Glucose (74 - 106 MG/DL) 167 H 123 H 158 H 240 H Calcium (8.4 - 10.2 mg/dL) 9.0 Magnesium (1.6 - 2.3 mg/dL) 1.1 L Specimen Hemolysis (0 - 100 Index/DL) < 15 Discharge Instructions PCP PCP follow-up: PCP: Undefined Provider Follow-up labs,proc, tx: - CMP and magnesium check in 1 week Discharge to: Home [facility] Additional Discharge Routines: PCP Follow-Up, Client Liaison Follow-Up, F/U Labs/ Procedures, Add. instructions Diet: Diabetic, Cardiac Activity: No Driving, No Lifting >10lbs, Use wheelcahir and walker Notify PCP of these S/S: Increased redness Additional instructions: - Resume TB medications per DOT - Check glucose twice a day - resume Oxygen as prescibed Follow-up Appointments PCP follow-up: PCP: No Primary or Family Physician PCP follow up timeframe: In 2 days Consulting provider 1: Provider 1: Raghav Johnson MD Specialty: Infectious Disease Consult follow up timeframe: In 1-2 weeks Special instructions: - Call for follow up appt Consulting provider 2: Provider 2: Autumn Carbajal MD Specialty: Nephrology Follow up timeframe: In 1-2 weeks Special instructions: Call for follow up appt Consulting provider 3: Provider 3: Joselito Thomas MD Specialty: CardiologyInterventional Follow up timeframe: In 1-2 weeks Special instructions: Call for follow up appt k Consulting provider 4: Provider 4: Katelyn Joyner MD Specialty: Internal Medicine Follow up timeframe: in 1 week Special instructions: If you don't have a PCP, follow up at the [facility] for a BMP and magnesium check. Call for an appt Free Text DC Notes Free Text DC Notes: The total time spent engaging in discharge planning, speaking to the patient in detail about the final diagnoses/prognosis, speaking with case management , doing the discharge summary, placing orders for any referrals and completing prescriptions was 45 minutes. at 1304 [facility] #:[id number] END OF REPORT [facility] 2022-10-11 16:13:00 [facility] REPORT#:[id number] REPORT STATUS: Signed DATE:10/11/22 TIME: 3 PATIENT: MYA SNOWNCIO UNIT #: [id number] ROOM/BED: [address] : [address] AGE: 72 SEX: M ATTEND: Zander Gaston MD ADM AUTHOR: Zander Gaston MD * ALL edits or amendments must be made on the electronic/computer document * Subjective Chief complaint: Cough, SOB HPI: pt looks better Eating meals more still awaiting his son to pick him up Review of Systems All systems rev neg: except as noted Objective General VS/I O: Vital Signs: Date Time Temp Pulse Resp B/P B/P Pulse O2 O2 Flow FiO2 Mean Ox Delivery Rate 10/11 1528 98.4 77 23 108/64 78.9 91 10/11 1242 98.4 77 23 112/69 83.5 90 10/11 0745 98.1 71 23 112/65 80.5 97 10/11 0739 93 Nasal 3 32 cannula 10/11 0511 98.6 63 20 114/71 85.1 93 10/10 2352 97.9 58 17 118/74 89.1 96 Nasal cannula 10/10 2335 Nasal 3 cannula 10/10 2333 57 112/72 85.7 97 10/10 2225 98.2 63 18 111/71 84.2 95 Nasal cannula 10/10 2043 83 18 142/67 92.1 94 10/10 2001 96 Nasal 3 cannula 10/10 1627 98.1 64 15 120/75 89.8 96 24 hour I O ending at 0700: 10/11 0700 10/10 1900 Intake Total 240 1050 Output Total 150 1400 Balance 90 -350 Intake, Oral 240 1050 Number 2 Bowel Movements Output, Urine 150 1400 PATIENT WEIGHT: Weight (lb): 236 Weight (oz): 1.84 Weight (kg): 107.100 Medications: Active Meds + DC'd Last 24 Hrs Tiotropium [place] (SPIRIVA) 2 PUFF RTDAILY INH Albuterol/Ipratropium (DUONEB 3MG-0.5MG/3 ML) 3 ML RTQ6H INH Magnesium Oxide (MAG-OX ) 400 MG TID PO (CKD) Acetaminophen (TYLENOL REGULAR) 650 MG Q6H PRN PRN PO Pyrazinamide (PYRAZINAMIDE) 2,000 MG DAILY PO Potassium Chloride (K-DUR) 20 MEQ DAILY PO Megestrol Acetate (MEGESTROL 400MG/10ML) 400 MG DAILY PO Magnesium (MAGNESIUM SULFATE 1GM) 100 ML ASDIR PRN IV Magnesium Sulfate (MAGNESIUM SULFATE 2GM) 50 ML ASDIR PRN IV Magnesium Sulfate (MAGNESIUM SULFATE 4GM) 100 ML ASDIR PRN IV Digoxin (LANOXIN) 0.125 MG DAILY PO Famotidine (PEPCID) 20 MG DAILY PO Metoprolol Tartrate (LOPRESSOR) 25 MG Q8HR PO Metoprolol Tartrate (LOPRESSOR) 2.5 MG Q4H PRN PRN IV Non-Formulary Medication (NON-FORMULARY) RIFABUTIN 300 MG PO DAILY DAILY PO Ethambutol HCl (MYAMBUTOL) 1,600 MG DAILY PO Isoniazid (ISONIAZID,INH) 300 MG DAILY PO Promethazine HCl (PHENERGAN) 12.5 MG BID PO Loperamide HCl (IMODIUM) 2 MG BID PRN PRN PO Pyridoxine HCl (VITAMIN B-6) 50 MG DAILY PO Dextrose/Water (DEXTROSE 50% SYR) 25 ML ASDIR PRN IV (CKD) Glucagon (GLUCAGON) 1 MG ASDIR PRN IM Insulin Human Lispro (HumaLOG) MODERATE DOSE SCALE ASDIR SUBQ Hydralazine HCl (APRESOLINE) 10 MG Q6H PRN PRN IV Nitroglycerin (NITROQUICK BOTTLE) 0.4 MG Q5M PRN PRN SL Ondansetron HCl (ZOFRAN 4 MG/2 ML INJ) 4 MG Q4H PRN PRN IV Apixaban (ELIQUIS) 5 MG BID PO Physical Exam General appearance: alert, oriented Head/Eyes: atraumatic, normocephalic Cardiovascular: regular rate rhythm, no murmur Respiratory: clear to auscultation Abdomen: non-tender, soft Extremities: no edema Musculoskeletal: no CVA tenderness Neuro/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: CNII-XII intact, no motor deficits Results Findings/Data: Laboratory Tests 10/11 10/11 10/11 10/11 1527 1517 1214 0508 Chemistry Sodium (137 - 145 mmol/L) 135 L Potassium (3.4 - 5.0 mmol/L) 4.0 Chloride (98 - 107 mmol/L) 106 Carbon Dioxide (22 - 30 mmol/L) 26 Anion Gap 7 BUN (9 - 20 mg/dL) 10 Creatinine (0.7 - 1.3 mg/dL) < 0.5 L Glomerular Filtr Rate (mL/min) 107 Glucose (74 - 106 mg/dL) 225 H POC Glucose (74 - 106 MG/DL) 240 H 202 H 133 H Calcium (8.4 - 10.2 mg/dL) 9.0 Magnesium (1.6 - 2.3 mg/dL) 1.1 L Specimen Hemolysis (0 - 100 Index/DL) < 15 Diagnosis, Assessment Plan Consultants: cardiology, hospitalist, infectious disease Free Text DxA P Notes Free text DxA P notes: A/P: # Active Pulmonary tuberculosis with acute hypoxic respiratory failure - Patient was recently diagnosed with pulmonary tuberculosis on 4 agent therapy at [facility]. - Health Dept RN assigned: Peg Lozoya [phone] -- needs DOT order for pt to obtain medications, monthly LFTs, etc -- CM consulted - Chest x-ray obtained here does show cavitary lesion - Pt started on TB meds 5 days prior to admission via [facility] - I.D consulted, restarted RIPE tx - recent CXR shows no new changes - Home O2 has been set up # Paroxysmal A-fib/flutter w/ RVR - CHADSVASC 3 - PMHx of A-fib on eliquis/lopressor -- resumed home eliquis for AC and lopressor for rate ctl - on admisssion pt was in NSR - TSH WNL - likely 2/2 persistent hypomagnesemia - RVR episodes: -- 09/30/22: responded to lopressor 5mg IV q5min x2 doses and 1L IVFR bolus -- 10/01/22: Aflutter 2:1, tried lopressor 5mg IV x1 dose, BP decreased, followed by amio 150mg IV bolus; considered diltiazem, however SBP <90mmHg - cardiology consulted, cont IVFR, increased lopressor dose frequency, avoid amio due to rifampin [id number] inhibition, digoxin trial w/ loading dose - 2D ECHO shows normal LV fxn # Hypomagnesemia - likely 2/2 recent diarrhea - repleted IV earlier - cont to monitor and replete - Nephrology consulted - started on Mag oxide 400 mg TID # Normocytic anemia - cont to monitor # Recent Gastroenteritis, resolved - Patient presented with reported nausea, vomiting, diarrhea ongoing for approximately 5 days with some associated abdominal pain. 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 plan to send home once son picks him up. CM has made several calls to him to no avail.. at 1616 RPT #:[id number] END OF REPORT [facility] 2022-10-11 07:09:00 ([facility] Nephrology Progress Note REPORT#:[id number] REPORT STATUS: Signed DATE:10/11/22 TIME: 708 PATIENT: SEYMOUR SNOW UNIT #: [id number] ROOM/BED: [address] : [address] AGE: 72 SEX: M ATTEND: Zander Gaston MD ADM AUTHOR: Jono Pagan DO R1 * ALL edits or amendments must be made on the electronic/computer document * Jono Pagan R1 10/11/22 0709: Subjective HPI: Patient awake, on room air, NC O2 nearby. No acute concerns at this time. Objective General VS/I O: Vital Signs: Date Time Temp Pulse Resp B/P B/P Pulse O2 O2 Flow FiO2 Mean Ox Delivery Rate 10/11 1242 98.4 77 23 112/69 83.5 90 10/11 0745 98.1 71 23 112/65 80.5 97 10/11 0739 93 Nasal 3 32 cannula 10/11 0511 98.6 63 20 114/71 85.1 93 10/10 2352 97.9 58 17 118/74 89.1 96 Nasal cannula 10/10 2335 Nasal 3 cannula 10/10 2333 57 112/72 85.7 97 10/10 2225 98.2 63 18 111/71 84.2 95 Nasal cannula 10/10 2043 83 18 142/67 92.1 94 10/10 2000 96 Nasal 3 cannula 10/10 1627 98.1 64 15 120/75 89.8 96 10/10 1500 Nasal 3 cannula 24 hour I O ending at 0700: 10/11 0700 10/10 1900 Intake Total 240 1050 Output Total 150 1400 Balance 90 -350 Intake, Oral 240 1050 Number 2 Bowel Movements Output, Urine 150 1400 PATIENT WEIGHT: Weight (lb): 236 Weight (oz): 1.84 Weight (kg): 107.100 Medications Active Meds + DC'd Last 24 Hrs Tiotropium [place] (SPIRIVA) 2 PUFF RTDAILY INH Albuterol/Ipratropium (DUONEB 3MG-0.5MG/3 ML) 3 ML RTQ6H INH Magnesium Oxide (MAG-OX ) 400 MG TID PO (CKD) Acetaminophen (TYLENOL REGULAR) 650 MG Q6H PRN PRN PO Pyrazinamide (PYRAZINAMIDE) 2,000 MG DAILY PO Potassium Chloride (K-DUR) 20 MEQ DAILY PO Megestrol Acetate (MEGESTROL 400MG/10ML) 400 MG DAILY PO Magnesium (MAGNESIUM SULFATE 1GM) 100 ML ASDIR PRN IV Magnesium Sulfate (MAGNESIUM SULFATE 2GM) 50 ML ASDIR PRN IV Magnesium Sulfate (MAGNESIUM SULFATE 4GM) 100 ML ASDIR PRN IV Digoxin (LANOXIN) 0.125 MG DAILY PO Famotidine (PEPCID) 20 MG DAILY PO Metoprolol Tartrate (LOPRESSOR) 25 MG Q8HR PO Metoprolol Tartrate (LOPRESSOR) 2.5 MG Q4H PRN PRN IV Non-Formulary Medication (NON-FORMULARY) RIFABUTIN 300 MG PO DAILY DAILY PO Ethambutol HCl (MYAMBUTOL) 1,600 MG DAILY PO Isoniazid (ISONIAZID,INH) 300 MG DAILY PO Promethazine HCl (PHENERGAN) 12.5 MG BID PO Loperamide HCl (IMODIUM) 2 MG BID PRN PRN PO Pyridoxine HCl (VITAMIN B-6) 50 MG DAILY PO Dextrose/Water (DEXTROSE 50% SYR) 25 ML ASDIR PRN IV (CKD) Glucagon (GLUCAGON) 1 MG ASDIR PRN IM Insulin Human Lispro (HumaLOG) MODERATE DOSE SCALE ASDIR SUBQ Hydralazine HCl (APRESOLINE) 10 MG Q6H PRN PRN IV Nitroglycerin (NITROQUICK BOTTLE) 0.4 MG Q5M PRN PRN SL Ondansetron HCl (ZOFRAN 4 MG/2 ML INJ) 4 MG Q4H PRN PRN IV Apixaban (ELIQUIS) 5 MG BID PO Dietitian nutrition assessment The data set between the solid lines has been imported from the dietitian's assessment. BMI Calculated: 30.5 Nutrition related diagnosis: Obese Nutrition diagnosis details: BMI 30-39.9 Nutrition problem: Increased nutrient needs Nutrition etiology: INFECTION, PANCREATITIS Nutrition signs and symptoms: ADMITTED WITH ACTIVE TB, NAUSE, A, VOMITING, DIARREHEA Nutrition prescription: -RECOMMEND CCD5 DIET TOLERATED -WILL SEND GLUCERNA TID TO HELP MEET KCAL/PRO NEEDS -RD TO F/U PER FNS PROTOCOL Dietitian name: Tisha Hutchison RDN, SIMON Assessment completed: 10/09/22 Physical Exam General appearance: alert, awake, oriented, no respiratory distress Head/eyes: atraumatic, PERRL ENT: normal nose, no uvular shift/swelling Neck: no JVD, no lymphadenopathy, no masses or swelling Cardiovascular: no murmur, no rub Respiratory: symmetric expansion, no distress Abdomen: no pulsatile mass, no rebound Extremities: non-tender, no swelling Musculoskeletal: normal inspection, no tenderness Neuro/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: alert, oriented X 3 Skin: dry, intact Psychiatry: normal mood, normal judgment/insight Results Findings/Data: Laboratory Tests 10/11 10/11 10/10 1214 0508 1554 Chemistry POC Glucose (74 - 106 MG/DL) 202 H 133 H 174 H Results: labs reviewed, vital signs reviewed, current med profile rev'd Diagnosis, Assessment Plan Free Text A P: Laboratory Tests 10/06 10/05 10/04 10/04 10/04 0016 1125 2317 1040 0159 Chemistry Sodium (137 - 145 mmol/L) 135 L 139 137 Potassium (3.4 - 5.0 mmol/L) 4.2 3.3 L 3.6 3.8 3.3 L Chloride (98 - 107 mmol/L) 102 107 103 Carbon Dioxide (22 - 30 mmol/L) 30 30 31 H BUN (9 - 20 mg/dL) 6 L 9 9 Creatinine (0.7 - 1.3 mg/dL) < 0.5 L < 0.5 L 0.5 L Glucose (74 - 106 mg/dL) 134 H 111 H 108 H Impression and plan: 1. Hypomagnesemia Patient has history of hypomagnesemia in the past Difficult to do fractional excretion of magnesium as our labs does not urine random magnesium We will order a 24-hour magnesium to see if there is renal wasting: pending Also I reviewed the medication and patient is not on any PPI Increase p.o. magnesium replacement, Magnesium trends are noted Order 24-hour urine magnesium with creatinine for fractional excretion of magnesium evaluation 2. Anorexia This patient regarding some of the low magnesium We will start low-dose of Megace 3. Diarrhea Patient is on multiple medication for tuberculosis Advised primary team to discuss with ID to see if any of them can commonly cause diarrhea and then can be changed 4. Atrial flutter Keep potassium above 4 Reviewed labs We will start low-dose of potassium k trend better October 09, 2022 -No additional episodes of diarrhea -Will increase Oral Magnesium to 400mg TID -Urine Mag 24-hours being collected -Will need to followup outpatient with nephrology for ongoing hypomagnesemia October 10, 2022 -Noted to have Mg 1.1 today, not receiving sliding scale Magnesium, spoke with nurse will administer IV 4mg IV per sliding scale -C/t Mag 400 TID, magnesium 24-hour Urine pending October 11, 2022 -No new labs, BMP, Mg ordered, previous Mg 1.1 replace as needed -C/t Mag 400 TID, pending results of 24-hr Urine d/w attending Autumn Hollins 10/12/22 1019: Attestations Physician Attestation Agree w/findings plan: Agree with the findings and plan as documented by dr pagan spent a lot of time on phone with [facility] mary bruce Id on october 11 at 10:09 am it is unclera why 24 hour urine magnesium HAS NOT BEEN PERFORMED despite 2 separate orders? on the second order a 24 hour urine creatinine was performed, but no magnesium for unclera reason, lab confirmed that the order is clearly and appropriately marked for 24 hour urine magnesium also. per lab they still haave the sample and will send it today for Magnesium level dw dr pagan cont [facility] care It is unclear at this time if renal cause of hypomagnesemia bc of lack of results above to calculate fratctional excretion ofmagnesium bipin [place] [facility] at 1658 at 1021 RPT #:[id number] END OF REPORT [facility] 2022-10-10 15:03:00 ([facility] Hospitalist Discharge Summary REPORT#:[id number] REPORT STATUS: Signed DATE:10/10/22 TIME: 1503 PATIENT: MYA SNOWNCIO UNIT #: [id number] ROOM/BED: [address] : [birth year] AGE: 72 SEX: M ATTEND: Zander Gaston MD ADM AUTHOR: Zander Gaston MD * ALL edits or amendments must be made on the electronic/computer document * General Information Discharge date: 10/07/22 Discharge diagnosis: Active tuberculosis Chronic atrial flutter Respiratory failure with hypoxia secondary from pulmonary tuberculosis Acute on chronic hypoxic respiratory failure Physical deconditioning Hospital course: Patient is a 72-year-old male with past medical history of hypertension, diabetes, CAD, A-fib, recently diagnosed TB on treatment who presented to the ED with complaints of nausea, vomiting, diarrhea for the past 5 days. Patient was recently admitted at [facility] approximately 3 days ago for treatment of TB. Symptoms started while patient was there. Patient states that he takes his TB medication he gets abdominal pain that is epigastric and is relieved once he has a bowel movement which has been watery diarrhea for about the past 5 days. Patient is also having intermittent episodes of nonbilious nonbloody nausea and vomiting along with lack of appetite. He denies any fevers , chills, chest pain, shortness of breath, intermittent constipation. Also denies any hematochezia, melena, recent antibiotic use apart from current TB treatment medications. The first time patient is having such occurrence. In the ED patient was afebrile, blood pressure was 81/58-1 69, heart rate 114 , respirations 20, satting 98% on room air. CBC was within normal limits. CMP is significant for bicarb 32, alk phos 156. Lipase 371, magnesium 1.0, lactic acid 1.9, troponin negative. UA: Leukocyte esterase positive, WBCs 6-10, hyaline casts 6-10. In the ED patient received 2.8 L of LR, Zosyn, 2 g magnesium. Consultants: cardiology, hospitalist, infectious disease Free Text DxA P Notes Free text DxA P notes: A/P # Active Pulmonary tuberculosis with acute hypoxic respiratory failure - Patient was recently diagnosed with pulmonary tuberculosis on 4 agent therapy at [facility]. - Health Dept RN assigned: Peg Lozoya [phone] -- needs DOT order for pt to obtain medications, monthly LFTs, etc -- CM consulted - Chest x-ray obtained here does show cavitary lesion - Pt started on TB meds 5 days prior to admission via [facility] - I.D consulted, restarted RIPE tx - DOT will set up his TB med after d/c - Home O2 will be set up - he will go home with his family - he has a walker and wheelchair at home # Paroxysmal A-fib/flutter w/ RVR - CHADSVASC 3 - PMHx of A-fib on eliquis/lopressor -- resumed home eliquis for AC and lopressor for rate ctl - on admisssion pt was in NSR - TSH WNL - likely 2/2 persistent hypomagnesemia - RVR episodes: -- 09/30/22: responded to lopressor 5mg IV q5min x2 doses and 1L IVFR bolus -- 10/01/22: Aflutter 2:1, tried lopressor 5mg IV x1 dose, BP decreased, followed by amio 150mg IV bolus; considered diltiazem, however SBP <90mmHg - cardiology consulted, cont IVFR, increased lopressor dose frequency, avoid amio due to rifampin [id number] inhibition, digoxin was started - 2D ECHO shows normal LV fxn # Hypomagnesemia/hypokalemia - likely 2/2 recent diarrhea - repleted aggressively IV and oral - Nephrology consulted - started on Mag oxide 400 mg TID and KCL 20 meq daily - He will need repeat labs in 1 week # Normocytic anemia - cont to monitor # Recent Gastroenteritis, resolved - Patient presented with reported nausea, vomiting, diarrhea ongoing for approximately 5 days with some associated abdominal pain. 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 Qty = 60 METOPROLOL TARTRATE (LOPRESSOR) 25 MG TAB 12.5 MILLIGRAM ORAL TWICE DAILY. ETHAMBUTOL (MYAMBUTOL) 400 MG TAB 1,200 MILLIGRAM ORAL DAILY. PYRAZINAMIDE (PYRAZINAMIDE) 500 MG TAB 1,500 MILLIGRAM ORAL DAILY. rifAMPin (RIFADIN) 300 MG CAP 600 MILLIGRAM ORAL DAILY. ISONIAZID (ISONIAZID) 300 MG TAB 300 MILLIGRAM ORAL DAILY. metFORMIN (GLUCOPHAGE) 850 MG TAB 850 MILLIGRAM ORAL TWICE DAILY WITH MEALS. Continue taking these medications: ACETAMINOPHEN (TYLENOL) 325 MG TAB 650 MILLIGRAM ORAL EVERY 8 HOURS. as needed for pain Days = 30 BISACODYL EC (DULCOLAX EC) 5 MG TAB.DR 10 MILLIGRAM ORAL DAILY NEEDED. as needed for CONSTIPATION Days = 30 MEGESTROL (MEGACE) 40 MG TAB 40 MILLIGRAM ORAL DAILY. Qty = 30 traMADol (ULTRAM) 50 MG TAB 50 MILLIGRAM ORAL EVERY 6 HOURS NEEDED. as needed for PAIN Qty = 28 FUROSEMIDE (LASIX) 20 MG TAB 20 MILLIGRAM ORAL EVERY MORNING. Qty = 30 FAMOTIDINE (PEPCID) 20 MG TAB 20 MILLIGRAM ORAL TWICE DAILY. Qty = 60 APIXABAN (ELIQUIS) 5 MG TAB 5 MILLIGRAM ORAL TWICE DAILY. Comments: TAKE 1 TABLET BY MOUTH TWICE DAILY; #180 - [facility] (GLUCOTROL) 5 MG TAB 5 MILLIGRAM ORAL BEFORE MEALS. Comments: TAKE 1 TABLET BY MOUTH ONCE DAILY 30 MINUTES BEFORE MEAL(S); #90 - SIG Obtained From [facility] ATORVASTATIN (LIPITOR) 40 MG TAB 40 MILLIGRAM ORAL DAILY. Comments: TAKE 1 TABLET BY MOUTH ONCE DAILY; #90 - SIG Obtained From [facility] PYRIDOXINE (VITAMIN B-6) 50 MG TAB 50 MILLIGRAM ORAL DAILY. LOSARTAN (COZAAR) 50 MG TAB 50 MILLIGRAM ORAL DAILY. Start taking the following new medications: METOPROLOL TARTRATE (LOPRESSOR) 25 MG TAB 25 MILLIGRAM ORAL EVERY 8 HOURS. Qty = 90 No Refills Instructions: . PROMETHAZINE (PHENERGAN) 12.5 MG TAB 12.5 MILLIGRAM ORAL TWICE DAILY. Qty = 60 No Refills ETHAMBUTOL (MYAMBUTOL) 400 MG TAB 1,600 MILLIGRAM ORAL DAILY. Qty = 30 No Refills ISONIAZID (ISONIAZID) 300 MG TAB 300 MILLIGRAM ORAL DAILY. Qty = 30 No Refills PYRAZINAMIDE (PYRAZINAMIDE) 500 MG TAB 1,500 MILLIGRAM ORAL DAILY. Qty = 30 No Refills NITROGLYCERIN (NITROSTAT) 0.4 MG TAB.SL 0.4 MILLIGRAM SUBLINGUAL EVERY 5 MINUTES NEEDED. as needed for CHEST PAIN Qty = 100 No Refills BUDESONIDE (PULMICORT) 0.5 MG/2 ML NEB 0.25 MILLIGRAM INHALATION RT - TWICE DAILY. Qty = 2 No Refills DIGOXIN (LANOXIN) 125 MCG TAB 0.125 MILLIGRAM ORAL DAILY. Qty = 30 No Refills POTASSIUM CHLORIDE ER (KLOR-CON M20) 20 MEQ TAB.SR 20 MILLIEQUIVALENT ORAL DAILY. Qty = 14 No Refills LOPERAMIDE (IMODIUM) 2 MG CAP 2 MILLIGRAM ORAL TWICE DAILY NEEDED. as needed for DIARRHEA Qty = 30 No Refills MAGNESIUM OXIDE (MAG-OXIDE) 400 MG TAB 400 MILLIGRAM ORAL THREE TIMES A DAY. Qty = 30 No Refills RIFABUTIN (MYCOBUTIN) 150 MG CAP 300 MILLIGRAM ORAL DAILY. Days = 30 Qty = 60 No Refills Objective VS/I O Last Documented: Result Date Time Pulse Ox 96 10/10 1057 B/P 121/77 10/10 1057 B/P Mean 91.8 10/10 1057 Temp 97.9 10/10 1057 Pulse 63 10/10 1057 Resp 15 10/10 1057 O2 Delivery Nasal cannula 10/10 0800 O2 Flow Rate 3 10/10 0800 FiO2 32 10/09 2208 24 hour I O ending at 0700: 10/10 0700 10/09 1900 Intake Total 420 794 Output Total 350 Balance 70 794 Intake, Oral 420 200 Intake, Oral 594 Supplement Number 1 Bowel Movements Output, Urine 350 General appearance: alert, oriented, looks better Head/Eyes: atraumatic, normocephalic ENT: dry mucosal membrane Cardiovascular: normal heart sounds, regular rate rhythm Respiratory: clear to auscultation, symmetric expansion, no distress Abdomen: non-tender, normal bowel sounds, soft, no distention Extremities: moves all, no edema Musculoskeletal: normal inspection Neuro/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: CNII-XII intact, no motor deficits Psychiatry: normal affect, normal judgment/insight, normal mood Results Findings/Data: Laboratory Tests: 10/10 10/10 10/10 10/09 10/09 1056 0432 0352 1925 1538 Chemistry Sodium (137 - 145 mmol/L) 136 L Potassium (3.4 - 5.0 mmol/L) 4.4 Chloride (98 - 107 mmol/L) 105 Carbon Dioxide (22 - 30 mmol/L) 25 Anion Gap 10 BUN (9 - 20 mg/dL) 10 Creatinine (0.7 - 1.3 mg/dL) < 0.5 L Glomerular Filtr Rate (mL/min) 107 Glucose (74 - 106 mg/dL) 155 H POC Glucose (74 - 106 MG/DL) 209 H 164 H 241 H 151 H Calcium (8.4 - 10.2 mg/dL) 9.1 Magnesium (1.6 - 2.3 mg/dL) 1.1 L Specimen Hemolysis (0 - 100 Index/DL) < 15 Hematology WBC (5.0 - 12.0 x10 3/uL) 6.5 RBC (4.70 - 6.10 x10 6/uL) 3.88 L Hgb (14.0 - 18.0 g/dL) 11.8 L Hct (37.0 - 49.0 %) 34.7 L MCV (80 - 94 fL) 89 MCH (27 - 31 pg) 30.4 MCHC (33 - 37 g/dL) 34.0 RDW (11.5 - 15.5 %) 13.6 Plt Count (130 - 400 x10 3/uL) 238 MPV (9.4 - 16.4 fL) 9.0 L Neut % (Auto) (43 - 65 %) 57.4 Lymph % (Auto) (20.5 - 45.5 %) 24.7 [place] % (Auto) (5.5 - 11.7 %) 10.6 Eos % (Auto) (0.9 - 2.9 %) 5.9 H Baso % (Auto) (0.2 - 1.0 %) 0.9 Neut # (Auto) (2.2 - 4.8 x10 3/uL) 3.73 Lymph # (Auto) (1.3 - 2.9 x10 3/uL) 1.60 [place] # (Auto) (0.3 - 0.8 x10 3/uL) 0.69 Eos # (Auto) (0.0 - 0.2 x10 3/uL) 0.38 H Baso # (Auto) (0.0 - 0.1 x10 3/uL) 0.06 Immature Gran % (0.0 - 2.0 %) 0.5 Nucleated RBC % (0 - 1.0 %) 0.0 Discharge Instructions PCP PCP follow-up: PCP: Undefined Provider Follow-up labs,proc, tx: - BMP and magnesium check in 1 week Discharge to: Home Health [facility] Additional Discharge Routines: PCP Follow-Up, Client Liaison Follow-Up, F/U Labs/ Procedures, Add. instructions Diet: Diabetic, Cardiac Activity: No Driving, No Lifting >10lbs, Use wheelcahir and walker Notify PCP of these S/S: Increased redness Additional instructions: - Resume TB medications per DOT - Check glucose twice a day - resume Oxygen as prescibed Follow-up Appointments PCP follow-up: PCP: No Primary or Family Physician PCP follow up timeframe: In 2 days Consulting provider 1: Provider 1: Raghav Johnson MD Specialty: Infectious Disease Consult follow up timeframe: In 1-2 weeks Special instructions: - Call for follow up appt Consulting provider 2: Provider 2: Autumn Carbajal MD Specialty: Nephrology Follow up timeframe: In 1-2 weeks Special instructions: Call for follow up appt Consulting provider 3: Provider 3: Joselito Thomas MD Specialty: CardiologyInterventional Follow up timeframe: In 1-2 weeks Special instructions: Call for follow up appt Consulting provider 4: Provider 4: Katelyn Joyner MD Specialty: Internal Medicine Follow up timeframe: in 1 week Special instructions: If you don't have a PCP, follow up at the [facility] for a BMP and magnesium check. Call for an appt Free Text DC Notes Free Text DC Notes: The total time spent engaging in discharge planning, speaking to the patient/ family in detail about the final diagnoses/prognosis, speaking with case management, doing the discharge summary, placing orders for any referrals and completing prescriptions was 45 minutes. at 1511 [facility] #:[id number] END OF REPORT [facility] 2022-10-10 07:32:00 [facility] Nephrology Progress Note REPORT#:[id number] REPORT STATUS: Signed DATE:10/10/22 TIME: 731 PATIENT: JAYLA SARAHSEYMOUR UNIT #: [id number] ROOM/BED: [address] : [birth year] AGE: 72 SEX: M ATTEND: Zander Gaston MD ADM AUTHOR: Jono Pagan DO R1 * ALL edits or amendments must be made on the electronic/computer document * Jono Pagan R1 10/10/22 0732: Subjective HPI: Patient resting in bed. Questions if he actually has TB in his lungs. Discussed Magnesium as well as ongoing treatment for TB, reports having TB "for months." Discussed strict adherence with ID and nephrology. No other concerns at this time. Objective General VS/I O: Vital Signs: Date Time Temp Pulse Resp B/P B/P Pulse O2 O2 Flow FiO2 Mean Ox Delivery Rate 10/10 1057 97.9 63 15 121/77 91.8 96 10/10 0800 Nasal 3 cannula 10/10 0741 97.7 65 15 108/71 83.3 96 10/10 0354 97.7 56 19 110/69 82.5 92 10/09 2345 97.9 60 18 123/70 88.0 95 10/09 2208 Nasal 3 32 cannula 10/09 2030 Nasal 2 cannula 10/09 1926 97.9 67 111/73 85.8 95 10/09 1539 97.9 64 16 115/73 87.2 93 24 hour I O ending at 0700: 10/10 0700 10/09 1900 Intake Total 420 794 Output Total 350 Balance 70 794 Intake, Oral 420 200 Intake, Oral 594 Supplement Number 1 Bowel Movements Output, Urine 350 PATIENT WEIGHT: Weight (lb): 236 Weight (oz): 1.84 Weight (kg): 107.100 Medications Active Meds + DC'd Last 24 Hrs Tiotropium [place] (SPIRIVA) 2 PUFF RTDAILY INH Albuterol/Ipratropium (Combivent Respimat Inhal [place] (NF)) 2 PUFF Q6H INH (PEND) Magnesium (MAGNESIUM SULFATE 1GM) 100 ML ONCE ONE IV (CAN) Magnesium Oxide (MAG-OX ) 400 MG TID PO (CKD) Acetaminophen (TYLENOL REGULAR) 650 MG Q6H PRN PRN PO Pyrazinamide (PYRAZINAMIDE) 2,000 MG DAILY PO Potassium Chloride (K-DUR) 20 MEQ DAILY PO Megestrol Acetate (MEGESTROL 400MG/10ML) 400 MG DAILY PO Magnesium (MAGNESIUM SULFATE 1GM) 100 ML ASDIR PRN IV Magnesium Sulfate (MAGNESIUM SULFATE 2GM) 50 ML ASDIR PRN IV Magnesium Sulfate (MAGNESIUM SULFATE 4GM) 100 ML ASDIR PRN IV Digoxin (LANOXIN) 0.125 MG DAILY PO Famotidine (PEPCID) 20 MG DAILY PO Metoprolol Tartrate (LOPRESSOR) 25 MG Q8HR PO Metoprolol Tartrate (LOPRESSOR) 2.5 MG Q4H PRN PRN IV Albuterol/Ipratropium (DUONEB 3MG-0.5MG/3 ML) 3 ML RTQ6H INH (DC) Budesonide (PULMICORT RESPULES) 0.25 MG RTBID INH (DC) Non-Formulary Medication (NON-FORMULARY) RIFABUTIN 300 MG PO DAILY DAILY PO Ethambutol HCl (MYAMBUTOL) 1,600 MG DAILY PO Isoniazid (ISONIAZID,INH) 300 MG DAILY PO Promethazine HCl (PHENERGAN) 12.5 MG BID PO Loperamide HCl (IMODIUM) 2 MG BID PRN PRN PO Pyridoxine HCl (VITAMIN B-6) 50 MG DAILY PO Dextrose/Water (DEXTROSE 50% SYR) 25 ML ASDIR PRN IV (CKD) Glucagon (GLUCAGON) 1 MG ASDIR PRN IM Insulin Human Lispro (HumaLOG) MODERATE DOSE SCALE ASDIR SUBQ Hydralazine HCl (APRESOLINE) 10 MG Q6H PRN PRN IV Nitroglycerin (NITROQUICK BOTTLE) 0.4 MG Q5M PRN PRN SL Ondansetron HCl (ZOFRAN 4 MG/2 ML INJ) 4 MG Q4H PRN PRN IV Apixaban (ELIQUIS) 5 MG BID PO Physical Exam General appearance: respiratory support (nasal oxygen), alert, awake, no acute distress Head/eyes: atraumatic, PERRL ENT: normal nose, no uvular shift/swelling Neck: no JVD, no lymphadenopathy, no masses or swelling Cardiovascular: no murmur, no rub Respiratory: symmetric expansion, no distress Abdomen: no pulsatile mass, no rebound Extremities: non-tender, no swelling Musculoskeletal: normal inspection, no tenderness Neuro/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: alert, oriented X 3 Skin: dry, intact Psychiatry: normal mood, normal judgment/insight Results Findings/Data: Laboratory Tests 10/10 10/10 10/10 10/09 10/09 1056 0432 0352 1925 1538 Chemistry Sodium (137 - 145 mmol/L) 136 L Potassium (3.4 - 5.0 mmol/L) 4.4 Chloride (98 - 107 mmol/L) 105 Carbon Dioxide (22 - 30 mmol/L) 25 Anion Gap 10 BUN (9 - 20 mg/dL) 10 Creatinine (0.7 - 1.3 mg/dL) < 0.5 L Glomerular Filtr Rate (mL/min) 107 Glucose (74 - 106 mg/dL) 155 H POC Glucose (74 - 106 MG/DL) 209 H 164 H 241 H 151 H Calcium (8.4 - 10.2 mg/dL) 9.1 Magnesium (1.6 - 2.3 mg/dL) 1.1 L Specimen Hemolysis (0 - 100 Index/DL) < 15 Laboratory Tests 10/10 0432 Hematology WBC (5.0 - 12.0 x10 3/uL) 6.5 RBC (4.70 - 6.10 x10 6/uL) 3.88 L Hgb (14.0 - 18.0 g/dL) 11.8 L Hct (37.0 - 49.0 %) 34.7 L MCV (80 - 94 fL) 89 MCH (27 - 31 pg) 30.4 MCHC (33 - 37 g/dL) 34.0 RDW (11.5 - 15.5 %) 13.6 Plt Count (130 - 400 x10 3/uL) 238 MPV (9.4 - 16.4 fL) 9.0 L Neut % (Auto) (43 - 65 %) 57.4 Lymph % (Auto) (20.5 - 45.5 %) 24.7 [place] % (Auto) (5.5 - 11.7 %) 10.6 Eos % (Auto) (0.9 - 2.9 %) 5.9 H Baso % (Auto) (0.2 - 1.0 %) 0.9 Neut # (Auto) (2.2 - 4.8 x10 3/uL) 3.73 Lymph # (Auto) (1.3 - 2.9 x10 3/uL) 1.60 [place] # (Auto) (0.3 - 0.8 x10 3/uL) 0.69 Eos # (Auto) (0.0 - 0.2 x10 3/uL) 0.38 H Baso # (Auto) (0.0 - 0.1 x10 3/uL) 0.06 Immature Gran % (0.0 - 2.0 %) 0.5 Nucleated RBC % (0 - 1.0 %) 0.0 Results: labs reviewed, vital signs reviewed, current med profile rev'd Diagnosis, Assessment Plan Free Text A P: Laboratory Tests 10/06 10/05 10/04 10/04 10/04 0016 1125 2317 1040 0159 Chemistry Sodium (137 - 145 mmol/L) 135 L 139 137 Potassium (3.4 - 5.0 mmol/L) 4.2 3.3 L 3.6 3.8 3.3 L Chloride (98 - 107 mmol/L) 102 107 103 Carbon Dioxide (22 - 30 mmol/L) 30 30 31 H BUN (9 - 20 mg/dL) 6 L 9 9 Creatinine (0.7 - 1.3 mg/dL) < 0.5 L < 0.5 L 0.5 L Glucose (74 - 106 mg/dL) 134 H 111 H 108 H Impression and plan: 1. Hypomagnesemia Patient has history of hypomagnesemia in the past Difficult to do fractional excretion of magnesium as our labs does not urine random magnesium We will order a 24-hour magnesium to see if there is renal wasting: pending Also I reviewed the medication and patient is not on any PPI Increase p.o. magnesium replacement, Magnesium trends are noted Order 24-hour urine magnesium with creatinine for fractional excretion of magnesium evaluation 2. Anorexia This patient regarding some of the low magnesium We will start low-dose of Megace 3. Diarrhea Patient is on multiple medication for tuberculosis Advised primary team to discuss with ID to see if any of them can commonly cause diarrhea and then can be changed 4. Atrial flutter Keep potassium above 4 Reviewed labs We will start low-dose of potassium k trend better October 09, 2022 -No additional episodes of diarrhea -Will increase Oral Magnesium to 400mg TID -Urine Mag 24-hours being collected -Will need to followup outpatient with nephrology for ongoing hypomagnesemia October 10, 2022 -Noted to have Mg 1.1 today, not receiving sliding scale Magnesium, spoke with nurse will administer IV 4mg IV per sliding scale -C/t Mag 400 TID, magnesium 24-hour Urine pending d/w attending Autumn Hollins 10/16/22 0825: Attestations Physician Attestation Agree w/findings plan: Patient was seen and examined by me personally and independently during round and supervision of resident physician. Available data, labs, current medications and clincal documetation was also independently reviewed, while also reviewed on rounds with resident physician. Assessment and plan was discused with resident physician in detail for formualation of nephrology plan of care. Pedro Carbajal MD Attending Physician Nephrology Reviewed findings plan: Reviewed the findings and plan as documented by [insert LEANNE name]; * my personal evaluation is [ ] at 1326 at [phone] [facility] #:[id number] END OF REPORT [facility] Critical Care Progress Note REPORT#:[id number] REPORT STATUS: Signed DATE:10/09/22 TIME: 2225 PATIENT: SEYMOUR SNOW UNIT #: [id number] ROOM/BED: [address] : [address] AGE: 72 SEX: M ATTEND: Zander Gaston MD ADM AUTHOR: Manasa Dimas MD * ALL edits or amendments must be made on the electronic/computer document * Subjective Chief complaint: palpitations HPI: afib rate controlled feeling fine on 3 L oxygen NC Objective Physical Exam Head/eyes: atraumatic, clear cornea Neck: full range of motion, non-tender Cardiovascular: irregular rhythm, tachycardia, no thrill, hypotension Respiratory: aerating well, clear to auscultation, symmetric expansion, no distress Abdomen: soft, non-tender, normal bowel sounds Extremities: moves all, normal capillary refill Musculoskeletal normal inspection, painless range of motion Neuro/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: alert, oriented X 3 Skin: dry, intact Diagnosis, Assessment Plan Free text A P: Seymour Selby is a 72 yo M w hx HTN, DM, CAD, afib on eliquis, and recent dx of pulmonary TB presenting with acute atrial flutter w rvr and hypotension alongside N/V/D. NEURO acute and oriented appears at baseline CV # atrial flutter w rvr # hypotension - echo pending - K > 4 Mag > 2 - cont tele monitoring - avoiding amio due to rifampin dosing - converted to SR initially - Patient reverted back to AFlutter with RVR. Will give IV digoxin 0.5 mg now per cardio recs - increase lopressor to 25 mg po q8h. - Due to active pulm TB, he is not a candidate for BENJI/DCCV - appreciate cardiology and EP recs - cont eliquis - unsure if he has been compliant on eliquis, so will need to rule out LV thrombus - has been fluid resuscitated PULM # active pulmonary tuberculosis - recently diagnosed at [facility] - on ripe therapy. Using rifabutin - may need to replace inh for moxi due to shortage - has health department rn assigned Peg Lozoya phone number [phone] - appreciate ID recs RENAL avoid nephrotoxic meds strict is and os # hypomagnesemia - likely 2/2 diarrhea and anorexia - replete as tolerated - has received multiple bags of magnesium - nephro was consulted - 24-hour magnesium to see if there is renal wasting: pending GI # gastroenteritis # intractable nausea and vomiting - was on anti emetics, clear liquid diet - now on soft diet, advance as tolerated - poor appetite ID # tuberculosis - on ripe and b6 - ID following - will get sputum cx F: Soft A: prn S: none T: eliquis [id number] U: none G: MDSS S: 5L NC B: prn I: PIV's D: RIPE ID following for TB medication RIPE with Rifabutin. On 4L NC. . Dispo Home with home health PT and home oxygen Consultants: cardiology, hospitalist, infectious disease at 1234 RPT #:[id number] END OF REPORT [facility] 2022-10-09 15:18:00 [facility] Hospitalist Progress Note REPORT#:[id number] REPORT STATUS: Signed DATE:10/09/22 TIME: 1517 PATIENT: SEYMOUR SNOW UNIT #: [id number] ROOM/BED: [address] : [address] AGE: 72 SEX: M ATTEND: Zander Gaston MD ADM AUTHOR: Zander Gaston MD * ALL edits or amendments must be made on the electronic/computer document * Subjective Chief complaint: Cough, SOB HPI: pt looks better Eating meals more Review of Systems All systems rev neg: except as noted Objective General VS/I O: Vital Signs: Date Time Temp Pulse Resp B/P B/P Pulse O2 O2 Flow FiO2 Mean Ox Delivery Rate 10/09 1230 79 131/79 96.3 95 Nasal 3 cannula 10/09 1224 70 113/78 89.8 94 10/09 1201 66 114/63 79.8 94 Nasal 3 cannula 10/09 1120 Nasal 3 cannula 10/09 1033 97.9 67 15 111/67 81.6 95 10/09 0758 97.9 59 15 113/71 84.8 93 10/09 0746 Nasal 3 cannula 10/09 0346 97.7 62 16 125/72 89.9 91 10/09 0155 97.7 57 18 125/67 86.6 91 10/09 0100 Nasal 3 cannula 10/09 0000 58 28 120/67 87 10/08 2200 60 27 110/65 84 94 10/08 2111 95 Nasal 3 cannula 10/08 2000 3 10/09 1999 98.0 61 35 117/66 78 96 10/08 1700 59 30 109/64 81 95 10/08 1600 70 33 130/70 93 98 10/08 1550 98.0 24 hour I O ending at 0700: 10/09 0700 10/08 1900 Intake Total 360 Output Total 900 Balance -540 Intake, Oral 360 Output, Urine 900 Patient 107.1 kg Weight PATIENT WEIGHT: Weight (lb): 236 Weight (oz): 1.84 Weight (kg): 107.100 Medications: Active Meds + DC'd Last 24 Hrs Magnesium Oxide (MAG-OX ) 400 MG TID PO (CKD) Acetaminophen (TYLENOL REGULAR) 650 MG Q6H PRN PRN PO Magnesium Oxide (MAG-OX ) 400 MG BID PO (DC) Pyrazinamide (PYRAZINAMIDE) 2,000 MG DAILY PO Potassium Chloride (K-DUR) 20 MEQ DAILY PO Megestrol Acetate (MEGESTROL 400MG/10ML) 400 MG DAILY PO Magnesium (MAGNESIUM SULFATE 1GM) 100 ML ASDIR PRN IV Magnesium Sulfate (MAGNESIUM SULFATE 2GM) 50 ML ASDIR PRN IV Magnesium Sulfate (MAGNESIUM SULFATE 4GM) 100 ML ASDIR PRN IV Digoxin (LANOXIN) 0.125 MG DAILY PO Famotidine (PEPCID) 20 MG DAILY PO Metoprolol Tartrate (LOPRESSOR) 25 MG Q8HR PO Metoprolol Tartrate (LOPRESSOR) 2.5 MG Q4H PRN PRN IV Albuterol/Ipratropium (DUONEB 3MG-0.5MG/3 ML) 3 ML RTQ6H INH Budesonide (PULMICORT RESPULES) 0.25 MG RTBID INH Non-Formulary Medication (NON-FORMULARY) RIFABUTIN 300 MG PO DAILY DAILY PO Ethambutol HCl (MYAMBUTOL) 1,600 MG DAILY PO Isoniazid (ISONIAZID,INH) 300 MG DAILY PO Promethazine HCl (PHENERGAN) 12.5 MG BID PO Loperamide HCl (IMODIUM) 2 MG BID PRN PRN PO Pyridoxine HCl (VITAMIN B-6) 50 MG DAILY PO Dextrose/Water (DEXTROSE 50% SYR) 25 ML ASDIR PRN IV (CKD) Glucagon (GLUCAGON) 1 MG ASDIR PRN IM Insulin Human Lispro (HumaLOG) MODERATE DOSE SCALE ASDIR SUBQ Hydralazine HCl (APRESOLINE) 10 MG Q6H PRN PRN IV Nitroglycerin (NITROQUICK BOTTLE) 0.4 MG Q5M PRN PRN SL Ondansetron HCl (ZOFRAN 4 MG/2 ML INJ) 4 MG Q4H PRN PRN IV Apixaban (ELIQUIS) 5 MG BID PO Physical Exam General appearance: alert, oriented Cardiovascular: normal heart sounds, regular rate rhythm Respiratory: clear to auscultation, symmetric expansion, no distress Abdomen: non-tender, normal bowel sounds, soft, no distention Extremities: moves all, no edema Musculoskeletal: normal inspection Neuro/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: CNII-XII intact, no motor deficits Results Findings/Data: Laboratory Tests 10/09 10/09 10/09 10/09 10/08 1032 0550 0347 0151 2105 Chemistry Sodium (137 - 145 mmol/L) 135 L Potassium (3.4 - 5.0 mmol/L) 4.1 Chloride (98 - 107 mmol/L) 105 Carbon Dioxide (22 - 30 mmol/L) 23 Anion Gap 11 BUN (9 - 20 mg/dL) 9 Creatinine (0.7 - 1.3 mg/dL) < 0.5 L Glomerular Filtr Rate (mL/min) 107 Glucose (74 - 106 mg/dL) 130 H POC Glucose (74 - 106 MG/DL) 210 H 134 H 121 H 228 H Calcium (8.4 - 10.2 mg/dL) 9.3 Magnesium (1.6 - 2.3 mg/dL) 1.3 L Total Bilirubin (0.2 - 1.3 mg/dL) 1.0 Conjugated Bilirubin (0 - 0.3 mg/dL) 0 Unconjugated Bilirubin (0 - 1.1 0.8 mg/dL) AST (15 - 46 U/L) 63 H ALT (0 - 49 U/L) 75 H Total Alk Phosphatase (38 - 126 U/L) 142 H Total Protein (6.3 - 8.2 g/dL) 7.2 Albumin (3.5 - 5.0 g/dL) 3.3 L Specimen Hemolysis (0 - 100 23 Index/DL) 10/08 1550 Chemistry POC Glucose (74 - 106 MG/DL) 164 H Laboratory Tests 10/09 0550 Hematology WBC (5.0 - 12.0 x10 3/uL) 8.2 RBC (4.70 - 6.10 x10 6/uL) 4.02 L Hgb (14.0 - 18.0 g/dL) 12.3 L Hct (37.0 - 49.0 %) 36.3 L MCV (80 - 94 fL) 90 MCH (27 - 31 pg) 30.6 MCHC (33 - 37 g/dL) 33.9 RDW (11.5 - 15.5 %) 13.3 Plt Count (130 - 400 x10 3/uL) 264 MPV (9.4 - 16.4 fL) 9.0 L Neut % (Auto) (43 - 65 %) 61.2 Lymph % (Auto) (20.5 - 45.5 %) 21.7 [place] % (Auto) (5.5 - 11.7 %) 10.4 Eos % (Auto) (0.9 - 2.9 %) 5.3 H Baso % (Auto) (0.2 - 1.0 %) 0.9 Neut # (Auto) (2.2 - 4.8 x10 3/uL) 4.99 H Lymph # (Auto) (1.3 - 2.9 x10 3/uL) 1.77 [place] # (Auto) (0.3 - 0.8 x10 3/uL) 0.85 H Eos # (Auto) (0.0 - 0.2 x10 3/uL) 0.43 H Baso # (Auto) (0.0 - 0.1 x10 3/uL) 0.07 Immature Gran % (0.0 - 2.0 %) 0.5 Nucleated RBC % (0 - 1.0 %) 0.0 Diagnosis, Assessment Plan Consultants: cardiology, hospitalist, infectious disease Free Text DxA P Notes Free text DxA P notes: A/P: # Active Pulmonary tuberculosis with acute hypoxic respiratory failure - Patient was recently diagnosed with pulmonary tuberculosis on 4 agent therapy at [facility]. - Health Dept RN assigned: Peg Poolo [phone] -- needs DOT order for pt to obtain medications, monthly LFTs, etc -- CM consulted - Chest x-ray obtained here does show cavitary lesion - Pt started on TB meds 5 days prior to admission via [facility] - I.D consulted, restarted RIPE tx - CXR today shows no new changes - Home O2 will be set up # Paroxysmal A-fib/flutter w/ RVR - CHADSVASC 3 - PMHx of A-fib on eliquis/lopressor -- resumed home eliquis for AC and lopressor for rate ctl - on admisssion pt was in NSR - TSH WNL - likely 2/2 persistent hypomagnesemia - RVR episodes: -- 09/30/22: responded to lopressor 5mg IV q5min x2 doses and 1L IVFR bolus -- 10/01/22: Aflutter 2:1, tried lopressor 5mg IV x1 dose, BP decreased, followed by amio 150mg IV bolus; considered diltiazem, however SBP <90mmHg - cardiology consulted, cont IVFR, increased lopressor dose frequency, avoid amio due to rifampin ENA343 inhibition, digoxin trial w/ loading dose - 2D ECHO shows normal LV fxn # Hypomagnesemia - likely 2/2 recent diarrhea - repleted IV earlier - cont to monitor and replete - Nephrology consulted - started on Mag oxide 400 mg TID # Normocytic anemia - cont to monitor # Recent Gastroenteritis, resolved - Patient presented with reported nausea, vomiting, diarrhea ongoing for approximately 5 days with some associated abdominal pain. 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 DOT treatment will be arranged by infectious disease with some medication adjustment as mentioned above. he has a wheelchair at home per son We will arrange home O2 for him Plan for d/c in the AM Risk of complications and/or Morbidity or Mortality of Patient Management- Moderate risk,.. at 1528 RPT #:[id number] END OF REPORT [facility] 2022-10-09 07:34:00 [facility] Nephrology Progress Note REPORT#:[id number] REPORT STATUS: Signed DATE:10/09/22 TIME: 733 PATIENT: SEYMOUR SNOW UNIT #: [id number] ROOM/BED: [address] : [address] AGE: 72 SEX: M ATTEND: Zander Gaston MD ADM AUTHOR: Jono Pagan DO R1 * ALL edits or amendments must be made on the electronic/computer document * Jono Pagan R1 10/09/22 0734: Subjective HPI: Patient rsting in bed, on 3L o2. Reports no episodes of diarrhea overnight. Objective General VS/I O: Vital Signs: Date Time Temp Pulse Resp B/P B/P Pulse O2 O2 Flow FiO2 Mean Ox Delivery Rate 10/09 1230 79 131/79 96.3 95 Nasal 3 cannula 10/09 1224 70 113/78 89.8 94 10/09 1201 66 114/63 79.8 94 Nasal 3 cannula 10/09 1033 97.9 67 15 111/67 81.6 95 10/09 0758 97.9 59 15 113/71 84.8 93 10/09 0746 Nasal 3 cannula 10/09 0346 97.7 62 16 125/72 89.9 91 10/09 0155 97.7 57 18 125/67 86.6 91 10/09 0100 Nasal 3 cannula 10/09 0000 58 28 120/67 87 10/08 2200 60 27 110/65 84 94 10/08 2111 95 Nasal 3 cannula 10/08 2000 3 10/09 1999 98.0 61 35 117/66 78 96 10/08 1700 59 30 109/64 81 95 10/08 1600 70 33 130/70 93 98 10/08 1550 98.0 10/08 1501 86 38 110/58 79 95 10/08 1400 92 32 125/70 93 95 10/08 1300 82 29 127/67 91 94 10/08 1253 70 32 122/75 93 96 10/08 1245 99 27 99/61 75 91 24 hour I O ending at 0700: 10/09 0700 10/08 1900 Intake Total 360 Output Total 900 Balance -540 Intake, Oral 360 Output, Urine 900 Patient 107.1 kg Weight PATIENT WEIGHT: Weight (lb): 236 Weight (oz): 1.84 Weight (kg): 107.100 Medications Active Meds + DC'd Last 24 Hrs Magnesium Oxide (MAG-OX ) 400 MG TID PO (UNVr) Acetaminophen (TYLENOL REGULAR) 650 MG Q6H PRN PRN PO Magnesium Oxide (MAG-OX ) 400 MG BID PO (DCr) Pyrazinamide (PYRAZINAMIDE) 2,000 MG DAILY PO Potassium Chloride (K-DUR) 20 MEQ DAILY PO Megestrol Acetate (MEGESTROL 400MG/10ML) 400 MG DAILY PO Magnesium (MAGNESIUM SULFATE 1GM) 100 ML ASDIR PRN IV Magnesium Sulfate (MAGNESIUM SULFATE 2GM) 50 ML ASDIR PRN IV Magnesium Sulfate (MAGNESIUM SULFATE 4GM) 100 ML ASDIR PRN IV Digoxin (LANOXIN) 0.125 MG DAILY PO Famotidine (PEPCID) 20 MG DAILY PO Metoprolol Tartrate (LOPRESSOR) 25 MG Q8HR PO Metoprolol Tartrate (LOPRESSOR) 2.5 MG Q4H PRN PRN IV Albuterol/Ipratropium (DUONEB 3MG-0.5MG/3 ML) 3 ML RTQ6H INH Budesonide (PULMICORT RESPULES) 0.25 MG RTBID INH Non-Formulary Medication (NON-FORMULARY) RIFABUTIN 300 MG PO DAILY DAILY PO Ethambutol HCl (MYAMBUTOL) 1,600 MG DAILY PO Isoniazid (ISONIAZID,INH) 300 MG DAILY PO Promethazine HCl (PHENERGAN) 12.5 MG BID PO Loperamide HCl (IMODIUM) 2 MG BID PRN PRN PO Pyridoxine HCl (VITAMIN B-6) 50 MG DAILY PO Dextrose/Water (DEXTROSE 50% SYR) 25 ML ASDIR PRN IV (CKD) Glucagon (GLUCAGON) 1 MG ASDIR PRN IM Insulin Human Lispro (HumaLOG) MODERATE DOSE SCALE ASDIR SUBQ Hydralazine HCl (APRESOLINE) 10 MG Q6H PRN PRN IV Nitroglycerin (NITROQUICK BOTTLE) 0.4 MG Q5M PRN PRN SL Ondansetron HCl (ZOFRAN 4 MG/2 ML INJ) 4 MG Q4H PRN PRN IV Apixaban (ELIQUIS) 5 MG BID PO Physical Exam General appearance: respiratory support (nasal oxygen), sleeping comfortably, no acute distress Head/eyes: atraumatic, PERRL ENT: normal nose, no uvular shift/swelling Neck: no JVD, no lymphadenopathy, no masses or swelling Cardiovascular: no murmur, no rub Respiratory: symmetric expansion, no distress Abdomen: no pulsatile mass, no rebound Extremities: non-tender, no swelling Musculoskeletal: normal inspection, no tenderness Neuro/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: alert, oriented X 3 Skin: dry, intact Psychiatry: normal mood, normal judgment/insight Results Findings/Data: Laboratory Tests 10/09 10/09 10/09 10/09 10/08 1032 0550 0347 0151 2105 Chemistry Sodium (137 - 145 mmol/L) 135 L Potassium (3.4 - 5.0 mmol/L) 4.1 Chloride (98 - 107 mmol/L) 105 Carbon Dioxide (22 - 30 mmol/L) 23 Anion Gap 11 BUN (9 - 20 mg/dL) 9 Creatinine (0.7 - 1.3 mg/dL) < 0.5 L Glomerular Filtr Rate (mL/min) 107 Glucose (74 - 106 mg/dL) 130 H POC Glucose (74 - 106 MG/DL) 210 H 134 H 121 H 228 H Calcium (8.4 - 10.2 mg/dL) 9.3 Magnesium (1.6 - 2.3 mg/dL) 1.3 L Total Bilirubin (0.2 - 1.3 mg/dL) 1.0 Conjugated Bilirubin (0 - 0.3 mg/dL) 0 Unconjugated Bilirubin (0 - 1.1 mg/dL) 0.8 AST (15 - 46 U/L) 63 H ALT (0 - 49 U/L) 75 H Total Alk Phosphatase (38 - 126 U/L) 142 H Total Protein (6.3 - 8.2 g/dL) 7.2 Albumin (3.5 - 5.0 g/dL) 3.3 L Specimen Hemolysis (0 - 100 Index/DL) 23 10/08 1550 Chemistry POC Glucose (74 - 106 MG/DL) 164 H Laboratory Tests 10/09 0550 Hematology WBC (5.0 - 12.0 x10 3/uL) 8.2 RBC (4.70 - 6.10 x10 6/uL) 4.02 L Hgb (14.0 - 18.0 g/dL) 12.3 L Hct (37.0 - 49.0 %) 36.3 L MCV (80 - 94 fL) 90 MCH (27 - 31 pg) 30.6 MCHC (33 - 37 g/dL) 33.9 RDW (11.5 - 15.5 %) 13.3 Plt Count (130 - 400 x10 3/uL) 264 MPV (9.4 - 16.4 fL) 9.0 L Neut % (Auto) (43 - 65 %) 61.2 Lymph % (Auto) (20.5 - 45.5 %) 21.7 [place] % (Auto) (5.5 - 11.7 %) 10.4 Eos % (Auto) (0.9 - 2.9 %) 5.3 H Baso % (Auto) (0.2 - 1.0 %) 0.9 Neut # (Auto) (2.2 - 4.8 x10 3/uL) 4.99 H Lymph # (Auto) (1.3 - 2.9 x10 3/uL) 1.77 [place] # (Auto) (0.3 - 0.8 x10 3/uL) 0.85 H Eos # (Auto) (0.0 - 0.2 x10 3/uL) 0.43 H Baso # (Auto) (0.0 - 0.1 x10 3/uL) 0.07 Immature Gran % (0.0 - 2.0 %) 0.5 Nucleated RBC % (0 - 1.0 %) 0.0 Results: labs reviewed, vital signs reviewed, current med profile rev'd Diagnosis, Assessment Plan Free Text A P: Laboratory Tests 10/06 10/05 10/04 10/04 10/04 0016 1125 2317 1040 0159 Chemistry Sodium (137 - 145 mmol/L) 135 L 139 137 Potassium (3.4 - 5.0 mmol/L) 4.2 3.3 L 3.6 3.8 3.3 L Chloride (98 - 107 mmol/L) 102 107 103 Carbon Dioxide (22 - 30 mmol/L) 30 30 31 H BUN (9 - 20 mg/dL) 6 L 9 9 Creatinine (0.7 - 1.3 mg/dL) < 0.5 L < 0.5 L 0.5 L Glucose (74 - 106 mg/dL) 134 H 111 H 108 H Impression and plan: 1. Hypomagnesemia Patient has history of hypomagnesemia in the past Difficult to do fractional excretion of magnesium as our labs does not urine random magnesium We will order a 24-hour magnesium to see if there is renal wasting: pending Also I reviewed the medication and patient is not on any PPI Increase p.o. magnesium replacement, Magnesium trends are noted Order 24-hour urine magnesium with creatinine for fractional excretion of magnesium evaluation 2. Anorexia This patient regarding some of the low magnesium We will start low-dose of Megace 3. Diarrhea Patient is on multiple medication for tuberculosis Advised primary team to discuss with ID to see if any of them can commonly cause diarrhea and then can be changed 4. Atrial flutter Keep potassium above 4 Reviewed labs We will start low-dose of potassium k trend better October 09, 2022 -No additional episodes of diarrhea -Will increase Oral Magnesium to 400mg TID -Urine Mag 24-hours being collected -Will need to followup outpatient with nephrology for ongoing hypomagnesemia d/w attending Autumn Hollins 10/16/22 4931: Attestations Physician Attestation Agree w/findings plan: Patient was seen and examined by me personally and independently during round and supervision of resident physician. Available data, labs, current medications and clincal documetation was also independently reviewed, while also reviewed on rounds with resident physician. Assessment and plan was discused with resident physician in detail for formualation of nephrology plan of care. Pedro Carbajal MD Attending Physician Nephrology at 1249 at 0827 RPT #:[id number] END OF REPORT [facility] 2022-10-08 19:44:00 [id number] [facility] [address] [facility] [place] [place] [address] PATIENT NAME: SEYMOUR SNOW ADMIT DATE: 09/27/22 ACCOUNT NO: [id number] ROOM NO: C.ICU06 AGE: 72 REPORT TYPE: 360 - QUERY RESPONSE DOCUMENT SEX: M ADMITTING PHYSICIAN:Zander Gaston MD ATTENDING PHYSICIAN:Zander Gaston MD Provider Query QUERY TEXT: Clarification Diagnostic Test 360MD Query related questions should be directed to: [facility] Coding Query Helpline Please clarify the condition or diagnosis for the clinical / diagnostic findings noted within the clinical indicators. (Hyponatremia, abnormal lab findings, Electrolyte imbalance, unable to determine or other more appropriate diagnosis) The patient's Clinical Indicators include: SODIUM (mmol/L) 135L 135L 137 136L 135L 136L 138 - Laboratory Results LR 1,000 mL 14:50 3 ML Intravenous VAD - MAR NS 1,000 mL 21:14 1 MLS Intravenous ARMRT - MAR Options provided: -- Respond - Create new note now -- Dismiss - Not applicable / Not valid -- Dismiss - Clinically unable to determine / Unknown -- Assign to another provider QUERY RESPONSE: Not significant Query created by: KATIE LINDSAY on 10/03/2022 9:52 PM at 1944 PATIENT NAME: SEYMOUR SNOW [facility] 2022-10-08 14:27:00 [facility] Hospitalist Progress Note REPORT#:[id number] REPORT STATUS: Signed DATE:10/08/22 TIME: 142 PATIENT: SEYMOUR SNOW UNIT #: [id number] ROOM/BED: [address] : 46 AGE: 72 SEX: M ATTEND: Zander Gaston MD ADM AUTHOR: Zander Gaston MD * ALL edits or amendments must be made on the electronic/computer document * Subjective Chief complaint: Cough, SOB HPI: less SOB today Review of Systems All systems rev neg: except as noted Objective General VS/I O: Vital Signs: Date Time Temp Pulse Resp B/P B/P Pulse O2 O2 Flow FiO2 Mean Ox Delivery Rate 10/08 1200 97.9 10/08 1200 71 34 123/61 87 90 10/08 1100 69 31 109/67 83 93 10/08 1000 66 29 120/65 84 96 10/08 0901 60 29 124/68 90 94 10/08 0845 96 Nasal 3 32 cannula 10/08 0801 75 31 145/76 105 10/08 0800 97.9 10/08 0800 Nasal 3 cannula 10/08 0601 60 27 125/59 85 96 10/08 0513 61 24 118/69 88 10/08 0500 62 122/70 90 10/08 0400 98.3 29 Nasal 3 cannula 10/08 0400 62 29 114/65 83 10/08 0300 62 28 129/75 96 92 10/08 0201 62 27 116/70 88 94 10/08 0001 57 19 144/67 94 95 10/08 0000 97.9 26 96 Nasal 3 cannula 10/07 2300 57 29 121/71 90 97 10/07 2201 61 27 119/63 84 95 10/07 2119 62 25 137/68 97 100 10/07 2101 58 23 132/63 90 98 10/07 2101 98 Nasal 4 cannula 10/08 1999 Nasal 4 44 cannula 10/08 1999 98.4 22 Nasal 4 cannula 10/08 1999 61 27 109/62 80 10/07 1900 62 10/07 1900 29 107/62 81 100 10/07 1753 61 29 94 10/07 1700 61 26 106/58 75 95 10/07 1600 98.2 10/07 1600 68 28 105/59 78 95 10/07 1500 77 30 107/62 79 91 24 hour I O ending at 0700: 10/08 0700 10/07 1900 Intake Total 100.00 Output Total 950 750 Balance -850.00 -750 Intake, IV 100.00 Number 1 Bowel Movements Output, Urine 950 750 PATIENT WEIGHT: Weight (lb): 237 Weight (oz): 7.01 Weight (kg): 107.700 Medications: Active Meds + DC'd Last 24 Hrs Acetaminophen (TYLENOL REGULAR) 650 MG Q6H PRN PRN PO Magnesium Oxide (MAG-OX ) 400 MG BID PO Pyrazinamide (PYRAZINAMIDE) 2,000 MG DAILY PO Magnesium Oxide (MAG-OX ) 200 MG DAILY PO (DC) Potassium Chloride (K-DUR) 20 MEQ DAILY PO Megestrol Acetate (MEGESTROL 400MG/10ML) 400 MG DAILY PO Magnesium (MAGNESIUM SULFATE 1GM) 100 ML ASDIR PRN IV Magnesium Sulfate (MAGNESIUM SULFATE 2GM) 50 ML ASDIR PRN IV Magnesium Sulfate (MAGNESIUM SULFATE 4GM) 100 ML ASDIR PRN IV Digoxin (LANOXIN) 0.125 MG DAILY PO Famotidine (PEPCID) 20 MG DAILY PO Metoprolol Tartrate (LOPRESSOR) 25 MG Q8HR PO Metoprolol Tartrate (LOPRESSOR) 2.5 MG Q4H PRN PRN IV Albuterol/Ipratropium (DUONEB 3MG-0.5MG/3 ML) 3 ML RTQ6H INH Budesonide (PULMICORT RESPULES) 0.25 MG RTBID INH Non-Formulary Medication (NON-FORMULARY) RIFABUTIN 300 MG PO DAILY DAILY PO Ethambutol HCl (MYAMBUTOL) 1,600 MG DAILY PO Isoniazid (ISONIAZID,INH) 300 MG DAILY PO Pyrazinamide (PYRAZINAMIDE) 1,500 MG DAILY PO (DC) Promethazine HCl (PHENERGAN) 12.5 MG BID PO Loperamide HCl (IMODIUM) 2 MG BID PRN PRN PO Pyridoxine HCl (VITAMIN B-6) 50 MG DAILY PO Dextrose/Water (DEXTROSE 50% SYR) 25 ML ASDIR PRN IV (CKD) Glucagon (GLUCAGON) 1 MG ASDIR PRN IM Insulin Human Lispro (HumaLOG) MODERATE DOSE SCALE ASDIR SUBQ Hydralazine HCl (APRESOLINE) 10 MG Q6H PRN PRN IV Nitroglycerin (NITROQUICK BOTTLE) 0.4 MG Q5M PRN PRN SL Ondansetron HCl (ZOFRAN 4 MG/2 ML INJ) 4 MG Q4H PRN PRN IV Apixaban (ELIQUIS) 5 MG BID PO Physical Exam General appearance: alert, oriented Cardiovascular: normal heart sounds, regular rate rhythm Respiratory: clear to auscultation, symmetric expansion, no distress Abdomen: non-tender, normal bowel sounds, soft, no distention Extremities: moves all, no edema Musculoskeletal: normal inspection Neuro/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: alert, oriented X 3, normal speech Psychiatry: normal affect, normal judgment/insight, normal mood Results Findings/Data: Laboratory Tests 10/08 10/08 10/08 10/08 10/08 1154 0946 0742 0131 0115 Chemistry Sodium (137 - 145 mmol/L) 137 141 Potassium (3.4 - 5.0 mmol/L) 4.0 3.8 Chloride (98 - 107 mmol/L) 101 104 Carbon Dioxide (22 - 30 mmol/L) 32 H 30 Anion Gap 7 10 BUN (9 - 20 mg/dL) 10 10 Creatinine (0.7 - 1.3 mg/dL) < 0.5 L 0.5 L Glomerular Filtr Rate (mL/min) 107 107 Glucose (74 - 106 mg/dL) 180 H 124 H POC Glucose (74 - 106 MG/DL) 176 H 108 H 118 H Calcium (8.4 - 10.2 mg/dL) 9.0 8.6 Magnesium (1.6 - 2.3 mg/dL) 2.4 H 1.1 L Specimen Hemolysis (0 - 100 < 15 < 15 Index/DL) 10/076 Chemistry POC Glucose (74 - 106 MG/DL) 135 H Laboratory Tests 10/08 0131 Hematology WBC (5.0 - 12.0 x10 3/uL) 5.9 RBC (4.70 - 6.10 x10 6/uL) 3.97 L Hgb (14.0 - 18.0 g/dL) 12.1 L Hct (37.0 - 49.0 %) 35.6 L MCV (80 - 94 fL) 90 MCH (27 - 31 pg) 30.5 MCHC (33 - 37 g/dL) 34.0 RDW (11.5 - 15.5 %) 13.6 Plt Count (130 - 400 x10 3/uL) 241 MPV (9.4 - 16.4 fL) 9.1 L Neut % (Auto) (43 - 65 %) 58.8 Lymph % (Auto) (20.5 - 45.5 %) 21.7 [place] % (Auto) (5.5 - 11.7 %) 10.5 Eos % (Auto) (0.9 - 2.9 %) 7.5 H Baso % (Auto) (0.2 - 1.0 %) 1.0 Neut # (Auto) (2.2 - 4.8 x10 3/uL) 3.47 Lymph # (Auto) (1.3 - 2.9 x10 3/uL) 1.28 L [place] # (Auto) (0.3 - 0.8 x10 3/uL) 0.62 Eos # (Auto) (0.0 - 0.2 x10 3/uL) 0.44 H Baso # (Auto) (0.0 - 0.1 x10 3/uL) 0.06 Immature Gran % (0.0 - 2.0 %) 0.5 Nucleated RBC % (0 - 1.0 %) 0.0 Diagnosis, Assessment Plan Consultants: cardiology, hospitalist, infectious disease Free Text DxA P Notes Free text DxA P notes: Patient is a 72-year-old male with past medical history of hypertension, diabetes, CAD, A-fib, recently diagnosed TB on treatment who presented to the ED with complaints of nausea, vomiting, diarrhea for the past 5 days is being admitted for irretractable nausea, vomiting, diarrhea likely secondary to gastroenteritis. # Active Pulmonary tuberculosis - Patient was recently diagnosed with pulmonary tuberculosis on 4 agent therapy at [facility]. - Health Dept RN assigned: Peg Poolo [phone] -- needs DOT order for pt to obtain medications, monthly LFTs, etc -- CM consulted - Chest x-ray obtained here does show cavitary lesion - Pt started on TB meds 5 days prior to admission via [facility] - I.D consulted, restarted RIPE tx # Paroxysmal A-fib/flutter w/ RVR - CHADSVASC 3 - PMHx of A-fib on eliquis/lopressor -- resumed home eliquis for AC and lopressor for rate ctl - on admisssion pt was in NSR - TSH WNL - likely 2/2 persistent hypomagnesemia - RVR episodes: -- 09/30/22: responded to lopressor 5mg IV q5min x2 doses and 1L IVFR bolus -- 10/01/22: Aflutter 2:1, tried lopressor 5mg IV x1 dose, BP decreased, followed by amio 150mg IV bolus; considered diltiazem, however SBP <90mmHg - cardiology consulted, cont IVFR, increased lopressor dose frequency, avoid amio due to rifampin [id number] inhibition, digoxin trial w/ loading dose - 2D ECHO shows normal LV fxn # Hypomagnesemia - likely 2/2 recent diarrhea - repleted IV earlier - cont to monitor and replete - Nephrology consulted, deferred consult; consider reconsulting # Normocytic anemia - cont to monitor # Recent Gastroenteritis, resolved - Patient presented with reported nausea, vomiting, diarrhea ongoing for approximately 5 days with some associated abdominal pain. 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 We will request PT OT evaluation prior to discharge. DOT treatment will be arranged by infectious disease with some medication adjustment as mentioned above. 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 at 1439 RPT #:[id number] END OF REPORT [facility] 2022-10-08 10:47:00 ([facility] Nephrology Progress Note REPORT#:[id number] REPORT STATUS: Signed DATE:10/08/22 TIME: 1047 PATIENT: SEYMOUR SNOW UNIT #: [id number] ROOM[address]BED: [address] : [address] AGE: 72 SEX: M ATTEND: Zander Gaston MD ADM AUTHOR: Autumn Carbajal MD * ALL edits or amendments must be made on the electronic/computer document * Subjective Comments: No acute overnight issues reported, seen in isolation room Objective General VS/I O: Vital Signs: Date Time Temp Pulse Resp B/P B/P Pulse O2 O2 Flow FiO2 Mean Ox Delivery Rate 10/08 0845 96 Nasal 3 32 cannula 10/08 0800 36.6 10/08 0601 60 27 125/59 85 96 10/08 0513 61 24 118/69 88 10/08 0500 62 122/70 90 10/08 0400 36.8 29 Nasal 3 cannula 10/08 0400 62 29 114/65 83 10/08 0300 62 28 129/75 96 92 10/08 0201 62 27 116/70 88 94 10/08 0001 57 19 144/67 94 95 10/08 0000 36.6 26 96 Nasal 3 cannula 10/07 2300 57 29 121/71 90 97 10/07 2201 61 27 119/63 84 95 10/07 2119 62 25 137/68 97 100 10/07 2101 58 23 132/63 90 98 10/07 2101 98 Nasal 4 cannula 10/08 1999 Nasal 4 44 cannula 10/08 1999 36.9 22 Nasal 4 cannula 10/08 1999 61 27 109/62 80 10/07 1900 62 10/07 1900 29 107/62 81 100 10/07 1753 61 29 94 10/07 1700 61 26 106/58 75 95 10/07 1600 36.8 10/07 1600 68 28 105/59 78 95 10/07 1500 77 30 107/62 79 91 10/07 1400 100 28 95/71 79 94 10/07 1300 131 30 122/68 91 91 10/07 1200 36.8 10/07 1200 73 24 120/68 88 90 10/07 1100 141 26 150/124 133 95 24 hour I O ending at 0700: 10/08 0700 10/07 1900 Intake Total 100.00 Output Total 950 750 Balance -850.00 -750 Intake, IV 100.00 Number 1 Bowel Movements Output, Urine 950 750 PATIENT WEIGHT: Weight (lb): 237 Weight (oz): 7.01 Weight (kg): 107.700 Physical Exam General appearance: alert, awake, oriented Head/eyes: PERRL ENT: normal nose, no uvular shift/swelling Neck: no JVD, no lymphadenopathy, no masses or swelling Cardiovascular: no murmur, no rub Respiratory: symmetric expansion, no distress Abdomen: no pulsatile mass, no rebound Extremities: no swelling Diagnosis, Assessment Plan Free Text A P: Laboratory Tests 10/06 10/05 10/04 10/04 10/04 0016 1125 2317 1040 0159 Chemistry Sodium (137 - 145 mmol/L) 135 L 139 137 Potassium (3.4 - 5.0 mmol/L) 4.2 3.3 L 3.6 3.8 3.3 L Chloride (98 - 107 mmol/L) 102 107 103 Carbon Dioxide (22 - 30 mmol/L) 30 30 31 H BUN (9 - 20 mg/dL) 6 L 9 9 Creatinine (0.7 - 1.3 mg/dL) < 0.5 L < 0.5 L 0.5 L Glucose (74 - 106 mg/dL) 134 H 111 H 108 H Impression and plan: 1. Hypomagnesemia Patient has history of hypomagnesemia in the past Difficult to do fractional excretion of magnesium as our labs does not urine random magnesium We will order a 24-hour magnesium to see if there is renal wasting: pending Also I reviewed the medication and patient is not on any PPI Increase p.o. magnesium replacement, Magnesium trends are noted Order 24-hour urine magnesium with creatinine for fractional excretion of magnesium evaluation 2. Anorexia This patient regarding some of the low magnesium We will start low-dose of Megace 3. Diarrhea Patient is on multiple medication for tuberculosis Advised primary team to discuss with ID to see if any of them can commonly cause diarrhea and then can be changed 4. Atrial flutter Keep potassium above 4 Reviewed labs We will start low-dose of potassium k trend better Consultants: cardiology, hospitalist, infectious disease at 1047 RPT #:[id number] END OF REPORT [facility] 2022-10-08 07:22:00 ([facility]) Critical Care Progress Note REPORT#:[id number] REPORT STATUS: Signed DATE:10/08/22 TIME: 721 PATIENT: SEYMOUR SNOW UNIT #: [id number] ROOM[address]BED: [address] : [address] AGE: 72 SEX: M ATTEND: Zander Gaston MD ADM AUTHOR: Prashanth Luna MD R1 * ALL edits or amendments must be made on the electronic/computer document * Prashanth Luna 10/08/22721: Subjective Chief complaint: palpitations HPI: afib rate controlled feeling fine on 3 L oxygen NC Objective General VS/I O Last Documented: Result Date Time Temp 97.9 10/08 1200 Pulse Ox 90 10/08 1200 B/P 123/61 10/08 1200 B/P Mean 87 10/08 1200 Pulse 71 10/08 1200 Resp 34 10/08 1200 FiO2 32 10/08 0845 O2 Delivery Nasal cannula 10/08 0845 O2 Flow Rate 3 10/08 0845 24 hour I O ending at 0700: 10/08 0700 10/07 1900 Intake Total 100.00 Output Total 950 750 Balance -850.00 -750 Intake, IV 100.00 Number 1 Bowel Movements Output, Urine 950 750 PATIENT WEIGHT: Weight (lb): 237 Weight (oz): 7.01 Weight (kg): 107.700 Medications: Active Meds + DC'd Last 24 Hrs Magnesium Oxide (MAG-OX ) 400 MG BID PO Pyrazinamide (PYRAZINAMIDE) 2,000 MG DAILY PO Magnesium Oxide (MAG-OX ) 200 MG DAILY PO (DC) Potassium Chloride (K-DUR) 20 MEQ DAILY PO Megestrol Acetate (MEGESTROL 400MG/10ML) 400 MG DAILY PO Magnesium (MAGNESIUM SULFATE 1GM) 100 ML ASDIR PRN IV Magnesium Sulfate (MAGNESIUM SULFATE 2GM) 50 ML ASDIR PRN IV Magnesium Sulfate (MAGNESIUM SULFATE 4GM) 100 ML ASDIR PRN IV Digoxin (LANOXIN) 0.125 MG DAILY PO Famotidine (PEPCID) 20 MG DAILY PO Metoprolol Tartrate (LOPRESSOR) 25 MG Q8HR PO Metoprolol Tartrate (LOPRESSOR) 2.5 MG Q4H PRN PRN IV Albuterol/Ipratropium (DUONEB 3MG-0.5MG/3 ML) 3 ML RTQ6H INH Budesonide (PULMICORT RESPULES) 0.25 MG RTBID INH Non-Formulary Medication (NON-FORMULARY) RIFABUTIN 300 MG PO DAILY DAILY PO Ethambutol HCl (MYAMBUTOL) 1,600 MG DAILY PO Isoniazid (ISONIAZID,INH) 300 MG DAILY PO Pyrazinamide (PYRAZINAMIDE) 1,500 MG DAILY PO (DC) Promethazine HCl (PHENERGAN) 12.5 MG BID PO Loperamide HCl (IMODIUM) 2 MG BID PRN PRN PO Pyridoxine HCl (VITAMIN B-6) 50 MG DAILY PO Dextrose/Water (DEXTROSE 50% SYR) 25 ML ASDIR PRN IV (CKD) Glucagon (GLUCAGON) 1 MG ASDIR PRN IM Insulin Human Lispro (HumaLOG) MODERATE DOSE SCALE ASDIR SUBQ Hydralazine HCl (APRESOLINE) 10 MG Q6H PRN PRN IV Nitroglycerin (NITROQUICK BOTTLE) 0.4 MG Q5M PRN PRN SL Ondansetron HCl (ZOFRAN 4 MG/2 ML INJ) 4 MG Q4H PRN PRN IV Apixaban (ELIQUIS) 5 MG BID PO Dietitian nutrition assessment The data set between the solid lines has been imported from the dietitian's assessment. BMI Calculated: 30.5 Nutrition related diagnosis: Obese Nutrition diagnosis details: BMI 30-39.9 Nutrition problem: Increased nutrient needs Nutrition etiology: INFECTION, PANCREATITIS Nutrition signs and symptoms: ADMITTED WITH ACTIVE TB, NAUSE, A, VOMITING, DIARREHEA Nutrition prescription: -RECOMMEND CCD5 DIET TOLERATED -WILL SEND GLUCERNA TID TO HELP MEET KCAL/PRO NEEDS -RD TO F/U PER FNS PROTOCOL Dietitian name: Tisha Hutchison RDN, SIMON Assessment completed: 10/03/22 Physical Exam General appearance: alert, awake, oriented Head/eyes: atraumatic, clear cornea Neck: full range of motion, non-tender Cardiovascular: irregular rhythm, tachycardia, no thrill, hypotension Respiratory: aerating well, clear to auscultation, symmetric expansion, no distress Abdomen: soft, non-tender, normal bowel sounds Extremities: moves all, normal capillary refill Musculoskeletal normal inspection, painless range of motion Neuro/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: alert, oriented X 3 Skin: dry, intact Results Findings/data: Laboratory Tests 10/08 10/08 10/08 10/08 10/08 1154 0946 0742 0131 0115 Chemistry Sodium (137 - 145 mmol/L) 137 141 Potassium (3.4 - 5.0 mmol/L) 4.0 3.8 Chloride (98 - 107 mmol/L) 101 104 Carbon Dioxide (22 - 30 mmol/L) 32 H 30 Anion Gap 7 10 BUN (9 - 20 mg/dL) 10 10 Creatinine (0.7 - 1.3 mg/dL) < 0.5 L 0.5 L Glomerular Filtr Rate (mL/min) 107 107 Glucose (74 - 106 mg/dL) 180 H 124 H POC Glucose (74 - 106 MG/DL) 176 H 108 H 118 H Calcium (8.4 - 10.2 mg/dL) 9.0 8.6 Magnesium (1.6 - 2.3 mg/dL) 2.4 H 1.1 L Specimen Hemolysis (0 - 100 Index/DL) < 15 < 15 10/07 10/07 2116 1316 Chemistry POC Glucose (74 - 106 MG/DL) 135 H 155 H Laboratory Tests 10/08 0131 Hematology WBC (5.0 - 12.0 x10 3/uL) 5.9 RBC (4.70 - 6.10 x10 6/uL) 3.97 L Hgb (14.0 - 18.0 g/dL) 12.1 L Hct (37.0 - 49.0 %) 35.6 L MCV (80 - 94 fL) 90 MCH (27 - 31 pg) 30.5 MCHC (33 - 37 g/dL) 34.0 RDW (11.5 - 15.5 %) 13.6 Plt Count (130 - 400 x10 3/uL) 241 MPV (9.4 - 16.4 fL) 9.1 L Neut % (Auto) (43 - 65 %) 58.8 Lymph % (Auto) (20.5 - 45.5 %) 21.7 [place] % (Auto) (5.5 - 11.7 %) 10.5 Eos % (Auto) (0.9 - 2.9 %) 7.5 H Baso % (Auto) (0.2 - 1.0 %) 1.0 Neut # (Auto) (2.2 - 4.8 x10 3/uL) 3.47 Lymph # (Auto) (1.3 - 2.9 x10 3/uL) 1.28 L [place] # (Auto) (0.3 - 0.8 x10 3/uL) 0.62 Eos # (Auto) (0.0 - 0.2 x10 3/uL) 0.44 H Baso # (Auto) (0.0 - 0.1 x10 3/uL) 0.06 Immature Gran % (0.0 - 2.0 %) 0.5 Nucleated RBC % (0 - 1.0 %) 0.0 Laboratory Tests 10/08/22 0946: [Embedded Image Not Available] Creatinine < 0.5 L 10/08/22 0131: [Embedded Image Not Available] Radiology data Recent Impressions: RADIOLOGY - XR CHEST 1 V 10/08 0937 Report Impression - Status: SIGNED Entered: 10/08/2022 1046 IMPRESSION: No significant change in the radiographic appearance of the chest since 10/02/2022. . Impression By: WesVRNEREIDA WILLIS Diagnosis, Assessment Plan Free text A P: Seymour Dickerson Sola is a 72 yo M w hx HTN, DM, CAD, afib on eliquis, and recent dx of pulmonary TB presenting with acute atrial flutter w rvr and hypotension alongside N/V/D. NEURO acute and oriented appears at baseline CV # atrial flutter w rvr # hypotension - echo pending - K > 4 Mag > 2 - cont tele monitoring - avoiding amio due to rifampin dosing - converted to SR initially - Patient reverted back to AFlutter with RVR. Will give IV digoxin 0.5 mg now per cardio recs - increase lopressor to 25 mg po q8h. - Due to active pulm TB, he is not a candidate for BENJI/DCCV - appreciate cardiology and EP recs - cont eliquis - unsure if he has been compliant on eliquis, so will need to rule out LV thrombus - has been fluid resuscitated PULM # active pulmonary tuberculosis - recently diagnosed at [facility] - on ripe therapy. Using rifabutin - may need to replace inh for moxi due to shortage - has health department rn assigned [facility] phone number [phone] - appreciate ID recs RENAL avoid nephrotoxic meds strict is and os # hypomagnesemia - likely 2/2 diarrhea and anorexia - replete as tolerated - has received multiple bags of magnesium - nephro was consulted - 24-hour magnesium to see if there is renal wasting: pending GI # gastroenteritis # intractable nausea and vomiting - was on anti emetics, clear liquid diet - now on soft diet, advance as tolerated - poor appetite ID # tuberculosis - on ripe and b6 - ID following - will get sputum cx F: Soft A: prn S: none T: eliquis [id number] U: none G: MDSS S: 5L NC B: prn I: PIV's D: RIPE ID following for TB medication RIPE with Rifabutin. On 4L NC. Downgraded pending bed availability. Dispo Home with home health PT and home oxygen Case discussed w Dr. Ruiz Consultants: cardiology, hospitalist, infectious disease Nishant Ruiz 10/08/22 1652: Attestations Attestation needed: teaching physician Teaching Physician Attestation F/U visit w/ resident: I saw the patient with the resident and . . . agree with the resident's findings and plan. stable doing well RIPE chest x ray stable wean o2 at 1404 at 3820 RPT #:[id number] END OF REPORT [facility] 2022-10-07 12:20:00 [facility] Hospitalist Discharge Summary REPORT#:[id number] REPORT STATUS: Signed DATE:10/07/22 TIME: 1220 PATIENT: SEYMOUR SNOW UNIT #: [id number] [facility] AGE: 72 SEX: M ATTEND: Zander Gaston MD ADM AUTHOR: Marlyn Zee MD * ALL edits or amendments must be made on the electronic/computer document * General Information Discharge date: 10/07/22 Discharge diagnosis: Active tuberculosis Chronic atrial flutter Respiratory failure with hypoxia secondary from pulmonary tuberculosis Acute on chronic hypoxic respiratory failure Physical deconditioning Hospital course: 72 male with extensive history of multiple medical comorbidities presented with Active tuberculosis Chronic atrial flutter Respiratory failure with hypoxia secondary from pulmonary tuberculosis Acute on chronic hypoxic respiratory failure Physical deconditioning He was seen by multiple groundwater consultant, put it in ICU for close monitoring in negative pressure room His medication been adjusted by director case, infectious disease doctor and critical care team. Patient initially required high flow oxygen which gradually subsided to 5 to 6 L. Currently doing well, needs to be seen by DOT treatment for active tuberculosis. He also has multiple family members with active tuberculosis Patient will require to follow-up with director case outpatient for echocardiogram after tuberculosis improved Case management is aware of overall conditions and trying to arrange his home care and ED OT treatment Consultants: cardiology, hospitalist, infectious disease Free Text DxA P Notes Free text DxA P notes: Patient is a 72-year-old male with past medical history of hypertension, diabetes, CAD, A-fib, recently diagnosed TB on treatment who presented to the ED with complaints of nausea, vomiting, diarrhea for the past 5 days is being admitted for irretractable nausea, vomiting, diarrhea likely secondary to gastroenteritis. # Active Pulmonary tuberculosis - Patient was recently diagnosed with pulmonary tuberculosis on 4 agent therapy at [facility]. - Health Dept RN assigned: Peg Lozoya [phone] -- needs DOT order for pt to obtain medications, monthly LFTs, etc -- CM consulted - Chest x-ray obtained here does show cavitary lesion - Pt started on TB meds 5 days prior to admission via [facility] - I.D consulted, restarted RIPE tx # Paroxysmal A-fib/flutter w/ RVR - CHADSVASC 3 - PMHx of A-fib on eliquis/lopressor -- resumed home eliquis for AC and lopressor for rate ctl - on admisssion pt was in NSR - TSH WNL - likely 2/2 persistent hypomagnesemia - RVR episodes: -- 09/30/22: responded to lopressor 5mg IV q5min x2 doses and 1L IVFR bolus -- 10/01/22: Aflutter 2:1, tried lopressor 5mg IV x1 dose, BP decreased, followed by amio 150mg IV bolus; considered diltiazem, however SBP <90mmHg - cardiology consulted, cont IVFR, increased lopressor dose frequency, avoid amio due to rifampin [id number] inhibition, digoxin trial w/ loading dose, obtain TTE, consider BENJI/CV - critical care consulted, accepted upgrade - monitor on tele # Hypomagnesemia - likely 2/2 recent diarrhea - pt repeatedly has low mag of 1.0 until 10/01 (1.7), however it downtrended in the afternoon to 1.5 - cont to monitor and replete - Nephrology consulted, deferred consult; consider reconsulting # Normocytic anemia - cont to monitor # Recent Gastroenteritis, resolved - Patient presented with reported nausea, vomiting, diarrhea ongoing for approximately 5 days with some associated abdominal pain. 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 Pending-hemodynamically stable. Patient currently likely will need home oxygen He lives with his . We will request PT OT evaluation prior to discharge. DOT treatment will be arranged by infectious disease with some medication adjustment as mentioned above. Patient is planning-patient can be discharged home with home physical therapy New DOT treatment by [facility] of [facility] Home O2 Possible discharge with home physical therapy and home oxygen Med Rec Med Rec Discharge meds: Stop taking the following medications: metFORMIN (GLUCOPHAGE) 500 MG TAB 500 MILLIGRAM ORAL WITH BREAKFAST AND DINNER. Qty = 60 METOPROLOL TARTRATE (LOPRESSOR) 25 MG TAB 12.5 MILLIGRAM ORAL TWICE DAILY. ETHAMBUTOL (MYAMBUTOL) 400 MG TAB 1,200 MILLIGRAM ORAL DAILY. PYRAZINAMIDE (PYRAZINAMIDE) 500 MG TAB 1,500 MILLIGRAM ORAL DAILY. rifAMPin (RIFADIN) 300 MG CAP 600 MILLIGRAM ORAL DAILY. ISONIAZID (ISONIAZID) 300 MG TAB 300 MILLIGRAM ORAL DAILY. Continue taking these medications: ACETAMINOPHEN (TYLENOL) 325 MG TAB 650 MILLIGRAM ORAL EVERY 8 HOURS. as needed for pain Days = 30 BISACODYL EC (DULCOLAX EC) 5 MG TAB.DR 10 MILLIGRAM ORAL DAILY NEEDED. as needed for CONSTIPATION Days = 30 MEGESTROL (MEGACE) 40 MG TAB 40 MILLIGRAM ORAL DAILY. Qty = 30 traMADol (ULTRAM) 50 MG TAB 50 MILLIGRAM ORAL EVERY 6 HOURS NEEDED. as needed for PAIN Qty = 28 FUROSEMIDE (LASIX) 20 MG TAB 20 MILLIGRAM ORAL EVERY MORNING. Qty = 30 FAMOTIDINE (PEPCID) 20 MG TAB 20 MILLIGRAM ORAL TWICE DAILY. Qty = 60 APIXABAN (ELIQUIS) 5 MG TAB 5 MILLIGRAM ORAL TWICE DAILY. Comments: TAKE 1 TABLET BY MOUTH TWICE DAILY; #180 - SIG Obtained From [facility] glipiZIDE (GLUCOTROL) 5 MG TAB 5 MILLIGRAM ORAL BEFORE MEALS. Comments: TAKE 1 TABLET BY MOUTH ONCE DAILY 30 MINUTES BEFORE MEAL(S); #90 - SIG Obtained From [facility] ATORVASTATIN (LIPITOR) 40 MG TAB 40 MILLIGRAM ORAL DAILY. Comments: TAKE 1 TABLET BY MOUTH ONCE DAILY; #90 - SIG Obtained From [facility] PYRIDOXINE (VITAMIN B-6) 50 MG TAB 50 MILLIGRAM ORAL DAILY. metFORMIN (GLUCOPHAGE) 850 MG TAB 850 MILLIGRAM ORAL TWICE DAILY WITH MEALS. LOSARTAN (COZAAR) 50 MG TAB 50 MILLIGRAM ORAL DAILY. Start taking the following new medications: PROMETHAZINE (PHENERGAN) 12.5 MG TAB 12.5 MILLIGRAM ORAL TWICE DAILY. Qty = 60 No Refills ETHAMBUTOL (MYAMBUTOL) 400 MG TAB 1,600 MILLIGRAM ORAL DAILY. Qty = 30 No Refills ISONIAZID (ISONIAZID) 300 MG TAB 300 MILLIGRAM ORAL DAILY. Qty = 30 No Refills PYRAZINAMIDE (PYRAZINAMIDE) 500 MG TAB 1,500 MILLIGRAM ORAL DAILY. Qty = 30 No Refills METOPROLOL TARTRATE (LOPRESSOR) 25 MG TAB 25 MILLIGRAM ORAL EVERY 8 HOURS. Qty = 90 No Refills NITROGLYCERIN (NITROSTAT) 0.4 MG TAB.SL 0.4 MILLIGRAM SUBLINGUAL EVERY 5 MINUTES NEEDED. as needed for CHEST PAIN Qty = 100 No Refills BUDESONIDE (PULMICORT) 0.5 MG/2 ML NEB 0.25 MILLIGRAM INHALATION RT - TWICE DAILY. Qty = 2 No Refills Objective VS/I O Last Documented: Result Date Time O2 Delivery Nasal cannula 10/07 832 O2 Flow Rate 4 10/07 0833 B/P 101/62 10/07 0601 B/P Mean 75 10/07 0601 Pulse 60 10/07 0601 Resp 32 10/07 0601 Pulse Ox 98 10/07 0500 Temp 97.9 10/07 0400 FiO2 44 10/07 1999 24 hour I O ending at 0700: 10/07 0700 10/06 1900 Intake Total 400.00 200 Output Total 1800 750 Balance -1400.00 -550 Intake, IV 100.00 Intake, Oral 300 Intake, Oral 200 Supplement Number 1 Bowel Movements Output, Urine 1800 750 Patient 237 lb Weight Weight Bed scale Measurement Method General appearance: alert, awake, oriented Head/Eyes: atraumatic, normocephalic ENT: dry mucosal membrane Cardiovascular: normal heart sounds, regular rate rhythm Respiratory: clear to auscultation, symmetric expansion, no distress Abdomen: non-tender, normal bowel sounds, soft, no distention Extremities: moves all, no edema Musculoskeletal: normal inspection Neuro/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: alert, oriented X 3, normal speech Psychiatry: normal affect, normal judgment/insight, normal mood Results Findings/Data: Laboratory Tests: 10/07 10/07 10/07 10/06 10/06 0751 0027 0020 2129 1324 Chemistry Sodium (137 - 145 mmol/L) 135 L Potassium (3.4 - 5.0 mmol/L) 3.8 Chloride (98 - 107 mmol/L) 104 Carbon Dioxide (22 - 30 mmol/L) 32 H Anion Gap 3 BUN (9 - 20 mg/dL) 6 L Creatinine (0.7 - 1.3 mg/dL) < 0.5 L Glomerular Filtr Rate (mL/min) 107 Glucose (74 - 106 mg/dL) 150 H POC Glucose (74 - 106 MG/DL) 111 H 126 H 139 H 194 H Calcium (8.4 - 10.2 mg/dL) 7.6 L Magnesium (1.6 - 2.3 mg/dL) 1.8 Total Bilirubin (0.2 - 1.3 mg/dL) 0.8 Conjugated Bilirubin (0 - 0.3 mg/dL) 0 Unconjugated Bilirubin (0 - 1.1 0.6 mg/dL) AST (15 - 46 U/L) 166 H ALT (0 - 49 U/L) 81 H Total Alk Phosphatase (38 - 126 U/L) 114 Total Protein (6.3 - 8.2 g/dL) 6.0 L Albumin (3.5 - 5.0 g/dL) 2.6 L Specimen Hemolysis (0 - 100 48 Index/DL) Hematology WBC (5.0 - 12.0 x10 3/uL) 5.3 RBC (4.70 - 6.10 x10 6/uL) 3.29 L Hgb (14.0 - 18.0 g/dL) 10.2 L Hct (37.0 - 49.0 %) 29.5 L MCV (80 - 94 fL) 90 MCH (27 - 31 pg) 31.0 MCHC (33 - 37 g/dL) 34.6 RDW (11.5 - 15.5 %) 13.2 Plt Count (130 - 400 x10 3/uL) 197 MPV (9.4 - 16.4 fL) 9.3 L Neut % (Auto) (43 - 65 %) 67.3 H Lymph % (Auto) (20.5 - 45.5 %) 16.2 L [place] % (Auto) (5.5 - 11.7 %) 8.6 Eos % (Auto) (0.9 - 2.9 %) 6.5 H Baso % (Auto) (0.2 - 1.0 %) 1.0 Neut # (Auto) (2.2 - 4.8 x10 3/uL) 3.55 Lymph # (Auto) (1.3 - 2.9 x10 3/uL) 0.85 L [place] # (Auto) (0.3 - 0.8 x10 3/uL) 0.45 Eos # (Auto) (0.0 - 0.2 x10 3/uL) 0.34 H Baso # (Auto) (0.0 - 0.1 x10 3/uL) 0.05 Immature Gran % (0.0 - 2.0 %) 0.4 Nucleated RBC % (0 - 1.0 %) 0.0 Discharge Instructions PCP PCP follow-up: PCP: No Primary or Family Physician Follow-up labs,proc, tx: [facility] Pulmonary service Primary CARE provider Cardiology service Discharge to: Home Health wPlan of Care Additional Discharge Routines: PCP Follow-Up Diet: Cardiac Notify PCP of these S/S: Increased redness at 1453 RPT #:[id number] END OF REPORT [facility] 2022-10-07 12:13:00 ([facility] Hospitalist Progress Note REPORT#:[id number] REPORT STATUS: Signed DATE:10/07/22 TIME: 1213 PATIENT: SEYMOUR SNOW UNIT #: [id number] ROOM/BED: [address] : [address] AGE: 72 SEX: M ATTEND: Marlyn Zee MD ADM AUTHOR: Marlyn Zee MD * ALL edits or amendments must be made on the electronic/computer document * Subjective Chief complaint: Cough, SOB HPI: Still mild to moderately orthopneic at rest Objective General Medications: Active Meds + DC'd Last 24 Hrs Magnesium Oxide (MAG-OX ) 200 MG DAILY PO Potassium Chloride (K-DUR) 20 MEQ DAILY PO Megestrol Acetate (MEGESTROL 400MG/10ML) 400 MG DAILY PO Magnesium (MAGNESIUM SULFATE 1GM) 100 ML ASDIR PRN IV Magnesium Sulfate (MAGNESIUM SULFATE 2GM) 50 ML ASDIR PRN IV Magnesium Sulfate (MAGNESIUM SULFATE 4GM) 100 ML ASDIR PRN IV Digoxin (LANOXIN) 0.125 MG DAILY PO Famotidine (PEPCID) 20 MG DAILY PO Metoprolol Tartrate (LOPRESSOR) 25 MG Q8HR PO Mupirocin (BACTROBAN 2% 22 GM OINTMENT) 1 APPLIC BID NASAL (DC) Metoprolol Tartrate (LOPRESSOR) 2.5 MG Q4H PRN PRN IV Perflutren Lipid Microsphere (DEFINITY) DIRECTED ONCE PRN IV (DC) Sodium Chloride (NACL 0.9% 10ML SYRINGE) DIRECTED ONCE PRN IV (DC) Sodium Chloride (SODIUM CHLORIDE FLUSH) 5 ML ONCE PRN IV (DC) Albuterol/Ipratropium (DUONEB 3MG-0.5MG/3 ML) 3 ML RTQ6H INH Budesonide (PULMICORT RESPULES) 0.25 MG RTBID INH Non-Formulary Medication (NON-FORMULARY) RIFABUTIN 300 MG PO DAILY DAILY PO Ethambutol HCl (MYAMBUTOL) 1,600 MG DAILY PO Isoniazid (ISONIAZID,INH) 300 MG DAILY PO Pyrazinamide (PYRAZINAMIDE) 1,500 MG DAILY PO Promethazine HCl (PHENERGAN) 12.5 MG BID PO Loperamide HCl (IMODIUM) 2 MG BID PRN PRN PO Thiamine HCl (THIAMINE ) 500 MG Q8HR IV (DC) Sodium Chloride (SODIUM CHLORIDE 0.9%) 250 ML Pyridoxine HCl (VITAMIN B-6) 50 MG DAILY PO Dextrose/Water (DEXTROSE 50% SYR) 25 ML ASDIR PRN IV (CKD) Glucagon (GLUCAGON) 1 MG ASDIR PRN IM Insulin Human Lispro (HumaLOG) MODERATE DOSE SCALE ASDIR SUBQ Hydralazine HCl (APRESOLINE) 10 MG Q6H PRN PRN IV Nitroglycerin (NITROQUICK BOTTLE) 0.4 MG Q5M PRN PRN SL Ondansetron HCl (ZOFRAN 4 MG/2 ML INJ) 4 MG Q4H PRN PRN IV Apixaban (ELIQUIS) 5 MG BID PO Dietitian nutrition assessment The data set between the solid lines has been imported from the dietitian's assessment. BMI Calculated: 30.5 Nutrition related diagnosis: Obese Nutrition diagnosis details: BMI 30-39.9 Nutrition problem: Increased nutrient needs Nutrition etiology: INFECTION, PANCREATITIS Nutrition signs and symptoms: ADMITTED WITH ACTIVE TB, NAUSE, A, VOMITING, DIARREHEA Nutrition prescription: -RECOMMEND CCD5 DIET TOLERATED -WILL SEND GLUCERNA TID TO HELP MEET KCAL/PRO NEEDS -RD TO F/U PER FNS PROTOCOL Dietitian name: Tisha Hutchison RDN, SIMON Assessment completed: 10/03/22 Physical Exam Head/Eyes: atraumatic, normocephalic ENT: dry mucosal membrane Cardiovascular: normal heart sounds, regular rate rhythm Respiratory: clear to auscultation, symmetric expansion, no distress Abdomen: non-tender, normal bowel sounds, soft, no distention Extremities: moves all, no edema Musculoskeletal: normal inspection Neuro/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: alert, oriented X 3, normal speech Psychiatry: normal affect, normal judgment/insight, normal mood Results Findings/Data: Laboratory Tests 10/07 10/07 10/07 10/06 10/06 0751 0027 0020 2129 1324 Chemistry Sodium (137 - 145 mmol/L) 135 L Potassium (3.4 - 5.0 mmol/L) 3.8 Chloride (98 - 107 mmol/L) 104 Carbon Dioxide (22 - 30 mmol/L) 32 H Anion Gap 3 BUN (9 - 20 mg/dL) 6 L Creatinine (0.7 - 1.3 mg/dL) < 0.5 L Glomerular Filtr Rate (mL/min) 107 Glucose (74 - 106 mg/dL) 150 H POC Glucose (74 - 106 MG/DL) 111 H 126 H 139 H 194 H Calcium (8.4 - 10.2 mg/dL) 7.6 L Magnesium (1.6 - 2.3 mg/dL) 1.8 Total Bilirubin (0.2 - 1.3 mg/dL) 0.8 Conjugated Bilirubin (0 - 0.3 mg/dL) 0 Unconjugated Bilirubin (0 - 1.1 0.6 mg/dL) AST (15 - 46 U/L) 166 H ALT (0 - 49 U/L) 81 H Total Alk Phosphatase (38 - 126 U/L) 114 Total Protein (6.3 - 8.2 g/dL) 6.0 L Albumin (3.5 - 5.0 g/dL) 2.6 L Specimen Hemolysis (0 - 100 48 Index/DL) Laboratory Tests 10/07 0027 Hematology WBC (5.0 - 12.0 x10 3/uL) 5.3 RBC (4.70 - 6.10 x10 6/uL) 3.29 L Hgb (14.0 - 18.0 g/dL) 10.2 L Hct (37.0 - 49.0 %) 29.5 L MCV (80 - 94 fL) 90 MCH (27 - 31 pg) 31.0 MCHC (33 - 37 g/dL) 34.6 RDW (11.5 - 15.5 %) 13.2 Plt Count (130 - 400 x10 3/uL) 197 MPV (9.4 - 16.4 fL) 9.3 L Neut % (Auto) (43 - 65 %) 67.3 H Lymph % (Auto) (20.5 - 45.5 %) 16.2 L [place] % (Auto) (5.5 - 11.7 %) 8.6 Eos % (Auto) (0.9 - 2.9 %) 6.5 H Baso % (Auto) (0.2 - 1.0 %) 1.0 Neut # (Auto) (2.2 - 4.8 x10 3/uL) 3.55 Lymph # (Auto) (1.3 - 2.9 x10 3/uL) 0.85 L [place] # (Auto) (0.3 - 0.8 x10 3/uL) 0.45 Eos # (Auto) (0.0 - 0.2 x10 3/uL) 0.34 H Baso # (Auto) (0.0 - 0.1 x10 3/uL) 0.05 Immature Gran % (0.0 - 2.0 %) 0.4 Nucleated RBC % (0 - 1.0 %) 0.0 Diagnosis, Assessment Plan Free Text DxA P Notes Free text DxA P notes: Patient is a 72-year-old male with past medical history of hypertension, diabetes, CAD, A-fib, recently diagnosed TB on treatment who presented to the ED with complaints of nausea, vomiting, diarrhea for the past 5 days is being admitted for irretractable nausea, vomiting, diarrhea likely secondary to gastroenteritis. # Active Pulmonary tuberculosis - Patient was recently diagnosed with pulmonary tuberculosis on 4 agent therapy at [facility]. - Health Dept RN assigned: [facility] [phone] -- needs DOT order for pt to obtain medications, monthly LFTs, etc -- CM consulted - Chest x-ray obtained here does show cavitary lesion - Pt started on TB meds 5 days prior to admission via [facility] - I.D consulted, restarted RIPE tx # Paroxysmal A-fib/flutter w/ RVR - CHADSVASC 3 - PMHx of A-fib on eliquis/lopressor -- resumed home eliquis for AC and lopressor for rate ctl - on admisssion pt was in NSR - TSH WNL - likely 2/2 persistent hypomagnesemia - RVR episodes: -- 09/30/22: responded to lopressor 5mg IV q5min x2 doses and 1L IVFR bolus -- 10/01/22: Aflutter 2:1, tried lopressor 5mg IV x1 dose, BP decreased, followed by amio 150mg IV bolus; considered diltiazem, however SBP <90mmHg - cardiology consulted, cont IVFR, increased lopressor dose frequency, avoid amio due to rifampin [id number] inhibition, digoxin trial w/ loading dose, obtain TTE, consider BENJI/CV - critical care consulted, accepted upgrade - monitor on tele # Hypomagnesemia - likely 2/2 recent diarrhea - pt repeatedly has low mag of 1.0 until 10/01 (1.7), however it downtrended in the afternoon to 1.5 - cont to monitor and replete - Nephrology consulted, deferred consult; consider reconsulting # Normocytic anemia - cont to monitor # Recent Gastroenteritis, resolved - Patient presented with reported nausea, vomiting, diarrhea ongoing for approximately 5 days with some associated abdominal pain. 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 Pending-hemodynamically stable. Patient currently likely will need home oxygen He lives with his . We will request PT OT evaluation prior to discharge. DOT treatment will be arranged by infectious disease with some medication adjustment as mentioned above. Patient is planning-patient can be discharged home with home physical therapy New DOT treatment by [facility] Home O2 Possible discharge with home physical therapy and home oxygen at 1213 RPT #:[id number] END OF REPORT [facility] 2022-10-07 09:43:00 [facility] Nephrology Progress Note REPORT#:[id number] REPORT STATUS: Signed DATE:10/07/22 TIME: 09 PATIENT: SEYMOUR SNOW UNIT #: [id number] ROOM/BED: [address] : [address] AGE: 72 SEX: M ATTEND: Marlyn Zee MD ADM AUTHOR: Autumn Carbajal MD * ALL edits or amendments must be made on the electronic/computer document * Subjective Comments: no aucte isuses feeling okay seen in medical icu in isolation room Objective General VS/I O: Vital Signs: Date Time Temp Pulse Resp B/P B/P Pulse O2 O2 Flow FiO2 Mean Ox Delivery Rate 10/07 0833 Nasal 4 cannula 10/07 0601 60 32 101/62 75 10/07 0500 58 27 121/69 88 98 10/07 0400 58 139/59 85 92 10/07 0400 36.6 18 98 Nasal 4 cannula 10/07 0300 56 116/63 84 97 10/07 0200 56 101/67 80 95 10/07 0100 59 124/60 86 96 10/07 0000 56 98/54 73 100 10/07 0000 36.9 24 95 Nasal 4 cannula 10/06 2301 56 104/52 75 95 10/06 2200 62 125/68 92 95 10/06 2140 61 146/65 93 85 10/06 2100 66 115/87 98 95 10/06 2001 64 120/65 86 95 10/07 1999 Nasal 5 44 cannula 10/07 1999 36.9 22 95 Nasal cannula 10/06 1900 58 112/58 79 95 10/06 1800 58 97/59 72 97 10/06 1700 57 107/66 80 96 10/06 1601 64 113/63 82 98 10/06 1501 72 139/63 91 96 10/06 1400 78 115/59 80 96 10/06 1305 74 136/63 90 94 10/06 1200 72 29 109/63 82 97 10/06 1100 77 28 110/77 90 92 10/06 1000 73 120/66 88 95 24 hour I O ending at 0700: 10/07 0700 10/06 1900 Intake Total 400.00 200 Output Total 1800 750 Balance -1400.00 -550 Intake, IV 100.00 Intake, Oral 300 Intake, Oral 200 Supplement Number 1 Bowel Movements Output, Urine 1800 750 Patient 107.7 kg Weight Weight Bed scale Measurement Method PATIENT WEIGHT: Weight (lb): 237 Weight (oz): 7.01 Weight (kg): 107.700 Physical Exam General appearance: alert, awake, oriented Head/eyes: PERRL ENT: normal nose, no uvular shift/swelling Neck: no JVD, no lymphadenopathy, no masses or swelling Cardiovascular: no murmur, no rub Respiratory: symmetric expansion, no distress Abdomen: no pulsatile mass, no rebound Extremities: no swelling Diagnosis, Assessment Plan Free Text A P: Laboratory Tests 10/06 10/05 10/04 10/04 10/04 0016 1125 2317 1040 0159 Chemistry Sodium (137 - 145 mmol/L) 135 L 139 137 Potassium (3.4 - 5.0 mmol/L) 4.2 3.3 L 3.6 3.8 3.3 L Chloride (98 - 107 mmol/L) 102 107 103 Carbon Dioxide (22 - 30 mmol/L) 30 30 31 H BUN (9 - 20 mg/dL) 6 L 9 9 Creatinine (0.7 - 1.3 mg/dL) < 0.5 L < 0.5 L 0.5 L Glucose (74 - 106 mg/dL) 134 H 111 H 108 H Impression and plan: 1. Hypomagnesemia Patient has history of hypomagnesemia in the past Difficult to do fractional excretion of magnesium as our labs does not urine random magnesium We will order a 24-hour magnesium to see if there is renal wasting: pending Also I reviewed the medication and patient is not on any PPI We will start him on low-dose of magnesium 200 mg and see-- if the diarrhea worsens we will stop the magnesium continue same mag trends todayana diaz still has significant diarrhea which is likley alsocause of hypomagnesemia 2. Anorexia This patient regarding some of the low magnesium We will start low-dose of Megace 3. Diarrhea Patient is on multiple medication for tuberculosis Advised primary team to discuss with ID to see if any of them can commonly cause diarrhea and then can be changed 4. Atrial flutter Keep potassium above 4 Reviewed labs We will start low-dose of potassium k trend better at 0946 RPT #:[id number] END OF REPORT [facility] 2022-10-07 07:57:00 [facility]) Critical Care Progress Note REPORT#:[id number] REPORT STATUS: Signed DATE:10/07/22 TIME: 756 PATIENT: MYA SNOWNCIO UNIT #: [id number] [address] AGE: 72 SEX: M ATTEND: Marlyn Zee MD ADM AUTHOR: Billie Laguna MD R3 * ALL edits or amendments must be made on the electronic/computer document * Billie Laguna 10/07/22 0757: Subjective Chief complaint: palpitations HPI: afib rate controlled feeling fine on 4 L NC Objective General VS/I O Last Documented: Result Date Time B/P 101/62 10/07 06 B/P Mean 75 10/07 0601 Pulse 60 10/07 0601 Resp 32 10/07 0601 Pulse Ox 98 10/07 0500 O2 Delivery Nasal cannula 10/07 040 O2 Flow Rate 4 10/07 0400 Temp 36.6 10/07 0400 FiO2 44 10/07 1999 24 hour I O ending at 0700: 10/07 0700 10/06 1900 Intake Total 400.00 200 Output Total 1800 750 Balance -1400.00 -550 Intake, IV 100.00 Intake, Oral 300 Intake, Oral 200 Supplement Number 1 Bowel Movements Output, Urine 1800 750 Patient 107.7 kg Weight Weight Bed scale Measurement Method PATIENT WEIGHT: Weight (lb): 237 Weight (oz): 7.01 Weight (kg): 107.700 Medications: Active Meds + DC'd Last 24 Hrs Magnesium Oxide (MAG-OX ) 200 MG DAILY PO Potassium Chloride (K-DUR) 20 MEQ DAILY PO Megestrol Acetate (MEGESTROL 400MG/10ML) 400 MG DAILY PO Magnesium (MAGNESIUM SULFATE 1GM) 100 ML ASDIR PRN IV Magnesium Sulfate (MAGNESIUM SULFATE 2GM) 50 ML ASDIR PRN IV Magnesium Sulfate (MAGNESIUM SULFATE 4GM) 100 ML ASDIR PRN IV Digoxin (LANOXIN) 0.125 MG DAILY PO Famotidine (PEPCID) 20 MG DAILY PO Metoprolol Tartrate (LOPRESSOR) 25 MG Q8HR PO Mupirocin (BACTROBAN 2% 22 GM OINTMENT) 1 APPLIC BID NASAL (DC) Metoprolol Tartrate (LOPRESSOR) 2.5 MG Q4H PRN PRN IV Perflutren Lipid Microsphere (DEFINITY) DIRECTED ONCE PRN IV Sodium Chloride (NACL 0.9% 10ML SYRINGE) DIRECTED ONCE PRN IV Sodium Chloride (SODIUM CHLORIDE FLUSH) 5 ML ONCE PRN IV Albuterol/Ipratropium (DUONEB 3MG-0.5MG/3 ML) 3 ML RTQ6H INH Budesonide (PULMICORT RESPULES) 0.25 MG RTBID INH Non-Formulary Medication (NON-FORMULARY) RIFABUTIN 300 MG PO DAILY DAILY PO Ethambutol HCl (MYAMBUTOL) 1,600 MG DAILY PO Isoniazid (ISONIAZID,INH) 300 MG DAILY PO Pyrazinamide (PYRAZINAMIDE) 1,500 MG DAILY PO Promethazine HCl (PHENERGAN) 12.5 MG BID PO Loperamide HCl (IMODIUM) 2 MG BID PRN PRN PO Thiamine HCl (THIAMINE ) 500 MG Q8HR IV (DC) Sodium Chloride (SODIUM CHLORIDE 0.9%) 250 ML Pyridoxine HCl (VITAMIN B-6) 50 MG DAILY PO Dextrose/Water (DEXTROSE 50% SYR) 25 ML ASDIR PRN IV (CKD) Glucagon (GLUCAGON) 1 MG ASDIR PRN IM Insulin Human Lispro (HumaLOG) MODERATE DOSE SCALE ASDIR SUBQ Hydralazine HCl (APRESOLINE) 10 MG Q6H PRN PRN IV Nitroglycerin (NITROQUICK BOTTLE) 0.4 MG Q5M PRN PRN SL Ondansetron HCl (ZOFRAN 4 MG/2 ML INJ) 4 MG Q4H PRN PRN IV Apixaban (ELIQUIS) 5 MG BID PO Dietitian nutrition assessment The data set between the solid lines has been imported from the dietitian's assessment. BMI Calculated: 30.5 Nutrition related diagnosis: Obese Nutrition diagnosis details: BMI 30-39.9 Nutrition problem: Increased nutrient needs Nutrition etiology: INFECTION, PANCREATITIS Nutrition signs and symptoms: ADMITTED WITH ACTIVE TB, NAUSE, A, VOMITING, DIARREHEA Nutrition prescription: -RECOMMEND CCD5 DIET TOLERATED -WILL SEND GLUCERNA TID TO HELP MEET KCAL/PRO NEEDS -RD TO F/U PER FNS PROTOCOL Dietitian name: Tisha Hutchison RDN, SIMON Assessment completed: 10/03/22 Physical Exam General appearance: alert, awake, oriented Head/eyes: atraumatic, clear cornea Neck: full range of motion, non-tender Cardiovascular: irregular rhythm, tachycardia, no thrill, hypotension Respiratory: aerating well, clear to auscultation, symmetric expansion, no distress Abdomen: soft, non-tender, normal bowel sounds Extremities: moves all, normal capillary refill Musculoskeletal normal inspection, painless range of motion Neuro/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: alert, oriented X 3 Skin: dry, intact Results Findings/data: Laboratory Tests 10/07 10/07 10/06 10/06 10/06 0027 0020 2129 1324 1038 Chemistry Sodium (137 - 145 mmol/L) 135 L Potassium (3.4 - 5.0 mmol/L) 3.8 Chloride (98 - 107 mmol/L) 104 Carbon Dioxide (22 - 30 mmol/L) 32 H Anion Gap 3 BUN (9 - 20 mg/dL) 6 L Creatinine (0.7 - 1.3 mg/dL) < 0.5 L Glomerular Filtr Rate (mL/min) 107 Glucose (74 - 106 mg/dL) 150 H POC Glucose (74 - 106 MG/DL) 126 H 139 H 194 H Calcium (8.4 - 10.2 mg/dL) 7.6 L Magnesium (1.6 - 2.3 mg/dL) 1.8 1.4 L Total Bilirubin (0.2 - 1.3 mg/dL) 0.8 Conjugated Bilirubin (0 - 0.3 mg/dL) 0 Unconjugated Bilirubin (0 - 1.1 mg/dL) 0.6 AST (15 - 46 U/L) 166 H ALT (0 - 49 U/L) 81 H Total Alk Phosphatase (38 - 126 U/L) 114 Total Protein (6.3 - 8.2 g/dL) 6.0 L Albumin (3.5 - 5.0 g/dL) 2.6 L Specimen Hemolysis (0 - 100 Index/DL) 48 Laboratory Tests 10/07 002 Hematology WBC (5.0 - 12.0 x10 3/uL) 5.3 RBC (4.70 - 6.10 x10 6/uL) 3.29 L Hgb (14.0 - 18.0 g/dL) 10.2 L Hct (37.0 - 49.0 %) 29.5 L MCV (80 - 94 fL) 90 MCH (27 - 31 pg) 31.0 MCHC (33 - 37 g/dL) 34.6 RDW (11.5 - 15.5 %) 13.2 Plt Count (130 - 400 x10 3/uL) 197 MPV (9.4 - 16.4 fL) 9.3 L Neut % (Auto) (43 - 65 %) 67.3 H Lymph % (Auto) (20.5 - 45.5 %) 16.2 L [place] % (Auto) (5.5 - 11.7 %) 8.6 Eos % (Auto) (0.9 - 2.9 %) 6.5 H Baso % (Auto) (0.2 - 1.0 %) 1.0 Neut # (Auto) (2.2 - 4.8 x10 3/uL) 3.55 Lymph # (Auto) (1.3 - 2.9 x10 3/uL) 0.85 L [place] # (Auto) (0.3 - 0.8 x10 3/uL) 0.45 Eos # (Auto) (0.0 - 0.2 x10 3/uL) 0.34 H Baso # (Auto) (0.0 - 0.1 x10 3/uL) 0.05 Immature Gran % (0.0 - 2.0 %) 0.4 Nucleated RBC % (0 - 1.0 %) 0.0 Laboratory Tests 10/07/22 0027: [Embedded Image Not Available] Creatinine < 0.5 L Diagnosis, Assessment Plan Free text A P: Seymour Selby is a 72 yo M w hx HTN, DM, CAD, afib on eliquis, and recent dx of pulmonary TB presenting with acute atrial flutter w rvr and hypotension alongside N/V/D. NEURO acute and oriented appears at baseline CV # atrial flutter w rvr # hypotension - echo pending - K > 4 Mag > 2 - cont tele monitoring - avoiding amio due to rifampin dosing - converted to SR initially - Patient reverted back to AFlutter with RVR. Will give IV digoxin 0.5 mg now per cardio recs - increase lopressor to 25 mg po q8h. - Due to active pulm TB, he is not a candidate for BENJI/DCCV - appreciate cardiology and EP recs - cont eliquis - unsure if he has been compliant on eliquis, so will need to rule out LV thrombus - has been fluid resuscitated PULM # active pulmonary tuberculosis - recently diagnosed at [facility] - on ripe therapy. Using rifabutin - may need to replace inh for moxi due to shortage - [facility] rn assigned [facility] phone number [phone] - appreciate ID recs RENAL avoid nephrotoxic meds strict is and os # hypomagnesemia - likely 2/2 diarrhea and anorexia - replete as tolerated - has received multiple bags of magnesium - nephro was consulted - 24-hour magnesium to see if there is renal wasting: pending GI # gastroenteritis # intractable nausea and vomiting - was on anti emetics, clear liquid diet - now on soft diet, advance as tolerated - poor appetite ID # tuberculosis - on ripe and b6 - ID following - will get sputum cx F: Soft A: prn S: none T: eliquis [id number] U: none G: MDSS S: 5L NC B: prn I: PIV's D: RIPE ID following for TB medication RIPE with Rifabutin. On 4L NC. Downgraded pending bed availability. Dispo Home with home health PT and home oxygen Case discussed w Sachin Nance 10/07/22 183: Attestations Physician Attestation Agree w/findings plan: Agree with the findings and plan as documented by resident. at 1357 at 1832 RPT #:[id number] END OF REPORT [facility] 2022-10-06 21:24:00 [facility] Hospitalist Progress Note REPORT#:[id number] REPORT STATUS: Signed DATE:10/06/22 TIME: 2123 PATIENT: SEYMOUR SNOW UNIT #: [id number] [address] AGE: 72 SEX: M ATTEND: Marlyn Zee MD ADM AUTHOR: Marlyn Zee MD * ALL edits or amendments must be made on the electronic/computer document * Subjective Chief complaint: Cough, SOB HPI: Still mild to moderately orthopneic at rest Objective General Medications: Active Meds + DC'd Last 24 Hrs Magnesium Oxide (MAG-OX ) 200 MG DAILY PO Potassium Chloride (K-DUR) 20 MEQ DAILY PO Megestrol Acetate (MEGESTROL 400MG/10ML) 400 MG DAILY PO Magnesium (MAGNESIUM SULFATE 1GM) 100 ML ASDIR PRN IV Magnesium Sulfate (MAGNESIUM SULFATE 2GM) 50 ML ASDIR PRN IV Magnesium Sulfate (MAGNESIUM SULFATE 4GM) 100 ML ASDIR PRN IV Digoxin (LANOXIN) 0.125 MG DAILY PO Famotidine (PEPCID) 20 MG DAILY PO Metoprolol Tartrate (LOPRESSOR) 25 MG Q8HR PO Mupirocin (BACTROBAN 2% 22 GM OINTMENT) 1 APPLIC BID NASAL (DC) Metoprolol Tartrate (LOPRESSOR) 2.5 MG Q4H PRN PRN IV Perflutren Lipid Microsphere (DEFINITY) DIRECTED ONCE PRN IV Sodium Chloride (NACL 0.9% 10ML SYRINGE) DIRECTED ONCE PRN IV Sodium Chloride (SODIUM CHLORIDE FLUSH) 5 ML ONCE PRN IV Albuterol/Ipratropium (DUONEB 3MG-0.5MG/3 ML) 3 ML RTQ6H INH Budesonide (PULMICORT RESPULES) 0.25 MG RTBID INH Non-Formulary Medication (NON-FORMULARY) RIFABUTIN 300 MG PO DAILY DAILY PO Ethambutol HCl (MYAMBUTOL) 1,600 MG DAILY PO Isoniazid (ISONIAZID,INH) 300 MG DAILY PO Pyrazinamide (PYRAZINAMIDE) 1,500 MG DAILY PO Promethazine HCl (PHENERGAN) 12.5 MG BID PO Loperamide HCl (IMODIUM) 2 MG BID PRN PRN PO Thiamine HCl (THIAMINE ) 500 MG Q8HR IV (DC) Sodium Chloride (SODIUM CHLORIDE 0.9%) 250 ML Pyridoxine HCl (VITAMIN B-6) 50 MG DAILY PO Dextrose/Water (DEXTROSE 50% SYR) 25 ML ASDIR PRN IV (CKD) Glucagon (GLUCAGON) 1 MG ASDIR PRN IM Insulin Human Lispro (HumaLOG) MODERATE DOSE SCALE ASDIR SUBQ Hydralazine HCl (APRESOLINE) 10 MG Q6H PRN PRN IV Nitroglycerin (NITROQUICK BOTTLE) 0.4 MG Q5M PRN PRN SL Ondansetron HCl (ZOFRAN 4 MG/2 ML INJ) 4 MG Q4H PRN PRN IV Apixaban (ELIQUIS) 5 MG BID PO Dietitian nutrition assessment The data set between the solid lines has been imported from the dietitian's assessment. BMI Calculated: 30.5 Nutrition related diagnosis: Obese Nutrition diagnosis details: BMI 30-39.9 Nutrition problem: Increased nutrient needs Nutrition etiology: INFECTION, PANCREATITIS Nutrition signs and symptoms: ADMITTED WITH ACTIVE TB, NAUSE, A, VOMITING, DIARREHEA Nutrition prescription: -RECOMMEND CCD5 DIET TOLERATED -WILL SEND GLUCERNA TID TO HELP MEET KCAL/PRO NEEDS -RD TO F/U PER FNS PROTOCOL Dietitian name: Tisha Hutchison RDN, SIMON Assessment completed: 10/03/22 Physical Exam Head/Eyes: atraumatic, normocephalic ENT: dry mucosal membrane Cardiovascular: normal heart sounds, regular rate rhythm Respiratory: clear to auscultation, symmetric expansion, no distress Abdomen: non-tender, normal bowel sounds, soft, no distention Extremities: moves all, no edema Musculoskeletal: normal inspection Neuro/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: alert, oriented X 3, normal speech Psychiatry: normal affect, normal judgment/insight, normal mood Results Findings/Data: Laboratory Tests 10/06 042 Blood Gas Puncture Site L Brach ABG pH (7.35 - 7.45 pH units) 7.48 H ABG pCO2 (35 - 48 mmHg) 34.1 L ABG pO2 (83 - 108 mmHg) 156.1 H ABG PO2/FiO2 Ratio (mm/Hg) 446.00 ABG HCO3 (21 - 28 mmol/L) 25.1 ABG Total CO2 (22 - 29 mmol/L) 24.0 ABG O2 Sat Calc/Kaiser (94 - 98 %) 99.5 H ABG Base Excess (-2 - 3 mmol/L) 1.6 Nasim Test N/A Sodium (138 - 146 mmol/L) 132 L Potassium (3.5 - 4.5 mmol/L) 3.7 Chloride (98 - 108 MMOL/L) 103 Ionized Calcium (1.15 - 1.33 MMOL/L) 1.28 Respiration Rate (12 - 20 /MIN) 20 O2 Delivery Device Adult Vent Vent Mode PRVC FiO2 (%) 35 Instrument (Specimen Descript) Arterial Laboratory Tests 10/06 10/06 10/06 1038 0423 0016 Chemistry Sodium (137 - 145 mmol/L) 135 L Potassium (3.4 - 5.0 mmol/L) 4.2 Chloride (98 - 107 mmol/L) 102 Carbon Dioxide (22 - 30 mmol/L) 30 Anion Gap 7 BUN (9 - 20 mg/dL) 6 L Creatinine (0.7 - 1.3 mg/dL) < 0.5 L Glomerular Filtr Rate (mL/min) 107 Glucose (74 - 106 mg/dL) 134 H POC Glucose (74 - 100 mg/dL) 87 Calcium (8.4 - 10.2 mg/dL) 8.5 Magnesium (1.6 - 2.3 mg/dL) 1.4 L 1.3 L Specimen Hemolysis (0 - 100 Index/DL) 34 Laboratory Tests 10/06 0016 Hematology WBC (5.0 - 12.0 x10 3/uL) 5.3 RBC (4.70 - 6.10 x10 6/uL) 4.06 L Hgb (14.0 - 18.0 g/dL) 12.5 L Hct (37.0 - 49.0 %) 35.8 L MCV (80 - 94 fL) 88 MCH (27 - 31 pg) 30.8 MCHC (33 - 37 g/dL) 34.9 RDW (11.5 - 15.5 %) 13.2 Plt Count (130 - 400 x10 3/uL) 231 MPV (9.4 - 16.4 fL) 9.2 L Neut % (Auto) (43 - 65 %) 65.6 H Lymph % (Auto) (20.5 - 45.5 %) 18.6 L [place] % (Auto) (5.5 - 11.7 %) 8.3 Eos % (Auto) (0.9 - 2.9 %) 6.2 H Baso % (Auto) (0.2 - 1.0 %) 0.9 Neut # (Auto) (2.2 - 4.8 x10 3/uL) 3.49 Lymph # (Auto) (1.3 - 2.9 x10 3/uL) 0.99 L [place] # (Auto) (0.3 - 0.8 x10 3/uL) 0.44 Eos # (Auto) (0.0 - 0.2 x10 3/uL) 0.33 H Baso # (Auto) (0.0 - 0.1 x10 3/uL) 0.05 Immature Gran % (0.0 - 2.0 %) 0.4 Nucleated RBC % (0 - 1.0 %) 0.0 Diagnosis, Assessment Plan Free Text DxA P Notes Free text DxA P notes: Patient is a 72-year-old male with past medical history of hypertension, diabetes, CAD, A-fib, recently diagnosed TB on treatment who presented to the ED with complaints of nausea, vomiting, diarrhea for the past 5 days is being admitted for irretractable nausea, vomiting, diarrhea likely secondary to gastroenteritis. # Active Pulmonary tuberculosis - Patient was recently diagnosed with pulmonary tuberculosis on 4 agent therapy at [facility]. - Health Dept RN assigned: Peg Poolo [phone] -- needs DOT order for pt to obtain medications, monthly LFTs, etc -- CM consulted - Chest x-ray obtained here does show cavitary lesion - Pt started on TB meds 5 days prior to admission via [facility] - I.D consulted, restarted RIPE tx # Paroxysmal A-fib/flutter w/ RVR - CHADSVASC 3 - PMHx of A-fib on eliquis/lopressor -- resumed home eliquis for AC and lopressor for rate ctl - on admisssion pt was in NSR - TSH WNL - likely 2/2 persistent hypomagnesemia - RVR episodes: -- 09/30/22: responded to lopressor 5mg IV q5min x2 doses and 1L IVFR bolus -- 10/01/22: Aflutter 2:1, tried lopressor 5mg IV x1 dose, BP decreased, followed by amio 150mg IV bolus; considered diltiazem, however SBP <90mmHg - cardiology consulted, cont IVFR, increased lopressor dose frequency, avoid amio due to rifampin [id number] inhibition, digoxin trial w/ loading dose, obtain TTE, consider BENJI/CV - critical care consulted, accepted upgrade - monitor on tele # Hypomagnesemia - likely 2/2 recent diarrhea - pt repeatedly has low mag of 1.0 until 10/01 (1.7), however it downtrended in the afternoon to 1.5 - cont to monitor and replete - Nephrology consulted, deferred consult; consider reconsulting # Normocytic anemia - cont to monitor # Recent Gastroenteritis, resolved - Patient presented with reported nausea, vomiting, diarrhea ongoing for approximately 5 days with some associated abdominal pain. 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 Pending-hemodynamically stable. Patient currently likely will need home oxygen He lives with his . We will request PT OT evaluation prior to discharge. DOT treatment will be arranged by infectious disease with some medication adjustment as mentioned above. Patient is planning-patient can be discharged home with home physical therapy New DOT treatment by [facility] Home O2 at 2125 RPT #:[id number] END OF REPORT [facility] 2022-10-06 16:18:00 [facility] Nephrology Consultation Note REPORT#:[id number] REPORT STATUS: Signed DATE:10/06/22 TIME: 1618 PATIENT: SEYMOUR SNOW UNIT #: [id number] [address] AGE: 72 SEX: M ATTEND: Marlyn Zee MD ADM AUTHOR: Bryan Miller MD * ALL edits or amendments must be made on the electronic/computer document * History of Present Illness HPI: This is 72-year-old gentleman with previous history of diabetes mellitus hypertension, newly diagnosed DVT who is on treatment who got admitted to the hospital with vomiting and diarrhea few days ago. Patient is still continuing to have diarrhea. Renal has been consulted mainly for hypomagnesemia . In spite of multiple IV medication doses patient is still hypomagnesemic. He also had an episode of atrial flutter recently and that is why he is admitted to ICU Patient's son gave most of the history and he said he has history of hypomagnesemia in the past. He denies any use of Protonix or PPIs as an outpatient. Patient's son said that whenever he gets sick his magnesium goes down History - Adult longitudinal Past medical history: Reports: Diabetes mellitus, Hypertension. Additional surgical history: Neck surgery, 40 years ago Alcohol use: Denies EtOH use Drug use: Denies recreational drugs Smoking status for patients 13 years old or older: Never Smoker Other social history: Good social support Allergies: Coded Allergies: No Known Allergies (10/26/18) Objective General VS/I O: Vital Signs: Date Time Temp Pulse Resp B/P B/P Pulse O2 O2 Flow FiO2 Mean Ox Delivery Rate 10/06 1305 74 136/63 90 94 10/06 1200 72 29 109/63 82 97 10/06 1100 77 28 110/77 90 92 10/06 1000 73 120/66 88 95 10/06 0901 65 120/60 84 97 10/06 0805 75 142/71 100 97 10/06 0801 78 95 10/06 0800 36.7 10/06 0800 Nasal 5 cannula 10/06 0756 95 Nasal 5 cannula 10/06 0700 60 127/62 86 97 / 0600 58 28 120/67 89 96 / 0501 59 24 116/57 81 97 / 0401 63 27 124/59 85 96 10/06 0353 37.1 10/06 0300 58 27 129/62 89 98 / 0200 56 25 125/71 94 97 / 0101 58 23 130/69 94 98 05/ 0000 59 27 147/78 107 100 10/05 2354 36.8 10/05 2300 58 10 136/80 104 71 10/05 2201 61 34 135/66 92 95 10/05 2100 63 26 142/73 101 97 10/06 1999 61 27 154/72 103 93 10/05 1954 91 Nasal 5 cannula 10/05 1946 36.9 10/05 1946 Nasal 5 cannula 10/05 190 58 28 141/74 102 89 10/05 1801 59 15 157/75 108 89 10/05 1701 60 23 128/76 97 95 24 hour I O ending at 0700: 10/06 0700 10/05 1900 Intake Total 550.00 500.00 Output Total 775 Balance 550.00 -275.00 Intake, IV 350.00 350.00 Intake, Oral 200 Intake, Oral 150 Supplement Number Voids 8 Output, Urine 775 Patient 107.3 kg Weight Weight Bed scale Measurement Method PATIENT WEIGHT: Weight (lb): 237 Weight (oz): 7.01 Weight (kg): 107.700 Medications: Active Meds + DC'd Last 24 Hrs Magnesium (MAGNESIUM SULFATE 1GM) 100 ML ASDIR PRN IV Magnesium Sulfate (MAGNESIUM SULFATE 2GM) 50 ML ASDIR PRN IV Magnesium Sulfate (MAGNESIUM SULFATE 4GM) 100 ML ASDIR PRN IV Digoxin (LANOXIN) 0.125 MG DAILY PO Famotidine (PEPCID) 20 MG DAILY PO Metoprolol Tartrate (LOPRESSOR) 25 MG Q8HR PO Mupirocin (BACTROBAN 2% 22 GM OINTMENT) 1 APPLIC BID NASAL Metoprolol Tartrate (LOPRESSOR) 2.5 MG Q4H PRN PRN IV Perflutren Lipid Microsphere (DEFINITY) DIRECTED ONCE PRN IV Sodium Chloride (NACL 0.9% 10ML SYRINGE) DIRECTED ONCE PRN IV Sodium Chloride (SODIUM CHLORIDE FLUSH) 5 ML ONCE PRN IV Albuterol/Ipratropium (DUONEB 3MG-0.5MG/3 ML) 3 ML RTQ6H INH Budesonide (PULMICORT RESPULES) 0.25 MG RTBID INH Non-Formulary Medication (NON-FORMULARY) RIFABUTIN 300 MG PO DAILY DAILY PO Ethambutol HCl (MYAMBUTOL) 1,600 MG DAILY PO Isoniazid (ISONIAZID,INH) 300 MG DAILY PO Pyrazinamide (PYRAZINAMIDE) 1,500 MG DAILY PO Promethazine HCl (PHENERGAN) 12.5 MG BID PO Loperamide HCl (IMODIUM) 2 MG BID PRN PRN PO Thiamine HCl (THIAMINE ) 500 MG Q8HR IV (CKD) Sodium Chloride (SODIUM CHLORIDE 0.9%) 250 ML Pyridoxine HCl (VITAMIN B-6) 50 MG DAILY PO Dextrose/Water (DEXTROSE 50% SYR) 25 ML ASDIR PRN IV (CKD) Glucagon (GLUCAGON) 1 MG ASDIR PRN IM Insulin Human Lispro (HumaLOG) MODERATE DOSE SCALE ASDIR SUBQ Hydralazine HCl (APRESOLINE) 10 MG Q6H PRN PRN IV Nitroglycerin (NITROQUICK BOTTLE) 0.4 MG Q5M PRN PRN SL Ondansetron HCl (ZOFRAN 4 MG/2 ML INJ) 4 MG Q4H PRN PRN IV Apixaban (ELIQUIS) 5 MG BID PO Objective Physical Exam VS: Vital Signs Date Temp Pulse Resp B/P B/P Mean Pulse Ox FiO2 10/05-10/06 36.7-37.1 56-78 10-34 109-157/57-80 81-108 71-100 Last Documented: Result Date Time Pulse Ox 94 10/06 1305 B/P 136/63 10/06 1305 B/P Mean 90 10/06 1305 Pulse 74 10/06 1305 Resp 29 10/06 1200 Temp 36.7 10/06 0800 O2 Delivery Nasal cannula 10/06 0800 O2 Flow Rate 5 10/06 0800 FiO2 44 10/02 2046 HEENT: atraumatic, normocephalic Neck: full range of motion, non-tender, supple/no meningismus, no JVD, no lymphadenopathy Cardiovascular: regular rate and rhythm Respiratory: clear to auscultation Abdomen: non-tender, normal bowel sounds, soft, no distention, no guarding, no mass/organomegaly, no rebound Extremities: moves all, normal capillary refill, no edema Musculoskeletal: full range of motion, normal inspection Neuro/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: alert, oriented X 3 skin dry, intact Lymphatics: axilla normal, inguinal normal, neck normal, no lymphadenopathy Psychiatry: normal affect, normal judgment/insight, normal mood, not homicidal, not suicidal, no hallucinations Objective Physical Exam VS: Vital Signs Date Temp Pulse Resp B/P B/P Mean Pulse Ox FiO2 10/05-10/06 36.7-37.1 56-78 10-34 109-157/57-80 81-108 71-100 Last Documented: Result Date Time Pulse Ox 94 10/06 1305 B/P 136/63 10/06 1305 B/P Mean 90 10/06 1305 Pulse 74 10/06 1305 Resp 29 10/06 1200 Temp 36.7 10/06 0800 O2 Delivery Nasal cannula 10/06 0800 O2 Flow Rate 5 10/06 0800 FiO2 44 10/02 2046 PATIENT WEIGHT: Weight (lb): 237 Weight (oz): 7.01 Weight (kg): 107.700 HEENT: atraumatic, normocephalic Neck: full range of motion, non-tender, supple/no meningismus, no JVD, no lymphadenopathy Cardiovascular: regular rate and rhythm Respiratory: clear to auscultation, no distress Abdomen: non-tender, normal bowel sounds, soft, no distention, no guarding, no mass/organomegaly, no rebound Extremities: moves all, normal capillary refill, no edema Musculoskeletal: full range of motion, normal inspection Neuro/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: alert, oriented X 3 skin dry, intact Lymphatics: axilla normal, inguinal normal, neck normal, no lymphadenopathy Psychiatry: normal affect, normal judgment/insight, normal mood, not homicidal, not suicidal, no hallucinations Diagnosis, Assessment Plan Free Text DxA P Notes Free text DxA P notes: Laboratory Tests 10/06 10/05 10/04 10/04 10/04 0016 1125 2317 1040 0159 Chemistry Sodium (137 - 145 mmol/L) 135 L 139 137 Potassium (3.4 - 5.0 mmol/L) 4.2 3.3 L 3.6 3.8 3.3 L Chloride (98 - 107 mmol/L) 102 107 103 Carbon Dioxide (22 - 30 mmol/L) 30 30 31 H BUN (9 - 20 mg/dL) 6 L 9 9 Creatinine (0.7 - 1.3 mg/dL) < 0.5 L < 0.5 L 0.5 L Glucose (74 - 106 mg/dL) 134 H 111 H 108 H Impression and plan 1. Hypomagnesemia Patient has history of hypomagnesemia in the past Difficult to do fractional excretion of magnesium as our labs does not urine random magnesium We will order a 24-hour magnesium to see if there is renal wasting. Also I reviewed the medication and patient is not on any PPI We will start him on low-dose of magnesium 200 mg and see---- if the diarrhea worsens we will stop the magnesium 2. Anorexia This patient regarding some of the low magnesium We will start low-dose of Megace 3. Diarrhea Patient is on multiple medication for tuberculosis Advised primary team to discuss with ID to see if any of them can commonly cause diarrhea and then can be changed 4. Atrial flutter Keep potassium above 4 Reviewed labs We will start low-dose of potassium Thanks for this consult Dr. MILLER at 1651 RPT #:[id number] END OF REPORT [facility] 2022-10-06 06:56:00 [facility] Critical Care Progress Note REPORT#:[id number] REPORT STATUS: Signed DATE:10/06/22 TIME: 655 PATIENT: SEYMOUR SNOW UNIT #: [id number] ROOM[address]BED: [address] : [address] AGE: 72 SEX: M ATTEND: Marlyn Zee MD ADM AUTHOR: Tim Castañeda MD R1 * ALL edits or amendments must be made on the electronic/computer document * Tim Castañeda 10/06/22 0656: Subjective Chief complaint: palpitations HPI: afib rate controlled Review of Systems Constitutional: Denies: chills, fatigue. Eyes: Denies: redness, visual loss/blurred, swelling. Respiratory: Reports: PRITCHARD (dyspnea on exertion), pneumonia, SOB. Denies: wheezing. Cardiovascular: Denies: chest pain, edema, palpitations. GI: Reports: diarrhea. Denies: abdominal pain, anorexia, constipation, nausea, vomiting. Psych: Reports: insomnia. Objective Physical Exam General appearance: sleeping comfortably Head/eyes: atraumatic, clear cornea Neck: full range of motion, non-tender Cardiovascular: irregular rhythm, tachycardia, no thrill, hypotension Respiratory: aerating well, clear to auscultation, symmetric expansion, no distress Abdomen: soft, non-tender, normal bowel sounds Extremities: moves all, normal capillary refill Musculoskeletal normal inspection, painless range of motion Neuro/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: alert, oriented X 3 Skin: dry, intact Diagnosis, Assessment Plan Free text A P: Seymour Selby is a 72 yo M w hx HTN, DM, CAD, afib on eliquis, and recent dx of pulmonary TB presenting with acute atrial flutter w rvr and hypotension alongside N/V/D. NEURO acute and oriented appears at baseline CV # atrial flutter w rvr # hypotension - echo pending - K > 4 Mag > 2 - cont tele monitoring - avoiding amio due to rifampin dosing - converted to SR initially - Patient reverted back to AFlutter with RVR. Will give IV digoxin 0.5 mg now per cardio recs - increase lopressor to 25 mg po q8h. - Due to active pulm TB, he is not a candidate for BENJI/DCCV - appreciate cardiology and EP recs - cont eliquis - unsure if he has been compliant on eliquis, so will need to rule out LV thrombus - has been fluid resuscitated PULM # active pulmonary tuberculosis - recently diagnosed at [facility] - on ripe therapy. Using rifabutin - may need to replace inh for moxi due to shortage - has health department rn assigned [facility] phone number [phone] - appreciate ID recs RENAL avoid nephrotoxic meds strict is and os # hypomagnesemia - replete as tolerated - has received multiple bags of magnesium - nephro was consulted pending recs GI # gastroenteritis # intractable nausea and vomiting - was on anti emetics, clear liquid diet - now on soft diet, advance as tolerated - poor appetite ID # tuberculosis - on ripe and b6 - ID following - will get sputum cx F: Soft A: prn S: none T: eliquis [id number] U: none G: MDSS S: 5L NC B: prn I: PIV's D: RIPE ID following for TB medication RIPE with Rifabutin. On 3L NC. Downgraded pending bed availability. Dispo Home with home health per PT. Low Mag being repleted. Nephro consulted for low Mag. Case discussed w Sachin Nance 10/07/22 0957: Attestations Physician Attestation Agree w/findings plan: Agree with the findings and plan as documented by resident at 1140 at 0957 RPT #:[id number] END OF REPORT [facility] 2022-10-05 11:34:00 [facility] REPORT#:[id number] REPORT STATUS: Signed DATE:10/05/22 TIME: 1134 PATIENT: SEYMOUR SNOW UNIT #: [id number] ROOM/BED: [address] : [address] AGE: 72 SEX: M ATTEND: Marlyn Zee MD ADM AUTHOR: Marlyn Zee MD * ALL edits or amendments must be made on the electronic/computer document * Subjective Chief complaint: Cough, SOB HPI: Still mild to moderately orthopneic at rest Objective General Medications: Active Meds + DC'd Last 24 Hrs Magnesium (MAGNESIUM SULFATE 1GM) 100 ML ASDIR PRN IV Magnesium Sulfate (MAGNESIUM SULFATE 2GM) 50 ML ONCE ONE IV (DC) Magnesium Sulfate (MAGNESIUM SLIDING SCALE) 1 EACH ASDIR PRN IV (CAN) Magnesium Sulfate (MAGNESIUM SULFATE 2GM) 50 ML ASDIR PRN IV Magnesium Sulfate (MAGNESIUM SULFATE 4GM) 100 ML ASDIR PRN IV Digoxin (LANOXIN) 0.125 MG DAILY PO Famotidine (PEPCID) 20 MG DAILY PO Acetaminophen (TYLENOL REGULAR) 650 MG Q6H PO (DC) Metoprolol Tartrate (LOPRESSOR) 25 MG Q8HR PO Mupirocin (BACTROBAN 2% 22 GM OINTMENT) 1 APPLIC BID NASAL Metoprolol Tartrate (LOPRESSOR) 2.5 MG Q4H PRN PRN IV Perflutren Lipid Microsphere (DEFINITY) DIRECTED ONCE PRN IV Sodium Chloride (NACL 0.9% 10ML SYRINGE) DIRECTED ONCE PRN IV Sodium Chloride (SODIUM CHLORIDE FLUSH) 5 ML ONCE PRN IV Albuterol/Ipratropium (DUONEB 3MG-0.5MG/3 ML) 3 ML RTQ6H INH Budesonide (PULMICORT RESPULES) 0.25 MG RTBID INH Non-Formulary Medication (NON-FORMULARY) RIFABUTIN 300 MG PO DAILY DAILY PO Ethambutol HCl (MYAMBUTOL) 1,600 MG DAILY PO Isoniazid (ISONIAZID,INH) 300 MG DAILY PO Pyrazinamide (PYRAZINAMIDE) 1,500 MG DAILY PO Promethazine HCl (PHENERGAN) 12.5 MG BID PO Loperamide HCl (IMODIUM) 2 MG BID PRN PRN PO Thiamine HCl (THIAMINE ) 500 MG Q8HR IV (CKD) Sodium Chloride (SODIUM CHLORIDE 0.9%) 250 ML Pyridoxine HCl (VITAMIN B-6) 50 MG DAILY PO Dextrose/Water (DEXTROSE 50% SYR) 25 ML ASDIR PRN IV (CKD) Glucagon (GLUCAGON) 1 MG ASDIR PRN IM Insulin Human Lispro (HumaLOG) MODERATE DOSE SCALE ASDIR SUBQ Hydralazine HCl (APRESOLINE) 10 MG Q6H PRN PRN IV Nitroglycerin (NITROQUICK BOTTLE) 0.4 MG Q5M PRN PRN SL Ondansetron HCl (ZOFRAN 4 MG/2 ML INJ) 4 MG Q4H PRN PRN IV Apixaban (ELIQUIS) 5 MG BID PO Dietitian nutrition assessment The data set between the solid lines has been imported from the dietitian's assessment. BMI Calculated: 31.2 Nutrition related diagnosis: Obese Nutrition diagnosis details: BMI 30-39.9 Nutrition problem: Increased nutrient needs Nutrition etiology: INFECTION, PANCREATITIS Nutrition signs and symptoms: ADMITTED WITH ACTIVE TB, NAUSE, A, VOMITING, DIARREHEA Nutrition prescription: -RECOMMEND CCD5 DIET TOLERATED -WILL SEND GLUCERNA TID TO HELP MEET KCAL/PRO NEEDS -RD TO F/U PER FNS PROTOCOL Dietitian name: Tisha Hutchison RDN, SIMON Assessment completed: 10/03/22 Physical Exam Head/Eyes: atraumatic, normocephalic ENT: dry mucosal membrane Cardiovascular: normal heart sounds, regular rate rhythm Respiratory: clear to auscultation, symmetric expansion, no distress Abdomen: non-tender, normal bowel sounds, soft, no distention Extremities: moves all, no edema Musculoskeletal: normal inspection Neuro/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: alert, oriented X 3, normal speech Psychiatry: normal affect, normal judgment/insight, normal mood Results Findings/Data: Laboratory Tests 10/04 1908 Chemistry Sodium (137 - 145 mmol/L) 139 Potassium (3.4 - 5.0 mmol/L) 3.6 Chloride (98 - 107 mmol/L) 107 Carbon Dioxide (22 - 30 mmol/L) 30 Anion Gap 6 BUN (9 - 20 mg/dL) 9 Creatinine (0.7 - 1.3 mg/dL) < 0.5 L Glomerular Filtr Rate (mL/min) 107 Glucose (74 - 106 mg/dL) 111 H POC Glucose (74 - 106 MG/DL) 151 H Calcium (8.4 - 10.2 mg/dL) 8.0 L Magnesium (1.6 - 2.3 mg/dL) 0.9 L Specimen Hemolysis (0 - 100 Index/DL) 32 Laboratory Tests 10/04 2316 Hematology WBC (5.0 - 12.0 x10 3/uL) 5.5 RBC (4.70 - 6.10 x10 6/uL) 3.55 L Hgb (14.0 - 18.0 g/dL) 10.9 L Hct (37.0 - 49.0 %) 31.3 L MCV (80 - 94 fL) 88 MCH (27 - 31 pg) 30.7 MCHC (33 - 37 g/dL) 34.8 RDW (11.5 - 15.5 %) 13.3 Plt Count (130 - 400 x10 3/uL) 200 MPV (9.4 - 16.4 fL) 9.3 L Neut % (Auto) (43 - 65 %) 60.9 Lymph % (Auto) (20.5 - 45.5 %) 20.7 [place] % (Auto) (5.5 - 11.7 %) 10.2 Eos % (Auto) (0.9 - 2.9 %) 6.9 H Baso % (Auto) (0.2 - 1.0 %) 1.1 H Neut # (Auto) (2.2 - 4.8 x10 3/uL) 3.35 Lymph # (Auto) (1.3 - 2.9 x10 3/uL) 1.14 L [place] # (Auto) (0.3 - 0.8 x10 3/uL) 0.56 Eos # (Auto) (0.0 - 0.2 x10 3/uL) 0.38 H Baso # (Auto) (0.0 - 0.1 x10 3/uL) 0.06 Immature Gran % (0.0 - 2.0 %) 0.2 Nucleated RBC % (0 - 1.0 %) 0.0 Diagnosis, Assessment Plan Free Text DxA P Notes Free text DxA P notes: Patient is a 72-year-old male with past medical history of hypertension, diabetes, CAD, A-fib, recently diagnosed TB on treatment who presented to the ED with complaints of nausea, vomiting, diarrhea for the past 5 days is being admitted for irretractable nausea, vomiting, diarrhea likely secondary to gastroenteritis. # Active Pulmonary tuberculosis - Patient was recently diagnosed with pulmonary tuberculosis on 4 agent therapy at [facility]. - Health Dept RN assigned: [facility] [phone] -- needs DOT order for pt to obtain medications, monthly LFTs, etc -- CM consulted - Chest x-ray obtained here does show cavitary lesion - Pt started on TB meds 5 days prior to admission via [facility] - I.D consulted, restarted RIPE tx # Paroxysmal A-fib/flutter w/ RVR - CHADSVASC 3 - PMHx of A-fib on eliquis/lopressor -- resumed home eliquis for AC and lopressor for rate ctl - on admisssion pt was in NSR - TSH WNL - likely 2/2 persistent hypomagnesemia - RVR episodes: -- 09/30/22: responded to lopressor 5mg IV q5min x2 doses and 1L IVFR bolus -- 10/01/22: Aflutter 2:1, tried lopressor 5mg IV x1 dose, BP decreased, followed by amio 150mg IV bolus; considered diltiazem, however SBP <90mmHg - cardiology consulted, cont IVFR, increased lopressor dose frequency, avoid amio due to rifampin [id number] inhibition, digoxin trial w/ loading dose, obtain TTE, consider BENJI/CV - critical care consulted, accepted upgrade - monitor on tele # Hypomagnesemia - likely 2/2 recent diarrhea - pt repeatedly has low mag of 1.0 until 10/01 (1.7), however it downtrended in the afternoon to 1.5 - cont to monitor and replete - Nephrology consulted, deferred consult; consider reconsulting # Normocytic anemia - cont to monitor # Recent Gastroenteritis, resolved - Patient presented with reported nausea, vomiting, diarrhea ongoing for approximately 5 days with some associated abdominal pain. 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 Pending-hemodynamically stable. Patient currently likely will need home oxygen He lives with his . We will request PT OT evaluation prior to discharge. DOT treatment will be arranged by infectious disease with some medication adjustment as mentioned above. at 1134 RPT #:[id number] END OF REPORT [facility] 2022-10-05 06:32:00 [facility] Critical Care Progress Note REPORT#:[id number] REPORT STATUS: Signed DATE:10/05/22 TIME: 631 PATIENT: JAYLA SEYMOUR SARAH UNIT #: [id number] ROOM/BED: ICU06-A : 48 AGE: 72 SEX: M ATTEND: Marlyn Zee MD ADM AUTHOR: Tim Castañeda MD R1 * ALL edits or amendments must be made on the electronic/computer document * Tim Castañeda 10/05/22 0632: Subjective Chief complaint: palpitations HPI: afib rate controlled Review of Systems Constitutional: Reports: chills. Denies: fever. Eyes: Denies: visual loss/blurred, eye pain, swelling. ENT: Denies: earache, hearing loss, throat pain. Respiratory: Reports: productive cough (sputum). Denies: PRITCHARD (dyspnea on exertion), SOB. Cardiovascular: Denies: chest pain, PRITCHARD (dyspnea on exertion), edema. GI: Reports: diarrhea. Denies: abdominal pain, nausea, vomiting. Musculoskeletal: Extremity pain: Reports: left lower, right lower. Psych: Reports: other (lack of appetite). Objective General VS/I O Last Documented: Result Date Time Pulse Ox 93 10/05 1600 B/P 135/65 10/05 1600 B/P Mean 93 10/05 1600 Pulse 59 10/05 1600 Resp 29 10/05 1600 Temp 36.9 10/05 1200 O2 Delivery Nasal cannula 10/05 0700 O2 Flow Rate 5 10/05 0700 FiO2 44 10/02 2047 24 hour I O ending at 0700: 10/05 0700 10/04 1900 Intake Total 750.00 Output Total 2100 1050 Balance -1350.00 -1050 Intake, IV 350.00 Intake, Oral 400 Number 1 2 Bowel Movements Output, Urine 2100 1050 PATIENT WEIGHT: Weight (lb): 236 Weight (oz): 8.9 Weight (kg): 107.300 Physical Exam General appearance: alert, awake, oriented Head/eyes: atraumatic, clear cornea Neck: full range of motion, non-tender Cardiovascular: irregular rhythm, tachycardia, no thrill, hypotension Respiratory: aerating well, clear to auscultation, symmetric expansion, no distress Abdomen: soft, non-tender, normal bowel sounds Extremities: moves all, normal capillary refill Musculoskeletal normal inspection, painless range of motion Neuro/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: alert, oriented X 3 Skin: dry, intact Diagnosis, Assessment Plan Free text A P: Seymour Jayla Guiterrez is a 72 yo M w hx HTN, DM, CAD, afib on eliquis, and recent dx of pulmonary TB presenting with acute atrial flutter w rvr and hypotension alongside N/V/D. NEURO acute and oriented appears at baseline CV # atrial flutter w rvr # hypotension - echo pending - K > 4 Mag > 2 - cont tele monitoring - avoiding amio due to rifampin dosing - converted to SR initially - Patient reverted back to AFlutter with RVR. Will give IV digoxin 0.5 mg now per cardio recs - increase lopressor to 25 mg po q8h. - Due to active pulm TB, he is not a candidate for BENJI/DCCV - appreciate cardiology and EP recs - cont eliquis - unsure if he has been compliant on eliquis, so will need to rule out LV thrombus - has been fluid resuscitated PULM # active pulmonary tuberculosis - recently diagnosed at [facility] - on ripe therapy. Using rifabutin - may need to replace inh for moxi due to shortage - has health department rn assigned [facility] phone number [phone] - appreciate ID recs RENAL avoid nephrotoxic meds strict is and os # hypomagnesemia - replete as tolerated - has received multiple bags of magnesium - nephro was consulted pending recs GI # gastroenteritis # intractable nausea and vomiting - was on anti emetics, clear liquid diet - now on soft diet, advance as tolerated - poor appetite ID # tuberculosis - on ripe and b6 - ID following - will get sputum cx F: Soft A: prn S: none T: eliquis HOB45 U: none G: MDSS S: 5L NC B: prn I: PIV's D: RIPE ID following for TB medication RIPE with Rifabutin. On 7L NC. Downgraded pending bed availability. Dispo Home with home health per PT. Low Mag and K being repleted. Nephro consulted for low Mag. Case discussed w Sachin Nance 10/05/22 1636: Attestations Physician Attestation Agree w/findings plan: Agree with the findings and plan as documented by resident at 1639 at 1657 [facility] #:[id number] END OF REPORT [facility] 2022-10-04 13:46:00 [facility] Infectious Dis. Progress Note REPORT#:[id number] REPORT STATUS: Signed DATE:10/04/22 TIME: 1346 PATIENT: SEYMOUR SNOW UNIT #: [id number] ROOM/BED: [address] : 48 AGE: 72 SEX: M ATTEND: Marlyn Zee MD ADM AUTHOR: Raghav Johnson MD * ALL edits or amendments must be made on the electronic/computer document * Subjective HPI: Afebrile, very weak. in SR. Objective General VS/I O: Vital Signs Date Temp Pulse Resp B/P B/P Mean Pulse Ox FiO2 10/05-10/06 36.8-37.1 56-94 10-41 104-157/57-86 81-108 71-100 Last Documented: Result Date Time Pulse Ox 95 10/06 0756 O2 Delivery Nasal cannula 10/06 0756 O2 Flow Rate 5 10/06 0756 B/P 120/67 10/06 0600 B/P Mean 89 10/06 0600 Pulse 58 10/06 0600 Resp 28 10/06 0600 Temp 37.1 10/06 0353 FiO2 44 10/027 Vital Signs: Date Time Temp Pulse Resp B/P B/P Pulse O2 O2 Flow FiO2 Mean Ox Delivery Rate 10/06 0756 95 Nasal 5 cannula 10/06 0600 58 28 120/67 89 96 10/06 0501 59 24 116/57 81 97 10/06 0401 63 27 124/59 85 96 10/06 0353 37.1 10/06 0300 58 27 129/62 89 98 10/06 0200 56 25 125/71 94 97 10/06 0101 58 23 130/69 94 98 10/06 0000 59 27 147/78 107 100 10/05 2354 36.8 10/05 2300 58 10 136/80 104 71 10/05 2201 61 34 135/66 92 95 10/05 2100 63 26 142/73 101 97 05/20 2000 61 27 154/72 103 93 10/05 1954 91 Nasal 5 cannula 10/05 1946 36.9 10/05 1946 Nasal 5 cannula 10/05 1901 58 28 141/74 102 89 10/05 1801 59 15 157/75 108 89 10/05 1701 60 23 128/76 97 95 10/05 1600 59 29 135/65 93 93 10/05 1501 64 27 118/58 82 96 10/05 1400 75 30 128/60 87 91 10/05 1300 77 24 123/69 88 92 10/05 1201 94 41 146/86 105 97 10/05 1200 36.9 10/05 1100 83 26 104/69 82 96 10/05 1000 79 10 109/68 84 97 10/05 0945 82 26 147/70 101 90 24 hour I O ending at 0700: 10/06 0700 10/05 1900 Intake Total 550.00 500.00 Output Total 775 Balance 550.00 -275.00 Intake, IV 350.00 350.00 Intake, Oral 200 Intake, Oral 150 Supplement Number Voids 8 Output, Urine 775 Patient 107.3 kg Weight Weight Bed scale Measurement Method PATIENT WEIGHT: Weight (lb): 236 Weight (oz): 8.9 Weight (kg): 107.300 Medications: Active Meds + DC'd Last 24 Hrs Potassium Chloride (K-DUR) 40 MEQ ONCE ONE PO (DC) Magnesium (MAGNESIUM SULFATE 1GM) 100 ML ASDIR PRN IV Magnesium Sulfate (MAGNESIUM SULFATE 2GM) 50 ML ASDIR PRN IV Magnesium Sulfate (MAGNESIUM SULFATE 4GM) 100 ML ASDIR PRN IV Digoxin (LANOXIN) 0.125 MG DAILY PO Famotidine (PEPCID) 20 MG DAILY PO Metoprolol Tartrate (LOPRESSOR) 25 MG Q8HR PO Mupirocin (BACTROBAN 2% 22 GM OINTMENT) 1 APPLIC BID NASAL Metoprolol Tartrate (LOPRESSOR) 2.5 MG Q4H PRN PRN IV Perflutren Lipid Microsphere (DEFINITY) DIRECTED ONCE PRN IV Sodium Chloride (NACL 0.9% 10ML SYRINGE) DIRECTED ONCE PRN IV Sodium Chloride (SODIUM CHLORIDE FLUSH) 5 ML ONCE PRN IV Albuterol/Ipratropium (DUONEB 3MG-0.5MG/3 ML) 3 ML RTQ6H INH Budesonide (PULMICORT RESPULES) 0.25 MG RTBID INH Non-Formulary Medication (NON-FORMULARY) RIFABUTIN 300 MG PO DAILY DAILY PO Ethambutol HCl (MYAMBUTOL) 1,600 MG DAILY PO Isoniazid (ISONIAZID,INH) 300 MG DAILY PO Pyrazinamide (PYRAZINAMIDE) 1,500 MG DAILY PO Promethazine HCl (PHENERGAN) 12.5 MG BID PO Loperamide HCl (IMODIUM) 2 MG BID PRN PRN PO Thiamine HCl (THIAMINE ) 500 MG Q8HR IV (CKD) Sodium Chloride (SODIUM CHLORIDE 0.9%) 250 ML Pyridoxine HCl (VITAMIN B-6) 50 MG DAILY PO Dextrose/Water (DEXTROSE 50% SYR) 25 ML ASDIR PRN IV (CKD) Glucagon (GLUCAGON) 1 MG ASDIR PRN IM Insulin Human Lispro (HumaLOG) MODERATE DOSE SCALE ASDIR SUBQ Hydralazine HCl (APRESOLINE) 10 MG Q6H PRN PRN IV Nitroglycerin (NITROQUICK BOTTLE) 0.4 MG Q5M PRN PRN SL Ondansetron HCl (ZOFRAN 4 MG/2 ML INJ) 4 MG Q4H PRN PRN IV Apixaban (ELIQUIS) 5 MG BID PO Physical Exam General appearance: chronically ill appearing, awake Head/Eyes: atraumatic, clear cornea, EOMI, PERRLA Neck: full range of motion, supple/no meningismus Cardiovascular: normal heart sounds, regular rate rhythm, no murmur Respiratory: crackles, on oxygen, symmetric expansion Abdomen: non-tender, normal bowel sounds, soft Extremities: moves all, no edema Neuro/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: alert, oriented X 3, normal speech Results Findings/Data: Laboratory Tests 10/06 422 Blood Gas Puncture Site L Brach ABG pH (7.35 - 7.45 pH units) 7.48 H ABG pCO2 (35 - 48 mmHg) 34.1 L ABG pO2 (83 - 108 mmHg) 156.1 H ABG PO2/FiO2 Ratio (mm/Hg) 446.00 ABG HCO3 (21 - 28 mmol/L) 25.1 ABG Total CO2 (22 - 29 mmol/L) 24.0 ABG O2 Sat Calc/Kaiser (94 - 98 %) 99.5 H ABG Base Excess (-2 - 3 mmol/L) 1.6 Nasim Test N/A Sodium (138 - 146 mmol/L) 132 L Potassium (3.5 - 4.5 mmol/L) 3.7 Chloride (98 - 108 MMOL/L) 103 Ionized Calcium (1.15 - 1.33 MMOL/L) 1.28 Respiration Rate (12 - 20 /MIN) 20 O2 Delivery Device Adult Vent Vent Mode PRVC FiO2 (%) 35 Instrument (Specimen Descript) Arterial Laboratory Tests 10/06 10/06 10/05 0423 0016 1125 Chemistry Sodium (137 - 145 mmol/L) 135 L Potassium (3.4 - 5.0 mmol/L) 4.2 3.3 L Chloride (98 - 107 mmol/L) 102 Carbon Dioxide (22 - 30 mmol/L) 30 Anion Gap 7 BUN (9 - 20 mg/dL) 6 L Creatinine (0.7 - 1.3 mg/dL) < 0.5 L Glomerular Filtr Rate (mL/min) 107 Glucose (74 - 106 mg/dL) 134 H POC Glucose (74 - 100 mg/dL) 87 Calcium (8.4 - 10.2 mg/dL) 8.5 Magnesium (1.6 - 2.3 mg/dL) 1.3 L 1.1 L Specimen Hemolysis (0 - 100 Index/DL) 34 Laboratory Tests 10/06 0016 Hematology WBC (5.0 - 12.0 x10 3/uL) 5.3 RBC (4.70 - 6.10 x10 6/uL) 4.06 L Hgb (14.0 - 18.0 g/dL) 12.5 L Hct (37.0 - 49.0 %) 35.8 L MCV (80 - 94 fL) 88 MCH (27 - 31 pg) 30.8 MCHC (33 - 37 g/dL) 34.9 RDW (11.5 - 15.5 %) 13.2 Plt Count (130 - 400 x10 3/uL) 231 MPV (9.4 - 16.4 fL) 9.2 L Neut % (Auto) (43 - 65 %) 65.6 H Lymph % (Auto) (20.5 - 45.5 %) 18.6 L [place] % (Auto) (5.5 - 11.7 %) 8.3 Eos % (Auto) (0.9 - 2.9 %) 6.2 H Baso % (Auto) (0.2 - 1.0 %) 0.9 Neut # (Auto) (2.2 - 4.8 x10 3/uL) 3.49 Lymph # (Auto) (1.3 - 2.9 x10 3/uL) 0.99 L [place] # (Auto) (0.3 - 0.8 x10 3/uL) 0.44 Eos # (Auto) (0.0 - 0.2 x10 3/uL) 0.33 H Baso # (Auto) (0.0 - 0.1 x10 3/uL) 0.05 Immature Gran % (0.0 - 2.0 %) 0.4 Nucleated RBC % (0 - 1.0 %) 0.0 Diagnosis, Assessment Plan Free Text A P: #Active pulmonary TB #A.fib #HTN #DM #CAD -Patient reported diarrhea, N/V has resolved after coming here -start RIPE thereapy with rifabutin instead of rifampin and drug interaction with eliquis -might need to replace INH for moxifloxacin as there is national shortage of INH ?? -TB and TB medication education in [place] [facility] - dispo - per primary, signed form for health Department. - PT very weak. Patient is set up with health department nurse Peg, [facility] [phone], d/w primary will follow while here. at 0902 RPT #:[id number] END OF REPORT [facility] 2022-10-04 10:18:00 [facility] REPORT#:[id number] REPORT STATUS: Signed DATE:10/04/22 TIME: 1018 PATIENT: SEYMOUR SNOW UNIT #: [id number] ROOM/BED: [address] : 48 AGE: 72 SEX: M ATTEND: Marlyn Zee MD ADM AUTHOR: Marlyn Zee MD * ALL edits or amendments must be made on the electronic/computer document * Subjective Chief complaint: Cough, SOB HPI: Still mild to moderately orthopneic at rest Objective General VS/I O: Vital Signs: Date Time Temp Pulse Resp B/P B/P Pulse O2 O2 Flow FiO2 Mean Ox Delivery Rate 10/04 0800 98.4 10/04 0800 Nasal 3 cannula 10/04 0730 92 Nasal 2 cannula 10/04 0601 89 26 105/66 75 97 / 0516 85 25 154/69 99 93 05/ 0445 120/81 97 10/04 0416 98.0 66 30 139/101 109 89 10/04 0300 62 24 146/83 99 94 05/ 0200 60 25 149/72 103 95 05/19 0100 58 28 150/73 105 95 05/19 0000 97.9 56 25 132/69 94 88 05/18 2300 69 27 128/81 98 95 05/18 2200 59 25 119/71 90 96 05/18 2100 70 140/67 96 94 05/18 2042 Nasal 2 cannula 10/04 1999 3 051999 97.9 69 28 130/72 96 97 05/18 1900 76 29 124/64 88 94 05/18 1815 62 27 145/73 99 96 05/18 1801 66 30 145/82 108 98 05/18 1745 67 32 124/82 98 94 05/18 1731 62 26 136/90 105 97 05/18 1715 60 24 136/66 92 98 05/18 1700 59 27 138/64 92 98 05/18 1645 59 24 143/77 103 97 05/18 1630 58 21 148/86 112 98 05/18 1615 65 24 146/83 107 97 05/18 1604 97.9 05/18 1601 59 24 141/94 109 97 05/18 1546 61 39 130/72 97 93 05/18 1530 58 26 133/68 97 97 05/18 1515 58 26 134/75 100 97 05/18 1501 58 26 134/68 94 96 05/18 1445 74 35 147/63 91 90 05/18 1431 59 24 128/67 90 99 05/18 1415 57 23 115/62 83 97 05/18 1400 59 22 124/71 92 100 05/18 1345 59 26 133/72 97 98 05/18 1330 56 25 139/65 98 94 05/18 1315 55 24 136/77 102 96 05/18 1300 58 37 95 05/18 1245 57 22 113/69 87 98 10/03 1230 58 31 130/65 86 97 10/03 1215 57 25 128/60 87 95 10/03 1201 Nasal 6 cannula 10/03 1200 56 22 107/55 76 98 10/03 1130 57 24 108/63 80 97 10/03 1115 61 26 119/63 85 93 10/03 1100 59 25 154/64 92 97 10/03 1045 63 22 139/63 90 97 10/03 1030 61 22 135/65 93 91 24 hour I O ending at 0700: 10/04 0700 10/03 1900 Intake Total 910.00 250.00 Output Total 1300 1600 Balance -390.00 -1350.00 Intake, IV 550.00 250.00 Intake, Oral 360 Number 1 Bowel Movements Output, Urine 1300 1600 PATIENT WEIGHT: Weight (lb): 242 Weight (oz): 11.66 Weight (kg): 110.100 Physical Exam Head/Eyes: atraumatic, normocephalic ENT: dry mucosal membrane Cardiovascular: normal heart sounds, regular rate rhythm Respiratory: clear to auscultation, symmetric expansion, no distress Abdomen: non-tender, normal bowel sounds, soft, no distention Extremities: moves all, no edema Musculoskeletal: normal inspection Neuro/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: alert, oriented X 3, normal speech Psychiatry: normal affect, normal judgment/insight, normal mood Results Findings/Data: Laboratory Tests 10/04 Chemistry Sodium (137 - 145 mmol/L) 137 Potassium (3.4 - 5.0 mmol/L) 3.3 L Chloride (98 - 107 mmol/L) 103 Carbon Dioxide (22 - 30 mmol/L) 31 H Anion Gap 6 BUN (9 - 20 mg/dL) 9 Creatinine (0.7 - 1.3 mg/dL) 0.5 L Glomerular Filtr Rate (mL/min) 107 Glucose (74 - 106 mg/dL) 108 H POC Glucose (74 - 106 MG/DL) 182 H Calcium (8.4 - 10.2 mg/dL) 8.6 Magnesium (1.6 - 2.3 mg/dL) 1.1 L Specimen Hemolysis (0 - 100 Index/DL) < 15 Laboratory Tests 10/04 158 Hematology WBC (5.0 - 12.0 x10 3/uL) 5.2 RBC (4.70 - 6.10 x10 6/uL) 3.90 L Hgb (14.0 - 18.0 g/dL) 11.9 L Hct (37.0 - 49.0 %) 34.8 L MCV (80 - 94 fL) 89 MCH (27 - 31 pg) 30.5 MCHC (33 - 37 g/dL) 34.2 RDW (11.5 - 15.5 %) 13.0 Plt Count (130 - 400 x10 3/uL) 221 MPV (9.4 - 16.4 fL) 9.6 Neut % (Auto) (43 - 65 %) 71.0 H Lymph % (Auto) (20.5 - 45.5 %) 14.8 L [place] % (Auto) (5.5 - 11.7 %) 6.7 Eos % (Auto) (0.9 - 2.9 %) 6.3 H Baso % (Auto) (0.2 - 1.0 %) 1.0 Neut # (Auto) (2.2 - 4.8 x10 3/uL) 3.71 Lymph # (Auto) (1.3 - 2.9 x10 3/uL) 0.77 L [place] # (Auto) (0.3 - 0.8 x10 3/uL) 0.35 Eos # (Auto) (0.0 - 0.2 x10 3/uL) 0.33 H Baso # (Auto) (0.0 - 0.1 x10 3/uL) 0.05 Immature Gran % (0.0 - 2.0 %) 0.2 Nucleated RBC % (0 - 1.0 %) 0.0 Diagnosis, Assessment Plan Free Text DxA P Notes Free text DxA P notes: Patient is a 72-year-old male with past medical history of hypertension, diabetes, CAD, A-fib, recently diagnosed TB on treatment who presented to the ED with complaints of nausea, vomiting, diarrhea for the past 5 days is being admitted for irretractable nausea, vomiting, diarrhea likely secondary to gastroenteritis. # Active Pulmonary tuberculosis - Patient was recently diagnosed with pulmonary tuberculosis on 4 agent therapy at [facility]. - Health Dept RN assigned: Peg Lozoya [phone] -- needs DOT order for pt to obtain medications, monthly LFTs, etc -- CM consulted - Chest x-ray obtained here does show cavitary lesion - Pt started on TB meds 5 days prior to admission via [facility] - I.D consulted, restarted RIPE tx # Paroxysmal A-fib/flutter w/ RVR - CHADSVASC 3 - PMHx of A-fib on eliquis/lopressor -- resumed home eliquis for AC and lopressor for rate ctl - on admisssion pt was in NSR - TSH WNL - likely 2/2 persistent hypomagnesemia - RVR episodes: -- 09/30/22: responded to lopressor 5mg IV q5min x2 doses and 1L IVFR bolus -- 10/01/22: Aflutter 2:1, tried lopressor 5mg IV x1 dose, BP decreased, followed by amio 150mg IV bolus; considered diltiazem, however SBP <90mmHg - cardiology consulted, cont IVFR, increased lopressor dose frequency, avoid amio due to rifampin [id number] inhibition, digoxin trial w/ loading dose, obtain TTE, consider BENJI/CV - critical care consulted, accepted upgrade - monitor on tele # Hypomagnesemia - likely 2/2 recent diarrhea - pt repeatedly has low mag of 1.0 until 10/01 (1.7), however it downtrended in the afternoon to 1.5 - cont to monitor and replete - Nephrology consulted, deferred consult; consider reconsulting # Normocytic anemia - cont to monitor # Recent Gastroenteritis, resolved - Patient presented with reported nausea, vomiting, diarrhea ongoing for approximately 5 days with some associated abdominal pain. 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 Pending-hemodynamically stable. Patient currently likely will need home oxygen He lives with his . We will request PT OT evaluation prior to discharge. DOT treatment will be arranged by infectious disease with some medication adjustment as mentioned above. at 1019 RPT #:[id number] END OF REPORT [facility] 2022-10-04 07:01:00 ([facility] Critical Care Progress Note REPORT#:[id number] REPORT STATUS: Signed DATE:10/04/22 TIME: 700 PATIENT: SEYMOUR SNOW UNIT #: [id number] ROOM/BED: [address] : 48 AGE: 72 SEX: M ATTEND: Marlyn Zee MD ADM AUTHOR: Tim Castañeda MD R1 * ALL edits or amendments must be made on the electronic/computer document * Tim Castañeda 10/04/22 0701: Subjective Chief complaint: palpitations HPI: afib rate controlled Patient reports: Yes: back pain, cough. No: bowel movement. Review of Systems Constitutional: Denies: chills, fatigue, fever, generalized weakness, lethargy, malaise, recent wt loss, other. Skin: Denies: abrasion, bruising, contusion, diaphoresis, ecchymosis, itching, laceration, rash, swelling, other. Eyes: Denies: visual loss/blurred, swelling. Respiratory: Reports: productive cough (sputum), SOB. Denies: PRITCHARD (dyspnea on exertion), wheezing. Cardiovascular: Denies: chest pain, edema, palpitations. GI: Denies: abdominal pain. Psych: Reports: insomnia. Objective General VS/I O Last Documented: Result Date Time Temp 36.9 10/04 0800 O2 Delivery Nasal cannula 10/04 0800 O2 Flow Rate 3 10/04 0800 Pulse Ox 92 10/04 0730 B/P 105/66 10/04 0601 B/P Mean 75 10/04 0601 Pulse 89 10/04 0601 Resp 26 10/04 0601 FiO2 44 10/027 24 hour I O ending at 0700: 10/04 0700 10/03 1900 Intake Total 910.00 250.00 Output Total 1300 1600 Balance -390.00 -1350.00 Intake, IV 550.00 250.00 Intake, Oral 360 Number 1 Bowel Movements Output, Urine 1300 1600 PATIENT WEIGHT: Weight (lb): 242 Weight (oz): 11.66 Weight (kg): 110.100 Physical Exam General appearance: alert, awake, oriented Head/eyes: atraumatic, clear cornea Neck: full range of motion, non-tender Cardiovascular: irregular rhythm, tachycardia, no thrill, hypotension Respiratory: aerating well, clear to auscultation, symmetric expansion, no distress Abdomen: soft, non-tender, normal bowel sounds Extremities: moves all, normal capillary refill Musculoskeletal normal inspection, painless range of motion Neuro/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: alert, oriented X 3 Skin: dry, intact Diagnosis, Assessment Plan Free text A P: Seymour Selby is a 72 yo M w hx HTN, DM, CAD, afib on eliquis, and recent dx of pulmonary TB presenting with acute atrial flutter w rvr and hypotension alongside N/V/D. NEURO acute and oriented appears at baseline CV # atrial flutter w rvr # hypotension - echo pending - K > 4 Mag > 2 - cont tele monitoring - avoiding amio due to rifampin dosing - converted to SR initially - Patient reverted back to AFlutter with RVR. Will give IV digoxin 0.5 mg now per cardio recs - increase lopressor to 25 mg po q8h. - Due to active pulm TB, he is not a candidate for BENJI/DCCV - appreciate cardiology and EP recs - cont eliquis - unsure if he has been compliant on eliquis, so will need to rule out LV thrombus - has been fluid resuscitated PULM # active pulmonary tuberculosis - recently diagnosed at [facility] - on ripe therapy. Using rifabutin - may need to replace inh for moxi due to shortage - has health department rn assigned [facility] phone number [phone] - appreciate ID recs RENAL avoid nephrotoxic meds strict is and os # hypomagnesemia - replete as tolerated - has received multiple bags of magnesium - nephro was consulted pending recs GI # gastroenteritis # intractable nausea and vomiting - was on anti emetics, clear liquid diet - now on soft diet, advance as tolerated - poor appetite ID # tuberculosis - on ripe and b6 - ID following - will get sputum cx F: Soft A: prn S: none T: eliquis HOB45 U: none G: MDSS S: 5L NC B: prn I: PIV's D: RIPE ID following for TB medication RIPE with Rifabutin and possible Moxifloxacin. On 5L NC. Downgraded pending bed availability. Dispo Home with home health per PT. Pending DOT order per ID. Case discussed w Dr. Persaud Orders: Procedure Date/time Status RT: Sputum Induction 10/04 728 Active RT: Sputum Collection 10/04 728 Active CULTURE SPUTUM 10/04 728 Active Sachin Persaud 10/04/22 1712: Attestations Physician Attestation Agree w/findings plan: Agree with the findings and plan as documented by resident at 1404 at 1712 RPT #:[id number] END OF REPORT [facility] 2022-10-03 14:46:00 [facility] REPORT#:[id number] REPORT STATUS: Signed DATE:10/03/22 TIME: 1446 PATIENT: SEYMOUR SNOW UNIT #: [id number] ROOM/BED: [address] : 48 AGE: 72 SEX: M ATTEND: Marlyn Zee MD ADM AUTHOR: Marlyn Zee MD * ALL edits or amendments must be made on the electronic/computer document * Subjective Chief complaint: Cough, SOB Objective General Medications: Active Meds + DC'd Last 24 Hrs Digoxin (LANOXIN) 0.125 MG DAILY PO Famotidine (PEPCID) 20 MG DAILY PO Magnesium Oxide (MAG-OX ) 400 MG ONCE ONE PO (DC) Magnesium Sulfate (MAGNESIUM SULFATE 2GM) 50 ML ONCE ONE IV (DC) Magnesium Sulfate (MAGNESIUM SULFATE 2GM) 50 ML ONCE ONE IV (DC) Digoxin (LANOXIN) 0.25 MG NOW ONE PO (CAN) Acetaminophen (TYLENOL REGULAR) 650 MG Q6H PO Digoxin (LANOXIN) 0.5 MG ONCE ONE IV (DC) Digoxin (LANOXIN) 0.125 MG ONCE ONE IV (CAN) Metoprolol Tartrate (LOPRESSOR) 25 MG Q8HR PO Mupirocin (BACTROBAN 2% 22 GM OINTMENT) 1 APPLIC BID NASAL Metoprolol Tartrate (LOPRESSOR) 2.5 MG Q4H PRN PRN IV Perflutren Lipid Microsphere (DEFINITY) DIRECTED ONCE PRN IV Sodium Chloride (NACL 0.9% 10ML SYRINGE) DIRECTED ONCE PRN IV Sodium Chloride (SODIUM CHLORIDE FLUSH) 5 ML ONCE PRN IV Albuterol/Ipratropium (DUONEB 3MG-0.5MG/3 ML) 3 ML RTQ6H INH Budesonide (PULMICORT RESPULES) 0.25 MG RTBID INH Non-Formulary Medication (NON-FORMULARY) RIFABUTIN 300 MG PO DAILY DAILY PO Ethambutol HCl (MYAMBUTOL) 1,600 MG DAILY PO Isoniazid (ISONIAZID,INH) 300 MG DAILY PO Pyrazinamide (PYRAZINAMIDE) 1,500 MG DAILY PO Promethazine HCl (PHENERGAN) 12.5 MG BID PO Loperamide HCl (IMODIUM) 2 MG BID PRN PRN PO Thiamine HCl (THIAMINE ) 500 MG Q8HR IV (CKD) Sodium Chloride (SODIUM CHLORIDE 0.9%) 250 ML Pyridoxine HCl (VITAMIN B-6) 50 MG DAILY PO Morphine Sulfate (morphine) 2 MG Q4H PRN PRN IV (DC) Dextrose/Water (DEXTROSE 50% SYR) 25 ML ASDIR PRN IV (CKD) Glucagon (GLUCAGON) 1 MG ASDIR PRN IM Hydromorphone HCl (DILAUDID) 1 MG Q6H PRN PRN PO (DC) Insulin Human Lispro (HumaLOG) MODERATE DOSE SCALE ASDIR SUBQ Hydralazine HCl (APRESOLINE) 10 MG Q6H PRN PRN IV Nitroglycerin (NITROQUICK BOTTLE) 0.4 MG Q5M PRN PRN SL Ondansetron HCl (ZOFRAN 4 MG/2 ML INJ) 4 MG Q4H PRN PRN IV Apixaban (ELIQUIS) 5 MG BID PO Metoprolol Tartrate (LOPRESSOR) 12.5 MG BID PO (DC) Dietitian nutrition assessment The data set between the solid lines has been imported from the dietitian's assessment. BMI Calculated: 31.2 Nutrition related diagnosis: Nutrition diagnosis details: Nutrition problem: Nutrition etiology: Nutrition signs and symptoms: Nutrition prescription: Dietitian name: Assessment completed: Physical Exam Head/Eyes: atraumatic, normocephalic ENT: dry mucosal membrane Cardiovascular: normal heart sounds, regular rate rhythm Respiratory: clear to auscultation, symmetric expansion, no distress Abdomen: non-tender, normal bowel sounds, soft, no distention Extremities: moves all, no edema Musculoskeletal: normal inspection Neuro/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: alert, oriented X 3, normal speech Psychiatry: normal affect, normal judgment/insight, normal mood Results Findings/Data: Laboratory Tests 10/03 10/03 10/03 10/02 10/02 0935 0619 0227 2142 2021 Chemistry Sodium (137 - 145 mmol/L) 135 L Potassium (3.4 - 5.0 mmol/L) 3.7 Chloride (98 - 107 mmol/L) 104 Carbon Dioxide (22 - 30 mmol/L) 32 H Anion Gap 2 BUN (9 - 20 mg/dL) 12 Creatinine (0.7 - 1.3 mg/dL) 0.5 L Glomerular Filtr Rate (mL/min) 107 Glucose (74 - 106 mg/dL) 101 POC Glucose (74 - 106 MG/DL) 118 H Calcium (8.4 - 10.2 mg/dL) 8.3 L Magnesium (1.6 - 2.3 mg/dL) 1.5 L 1.8 0.9 L 1.0 L Total Bilirubin (0.2 - 1.3 mg/dL) 0.7 Conjugated Bilirubin (0 - 0.3 mg/dL) 0 Unconjugated Bilirubin (0 - 1.1 mg/dL) 0.5 AST (15 - 46 U/L) 41 ALT (0 - 49 U/L) 20 Total Alk Phosphatase (38 - 126 U/L) 94 Total Protein (6.3 - 8.2 g/dL) 6.0 L Albumin (3.5 - 5.0 g/dL) 2.6 L Specimen Hemolysis (0 - 100 Index/DL) < 15 Laboratory Tests 10/03 226 Hematology WBC (5.0 - 12.0 x10 3/uL) 6.3 RBC (4.70 - 6.10 x10 6/uL) 3.48 L Hgb (14.0 - 18.0 g/dL) 10.8 L Hct (37.0 - 49.0 %) 31.1 L MCV (80 - 94 fL) 89 MCH (27 - 31 pg) 31.0 MCHC (33 - 37 g/dL) 34.7 RDW (11.5 - 15.5 %) 13.0 Plt Count (130 - 400 x10 3/uL) 192 MPV (9.4 - 16.4 fL) 9.4 Neut % (Auto) (43 - 65 %) 69.8 H Lymph % (Auto) (20.5 - 45.5 %) 15.6 L [place] % (Auto) (5.5 - 11.7 %) 8.0 Eos % (Auto) (0.9 - 2.9 %) 5.5 H Baso % (Auto) (0.2 - 1.0 %) 0.6 Neut # (Auto) (2.2 - 4.8 x10 3/uL) 4.42 Lymph # (Auto) (1.3 - 2.9 x10 3/uL) 0.99 L [place] # (Auto) (0.3 - 0.8 x10 3/uL) 0.51 Eos # (Auto) (0.0 - 0.2 x10 3/uL) 0.35 H Baso # (Auto) (0.0 - 0.1 x10 3/uL) 0.04 Immature Gran % (0.0 - 2.0 %) 0.5 Nucleated RBC % (0 - 1.0 %) 0.0 Microbiology Date/Time Procedure - Status Source Growth 10/03 226 Sputum Culture - COMP SPUTUM 10/03 226 Gram Stain - COMP SPUTUM Radiology data: Recent Impressions: RADIOLOGY - XR CHEST 1 V 10/02 1928 Report Impression - Status: SIGNED Entered: 10/02/20222224 IMPRESSION: Persistence of cavitary lesion in the left upper lobe with both infectious and neoplastic entities in the differential. More extensive opacification/consolidation in the left upper lobe of concern for possible evolving pneumonia Evolving small left-sided pleural effusion Impression By: Tanja - Kimmie Sung MD Diagnosis, Assessment Plan Free Text DxA P Notes Free text DxA P notes: Patient is a 72-year-old male with past medical history of hypertension, diabetes, CAD, A-fib, recently diagnosed TB on treatment who presented to the ED with complaints of nausea, vomiting, diarrhea for the past 5 days is being admitted for irretractable nausea, vomiting, diarrhea likely secondary to gastroenteritis. # Active Pulmonary tuberculosis - Patient was recently diagnosed with pulmonary tuberculosis on 4 agent therapy at [facility]. - Health Dept RN assigned: [facility] [phone] -- needs DOT order for pt to obtain medications, monthly LFTs, etc -- CM consulted - Chest x-ray obtained here does show cavitary lesion - Pt started on TB meds 5 days prior to admission via [facility] - I.D consulted, restarted RIPE tx # Paroxysmal A-fib/flutter w/ RVR - CHADSVASC 3 - PMHx of A-fib on eliquis/lopressor -- resumed home eliquis for AC and lopressor for rate ctl - on admisssion pt was in NSR - TSH WNL - likely 2/2 persistent hypomagnesemia - RVR episodes: -- 09/30/22: responded to lopressor 5mg IV q5min x2 doses and 1L IVFR bolus -- 10/01/22: Aflutter 2:1, tried lopressor 5mg IV x1 dose, BP decreased, followed by amio 150mg IV bolus; considered diltiazem, however SBP <90mmHg - cardiology consulted, cont IVFR, increased lopressor dose frequency, avoid amio due to rifampin [id number] inhibition, digoxin trial w/ loading dose, obtain TTE, consider BENJI/CV - critical care consulted, accepted upgrade - monitor on tele # Hypomagnesemia - likely 2/2 recent diarrhea - pt repeatedly has low mag of 1.0 until 10/01 (1.7), however it downtrended in the afternoon to 1.5 - cont to monitor and replete - Nephrology consulted, deferred consult; consider reconsulting # Normocytic anemia - cont to monitor # Recent Gastroenteritis, resolved - Patient presented with reported nausea, vomiting, diarrhea ongoing for approximately 5 days with some associated abdominal pain. 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 Cardiology Progress Note REPORT#:[id number] REPORT STATUS: Signed DATE:10/03/22 TIME: 0949 PATIENT: SEYMOUR SNOW UNIT #: [id number] ROOM[address]BED: [address] : [address] AGE: 72 SEX: M ATTEND: Pepito Luna MD ADM AUTHOR: Thais Fitzpatrick MD * ALL edits or amendments must be made on the electronic/computer document * Subjective Chief complaint: No new complaints Tele NSR HPI: Mr. Dickerson is a 72yo with history of parox AF, recent diagnosis of cavitary TB with admitted for nausea vomiting was ntoed to go into AF and then flutter and cardiology is consulted. HR has been running in the mid 150s. He is on Eliquis and Metoprolol as an outpatient. Patient reports: Yes: fatigue. No: chest pain, palpitations. Objective General VS/I O: 24 hour I O ending at 0700: 10/03 0700 05/ 1900 Intake Total 800.00 Output Total 1375 1350 Balance -575.00 -1350 Intake, IV 600.00 Intake, Oral 200 Number 1 Bowel Movements Number Voids Output, Urine 1375 1350 Patient 110.1 kg Weight Weight Bed scale Measurement Method Vital Signs: Date Time Temp Pulse Resp B/P B/P Pulse O2 O2 Flow FiO2 Mean Ox Delivery Rate 10/03 0805 92 Nasal 6 cannula 18 0631 102 23 117/78 93 96 05/18 0615 66 20 110/53 76 97 05/18 0600 71 20 120/81 97 98 05/18 0545 64 15 112/59 77 98 05/18 0530 61 22 102/59 74 99 05/18 0515 61 24 111/59 80 98 05/18 0501 66 27 101/57 76 91 05/18 0445 116 23 98/49 71 95 05/18 0430 94 23 127/60 86 97 05/18 0415 66 30 129/59 85 97 05/18 0401 69 26 124/69 91 97 05/18 0400 36.7 Nasal 6 cannula 05/18 0345 65 24 134/63 90 05/18 0330 65 20 162/79 114 99 05/18 0315 59 24 149/72 104 95 05/18 0304 63 25 129/77 98 94 05/18 0245 58 27 137/83 102 93 05/18 0230 57 30 141/82 107 98 05/18 0216 55 26 135/65 91 95 05/18 0200 55 28 139/67 97 95 05/18 0146 82 31 157/81 112 95 05/18 0130 54 24 133/74 99 94 05/18 0115 55 23 142/79 105 94 05/18 0100 55 34 129/72 96 89 05/18 0045 54 27 126/67 93 90 05/18 0030 56 26 127/73 94 89 05/18 0015 55 25 131/87 105 97 05/18 0000 36.6 Nasal 6 cannula 05/18 0000 54 33 130/82 101 94 05/17 2345 54 23 125/79 98 95 05/17 2330 54 30 129/93 107 93 05/17 2315 55 26 124/75 95 96 05/17 2300 54 26 123/81 98 96 05/17 2245 56 23 124/80 98 96 05/17 2230 53 38 142/80 105 97 05/17 2215 56 32 158/103 126 97 05/17 2200 53 26 104/65 78 96 05/17 2146 53 30 117/69 83 90 05/17 2130 54 35 132/73 97 92 05/17 2115 53 23 119/65 86 93 05/17 2100 57 25 126/73 95 98 05/17 7 96 Nasal 6 44 cannula 05/17 2044 56 21 119/65 86 93 05/17 2030 57 26 110/69 84 97 05/17 2015 56 24 126/62 85 95 05/17 1999 36.6 Nasal 6 cannula 05/17 1999 54 22 118/66 88 94 05/17 195 Nasal 6 cannula 05/17 1946 61 30 138/63 91 96 05/17 1931 59 27 124/61 88 95 05/17 1915 59 24 134/69 96 95 05/17 1900 59 22 133/67 94 96 05/17 1833 80 28 97 05/17 1830 59 35 108/65 82 94 05/17 1815 57 22 119/69 89 95 05/17 1801 60 34 120/78 95 91 05/17 1800 59 34 92 05/17 1746 61 24 128/81 100 93 05/17 1745 60 21 94 05/17 1730 70 48 90 05/17 1716 66 25 114/56 76 88 05/17 1715 69 39 77 05/17 1700 66 126/72 94 96 05/17 1645 70 79 05/17 1630 70 118/61 81 95 05/17 1615 68 141/72 100 94 05/17 1601 68 131/67 91 92 05/17 1600 36.9 05/17 1600 68 93 05/17 1545 155 28 116/71 87 93 05/17 1530 140 25 144/68 93 100 05/17 1515 97 25 137/77 102 99 05/17 1500 67 22 100 05/17 1445 63 25 150/72 103 100 05/17 1430 64 26 130/71 96 91 05/17 1415 63 25 137/68 97 94 05/17 1401 70 53 138/93 109 96 05/17 1400 69 43 86 05/17 1347 69 41 114/71 86 94 10/02 1345 64 29 97 05 1330 65 25 148/80 98 95 05/ 1315 66 30 138/60 87 94 10/02 1300 66 24 145/83 108 96 05/ 1245 65 24 132/90 106 95 05 1231 66 24 121/74 93 91 05 1230 65 37 92 05 1216 67 25 143/86 109 93 10/02 1215 66 24 91 05 1201 65 27 118/83 95 94 10/02 1200 36.7 10/02 1200 67 27 94 05 1145 66 128/71 92 87 05 1130 71 24 135/65 94 95 05 1115 68 23 129/71 95 93 10/02 1100 71 23 137/83 104 93 05 1045 72 22 145/67 97 94 10/02 1030 75 23 137/70 98 97 / 1015 74 23 142/62 89 91 05 1000 74 22 132/63 91 94 PATIENT WEIGHT: Weight (lb): 242 Weight (oz): 11.66 Weight (kg): 110.100 Medications: Active Meds + DC'd Last 24 Hrs Digoxin (LANOXIN) 0.125 MG DAILY PO Famotidine (PEPCID) 20 MG DAILY PO Magnesium Oxide (MAG-OX ) 400 MG ONCE ONE PO (DC) Magnesium Sulfate (MAGNESIUM SULFATE 2GM) 50 ML ONCE ONE IV (DC) Magnesium Sulfate (MAGNESIUM SULFATE 2GM) 50 ML ONCE ONE IV (DC) Digoxin (LANOXIN) 0.25 MG NOW ONE PO (CAN) Acetaminophen (TYLENOL REGULAR) 650 MG Q6H PO Digoxin (LANOXIN) 0.5 MG ONCE ONE IV (DC) Digoxin (LANOXIN) 0.125 MG ONCE ONE IV (CAN) Metoprolol Tartrate (LOPRESSOR) 25 MG Q8HR PO Mupirocin (BACTROBAN 2% 22 GM OINTMENT) 1 APPLIC BID NASAL Metoprolol Tartrate (LOPRESSOR) 2.5 MG Q4H PRN PRN IV Perflutren Lipid Microsphere (DEFINITY) DIRECTED ONCE PRN IV Sodium Chloride (NACL 0.9% 10ML SYRINGE) DIRECTED ONCE PRN IV Sodium Chloride (SODIUM CHLORIDE FLUSH) 5 ML ONCE PRN IV Albuterol/Ipratropium (DUONEB 3MG-0.5MG/3 ML) 3 ML RTQ6H INH Budesonide (PULMICORT RESPULES) 0.25 MG RTBID INH Non-Formulary Medication (NON-FORMULARY) RIFABUTIN 300 MG PO DAILY DAILY PO Ethambutol HCl (MYAMBUTOL) 1,600 MG DAILY PO Isoniazid (ISONIAZID,INH) 300 MG DAILY PO Pyrazinamide (PYRAZINAMIDE) 1,500 MG DAILY PO Promethazine HCl (PHENERGAN) 12.5 MG BID PO Loperamide HCl (IMODIUM) 2 MG BID PRN PRN PO Thiamine HCl (THIAMINE ) 500 MG Q8HR IV (CKD) Sodium Chloride (SODIUM CHLORIDE 0.9%) 250 ML Pyridoxine HCl (VITAMIN B-6) 50 MG DAILY PO Morphine Sulfate (morphine) 2 MG Q4H PRN PRN IV (DC) Dextrose/Water (DEXTROSE 50% SYR) 25 ML ASDIR PRN IV (CKD) Glucagon (GLUCAGON) 1 MG ASDIR PRN IM Hydromorphone HCl (DILAUDID) 1 MG Q6H PRN PRN PO (DC) Insulin Human Lispro (HumaLOG) MODERATE DOSE SCALE ASDIR SUBQ Hydralazine HCl (APRESOLINE) 10 MG Q6H PRN PRN IV Nitroglycerin (NITROQUICK BOTTLE) 0.4 MG Q5M PRN PRN SL Ondansetron HCl (ZOFRAN 4 MG/2 ML INJ) 4 MG Q4H PRN PRN IV Apixaban (ELIQUIS) 5 MG BID PO Metoprolol Tartrate (LOPRESSOR) 12.5 MG BID PO (DC) Physical Exam General appearance: alert, awake, oriented Head/Eyes: atraumatic, EOMI Neck: full range of motion Cardiovascular: CV assessment: regular rate and rhythm Respiratory: decreased breath sounds Abdomen: soft, non-tender Lower extremity: LE assessment: no edema Neuro/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: oriented X 3 Results Findings/Data: Laboratory Tests 10/03/22 0227: [Embedded Image Not Available] 10/02/22 0013: [Embedded Image Not Available] 10/01/22 1545: [Embedded Image Not Available] 10/01/22 1431: [Embedded Image Not Available] Laboratory Tests 10/0319 0222142 115 Chemistry Sodium (137 - 145 mmol/L) 135 L Potassium (3.4 - 5.0 mmol/L) 3.7 Chloride (98 - 107 mmol/L) 104 Carbon Dioxide (22 - 30 mmol/L) 32 H Anion Gap 2 BUN (9 - 20 mg/dL) 12 Creatinine (0.7 - 1.3 mg/dL) 0.5 L Glomerular Filtr Rate (mL/min) 107 Glucose (74 - 106 mg/dL) 101 POC Glucose (74 - 106 MG/DL) 118 H 128 H Calcium (8.4 - 10.2 mg/dL) 8.3 L Magnesium (1.6 - 2.3 mg/dL) 1.8 0.9 L 1.0 L Total Bilirubin (0.2 - 1.3 mg/dL) 0.7 Conjugated Bilirubin (0 - 0.3 mg/dL) 0 Unconjugated Bilirubin (0 - 1.1 mg/dL) 0.5 AST (15 - 46 U/L) 41 ALT (0 - 49 U/L) 20 Total Alk Phosphatase (38 - 126 U/L) 94 Total Protein (6.3 - 8.2 g/dL) 6.0 L Albumin (3.5 - 5.0 g/dL) 2.6 L Specimen Hemolysis (0 - 100 Index/DL) < 15 Laboratory Tests 10/03 226 Hematology WBC (5.0 - 12.0 x10 3/uL) 6.3 RBC (4.70 - 6.10 x10 6/uL) 3.48 L Hgb (14.0 - 18.0 g/dL) 10.8 L Hct (37.0 - 49.0 %) 31.1 L MCV (80 - 94 fL) 89 MCH (27 - 31 pg) 31.0 MCHC (33 - 37 g/dL) 34.7 RDW (11.5 - 15.5 %) 13.0 Plt Count (130 - 400 x10 3/uL) 192 MPV (9.4 - 16.4 fL) 9.4 Neut % (Auto) (43 - 65 %) 69.8 H Lymph % (Auto) (20.5 - 45.5 %) 15.6 L [place] % (Auto) (5.5 - 11.7 %) 8.0 Eos % (Auto) (0.9 - 2.9 %) 5.5 H Baso % (Auto) (0.2 - 1.0 %) 0.6 Neut # (Auto) (2.2 - 4.8 x10 3/uL) 4.42 Lymph # (Auto) (1.3 - 2.9 x10 3/uL) 0.99 L [place] # (Auto) (0.3 - 0.8 x10 3/uL) 0.51 Eos # (Auto) (0.0 - 0.2 x10 3/uL) 0.35 H Baso # (Auto) (0.0 - 0.1 x10 3/uL) 0.04 Immature Gran % (0.0 - 2.0 %) 0.5 Nucleated RBC % (0 - 1.0 %) 0.0 Laboratory Tests 10/03 10/03 10/02 0619 0227 2143 Chemistry Magnesium (1.6 - 2.3 mg/dL) 1.8 0.9 L 1.0 L Telemetry Interpretation: NSR with PACs Diagnosis, Assessment Plan Free Text DxA P Notes Free Text DxA P Notes: ECHO: EF 55-60%; dilated LA; trivial AR/MR/TR/SC 1. PAtrial flutter--now back in NSR - continue metoprolol for rate control - Amiodarone is problematic in the setting of rifampin dosing - continue metoprolol 12.5 mg po bid - continue Eliquis 2. Active TB--per ID 3. DM--per primary team No new cardiac recommendations at this time. Cardiology signing off--please reconsult prn. [facility] at 0955 RPT #:[id number] END OF REPORT [facility] 2022-10-03 08:46:00 ([facility]) Infectious Dis. Progress Note REPORT#:[id number] REPORT STATUS: Signed DATE:10/03/22 TIME: 0846 PATIENT: SEYMOUR SNOW UNIT #: [id number] [address] AGE: 72 SEX: M ATTEND: Marlyn Zee MD ADM AUTHOR: Carol Jimenez MD R3 * ALL edits or amendments must be made on the electronic/computer document * Carol Jimenez 10/03/22 0846: Subjective Comments: Patient denied any complaints except PRITCHARD and productive cough No events overnight Afebrile Objective General VS/I O: Vital Signs Date Temp Pulse Resp B/P B/P Mean Pulse Ox FiO2 10/02-10/03 97.8-98.5 52-155 15-53 98-162/49-103 71-126 77-100 44 Last Documented: Result Date Time O2 Delivery Nasal cannula 10/03 1201 O2 Flow Rate 6 10/03 1201 Pulse Ox 97 10/03 1130 B/P 108/63 10/03 1130 B/P Mean 80 10/03 1130 Pulse 57 10/03 1130 Resp 24 10/03 1130 Temp 98.5 / 0800 FiO2 44 10/02 2047 Vital Signs: Date Time Temp Pulse Resp B/P B/P Pulse O2 O2 Flow FiO2 Mean Ox Delivery Rate 10/03 1201 Nasal 6 cannula 10/03 1130 57 24 108/63 80 97 05/18 1115 61 26 119/63 85 93 05/18 1100 59 25 154/64 92 97 05/18 1045 63 22 139/63 90 97 05/18 1030 61 22 135/65 93 91 05/18 1015 60 23 109/58 78 98 05/18 1000 57 28 119/61 85 98 05/18 0945 59 21 116/68 88 95 05/18 0930 59 20 99 05/18 0915 55 19 112/58 82 95 05/18 0900 53 21 120/60 85 94 05/18 0845 75 37 104/57 75 92 05/18 0830 52 21 120/61 84 95 05/18 0815 53 21 110/56 77 97 05/18 0805 92 Nasal 6 cannula 05/18 0801 55 25 114/64 84 97 05/18 0800 98.5 05/18 0800 Nasal 6 cannula 05/18 0800 56 23 98 05/18 0631 102 23 117/78 93 96 05/18 0615 66 20 110/53 76 97 05/18 0600 71 20 120/81 97 98 05/18 0545 64 15 112/59 77 98 05/18 0530 61 22 102/59 74 99 05/18 0515 61 24 111/59 80 98 05/18 0501 66 27 101/57 76 91 05/18 0445 116 23 98/49 71 95 05/18 0430 94 23 127/60 86 97 05/18 0415 66 30 129/59 85 97 05/18 0401 69 26 124/69 91 97 05/18 0400 98.1 Nasal 6 cannula 05/18 0345 65 24 134/63 90 05/18 0330 65 20 162/79 114 99 05/18 0315 59 24 149/72 104 95 05/18 0304 63 25 129/77 98 94 05/18 0245 58 27 137/83 102 93 05/18 0230 57 30 141/82 107 98 05/18 0216 55 26 135/65 91 95 05/18 0200 55 28 139/67 97 95 05/18 0146 82 31 157/81 112 95 05/18 0130 54 24 133/74 99 94 05/18 0115 55 23 142/79 105 94 05/18 0100 55 34 129/72 96 89 05/18 0045 54 27 126/67 93 90 05/18 0030 56 26 127/73 94 89 05/18 0015 55 25 131/87 105 97 05/18 0000 97.8 Nasal 6 cannula 05/18 0000 54 33 130/82 101 94 05/17 2345 54 23 125/79 98 95 05/17 2330 54 30 129/93 107 93 05/17 2315 55 26 124/75 95 96 05/17 2300 54 26 123/81 98 96 05/17 2245 56 23 124/80 98 96 05/17 2230 53 38 142/80 105 97 05/17 2215 56 32 158/103 126 97 05/17 2200 53 26 104/65 78 96 05/17 2146 53 30 117/69 83 90 05/17 2130 54 35 132/73 97 92 05/17 2115 53 23 119/65 86 93 05/17 2100 57 25 126/73 95 98 05/17 7 96 Nasal 6 44 cannula 05/17 2044 56 21 119/65 86 93 05/17 2029 57 26 110/69 84 97 05/17 2015 56 24 126/62 85 95 05/17 1999 97.9 Nasal 6 cannula 05/17 1999 54 22 118/66 88 94 05/17 1954 Nasal 6 cannula 10/02 1946 61 30 138/63 91 96 10/02 1931 59 27 124/61 88 95 10/02 1915 59 24 134/69 96 95 10/02 1900 59 22 133/67 94 96 10/02 1833 80 28 97 10/02 1830 59 35 108/65 82 94 10/02 1815 57 22 119/69 89 95 10/02 1801 60 34 120/78 95 91 10/02 1800 59 34 92 05 1746 61 24 128/81 100 93 10/02 1745 60 21 94 10/02 1730 70 48 90 10/02 1716 66 25 114/56 76 88 10/02 1715 69 39 77 10/02 1700 66 126/72 94 96 10/02 1645 70 79 10/02 1630 70 118/61 81 95 10/02 1615 68 141/72 100 94 10/02 1601 68 131/67 91 92 10/02 1600 98.4 10/02 1600 68 93 10/02 1545 155 28 116/71 87 93 05 1530 140 25 144/68 93 100 10/02 1515 97 25 137/77 102 99 10/02 1500 67 22 100 10/02 1445 63 25 150/72 103 100 10/02 1430 64 26 130/71 96 91 10/02 1415 63 25 137/68 97 94 10/02 1401 70 53 138/93 109 96 10/02 1400 69 43 86 24 hour I O ending at 0700: 10/03 0700 10/02 1900 Intake Total 800.00 Output Total 1375 1350 Balance -575.00 -1350 Intake, IV 600.00 Intake, Oral 200 Number 1 Bowel Movements Number Voids Output, Urine 1375 1350 Patient 110.1 kg Weight Weight Bed scale Measurement Method PATIENT WEIGHT: Weight (lb): 242 Weight (oz): 11.66 Weight (kg): 110.100 Medications: Active Meds + DC'd Last 24 Hrs Digoxin (LANOXIN) 0.125 MG DAILY PO Famotidine (PEPCID) 20 MG DAILY PO Magnesium Oxide (MAG-OX ) 400 MG ONCE ONE PO (DC) Magnesium Sulfate (MAGNESIUM SULFATE 2GM) 50 ML ONCE ONE IV (DC) Magnesium Sulfate (MAGNESIUM SULFATE 2GM) 50 ML ONCE ONE IV (DC) Digoxin (LANOXIN) 0.25 MG NOW ONE PO (CAN) Acetaminophen (TYLENOL REGULAR) 650 MG Q6H PO Digoxin (LANOXIN) 0.5 MG ONCE ONE IV (DC) Digoxin (LANOXIN) 0.125 MG ONCE ONE IV (CAN) Metoprolol Tartrate (LOPRESSOR) 25 MG Q8HR PO Mupirocin (BACTROBAN 2% 22 GM OINTMENT) 1 APPLIC BID NASAL Metoprolol Tartrate (LOPRESSOR) 2.5 MG Q4H PRN PRN IV Perflutren Lipid Microsphere (DEFINITY) DIRECTED ONCE PRN IV Sodium Chloride (NACL 0.9% 10ML SYRINGE) DIRECTED ONCE PRN IV Sodium Chloride (SODIUM CHLORIDE FLUSH) 5 ML ONCE PRN IV Albuterol/Ipratropium (DUONEB 3MG-0.5MG/3 ML) 3 ML RTQ6H INH Budesonide (PULMICORT RESPULES) 0.25 MG RTBID INH Non-Formulary Medication (NON-FORMULARY) RIFABUTIN 300 MG PO DAILY DAILY PO Ethambutol HCl (MYAMBUTOL) 1,600 MG DAILY PO Isoniazid (ISONIAZID,INH) 300 MG DAILY PO Pyrazinamide (PYRAZINAMIDE) 1,500 MG DAILY PO Promethazine HCl (PHENERGAN) 12.5 MG BID PO Loperamide HCl (IMODIUM) 2 MG BID PRN PRN PO Thiamine HCl (THIAMINE ) 500 MG Q8HR IV (CKD) Sodium Chloride (SODIUM CHLORIDE 0.9%) 250 ML Pyridoxine HCl (VITAMIN B-6) 50 MG DAILY PO Morphine Sulfate (morphine) 2 MG Q4H PRN PRN IV (DC) Dextrose/Water (DEXTROSE 50% SYR) 25 ML ASDIR PRN IV (CKD) Glucagon (GLUCAGON) 1 MG ASDIR PRN IM Hydromorphone HCl (DILAUDID) 1 MG Q6H PRN PRN PO (DC) Insulin Human Lispro (HumaLOG) MODERATE DOSE SCALE ASDIR SUBQ Hydralazine HCl (APRESOLINE) 10 MG Q6H PRN PRN IV Nitroglycerin (NITROQUICK BOTTLE) 0.4 MG Q5M PRN PRN SL Ondansetron HCl (ZOFRAN 4 MG/2 ML INJ) 4 MG Q4H PRN PRN IV Apixaban (ELIQUIS) 5 MG BID PO Metoprolol Tartrate (LOPRESSOR) 12.5 MG BID PO (DC) Physical Exam General appearance: alert, awake, oriented, no acute distress Head/Eyes: atraumatic, clear cornea, EOMI, PERRLA Neck: full range of motion, supple/no meningismus Cardiovascular: normal heart sounds, regular rate rhythm, no murmur Respiratory: crackles, on oxygen, symmetric expansion Abdomen: non-tender, normal bowel sounds, soft Extremities: moves all, no edema Neuro/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: alert, oriented X 3, normal speech Results Findings/Data: Laboratory Tests 10/03 10/03 10/03 10/02 10/02 0935 0619 0226 2142 2021 Chemistry Sodium (137 - 145 mmol/L) 135 L Potassium (3.4 - 5.0 mmol/L) 3.7 Chloride (98 - 107 mmol/L) 104 Carbon Dioxide (22 - 30 mmol/L) 32 H Anion Gap 2 BUN (9 - 20 mg/dL) 12 Creatinine (0.7 - 1.3 mg/dL) 0.5 L Glomerular Filtr Rate (mL/min) 107 Glucose (74 - 106 mg/dL) 101 POC Glucose (74 - 106 MG/DL) 118 H Calcium (8.4 - 10.2 mg/dL) 8.3 L Magnesium (1.6 - 2.3 mg/dL) 1.5 L 1.8 0.9 L 1.0 L Total Bilirubin (0.2 - 1.3 mg/dL) 0.7 Conjugated Bilirubin (0 - 0.3 mg/dL) 0 Unconjugated Bilirubin (0 - 1.1 mg/dL) 0.5 AST (15 - 46 U/L) 41 ALT (0 - 49 U/L) 20 Total Alk Phosphatase (38 - 126 U/L) 94 Total Protein (6.3 - 8.2 g/dL) 6.0 L Albumin (3.5 - 5.0 g/dL) 2.6 L Specimen Hemolysis (0 - 100 Index/DL) < 15 Laboratory Tests 10/03 226 Hematology WBC (5.0 - 12.0 x10 3/uL) 6.3 RBC (4.70 - 6.10 x10 6/uL) 3.48 L Hgb (14.0 - 18.0 g/dL) 10.8 L Hct (37.0 - 49.0 %) 31.1 L MCV (80 - 94 fL) 89 MCH (27 - 31 pg) 31.0 MCHC (33 - 37 g/dL) 34.7 RDW (11.5 - 15.5 %) 13.0 Plt Count (130 - 400 x10 3/uL) 192 MPV (9.4 - 16.4 fL) 9.4 Neut % (Auto) (43 - 65 %) 69.8 H Lymph % (Auto) (20.5 - 45.5 %) 15.6 L [place] % (Auto) (5.5 - 11.7 %) 8.0 Eos % (Auto) (0.9 - 2.9 %) 5.5 H Baso % (Auto) (0.2 - 1.0 %) 0.6 Neut # (Auto) (2.2 - 4.8 x10 3/uL) 4.42 Lymph # (Auto) (1.3 - 2.9 x10 3/uL) 0.99 L [place] # (Auto) (0.3 - 0.8 x10 3/uL) 0.51 Eos # (Auto) (0.0 - 0.2 x10 3/uL) 0.35 H Baso # (Auto) (0.0 - 0.1 x10 3/uL) 0.04 Immature Gran % (0.0 - 2.0 %) 0.5 Nucleated RBC % (0 - 1.0 %) 0.0 Microbiology Date/Time Procedure - Status Source Growth 10/03 226 Sputum Culture - COMP SPUTUM 10/03 226 Gram Stain - COMP SPUTUM Radiology data: Recent Impressions: RADIOLOGY - XR CHEST 1 V 10/02 1928 Report Impression - Status: SIGNED Entered: 10/02/20222224 IMPRESSION: Persistence of cavitary lesion in the left upper lobe with both infectious and neoplastic entities in the differential. More extensive opacification/consolidation in the left upper lobe of concern for possible evolving pneumonia Evolving small left-sided pleural effusion Impression By: Tanja - Kimmie Sung MD Diagnosis, Assessment Plan Free Text A P: #Active pulmonary TB #A.fib #HTN #DM #CAD -Patient reported diarrhea, N/V has resolved after coming here -start RIPE thereapy with rifabutin instead of rifampin and drug interaction with eliquis -might need to replace INH for moxifloxacin as there is national shortage of INH ?? -TB and TB medication education in [place] [facility] Patient is set up with health department nurse Devora Ruvalcaba [phone], d/w primary will follow while here. Plan d/w attending Raghav Christianson 10/03/22 1912: Diagnosis, Assessment Plan Free Text A P: Patient seen and examined. Agree with the above plan. We will continue rifabutin instead of rifampin due to drug drug interaction with Eliquis. We will notify public health about this change in right therapy. at 1357 at 1913 RPT #:[id number] END OF REPORT [facility] 2022-10-03 07:59:00 [id number] [facility] [address] [facility], [address] [place] [address] PATIENT NAME: SEYMOUR SNOW ADMIT DATE: 09/27/22 ACCOUNT NO: [id number] ROOM NO: [place] [id number] AGE: 72 REPORT TYPE: eECHOCARDIOGRAM REPORT. SEX: M ADMITTING PHYSICIAN:Pepito Luna MD ATTENDING [place]IC[place] [address] [place] [address] Transthoracic Echocardiogram Patient: Seymour Snow Study Date: 10/02/2022 BP: 116 / 62 Location: [facility] URN: [id number] : 1950 Age: 72 Height: 74 in / 188 cm Gender: M Weight: 219.5 lb / 99.8 kg BMI/BSA: 28.2 kg/m 2 / 2.3 m 2 *Ordering Physician: * Viola Mott R3 *Interpreting Physician: * William Yee *Needle Polisher: * Lani Fields RCS Indications: SOB, FLUID OVERLOAD. Study data: Transthoracic echocardiogram. Procedure: Transthoracic echocardiography was performed. Images were obtained using a [id number] cardiac ultrasound machine. Complete 2D, complete spectral Doppler, and color Doppler. Patient status: Inpatient. Patient room number: ICU06. Study status: Stat. Findings Left ventricle: The cavity size is normal. Wall thickness is mildly increased. Systolic function is normal. The estimated ejection fraction is 55-60%. Wall motion is normal; there are no regional wall motion abnormalities. Unable to assess diastolic function due to atrial fibrillation. Right ventricle: The cavity size is normal. Systolic function is PATIENT NAME: SEYMOUR SNOW normal. Left atrium: The atrium is mildly dilated. Right atrium: The atrium is normal in size. Aorta: Aortic root: The aortic root is ectatic (3.9 cm). Aortic valve: The valve is trileaflet. The leaflets are moderately calcified. Aortic sclerosis without stenosis. There is trivial regurgitation. Mitral valve: The annulus is mildly calcified. There is no evidence of stenosis. There is trivial regurgitation. Tricuspid valve: There is trivial regurgitation. Pulmonic valve: There is trivial regurgitation. Pericardium: There is no pericardial effusion. Systemic veins: Inferior vena cava: The vessel is normal in size. Measurements Left ventricle Value Ref FALGUNI, LAX 5.8 cm 4.2 - 5.8 ESD, LAX 4.2 cm 2.5 - 4.0 ESD/bsa, LAX 1.8 cm/m 2 1.3 - 2.1 FS, LAX 28 % 25 - 43 PW, ED 1.2 cm 0.6 - 1.0 PW, ES 1.6 cm IVS/PW, ED 0.87 EF 54 % 52 - 72 LVOT Value Ref Diam, S 2.59 cm Area 5.3 cm 2 Peak evelyn, S 0.73 m/sec Mean evelyn, S 0.52 m/sec VTI, S 17.1 cm Peak grad, S 2 mm Hg Mean grad, S 1 mm Hg SV 90 ml SV/bsa 39 ml/m 2 Ventricular septum Value Ref IVS, ED 1.1 cm 0.6 - 1.0 IVS, ES 1.2 cm Right ventricle Value Ref FALGUNI, LAX 4.0 cm Pressure, S 42 mm Hg Left atrium Value Ref AP dim, ES 3.74 cm 3.00 - 4.00 Vol/bsa, ES, 1-p A4C 40 ml/m 2 12 - 37 Vol, ES, 2-p 84 ml Vol/bsa, ES, 2-p 36 ml/m 2 16 - 34 Vol/bsa, ES, A/L 28 ml/m 2 16 - 34 PATIENT NAME: SEYMOUR SNOW Aortic valve Value Ref Peak v, S 2.54 m/sec Mean v, S 1.76 m/sec VTI, S 49.7 cm Mean grad, S 13.9 mm Hg Peak grad, S 25.8 mm Hg LVOT/AV, VTI ratio 0.34 ELVER, VTI 2.04 cm 2 LVOT/AV, Vpeak ratio 0.29 ELVER, Vmax 1.64 cm 2 Mitral valve Value Ref Peak E 0.48 m/sec Peak A 1.01 m/sec Decel time 327 ms Peak E/A ratio 0.47 Tricuspid valve Value Ref TR peak v 2.9 m/sec <=2.8 Peak RV-RA grad, S 34 mm Hg Aortic root Value Ref Root diam 3.9 cm <4.4 Ascending aorta Value Ref AAo AP diam, S 3.3 cm AAo AP diam/bsa, S 1.4 cm/m 2 Pulmonary artery Value Ref Pressure, S 36.6 mm Hg Systemic veins Value Ref Estimated CVP 8 mm Hg Conclusions Summary: 1. Left ventricle: The cavity size is normal. Wall thickness is mildly increased. Systolic function is normal. The estimated ejection fraction is 55-60%. Wall motion is normal; there are no regional wall motion abnormalities. Unable to assess diastolic function due to atrial fibrillation. 2. Right ventricle: The cavity size is normal. Systolic function is normal. 3. Left atrium: The atrium is mildly dilated. 4. Right atrium: The atrium is normal in size. 5. Aortic root: The aortic root is ectatic (3.9 cm). 6. Mitral valve: The annulus is mildly calcified. 7. Pericardium, extracardiac: There is no pericardial effusion. 8. Inferior vena cava: The vessel is normal in size. Prepared and electronically signed by PATIENT NAME: JAYLA SARAHSEYMOUR William Yee 10/03/2022 07:58 at 0759 PATIENT NAME: JAYLA SARAHSEYMOUR [facility] 2022-10-03 07:31:00 [facility] Critical Care Progress Note REPORT#:[id number] REPORT STATUS: Signed DATE:10/03/22 TIME: 730 PATIENT: JAYLA SARAHSEYMOUR UNIT #: [id number] ROOM/BED: [place] [id number] : 48 AGE: 72 SEX: M ATTEND: Marlyn Zee MD ADM AUTHOR: Tim Castañeda MD R1 * ALL edits or amendments must be made on the electronic/computer document * Tim Castañeda 10/03/22 0731: Subjective Chief complaint: palpitations HPI: afib rate controlled Review of Systems Unable to obtain due to: pt sleeping comfortably Objective Physical Exam General appearance: sleeping comfortably Head/eyes: atraumatic, clear cornea Cardiovascular: irregular rhythm, tachycardia, no thrill, hypotension Respiratory: aerating well, clear to auscultation, symmetric expansion, no distress Abdomen: soft, non-tender, normal bowel sounds Extremities: moves all, normal capillary refill Musculoskeletal normal inspection, painless range of motion Neuro/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: alert, oriented X 3 Skin: dry, intact Diagnosis, Assessment Plan Free text A P: Seymour Selby is a 72 yo M w hx HTN, DM, CAD, afib on eliquis, and recent dx of pulmonary TB presenting with acute atrial flutter w rvr and hypotension alongside N/V/D. NEURO acute and oriented appears at baseline CV # atrial flutter w rvr # hypotension - echo pending - K > 4 Mag > 2 - cont tele monitoring - avoiding amio due to rifampin dosing - converted to SR initially - Patient reverted back to AFlutter with RVR. Will give IV digoxin 0.5 mg now per cardio recs - increase lopressor to 25 mg po q8h. - Due to active pulm TB, he is not a candidate for BENJI/DCCV - appreciate cardiology and EP recs - cont eliquis - unsure if he has been compliant on eliquis, so will need to rule out LV thrombus - has been fluid resuscitated PULM # active pulmonary tuberculosis - recently diagnosed at [facility] - on ripe therapy. Using rifabutin - may need to replace inh for moxi due to shortage - has health department rn assigned [facility] phone number [phone] - appreciate ID recs RENAL avoid nephrotoxic meds strict is and os # hypomagnesemia - replete as tolerated - has received multiple bags of magnesium - nephro was consulted pending recs GI # gastroenteritis # intractable nausea and vomiting was on anti emetics, clear liquid diet - now on soft diet, advance as tolerated ID # tuberculosis - on ripe and b6 - ID following - will get sputum cx F: Soft A: prn S: none T: eliquis HOB45 U: none G: MDSS S: 5L NC B: prn I: PIV's D: RIPE ID following for TB medication RIPE with Rifabutin and possible Moxifloxacin. On 5L NC. Downgraded pending bed availability. Case discussed w Sachin Nance 10/04/22 0810: Attestations Physician Attestation Agree w/findings plan: Agree with the findings and plan as documented by resident at 1053 at 0811 RPT #:[id number] END OF REPORT [facility] 2022-10-02 15:39:00 [facility] Critical Care Progress Note REPORT#:[id number] REPORT STATUS: Signed DATE:10/02/22 TIME: 153 PATIENT: SEYMOUR SNOW UNIT #: [id number] ROOM/BED: [address] : 48 AGE: 72 SEX: M ATTEND: Manasa Dimas MD ADM AUTHOR: Billie Laguna MD R3 * ALL edits or amendments must be made on the electronic/computer document * Billie Laguna 10/02/22 1539: Subjective Chief complaint: palpitations HPI: converted back to SR at 9:45 pm last night Objective General VS/I O Last Documented: Result Date Time Temp 36.7 10/02 1200 Pulse Ox 96 10/02 0805 FiO2 44 10/02 0805 O2 Delivery Nasal cannula 10/02 0805 O2 Flow Rate 6 10/02 0805 B/P 116/62 10/02 0630 B/P Mean 83 10/02 0630 Pulse 67 10/02 0630 Resp 22 10/02 0630 24 hour I O ending at 0700: 10/02 0700 10/01 1900 Intake Total 700.00 1750.00 Output Total 475 Balance 225.00 1750.00 Intake, IV 500.00 850.00 Intake, Oral 200 900 Intake, Oral 0 Supplement Number Voids 3 Output, Urine 475 Patient 111 kg Weight Weight Bed scale Measurement Method PATIENT WEIGHT: Weight (lb): 244 Weight (oz): 11.41 Weight (kg): 111.000 Medications: Active Meds + DC'd Last 24 Hrs Digoxin (LANOXIN) 0.125 MG DAILY PO (UNV) Digoxin (LANOXIN) 0.25 MG NOW ONE PO (CANr) Digoxin (LANOXIN) 0.5 MG ONCE ONE IV (UNV) Digoxin (LANOXIN) 0.125 MG ONCE ONE IV (CANr) Metoprolol Tartrate (LOPRESSOR) 25 MG Q8HR PO (UNVr) Mupirocin (BACTROBAN 2% 22 GM OINTMENT) 1 APPLIC BID NASAL Magnesium Oxide (MAG-OX ) 400 MG ONCE ONE PO (DC) Digoxin (LANOXIN) 0.25 MG Q4HR IV (DC) Digoxin (LANOXIN) 0.5 MG ONCE ONE IV (DC) Metoprolol Tartrate (LOPRESSOR) 2.5 MG Q4H PRN PRN IV Perflutren Lipid Microsphere (DEFINITY) DIRECTED ONCE PRN IV Sodium Chloride (NACL 0.9% 10ML SYRINGE) DIRECTED ONCE PRN IV Sodium Chloride (SODIUM CHLORIDE FLUSH) 5 ML ONCE PRN IV Amiodarone HCl (NEXTERONE 150 MG/100 ML BAG) 100 ML ONCE ONE IV (DC) Magnesium Sulfate (MAGNESIUM SULFATE 2GM) 50 ML ONCE ONE IV (DC) Perflutren Lipid Microsphere (DEFINITY) DIRECTED ONCE PRN IV (DC) Sodium Chloride (NACL 0.9% 10ML SYRINGE) DIRECTED ONCE PRN IV (DC) Sodium Chloride (SODIUM CHLORIDE FLUSH) 5 ML ONCE PRN IV (DC) Albuterol/Ipratropium (DUONEB 3MG-0.5MG/3 ML) 3 ML RTQ6H INH Budesonide (PULMICORT RESPULES) 0.25 MG RTBID INH Non-Formulary Medication (NON-FORMULARY) RIFABUTIN 300 MG PO DAILY DAILY PO Ethambutol HCl (MYAMBUTOL) 1,600 MG DAILY PO Isoniazid (ISONIAZID,INH) 300 MG DAILY PO Pyrazinamide (PYRAZINAMIDE) 1,500 MG DAILY PO Promethazine HCl (PHENERGAN) 12.5 MG BID PO Loperamide HCl (IMODIUM) 2 MG BID PRN PRN PO Thiamine HCl (THIAMINE ) 500 MG Q8HR IV (CKD) Sodium Chloride (SODIUM CHLORIDE 0.9%) 250 ML Pyridoxine HCl (VITAMIN B-6) 50 MG DAILY PO Morphine Sulfate (morphine) 2 MG Q4H PRN PRN IV Dextrose/Water (DEXTROSE 50% SYR) 25 ML ASDIR PRN IV (CKD) Glucagon (GLUCAGON) 1 MG ASDIR PRN IM Hydromorphone HCl (DILAUDID) 1 MG Q6H PRN PRN PO Insulin Human Lispro (HumaLOG) MODERATE DOSE SCALE ASDIR SUBQ Hydralazine HCl (APRESOLINE) 10 MG Q6H PRN PRN IV Nitroglycerin (NITROQUICK BOTTLE) 0.4 MG Q5M PRN PRN SL Ondansetron HCl (ZOFRAN 4 MG/2 ML INJ) 4 MG Q4H PRN PRN IV Apixaban (ELIQUIS) 5 MG BID PO Metoprolol Tartrate (LOPRESSOR) 12.5 MG BID PO (DCr) Dietitian nutrition assessment The data set between the solid lines has been imported from the dietitian's assessment. BMI Calculated: 31.4 Nutrition related diagnosis: Nutrition diagnosis details: Nutrition problem: Nutrition etiology: Nutrition signs and symptoms: Nutrition prescription: Dietitian name: Assessment completed: Physical Exam General appearance: alert, awake, oriented Head/eyes: atraumatic, clear cornea Cardiovascular: irregular rhythm, tachycardia, no thrill, hypotension Respiratory: aerating well, clear to auscultation, symmetric expansion, no distress Abdomen: soft, non-tender, normal bowel sounds Extremities: moves all, normal capillary refill Musculoskeletal normal inspection, painless range of motion Neuro/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: alert, oriented X 3 Skin: dry, intact Results Findings/data: Laboratory Tests 10/02 10/02 10/02 10/01 10/01 0833 0014 0013 2100 2025 Chemistry Sodium (137 - 145 mmol/L) 135 L Potassium (3.4 - 5.0 mmol/L) 4.2 Chloride (98 - 107 mmol/L) 104 Carbon Dioxide (22 - 30 mmol/L) 30 Anion Gap 5 BUN (9 - 20 mg/dL) 14 Creatinine (0.7 - 1.3 mg/dL) 0.8 Glomerular Filtr Rate (mL/min) 93 Glucose (74 - 106 mg/dL) 123 H POC Glucose (74 - 106 MG/DL) 99 124 H 140 H 154 H Calcium (8.4 - 10.2 mg/dL) 8.3 L Magnesium (1.6 - 2.3 mg/dL) 1.5 L Total Bilirubin (0.2 - 1.3 mg/dL) 0.9 Conjugated Bilirubin (0 - 0.3 mg/dL) 0 Unconjugated Bilirubin (0 - 1.1 mg/dL) 0.7 AST (15 - 46 U/L) 33 ALT (0 - 49 U/L) 21 Total Alk Phosphatase (38 - 126 U/L) 97 Troponin I (0.012 - 0.033 ng/mL) < 0.012 L Total Protein (6.3 - 8.2 g/dL) 6.1 L Albumin (3.5 - 5.0 g/dL) 2.7 L Specimen Hemolysis (0 - 100 Index/DL) < 15 10/01 10/01 1709 1709 Chemistry Lactic Acid (0.7 - 2.0 mmol/L) 1.0 Troponin I (0.012 - 0.033 ng/mL) < 0.012 L Laboratory Tests 10/02 0013 Hematology WBC (5.0 - 12.0 x10 3/uL) 8.7 RBC (4.70 - 6.10 x10 6/uL) 3.63 L Hgb (14.0 - 18.0 g/dL) 11.1 L Hct (37.0 - 49.0 %) 33.0 L MCV (80 - 94 fL) 91 MCH (27 - 31 pg) 30.6 MCHC (33 - 37 g/dL) 33.6 RDW (11.5 - 15.5 %) 13.3 Plt Count (130 - 400 x10 3/uL) 206 MPV (9.4 - 16.4 fL) 9.4 Neut % (Auto) (43 - 65 %) 73.7 H Lymph % (Auto) (20.5 - 45.5 %) 12.1 L [place] % (Auto) (5.5 - 11.7 %) 9.7 Eos % (Auto) (0.9 - 2.9 %) 3.6 H Baso % (Auto) (0.2 - 1.0 %) 0.6 Neut # (Auto) (2.2 - 4.8 x10 3/uL) 6.43 H Lymph # (Auto) (1.3 - 2.9 x10 3/uL) 1.06 L [place] # (Auto) (0.3 - 0.8 x10 3/uL) 0.85 H Eos # (Auto) (0.0 - 0.2 x10 3/uL) 0.31 H Baso # (Auto) (0.0 - 0.1 x10 3/uL) 0.05 Immature Gran % (0.0 - 2.0 %) 0.3 Nucleated RBC % (0 - 1.0 %) 0.0 Laboratory Tests 10/02/22 0013: [Embedded Image Not Available] Microbiology: 10/02 1142 SPUTUM: Sputum Culture - ORD 10/02 1142 SPUTUM: Gram Stain - ORD 10/01 2120 NASAL: MRSA Screen - RES 10/01 171 BLOOD: Blood Culture - RES 10/01 170 BLOOD: Blood Culture - RES Diagnosis, Assessment Plan Free text A P: Seymour Selby is a 72 yo M w hx afib on eliquis, T2DM, HTN and recent dx of pulmonary TB presenting with acute atrial flutter w rvr and hypotension NEURO acute and oriented appears at baseline CV # atrial flutter w rvr # hypotension - echo pending - K > 4 Mag > 2 - cont tele monitoring - avoiding amio due to rifampin dosing - converted to SR last night -Patient reverted back to AFlutter with RVR today. Will give IV digoxin 0.5 mg now per cardio recs -increase lopressor to 25 mg po q8h. - Due to active pulm TB, he is not a candidate for BENJI/DCCV - appreciate cardiology and EP recs - cont eliquis - unsure if he has been compliant on eliquis, so will need to rule out LV thrombus - has been fluid resuscitated PULM # active pulmonary tuberculosis - recently diagnosed at [facility] - on ripe therapy. Using rifabutin - may need to replace inh for moxi due to shortage - has health department rn assigned [employer] phone number [phone] - appreciate ID RECS RENAL avoid nephrotoxi meds strict is and os # hypomagnesemia - replete as tolerated - has received multiple bags of magnesium - nephro was consulted pending recs GI # gastroenteritis # intractable nausea and vomiting was on anti emetics , clear liquid diet - now on soft diet, advance as tolerated ID # tuberculosis - on ripe and b6 - ID following - will get sputum cx F: Soft A: prn S: none T: eliquis HOB45 U: none G: MDSS S: room air B: prn I: PIV's D: RIPE Case discussed w Nishant Avery 10/03/22 0624: Attestations Attestation needed: teaching physician Teaching Physician Attestation F/U visit w/ resident: I saw the patient with the resident and . . . agree with the resident's findings and plan. Back to sinus rhythm Avoiding amio as possible On RIPE will plan downgrade at 1643 at 0625 RPT #:[id number] END OF REPORT [facility] 2022-10-02 12:52:00 [facility] Cardiology Progress Note REPORT#:[id number] REPORT STATUS: Signed DATE:10/02/22 TIME: 1252 PATIENT: SEYMOUR SNOW UNIT #: [id number] ROOM/BED: [address] : 48 AGE: 72 SEX: M ATTEND: Manasa Dimas MD ADM AUTHOR: Joselito Thomas MD * ALL edits or amendments must be made on the electronic/computer document * See Addendum Subjective Chief complaint: - converted to NSR last night Tele NSR HPI: Mr. Dickerson is a 72yo with history of parox AF, recent diagnosis of cavitary TB with admitted for nausea vomiting was ntoed to go into AF and then flutter and cardiology is consulted. HR has been running in the mid 150s. He is on Eliquis and Metoprolol as an outpatient. Objective General VS/I O: 24 hour I O ending at 0700: 10/02 0700 10/01 1900 Intake Total 700.00 1750.00 Output Total 475 Balance 225.00 1750.00 Intake, IV 500.00 850.00 Intake, Oral 200 900 Intake, Oral 0 Supplement Number Voids 3 Output, Urine 475 Patient 111 kg Weight Weight Bed scale Measurement Method Vital Signs: Date Time Temp Pulse Resp B/P B/P Pulse O2 O2 Flow FiO2 Mean Ox Delivery Rate 10/02 1200 36.7 10/02 0805 96 Nasal 6 44 cannula 10/02 0800 36.8 / 0630 67 22 116/62 83 84 05/17 0601 70 33 149/63 91 84 05/ 0545 67 21 135/66 92 97 05/17 0530 66 22 121/64 88 96 05/17 0515 66 27 131/61 88 96 05/17 0500 64 20 124/58 84 97 05/17 0445 64 37 112/61 81 96 05/17 0430 65 24 108/59 78 96 05/17 0415 65 35 117/61 83 96 05/ 0400 36.9 Nasal 6 cannula / 0400 64 21 106/58 79 98 05/17 0355 67 20 127/60 86 99 05/17 0345 67 20 152/67 96 87 05/17 0330 64 24 113/59 80 96 05/17 0316 69 27 123/61 84 92 05/17 0301 65 20 116/57 80 96 05/17 0245 65 24 103/58 78 96 05/17 0231 65 22 117/53 77 97 05/17 0215 65 21 92/55 72 97 05/17 0145 65 22 88/54 66 98 05/17 0130 66 21 92/56 70 95 05/17 0100 66 20 101/59 77 96 05/17 0045 66 21 112/56 78 97 05/17 0030 65 21 90/57 69 98 05/17 0015 65 19 96/60 73 98 05/17 0000 37.1 Nasal 6 cannula 10/02 0000 63 20 126/60 87 99 05/16 2345 63 24 120/66 84 99 05/16 2330 63 22 106/59 77 99 05/16 2321 63 22 114/60 79 100 05/16 2303 62 20 89/57 67 99 05/16 2245 63 22 93/57 70 99 05/16 2230 62 17 97/56 72 100 / 2215 62 20 93/55 69 100 10/01 2200 62 21 82/50 62 97 10/01 2146 59 87/56 63 95 10/01 2136 111 88/54 64 97 10/01 2115 150 85/62 70 96 10/01 2109 153 83/56 65 97 10/01 2054 Nasal 6 cannula 10/01 2049 Nasal 6 cannula 10/01 2049 37.0 Nasal 6 cannula 10/01 2026 36.7 152 20 107/73 84.6 95 Nasal 6 cannula 10/01 1755 37.3 147 18 110/71 84.0 93 Nasal 6 cannula 10/01 1706 37.6 143 16 93/59 70.3 93 Nasal 4 cannula 10/01 1631 152 16 88/52 64 10/01 1509 37.3 109 16 95/59 70.6 92 Nasal 3 cannula PATIENT WEIGHT: Weight (lb): 244 Weight (oz): 11.41 Weight (kg): 111.000 Medications: Active Meds + DC'd Last 24 Hrs Mupirocin (BACTROBAN 2% 22 GM OINTMENT) 1 APPLIC BID NASAL Magnesium Oxide (MAG-OX ) 400 MG ONCE ONE PO (DC) Digoxin (LANOXIN) 0.25 MG Q4HR IV (DC) Digoxin (LANOXIN) 0.5 MG ONCE ONE IV (DC) Metoprolol Tartrate (LOPRESSOR) 2.5 MG Q4H PRN PRN IV Perflutren Lipid Microsphere (DEFINITY) DIRECTED ONCE PRN IV Sodium Chloride (NACL 0.9% 10ML SYRINGE) DIRECTED ONCE PRN IV Sodium Chloride (SODIUM CHLORIDE FLUSH) 5 ML ONCE PRN IV Amiodarone HCl (NEXTERONE 150 MG/100 ML BAG) 100 ML ONCE ONE IV (DC) Magnesium Sulfate (MAGNESIUM SULFATE 2GM) 50 ML ONCE ONE IV (DC) Perflutren Lipid Microsphere (DEFINITY) DIRECTED ONCE PRN IV (DC) Sodium Chloride (NACL 0.9% 10ML SYRINGE) DIRECTED ONCE PRN IV (DC) Sodium Chloride (SODIUM CHLORIDE FLUSH) 5 ML ONCE PRN IV (DC) Albuterol/Ipratropium (DUONEB 3MG-0.5MG/3 ML) 3 ML RTQ6H INH Budesonide (PULMICORT RESPULES) 0.25 MG RTBID INH Non-Formulary Medication (NON-FORMULARY) RIFABUTIN 300 MG PO DAILY DAILY PO Ethambutol HCl (MYAMBUTOL) 1,600 MG DAILY PO Isoniazid (ISONIAZID,INH) 300 MG DAILY PO Pyrazinamide (PYRAZINAMIDE) 1,500 MG DAILY PO Metoprolol Tartrate (LOPRESSOR) 5 MG Q5M PRN PRN IV (DC) Promethazine HCl (PHENERGAN) 12.5 MG BID PO Loperamide HCl (IMODIUM) 2 MG BID PRN PRN PO Thiamine HCl (THIAMINE ) 500 MG Q8HR IV (CKD) Sodium Chloride (SODIUM CHLORIDE 0.9%) 250 ML Pyridoxine HCl (VITAMIN B-6) 50 MG DAILY PO Morphine Sulfate (morphine) 2 MG Q4H PRN PRN IV Dextrose/Water (DEXTROSE 50% SYR) 25 ML ASDIR PRN IV (CKD) Glucagon (GLUCAGON) 1 MG ASDIR PRN IM Hydromorphone HCl (DILAUDID) 1 MG Q6H PRN PRN PO Insulin Human Lispro (HumaLOG) MODERATE DOSE SCALE ASDIR SUBQ Hydralazine HCl (APRESOLINE) 10 MG Q6H PRN PRN IV Nitroglycerin (NITROQUICK BOTTLE) 0.4 MG Q5M PRN PRN SL Ondansetron HCl (ZOFRAN 4 MG/2 ML INJ) 4 MG Q4H PRN PRN IV Apixaban (ELIQUIS) 5 MG BID PO Metoprolol Tartrate (LOPRESSOR) 12.5 MG BID PO Physical Exam Head/Eyes: atraumatic, EOMI Neck: full range of motion Cardiovascular: CV assessment: tachycardia Respiratory: decreased breath sounds Abdomen: soft, non-tender Lower extremity: LE assessment: no edema Neuro/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: oriented X 3 Diagnosis, Assessment Plan Free Text DxA P Notes Free Text DxA P Notes: 1. Atrial flutter - continue metoprolol for rate control - Amiodarone is problematic in the setting of rifampin dosing - continue metoprolol 12.5 mg po bid - conitnue IV fluid resuscitation for now - continue Eliquis - f/u echo - continue eliquis Siva dias for consultation, will follow [facility] at 1254 Addendum 1: 10/02/22 1624 by Joselito Thomas MD Patient reverted back to AFlutter with RVR. Will give IV digoxin 0.5 mg now and increase lopressor to 25 mg po q8h. Due to active pulm TB, she is not a candidate for BENJI/DCCV at 1624 RPT #:[id number] [facility] OF RE[facility] Infectious Dis. Progress Note REPORT#:[id number] REPORT STATUS: Signed DATE:10/02/22 TIME: 927 PATIENT: SEYMOUR SNOW UNIT #: [id number] ROOM/BED: [address] : 48 AGE: 72 SEX: M ATTEND: Marlyn Zee MD ADM AUTHOR: Carol Jimenez MD R3 * ALL edits or amendments must be made on the electronic/computer document * Carol Jimenez 10/02/22927: Subjective Comments: patient was upgraded to ICU yesterday evening for atrial flutter and hypotension He was fluid resucited, not required pressor and converted to sinus rythm after one iv digoxin Patient was seen and examined at bedside today Afebrile, now requiring 6 L NC Patient reported SOB, PRITCHARD and productive cough Objective General VS/I O: Vital Signs Date Temp Pulse Resp B/P B/P Mean Pulse Ox FiO2 10/01-10/02 98.1-99.7 59-153 16-37 82-152/50-73 62-96 84-100 44 Last Documented: Result Date Time Pulse Ox 96 10/02 0805 FiO2 44 10/02 0805 O2 Delivery Nasal cannula 10/02 0805 O2 Flow Rate 6 10/02 0805 Temp 98.3 10/02 0800 B/P 116/62 10/02 0630 B/P Mean 83 10/02 0630 Pulse 67 10/02 0630 Resp 22 10/02 0630 Vital Signs: Date Time Temp Pulse Resp B/P B/P Pulse O2 O2 Flow FiO2 Mean Ox Delivery Rate 05/17 0805 96 Nasal 6 44 cannula 05/17 0800 98.3 05/17 0630 67 22 116/62 83 84 05/17 0601 70 33 149/63 91 84 05/17 0545 67 21 135/66 92 97 05/17 0530 66 22 121/64 88 96 05/17 0515 66 27 131/61 88 96 05/17 0500 64 20 124/58 84 97 05/17 0445 64 37 112/61 81 96 05/17 0430 65 24 108/59 78 96 05/17 0415 65 35 117/61 83 96 05/17 0400 98.4 Nasal 6 cannula 05/17 0400 64 21 106/58 79 98 05/17 0355 67 20 127/60 86 99 05/17 0345 67 20 152/67 96 87 05/17 0330 64 24 113/59 80 96 05/17 0316 69 27 123/61 84 92 05/17 0301 65 20 116/57 80 96 05/17 0245 65 24 103/58 78 96 05/17 0231 65 22 117/53 77 97 05/17 0215 65 21 92/55 72 97 05/17 0145 65 22 88/54 66 98 05/17 0130 66 21 92/56 70 95 05/17 0100 66 20 101/59 77 96 05/17 0045 66 21 112/56 78 97 05/17 0030 65 21 90/57 69 98 05/17 0015 65 19 96/60 73 98 05/17 0000 98.7 Nasal 6 cannula 05/17 0000 63 20 126/60 87 99 05/16 2345 63 24 120/66 84 99 05/16 2330 63 22 106/59 77 99 05/16 2321 63 22 114/60 79 100 05/16 2303 62 20 89/57 67 99 05/16 2245 63 22 93/57 70 99 05/16 2230 62 17 97/56 72 100 05/16 2215 62 20 93/55 69 100 05/16 2200 62 21 82/50 62 97 05/16 2146 59 87/56 63 95 05/16 2136 111 88/54 64 97 05/16 2115 150 85/62 70 96 05/16 2109 153 83/56 65 97 05/16 2055 Nasal 6 cannula 10/01 2049 Nasal 6 cannula 10/01 2049 98.6 Nasal 6 cannula 10/01 2026 98.1 152 20 107/73 84.6 95 Nasal 6 cannula 10/01 175 99.1 147 18 110/71 84.0 93 Nasal 6 cannula 10/01 1706 99.7 143 16 93/59 70.3 93 Nasal 4 cannula 10/01 1631 152 16 88/52 64 10/01 1509 99.1 109 16 95/59 70.6 92 Nasal 3 cannula 24 hour I O ending at 0700: 10/02 0700 10/01 1900 Intake Total 700.00 1750.00 Output Total 475 Balance 225.00 1750.00 Intake, IV 500.00 850.00 Intake, Oral 200 900 Intake, Oral 0 Supplement Number Voids 3 Output, Urine 475 Patient 111 kg Weight Weight Bed scale Measurement Method PATIENT WEIGHT: Weight (lb): 244 Weight (oz): 11.41 Weight (kg): 111.000 Medications: Active Meds + DC'd Last 24 Hrs Mupirocin (BACTROBAN 2% 22 GM OINTMENT) 1 APPLIC BID NASAL Magnesium Oxide (MAG-OX ) 400 MG ONCE ONE PO (DC) Digoxin (LANOXIN) 0.25 MG Q4HR IV (DC) Digoxin (LANOXIN) 0.5 MG ONCE ONE IV (DC) Metoprolol Tartrate (LOPRESSOR) 2.5 MG Q4H PRN PRN IV Perflutren Lipid Microsphere (DEFINITY) DIRECTED ONCE PRN IV Sodium Chloride (NACL 0.9% 10ML SYRINGE) DIRECTED ONCE PRN IV Sodium Chloride (SODIUM CHLORIDE FLUSH) 5 ML ONCE PRN IV Amiodarone HCl (NEXTERONE 150 MG/100 ML BAG) 100 ML ONCE ONE IV (DC) Magnesium Sulfate (MAGNESIUM SULFATE 2GM) 50 ML ONCE ONE IV (DC) Perflutren Lipid Microsphere (DEFINITY) DIRECTED ONCE PRN IV (DC) Sodium Chloride (NACL 0.9% 10ML SYRINGE) DIRECTED ONCE PRN IV (DC) Sodium Chloride (SODIUM CHLORIDE FLUSH) 5 ML ONCE PRN IV (DC) Albuterol/Ipratropium (DUONEB 3MG-0.5MG/3 ML) 3 ML RTQ6H INH Budesonide (PULMICORT RESPULES) 0.25 MG RTBID INH Non-Formulary Medication (NON-FORMULARY) RIFABUTIN 300 MG PO DAILY DAILY PO Ethambutol HCl (MYAMBUTOL) 1,600 MG DAILY PO Isoniazid (ISONIAZID,INH) 300 MG DAILY PO Pyrazinamide (PYRAZINAMIDE) 1,500 MG DAILY PO Metoprolol Tartrate (LOPRESSOR) 5 MG Q5M PRN PRN IV (DC) Promethazine HCl (PHENERGAN) 12.5 MG BID PO Loperamide HCl (IMODIUM) 2 MG BID PRN PRN PO Thiamine HCl (THIAMINE ) 500 MG Q8HR IV (CKD) Sodium Chloride (SODIUM CHLORIDE 0.9%) 250 ML Pyridoxine HCl (VITAMIN B-6) 50 MG DAILY PO Morphine Sulfate (morphine) 2 MG Q4H PRN PRN IV Dextrose/Water (DEXTROSE 50% SYR) 25 ML ASDIR PRN IV (CKD) Glucagon (GLUCAGON) 1 MG ASDIR PRN IM Hydromorphone HCl (DILAUDID) 1 MG Q6H PRN PRN PO Insulin Human Lispro (HumaLOG) MODERATE DOSE SCALE ASDIR SUBQ Hydralazine HCl (APRESOLINE) 10 MG Q6H PRN PRN IV Nitroglycerin (NITROQUICK BOTTLE) 0.4 MG Q5M PRN PRN SL Ondansetron HCl (ZOFRAN 4 MG/2 ML INJ) 4 MG Q4H PRN PRN IV Apixaban (ELIQUIS) 5 MG BID PO Metoprolol Tartrate (LOPRESSOR) 12.5 MG BID PO Physical Exam General appearance: sleeping comfortably, alert, awake, oriented Head/Eyes: atraumatic, clear cornea, EOMI, PERRLA Neck: full range of motion, supple/no meningismus Cardiovascular: normal heart sounds, regular rate rhythm, no murmur Respiratory: crackles, on oxygen, symmetric expansion Abdomen: non-tender, normal bowel sounds, soft Extremities: moves all, no edema Neuro/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: alert, oriented X 3, normal speech Results Findings/Data: Laboratory Tests 10/02 10/02 10/02 10/01 10/01 0833 0014 0013 2100 202 Chemistry Sodium (137 - 145 mmol/L) 135 L Potassium (3.4 - 5.0 mmol/L) 4.2 Chloride (98 - 107 mmol/L) 104 Carbon Dioxide (22 - 30 mmol/L) 30 Anion Gap 5 BUN (9 - 20 mg/dL) 14 Creatinine (0.7 - 1.3 mg/dL) 0.8 Glomerular Filtr Rate (mL/min) 93 Glucose (74 - 106 mg/dL) 123 H POC Glucose (74 - 106 MG/DL) 99 124 H 140 H 154 H Calcium (8.4 - 10.2 mg/dL) 8.3 L Magnesium (1.6 - 2.3 mg/dL) 1.5 L Total Bilirubin (0.2 - 1.3 mg/dL) 0.9 Conjugated Bilirubin (0 - 0.3 mg/dL) 0 Unconjugated Bilirubin (0 - 1.1 mg/dL) 0.7 AST (15 - 46 U/L) 33 ALT (0 - 49 U/L) 21 Total Alk Phosphatase (38 - 126 U/L) 97 Troponin I (0.012 - 0.033 ng/mL) < 0.012 L Total Protein (6.3 - 8.2 g/dL) 6.1 L Albumin (3.5 - 5.0 g/dL) 2.7 L Specimen Hemolysis (0 - 100 Index/DL) < 15 10/01 10/01 10/01 10/01 10/01 1709 1709 1545 1506 1431 Chemistry Sodium (137 - 145 mmol/L) 137 Potassium (3.4 - 5.0 mmol/L) 4.6 Chloride (98 - 107 mmol/L) 104 Carbon Dioxide (22 - 30 mmol/L) 28 Anion Gap 10 BUN (9 - 20 mg/dL) 14 Creatinine (0.7 - 1.3 mg/dL) 0.8 Glomerular Filtr Rate (mL/min) 93 Glucose (74 - 106 mg/dL) 139 H POC Glucose (74 - 106 MG/DL) 171 H Hemoglobin A1c (0 - 5.9 %) 7.9 H Lactic Acid (0.7 - 2.0 mmol/L) 1.0 Calcium (8.4 - 10.2 mg/dL) 8.4 Phosphorus (2.5 - 4.5 mg/dL) 4.1 Magnesium (1.6 - 2.3 mg/dL) 1.5 L Total Bilirubin (0.2 - 1.3 mg/dL) 1.4 H Conjugated Bilirubin (0 - 0.3 mg/dL) 0 Unconjugated Bilirubin (0 - 1.1 mg/dL) 0.6 AST (15 - 46 U/L) 49 H ALT (0 - 49 U/L) 24 Total Alk Phosphatase (38 - 126 U/L) 99 Troponin I (0.012 - 0.033 ng/mL) < 0.012 L Total Protein (6.3 - 8.2 g/dL) 6.0 L Albumin (3.5 - 5.0 g/dL) 2.6 L Specimen Hemolysis (0 - 100 Index/DL) 81 10/01 1431 Chemistry Ammonia (9 - 30 umol/L) 27 Laboratory Tests 10/01 1431 Coagulation INR 2.0 PT Patient/Control Mix (9.2 - 12.1 SECONDS) 21.9 H Laboratory Tests 10/02 10/01 0013 1431 Hematology WBC (5.0 - 12.0 x10 3/uL) 8.7 10.1 RBC (4.70 - 6.10 x10 6/uL) 3.63 L 3.79 L Hgb (14.0 - 18.0 g/dL) 11.1 L 11.8 L Hct (37.0 - 49.0 %) 33.0 L 34.1 L MCV (80 - 94 fL) 91 90 MCH (27 - 31 pg) 30.6 31.1 H MCHC (33 - 37 g/dL) 33.6 34.6 RDW (11.5 - 15.5 %) 13.3 13.3 Plt Count (130 - 400 x10 3/uL) 206 191 MPV (9.4 - 16.4 fL) 9.4 9.3 L Neut % (Auto) (43 - 65 %) 73.7 H 79.2 H Lymph % (Auto) (20.5 - 45.5 %) 12.1 L 7.9 L [place] % (Auto) (5.5 - 11.7 %) 9.7 9.3 Eos % (Auto) (0.9 - 2.9 %) 3.6 H 2.5 Baso % (Auto) (0.2 - 1.0 %) 0.6 0.7 Neut # (Auto) (2.2 - 4.8 x10 3/uL) 6.43 H 8.02 H Lymph # (Auto) (1.3 - 2.9 x10 3/uL) 1.06 L 0.80 L [place] # (Auto) (0.3 - 0.8 x10 3/uL) 0.85 H 0.94 H Eos # (Auto) (0.0 - 0.2 x10 3/uL) 0.31 H 0.25 H Baso # (Auto) (0.0 - 0.1 x10 3/uL) 0.05 0.07 Immature Gran % (0.0 - 2.0 %) 0.3 0.4 Nucleated RBC % (0 - 1.0 %) 0.0 0.0 Diagnosis, Assessment Plan Free Text A P: #Active pulmonary TB #A.fib #HTN #DM #CAD -Patient reported diarrhea, N/V has resolved after coming here -start RIPE thereapy with rifabutin instead of rifampin and drug interaction with eliquis -might need to replace INH for moxifloxacin as there is national shortage of INH ?? -TB and TB medication education in [facility] [facility] Patient is set up with health department nurse [facility] [phone], d/w primary will follow while here. Plan d/w attending Dr. Johnson at 1412 at 3839 RPT #:[id number] END OF REPORT [facility] 2022-10-02 09:11:00 [id number] [facility] [id number] [place], [place] [address]. [address] [place] [address] PATIENT NAME: SEYMOUR SNOW ADMIT DATE: 09/27/22 ACCOUNT NO: [id number] ROOM NO: [place] [id number] AGE: 72 REPORT TYPE: ELECTROCARDIOGRAM SEX: M ADMITTING PHYSICIAN:Marlyn Zee MD ATTENDING PHYSICIAN:Marlyn Zee MD Order: [id number] Test Reason : afib Test Date/Time Stamp: FriOct 02 2022 09:11:09 Blood Pressure : / mmHG Vent. Rate : 079 BPM Atrial Rate : 075 BPM P-R Int : 000 ms QRS Dur : 104 ms QT Int : 372 ms P-R-T Axes : -14 -47 054 degrees QTc Int : 426 ms Undetermined rhythm Left axis deviation Anterior infarct , age undetermined Abnormal ECG Confirmed by PANCHO TRIMBLE MD ([id number]) on 10/06/2022 7:24:40 PM Referred By: Manasa Dimas Confirmed by:PANCHO TRIMBLE MD at 1924 PATIENT NAME: SEYMOUR SNOW [facility] 2022-10-01 18:05:00 [facility] Critical Care Consult Note REPORT#:[id number] REPORT STATUS: Signed DATE:10/01/22 TIME: 1804 PATIENT: SEYMOUR SNOW UNIT #: [id number] ROOM/BED: [address] : [address] AGE: 72 SEX: M ATTEND: Zander Gaston MD ADM AUTHOR: Madhu Martin MD R2 * ALL edits or amendments must be made on the electronic/computer document * Madhu Martin V 10/01/221804: History of Present Illness HPI Requesting clinician: Dr. Domínguez Reason for consult: aflutter hypotension Chief complaint: palpitations PCP: PCP: No Primary or Family Physician HPI: Seymour Sarah is a very pleasant 72 yo M with a history of atrial fibrillation on eliquis, T2DM, HTN and recent diagnosis of pulmonary tuberculosis who is presenting to the icu due to atrial flutter and hypotension. Patient was admitted on 09/27/2022 for intractale nausea and vomiting. Hospitalization has been complicated by tachyarrythmia with hypotension found to be in aflutter. Patient received lopressor x 1 dropping blood pressure to 80s/ 50s and received bolus of amiodarone 150, digoxin x1. MAP is currently in 70s, cardiology and EP were consulted. Patient is currently resting in bed, states he overall feels fatigued with palpitations. History - Adult longitudinal Past medical history: Reports: Diabetes mellitus, Hypertension. Additional surgical history: Neck surgery, 40 years ago Alcohol use: Denies EtOH use Drug use: Denies recreational drugs Smoking status for patients 13 years old or older: Never Smoker Other social history: Good social support Allergies: Coded Allergies: No Known Allergies (10/26/18) Review of Systems ROS Constitutional: Reports: fatigue. Denies: fever, generalized weakness. Skin: Denies: contusion, diaphoresis. Allergy/Immun: Denies: hives, itching. Eyes: Denies: visual loss/blurred, itching. ENT: Denies: ear drainage, ear ringing. Respiratory: Reports: non productive cough. Denies: hemoptysis, pleuritic pain. Cardiovascular: Reports: PRITCHARD (dyspnea on exertion), palpitations. Denies: chest pain. GI: Reports: GERD, nausea. Denies: abdominal pain, constipation. Musculoskeletal: Denies: arthritis, extremity pain. Psych: Denies: agitation, anxiety. Objective Physical Exam VS/I O: Last Documented: Result Date Time Pulse Ox 93 10/01 1755 B/P 110/71 10/01 1755 B/P Mean 84.0 10/01 1755 O2 Delivery Nasal cannula 10/01 175 O2 Flow Rate 6 10/01 1755 Temp 99.1 10/01 175 Pulse 147 10/01 1755 Resp 18 10/01 1755 FiO2 3 09/30 1606 24 hour I O ending at 0700: 10/01 0700 09/30 1900 Intake Total 2300.00 Output Total 400 Balance -400 2300.00 Intake, IV 1400.00 Intake, Oral 900 Intake, Oral 0 Supplement Number Voids 3 Output, Urine 400 Patient 99.79 kg Weight Patient Weight and BMI Weight (kg): 99.79 BMI: 28.4 Medications: Active Meds + DC'd Last 24 Hrs Digoxin (LANOXIN) 0.25 MG Q4HR IV (CKD) Digoxin (LANOXIN) 0.5 MG ONCE ONE IV (DC) Metoprolol Tartrate (LOPRESSOR) 2.5 MG Q4H PRN PRN IV Perflutren Lipid Microsphere (DEFINITY) DIRECTED ONCE PRN IV Sodium Chloride (NACL 0.9% 10ML SYRINGE) DIRECTED ONCE PRN IV Sodium Chloride (SODIUM CHLORIDE FLUSH) 5 ML ONCE PRN IV Amiodarone HCl (NEXTERONE 150 MG/100 ML BAG) 100 ML ONCE ONE IV (DC) Magnesium Sulfate (MAGNESIUM SULFATE 2GM) 50 ML ONCE ONE IV Perflutren Lipid Microsphere (DEFINITY) DIRECTED ONCE PRN IV (DC) Sodium Chloride (NACL 0.9% 10ML SYRINGE) DIRECTED ONCE PRN IV (DC) Sodium Chloride (SODIUM CHLORIDE FLUSH) 5 ML ONCE PRN IV (DC) Albuterol/Ipratropium (DUONEB 3MG-0.5MG/3 ML) 3 ML RTQ6H INH Budesonide (PULMICORT RESPULES) 0.25 MG RTBID INH Non-Formulary Medication (NON-FORMULARY) RIFABUTIN 300 MG PO DAILY DAILY PO Magnesium (MAGNESIUM SULFATE 1GM) 100 ML ONCE ONE IV (DC) Rifampin (rifAMPin) 600 MG 1700 PO (DC) Ethambutol HCl (MYAMBUTOL) 1,600 MG DAILY PO Isoniazid (ISONIAZID,INH) 300 MG DAILY PO Pyrazinamide (PYRAZINAMIDE) 1,500 MG DAILY PO Metoprolol Tartrate (LOPRESSOR) 5 MG Q5M PRN PRN IV (DC) Promethazine HCl (PHENERGAN) 12.5 MG BID PO Loperamide HCl (IMODIUM) 2 MG BID PRN PRN PO Thiamine HCl (THIAMINE ) 500 MG Q8HR IV (CKD) Sodium Chloride (SODIUM CHLORIDE 0.9%) 250 ML Pyridoxine HCl (VITAMIN B-6) 50 MG DAILY PO Morphine Sulfate (morphine) 2 MG Q4H PRN PRN IV Dextrose/Water (DEXTROSE 50% SYR) 25 ML ASDIR PRN IV (CKD) Glucagon (GLUCAGON) 1 MG ASDIR PRN IM Hydromorphone HCl (DILAUDID) 1 MG Q6H PRN PRN PO Insulin Human Lispro (HumaLOG) MODERATE DOSE SCALE ASDIR SUBQ Hydralazine HCl (APRESOLINE) 10 MG Q6H PRN PRN IV Nitroglycerin (NITROQUICK BOTTLE) 0.4 MG Q5M PRN PRN SL Ondansetron HCl (ZOFRAN 4 MG/2 ML INJ) 4 MG Q4H PRN PRN IV Apixaban (ELIQUIS) 5 MG BID PO Metoprolol Tartrate (LOPRESSOR) 12.5 MG BID PO General appearance: alert, awake, oriented Head/Eyes: atraumatic, clear cornea Cardiovascular: irregular rhythm, tachycardia, no thrill, hypotension Respiratory: aerating well, clear to auscultation, symmetric expansion, no distress Abdomen: soft, non-tender, normal bowel sounds Extremities: moves all, normal capillary refill Musculoskeletal: normal inspection, painless range of motion Neuro/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: alert, oriented X 3 Skin: dry, intact Results Findings/Data: Laboratory Tests 10/01/22 1545: [Embedded Image Not Available] 10/01/22 1431: [Embedded Image Not Available] 10/01/22 0509: [Embedded Image Not Available] Laboratory Tests 10/01 10/01 10/01 10/01 10/01 1709 1709 1545 1506 1431 Chemistry Sodium (137 - 145 mmol/L) 137 Potassium (3.4 - 5.0 mmol/L) 4.6 Chloride (98 - 107 mmol/L) 104 Carbon Dioxide (22 - 30 mmol/L) 28 Anion Gap 10 BUN (9 - 20 mg/dL) 14 Creatinine (0.7 - 1.3 mg/dL) 0.8 Glomerular Filtr Rate (mL/min) 93 Glucose (74 - 106 mg/dL) 139 H POC Glucose (74 - 106 MG/DL) 171 H Hemoglobin A1c (0 - 5.9 %) 7.9 H Lactic Acid (0.7 - 2.0 mmol/L) 1.0 Calcium (8.4 - 10.2 mg/dL) 8.4 Phosphorus (2.5 - 4.5 mg/dL) 4.1 Magnesium (1.6 - 2.3 mg/dL) 1.5 L Total Bilirubin (0.2 - 1.3 mg/dL) 1.4 H Conjugated Bilirubin (0 - 0.3 0 mg/dL) Unconjugated Bilirubin (0 - 1.1 0.6 mg/dL) AST (15 - 46 U/L) 49 H ALT (0 - 49 U/L) 24 Total Alk Phosphatase (38 - 126 99 U/L) Troponin I (0.012 - 0.033 ng/mL) < 0.012 L Total Protein (6.3 - 8.2 g/dL) 6.0 L Albumin (3.5 - 5.0 g/dL) 2.6 L Specimen Hemolysis (0 - 100 81 Index/DL) 10/01 10/01 10/01 10/01 09/30 1431 1135 0509 3625 2000 Chemistry Sodium (137 - 145 mmol/L) 136 L Potassium (3.4 - 5.0 mmol/L) 3.9 Chloride (98 - 107 mmol/L) 102 Carbon Dioxide (22 - 30 mmol/L) 30 Anion Gap 7 BUN (9 - 20 mg/dL) 13 Creatinine (0.7 - 1.3 mg/dL) 1.0 Glomerular Filtr Rate (mL/min) 79 Glucose (74 - 106 mg/dL) 109 H POC Glucose (74 - 106 MG/DL) 159 H 100 189 H Calcium (8.4 - 10.2 mg/dL) 8.4 Magnesium (1.6 - 2.3 mg/dL) 1.7 Total Bilirubin (0.2 - 1.3 mg/dL) 2.0 H Conjugated Bilirubin (0 - 0.3 mg/dL) 0 Unconjugated Bilirubin (0 - 1.1 mg/dL) 1.1 AST (15 - 46 U/L) 37 ALT (0 - 49 U/L) 23 Total Alk Phosphatase (38 - 126 U/L) 110 Ammonia (9 - 30 umol/L) 27 Total Protein (6.3 - 8.2 g/dL) 6.0 L Albumin (3.5 - 5.0 g/dL) 2.6 L Specimen Hemolysis (0 - 100 Index/DL) < 15 Laboratory Tests 10/01 143 Coagulation INR 2.0 PT Patient/Control Mix (9.2 - 12.1 SECONDS) 21.9 H Laboratory Tests 10/01 10/01 1431 0509 Hematology WBC (5.0 - 12.0 x10 3/uL) 10.1 10.3 RBC (4.70 - 6.10 x10 6/uL) 3.79 L 3.25 L Hgb (14.0 - 18.0 g/dL) 11.8 L 10.2 L Hct (37.0 - 49.0 %) 34.1 L 29.6 L MCV (80 - 94 fL) 90 91 MCH (27 - 31 pg) 31.1 H 31.4 H MCHC (33 - 37 g/dL) 34.6 34.5 RDW (11.5 - 15.5 %) 13.3 13.4 Plt Count (130 - 400 x10 3/uL) 191 221 MPV (9.4 - 16.4 fL) 9.3 L 9.6 Neut % (Auto) (43 - 65 %) 79.2 H 75.8 H Lymph % (Auto) (20.5 - 45.5 %) 7.9 L 10.9 L [place] % (Auto) (5.5 - 11.7 %) 9.3 9.5 Eos % (Auto) (0.9 - 2.9 %) 2.5 2.8 Baso % (Auto) (0.2 - 1.0 %) 0.7 0.6 Neut # (Auto) (2.2 - 4.8 x10 3/uL) 8.02 H 7.78 H Lymph # (Auto) (1.3 - 2.9 x10 3/uL) 0.80 L 1.12 L [place] # (Auto) (0.3 - 0.8 x10 3/uL) 0.94 H 0.98 H Eos # (Auto) (0.0 - 0.2 x10 3/uL) 0.25 H 0.29 H Baso # (Auto) (0.0 - 0.1 x10 3/uL) 0.07 0.06 Immature Gran % (0.0 - 2.0 %) 0.4 0.4 Nucleated RBC % (0 - 1.0 %) 0.0 0.0 Microbiology: 10/01 1719 BLOOD: Blood Culture - RECD 10/01 1709 BLOOD: Blood Culture - RECD Radiology data: Recent Impressions: RADIOLOGY - XR SHOULDER 2 + V RT 10/01 1118 Report Impression - Status: SIGNED Entered: 10/01/2022 1147 IMPRESSION: 1. Right basilare atelectasis and or infiltrative process. 2. No fracture or dislocation of the right shoulder. Impression By: Apple.Jake Rice MD Diagnosis, Assessment Plan Free text DxA P: Seymour Selby is a 72 yo M w hx afib on eliquis, T2DM, HTN and recent dx of pulmonary TB presenting with acute atrial flutter w rvr and hypotension NEURO acute and oriented appears at baseline CV # atrial flutter w rvr # hypotension - echo pending - K > 4 Mag > 2 - cont tele monitoring - avoiding amio due to rifampin dosing - iv digoxin per EP - if unstable will need cardioversion, monitor MAP closely - appreciate cardiology and EP recs - cont eliquis, consider switching to heparin if needing procedures - unsure if he has been compliant on eliquis, so will need to rule out LV thrombus - has been fluid resuscitated PULM # active pulmonary tuberculosis - recently diagnosed at [facility] - on ripe therapy. Using rifabutin - may need to replace inh for moxi due to shortage - has health department rn assigned Peg Lozoya phone number [phone] - appreciate ID RECS RENAL avoid nephrotoxi meds strict is and os # hypomagnesemia - replete as tolerated - has received multiple bags of magnesium - nephro was consulted pending recs GI # gastroenteritis # intractable nausea and vomiting was on anti emetics , clear liquid diet - now on soft diet, advance as tolerated ID # tuberculosis - on ripe and b6 - ID following F: Soft A: prn S: none T: eliquis [id number] U: none G: MDSS S: room air B: prn I: PIV's D: RIPE Case to be discussed w Chavez Julio 10/02/22 0444: Attestations Teaching Physician Attestation F/U visit w/ resident: I saw the patient with the resident and . . . agree with the resident's findings and plan. agree with the resident's findings and plan EXCEPT: Admitted initially for nausea and vomiting Progressed to Aflutter/RVR and warranted ICU admission Active cavitary TB on RIPE therapy started early 09/2022 Given Digoxin and Metoprolol per Card Rate controlled upon encounter in ICU A Ox3, on 6L NC Plan -c/w current RIPE regimen (with rifabutin) -c/w metoprolol and AC -replace Mg, goal >2mg/dL -monitor in ICU overnight Manasa Dimas 10/20/22 1639: Attestations Physician Attestation Agree w/findings plan: I have personally interviewed and examined the patient 10/01/2022. All charts, labs, and imaging studies were reviewed. I agree with the PA/BALL WARPER TENDER/resident's findings, exam, and plan. Lungs are clear CC time >40min. No procedure time. at 1850 at 1644 at 2005 RPT #:[id number] END OF REPORT [facility] 2022-10-01 17:32:00 ([facility] Cardiology Consultation REPORT#:[id number] REPORT STATUS: Signed DATE:10/01/22 TIME: 1732 PATIENT: SEYMOUR SNOW UNIT #: [id number] ROOM/BED: [address] : [address] AGE: 72 SEX: M ATTEND: Solange Domínguez MD ADM AUTHOR: Andres Grimes MD * ALL edits or amendments must be made on the electronic/computer document * History of Present Illness HPI HPI: Mr. Dickerson is a 72yo with history of parox AF, recent diagnosis of cavitary TB with admitted for nausea vomiting was ntoed to go into AF and then flutter and cardiology is consulted. HR has been running in the mid 150s. He is on Eliquis and Metoprolol as an outpatient. History - Adult longitudinal Past medical history: Reports: Diabetes mellitus, Hypertension. Additional surgical history: Neck surgery, 40 years ago Alcohol use: Denies EtOH use Drug use: Denies recreational drugs Smoking status for patients 13 years old or older: Never Smoker Other social history: Good social support Home medications: Home Medications: PYRIDOXINE (VITAMIN B-6) 50 MG PO DAILY ETHAMBUTOL (MYAMBUTOL) 1,200 MG PO DAILY PYRAZINAMIDE 1,500 MG PO DAILY rifAMPin (RIFADIN) 600 MG PO DAILY ISONIAZID 300 MG PO DAILY APIXABAN (ELIQUIS) 5 MG PO BID METOPROLOL TARTRATE (LOPRESSOR) 12.5 MG PO BID glipiZIDE (GLUCOTROL) 5 MG PO AC ATORVASTATIN (LIPITOR) 40 MG PO DAILY metFORMIN (GLUCOPHAGE) 850 MG PO BID MEALS LOSARTAN (COZAAR) 50 MG PO DAILY ACETAMINOPHEN (TYLENOL) 650 MG PO Q8HR PRN pain BISACODYL EC (DULCOLAX EC) 10 MG PO DAILY PRN PRN CONSTIPATION traMADol (ULTRAM) 50 MG PO Q6H PRN PRN PAIN FUROSEMIDE (LASIX) 20 MG PO QAM FAMOTIDINE (PEPCID) 20 MG PO BID metFORMIN (GLUCOPHAGE) 500 MG PO C BK DIN MEGESTROL (MEGACE) 40 MG PO DAILY Allergies: Coded Allergies: No Known Allergies (10/26/18) Review of Systems All systems rev neg: except as marked Objective General VS/I O: Vital Signs: Date Time Temp Pulse Resp B/P B/P Pulse O2 O2 Flow FiO2 Mean Ox Delivery Rate 10/01 1706 37.6 143 16 93/59 70.3 93 Nasal 4 cannula 10/01 1631 152 16 88/52 64 10/01 1509 37.3 109 16 95/59 70.6 92 Nasal 3 cannula 10/01 1137 37.0 65 14 121/87 98.4 94 Nasal 3 cannula 10/01 0800 Nasal 3 cannula 10/01 0758 37.7 73 16 96/59 71.4 96 Nasal 3 cannula 10/01 0437 36.6 70 16 96/62 73.5 95 Nasal 3 cannula 09/30 2342 36.6 64 18 84/54 63.8 97 Nasal 6 cannula 09/30 2002 37.0 81 18 106/67 79.6 93 Nasal 6 cannula 10/01 1999 Nasal 3 cannula 24 hour I O ending at 0700: 10/01 0700 09/30 1900 Intake Total 2300.00 Output Total 400 Balance -400 2300.00 Intake, IV 1400.00 Intake, Oral 900 Intake, Oral 0 Supplement Number Voids 3 Output, Urine 400 Patient 99.79 kg Weight PATIENT WEIGHT: Weight (lb): 220 Weight (oz): 14.45 Weight (kg): 99.79 Medications: Active Meds + DC'd Last 24 Hrs Amiodarone HCl (NEXTERONE 150 MG/100 ML BAG) 100 ML ONCE ONE IV (DC) Magnesium Sulfate (MAGNESIUM SULFATE 2GM) 50 ML ONCE ONE IV Perflutren Lipid Microsphere (DEFINITY) DIRECTED ONCE PRN IV Sodium Chloride (NACL 0.9% 10ML SYRINGE) DIRECTED ONCE PRN IV Sodium Chloride (SODIUM CHLORIDE FLUSH) 5 ML ONCE PRN IV Albuterol/Ipratropium (DUONEB 3MG-0.5MG/3 ML) 3 ML RTQ6H INH Budesonide (PULMICORT RESPULES) 0.25 MG RTBID INH Non-Formulary Medication (NON-FORMULARY) RIFABUTIN 300 MG PO DAILY DAILY PO Magnesium (MAGNESIUM SULFATE 1GM) 100 ML ONCE ONE IV (DC) Rifampin (rifAMPin) 600 MG 1700 PO (DC) Ethambutol HCl (MYAMBUTOL) 1,600 MG DAILY PO Isoniazid (ISONIAZID,INH) 300 MG DAILY PO Pyrazinamide (PYRAZINAMIDE) 1,500 MG DAILY PO Metoprolol Tartrate (LOPRESSOR) 5 MG Q5M PRN PRN IV (DC) Promethazine HCl (PHENERGAN) 12.5 MG BID PO Loperamide HCl (IMODIUM) 2 MG BID PRN PRN PO Thiamine HCl (THIAMINE ) 500 MG Q8HR IV (CKD) Sodium Chloride (SODIUM CHLORIDE 0.9%) 250 ML Pyridoxine HCl (VITAMIN B-6) 50 MG DAILY PO Morphine Sulfate (morphine) 2 MG Q4H PRN PRN IV Dextrose/Water (DEXTROSE 50% SYR) 25 ML ASDIR PRN IV (CKD) Glucagon (GLUCAGON) 1 MG ASDIR PRN IM Hydromorphone HCl (DILAUDID) 1 MG Q6H PRN PRN PO Insulin Human Lispro (HumaLOG) MODERATE DOSE SCALE ASDIR SUBQ Hydralazine HCl (APRESOLINE) 10 MG Q6H PRN PRN IV Nitroglycerin (NITROQUICK BOTTLE) 0.4 MG Q5M PRN PRN SL Ondansetron HCl (ZOFRAN 4 MG/2 ML INJ) 4 MG Q4H PRN PRN IV Apixaban (ELIQUIS) 5 MG BID PO Metoprolol Tartrate (LOPRESSOR) 12.5 MG BID PO Physical Exam General appearance: chronically ill appearing, alert, awake, oriented Head/Eyes: atraumatic, EOMI Neck: full range of motion Cardiovascular: CV assessment: tachycardia Respiratory: decreased breath sounds Abdomen: soft, non-tender Lower extremity: LE assessment: no edema Neuro/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: oriented X 3 Results Findings/Data: Laboratory Tests 10/01 10/01 10/01 10/01 10/01 1545 1506 1431 1431 1135 Chemistry Sodium (137 - 145 mmol/L) 137 Potassium (3.4 - 5.0 mmol/L) 4.6 Chloride (98 - 107 mmol/L) 104 Carbon Dioxide (22 - 30 mmol/L) 28 Anion Gap 10 BUN (9 - 20 mg/dL) 14 Creatinine (0.7 - 1.3 mg/dL) 0.8 Glomerular Filtr Rate (mL/min) 93 Glucose (74 - 106 mg/dL) 139 H POC Glucose (74 - 106 MG/DL) 171 H 159 H Hemoglobin A1c (0 - 5.9 %) 7.9 H Calcium (8.4 - 10.2 mg/dL) 8.4 Phosphorus (2.5 - 4.5 mg/dL) 4.1 Magnesium (1.6 - 2.3 mg/dL) 1.5 L Total Bilirubin (0.2 - 1.3 mg/dL) 1.4 H Conjugated Bilirubin (0 - 0.3 mg/dL) 0 Unconjugated Bilirubin (0 - 1.1 mg/dL) 0.6 AST (15 - 46 U/L) 49 H ALT (0 - 49 U/L) 24 Total Alk Phosphatase (38 - 126 U/L) 99 Ammonia (9 - 30 umol/L) 27 Total Protein (6.3 - 8.2 g/dL) 6.0 L Albumin (3.5 - 5.0 g/dL) 2.6 L Specimen Hemolysis (0 - 100 Index/DL) 81 10/01 10/01 09/30 1749 1714 2000 Chemistry Sodium (137 - 145 mmol/L) 136 L Potassium (3.4 - 5.0 mmol/L) 3.9 Chloride (98 - 107 mmol/L) 102 Carbon Dioxide (22 - 30 mmol/L) 30 Anion Gap 7 BUN (9 - 20 mg/dL) 13 Creatinine (0.7 - 1.3 mg/dL) 1.0 Glomerular Filtr Rate (mL/min) 79 Glucose (74 - 106 mg/dL) 109 H POC Glucose (74 - 106 MG/DL) 100 189 H Calcium (8.4 - 10.2 mg/dL) 8.4 Magnesium (1.6 - 2.3 mg/dL) 1.7 Total Bilirubin (0.2 - 1.3 mg/dL) 2.0 H Conjugated Bilirubin (0 - 0.3 mg/dL) 0 Unconjugated Bilirubin (0 - 1.1 mg/dL) 1.1 AST (15 - 46 U/L) 37 ALT (0 - 49 U/L) 23 Total Alk Phosphatase (38 - 126 U/L) 110 Total Protein (6.3 - 8.2 g/dL) 6.0 L Albumin (3.5 - 5.0 g/dL) 2.6 L Specimen Hemolysis (0 - 100 Index/DL) < 15 Laboratory Tests 10/01 1431 Coagulation INR 2.0 PT Patient/Control Mix (9.2 - 12.1 SECONDS) 21.9 H Laboratory Tests 10/01 10/01 1431 0509 Hematology WBC (5.0 - 12.0 x10 3/uL) 10.1 10.3 RBC (4.70 - 6.10 x10 6/uL) 3.79 L 3.25 L Hgb (14.0 - 18.0 g/dL) 11.8 L 10.2 L Hct (37.0 - 49.0 %) 34.1 L 29.6 L MCV (80 - 94 fL) 90 91 MCH (27 - 31 pg) 31.1 H 31.4 H MCHC (33 - 37 g/dL) 34.6 34.5 RDW (11.5 - 15.5 %) 13.3 13.4 Plt Count (130 - 400 x10 3/uL) 191 221 MPV (9.4 - 16.4 fL) 9.3 L 9.6 Neut % (Auto) (43 - 65 %) 79.2 H 75.8 H Lymph % (Auto) (20.5 - 45.5 %) 7.9 L 10.9 L [place] % (Auto) (5.5 - 11.7 %) 9.3 9.5 Eos % (Auto) (0.9 - 2.9 %) 2.5 2.8 Baso % (Auto) (0.2 - 1.0 %) 0.7 0.6 Neut # (Auto) (2.2 - 4.8 x10 3/uL) 8.02 H 7.78 H Lymph # (Auto) (1.3 - 2.9 x10 3/uL) 0.80 L 1.12 L [place] # (Auto) (0.3 - 0.8 x10 3/uL) 0.94 H 0.98 H Eos # (Auto) (0.0 - 0.2 x10 3/uL) 0.25 H 0.29 H Baso # (Auto) (0.0 - 0.1 x10 3/uL) 0.07 0.06 Immature Gran % (0.0 - 2.0 %) 0.4 0.4 Nucleated RBC % (0 - 1.0 %) 0.0 0.0 Laboratory Tests 10/01 10/01 1545 0509 Chemistry Magnesium (1.6 - 2.3 mg/dL) 1.5 L 1.7 Diagnosis, Assessment Plan Free Text DxA P Notes Free Text DxA P Notes: 1. Atrial flutter - continue metoprolol for rate control - Amiodarone is problematic in the setting of rifampin dosing - will give IV digoxin for better rate control and increase Metoprolol to 12.5 q6hs - conitnue IV fluid resuscitation for now - continue Eliquis - will obtain echocardiogram - may need BENJI/CV if not able to get better rate control THnak you for consultation, will follow [facility] at [address] [facility] #:[id number] END OF REPORT [facility] 2022-10-01 16:16:00 [id number] [facility] [address] [facility], [place] [place] [address] PATIENT NAME: SEYMOUR SNOW ADMIT DATE: 09/27/22 ACCOUNT NO: [id number] ROOM NO: [place] [id number] AGE: 72 REPORT TYPE: ELECTROCARDIOGRAM SEX: M ADMITTING PHYSICIAN:Manasa Dimas MD ATTENDING PHYSICIAN:Manasa Dimas MD Order: [id number] Test Reason : SVT Test Date/Time Stamp: FriOct 01 2022 16:16:51 Blood Pressure : / mmHG Vent. Rate : 153 BPM Atrial Rate : 306 BPM P-R Int : 000 ms QRS Dur : 082 ms QT Int : 250 ms P-R-T Axes : 244 -48 092 degrees QTc Int : 399 ms Atrial flutter with 2:1 AV conduction Left axis deviation Inferior infarct , age undetermined Anterior infarct , age undetermined Abnormal ECG Confirmed by LINDSAY MUNOZ ([id number]) on 10/02/2022 1:37:41 PM Referred By: Self Referred Confirmed by:LINDSAY MUNOZ at 1337 PATIENT NAME: SEYMOUR SNOW [facility] 2022-10-01 08:29:00 ([facility] Infectious Dis. Progress Note REPORT#:[id number] REPORT STATUS: Signed DATE:10/01/22 TIME: 828 PATIENT: SEYMOUR SNOW UNIT #: [id number] ROOM/BED: [address] : [address] AGE: 72 SEX: M ATTEND: Marlyn Zee MD ADM AUTHOR: Carol Jimenez MD R3 * ALL edits or amendments must be made on the electronic/computer document * Carol Jimenez 10/01/22 08: Subjective Comments: Patient reported feeling better this AM Still reported SOB and productive cough BP noted low since yesterday evening. In afternoon he noted to be having A.flutter and A.fib RVR episode. Patient lives with his sister and she is recently diagnosed with TB and on medications for that. D/w primary Review of Systems Constitutional: fatigue. Denies: chills, fever, generalized weakness, lethargy, malaise, recent wt loss. Respiratory: Reports: PRITCHARD (dyspnea on exertion), productive cough (sputum), SOB. Denies: hemoptysis, non productive cough, parox nocturnal dyspnea, pleurisy, pleuritic pain, pneumonia, wheezing. Cardiovascular: Denies: chest pain, PRITCHARD (dyspnea on exertion), edema, orthopnea, palpitations, parox nocturnal dyspnea. GI: Denies: abdominal pain, anorexia, constipation, diarrhea, dysphagia, GERD, hematemesis, hematochezia, hiatal hernia, melena, nausea, rectal pain, vomiting. : Denies: dysuria, flank pain, frequency, hematuria, nocturia, penile discharge, penile lesion, testicular pain, testicular swelling, urgency, urinary retention. All systems rev neg: except as marked Objective General VS/I O: Vital Signs Date Temp Pulse Resp B/P B/P Mean Pulse Ox FiO2 09/30-10/01 97.9-99.9 64-81 16-19 84-118/54-75 63.8-89.6 90-97 3 Last Documented: Result Date Time Pulse Ox 96 10/01 0758 B/P 96/59 10/01 0758 B/P Mean 71.4 10/01 0758 O2 Delivery Nasal cannula 10/01 0758 O2 Flow Rate 3 10/01 0758 Temp 99.9 10/01 0758 Pulse 73 10/01 0758 Resp 16 10/01 0758 FiO2 3 09/30 1606 Vital Signs: Date Time Temp Pulse Resp B/P B/P Pulse O2 O2 Flow FiO2 Mean Ox Delivery Rate 10/01 0758 99.9 73 16 96/59 71.4 96 Nasal 3 cannula 10/01 0437 97.9 70 16 96/62 73.5 95 Nasal 3 cannula 09/30 2342 97.9 64 18 84/54 63.8 97 Nasal 6 cannula 09/30 2001 98.6 81 18 106/67 79.6 93 Nasal 6 cannula 10/01 1999 Nasal 3 cannula 09/30 1606 98.6 77 19 118/75 89.6 90 Nasal 3 cannula 09/30 1105 99.0 68 19 100/63 75.4 92 Nasal 3 cannula 24 hour I O ending at 0700: 10/01 0700 09/30 1900 Intake Total 2300.00 Output Total 400 Balance -400 2300.00 Intake, IV 1400.00 Intake, Oral 900 Intake, Oral 0 Supplement Number Voids 3 Output, Urine 400 Patient 99.79 kg Weight PATIENT WEIGHT: Weight (lb): 220 Weight (oz): 14.45 Weight (kg): 99.79 Medications: Active Meds + DC'd Last 24 Hrs Albuterol/Ipratropium (DUONEB 3MG-0.5MG/3 ML) 3 ML RTQ6H INH Budesonide (PULMICORT RESPULES) 0.25 MG RTBID INH Non-Formulary Medication (NON-FORMULARY) RIFABUTIN 300 MG PO DAILY DAILY PO Magnesium (MAGNESIUM SULFATE 1GM) 100 ML ONCE ONE IV (DC) Rifampin (rifAMPin) 300 MG 1700 PO (DC) Rifampin (rifAMPin) 600 MG 1700 PO (DC) Ethambutol HCl (MYAMBUTOL) 1,600 MG DAILY PO Isoniazid (ISONIAZID,INH) 300 MG DAILY PO Pyrazinamide (PYRAZINAMIDE) 1,500 MG DAILY PO Magnesium Sulfate (MAGNESIUM SULFATE 2GM) 50 ML ONCE ONE IV (DC) Magnesium Sulfate (MAGNESIUM SULFATE 4GM) 100 ML ONCE ONE IV (DC) Metoprolol Tartrate (LOPRESSOR) 5 MG Q5M PRN PRN IV Promethazine HCl (PHENERGAN) 12.5 MG BID PO Loperamide HCl (IMODIUM) 2 MG BID PRN PRN PO Thiamine HCl (THIAMINE ) 500 MG Q8HR IV (CKD) Sodium Chloride (SODIUM CHLORIDE 0.9%) 250 ML Pyridoxine HCl (VITAMIN B-6) 50 MG DAILY PO Morphine Sulfate (morphine) 2 MG Q4H PRN PRN IV Dextrose/Water (DEXTROSE 50% SYR) 25 ML ASDIR PRN IV (CKD) Glucagon (GLUCAGON) 1 MG ASDIR PRN IM Hydromorphone HCl (DILAUDID) 1 MG Q6H PRN PRN PO Insulin Human Lispro (HumaLOG) MODERATE DOSE SCALE ASDIR SUBQ Lactated Ringer's (LACTATED RINGERS) 1,000 ML .Q10H IV (DC) Hydralazine HCl (APRESOLINE) 10 MG Q6H PRN PRN IV Nitroglycerin (NITROQUICK BOTTLE) 0.4 MG Q5M PRN PRN SL Ondansetron HCl (ZOFRAN 4 MG/2 ML INJ) 4 MG Q4H PRN PRN IV Apixaban (ELIQUIS) 5 MG BID PO Metoprolol Tartrate (LOPRESSOR) 12.5 MG BID PO Physical Exam General appearance: alert, awake, oriented, no acute distress Head/Eyes: atraumatic, clear cornea, EOMI, PERRLA Neck: full range of motion, supple/no meningismus Cardiovascular: normal heart sounds, regular rate rhythm, no murmur Respiratory: crackles, on oxygen, rhonchi, wheezing Abdomen: non-tender, normal bowel sounds, soft Extremities: moves all, no edema Neuro/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: alert, oriented X 3, normal speech Results Findings/Data: Laboratory Tests 10/01 10/01 09/30 09/30 09/30 0509 0435 2001 1605 1103 Chemistry Sodium (137 - 145 mmol/L) 136 L Potassium (3.4 - 5.0 mmol/L) 3.9 Chloride (98 - 107 mmol/L) 102 Carbon Dioxide (22 - 30 mmol/L) 30 Anion Gap 7 BUN (9 - 20 mg/dL) 13 Creatinine (0.7 - 1.3 mg/dL) 1.0 Glomerular Filtr Rate (mL/min) 79 Glucose (74 - 106 mg/dL) 109 H POC Glucose (74 - 106 MG/DL) 100 189 H 152 H 151 H Calcium (8.4 - 10.2 mg/dL) 8.4 Magnesium (1.6 - 2.3 mg/dL) 1.7 Total Bilirubin (0.2 - 1.3 mg/dL) 2.0 H Conjugated Bilirubin (0 - 0.3 mg/dL) 0 Unconjugated Bilirubin (0 - 1.1 mg/dL) 1.1 AST (15 - 46 U/L) 37 ALT (0 - 49 U/L) 23 Total Alk Phosphatase (38 - 126 U/L) 110 Total Protein (6.3 - 8.2 g/dL) 6.0 L Albumin (3.5 - 5.0 g/dL) 2.6 L Specimen Hemolysis (0 - 100 Index/DL) < 15 Laboratory Tests 10/01 0509 Hematology WBC (5.0 - 12.0 x10 3/uL) 10.3 RBC (4.70 - 6.10 x10 6/uL) 3.25 L Hgb (14.0 - 18.0 g/dL) 10.2 L Hct (37.0 - 49.0 %) 29.6 L MCV (80 - 94 fL) 91 MCH (27 - 31 pg) 31.4 H MCHC (33 - 37 g/dL) 34.5 RDW (11.5 - 15.5 %) 13.4 Plt Count (130 - 400 x10 3/uL) 221 MPV (9.4 - 16.4 fL) 9.6 Neut % (Auto) (43 - 65 %) 75.8 H Lymph % (Auto) (20.5 - 45.5 %) 10.9 L [place] % (Auto) (5.5 - 11.7 %) 9.5 Eos % (Auto) (0.9 - 2.9 %) 2.8 Baso % (Auto) (0.2 - 1.0 %) 0.6 Neut # (Auto) (2.2 - 4.8 x10 3/uL) 7.78 H Lymph # (Auto) (1.3 - 2.9 x10 3/uL) 1.12 L [place] # (Auto) (0.3 - 0.8 x10 3/uL) 0.98 H Eos # (Auto) (0.0 - 0.2 x10 3/uL) 0.29 H Baso # (Auto) (0.0 - 0.1 x10 3/uL) 0.06 Immature Gran % (0.0 - 2.0 %) 0.4 Nucleated RBC % (0 - 1.0 %) 0.0 Diagnosis, Assessment Plan Free Text A P: #Active pulmonary TB #A.fib #HTN #DM #CAD -Patient reported diarrhea, N/V has resolved after coming here -start RIPE thereapy with rifabutin instead of rifampin and drug interaction with eliquis -might need to replace INH for moxifloxacin as there is national shortage of INH ?? -Patient needs to have health department service set up -TB and TB medication education in [facility] Patient is set up with [facility] already, d/w primary OK to dc from ID stand point, will follow while here. Plan d/w attending Dr. Johnson at 1615 at 5432 RPT #:[id number] END OF REPORT [facility] 2022-10-01 07:26:00 [facility] REPORT#:[id number] REPORT STATUS: Signed DATE:10/01/22 TIME: 725 PATIENT: SEYMOUR SNOW UNIT #: [id number] ROOM/BED: [address] : [address] AGE: 72 SEX: M ATTEND: Manasa Dimas MD ADM AUTHOR: Viola Mott DO R3 * ALL edits or amendments must be made on the electronic/computer document * Viola Mott 10/01/22 0726: Subjective Chief complaint: Cough, SOB Comments: Pt CHANEL this AM resting comfortably in bed. VARUN overnight. No new complaints. Tele: NSR overnight, during the day around 3p went into aflutter 2:1 at 150bpm Review of Systems Constitutional: Denies: chills, fatigue. Respiratory: Reports: PRITCHARD (dyspnea on exertion), productive cough (sputum), SOB. Cardiovascular: Reports: PRITCHARD (dyspnea on exertion). Denies: chest pain. GI: Denies: abdominal pain, anorexia. Psych: Denies: agitation, anxiety. Objective General VS/I O: Vital Signs: Date Time Temp Pulse Resp B/P B/P Pulse O2 O2 Flow FiO2 Mean Ox Delivery Rate 10/01 1631 152 16 88/52 64 10/01 1509 37.3 109 16 95/59 70.6 92 Nasal 3 cannula 10/01 1137 37.0 65 14 121/87 98.4 94 Nasal 3 cannula 10/01 0800 Nasal 3 cannula 10/01 0758 37.7 73 16 96/59 71.4 96 Nasal 3 cannula 10/01 0437 36.6 70 16 96/62 73.5 95 Nasal 3 cannula 09/30 2342 36.6 64 18 84/54 63.8 97 Nasal 6 cannula 09/30 2002 37.0 81 18 106/67 79.6 93 Nasal 6 cannula 09/30 2000 Nasal 3 cannula 24 hour I O ending at 0700: 10/01 0700 09/30 1900 Intake Total 2300.00 Output Total 400 Balance -400 2300.00 Intake, IV 1400.00 Intake, Oral 900 Intake, Oral 0 Supplement Number Voids 3 Output, Urine 400 Patient 99.79 kg Weight PATIENT WEIGHT: Weight (lb): 220 Weight (oz): 14.45 Weight (kg): 99.79 Medications: Active Meds + DC'd Last 24 Hrs Amiodarone HCl (NEXTERONE 150 MG/100 ML BAG) 100 ML ONCE ONE IV (DC) Magnesium Sulfate (MAGNESIUM SULFATE 2GM) 50 ML ONCE ONE IV Perflutren Lipid Microsphere (DEFINITY) DIRECTED ONCE PRN IV Sodium Chloride (NACL 0.9% 10ML SYRINGE) DIRECTED ONCE PRN IV Sodium Chloride (SODIUM CHLORIDE FLUSH) 5 ML ONCE PRN IV Albuterol/Ipratropium (DUONEB 3MG-0.5MG/3 ML) 3 ML RTQ6H INH Budesonide (PULMICORT RESPULES) 0.25 MG RTBID INH Non-Formulary Medication (NON-FORMULARY) RIFABUTIN 300 MG PO DAILY DAILY PO Magnesium (MAGNESIUM SULFATE 1GM) 100 ML ONCE ONE IV (DC) Rifampin (rifAMPin) 300 MG 1700 PO (DC) Rifampin (rifAMPin) 600 MG 1700 PO (DC) Ethambutol HCl (MYAMBUTOL) 1,600 MG DAILY PO Isoniazid (ISONIAZID,INH) 300 MG DAILY PO Pyrazinamide (PYRAZINAMIDE) 1,500 MG DAILY PO Metoprolol Tartrate (LOPRESSOR) 5 MG Q5M PRN PRN IV (DC) Promethazine HCl (PHENERGAN) 12.5 MG BID PO Loperamide HCl (IMODIUM) 2 MG BID PRN PRN PO Thiamine HCl (THIAMINE ) 500 MG Q8HR IV (CKD) Sodium Chloride (SODIUM CHLORIDE 0.9%) 250 ML Pyridoxine HCl (VITAMIN B-6) 50 MG DAILY PO Morphine Sulfate (morphine) 2 MG Q4H PRN PRN IV Dextrose/Water (DEXTROSE 50% SYR) 25 ML ASDIR PRN IV (CKD) Glucagon (GLUCAGON) 1 MG ASDIR PRN IM Hydromorphone HCl (DILAUDID) 1 MG Q6H PRN PRN PO Insulin Human Lispro (HumaLOG) MODERATE DOSE SCALE ASDIR SUBQ Lactated Ringer's (LACTATED RINGERS) 1,000 ML .Q10H IV (DC) Hydralazine HCl (APRESOLINE) 10 MG Q6H PRN PRN IV Nitroglycerin (NITROQUICK BOTTLE) 0.4 MG Q5M PRN PRN SL Ondansetron HCl (ZOFRAN 4 MG/2 ML INJ) 4 MG Q4H PRN PRN IV Apixaban (ELIQUIS) 5 MG BID PO Metoprolol Tartrate (LOPRESSOR) 12.5 MG BID PO Physical Exam General appearance: chronically ill appearing, alert, awake, oriented Head/Eyes: atraumatic, normocephalic ENT: dry mucosal membrane Cardiovascular: normal heart sounds, regular rate rhythm Respiratory: clear to auscultation, symmetric expansion, no distress Abdomen: non-tender, normal bowel sounds, soft, no distention Extremities: moves all, no edema Musculoskeletal: normal inspection Neuro/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: alert, oriented X 3, normal speech Psychiatry: normal affect, normal judgment/insight, normal mood Results Findings/Data: Laboratory Tests 10/01 10/01 10/01 10/01 10/01 1545 1506 1431 1431 1135 Chemistry Sodium (137 - 145 mmol/L) 137 Potassium (3.4 - 5.0 mmol/L) 4.6 Chloride (98 - 107 mmol/L) 104 Carbon Dioxide (22 - 30 mmol/L) 28 Anion Gap 10 BUN (9 - 20 mg/dL) 14 Creatinine (0.7 - 1.3 mg/dL) 0.8 Glomerular Filtr Rate (mL/min) 93 Glucose (74 - 106 mg/dL) 139 H POC Glucose (74 - 106 MG/DL) 171 H 159 H Hemoglobin A1c (0 - 5.9 %) 7.9 H Calcium (8.4 - 10.2 mg/dL) 8.4 Phosphorus (2.5 - 4.5 mg/dL) 4.1 Magnesium (1.6 - 2.3 mg/dL) 1.5 L Total Bilirubin (0.2 - 1.3 mg/dL) 1.4 H Conjugated Bilirubin (0 - 0.3 mg/dL) 0 Unconjugated Bilirubin (0 - 1.1 mg/dL) 0.6 AST (15 - 46 U/L) 49 H ALT (0 - 49 U/L) 24 Total Alk Phosphatase (38 - 126 U/L) 99 Ammonia (9 - 30 umol/L) 27 Total Protein (6.3 - 8.2 g/dL) 6.0 L Albumin (3.5 - 5.0 g/dL) 2.6 L Specimen Hemolysis (0 - 100 Index/DL) 81 10/01 10/01 09/30 0509 043 2000 Chemistry Sodium (137 - 145 mmol/L) 136 L Potassium (3.4 - 5.0 mmol/L) 3.9 Chloride (98 - 107 mmol/L) 102 Carbon Dioxide (22 - 30 mmol/L) 30 Anion Gap 7 BUN (9 - 20 mg/dL) 13 Creatinine (0.7 - 1.3 mg/dL) 1.0 Glomerular Filtr Rate (mL/min) 79 Glucose (74 - 106 mg/dL) 109 H POC Glucose (74 - 106 MG/DL) 100 189 H Calcium (8.4 - 10.2 mg/dL) 8.4 Magnesium (1.6 - 2.3 mg/dL) 1.7 Total Bilirubin (0.2 - 1.3 mg/dL) 2.0 H Conjugated Bilirubin (0 - 0.3 mg/dL) 0 Unconjugated Bilirubin (0 - 1.1 mg/dL) 1.1 AST (15 - 46 U/L) 37 ALT (0 - 49 U/L) 23 Total Alk Phosphatase (38 - 126 U/L) 110 Total Protein (6.3 - 8.2 g/dL) 6.0 L Albumin (3.5 - 5.0 g/dL) 2.6 L Specimen Hemolysis (0 - 100 Index/DL) < 15 Laboratory Tests 10/01 1431 Coagulation INR 2.0 PT Patient/Control Mix (9.2 - 12.1 SECONDS) 21.9 H Laboratory Tests 10/01 10/01 1431 0509 Hematology WBC (5.0 - 12.0 x10 3/uL) 10.1 10.3 RBC (4.70 - 6.10 x10 6/uL) 3.79 L 3.25 L Hgb (14.0 - 18.0 g/dL) 11.8 L 10.2 L Hct (37.0 - 49.0 %) 34.1 L 29.6 L MCV (80 - 94 fL) 90 91 MCH (27 - 31 pg) 31.1 H 31.4 H MCHC (33 - 37 g/dL) 34.6 34.5 RDW (11.5 - 15.5 %) 13.3 13.4 Plt Count (130 - 400 x10 3/uL) 191 221 MPV (9.4 - 16.4 fL) 9.3 L 9.6 Neut % (Auto) (43 - 65 %) 79.2 H 75.8 H Lymph % (Auto) (20.5 - 45.5 %) 7.9 L 10.9 L [place] % (Auto) (5.5 - 11.7 %) 9.3 9.5 Eos % (Auto) (0.9 - 2.9 %) 2.5 2.8 Baso % (Auto) (0.2 - 1.0 %) 0.7 0.6 Neut # (Auto) (2.2 - 4.8 x10 3/uL) 8.02 H 7.78 H Lymph # (Auto) (1.3 - 2.9 x10 3/uL) 0.80 L 1.12 L [place] # (Auto) (0.3 - 0.8 x10 3/uL) 0.94 H 0.98 H Eos # (Auto) (0.0 - 0.2 x10 3/uL) 0.25 H 0.29 H Baso # (Auto) (0.0 - 0.1 x10 3/uL) 0.07 0.06 Immature Gran % (0.0 - 2.0 %) 0.4 0.4 Nucleated RBC % (0 - 1.0 %) 0.0 0.0 Radiology data: Recent Impressions: RADIOLOGY - XR SHOULDER 2 + V RT 10/01 1118 Report Impression - Status: SIGNED Entered: 10/01/2022 1147 IMPRESSION: 1. Right basilare atelectasis and or infiltrative process. 2. No fracture or dislocation of the right shoulder. Impression By: Jake German MD Results: labs reviewed, vital signs reviewed, rhythm personally rev'd, x-ray personally reviewed, current med profile rev'd Diagnosis, Assessment Plan Problem List/A P: 1. Pulmonary TB Free Text DxA P Notes Free text DxA P notes: Patient is a 72-year-old male with past medical history of hypertension, diabetes, CAD, A-fib, recently diagnosed TB on treatment who presented to the ED with complaints of nausea, vomiting, diarrhea for the past 5 days is being admitted for irretractable nausea, vomiting, diarrhea likely secondary to gastroenteritis. # Active Pulmonary tuberculosis - Patient was recently diagnosed with pulmonary tuberculosis on 4 agent therapy at [facility]. - Health Dept RN assigned: [facility] [phone] -- needs DOT order for pt to obtain medications, monthly LFTs, etc -- CM consulted - Chest x-ray obtained here does show cavitary lesion - Pt started on TB meds 5 days prior to admission via [facility] - I.D consulted, restarted RIPE tx # Paroxysmal A-fib/flutter w/ RVR - CHADSVASC 3 - PMHx of A-fib on eliquis/lopressor -- resumed home eliquis for AC and lopressor for rate ctl - on admisssion pt was in NSR - TSH WNL - likely 2/2 persistent hypomagnesemia - RVR episodes: -- 09/30/22: responded to lopressor 5mg IV q5min x2 doses and 1L IVFR bolus -- 10/01/22: Aflutter 2:1, tried lopressor 5mg IV x1 dose, BP decreased, followed by amio 150mg IV bolus; considered diltiazem, however SBP <90mmHg - cardiology consulted, cont IVFR, increased lopressor dose frequency, avoid amio due to rifampin [id number] inhibition, digoxin trial w/ loading dose, obtain TTE, consider BENJI/CV - critical care consulted, accepted upgrade - monitor on tele # Hypomagnesemia - likely 2/2 recent diarrhea - pt repeatedly has low mag of 1.0 until 10/01 (1.7), however it downtrended in the afternoon to 1.5 - cont to monitor and replete - Nephrology consulted, deferred consult; consider reconsulting # Normocytic anemia - cont to monitor # Recent Gastroenteritis, resolved - Patient presented with reported nausea, vomiting, diarrhea ongoing for approximately 5 days with some associated abdominal pain. 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 As d/w attending Dr. Domínguez. Solange Domínguez 10/02/22 0850: Attestations Teaching Physician Attestation F/U visit w/ resident: I personally saw and examined the patient. I have reviewed and agree with the resident's findings, including all diagnostic interpretations and treatment plan as written. I was present for the dobbs portions of any procedures performed. Time spent on direct patient care: 25 minutes , not including the time spent by the resident or time for separately billed procedures. MIPS Advance Care Planning [x] I confirmed that the patient's Advance Care Plan is present, code status is documented, or surrogate decision maker is listed in the patient s medical record. [SATISFIES MIPS PERFORMANCE] If Yes, Stop Here [] The patient s Advance Care plan is not present because: (select) [MIPS PERFORMANCE EXCEPTION/EXCLUSION] [] I confirmed today that the patient does not wish or was not able to name a surrogate decision maker or provide an Advance Care Plan. [] Hospice care is currently being provided or has been provided this calendar year [] I did NOT confirm today the presence of an Advance Care Plan or surrogate decision maker documented within the patient's medical record. [DOES NOT SATISFY MIPS PERFORMANCE] [facility] Med Reconciliation [x] I have utilized all available immediate resources to obtain, update, or review the patient s current medications (including all prescriptions, over-the- counter products, herbals, cannabis/cannabidiol products, and vitamin/mineral/ dietary (nutritional) supplements). [SATISFIES MIPS PERFORMANCE] If Yes, Stop Here [] The patient is not eligible for medication reconciliation; the patient is in an emergent medical situation where delaying treatment would jeopardize the patient s health. [MIPS PERFORMANCE EXCEPTION/EXCLUSION] [] I did NOT confirm, update or review the patient's current list of medications today. [DOES NOT SATISFY MIPS PERFORMANCE] at 1938 at 0851 RPT #:[id number] END OF REPORT [facility] 2022-09-30 08:08:00 [facility]) Infectious Dis. Progress Note REPORT#:[id number] REPORT STATUS: Signed DATE:09/30/22 TIME: 807 PATIENT: SEYMOUR SNOW UNIT #: [id number] [address] AGE: 72 SEX: M ATTEND: Manasa Dimas MD ADM AUTHOR: Carol Jimenez MD R3 * ALL edits or amendments must be made on the electronic/computer document * Subjective Comments: Patient was recently diagnosed with TB at [facility]; previous records reviewed today -MT PCR and sputum AFB was positive on 09/[address] chest showed left UL cavitory thickwalled pNA. He was sent home with RIPE therapy that reportedly he was not taking at home at all saying it was too many medications and did not really know why he was given. discussed importance of being compliant with TB meds. Patient stated his sister has recently diagnosed with TB and he lives with her. He is from [facility] [place] and do back and forth [facility] [place] [facility] [place] is retiered since 10 years. Patient is c/o 12/26 posterior headache, neck pain, blurry vision; denied any nausea, vomiting, fever, abdominal pain. Brudzinski test negative, no neck stiffness noted on exam. Patient is on 2 L NC ; satting well. Afebrile Reportedly patient had an episode of A.fib RVR overnight in setting on h/o a.fib on eliquis. Review of Systems Constitutional: fatigue, generalized weakness. Denies: chills, fever, lethargy, malaise, recent wt loss. Respiratory: Reports: PRITCHARD (dyspnea on exertion), SOB. Denies: hemoptysis, non productive cough, parox nocturnal dyspnea, pleurisy, pleuritic pain, pneumonia, productive cough (sputum), wheezing. Cardiovascular: PRITCHARD (dyspnea on exertion). Denies: chest pain, edema, orthopnea, palpitations, parox nocturnal dyspnea. GI: Denies: abdominal pain, anorexia, constipation, diarrhea, dysphagia, GERD, hematemesis, hematochezia, hiatal hernia, melena, nausea, rectal pain, vomiting. Neuro: headache. Denies: bladder dysfunction, bowel dysfunction, change in LOC, confusion, dizziness, focal weakness, gait problem, lightheaded, numbness, seizure, slurred speech, spinning sensation, syncope, unable to speak, vision change, weakness. All systems rev neg: except as marked Objective General VS/I O: Vital Signs Date Temp Pulse Resp B/P B/P Mean Pulse Ox FiO2 09/29-09/30 98.2-99.7 62-153 15-19 100-147/63-84 75.4-105.3 92-98 08-13 Last Documented: Result Date Time Pulse Ox 92 09/30 1105 B/P 100/63 09/30 1105 B/P Mean 75.4 09/30 1105 FiO2 3 09/30 1105 O2 Delivery Nasal cannula 09/30 1105 Temp 99.0 09/30 1105 Pulse 68 09/30 1105 Resp 19 09/30 1105 O2 Flow Rate 2 09/30 0922 Vital Signs: Date Time Temp Pulse Resp B/P B/P Pulse O2 O2 Flow FiO2 Mean Ox Delivery Rate 09/30 1105 99.0 68 19 100/63 75.4 92 Nasal 3 cannula 09/30 0922 94 Nasal 2 28 cannula 09/30 0800 Nasal 2 cannula 09/30 0723 98.8 83 18 104/66 78.8 94 Nasal 4 cannula 09/30 0447 98.4 69 18 107/69 81.6 96 09/30 0111 99.7 153 15 103/68 79.3 94 09/29 2100 Nasal 4 cannula 09/29 2009 98.2 64 15 147/84 105.3 97 Nasal 4 cannula 09/29 1650 98.4 62 15 101/63 75.6 98 09/29 1631 95 Nasal 2 28 cannula 24 hour I O ending at 0700: 09/30 0700 09/29 1900 Intake Total 2200.00 Output Total 1500 Balance 700.00 Intake, IV 950.00 Intake, Oral 1250 Number 1 Bowel Movements Output, Urine 1500 PATIENT WEIGHT: Weight (lb): 220 Weight (oz): 14.45 Weight (kg): 100.200 Medications: Active Meds + DC'd Last 24 Hrs Magnesium Sulfate (MAGNESIUM SULFATE 2GM) 50 ML ONCE ONE IV Calcium Gluconate (Calcium Gluconate) 2,000 MG ONCE ONE IV (DC) Sodium Chloride (SODIUM CHLORIDE 0.9%) 100 ML Magnesium Sulfate (MAGNESIUM SULFATE 4GM) 100 ML ONCE ONE IV (DC) Calcium Chloride (CALCIUM CHLORIDE 1GM/10ML SYRINGE) 2 GM ONCE ONE IV ( DC) Sodium Chloride (SODIUM CHLORIDE 0.9%) 80 ML Potassium Chloride (K-DUR) 40 MEQ ONCE ONE PO (DC) Lactated Ringer's (LACTATED RINGERS) 1,000 ML BOLUS ONCE ONE IV (DC) Metoprolol Tartrate (LOPRESSOR) 5 MG Q5M PRN PRN IV Promethazine HCl (PHENERGAN) 12.5 MG BID PO Loperamide HCl (IMODIUM) 2 MG BID PRN PRN PO Thiamine HCl (THIAMINE ) 500 MG Q8HR IV (CKD) Sodium Chloride (SODIUM CHLORIDE 0.9%) 250 ML Furosemide (LASIX) 20 MG QAM PO (DC) Pyridoxine HCl (VITAMIN B-6) 50 MG DAILY PO Morphine Sulfate (morphine) 2 MG Q4H PRN PRN IV Dextrose/Water (DEXTROSE 50% SYR) 25 ML ASDIR PRN IV (CKD) Glucagon (GLUCAGON) 1 MG ASDIR PRN IM Hydromorphone HCl (DILAUDID) 1 MG Q6H PRN PRN PO Insulin Human Lispro (HumaLOG) MODERATE DOSE SCALE ASDIR SUBQ Lactated Ringer's (LACTATED RINGERS) 1,000 ML .Q10H IV Hydralazine HCl (APRESOLINE) 10 MG Q6H PRN PRN IV Nitroglycerin (NITROQUICK BOTTLE) 0.4 MG Q5M PRN PRN SL Ondansetron HCl (ZOFRAN 4 MG/2 ML INJ) 4 MG Q4H PRN PRN IV Apixaban (ELIQUIS) 5 MG BID PO Metoprolol Tartrate (LOPRESSOR) 12.5 MG BID PO Physical Exam General appearance: chronically ill appearing, alert, awake, oriented Head/Eyes: atraumatic, clear cornea, EOMI, PERRLA Neck: full range of motion, supple/no meningismus Cardiovascular: normal heart sounds, regular rate rhythm, no murmur Respiratory: crackles, on oxygen, rhonchi, wheezing Abdomen: non-tender, normal bowel sounds, soft Extremities: moves all, no edema Neuro/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: alert, oriented X 3, normal speech Results Findings/Data: Laboratory Tests 09/30 09/30 09/30 09/29 09/29 1103 0446 7 2007 165 Chemistry Sodium (137 - 145 mmol/L) 135 L Potassium (3.4 - 5.0 mmol/L) 3.1 L Chloride (98 - 107 mmol/L) 102 Carbon Dioxide (22 - 30 mmol/L) 29 Anion Gap 7 BUN (9 - 20 mg/dL) 6 L Creatinine (0.7 - 1.3 mg/dL) 0.5 L Glomerular Filtr Rate (mL/min) 107 Glucose (74 - 106 mg/dL) 128 H POC Glucose (74 - 106 MG/DL) 151 H 120 H 113 H 155 H Calcium (8.4 - 10.2 mg/dL) 7.9 L Magnesium (1.6 - 2.3 mg/dL) 1.0 L Total Bilirubin (0.2 - 1.3 mg/dL) 1.1 Conjugated Bilirubin (0 - 0.3 mg/dL) 0 Unconjugated Bilirubin (0 - 1.1 mg/dL) 0.9 AST (15 - 46 U/L) 40 ALT (0 - 49 U/L) 24 Total Alk Phosphatase (38 - 126 U/L) 98 Total Protein (6.3 - 8.2 g/dL) 6.3 Albumin (3.5 - 5.0 g/dL) 2.8 L Specimen Hemolysis (0 - 100 Index/DL) < 15 Laboratory Tests 09/30 0417 Hematology WBC (5.0 - 12.0 x10 3/uL) 9.2 RBC (4.70 - 6.10 x10 6/uL) 3.98 L Hgb (14.0 - 18.0 g/dL) 12.4 L Hct (37.0 - 49.0 %) 36.4 L MCV (80 - 94 fL) 92 MCH (27 - 31 pg) 31.2 H MCHC (33 - 37 g/dL) 34.1 RDW (11.5 - 15.5 %) 13.1 Plt Count (130 - 400 x10 3/uL) 225 MPV (9.4 - 16.4 fL) 9.5 Neut % (Auto) (43 - 65 %) 68.1 H Lymph % (Auto) (20.5 - 45.5 %) 16.7 L [place] % (Auto) (5.5 - 11.7 %) 10.8 Eos % (Auto) (0.9 - 2.9 %) 3.4 H Baso % (Auto) (0.2 - 1.0 %) 0.8 Neut # (Auto) (2.2 - 4.8 x10 3/uL) 6.29 H Lymph # (Auto) (1.3 - 2.9 x10 3/uL) 1.54 [place] # (Auto) (0.3 - 0.8 x10 3/uL) 1.00 H Eos # (Auto) (0.0 - 0.2 x10 3/uL) 0.31 H Baso # (Auto) (0.0 - 0.1 x10 3/uL) 0.07 Immature Gran % (0.0 - 2.0 %) 0.2 Nucleated RBC % (0 - 1.0 %) 0.0 Diagnosis, Assessment Plan Free Text A P: #Active pulmonary TB #A.fib #HTN #DM #CAD -Patient reported diarrhea, N/V has resolved after coming here -start RIPE thereapy with rifabutin instead of rifampin and drug interaction with eliquis -might need to replace INH for moxifloxacin as there is national shortage of INH ?? -Patient needs to have health department service set up -TB and TB medication education in spenish -dc fluids as he seems volume overloaded toady Plan d/w attending Dr. Johnson Orders: Procedure Date/time Status Educate/Teach Patient + 09/30 1738 Active CASE MANAGEMENT CONSULT 10/01 1735 Active at 1743 at 1832 RPT #:[id number] END OF REPORT [facility] 2022-09-30 07:00:00 [facility] REPORT#:[id number] REPORT STATUS: Signed DATE:09/30/22 TIME: 0700 PATIENT: SEYMOUR SNOW UNIT #: [id number] ROOM/BED: [address] : 48 AGE: 72 SEX: M ATTEND: Zander Gaston MD ADM AUTHOR: Elan Madrid MD R1 * ALL edits or amendments must be made on the electronic/computer document * Elan Madrid 09/30/22 0700: Subjective Chief complaint: Nausea vomiting, diarrhea Comments: Pt seen and examined at the bedside. acute overnight event was that pt went into afib with rvr, metoprolol was given the pt is now rate controlled but still in afib. Reported no new complaints. No nausea and vomiting/diarrhoea. Review of Systems Constitutional: Denies: chills, fatigue. Skin: Denies: abrasion, bruising. Allergy/Immun: Denies: allergic reaction, anaphylaxis. Eyes: Denies: redness, discharge. ENT: Denies: ear drainage, ear ringing. Respiratory: Denies: PRITCHARD (dyspnea on exertion), hemoptysis. Cardiovascular: Denies: chest pain, PRITCHARD (dyspnea on exertion). GI: Denies: abdominal pain, anorexia. : Denies: dysuria, flank pain. Musculoskeletal: Denies: arthritis, extremity pain. Heme: Denies: adenopathy, bleeding. Endocrine: Denies: cold intolerance, heat intolerance. Neuro: Denies: bladder dysfunction, bowel dysfunction. Psych: Denies: agitation, anxiety. All systems rev neg: except as noted Objective General VS/I O: Vital Signs: Date Time Temp Pulse Resp B/P B/P Pulse O2 O2 Flow FiO2 Mean Ox Delivery Rate 09/30 1105 99.0 68 19 100/63 75.4 92 Nasal 3 cannula 09/30 0922 94 Nasal 2 28 cannula 09/30 0800 Nasal 2 cannula 09/30 0723 98.8 83 18 104/66 78.8 94 Nasal 4 cannula 09/30 0447 98.4 69 18 107/69 81.6 96 09/30 0111 99.7 153 15 103/68 79.3 94 09/29 2100 Nasal 4 cannula 09/29 2009 98.2 64 15 147/84 105.3 97 Nasal 4 cannula 09/29 1650 98.4 62 15 101/63 75.6 98 09/29 1631 95 Nasal 2 28 cannula 24 hour I O ending at 0700: 09/30 0700 09/29 1900 Intake Total 2200.00 Output Total 1500 Balance 700.00 Intake, IV 950.00 Intake, Oral 1250 Number 1 Bowel Movements Output, Urine 1500 PATIENT WEIGHT: Weight (lb): 220 Weight (oz): 14.45 Weight (kg): 100.200 Temperature maximum: 98 Medications: Active Meds + DC'd Last 24 Hrs Magnesium Sulfate (MAGNESIUM SULFATE 2GM) 50 ML ONCE ONE IV Calcium Gluconate (Calcium Gluconate) 2,000 MG ONCE ONE IV (DC) Sodium Chloride (SODIUM CHLORIDE 0.9%) 100 ML Magnesium Sulfate (MAGNESIUM SULFATE 4GM) 100 ML ONCE ONE IV (DC) Calcium Chloride (CALCIUM CHLORIDE 1GM/10ML SYRINGE) 2 GM ONCE ONE IV ( DC) Sodium Chloride (SODIUM CHLORIDE 0.9%) 80 ML Potassium Chloride (K-DUR) 40 MEQ ONCE ONE PO (DC) Lactated Ringer's (LACTATED RINGERS) 1,000 ML BOLUS ONCE ONE IV (DC) Metoprolol Tartrate (LOPRESSOR) 5 MG Q5M PRN PRN IV Promethazine HCl (PHENERGAN) 12.5 MG BID PO Loperamide HCl (IMODIUM) 2 MG BID PRN PRN PO Thiamine HCl (THIAMINE ) 500 MG Q8HR IV (CKD) Sodium Chloride (SODIUM CHLORIDE 0.9%) 250 ML Furosemide (LASIX) 20 MG QAM PO (DC) Pyridoxine HCl (VITAMIN B-6) 50 MG DAILY PO Morphine Sulfate (morphine) 2 MG Q4H PRN PRN IV Dextrose/Water (DEXTROSE 50% SYR) 25 ML ASDIR PRN IV (CKD) Glucagon (GLUCAGON) 1 MG ASDIR PRN IM Hydromorphone HCl (DILAUDID) 1 MG Q6H PRN PRN PO Insulin Human Lispro (HumaLOG) MODERATE DOSE SCALE ASDIR SUBQ Lactated Ringer's (LACTATED RINGERS) 1,000 ML .Q10H IV Hydralazine HCl (APRESOLINE) 10 MG Q6H PRN PRN IV Nitroglycerin (NITROQUICK BOTTLE) 0.4 MG Q5M PRN PRN SL Ondansetron HCl (ZOFRAN 4 MG/2 ML INJ) 4 MG Q4H PRN PRN IV Apixaban (ELIQUIS) 5 MG BID PO Metoprolol Tartrate (LOPRESSOR) 12.5 MG BID PO Dietitian nutrition assessment The data set between the solid lines has been imported from the dietitian's assessment. BMI Calculated: 28.4 Nutrition related diagnosis: Nutrition diagnosis details: Nutrition problem: Nutrition etiology: Nutrition signs and symptoms: Nutrition prescription: Dietitian name: Assessment completed: Physical Exam General appearance: alert, awake, oriented Head/Eyes: atraumatic, normocephalic ENT: dry mucosal membrane Cardiovascular: normal heart sounds, regular rate rhythm Respiratory: clear to auscultation, symmetric expansion, no distress Abdomen: non-tender, normal bowel sounds, soft, no distention Extremities: moves all, no edema Musculoskeletal: normal inspection Neuro/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: alert, oriented X 3, normal speech Psychiatry: normal affect, normal judgment/insight, normal mood Results Findings/Data: Laboratory Tests 09/30 09/30 09/30 09/29 09/29 1103 0736 416 2007 1653 Chemistry Sodium (137 - 145 mmol/L) 135 L Potassium (3.4 - 5.0 mmol/L) 3.1 L Chloride (98 - 107 mmol/L) 102 Carbon Dioxide (22 - 30 mmol/L) 29 Anion Gap 7 BUN (9 - 20 mg/dL) 6 L Creatinine (0.7 - 1.3 mg/dL) 0.5 L Glomerular Filtr Rate (mL/min) 107 Glucose (74 - 106 mg/dL) 128 H POC Glucose (74 - 106 MG/DL) 151 H 120 H 113 H 155 H Calcium (8.4 - 10.2 mg/dL) 7.9 L Magnesium (1.6 - 2.3 mg/dL) 1.0 L Total Bilirubin (0.2 - 1.3 mg/dL) 1.1 Conjugated Bilirubin (0 - 0.3 mg/dL) 0 Unconjugated Bilirubin (0 - 1.1 mg/dL) 0.9 AST (15 - 46 U/L) 40 ALT (0 - 49 U/L) 24 Total Alk Phosphatase (38 - 126 U/L) 98 Total Protein (6.3 - 8.2 g/dL) 6.3 Albumin (3.5 - 5.0 g/dL) 2.8 L Specimen Hemolysis (0 - 100 Index/DL) < 15 Laboratory Tests 09/30 416 Hematology WBC (5.0 - 12.0 x10 3/uL) 9.2 RBC (4.70 - 6.10 x10 6/uL) 3.98 L Hgb (14.0 - 18.0 g/dL) 12.4 L Hct (37.0 - 49.0 %) 36.4 L MCV (80 - 94 fL) 92 MCH (27 - 31 pg) 31.2 H MCHC (33 - 37 g/dL) 34.1 RDW (11.5 - 15.5 %) 13.1 Plt Count (130 - 400 x10 3/uL) 225 MPV (9.4 - 16.4 fL) 9.5 Neut % (Auto) (43 - 65 %) 68.1 H Lymph % (Auto) (20.5 - 45.5 %) 16.7 L [place] % (Auto) (5.5 - 11.7 %) 10.8 Eos % (Auto) (0.9 - 2.9 %) 3.4 H Baso % (Auto) (0.2 - 1.0 %) 0.8 Neut # (Auto) (2.2 - 4.8 x10 3/uL) 6.29 H Lymph # (Auto) (1.3 - 2.9 x10 3/uL) 1.54 [place] # (Auto) (0.3 - 0.8 x10 3/uL) 1.00 H Eos # (Auto) (0.0 - 0.2 x10 3/uL) 0.31 H Baso # (Auto) (0.0 - 0.1 x10 3/uL) 0.07 Immature Gran % (0.0 - 2.0 %) 0.2 Nucleated RBC % (0 - 1.0 %) 0.0 Results: vital signs reviewed, vital signs stable Diagnosis, Assessment Plan Code status: full code Free Text DxA P Notes Free text DxA P notes: Patient is a 72-year-old male with past medical history of hypertension, diabetes, CAD, A-fib, recently diagnosed TB on treatment who presented to the ED with complaints of nausea, vomiting, diarrhea for the past 5 days is being admitted for irretractable nausea, vomiting, diarrhea likely secondary to gastroenteritis. #Gastroenteritis Patient presenting with nausea, vomiting, diarrhea ongoing for approximately 5 days with some associated abdominal pain. -continue symptomatic management at this time -IV fluids -soft diet -Phenergan scheduled -prn zofran -imodium #Pulmonary tuberculosis Patient was recently diagnosed with pulmonary tuberculosis on 4 agent therapy. Chest x-ray obtained here does show cavitary lesion -Pt started on TB meds 5 days ago via [facility]. -I.D consulted recs no TB meds first B1 high dose or else pt will develop resistance to TB drugs. -hold on TB meds. Till the Gi sx resolved. #Diabetes melitis Patient with history of type 2 diabetes -Hold home metformin, glipizide -MDSSI #Hypertension Patient with history of hypertension -Resumed home Lasix, Lopressor #A-fib chadvasc 3 Patient with history of A-fib -rate controlled but in afib on tele -Iv Metoprolol 5mg 2 doses 09/30/22. 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 -pt repetedly has low mag of 1. -mag given still continious low mag level -Nephrology consulted appreciate recs. CODE STATUS: Full code DVT VTE: Eliquis Dier:soft diet Plan: f/u mag levels, pt/ot and nephrology recs hold on TB meds, continue B1, monitor for sx improvement. f/u with I.D recs. As d/w attending Dr Gaston. Zander Gaston 09/30/22 1406: Attestations Physician Attestation Agree w/findings plan: I personally saw and examined the patient on 09/30/22. I have reviewed and agree with the resident's findings, including all diagnostic interpretations and treatment plan as written. * my personal evaluation is [ ] I have extensively/independently reviewed all lab work (cbc, bmp, Mg) I have ordered these pertinent labs/test: check cbc, bmp and Mg in the AM Risk of complications and/or Morbidity or Mortality of Patient Management- Moderate risk. pt has acute gastroenteritis suspect side affect from TB meds. i spoke with ID and we will hold all TB meds and reintroduce as an outpt in stepwise fashion. replete Mag and K+. consult nephrology given persistent hypokalemia/hypomagnesemia. at 1402 at 1407 RPT #:[id number] END OF REPORT [facility] 2022-09-29 07:06:00 ([facility] Hospitalist Progress Note REPORT#:[id number] REPORT STATUS: Signed DATE:09/29/22 TIME: 0706 PATIENT: SEYMOUR SNOW UNIT #: [id number] [address] AGE: 72 SEX: M ATTEND: Zander Gaston MD ADM AUTHOR: Elan Madrid MD R1 * ALL edits or amendments must be made on the electronic/computer document * Elan Madrid 09/29/22 0706: Subjective Chief complaint: Nausea vomiting, diarrhea Comments: Pt seen and examined at the bedside. No acute overnight events. Reported he has vomiting and no diarrhea. Reported he is feeling weak and no abdominal pain. Denied fever, chills and shortness of breath. Review of Systems Constitutional: Denies: chills, fatigue. Skin: Denies: abrasion, bruising. Allergy/Immun: Denies: allergic reaction, anaphylaxis. Eyes: Denies: redness, discharge. ENT: Denies: ear drainage, ear ringing. Respiratory: Denies: PRITCHARD (dyspnea on exertion), hemoptysis. Cardiovascular: Denies: chest pain, PRITCHARD (dyspnea on exertion). GI: Reports: nausea, vomiting. Denies: abdominal pain, anorexia. : Denies: dysuria, flank pain. Musculoskeletal: Denies: arthritis, extremity pain. Heme: Denies: adenopathy, bleeding. Endocrine: Denies: cold intolerance, heat intolerance. Neuro: Denies: bladder dysfunction, bowel dysfunction. Psych: Denies: agitation, anxiety. All systems rev neg: except as noted Objective General VS/I O: Vital Signs: Date Time Temp Pulse Resp B/P B/P Pulse O2 O2 Flow FiO2 Mean Ox Delivery Rate 09/29 1225 97.9 70 14 107/71 82.8 94 09/29 1001 99.3 78 15 112/73 85.8 93 09/29 0457 98.4 79 15 100/64 76.0 94 09/29 0007 98.2 67 14 99/63 74.9 09/28 2032 97.9 86 16 109/72 84.1 95 09/29 1999 Nasal 2 cannula 09/28 1655 98.2 66 20 113/73 86.5 95 Nasal 4 cannula 24 hour I O ending at 0700: 14 0700 /13 1900 Intake Total 2350.00 Output Total 1700 Balance 650.00 Intake, IV 1350.00 Intake, Oral 1000 Output, Urine 1700 PATIENT WEIGHT: Weight (lb): 220 Weight (oz): 14.45 Weight (kg): 100.200 Temperature maximum: 98 Medications: Active Meds + DC'd Last 24 Hrs Promethazine HCl (PHENERGAN) 12.5 MG BID PO Magnesium Sulfate (MAGNESIUM SULFATE 2GM) 50 ML ONCE ONE IV (DC) Loperamide HCl (IMODIUM) 2 MG BID PRN PRN PO Potassium Chloride (K-DUR) 40 MEQ ONCE ONE PO (DC) Magnesium Sulfate (MAGNESIUM SULFATE 4GM) 100 ML ONCE ONE IV (DC) Thiamine HCl (THIAMINE ) 500 MG Q8HR IV (CKD) Sodium Chloride (SODIUM CHLORIDE 0.9%) 250 ML Ceftriaxone Sodium (ROCEPHIN) 1,000 MG DAILY IV (DC) Sodium Chloride (NACL 0.9%) 10 ML Ethambutol HCl (MYAMBUTOL) 1,200 MG DAILY PO (DC) Furosemide (LASIX) 20 MG QAM PO Isoniazid (ISONIAZID,INH) 300 MG DAILY PO (DC) Pyrazinamide (PYRAZINAMIDE) 1,500 MG DAILY PO (DC) Pyridoxine HCl (VITAMIN B-6) 50 MG DAILY PO Rifampin (rifAMPin) 600 MG DAILY PO (DC) Morphine Sulfate (morphine) 2 MG Q4H PRN PRN IV Dextrose/Water (DEXTROSE 50% SYR) 25 ML ASDIR PRN IV (CKD) Glucagon (GLUCAGON) 1 MG ASDIR PRN IM Hydromorphone HCl (DILAUDID) 1 MG Q6H PRN PRN PO Insulin Human Lispro (HumaLOG) MODERATE DOSE SCALE ASDIR SUBQ Lactated Ringer's (LACTATED RINGERS) 1,000 ML .Q10H IV Hydralazine HCl (APRESOLINE) 10 MG Q6H PRN PRN IV Nitroglycerin (NITROQUICK BOTTLE) 0.4 MG Q5M PRN PRN SL Ondansetron HCl (ZOFRAN 4 MG/2 ML INJ) 4 MG Q4H PRN PRN IV Apixaban (ELIQUIS) 5 MG BID PO Metoprolol Tartrate (LOPRESSOR) 12.5 MG BID PO Dietitian nutrition assessment The data set between the solid lines has been imported from the dietitian's assessment. BMI Calculated: 28.4 Nutrition related diagnosis: Nutrition diagnosis details: Nutrition problem: Nutrition etiology: Nutrition signs and symptoms: Nutrition prescription: Dietitian name: Assessment completed: Physical Exam General appearance: alert, awake, oriented Head/Eyes: atraumatic, normocephalic ENT: dry mucosal membrane Cardiovascular: normal heart sounds, regular rate rhythm Respiratory: clear to auscultation, symmetric expansion, no distress Abdomen: non-tender, normal bowel sounds, soft, no distention Extremities: moves all, no edema Musculoskeletal: normal inspection Neuro/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: alert, oriented X 3, normal speech Psychiatry: normal affect, normal judgment/insight, normal mood Results Findings/Data: Laboratory Tests 09/29 09/29 09/28 5291 [id number] Chemistry Sodium (137 - 145 mmol/L) 136 L Potassium (3.4 - 5.0 mmol/L) 3.4 Chloride (98 - 107 mmol/L) 103 Carbon Dioxide (22 - 30 mmol/L) 31 H Anion Gap 6 BUN (9 - 20 mg/dL) 10 Creatinine (0.7 - 1.3 mg/dL) 0.5 L Glomerular Filtr Rate (mL/min) 107 Glucose (74 - 106 mg/dL) 125 H POC Glucose (74 - 106 MG/DL) 148 H 150 H Calcium (8.4 - 10.2 mg/dL) 8.1 L Magnesium (1.6 - 2.3 mg/dL) 1.0 L Total Bilirubin (0.2 - 1.3 mg/dL) 1.1 Conjugated Bilirubin (0 - 0.3 mg/dL) 0 Unconjugated Bilirubin (0 - 1.1 mg/dL) 0.8 AST (15 - 46 U/L) 45 ALT (0 - 49 U/L) 24 Total Alk Phosphatase (38 - 126 U/L) 99 Total Protein (6.3 - 8.2 g/dL) 6.3 Albumin (3.5 - 5.0 g/dL) 2.9 L Specimen Hemolysis (0 - 100 Index/DL) < 15 Laboratory Tests 09/29 0459 Hematology WBC (5.0 - 12.0 x10 3/uL) 8.4 RBC (4.70 - 6.10 x10 6/uL) 3.83 L Hgb (14.0 - 18.0 g/dL) 11.8 L Hct (37.0 - 49.0 %) 35.0 L MCV (80 - 94 fL) 91 MCH (27 - 31 pg) 30.8 MCHC (33 - 37 g/dL) 33.7 RDW (11.5 - 15.5 %) 13.2 Plt Count (130 - 400 x10 3/uL) 229 MPV (9.4 - 16.4 fL) 9.5 Neut % (Auto) (43 - 65 %) 62.9 Lymph % (Auto) (20.5 - 45.5 %) 19.7 L [place] % (Auto) (5.5 - 11.7 %) 11.9 H Eos % (Auto) (0.9 - 2.9 %) 4.5 H Baso % (Auto) (0.2 - 1.0 %) 0.8 Neut # (Auto) (2.2 - 4.8 x10 3/uL) 5.27 H Lymph # (Auto) (1.3 - 2.9 x10 3/uL) 1.65 [place] # (Auto) (0.3 - 0.8 x10 3/uL) 1.00 H Eos # (Auto) (0.0 - 0.2 x10 3/uL) 0.38 H Baso # (Auto) (0.0 - 0.1 x10 3/uL) 0.07 Immature Gran % (0.0 - 2.0 %) 0.2 Nucleated RBC % (0 - 1.0 %) 0.0 Results: vital signs reviewed, vital signs stable Diagnosis, Assessment Plan Code status: full code Additional comments: [facility] Advance Care Planning [yes] I confirmed that the patient's Advance Care Plan is present, code status is documented, or surrogate decision maker is listed in the patient s medical record. [SATISFIES MIPS PERFORMANCE] If Yes, Stop Here [] The patient s Advance Care plan is not present because: (select) [MIPS PERFORMANCE EXCEPTION/EXCLUSION] [] I confirmed today that the patient does not wish or was not able to name a surrogate decision maker or provide an Advance Care Plan. [] Hospice care is currently being provided or has been provided this calendar year [] I did NOT confirm today the presence of an Advance Care Plan or surrogate decision maker documented within the patient's medical record. [DOES NOT SATISFY MIPS PERFORMANCE] MIPS Med Reconciliation [yes] I have utilized all available immediate resources to obtain, update, or review the patient s current medications (including all prescriptions, over-the- counter products, herbals, cannabis/cannabidiol products, and vitamin/mineral/ dietary (nutritional) supplements). [SATISFIES MIPS PERFORMANCE] If Yes, Stop Here [] The patient is not eligible for medication reconciliation; the patient is in an emergent medical situation where delaying treatment would jeopardize the patient s health. [MIPS PERFORMANCE EXCEPTION/EXCLUSION] [] I did NOT confirm, update or review the patient's current list of medications today. [DOES NOT SATISFY MIPS PERFORMANCE] Free Text DxA P Notes Free text DxA P notes: Patient is a 72-year-old male with past medical history of hypertension, diabetes, CAD, A-fib, recently diagnosed TB on treatment who presented to the ED with complaints of nausea, vomiting, diarrhea for the past 5 days is being admitted for irretractable nausea, vomiting, diarrhea likely secondary to gastroenteritis. #Gastroenteritis Patient presenting with nausea, vomiting, diarrhea ongoing for approximately 5 days with some associated abdominal pain. -continue symptomatic management at this time -IV fluids -Clear liquid diet advanced to full liquid -Phenergan scheduled -prn zofran -imodium #Pulmonary tuberculosis Patient was recently diagnosed with pulmonary tuberculosis on 4 agent therapy. Chest x-ray obtained here does show cavitary lesion -Pt started on TB meds 5 days ago via [facility]. -I.D consulted recs no TB meds first B1 high dose or else pt will develop resistance to TB drugs. -hold on TB meds. Till the Gi sx resolved. #Diabetes melitis Patient with history of type 2 diabetes -Hold home metformin, glipizide -MDSSI #Hypertension Patient with history of hypertension -Resumed home Lasix, Lopressor #A-fib chadvasc 3 Patient with history of A-fib -Resumed home Eliquis and Lopressor CODE STATUS: Full code DVT VTE: Eliquis Dier:advanced to full liquid diet from clear liquid Plan: f/u mag levels, pt/ot. will further advance diet if no vomiting. hold on TB meds, continue B1, monitor for sx improvement. f/u with I.D recs. As d/w attending Dr Gaston. Zander Gaston 09/29/22 1201: Attestations Physician Attestation Agree w/findings plan: I personally saw and examined the patient on 09/29/22. I have reviewed and agree with the resident's findings, including all diagnostic interpretations and treatment plan as written. * my personal evaluation is [ ] I have extensively/independently reviewed all lab work (cbc, bmp, Mg) I have ordered these pertinent labs/test: check cbc, bmp and Mg in the AM Risk of complications and/or Morbidity or Mortality of Patient Management- Moderate risk. pt has acute gastroenteritis suspect side affect from TB meds. i spoke with ID and we will hold all TB meds and reintroduce as an outpt in stepwise fashion. replete Mag. Plan for d/c tomorrow. at 1236 at 0801 [facility] #:[id number] END OF REPORT [facility] 2022-09-28 13:26:00 [id number] [facility] [address] [place] [address] PATIENT NAME: SEYMOUR SNOW ADMIT DATE: 09/27/22 ACCOUNT NO: [id number] ROOM NO: 324T AGE: 72 REPORT TYPE: CONSULTATION SEX: M ADMITTING PHYSICIAN:Zander Gaston MD ATTENDING PHYSICIAN:Zander Gaston MD CONSULTATION DATE: INFECTIOUS DISEASE CONSULTATION REASON FOR CONSULTATION: Tuberculosis. HISTORY OF PRESENT ILLNESS: Mr. Ash come to the hospital, pleasant 72-year-old male, recently diagnosed with pulmonary tuberculosis at [facility], was brought to this facility because of intractable nausea, vomiting and diarrhea. The case was discussed with his family members over the phone. It seems that the patient had the same problem before even he went to the outside facility where he was diagnosed with pulmonary tuberculosis. The patient was started on 4 medicines, but it is clear that the patient cannot tolerate them. Upon admission, the patient remains afebrile. His vitals are stable except for a low average blood pressure. He is coughing all the time. The nausea and vomiting had improved. No more diarrhea according to the patient. Upon admission, he had a normal chemistry including relatively normal liver function tests. The patient had a white cell count with mild eosinophilia to 5.7. His HIV test is negative. Urinalysis was negative. Blood culture was sent. The chest x-ray showed 1 cm consolidation in the left upper lobe, perhaps associated with a cavitary area. Follow up with a CAT scan is needed. The patient has a leftward cardiac consolidation and scarring. Tiny amount of pleural fluid or pleural thickening in the right minor fissure is noted. PAST MEDICAL HISTORY: Significant for again, recently diagnosed tuberculosis at an outside facility, but we have no records, history of diabetes mellitus, hypertension, dyslipidemia and I went through his old records, he have a history of gallbladder disease, gallbladder abscess and then persistent elevation of lipase over the years. SOCIAL HISTORY: Negative x3. FAMILY HISTORY: Noncontributory. I asked his family members whether anybody has tuberculosis at home and the answer is no. CURRENT MEDICATIONS, AND ANTIBIOTICS: I went ahead and stopped all his tuberculosis medicines and antibiotics. OTHER MEDICATIONS: Apixaban, Lasix, metoprolol, pyridoxine, thiamine, hydromorphone, nitroglycerin, and other medications as needed. PHYSICAL EXAMINATION: PATIENT NAME: SEYMUOR SNOW GENERAL: The patient is awake. He has a little bit of discomfort. He is coughing all the time while I was in the room. VITAL SIGNS: His latest vitals are temperature of 36.6 and a pulse of 72, respirations 20, and not labored, blood pressure 115/72, satting 94% on 2 liters of nasal cannula. HEENT: There is no jaundice clinically. Oropharynx was not examined. LUNGS: The patient is coughing. CARDIOVASCULAR: Vitals are stable. ABDOMEN: Obese. EXTREMITIES: No edema. SKIN: He has no skin rash. LABORATORY DATA: Sodium 138, potassium 3.3, chloride 102, carbon dioxide 29, BUN and creatinine of 15 and 0.5. Liver functions with AST of 48. Liver enzymes, though are within normal. WBCs of 7.7, H and H 14.4 and 36.9, platelet count 159, 62% neutrophils and 5.7 eosinophils. HIV is negative. Urinalysis is positive for leukocyte esterase. Blood culture negative to date. I do not have a sputum. We have no radiological studies for his belly or the chest except for a chest x-ray, but in 2019, he had collection of fluid in the gallbladder fossa with persistent bilateral pleural effusions, atelectasis, and simple cyst in the right lobe of the liver. Chest x-ray showed 1 cm cavitary mass in the left upper lobe, retrocardiac infiltrates and bilateral scarring or pleural effusions. ASSESSMENT AND PLAN: In my opinion on this case: 1. There is no urgency treating him for tuberculosis at this time until we get his outside records and until we get a functional gastrointestinal tract before restarting his medicines, otherwise, we will develop resistance this way. 2. Unlikely that his tuberculosis will be the cause of his gastrointestinal symptoms unless they are related to gastrointestinal tuberculosis as well or gastrointestinal enteritis, which will be a real challenge. According to his family on the phone that these symptoms he had even before starting the treatment, but got worse. In any account, we need to stop his tuberculosis medicines. In looking at previous records, the patient has a history of pancreatitis in 2019 and the real etiology behind his nausea, vomiting and diarrhea needs to be assessed first before we jump into treating him for tuberculosis. Once we have a functional gastrointestinal, we can start his tuberculosis medicines piecemeal and introduced slowly without risking developing resistance and this can be done as an outpatient. For the time being we need to get the outside records, discontinue all his antibiotics, started high-dose thiamine, look for an explanation for his gastrointestinal symptoms and start nutrition and we will follow. Dictated By: Teodora Kinsey MD Date Dictated: 09/28/2022 13:26:13 Date Transcribed: 09/28/2022 17:47:38 EG/VITOR/MEDINA PATIENT NAME: SEYMOUR SNOW Receipt ID: [id number] Authenticated by Teodora Kinsey On 09/29/2022 05:50:41 PM at 0550 PATIENT NAME: SEYMOUR SNOW [facility] 2022-09-28 13:09:00 [facility] Infectious Dis. Progress Note REPORT#:[id number] REPORT STATUS: Signed DATE:09/28/22 TIME: 1309 PATIENT: SEYMOUR SNOW UNIT #: [id number] ROOM/BED: [address] : [address] AGE: 72 SEX: M ATTEND: Zander Gaston MD ADM AUTHOR: Teodora Kinsey MD * ALL edits or amendments must be made on the electronic/computer document * Subjective Chief complaint: 09-28-22 RECENT DIANOSIS OF PULMONAY TB HAS N/V/D ( NOT EVEN RELATED TO HIS MEDS ) Objective General VS/I O: Laboratory Tests 09/28/22 0550: [Embedded Image Not Available] 09/27/22 1447: [Embedded Image Not Available] Microbiology: 09/27 1501 STOOL: Clostridioides difficile Toxin Assay - ORD 09/27 144 BLOOD: Blood Culture - RES 09/27 144 BLOOD: Blood Culture - RES Current Medications Sig/Mary Start time Last Medication Dose Route Stop Time Status Admin Ceftriaxone Sodium 1,000 MG DAILY 09/28 899 DCr 09/28 Sodium Chloride 10 ML IV 10/04 901 1053 Ethambutol HCl 1,200 MG DAILY 09/28 899 DCr 09/28 PO 12/27 900 1054 Furosemide 20 MG QAM 09/28 899 AC 09/28 PO 12/27 900 1052 Isoniazid 300 MG DAILY 09/28 899 DCr 09/28 PO 12/27 900 1054 Pyrazinamide 1,500 MG DAILY 09/28 899 DCr 09/28 PO 08/11 0901 1054 Pyridoxine HCl 50 MG DAILY 09/28 09 AC 09/28 PO 12/27 0901 1053 Rifampin 600 MG DAILY 09/28 09 DCr 09/28 PO 12/27 0901 1051 Loperamide HCl 4 MG NOW ONE 09/28 0730 DC 09/28 PO 09/28 0731 1052 Magnesium Sulfate 100 ML ONCE ONE 09/28 0730 DC 09/28 IV 09/28 1129 1052 Morphine Sulfate 2 MG Q4H PRN PRN 09/28 0730 AC IV 10/03 0731 Potassium Chloride 40 MEQ ONCE ONE 09/28 07 DC 09/28 PO 09/28 0731 1051 Dextrose/Water 25 ML ASDIR PRN 09/28 0015 CKD IV 12/27 0016 Glucagon 1 MG ASDIR PRN 09/28 0015 AC IM 12/27 0016 Hydromorphone HCl 1 MG Q6H PRN PRN 09/28 0015 AC PO 10/03 0016 Insulin Human Lispro See Dose ASDIR 09/28 0015 AC Insts (1) SUBQ 12/27 0016 Lactated Ringer's 1,000 ML .Q10H 09/28 0015 AC 09/28 IV 12/27 0016 1053 Acetaminophen 650 MG Q6H PRN PRN 09/27 2114 CAN PO 12/27 2115 Hydralazine HCl 10 MG Q6H PRN PRN 09/27 211 AC IV 12/27 2115 Nitroglycerin 0.4 MG Q5M PRN PRN 09/27 211 AC SL 12/27 2115 Ondansetron HCl 4 MG Q4H PRN PRN 09/27 211 AC IV 12/26 2116 Apixaban 5 MG BID 09/27 2100 AC 09/28 PO 12/26 2101 1051 Metoprolol Tartrate 12.5 MG BID 09/27 2100 AC 09/28 PO 12/26 2101 1051 Sodium Chloride 5 ML Q12HR 09/27 2100 DC 09/27 IV 09/27 2330 2114 Ondansetron HCl 4 MG Q4H PRN PRN 09/27 1731 DC IV 05/ 2330 Sodium Chloride 5 ML ASDIR PRN 05 1730 DC IV 05 2330 Sodium Chloride 10 ML ASDIR PRN 05 1730 DC IV 05 2330 Sodium Chloride 250 ML ASDIR PRN 09/27 1730 DC IV 09/27 2330 Sodium Chloride 1,000 ML .[id number] 09/27 1730 DC / IV 09/27 2330 2114 Magnesium Sulfate 50 ML X1ED STA 09/27 1655 DC 05/ IV 09/27 1854 1706 Lactated Ringer's 2,850 ML X1ED STA 09/27 1427 DC 05/ IV 09/27 1428 1450 Piperacillin Sod/ 3.375 GM X1ED STA 09/27 1427 DC 05 Tazobactam Sod IV 09/27 1456 1451 Sodium Chloride 100 ML Dose Instructions: (1)Insulin Human Lispro: MODERATE DOSE SCALE Recent Impressions-Last 72 Hrs RADIOLOGY - XR CHEST 1 V 09/27 1545 Report Impression - Status: SIGNED Entered: 09/27/2022 1610 IMPRESSION: I centimeter consolidation in the left upper lobe perhaps associated with cavitary area. Follow-up CT scan of the chest is recommended. Leftward cardiac consolidation/scarring. Tiny amount of pleural fluid and/or pleural thickening in the right minor fissure again noted. Dictation/location code: H-94 Impression By: [email or web address] - Coleman Saldaña MD Vital Signs Date Temp Pulse Resp B/P B/P Mean Pulse Ox FiO2 09/27-09/28 36.6-36.9 72-114 15-24 81-127/54-83 65.7-97.3 90-97 Last Documented: Result Date Time Pulse Ox 94 09/28 1209 B/P 113/72 09/28 1209 B/P Mean 85.6 09/28 1209 O2 Delivery Nasal cannula 09/28 1209 O2 Flow Rate 4 09/28 1209 Temp 36.8 09/28 1209 Pulse 72 09/28 1209 Resp 20 09/28 1209 Vital Signs: Date Time Temp Pulse Resp B/P B/P Pulse O2 O2 Flow FiO2 Mean Ox Delivery Rate 09/28 1209 36.8 72 20 113/72 85.6 94 Nasal 4 cannula 09/28 0857 36.8 87 24 122/76 91.1 95 Nasal 4 cannula 09/28 0449 36.8 90 15 103/67 78.7 09/28 0200 Nasal 3 cannula 09/28 0115 36.6 86 15 127/83 97.3 97 Nasal 4 cannula 09/28 0030 83 108/69 85 96 09/28 0000 82 104/64 79 93 / 2300 84 97/54 66 92 09/27 2200 90 109/57 77 95 09/27 2130 88 122/72 89 94 / 2101 88 115/58 79 97 09/27 2000 85 106/64 81 95 / 1930 104/73 85 / 1900 87 101/69 81 90 / 1836 95 09/27 1830 79 106/70 83 91 / 1631 93 20 105/54 71 92 Room air 09/27 1520 100 18 119/56 77 92 Room air 09/27 1422 36.9 114 20 81/58 65.7 95 / 1422 36.9 114 20 81/58 65.7 95 24 hour I O ending at 0700: 09/28 0700 09/27 1900 Intake Total Output Total Balance Patient 100.2 kg 95 kg Weight Weight Bed scale Stated/Reported Measurement Method PATIENT WEIGHT: Weight (lb): 220 Weight (oz): 14.45 Weight (kg): 100.200 Physical Exam General appearance: awake Diagnosis, Assessment Plan Problem List/A P: 1. Diarrhea 2. Nausea vomiting 3. Pulmonary TB Free Text A P: 09-28-22 OPNION: THER IS NO URGENCY TREATING HIM FOR TB NEED OUTSIDE RECOREDS WE NEED A FUNCTIONAL GI BEFORE STARTING HIS MEDS, OTHER MIKE WILL DEVELOPE RESITATNCE/ TB KEANU NOT CAUSE HIS GI SYMPTS ( UNLESS HE HAS GI TB ) HAD H/O OF PANCREATITIS IN 2019 HIS MEDS NEED TO START PIECEMEAL AND INTRODUCED SLOWLY ( WITOHOUT RISKING DEVELPPEING RESITSNCE ).>> THIS CAN BE DONE OPT. FOR THE ITME BEING: D/C ALL MEDS START HIGH DOSE THIAMINE LOOK FOR EXPLANATION FOR HIS GI SYMPTS NUTRTION at 1318 RPT #:[id number] END OF REPORT [facility] 2022-09-28 07:13:00 [facility] Hospitalist Progress Note REPORT#:[id number] REPORT STATUS: Signed DATE:09/28/22 TIME: 712 PATIENT: SEYMOUR SNOW UNIT #: [id number] ROOM/BED: [address] : 48 AGE: 72 SEX: M ATTEND: Zander Gaston MD ADM AUTHOR: Elan Madrid MD R1 * ALL edits or amendments must be made on the electronic/computer document * Elan Madrid 09/28/22 0713: Subjective Chief complaint: Nausea vomiting, diarrhea Comments: Pt seen and examined at the bedside. No acute overnight events. Reported his nausea and vomiting are better no more diarrhoea. Denied fever, chills and abdominal pain. Reported he has cough and weakness. Review of Systems Constitutional: Denies: chills, fatigue. Skin: Denies: abrasion, bruising. Allergy/Immun: Denies: allergic reaction, anaphylaxis. Eyes: Denies: redness, discharge. ENT: Denies: ear drainage, ear ringing. Respiratory: Reports: non productive cough. Denies: PRITCHARD (dyspnea on exertion), hemoptysis. Cardiovascular: Denies: chest pain, PRITCHARD (dyspnea on exertion). GI: Denies: abdominal pain, anorexia. : Denies: dysuria, flank pain. Musculoskeletal: Denies: arthritis, extremity pain. Heme: Denies: adenopathy, bleeding. Endocrine: Denies: cold intolerance, heat intolerance. Neuro: Denies: bladder dysfunction, bowel dysfunction. Psych: Denies: agitation, anxiety. All systems rev neg: except as noted Free Text ROS Notes Free Text ROS Notes: Negative except as otherwise mentioned Objective General VS/I O: Vital Signs: Date Time Temp Pulse Resp B/P B/P Pulse O2 O2 Flow FiO2 Mean Ox Delivery Rate 09/28 1209 98.2 72 20 113/72 85.6 94 Nasal 4 cannula 09/28 0857 98.2 87 24 122/76 91.1 95 Nasal 4 cannula 09/28 0449 98.2 90 15 103/67 78.7 09/28 0200 Nasal 3 cannula 09/28 0115 97.9 86 15 127/83 97.3 97 Nasal 4 cannula 09/28 0030 83 108/69 85 96 09/28 0000 82 104/64 79 93 09/27 2300 84 97/54 66 92 09/270 90 109/57 77 95 09/270 88 122/72 89 94 09/27 2100 88 115/58 79 97 09/28 1999 85 106/64 81 95 09/27 1930 104/73 85 09/27 1900 87 101/69 81 90 09/27 1836 95 09/27 1830 79 106/70 83 91 09/27 1631 93 20 105/54 71 92 Room air 09/27 1520 100 18 119/56 77 92 Room air 09/27 1422 98.4 114 20 81/58 65.7 95 09/27 1422 98.4 114 20 81/58 65.7 95 24 hour I O ending at 0700: 09/28 0700 09/27 1900 Intake Total Output Total Balance Patient 100.2 kg 95 kg Weight Weight Bed scale Stated/Reported Measurement Method PATIENT WEIGHT: Weight (lb): 220 Weight (oz): 14.45 Weight (kg): 100.200 Temperature maximum: 98 Medications: Active Meds + DC'd Last 24 Hrs Thiamine HCl (THIAMINE ) 500 MG Q8HR IV (UNV) Sodium Chloride (SODIUM CHLORIDE 0.9%) 250 ML Ceftriaxone Sodium (ROCEPHIN) 1,000 MG DAILY IV (DC) Sodium Chloride (NACL 0.9%) 10 ML Ethambutol HCl (MYAMBUTOL) 1,200 MG DAILY PO (DC) Furosemide (LASIX) 20 MG QAM PO Isoniazid (ISONIAZID,INH) 300 MG DAILY PO (DC) Pyrazinamide (PYRAZINAMIDE) 1,500 MG DAILY PO (DC) Pyridoxine HCl (VITAMIN B-6) 50 MG DAILY PO Rifampin (rifAMPin) 600 MG DAILY PO (DC) Loperamide HCl (IMODIUM) 4 MG NOW ONE PO (DC) Magnesium Sulfate (MAGNESIUM SULFATE 4GM) 100 ML ONCE ONE IV (DC) Morphine Sulfate (morphine) 2 MG Q4H PRN PRN IV Potassium Chloride (K-DUR) 40 MEQ ONCE ONE PO (DC) Dextrose/Water (DEXTROSE 50% SYR) 25 ML ASDIR PRN IV (CKD) Glucagon (GLUCAGON) 1 MG ASDIR PRN IM Hydromorphone HCl (DILAUDID) 1 MG Q6H PRN PRN PO Insulin Human Lispro (HumaLOG) MODERATE DOSE SCALE ASDIR SUBQ Lactated Ringer's (LACTATED RINGERS) 1,000 ML .Q10H IV Acetaminophen (TYLENOL REGULAR) 650 MG Q6H PRN PRN PO (CAN) Hydralazine HCl (APRESOLINE) 10 MG Q6H PRN PRN IV Nitroglycerin (NITROQUICK BOTTLE) 0.4 MG Q5M PRN PRN SL Ondansetron HCl (ZOFRAN 4 MG/2 ML INJ) 4 MG Q4H PRN PRN IV Apixaban (ELIQUIS) 5 MG BID PO Metoprolol Tartrate (LOPRESSOR) 12.5 MG BID PO Sodium Chloride (SODIUM CHLORIDE FLUSH) 5 ML Q12HR IV (DC) Ondansetron HCl (ZOFRAN 4 MG/2 ML INJ) 4 MG Q4H PRN PRN IV (DC) Sodium Chloride (SODIUM CHLORIDE FLUSH) 5 ML ASDIR PRN IV (DC) Sodium Chloride (NACL 0.9%) 10 ML ASDIR PRN IV (DC) Sodium Chloride (SODIUM CHLORIDE 0.9%) 250 ML ASDIR PRN IV (DC) Sodium Chloride (SODIUM CHLORIDE 0.9%) 1,000 ML .[id number] IV (DC) Magnesium Sulfate (MAGNESIUM SULFATE 2GM) 50 ML X1ED STA IV (DC) Lactated Ringer's (LACTATED RINGERS) 2,850 ML X1ED STA IV (DC) Piperacillin Sod/Tazobactam Sod (ZOSYN) 3.375 GM X1ED STA IV (DC) Sodium Chloride (SODIUM CHLORIDE 0.9% MBP) 100 ML Dietitian nutrition assessment The data set between the solid lines has been imported from the dietitian's assessment. BMI Calculated: 28.4 Nutrition related diagnosis: Nutrition diagnosis details: Nutrition problem: Nutrition etiology: Nutrition signs and symptoms: Nutrition prescription: Dietitian name: Assessment completed: Physical Exam General appearance: alert, awake, oriented Head/Eyes: atraumatic, normocephalic ENT: dry mucosal membrane Cardiovascular: normal heart sounds, regular rate rhythm Respiratory: clear to auscultation, symmetric expansion, no distress Abdomen: non-tender, normal bowel sounds, soft, no distention Extremities: moves all, no edema Musculoskeletal: normal inspection Neuro/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: alert, oriented X 3, normal speech Psychiatry: normal affect, normal judgment/insight, normal mood Results Findings/Data: Laboratory Tests 09/28 09/27 09/27 09/27 09/27 0550 1558 1558 1447 1447 Chemistry Sodium (137 - 145 mmol/L) 138 Potassium (3.4 - 5.0 mmol/L) 3.3 L Chloride (98 - 107 mmol/L) 102 Carbon Dioxide (22 - 30 mmol/L) 29 Anion Gap 10 BUN (9 - 20 mg/dL) 13 Creatinine (0.7 - 1.3 mg/dL) 0.5 L Glomerular Filtr Rate (mL/min) 107 Glucose (74 - 106 mg/dL) 133 H Lactic Acid (0.7 - 2.0 mmol/L) 1.9 Calcium (8.4 - 10.2 mg/dL) 8.9 Phosphorus (2.5 - 4.5 mg/dL) 3.3 Magnesium (1.6 - 2.3 mg/dL) 1.1 L 1.0 L Total Bilirubin (0.2 - 1.3 mg/dL) 0.8 Conjugated Bilirubin (0 - 0.3 mg/dL) 0 Unconjugated Bilirubin (0 - 1.1 0.2 mg/dL) AST (15 - 46 U/L) 48 H ALT (0 - 49 U/L) 23 Total Alk Phosphatase (38 - 126 U/L) 122 Total Protein (6.3 - 8.2 g/dL) 6.3 Albumin (3.5 - 5.0 g/dL) 2.9 L Triglycerides (mg/dL) 150 Cholesterol (mg/dL) 171 LDL Cholesterol Measurd (32 - 99 104.37 H mg/dL) HDL Cholesterol (40 - 59 mg/dL) 28 L Coronary Risk Interp 6.11 Lipase (23 - 300 U/L) 371 H Specimen Hemolysis (0 - 100 < 15 Index/DL) 09/27 1447 Chemistry Sodium (137 - 145 mmol/L) 139 Potassium (3.4 - 5.0 mmol/L) 3.8 Chloride (98 - 107 mmol/L) 98 Carbon Dioxide (22 - 30 mmol/L) 32 H Anion Gap 13 BUN (9 - 20 mg/dL) 17 Creatinine (0.7 - 1.3 mg/dL) 0.9 Glomerular Filtr Rate (mL/min) 90 Glucose (74 - 106 mg/dL) 178 H Calcium (8.4 - 10.2 mg/dL) 9.6 Total Bilirubin (0.2 - 1.3 mg/dL) 1.2 Conjugated Bilirubin (0 - 0.3 mg/dL) 0 Unconjugated Bilirubin (0 - 1.1 mg/dL) 0.6 AST (15 - 46 U/L) 43 ALT (0 - 49 U/L) 25 Total Alk Phosphatase (38 - 126 U/L) 156 H Troponin I (0.012 - 0.033 ng/mL) < 0.012 L Total Protein (6.3 - 8.2 g/dL) 7.4 Albumin (3.5 - 5.0 g/dL) 3.6 Specimen Hemolysis (0 - 100 Index/DL) < 15 Laboratory Tests 09/28 09/27 0550 1447 Hematology WBC (5.0 - 12.0 x10 3/uL) 7.7 10.1 RBC (4.70 - 6.10 x10 6/uL) 4.03 L 4.63 L Hgb (14.0 - 18.0 g/dL) 12.4 L 14.1 Hct (37.0 - 49.0 %) 36.9 L 41.4 MCV (80 - 94 fL) 92 89 MCH (27 - 31 pg) 30.8 30.5 MCHC (33 - 37 g/dL) 33.6 34.1 RDW (11.5 - 15.5 %) 13.3 13.4 Plt Count (130 - 400 x10 3/uL) 259 314 MPV (9.4 - 16.4 fL) 9.5 9.3 L Neut % (Auto) (43 - 65 %) 62.2 67.7 H Lymph % (Auto) (20.5 - 45.5 %) 20.5 17.8 L [place] % (Auto) (5.5 - 11.7 %) 10.4 10.7 Eos % (Auto) (0.9 - 2.9 %) 5.7 H 2.5 Baso % (Auto) (0.2 - 1.0 %) 0.8 0.8 Neut # (Auto) (2.2 - 4.8 x10 3/uL) 4.78 6.83 H Lymph # (Auto) (1.3 - 2.9 x10 3/uL) 1.58 1.79 [place] # (Auto) (0.3 - 0.8 x10 3/uL) 0.80 1.08 H Eos # (Auto) (0.0 - 0.2 x10 3/uL) 0.44 H 0.25 H Baso # (Auto) (0.0 - 0.1 x10 3/uL) 0.06 0.08 Immature Gran % (0.0 - 2.0 %) 0.4 0.5 Nucleated RBC % (0 - 1.0 %) 0.0 0.0 Laboratory Tests 09/27 1559 Serology HIV 1 2 Antibody (NEGATIVE) NEGATIVE Laboratory Tests 09/28 0550 Toxicology Ethyl Alcohol (<10 mg/dL) < 10 Laboratory Tests 09/27 1447 Urines Urine Color (Yellow) Tasneem H Urine Appearance (Clear) Slightly-Cloudy Urine pH (5.0 - 8.0) 7.0 Ur Specific [place] (<1.030) 1.010 Urine Protein (Negative mg/dL) NEGATIVE Urine Glucose (UA) (Negative) Negative Urine Ketones (Negative mg/dL) Negative Urine Blood (Negative) Negative Urine Nitrite (Negative) Negative Urine Bilirubin (Negative) Negative Urine Urobilinogen (Negative mg/dL) Negative Ur Leukocyte Esterase (Negative) 3+ H Urine RBC (<4 - 5 /HPF) 0-3 Urine WBC (<4 - 5 /HPF) 6-10 H Ur Squamous Epith Cells (0 - 5 (RARE) /HPF) 0-5 (RARE) Urine Bacteria (None - Rare /HPF) Rare Hyaline Casts (<4 - 5 /LPF) 6-10 H Radiology data: Recent Impressions: RADIOLOGY - XR CHEST 1 V 09/27 1545 Report Impression - Status: SIGNED Entered: 09/27/2022 1610 IMPRESSION: I centimeter consolidation in the left upper lobe perhaps associated with cavitary area. Follow-up CT scan of the chest is recommended. Leftward cardiac consolidation/scarring. Tiny amount of pleural fluid and/or pleural thickening in the right minor fissure again noted. Dictation/location code: H-94 Impression By: Coleman Mccabe MD Results: vital signs reviewed, vital signs stable Diagnosis, Assessment Plan Code status: full code Free Text DxA P Notes Free text DxA P notes: Patient is a 72-year-old male with past medical history of hypertension, diabetes, CAD, A-fib, recently diagnosed TB on treatment who presented to the ED with complaints of nausea, vomiting, diarrhea for the past 5 days is being admitted for irretractable nausea, vomiting, diarrhea likely secondary to gastroenteritis. #Gastroenteritis Patient presenting with nausea, vomiting, diarrhea ongoing for approximately 5 days with some associated abdominal pain. -continue symptomatic management at this time -IV fluids -Clear liquid diet, advance as tolerated -prn zofran -imodium once and prn if needed. #Pulmonary tuberculosis Patient was recently diagnosed with pulmonary tuberculosis on 4 agent therapy. Chest x-ray obtained here does show cavitary lesion -Pt started on TB meds 5 days ago via [facility]. -I.D consulted recs no TB meds first B1 high dose or else pt will develop resistance to TB drugs. -hold on TB meds. Till the Gi sx resolved. #Diabetes melitis Patient with history of type 2 diabetes -Hold home metformin, glipizide -MDSSI #Hypertension Patient with history of hypertension -Resumed home Lasix, Lopressor #A-fib chadvasc 3 Patient with history of A-fib -Resumed home Eliquis and Lopressor CODE STATUS: Full code DVT VTE: Eliquis Dier:clear liquid diet. Plan: hold on TB meds, continue B1, monitor for sx improvement. f/u with I.D recs. As d/w attending Dr Gaston. Zander Gaston 09/28/22 1252: Attestations Physician Attestation Agree w/findings plan: I personally saw and examined the patient on 09/28/22. I have reviewed and agree with the resident's findings, including all diagnostic interpretations and treatment plan as written. * my personal evaluation is [ ] I have extensively/independently reviewed all lab work (cbc, bmp, Mg) I have ordered these pertinent labs/test: check cbc, bmp and Mg in the AM Risk of complications and/or Morbidity or Mortality of Patient Management- Moderate risk. pt has acute gastroenteritis vs side effect from TB meds. tx with IV fluids and supportive care. Consult ID. at 1345 at 0909 RPT #:[id number] END OF REPORT [facility] 2022-09-27 19:17:00 ([facility] Hospitalist History Physical REPORT#:[id number] REPORT STATUS: Signed DATE:09/27/22 TIME: 1916 PATIENT: SEYMOUR SNOW UNIT #: [id number] ROOM/BED: [address] : 48 AGE: 72 SEX: M ATTEND: Nickolas Beltre DO ADM AUTHOR: Jennifer De La Cruz MD R1 * ALL edits or amendments must be made on the electronic/computer document * Jennifer De La Cruz 09/27/221916: History of Present Illness HPI Chief complaint: Nausea vomiting, diarrhea PCP: PCP: No Primary or Family Physician HPI: Patient is a 72-year-old male with past medical history of hypertension, diabetes, CAD, A-fib, recently diagnosed TB on treatment who presented to the ED with complaints of nausea, vomiting, diarrhea for the past 5 days. Patient was recently admitted at [facility] approximately 3 days ago for treatment of TB. Symptoms started while patient was there. Patient states that he takes his TB medication he gets abdominal pain that is epigastric and is relieved once he has a bowel movement which has been watery diarrhea for about the past 5 days. Patient is also having intermittent episodes of nonbilious nonbloody nausea and vomiting along with lack of appetite. He denies any fevers , chills, chest pain, shortness of breath, intermittent constipation. Also denies any hematochezia, melena, recent antibiotic use apart from current TB treatment medications. The first time patient is having such occurrence. In the ED patient was afebrile, blood pressure was 81/58-1 01/69, heart rate 114 , respirations 20, satting 98% on room air. CBC was within normal limits. CMP is significant for bicarb 32, alk phos 156. Lipase 371, magnesium 1.0, lactic acid 1.9, troponin negative. UA: Leukocyte esterase positive, WBCs 6-10, hyaline casts 6-10. In the ED patient received 2.8 L of LR, Zosyn, 2 g magnesium. History Past Medical Surgical Hx Additional surgical history: Neck surgery, 40 years ago Social History Alcohol use: Denies EtOH use Drug use: Denies recreational drugs Smoking status for patients 13 years old or older: Unknown,if ever smoked Other social history: Good social support Medication/Allergy-Vaccine Hx Allergies: Coded Allergies: No Known Allergies (10/26/18) Review of Systems Free Text ROS Notes Free Text ROS Notes: Negative except as otherwise mentioned OBJECTIVE VS/I O: Vital Signs Date Temp Pulse Resp B/P B/P Mean Pulse Ox FiO2 09/27-09/28 97.9-98.4 79-114 15-20 81-127/54-83 65.7-97.3 90-97 Last Documented: Result Date Time Pulse Ox 97 09/28 0115 B/P 127/83 09/28 0115 B/P Mean 97.3 09/28 0115 O2 Delivery Nasal cannula 09/28 011 O2 Flow Rate 4 09/28 0115 Temp 97.9 09/28 0115 Pulse 86 09/28 0115 Resp 15 09/28 0115 24 hour I O ending at 0700: 09/28 0700 09/27 1900 Intake Total Output Total Balance Patient 95 kg Weight Weight Stated/Reported Measurement Method Patient Weight and BMI Weight (kg): 95.000 BMI: 31.8 General appearance: alert, awake, oriented Head/Eyes: atraumatic, normocephalic ENT: dry mucosal membrane Cardiovascular: normal heart sounds, regular rate rhythm Respiratory: clear to auscultation, symmetric expansion, no distress Abdomen: non-tender, normal bowel sounds, soft, no distention Extremities: moves all, no edema Musculoskeletal: normal inspection Neuro/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: alert, oriented X 3, normal speech Psychiatry: normal affect, normal judgment/insight, normal mood Results Findings/Data: Laboratory Tests: 09/27 09/27 09/27 09/27 09/27 1559 1558 1558 1447 1447 Chemistry Lactic Acid (0.7 - 2.0 mmol/L) 1.9 Phosphorus (2.5 - 4.5 mg/dL) 3.3 Magnesium (1.6 - 2.3 mg/dL) 1.0 L Triglycerides (mg/dL) 150 Cholesterol (mg/dL) 171 LDL Cholesterol Measurd (32 - 99 104.37 H mg/dL) HDL Cholesterol (40 - 59 mg/dL) 28 L Coronary Risk Interp 6.11 Lipase (23 - 300 U/L) 371 H Serology HIV 1 2 Antibody (NEGATIVE) NEGATIVE 09/27 1447 Chemistry Sodium (137 - 145 mmol/L) 139 Potassium (3.4 - 5.0 mmol/L) 3.8 Chloride (98 - 107 mmol/L) 98 Carbon Dioxide (22 - 30 mmol/L) 32 H Anion Gap 13 BUN (9 - 20 mg/dL) 17 Creatinine (0.7 - 1.3 mg/dL) 0.9 Glomerular Filtr Rate (mL/min) 90 Glucose (74 - 106 mg/dL) 178 H Calcium (8.4 - 10.2 mg/dL) 9.6 Total Bilirubin (0.2 - 1.3 mg/dL) 1.2 Conjugated Bilirubin (0 - 0.3 mg/dL) 0 Unconjugated Bilirubin (0 - 1.1 mg/dL) 0.6 AST (15 - 46 U/L) 43 ALT (0 - 49 U/L) 25 Total Alk Phosphatase (38 - 126 U/L) 156 H Troponin I (0.012 - 0.033 ng/mL) < 0.012 L Total Protein (6.3 - 8.2 g/dL) 7.4 Albumin (3.5 - 5.0 g/dL) 3.6 Specimen Hemolysis (0 - 100 Index/DL) < 15 Hematology WBC (5.0 - 12.0 x10 3/uL) 10.1 RBC (4.70 - 6.10 x10 6/uL) 4.63 L Hgb (14.0 - 18.0 g/dL) 14.1 Hct (37.0 - 49.0 %) 41.4 MCV (80 - 94 fL) 89 MCH (27 - 31 pg) 30.5 MCHC (33 - 37 g/dL) 34.1 RDW (11.5 - 15.5 %) 13.4 Plt Count (130 - 400 x10 3/uL) 314 MPV (9.4 - 16.4 fL) 9.3 L Neut % (Auto) (43 - 65 %) 67.7 H Lymph % (Auto) (20.5 - 45.5 %) 17.8 L [place] % (Auto) (5.5 - 11.7 %) 10.7 Eos % (Auto) (0.9 - 2.9 %) 2.5 Baso % (Auto) (0.2 - 1.0 %) 0.8 Neut # (Auto) (2.2 - 4.8 x10 3/uL) 6.83 H Lymph # (Auto) (1.3 - 2.9 x10 3/uL) 1.79 [place] # (Auto) (0.3 - 0.8 x10 3/uL) 1.08 H Eos # (Auto) (0.0 - 0.2 x10 3/uL) 0.25 H Baso # (Auto) (0.0 - 0.1 x10 3/uL) 0.08 Immature Gran % (0.0 - 2.0 %) 0.5 Nucleated RBC % (0 - 1.0 %) 0.0 Urines Urine Color (Yellow) Tasneem H Urine Appearance (Clear) Slightly-Cloudy Urine pH (5.0 - 8.0) 7.0 Ur Specific Compton (<1.030) 1.010 Urine Protein (Negative mg/dL) NEGATIVE Urine Glucose (UA) (Negative) Negative Urine Ketones (Negative mg/dL) Negative Urine Blood (Negative) Negative Urine Nitrite (Negative) Negative Urine Bilirubin (Negative) Negative Urine Urobilinogen (Negative mg/dL) Negative Ur Leukocyte Esterase (Negative) 3+ H Urine RBC (<4 - 5 /HPF) 0-3 Urine WBC (<4 - 5 /HPF) 6-10 H Ur Squamous Epith Cells (0 - 5 (RARE) /HPF) 0-5 (RARE) Urine Bacteria (None - Rare /HPF) Rare Hyaline Casts (<4 - 5 /LPF) 6-10 H Laboratory Tests 09/27/22 1447: [Embedded Image Not Available] Radiology data: Recent Impressions: RADIOLOGY - XR CHEST 1 V 09/27 1545 Report Impression - Status: SIGNED Entered: 09/27/2022 1610 IMPRESSION: I centimeter consolidation in the left upper lobe perhaps associated with cavitary area. Follow-up CT scan of the chest is recommended. Leftward cardiac consolidation/scarring. Tiny amount of pleural fluid and/or pleural thickening in the right minor fissure again noted. Dictation/location code: H-94 Impression By: [email or web address] - Coleman Saldaña MD Diagnosis, Assessment Plan Free Text A P: Patient is a 72-year-old male with past medical history of hypertension, diabetes, CAD, A-fib, recently diagnosed TB on treatment who presented to the ED with complaints of nausea, vomiting, diarrhea for the past 5 days is being admitted for irretractable nausea, vomiting, diarrhea likely secondary to gastroenteritis. #Gastroenteritis Patient presenting with nausea, vomiting, diarrhea ongoing for approximately 5 days with some associated abdominal pain. Alk phos and lipase slightly elevated. Less likely pancreatitis given that lipase is only slightly elevated and patient does not quite meet 2 out of 3 diagnostic criteria for pancreatitis. We will continue symptomatic management at this time -IV fluids -Clear liquid diet, advance as tolerated -Follow-up alcohol levels #Pulmonary tuberculosis Patient was recently diagnosed with pulmonary tuberculosis on 4 agent therapy. Chest x-ray obtained here does show cavitary lesion -Continue rifampin, pyrazinamide, isoniazid, ethambutol, pyridoxine #Diabetes melitis Patient with history of type 2 diabetes -Hold home metformin, glipizide -SSI initiated #Hypertension Patient with history of hypertension -Resumed home Lasix, Lopressor #A-fib Patient with history of A-fib -Resumed home Eliquis and Lopressor CODE STATUS: Full code DVT VTE: Eliquis Clear liquid diet, advance as tolerated Discussed with attending Kamar Arteaga 09/28/22 3827: Attestations Teaching Physician Attestation 1st visit w/o resident: I performed a history and physical examination of the patient and discussed with the resident. I have reviewed the resident's note and agree with the findings and plan as documented in the resident's note. at 0339 at 0528 RPT #:[id number] END OF REPORT [facility] 2022-09-27 18:14:00 [id number] [facility] [address] [place] [address] PATIENT NAME: SEYMOUR SNOW ADMIT DATE: 09/27/22 ACCOUNT NO: [id number] ROOM NO: C.324T AGE: 72 REPORT TYPE: ELECTROCARDIOGRAM SEX: M ADMITTING PHYSICIAN:Zander Gaston MD ATTENDING PHYSICIAN:Zander Gaston MD Order: [id number] Test Reason : (Not Selected) Test Date/Time Stamp: FriSep 27 2022 18:14:26 Blood Pressure : 106/054 mmHG Vent. Rate : 117 BPM Atrial Rate : 129 BPM P-R Int : 154 ms QRS Dur : 102 ms QT Int : 374 ms P-R-T Axes : 086 -25 112 degrees QTc Int : 521 ms Sinus tachycardia with occasional and consecutive premature ventricular complexes Nonspecific ST and T wave abnormality Prolonged QT Abnormal ECG Confirmed by MD FRED, THAIS ([id number]) on 09/29/2022 2:05:01 PM Referred By: Self Referred Confirmed by:THAIS FITZPATRICK MD at 1405 PATIENT NAME: SEYMOUR SNOW [facility] 2022-09-27 14:50:00 [facility] EMERGENCY PROVIDER REPORT REPORT#:[id number] REPORT STATUS: Signed DATE:09/27/22 TIME: 1450 PATIENT: SEYMOUR SNOW UNIT #: [id number] ROOM/BED: C324T-A AGE: 72 SEX: M PCP PHYS: No Primary or Family Physician SERVICE AUTHOR: Sonam Dickson MD R2 * ALL edits or amendments must be made on the electronic/computer document * Sonam Dickson 09/27/22 1450: HPI-General Illness Free Text HPI Notes Free Text HPI Notes Patient is a 72-year-old male with PMH of HTN, HLD, DM, CAD, fatty liver disease and recent diagnosis of active TB who presents to the emergency department complaining of decreased appetite, nausea with NBNB emesis, and nonbloody watery diarrhea for 5 days. States he was diagnosed with TB earlier this week at [facility], and had the symptoms while inpatient however they have not improved since being discharged 3 days ago. He denies any recent fever , chills, chest pain, shortness of breath, constipation, dysuria, melena, hematochezia. Does endorse some minimal abdominal discomfort with his diarrhea. He is able to pass gas. He was discharged home with rifampin, pyrazinamide, ethambutol, isoniazid. General Initial Greet Date/Time 09/27/22 1414 Presentation Chief Complaint Diarrhea, Vomiting Review of Systems ROS Statements All systems rev neg except as marked. Complete sys rev neg except as marked. Free Text ROS Notes Free Text ROS Notes Focused Review of Systems Constitutional Denies: Fever, Chills, Fatigue, Recent wt loss. Ears/Nose/Throat Denies: Earache bilat, Nasal congestion, Sore throat. Respiratory Denies: Cough, Shortness of breath, Wheezing. Cardiovascular Denies: Chest pain, Dyspnea on exertion, Lower extremity edema, Orthopnea, Palpitations, Parox nocturnal dyspnea. GI Endorses: Abdominal discomfort, nausea, vomiting, diarrhea Denies: Constipation, Diarrhea, Hematochezia, Melena Musculoskeletal Denies: Extremity pain, Extremity swelling, Myalgia, Neck pain. Skin Denies: Diaphoresis, Erythema, Jaundice, Rash, Swelling. Neurologic Denies: Change LOC, Dizziness, Focal weakness, Headache, Spinning sensation, Vision change. Psychiatric Denies: Anxiety, Depression, Hallucinations, auditory, Hallucinations, visual. Eyes Denies: Blurred bilat, Diplopia, Photophobia, Yellow bilat. Denies: Dysuria, Flank pain, Hematuria, Urinary frequency, Urination decreased Endocrine Denies: Cold intolerance, Heat intolerance, Polydipsia, Polyuria. Allergy/Immun Denies: Itching, Rhinorrhea. Past Medical History - Adult Stated Complaint DIARRHEA W/ LOSS OF APPETITE Allergies Coded Allergies: No Known Allergies (10/26/18) Past Medical History: Reports: Diabetes mellitus, Hypertension. Additional Surgical History Neck surgery, 40 years ago Alcohol Use Denies EtOH use Drug Use Denies recreational drugs Smoking status for patients 13 years old or older: Unknown,if ever smoked Other Social History Good social support Physical Exam Vital Signs Review of Vital Signs Reviewed Free Text PE Notes Free Text PE Notes Focused PE General/Const Awake, Alert, Cooperative MS Head Head Atraumatic, Normocephalic Eyes PERRL, EOMI, No periorbital swelling, No scleral icterus, Conjunctiva NL Neck Supple, No midline vertebral tend, No JVD Ears/Nose/Throat Mucous membranes moist, Pharynx NL, Nose NL Resp/Chest Clear bilaterally, No rales, No wheezing, No stridor Cardiovascular Regular rhythm, Heart sounds NL Abdomen/GI Soft, Non-tender, No guarding, No rebound, No distention MS Back No midline vertebral tend, No CVA tenderness Skin Color normal, Warm, Dry Neurologic Speech NL, No motor deficits, No sensory deficits MS Upper Extrem/Hands Full range of motion, No swelling, Non-tender, Neurologic intact, Vascular intact MS Lower Extrem/Feet Full range of motion, No swelling, Non-tender, Neurologic intact, Vascular intact Interpretation Diagnostics Lab Results Interpretation Considerations Independ review imaging Results Laboratory Tests 09/27/22 1447: [Embedded Image Not Available] Laboratory Tests: 09/27 09/27 09/27 09/27 09/27 1559 1558 1558 1447 1447 Chemistry Lactic Acid (0.7 - 2.0 mmol/L) 1.9 Phosphorus (2.5 - 4.5 mg/dL) 3.3 Magnesium (1.6 - 2.3 mg/dL) 1.0 L Triglycerides (mg/dL) 150 Cholesterol (mg/dL) 171 LDL Cholesterol Measurd (32 - 99 104.37 H mg/dL) HDL Cholesterol (40 - 59 mg/dL) 28 L Coronary Risk Interp 6.11 Lipase (23 - 300 U/L) 371 H Serology HIV 1 2 Antibody (NEGATIVE) NEGATIVE 09/27 1446 Chemistry Sodium (137 - 145 mmol/L) 139 Potassium (3.4 - 5.0 mmol/L) 3.8 Chloride (98 - 107 mmol/L) 98 Carbon Dioxide (22 - 30 mmol/L) 32 H Anion Gap 13 BUN (9 - 20 mg/dL) 17 Creatinine (0.7 - 1.3 mg/dL) 0.9 Glomerular Filtr Rate (mL/min) 90 Glucose (74 - 106 mg/dL) 178 H Calcium (8.4 - 10.2 mg/dL) 9.6 Total Bilirubin (0.2 - 1.3 mg/dL) 1.2 Conjugated Bilirubin (0 - 0.3 mg/dL) 0 Unconjugated Bilirubin (0 - 1.1 mg/dL) 0.6 AST (15 - 46 U/L) 43 ALT (0 - 49 U/L) 25 Total Alk Phosphatase (38 - 126 U/L) 156 H Troponin I (0.012 - 0.033 ng/mL) < 0.012 L Total Protein (6.3 - 8.2 g/dL) 7.4 Albumin (3.5 - 5.0 g/dL) 3.6 Specimen Hemolysis (0 - 100 Index/DL) < 15 Hematology WBC (5.0 - 12.0 x10 3/uL) 10.1 RBC (4.70 - 6.10 x10 6/uL) 4.63 L Hgb (14.0 - 18.0 g/dL) 14.1 Hct (37.0 - 49.0 %) 41.4 MCV (80 - 94 fL) 89 MCH (27 - 31 pg) 30.5 MCHC (33 - 37 g/dL) 34.1 RDW (11.5 - 15.5 %) 13.4 Plt Count (130 - 400 x10 3/uL) 314 MPV (9.4 - 16.4 fL) 9.3 L Neut % (Auto) (43 - 65 %) 67.7 H Lymph % (Auto) (20.5 - 45.5 %) 17.8 L [place] % (Auto) (5.5 - 11.7 %) 10.7 Eos % (Auto) (0.9 - 2.9 %) 2.5 Baso % (Auto) (0.2 - 1.0 %) 0.8 Neut # (Auto) (2.2 - 4.8 x10 3/uL) 6.83 H Lymph # (Auto) (1.3 - 2.9 x10 3/uL) 1.79 [place] # (Auto) (0.3 - 0.8 x10 3/uL) 1.08 H Eos # (Auto) (0.0 - 0.2 x10 3/uL) 0.25 H Baso # (Auto) (0.0 - 0.1 x10 3/uL) 0.08 Immature Gran % (0.0 - 2.0 %) 0.5 Nucleated RBC % (0 - 1.0 %) 0.0 Urines Urine Color (Yellow) Tasneem H Urine Appearance (Clear) Slightly-Cloudy Urine pH (5.0 - 8.0) 7.0 Ur Specific Compton (<1.030) 1.010 Urine Protein (Negative mg/dL) NEGATIVE Urine Glucose (UA) (Negative) Negative Urine Ketones (Negative mg/dL) Negative Urine Blood (Negative) Negative Urine Nitrite (Negative) Negative Urine Bilirubin (Negative) Negative Urine Urobilinogen (Negative mg/dL) Negative Ur Leukocyte Esterase (Negative) 3+ H Urine RBC (<4 - 5 /HPF) 0-3 Urine WBC (<4 - 5 /HPF) 6-10 H Ur Squamous Epith Cells (0 - 5 (RARE) /HPF) 0-5 (RARE) Urine Bacteria (None - Rare /HPF) Rare Hyaline Casts (<4 - 5 /LPF) 6-10 H Microbiology: Date/Time Procedure - Status Source Growth 09/27 1501 Clostridioides difficile Toxin Assay - CAN STOOL Cancelled: NO SPECIMEN RECEIVED IN 24 HOURS SINCE TEST WAS ORDERED 09/27 1447 Blood Culture - RES BLOOD 09/27 1447 Blood Culture - RES BLOOD Recent Impressions: RADIOLOGY - XR CHEST 1 V 09/27 1545 Report Impression - Status: SIGNED Entered: 09/27/2022 1610 IMPRESSION: I centimeter consolidation in the left upper lobe perhaps associated with cavitary area. Follow-up CT scan of the chest is recommended. Leftward cardiac consolidation/scarring. Tiny amount of pleural fluid and/or pleural thickening in the right minor fissure again noted. Dictation/location code: H-94 Impression By: Coleman Mccabe MD Lab Imaging Statement Laboratory radiographic studies reviewed and considered in the medical decision-making. Re-Evaluation MDM Free Text MDM Notes Additional Text Patient presented to the Emergency Department with abdominal discomfort, nausea, vomiting, diarrhea for 1 week. Recently diagnosed with active tuberculosis. History was obtained from patient. I independently reviewed available external records and previous emergency department notes. The results of my review are: No external records were provided. Last ED visit was September 22, 2019 for abdominal pain Differential diagnoses included: Acute Cholecystitis: Considered, but pt without RUQ abdominal pain, tenderness, or history to suggest it. Byers's sign is negative. Acute Cholangitis: Considered, but Charcot's triad and Amrit's pentad negative. Pt is nontoxic appearing, overall low suspicion. Acute Mesenteric Ischemia: Considered, but pt without concerning risk factors or classic pain out of proportion to my exam. AAA: Considered, but pt without known history, specific risk factors, pulsatile abdominal mass, or concerning radiation of abdominal pain. Acute Appendicitis: Considered, but pt without tenderness over McBurney's point. Rovsing sign and Psoas sign are negative. No involuntary guarding or rebound tenderness to suggest peritonitis. ACS: Considered pt's abdominal pain could represent atypical presentation of ACS , however ECG is reassuring, without evidence to suggest ischemia. Troponin is negative. SBO: Considered, but pt without concerning constipation or obstipation. Pt currently able to pass flatus and abdominal exam is reassuring. Urolithiasis: Considered, however pt without any flank pain with classic radiation to groin. Overall low suspicion. Pyelonephritis: Considered, but pt without dysuria or CVA tenderness on my exam. Pancreatitis: Considered patient's abdominal discomfort, nausea, vomiting. No periumbilical or flank ecchymosis on my exam. Lipase elevated at 371, consistent with mild pancreatitis. Perforated peptic ulcer: Considered, but pt without abrupt onset of severe epigastric abdominal pain to suggest it. No involuntary guarding or rebound tenderness to suggest peritonitis. Overall low suspicion. Testicular Torsion: Considered, but pt without severe or abrupt onset of testicular pain. Physical exam is reassuring. Electrolyte abnormality: Considered given patient's persistent nausea, vomiting, and diarrhea. Patient found to be hypomagnesemic with magnesium of 1.0. Severe sepsis: Considered given patient's presentation of tachycardia to 114, and blood pressure of 81/58. Lactic acid within normal limits at 1.9, rules out severe sepsis at 1500. C. difficile colitis: Considered given patient's persistent nausea, vomiting, diarrhea, and recent antibiotic use. HIV: Considered given patient's TB diagnosis. HIV test however is negative. Comorbidities that impacted the complexity and management of treatment: HTN, HLD , DM, CAD, fatty liver disease EKG independently reviewed and interpreted by me: 1518: Sinus tachycardia with rate of 103, left axis deviation, nonspecific ST-T changes in leads I and aVL, no ST depressions, no ST elevations, no STEMI 181: A-fib with RVR with rate of 152, left axis deviation, nonspecific ST-T changes in leads I, and aVL, no ST depressions, no ST elevations, no STEMI. 181: Sinus tachycardia with rate of 117 with frequent PVCs, left axis deviation , prolonged QTc, nonspecific ST-T changes in leads I and aVL, no ST depressions, no ST elevations, no STEMI Labs independently reviewed and interpreted by me: CBC unremarkable. BMP unremarkable. Magnesium low at 1.0, LFTs unremarkable, troponin negative, lipase elevated at 379. Imaging independently reviewed and interpreted by me: Agree with radiologist, consolidation in the left upper lobe with cavitation. Likely TB. ED Course: Patient seen and examined at bedside, in no acute respiratory distress. Patient presents with nausea, vomiting, diarrhea, and abdominal discomfort. Abdomen is soft, nondistended, nontender on my exam. Patient presented initially with tachycardia and hypotension. He received sepsis bundle , 30 cc/kg of IV fluids, and Zosyn. X-ray shows cavitary consolidation in the left upper lobe. Patient has been taking his antituberculosis medications since being discharged a few days ago from [facility]. Labs show hypomagnesemia , and mild pancreatitis. I performed a tissue reperfusion exam at 1647, no evidence of fluid overload. After shared decision-making conversation, patient agreed to be admitted to the hospital for further evaluation and treatment of his TB, pancreatitis and hypomagnesemia. Medications administered: LR, Zosyn, magnesium sulfate See above for specific routes and dosages. Clinical Impression: Gastroenteritis, hypomagnesemia, pancreatitis, A-fib with RVR, tuberculosis This is an acute problem I would consider the severity of this problem to be: Severe Consultants: I discussed the care of this patient with: Dr. Beltre I discussed the findings with the patient. Decision regarding hospitalization was discussed along with the risks, benefits, and alternative options. Patient verbalized understanding. Through shared decision-making, we have decided patient will be admitted to the hospital for further evaluation and treatment. Patient Discharge Departure Vital Signs/Condition Vital Signs First Documented: Result Date Time Pulse Ox 95 05 1422 B/P 81/58 09/27 1422 B/P Mean 65.7 05/12 1422 Temp 98.4 09/27 1422 Pulse 114 09/27 1422 Resp 20 09/27 1422 O2 Delivery Room air 09/27 1520 Last Documented: Result Date Time Pulse Ox 92 09/27 1631 B/P 105/54 09/27 1631 B/P Mean 71 09/27 1631 O2 Delivery Room air 09/27 1631 Pulse 93 09/27 1631 Resp 20 09/27 1631 Temp 98.4 09/27 1422 All vital signs available at the time of this entry have been reviewed. Condition Stable, Improved Clinical Impression Clinical Impression Primary Impression: Pancreatitis Secondary Impressions: Atrial fibrillation with RVR, Gastroenteritis, Hypomagnesemia, Tuberculosis Disposition Decision Admit Admit Physician Name BeltreNickolas murphy Admit Physician Hospitalist Request Time 172 Request Date 09/27/22 )( Admission Accepts Yes )( Accepted Time 1728 )( Accepted Date 09/27/22 Call Information will see patient, agrees with eval, agrees with plan Discharge/Care Plan Counseled Regarding Diagnosis, Lab results, Imaging studies, Need for admission Admit Note I have spoken with the patient and/or caregivers. I have explained the patient's condition, diagnoses and treatment plan based on the information available to me at this time. I have answered the patient's and/or caregiver's questions and addressed any concerns. The patient and/or caregivers have as good an understanding of the patient's diagnosis, condition and treatment plan as can be expected at this point. The patient has been stabilized within the capability of the emergency department. The patient will be transported for further care and management or will be moved to an observation or inpatient service. I have communicated with the staff or medical practitioner taking over this patient's care. AjitAman nguyen 09/27/221914: Past Medical History - Adult Home Medications Active Scripts ACETAMINOPHEN (TYLENOL) 650 MG PO Q8HR PRN pain BISACODYL EC (DULCOLAX EC) 10 MG PO DAILY PRN PRN CONSTIPATION traMADol (ULTRAM) 50 MG PO Q6H PRN PRN PAIN traMADol (ULTRAM) 50 MG PO Q6H PRN PRN PAIN #28 TAB Prov: 10/19/19 FUROSEMIDE (LASIX) 20 MG PO QAM FUROSEMIDE (LASIX) 20 MG PO QAM #30 TAB Prov: 10/19/19 FAMOTIDINE (PEPCID) 20 MG PO BID FAMOTIDINE (PEPCID) 20 MG PO BID #60 TAB Prov: 10/19/19 metFORMIN (GLUCOPHAGE) 500 MG PO C BK DIN metFORMIN (GLUCOPHAGE) 500 MG PO C BK DIN #60 TAB Prov: 10/19/19 MEGESTROL (MEGACE) 40 MG PO DAILY MEGESTROL (MEGACE) 40 MG PO DAILY #30 TAB Prov: 10/19/19 Reported Medications PYRIDOXINE (VITAMIN B-6) 50 MG PO DAILY ETHAMBUTOL (MYAMBUTOL) 1,200 MG PO DAILY PYRAZINAMIDE 1,500 MG PO DAILY rifAMPin (RIFADIN) 600 MG PO DAILY ISONIAZID 300 MG PO DAILY APIXABAN (ELIQUIS) 5 MG PO BID METOPROLOL TARTRATE (LOPRESSOR) 12.5 MG PO BID glipiZIDE (GLUCOTROL) 5 MG PO AC ATORVASTATIN (LIPITOR) 40 MG PO DAILY metFORMIN (GLUCOPHAGE) 850 MG PO BID MEALS LOSARTAN (COZAAR) 50 MG PO DAILY Physical Exam Vital Signs Vital Signs First Documented: Result Date Time Pulse Ox 95 09/27 1422 B/P 81/58 09/27 1422 B/P Mean 65.7 09/27 1422 Temp 36.9 09/27 1422 Pulse 114 09/27 1422 Resp 20 09/27 1422 O2 Delivery Room air 09/27 1520 Last Documented: Result Date Time Pulse Ox 92 09/27 1631 B/P 105/54 09/27 1631 B/P Mean 71 09/27 1631 O2 Delivery Room air 09/27 1631 Pulse 93 09/27 1631 Resp 20 09/27 1631 Temp 36.9 09/27 1422 Interpretation Diagnostics Lab Results Interpretation Considerations Independ review imaging, Reviewed prior records Lab Imaging Statement Laboratory radiographic studies reviewed and considered in the medical decision-making. Re-Evaluation MDM ED Course Medication(s) Ordered Medication(s) Ordered: Anti-Infective Agents Sig/Mary Start time Last Medication Dose Route Stop Time Status Admin Piperacillin Sod/ 3.375 GM X1ED STA 09/27 1427 DC 09/27 Tazobactam Sod IV 09/27 1456 1451 Sodium Chloride 100 ML Electrolytic, Caloric, And Eli Sig/Mary Start time Last Medication Dose Route Stop Time Status Admin Sodium Chloride 5 ML Q12HR 09/27 2100 AC /12 IV 09/27 2330 2114 Sodium Chloride 5 ML ASDIR PRN 09/27 1730 AC IV 09/27 2330 Sodium Chloride 10 ML ASDIR PRN / 1730 AC IV 09/27 2330 Sodium Chloride 250 ML ASDIR PRN / 1730 AC IV 09/27 2330 Sodium Chloride 1,000 ML .[id number] / 1730 AC /12 IV 09/27 2330 2114 Lactated Ringer's 2,850 ML X1ED STA 09/27 1427 DC / IV 09/27 1428 1450 Gastrointestinal Drugs Sig/Mary Start time Last Medication Dose Route Stop Time Status Admin Ondansetron HCl 4 MG Q4H PRN PRN 09/27 1731 DC IV 09/27 2330 Miscellaneous Therapeutic Agen Sig/Mary Start time Last Medication Dose Route Stop Time Status Admin Magnesium Sulfate 50 ML X1ED STA 09/27 1655 DC / IV 09/27 1854 1706 Patient Discharge Departure Supervising Physician Note Resident Saw Pt This patient was seen by a resident. I have personally seen the patient, performed the critical or dobbs portions of the service, and participated in the management of the patient. I have reviewed and agree with the resident's note, and I have reviewed all labs, ECGs, and imaging studies or reports. I agree with this resident's findings, exam and plan. at 2238 at 1048 RPT #:[id number] END OF REPORT [facility] 2022-09-27 14:29:00 ([facility] EMERGENCY PROVIDER REPORT REPORT#:[id number] REPORT STATUS: Signed DATE:09/27/22 TIME: 142 PATIENT: SEYMOUR SNOW UNIT #: [id number] ROOM/BED: 324T-A AGE: 72 SEX: M PCP PHYS: No Primary or Family Physician SERVICE AUTHOR: Joyce Pryor NP * ALL edits or amendments must be made on the electronic/computer document * Provider in Triage - Adult Provider in Triage Initial Greet Date/Time 09/27/22 1414 Free Text PIT Notes Free Text PIT Notes I have greeted and performed a focused rapid initial assessment of this patient. A comprehensive ED assessment and evaluation of the patient, analysis of all test results, and completion of the medical decision-making process will be conducted by additional ED providers. Pt in no apparent distress in triage. 72-year-old male with PMH DM, HTN, HLD, presents to the ER complaining of decreased appetite, diarrhea, vomiting x4-5 days. Reports he was diagnosed with TB this week at [facility] and had similar complaint above and has not improved since discharge Friday this week. No abdominal TTP on brief exam in triage. Advised to remain n.p.o. until further notice. Charge nurse Halley notified of the above, patient's vital signs, and the patient needs a room with cardiac monitoring stat. PMH-Provider in Triage Stated Complaint DIARRHEA W/ LOSS OF APPETITE Allergies Coded Allergies: No Known Allergies (10/26/18) Home Medications Active Scripts ACETAMINOPHEN (TYLENOL) 650 MG PO Q8HR PRN pain BISACODYL EC (DULCOLAX EC) 10 MG PO DAILY PRN PRN CONSTIPATION traMADol (ULTRAM) 50 MG PO Q6H PRN PRN PAIN traMADol (ULTRAM) 50 MG PO Q6H PRN PRN PAIN #28 TAB Prov: 10/19/19 FUROSEMIDE (LASIX) 20 MG PO QAM FUROSEMIDE (LASIX) 20 MG PO QAM #30 TAB Prov: 10/19/19 FAMOTIDINE (PEPCID) 20 MG PO BID FAMOTIDINE (PEPCID) 20 MG PO BID #60 TAB Prov: 10/19/19 metFORMIN (GLUCOPHAGE) 500 MG PO C BK DIN metFORMIN (GLUCOPHAGE) 500 MG PO C BK DIN #60 TAB Prov: 10/19/19 MEGESTROL (MEGACE) 40 MG PO DAILY MEGESTROL (MEGACE) 40 MG PO DAILY #30 TAB Prov: 10/19/19 at 1431 at 2069 RPT #:[id number] END OF REPORT [facility] 2022-09-21 17:45:31 PROCEDURE INFORMATIO N: Exam: MR Abdomen Without and With Contrast Exam date and time: 09/21/2022 5:21 PM Age: 72 years old Clinical indication: Screening exam; Additional info: /weight loss, liver lesion TECHNIQUE: Imaging protocol: Magnetic resonance imaging of the abdomen without and with contrast. Contrast material: CLARISCAN; Contrast volume: 20 ml; Contrast route: INTRAVENOUS (IV); COMPARISON: CHEST PULMONARY EMBOLISM CTA 09/18/2022 10:25 PM FINDINGS: Liver: No significant hepatic steatosis. Enlargement of the caudate and left hepatic lobes. 1.3 cm T2 hyperintense T1 hypointense nonenhancing right hepatic lobe lesion consistent with cyst. No arterially enhancing lesion of the liver with washout. Gallbladder and bile ducts: Status post cholecystectomy. No significant biliary ductal dilatation. Pancreas: Pancreatic atrophy. No peripancreatic inflammatory changes. 7 mm cyst at the pancreatic tail (series 3, image 19). No pancreatic ductal dilatation. Spleen: Spleen is enlarged at 13.5 cm. Adrenal glands: Unremarkable. Kidneys and ureters: No hydronephrosis or suspicious renal mass. 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 Intraperitoneal space: No ascites. Vasculature: Portal veins are patent. Abdominal aorta is normal in caliber. 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 Lymph nodes: No enlarged lymph nodes. Bones/joints: Normal bone marrow signal. Soft tissues: Unremarkable. IMPRESSION: 1. Right hepatic lobe cyst. 2. 7 mm pancreatic cyst reimaging every 2 years for 10 years is recommended. (Reference: [place], 2017) 3. Splenomegaly. REFERENCES: Iona RODRIGUEZ, et al. Management of Incidental Pancreatic Cysts: A White Paper of the ACR Incidental Findings Committee. J Am Sally Radiol. 2017;14(7):911-923. Louisa Granados MD On 09/22/2022 10:53:51; [id number] [facility] 2022-09-19 16:42:46 PROCEDURE INFORMATIO N: Exam: XR Left Knee Exam date and time: 09/19/2022 4:49 PM Age: 72 years old Clinical indication: Pain; Additional info: /left knee pain limiting mobility TECHNIQUE: Imaging protocol: Radiologic exam of the left knee. Views: 3 views. AP Obilque Lateral COMPARISON: No relevant prior studies available. FINDINGS: Bones/joints: Mild diffuse osteopenia. Moderate tricompartmental osteoarthritis in the left knee greatest in the medial compartment and patellofemoral compartment manifest by joint space narrowing, subchondral sclerosis, and marginal osteophyte formation. Suspected intra-articular loose body superiorly. No acute fracture or dislocation. Moderate to large knee joint effusion. Soft tissues: Mild soft tissue thickening greatest anteriorly and medially. Notes: If there is further concern, recommend follow-up radiographs or MRI for complete assessment. IMPRESSION: 1. Mild diffuse osteopenia. 2. Moderate osteoarthritis. 3. No acute fracture or dislocation. 4. Moderate to large knee joint effusion. Eris Zambrano MD On 09/19/2022 18:22:08; [id number] [facility] 2022-09-18 22:05:00 Radiation Dose CTDIV OL = 0 (mGy): DLP = 341 (mGy-cm) PROCEDURE INFORMATION: Exam: CTA Chest With Contrast Exam date and time: 09/18/2022 10:25 PM Age: 72 years old Clinical indication: /pe protocol, also eval extensive L lung opacities TECHNIQUE: Imaging protocol: Computed tomographic angiography of the chest with contrast. 3D rendering (Not supervised by radiologist): MIP and/or 3D reconstructed images were created by the technologist. Radiation optimization: All CT scans at this facility use at least one of these dose optimization techniques: automated exposure control; mA and/or kV adjustment per patient size (includes targeted exams where dose is matched to clinical indication); or iterative reconstruction. Contrast material: OMNI 350; Contrast volume: 80 ml; Contrast route: INTRAVENOUS (IV); REPORTING DATA: Count of CT and Cardiac NM exams in prior 12 months: This patient has received 0 known CTs and 0 known cardiac nuclear medicine studies in the 12 months prior to the current study. COMPARISON: CHEST 1VIEW DX 09/18/2022 6:18 PM RADIATION DOSE METRICS: Total DLP (mGy-cm): 341 FINDINGS: Pulmonary arteries: Normal. No pulmonary emboli. Aorta: No aortic aneurysm. No aortic dissection. Lungs: Left upper lobe cavitary pulmonary consolidation is identified. Reticular opacities involve the right upper lobe, right middle lobe, bilateral lower lobes. No endobronchial abnormalities identified. Pleural spaces: Unremarkable. No pneumothorax. No pleural effusion. Heart: No cardiomegaly. No pericardial effusion. Lymph nodes: No threshold enlarged lymph nodes. Liver: Liver contour is nodular. There is enlargement of the caudate and left hepatic lobes. Indeterminate right hepatic lobe hypodensity measures 1.6 cm on series 4, image 117. Gallbladder and bile ducts: Gallbladder has been removed. Bones/joints: T4 and T5 superior endplate compression deformities demonstrate less than 25% height loss and no osseous retropulsion. No suspicious lytic or blastic osseous lesions identified. Soft tissues: No soft tissue mass or fluid collection identified. IMPRESSION: Cavitary left upper lobe pneumonia. Follow-up to radiographic resolution is recommended to exclude malignancy. Bilateral lower lobe, right upper lobe, and right middle lobe reticular opacities primarily represent atelectasis. Concurrent pneumonia is however difficult to exclude. Cirrhosis. 1.6 cm indeterminate right hepatic lobe hypodensity is poorly characterized. Nonemergent MRI of the liver with IV contrast is recommended to exclude hepatocellular carcinoma. T4 and T5 superior endplate compression deformities demonstrate less than 25% height loss and no osseous retropulsion. Fractures are age indeterminate. MRI is best for assessing the acuity of these fractures. Quoc Thompson MD On 09/18/2022 23:44:41; [id number] [facility] 2022-09-18 18:21:13 PROCEDURE INFORMATIO N: Exam: XR Chest Exam date and time: 09/18/2022 6:18 PM Age: 72 years old Clinical indication: /dyspnea, HX of chf; () TECHNIQUE: Imaging protocol: Radiologic exam of the chest. Views: 1 view. COMPARISON: No relevant prior studies available. FINDINGS: Lungs: The lungs are hyperlucent which may be due to technique or reflect COPD. Extensive alveolar opacities with air bronchograms left upper lung. Pleural spaces: Minimal thickening right horizontal fissure. Heart/Mediastinum: Cardiac silhouette within normal limits. Bones/joints: Negative acute. IMPRESSION: Extensive airspace disease left lung may reflect pneumonia; neoplasm is not excluded. CT chest can further evaluate. Jersey Hansen MD On 09/18/2022 18:46:46; [id number] [facility] 2022-05-27 15:28:00 [facility] Clinical Note REPORT#:[id number] REPORT STATUS: Signed DATE:05/27/22 TIME: 1528 PATIENT: SEYMOUR DICKERSON UNIT #: [id number] ROOM/BED: [address] : [address] AGE: 71 SEX: M ATTEND: Zander Gaston MD ADM AUTHOR: Zander Gaston MD * ALL edits or amendments must be made on the electronic/computer document * Clinical Note Note: I have independently interviewed and examined this patient on 05/27/22. I have closely reviewed the resident's note. I agree with their assessment/plan. I directly participated in the care of this patient with the resident and carefully reviewed the notes, orders, labs and reports in the hospital EMR system. at 0759 RPT #:[id number] END OF REPORT [facility] 2022-05-27 12:00:00 [facility] Discharge Summary REPORT#:[id number] REPORT STATUS: Signed DATE:05/27/22 TIME: 1200 PATIENT: SEYMOUR DICKERSON UNIT #: [id number] [address] AGE: 71 SEX: M ATTEND: Zander Gaston MD ADM AUTHOR: Kamini Chow MD R1 * ALL edits or amendments must be made on the electronic/computer document * Kamini Chow 05/27/22 1200: PCP PCP PCP: PCP: Seth Lin MD General Information Discharge date: 05/27/22 Discharge diagnosis: Community acquired Pneumonia Reactive airway disease Hospital course: Pt is a 71 y/o male pmhx of HTN, DM, HLD here with "flu like symptoms" of sob, congestion, productive, cough,generalized malaise,abd pain,myalgias and fever.Pt also c/o nausea,bilious vomiting and diarrhea.In the ED pt was sating 86 on RA, tachycardic at 108. Labs significant for hypokalemia of 3.3 and lactic acid of 2.3, troponin of 0.047, TBIL of 2.7, unconj maude of 1.8, AST of 88, ALT of 55, ALKP 130. CXR showed multifocal pna and trace bilateral pleural effusions.EKG showed sinus tachycardia w/o ischemic changes. Pt was given rocpehin, azithromycin and 1 L fluids in the ED and was admitted for further work up.CTA negative for PE, Left upper lobe/middle lobe consolidations compatible w/ PNA.Rapid covid test was negative.Influenza,sputum culture negative.Legionella pending.He is placed on Labs showed AST/ALT: 88:55 compatible w/ hx of alcohol use.Abdomen ultrasound showing cirrhotic changes.Hepatitis pannel negative outside of positive hep A ab. He was treated with IV zosyn and azithromycin.He was found to have a K+ of 3.1 and Mg of 0.6.It is adequately repleted.His BP remained adequately controlled on Coreg 3.125 mg BID and losartan 50 daily.Home statin was kept on hold due to transaminitis.He is advised to follow up outpatient w/ GI for evaluation of cirrhosis.A home oxygen evaluation was done and he qualified for it as he was satting at 85 % without oxygen on exertion.Pt is discharged in a stable condition.He is discharged home on Cefdinir 300 mg BID ,Azithromycin 500 mg OD and PO steroids for 4 days.He is advised to f/u with his PCP in 1-2 weeks.Prescriptions sent electronically to pharmacy.All questions answered. Med Rec PCP PCP: PCP: Seth Lin MD Med Rec Discharge meds: Continue taking these medications: LOSARTAN (COZAAR) 50 MG TAB 50 MILLIGRAM ORAL DAILY. ATORVASTATIN (LIPITOR) 40 MG TAB 40 MILLIGRAM ORAL DAILY. CARVEDILOL (COREG) 3.125 MG TAB 3.125 MILLIGRAM ORAL TWICE DAILY. metFORMIN (GLUCOPHAGE) 1,000 MG TAB 1,000 MILLIGRAM ORAL TWICE DAILY. Instructions: TAKE WITH MEALS glipiZIDE (GLUCOTROL) 5 MG TAB 5 MILLIGRAM ORAL DAILY. LOSARTAN (COZAAR) 50 MG TAB 50 MILLIGRAM ORAL DAILY. Days = 30 Qty = 30 ATORVASTATIN (LIPITOR) 40 MG TAB 40 MILLIGRAM ORAL DAILY. Days = 30 Qty = 30 CARVEDILOL (COREG) 3.125 MG TAB Days = 30 Qty = 60 metFORMIN (GLUCOPHAGE) 1,000 MG TAB 1,000 MILLIGRAM ORAL TWICE DAILY. Days = 30 Qty = 60 Instructions: TAKE WITH MEALS glipiZIDE (GLUCOTROL) 5 MG TAB 5 MILLIGRAM ORAL DAILY. Days = 30 Qty = 30 Start taking the following new medications: AZITHROMYCIN (ZITHROMAX) 500 MG TAB 500 MILLIGRAM ORAL DAILY. Days = 5 Qty = 5 No Refills CEFDINIR (OMNICEF) 300 MG CAP 300 MILLIGRAM ORAL EVERY 12 HOURS. Days = 7 Qty = 14 No Refills CEFDINIR (OMNICEF) 300 MG CAP 300 MILLIGRAM ORAL EVERY 12 HOURS. Days = 7 Qty = 14 No Refills Objective VS/I O Last Documented: Result Date Time O2 Delivery Nasal cannula 05/27 1845 O2 Flow Rate 3.5 05/27 184 Pulse Ox 93 05/27 1609 B/P 125/82 05/27 1609 B/P Mean 96.7 05/27 1609 Temp 97.7 05/27 1609 Pulse 66 05/27 1609 Resp 18 05/27 1609 FiO2 28 05/25 1210 24 hour I O ending at 0700: 05/27 0700 05/26 1900 Intake Total Output Total 600 Balance -600 Output, Urine 600 PATIENT WEIGHT: Weight (lb): Weight (oz): Weight (kg): 135.000 General appearance: alert, awake, oriented, no acute distress, pleasant, conversational, mental status normal, no respiratory distress Cardiovascular: regular rate rhythm, normal heart sounds Respiratory: clear to auscultation, no distress, aerating well Neuro/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: alert, oriented X 3 Results Findings/Data: Laboratory Tests: 05/27 05/27 05/27 05/27 05/27 1658 1225 0454 0410 0410 Chemistry Sodium (137 - 145 mmol/L) 134 L Potassium (3.4 - 5.0 mmol/L) 3.3 L Chloride (98 - 107 mmol/L) 98 Carbon Dioxide (22 - 30 mmol/L) 33 H Anion Gap 6 BUN (9 - 20 mg/dL) 18 Creatinine (0.7 - 1.3 mg/dL) < 0.5 L Glomerular Filtr Rate (mL/min) 108 Glucose (74 - 106 mg/dL) 218 H POC Glucose (74 - 106 MG/DL) 353 H 200 H 205 H Hemoglobin A1c (0 - 5.9 %) 8.7 H Calcium (8.4 - 10.2 mg/dL) 8.0 L Magnesium (1.6 - 2.3 mg/dL) 1.6 Total Bilirubin (0.2 - 1.3 mg/dL) 1.3 Conjugated Bilirubin (0 - 0.3 mg/dL) 0 Unconjugated Bilirubin (0 - 1.1 0.8 mg/dL) AST (15 - 46 U/L) 51 H ALT (0 - 49 U/L) 40 Total Alk Phosphatase (38 - 126 U/L) 87 Total Protein (6.3 - 8.2 g/dL) 5.8 L Albumin (3.5 - 5.0 g/dL) 3.1 L Specimen Hemolysis (0 - 100 25 Index/DL) Hematology WBC (5.0 - 12.0 x10 3/uL) 8.9 RBC (4.70 - 6.10 x10 6/uL) 3.60 L Hgb (14.0 - 18.0 g/dL) 10.9 L Hct (37.0 - 49.0 %) 31.7 L MCV (80 - 94 fL) 88 MCH (27 - 31 pg) 30.3 MCHC (33 - 37 g/dL) 34.4 RDW (11.5 - 15.5 %) 13.2 Plt Count (130 - 400 x10 3/uL) 138 MPV (9.4 - 16.4 fL) 10.2 Neut % (Auto) (43 - 65 %) 79.3 H Lymph % (Auto) (20.5 - 45.5 %) 13.0 L [place] % (Auto) (5.5 - 11.7 %) 5.5 Eos % (Auto) (0.9 - 2.9 %) 1.2 Baso % (Auto) (0.2 - 1.0 %) 0.2 Neut # (Auto) (2.2 - 4.8 x10 3/uL) 7.04 H Lymph # (Auto) (1.3 - 2.9 x10 3/uL) 1.16 L [place] # (Auto) (0.3 - 0.8 x10 3/uL) 0.49 Eos # (Auto) (0.0 - 0.2 x10 3/uL) 0.11 Baso # (Auto) (0.0 - 0.1 x10 3/uL) 0.02 Immature Gran % (0.0 - 2.0 %) 0.8 Nucleated RBC % (0 - 1.0 %) 0.0 Results: labs reviewed, vital signs reviewed, vital signs stable Discharge Instructions PCP PCP: PCP: Seth Lin MD )( Discharge to: Home/Self Care Discharge Instructions Additional Discharge Routines: PCP Follow-Up )( Diet: Diabetic, Cardiac Follow-up Appointments PCP follow up: PCP: Seth Lin MD PCP follow up timeframe: In 1-2 weeks Zander Gaston 05/27/22 1553: Attestations Physician Attestation Agree w/findings plan: I have independently interviewed and examined this patient on 05/27/22. I have closely reviewed the resident's note. I agree with their assessment/plan. I directly participated in the care of this patient with the resident and carefully reviewed the notes, orders, labs and reports in the hospital EMR system. pt doing better d/c home on O2 per walk study results continie course of abx and prednisone dx: CAP pneumonia with reactive airway disease he will need outpatient The total time spent engaging in discharge planning, speaking to the patient in detail about the final diagnoses/prognosis, speaking with case management , doing the discharge summary, placing orders for any referrals and completing prescriptions was32 minutes. at 2110 at 0804 RPT #:[id number] END OF REPORT [facility] 2022-05-27 11:56:00 ([facility] Clinical Note REPORT#:[id number] REPORT STATUS: Signed DATE:05/27/22 TIME: 1156 PATIENT: SEYMOUR DICKERSON UNIT #: [id number] [address] AGE: 71 SEX: M ATTEND: Zander Gaston MD ADM AUTHOR: Marco Saini DO R3 * ALL edits or amendments must be made on the electronic/computer document * Clinical Note Note: I have independently interviewed and examined this patient on 05/27/22. I have closely reviewed the resident's note. I agree with their assessment/plan. I directly participated in the care of this patient with the resident and carefully reviewed the notes, orders, labs and reports in the hospital EMR system. Oxygenating well on 4L NC Switched to oral abx for pna, wbc and vitals stable Requires o2 at home, case management consulted for oxygen DC w/ paremeter at 1200 at 0804 RPT #:[id number] END OF REPORT [facility] 2022-05-26 10:21:00 ([facility]) Hospitalist Progress Note REPORT#:[id number] REPORT STATUS: Signed DATE:05/26/22 TIME: 1021 PATIENT: SEYMOUR DICKERSON UNIT #: [id number] ROOM/BED: [address] : [address] AGE: 71 SEX: M ATTEND: Zander Gaston MD ADM AUTHOR: Kamini Chow MD R1 * ALL edits or amendments must be made on the electronic/computer document * See Addendum Kamini Chow 05/26/22 1021: Subjective Free Text Subj Notes Free Text Subj Notes: -pt seen and examined this am -he reports feeling better -on O2 via NC at 3 l -c/o constipation x 3 days,passing gas,no abdominal pain/nausea/vomiting Review of Systems Constitutional: Denies: chills, fatigue, fever, generalized weakness, lethargy, malaise, recent wt loss. Respiratory: Denies: PRITCHARD (dyspnea on exertion), hemoptysis, non productive cough, parox nocturnal dyspnea, pleurisy, pleuritic pain, pneumonia, productive cough (sputum ), SOB, wheezing. Cardiovascular: Denies: chest pain, PRITCHARD (dyspnea on exertion), edema, orthopnea, palpitations, parox nocturnal dyspnea. GI: Reports: constipation. Denies: abdominal pain, anorexia, diarrhea, dysphagia, GERD, hematemesis, hematochezia, hiatal hernia, melena, nausea, rectal pain, vomiting. All systems rev neg: except as marked Objective General VS/I O: Vital Signs: Date Time Temp Pulse Resp B/P B/P Pulse O2 O2 Flow FiO2 Mean Ox Delivery Rate 05/26 1138 97.7 81 18 133/83 99.4 94 Room air 05/26 0851 97.5 66 18 129/72 90.8 96 05/26 0601 Nasal 2 cannula 05/26 0450 98.1 62 18 122/78 92.5 92 Nasal cannula 05/26 0100 97.9 69 18 121/78 92.8 91 Room air 05/25 2025 98.4 80 18 116/79 91.7 93 Nasal cannula 05/25 1739 98.1 70 20 117/78 91.2 93 24 hour I O ending at 0700: 05/26 0700 05/25 1900 Intake Total 200.00 Output Total 600 500 Balance -600 -300.00 Intake, IV 200.00 Output, Urine 600 500 PATIENT WEIGHT: Weight (lb): Weight (oz): Weight (kg): 135.000 Medications: Active Meds + DC'd Last 24 Hrs Prednisone (DELTASONE,ORASONE) 40 MG DAILY PO Cefdinir (OMNICEF) 300 MG Q12HR PO Insulin Glargine (LANTUS INSULIN) 10 UNITS DAILY SUBQ Lactulose (CONSTULOSE) 30 ML BID PO (CKD) Carvedilol (COREG) 3.125 MG BID PO Azithromycin (AZITHROMYCIN (GENERIC ZITHROMAX)) 500 MG Q24H PO Methylprednisolone Sodium Succinate (Solu-MEDROL) 40 MG Q8HR IV (DC) Acetaminophen (TYLENOL REGULAR) 650 MG Q6H PRN PRN PO Magnesium (MAGNESIUM SULFATE 1GM) 100 ML ASDIR PRN IV Magnesium Sulfate (MAGNESIUM SULFATE 2GM) 50 ML ASDIR PRN IV Magnesium Sulfate (MAGNESIUM SULFATE 4GM) 100 ML ASDIR PRN IV Enoxaparin Sodium (LOVENOX) 40 MG DAILY SUBQ Piperacillin Sod/Tazobactam Sod (ZOSYN) 3.375 GM Q8HR IV (DC) Sodium Chloride (SODIUM CHLORIDE 0.9% MBP) 100 ML Dextrose/Water (DEXTROSE 50% SYR) 25 ML ASDIR PRN IV (CKD) Famotidine (PEPCID) 20 MG Q12HR IV Sodium Chloride (NACL 0.9%) 10 ML Glucagon (GLUCAGON) 1 MG ASDIR PRN IM Insulin Human Lispro (HumaLOG) LOW DOSE SCALE ASDIR SUBQ Hydralazine HCl (APRESOLINE) 10 MG Q6H PRN PRN IV Ondansetron HCl (ZOFRAN 4 MG/2 ML INJ) 4 MG Q4H PRN PRN IV Physical Exam General appearance: respiratory support, alert, awake, oriented, no acute distress, pleasant, conversational, mental status normal, no respiratory distress Head/Eyes: atraumatic, clear cornea, EOMI Cardiovascular: normal heart sounds, regular rate rhythm, no murmur Respiratory: aerating well, clear to auscultation Abdomen: non-tender, soft, no distention Extremities: moves all, bilateral 1+ pitting edema Neuro/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: alert, CNII-XII intact, normal speech Skin: dry, intact Psychiatry: normal affect, normal judgment/insight, normal mood Results Findings/Data: Laboratory Tests 05/26 05/26 05/25 1147 0035 1626 Chemistry Sodium (137 - 145 mmol/L) 133 L Potassium (3.4 - 5.0 mmol/L) 3.4 Chloride (98 - 107 mmol/L) 97 L Carbon Dioxide (22 - 30 mmol/L) 33 H Anion Gap 6 BUN (9 - 20 mg/dL) 13 Creatinine (0.7 - 1.3 mg/dL) 0.5 L Glomerular Filtr Rate (mL/min) 108 Glucose (74 - 106 mg/dL) 274 H POC Glucose (74 - 106 MG/DL) 392 H 159 H Calcium (8.4 - 10.2 mg/dL) 8.1 L Magnesium (1.6 - 2.3 mg/dL) 1.7 Total Bilirubin (0.2 - 1.3 mg/dL) 1.7 H Conjugated Bilirubin (0 - 0.3 mg/dL) 0 Unconjugated Bilirubin (0 - 1.1 mg/dL) 1.1 AST (15 - 46 U/L) 71 H ALT (0 - 49 U/L) 46 Total Alk Phosphatase (38 - 126 U/L) 102 Total Protein (6.3 - 8.2 g/dL) 6.1 L Albumin (3.5 - 5.0 g/dL) 3.3 L Specimen Hemolysis (0 - 100 Index/DL) 18 Laboratory Tests 05/26 0456 Hematology WBC (5.0 - 12.0 x10 3/uL) 4.9 L RBC (4.70 - 6.10 x10 6/uL) 4.01 L Hgb (14.0 - 18.0 g/dL) 12.0 L Hct (37.0 - 49.0 %) 35.2 L MCV (80 - 94 fL) 88 MCH (27 - 31 pg) 29.9 MCHC (33 - 37 g/dL) 34.1 RDW (11.5 - 15.5 %) 13.2 Plt Count (130 - 400 x10 3/uL) 133 MPV (9.4 - 16.4 fL) 10.2 Neut % (Auto) (43 - 65 %) 84.8 H Lymph % (Auto) (20.5 - 45.5 %) 13.2 L [place] % (Auto) (5.5 - 11.7 %) 1.4 L Eos % (Auto) (0.9 - 2.9 %) 0.0 L Baso % (Auto) (0.2 - 1.0 %) 0.2 Neut # (Auto) (2.2 - 4.8 x10 3/uL) 4.16 Lymph # (Auto) (1.3 - 2.9 x10 3/uL) 0.65 L [place] # (Auto) (0.3 - 0.8 x10 3/uL) 0.07 L Eos # (Auto) (0.0 - 0.2 x10 3/uL) 0.00 Baso # (Auto) (0.0 - 0.1 x10 3/uL) 0.01 Immature Gran % (0.0 - 2.0 %) 0.4 Nucleated RBC % (0 - 1.0 %) 0.0 Results: labs reviewed, vital signs reviewed, current med profile rev'd Diagnosis, Assessment Plan Free Text DxA P Notes Free text DxA P notes: Pt is a a 71 y/o male pmhx of HTN, DM, HLD here with complaints of sob, congestion, productive, cough, generalized malaise, abd pain, myalgias and fever. [place] here. #acute hypoxic respiratory failure in setting of PNA #Severe sepsis 2/2 multifocal pna -reports 2 days of fever, cough, weakness, disorientation, generalized malaise -HR 108, sating 80s on RA upon arrival -WBC 10.2, lactic acid 2.3 -ED gave rocephin, azithro and 1 L fluids -CXR- multifocal pna with small bialteral pleural effusions. -CTA negative for PE, Left upper lobe/middle lobe consolidations compatible w/ PNA -was on IV zosyn, azithromycin -switch to oral abx today-Cefdinir 300 mg BID,Azithromycin 500 mg OD for 4 days -Rapid covid test-negative, Influenza, sputum Legionella pending #Diziness,headache -05/25 CT head-negative -Bp elevated -orthostatic vital signs #Abd pain #n/v #hyperbilirubinemia #transaminitis #cirrhosis -mild TTP of epigastic region -AST/ALT: 88:55 compatible w/ hx of alcohol use -Unconj bili 1.8, conj bili:0 -abd us showing cirrhotic changes -hepatitis pannel negative outside of positive hep A ab. -hold home med lipitor for now -zofran prn -iv pepcid -Cirrhotic w/u as outpatient w/ GI. #troponinemia -Asx no cp, sob likely infectoius etiology -0.047 now negative .01 -EKG ordered, showing sinus tachycardia w/o ischemic changes. -On telemetry #hypokalemia -K+ 3.1 -repleting w/ oral potassium 40. -Replete magnesium, in order to improve low potassium. -3.4 today #hypomagnesemia -0.6 on arrival -1.7today -PRN electrolyte sliding scale for magnesium #HTN -Restarted Coreg 3.125 mg BID -hold losartan 50 daily #HLD -resume home statin once transaminitis resolves. #CHF -pt states he may have been told he has chf. -pt looks slightly hypervolemic on exam #DM -blood sugar high today -On sliding scale,added 10 units Lantus today #constipation -Lactulose 30 ml BID Code: full Diet: cardiac VTE ppx: lovenox Plan -Continue Cefdinir 300 mg BID,Azithromycin 500 mg OD for 4 days -monitor blood sugar -will assess need for home O2 and dc in the am if stable -PT/OT recs Discussed with attending Zander Mills 05/26/22 1304: Attestations Physician Attestation Agree w/findings plan: I have independently interviewed and examined this patient on 05/25/22. I have closely reviewed the resident's note. I agree with their assessment/plan. I directly participated in the care of this patient with the resident and carefully reviewed the notes, orders, labs and reports in the hospital EMR system. pt looks better. he is on room air again decreased wheezing heard I have extensively/independently reviewed all lab work (cbc, BMP, accucheck) I have ordered these pertinent labs/test: accuchecks and check swallow eval Risk of complications and/or Morbidity or Mortality of Patient Management- Moderate risk. change to oral abx and steroids. check an amb walk study in the AM. pt needs better sugar control. plan for d.c tomorrow at 1408 at 0823 Addendum 1: 05/27/22 1528 by Zander Gaston MD above note date is 05/26/22 at 1528 RPT #:[id number] END OF REPORT [facility] 2022-05-25 09:54:00 [facility] REPORT#:[id number] REPORT STATUS: Signed DATE:05/25/22 TIME: 953 PATIENT: SEYMOUR DICKERSON UNIT #: [id number] ROOM/BED: [address] : 48 AGE: 71 SEX: M ATTEND: Zander Gaston MD ADM AUTHOR: Kamini Chow MD R1 * ALL edits or amendments must be made on the electronic/computer document * Kamini Chow 05/25/22 0954: Subjective Free Text Subj Notes Free Text Subj Notes: -pt seen and examined today -no overnight events -C/o feeling dizzy, associated with headache,generalized weakness.Cough has improved. -afebrile -BP elevated -On O2 via NC at 3 l Review of Systems Constitutional: Reports: generalized weakness. Denies: chills, fatigue, fever, lethargy, malaise, recent wt loss. Respiratory: Denies: PRITCHARD (dyspnea on exertion), hemoptysis, non productive cough, parox nocturnal dyspnea, pleurisy, pleuritic pain, pneumonia, productive cough (sputum ), SOB, wheezing. Cardiovascular: Denies: chest pain, PRITCHARD (dyspnea on exertion), edema, orthopnea, palpitations, parox nocturnal dyspnea. GI: Denies: abdominal pain, anorexia, constipation, diarrhea, dysphagia, GERD, hematemesis, hematochezia, hiatal hernia, melena, nausea, rectal pain, vomiting. Neuro: Reports: dizziness, headache. Denies: bladder dysfunction, bowel dysfunction, change in LOC, confusion, focal weakness, gait problem, lightheaded, numbness, seizure, slurred speech, spinning sensation, syncope, unable to speak, vision change, weakness. Objective General VS/I O: Vital Signs: Date Time Temp Pulse Resp B/P B/P Pulse O2 O2 Flow FiO2 Mean Ox Delivery Rate 05/25 1123 98.2 53 17 125/69 87.4 92 Nasal 2 cannula 05/25 0855 97.9 101 20 161/92 114.7 94 05/25 0401 97.5 62 16 136/85 101.9 96 05/24 2332 97.2 75 18 134/77 96.3 89 05/24 2037 98.4 86 18 119/68 84.8 91 05/24 2000 Nasal 3 cannula 05/24 1527 98.2 75 18 151/88 108.6 93 05/24 1144 2 24 hour I O ending at 0700: 05/25 0700 05/24 1900 Intake Total Output Total 1000 Balance -1000 Number Voids 2 Output, Urine 1000 PATIENT WEIGHT: Weight (lb): Weight (oz): Weight (kg): 135.000 Medications: Active Meds + DC'd Last 24 Hrs Carvedilol (COREG) 3.125 MG BID PO Azithromycin (AZITHROMYCIN (GENERIC ZITHROMAX)) 500 MG Q24H PO Carvedilol (COREG) 3.125 MG ONCE ONE PO (DC) Acetaminophen (TYLENOL REGULAR) 650 MG Q6H PRN PRN PO Potassium Chloride (K-DUR) 40 MEQ ONCE ONE PO (DC) Acetaminophen/Butalbital/Caffeine (FIORICET,ESGIC) 1 TAB NOW PO (DC) Magnesium (MAGNESIUM SULFATE 1GM) 100 ML ASDIR PRN IV Magnesium Sulfate (MAGNESIUM SULFATE 2GM) 50 ML ASDIR PRN IV Magnesium Sulfate (MAGNESIUM SULFATE 4GM) 100 ML ASDIR PRN IV Azithromycin (ZITHROMAX) 500 MG Q24H IV (DC) Sodium Chloride (SODIUM CHLORIDE 0.9%) 250 ML Enoxaparin Sodium (LOVENOX) 40 MG DAILY SUBQ Piperacillin Sod/Tazobactam Sod (ZOSYN) 3.375 GM Q8HR IV Sodium Chloride (SODIUM CHLORIDE 0.9% MBP) 100 ML Dextrose/Water (DEXTROSE 50% SYR) 25 ML ASDIR PRN IV (CKD) Famotidine (PEPCID) 20 MG Q12HR IV Sodium Chloride (NACL 0.9%) 10 ML Glucagon (GLUCAGON) 1 MG ASDIR PRN IM Insulin Human Lispro (HumaLOG) LOW DOSE SCALE ASDIR SUBQ Hydralazine HCl (APRESOLINE) 10 MG Q6H PRN PRN IV Ondansetron HCl (ZOFRAN 4 MG/2 ML INJ) 4 MG Q4H PRN PRN IV Physical Exam General appearance: alert, awake, oriented, no acute distress, pleasant, conversational, mental status normal, no respiratory distress Head/Eyes: atraumatic, clear cornea, EOMI Cardiovascular: normal heart sounds, regular rate rhythm, no murmur Respiratory: aerating well, clear to auscultation Abdomen: non-tender, soft, no distention Extremities: moves all, bilateral 1+ pitting edema Neuro/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: alert, CNII-XII intact, normal speech Skin: dry, intact Psychiatry: normal affect, normal judgment/insight, normal mood Results Findings/Data: Laboratory Tests 05/25 05/25 05/24 05/24 05/24 0419 0356 2034 1558 1453 Chemistry Sodium (137 - 145 mmol/L) 135 L Potassium (3.4 - 5.0 mmol/L) 3.1 L Chloride (98 - 107 mmol/L) 99 Carbon Dioxide (22 - 30 mmol/L) 31 H Anion Gap 8 BUN (9 - 20 mg/dL) 9 Creatinine (0.7 - 1.3 mg/dL) < 0.5 L Glomerular Filtr Rate (mL/min) 108 Glucose (74 - 106 mg/dL) 157 H POC Glucose (74 - 106 MG/DL) 166 H 260 H 288 H Calcium (8.4 - 10.2 mg/dL) 8.4 Magnesium (1.6 - 2.3 mg/dL) 1.4 L 1.1 L Total Bilirubin (0.2 - 1.3 mg/dL) 1.5 H Conjugated Bilirubin (0 - 0.3 mg/dL) 0 Unconjugated Bilirubin (0 - 1.1 mg/dL) 0.9 AST (15 - 46 U/L) 77 H ALT (0 - 49 U/L) 48 Total Alk Phosphatase (38 - 126 U/L) 88 Total Protein (6.3 - 8.2 g/dL) 6.2 L Albumin (3.5 - 5.0 g/dL) 3.4 L Specimen Hemolysis (0 - 100 Index/DL) 25 Laboratory Tests 05/25 0419 Hematology WBC (5.0 - 12.0 x10 3/uL) 5.1 RBC (4.70 - 6.10 x10 6/uL) 4.08 L Hgb (14.0 - 18.0 g/dL) 12.6 L Hct (37.0 - 49.0 %) 36.5 L MCV (80 - 94 fL) 90 MCH (27 - 31 pg) 30.9 MCHC (33 - 37 g/dL) 34.5 RDW (11.5 - 15.5 %) 13.5 Plt Count (130 - 400 x10 3/uL) 129 L MPV (9.4 - 16.4 fL) 9.9 Neut % (Auto) (43 - 65 %) 51.0 Lymph % (Auto) (20.5 - 45.5 %) 31.2 [place] % (Auto) (5.5 - 11.7 %) 13.0 H Eos % (Auto) (0.9 - 2.9 %) 3.8 H Baso % (Auto) (0.2 - 1.0 %) 0.6 Neut # (Auto) (2.2 - 4.8 x10 3/uL) 2.58 Lymph # (Auto) (1.3 - 2.9 x10 3/uL) 1.58 [place] # (Auto) (0.3 - 0.8 x10 3/uL) 0.66 Eos # (Auto) (0.0 - 0.2 x10 3/uL) 0.19 Baso # (Auto) (0.0 - 0.1 x10 3/uL) 0.03 Immature Gran % (0.0 - 2.0 %) 0.4 Nucleated RBC % (0 - 1.0 %) 0.0 Radiology data: Recent Impressions: CAT SCAN - CT HEAD/BRAIN W/O CONT 05/25 1000 Report Impression - Status: SIGNED Entered: 05/25/2022 1019 IMPRESSION: No acute intracranial process seen. Impression By: [email or web address] - Valeriy Basilio MD Diagnosis, Assessment Plan Free Text DxA P Notes Free text DxA P notes: Pt is a a 71 y/o male pmhx of HTN, DM, HLD here with complaints of sob, congestion, productive, cough, generalized malaise, abd pain, myalgias and fever. [place]. #acute hypoxic respiratory failure in setting of PNA #Severe sepsis 2/2 multifocal pna -reports 2 days of fever, cough, weakness, disorientation, generalized malaise -HR 108, sating 80s on RA upon arrival, now on room air. -WBC 10.2, lactic acid 2.3 -ED gave rocephin, azithro and 1 L fluids -CXR- multifocal pna with small bialteral pleural effusions. -CTA negative for PE, Left upper lobe/middle lobe consolidations compatible w/ PNA -IV zosyn, azithromycin switch to oral abx in AM. -Rapid covid test-negative, Influenza, sputum Legionella pending #Diziness,headache -05/25 CT head-negative -Bp elevated -orthostatic vital signs #Abd pain #n/v #hyperbilirubinemia #transaminitis #cirrhosis -mild TTP of epigastic region -AST/ALT: 88:55 compatible w/ hx of alcohol use -Unconj bili 1.8, conj bili:0 -abd us showing cirrhotic changes -hepatitis pannel negative outside of positive hep A ab. -hold home med lipitor for now -zofran prn -iv pepcid -Cirrhotic w/u as outpatient w/ GI. #troponinemia -Asx no cp, sob likely infectoius etiology -0.047 now negative .01 -EKG ordered, showing sinus tachycardia w/o ischemic changes. -On telemetry #hypokalemia -K+ 3.1 -repleting w/ oral potassium 40. -Replete magnesium, in order to improve low potassium. #hypomagnesemia -0.6 on arrival -1.4 today -PRN electrolyte sliding scale for magnesium #HTN -Restarted Coreg 3.125 mg BID -hold losartan 50 daily and coreg 3.125 bid for now. #HLD -resume home statin once transaminitis resolves. #CHF -pt states he may have been told he has chf. -pt looks slightly hypervolemic on exam #DM -low dose sliding scale Code: full Diet: cardiac VTE ppx: lovenox Plan -continue IVF -Replace Mag/K+, f/u on lab in afternoon -continue zosyn/Rocephin for PNA -F/u on sputum cx. Discussed with attending Zander Mills 05/25/22 1201: Attestations Physician Attestation Agree w/findings plan: I have independently interviewed and examined this patient on 05/25/22. I have closely reviewed the resident's note. I agree with their assessment/plan. I directly participated in the care of this patient with the resident and carefully reviewed the notes, orders, labs and reports in the hospital EMR system. pt looks sicker. on 3L mild bilateral end-exp wheezing heard I have extensively/independently reviewed all lab work (cbc, BMP, MG) I have personally/independently reviewed all radiology reports and films myself (CT angio) I have ordered these pertinent labs/test: CHECK BMP/MAG IN THE AM and check swallow eval Risk of complications and/or Morbidity or Mortality of Patient Management- High risk. pt is back on oxygen again at 3L. he has bilateral wheezing on exam. no prior hx of COPD or asthma. Likely due to reactive airway disease from pneumonia. start IV steroids. pt needs to be followed closely for further respiratory deterioration/acute hypoxic respiratory failure. check swallow eval. he can have an outpt cirrhosis eval. at 1948 at [address] [facility] #:[id number] END OF REPORT [facility] 2022-05-24 07:25:00 ([facility]) Hospitalist Progress Note REPORT#:[id number] REPORT STATUS: Signed DATE:05/24/22 TIME: 724 PATIENT: SEYMOUR DICKERSON UNIT #: [id number] ROOM/BED: [address] : 48 AGE: 71 SEX: M ATTEND: Zander Gaston MD ADM AUTHOR: Marco Saini DO R3 * ALL edits or amendments must be made on the electronic/computer document * Marco Saini 05/24/22 0725: Subjective Free Text Subj Notes Free Text Subj Notes: Patient is stable currently saturating well on room air Shortness of breath, cough, constitutional sx are improved Mild headache On IV Zosyn/Azithro Objective General VS/I O: Vital Signs: Date Time Temp Pulse Resp B/P B/P Pulse O2 O2 Flow FiO2 Mean Ox Delivery Rate 05/24 0808 36.7 75 18 119/68 85.0 90 05/24 0456 36.7 70 18 122/79 93.2 91 Nasal 3 cannula 05/24 0246 Nasal 2 cannula 05/24 0210 36.7 66 20 127/85 98.9 89 Nasal 3 cannula 05/23 2330 36.4 70 21 141/89 106.5 94 Nasal 3 cannula 05/23 1928 36.7 76 23 135/82 99.7 95 Nasal 3 cannula 05/23 1514 36.6 85 150/82 104.7 92 05/23 1131 36.6 77 133/80 97.6 94 24 hour I O ending at 0700: 05/24 0700 05/23 1900 Intake Total 200.00 Output Total 700 Balance -500.00 Intake, IV 200.00 Output, Urine 700 PATIENT WEIGHT: Weight (lb): Weight (oz): Weight (kg): 135.000 Physical Exam General appearance: awake, oriented Head/Eyes: atraumatic, clear cornea, EOMI Cardiovascular: normal heart sounds, regular rate rhythm, no murmur Respiratory: aerating well, clear to auscultation Abdomen: non-tender, soft, no distention Extremities: moves all, bilateral 1+ pitting edema Neuro/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: alert, CNII-XII intact, normal speech Skin: dry, intact Psychiatry: normal affect, normal judgment/insight, normal mood Results Findings/Data: Laboratory Tests 05/24 05/23 05/23 05/23 05/23 0349 1218 1218 1218 1218 Chemistry Sodium (137 - 145 mmol/L) 135 L Potassium (3.4 - 5.0 mmol/L) 3.0 L Chloride (98 - 107 mmol/L) 100 Carbon Dioxide (22 - 30 mmol/L) 29 Anion Gap 9 BUN (9 - 20 mg/dL) 15 Creatinine (0.7 - 1.3 mg/dL) 0.5 L Glomerular Filtr Rate (mL/min) 108 Glucose (74 - 106 mg/dL) 213 H Lactic Acid (0.7 - 2.0 mmol/L) 1.9 Calcium (8.4 - 10.2 mg/dL) 8.4 Troponin I (0.012 - 0.033 ng/mL) 0.017 0.017 Triglycerides (mg/dL) 164 Cholesterol (mg/dL) 143 LDL Cholesterol Me[place] (32 - 99 mg/dL) 57.37 HDL Cholesterol (40 - 59 mg/dL) 42 Coronary Risk Interp 3.40 Specimen Hemolysis (0 - 100 Index/DL) < 15 Laboratory Tests 05/24 348 Hematology WBC (5.0 - 12.0 x10 3/uL) 5.1 RBC (4.70 - 6.10 x10 6/uL) 3.95 L Hgb (14.0 - 18.0 g/dL) 12.2 L Hct (37.0 - 49.0 %) 35.7 L MCV (80 - 94 fL) 90 MCH (27 - 31 pg) 30.9 MCHC (33 - 37 g/dL) 34.2 RDW (11.5 - 15.5 %) 13.9 Plt Count (130 - 400 x10 3/uL) 117 L MPV (9.4 - 16.4 fL) 9.7 Neut % (Auto) (43 - 65 %) 58.2 Lymph % (Auto) (20.5 - 45.5 %) 26.1 [place] % (Auto) (5.5 - 11.7 %) 11.0 Eos % (Auto) (0.9 - 2.9 %) 3.3 H Baso % (Auto) (0.2 - 1.0 %) 0.8 Neut # (Auto) (2.2 - 4.8 x10 3/uL) 2.96 Lymph # (Auto) (1.3 - 2.9 x10 3/uL) 1.33 [place] # (Auto) (0.3 - 0.8 x10 3/uL) 0.56 Eos # (Auto) (0.0 - 0.2 x10 3/uL) 0.17 Baso # (Auto) (0.0 - 0.1 x10 3/uL) 0.04 Immature Gran % (0.0 - 2.0 %) 0.6 Nucleated RBC % (0 - 1.0 %) 0.0 Laboratory Tests 05/23 1218 Serology SARS-CoV-2 Ag (Rapid) (Negative) NEGATIVE Radiology data: Recent Impressions: CAT SCAN - CT ANGIO CHEST 05/23 1558 Report Impression - Status: SIGNED Entered: 05/23/2022 7984 IMPRESSION: 1. No obvious pulmonary embolism, dissection or heart strain. 2. 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 3. Predominantly left-sided consolidations likely due to pneumonia. Bibasilar atelectasis also present. 4. Healing right rib fractures. Impression By: Gertrudis Salomon MD Diagnosis, Assessment Plan Free Text DxA P Notes Free text DxA P notes: Pt is a a 71 y/o male pmhx of HTN, DM, HLD here with complaints of sob, congestion, productive, cough, generalized malaise, abd pain, myalgias and fever. [place]. #acute hypoxic respiratory failure in setting of PNA #Severe sepsis 2/2 multifocal pna -reports 2 days of fever, cough, weakness, disorientation, generalized malaise -HR 108, sating 80s on RA upon arrival, now on room air. -WBC 10.2, lactic acid 2.3 -ED gave rocephin, azithro and 1 L fluids -CXR- multifocal pna with small bialteral pleural effusions. -CTA negative for PE, Left upper lobe/middle lobe consolidations compatible w/ PNA -IV zosyn, azithromycin switch to oral abx in AM. -Rapid covid test-negative, Influenza, sputum Legionella pending #Abd pain #n/v #hyperbilirubinemia #transaminitis #cirrhosis -mild TTP of epigastic region -AST/ALT: 88:55 compatible w/ hx of alcohol use -Unconj bili 1.8, conj bili:0 -abd us showing cirrhotic changes -hepatitis pannel negative outside of positive hep A ab. -hold home med lipitor for now -zofran prn -iv pepcid -Cirrhotic w/u as outpatient w/ GI. #troponinemia -Asx no cp, sob likely infectoius etiology -0.047 now negative .01 -EKG ordered, showing sinus tachycardia w/o ischemic changes. -On telemetry #hypokalemia -K+ 3.0 -repleting w/ oral potassium 40. -Replete magnesium, in order to improve low potassium. #hypomagnesemia -0.6 on arrival -Given 2gm magnesium sulfate -Repeat ordered -PRN electrolyte sliding scale for magnesium #HTN -bp controlled for now. -hold losartan 50 daily and coreg 3.125 bid for now. #HLD -resume home statin once transaminitis resolves. #CHF -pt states he may have been told he has chf. -pt looks slightly hypervolemic on exam #DM -low dose sliding scale Code: full Diet: cardiac VTE ppx: lovenox Plan -continue IVF -Replace Mag/K+, f/u on lab in afternoon -continue zosyn/Rocephin for PNA -F/u on flu, sputum cx. -On room air, if clinically stable in am will dc w/ oral abx. Discussed with attending Zander Mills 05/24/22 1500: Attestations Physician Attestation Agree w/findings plan: I have independently interviewed and examined this patient on 05/24/22. I have closely reviewed the resident's note. I agree with their assessment/plan. I directly participated in the care of this patient with the resident and carefully reviewed the notes, orders, labs and reports in the hospital EMR system. I have extensively/independently reviewed all lab work (cbc, cmp) I have personally/independently reviewed all radiology reports and films myself (CT angio) I have ordered these pertinent labs/test: check swallow eval Risk of complications and/or Morbidity or Mortality of Patient Management- moderate risk. pt on room air. CT shows left sided pneumonia. check swallow eval. he can have an outpt cirrhosis eval. plan for d/c in the AM at 1103 at 1504 RPT #:[id number] END OF RE[facility]:00 [facility] Clinical Note REPORT#:[id number] REPORT STATUS: Signed DATE:05/23/22 TIME: 1445 PATIENT: SEYMOUR DICKERSON UNIT #: [id number] ROOM/BED: [address] : 48 AGE: 71 SEX: M ATTEND: Zander Gaston MD ADM AUTHOR: Marco Saini DO R3 * ALL edits or amendments must be made on the electronic/computer document * Clinical Note Note: 71 y/o male pmhx of HTN, DM, HLD here with complaints of sob, congestion, productive, cough, generalized malaise, abd pain, myalgias and fever. He was initially hypoxic now saturating well on 2L NC, cxray showing multifocal pna. Started on IVF, zosyn/Rocephin. COVID negative, Flu pending. CTA pending r/o PE. transaminitis, increased unconj bili w/ hx of chronic alcohol use and abd ultrasound showing findings of cirrhosis. 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 at 1456 at 0744 RPT #:[id number] END OF REPORT [facility] 11:36:00 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 Review of Systems Constitutional: Reports: fever, generalized weakness. Denies: chills, fatigue, lethargy. Objective General VS/I O: Vital Signs: Date Time Temp Pulse Resp B/P B/P Pulse O2 O2 Flow FiO2 Mean Ox Delivery Rate 05/23 1131 97.9 77 133/80 97.6 94 05/23 0732 98.1 90 107/69 81.7 93 05/23 0117 86 123/83 96.2 94 05/23 0103 86 18 136/88 104.1 94 05/22 2324 87 124/71 88.4 91 05/22 1731 98.8 108 18 133/85 100.7 86 Room air 05/22 1731 98.8 108 18 133/85 100.7 86 Room air 24 hour I O ending at 0700: 05/23 0700 05/22 1900 Intake Total Output Total Balance Patient 135 kg Weight Weight Stated/Reported Measurement Method PATIENT WEIGHT: Weight (lb): Weight (oz): Weight (kg): 135.000 Medications: Active Meds + DC'd Last 24 Hrs Azithromycin (ZITHROMAX) 500 MG Q24H IV Sodium Chloride (SODIUM CHLORIDE 0.9%) 250 ML Magnesium (MAGNESIUM SULFATE 1GM) 100 ML ONCE ONE IV (CAN) Enoxaparin Sodium (LOVENOX) 40 MG DAILY SUBQ Magnesium Sulfate (MAGNESIUM SULFATE 4GM) 100 ML ONCE ONE IV (DC) Albumin Human (ALBUMIN 25%) 100 ML Q12HR IV (DC) Piperacillin Sod/Tazobactam Sod (ZOSYN) 3.375 GM Q8HR IV Sodium Chloride (SODIUM CHLORIDE 0.9% MBP) 100 ML Potassium Chloride (K-DUR) 20 MEQ ONCE PO (DC) Dextrose/Water (DEXTROSE 50% SYR) 25 ML ASDIR PRN IV (CKD) Famotidine (PEPCID) 20 MG Q12HR IV Sodium Chloride (NACL 0.9%) 10 ML Glucagon (GLUCAGON) 1 MG ASDIR PRN IM Insulin Human Lispro (HumaLOG) LOW DOSE SCALE ASDIR SUBQ Hydralazine HCl (APRESOLINE) 10 MG Q6H PRN PRN IV Ondansetron HCl (ZOFRAN 4 MG/2 ML INJ) 4 MG Q4H PRN PRN IV Sodium Chloride (SODIUM CHLORIDE FLUSH) 5 ML ASDIR PRN IV (DC) Sodium Chloride (SODIUM CHLORIDE FLUSH) 5 ML Q12HR IV (DC) Sodium Chloride (NACL 0.9%) 10 ML ASDIR PRN IV (DC) Sodium Chloride (SODIUM CHLORIDE 0.9%) 250 ML ASDIR PRN IV (DC) Ondansetron HCl (ZOFRAN 4 MG/2 ML INJ) 4 MG Q4H PRN PRN IV (DC) Azithromycin (ZITHROMAX) 500 MG X1ED STA IV (DC) Sodium Chloride (SODIUM CHLORIDE 0.9%) 250 ML Ceftriaxone Sodium (ROCEPHIN) 1,000 MG X1ED STA IV (DC) Sodium Chloride (NACL 0.9%) 10 ML Lactated Ringer's (LACTATED RINGERS) 1,000 ML X1ED STA IV (DC) Physical Exam General appearance: frail, obese, alert, awake, oriented, no acute distress, pleasant, conversational, mental status normal, no respiratory distress Head/Eyes: atraumatic, clear cornea, EOMI Cardiovascular: normal heart sounds, regular rate rhythm, no murmur Respiratory: aerating well, clear to auscultation Abdomen: non-tender, soft, no distention Extremities: moves all, bilateral 1+ pitting edema Neuro/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: alert, CNII-XII intact, normal speech Skin: dry, intact Psychiatry: normal affect, normal judgment/insight, normal mood Results Findings/Data: Laboratory Tests 05/23 05/23 05/22 05/22 05/22 0304 0304 1916 1809 1809 Chemistry Sodium (137 - 145 mmol/L) 135 L Potassium (3.4 - 5.0 mmol/L) 3.3 L Chloride (98 - 107 mmol/L) 102 Carbon Dioxide (22 - 30 mmol/L) 25 Anion Gap 12 BUN (9 - 20 mg/dL) 21 H Creatinine (0.7 - 1.3 mg/dL) 0.6 L Glomerular Filtr Rate (mL/min) 102 Glucose (74 - 106 mg/dL) 149 H Lactic Acid (0.7 - 2.0 mmol/L) 2.3 *H Calcium (8.4 - 10.2 mg/dL) 8.9 Magnesium (1.6 - 2.3 mg/dL) 0.7 L Total Bilirubin (0.2 - 1.3 mg/dL) 2.7 H Conjugated Bilirubin (0 - 0.3 mg/dL) 0 Unconjugated Bilirubin (0 - 1.1 mg/dL) 1.8 H AST (15 - 46 U/L) 88 H ALT (0 - 49 U/L) 55 H Total Alk Phosphatase (38 - 126 U/L) 130 H CK-MB (CK-2) (0.5 - 5.0 ng/mL) 0.99 Troponin I (0.012 - 0.033 ng/mL) 0.032 0.047 H Total Protein (6.3 - 8.2 g/dL) 7.6 Albumin (3.5 - 5.0 g/dL) 4.0 Specimen Hemolysis (0 - 100 Index/DL) < 15 Laboratory Tests 05/23 05/22 0304 1809 Hematology WBC (5.0 - 12.0 x10 3/uL) 7.9 10.2 RBC (4.70 - 6.10 x10 6/uL) 4.48 L 4.86 Hgb (14.0 - 18.0 g/dL) 13.8 L 15.1 Hct (37.0 - 49.0 %) 40.5 43.8 MCV (80 - 94 fL) 90 90 MCH (27 - 31 pg) 30.8 31.1 H MCHC (33 - 37 g/dL) 34.1 34.5 RDW (11.5 - 15.5 %) 14.1 14.2 Plt Count (130 - 400 x10 3/uL) 152 169 MPV (9.4 - 16.4 fL) 9.7 9.5 Neut % (Auto) (43 - 65 %) 74.8 H 78.1 H Lymph % (Auto) (20.5 - 45.5 %) 17.1 L 14.7 L [place] % (Auto) (5.5 - 11.7 %) 7.0 5.7 Eos % (Auto) (0.9 - 2.9 %) 0.1 L 0.1 L Baso % (Auto) (0.2 - 1.0 %) 0.6 0.8 Neut # (Auto) (2.2 - 4.8 x10 3/uL) 5.92 H 7.95 H Lymph # (Auto) (1.3 - 2.9 x10 3/uL) 1.35 1.50 [place] # (Auto) (0.3 - 0.8 x10 3/uL) 0.55 0.58 Eos # (Auto) (0.0 - 0.2 x10 3/uL) 0.01 0.01 Baso # (Auto) (0.0 - 0.1 x10 3/uL) 0.05 0.08 Immature Gran % (0.0 - 2.0 %) 0.4 0.6 Nucleated RBC % (0 - 1.0 %) 0.0 0.0 Laboratory Tests 05/23 0304 Serology Hepatitis A IgM Ab (NEGATIVE) NEGATIVE Hepatitis A Ab Total (NEGATIVE) POSITIVE H Hep Bs Antigen (NEGATIVE) NEGATIVE Hep B Core IgM Ab (NEGATIVE) NEGATIVE Hepatitis C Antibody (NEGATIVE) NEGATIVE Radiology data: Recent Impressions: RADIOLOGY - XR CHEST 1 V 05/22 1732 Report Impression - Status: SIGNED Entered: 05/22/2022 1746 IMPRESSION: Findings likely reflecting a combination of multifocal pneumonia and trace bilateral pleural effusions Impression By: Shawna Denney MD ULTRASOUND - US ABDOMEN [facility] 05/23 06 Report Impression - Status: SIGNED Entered: 05/23/2022 0636 IMPRESSION: 1. Markedly limited exam as above. Suggestion of cirrhotic morphology of the liver although this is not definitive. Please see above. Impression By: [email or web address] - Jose G Ferrell MD Diagnosis, Assessment Plan Free Text DxA P Notes Free text DxA P notes: Pt is a a 71 y/o male pmhx of HTN, DM, HLD here with complaints of sob, congestion, productive, cough, generalized malaise, abd pain, myalgias and fever. [place]. #severe sepsis #acute hypoxic respiratory failure #multifocal pna #productive cough -reports 2 days of fever, cough, weakness, disorientation, generalized malaise -HR 108, sating 86 on RA upon arrival. -lactic acid 2.3 -ED gave rocephin, azithro and 1 L fluids -cxr shows multifocal pna with small bialteral pleural effusions. -CTA ordered -ABG -zosyn, azithromycin -sputum culture, checking flu -Rapid covid test-negative, get RT-PCR -albumin for second line resuscitation #Abd pain #n/v #hyperbilirubinemia #transaminitis #cirrhosis -mild TTP of epigastic region -abd us -cirrhotic changes -hepatitis pannel -hold home med lipitor for now -zofran prn -iv pepcid #troponinemia -0.047 -EKG ordered. continue to trend. -telemetry -denies chest pain. possibly demand from tachycardia. #hypokalemia -3.3. -repleting #hypomagnesemia -0.6 -repleting #HTN -bp controlled for now. -hold losartan 50 daily and coreg 3.125 bid for now. #HLD -resume home statin once transaminitis resolves. #CHF -pt states he may have been told he has chf. -pt looks slightly hypervolemic on exam #DM -low dose sliding scale Code: full Diet: cardiac VTE ppx: lovenox Plan -monitor O2 sats -continue IVF -continue zosyn/Rocephin -f/u CTA pending Discussed with attending Zander Mills 05/23/22 1343: Attestations Physician Attestation Agree w/findings plan: I have independently interviewed and examined this patient on 05/23/22. I have closely reviewed the resident's note. I agree with their assessment/plan. I directly participated in the care of this patient with the resident and carefully reviewed the notes, orders, labs and reports in the hospital EMR system. I have extensively/independently reviewed all lab work (cbc, cmp, rapid covid, hepatitis panel) I have personally/independently reviewed all radiology reports and films myself (CXR, abd ultrasound) I have ordered these pertinent labs/test: strep/legionella Ag, CT angio of lungs , covid PCR Risk of complications and/or Morbidity or Mortality of Patient Management- High risk. pt is septic and hypoxic. there is still concern for covid infection despite negative rapid covid test. will check covid PCR. contunue IV abx. pt needs to be followed closely for resp decompensation. pt has LFT and ultrasound evidence of cirrhosis. he can have an outpt cirrhosis eval. at 2138 at 0752 RPT #:[id number] END OF REPORT [facility] 2022-05-22 21:28:00 [facility] Physical REPORT#:[id number] REPORT STATUS: Signed DATE:05/22/22 TIME: 2127 PATIENT: SEYMOUR DICKERSON UNIT #: [id number] ROOM/BED: [place] [address] : 48 AGE: 71 SEX: M ATTEND: Kamar Gale MD ADM AUTHOR: Anand Gonzalez DO R3 * ALL edits or amendments must be made on the electronic/computer document * Anand Gonzalez 05/22/222127: History of Present Illness HPI PCP: PCP: Seth Lin MD HPI: Pt is a a 71 y/o male pmhx of HTN, DM, HLD here with complaints of sob, congestion, productive, cough, generalized malaise, abd pain, myalgias and fever. [place] here. His symptoms started approximated 2 days ago and have worsened prompting him to come here. His daughter took his tempearature yesterday and said it was high which also prompted him to seek care. Pt also reports nausea and vomiting today x 4 bilious material as well as dairrhhea x 4. Pt is vaccinated x3 for covid but had no flu shot. Pt also reports bilateral lower extremity edema and states that he may have been told he has congestive heart failure in the past. Pt denies orthopnea. Pt reports sob, productive cough, fever, generalized weakness, disoriented, abd pain, n/v/d. Pt denies melena, hematochezia, hematemesis, numbness, tingling, focal weakness, sick contacts. In the ED pt was sating 86 on RA, tachycardic at 108. Labs significan for hypokalemia of 3.3 and lacitc of 2.3, troponin of 0.047, TBIL of 2.7, unconj maude of 1.8, AST of 88, ALT of 55, ALKP 130. CXR showed multifocal pna and trace bilateral pleural effusions. Pt was given rocpehin, azitrhomycin and 1 L fluids. pcp: Seth Lin hx: no etoh, smoking or illicit drugs surgeries: cholecystectomy 2 year ago. fam hx: none allergies none medications: losartan 50 daily, lipitor 40 daily, coreg 3.125 bid, metformin 1000 bid, glipizide 5 daily. History Past medical history: Reports: Congestive heart failure, Diabetes mellitus, Hypertension, Dyslipidemia. Past surgical history: Reports: Cholecystectomy. Additional family history: none Alcohol use: Denies EtOH use Drug use: Denies recreational drugs Smoking status for patients 13 years old or older: Never Smoker Medication/Allergy-Vaccine Hx Medications: Current Hospital Medications: Anti-Infective Agents Sig/Mary Start time Last Medication Dose Route Stop Time Status Admin Azithromycin 500 MG X1ED STA 05/22 1720 DC 05/22 (ZITHROMAX) IV 05/22 1819 181 Sodium Chloride 250 ML (SODIUM CHLORIDE 0.9%) Ceftriaxone Sodium 1,000 MG X1ED STA 05/22 172 DC 05/22 (ROCEPHIN) IV 05/22 172 1816 Sodium Chloride 10 ML (NACL 0.9%) Electrolytic, Caloric, And Eli Sig/Mary Start time Last Medication Dose Route Stop Time Status Admin Sodium Chloride 10 ML ASDIR PRN 05/22 2100 AC (NACL 0.9%) IV 05/23 0251 Sodium Chloride 250 ML ASDIR PRN 05/22 2100 AC (SODIUM CHLORIDE IV 05/23 0251 0.9%) Lactated Ringer's 1,000 ML X1ED STA 05/22 172 DC 05/22 (LACTATED RINGERS) IV 05/22 1820 1816 Gastrointestinal Drugs Sig/Mary Start time Last Medication Dose Route Stop Time Status Admin Ondansetron HCl 4 MG Q4H PRN PRN 05/22 205 AC (ZOFRAN 4 MG/2 ML IV 05/23 0251 INJ) Other Sig/Mary Start time Last Medication Dose Route Stop Time Status Admin Sodium Chloride 5 ML ASDIR PRN 05/22 2099 AC (SODIUM CHLORIDE IV 05/23 250 FLUSH) Sodium Chloride 5 ML Q12HR 05/22 2099 AC (SODIUM CHLORIDE IV 05/23 250 FLUSH) Allergies: Coded Allergies: No Known Allergies (05/22/22) Review of Systems Free Text ROS Notes Free Text ROS Notes: 12 point ROS reviewed and negative except as marked. Objective General VS/I O: Vital Signs: Date Time Temp Pulse Resp B/P B/P Pulse O2 O2 Flow FiO2 Mean Ox Delivery Rate 05/22 1731 37.1 108 18 133/85 100.7 86 Room air 05/22 173 37.1 108 18 133/85 100.7 86 Room air PATIENT WEIGHT: Weight (lb): Weight (oz): Weight (kg): 135.000 Medications: Active Meds + DC'd Last 24 Hrs Sodium Chloride (SODIUM CHLORIDE FLUSH) 5 ML ASDIR PRN IV Sodium Chloride (SODIUM CHLORIDE FLUSH) 5 ML Q12HR IV Sodium Chloride (NACL 0.9%) 10 ML ASDIR PRN IV Sodium Chloride (SODIUM CHLORIDE 0.9%) 250 ML ASDIR PRN IV Ondansetron HCl (ZOFRAN 4 MG/2 ML INJ) 4 MG Q4H PRN PRN IV Azithromycin (ZITHROMAX) 500 MG X1ED STA IV (DC) Sodium Chloride (SODIUM CHLORIDE 0.9%) 250 ML Ceftriaxone Sodium (ROCEPHIN) 1,000 MG X1ED STA IV (DC) Sodium Chloride (NACL 0.9%) 10 ML Lactated Ringer's (LACTATED RINGERS) 1,000 ML X1ED STA IV (DC) Physical Exam General appearance: alert, awake, oriented Cardiovascular: normal heart sounds, regular rate rhythm, no murmur Respiratory: aerating well, clear to auscultation Abdomen: non-tender, soft, no distention Extremities: moves all, bilateral 1+ pitting edema Neuro/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: alert, CNII-XII intact, normal speech Skin: dry, intact Psychiatry: normal affect, normal judgment/insight, normal mood Results Findings/Data: Laboratory Tests 05/22 05/22 05/22 1916 1809 1809 Chemistry Sodium (137 - 145 mmol/L) 135 L Potassium (3.4 - 5.0 mmol/L) 3.3 L Chloride (98 - 107 mmol/L) 102 Carbon Dioxide (22 - 30 mmol/L) 25 Anion Gap 12 BUN (9 - 20 mg/dL) 21 H Creatinine (0.7 - 1.3 mg/dL) 0.6 L Glomerular Filtr Rate (mL/min) 102 Glucose (74 - 106 mg/dL) 149 H Lactic Acid (0.7 - 2.0 mmol/L) 2.3 *H Calcium (8.4 - 10.2 mg/dL) 8.9 Total Bilirubin (0.2 - 1.3 mg/dL) 2.7 H Conjugated Bilirubin (0 - 0.3 mg/dL) 0 Unconjugated Bilirubin (0 - 1.1 mg/dL) 1.8 H AST (15 - 46 U/L) 88 H ALT (0 - 49 U/L) 55 H Total Alk Phosphatase (38 - 126 U/L) 130 H CK-MB (CK-2) (0.5 - 5.0 ng/mL) 0.99 Troponin I (0.012 - 0.033 ng/mL) 0.047 H Total Protein (6.3 - 8.2 g/dL) 7.6 Albumin (3.5 - 5.0 g/dL) 4.0 Specimen Hemolysis (0 - 100 Index/DL) < 15 Laboratory Tests 05/22 1809 Hematology WBC (5.0 - 12.0 x10 3/uL) 10.2 RBC (4.70 - 6.10 x10 6/uL) 4.86 Hgb (14.0 - 18.0 g/dL) 15.1 Hct (37.0 - 49.0 %) 43.8 MCV (80 - 94 fL) 90 MCH (27 - 31 pg) 31.1 H MCHC (33 - 37 g/dL) 34.5 RDW (11.5 - 15.5 %) 14.2 Plt Count (130 - 400 x10 3/uL) 169 MPV (9.4 - 16.4 fL) 9.5 Neut % (Auto) (43 - 65 %) 78.1 H Lymph % (Auto) (20.5 - 45.5 %) 14.7 L [place] % (Auto) (5.5 - 11.7 %) 5.7 Eos % (Auto) (0.9 - 2.9 %) 0.1 L Baso % (Auto) (0.2 - 1.0 %) 0.8 Neut # (Auto) (2.2 - 4.8 x10 3/uL) 7.95 H Lymph # (Auto) (1.3 - 2.9 x10 3/uL) 1.50 [place] # (Auto) (0.3 - 0.8 x10 3/uL) 0.58 Eos # (Auto) (0.0 - 0.2 x10 3/uL) 0.01 Baso # (Auto) (0.0 - 0.1 x10 3/uL) 0.08 Immature Gran % (0.0 - 2.0 %) 0.6 Nucleated RBC % (0 - 1.0 %) 0.0 Radiology data: Recent Impressions: RADIOLOGY - XR CHEST 1 V 05/22 1732 Report Impression - Status: SIGNED Entered: 05/22/2022 3685 IMPRESSION: Findings likely reflecting a combination of multifocal pneumonia and trace bilateral pleural effusions Impression By: Shawna Denney MD Results: labs reviewed, vital signs reviewed, x-ray personally reviewed, current med profile rev'd Diagnosis, Assessment Plan Free Text DxA P Notes Free Text DxA P Notes: Pt is a a 71 y/o male pmhx of HTN, DM, HLD here with complaints of sob, congestion, productive, cough, generalized malaise, abd pain, myalgias and fever. [place] here. #severe sepsis #acute hypoxic respiratory failure #multifocal pna #productive cough -reports 2 days of fever, cough, weakness, disorientation, generalized malaise -HR 108, sating 86 on RA upon arrival. -lactic acid 2.3 -ED gave rocephin, azithro and 1 L fluids -cxr shows multifocal pna with small bialteral pleural effusions. -CTA ordered -ABG -zosyn, azithromycin -sputum culture, checking flu, covid -albumin for second line resuscitation #Abd pain #n/v #hyperbilirubinemia #transaminitis -mild TTP of epigastic region -abd us ordered -hepatitis pannel -hold home med lipitor for now -zofran prn -iv pepcid #troponinemia -0.047 -EKG ordered. continue to trend. -telemetry -denies chest pain. possibly demand from tachycardia. #hypokalemia -3.3. -repleting. #HTN -bp controlled for now. -hold losartan 50 daily and coreg 3.125 bid for now. #HLD -resume home statin once transaminitis resolves. #CHF -pt states he may have been told he has chf. -pt looks slightly hypervolemic on exam #DM -low dose sliding scale Code: full Diet: cardiac VTE ppx: lovenox Dw attending Kamar Martinez 05/23/22 0438: Attestations Teaching Physician Attestation 1st visit w/o resident: I performed a history and physical examination of the patient and discussed with the resident. I have reviewed the resident's note and agree with the findings and plan as documented in the resident's note. at 0225 at 0439 RPT #:[id number] END OF REPORT [facility] 2022-05-22 20:53:00 ([facility]) EMERGENCY PROVIDER REPORT REPORT#:[id number] REPORT STATUS: Signed DATE:05/22/22 TIME: 2052 PATIENT: SEYMOUR DICKERSON UNIT #: [id number] [address] AGE: 71 SEX: M PCP PHYS: Seth Lin MD SERVICE AUTHOR: Maurice Pruitt DO * ALL edits or amendments must be made on the electronic/computer document * HPI-General Illness Free Text HPI Notes Free Text HPI Notes 71-year-old male brought in by son for complaints of nausea, vomiting, fever, diarrhea. Son states that symptoms started about 2 days ago. Patient also had confusion and hearing a past medical history of hypertension, diabetes. No known allergies. General Initial Greet Date/Time 05/22/22 1720 Presentation Chief Complaint Vomiting Sudden in Onset? Yes Review of Systems ROS Statements All systems rev neg except as marked. Past Medical History - Adult Stated Complaint FLU LIKE SYMPTOMS Allergies Coded Allergies: No Known Allergies (05/22/22) Home Medications Reported Medications LOSARTAN (COZAAR) 50 MG PO DAILY 30 Days #30 ATORVASTATIN (LIPITOR) 40 MG PO DAILY 30 Days #30 CARVEDILOL (COREG) metFORMIN (GLUCOPHAGE) 1,000 MG PO BID 30 Days #60 glipiZIDE (GLUCOTROL) 5 MG PO DAILY 30 Days #30 LOSARTAN (COZAAR) 50 MG PO DAILY ATORVASTATIN (LIPITOR) 40 MG PO DAILY CARVEDILOL (COREG) 3.125 MG PO BID metFORMIN (GLUCOPHAGE) 1,000 MG PO BID glipiZIDE (GLUCOTROL) 5 MG PO DAILY Smoking status for patients 13 years old or older: Unknown,if ever smoked Physical Exam Vital Signs Vital Signs First Documented: Result Date Time Pulse Ox 86 05/22 1731 B/P 133/85 05/22 1731 B/P Mean 100.7 05/22 1731 O2 Delivery Room air 05/22 173 Temp 98.8 05/22 173 Pulse 108 05/22 1731 Resp 18 05/22 173 Last Documented: Result Date Time Pulse Ox 86 05/22 1731 B/P 133/85 05/22 1731 B/P Mean 100.7 05/22 1731 O2 Delivery Room air 05/22 173 Temp 98.8 05/22 173 Pulse 108 05/22 1731 Resp 18 05/22 1731 Review of Vital Signs Reviewed Basic Physical Exam Basic PE GEN: Well appearing/NAD, HEAD: Atraumatic/NC, EYES: PERRL, conj clear, ENT: Membranes moist, NECK: Supple, RESP: No resp distress, CV: Reg rate rhythm, ABD: Soft/non-tender, EXT: No gross abnormality, SKIN: No rashes, warm/ dry, NEURO: alert oriented, NEURO: gross movement NL, PSYCH: NL thought content Interpretation Diagnostics Lab Results Interpretation Results Laboratory Tests 05/22/22 1809: [Embedded Image Not Available] Laboratory Tests: 05/22 05/22 05/22 191 1809 1809 Chemistry Sodium (137 - 145 mmol/L) 135 L Potassium (3.4 - 5.0 mmol/L) 3.3 L Chloride (98 - 107 mmol/L) 102 Carbon Dioxide (22 - 30 mmol/L) 25 Anion Gap 12 BUN (9 - 20 mg/dL) 21 H Creatinine (0.7 - 1.3 mg/dL) 0.6 L Glomerular Filtr Rate (mL/min) 102 Glucose (74 - 106 mg/dL) 149 H Lactic Acid (0.7 - 2.0 mmol/L) 2.3 *H Calcium (8.4 - 10.2 mg/dL) 8.9 Total Bilirubin (0.2 - 1.3 mg/dL) 2.7 H Conjugated Bilirubin (0 - 0.3 mg/dL) 0 Unconjugated Bilirubin (0 - 1.1 mg/dL) 1.8 H AST (15 - 46 U/L) 88 H ALT (0 - 49 U/L) 55 H Total Alk Phosphatase (38 - 126 U/L) 130 H CK-MB (CK-2) (0.5 - 5.0 ng/mL) 0.99 Troponin I (0.012 - 0.033 ng/mL) 0.047 H Total Protein (6.3 - 8.2 g/dL) 7.6 Albumin (3.5 - 5.0 g/dL) 4.0 Specimen Hemolysis (0 - 100 Index/DL) < 15 Hematology WBC (5.0 - 12.0 x10 3/uL) 10.2 RBC (4.70 - 6.10 x10 6/uL) 4.86 Hgb (14.0 - 18.0 g/dL) 15.1 Hct (37.0 - 49.0 %) 43.8 MCV (80 - 94 fL) 90 MCH (27 - 31 pg) 31.1 H MCHC (33 - 37 g/dL) 34.5 RDW (11.5 - 15.5 %) 14.2 Plt Count (130 - 400 x10 3/uL) 169 MPV (9.4 - 16.4 fL) 9.5 Neut % (Auto) (43 - 65 %) 78.1 H Lymph % (Auto) (20.5 - 45.5 %) 14.7 L [place] % (Auto) (5.5 - 11.7 %) 5.7 Eos % (Auto) (0.9 - 2.9 %) 0.1 L Baso % (Auto) (0.2 - 1.0 %) 0.8 Neut # (Auto) (2.2 - 4.8 x10 3/uL) 7.95 H Lymph # (Auto) (1.3 - 2.9 x10 3/uL) 1.50 [place] # (Auto) (0.3 - 0.8 x10 3/uL) 0.58 Eos # (Auto) (0.0 - 0.2 x10 3/uL) 0.01 Baso # (Auto) (0.0 - 0.1 x10 3/uL) 0.08 Immature Gran % (0.0 - 2.0 %) 0.6 Nucleated RBC % (0 - 1.0 %) 0.0 Microbiology: Date/Time Procedure - Status Source Growth 05/22 180 Blood Culture - COMP BLOOD 05/22 1808 Blood Culture - COMP BLOOD 05/22 172 Influenza Virus Type B Antigen - CAN NASAL Cancelled: Auto-cancelled after 3 days. 05/22 1722 Influenza Virus Type A Antigen - CAN NASAL Cancelled: Auto-cancelled after 3 days. Recent Impressions: RADIOLOGY - XR CHEST 1 V 05/22 1732 Report Impression - Status: SIGNED Entered: 05/22/2022 1746 IMPRESSION: Findings likely reflecting a combination of multifocal pneumonia and trace bilateral pleural effusions Impression By: Shawna Denney MD Re-Evaluation MDM Free Text MDM Notes Free Text MDM Notes Patient seen and examined came to the emergency department due to shortness of breath for the past couple of days. Also some nausea vomiting diarrhea. Concern for infectious process due to shortness of breath. On arrival patient was 97 oxygen. Sepsis work-up initiated. Patient given antibiotics. Sepsis lab obtained. Evidence of multifocal pneumonia. Due to patient's abdominal complaints abdominal labs were obtained. There is evidence of increased bilirubin. Subsequent ultrasound obtained. Concern for intra-abdominal pathology. Influenza and COVID will also be obtained. Plan is to admit patient for severe sepsis.spoke to hospitalist agree with assessment and management. Rule out severe sepsis. ED Course Medication(s) Ordered Medication(s) Ordered: Anti-Infective Agents Sig/Mary Start time Last Medication Dose Route Stop Time Status Admin Azithromycin 500 MG X1ED STA 05/22 172 DC 05/22 Sodium Chloride 250 ML IV 05/22 1820 1816 Ceftriaxone Sodium 1,000 MG X1ED STA 05/22 172 DC 05/22 Sodium Chloride 10 ML IV 05/22 172 1816 Electrolytic, Caloric, And Eli Sig/Mary Start time Last Medication Dose Route Stop Time Status Admin Sodium Chloride 10 ML ASDIR PRN 05/22 2099 UNV IV 05/23 0251 Sodium Chloride 250 ML ASDIR PRN 05/22 2099 UNV IV 05/23 025 Lactated Ringer's 1,000 ML X1ED STA 05/22 1721 DC 05/22 IV 05/22 1820 1816 Gastrointestinal Drugs Sig/Mary Start time Last Medication Dose Route Stop Time Status Admin Ondansetron HCl 4 MG Q4H PRN PRN 05/22 2051 UNV IV 05/23 0251 Other Sig/Mary Start time Last Medication Dose Route Stop Time Status Admin Sodium Chloride 5 ML ASDIR PRN 05/22 2099 UNV IV 05/23 250 Sodium Chloride 5 ML Q12HR 05/22 2099 UNV IV 05/23 025 Patient Discharge Departure Vital Signs/Condition Vital Signs First Documented: Result Date Time Pulse Ox 86 05/22 1731 B/P 133/85 05/22 1731 B/P Mean 100.7 05/22 1731 O2 Delivery Room air 05/22 1731 Temp 98.8 05/22 1731 Pulse 108 05/22 1731 Resp 18 05/22 1731 Last Documented: Result Date Time Pulse Ox 86 05/22 1731 B/P 133/85 05/22 1731 B/P Mean 100.7 05/22 1731 O2 Delivery Room air 05/22 1731 Temp 98.8 05/22 1731 Pulse 108 05/22 1731 Resp 18 05/22 1731 All vital signs available at the time of this entry have been reviewed. Clinical Impression Clinical Impression Primary Impression: Severe sepsis Disposition Decision Admit Admit Physician Name Kamar Gale MD Admit Physician Hospitalist Request Time 2052 Request Date 05/22/22 )( Admission Accepts Yes )( Accepted Time 2052 )( Accepted Date 05/22/22 Discharge/Care Plan (Auto) Prescriptions Current Visit Scripts CEFDINIR (OMNICEF) 300 MG PO Q12H 7 Days #14 CAPS AZITHROMYCIN (ZITHROMAX) 500 MG PO DAILY 5 Days #5 TABS CEFDINIR (OMNICEF) 300 MG PO Q12HR 7 Days #14 CAP Admit Note I have spoken with the patient and/or caregivers. I have explained the patient's condition, diagnoses and treatment plan based on the information available to me at this time. I have answered the patient's and/or caregiver's questions and addressed any concerns. The patient and/or caregivers have as good an understanding of the patient's diagnosis, condition and treatment plan as can be expected at this point. The patient has been stabilized within the capability of the emergency department. The patient will be transported for further care and management or will be moved to an observation or inpatient service. I have communicated with the staff or medical practitioner taking over this patient's care. Critical Care Time Spent (minutes): 35 Services Performed Patient management by me, Time spent at bedside, Reviewing test results, Reviewing imaging, Discussing patient care, Documentation in record Separately billable procedures excluded from time. Patient was critically ill due to: severe sepsis CC Note 1 Total critical care time [35] minutes. Total critical care time documented does not include time spent on separately billed procedures or the services of residents, students, nurses or physician assistants. I personally saw and examined the patient. I have reviewed all diagnostic interpretations and treatment plans as written. I was present for the dobbs portions of any procedures performed and the inclusive time noted in any critical care statement. Critical care time includes patient management by me, time spent at the patients bedside, time to review lab and imaging results, discussing patient care, documentation in the medical record, and time spent with the family or caregiver. CC Note 2 The high probability of sudden, clinically significant deterioration in the patient's condition required the highest level of my preparedness to intervene urgently. The services I provided to this patient were to treat and/or prevent clinically significant deterioration that could result in severe disability or . Services included the following: chart data review, reviewing nursing notes and/ or old charts, documentation time, groundwater consultant collaboration regarding findings and treatment options, medication orders and management, direct patient care, re -evaluations, vital sign assessments and ordering, interpreting and reviewing diagnostic studies/lab tests. Aggregate critical care time was [35] minutes, which includes only time during which I was engaged in work directly related to the patient's care, as described above, whether at the bedside or elsewhere in the Emergency Department. It did not include time spent performing other reported procedures or the services of residents, students, nurses or physician assistants. at 0616 [facility] #:[id number] END OF REPORT [facility]:25:00 [facility] EMERGENCY PROVIDER REPORT REPORT#:[id number] REPORT STATUS: Signed DATE:05/22/22 TIME: 1724 PATIENT: SEYMOUR DICKERSON UNIT #: [id number] ROOM/BED: [address] AGE: 71 SEX: M PCP PHYS: Seth Lin MD SERVICE AUTHOR: Jennie Singleton * ALL edits or amendments must be made on the electronic/computer document * Jennie Singleton 05/22/221724: Provider in Triage - Adult Provider in Triage Initial Greet Date/Time 05/22/221719 Greet Note I have greeted and performed a focused rapid initial assessment of this patient. A comprehensive ED assessment and evaluation of the patient, analysis of all test results, and completion of the medical decision-making process will be conducted by additional ED providers. Free Text PIT Notes Free Text PIT Notes 71-year-old male brought in by son for complaints of nausea, vomiting, fever, diarrhea. Son states that symptoms started about 2 days ago. Patient also had confusion and hearing a past medical history of hypertension, diabetes. No known allergies. PMH-Provider in Triage Stated Complaint FLU LIKE SYMPTOMS Allergies Coded Allergies: No Known Allergies (05/22/22) Smoking status: Smoking status for patients 13 years old or older: Unknown,if ever smoked Jose Waller 05/27/22 0636: PMH-Provider in Triage Home Medications Reported Medications LOSARTAN (COZAAR) 50 MG PO DAILY ATORVASTATIN (LIPITOR) 40 MG PO DAILY CARVEDILOL (COREG) 3.125 MG PO BID metFORMIN (GLUCOPHAGE) 1,000 MG PO BID glipiZIDE (GLUCOTROL) 5 MG PO DAILY at 1727 at 0636 RPT #:[id number] END OF REPORT [facility] 2019-[facility] 13:20:00 [facility]) Rehab Discharge Summary REPORT#:[id number] REPORT STATUS: Signed DATE:10/20/19 TIME: 1320 PATIENT: SEYMOUR SNOW UNIT #: [id number] ROOM/BED: [address] : [birth year] AGE: 69 SEX: M ATTEND: Darrick Benson ADM AUTHOR: Darrick Benson * ALL edits or amendments must be made on the electronic/computer document * Med Rec Med Rec Discharge meds: Stop taking the following medications: LOSARTAN (COZAAR) 50 MG TAB 50 MILLIGRAM ORAL TWICE DAILY. FLUCONAZOLE (DIFLUCAN) 200 MG TAB 200 MILLIGRAM ORAL DAILY. Days = 4 methocarbamoL (ROBAXIN) 500 MG TAB 500 MILLIGRAM ORAL TWICE DAILY. Days = 7 POLYETHYLENE GLYCOL 3350 (MIRALAX) 17 GM POWDER 1 PACKET ORAL DAILY. Days = 30 MEROPENEM (MERREM) 500 MG VIAL 500 MILLIGRAM INTRAVENOUS EVERY 6 HOURS. Qty = 30 Continue taking these medications: ACETAMINOPHEN (TYLENOL) 325 MG TAB 650 MILLIGRAM ORAL EVERY 8 HOURS. as needed for pain Days = 30 BISACODYL EC (DULCOLAX EC) 5 MG TAB.DR 10 MILLIGRAM ORAL DAILY NEEDED. as needed for CONSTIPATION Days = 30 FUROSEMIDE (LASIX) 20 MG TAB 20 MILLIGRAM ORAL EVERY MORNING. Qty = 30 This prescription has been renewed FAMOTIDINE (PEPCID) 20 MG TAB 20 MILLIGRAM ORAL TWICE DAILY. Qty = 60 This prescription has been renewed metFORMIN (GLUCOPHAGE) 500 MG TAB 500 MILLIGRAM ORAL WITH BREAKFAST AND DINNER. Qty = 60 This prescription has been renewed Start taking the following new medications: MEGESTROL (MEGACE) 40 MG TAB 40 MILLIGRAM ORAL DAILY. Qty = 30 No Refills The following medications have been changed: Old: traMADol (ULTRAM) 50 MG TAB 50 MILLIGRAM ORAL EVERY 4 HOURS NEEDED. as needed for Pain Scale 7-10 Days = 30 New: traMADol (ULTRAM) 50 MG TAB 50 MILLIGRAM ORAL EVERY 6 HOURS NEEDED. as needed for PAIN Qty = 28 Objective Physical Exam Psych: alert, normal affect HEENT: mucosal membranes moist, pupils reactive to light, sclera clear Neck: non-tender, supple, no carotid bruit, no JVD Cardiovascular: regular rate rhythm, S1/S2, no murmur Respiratory: aerating well Abdomen: soft, non-tender General Information General Information Problem List/A P: 1. Uncontrolled type 2 diabetes mellitus with hyperglycemia 2. Debility Hospital course: dict #[id number] Allergies: Allergies: No Known Allergies (Coded, 10/26/18) Discharge Instructions Discharge Instructions Discharge to: home with [place] health [facility] [place] Wound/dressing care: WET TO DRY DRESSING KEEP INCISION CLEAN AND DRY Prescriptions: e-prescribe Rx drug database reviewed: yes Discharge management: greater than 30 mins Follow-up Appointments PCP: Follow up timeframe: In 1-2 weeks Special instructions: CALL FOR APPOINTMENT Attending Physician: Attending Physician: Darrick Benson Follow up: In 1-2 weeks Special instructions: CALL FOR APPOINTMENT Consulting provider 1: Provider 1: Jose Harris PA-C Specialty: SURGEN Follow up timeframe: In 1-2 weeks Special instructions: CALL FOR APPOINTMENT Consulting provider 2: Provider 2: Allie Phelps MD Specialty: INFECTIOUS DISEASE, INFECTIOUS Follow up timeframe: In 1-2 weeks Special instructions: CALL FOR APPOINTMENT Consulting provider 3: Provider 3: Dulce Bradford MD Specialty: GENERAL SURGERY Follow up timeframe: In 1-2 weeks Special instructions: CALL FOR APPOINTMENT at 132[address] [facility] #:[id number] END OF REPORT [facility] 2019-10-20 13:20:00 [id number] [facility] [address] [place] [address] PATIENT NAME: SEYMOUR SNOW ADMIT DATE: 10/06/19 ACCOUNT NO: [id number] ROOM NO: [id number] AGE: 69 REPORT TYPE: DISCHARGE SUMMARY SEX: M ADMITTING PHYSICIAN:Darrick Benson ATTENDING PHYSICIAN:Darrick Benson ADMISSION DATE: 10/06/2019 DISCHARGE DATE: 10/20/2019 01:00:00 DISCHARGE DIAGNOSES: Debility following a wound infection with dehiscence. HISTORY: This 69-year-old gentleman was transferred from acute care with the above-mentioned diagnosis. He has made adequate progress and is now being discharged home with his family. On the day of discharge, he was seen in followup by infectious disease and home health orders were issued for an additional 7 days of intravenous antibiotics. ALLERGIES: HE HAS NO KNOWN DRUG ALLERGIES. Due to the ongoing weakness and difficulty getting to therapies, in addition to the above intravenous antibiotics, he will be getting home health including home nursing, physical, and occupational therapy. He was prescribed a Rollator walker. HOSPITAL COURSE: Please see the accompanying EHR for complete details of therapy status at the time of discharge. At the time of his last interim update, he needed set up for toileting. He needed supervision for bathing, lower body dressing, and was independent in all other areas. MEDICATIONS: At the time of discharge included acetaminophen as needed, tramadol 50 mg every 6 hours as needed, furosemide 20 mg a day, Pepcid 20 mg twice a day, Megace 40 mg a day, and metformin 500 mg twice a day. All prescriptions were transmitted electronically and verified prior to discharge. During the rehab stay, he was followed by infectious disease as well as hospitalist and will be following up with infectious disease and his primary care physician after discharge. Dictated By: Darrick Benson MD WT: DS:DINA/DIRK/TATIANNA Conf#: [id number]/DID#: [id number] Authenticated by Balaji Benson MD On 10/20/2019 03:25:13 PM PATIENT NAME: SEYMOUR SNOW at 1525 PATIENT NAME: SEYMOUR SNOW [facility] 2019-10-20 11:58:00 [facility] Infectious Dis. Progress Note REPORT#:[id number] REPORT STATUS: Signed DATE:10/20/19 TIME: 1158 PATIENT: SEYMOUR SNOW UNIT #: [id number] ROOM/BED: [address] : 48 AGE: 69 SEX: M ATTEND: Darrick Benson ADM AUTHOR: Allie Phelps MD * ALL edits or amendments must be made on the electronic/computer document * Subjective Chief Complaint: patient with no issues Objective General VS/I O: Last Documented: Result Date Time Pulse Ox 95 10/19 0629 B/P 135/74 10/19 0629 B/P Mean 94.3 10/19 0629 Temp 97.9 10/19 0629 Pulse 83 10/19 0629 Resp 15 10/19 06 O2 Delivery Room air 10/18 194 O2 Flow Rate 1.603659 10/17 2143 Vital Signs Date Temp Pulse Resp B/P B/P Mean Pulse Ox FiO2 10/18-10/19 97.9-98.1 80-89 15-18 103-135/65-79 77-95.4 93-95 24 hour I O ending at 0700: 10/19 0700 10/18 1900 Intake Total Output Total 100 250 Balance -100 -250 Number Voids 1 5 Output, Urine 100 250 Patient Weight Weight (lb): 235 Weight (oz): 3.73 Weight (kg): 106.700 Physical Exam General appearance: alert, awake, oriented Cardiovascular: normal heart sounds, regular rate rhythm Respiratory: decreased breath sounds at bases Abdomen: non-tender, soft, no distention, RUQ inciosion dehisced site with wound vac + percutan drain Genitourinary: no flank pain Extremities: no edema Skin: no rash Results Findings/Data: Laboratory Tests 10/19 10/19 10/18 10/18 1118 0543 2055 1724 Chemistry POC Glucose (74 - 106 MG/DL) 161 H 112 H 158 H 120 H Radiology data: Recent Impressions: CAT SCAN - CT ABD PELVIS W/CONT 10/18 1657 Report Impression - Status: SIGNED Entered: 10/19/2019 1716 IMPRESSION: 1. Almost complete resolution of the fluid collection/abscess in the gallbladder fossa as detailed above. 2. Persistent bilateral pleural effusions with adjacent atelectatic changes. 3. Simple cyst in the right lobe liver. Impression By: Miller Elliott MD Diagnosis, Assessment Plan Free Text A P: 1. Abscess almost completly resolved on Ct still with some residual inflammatory changes no oral options; will cont merrem x 7 days home iv abx orders written 2. Wound dehiscence s/p wound vac 3. pl effusion follow up Recs cont merrem as outpt x 7 days mid line orders written at 1832 RPT #:[id number] END OF REPORT [facility] 2019-10-20 08:41:00 [facility] Hospitalist Progress Note REPORT#:[id number] REPORT STATUS: Signed DATE:10/20/19 TIME: 840 PATIENT: SEYMOUR SNOW UNIT #: [id number] ROOM/BED: 6622-A : 48 AGE: 69 SEX: M ATTEND: Darrick Benson ADM AUTHOR: Rosa Martinez * ALL edits or amendments must be made on the electronic/computer document * Subjective Chief Complaint: Lying in bed Reports minimal pain at incision site, dressing intact denies shortness of breath or chest pain or any other complaints Objective General VS/I O: Vital Signs: Date Time Temp Pulse Resp B/P B/P Pulse O2 O2 Flow FiO2 Mean Ox Delivery Rate 10/19 628 36.6 83 15 135/74 94.3 95 / 1947 36.7 89 18 129/79 95.4 93 Room air 10/18 1527 94 Room air 10/18 1337 80 18 103/65 77 / 1112 94 105/71 82.7 94 Room air 10/18 1110 79 128/76 93.7 92 Room air 10/18 1106 80 130/83 98.7 92 Room air 24 hour I O ending at 0700: 10/19 0700 10/18 1900 Intake Total Output Total 100 250 Balance -100 -250 Number Voids 1 5 Output, Urine 100 250 Patient Weight Weight (lb): 235 Weight (oz): 3.73 Weight (kg): 106.700 Medications: Active Meds + DC'd Last 24 Hrs Metformin HCl 500 MG C BK DIN PO Diatrizoate Meglum/Diatrizoate Sod 30 ML .STK-MED ONE PO (DC) Iopamidol 100 ML .STK-MED ONE IV (DC) Carbamide Peroxide 5 DROP BID EACH EAR Tramadol HCl 50 MG Q4H PRN PRN PO Megestrol Acetate 40 MG DAILY PO Acetaminophen/Butalbital/Caffeine 1 TAB Q4H PRN PRN PO Meclizine HCl 25 MG Q6H PRN PRN PO Enoxaparin Sodium 40 MG Q24H SUBQ Furosemide 20 MG QAM PO Famotidine 20 MG BID PO Meropenem 500 MG Q6H IV Sterile Water 10 ML Metformin HCl 500 MG C BK DIN PO (DC) Acetaminophen 650 MG Q4H PRN PRN PO Bisacodyl 10 MG DAILY PRN PRN PO Dextrose/Water 25 ML ASDIR PRN IV Glucagon 1 MG ASDIR PRN IM Insulin Human Lispro LOW DOSE SCALE ASDIR SUBQ Lactulose 30 ML DAILY PRN PRN PO (CKD) Magnesium Hydroxide 30 ML DAILY PRN PRN PO Ondansetron Base 4 MG Q4H PRN PRN SL Senna/Docusate Sodium 2 TAB DAILY PRN PRN PO Physical Exam General appearance: alert, awake, oriented, no acute distress Head/Eyes: atraumatic, normocephalic Neck: no JVD Cardiovascular: normal heart sounds, regular rate rhythm, no murmur Respiratory: aerating well, clear to auscultation, no distress Abdomen: dressing on abdomen, c/d/i wound vac was removed Extremities: no cyanosis, no edema Neuro/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: alert, oriented X 3, normal speech Results Findings/Data: Laboratory Tests 10/19 10/18 10/18 10/18 0543 2055 1724 1059 Chemistry POC Glucose (74 - 106 MG/DL) 112 H 158 H 120 H 143 H Radiology data: Recent Impressions: CAT SCAN - CT ABD PELVIS W/CONT 10/18 1657 Report Impression - Status: SIGNED Entered: 10/19/2019 5216 IMPRESSION: 1. Almost complete resolution of the fluid collection/abscess in the gallbladder fossa as detailed above. 2. Persistent bilateral pleural effusions with adjacent atelectatic changes. 3. Simple cyst in the right lobe liver. Impression By: Miller Elliott MD Results: labs reviewed, vital signs stable Diagnosis, Assessment Plan Free Text DxA P Notes Free text DxA P notes: Mr. Jayla Sarah is a 69 year old male with: #Cholecystitis --Wound VAC in place and continues to drain --Continue meropenem IV per infectious disease --Will need repeat CT per infectious disease recommendations , although not ordered -- ID follow up requested -- Repeat CT abdomen - Almost complete resolution of the fluid collection/ abscess in the gallbladder fossa. --surgery consult and wound vac removed 10/19/19 #Elevated LFTs -improved #DMII with hyperglycemia--> A1c 9.5 --continues on metformin + SSI #HTN --blood pressure controlled off medications #HLD: -->LDL 101 --recommend healthy dietary changes #Neck pain--> XR shows osteoarthritis --pain control #Pleural effusion--> possibly inflammatory 2/2 cholecystitis infection #DISPO: discharge planning for today at 0924 RPT #[id number] END OF REPORT [facility] 2019-10-20 08:41:00 [facility] REPORT#:[id number] REPORT STATUS: Signed DATE:10/20/19 TIME: 0841 PATIENT: SEYMOUR SNOW UNIT #: [id number] ROOM/BED: 6622-A : 48 AGE: 69 SEX: M ATTEND: Darrick Benson ADM AUTHOR: Rosa Martinez * ALL edits or amendments must be made on the electronic/computer document * Subjective Chief Complaint: Lying in bed Reports minimal pain at incision site, dressing intact denies shortness of breath or chest pain or any other complaints Objective General VS/I O: Vital Signs: Date Time Temp Pulse Resp B/P B/P Pulse O2 O2 Flow FiO2 Mean Ox Delivery Rate 10/19 0629 36.6 83 15 135/74 94.3 95 10/18 1947 36.7 89 18 129/79 95.4 93 Room air 10/18 1527 94 Room air 10/18 1337 80 18 103/65 77 / 1112 94 105/71 82.7 94 Room air 10/18 1110 79 128/76 93.7 92 Room air 10/18 1106 80 130/83 98.7 92 Room air 24 hour I O ending at 0700: 10/19 0700 10/18 1900 Intake Total Output Total 100 250 Balance -100 -250 Number Voids 1 5 Output, Urine 100 250 Patient Weight Weight (lb): 235 Weight (oz): 3.73 Weight (kg): 106.700 Medications: Active Meds + DC'd Last 24 Hrs Metformin HCl 500 MG C BK DIN PO Diatrizoate Meglum/Diatrizoate Sod 30 ML .STK-MED ONE PO (DC) Iopamidol 100 ML .STK-MED ONE IV (DC) Carbamide Peroxide 5 DROP BID EACH EAR Tramadol HCl 50 MG Q4H PRN PRN PO Megestrol Acetate 40 MG DAILY PO Acetaminophen/Butalbital/Caffeine 1 TAB Q4H PRN PRN PO Meclizine HCl 25 MG Q6H PRN PRN PO Enoxaparin Sodium 40 MG Q24H SUBQ Furosemide 20 MG QAM PO Famotidine 20 MG BID PO Meropenem 500 MG Q6H IV Sterile Water 10 ML Metformin HCl 500 MG C BK DIN PO (DC) Acetaminophen 650 MG Q4H PRN PRN PO Bisacodyl 10 MG DAILY PRN PRN PO Dextrose/Water 25 ML ASDIR PRN IV Glucagon 1 MG ASDIR PRN IM Insulin Human Lispro LOW DOSE SCALE ASDIR SUBQ Lactulose 30 ML DAILY PRN PRN PO (CKD) Magnesium Hydroxide 30 ML DAILY PRN PRN PO Ondansetron Base 4 MG Q4H PRN PRN SL Senna/Docusate Sodium 2 TAB DAILY PRN PRN PO Physical Exam General appearance: alert, awake, oriented, no acute distress Head/Eyes: atraumatic, normocephalic Neck: no JVD Cardiovascular: normal heart sounds, regular rate rhythm, no murmur Respiratory: aerating well, clear to auscultation, no distress Abdomen: dressing on abdomen, c/d/i wound vac was removed Extremities: no cyanosis, no edema Neuro/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: alert, oriented X 3, normal speech Results Findings/Data: Laboratory Tests 10/19 10/18 10/18 10/18 0543 2055 1724 1059 Chemistry POC Glucose (74 - 106 MG/DL) 112 H 158 H 120 H 143 H Radiology data: Recent Impressions: CAT SCAN - CT ABD PELVIS W/CONT 10/18 1657 Report Impression - Status: SIGNED Entered: 10/19/2019 171 IMPRESSION: 1. Almost complete resolution of the fluid collection/abscess in the gallbladder fossa as detailed above. 2. Persistent bilateral pleural effusions with adjacent atelectatic changes. 3. Simple cyst in the right lobe liver. Impression By: Miller Elliott MD Results: labs reviewed, vital signs stable Diagnosis, Assessment Plan Free Text DxA P Notes Free text DxA P notes: Mr. Jayla Sarah is a 69 year old male with: #Cholecystitis --Wound VAC in place and continues to drain --Continue meropenem IV per infectious disease --Will need repeat CT per infectious disease recommendations , although not ordered -- ID follow up requested -- Repeat CT abdomen - Almost complete resolution of the fluid collection/ abscess in the gallbladder fossa. --surgery consult and wound vac removed 10/19/19 #Elevated LFTs -improved #DMII with hyperglycemia--> A1c 9.5 --continues on metformin + SSI #HTN --blood pressure controlled off medications #HLD: -->LDL 101 --recommend healthy dietary changes #Neck pain--> XR shows osteoarthritis --pain control #Pleural effusion--> possibly inflammatory 2/2 cholecystitis infection #DISPO: discharge planning for today at 0924 at 1304 RPT #:[id number] END OF REPORT [facility] 2019-10-19 23:58:00 [facility] Infectious Dis. Progress Note REPORT#:[id number] REPORT STATUS: Signed DATE:10/19/19 TIME: 2357 PATIENT: SEYMOUR SNOW UNIT #: [id number] ROOM/BED: [address] : 48 AGE: 69 SEX: M ATTEND: Darrick Benson AUTHOR: Allie Phelps MD * ALL edits or amendments must be made on the electronic/computer document * Subjective Chief Complaint: seen earlier no sig c/o Objective General VS/I O: Last Documented: Result Date Time Pulse Ox 93 10/18 1946 B/P 129/79 10/18 1946 B/P Mean 95.4 10/18 1946 O2 Delivery Room air 10/18 1946 Temp 98.1 10/18 1946 Pulse 89 10/18 1946 Resp 18 10/18 1946 O2 Flow Rate 1.185293 10/16 214 Vital Signs Date Temp Pulse Resp B/P B/P Mean Pulse Ox FiO2 10/18 98.1 79-94 18-19 103-130/65-83 77-98.7 92-94 24 hour I O ending at 0700: 10/18 0700 10/17 1900 Intake Total Output Total Balance Number 1 Bowel Movements Number Voids 4 Patient 106.7 kg Weight Weight Bed scale Measurement Method Patient Weight Weight (lb): 235 Weight (oz): 3.73 Weight (kg): 106.700 Physical Exam Cardiovascular: normal heart sounds, regular rate rhythm Respiratory: decreased breath sounds at bases Abdomen: non-tender, soft, no distention, RUQ inciosion dehisced site with wound vac + percutan drain Genitourinary: no flank pain Extremities: no edema Skin: no rash Results Findings/Data: Laboratory Tests 10/18 10/18 10/18 10/18 2055 1724 1059 0529 Chemistry POC Glucose (74 - 106 MG/DL) 158 H 120 H 143 H 114 H Radiology data: Recent Impressions: CAT SCAN - CT ABD PELVIS W/CONT 10/18 1657 Report Impression - Status: SIGNED Entered: 10/19/2019 1716 IMPRESSION: 1. Almost complete resolution of the fluid collection/abscess in the gallbladder fossa as detailed above. 2. Persistent bilateral pleural effusions with adjacent atelectatic changes. 3. Simple cyst in the right lobe liver. Impression By: WesVRMiller Ricketts MD Diagnosis, Assessment Plan Free Text A P: 1. Abscess on merrem get repeat Ct 2. Wound dehiscence s/p wound vac 3. Pl effusion follow up Recs f/u Ct abd further plan after above at 1832 RPT #:[id number] END OF REPORT [facility] 2019-10-19 19:05:00 [facility] REPORT#:[id number] REPORT STATUS: Signed DATE:10/19/19 TIME: 1904 PATIENT: SEYMOUR SNOW UNIT #: [id number] ROOM/BED: [address] : 48 AGE: 69 SEX: M ATTEND: Darrick Benson ADM AUTHOR: Rosa Martinez * ALL edits or amendments must be made on the electronic/computer document * Review of Systems All systems rev neg: except as marked (see HPI, PMH) Objective General VS/I O: Vital Signs: Date Time Temp Pulse Resp B/P B/P Pulse O2 O2 Flow FiO2 Mean Ox Delivery Rate 10/18 1527 94 Room air 10/18 1337 80 18 103/65 77 10/18 1112 94 105/71 82.7 94 Room air 10/18 1110 79 128/76 93.7 92 Room air 10/18 1106 80 130/83 98.7 92 Room air 10/18 0717 36.7 83 19 122/73 89.4 92 Room air 10/17 2019 36.5 85 18 131/77 94.6 92 Room air 24 hour I O ending at 0700: 10/18 0700 10/17 1900 Intake Total Output Total Balance Number 1 Bowel Movements Number Voids 4 Patient 106.7 kg Weight Weight Bed scale Measurement Method Patient Weight Weight (lb): 235 Weight (oz): 3.73 Weight (kg): 106.700 Medications: Active Meds + DC'd Last 24 Hrs Metformin HCl 500 MG C BK DIN PO Diatrizoate Meglum/Diatrizoate Sod 30 ML .STK-MED ONE PO (DC) Iopamidol 100 ML .STK-MED ONE IV (DC) Carbamide Peroxide 5 DROP BID EACH EAR Tramadol HCl 50 MG Q4H PRN PRN PO Megestrol Acetate 40 MG DAILY PO Acetaminophen/Butalbital/Caffeine 1 TAB Q4H PRN PRN PO Meclizine HCl 25 MG Q6H PRN PRN PO Enoxaparin Sodium 40 MG Q24H SUBQ Furosemide 20 MG QAM PO Famotidine 20 MG BID PO Meropenem 500 MG Q6H IV Sterile Water 10 ML Metformin HCl 500 MG C BK DIN PO (DC) Acetaminophen 650 MG Q4H PRN PRN PO Bisacodyl 10 MG DAILY PRN PRN PO Dextrose/Water 25 ML ASDIR PRN IV Glucagon 1 MG ASDIR PRN IM Insulin Human Lispro LOW DOSE SCALE ASDIR SUBQ Lactulose 30 ML DAILY PRN PRN PO (CKD) Magnesium Hydroxide 30 ML DAILY PRN PRN PO Ondansetron Base 4 MG Q4H PRN PRN SL Senna/Docusate Sodium 2 TAB DAILY PRN PRN PO Physical Exam General appearance: alert, awake, oriented Head/Eyes: atraumatic, normocephalic Neck: no JVD Cardiovascular: normal heart sounds, regular rate rhythm, no murmur Respiratory: aerating well, clear to auscultation, no distress Abdomen: dressing on abdomen, c/d/i wound vac was removed Extremities: no cyanosis, no edema Neuro/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: alert, oriented X 3, normal speech Results Findings/Data: Laboratory Tests 10/18 10/18 10/18 10/17 1724 1059 0529 2047 Chemistry POC Glucose (74 - 106 MG/DL) 120 H 143 H 114 H 155 H Radiology data: Recent Impressions: CAT SCAN - CT ABD PELVIS W/CONT 10/18 1657 Report Impression - Status: SIGNED Entered: 10/19/2019 5136 IMPRESSION: 1. Almost complete resolution of the fluid collection/abscess in the gallbladder fossa as detailed above. 2. Persistent bilateral pleural effusions with adjacent atelectatic changes. 3. Simple cyst in the right lobe liver. Impression By: Baylee - Miller Ayala MD Diagnosis, Assessment Plan Free Text DxA P Notes Free text DxA P notes: Mr. Jayla Sarah is a 69 year old male with: #Cholecystitis --Wound VAC in place and continues to drain --Continue meropenem IV per infectious disease --Will need repeat CT per infectious disease recommendations , although not ordered -- ID follow up requested -- Repeat CT abdomen - Almost complete resolution of the fluid collection/ abscess in the gallbladder fossa as detailed above. --surgery consult and wound vac removed #Elevated LFTs -improved #DMII with hyperglycemia--> A1c 9.5 --continues on metformin + SSI #HTN --blood pressure controlled off medications #HLD: -->LDL 101 --recommend healthy dietary changes #Neck pain--> XR shows osteoarthritis --pain control #Pleural effusion--> possibly inflammatory 2/2 cholecystitis infection #DISPO: wound vac removed by surgery plan for discharge tomorrow at 1908 RPT #:[id number] END OF REPORT [facility] 2019-10-19 19:05:00 [facility] Hospitalist Progress Note REPORT#:[id number] REPORT STATUS: Signed DATE:10/19/19 TIME: 190 PATIENT: MYA SNOWNCIO UNIT #: [id number] ROOM/BED: [address] : 48 AGE: 69 SEX: M ATTEND: Darrick Benson ADM AUTHOR: Rosa Martinez * ALL edits or amendments must be made on the electronic/computer document * Review of Systems All systems rev neg: except as marked (see HPI, PMH) Objective General VS/I O: Vital Signs: Date Time Temp Pulse Resp B/P B/P Pulse O2 O2 Flow FiO2 Mean Ox Delivery Rate 10/18 1527 94 Room air 10/18 1337 80 18 103/65 77 10/18 1112 94 105/71 82.7 94 Room air 10/18 1110 79 128/76 93.7 92 Room air 10/18 1106 80 130/83 98.7 92 Room air 10/18 0717 36.7 83 19 122/73 89.4 92 Room air 10/17 2019 36.5 85 18 131/77 94.6 92 Room air 24 hour I O ending at 0700: 10/18 0700 10/17 1900 Intake Total Output Total Balance Number 1 Bowel Movements Number Voids 4 Patient 106.7 kg Weight Weight Bed scale Measurement Method Patient Weight Weight (lb): 235 Weight (oz): 3.73 Weight (kg): 106.700 Medications: Active Meds + DC'd Last 24 Hrs Metformin HCl 500 MG C BK DIN PO Diatrizoate Meglum/Diatrizoate Sod 30 ML .STK-MED ONE PO (DC) Iopamidol 100 ML .STK-MED ONE IV (DC) Carbamide Peroxide 5 DROP BID EACH EAR Tramadol HCl 50 MG Q4H PRN PRN PO Megestrol Acetate 40 MG DAILY PO Acetaminophen/Butalbital/Caffeine 1 TAB Q4H PRN PRN PO Meclizine HCl 25 MG Q6H PRN PRN PO Enoxaparin Sodium 40 MG Q24H SUBQ Furosemide 20 MG QAM PO Famotidine 20 MG BID PO Meropenem 500 MG Q6H IV Sterile Water 10 ML Metformin HCl 500 MG C BK DIN PO (DC) Acetaminophen 650 MG Q4H PRN PRN PO Bisacodyl 10 MG DAILY PRN PRN PO Dextrose/Water 25 ML ASDIR PRN IV Glucagon 1 MG ASDIR PRN IM Insulin Human Lispro LOW DOSE SCALE ASDIR SUBQ Lactulose 30 ML DAILY PRN PRN PO (CKD) Magnesium Hydroxide 30 ML DAILY PRN PRN PO Ondansetron Base 4 MG Q4H PRN PRN SL Senna/Docusate Sodium 2 TAB DAILY PRN PRN PO Physical Exam General appearance: alert, awake, oriented Head/Eyes: atraumatic, normocephalic Neck: no JVD Cardiovascular: normal heart sounds, regular rate rhythm, no murmur Respiratory: aerating well, clear to auscultation, no distress Abdomen: dressing on abdomen, c/d/i wound vac was removed Extremities: no cyanosis, no edema Neuro/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: alert, oriented X 3, normal speech Results Findings/Data: Laboratory Tests 10/18 10/18 10/18 10/17 1724 1059 0529 2047 Chemistry POC Glucose (74 - 106 MG/DL) 120 H 143 H 114 H 155 H Radiology data: Recent Impressions: CAT SCAN - CT ABD PELVIS W/CONT 10/18 1657 Report Impression - Status: SIGNED Entered: 10/19/2019 2341 IMPRESSION: 1. Almost complete resolution of the fluid collection/abscess in the gallbladder fossa as detailed above. 2. Persistent bilateral pleural effusions with adjacent atelectatic changes. 3. Simple cyst in the right lobe liver. Impression By: Miller Elliott MD Diagnosis, Assessment Plan Free Text DxA P Notes Free text DxA P notes: Mr. Jayla Sarah is a 69 year old male with: #Cholecystitis --Wound VAC in place and continues to drain --Continue meropenem IV per infectious disease --Will need repeat CT per infectious disease recommendations , although not ordered -- ID follow up requested -- Repeat CT abdomen - Almost complete resolution of the fluid collection/ abscess in the gallbladder fossa as detailed above. --surgery consult and wound vac removed #Elevated LFTs -improved #DMII with hyperglycemia--> A1c 9.5 --continues on metformin + SSI #HTN --blood pressure controlled off medications #HLD: -->LDL 101 --recommend healthy dietary changes #Neck pain--> XR shows osteoarthritis --pain control #Pleural effusion--> possibly inflammatory 2/2 cholecystitis infection #DISPO: wound vac removed by surgery plan for discharge tomorrow at 1908 at 1304 RPT #:[id number] END OF REPORT [facility] 2019-10-19 09:15:00 ([facility] Rehab Team Conference REPORT#:[id number] REPORT STATUS: Signed DATE:10/19/19 TIME: 914 PATIENT: SEYMOUR SNOW UNIT #: [id number] ROOM/BED: [address] : 48 AGE: 69 SEX: M ATTEND: Darrick Benson ADM AUTHOR: Darrick Benson * ALL edits or amendments must be made on the electronic/computer document * Rehabilitation Team Conference Weekly Team Conference Team conf information: Date of conference: 10/19/19 Conference type: Interim Conference scribe: Yady Bryant OT Interdisciplinary Team Meeting Participants: Title Name MD Darrick Benson MD RN Nicol Mike, RN PT Avani Santiago, PT OT Eliza Garza OT CM/FLYNN Paniagua RN ST Staff Taylor Morgan, OT Attendee Name Credentials 1 MATTEO BYERS RN 2 CONSTANTINO SHIELDS RN 3 4 5 6 7 Type Admission total Interim total Change Self care 21 37 16 Transfer 20 42 22 Mobility 14 48 34 Wheelchair distance: Mobility description: Bowel continence admission rating: Always continent Bladder continence admission rating: Always continent Bowel and bladder team conference update: CONTINENT WITH BOWEL AND BLADDER JULIAN team conference update: ABDOMINAL INCISION WITH WOUND VAC. HAS LESS THAN 75CC QOD OUTPUT. PAIN CONTROLLED. VSS. PT HAS REGULAR BOWEL MOVEMENTS AND NO BLADDER ISSUES. PT team conference update: >Patient has progressed to independence w/ Rollator in PT, including GT w/ wound vac secured to it >For safe DC home, home health initially then to out-patient if w/ transportation, rollator gait OT team conference update: Pt requires ocassional cues during transfers in the bathroom and would benefit from continued OT to maximize safety during ADL. No family training occurred. ST team conference update: NO SKIVER HAND WARRANTED CM or SW team conference update: Lives alone. Son lives at home but is away working. Pt reports will live with other son in a trailer and 5 steps Other discipline update 1: Other discipline update 2: Other discipline update 3: Patient's identified discharge goal: RN: I want to get stronger as fast as I can so I can go home. OT: "I want to be independent for myself." PT: "Be able to walk, go home, be pain-free, work again if I can" Team Goal Week 1: BRP with RW with all staff Week 2: Safe DC home. Eating discharge goal: Independent (6) Shower/bathe self discharge goal: Independent (6) Upper body dressing discharge goal: Independent (6) Lower body dressing discharge goal: Independent (6) Chair/bed to chair transfer discharge goal: Independent (6) Transfer on/off toilet or commode discharge goal: Setup/clean-up only (5) Walking 50 feet with two turns discharge goal: Independent (6) Walking 150 feet discharge goal: Independent (6) Four steps discharge goal: Independent (6) Twelve steps discharge goal: Independent (6) Pauline 150 feet discharge goal: Independent (6) Eating discharge goal: Independent (6) Shower/bathe self discharge goal: Independent (6) Upper body dressing discharge goal: Independent (6) Lower body dressing discharge goal: Independent (6) Chair/bed to chair transfer discharge goal: Independent (6) Transfer on/off toilet or commode discharge goal: Setup/clean-up only (5) Walking 50 feet with two turns discharge goal: Independent (6) Walking 150 feet discharge goal: Independent (6) 4 steps discharge goal: Independent (6) 12 steps discharge goal: Independent (6) Pauline 150 feet discharge goal: Independent (6) Goal 1 - Bowel function: Pt will have daily continent BM while in rehab Goal 2 - Bladder function: Pt will remain continent of bladder while in rehab Nursing goal 3: Pt will participate in all scheduled rehab activities Nursing goal 4: Pt will remain free of falls during this rehab stay Nursing goal 5: Barriers and strategies: none Estimated length of stay in days: 14 Anticipated discharge date: 10/20/19 Discharge date adjustment comment: Identified financial and/or community resource needs: Family/Caregiver training days: none recommended [place] day (DATE): 10/19/19 Expected discharge destination: Home Anticipated services upon discharge: Home health, Nursing, Occupational therapy, Physical therapy Anticipated discharge equipment: ttb , Rollator Impairment group: debility Etiologic diagnosis: debility after wound infection Review of comorbidities: see MALACHI BLANCA MD Review/Recommendations Attestation: This interdisciplinary team conference was led by me and I concur with all decisions made during the team conference and revisions to the individualized overall plan of care. IRF cont stay criteria Patient demonstrates ongoing requirement for an intensive level of rehab services and an ongoing interdisciplinary team approach. at 0915 RPT #:[id number] END OF REPORT [facility] 2019-10-19 09:12:00 [facility] Rehab Progress Note REPORT#:[id number] REPORT STATUS: Signed DATE:10/19/19 TIME: 0912 PATIENT: SEYMOUR SNOW UNIT #: [id number] ROOM/BED: 6622-A : 48 AGE: 69 SEX: M ATTEND: Darrick Benson ADM AUTHOR: Darrick Benson * ALL edits or amendments must be made on the electronic/computer document * Subjective Patient reports: Yes: comfortable. No: complaints. Nursing reports: Yes: pain controlled. No: new events overnight, confusion. Comments: hospitalist follow up appreciated Objective General VS: Vital Signs: Date Time Temp Pulse Resp B/P B/P Pulse O2 O2 Flow FiO2 Mean Ox Delivery Rate 10/18 716 98.1 83 19 122/73 89.4 92 Room air 10/17 2018 97.7 85 18 131/77 94.6 92 Room air 10/17 1314 86 115/78 90.0 93 Room air 10/17 1312 85 128/81 96.5 93 Room air 10/17 1310 87 121/74 90.0 92 Room air Patient Weight Weight (lb): 235 Weight (oz): 3.73 Weight (kg): 106.700 Medications: Active Meds + DC'd Last 24 Hrs Carbamide Peroxide 5 DROP BID EACH EAR Tramadol HCl 50 MG Q4H PRN PRN PO Megestrol Acetate 40 MG DAILY PO Acetaminophen/Butalbital/Caffeine 1 TAB Q4H PRN PRN PO Meclizine HCl 25 MG Q6H PRN PRN PO Enoxaparin Sodium 40 MG Q24H SUBQ Furosemide 20 MG QAM PO Famotidine 20 MG BID PO Meropenem 500 MG Q6H IV Sterile Water 10 ML Metformin HCl 500 MG C BK DIN PO Acetaminophen 650 MG Q4H PRN PRN PO Bisacodyl 10 MG DAILY PRN PRN PO Dextrose/Water 25 ML ASDIR PRN IV Glucagon 1 MG ASDIR PRN IM Insulin Human Lispro LOW DOSE SCALE ASDIR SUBQ Lactulose 30 ML DAILY PRN PRN PO (CKD) Magnesium Hydroxide 30 ML DAILY PRN PRN PO Ondansetron Base 4 MG Q4H PRN PRN SL Senna/Docusate Sodium 2 TAB DAILY PRN PRN PO Physical Exam Psych: alert, normal affect HEENT: mucosal membranes moist, pupils reactive to light, sclera clear Neck: non-tender, supple, no carotid bruit, no JVD Cardiovascular: regular rate rhythm, S1/S2, no murmur Respiratory: aerating well Abdomen: soft, non-tender Functional Progress Functional progress: The data set between the solid lines has been imported from multidisciplinary team documentation. __ Functional Activity Admission Status Interim Status Toilet hygiene Partial/moderate (3) Setup or cleanup (5) Toilet transfer Partial/moderate (3) Independent (6) Eating Setup or cleanup (5) Independent (6) Shower/bathing Substantial/max (2) Supervision/touch (4) Dressing upper body Supervision/touch (4) Independent (6) Dressing lower body Substantial/max (2) Supervision/touch (4) Transfer to/from bed to chair Partial/moderate (3) Independent (6) Wheel 50ft w/ 2 turns Supervision/touch (4) Independent (6) Wheel 150 ft Substantial/max (2) Independent (6) Walk 50 ft w/ 2 turns Partial/moderate (3) Independent (6) Walk 150 ft Partial/moderate (3) Independent (6) Four steps Independent (6) __ see team conference also Results Findings/Data: Laboratory Tests: 10/18 10/17 10/17 10/17 0529 2047 1659 1103 Chemistry POC Glucose (74 - 106 MG/DL) 114 H 155 H 148 H 186 H Results: labs reviewed, vital signs stable, current med profile rev'd Diagnosis, Assessment Plan Problem List/A P: 1. Uncontrolled type 2 diabetes mellitus with hyperglycemia 2. Debility Free Text A P: See EHR for nursing, therapy, and CM notes Will continue current medications and treatments Plan discussed with: interdisc care team Rehab attestation: Face to face exam completed. Treatment plan discussed with patient. Meets continued stay criteria. Agree with interdisciplinary treatment plan. at 1042 RPT #:[id number] END OF REPORT [facility] 2019-10-18 15:15:00 [facility] Hospitalist Progress Note REPORT#:[id number] REPORT STATUS: Signed DATE:10/18/19 TIME: 151 PATIENT: SEYMOUR SNOW UNIT #: [id number] ROOM/BED: [address] : 48 AGE: 69 SEX: M ATTEND: Darrick Benson ADM AUTHOR: Tabatha Erickson MD * ALL edits or amendments must be made on the electronic/computer document * Subjective Patient reports: No: complaints. Objective General VS/I O: Vital Signs: Date Time Temp Pulse Resp B/P B/P Pulse O2 O2 Flow FiO2 Mean Ox Delivery Rate 10/17 1314 86 115/78 90.0 93 Room air 10/17 1312 85 128/81 96.5 93 Room air 10/17 1310 87 121/74 90.0 92 Room air 10/17 0659 97.5 83 19 118/69 85.5 91 Room air 10/16 2144 Nasal 1.941230 cannula 10/16 1929 98.2 90 18 153/86 108.0 94 10/16 1830 Nasal 2.865553 cannula 24 hour I O ending at 0700: 10/17 0700 10/16 1900 Intake Total 120 Output Total 1100 1050 Balance -980 -1050 Intake, Oral 120 Number 1 1 Bowel Movements Output, Urine 1100 1050 Patient Weight Weight (lb): 230 Weight (oz): 2.6 Weight (kg): 104.400 Medications: Active Meds + DC'd Last 24 Hrs Carbamide Peroxide 5 DROP BID EACH EAR Tramadol HCl 50 MG Q4H PRN PRN PO Megestrol Acetate 40 MG DAILY PO Acetaminophen/Butalbital/Caffeine 1 TAB Q4H PRN PRN PO Meclizine HCl 25 MG Q6H PRN PRN PO Enoxaparin Sodium 40 MG Q24H SUBQ Furosemide 20 MG QAM PO Famotidine 20 MG BID PO Meropenem 500 MG Q6H IV Sterile Water 10 ML Metformin HCl 500 MG C BK DIN PO Acetaminophen 650 MG Q4H PRN PRN PO Bisacodyl 10 MG DAILY PRN PRN PO Dextrose/Water 25 ML ASDIR PRN IV Glucagon 1 MG ASDIR PRN IM Insulin Human Lispro LOW DOSE SCALE ASDIR SUBQ Lactulose 30 ML DAILY PRN PRN PO (CKD) Magnesium Hydroxide 30 ML DAILY PRN PRN PO Ondansetron Base 4 MG Q4H PRN PRN SL Senna/Docusate Sodium 2 TAB DAILY PRN PRN PO Physical Exam Head/Eyes: atraumatic, normocephalic Neck: no JVD Cardiovascular: normal heart sounds, regular rate rhythm, no murmur Respiratory: aerating well, clear to auscultation, no distress Abdomen: incision looks clean, wound vac in place Extremities: no cyanosis, no edema Neuro/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: alert, oriented X 3, normal speech Diagnosis, Assessment Plan Free Text DxA P Notes Free text DxA P notes: Mr. Jayla Sarah is a 69 year old male with: #Cholecystitis --Wound VAC in place and continues to drain --Continue meropenem IV per infectious disease --Will need repeat CT per infectious disease recommendations , although not ordered -- ID follow up requested #Elevated LFTs -improved #DMII with hyperglycemia--> A1c 9.5 --continues on metformin + SSI #HTN --blood pressure controlled off medications #HLD: -->LDL 101 --recommend healthy dietary changes #Neck pain--> XR shows osteoarthritis --pain control --obtain CT neck #Pleural effusion--> possibly inflammatory 2/2 cholecystitis infection #deilitation - continue PT as per rehab protocol at 1516 RPT #:[id number] END OF REPORT [facility] 2019-10-18 11:18:00 [facility] Rehab Progress Note REPORT#:[id number] REPORT STATUS: Signed DATE:10/18/19 TIME: 1118 PATIENT: MYA SNOWNCIO UNIT #: [id number] ROOM/BED: 6622-A : 48 AGE: 69 SEX: M ATTEND: Darrick Benson ADM AUTHOR: Kelley,Darrick Shane * ALL edits or amendments must be made on the electronic/computer document * Subjective Patient reports: Yes: comfortable. No: complaints. Nursing reports: No: new events overnight, confusion, pain. Comments: hospitalist follow up appreciated Objective General VS: Vital Signs: Date Time Temp Pulse Resp B/P B/P Pulse O2 O2 Flow FiO2 Mean Ox Delivery Rate 10/17 1314 86 115/78 90.0 93 Room air 10/17 1312 85 128/81 96.5 93 Room air 10/17 1310 87 121/74 90.0 92 Room air 10/17 0659 97.5 83 19 118/69 85.5 91 Room air 10/16 2144 Nasal 1.787381 cannula 10/16 1929 98.2 90 18 153/86 108.0 94 10/16 1830 Nasal 2.339965 cannula Patient Weight Weight (lb): 230 Weight (oz): 2.6 Weight (kg): 104.400 Medications: Active Meds + DC'd Last 24 Hrs Carbamide Peroxide 5 DROP BID EACH EAR Tramadol HCl 50 MG Q4H PRN PRN PO Megestrol Acetate 40 MG DAILY PO Acetaminophen/Butalbital/Caffeine 1 TAB Q4H PRN PRN PO Meclizine HCl 25 MG Q6H PRN PRN PO Enoxaparin Sodium 40 MG Q24H SUBQ Furosemide 20 MG QAM PO Famotidine 20 MG BID PO Meropenem 500 MG Q6H IV Sterile Water 10 ML Metformin HCl 500 MG C BK DIN PO Acetaminophen 650 MG Q4H PRN PRN PO Bisacodyl 10 MG DAILY PRN PRN PO Dextrose/Water 25 ML ASDIR PRN IV Glucagon 1 MG ASDIR PRN IM Insulin Human Lispro LOW DOSE SCALE ASDIR SUBQ Lactulose 30 ML DAILY PRN PRN PO (CKD) Magnesium Hydroxide 30 ML DAILY PRN PRN PO Ondansetron Base 4 MG Q4H PRN PRN SL Senna/Docusate Sodium 2 TAB DAILY PRN PRN PO Physical Exam Psych: alert, normal affect HEENT: mucosal membranes moist, pupils reactive to light, sclera clear Neck: non-tender, supple, no carotid bruit, no JVD Cardiovascular: regular rate rhythm, S1/S2, no murmur Respiratory: aerating well Abdomen: soft, non-tender Functional Progress Functional progress: The data set between the solid lines has been imported from multidisciplinary team documentation. __ Functional Activity Admission Status Interim Status Toilet hygiene Partial/moderate (3) Setup or cleanup (5) Toilet transfer Partial/moderate (3) Independent (6) Eating Setup or cleanup (5) Independent (6) Shower/bathing Substantial/max (2) Supervision/touch (4) Dressing upper body Supervision/touch (4) Independent (6) Dressing lower body Substantial/max (2) Supervision/touch (4) Transfer to/from bed to chair Partial/moderate (3) Independent (6) Wheel 50ft w/ 2 turns Supervision/touch (4) Independent (6) Wheel 150 ft Substantial/max (2) Independent (6) Walk 50 ft w/ 2 turns Partial/moderate (3) Independent (6) Walk 150 ft Partial/moderate (3) Independent (6) Four steps Independent (6) __ OT daily note comment: Pt was supine in bed at the beginning of tx session with mexican interpretor present and agreeable to skilled OT services. Pt goal to take a shower and get dressed. Pt tolerated tx well and cont to require spv for safety and balance with shower. Pt tolerated tx well. End of tx pt was seated in w/c at bedside with chair alarm on and call light within reach. Cont to tx per OT POC cooperative, making progress Results Findings/Data: Laboratory Tests: 10/17 10/17 10/16 10/16 1103 0515 2040 1605 Chemistry POC Glucose (74 - 106 MG/DL) 186 H 105 135 H 138 H Results: labs reviewed, vital signs stable, current med profile rev'd Diagnosis, Assessment Plan Problem List/A P: 1. Uncontrolled type 2 diabetes mellitus with hyperglycemia 2. Debility Free Text A P: See EHR for nursing, therapy, and CM notes Will continue current medications and treatments Orders: Procedure Date/time Status SELF CARE/HOME MGT TRN 15 MIN 10/17 929 Complete EXERCISE 15 MIN 51969 10/17 929 Complete Rehab attestation: Face to face exam completed. Treatment plan discussed with patient. Meets continued stay criteria. Agree with interdisciplinary treatment plan. at 1605 RPT #:[id number] END OF REPORT [facility] 2019-10-17 17:01:00 [facility] REPORT#:[id number] REPORT STATUS: Signed DATE:10/17/19 TIME: 1701 PATIENT: SEYMOUR SNOW UNIT #: [id number] ROOM/BED: [address] : 48 AGE: 69 SEX: M ATTEND: Darrick Benson ADM AUTHOR: Tabatha Erickson MD * ALL edits or amendments must be made on the electronic/computer document * Subjective Patient reports: No: complaints. Objective General Medications: Active Meds + DC'd Last 24 Hrs Carbamide Peroxide 5 DROP BID EACH EAR Tramadol HCl 50 MG Q4H PRN PRN PO Megestrol Acetate 40 MG DAILY PO Acetaminophen/Butalbital/Caffeine 1 TAB Q4H PRN PRN PO Meclizine HCl 25 MG Q6H PRN PRN PO Enoxaparin Sodium 40 MG Q24H SUBQ Furosemide 20 MG QAM PO Famotidine 20 MG BID PO Meropenem 500 MG Q6H IV Sterile Water 10 ML Metformin HCl 500 MG C BK DIN PO Acetaminophen 650 MG Q4H PRN PRN PO Bisacodyl 10 MG DAILY PRN PRN PO Dextrose/Water 25 ML ASDIR PRN IV Glucagon 1 MG ASDIR PRN IM Insulin Human Lispro LOW DOSE SCALE ASDIR SUBQ Lactulose 30 ML DAILY PRN PRN PO (CKD) Magnesium Hydroxide 30 ML DAILY PRN PRN PO Ondansetron Base 4 MG Q4H PRN PRN SL Senna/Docusate Sodium 2 TAB DAILY PRN PRN PO Physical Exam General appearance: alert, awake Head/Eyes: atraumatic, normocephalic Neck: no JVD Cardiovascular: normal heart sounds, regular rate rhythm, no murmur Respiratory: aerating well, clear to auscultation, no distress Abdomen: incision looks clean, wound vac in place Extremities: no cyanosis, no edema Neuro/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: alert, oriented X 3, normal speech Diagnosis, Assessment Plan Free Text DxA P Notes Free text DxA P notes: Mr. Jayla Sarah is a 69 year old male with: #Cholecystitis --Wound VAC in place and continues to drain --Continue meropenem IV per infectious disease --Will need repeat CT per infectious disease recommendations #Elevated LFTs -improved #DMII with hyperglycemia--> A1c 9.5 --continues on metformin + SSI #HTN --blood pressure controlled off medications #HLD: -->LDL 101 --recommend healthy dietary changes #Neck pain--> XR shows osteoarthritis --pain control --obtain CT neck #Pleural effusion--> possibly inflammatory 2/2 cholecystitis infection #deilitation - continue PT as per rehab protocol at 1515 RPT #:[id number] END OF REPORT [facility] 2019-10-17 12:15:00 [facility] Rehab Progress Note REPORT#:[id number] REPORT STATUS: Signed DATE:10/17/19 TIME: 1215 PATIENT: MYA SNOWNCIO UNIT #: [id number] ROOM/BED: [address] : 48 AGE: 69 SEX: M ATTEND: Darrick Benson ADM AUTHOR: Sebastian Mora NP * ALL edits or amendments must be made on the electronic/computer document * Subjective Chief complaint: no acute event, resting in bed, no discomfort Objective General VS: Vital Signs: Date Time Temp Pulse Resp B/P B/P Pulse O2 O2 Flow FiO2 Mean Ox Delivery Rate 10/16 0748 97.9 98 20 145/95 112.0 95 Nasal cannula 10/16 2007 98.2 90 20 122/75 90.3 92 Room air 10/15 1758 98.1 90 18 154/87 109.6 93 Patient Weight Weight (lb): 230 Weight (oz): 2.6 Weight (kg): 104.400 Medications: Active Meds + DC'd Last 24 Hrs Carbamide Peroxide 5 DROP BID EACH EAR Tramadol HCl 50 MG Q4H PRN PRN PO Megestrol Acetate 40 MG DAILY PO Acetaminophen/Butalbital/Caffeine 1 TAB Q4H PRN PRN PO Meclizine HCl 25 MG Q6H PRN PRN PO Enoxaparin Sodium 40 MG Q24H SUBQ Furosemide 20 MG QAM PO Famotidine 20 MG BID PO Meropenem 500 MG Q6H IV Sterile Water 10 ML Metformin HCl 500 MG C BK DIN PO Acetaminophen 650 MG Q4H PRN PRN PO Bisacodyl 10 MG DAILY PRN PRN PO Dextrose/Water 25 ML ASDIR PRN IV Glucagon 1 MG ASDIR PRN IM Insulin Human Lispro LOW DOSE SCALE ASDIR SUBQ Lactulose 30 ML DAILY PRN PRN PO (CKD) Magnesium Hydroxide 30 ML DAILY PRN PRN PO Ondansetron Base 4 MG Q4H PRN PRN SL Senna/Docusate Sodium 2 TAB DAILY PRN PRN PO Tramadol HCl 50 MG Q4H PRN PRN PO (DC) Physical Exam General appearance: sleeping comfortably, no acute distress Psych: alert, normal affect HEENT: mucosal membranes moist, pupils reactive to light, sclera clear Neck: non-tender, supple, no carotid bruit, no JVD Cardiovascular: regular rate rhythm, S1/S2, no murmur Respiratory: aerating well Abdomen: soft, non-tender Functional Progress Functional progress: The data set between the solid lines has been imported from multidisciplinary team documentation. __ Functional Activity Admission Status Interim Status Toilet hygiene Partial/moderate (3) Setup or cleanup (5) Toilet transfer Partial/moderate (3) Independent (6) Eating Setup or cleanup (5) Independent (6) Shower/bathing Substantial/max (2) Supervision/touch (4) Dressing upper body Supervision/touch (4) Setup or cleanup (5) Dressing lower body Substantial/max (2) Setup or cleanup (5) Transfer to/from bed to chair Partial/moderate (3) Independent (6) Wheel 50ft w/ 2 turns Supervision/touch (4) Independent (6) Wheel 150 ft Substantial/max (2) Independent (6) Walk 50 ft w/ 2 turns Partial/moderate (3) Independent (6) Walk 150 ft Partial/moderate (3) Independent (6) Four steps Supervision/touch (4) __ Results Findings/Data: Laboratory Tests: 10/16 10/16 10/15 10/15 1100 0532 2114 1749 Chemistry POC Glucose (74 - 106 MG/DL) 148 H 106 164 H 128 H Diagnosis, Assessment Plan Problem List/A P: 1. Uncontrolled type 2 diabetes mellitus with hyperglycemia 2. Debility Free Text A P: Plan - pain management - on Merrem - see treatment plan from other specialties - continue medical management - d/w pt, nurse Rehab attestation: Face to face exam completed. Treatment plan discussed with patient. Meets continued stay criteria. Agree with interdisciplinary treatment plan. at 1223 RPT #:[id number] END OF REPORT [facility] 2019-10-17 12:15:00 [facility] Rehab Progress Note REPORT#:[id number] REPORT STATUS: Signed DATE:10/17/19 TIME: 1215 PATIENT: SEYMOUR SNOW UNIT #: [id number] ROOM/BED: [address] : 48 AGE: 69 SEX: M ATTEND: Darrick Benson ADM AUTHOR: Sebastian Mora BALL WARPER TENDER * ALL edits or amendments must be made on the electronic/computer document * Sebastian Mora 10/17/19 1215: Subjective Chief complaint: no acute event, resting in bed, no discomfort Objective General VS: Vital Signs: Date Time Temp Pulse Resp B/P B/P Pulse O2 O2 Flow FiO2 Mean Ox Delivery Rate 10/16 0748 97.9 98 20 145/95 112.0 95 Nasal cannula 10/16 2007 98.2 90 20 122/75 90.3 92 Room air 10/15 1758 98.1 90 18 154/87 109.6 93 Patient Weight Weight (lb): 230 Weight (oz): 2.6 Weight (kg): 104.400 Medications: Active Meds + DC'd Last 24 Hrs Carbamide Peroxide 5 DROP BID EACH EAR Tramadol HCl 50 MG Q4H PRN PRN PO Megestrol Acetate 40 MG DAILY PO Acetaminophen/Butalbital/Caffeine 1 TAB Q4H PRN PRN PO Meclizine HCl 25 MG Q6H PRN PRN PO Enoxaparin Sodium 40 MG Q24H SUBQ Furosemide 20 MG QAM PO Famotidine 20 MG BID PO Meropenem 500 MG Q6H IV Sterile Water 10 ML Metformin HCl 500 MG C BK DIN PO Acetaminophen 650 MG Q4H PRN PRN PO Bisacodyl 10 MG DAILY PRN PRN PO Dextrose/Water 25 ML ASDIR PRN IV Glucagon 1 MG ASDIR PRN IM Insulin Human Lispro LOW DOSE SCALE ASDIR SUBQ Lactulose 30 ML DAILY PRN PRN PO (CKD) Magnesium Hydroxide 30 ML DAILY PRN PRN PO Ondansetron Base 4 MG Q4H PRN PRN SL Senna/Docusate Sodium 2 TAB DAILY PRN PRN PO Tramadol HCl 50 MG Q4H PRN PRN PO (DC) Physical Exam General appearance: sleeping comfortably, no acute distress Psych: alert, normal affect HEENT: mucosal membranes moist, pupils reactive to light, sclera clear Neck: non-tender, supple, no carotid bruit, no JVD Cardiovascular: regular rate rhythm, S1/S2, no murmur Respiratory: aerating well Abdomen: soft, non-tender Functional Progress Functional progress: The data set between the solid lines has been imported from multidisciplinary team documentation. __ Functional Activity Admission Status Interim Status Toilet hygiene Partial/moderate (3) Setup or cleanup (5) Toilet transfer Partial/moderate (3) Independent (6) Eating Setup or cleanup (5) Independent (6) Shower/bathing Substantial/max (2) Supervision/touch (4) Dressing upper body Supervision/touch (4) Setup or cleanup (5) Dressing lower body Substantial/max (2) Setup or cleanup (5) Transfer to/from bed to chair Partial/moderate (3) Independent (6) Wheel 50ft w/ 2 turns Supervision/touch (4) Independent (6) Wheel 150 ft Substantial/max (2) Independent (6) Walk 50 ft w/ 2 turns Partial/moderate (3) Independent (6) Walk 150 ft Partial/moderate (3) Independent (6) Four steps Supervision/touch (4) __ Results Findings/Data: Laboratory Tests: 10/16 10/16 10/15 10/15 1100 0532 2114 1749 Chemistry POC Glucose (74 - 106 MG/DL) 148 H 106 164 H 128 H Diagnosis, Assessment Plan Problem List/A P: 1. Uncontrolled type 2 diabetes mellitus with hyperglycemia 2. Debility Free Text A P: Plan - pain management - on Merrem - see treatment plan from other specialties - continue medical management - d/w pt, nurse Rehab attestation: Face to face exam completed. Treatment plan discussed with patient. Meets continued stay criteria. Agree with interdisciplinary treatment plan. [facility] 10/17/19 1249: Attestations Physician Attestation Agree w/findings plan: Agree with the findings and plan as documented by BALL WARPER TENDER Sebastian Mora. at 1223 RPT #:[id number] END OF REPORT [facility] 2019-10-17 12:15:00 [facility] Rehab Progress Note REPORT#:[id number] REPORT STATUS: Signed DATE:10/17/19 TIME: 1215 PATIENT: SEYMOUR SNOW UNIT #: [id number] ROOM/BED: [address] : 48 AGE: 69 SEX: M ATTEND: Darrick Benson ADM AUTHOR: Sebastian Mora BALL WARPER TENDER * ALL edits or amendments must be made on the electronic/computer document * Sebastian Mora 10/17/19 1215: Subjective Chief complaint: no acute event, resting in bed, no discomfort Objective General VS: Vital Signs: Date Time Temp Pulse Resp B/P B/P Pulse O2 O2 Flow FiO2 Mean Ox Delivery Rate 10/16 07 97.9 98 20 145/95 112.0 95 Nasal cannula 10/16 2007 98.2 90 20 122/75 90.3 92 Room air 10/15 1758 98.1 90 18 154/87 109.6 93 Patient Weight Weight (lb): 230 Weight (oz): 2.6 Weight (kg): 104.400 Medications: Active Meds + DC'd Last 24 Hrs Carbamide Peroxide 5 DROP BID EACH EAR Tramadol HCl 50 MG Q4H PRN PRN PO Megestrol Acetate 40 MG DAILY PO Acetaminophen/Butalbital/Caffeine 1 TAB Q4H PRN PRN PO Meclizine HCl 25 MG Q6H PRN PRN PO Enoxaparin Sodium 40 MG Q24H SUBQ Furosemide 20 MG QAM PO Famotidine 20 MG BID PO Meropenem 500 MG Q6H IV Sterile Water 10 ML Metformin HCl 500 MG C BK DIN PO Acetaminophen 650 MG Q4H PRN PRN PO Bisacodyl 10 MG DAILY PRN PRN PO Dextrose/Water 25 ML ASDIR PRN IV Glucagon 1 MG ASDIR PRN IM Insulin Human Lispro LOW DOSE SCALE ASDIR SUBQ Lactulose 30 ML DAILY PRN PRN PO (CKD) Magnesium Hydroxide 30 ML DAILY PRN PRN PO Ondansetron Base 4 MG Q4H PRN PRN SL Senna/Docusate Sodium 2 TAB DAILY PRN PRN PO Tramadol HCl 50 MG Q4H PRN PRN PO (DC) Physical Exam General appearance: sleeping comfortably, no acute distress Psych: alert, normal affect HEENT: mucosal membranes moist, pupils reactive to light, sclera clear Neck: non-tender, supple, no carotid bruit, no JVD Cardiovascular: regular rate rhythm, S1/S2, no murmur Respiratory: aerating well Abdomen: soft, non-tender Functional Progress Functional progress: The data set between the solid lines has been imported from multidisciplinary team documentation. __ Functional Activity Admission Status Interim Status Toilet hygiene Partial/moderate (3) Setup or cleanup (5) Toilet transfer Partial/moderate (3) Independent (6) Eating Setup or cleanup (5) Independent (6) Shower/bathing Substantial/max (2) Supervision/touch (4) Dressing upper body Supervision/touch (4) Setup or cleanup (5) Dressing lower body Substantial/max (2) Setup or cleanup (5) Transfer to/from bed to chair Partial/moderate (3) Independent (6) Wheel 50ft w/ 2 turns Supervision/touch (4) Independent (6) Wheel 150 ft Substantial/max (2) Independent (6) Walk 50 ft w/ 2 turns Partial/moderate (3) Independent (6) Walk 150 ft Partial/moderate (3) Independent (6) Four steps Supervision/touch (4) __ Results Findings/Data: Laboratory Tests: 10/16 10/16 10/15 10/15 1100 0532 2114 1749 Chemistry POC Glucose (74 - 106 MG/DL) 148 H 106 164 H 128 H Diagnosis, Assessment Plan Problem List/A P: 1. Uncontrolled type 2 diabetes mellitus with hyperglycemia 2. Debility Free Text A P: Plan - pain management - on Merrem - see treatment plan from other specialties - continue medical management - d/w pt, nurse Rehab attestation: Face to face exam completed. Treatment plan discussed with patient. Meets continued stay criteria. Agree with interdisciplinary treatment plan. [facility] 10/17/19 1249: Attestations Physician Attestation Agree w/findings plan: Agree with the findings and plan as documented by JADE Mora. at 1223 at 1256 RPT #:[id number] END OF REPORT [facility] 2019-10-16 12:29:00 [facility] REPORT#:[id number] REPORT STATUS: Signed DATE:10/16/19 TIME: 1229 PATIENT: SEYMOUR SNOW UNIT #: [id number] ROOM/BED: [address] : [address] AGE: 69 SEX: M ATTEND: Darrick Benson ADM AUTHOR: Tabatha Erickson MD * ALL edits or amendments must be made on the electronic/computer document * Subjective Patient reports: No: complaints. Objective General VS/I O: Vital Signs: Date Time Temp Pulse Resp B/P B/P Pulse O2 O2 Flow FiO2 Mean Ox Delivery Rate 10/15 0739 98.2 93 18 130/77 94.3 90 10/14 1905 98.4 96 22 129/86 100.7 93 Room air 10/14 1732 95 Nasal 1.051662 cannula Patient Weight Weight (lb): 230 Weight (oz): 2.6 Weight (kg): 104.400 Medications: Active Meds + DC'd Last 24 Hrs Megestrol Acetate 40 MG DAILY PO Acetaminophen/Butalbital/Caffeine 1 TAB Q4H PRN PRN PO Meclizine HCl 25 MG Q6H PRN PRN PO Enoxaparin Sodium 40 MG Q24H SUBQ Furosemide 20 MG QAM PO Famotidine 20 MG BID PO Meropenem 500 MG Q6H IV Sterile Water 10 ML Metformin HCl 500 MG C BK DIN PO Acetaminophen 650 MG Q4H PRN PRN PO Bisacodyl 10 MG DAILY PRN PRN PO Dextrose/Water 25 ML ASDIR PRN IV Glucagon 1 MG ASDIR PRN IM Insulin Human Lispro LOW DOSE SCALE ASDIR SUBQ Lactulose 30 ML DAILY PRN PRN PO (CKD) Magnesium Hydroxide 30 ML DAILY PRN PRN PO Ondansetron Base 4 MG Q4H PRN PRN SL Senna/Docusate Sodium 2 TAB DAILY PRN PRN PO Tramadol HCl 50 MG Q4H PRN PRN PO Physical Exam Head/Eyes: atraumatic, normocephalic Neck: no JVD Cardiovascular: normal heart sounds, regular rate rhythm, no murmur Respiratory: aerating well, clear to auscultation, no distress Abdomen: incision looks clean, wound vac in place Extremities: no cyanosis, no edema Neuro/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: alert, oriented X 3, normal speech Diagnosis, Assessment Plan Free Text DxA P Notes Free text DxA P notes: Mr. Jayla Sarah is a 69 year old male with: #Cholecystitis --Wound VAC in place and continues to drain --Continue meropenem IV per infectious disease --Will need repeat CT per infectious disease recommendations #Elevated LFTs -improved #DMII with hyperglycemia--> A1c 9.5 --continues on metformin + SSI #HTN --blood pressure controlled off medications #HLD: -->LDL 101 --recommend healthy dietary changes #Neck pain--> XR shows osteoarthritis --pain control --obtain CT neck #Pleural effusion--> possibly inflammatory 2/2 cholecystitis infection #deilitation - continue PT as per rehab protocol at 1231 RPT #:[id number] END OF REPORT [facility] 2019-10-16 12:27:00 [facility] Hospitalist Progress Note REPORT#:[id number] REPORT STATUS: Signed DATE:10/16/19 TIME: 1226 PATIENT: SEYMOUR SNOW UNIT #: [id number] ROOM/BED: [address] : 48 AGE: 69 SEX: M ATTEND: Darrick Benson ADM AUTHOR: Tabatha Erickson MD * ALL edits or amendments must be made on the electronic/computer document * Subjective Chief Complaint: Neck pain Free Text Subj Notes Free Subj Notes: late note entry patient seen and examined . no acute complaint Review of Systems All systems rev neg: except as marked (see HPI, PMH) Objective General VS/I O: Vital Signs: Date Time Temp Pulse Resp B/P B/P Pulse O2 O2 Flow FiO2 Mean Ox Delivery Rate 10/15 0739 98.2 93 18 130/77 94.3 90 10/14 1905 98.4 96 22 129/86 100.7 93 Room air 10/14 1732 95 Nasal 1.403355 cannula Patient Weight Weight (lb): 230 Weight (oz): 2.6 Weight (kg): 104.400 Medications: Active Meds + DC'd Last 24 Hrs Megestrol Acetate 40 MG DAILY PO Acetaminophen/Butalbital/Caffeine 1 TAB Q4H PRN PRN PO Meclizine HCl 25 MG Q6H PRN PRN PO Enoxaparin Sodium 40 MG Q24H SUBQ Furosemide 20 MG QAM PO Famotidine 20 MG BID PO Meropenem 500 MG Q6H IV Sterile Water 10 ML Metformin HCl 500 MG C BK DIN PO Acetaminophen 650 MG Q4H PRN PRN PO Bisacodyl 10 MG DAILY PRN PRN PO Dextrose/Water 25 ML ASDIR PRN IV Glucagon 1 MG ASDIR PRN IM Insulin Human Lispro LOW DOSE SCALE ASDIR SUBQ Lactulose 30 ML DAILY PRN PRN PO (CKD) Magnesium Hydroxide 30 ML DAILY PRN PRN PO Ondansetron Base 4 MG Q4H PRN PRN SL Senna/Docusate Sodium 2 TAB DAILY PRN PRN PO Tramadol HCl 50 MG Q4H PRN PRN PO Physical Exam General appearance: alert, awake Head/Eyes: atraumatic, normocephalic Neck: no JVD Cardiovascular: normal heart sounds, regular rate rhythm, no murmur Respiratory: aerating well, clear to auscultation, no distress Abdomen: incision looks clean, wound vac in place Extremities: no cyanosis, no edema Neuro/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: alert, oriented X 3, normal speech Results Findings/Data: Laboratory Tests 10/15 10/15 10/14 10/14 1126 0520 2028 172 Chemistry POC Glucose (74 - 106 MG/DL) 176 H 116 H 167 H 124 H Diagnosis, Assessment Plan Free Text DxA P Notes Free text DxA P notes: Mr. Jayla Sarah is a 69 year old male with: #Cholecystitis --Wound VAC in place and continues to drain --Continue meropenem IV per infectious disease --Will need repeat CT per infectious disease recommendations #Elevated LFTs -improved #DMII with hyperglycemia--> A1c 9.5 --continues on metformin + SSI #HTN --blood pressure controlled off medications #HLD: -->LDL 101 --recommend healthy dietary changes #Neck pain--> XR shows osteoarthritis --pain control --obtain CT neck #Pleural effusion--> possibly inflammatory 2/2 cholecystitis infection --as per ID need to repeat CT , will follow managment disscused with his son on the phone at 1229 RPT #:[id number] END OF REPORT [facility] 2019-10-16 06:08:00 [facility] Rehab Progress Note REPORT#:[id number] REPORT STATUS: Signed DATE:10/16/19 TIME: 607 PATIENT: MYA SNOWNCIO UNIT #: [id number] [address] AGE: 69 SEX: M ATTEND: Darrick Benson ADM AUTHOR: Sebastian Mora BALL WARPER TENDER * ALL edits or amendments must be made on the electronic/computer document * Subjective Chief complaint: no acute event, c/o ears poping a few times when changing position, denied ear pain or vertigo Objective General VS: Vital Signs: Date Time Temp Pulse Resp B/P B/P Pulse O2 O2 Flow FiO2 Mean Ox Delivery Rate 10/14 1905 98.4 96 22 129/86 100.7 93 Room air 10/14 1732 95 Nasal 1.234159 cannula 10/14 1053 106 112/55 74.0 95 Room air 10/14 1044 107 119/75 89.4 94 Room air 10/14 0902 101 124/84 97.2 92 Room air 10/14 0901 95 108/84 92.1 93 Room air 10/14 0804 97.7 79 18 125/75 91.4 92 Patient Weight Weight (lb): 230 Weight (oz): 2.6 Weight (kg): 104.400 Medications: Active Meds + DC'd Last 24 Hrs Megestrol Acetate 40 MG DAILY PO Acetaminophen/Butalbital/Caffeine 1 TAB Q4H PRN PRN PO Meclizine HCl 25 MG Q6H PRN PRN PO Enoxaparin Sodium 40 MG Q24H SUBQ Furosemide 20 MG QAM PO Famotidine 20 MG BID PO Meropenem 500 MG Q6H IV Sterile Water 10 ML Metformin HCl 500 MG C BK DIN PO Acetaminophen 650 MG Q4H PRN PRN PO Bisacodyl 10 MG DAILY PRN PRN PO Dextrose/Water 25 ML ASDIR PRN IV Glucagon 1 MG ASDIR PRN IM Insulin Human Lispro LOW DOSE SCALE ASDIR SUBQ Lactulose 30 ML DAILY PRN PRN PO (CKD) Magnesium Hydroxide 30 ML DAILY PRN PRN PO Ondansetron Base 4 MG Q4H PRN PRN SL Senna/Docusate Sodium 2 TAB DAILY PRN PRN PO Tramadol HCl 50 MG Q4H PRN PRN PO Physical Exam General appearance: alert, awake Psych: alert, normal affect HEENT: mucosal membranes moist, pupils reactive to light, sclera clear Neck: non-tender, supple, no carotid bruit, no JVD Cardiovascular: regular rate rhythm, S1/S2, no murmur Respiratory: aerating well Abdomen: soft, non-tender Functional Progress Functional progress: The data set between the solid lines has been imported from multidisciplinary team documentation. __ Functional Activity Admission Status Interim Status Toilet hygiene Partial/moderate (3) Partial/moderate (3) Toilet transfer Partial/moderate (3) Partial/moderate (3) Eating Setup or cleanup (5) Independent (6) Shower/bathing Substantial/max (2) Supervision/touch (4) Dressing upper body Supervision/touch (4) Setup or cleanup (5) Dressing lower body Substantial/max (2) Setup or cleanup (5) Transfer to/from bed to chair Partial/moderate (3) Independent (6) Wheel 50ft w/ 2 turns Supervision/touch (4) Independent (6) Wheel 150 ft Substantial/max (2) Independent (6) Walk 50 ft w/ 2 turns Partial/moderate (3) Independent (6) Walk 150 ft Partial/moderate (3) Independent (6) Four steps Independent (6) __ Results Findings/Data: Laboratory Tests: 10/15 10/14 10/14 10/14 0520 2029 1720 1150 Chemistry POC Glucose (74 - 106 MG/DL) 116 H 167 H 124 H 198 H Diagnosis, Assessment Plan Problem List/A P: 1. Uncontrolled type 2 diabetes mellitus with hyperglycemia 2. Debility Free Text A P: Plan - bilateral tympanic membrain normal, large amount of cerumen - recommend f/u pcp for cerumen removal - pain management - on Merrem - see treatment plan from other specialties - d/w pt, nurse Rehab attestation: Face to face exam completed. Treatment plan discussed with patient. Meets continued stay criteria. Agree with interdisciplinary treatment plan. at 1028 RPT #:[id number] END OF REPORT [facility] 2019-10-16 06:08:00 [facility]) Rehab Progress Note REPORT#:[id number] REPORT STATUS: Signed DATE:10/16/19 TIME: 06 PATIENT: SEYMOUR SNOW UNIT #: [id number] ROOM/BED: [address] : 48 AGE: 69 SEX: M ATTEND: Darrick Benson ADM AUTHOR: Sebastian Mora BALL WARPER TENDER * ALL edits or amendments must be made on the electronic/computer document * Sebastian Mora 10/16/19607: Subjective Chief complaint: no acute event, c/o ears poping a few times when changing position, denied ear pain or vertigo Objective General VS: Vital Signs: Date Time Temp Pulse Resp B/P B/P Pulse O2 O2 Flow FiO2 Mean Ox Delivery Rate 10/14 1905 98.4 96 22 129/86 100.7 93 Room air 10/14 1732 95 Nasal 1.976914 cannula 10/14 1053 106 112/55 74.0 95 Room air 10/14 1044 107 119/75 89.4 94 Room air 10/14 0902 101 124/84 97.2 92 Room air 10/14 0901 95 108/84 92.1 93 Room air 10/14 0804 97.7 79 18 125/75 91.4 92 Patient Weight Weight (lb): 230 Weight (oz): 2.6 Weight (kg): 104.400 Medications: Active Meds + DC'd Last 24 Hrs Megestrol Acetate 40 MG DAILY PO Acetaminophen/Butalbital/Caffeine 1 TAB Q4H PRN PRN PO Meclizine HCl 25 MG Q6H PRN PRN PO Enoxaparin Sodium 40 MG Q24H SUBQ Furosemide 20 MG QAM PO Famotidine 20 MG BID PO Meropenem 500 MG Q6H IV Sterile Water 10 ML Metformin HCl 500 MG C BK DIN PO Acetaminophen 650 MG Q4H PRN PRN PO Bisacodyl 10 MG DAILY PRN PRN PO Dextrose/Water 25 ML ASDIR PRN IV Glucagon 1 MG ASDIR PRN IM Insulin Human Lispro LOW DOSE SCALE ASDIR SUBQ Lactulose 30 ML DAILY PRN PRN PO (CKD) Magnesium Hydroxide 30 ML DAILY PRN PRN PO Ondansetron Base 4 MG Q4H PRN PRN SL Senna/Docusate Sodium 2 TAB DAILY PRN PRN PO Tramadol HCl 50 MG Q4H PRN PRN PO Physical Exam General appearance: alert, awake Psych: alert, normal affect HEENT: mucosal membranes moist, pupils reactive to light, sclera clear Neck: non-tender, supple, no carotid bruit, no JVD Cardiovascular: regular rate rhythm, S1/S2, no murmur Respiratory: aerating well Abdomen: soft, non-tender Functional Progress Functional progress: The data set between the solid lines has been imported from multidisciplinary team documentation. __ Functional Activity Admission Status Interim Status Toilet hygiene Partial/moderate (3) Partial/moderate (3) Toilet transfer Partial/moderate (3) Partial/moderate (3) Eating Setup or cleanup (5) Independent (6) Shower/bathing Substantial/max (2) Supervision/touch (4) Dressing upper body Supervision/touch (4) Setup or cleanup (5) Dressing lower body Substantial/max (2) Setup or cleanup (5) Transfer to/from bed to chair Partial/moderate (3) Independent (6) Wheel 50ft w/ 2 turns Supervision/touch (4) Independent (6) Wheel 150 ft Substantial/max (2) Independent (6) Walk 50 ft w/ 2 turns Partial/moderate (3) Independent (6) Walk 150 ft Partial/moderate (3) Independent (6) Four steps Independent (6) __ Results Findings/Data: Laboratory Tests: 10/15 10/14 10/14 10/14 0520 2029 1720 1150 Chemistry POC Glucose (74 - 106 MG/DL) 116 H 167 H 124 H 198 H Diagnosis, Assessment Plan Problem List/A P: 1. Uncontrolled type 2 diabetes mellitus with hyperglycemia 2. Debility Free Text A P: Plan - bilateral tympanic membrain normal, large amount of cerumen - recommend f/u pcp for cerumen removal - pain management - on Merrem - see treatment plan from other specialties - d/w pt, nurse Rehab attestation: Face to face exam completed. Treatment plan discussed with patient. Meets continued stay criteria. Agree with interdisciplinary treatment plan. [facility] 10/16/19 1222: Attestations Physician Attestation Agree w/findings plan: Agree with the findings and plan as documented by BALL WARPER TENDER Sebastian Mora. at 1028 RPT #:[id number] END OF REPORT [facility] 2019-10-16 06:08:00 [facility]) Rehab Progress Note REPORT#:[id number] REPORT STATUS: Signed DATE:10/16/19 TIME: 607 PATIENT: SEYMOUR SNOW UNIT #: [id number] ROOM/BED: [address] : 48 AGE: 69 SEX: M ATTEND: Darrick Benson ADM AUTHOR: Sebastian Mora BALL WARPER TENDER * ALL edits or amendments must be made on the electronic/computer document * Sebastian Mora 10/16/19 0608: Subjective Chief complaint: no acute event, c/o ears poping a few times when changing position, denied ear pain or vertigo Objective General VS: Vital Signs: Date Time Temp Pulse Resp B/P B/P Pulse O2 O2 Flow FiO2 Mean Ox Delivery Rate 10/14 1905 98.4 96 22 129/86 100.7 93 Room air 10/14 1732 95 Nasal 1.072704 cannula 10/14 1053 106 112/55 74.0 95 Room air 10/14 1044 107 119/75 89.4 94 Room air 10/14 0902 101 124/84 97.2 92 Room air 10/14 0901 95 108/84 92.1 93 Room air 10/14 0804 97.7 79 18 125/75 91.4 92 Patient Weight Weight (lb): 230 Weight (oz): 2.6 Weight (kg): 104.400 Medications: Active Meds + DC'd Last 24 Hrs Megestrol Acetate 40 MG DAILY PO Acetaminophen/Butalbital/Caffeine 1 TAB Q4H PRN PRN PO Meclizine HCl 25 MG Q6H PRN PRN PO Enoxaparin Sodium 40 MG Q24H SUBQ Furosemide 20 MG QAM PO Famotidine 20 MG BID PO Meropenem 500 MG Q6H IV Sterile Water 10 ML Metformin HCl 500 MG C BK DIN PO Acetaminophen 650 MG Q4H PRN PRN PO Bisacodyl 10 MG DAILY PRN PRN PO Dextrose/Water 25 ML ASDIR PRN IV Glucagon 1 MG ASDIR PRN IM Insulin Human Lispro LOW DOSE SCALE ASDIR SUBQ Lactulose 30 ML DAILY PRN PRN PO (CKD) Magnesium Hydroxide 30 ML DAILY PRN PRN PO Ondansetron Base 4 MG Q4H PRN PRN SL Senna/Docusate Sodium 2 TAB DAILY PRN PRN PO Tramadol HCl 50 MG Q4H PRN PRN PO Physical Exam General appearance: alert, awake Psych: alert, normal affect HEENT: mucosal membranes moist, pupils reactive to light, sclera clear Neck: non-tender, supple, no carotid bruit, no JVD Cardiovascular: regular rate rhythm, S1/S2, no murmur Respiratory: aerating well Abdomen: soft, non-tender Functional Progress Functional progress: The data set between the solid lines has been imported from multidisciplinary team documentation. __ Functional Activity Admission Status Interim Status Toilet hygiene Partial/moderate (3) Partial/moderate (3) Toilet transfer Partial/moderate (3) Partial/moderate (3) Eating Setup or cleanup (5) Independent (6) Shower/bathing Substantial/max (2) Supervision/touch (4) Dressing upper body Supervision/touch (4) Setup or cleanup (5) Dressing lower body Substantial/max (2) Setup or cleanup (5) Transfer to/from bed to chair Partial/moderate (3) Independent (6) Wheel 50ft w/ 2 turns Supervision/touch (4) Independent (6) Wheel 150 ft Substantial/max (2) Independent (6) Walk 50 ft w/ 2 turns Partial/moderate (3) Independent (6) Walk 150 ft Partial/moderate (3) Independent (6) Four steps Independent (6) __ Results Findings/Data: Laboratory Tests: 10/15 10/14 10/14 10/14 0520 2029 1720 1150 Chemistry POC Glucose (74 - 106 MG/DL) 116 H 167 H 124 H 198 H Diagnosis, Assessment Plan Problem List/A P: 1. Uncontrolled type 2 diabetes mellitus with hyperglycemia 2. Debility Free Text A P: Plan - bilateral tympanic membrain normal, large amount of cerumen - recommend f/u pcp for cerumen removal - pain management - on Merrem - see treatment plan from other specialties - d/w pt, nurse Rehab attestation: Face to face exam completed. Treatment plan discussed with patient. Meets continued stay criteria. Agree with interdisciplinary treatment plan. [facility] 10/16/19 1222: Attestations Physician Attestation Agree w/findings plan: Agree with the findings and plan as documented by JADE Mora. at 1028 RPT #:[id number] END OF REPORT [facility] 2019-10-16 06:08:00 [facility] Rehab Progress Note REPORT#:[id number] REPORT STATUS: Signed DATE:10/16/19 TIME: 607 PATIENT: SEYMOUR SNOW UNIT #: [id number] ROOM/BED: [address] : 48 AGE: 69 SEX: M ATTEND: Darrick Benson ADM AUTHOR: Sebastian Mora BALL WARPER TENDER * ALL edits or amendments must be made on the electronic/computer document * Sebastian Mora 10/16/19 0608: Subjective Chief complaint: no acute event, c/o ears poping a few times when changing position, denied ear pain or vertigo Objective General VS: Vital Signs: Date Time Temp Pulse Resp B/P B/P Pulse O2 O2 Flow FiO2 Mean Ox Delivery Rate 10/14 1905 98.4 96 22 129/86 100.7 93 Room air 10/14 1732 95 Nasal 1.142563 cannula 10/14 1053 106 112/55 74.0 95 Room air 10/14 1044 107 119/75 89.4 94 Room air 10/14 0902 101 124/84 97.2 92 Room air 10/14 0901 95 108/84 92.1 93 Room air 10/14 0804 97.7 79 18 125/75 91.4 92 Patient Weight Weight (lb): 230 Weight (oz): 2.6 Weight (kg): 104.400 Medications: Active Meds + DC'd Last 24 Hrs Megestrol Acetate 40 MG DAILY PO Acetaminophen/Butalbital/Caffeine 1 TAB Q4H PRN PRN PO Meclizine HCl 25 MG Q6H PRN PRN PO Enoxaparin Sodium 40 MG Q24H SUBQ Furosemide 20 MG QAM PO Famotidine 20 MG BID PO Meropenem 500 MG Q6H IV Sterile Water 10 ML Metformin HCl 500 MG C BK DIN PO Acetaminophen 650 MG Q4H PRN PRN PO Bisacodyl 10 MG DAILY PRN PRN PO Dextrose/Water 25 ML ASDIR PRN IV Glucagon 1 MG ASDIR PRN IM Insulin Human Lispro LOW DOSE SCALE ASDIR SUBQ Lactulose 30 ML DAILY PRN PRN PO (CKD) Magnesium Hydroxide 30 ML DAILY PRN PRN PO Ondansetron Base 4 MG Q4H PRN PRN SL Senna/Docusate Sodium 2 TAB DAILY PRN PRN PO Tramadol HCl 50 MG Q4H PRN PRN PO Physical Exam General appearance: alert, awake Psych: alert, normal affect HEENT: mucosal membranes moist, pupils reactive to light, sclera clear Neck: non-tender, supple, no carotid bruit, no JVD Cardiovascular: regular rate rhythm, S1/S2, no murmur Respiratory: aerating well Abdomen: soft, non-tender Functional Progress Functional progress: The data set between the solid lines has been imported from multidisciplinary team documentation. __ Functional Activity Admission Status Interim Status Toilet hygiene Partial/moderate (3) Partial/moderate (3) Toilet transfer Partial/moderate (3) Partial/moderate (3) Eating Setup or cleanup (5) Independent (6) Shower/bathing Substantial/max (2) Supervision/touch (4) Dressing upper body Supervision/touch (4) Setup or cleanup (5) Dressing lower body Substantial/max (2) Setup or cleanup (5) Transfer to/from bed to chair Partial/moderate (3) Independent (6) Wheel 50ft w/ 2 turns Supervision/touch (4) Independent (6) Wheel 150 ft Substantial/max (2) Independent (6) Walk 50 ft w/ 2 turns Partial/moderate (3) Independent (6) Walk 150 ft Partial/moderate (3) Independent (6) Four steps Independent (6) __ Results Findings/Data: Laboratory Tests: 10/15 10/14 10/14 10/14 0520 2029 1720 1150 Chemistry POC Glucose (74 - 106 MG/DL) 116 H 167 H 124 H 198 H Diagnosis, Assessment Plan Problem List/A P: 1. Uncontrolled type 2 diabetes mellitus with hyperglycemia 2. Debility Free Text A P: Plan - bilateral tympanic membrain normal, large amount of cerumen - recommend f/u pcp for cerumen removal - pain management - on Merrem - see treatment plan from other specialties - d/w pt, nurse Rehab attestation: Face to face exam completed. Treatment plan discussed with patient. Meets continued stay criteria. Agree with interdisciplinary treatment plan. [facility] 10/16/19 1222: Attestations Physician Attestation Agree w/findings plan: Agree with the findings and plan as documented by JADE Mora. at 1028 at 1228 RPT #:[id number] END OF REPORT [facility] 2019-10-15 10:49:00 [facility] Rehab Progress Note REPORT#:[id number] REPORT STATUS: Signed DATE:10/15/19 TIME: 1049 PATIENT: SEYMOUR SNOW UNIT #: [id number] ROOM/BED: [address] : 48 AGE: 69 SEX: M ATTEND: Darrick Benson ADM AUTHOR: Shola Cuba DO * ALL edits or amendments must be made on the electronic/computer document * Subjective Chief complaint: no acute event Objective General VS: Vital Signs: Date Time Temp Pulse Resp B/P B/P Pulse O2 O2 Flow FiO2 Mean Ox Delivery Rate 10/14 1044 107 119/75 89.4 94 Room air 10/14 0902 101 124/84 97.2 92 Room air 10/14 0901 95 108/84 92.1 93 Room air 10/14 0804 97.7 79 18 125/75 91.4 92 10/13 1936 98.6 90 20 129/74 92.1 94 Patient Weight Weight (lb): 230 Weight (oz): 2.6 Weight (kg): 104.400 Medications: Active Meds + DC'd Last 24 Hrs Megestrol Acetate 40 MG DAILY PO Acetaminophen/Butalbital/Caffeine 1 TAB Q4H PRN PRN PO Meclizine HCl 25 MG Q6H PRN PRN PO Enoxaparin Sodium 40 MG Q24H SUBQ Furosemide 20 MG QAM PO Famotidine 20 MG BID PO Meropenem 500 MG Q6H IV Sterile Water 10 ML Metformin HCl 500 MG C BK DIN PO Acetaminophen 650 MG Q4H PRN PRN PO Bisacodyl 10 MG DAILY PRN PRN PO Dextrose/Water 25 ML ASDIR PRN IV Glucagon 1 MG ASDIR PRN IM Insulin Human Lispro LOW DOSE SCALE ASDIR SUBQ Lactulose 30 ML DAILY PRN PRN PO (CKD) Magnesium Hydroxide 30 ML DAILY PRN PRN PO Ondansetron Base 4 MG Q4H PRN PRN SL Senna/Docusate Sodium 2 TAB DAILY PRN PRN PO Tramadol HCl 50 MG Q4H PRN PRN PO Physical Exam General appearance: no acute distress, pleasant Diagnosis, Assessment Plan Problem List/A P: 1. Uncontrolled type 2 diabetes mellitus with hyperglycemia 2. Debility Free Text A P: A- -see above and h/p for details P -appreciate help from others- medicine, ID -d/w staff -also see notes from nursing and therapists -continue same rehab plan Rehab attestation: Face to face exam completed. Treatment plan discussed with patient. Meets continued stay criteria. Agree with interdisciplinary treatment plan. at 1050 RPT #:[id number] END OF REPORT [facility] 2019-10-14 17:57:00 [facility] REPORT#:[id number] REPORT STATUS: Signed DATE:10/14/19 TIME: 1756 PATIENT: SEYMOUR SNOW UNIT #: [id number] [address] AGE: 69 SEX: M ATTEND: Darrick Benson ADM AUTHOR: Tabatha Erickson MD * ALL edits or amendments must be made on the electronic/computer document * Subjective Patient reports: No: complaints. Objective General VS/I O: Vital Signs: Date Time Temp Pulse Resp B/P B/P Pulse O2 O2 Flow FiO2 Mean Ox Delivery Rate 10/15 0739 98.2 93 18 130/77 94.3 90 10/14 1905 98.4 96 22 129/86 100.7 93 Room air 10/14 1732 95 Nasal 1.883563 cannula Patient Weight Weight (lb): 230 Weight (oz): 2.6 Weight (kg): 104.400 Medications: Active Meds + DC'd Last 24 Hrs Megestrol Acetate 40 MG DAILY PO Acetaminophen/Butalbital/Caffeine 1 TAB Q4H PRN PRN PO Meclizine HCl 25 MG Q6H PRN PRN PO Enoxaparin Sodium 40 MG Q24H SUBQ Furosemide 20 MG QAM PO Famotidine 20 MG BID PO Meropenem 500 MG Q6H IV Sterile Water 10 ML Metformin HCl 500 MG C BK DIN PO Acetaminophen 650 MG Q4H PRN PRN PO Bisacodyl 10 MG DAILY PRN PRN PO Dextrose/Water 25 ML ASDIR PRN IV Glucagon 1 MG ASDIR PRN IM Insulin Human Lispro LOW DOSE SCALE ASDIR SUBQ Lactulose 30 ML DAILY PRN PRN PO (CKD) Magnesium Hydroxide 30 ML DAILY PRN PRN PO Ondansetron Base 4 MG Q4H PRN PRN SL Senna/Docusate Sodium 2 TAB DAILY PRN PRN PO Tramadol HCl 50 MG Q4H PRN PRN PO Physical Exam General appearance: alert, awake Head/Eyes: atraumatic, normocephalic Neck: no JVD Cardiovascular: normal heart sounds, regular rate rhythm, no murmur Respiratory: aerating well, clear to auscultation, no distress Abdomen: incision looks clean, wound vac in place Extremities: no cyanosis, no edema Neuro/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: alert, oriented X 3, normal speech Results Findings/Data: Laboratory Tests 10/15 10/15 10/14 10/14 1126 0520 2028 1720 Chemistry POC Glucose (74 - 106 MG/DL) 176 H 116 H 167 H 124 H Diagnosis, Assessment Plan Free Text DxA P Notes Free text DxA P notes: Mr. Jayla Sarah is a 69 year old male with: #Cholecystitis --Wound VAC in place and continues to drain --Continue meropenem IV per infectious disease --Will need repeat CT per infectious disease recommendations #Elevated LFTs -improved #DMII with hyperglycemia--> A1c 9.5 --continues on metformin + SSI #HTN --blood pressure controlled off medications #HLD: -->LDL 101 --recommend healthy dietary changes #Neck pain--> XR shows osteoarthritis --pain control --obtain CT neck #Pleural effusion--> possibly inflammatory 2/2 cholecystitis infection --discussed with Dr. Perkins and he plans on repeating CT chest on Friday so will see what it shows and possibly tap the effusion depending on results at 1227 RPT #:[id number] END OF REPORT [facility] 2019-10-14 14:30:00 [facility] Infectious Dis. Progress Note REPORT#:[id number] REPORT STATUS: Signed DATE:10/14/19 TIME: 1430 PATIENT: JAYLA MAINSEYMOUR VELASQUEZ UNIT #: [id number] ROOM/BED: [address] : [address] AGE: 69 SEX: M ATTEND: Darrick Benson ADM AUTHOR: Martín Denis DO * ALL edits or amendments must be made on the electronic/computer document * Subjective Chief Complaint: patient with no issues Objective General VS/I O: Last Documented: Result Date Time Pulse Ox 94 10/13 1017 B/P 101/68 10/13 1017 B/P Mean 78.9 10/13 1017 O2 Delivery Room air 10/13 1017 Pulse 107 10/13 1017 Temp 36.5 10/13 0716 Resp 20 10/13 0716 O2 Flow Rate 1.869304 10/12 2256 Vital Signs Date Temp Pulse Resp B/P B/P Mean Pulse Ox FiO2 10/12-10/13 36.5-36.8 91-109 18-20 101-147/68-94 78.9-112.0 90-95 24 hour I O ending at 0700: 10/13 0700 10/12 1900 Intake Total 125 500 Output Total 300 Balance -175 500 Intake, Oral 125 500 Number 1 Bowel Movements Number Voids 1 3 Output, Urine 300 Patient Weight Weight (lb): 230 Weight (oz): 2.6 Weight (kg): 104.400 Physical Exam General appearance: chronically ill appearing Cardiovascular: normal heart sounds, regular rate rhythm Respiratory: decreased breath sounds at bases Abdomen: non-tender, soft, no distention, RUQ inciosion dehisced site with wound vac + percutan drain Genitourinary: no flank pain Extremities: no edema Skin: no rash Diagnosis, Assessment Plan Free Text A P: 1. Abscess cont ct tomorrow 2. Wound dehiscence s/p wound vac 3. pl effusion follow up Recs cont merrem ct tomorrow at 1430 RPT #:[id number] END OF REPORT [facility] 2019-10-14 13:00:00 [facility]) Rehab Progress Note REPORT#:[id number] REPORT STATUS: Signed DATE:10/14/19 TIME: 1300 PATIENT: MYA SNOWNCIO UNIT #: [id number] ROOM/BED: [address] : 48 AGE: 69 SEX: M ATTEND: Darrick Benson ADM AUTHOR: Shola Cuba DO * ALL edits or amendments must be made on the electronic/computer document * Subjective Chief complaint: unchanged so far Objective General VS: Vital Signs: Date Time Temp Pulse Resp B/P B/P Pulse O2 O2 Flow FiO2 Mean Ox Delivery Rate 10/13 1017 107 101/68 78.9 94 Room air 10/13 1014 105 121/80 93.2 94 Room air 10/13 0918 107 147/94 112.0 91 Room air 10/13 0902 109 143/93 109.5 92 Room air 10/13 0823 102 125/76 92.3 90 Room air 10/13 0716 97.7 92 20 122/74 90.1 92 Room air 10/12 2256 Nasal 1.150583 cannula 10/12 1908 98.2 91 18 129/78 95.4 95 Room air Patient Weight Weight (lb): 230 Weight (oz): 2.6 Weight (kg): 104.400 Medications: Active Meds + DC'd Last 24 Hrs Megestrol Acetate 40 MG DAILY PO Acetaminophen/Butalbital/Caffeine 1 TAB Q4H PRN PRN PO Meclizine HCl 25 MG Q6H PRN PRN PO Enoxaparin Sodium 40 MG Q24H SUBQ Furosemide 20 MG QAM PO Famotidine 20 MG BID PO Meropenem 500 MG Q6H IV Sterile Water 10 ML Metformin HCl 500 MG C BK DIN PO Acetaminophen 650 MG Q4H PRN PRN PO Bisacodyl 10 MG DAILY PRN PRN PO Dextrose/Water 25 ML ASDIR PRN IV Glucagon 1 MG ASDIR PRN IM Insulin Human Lispro LOW DOSE SCALE ASDIR SUBQ Lactulose 30 ML DAILY PRN PRN PO (CKD) Magnesium Hydroxide 30 ML DAILY PRN PRN PO Ondansetron Base 4 MG Q4H PRN PRN SL Senna/Docusate Sodium 2 TAB DAILY PRN PRN PO Tramadol HCl 50 MG Q4H PRN PRN PO Physical Exam General appearance: awake, no acute distress, pleasant Diagnosis, Assessment Plan Problem List/A P: 1. Uncontrolled type 2 diabetes mellitus with hyperglycemia 2. Debility Free Text A P: A- -see above and h/p for details P -appreciate help from others- medicine, ID -d/w staff -also see notes from nursing and therapists -continue same rehab plan Rehab attestation: Face to face exam completed. Treatment plan discussed with patient. Meets continued stay criteria. Agree with interdisciplinary treatment plan. at 1300 RPT #:[id number] END OF REPORT [facility] 2019-10-13 14:41:00 [facility]) Infectious Dis. Progress Note REPORT#:[id number] REPORT STATUS: Signed DATE:10/13/19 TIME: 1440 PATIENT: MYA SNOWNCIO UNIT #: [id number] ROOM/BED: [address] : 48 AGE: 69 SEX: M ATTEND: Darrick Benson ADM AUTHOR: Martín Denis DO * ALL edits or amendments must be made on the electronic/computer document * Subjective Chief Complaint: patient resting in bed Objective General VS/I O: Last Documented: Result Date Time Pulse Ox 94 10/12 1129 B/P 106/70 10/12 1129 B/P Mean 82.0 10/12 1129 O2 Delivery Room air 10/12 1129 Pulse 117 10/12 1129 O2 Flow Rate 2.551661 10/12 0930 Temp 36.5 10/12 0612 Resp 20 10/12 0612 Vital Signs Date Temp Pulse Resp B/P B/P Mean Pulse Ox FiO2 10/11-10/12 36.5-36.7 86-117 20 106-134/70-91 82.0-105.2 91-95 24 hour I O ending at 0700: 10/12 0700 10/11 1900 Intake Total 125 Output Total Balance 125 Intake, Oral 125 Number 0 Bowel Movements Number 0 Incontinent Voids Number Voids 1 5 Patient 104.4 kg Weight Patient Weight Weight (lb): 230 Weight (oz): 2.6 Weight (kg): 104.400 Physical Exam General appearance: chronically ill appearing Cardiovascular: normal heart sounds, regular rate rhythm Respiratory: decreased breath sounds at bases Abdomen: non-tender, soft, no distention, RUQ inciosion dehisced site with wound vac + percutan drain Genitourinary: no flank pain Extremities: no edema Skin: no rash Diagnosis, Assessment Plan Free Text A P: 1. Abscess cont ct on 2. Wound dehiscence s/p wound vac 3. pl effusion follow up Recs cont merrem ct on the at 1443 [facility] #:[id number] END OF REPORT [facility] 2019-10-13 08:37:00 ([facility] Rehab Progress Note REPORT#:[id number] REPORT STATUS: Signed DATE:10/13/19 TIME: 0837 PATIENT: JAYLA SARAHSEYMOUR UNIT #: [id number] ROOM/BED: [address] : 48 AGE: 69 SEX: M ATTEND: Darrick Benson ADM AUTHOR: Shola Cuba DO * ALL edits or amendments must be made on the electronic/computer document * Subjective Chief complaint: doing about the same; in therapy now Objective General VS: Vital Signs: Date Time Temp Pulse Resp B/P B/P Pulse O2 O2 Flow FiO2 Mean Ox Delivery Rate 10/12 0821 105 108/74 85.4 92 Room air 10/12 0818 102 134/91 105.2 92 Room air 10/12 0803 95 Nasal 2.867374 cannula 10/12 0612 97.7 86 20 122/79 93.4 95 Room air 10/11 2253 Nasal 1.460336 cannula 10/11 2050 94 Nasal 3.082060 cannula 10/11 1923 98.1 93 20 128/83 97.9 93 Room air 10/11 1348 107 105/75 84.8 93 Room air 10/11 1346 106 111/74 86.1 95 Room air 10/11 1341 102 136/89 104.4 92 Room air 10/11 1230 88 128/75 92 10/11 1135 95 Nasal 2.147481 cannula 10/11 1050 101 126/84 98 10/11 1038 102 137/90 106 10/11 1030 112 150/106 120 10/11 1029 117 163/115 131 95 1.851686 10/11 0917 107 136/89 104.3 93 Nasal 1.273710 cannula 10/11 0845 103 149/96 113.4 95 Patient Weight Weight (lb): 230 Weight (oz): 2.6 Weight (kg): 104.400 Medications: Active Meds + DC'd Last 24 Hrs Megestrol Acetate 40 MG DAILY PO Acetaminophen/Butalbital/Caffeine 1 TAB Q4H PRN PRN PO Meclizine HCl 25 MG Q6H PRN PRN PO Enoxaparin Sodium 40 MG Q24H SUBQ Furosemide 20 MG QAM PO Famotidine 20 MG BID PO Meropenem 500 MG Q6H IV Sterile Water 10 ML Metformin HCl 500 MG C BK DIN PO Acetaminophen 650 MG Q4H PRN PRN PO Bisacodyl 10 MG DAILY PRN PRN PO Dextrose/Water 25 ML ASDIR PRN IV Glucagon 1 MG ASDIR PRN IM Insulin Human Lispro LOW DOSE SCALE ASDIR SUBQ Lactulose 30 ML DAILY PRN PRN PO (CKD) Magnesium Hydroxide 30 ML DAILY PRN PRN PO Ondansetron Base 4 MG Q4H PRN PRN SL Senna/Docusate Sodium 2 TAB DAILY PRN PRN PO Tramadol HCl 50 MG Q4H PRN PRN PO Physical Exam General appearance: alert, awake, no acute distress Diagnosis, Assessment Plan Problem List/A P: 1. Uncontrolled type 2 diabetes mellitus with hyperglycemia 2. Debility Free Text A P: A- -see above and h/p for details P -appreciate help from others- medicine, ID -d/w staff -also see notes from nursing and therapists -continue same rehab plan Rehab attestation: Face to face exam completed. Treatment plan discussed with patient. Meets continued stay criteria. Agree with interdisciplinary treatment plan. at 0837 RPT #:[id number] END OF REPORT [facility] 2019-10-12 21:21:00 [facility] REPORT#:[id number] REPORT STATUS: Signed DATE:10/12/19 TIME: 2120 PATIENT: SEYMOUR SNOW UNIT #: [id number] ROOM/BED: [address] : 48 AGE: 69 SEX: M ATTEND: Darrick Benson ADM AUTHOR: Efren Kate MD * ALL edits or amendments must be made on the electronic/computer document * Subjective Chief Complaint: Neck pain Free Text Subj Notes Free Subj Notes: No acute events overnight. Patient still complaining of neck pain Objective General VS/I O: Vital Signs: Date Time Temp Pulse Resp B/P B/P Pulse O2 O2 Flow FiO2 Mean Ox Delivery Rate 10/11 2050 94 Nasal 3.052444 cannula 10/11 192 36.7 93 20 128/83 97.9 93 Room air 10/11 1348 107 105/75 84.8 93 Room air 10/11 1346 106 111/74 86.1 95 Room air 10/11 1341 102 136/89 104.4 92 Room air 10/11 1230 88 128/75 92 10/11 1135 95 Nasal 2.841108 cannula 10/11 1050 101 126/84 98 10/11 1038 102 137/90 106 10/11 1030 112 150/106 120 10/11 1029 117 163/115 131 95 1.710566 10/11 0917 107 136/89 104.3 93 Nasal 1.909861 cannula 10/11 0845 103 149/96 113.4 95 10/11 0837 100 134/96 108.8 92 Nasal 3.360834 cannula 10/11 0645 36.4 85 18 122/75 90.6 94 Nasal cannula 24 hour I O ending at 0700: 10/11 0700 10/10 1900 Intake Total 400 Output Total Balance 400 Intake, Oral 400 Number 0 1 Bowel Movements Number 0 Incontinent Voids Number Voids 4 2 Patient 104.4 kg Weight Weight Bed scale Measurement Method Patient Weight Weight (lb): 230 Weight (oz): 2.6 Weight (kg): 104.400 Physical Exam General appearance: alert, awake, oriented, no acute distress Head/Eyes: atraumatic, normocephalic Neck: no JVD Cardiovascular: normal heart sounds, regular rate rhythm, no murmur Respiratory: aerating well, clear to auscultation, no distress Abdomen: incision looks clean, wound vac in place Extremities: no cyanosis, no edema Neuro/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: alert, oriented X 3, normal speech Diagnosis, Assessment Plan Free Text DxA P Notes Free text DxA P notes: Mr. Jayla Sarah is a 69 year old male with: #Cholecystitis --Wound VAC in place and continues to drain --Continue meropenem IV per infectious disease --Will need repeat CT per infectious disease recommendations #Elevated LFTs -improved #DMII with hyperglycemia--> A1c 9.5 --continues on metformin + SSI #HTN --blood pressure controlled off medications #HLD: -->LDL 101 --recommend healthy dietary changes #Neck pain--> XR shows osteoarthritis --pain control --obtain CT neck #Pleural effusion--> possibly inflammatory 2/2 cholecystitis infection --discussed with Dr. Perkins and he plans on repeating CT chest on Friday so will see what it shows and possibly tap the effusion depending on results at 2123 RPT #:[id number] END OF REPORT [facility] 2019-10-12 13:52:00 ([facility]) Rehab Progress Note REPORT#:[id number] REPORT STATUS: Signed DATE:10/12/19 TIME: 1352 PATIENT: SEYMOUR SNOW UNIT #: [id number] ROOM/BED: [address] : 48 AGE: 69 SEX: M ATTEND: Darrick Benson ADM AUTHOR: Shola Cuba DO * ALL edits or amendments must be made on the electronic/computer document * Subjective Chief complaint: no acute problem Objective General VS: Vital Signs: Date Time Temp Pulse Resp B/P B/P Pulse O2 O2 Flow FiO2 Mean Ox Delivery Rate 10/11 1348 107 105/75 84.8 93 Room air 10/11 1346 106 111/74 86.1 95 Room air 10/11 1341 102 136/89 104.4 92 Room air 10/11 1230 88 128/75 92 10/11 1135 95 Nasal 2.574321 cannula 10/11 0917 107 136/89 104.3 93 Nasal 1.110252 cannula 10/11 0845 103 149/96 113.4 95 10/11 0837 100 134/96 108.8 92 Nasal 3.334974 cannula 10/11 0645 97.5 85 18 122/75 90.6 94 Nasal cannula 10/11 2007 Nasal 3.361423 cannula 10/10 195 98.4 97 20 126/84 97.9 93 Nasal cannula Patient Weight Weight (lb): 230 Weight (oz): 2.6 Weight (kg): 104.400 Medications: Active Meds + DC'd Last 24 Hrs Acetaminophen/Butalbital/Caffeine 1 TAB Q4H PRN PRN PO Meclizine HCl 25 MG Q6H PRN PRN PO Enoxaparin Sodium 40 MG Q24H SUBQ Furosemide 20 MG QAM PO Famotidine 20 MG BID PO Meropenem 500 MG Q6H IV Sterile Water 10 ML Metformin HCl 500 MG C BK DIN PO Acetaminophen 650 MG Q4H PRN PRN PO Bisacodyl 10 MG DAILY PRN PRN PO Dextrose/Water 25 ML ASDIR PRN IV Glucagon 1 MG ASDIR PRN IM Insulin Human Lispro LOW DOSE SCALE ASDIR SUBQ Lactulose 30 ML DAILY PRN PRN PO (CKD) Magnesium Hydroxide 30 ML DAILY PRN PRN PO Ondansetron Base 4 MG Q4H PRN PRN SL Senna/Docusate Sodium 2 TAB DAILY PRN PRN PO Tramadol HCl 50 MG Q4H PRN PRN PO Physical Exam General appearance: alert, awake, no acute distress, pleasant Diagnosis, Assessment Plan Problem List/A P: 1. Uncontrolled type 2 diabetes mellitus with hyperglycemia 2. Debility Free Text A P: A- -see above and h/p for details P -appreciate help from others- medicine, ID -d/w staff -also see notes from nursing and therapists -continue same rehab plan Rehab attestation: Face to face exam completed. Treatment plan discussed with patient. Meets continued stay criteria. Agree with interdisciplinary treatment plan. at 1352 RPT #:[id number] END OF REPORT [facility] 2019-10-12 12:32:00 [facility]) Infectious Dis. Progress Note REPORT#:[id number] REPORT STATUS: Signed DATE:10/12/19 TIME: 1232 PATIENT: SEYMOUR SNOW UNIT #: [id number] ROOM/BED: [address] : 48 AGE: 69 SEX: M ATTEND: Darrick Benson ADM AUTHOR: Martín Denis DO * ALL edits or amendments must be made on the electronic/computer document * Subjective Chief Complaint: patient with no acute issues Objective General VS/I O: Last Documented: Result Date Time Pulse Ox 95 10/11 1135 O2 Delivery Nasal cannula 10/11 113 O2 Flow Rate 2.098427 10/11 1135 B/P 136/89 10/11 0917 B/P Mean 104.3 10/11 09 Pulse 107 10/11 0917 Temp 36.4 10/11 0645 Resp 18 10/11 0645 Vital Signs Date Temp Pulse Resp B/P B/P Mean Pulse Ox FiO2 10/10-10/11 36.4-36.9 85-107 18-20 122-149/75-96 90.6-113.4 92-95 24 hour I O ending at 0700: 10/11 0700 10/10 1900 Intake Total 400 Output Total Balance 400 Intake, Oral 400 Number 0 1 Bowel Movements Number 0 Incontinent Voids Number Voids 4 2 Patient 104.4 kg Weight Weight Bed scale Measurement Method Patient Weight Weight (lb): 230 Weight (oz): 2.6 Weight (kg): 104.400 Physical Exam General appearance: chronically ill appearing Cardiovascular: normal heart sounds, regular rate rhythm Respiratory: decreased breath sounds at bases Abdomen: non-tender, soft, no distention, RUQ inciosion dehisced site with wound vac + percutan drain Genitourinary: no flank pain Extremities: no edema Skin: no rash Diagnosis, Assessment Plan Free Text A P: 1. Abscess cont merrem clinically better 2. Wound dehiscence s/p wound vac 3. Leukocytosis resolved Recs cont merrem ct on the at 1236 RPT #:[id number] END OF REPORT [facility] 2019-10-12 09:17:00 ([facility]) Rehab Team Conference REPORT#:[id number] REPORT STATUS: Signed DATE:10/12/19 TIME: 916 PATIENT: SEYMOUR SNOW UNIT #: [id number] ROOM/BED: [address] : 48 AGE: 69 SEX: M ATTEND: Darrick Benson ADM AUTHOR: Darrick Benson * ALL edits or amendments must be made on the electronic/computer document * Rehabilitation Team Conference Weekly Team Conference Team conf information: Date of conference: 10/12/19 Conference type: Initial Conference scribe: Yamileth Busby PT Interdisciplinary Team Meeting Participants: Title Name MD Darrick Benson MD RN Nicol Mike, RN EDITH Forbes PT OT Eliza Garza OT CM/SW Stephanie Paniagua RN Staff Taylor Cathy, OT Attendee Name Credentials 1 MATTEO BYERS RN 2 3 4 5 6 7 Type Admission total Interim total Change Self care 21 29 8 Transfer 20 26 6 Mobility 14 32 18 Wheelchair distance: Mobility description: Bowel continence admission rating: Always continent Bladder continence admission rating: Always continent Bowel and bladder team conference update: CONT OF B B JULIAN team conference update: CONTACT ISOLATION PT team conference update: >Patient was progressing well w/ functional abilities in PT until today w/ c/o "10" /10 headache neck pain >Seen in AM w/ patient just back to bed from toilet w/ Padmaja PCT, disconnected wound vac tube found on floor, nurse Marielle reconnected later >Patient not feeling well today, refusing PT activities, except for manual therapy w/ Biofreeze to C/S paraspinals upper trapezius mm, while on Right side-lying >On 3LO2 per NC today, had been on RA since IRF eval > CARE TOOLS from 10/09/19 >Cont POC, progress to DC goals, VS SPO2 checks OT team conference update: Pt making progress toward ADL goals, wearing oxygen at times due to desats to 88 % on room air. Require assist with wound vac. Anticipate pt will achieve LT goals of independence with self care tasks. ST team conference update: NO SKIVER HAND WARRANTED CM or SW team conference update: Lives alone. Son lives at home but is away working. Pt reports will live with other son in a trailer and 5 steps Other discipline update 1: Other discipline update 2: Other discipline update 3: Patient's identified discharge goal: RN: I want to get stronger as fast as I can so I can go home. OT: "I want to be independent for myself." PT: "Be able to walk, go home, be pain-free, work again if I can" Team Goal Week 1: BRP with RW with all staff Eating discharge goal: Independent (6) Shower/bathe self discharge goal: Independent (6) Upper body dressing discharge goal: Independent (6) Lower body dressing discharge goal: Independent (6) Chair/bed to chair transfer discharge goal: Independent (6) Transfer on/off toilet or commode discharge goal: Setup/clean-up only (5) Walking 50 feet with two turns discharge goal: Independent (6) Walking 150 feet discharge goal: Independent (6) Four steps discharge goal: Independent (6) Twelve steps discharge goal: Independent (6) Pauline 150 feet discharge goal: Independent (6) Eating discharge goal: Independent (6) Shower/bathe self discharge goal: Independent (6) Upper body dressing discharge goal: Independent (6) Lower body dressing discharge goal: Independent (6) Chair/bed to chair transfer discharge goal: Independent (6) Transfer on/off toilet or commode discharge goal: Setup/clean-up only (5) Walking 50 feet with two turns discharge goal: Independent (6) Walking 150 feet discharge goal: Independent (6) 4 steps discharge goal: Independent (6) 12 steps discharge goal: Independent (6) Pauline 150 feet discharge goal: Independent (6) Goal 1 - Bowel function: Pt will have daily continent BM while in rehab Goal 2 - Bladder function: Pt will remain continent of bladder while in rehab Nursing goal 3: Pt will participate in all scheduled rehab activities Nursing goal 4: Pt will remain free of falls during this rehab stay Nursing goal 5: Barriers and strategies: Wound vac: pt and family education Tachycardia: monitor Pain R abdomen 10/26 and headache 02/25: medication Estimated length of stay in days: 14 Anticipated discharge date: 10/20/19 Discharge date adjustment comment: Identified financial and/or community resource needs: Family/Caregiver training days: Family training with PT and OT with son Sumanth) [place] day (DATE): 10/19/19 Expected discharge destination: Home Anticipated services upon discharge: Home health, Nursing, Occupational therapy, Physical therapy Anticipated discharge equipment: Shower chair, Rollator vs RW Impairment group: debility Etiologic diagnosis: debility after wound infection Review of comorbidities: see RIANNA HPI MD Review/Recommendations Attestation: This interdisciplinary team conference was led by me and I concur with all decisions made during the team conference and revisions to the individualized overall plan of care. IRF cont stay criteria Patient demonstrates ongoing requirement for an intensive level of rehab services and an ongoing interdisciplinary team approach. at 0917 RPT #:[id number] END OF REPORT [facility] 2019-10-11 15:13:00 ([facility]) Rehab Progress Note REPORT#:[id number] REPORT STATUS: Signed DATE:10/11/19 TIME: 151 PATIENT: SEYMOUR SNOW UNIT #: [id number] ROOM/BED: [address] : 48 AGE: 69 SEX: M ATTEND: KelleyDarrick Lynn ADM AUTHOR: Shola Cuba DO * ALL edits or amendments must be made on the electronic/computer document * Subjective Chief complaint: no new event Objective General VS: Vital Signs: Date Time Temp Pulse Resp B/P B/P Pulse O2 O2 Flow FiO2 Mean Ox Delivery Rate 10/10 1204 98.8 98 131/89 103.2 92 Nasal 3.832220 cannula 10/10 1152 103 118/73 88.2 93 Nasal 3.229305 cannula 10/10 1125 88 10/10 1014 112 118/81 93.2 91 Nasal 3.426748 cannula 10/10 1013 111 135/94 107.5 91 Nasal 3.466506 cannula 10/10 0959 106 127/86 100.1 91 Nasal 3.791366 cannula 10/10 0951 108 138/82 100.7 89 Room air 10/10 0805 98.6 99 20 164/75 0.0 93 Room air 10/10 0526 86 93 Nasal 2.923528 cannula 10/09 2014 Nasal 2.060677 cannula 10/09 2013 98.6 96 15 139/84 102.2 93 Nasal 2.248469 cannula 10/09 2010 96 87 Room air Patient Weight Weight (lb): 251 Weight (oz): 8.44 Weight (kg): 114.091 Medications: Active Meds + DC'd Last 24 Hrs Meclizine HCl 25 MG Q6H PRN PRN PO Enoxaparin Sodium 40 MG Q24H SUBQ Furosemide 20 MG QAM PO Famotidine 20 MG BID PO Meropenem 500 MG Q6H IV Sterile Water 10 ML Metformin HCl 500 MG C BK DIN PO Acetaminophen 650 MG Q4H PRN PRN PO Bisacodyl 10 MG DAILY PRN PRN PO Dextrose/Water 25 ML ASDIR PRN IV Glucagon 1 MG ASDIR PRN IM Insulin Human Lispro LOW DOSE SCALE ASDIR SUBQ Lactulose 30 ML DAILY PRN PRN PO (CKD) Magnesium Hydroxide 30 ML DAILY PRN PRN PO Ondansetron Base 4 MG Q4H PRN PRN SL Senna/Docusate Sodium 2 TAB DAILY PRN PRN PO Tramadol HCl 50 MG Q4H PRN PRN PO Physical Exam General appearance: awake, oriented, no acute distress Diagnosis, Assessment Plan Problem List/A P: 1. Uncontrolled type 2 diabetes mellitus with hyperglycemia 2. Debility Free Text A P: A- -see above and h/p for details P -appreciate help from others- medicine, ID -d/w staff -also see notes from nursing and therapists -continue same rehab plan Rehab attestation: Face to face exam completed. Treatment plan discussed with patient. Meets continued stay criteria. Agree with interdisciplinary treatment plan. at 1514 RPT #:[id number] END OF REPORT [facility] 2019-10-11 14:22:00 [facility] REPORT#:[id number] REPORT STATUS: Signed DATE:10/11/19 TIME: 1421 PATIENT: SEYMOUR SNOW UNIT #: [id number] ROOM/BED: [address] : 48 AGE: 69 SEX: M ATTEND: Darrick Benson ADM AUTHOR: Efren Kate MD * ALL edits or amendments must be made on the electronic/computer document * Subjective Chief Complaint: Neck pain Free Text Subj Notes Free Subj Notes: No acute events overnight. Patient complaining of neck pain Objective General VS/I O: Vital Signs: Date Time Temp Pulse Resp B/P B/P Pulse O2 O2 Flow FiO2 Mean Ox Delivery Rate 10/10 1204 37.1 98 131/89 103.2 92 Nasal 3.071452 cannula 10/10 1152 103 118/73 88.2 93 Nasal 3.513713 cannula 10/10 1125 88 10/10 1014 112 118/81 93.2 91 Nasal 3.746869 cannula 10/10 1013 111 135/94 107.5 91 Nasal 3.408291 cannula 10/10 0959 106 127/86 100.1 91 Nasal 3.757990 cannula 10/10 0951 108 138/82 100.7 89 Room air 10/10 0805 37.0 99 20 164/75 0.0 93 Room air 10/10 0526 86 93 Nasal 2.086254 cannula 10/09 2014 Nasal 2.945584 cannula 10/09 2013 37.0 96 15 139/84 102.2 93 Nasal 2.200725 cannula 10/09 2010 96 87 Room air 24 hour I O ending at 0700: 10/10 0700 10/09 1900 Intake Total 350 Output Total 300 Balance 50 Intake, Oral 350 Number 0 1 Bowel Movements Number Voids 2 4 Output, Urine 300 Patient Weight Weight (lb): 251 Weight (oz): 8.44 Weight (kg): 114.091 Physical Exam General appearance: alert, awake, oriented, no acute distress Head/Eyes: atraumatic, normocephalic Neck: no JVD Cardiovascular: normal heart sounds, regular rate rhythm, no murmur Respiratory: aerating well, clear to auscultation, no distress Abdomen: incision looks clean, wound vac in place Extremities: no cyanosis, no edema Neuro/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: alert, oriented X 3, normal speech Diagnosis, Assessment Plan Free Text DxA P Notes Free text DxA P notes: Mr. Jayla Sarah is a 69 year old male with: #Cholecystitis --Wound VAC in place and continues to drain --Continue meropenem IV per infectious disease --Will need repeat CT per infectious disease recommendations #Elevated LFTs -improved #DMII with hyperglycemia--> A1c 9.5 --continues on metformin + SSI #HTN --blood pressure controlled off medications #HLD: -->LDL 101 --recommend healthy dietary changes #Neck pain--> XR shows osteoarthritis --pain control at 1429 [facility] #:[id number] END OF REPORT [facility] 2019-10-11 12:40:00 [facility] Infectious Dis. Progress Note REPORT#:[id number] REPORT STATUS: Signed DATE:10/11/19 TIME: 1240 PATIENT: SEYMOUR SNOW UNIT #: [id number] ROOM/BED: [address] : [birth year] AGE: 69 SEX: M ATTEND: Darrick Benson ADM AUTHOR: Martín Denis DO * ALL edits or amendments must be made on the electronic/computer document * Subjective Chief Complaint: patient resting in bed Objective General VS/I O: Last Documented: Result Date Time Pulse Ox 92 10/10 1204 B/P 131/89 10/10 1204 B/P Mean 103.2 10/10 1204 O2 Delivery Nasal cannula 10/10 1204 O2 Flow Rate 3.350421 10/10 1204 Temp 37.1 10/10 1204 Pulse 98 10/10 1204 Resp 20 10/10 0805 Vital Signs Date Temp Pulse Resp B/P B/P Mean Pulse Ox FiO2 10/09-10/10 37.0-37.1 86-112 15- 118-164/73-94 0.0-107.5 87-93 24 hour I O ending at 0700: 10/10 0700 10/09 1900 Intake Total 350 Output Total 300 Balance 50 Intake, Oral 350 Number 0 1 Bowel Movements Number Voids 2 4 Output, Urine 300 Patient Weight Weight (lb): 251 Weight (oz): 8.44 Weight (kg): 114.091 Physical Exam General appearance: chronically ill appearing Cardiovascular: normal heart sounds, regular rate rhythm Respiratory: decreased breath sounds at bases Abdomen: non-tender, soft, no distention, RUQ inciosion dehisced site with wound vac + percutan drain Genitourinary: no flank pain Extremities: no edema Skin: no rash Diagnosis, Assessment Plan Free Text A P: 1. Abscess cont merrem has vac repeat ct in future 2. Wound dehiscence s/p wound vac 3. Leukocytosis resolved Recs cont merrem will need scan in [facility] ([facility]3] for duration at 1242 RPT #:[id number] END OF REPORT [facility] 2019-10-10 11:49:00 [facility] Hospitalist Progress Note REPORT#:[id number] REPORT STATUS: Signed DATE:10/10/19 TIME: 1149 PATIENT: SEYMOUR SNOW UNIT #: [id number] ROOM/BED: 6622-A : 48 AGE: 69 SEX: M ATTEND: KelleyDarrick Shane ADM AUTHOR: Lizzy Duke MD * ALL edits or amendments must be made on the electronic/computer document * Subjective Chief Complaint: Patient planes of mild abdominal pain but states that is improving. Objective General VS/I O: Vital Signs: Date Time Temp Pulse Resp B/P B/P Pulse O2 O2 Flow FiO2 Mean Ox Delivery Rate 10/10 923 92 93 Nasal 2.185951 cannula 10/09 09 94 89 Room air 10/09 0756 97.7 90 20 139/77 97.7 89 Room air 10/08 1929 98.1 92 17 144/88 106.6 92 Room air 24 hour I O ending at 0700: 10/09 0700 10/08 1900 Intake Total 360 Output Total Balance 360 Intake, Oral 360 Number 1 Bowel Movements Number Voids 3 Patient Weight Weight (lb): 251 Weight (oz): 8.44 Weight (kg): 114.091 Medications: Active Meds + DC'd Last 24 Hrs Enoxaparin Sodium 40 MG Q24H SUBQ Furosemide 20 MG QAM PO Famotidine 20 MG BID PO Meropenem 500 MG Q6H IV Sterile Water 10 ML Metformin HCl 500 MG C BK DIN PO Acetaminophen 650 MG Q4H PRN PRN PO Bisacodyl 10 MG DAILY PRN PRN PO Dextrose/Water 25 ML ASDIR PRN IV Glucagon 1 MG ASDIR PRN IM Insulin Human Lispro LOW DOSE SCALE ASDIR SUBQ Lactulose 30 ML DAILY PRN PRN PO (CKD) Magnesium Hydroxide 30 ML DAILY PRN PRN PO Ondansetron Base 4 MG Q4H PRN PRN SL Senna/Docusate Sodium 2 TAB DAILY PRN PRN PO Tramadol HCl 50 MG Q4H PRN PRN PO Results Findings/Data: Laboratory Tests 10/09 10/09 10/08 10/08 1051 0535 2044 1642 Chemistry POC Glucose (74 - 106 MG/DL) 156 H 154 H 121 H 135 H Free Text Obj Notes Free Text Obj Notes: General-no acute distress HEENT-pupils equal regular reactive to light and accommodation, extraocular muscle intact, anicteric sclera Neck exam-supple, no thyromegaly, no JVD Respiratory exam-clear to auscultation bilaterally, no wheezes rhonchi rales appreciated Cardiovascular exam-regular rate and rhythm, normal S1-S2, no JVD appreciated Abdominal exam-nontender nondistended normoactive bowel sounds Extremities-strength 5 out of 5 and equal bilaterally, 2+ pulses bilaterally Neurological exam-AAO x3, cranial nerves II through XII intact, no focal deficits Psych exam-normal affect Diagnosis, Assessment Plan Free Text DxA P Notes Free text DxA P notes: #Cholecystitis -pt was in rehab and readmitted for open cholecystetomy with developing abscess -VARUN s/p lap>open mag(09/24) -CT abd/pelv 09/27 with post op changes, no discrete defined fluid collection -CTA chest with no evidence of pulmonary embolism -drain removed by GS, pt to f/u with GS in clinic 10/08/19 -repeat CT abd/pelvis 10/02 with developing abscess in gallbladder fossa -Wound VAC in place and continues to drain. Continue meropenem IV per infectious disease # Small right pleural effusion resolved -continue low dose lasix #Elevated LFTs -improved #T2DM: hyperglycemic; A1c 9.5 -continues on metformin, continue PRN SSI #HTN -continue losartan #Obesity: BMI > 30 -weight loss counseling #HLD: -LDL 101 -recommend healthy dietary changes #Chest pain resolved -Cardiac enzymes negative -EKG NSR #DVT Prophylaxis -Lovenox DISPO: We will continue to follow with you thank you at 1150 RPT #:[id number] END OF REPORT [facility] 2019-10-10 09:50:00 [facility] Rehab Progress Note REPORT#:[id number] REPORT STATUS: Signed DATE:10/10/19 TIME: 0950 PATIENT: SEYMOUR SNOW UNIT #: [id number] ROOM/BED: 6622[address] : 48 AGE: 69 SEX: M ATTEND: Darrick Benson ADM AUTHOR: Sebastian Mora NP * ALL edits or amendments must be made on the electronic/computer document * Subjective Chief complaint: no acute events, resting in bed, no discomfort Objective General VS: Vital Signs: Date Time Temp Pulse Resp B/P B/P Pulse O2 O2 Flow FiO2 Mean Ox Delivery Rate 10/10 923 92 93 Nasal 2.809827 cannula 10/09 09 94 89 Room air 10/09 0756 97.7 90 20 139/77 97.7 89 Room air 10/08 1929 98.1 92 17 144/88 106.6 92 Room air 10/08 1036 101 123/82 95.8 92 Room air Patient Weight Weight (lb): 251 Weight (oz): 8.44 Weight (kg): 114.091 Medications: Active Meds + DC'd Last 24 Hrs Enoxaparin Sodium 40 MG Q24H SUBQ Furosemide 20 MG QAM PO Famotidine 20 MG BID PO Meropenem 500 MG Q6H IV Sterile Water 10 ML Metformin HCl 500 MG C BK DIN PO Acetaminophen 650 MG Q4H PRN PRN PO Bisacodyl 10 MG DAILY PRN PRN PO Dextrose/Water 25 ML ASDIR PRN IV Glucagon 1 MG ASDIR PRN IM Insulin Human Lispro LOW DOSE SCALE ASDIR SUBQ Lactulose 30 ML DAILY PRN PRN PO (CKD) Magnesium Hydroxide 30 ML DAILY PRN PRN PO Ondansetron Base 4 MG Q4H PRN PRN SL Senna/Docusate Sodium 2 TAB DAILY PRN PRN PO Tramadol HCl 50 MG Q4H PRN PRN PO Physical Exam General appearance: alert, awake Psych: alert, normal affect HEENT: mucosal membranes moist, pupils reactive to light, sclera clear Neck: non-tender, supple, no carotid bruit, no JVD Cardiovascular: regular rate rhythm, S1/S2, no murmur Respiratory: aerating well Abdomen: soft, non-tender Functional Progress Functional progress: The data set between the solid lines has been imported from multidisciplinary team documentation. __ Functional Activity Admission Status Interim Status Toilet hygiene Partial/moderate (3) Partial/moderate (3) Toilet transfer Partial/moderate (3) Partial/moderate (3) Eating Setup or cleanup (5) Shower/bathing Substantial/max (2) Supervision/touch (4) Dressing upper body Supervision/touch (4) Setup or cleanup (5) Dressing lower body Substantial/max (2) Partial/moderate (3) Transfer to/from bed to chair Partial/moderate (3) Supervision/touch (4) Wheel 50ft w/ 2 turns Supervision/touch (4) Supervision/touch (4) Wheel 150 ft Substantial/max (2) Supervision/touch (4) Walk 50 ft w/ 2 turns Partial/moderate (3) Supervision/touch (4) Walk 150 ft Partial/moderate (3) Supervision/touch (4) Four steps Supervision/touch (4) __ Results Findings/Data: Laboratory Tests: 10/09 10/08 10/08 10/08 0535 2044 1642 1130 Chemistry POC Glucose (74 - 106 MG/DL) 154 H 121 H 135 H 190 H Diagnosis, Assessment Plan Problem List/A P: 1. Uncontrolled type 2 diabetes mellitus with hyperglycemia 2. Debility Free Text A P: Plan - pain management - on Merrem - see treatment plan from other specialties - continue medical management - d/w pt, nurse Rehab attestation: Face to face exam completed. Treatment plan discussed with patient. Meets continued stay criteria. Agree with interdisciplinary treatment plan. at 1116 RPT #:[id number] END OF REPORT [facility] 2019-10-10 09:50:00 ([facility]) Rehab Progress Note REPORT#:[id number] REPORT STATUS: Signed DATE:10/10/19 TIME: 0950 PATIENT: SEYMOUR SNOW UNIT #: [id number] [address] AGE: 69 SEX: M ATTEND: KelleyDarrick Lynn ADM AUTHOR: Sebastian Mora BALL WARPER TENDER * ALL edits or amendments must be made on the electronic/computer document * Sebastian Mora 10/10/19 0950: Subjective Chief complaint: no acute events, resting in bed, no discomfort Objective General VS: Vital Signs: Date Time Temp Pulse Resp B/P B/P Pulse O2 O2 Flow FiO2 Mean Ox Delivery Rate 10/10 923 92 93 Nasal 2.105106 cannula 10/09 921 94 89 Room air 10/09 0756 97.7 90 20 139/77 97.7 89 Room air 10/08 1929 98.1 92 17 144/88 106.6 92 Room air 10/08 1036 101 123/82 95.8 92 Room air Patient Weight Weight (lb): 251 Weight (oz): 8.44 Weight (kg): 114.091 Medications: Active Meds + DC'd Last 24 Hrs Enoxaparin Sodium 40 MG Q24H SUBQ Furosemide 20 MG QAM PO Famotidine 20 MG BID PO Meropenem 500 MG Q6H IV Sterile Water 10 ML Metformin HCl 500 MG C BK DIN PO Acetaminophen 650 MG Q4H PRN PRN PO Bisacodyl 10 MG DAILY PRN PRN PO Dextrose/Water 25 ML ASDIR PRN IV Glucagon 1 MG ASDIR PRN IM Insulin Human Lispro LOW DOSE SCALE ASDIR SUBQ Lactulose 30 ML DAILY PRN PRN PO (CKD) Magnesium Hydroxide 30 ML DAILY PRN PRN PO Ondansetron Base 4 MG Q4H PRN PRN SL Senna/Docusate Sodium 2 TAB DAILY PRN PRN PO Tramadol HCl 50 MG Q4H PRN PRN PO Physical Exam General appearance: alert, awake Psych: alert, normal affect HEENT: mucosal membranes moist, pupils reactive to light, sclera clear Neck: non-tender, supple, no carotid bruit, no JVD Cardiovascular: regular rate rhythm, S1/S2, no murmur Respiratory: aerating well Abdomen: soft, non-tender Functional Progress Functional progress: The data set between the solid lines has been imported from multidisciplinary team documentation. __ Functional Activity Admission Status Interim Status Toilet hygiene Partial/moderate (3) Partial/moderate (3) Toilet transfer Partial/moderate (3) Partial/moderate (3) Eating Setup or cleanup (5) Shower/bathing Substantial/max (2) Supervision/touch (4) Dressing upper body Supervision/touch (4) Setup or cleanup (5) Dressing lower body Substantial/max (2) Partial/moderate (3) Transfer to/from bed to chair Partial/moderate (3) Supervision/touch (4) Wheel 50ft w/ 2 turns Supervision/touch (4) Supervision/touch (4) Wheel 150 ft Substantial/max (2) Supervision/touch (4) Walk 50 ft w/ 2 turns Partial/moderate (3) Supervision/touch (4) Walk 150 ft Partial/moderate (3) Supervision/touch (4) Four steps Supervision/touch (4) __ Results Findings/Data: Laboratory Tests: 10/09 10/08 10/08 10/08 0535 2044 1642 1130 Chemistry POC Glucose (74 - 106 MG/DL) 154 H 121 H 135 H 190 H Diagnosis, Assessment Plan Problem List/A P: 1. Uncontrolled type 2 diabetes mellitus with hyperglycemia 2. Debility Free Text A P: Plan - pain management - on Merrem - see treatment plan from other specialties - continue medical management - d/w pt, nurse Rehab attestation: Face to face exam completed. Treatment plan discussed with patient. Meets continued stay criteria. Agree with interdisciplinary treatment plan. Shola Cuba 10/10/19 1356: Diagnosis, Assessment Plan Free Text A P: agree with above note/ plan by BALL WARPER TENDER at 1116 at 1356 [facility] #:[id number] END OF REPORT [facility] 2019-10-09 15:58:00 ([facility]) Adult General Consultation REPORT#:[id number] REPORT STATUS: Signed DATE:10/09/19 TIME: 1558 PATIENT: SEYMOUR SNOW UNIT #: [id number] ROOM/BED: [address] : 48 AGE: 69 SEX: M ATTEND: Darrick Benson ADM AUTHOR: Lizzy Duke MD * ALL edits or amendments must be made on the electronic/computer document * History of Present Illness HPI: 69-year-old male presenting status post open cholecystectomy developed a gallbladder fossa abscess. Patient was treated with antibiotics. Surgical management as well. Patient had a right wound VAC culture intra-abdominal tube for drainage of abscess placed. Patient was severely debilitated. Patient was treated with antibiotics with meropenem. Per ID. Patient management was complicated by debility and deconditioning during his hospital stay. Patient will step to inpatient rehab for further management. History - Adult longitudinal Past medical history: Reports: Diabetes mellitus, Hypertension. Additional surgical history: Neck surgery, 40 years ago Alcohol use: Denies EtOH use Drug use: Denies recreational drugs Smoking status for patients 13 years old or older: Never Smoker Other social history: Good social support Medications: Home Medications: Medication Dose/Rte/Freq Days Qty Entered Last Max Daily Dose Reviewed MEROPENEM (MERREM) 500 MG IV Q6H 30 10/05/19 Strength: 500 MG VIAL 1132 FAMOTIDINE (PEPCID) 20 MG PO BID 10/05/19 Strength: 20 MG TAB 1133 LOSARTAN (COZAAR) 50 MG PO BID 09/22/19 Strength: 50 MG TAB 2251 FLUCONAZOLE (DIFLUCAN) 200 MG PO 4 10/01/19 Strength: 200 MG TAB DAILY@1600 1409 methocarbamoL (ROBAXIN) 500 MG PO BID 7 10/01/19 Strength: 500 MG TAB 1409 ACETAMINOPHEN (TYLENOL) 650 MG PO 30 10/01/19 Strength: 325 MG TAB Q8HR PRN pain 1410 traMADol (ULTRAM) 50 MG PO 30 10/01/19 Strength: 50 MG TAB Q4H PRN PRN Pain 1410 Scale 7-10 BISACODYL EC 10 MG PO 30 10/01/19 (DULCOLAX EC) DAILY PRN PRN 1410 Strength: 5 MG TAB.DR CONSTIPATION POLYETHYLENE GLYCOL 1 PKT PO DAILY 30 10/01/19 3350 1410 (MIRALAX) Strength: 17 GM POWDER metFORMIN (GLUCOPHAGE) 500 MG PO C BK DIN 30 10/01/19 Strength: 500 MG TAB 1412 FUROSEMIDE (LASIX) 20 MG PO QAM 30 10/05/19 Strength: 20 MG TAB 1132 Current Hospital Medications: Anti-Infective Agents Sig/Mary Start time Last Medication Dose Route Stop Time Status Admin Meropenem 500 MG Q6H 10/05 1800 AC 10/09 (MERREM) IV 10/19 2359 0525 Sterile Water 10 ML (WATER,STERILE ) Blood Formation,Coagulation Sig/Mary Start time Last Medication Dose Route Stop Time Status Admin Enoxaparin Sodium 40 MG Q24H 10/06 0900 AC 10/09 (LOVENOX) SUBQ 11/05 0901 0823 Central Nervous System Agents Sig/Mary Start time Last Medication Dose Route Stop Time Status Admin Acetaminophen 650 MG Q4H PRN PRN 10/05 1730 AC (TYLENOL REGULAR) PO 11/04 1501 Tramadol HCl 50 MG Q4H PRN PRN 10/05 1730 AC 10/09 (ULTRAM) PO 10/15 1501 0823 Electrolytic, Caloric, And Eli Sig/Mary Start time Last Medication Dose Route Stop Time Status Admin Furosemide 20 MG QAM 10/06 0900 AC 10/09 (LASIX) PO 11/05 0901 0823 Dextrose/Water 25 ML ASDIR PRN 10/05 1730 AC (DEXTROSE 50% SYR) IV 11/04 1501 Lactulose 30 ML DAILY PRN PRN 10/05 1730 CKD (CONSTULOSE) PO 11/04 1501 Gastrointestinal Drugs Sig/Mary Start time Last Medication Dose Route Stop Time Status Admin Famotidine 20 MG BID 10/05 2100 AC 10/09 (PEPCID) PO 11/04 2101 0823 Bisacodyl 10 MG DAILY PRN PRN 10/05 1730 AC (DULCOLAX,CORRECTOL) PO 11/04 1501 Magnesium Hydroxide 30 ML DAILY PRN PRN 10/05 1730 AC (MILK OF MAGNESIA U/ PO 11/04 1501 D) Ondansetron Base 4 MG Q4H PRN PRN 10/05 1730 AC (ZOFRAN ODT) SL 11/04 1501 Senna/Docusate Sodium 2 TAB DAILY PRN PRN 10/05 1730 AC (SENOKOT-S) PO 11/04 1501 Hormones And Synthetic Substit Sig/Mary Start time Last Medication Dose Route Stop Time Status Admin Metformin HCl 500 MG C BK DIN 10/05 1800 AC 10/09 (GLUCOPHAGE) PO 11/04 1801 0823 Glucagon 1 MG ASDIR PRN 10/05 1730 AC (GLUCAGON) IM 11/04 1501 Insulin Human Lispro See Dose ASDIR 10/05 173 AC 10/07 (HumaLOG) Insts (1) SUBQ 11/04 1501 1849 Dose Instructions: (1)Insulin Human Lispro (HumaLOG): LOW DOSE SCALE Allergies: Coded Allergies: No Known Allergies (10/26/18) Review of Systems Free Text ROS Notes Free Text ROS Notes: 14 point review of systems reviewed and negative unless previously stated in the patient's HPI Objective Free Text Obj Notes Free Text Obj Notes: General-no acute distress HEENT-pupils equal regular reactive to light and accommodation, extraocular muscle intact, anicteric sclera Neck exam-supple, no thyromegaly, no JVD Respiratory exam-clear to auscultation bilaterally, no wheezes rhonchi rales appreciated Cardiovascular exam-regular rate and rhythm, normal S1-S2, no JVD appreciated Abdominal exam-nontender nondistended normoactive bowel sounds. Abdominal to the right upper quadrant of the abdomen draining serosanguineous fluid and wound VAC. Extremities-strength 5 out of 5 and equal bilaterally, 2+ pulses bilaterally Neurological exam-AAO x3, cranial nerves II through XII intact, no focal deficits Psych exam-normal affect Diagnosis, Assessment Plan Free Text DxA P Notes Free Text DxA P Notes: #Cholecystitis -pt was in rehab and readmitted for open cholecystetomy with developing abscess -VARUN s/p lap>open mag(09/24) -CT abd/pelv 09/27 with post op changes, no discrete defined fluid collection -CTA chest with no evidence of pulmonary embolism -drain removed by GS, pt to f/u with GS in clinic 10/08/19 -repeat CT abd/pelvis 10/02 with developing abscess in gallbladder fossa -Wound VAC in place and continues to drain. Continue meropenem IV per infectious disease # Small right pleural effusion resolved -continue low dose lasix #Elevated LFTs -improved #T2DM: hyperglycemic; A1c 9.5 -continues on metformin, continue PRN SSI #HTN -continue losartan #Obesity: BMI > 30 -weight loss counseling #HLD: -LDL 101 -recommend healthy dietary changes #Chest pain -reported yesterday 10/03 when wound vac applied -CE x 1 negative -EKG NSR -pt denies chest pain today #DVT Prophylaxis -Lovenox DISPO: We will continue to follow with you thank you at 1149 RPT #:[id number] END OF REPORT [facility] 2019-10-09 10:21:00 ([facility]) Rehab Progress Note REPORT#:[id number] REPORT STATUS: Signed DATE:10/09/19 TIME: 1021 PATIENT: MYA SNOWNCIO UNIT #: [id number] ROOM/BED: [address] : 48 AGE: 69 SEX: M ATTEND: Darrick Benson ADM AUTHOR: Sebastian Mora NP * ALL edits or amendments must be made on the electronic/computer document * Subjective Chief complaint: no acute events, resting in bed, no acute distress Objective General VS: Vital Signs: Date Time Temp Pulse Resp B/P B/P Pulse O2 O2 Flow FiO2 Mean Ox Delivery Rate 10/08 0840 105 122/78 93.0 91 Room air 10/08 0838 105 147/90 108.8 91 Room air 10/08 0827 97 130/79 95.6 90 Room air 10/08 0626 97.9 94 20 129/84 98.8 92 Room air 10/07 1937 98.1 98 18 130/83 98.5 93 Room air Patient Weight Weight (lb): 251 Weight (oz): 8.44 Weight (kg): 114.091 Medications: Active Meds + DC'd Last 24 Hrs Enoxaparin Sodium 40 MG Q24H SUBQ Furosemide 20 MG QAM PO Famotidine 20 MG BID PO Meropenem 500 MG Q6H IV Sterile Water 10 ML Metformin HCl 500 MG C BK DIN PO Acetaminophen 650 MG Q4H PRN PRN PO Bisacodyl 10 MG DAILY PRN PRN PO Dextrose/Water 25 ML ASDIR PRN IV Glucagon 1 MG ASDIR PRN IM Insulin Human Lispro LOW DOSE SCALE ASDIR SUBQ Lactulose 30 ML DAILY PRN PRN PO (CKD) Magnesium Hydroxide 30 ML DAILY PRN PRN PO Ondansetron Base 4 MG Q4H PRN PRN SL Senna/Docusate Sodium 2 TAB DAILY PRN PRN PO Tramadol HCl 50 MG Q4H PRN PRN PO Physical Exam General appearance: alert, awake Psych: alert, normal affect HEENT: mucosal membranes moist, pupils reactive to light, sclera clear Neck: non-tender, supple, no carotid bruit, no JVD Cardiovascular: regular rate rhythm, S1/S2, no murmur Respiratory: aerating well Abdomen: soft, non-tender Functional Progress Functional progress: The data set between the solid lines has been imported from multidisciplinary team documentation. __ Functional Activity Admission Status Interim Status Toilet hygiene Partial/moderate (3) Partial/moderate (3) Toilet transfer Partial/moderate (3) Partial/moderate (3) Eating Setup or cleanup (5) Shower/bathing Substantial/max (2) Supervision/touch (4) Dressing upper body Supervision/touch (4) Setup or cleanup (5) Dressing lower body Substantial/max (2) Partial/moderate (3) Transfer to/from bed to chair Partial/moderate (3) Supervision/touch (4) Wheel 50ft w/ 2 turns Supervision/touch (4) Supervision/touch (4) Wheel 150 ft Substantial/max (2) Supervision/touch (4) Walk 50 ft w/ 2 turns Partial/moderate (3) Supervision/touch (4) Walk 150 ft Partial/moderate (3) Supervision/touch (4) Four steps Supervision/touch (4) __ Results Findings/Data: Laboratory Tests: 10/08 10/07 10/07 10/07 0533 2125 1700 1049 Chemistry POC Glucose (74 - 106 MG/DL) 141 H 175 H 187 H 191 H Diagnosis, Assessment Plan Problem List/A P: 1. Uncontrolled type 2 diabetes mellitus with hyperglycemia 2. Debility Free Text A P: Plan - pain management - on Merrem - see treatment plan from other specialties - d/w pt, nurse Rehab attestation: Face to face exam completed. Treatment plan discussed with patient. Meets continued stay criteria. Agree with interdisciplinary treatment plan. at 1308 RPT #:[id number] END OF REPORT [facility] 2019-10-09 10:21:00 [facility]) Rehab Progress Note REPORT#:[id number] REPORT STATUS: Signed DATE:10/09/19 TIME: 1021 PATIENT: SEYMOUR SNOW UNIT #: [id number] ROOM/BED: [address] : 48 AGE: 69 SEX: M ATTEND: Darrick Benson ADM AUTHOR: Sebastian Mora NP * ALL edits or amendments must be made on the electronic/computer document * Sebastian Mora 10/09/19 1021: Subjective Chief complaint: no acute events, resting in bed, no acute distress Objective General VS: Vital Signs: Date Time Temp Pulse Resp B/P B/P Pulse O2 O2 Flow FiO2 Mean Ox Delivery Rate 10/08 0840 105 122/78 93.0 91 Room air 10/08 0838 105 147/90 108.8 91 Room air 10/08 0827 97 130/79 95.6 90 Room air 10/08 0626 97.9 94 20 129/84 98.8 92 Room air 10/07 1937 98.1 98 18 130/83 98.5 93 Room air Patient Weight Weight (lb): 251 Weight (oz): 8.44 Weight (kg): 114.091 Medications: Active Meds + DC'd Last 24 Hrs Enoxaparin Sodium 40 MG Q24H SUBQ Furosemide 20 MG QAM PO Famotidine 20 MG BID PO Meropenem 500 MG Q6H IV Sterile Water 10 ML Metformin HCl 500 MG C BK DIN PO Acetaminophen 650 MG Q4H PRN PRN PO Bisacodyl 10 MG DAILY PRN PRN PO Dextrose/Water 25 ML ASDIR PRN IV Glucagon 1 MG ASDIR PRN IM Insulin Human Lispro LOW DOSE SCALE ASDIR SUBQ Lactulose 30 ML DAILY PRN PRN PO (CKD) Magnesium Hydroxide 30 ML DAILY PRN PRN PO Ondansetron Base 4 MG Q4H PRN PRN SL Senna/Docusate Sodium 2 TAB DAILY PRN PRN PO Tramadol HCl 50 MG Q4H PRN PRN PO Physical Exam General appearance: alert, awake Psych: alert, normal affect HEENT: mucosal membranes moist, pupils reactive to light, sclera clear Neck: non-tender, supple, no carotid bruit, no JVD Cardiovascular: regular rate rhythm, S1/S2, no murmur Respiratory: aerating well Abdomen: soft, non-tender Functional Progress Functional progress: The data set between the solid lines has been imported from multidisciplinary team documentation. __ Functional Activity Admission Status Interim Status Toilet hygiene Partial/moderate (3) Partial/moderate (3) Toilet transfer Partial/moderate (3) Partial/moderate (3) Eating Setup or cleanup (5) Shower/bathing Substantial/max (2) Supervision/touch (4) Dressing upper body Supervision/touch (4) Setup or cleanup (5) Dressing lower body Substantial/max (2) Partial/moderate (3) Transfer to/from bed to chair Partial/moderate (3) Supervision/touch (4) Wheel 50ft w/ 2 turns Supervision/touch (4) Supervision/touch (4) Wheel 150 ft Substantial/max (2) Supervision/touch (4) Walk 50 ft w/ 2 turns Partial/moderate (3) Supervision/touch (4) Walk 150 ft Partial/moderate (3) Supervision/touch (4) Four steps Supervision/touch (4) __ Results Findings/Data: Laboratory Tests: 10/08 10/07 10/07 10/07 0533 2125 1700 1049 Chemistry POC Glucose (74 - 106 MG/DL) 141 H 175 H 187 H 191 H Diagnosis, Assessment Plan Problem List/A P: 1. Uncontrolled type 2 diabetes mellitus with hyperglycemia 2. Debility Free Text A P: Plan - pain management - on Merrem - see treatment plan from other specialties - d/w pt, nurse Rehab attestation: Face to face exam completed. Treatment plan discussed with patient. Meets continued stay criteria. Agree with interdisciplinary treatment plan. Shola Cuba 10/09/19 1340: Diagnosis, Assessment Plan Free Text A P: agree with above note/ plan by BALL WARPER TENDER at 1308 at 1340 RPT #:[id number] [facility] Infectious Dis. Progress Note REPORT#:[id number] REPORT STATUS: Signed DATE:10/08/19 TIME: 1350 PATIENT: SEYMOUR SNOW UNIT #: [id number] ROOM/BED: [address] : 48 AGE: 69 SEX: M ATTEND: KelleyDarrick Beardur ADM AUTHOR: Martín Denis DO * ALL edits or amendments must be made on the electronic/computer document * Subjective Chief Complaint: patient with some abd pain Objective General VS/I O: Last Documented: Result Date Time Pulse Ox 90 10/07 0833 B/P 121/78 10/07 0833 B/P Mean 92.4 10/07 0833 O2 Delivery Room air 10/07 0833 Pulse 106 10/07 0833 Temp 36.8 10/07 0644 Resp 18 10/07 0644 Vital Signs Date Temp Pulse Resp B/P B/P Mean Pulse Ox FiO2 10/06-10/07 36.8 90-106 18 114-128/70-84 84.6-98.1 90-92 24 hour I O ending at 0700: 10/07 0700 10/06 1900 Intake Total 150 820.00 Output Total 600 750 Balance -450 70.00 Intake, IV 20.00 Intake, Oral 150 800 Number 1 Bowel Movements Number Voids 7 4 Output, Urine 600 750 Patient Weight Weight (lb): 251 Weight (oz): 8.44 Weight (kg): 114.091 Physical Exam General appearance: chronically ill appearing Cardiovascular: normal heart sounds, regular rate rhythm Respiratory: decreased breath sounds at bases Abdomen: non-tender, soft, no distention, RUQ inciosion dehisced site with wound vac + percutan drain Genitourinary: no flank pain Extremities: no edema Skin: no rash Diagnosis, Assessment Plan Free Text A P: 1. Abscess cholecystectomy site esbk merrem ? repeat tube placement 2. Wound dehiscence s/p wound vac 3. Leukocytosis resolved Recs cont merrem likely [address] at 1351 RPT #:[id number] END OF REPORT [facility] 2019[facility]08 10:31:00 [facility] REPORT#:[id number] REPORT STATUS: Signed DATE:10/08/19 TIME: 1031 PATIENT: SEYMOUR SNOW UNIT #: [id number] ROOM/BED: 6622-A : 48 AGE: 69 SEX: M ATTEND: Darrick Benson ADM AUTHOR: Darrick Benson * ALL edits or amendments must be made on the electronic/computer document * Subjective Patient reports: Yes: comfortable. No: complaints. Nursing reports: Yes: pain controlled. No: new events overnight, confusion. Comments: ID follow up appreciated Objective General VS: Vital Signs: Date Time Temp Pulse Resp B/P B/P Pulse O2 O2 Flow FiO2 Mean Ox Delivery Rate 10/07 832 106 121/78 92.4 90 Room air 10/07 0831 102 128/82 97.5 90 Room air 10/07 0811 95 123/84 97.0 92 Room air 10/07 0644 98.2 90 18 114/70 84.6 90 Room air 10/06 1952 98.2 94 18 128/83 98.1 92 Room air 10/06 1126 97 130/88 101.8 88 10/06 1103 108 130/89 102.8 89 Room air Patient Weight Weight (lb): 251 Weight (oz): 8.44 Weight (kg): 114.091 Medications: Active Meds + DC'd Last 24 Hrs Enoxaparin Sodium 40 MG Q24H SUBQ Furosemide 20 MG QAM PO Famotidine 20 MG BID PO Meropenem 500 MG Q6H IV Sterile Water 10 ML Metformin HCl 500 MG C BK DIN PO Acetaminophen 650 MG Q4H PRN PRN PO Bisacodyl 10 MG DAILY PRN PRN PO Dextrose/Water 25 ML ASDIR PRN IV Glucagon 1 MG ASDIR PRN IM Insulin Human Lispro LOW DOSE SCALE ASDIR SUBQ Lactulose 30 ML DAILY PRN PRN PO (CKD) Magnesium Hydroxide 30 ML DAILY PRN PRN PO Ondansetron Base 4 MG Q4H PRN PRN SL Senna/Docusate Sodium 2 TAB DAILY PRN PRN PO Tramadol HCl 50 MG Q4H PRN PRN PO Physical Exam Psych: alert, normal affect HEENT: mucosal membranes moist, pupils reactive to light, sclera clear Neck: non-tender, supple, no carotid bruit, no JVD Cardiovascular: regular rate rhythm, S1/S2, no murmur Respiratory: aerating well Abdomen: soft, non-tender Functional Progress Functional progress: The data set between the solid lines has been imported from multidisciplinary team documentation. __ Functional Activity Admission Status Interim Status Toilet hygiene Partial/moderate (3) Partial/moderate (3) Toilet transfer Partial/moderate (3) Partial/moderate (3) Eating Setup or cleanup (5) Shower/bathing Substantial/max (2) Dressing upper body Supervision/touch (4) Dressing lower body Substantial/max (2) Transfer to/from bed to chair Partial/moderate (3) Supervision/touch (4) Wheel 50ft w/ 2 turns Supervision/touch (4) Supervision/touch (4) Wheel 150 ft Substantial/max (2) Supervision/touch (4) Walk 50 ft w/ 2 turns Partial/moderate (3) Supervision/touch (4) Walk 150 ft Partial/moderate (3) Supervision/touch (4) Four steps Supervision/touch (4) __ IPOC completed, approved, underway Results Findings/Data: Laboratory Tests: 10/07 10/06 10/06 10/06 0524 2053 1702 1124 Chemistry POC Glucose (74 - 106 MG/DL) 130 H 170 H 180 H 181 H Results: labs reviewed, vital signs stable, current med profile rev'd Diagnosis, Assessment Plan Problem List/A P: 1. Uncontrolled type 2 diabetes mellitus with hyperglycemia 2. Debility Free Text A P: See EHR for nursing, therapy, and CM notes Will continue current medications and treatments Rehab attestation: Face to face exam completed. Treatment plan discussed with patient. Meets continued stay criteria. Agree with interdisciplinary treatment plan. at 1032 RPT #:[id number] END OF REPORT [facility] 2019-10-08 08:04:00 ([facility]) Rehab Indiv Overall POC REPORT#:[id number] REPORT STATUS: Signed DATE:10/08/19 TIME: 08 PATIENT: SEYMOUR SNOW UNIT #: [id number] ROOM/BED: [address] : 48 AGE: 69 SEX: M ATTEND: Darrick Benson ADM AUTHOR: Darrick Benson * ALL edits or amendments must be made on the electronic/computer document * Individualized Overall POC HPI Impairment group: debility NOTE Document ONLY ONE Impairment Group Etiologic diagnosis: debility after wound infection Medical Expected Course Expected DC destination: Home Problem List/A P: 1. Uncontrolled type 2 diabetes mellitus with hyperglycemia 2. Debility Medical prognosis: fair Medical prognosis details: pt motivation, family/caregiver support, endurance, D /C plan Med prognosis comment: see H P, PAS Expected course of Tx: see H P, PAS Functional Expected Course Functional expected course: The data set between the solid lines has been imported from multidisciplinary team documentation: __ Anticipated services in acute inpatient rehab: Discipline Physical Therapy Occupational Therapy Speech Therapy Intensity (minutes/day) 90 90 Frequency (days/week) 5 5 Duration (# of days) 14 14 Expected Functional Outcomes: CARE Rolling left and Independent (6) right discharge goal: CARE Sitting to Independent (6) lying discharge goal: CARE Lying to sitting Independent (6) on side of bed discharge goal: CARE Sitting to Independent (6) standing discharge goal: CARE Chair/bed to Independent (6) chair transfer discharge goal: CARE Car transfer Independent (6) discharge goal: CARE Walking 10 Independent (6) feet discharge goal: CARE Walking 50 feet Independent (6) with two turns discharge goal: CARE Walking 150 Independent (6) feet discharge goal: CARE Walking 10 feet on Independent (6) uneven surface discharge goal: CARE 1 step (curb) Independent (6) discharge goal: CARE 4 steps Independent (6) discharge goal: CARE 12 steps Independent (6) discharge goal: CARE Picking up Independent (6) object discharge goal: CARE Pauline 50 feet Independent (6) with two turns discharge goal: CARE Pauline 150 Independent (6) feet discharge goal: CARE Toileting hygiene Setup/clean-up only (5) discharge goal: CARE Transfer on/off toilet Setup/clean-up only (5) or commode discharge goal: Bowel function goal: Pt will have daily continent BM while in rehab Bladder function goal: Pt will remain continent of bladder while in rehab CARE Eating discharge goal: Independent (6) CARE Oral hygiene Independent (6) discharge goal: CARE Shower/bathe Independent (6) self discharge goal: CARE Upper body Independent (6) dressing discharge goal: CARE Lower body Independent (6) dressing discharge goal: CARE Putting on/taking Independent (6) off footwear discharge goal: _ ELOS Attestation: Based upon the review of clinical staff recommendations of frequency, duration and intensity and individual assessment of this patient, I estimate the following: Estimated length of stay: see Tila Watkins MD Review/Recommendation Attestation: Based upon my physical evaluation of the patient and input from the interdisciplinary team members I have developed this interdisciplinary overall plan of care and determined the admission to the IRF is reasonable and necessary. at 0805 [facility] #:[id number] END OF REPORT [facility] 2019-10-07 23:20:00 ([facility]) Infectious Dis. Progress Note REPORT#:[id number] REPORT STATUS: Signed DATE:10/07/19 TIME: 2319 PATIENT: SEYMOUR SNOW UNIT #: [id number] ROOM/BED: [address] : 48 AGE: 69 SEX: M ATTEND: KelleyDarrick Shane ADM AUTHOR: Allie Phelps MD * ALL edits or amendments must be made on the electronic/computer document * Subjective Chief Complaint: feels better not much pain Objective General VS/I O: Last Documented: Result Date Time Pulse Ox 92 10/07 1951 B/P 128/83 10/07 1951 B/P Mean 98.1 10/07 1951 O2 Delivery Room air 10/07 1951 Temp 98.2 10/06 195 Pulse 94 10/07 1951 Resp 18 10/07 1951 Vital Signs Date Temp Pulse Resp B/P B/P Mean Pulse Ox FiO2 10/06 98.2 89-108 18 104-137/68-89 80.0-102.8 88-92 24 hour I O ending at 0700: 10/06 0700 10/05 1900 Intake Total 125 Output Total Balance 125 Intake, Oral 125 Number Voids 1 Patient 114.091 kg Weight Weight Bed scale Measurement Method Patient Weight Weight (lb): 251 Weight (oz): 8.44 Weight (kg): 114.091 Physical Exam General appearance: alert, awake Cardiovascular: normal heart sounds, regular rate rhythm Respiratory: decreased breath sounds at bases Abdomen: non-tender, soft, no distention, RUQ inciosion dehisced site with wound vac + percutan drain Genitourinary: no flank pain Extremities: no edema Skin: no rash Results Findings/Data: Laboratory Tests 10/06 10/06 10/06 10/06 2053 1702 1124 0533 Chemistry POC Glucose (74 - 106 MG/DL) 170 H 180 H 181 H 126 H Diagnosis, Assessment Plan Free Text A P: 1. Abscess cholecystectomy site s/p percut drain cath c/s with esbl cont 2. Wound dehiscence s/p wound vac 3. Leukocytosis improved Recs cont merrem likely 2 weeks at 1558 [facility] #:[id number] END OF REPORT [facility] 2019-10-07 16:56:00 [id number] [facility] [address] [facility], [place] [place] [address] PATIENT NAME: SEYMOUR SNOW ADMIT DATE: 10/06/19 ACCOUNT NO: [id number] ROOM NO: 6622 AGE: 69 REPORT TYPE: HISTORY AND PHYSICAL SEX: M ADMITTING PHYSICIAN:Darrick Benson ATTENDING PHYSICIAN:Darrick Benson ADMISSION DATE: 10/06/2019 ADMISSION HISTORY AND PHYSICAL ADMITTING DIAGNOSIS: Debility. HISTORY: This is a 69-year-old gentleman who had been on inpatient rehabilitation service. He was found to have a wound site infection complicated by wound dehiscence, was transferred back to the acute care side where he had further surgical treatment and medical treatment, stabilized medically, and is now returning to inpatient rehabilitation. PAST MEDICAL HISTORY: Significant for biliary pancreatitis, chronic cholecystitis, hypertension, diabetes, and hyperlipidemia. PAST SURGICAL HISTORY: Surgically, he has had an open cholecystectomy and the above-mentioned wound reclosure. He has also had neck surgery in the remote past. FAMILY HISTORY: It was reviewed, but is not contributory to the current problem. There is no history of early cerebrovascular or cardiovascular disease. ALLERGIES: HE HAS NO KNOWN DRUG ALLERGIES. MEDICATIONS: Please see the accompanying MAR for details of medications at the time of admission. Final discharge medications will be on the discharge summary. REVIEW OF SYSTEMS: The entire review of systems was completed and is negative, except as relates to the above-mentioned history of present illness and past medical history. This is documented in the rehabilitation history and physical section in the EHR. SOCIAL HISTORY: Prior to the admission, he was living alone, but will be discharging home with his son. There is no history of smoking, alcohol, or drug abuse. PHYSICAL EXAMINATION: VITAL SIGNS: He is 6 feet 2 inches tall and weighs 252 pounds. He is afebrile, pulse is 89 and regular, blood pressure is 131/84, and pulse oximetry is 92%. GENERAL: Otherwise, on examination, he is awake and alert, oriented, cooperative, and is in no acute distress. PATIENT NAME: SEYMOUR SNOW HEENT: Speech is clear without dysarthria or aphasia. Head and neck examination shows that he is normocephalic and atraumatic. Pupils are equal, round, and reactive to light. Extraocular motions are intact. Visual cardona are full. There is no facial motor or sensory asymmetry. Tongue and uvula are midline. Oropharyngeal examination is normal. Hearing is normal. NECK: Supple without masses, bruits, or meningeal signs. LUNGS: Clear to auscultation. HEART: Shows a regular rate and rhythm without murmurs. ABDOMEN: Benign with normal bowel sounds. The surgical site appears to be healing adequately. EXTREMITIES: There is no cyanosis, clubbing, or edema in the peripheries. PLAN: The plan is for physical therapy for strengthening, transfer training, training with assistive devices, and ambulation including stairs. We will also be working with occupational therapy for activities of daily living including upper and lower body dressing, grooming, toileting, toilet and shower transfers, and self-feeding. I do not anticipate a need for speech therapy at this time. Nursing will be watching for signs of skin breakdown or recurring infections. We will be monitoring bowel and bladder and instituting bowel and bladder protocols as needed. We will be monitoring pain and response to the pain medications. We will also be watching for fluctuations in blood pressure with increasing activity levels. We have asked the hospitalist and infectious disease to follow him with us and will be in contact with surgery for followup as needed. Anticipated length of stay is 10 days with discharge home with family as above. Dictated By: Darrick Benson MD WT: DARIUS:DINA/DIRK/TATIANNA Conf#: [id number]/DID#: [id number] Authenticated by Balaji Benson MD On 10/08/2019 05:34:15 AM at 0534 PATIENT NAME: SEYMOUR SNOW [facility] 2019-10-07 13:23:00 [facility] Rehab Progress Note REPORT#:[id number] REPORT STATUS: Signed DATE:10/07/19 TIME: 1323 PATIENT: SEYOMUR SNOW UNIT #: [id number] ROOM/BED: [address] : 48 AGE: 69 SEX: M ATTEND: Darrick Benson ADM AUTHOR: Darrick Benson * ALL edits or amendments must be made on the electronic/computer document * Subjective Patient reports: Yes: comfortable. No: complaints. Nursing reports: Yes: pain controlled. No: new events overnight, confusion. Objective General VS: Vital Signs: Date Time Temp Pulse Resp B/P B/P Pulse O2 O2 Flow FiO2 Mean Ox Delivery Rate 10/06 1126 97 130/88 101.8 88 10/06 1103 108 130/89 102.8 89 Room air 10/06 1020 105 118/73 88.3 91 10/06 0907 104 104/68 80.0 91 Room air 10/06 0903 98 137/78 97.5 92 Room air 10/06 0820 89 130/78 95.5 92 Room air 10/05 1923 98.1 89 18 131/84 99.9 92 Room air 10/05 1742 98.6 84 15 125/78 93.7 90 Room air Patient Weight Weight (lb): 251 Weight (oz): 8.44 Weight (kg): 114.091 Medications: Active Meds + DC'd Last 24 Hrs Enoxaparin Sodium 40 MG Q24H SUBQ Furosemide 20 MG QAM PO Famotidine 20 MG BID PO Meropenem 500 MG Q6H IV (DC) Meropenem 500 MG Q6H IV Sterile Water 10 ML Metformin HCl 500 MG C BK DIN PO Acetaminophen 650 MG Q4H PRN PRN PO Bisacodyl 10 MG DAILY PRN PRN PO Dextrose/Water 25 ML ASDIR PRN IV Glucagon 1 MG ASDIR PRN IM Insulin Human Lispro LOW DOSE SCALE ASDIR SUBQ Lactulose 30 ML DAILY PRN PRN PO (CKD) Magnesium Hydroxide 30 ML DAILY PRN PRN PO Ondansetron Base 4 MG Q4H PRN PRN SL Senna/Docusate Sodium 2 TAB DAILY PRN PRN PO Tramadol HCl 50 MG Q4H PRN PRN PO Physical Exam Psych: alert, normal affect HEENT: mucosal membranes moist, pupils reactive to light, sclera clear Neck: non-tender, supple, no carotid bruit, no JVD Cardiovascular: regular rate rhythm, S1/S2, no murmur Respiratory: aerating well Abdomen: soft, non-tender Functional Progress Functional progress: The data set between the solid lines has been imported from multidisciplinary team documentation. __ Functional Activity Admission Status Interim Status Toilet hygiene Partial/moderate (3) Partial/moderate (3) Toilet transfer Partial/moderate (3) Eating Setup or cleanup (5) Shower/bathing Substantial/max (2) Dressing upper body Supervision/touch (4) Dressing lower body Substantial/max (2) Transfer to/from bed to chair Wheel 50ft w/ 2 turns Wheel 150 ft Walk 50 ft w/ 2 turns Walk 150 ft Four steps __ therapy evaluations underway Results Findings/Data: Laboratory Tests: 10/06 10/06 10/05 10/05 10/05 1124 0533 2004 1935 1823 Chemistry Sodium (137 - 145 mmol/L) 131 L Potassium (3.4 - 5.0 mmol/L) 3.5 Chloride (98 - 107 mmol/L) 92 L Carbon Dioxide (22 - 30 mmol/L) 33 H BUN (9 - 20 mg/dL) 7 L Creatinine (0.7 - 1.3 mg/dL) 0.5 L Glomerular Filtr Rate (>60) 174 Glucose (74 - 106 mg/dL) 170 H POC Glucose (74 - 106 MG/DL) 181 H 126 H 151 H Calcium (8.4 - 10.2 mg/dL) 7.7 L Total Bilirubin (0.2 - 1.3 mg/dL) 0.8 Conjugated Bilirubin (0 - 0.3 mg/dL) 0 Unconjugated Bilirubin (0 - 1.1 mg/dL) 0.4 AST (15 - 46 U/L) 44 ALT (13 - 69 U/L) 43 Total Alk Phosphatase (38 - 126 U/L) 228 H Total Protein (6.3 - 8.2 g/dL) 6.3 Albumin (3.5 - 5.0 g/dL) 2.9 L Hematology WBC (5.0 - 12.0 x10 3/uL) 7.8 RBC (4.70 - 6.10 x10 6/uL) 3.25 L Hgb (14.0 - 18.0 g/dL) 10.1 L Hct (37.0 - 49.0 %) 29.9 L MCV (80 - 94 fL) 92 MCH (27 - 31 pg) 31.1 H MCHC (33 - 37 g/dL) 33.8 RDW (11.5 - 15.5 %) 13.1 Plt Count (130 - 400 x10 3/uL) 248 MPV (9.4 - 16.4 fL) 9.1 L Neut % (Auto) (43 - 65 %) 65.8 H Lymph % (Auto) (20.5 - 45.5 %) 19.6 L [place] % (Auto) (5.5 - 11.7 %) 8.6 Eos % (Auto) (0.9 - 2.9 %) 5.0 H Baso % (Auto) (0.2 - 1.0 %) 0.5 Neut # (Auto) (2.2 - 4.8 x10 3/uL) 5.12 H Lymph # (Auto) (1.3 - 2.9 x10 3/uL) 1.53 [place] # (Auto) (0.3 - 0.8 x10 3/uL) 0.67 Eos # (Auto) (0.0 - 0.2 x10 3/uL) 0.39 H Baso # (Auto) (0.0 - 0.1 x10 3/uL) 0.04 Immature Gran % (0.0 - 2.0 %) 0.5 Nucleated RBC % (0 - 1.0 %) 0.0 Urines Urine Color (Yellow) Yellow Urine Appearance (Clear) Clear Urine pH (5.0 - 8.0) 6.0 Ur Specific [place] (<1.030) 1.015 Urine Protein (Negative mg/dL) NEGATIVE Urine Glucose (UA) (Negative) Negative Urine Ketones (Negative mg/dL) Negative Urine Blood (Negative) Negative Urine Nitrite (Negative) Negative Urine Bilirubin (Negative) Negative Urine Urobilinogen (Negative mg/dL) 4.0 H Ur Leukocyte Esterase (Negative) NEGATIVE Urine RBC (<4 - 5 /HPF) 0-3 Urine WBC (<4 - 5 /HPF) 0-3 Urine Bacteria (None - Rare /HPF) None Urine Mucus (<Rare /LPF) Rare Results: labs reviewed, vital signs stable, current med profile rev'd Diagnosis, Assessment Plan Problem List/A P: 1. Uncontrolled type 2 diabetes mellitus with hyperglycemia 2. Debility Free Text A P: See EHR for nursing, therapy, and CM notes Will continue current medications and treatments Orders: Procedure Date/time Status SOFT/LOW RESIDUE 10/06 B Active SELF CARE/HOME MGT TRN 15 MIN 10/06 1245 Complete OT EVAL HIGH COMPLEX [id number] 10/06 1245 Complete Rehab attestation: Face to face exam completed. Treatment plan discussed with patient. Meets continued stay criteria. Agree with interdisciplinary treatment plan. at 1325 [facility] #:[id number] END OF REPORT [facility] 2019-10-06 18:54:00 ([facility]) Rehab History Physical REPORT#:[id number] REPORT STATUS: Signed DATE:10/06/19 TIME: 1853 PATIENT: MYA SNOWNCIO UNIT #: [id number] ROOM/BED: [address] : 48 AGE: 69 SEX: M ATTEND: Darrick Benson ADM AUTHOR: Darrick Benson * ALL edits or amendments must be made on the electronic/computer document * HPI HPI Etiologic diagnosis: debility after wound infection Impairment group: debility HPI: dict #[id number] Premorbid participation: see PAS History Past medical history: Reports: Diabetes mellitus, Hypertension. Additional surgical history: Neck surgery, 40 years ago Alcohol use: Denies EtOH use Drug use: Denies recreational drugs Smoking status for patients 13 years old or older: Never Smoker Other social history: Good social support Allergies: Coded Allergies: No Known Allergies (10/26/18) ROS ROS All systems rev neg: except as marked (see HPI, PMH) Diagnosis, Assessment Plan Diagnosis, Assessment Plan Problem List/A P: 1. Uncontrolled type 2 diabetes mellitus with hyperglycemia 2. Debility Review of comorbidities: see PAS, HPI Additional comments: POST ADMISSION PHYSICIAN EVALUATION ASSESSMENT: 1. Comparison of findings with the preadmission assessment are compatible with the post admission physician evaluation. 2. Review of the patient's prior and current medical and functional conditions have been extensively reviewed and documented in this H P, and discussed with the referring physicians, patient and family. At this time, there has been no change in the patient's current medical or functional conditions and plans to go ahead with rehab are to begin today. 3. Clinical conditions at risk as the patient participates in the rehab program and specific plans for avoidance include: a. Infection - most commonly urinary tract infection related to Villagomez catheters. Plan to avoid includes: -Removal of Villagomez when at Min Assist level, if present on admission - Monitor urinary retention - Monitor symptoms of infection b. Deep vein thrombosis - to include the upper or lower extremities. Plan to avoid includes: - DVT prophylaxis - Kavon Lyle - Close monitoring by Nursing and Therapy for signs or symptoms - Appropriate diagnostic testing c. Metabolic disorder resulting in a worsening of condition. Plan to avoid includes: - Monitoring pertinent Laboratory values - Monitoring of cognitive functioning d. Bleeding. Plan to avoid includes: - Screening for anemia - Medication to prevent bleeding - Wound assessment e. Respiratory failure due to Pneumonia, COPD, Pulmonary Embolus, Pneumothorax, or Myocardial Infarction - Plan to avoid includes: - Monitor vital signs - Monitor pulmonary function - Respiratory therapy - Radiographic imaging - Pulse Oximetry - Medication f. Altered mental status. Plan to avoid includes: - Regular Neurology checks - Assess cognitive performance with staff - Medication - Neurology consultation - Psychiatry consultation g. Falls - These can result in long bone fracture, short bone fractures, skull fracture, concussion, subdural hematoma or facial fractures. Plan to avoid includes: - Low beds - Bed and chair movement alarms - Increase level of direct supervision - Visual and Verbal reminders by all Staff h. C-difficile colitis, given that many patients coming to rehab are on antibiotics for an extended period of time. Plan to avoid includes: - Monitor bowel functions - Microbiology testing - Monitor side effects of medication - Contact Isolation i. Adverse effects of medication - frequently related to pain, sleep or anxiety medications. Plan to avoid includes: - Monitor for allergic reactions to medication - Close monitoring by staff for functional changes - Consultation with prescribing physician j. Skin breakdown - patients may come to rehab with decubiti but rarely develop new decubiti in the rehab facility. There is always a 3% to 7% risk of new skin breakdown due to debilitation, immobility and malnutrition. Plan to avoid includes: - Nursing to monitor skin, pulses, color, edema, sensation and capillary refill per shift - Air Mattress - Frequent Turning - Prevalon Boots - Consultation with Wound Care Nurse - Nutritional support k. Anorexia - caloric protein malnutrition due to multiple reasons, or a pre- existing anorexia. Plan to avoid includes: - Monitor oral intake - Weekly weights - Appetite Stimulants - Dietary Supplements - Dietitian Consultation 4. Adverse medical conditions due to current co-morbidities will be assessed daily. The patient is evaluated and all medical conditions are documented by the nursing staff, the rehab physician and consulting physicians in the daily progress notes. 5. The estimated length of stay on the rehabilitation unit is [10 days] 6. The expected course of treatment for this patient is as above. 7. The expected course of intensive rehabilitation treatment will include: a. Physical Therapy - The patient needs physical therapy for an hour and a half a day for 5 to 6 days a week, for the above estimated length of stay. Goals are to address transfers, mobility, safety precautions and durable medical equipment upon discharge. b. Occupational Therapy - For an hour and a half a day for 5 to 6 days a week, for the above estimated length of stay. Goals are to address activities of daily living, bathroom transfers, safety precautions and durable medical equipment upon discharge. c. Speech Therapy - For half hour to an hour a day for cognition evaluation and treatment, for the above estimated length of stay. Goals are to address functional communication, swallowing abilities and cognitive abilities. d. Nursing - 24 hours per day, 7 days per week, for the above estimated length of stay. Goals are to address bladder/bowel function, skin integrity, monitoring of co-morbid conditions as indicated and carryover activities of daily living, transfers and mobility when the patient is not with therapy. PHYSICIAN ADMISSION ACKNOWLEDGEMENT STATEMENT Based upon my review of this patient's condition, there is reasonable expectation that at the time of admission to the inpatient rehab facility (IRF), the patient's medical and rehabilitation needs require an inpatient stay and close physician involvement. The patient qualifies by functional and medical criteria for comprehensive inpatient rehabilitation treatment that includes interdisciplinary care and cannot be managed in other levels of care. at 1657 RPT #:[id number] END OF REPORT [facility] 2019-10-06 14:48:00 [facility] Rehab Preadmission Screen REPORT#: REPORT STATUS: DATE:10/06/19 TIME: 1448 PATIENT: SEYMOUR SNOW UNIT #: ROOM: BED: : 48 AGE: 69 SEX: M ATTEND: Darrick Benson PROJECTED ADM AUTHOR: Darrick Benson REP SRV REP SRV TM: 1448 * ALL edits or amendments must be made on the electronic/computer document * IRF Preadmission Screen Functional Assessment Level of function: The data set between the solid lines has been imported from multidisciplinary team documentation: __ Functional Assessment: Prior device use: None Prior device use additional information: Func. Task Prior LOF Current LOF Expected LOF Bathing Independent Partial/moderate asst Independent U.B. Dressing Independent Supervise/touch asst Independent L.B. Dressing Independent Partial/moderate asst Independent Bed/Ch Transf. Independent Partial/moderate asst Independent Toilet Transfer Independent Partial/moderate asst Independent Stairs Independent Partial/moderate asst Independent Language and Cognition: Patient is alert, oriented, and able to follow commands in order to participate and benefit from inpatient rehab. Patient does have some documented impaired safety awareness. Locomotion prior device use: None Locomotion prior level of function: Independent Description of prior level of locomotion: Locomotion current device: RW/FWW Locomotion current level of function: Partial/moderate asst Locomotion current distance traveled without a rest break: 20 feet Description of current level of locomotion: Slow breezy Locomotion expected level of function: Independent Description of expected level of locomotion: Using assistive devices as needed Overall functional comment: Patient presents with decreased strength, decreased balance, and decreased activity tolerance all of which negatively impact his ability to complete self care tasks and functional mobility tasks with increased independence and safety which prevents him from returning home safely at this time. __ Information From CRS PAS CRS PAS documentation: The data set between the solid lines has been imported from CRS PAS documentation. Preadmission Information: Demographics Assessment date: 10/06/19 Assessment time: 1351 Patient has an Advanced Directive: Content of advance directive/living will/plan of care: Copy of advance directive on chart: Referring physician: Tiara Primary care provider: None stated Consulting physician(s): Juanita Bradford Referral contact name: Garima Referral contact number: [phone] Referring setting: Acute hospital Impairment group: Impairment group: Debility Etiologic diagnosis: Debility due to wound infection and dehiscence Review of med conditions: Date of onset: 10/02/19 Current surgery date and type: 10/04/19 Abscess drain placement Active comorbid conditions: Gallbladder fossa abcess, Small right pleural effusion, Elevated liver enzymes, DM with hyperglycemia, HTN, Obesity, Hyperlipidemia, Hypoxia, Hypokalemia, Fever , leukocytosis, Tachycardia Past medical/surgical history: Significant for DM, HTN, and a neck surgery approximately 40 years ago. Recent history includes a laporoscopic converted to open cholecystectomy. Risk for medical/clinical complications: Injury d/t falls, Infection, Pain, Skin breakdown, Constipation, Depression, Cardiac instability, BP fluctuation, Blood sugar fluctuation, Arrhythmia, Incisional dehiscence, Hypoxia, Respiratory insufficiency Acute hospital stay summary: This 69-year-old male was transferred from rehab to acute care setting due to the development of an abscess at the gallbladder fossa with wound dehiscence following his recent open cholecystectomy. He underwent a procedure for abcess drain placement to address the drainage coming from the wound. Heavy growth of Klebsiella Pneumoniae ESBL was found in the abcess. Following his initial surgery patient did experience fever, chills, and leukocytosis. Patient has had the drain removed and a wound vac was placed to assist with wound healing. Patient has also been started on appropriate antibiotics. Patient is now medically stable and is ready for inpatient rehab to address his functional deficits related to his recent surgical procedures and subsequent hospital stays. Patient requires 24 hour medical management during this rehab stay for close monitoring of signs and symptoms of infection/worsening infection, monitoring of wound healing, blood pressure management, blood glucose level monitoring management, lab value monitoring, general cardiac monitoring during activity, pain management, and monitoring of reactions to medications. Prior to onset patient was living at home alone where he was functioning independently and continued to work. He can discharge home with his son after rehab if needed, but optimal plan is for patient to return home after rehab. Preadmit vitals: Date/Time 10/06/19 1059 Temp F Temp C 36.5 Pulse 84 RR 18 BP 118/80 SPO2% 94 Ht ft 6 Ht in 2 Wt lbs 251.000 BMI 32.2 Supporting diagnostics/labs/radiology/cardiology : Date: 10/06/19 WBC: 7.8 HGB: 10.1 HCT: 29.8 Ca: 7.7 Na: 131 K+: 3.6 Glu: 124 M.0 BUN: 7 Creat: < 0.5 Tot protein: 6.1 Alb: 2.8 PTT: PT: INR: PLT: 220 Additional labs: Cultures: 10/04/19 Wound abscess: Klebsiella Pneumoniae ESBL Imaging: Other supporting diagnostics: Neurologic status: Neurologic status: Alert, Oriented to person, Oriented to place, Oriented to time, Follows simple commands Patient's mood and behavior: Appropriate, Social Hand dominance: Right Bowel/Bladder: Continent of bladder for developmental age: Yes Number of bladder accidents in last 48 hours: Catheter type: Insertion date: Bladder comment: Aids: Continent of bowel for developmental age: Yes Number of bowel accidents in last 48 hours: Date of last BM: 10/06/19 Colostomy: Ileostomy: Bowel comment: Aids: Skin: Skin alteration: Present/Exists Skin alteration 1 Type: Incision Location: Abdomen Stage: Description: Skin alteration 2 Type: Procedure site Location: Abdomen right upper quad Stage: Description: Skin alteration 3 Type: Location: Stage: Description: Skin alteration 4 Type: Location: Stage: Description: Eating/Nutritional: Eating/nutritional requirement: Soft/low residue Eating compensatory strategies: Medication administration: IV, Medications whole, Subcutaneous Rehab needs: Special rehabilitation needs: IV/PICC/CVC, Preferred language Special rehabilitation precautions: Safety/fall, Diet, Wound vac Pre-hospital: Pre-hospital services utilized: None 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 Marital status: Hobbies/leisure activities: Prior living situation: Home Living with: Alone Living with comment: Patient did live alone but can discharge home with son if needed after rehab. Anticipated DC Plan/Post IRF: Expected discharge destination: Home Expected discharge physical layout: One story, Tub/shower combo Number of external stairs: Number of internal stairs: Grab bars location: Anticipated services upon discharge: Home health, Nursing, Occupational therapy, Physical therapy Barriers to discharge: None Options discussed with patient: Yes Options discussed with caregiver: Yes Patient agrees with program requirements: Yes Primary support contact: Patti Dickerson Relationship to patient: Son Phone number 1: [phone] Phone number 2: Caregiver availability: Evenings only Caregiver can provide: Intermittent assistance, Physical assistance Patient and caregiver goals and preferences: Patient's goal is to return to rehab and then to return home. Activity Tolerance: Current treatment interventions: Occupational therapy, Physical therapy Patient able to tolerate 3 hours of therapy a day: Yes Patient able to tolerate 15 hours of therapy a week: Altered therapy schedule comment: Acute Inpatient Rehab Plan: Estimated length of stay in days: 14 Anticipated services in acute inpatient rehab: Additional services, Rehab nursing 09/12, life sciences manager, Occupational therapy, Physical therapy Discipline Physical Therapy Occupational Therapy Speech Therapy Intensity (minutes/day) 90 90 Frequency (days/week) 5 5 Duration (# of days) 14 14 Additional services: Compressor Station Engineer CRS electronic signature: CRS #1 electronic signature: Radha Smith CRS credentials: OTR Date: 10/06/19 Time: 1436 CRS #2 electronic signature: CRS credentials: Date: Time: CRS #3 electronic signature: CRS credentials: Date: Time: Provider Pre-Admit Summary Acute IP rehab admit: criteria met MD determination Based upon my evaluation and review of the supporting assessment documentation and consultation with the preadmission display department manager, I have determined, prior to admitting this patient, that there is reasonable expectation that at the time of admission to the IRF, the patient's medical management and rehabilitation needs require an inpatient stay and close physician involvement. In addition, this patient qualifies for acute inpatient rehab admission by functional and medical criteria and can be expected to actively participate in, and benefit from, an intensive rehab therapy program. at 1448 RPT #:[id number] END OF REPORT [facility] 2019-10-06 11:53:00 [facility] General Surgery Progress Note REPORT#:[id number] REPORT STATUS: Signed DATE:10/06/19 TIME: 1153 PATIENT: SEYMOUR SNOW UNIT #: [id number] ROOM/BED: [address] : 48 AGE: 69 SEX: M ATTEND: Rocio Menjivar DO ADM AUTHOR: Jose Harris PA-C * ALL edits or amendments must be made on the electronic/computer document * General Date of surgery: 09/25/19 Status post: Laparoscopic cholecystectomy attempt then converted to open cholecystectomy. Subjective Chief Complaint: "I am OK but my stomach still hurts." HPI: POD # 11 of Lap Mag converted to open cholecystectomy. Pt. states that he is feeling better but cont. to have tenderness and pain that he localizes to the RUQ. Pt. states that he is passing gas and has had BMs. Pt. denies other c/o. Objective General VS/I O: Last Documented: Result Date Time Pulse Ox 94 10/05 1059 B/P 118/80 10/05 1059 B/P Mean 92.7 10/05 1059 O2 Delivery Nasal cannula 10/05 1059 Temp 36.5 10/05 1059 Pulse 84 10/05 1059 Resp 18 10/05 1059 O2 Flow Rate 2.534684 10/05 0708 Vital Signs Date Temp Pulse Resp B/P B/P Mean Pulse Ox FiO2 10/04-10/05 36.5-36.9 78-86 15-18 113-131/71-80 85.5-96.0 93-97 24 hour I O ending at 0700: 10/05 0700 10/04 1900 Intake Total 1400.00 2450.00 Output Total 759 3030 Balance 641.00 -580.00 Intake, IV 900.00 1250.00 Intake, Oral 500 1200 Number 1 2 Bowel Movements Number Voids 1 Output, 9 30 Drainage Output, Urine 750 3000 Patient 113.852 kg Weight Patient Weight Weight (lb): 251 Weight (oz): 8.76 Weight (kg): 113.852 Medications: Active Meds + DC'd Last 24 Hrs Magnesium MAGSS ASDIR PRN IV (DC) Magnesium 100 ML ASDIR PRN IV Magnesium Sulfate 50 ML ASDIR PRN IV Magnesium Sulfate 100 ML ASDIR PRN IV Sodium Chloride 500 ML BOLUS ONCE ONE IV (CAN) Labetalol HCl 10 MG Q6H PRN PRN IV Famotidine 20 MG BID PO Enoxaparin Sodium 40 MG DAILY SUBQ Tramadol HCl 50 MG Q4H PRN PRN PO Meropenem 500 MG Q6HR IV Sterile Water 10 ML Potassium Chloride 100 ML ASDIR PRN IV Potassium Chloride 20 MEQ ASDIR PRN PO Acetaminophen 975 MG Q12H PO Famotidine 20 MG Q12HR IV (DC) Sodium Chloride 10 ML Fluconazole 200 MG DAILY PO Furosemide 20 MG QAM PO Dextrose/Water 25 ML ASDIR PRN IV Insulin Human Lispro LOW DOSE SCALE ASDIR SUBQ Iopamidol 100 ML ONCE PRN IV Sodium Chloride 50 ML ONCE PRN IV Sodium Chloride 1,000 ML .[id number] IV Acetaminophen 650 MG Q4H PRN PRN PO Fentanyl Citrate 25 MCG Q3H PRN PRN IV Ondansetron HCl 4 MG Q4H PRN PRN IV Physical Exam Wound/incision: Location: RUQ abdomen Site condition: no erythema, wound vac in place and functioning. Cardiovascular: normal heart sounds Respiratory: aerating well, equal breath sounds, no distress, on NC Abdomen: tenderness (appropriate and in RUQ only), soft, no distention, no guarding Extremities: moves all, normal temperature Neuro/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: alert, oriented x 3 Results Findings/Data: Laboratory Tests 10/06/19317: [Embedded Image Not Available] Creatinine < 0.5 L Laboratory Tests 10/05 1619 Chemistry Sodium (137 - 145 mmol/L) 131 L Potassium (3.4 - 5.0 mmol/L) 3.6 Chloride (98 - 107 mmol/L) 95 L Carbon Dioxide (22 - 30 mmol/L) 32 H BUN (9 - 20 mg/dL) 7 L Creatinine (0.7 - 1.3 mg/dL) < 0.5 L Glomerular Filtr Rate (>60) 174 Glucose (74 - 106 mg/dL) 124 H POC Glucose (74 - 106 MG/DL) 125 H 160 H 217 H Calcium (8.4 - 10.2 mg/dL) 7.7 L Magnesium (1.6 - 2.3 mg/dL) 1.0 L Total Bilirubin (0.2 - 1.3 mg/dL) 1.1 Conjugated Bilirubin (0 - 0.3 mg/dL) 0 Unconjugated Bilirubin (0 - 1.1 mg/dL) 0.5 AST (15 - 46 U/L) 44 ALT (13 - 69 U/L) 42 Total Alk Phosphatase (38 - 126 U/L) 221 H Total Protein (6.3 - 8.2 g/dL) 6.1 L Albumin (3.5 - 5.0 g/dL) 2.8 L Laboratory Tests 10/05 0318 Hematology WBC (5.0 - 12.0 x10 3/uL) 7.8 RBC (4.70 - 6.10 x10 6/uL) 3.28 L Hgb (14.0 - 18.0 g/dL) 10.1 L Hct (37.0 - 49.0 %) 29.8 L MCV (80 - 94 fL) 91 MCH (27 - 31 pg) 30.8 MCHC (33 - 37 g/dL) 33.9 RDW (11.5 - 15.5 %) 12.9 Plt Count (130 - 400 x10 3/uL) 220 MPV (9.4 - 16.4 fL) 9.0 L Neut % (Auto) (43 - 65 %) 67.5 H Lymph % (Auto) (20.5 - 45.5 %) 18.6 L [place] % (Auto) (5.5 - 11.7 %) 7.3 Eos % (Auto) (0.9 - 2.9 %) 5.2 H Baso % (Auto) (0.2 - 1.0 %) 0.8 Neut # (Auto) (2.2 - 4.8 x10 3/uL) 5.24 H Lymph # (Auto) (1.3 - 2.9 x10 3/uL) 1.44 [place] # (Auto) (0.3 - 0.8 x10 3/uL) 0.57 Eos # (Auto) (0.0 - 0.2 x10 3/uL) 0.40 H Baso # (Auto) (0.0 - 0.1 x10 3/uL) 0.06 Immature Gran % (0.0 - 2.0 %) 0.6 Nucleated RBC % (0 - 1.0 %) 0.0 Results: labs reviewed, vital signs stable, current med profile rev'd Treatment Prophylaxis Treatment Prophylaxis Drains/tube: Drains/Tube: Percutaneous gallbladder bed drain drained 39 cc of bilious appearing fluid over past 24 H. Diagnosis, Assessment Plan Hospital course to date: Gallbladder bed abscess -liver enzymes have returned to normal levels but alk phos remains elevated. Bili is is also normal. Pt. is cleared to return to rehab from Gen surg. standpoint. -pt. will need to f/u w/ js in 10 days for wound check, staple removal and to remove drain. -General sx signs off. Free Text A P: Abdominal abscess in gallbladder fossa (7.2x2.5x3) - Pt. to have percutaneous drain placed by I.R. today. - surgical wound infx. Wound care nurse has been consulted and will place wound vac. - wound cultures obtained and sent. Micro final result was Gr. Neg rods moderate growth - documented desaturation with tachycardia 5/16 AM. CTA chest: no PE, bibasilar atelectasis with sm R pleural effusion - while inpt, ID had been consulted. Pt has remained on IV Zosyn, diflucan added 09/27 per ID. Would recommend re consulting ID Dispo: General surgery will continue to follow. Awaiting IR drainage of abdominal abscess. Please call [phone] with any questions or concerns. at 1205 RPT #:[id number] END OF REPORT [facility] 2019-10-06 11:53:00 [facility] General Surgery Progress Note REPORT#:[id number] REPORT STATUS: Signed DATE:10/06/19 TIME: 1153 PATIENT: SEYMOUR SNOW UNIT #: [id number] [address] AGE: 69 SEX: M ATTEND: Rocio Menjivar DO ADM AUTHOR: Jose Harris PA-C * ALL edits or amendments must be made on the electronic/computer document * See Addendum General Date of surgery: 09/25/19 Status post: Laparoscopic cholecystectomy attempt then converted to open cholecystectomy. Subjective Chief Complaint: "I am OK but my stomach still hurts." HPI: POD # 11 of Lap Mag converted to open cholecystectomy. Pt. states that he is feeling better but cont. to have tenderness and pain that he localizes to the RUQ. Pt. states that he is passing gas and has had BMs. Pt. denies other c/o. Objective General VS/I O: Last Documented: Result Date Time Pulse Ox 94 10/05 1059 B/P 118/80 10/05 1059 B/P Mean 92.7 10/05 1059 O2 Delivery Nasal cannula 10/05 1059 Temp 36.5 10/05 1059 Pulse 84 10/05 1059 Resp 18 10/05 1059 O2 Flow Rate [id number] 10/05 0708 Vital Signs Date Temp Pulse Resp B/P B/P Mean Pulse Ox FiO2 10/04-10/05 36.5-36.9 78-86 15- 113-131/71-80 85.5-96.0 93-97 24 hour I O ending at 0700: 10/05 0700 10/04 1900 Intake Total 1400.00 2450.00 Output Total 759 3030 Balance 641.00 -580.00 Intake, IV 900.00 1250.00 Intake, Oral 500 1200 Number 1 2 Bowel Movements Number Voids 1 Output, 9 30 Drainage Output, Urine 750 3000 Patient 113.852 kg Weight Patient Weight Weight (lb): 251 Weight (oz): 8.76 Weight (kg): 113.852 Medications: Active Meds + DC'd Last 24 Hrs Magnesium MAGSS ASDIR PRN IV (DC) Magnesium 100 ML ASDIR PRN IV Magnesium Sulfate 50 ML ASDIR PRN IV Magnesium Sulfate 100 ML ASDIR PRN IV Sodium Chloride 500 ML BOLUS ONCE ONE IV (CAN) Labetalol HCl 10 MG Q6H PRN PRN IV Famotidine 20 MG BID PO Enoxaparin Sodium 40 MG DAILY SUBQ Tramadol HCl 50 MG Q4H PRN PRN PO Meropenem 500 MG Q6HR IV Sterile Water 10 ML Potassium Chloride 100 ML ASDIR PRN IV Potassium Chloride 20 MEQ ASDIR PRN PO Acetaminophen 975 MG Q12H PO Famotidine 20 MG Q12HR IV (DC) Sodium Chloride 10 ML Fluconazole 200 MG DAILY PO Furosemide 20 MG QAM PO Dextrose/Water 25 ML ASDIR PRN IV Insulin Human Lispro LOW DOSE SCALE ASDIR SUBQ Iopamidol 100 ML ONCE PRN IV Sodium Chloride 50 ML ONCE PRN IV Sodium Chloride 1,000 ML .[id number] IV Acetaminophen 650 MG Q4H PRN PRN PO Fentanyl Citrate 25 MCG Q3H PRN PRN IV Ondansetron HCl 4 MG Q4H PRN PRN IV Physical Exam Wound/incision: Location: RUQ abdomen Site condition: no erythema, wound vac in place and functioning. Cardiovascular: normal heart sounds Respiratory: aerating well, equal breath sounds, no distress, on NC Abdomen: tenderness (appropriate and in RUQ only), soft, no distention, no guarding Extremities: moves all, normal temperature Neuro/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: alert, oriented x 3 Results Findings/Data: Laboratory Tests 10/06/19317: [Embedded Image Not Available] Creatinine < 0.5 L Laboratory Tests 10/05 161 Chemistry Sodium (137 - 145 mmol/L) 131 L Potassium (3.4 - 5.0 mmol/L) 3.6 Chloride (98 - 107 mmol/L) 95 L Carbon Dioxide (22 - 30 mmol/L) 32 H BUN (9 - 20 mg/dL) 7 L Creatinine (0.7 - 1.3 mg/dL) < 0.5 L Glomerular Filtr Rate (>60) 174 Glucose (74 - 106 mg/dL) 124 H POC Glucose (74 - 106 MG/DL) 125 H 160 H 217 H Calcium (8.4 - 10.2 mg/dL) 7.7 L Magnesium (1.6 - 2.3 mg/dL) 1.0 L Total Bilirubin (0.2 - 1.3 mg/dL) 1.1 Conjugated Bilirubin (0 - 0.3 mg/dL) 0 Unconjugated Bilirubin (0 - 1.1 mg/dL) 0.5 AST (15 - 46 U/L) 44 ALT (13 - 69 U/L) 42 Total Alk Phosphatase (38 - 126 U/L) 221 H Total Protein (6.3 - 8.2 g/dL) 6.1 L Albumin (3.5 - 5.0 g/dL) 2.8 L Laboratory Tests 10/05 317 Hematology WBC (5.0 - 12.0 x10 3/uL) 7.8 RBC (4.70 - 6.10 x10 6/uL) 3.28 L Hgb (14.0 - 18.0 g/dL) 10.1 L Hct (37.0 - 49.0 %) 29.8 L MCV (80 - 94 fL) 91 MCH (27 - 31 pg) 30.8 MCHC (33 - 37 g/dL) 33.9 RDW (11.5 - 15.5 %) 12.9 Plt Count (130 - 400 x10 3/uL) 220 MPV (9.4 - 16.4 fL) 9.0 L Neut % (Auto) (43 - 65 %) 67.5 H Lymph % (Auto) (20.5 - 45.5 %) 18.6 L [place] % (Auto) (5.5 - 11.7 %) 7.3 Eos % (Auto) (0.9 - 2.9 %) 5.2 H Baso % (Auto) (0.2 - 1.0 %) 0.8 Neut # (Auto) (2.2 - 4.8 x10 3/uL) 5.24 H Lymph # (Auto) (1.3 - 2.9 x10 3/uL) 1.44 [place] # (Auto) (0.3 - 0.8 x10 3/uL) 0.57 Eos # (Auto) (0.0 - 0.2 x10 3/uL) 0.40 H Baso # (Auto) (0.0 - 0.1 x10 3/uL) 0.06 Immature Gran % (0.0 - 2.0 %) 0.6 Nucleated RBC % (0 - 1.0 %) 0.0 Results: labs reviewed, vital signs stable, current med profile rev'd Treatment Prophylaxis Treatment Prophylaxis Drains/tube: Drains/Tube: Percutaneous gallbladder bed drain drained 39 cc of bilious appearing fluid over past 24 H. Diagnosis, Assessment Plan Hospital course to date: Gallbladder bed abscess -liver enzymes have returned to normal levels but alk phos remains elevated. Bili is is also normal. Pt. is cleared to return to rehab from Gen surg. standpoint. -pt. will need to f/u w/ js in 10 days for wound check, staple removal and to remove drain. -General sx signs off. Free Text A P: Abdominal abscess in gallbladder fossa (7.2x2.5x3) - Pt. to have percutaneous drain placed by I.R. today. - surgical wound infx. Wound care nurse has been consulted and will place wound vac. - wound cultures obtained and sent. Micro final result was Gr. Neg rods moderate growth - documented desaturation with tachycardia 5/16 AM. CTA chest: no PE, bibasilar atelectasis with sm R pleural effusion - while inpt, ID had been consulted. Pt has remained on IV Zosyn, diflucan added 09/27 per ID. Would recommend re consulting ID Dispo: General surgery will continue to follow. Awaiting IR drainage of abdominal abscess. Please call [phone] with any questions or concerns. at 1205 Addendum 1: 10/06/19 1644 by Jose Harris PA-C for Judith Mccoy MD Please disregard the "Free Text A P" above. It copied over from an old note. at 1646 RPT #:[id number] END OF REPORT [facility] 2019-10-06 11:53:00 [facility]) General Surgery Progress Note REPORT#:[id number] REPORT STATUS: Signed DATE:10/06/19 TIME: 1153 PATIENT: SEYMOUR SNOW UNIT #: [id number] ROOM/BED: [address] : 48 AGE: 69 SEX: M ATTEND: Rocio Menjivar DO ADM AUTHOR: Jose Harris PA-C * ALL edits or amendments must be made on the electronic/computer document * See Addendum Jose Harris 10/06/19 1153: General Date of surgery: 09/25/19 Status post: Laparoscopic cholecystectomy attempt then converted to open cholecystectomy. Subjective Chief Complaint: "I am OK but my stomach still hurts." HPI: POD # 11 of Lap Mag converted to open cholecystectomy. Pt. states that he is feeling better but cont. to have tenderness and pain that he localizes to the RUQ. Pt. states that he is passing gas and has had BMs. Pt. denies other c/o. Objective General VS/I O: Last Documented: Result Date Time Pulse Ox 94 10/05 1059 B/P 118/80 10/05 1059 B/P Mean 92.7 10/05 1059 O2 Delivery Nasal cannula 10/05 1059 Temp 36.5 10/05 1059 Pulse 84 10/05 1059 Resp 18 10/05 1059 O2 Flow Rate 2.500620 10/05 0708 Vital Signs Date Temp Pulse Resp B/P B/P Mean Pulse Ox FiO2 10/04-10/05 36.5-36.9 78-86 15-18 113-131/71-80 85.5-96.0 93-97 24 hour I O ending at 0700: 10/05 0700 10/04 1900 Intake Total 1400.00 2450.00 Output Total 759 3030 Balance 641.00 -580.00 Intake, IV 900.00 1250.00 Intake, Oral 500 1200 Number 1 2 Bowel Movements Number Voids 1 Output, 9 30 Drainage Output, Urine 750 3000 Patient 113.852 kg Weight Patient Weight Weight (lb): 251 Weight (oz): 8.76 Weight (kg): 113.852 Medications: Active Meds + DC'd Last 24 Hrs Magnesium MAGSS ASDIR PRN IV (DC) Magnesium 100 ML ASDIR PRN IV Magnesium Sulfate 50 ML ASDIR PRN IV Magnesium Sulfate 100 ML ASDIR PRN IV Sodium Chloride 500 ML BOLUS ONCE ONE IV (CAN) Labetalol HCl 10 MG Q6H PRN PRN IV Famotidine 20 MG BID PO Enoxaparin Sodium 40 MG DAILY SUBQ Tramadol HCl 50 MG Q4H PRN PRN PO Meropenem 500 MG Q6HR IV Sterile Water 10 ML Potassium Chloride 100 ML ASDIR PRN IV Potassium Chloride 20 MEQ ASDIR PRN PO Acetaminophen 975 MG Q12H PO Famotidine 20 MG Q12HR IV (DC) Sodium Chloride 10 ML Fluconazole 200 MG DAILY PO Furosemide 20 MG QAM PO Dextrose/Water 25 ML ASDIR PRN IV Insulin Human Lispro LOW DOSE SCALE ASDIR SUBQ Iopamidol 100 ML ONCE PRN IV Sodium Chloride 50 ML ONCE PRN IV Sodium Chloride 1,000 ML .[id number] IV Acetaminophen 650 MG Q4H PRN PRN PO Fentanyl Citrate 25 MCG Q3H PRN PRN IV Ondansetron HCl 4 MG Q4H PRN PRN IV Physical Exam Wound/incision: Location: RUQ abdomen Site condition: no erythema, wound vac in place and functioning. Cardiovascular: normal heart sounds Respiratory: aerating well, equal breath sounds, no distress, on NC Abdomen: tenderness (appropriate and in RUQ only), soft, no distention, no guarding Extremities: moves all, normal temperature Neuro/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: alert, oriented x 3 Results Findings/Data: Laboratory Tests 10/06/19317: [Embedded Image Not Available] Creatinine < 0.5 L Laboratory Tests 10/05 1619 Chemistry Sodium (137 - 145 mmol/L) 131 L Potassium (3.4 - 5.0 mmol/L) 3.6 Chloride (98 - 107 mmol/L) 95 L Carbon Dioxide (22 - 30 mmol/L) 32 H BUN (9 - 20 mg/dL) 7 L Creatinine (0.7 - 1.3 mg/dL) < 0.5 L Glomerular Filtr Rate (>60) 174 Glucose (74 - 106 mg/dL) 124 H POC Glucose (74 - 106 MG/DL) 125 H 160 H 217 H Calcium (8.4 - 10.2 mg/dL) 7.7 L Magnesium (1.6 - 2.3 mg/dL) 1.0 L Total Bilirubin (0.2 - 1.3 mg/dL) 1.1 Conjugated Bilirubin (0 - 0.3 mg/dL) 0 Unconjugated Bilirubin (0 - 1.1 mg/dL) 0.5 AST (15 - 46 U/L) 44 ALT (13 - 69 U/L) 42 Total Alk Phosphatase (38 - 126 U/L) 221 H Total Protein (6.3 - 8.2 g/dL) 6.1 L Albumin (3.5 - 5.0 g/dL) 2.8 L Laboratory Tests 10/05 317 Hematology WBC (5.0 - 12.0 x10 3/uL) 7.8 RBC (4.70 - 6.10 x10 6/uL) 3.28 L Hgb (14.0 - 18.0 g/dL) 10.1 L Hct (37.0 - 49.0 %) 29.8 L MCV (80 - 94 fL) 91 MCH (27 - 31 pg) 30.8 MCHC (33 - 37 g/dL) 33.9 RDW (11.5 - 15.5 %) 12.9 Plt Count (130 - 400 x10 3/uL) 220 MPV (9.4 - 16.4 fL) 9.0 L Neut % (Auto) (43 - 65 %) 67.5 H Lymph % (Auto) (20.5 - 45.5 %) 18.6 L [place] % (Auto) (5.5 - 11.7 %) 7.3 Eos % (Auto) (0.9 - 2.9 %) 5.2 H Baso % (Auto) (0.2 - 1.0 %) 0.8 Neut # (Auto) (2.2 - 4.8 x10 3/uL) 5.24 H Lymph # (Auto) (1.3 - 2.9 x10 3/uL) 1.44 [place] # (Auto) (0.3 - 0.8 x10 3/uL) 0.57 Eos # (Auto) (0.0 - 0.2 x10 3/uL) 0.40 H Baso # (Auto) (0.0 - 0.1 x10 3/uL) 0.06 Immature Gran % (0.0 - 2.0 %) 0.6 Nucleated RBC % (0 - 1.0 %) 0.0 Results: labs reviewed, vital signs stable, current med profile rev'd Treatment Prophylaxis Treatment Prophylaxis Drains/tube: Drains/Tube: Percutaneous gallbladder bed drain drained 39 cc of bilious appearing fluid over past 24 H. Diagnosis, Assessment Plan Hospital course to date: Gallbladder bed abscess -liver enzymes have returned to normal levels but alk phos remains elevated. Bili is is also normal. Pt. is cleared to return to rehab from Gen surg. standpoint. -pt. will need to f/u w/ js in 10 days for wound check, staple removal and to remove drain. -General sx signs off. Free Text A P: Abdominal abscess in gallbladder fossa (7.2x2.5x3) - Pt. to have percutaneous drain placed by I.R. today. - surgical wound infx. Wound care nurse has been consulted and will place wound vac. - wound cultures obtained and sent. Micro final result was Gr. Neg rods moderate growth - documented desaturation with tachycardia 5/16 AM. CTA chest: no PE, bibasilar atelectasis with sm R pleural effusion - while inpt, ID had been consulted. Pt has remained on IV Zosyn, diflucan added 09/27 per ID. Would recommend re consulting ID Dispo: General surgery will continue to follow. Awaiting IR drainage of abdominal abscess. Please call [phone] with any questions or concerns. Judith Mccoy 10/06/19 1719: Attestations Physician Attestation Reviewed findings plan: Reviewed the findings and plan as documented above Pt doing well today, no events overnight IRdrain with 40cc bilious output. Wound vac changed. Wound with good grannulation tissue. Pt can return to rehab today. Continue abx. OK to DC baljeet in 2 days. May return to our clinic upon discharge from rehab. Pt is to keep drain until clinic appointment. at 1205 Addendum 1: 10/06/19 1644 by Jose Harris PA-C for Judith Mccoy MD Please disregard the "Free Text A P" above. It copied over from an old note. at 1646 RPT #:[id number] END OF REPORT [facility] 2019-10-06 11:53:00 [facility] General Surgery Progress Note REPORT#:[id number] REPORT STATUS: Signed DATE:10/06/19 TIME: 1153 PATIENT: MYA SNOWNCIO UNIT #: [id number] ROOM/BED: [address] : 48 AGE: 69 SEX: M ATTEND: Rocio Menjivar DO ADM AUTHOR: Jose Harris PA-C * ALL edits or amendments must be made on the electronic/computer document * See Addendum Jose Harris 10/06/19 1153: General Date of surgery: 09/25/19 Status post: Laparoscopic cholecystectomy attempt then converted to open cholecystectomy. Subjective Chief Complaint: "I am OK but my stomach still hurts." HPI: POD # 11 of Lap Mag converted to open cholecystectomy. Pt. states that he is feeling better but cont. to have tenderness and pain that he localizes to the RUQ. Pt. states that he is passing gas and has had BMs. Pt. denies other c/o. Objective General VS/I O: Last Documented: Result Date Time Pulse Ox 94 10/05 1059 B/P 118/80 10/05 1059 B/P Mean 92.7 10/05 1059 O2 Delivery Nasal cannula 10/05 1059 Temp 36.5 10/05 1059 Pulse 84 10/05 1059 Resp 18 10/05 1059 O2 Flow Rate 2.978724 10/05 0708 Vital Signs Date Temp Pulse Resp B/P B/P Mean Pulse Ox FiO2 10/04-10/05 36.5-36.9 78-86 15-18 113-131/71-80 85.5-96.0 93-97 24 hour I O ending at 0700: 10/05 0700 10/04 1900 Intake Total 1400.00 2450.00 Output Total 759 3030 Balance 641.00 -580.00 Intake, IV 900.00 1250.00 Intake, Oral 500 1200 Number 1 2 Bowel Movements Number Voids 1 Output, 9 30 Drainage Output, Urine 750 3000 Patient 113.852 kg Weight Patient Weight Weight (lb): 251 Weight (oz): 8.76 Weight (kg): 113.852 Medications: Active Meds + DC'd Last 24 Hrs Magnesium MAGSS ASDIR PRN IV (DC) Magnesium 100 ML ASDIR PRN IV Magnesium Sulfate 50 ML ASDIR PRN IV Magnesium Sulfate 100 ML ASDIR PRN IV Sodium Chloride 500 ML BOLUS ONCE ONE IV (CAN) Labetalol HCl 10 MG Q6H PRN PRN IV Famotidine 20 MG BID PO Enoxaparin Sodium 40 MG DAILY SUBQ Tramadol HCl 50 MG Q4H PRN PRN PO Meropenem 500 MG Q6HR IV Sterile Water 10 ML Potassium Chloride 100 ML ASDIR PRN IV Potassium Chloride 20 MEQ ASDIR PRN PO Acetaminophen 975 MG Q12H PO Famotidine 20 MG Q12HR IV (DC) Sodium Chloride 10 ML Fluconazole 200 MG DAILY PO Furosemide 20 MG QAM PO Dextrose/Water 25 ML ASDIR PRN IV Insulin Human Lispro LOW DOSE SCALE ASDIR SUBQ Iopamidol 100 ML ONCE PRN IV Sodium Chloride 50 ML ONCE PRN IV Sodium Chloride 1,000 ML .[id number] IV Acetaminophen 650 MG Q4H PRN PRN PO Fentanyl Citrate 25 MCG Q3H PRN PRN IV Ondansetron HCl 4 MG Q4H PRN PRN IV Physical Exam Wound/incision: Location: RUQ abdomen Site condition: no erythema, wound vac in place and functioning. Cardiovascular: normal heart sounds Respiratory: aerating well, equal breath sounds, no distress, on NC Abdomen: tenderness (appropriate and in RUQ only), soft, no distention, no guarding Extremities: moves all, normal temperature Neuro/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: alert, oriented x 3 Results Findings/Data: Laboratory Tests 10/06/19317: [Embedded Image Not Available] Creatinine < 0.5 L Laboratory Tests 10/0529 317 1999 1619 Chemistry Sodium (137 - 145 mmol/L) 131 L Potassium (3.4 - 5.0 mmol/L) 3.6 Chloride (98 - 107 mmol/L) 95 L Carbon Dioxide (22 - 30 mmol/L) 32 H BUN (9 - 20 mg/dL) 7 L Creatinine (0.7 - 1.3 mg/dL) < 0.5 L Glomerular Filtr Rate (>60) 174 Glucose (74 - 106 mg/dL) 124 H POC Glucose (74 - 106 MG/DL) 125 H 160 H 217 H Calcium (8.4 - 10.2 mg/dL) 7.7 L Magnesium (1.6 - 2.3 mg/dL) 1.0 L Total Bilirubin (0.2 - 1.3 mg/dL) 1.1 Conjugated Bilirubin (0 - 0.3 mg/dL) 0 Unconjugated Bilirubin (0 - 1.1 mg/dL) 0.5 AST (15 - 46 U/L) 44 ALT (13 - 69 U/L) 42 Total Alk Phosphatase (38 - 126 U/L) 221 H Total Protein (6.3 - 8.2 g/dL) 6.1 L Albumin (3.5 - 5.0 g/dL) 2.8 L Laboratory Tests 05/20 0318 Hematology WBC (5.0 - 12.0 x10 3/uL) 7.8 RBC (4.70 - 6.10 x10 6/uL) 3.28 L Hgb (14.0 - 18.0 g/dL) 10.1 L Hct (37.0 - 49.0 %) 29.8 L MCV (80 - 94 fL) 91 MCH (27 - 31 pg) 30.8 MCHC (33 - 37 g/dL) 33.9 RDW (11.5 - 15.5 %) 12.9 Plt Count (130 - 400 x10 3/uL) 220 MPV (9.4 - 16.4 fL) 9.0 L Neut % (Auto) (43 - 65 %) 67.5 H Lymph % (Auto) (20.5 - 45.5 %) 18.6 L [place] % (Auto) (5.5 - 11.7 %) 7.3 Eos % (Auto) (0.9 - 2.9 %) 5.2 H Baso % (Auto) (0.2 - 1.0 %) 0.8 Neut # (Auto) (2.2 - 4.8 x10 3/uL) 5.24 H Lymph # (Auto) (1.3 - 2.9 x10 3/uL) 1.44 [place] # (Auto) (0.3 - 0.8 x10 3/uL) 0.57 Eos # (Auto) (0.0 - 0.2 x10 3/uL) 0.40 H Baso # (Auto) (0.0 - 0.1 x10 3/uL) 0.06 Immature Gran % (0.0 - 2.0 %) 0.6 Nucleated RBC % (0 - 1.0 %) 0.0 Results: labs reviewed, vital signs stable, current med profile rev'd Treatment Prophylaxis Treatment Prophylaxis Drains/tube: Drains/Tube: Percutaneous gallbladder bed drain drained 39 cc of bilious appearing fluid over past 24 H. Diagnosis, Assessment Plan Hospital course to date: Gallbladder bed abscess -liver enzymes have returned to normal levels but alk phos remains elevated. Bili is is also normal. Pt. is cleared to return to rehab from Gen surg. standpoint. -pt. will need to f/u w/ js in 10 days for wound check, staple removal and to remove drain. -General sx signs off. Free Text A P: Abdominal abscess in gallbladder fossa (7.2x2.5x3) - Pt. to have percutaneous drain placed by I.R. today. - surgical wound infx. Wound care nurse has been consulted and will place wound vac. - wound cultures obtained and sent. Micro final result was Gr. Neg rods moderate growth - documented desaturation with tachycardia 5/16 AM. CTA chest: no PE, bibasilar atelectasis with sm R pleural effusion - while inpt, ID had been consulted. Pt has remained on IV Zosyn, diflucan added 09/27 per ID. Would recommend re consulting ID Dispo: General surgery will continue to follow. Awaiting IR drainage of abdominal abscess. Please call [phone] with any questions or concerns. Judith Mccoy 10/06/19 1719: Attestations Physician Attestation Reviewed findings plan: Reviewed the findings and plan as documented above Pt doing well today, no events overnight IRdrain with 40cc bilious output. Wound vac changed. Wound with good grannulation tissue. Pt can return to rehab today. Continue abx. OK to DC baljeet in 2 days. May return to our clinic upon discharge from rehab. Pt is to keep drain until clinic appointment. at 1205 at 1747 Addendum 1: 10/06/19 1644 by Jose Harris PA-C Please disregard the "Free Text A P" above. It copied over from an old note. at 1646 at 1747 RPT #:[id number] END OF REPORT [facility] 2019-10-06 09:07:00 ([facility]) Discharge Summary REPORT#:[id number] REPORT STATUS: Signed DATE:10/06/19 TIME: 906 PATIENT: JAYLA MAINSEYMOUR VELASQUEZ UNIT #: [id number] ROOM/BED: [address] : 48 AGE: 69 SEX: M ATTEND: Rocio Menjivar DO ADM AUTHOR: Rosa Martinez * ALL edits or amendments must be made on the electronic/computer document * PCP PCP PCP: PCP: No Primary or Family Physician Discharge to: rehab General Information Date of admission: Observation Start Date: Date of admission: 10/02/19 Discharge date: 10/06/19 Hospital course: 69yo M re-admitted for continued management s/p open cholecystectomy and found to have developing abscess in the gallbladder fossa #Cholecystitis -pt was in rehab and readmitted for open cholecystetomy with developing abscess -VARUN s/p lap>open mag(09/24) -CT abd/pelv 09/27 with post op changes, no discrete defined fluid collection -CTA chest with no evidence of pulmonary embolism -drain removed by GS, pt to f/u with GS in clinic 10/08/19 -repeat CT abd/pelvis 10/02 with developing abscess in gallbladder fossa -consult to wound care nurse for possible wound vac placement -GS with recs for IR to place drain -U/S guidied 10Fr abscess drain placement 10/03. Samples were sent to lab for analysis. -ID has changed ABT to meropenem -wound vac placed 10/03 -notified GI reconstructive surgeon, Dr. Moctezuma, and discussed lab values and concern for possible bili leak. He does not do ERCPs and since drain is in place and labs are stable, we can monitor labs, evaluate drainage output, and if ERCP is needed at a later time, GI can be consulted in rehab for possible ERCP. # Small right pleural effusion -continue low dose lasix #Elevated LFTs -improved #T2DM: hyperglycemic; A1c 9.5 -continues on metformin, continue PRN SSI #HTN -continue losartan #Obesity: BMI > 30 -weight loss counseling #HLD: -LDL 101 -recommend healthy dietary changes #Chest pain -reported yesterday 10/03 when wound vac applied -CE x 1 negative -EKG NSR -pt denies chest pain today #DVT Prophylaxis -Lovenox DISPO: continue IV merrem per ID plan for d/c to rehab today d/w GI and since drain in place, we can monitor labs and drainage output; if ERCP needed at later time, will consult GI in rehab Consultants: trauma service Pt. condition on discharge: improved, stable Allergies: Allergies: No Known Allergies (Coded, 10/26/18) Med Rec Med Rec Discharge meds: Continue taking these medications: LOSARTAN (COZAAR) 50 MG TAB 50 MILLIGRAM ORAL TWICE DAILY. FLUCONAZOLE (DIFLUCAN) 200 MG TAB 200 MILLIGRAM ORAL DAILY. Days = 4 methocarbamoL (ROBAXIN) 500 MG TAB 500 MILLIGRAM ORAL TWICE DAILY. Days = 7 ACETAMINOPHEN (TYLENOL) 325 MG TAB 650 MILLIGRAM ORAL EVERY 8 HOURS. as needed for pain Days = 30 traMADol (ULTRAM) 50 MG TAB 50 MILLIGRAM ORAL EVERY 4 HOURS NEEDED. as needed for Pain Scale 7-10 Days = 30 BISACODYL EC (DULCOLAX EC) 5 MG TAB.DR 10 MILLIGRAM ORAL DAILY NEEDED. as needed for CONSTIPATION Days = 30 POLYETHYLENE GLYCOL 3350 (MIRALAX) 17 GM POWDER 1 PACKET ORAL DAILY. Days = 30 metFORMIN (GLUCOPHAGE) 500 MG TAB 500 MILLIGRAM ORAL WITH BREAKFAST AND DINNER. Days = 30 MEROPENEM (MERREM) 500 MG VIAL 500 MILLIGRAM INTRAVENOUS EVERY 6 HOURS. Qty = 30 FAMOTIDINE (PEPCID) 20 MG TAB 20 MILLIGRAM ORAL TWICE DAILY. Start taking the following new medications: FUROSEMIDE (LASIX) 20 MG TAB 20 MILLIGRAM ORAL EVERY MORNING. Qty = 30 No Refills Objective VS/I O Last Documented: Result Date Time Pulse Ox 95 10/06 727 B/P 122/78 10/06 727 B/P Mean 92.5 10/06 727 O2 Delivery Room air 10/06 727 Temp 36.5 10/05 07 Pulse 81 10/05 07 Resp 17 10/06 727 O2 Flow Rate 2.387146 10/05 0708 24 hour I O ending at 0700: 10/05 0700 10/04 1900 Intake Total 1400.00 2450.00 Output Total 759 3030 Balance 641.00 -580.00 Intake, IV 900.00 1250.00 Intake, Oral 500 1200 Number 1 2 Bowel Movements Number Voids 1 Output, 9 30 Drainage Output, Urine 750 3000 Patient 113.852 kg Weight Patient Weight Weight (lb): 251 Weight (oz): 8.76 Weight (kg): 113.852 General appearance: obese, alert, awake, oriented Head/Eyes: atraumatic, EOMI, normocephalic ENT: dry mucosal membrane Cardiovascular: normal heart sounds Respiratory: aerating well, symmetric expansion GI: distended, wound vac percutaneous drain Extremities: moves all Neuro/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: alert, oriented X 3, normal speech Skin: noted wound vac on abdomen noted perc drain in upper abdomen Psychiatry: normal affect Results Findings/Data: Laboratory Tests: 10/05 10/05 10/04 10/04 10/04 0529 0318 1999 1619 1102 Chemistry Sodium (137 - 145 mmol/L) 131 L Potassium (3.4 - 5.0 mmol/L) 3.6 Chloride (98 - 107 mmol/L) 95 L Carbon Dioxide (22 - 30 mmol/L) 32 H BUN (9 - 20 mg/dL) 7 L Creatinine (0.7 - 1.3 mg/dL) < 0.5 L Glomerular Filtr Rate (>60) 174 Glucose (74 - 106 mg/dL) 124 H POC Glucose (74 - 106 MG/DL) 125 H 160 H 217 H 224 H Calcium (8.4 - 10.2 mg/dL) 7.7 L Magnesium (1.6 - 2.3 mg/dL) 1.0 L Total Bilirubin (0.2 - 1.3 mg/dL) 1.1 Conjugated Bilirubin (0 - 0.3 mg/dL) 0 Unconjugated Bilirubin (0 - 1.1 0.5 mg/dL) AST (15 - 46 U/L) 44 ALT (13 - 69 U/L) 42 Total Alk Phosphatase (38 - 126 U/L) 221 H Total Protein (6.3 - 8.2 g/dL) 6.1 L Albumin (3.5 - 5.0 g/dL) 2.8 L Hematology WBC (5.0 - 12.0 x10 3/uL) 7.8 RBC (4.70 - 6.10 x10 6/uL) 3.28 L Hgb (14.0 - 18.0 g/dL) 10.1 L Hct (37.0 - 49.0 %) 29.8 L MCV (80 - 94 fL) 91 MCH (27 - 31 pg) 30.8 MCHC (33 - 37 g/dL) 33.9 RDW (11.5 - 15.5 %) 12.9 Plt Count (130 - 400 x10 3/uL) 220 MPV (9.4 - 16.4 fL) 9.0 L Neut % (Auto) (43 - 65 %) 67.5 H Lymph % (Auto) (20.5 - 45.5 %) 18.6 L [place] % (Auto) (5.5 - 11.7 %) 7.3 Eos % (Auto) (0.9 - 2.9 %) 5.2 H Baso % (Auto) (0.2 - 1.0 %) 0.8 Neut # (Auto) (2.2 - 4.8 x10 3/uL) 5.24 H Lymph # (Auto) (1.3 - 2.9 x10 3/uL) 1.44 [place] # (Auto) (0.3 - 0.8 x10 3/uL) 0.57 Eos # (Auto) (0.0 - 0.2 x10 3/uL) 0.40 H Baso # (Auto) (0.0 - 0.1 x10 3/uL) 0.06 Immature Gran % (0.0 - 2.0 %) 0.6 Nucleated RBC % (0 - 1.0 %) 0.0 Results: labs reviewed, vital signs stable Discharge Instructions Diet: soft low residue Activity: as tolerated Discharge management: greater than 30 mins at 1507 RPT #:[id number] END OF REPORT [facility] 2019-10-06 09:07:00 ([facility]) Discharge Summary REPORT#:[id number] REPORT STATUS: Signed DATE:10/06/19 TIME: 906 PATIENT: SEYMOUR SNOW UNIT #: [id number] ROOM/BED: [address] : 48 AGE: 69 SEX: M ATTEND: Rocio Menjivar DO ADM AUTHOR: Rosa Martinez * ALL edits or amendments must be made on the electronic/computer document * PCP PCP PCP: PCP: No Primary or Family Physician Discharge to: rehab General Information Date of admission: Observation Start Date: Date of admission: 10/02/19 Discharge date: 10/06/19 Hospital course: 69yo M re-admitted for continued management s/p open cholecystectomy and found to have developing abscess in the gallbladder fossa #Cholecystitis -pt was in rehab and readmitted for open cholecystetomy with developing abscess -VARUN s/p lap>open mag(09/24) -CT abd/pelv 09/27 with post op changes, no discrete defined fluid collection -CTA chest with no evidence of pulmonary embolism -drain removed by GS, pt to f/u with GS in clinic 10/08/19 -repeat CT abd/pelvis 10/02 with developing abscess in gallbladder fossa -consult to wound care nurse for possible wound vac placement -GS with recs for IR to place drain -U/S guidied 10Fr abscess drain placement 10/03. Samples were sent to lab for analysis. -ID has changed ABT to meropenem -wound vac placed 10/03 -notified GI reconstructive surgeon, Dr. Moctezuma, and discussed lab values and concern for possible bili leak. He does not do ERCPs and since drain is in place and labs are stable, we can monitor labs, evaluate drainage output, and if ERCP is needed at a later time, GI can be consulted in rehab for possible ERCP. # Small right pleural effusion -continue low dose lasix #Elevated LFTs -improved #T2DM: hyperglycemic; A1c 9.5 -continues on metformin, continue PRN SSI #HTN -continue losartan #Obesity: BMI > 30 -weight loss counseling #HLD: -LDL 101 -recommend healthy dietary changes #Chest pain -reported yesterday 10/03 when wound vac applied -CE x 1 negative -EKG NSR -pt denies chest pain today #DVT Prophylaxis -Lovenox DISPO: continue IV merrem per ID plan for d/c to rehab today d/w GI and since drain in place, we can monitor labs and drainage output; if ERCP needed at later time, will consult GI in rehab Consultants: trauma service Pt. condition on discharge: improved, stable Allergies: Allergies: No Known Allergies (Coded, 10/26/18) Med Rec Med Rec Discharge meds: Continue taking these medications: LOSARTAN (COZAAR) 50 MG TAB 50 MILLIGRAM ORAL TWICE DAILY. FLUCONAZOLE (DIFLUCAN) 200 MG TAB 200 MILLIGRAM ORAL DAILY. Days = 4 methocarbamoL (ROBAXIN) 500 MG TAB 500 MILLIGRAM ORAL TWICE DAILY. Days = 7 ACETAMINOPHEN (TYLENOL) 325 MG TAB 650 MILLIGRAM ORAL EVERY 8 HOURS. as needed for pain Days = 30 traMADol (ULTRAM) 50 MG TAB 50 MILLIGRAM ORAL EVERY 4 HOURS NEEDED. as needed for Pain Scale 7-10 Days = 30 BISACODYL EC (DULCOLAX EC) 5 MG TAB.DR 10 MILLIGRAM ORAL DAILY NEEDED. as needed for CONSTIPATION Days = 30 POLYETHYLENE GLYCOL 3350 (MIRALAX) 17 GM POWDER 1 PACKET ORAL DAILY. Days = 30 metFORMIN (GLUCOPHAGE) 500 MG TAB 500 MILLIGRAM ORAL WITH BREAKFAST AND DINNER. Days = 30 MEROPENEM (MERREM) 500 MG VIAL 500 MILLIGRAM INTRAVENOUS EVERY 6 HOURS. Qty = 30 FAMOTIDINE (PEPCID) 20 MG TAB 20 MILLIGRAM ORAL TWICE DAILY. Start taking the following new medications: FUROSEMIDE (LASIX) 20 MG TAB 20 MILLIGRAM ORAL EVERY MORNING. Qty = 30 No Refills Objective VS/I O Last Documented: Result Date Time Pulse Ox 95 10/05 0728 B/P 122/78 10/05 0728 B/P Mean 92.5 10/05 0728 O2 Delivery Room air 10/05 0728 Temp 36.5 10/05 0728 Pulse 81 10/05 0728 Resp 17 10/05 0728 O2 Flow Rate 2.382254 10/05 0708 24 hour I O ending at 0700: 10/05 0700 10/04 1900 Intake Total 1400.00 2450.00 Output Total 759 3030 Balance 641.00 -580.00 Intake, IV 900.00 1250.00 Intake, Oral 500 1200 Number 1 2 Bowel Movements Number Voids 1 Output, 9 30 Drainage Output, Urine 750 3000 Patient 113.852 kg Weight Patient Weight Weight (lb): 251 Weight (oz): 8.76 Weight (kg): 113.852 General appearance: obese, alert, awake, oriented Head/Eyes: atraumatic, EOMI, normocephalic ENT: dry mucosal membrane Cardiovascular: normal heart sounds Respiratory: aerating well, symmetric expansion GI: distended, wound vac percutaneous drain Extremities: moves all Neuro/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: alert, oriented X 3, normal speech Skin: noted wound vac on abdomen noted perc drain in upper abdomen Psychiatry: normal affect Results Findings/Data: Laboratory Tests: 10/05 10/05 10/04 10/04 10/04 0529 8 1999 1619 1102 Chemistry Sodium (137 - 145 mmol/L) 131 L Potassium (3.4 - 5.0 mmol/L) 3.6 Chloride (98 - 107 mmol/L) 95 L Carbon Dioxide (22 - 30 mmol/L) 32 H BUN (9 - 20 mg/dL) 7 L Creatinine (0.7 - 1.3 mg/dL) < 0.5 L Glomerular Filtr Rate (>60) 174 Glucose (74 - 106 mg/dL) 124 H POC Glucose (74 - 106 MG/DL) 125 H 160 H 217 H 224 H Calcium (8.4 - 10.2 mg/dL) 7.7 L Magnesium (1.6 - 2.3 mg/dL) 1.0 L Total Bilirubin (0.2 - 1.3 mg/dL) 1.1 Conjugated Bilirubin (0 - 0.3 mg/dL) 0 Unconjugated Bilirubin (0 - 1.1 0.5 mg/dL) AST (15 - 46 U/L) 44 ALT (13 - 69 U/L) 42 Total Alk Phosphatase (38 - 126 U/L) 221 H Total Protein (6.3 - 8.2 g/dL) 6.1 L Albumin (3.5 - 5.0 g/dL) 2.8 L Hematology WBC (5.0 - 12.0 x10 3/uL) 7.8 RBC (4.70 - 6.10 x10 6/uL) 3.28 L Hgb (14.0 - 18.0 g/dL) 10.1 L Hct (37.0 - 49.0 %) 29.8 L MCV (80 - 94 fL) 91 MCH (27 - 31 pg) 30.8 MCHC (33 - 37 g/dL) 33.9 RDW (11.5 - 15.5 %) 12.9 Plt Count (130 - 400 x10 3/uL) 220 MPV (9.4 - 16.4 fL) 9.0 L Neut % (Auto) (43 - 65 %) 67.5 H Lymph % (Auto) (20.5 - 45.5 %) 18.6 L [place] % (Auto) (5.5 - 11.7 %) 7.3 Eos % (Auto) (0.9 - 2.9 %) 5.2 H Baso % (Auto) (0.2 - 1.0 %) 0.8 Neut # (Auto) (2.2 - 4.8 x10 3/uL) 5.24 H Lymph # (Auto) (1.3 - 2.9 x10 3/uL) 1.44 [place] # (Auto) (0.3 - 0.8 x10 3/uL) 0.57 Eos # (Auto) (0.0 - 0.2 x10 3/uL) 0.40 H Baso # (Auto) (0.0 - 0.1 x10 3/uL) 0.06 Immature Gran % (0.0 - 2.0 %) 0.6 Nucleated RBC % (0 - 1.0 %) 0.0 Results: labs reviewed, vital signs stable Discharge Instructions Diet: soft low residue Activity: as tolerated Discharge management: greater than 30 mins at 1507 at 0929 RPT #:[id number] END OF REPORT [facility] 2019-10-06 08:32:00 [facility] Internal Medicine Prog. Note REPORT#:[id number] REPORT STATUS: Signed DATE:10/06/19 TIME: 0832 PATIENT: JAYLA SARAHSEYMOUR UNIT #: [id number] ROOM/BED: [address] : 48 AGE: 69 SEX: M ATTEND: Rocio Menjivar DO ADM AUTHOR: Rosa Martinez * ALL edits or amendments must be made on the electronic/computer document * Subjective Chief Complaint: -pt was in rehab and readmitted for open cholecystetomy with developing abscess s/p drain and wound vac 10/03 Objective General VS/I O: Vital Signs Date Temp Pulse Resp B/P B/P Mean Pulse Ox FiO2 10/04-10/05 36.5-36.9 78-86 15-18 113-131/71-79 85.5-96.0 91-97 Last Documented: Result Date Time Pulse Ox 95 10/06 727 B/P 122/78 10/06 727 B/P Mean 92.5 10/06 727 O2 Delivery Room air 10/06 727 Temp 36.5 10/06 727 Pulse 81 10/05 07 Resp 17 10/06 727 O2 Flow Rate 2.604840 10/05 0708 24 hour I O ending at 0700: 10/05 0700 10/04 1900 Intake Total 1400.00 2450.00 Output Total 759 3030 Balance 641.00 -580.00 Intake, IV 900.00 1250.00 Intake, Oral 500 1200 Number 1 2 Bowel Movements Number Voids 1 Output, 9 30 Drainage Output, Urine 750 3000 Patient 113.852 kg Weight Patient Weight Weight (lb): 251 Weight (oz): 8.76 Weight (kg): 113.852 Medications: Active Meds + DC'd Last 24 Hrs Famotidine 20 MG BID PO Enoxaparin Sodium 40 MG DAILY SUBQ Tramadol HCl 50 MG Q4H PRN PRN PO Meropenem 500 MG Q6HR IV Sterile Water 10 ML Potassium Chloride 100 ML ASDIR PRN IV Potassium Chloride 20 MEQ ASDIR PRN PO Acetaminophen 975 MG Q12H PO Famotidine 20 MG Q12HR IV (DC) Sodium Chloride 10 ML Fluconazole 200 MG DAILY PO Furosemide 20 MG QAM PO Dextrose/Water 25 ML ASDIR PRN IV Insulin Human Lispro LOW DOSE SCALE ASDIR SUBQ Iopamidol 100 ML ONCE PRN IV Sodium Chloride 50 ML ONCE PRN IV Sodium Chloride 1,000 ML .[id number] IV Acetaminophen 650 MG Q4H PRN PRN PO Fentanyl Citrate 25 MCG Q3H PRN PRN IV Ondansetron HCl 4 MG Q4H PRN PRN IV Physical Exam General appearance: alert, awake Head/Eyes: atraumatic, EOMI, normocephalic ENT: moist mucosal membranes Cardiovascular: normal heart sounds, regular rate rhythm Respiratory: aerating well Abdomen: tenderness, soft Extremities: Extremities: moves all Neuro/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: alert, oriented x 3, normal speech, mexican speaking Skin: baljeet on abdomen, open to air, c/d/i, erythema noted wound vac on RUQ, intact abdominal drain in RLQ Psychiatry: normal affect Diagnosis, Assessment Plan Free Text DxA P Notes Free text DxA P notes: 69yo M re-admitted for continued management s/p open cholecystectomy and found to have developing abscess in the gallbladder fossa #Cholecystitis -pt was in rehab and readmitted for open cholecystetomy with developing abscess -VARUN s/p lap>open mag(09/24) -CT abd/pelv 09/27 with post op changes, no discrete defined fluid collection -CTA chest with no evidence of pulmonary embolism -drain removed by GS, pt to f/u with GS in clinic 10/08/19 -repeat CT abd/pelvis 10/02 with developing abscess in gallbladder fossa -consult to wound care nurse for possible wound vac placement -GS with recs for IR to place drain -U/S guidied 10Fr abscess drain placement 10/03. Samples were sent to lab for analysis. -ID has changed ABT to meropenem -wound vac placed 10/03 -notified GI reconstructive surgeon, Dr. Moctezuma, and discussed lab values and concern for possible bili leak. He does not do ERCPs and since drain is in place and labs are stable, we can monitor labs, evaluate drainage output, and if ERCP is needed at a later time, GI can be consulted in rehab for possible ERCP. # Small right pleural effusion -continue low dose lasix #Elevated LFTs -improved #T2DM: hyperglycemic; A1c 9.5 -continues on metformin, continue PRN SSI #HTN -continue losartan #Obesity: BMI > 30 -weight loss counseling #HLD: -LDL 101 -recommend healthy dietary changes #Chest pain -reported yesterday 10/03 when wound vac applied -CE x 1 negative -EKG NSR -pt denies chest pain today #DVT Prophylaxis -Lovenox DISPO: continue IV merrem per ID plan for d/c to rehab today d/w GI and since drain in place, we can monitor labs and drainage output; if ERCP needed at later time, will consult GI in rehab at 0902 RPT #:[id number] END OF REPORT [facility] 2019-10-06 08:32:00 [facility]) Internal Medicine Prog. Note REPORT#:[id number] REPORT STATUS: Signed DATE:10/06/19 TIME: 08 PATIENT: SEYMOUR SNOW UNIT #: [id number] ROOM/BED: [address] : 48 AGE: 69 SEX: M ATTEND: Rocio Menjivar DO ADM AUTHOR: Rosa Martinez * ALL edits or amendments must be made on the electronic/computer document * See Addendum Subjective Chief Complaint: -pt was in rehab and readmitted for open cholecystetomy with developing abscess s/p drain and wound vac 10/03 Objective General VS/I O: Vital Signs Date Temp Pulse Resp B/P B/P Mean Pulse Ox FiO2 10/04-10/05 36.5-36.9 78-86 113-131/71-79 85.5-96.0 91-97 Last Documented: Result Date Time Pulse Ox 95 10/05 0728 B/P 122/78 10/05 0728 B/P Mean 92.5 10/05 0728 O2 Delivery Room air 10/05 0728 Temp 36.5 10/05 0728 Pulse 81 10/05 0728 Resp 17 10/05 0728 O2 Flow Rate 2.828909 10/05 0708 24 hour I O ending at 0700: 10/05 0700 10/04 1900 Intake Total 1400.00 2450.00 Output Total 759 3030 Balance 641.00 -580.00 Intake, IV 900.00 1250.00 Intake, Oral 500 1200 Number 1 2 Bowel Movements Number Voids 1 Output, 9 30 Drainage Output, Urine 750 3000 Patient 113.852 kg Weight Patient Weight Weight (lb): 251 Weight (oz): 8.76 Weight (kg): 113.852 Medications: Active Meds + DC'd Last 24 Hrs Famotidine 20 MG BID PO Enoxaparin Sodium 40 MG DAILY SUBQ Tramadol HCl 50 MG Q4H PRN PRN PO Meropenem 500 MG Q6HR IV Sterile Water 10 ML Potassium Chloride 100 ML ASDIR PRN IV Potassium Chloride 20 MEQ ASDIR PRN PO Acetaminophen 975 MG Q12H PO Famotidine 20 MG Q12HR IV (DC) Sodium Chloride 10 ML Fluconazole 200 MG DAILY PO Furosemide 20 MG QAM PO Dextrose/Water 25 ML ASDIR PRN IV Insulin Human Lispro LOW DOSE SCALE ASDIR SUBQ Iopamidol 100 ML ONCE PRN IV Sodium Chloride 50 ML ONCE PRN IV Sodium Chloride 1,000 ML .[id number] IV Acetaminophen 650 MG Q4H PRN PRN PO Fentanyl Citrate 25 MCG Q3H PRN PRN IV Ondansetron HCl 4 MG Q4H PRN PRN IV Physical Exam General appearance: alert, awake Head/Eyes: atraumatic, EOMI, normocephalic ENT: moist mucosal membranes Cardiovascular: normal heart sounds, regular rate rhythm Respiratory: aerating well Abdomen: tenderness, soft Extremities: Extremities: moves all Neuro/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: alert, oriented x 3, normal speech, mexican speaking Skin: baljeet on abdomen, open to air, c/d/i, erythema noted wound vac on RUQ, intact abdominal drain in RLQ Psychiatry: normal affect Diagnosis, Assessment Plan Free Text DxA P Notes Free text DxA P notes: 69yo M re-admitted for continued management s/p open cholecystectomy and found to have developing abscess in the gallbladder fossa #Cholecystitis -pt was in rehab and readmitted for open cholecystetomy with developing abscess -VARUN s/p lap>open mag(09/24) -CT abd/pelv 09/27 with post op changes, no discrete defined fluid collection -CTA chest with no evidence of pulmonary embolism -drain removed by GS, pt to f/u with GS in clinic 10/08/19 -repeat CT abd/pelvis 10/02 with developing abscess in gallbladder fossa -consult to wound care nurse for possible wound vac placement -GS with recs for IR to place drain -U/S guidied 10Fr abscess drain placement 10/03. Samples were sent to lab for analysis. -ID has changed ABT to meropenem -wound vac placed 10/03 -notified GI reconstructive surgeon, Dr. Moctezuma, and discussed lab values and concern for possible bili leak. He does not do ERCPs and since drain is in place and labs are stable, we can monitor labs, evaluate drainage output, and if ERCP is needed at a later time, GI can be consulted in rehab for possible ERCP. # Small right pleural effusion -continue low dose lasix #Elevated LFTs -improved #T2DM: hyperglycemic; A1c 9.5 -continues on metformin, continue PRN SSI #HTN -continue losartan #Obesity: BMI > 30 -weight loss counseling #HLD: -LDL 101 -recommend healthy dietary changes #Chest pain -reported yesterday 10/03 when wound vac applied -CE x 1 negative -EKG NSR -pt denies chest pain today #DVT Prophylaxis -Lovenox DISPO: continue IV merrem per ID plan for d/c to rehab today d/w GI and since drain in place, we can monitor labs and drainage output; if ERCP needed at later time, will consult GI in rehab at 0902 Addendum 1: 10/06/19 09 by Rosa Martinez #) Hypomagnesemia -replete -recheck mag at 0923 RPT #:[id number] END OF REPORT [facility] 2019-10-06 08:32:00 [facility] Internal Medicine Prog. Note REPORT#:[id number] REPORT STATUS: Signed DATE:10/06/19 TIME: 0832 PATIENT: JAYLA SARAHSEYMOUR UNIT #: [id number] ROOM/BED: [address] : 48 AGE: 69 SEX: M ATTEND: Rocio Menjivar DO ADM AUTHOR: Rosa Martinez * ALL edits or amendments must be made on the electronic/computer document * See Addendum Subjective Chief Complaint: -pt was in rehab and readmitted for open cholecystetomy with developing abscess s/p drain and wound vac 10/03 Objective General VS/I O: Vital Signs Date Temp Pulse Resp B/P B/P Mean Pulse Ox FiO2 10/04-10/05 36.5-36.9 78-86 - 113-131/71-79 85.5-96.0 91-97 Last Documented: Result Date Time Pulse Ox 95 10/05 0728 B/P 122/78 10/05 0728 B/P Mean 92.5 10/05 0728 O2 Delivery Room air 10/06 727 Temp 36.5 10/06 727 Pulse 81 10/06 727 Resp 17 10/06 727 O2 Flow Rate 2.753568 10/05 0708 24 hour I O ending at 0700: 10/05 0700 10/04 1900 Intake Total 1400.00 2450.00 Output Total 759 3030 Balance 641.00 -580.00 Intake, IV 900.00 1250.00 Intake, Oral 500 1200 Number 1 2 Bowel Movements Number Voids 1 Output, 9 30 Drainage Output, Urine 750 3000 Patient 113.852 kg Weight Patient Weight Weight (lb): 251 Weight (oz): 8.76 Weight (kg): 113.852 Medications: Active Meds + DC'd Last 24 Hrs Famotidine 20 MG BID PO Enoxaparin Sodium 40 MG DAILY SUBQ Tramadol HCl 50 MG Q4H PRN PRN PO Meropenem 500 MG Q6HR IV Sterile Water 10 ML Potassium Chloride 100 ML ASDIR PRN IV Potassium Chloride 20 MEQ ASDIR PRN PO Acetaminophen 975 MG Q12H PO Famotidine 20 MG Q12HR IV (DC) Sodium Chloride 10 ML Fluconazole 200 MG DAILY PO Furosemide 20 MG QAM PO Dextrose/Water 25 ML ASDIR PRN IV Insulin Human Lispro LOW DOSE SCALE ASDIR SUBQ Iopamidol 100 ML ONCE PRN IV Sodium Chloride 50 ML ONCE PRN IV Sodium Chloride 1,000 ML .[id number] IV Acetaminophen 650 MG Q4H PRN PRN PO Fentanyl Citrate 25 MCG Q3H PRN PRN IV Ondansetron HCl 4 MG Q4H PRN PRN IV Physical Exam General appearance: alert, awake Head/Eyes: atraumatic, EOMI, normocephalic ENT: moist mucosal membranes Cardiovascular: normal heart sounds, regular rate rhythm Respiratory: aerating well Abdomen: tenderness, soft Extremities: Extremities: moves all Neuro/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: alert, oriented x 3, normal speech, mexican speaking Skin: baljeet on abdomen, open to air, c/d/i, erythema noted wound vac on RUQ, intact abdominal drain in RLQ Psychiatry: normal affect Diagnosis, Assessment Plan Free Text DxA P Notes Free text DxA P notes: 69yo M re-admitted for continued management s/p open cholecystectomy and found to have developing abscess in the gallbladder fossa #Cholecystitis -pt was in rehab and readmitted for open cholecystetomy with developing abscess -VARUN s/p lap>open mag(09/24) -CT abd/pelv 09/27 with post op changes, no discrete defined fluid collection -CTA chest with no evidence of pulmonary embolism -drain removed by GS, pt to f/u with GS in clinic 10/08/19 -repeat CT abd/pelvis 10/02 with developing abscess in gallbladder fossa -consult to wound care nurse for possible wound vac placement -GS with recs for IR to place drain -U/S guidied 10Fr abscess drain placement 10/03. Samples were sent to lab for analysis. -ID has changed ABT to meropenem -wound vac placed 10/03 -notified GI reconstructive surgeon, Dr. Moctezuma, and discussed lab values and concern for possible bili leak. He does not do ERCPs and since drain is in place and labs are stable, we can monitor labs, evaluate drainage output, and if ERCP is needed at a later time, GI can be consulted in rehab for possible ERCP. # Small right pleural effusion -continue low dose lasix #Elevated LFTs -improved #T2DM: hyperglycemic; A1c 9.5 -continues on metformin, continue PRN SSI #HTN -continue losartan #Obesity: BMI > 30 -weight loss counseling #HLD: -LDL 101 -recommend healthy dietary changes #Chest pain -reported yesterday 10/03 when wound vac applied -CE x 1 negative -EKG NSR -pt denies chest pain today #DVT Prophylaxis -Lovenox DISPO: continue IV merrem per ID plan for d/c to rehab today d/w GI and since drain in place, we can monitor labs and drainage output; if ERCP needed at later time, will consult GI in rehab at 0902 at 0929 Addendum 1: 10/06/19 0922 by Rosa Martinez #) Hypomagnesemia -replete -recheck mag at 0923 RPT #:[id number] END OF REPORT [facility] 2019-10-05 23:59:00 [facility] Infectious Dis. Progress Note REPORT#:[id number] REPORT STATUS: Signed DATE:10/05/19 TIME: 2358 PATIENT: SEYMOUR SNOW UNIT #: [id number] ROOM/BED: [address] : 48 AGE: 69 SEX: M ATTEND: Rocio Menjivar DO ADM AUTHOR: Allie Phelps MD * ALL edits or amendments must be made on the electronic/computer document * Subjective Chief Complaint: comfortable s/p drainage Objective General VS/I O: Last Documented: Result Date Time Pulse Ox 93 10/04 2337 B/P 119/77 10/04 2337 B/P Mean 91.1 10/04 2337 Temp 98.2 10/04 2337 Pulse 78 10/04 2337 Resp 15 10/04 2337 O2 Delivery Nasal cannula 10/04 2099 O2 Flow Rate 2.652931 10/04 2099 Vital Signs Date Temp Pulse Resp B/P B/P Mean Pulse Ox FiO2 10/04 97.9-99.3 78-86 - 113-131/71-79 85.5-96.0 91-94 24 hour I O ending at 0700: 10/04 0700 10/03 1900 Intake Total Output Total 30 Balance -30 Number 0 Incontinent Voids Number Voids 6 Output, 30 Drainage Patient Weight Weight (lb): 251 Weight (oz): 8.76 Weight (kg): 113.852 Physical Exam General appearance: alert, awake, oriented Cardiovascular: normal heart sounds, regular rate rhythm Respiratory: decreased breath sounds at bases Genitourinary: normal ext. inspection, no bladder distention Extremities: no edema Results Findings/Data: Laboratory Tests 10/04 1619 1102 0505 0411 Chemistry Sodium (137 - 145 mmol/L) 136 L Potassium (3.4 - 5.0 mmol/L) 3.6 Chloride (98 - 107 mmol/L) 98 Carbon Dioxide (22 - 30 mmol/L) 31 H BUN (9 - 20 mg/dL) 4 L Creatinine (0.7 - 1.3 mg/dL) 0.5 L Glomerular Filtr Rate (>60) 174 Glucose (74 - 106 mg/dL) 121 H POC Glucose (74 - 106 MG/DL) 160 H 217 H 224 H 122 H Calcium (8.4 - 10.2 mg/dL) 8.0 L Total Bilirubin (0.2 - 1.3 mg/dL) 1.1 Conjugated Bilirubin (0 - 0.3 mg/dL) 0 Unconjugated Bilirubin (0 - 1.1 mg/dL) 0.6 AST (15 - 46 U/L) 44 ALT (13 - 69 U/L) 43 Total Alk Phosphatase (38 - 126 U/L) 223 H Total Protein (6.3 - 8.2 g/dL) 5.9 L Albumin (3.5 - 5.0 g/dL) 2.7 L Laboratory Tests 10/04 0411 Hematology WBC (5.0 - 12.0 x10 3/uL) 8.3 RBC (4.70 - 6.10 x10 6/uL) 3.26 L Hgb (14.0 - 18.0 g/dL) 10.2 L Hct (37.0 - 49.0 %) 29.7 L MCV (80 - 94 fL) 91 MCH (27 - 31 pg) 31.3 H MCHC (33 - 37 g/dL) 34.3 RDW (11.5 - 15.5 %) 13.1 Plt Count (130 - 400 x10 3/uL) 233 MPV (9.4 - 16.4 fL) 9.6 Neut % (Auto) (43 - 65 %) 70.7 H Lymph % (Auto) (20.5 - 45.5 %) 18.0 L [place] % (Auto) (5.5 - 11.7 %) 6.8 Eos % (Auto) (0.9 - 2.9 %) 3.4 H Baso % (Auto) (0.2 - 1.0 %) 0.6 Neut # (Auto) (2.2 - 4.8 x10 3/uL) 5.87 H Lymph # (Auto) (1.3 - 2.9 x10 3/uL) 1.49 [place] # (Auto) (0.3 - 0.8 x10 3/uL) 0.56 Eos # (Auto) (0.0 - 0.2 x10 3/uL) 0.28 H Baso # (Auto) (0.0 - 0.1 x10 3/uL) 0.05 Immature Gran % (0.0 - 2.0 %) 0.5 Nucleated RBC % (0 - 1.0 %) 0.0 Diagnosis, Assessment Plan Free Text A P: 1. Abscess post cholecystectomy s/p drain placement c/s with gnr pending at risk for mdro cont merrem 2. leukocytosis resolved Recs cont merrem f/u on drainage c/s at 1543 RPT #:[id number] END OF REPORT [facility] 2019-10-05 12:30:00 ([facility]) General Surgery Progress Note REPORT#:[id number] REPORT STATUS: Signed DATE:10/05/19 TIME: 1230 PATIENT: SEYMOUR SNOW UNIT #: [id number] ROOM/BED: [address] : 48 AGE: 69 SEX: M ATTEND: Rocio Menjivar DO ADM AUTHOR: Jose Harris PA-C * ALL edits or amendments must be made on the electronic/computer document * General Date of surgery: 09/25/19 Status post: Laparoscopic cholecystectomy attempt then converted to open cholecystectomy. Subjective Chief Complaint: "I am so so!" HPI: 69 y/o mexican speaking only GANDHI who is POD # 10 of a lap mag that was converted to an open cholecystectomy. Pt. had a percutaneous drain placed into the gallbladder bed yesterday. Pt. also had a wound vac placed over the surgical wound by the medical accounting clerk. Pt. states that he is weak and cont. to have aching abd. pain. Pt. does report of passing gas but denies any BM's. Pt. denies other c/o. Objective General VS/I O: Last Documented: Result Date Time Pulse Ox 91 10/04 1106 B/P 115/74 10/04 1106 B/P Mean 87.3 10/04 1106 O2 Delivery Room air 10/04 1106 Pulse 81 10/04 1106 Resp 18 10/04 1106 Temp 37.4 10/04 0821 O2 Flow Rate 2.115062 10/04 0737 Vital Signs Date Temp Pulse Resp B/P B/P Mean Pulse Ox FiO2 10/03-10/04 36.6-37.9 76-98 14-19 115-151/74-84 87.3-106.1 91-95 24 hour I O ending at 0700: 10/04 0700 10/03 1900 Intake Total Output Total 30 Balance -30 Number 0 Incontinent Voids Number Voids 6 Output, 30 Drainage Patient Weight Weight (lb): 251 Weight (oz): 8.76 Weight (kg): 114.100 Medications: Active Meds + DC'd Last 24 Hrs Enoxaparin Sodium 40 MG DAILY SUBQ Tramadol HCl 50 MG Q4H PRN PRN PO Meropenem 500 MG Q6HR IV Sterile Water 10 ML Potassium Chloride 100 ML ASDIR PRN IV Potassium Chloride 20 MEQ ASDIR PRN PO Acetaminophen 975 MG Q12H PO Famotidine 20 MG Q12HR IV (DC) Sodium Chloride 10 ML Fluconazole 200 MG DAILY PO Furosemide 20 MG QAM PO Dextrose/Water 25 ML ASDIR PRN IV Insulin Human Lispro LOW DOSE SCALE ASDIR SUBQ Iopamidol 100 ML ONCE PRN IV Sodium Chloride 50 ML ONCE PRN IV Sodium Chloride 1,000 ML .[id number] IV Acetaminophen 650 MG Q4H PRN PRN PO Fentanyl Citrate 25 MCG Q3H PRN PRN IV Ondansetron HCl 4 MG Q4H PRN PRN IV Physical Exam General appearance: alert, awake, oriented, no acute distress, pleasant, conversational, mental status normal, no respiratory distress Wound/incision: Location: RUQ abdomen Site condition: drainage (purulent), dressing saturated, no erythema Cardiovascular: normal heart sounds Respiratory: aerating well, equal breath sounds, no distress, on NC Abdomen: tenderness (appropriate), soft, no guarding Extremities: moves all, normal temperature Neuro/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: alert, oriented x 3 Results Findings/Data: Laboratory Tests 10/05/19 0411: [Embedded Image Not Available] Laboratory Tests 10/04 10/04 10/04 10/03 10/03 1102 0526 0411 1603 1523 Chemistry Sodium (137 - 145 mmol/L) 136 L Potassium (3.4 - 5.0 mmol/L) 3.6 Chloride (98 - 107 mmol/L) 98 Carbon Dioxide (22 - 30 mmol/L) 31 H BUN (9 - 20 mg/dL) 4 L Creatinine (0.7 - 1.3 mg/dL) 0.5 L Glomerular Filtr Rate (>60) 174 Glucose (74 - 106 mg/dL) 121 H POC Glucose (74 - 106 MG/DL) 224 H 122 H 203 H Calcium (8.4 - 10.2 mg/dL) 8.0 L Total Bilirubin (0.2 - 1.3 mg/dL) 1.1 Conjugated Bilirubin (0 - 0.3 mg/dL) 0 Unconjugated Bilirubin (0 - 1.1 mg/dL) 0.6 AST (15 - 46 U/L) 44 ALT (13 - 69 U/L) 43 Total Alk Phosphatase (38 - 126 U/L) 223 H Troponin I (0.012 - 0.033 ng/mL) < 0.012 L Total Protein (6.3 - 8.2 g/dL) 5.9 L Albumin (3.5 - 5.0 g/dL) 2.7 L Laboratory Tests 10/04 0411 Hematology WBC (5.0 - 12.0 x10 3/uL) 8.3 RBC (4.70 - 6.10 x10 6/uL) 3.26 L Hgb (14.0 - 18.0 g/dL) 10.2 L Hct (37.0 - 49.0 %) 29.7 L MCV (80 - 94 fL) 91 MCH (27 - 31 pg) 31.3 H MCHC (33 - 37 g/dL) 34.3 RDW (11.5 - 15.5 %) 13.1 Plt Count (130 - 400 x10 3/uL) 233 MPV (9.4 - 16.4 fL) 9.6 Neut % (Auto) (43 - 65 %) 70.7 H Lymph % (Auto) (20.5 - 45.5 %) 18.0 L [place] % (Auto) (5.5 - 11.7 %) 6.8 Eos % (Auto) (0.9 - 2.9 %) 3.4 H Baso % (Auto) (0.2 - 1.0 %) 0.6 Neut # (Auto) (2.2 - 4.8 x10 3/uL) 5.87 H Lymph # (Auto) (1.3 - 2.9 x10 3/uL) 1.49 [place] # (Auto) (0.3 - 0.8 x10 3/uL) 0.56 Eos # (Auto) (0.0 - 0.2 x10 3/uL) 0.28 H Baso # (Auto) (0.0 - 0.1 x10 3/uL) 0.05 Immature Gran % (0.0 - 2.0 %) 0.5 Nucleated RBC % (0 - 1.0 %) 0.0 Results: labs reviewed, vital signs stable, current med profile rev'd Diagnosis, Assessment Plan Hospital course to date: Gallbladder bed abscess -we are concerned about the drain OP from the percutaneous drain. It appears more bilious than purulent. We have concerns as to there being a bile leak. Recommend GI consultation. -Pt. encouraged to participate w/ PT/OT Free Text A P: Abdominal abscess in gallbladder fossa (7.2x2.5x3) - Pt. to have percutaneous drain placed by I.R. today. - surgical wound infx. Wound care nurse has been consulted and will place wound vac. - wound cultures obtained and sent. Micro final result was Gr. Neg rods moderate growth - documented desaturation with tachycardia 5/16 AM. CTA chest: no PE, bibasilar atelectasis with sm R pleural effusion - while inpt, ID had been consulted. Pt has remained on IV Zosyn, diflucan added 09/27 per ID. Would recommend re consulting ID Dispo: General surgery will continue to follow. Awaiting IR drainage of abdominal abscess. Please call [phone] with any questions or concerns. at 1242 RPT #:[id number] END OF REPORT [facility] 2019-10-05 12:30:00 [facility]) General Surgery Progress Note REPORT#:[id number] REPORT STATUS: Signed DATE:10/05/19 TIME: 1230 PATIENT: SEYMOUR SNOW UNIT #: [id number] ROOM/BED: [address] : [birth year] AGE: 69 SEX: M ATTEND: Petitt,Rocio D DO ADM AUTHOR: Jose Harris PA-C * ALL edits or amendments must be made on the electronic/computer document * Jose Harris 10/05/19 1230: General Date of surgery: 09/25/19 Status post: Laparoscopic cholecystectomy attempt then converted to open cholecystectomy. Subjective Chief Complaint: "I am so so!" HPI: 69 y/o mexican speaking only GANDHI who is POD # 10 of a lap mag that was converted to an open cholecystectomy. Pt. had a percutaneous drain placed into the gallbladder bed yesterday. Pt. also had a wound vac placed over the surgical wound by the medical accounting clerk. Pt. states that he is weak and cont. to have aching abd. pain. Pt. does report of passing gas but denies any BM's. Pt. denies other c/o. Objective General VS/I O: Last Documented: Result Date Time Pulse Ox 91 10/04 1106 B/P 115/74 10/04 1106 B/P Mean 87.3 10/04 1106 O2 Delivery Room air 10/04 1106 Pulse 81 10/04 1106 Resp 18 10/04 1106 Temp 37.4 10/04 0821 O2 Flow Rate 2.316110 10/04 0737 Vital Signs Date Temp Pulse Resp B/P B/P Mean Pulse Ox FiO2 10/03-10/04 36.6-37.9 76-98 14-19 115-151/74-84 87.3-106.1 91-95 24 hour I O ending at 0700: 10/04 0700 10/03 1900 Intake Total Output Total 30 Balance -30 Number 0 Incontinent Voids Number Voids 6 Output, 30 Drainage Patient Weight Weight (lb): 251 Weight (oz): 8.76 Weight (kg): 114.100 Medications: Active Meds + DC'd Last 24 Hrs Enoxaparin Sodium 40 MG DAILY SUBQ Tramadol HCl 50 MG Q4H PRN PRN PO Meropenem 500 MG Q6HR IV Sterile Water 10 ML Potassium Chloride 100 ML ASDIR PRN IV Potassium Chloride 20 MEQ ASDIR PRN PO Acetaminophen 975 MG Q12H PO Famotidine 20 MG Q12HR IV (DC) Sodium Chloride 10 ML Fluconazole 200 MG DAILY PO Furosemide 20 MG QAM PO Dextrose/Water 25 ML ASDIR PRN IV Insulin Human Lispro LOW DOSE SCALE ASDIR SUBQ Iopamidol 100 ML ONCE PRN IV Sodium Chloride 50 ML ONCE PRN IV Sodium Chloride 1,000 ML .[id number] IV Acetaminophen 650 MG Q4H PRN PRN PO Fentanyl Citrate 25 MCG Q3H PRN PRN IV Ondansetron HCl 4 MG Q4H PRN PRN IV Physical Exam General appearance: alert, awake, oriented, no acute distress, pleasant, conversational, mental status normal, no respiratory distress Wound/incision: Location: RUQ abdomen Site condition: drainage (purulent), dressing saturated, no erythema Cardiovascular: normal heart sounds Respiratory: aerating well, equal breath sounds, no distress, on NC Abdomen: tenderness (appropriate), soft, no guarding Extremities: moves all, normal temperature Neuro/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: alert, oriented x 3 Results Findings/Data: Laboratory Tests 10/05/19 0411: [Embedded Image Not Available] Laboratory Tests 10/04 10/04 10/04 10/03 10/03 1102 0526 0411 1603 1523 Chemistry Sodium (137 - 145 mmol/L) 136 L Potassium (3.4 - 5.0 mmol/L) 3.6 Chloride (98 - 107 mmol/L) 98 Carbon Dioxide (22 - 30 mmol/L) 31 H BUN (9 - 20 mg/dL) 4 L Creatinine (0.7 - 1.3 mg/dL) 0.5 L Glomerular Filtr Rate (>60) 174 Glucose (74 - 106 mg/dL) 121 H POC Glucose (74 - 106 MG/DL) 224 H 122 H 203 H Calcium (8.4 - 10.2 mg/dL) 8.0 L Total Bilirubin (0.2 - 1.3 mg/dL) 1.1 Conjugated Bilirubin (0 - 0.3 mg/dL) 0 Unconjugated Bilirubin (0 - 1.1 mg/dL) 0.6 AST (15 - 46 U/L) 44 ALT (13 - 69 U/L) 43 Total Alk Phosphatase (38 - 126 U/L) 223 H Troponin I (0.012 - 0.033 ng/mL) < 0.012 L Total Protein (6.3 - 8.2 g/dL) 5.9 L Albumin (3.5 - 5.0 g/dL) 2.7 L Laboratory Tests 10/04 0411 Hematology WBC (5.0 - 12.0 x10 3/uL) 8.3 RBC (4.70 - 6.10 x10 6/uL) 3.26 L Hgb (14.0 - 18.0 g/dL) 10.2 L Hct (37.0 - 49.0 %) 29.7 L MCV (80 - 94 fL) 91 MCH (27 - 31 pg) 31.3 H MCHC (33 - 37 g/dL) 34.3 RDW (11.5 - 15.5 %) 13.1 Plt Count (130 - 400 x10 3/uL) 233 MPV (9.4 - 16.4 fL) 9.6 Neut % (Auto) (43 - 65 %) 70.7 H Lymph % (Auto) (20.5 - 45.5 %) 18.0 L [place] % (Auto) (5.5 - 11.7 %) 6.8 Eos % (Auto) (0.9 - 2.9 %) 3.4 H Baso % (Auto) (0.2 - 1.0 %) 0.6 Neut # (Auto) (2.2 - 4.8 x10 3/uL) 5.87 H Lymph # (Auto) (1.3 - 2.9 x10 3/uL) 1.49 [place] # (Auto) (0.3 - 0.8 x10 3/uL) 0.56 Eos # (Auto) (0.0 - 0.2 x10 3/uL) 0.28 H Baso # (Auto) (0.0 - 0.1 x10 3/uL) 0.05 Immature Gran % (0.0 - 2.0 %) 0.5 Nucleated RBC % (0 - 1.0 %) 0.0 Results: labs reviewed, vital signs stable, current med profile rev'd Diagnosis, Assessment Plan Hospital course to date: Gallbladder bed abscess -we are concerned about the drain OP from the percutaneous drain. It appears more bilious than purulent. We have concerns as to there being a bile leak. Recommend GI consultation. -Pt. encouraged to participate w/ PT/OT Free Text A P: Abdominal abscess in gallbladder fossa (7.2x2.5x3) - Pt. to have percutaneous drain placed by I.R. today. - surgical wound infx. Wound care nurse has been consulted and will place wound vac. - wound cultures obtained and sent. Micro final result was Gr. Neg rods moderate growth - documented desaturation with tachycardia 5/16 AM. CTA chest: no PE, bibasilar atelectasis with sm R pleural effusion - while inpt, ID had been consulted. Pt has remained on IV Zosyn, diflucan added 09/27 per ID. Would recommend re consulting ID Dispo: General surgery will continue to follow. Awaiting IR drainage of abdominal abscess. Please call [phone] with any questions or concerns. Judith Mccoy 10/05/19 1731: Attestations Physician Attestation Agree w/findings plan: Agree with the findings and plan as documented As above s/p placement of abdominal drain for gallbladder fossae abscess by IR The drainage appears bilious in the drain today concerning for bile leak. It is low volume leak at this time and may be managed with a drain alone, however would consult GI for possible ERCP and due to his known cirrhosis. Will Change wound vac tomorrow with wound care. at 1242 RPT #:[id number] END OF REPORT [facility] 2019-10-05 12:30:00 [facility] General Surgery Progress Note REPORT#:[id number] REPORT STATUS: Signed DATE:10/05/19 TIME: 1230 PATIENT: JAYLA SARAHSEYMOUR UNIT #: [id number] ROOM/BED: [address] : 48 AGE: 69 SEX: M ATTEND: Rocio Menjivar DO ADM AUTHOR: Jose Harris PA-C * ALL edits or amendments must be made on the electronic/computer document * Jose Harris 10/05/19 1230: General Date of surgery: 09/25/19 Status post: Laparoscopic cholecystectomy attempt then converted to open cholecystectomy. Subjective Chief Complaint: "I am so so!" HPI: 69 y/o mexican speaking only GANDHI who is POD # 10 of a lap mag that was converted to an open cholecystectomy. Pt. had a percutaneous drain placed into the gallbladder bed yesterday. Pt. also had a wound vac placed over the surgical wound by the medical accounting clerk. Pt. states that he is weak and cont. to have aching abd. pain. Pt. does report of passing gas but denies any BM's. Pt. denies other c/o. Objective General VS/I O: Last Documented: Result Date Time Pulse Ox 91 10/04 1106 B/P 115/74 10/04 1106 B/P Mean 87.3 10/04 1106 O2 Delivery Room air 10/04 1106 Pulse 81 10/04 1106 Resp 18 10/04 1106 Temp 37.4 10/04 0821 O2 Flow Rate 2.907339 10/04 0737 Vital Signs Date Temp Pulse Resp B/P B/P Mean Pulse Ox FiO2 10/03-10/04 36.6-37.9 76-98 14-19 115-151/74-84 87.3-106.1 91-95 24 hour I O ending at 0700: 10/04 0700 10/03 1900 Intake Total Output Total 30 Balance -30 Number 0 Incontinent Voids Number Voids 6 Output, 30 Drainage Patient Weight Weight (lb): 251 Weight (oz): 8.76 Weight (kg): 114.100 Medications: Active Meds + DC'd Last 24 Hrs Enoxaparin Sodium 40 MG DAILY SUBQ Tramadol HCl 50 MG Q4H PRN PRN PO Meropenem 500 MG Q6HR IV Sterile Water 10 ML Potassium Chloride 100 ML ASDIR PRN IV Potassium Chloride 20 MEQ ASDIR PRN PO Acetaminophen 975 MG Q12H PO Famotidine 20 MG Q12HR IV (DC) Sodium Chloride 10 ML Fluconazole 200 MG DAILY PO Furosemide 20 MG QAM PO Dextrose/Water 25 ML ASDIR PRN IV Insulin Human Lispro LOW DOSE SCALE ASDIR SUBQ Iopamidol 100 ML ONCE PRN IV Sodium Chloride 50 ML ONCE PRN IV Sodium Chloride 1,000 ML .[id number] IV Acetaminophen 650 MG Q4H PRN PRN PO Fentanyl Citrate 25 MCG Q3H PRN PRN IV Ondansetron HCl 4 MG Q4H PRN PRN IV Physical Exam General appearance: alert, awake, oriented, no acute distress, pleasant, conversational, mental status normal, no respiratory distress Wound/incision: Location: RUQ abdomen Site condition: drainage (purulent), dressing saturated, no erythema Cardiovascular: normal heart sounds Respiratory: aerating well, equal breath sounds, no distress, on NC Abdomen: tenderness (appropriate), soft, no guarding Extremities: moves all, normal temperature Neuro/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: alert, oriented x 3 Results Findings/Data: Laboratory Tests 10/05/19410: [Embedded Image Not Available] Laboratory Tests 10/04 10/04 10/04 10/03 10/03 1102 0526 0411 1603 1523 Chemistry Sodium (137 - 145 mmol/L) 136 L Potassium (3.4 - 5.0 mmol/L) 3.6 Chloride (98 - 107 mmol/L) 98 Carbon Dioxide (22 - 30 mmol/L) 31 H BUN (9 - 20 mg/dL) 4 L Creatinine (0.7 - 1.3 mg/dL) 0.5 L Glomerular Filtr Rate (>60) 174 Glucose (74 - 106 mg/dL) 121 H POC Glucose (74 - 106 MG/DL) 224 H 122 H 203 H Calcium (8.4 - 10.2 mg/dL) 8.0 L Total Bilirubin (0.2 - 1.3 mg/dL) 1.1 Conjugated Bilirubin (0 - 0.3 mg/dL) 0 Unconjugated Bilirubin (0 - 1.1 mg/dL) 0.6 AST (15 - 46 U/L) 44 ALT (13 - 69 U/L) 43 Total Alk Phosphatase (38 - 126 U/L) 223 H Troponin I (0.012 - 0.033 ng/mL) < 0.012 L Total Protein (6.3 - 8.2 g/dL) 5.9 L Albumin (3.5 - 5.0 g/dL) 2.7 L Laboratory Tests 10/04 410 Hematology WBC (5.0 - 12.0 x10 3/uL) 8.3 RBC (4.70 - 6.10 x10 6/uL) 3.26 L Hgb (14.0 - 18.0 g/dL) 10.2 L Hct (37.0 - 49.0 %) 29.7 L MCV (80 - 94 fL) 91 MCH (27 - 31 pg) 31.3 H MCHC (33 - 37 g/dL) 34.3 RDW (11.5 - 15.5 %) 13.1 Plt Count (130 - 400 x10 3/uL) 233 MPV (9.4 - 16.4 fL) 9.6 Neut % (Auto) (43 - 65 %) 70.7 H Lymph % (Auto) (20.5 - 45.5 %) 18.0 L [place] % (Auto) (5.5 - 11.7 %) 6.8 Eos % (Auto) (0.9 - 2.9 %) 3.4 H Baso % (Auto) (0.2 - 1.0 %) 0.6 Neut # (Auto) (2.2 - 4.8 x10 3/uL) 5.87 H Lymph # (Auto) (1.3 - 2.9 x10 3/uL) 1.49 [place] # (Auto) (0.3 - 0.8 x10 3/uL) 0.56 Eos # (Auto) (0.0 - 0.2 x10 3/uL) 0.28 H Baso # (Auto) (0.0 - 0.1 x10 3/uL) 0.05 Immature Gran % (0.0 - 2.0 %) 0.5 Nucleated RBC % (0 - 1.0 %) 0.0 Results: labs reviewed, vital signs stable, current med profile rev'd Diagnosis, Assessment Plan Hospital course to date: Gallbladder bed abscess -we are concerned about the drain OP from the percutaneous drain. It appears more bilious than purulent. We have concerns as to there being a bile leak. Recommend GI consultation. -Pt. encouraged to participate w/ PT/OT Free Text A P: Abdominal abscess in gallbladder fossa (7.2x2.5x3) - Pt. to have percutaneous drain placed by I.R. today. - surgical wound infx. Wound care nurse has been consulted and will place wound vac. - wound cultures obtained and sent. Micro final result was Gr. Neg rods moderate growth - documented desaturation with tachycardia 5/16 AM. CTA chest: no PE, bibasilar atelectasis with sm R pleural effusion - while inpt, ID had been consulted. Pt has remained on IV Zosyn, diflucan added 09/27 per ID. Would recommend re consulting ID Dispo: General surgery will continue to follow. Awaiting IR drainage of abdominal abscess. Please call [phone] with any questions or concerns. DariusJudith 10/05/19 1731: Attestations Physician Attestation Agree w/findings plan: Agree with the findings and plan as documented As above s/p placement of abdominal drain for gallbladder fossae abscess by IR The drainage appears bilious in the drain today concerning for bile leak. It is low volume leak at this time and may be managed with a drain alone, however would consult GI for possible ERCP and due to his known cirrhosis. Will Change wound vac tomorrow with wound care. at 1242 RPT #:[id number] END OF REPORT [facility] 2019-10-05 12:30:00 [facility] General Surgery Progress Note REPORT#:[id number] REPORT STATUS: Signed DATE:10/05/19 TIME: 1230 PATIENT: JAYLA SARAHSEYMOUR UNIT #: [id number] ROOM/BED: [address] : [birth year] AGE: 69 SEX: M ATTEND: Rocio Menjivar DO ADM AUTHOR: Jose Harris PA-C * ALL edits or amendments must be made on the electronic/computer document * Jose Harris 10/05/19 1230: General Date of surgery: 09/25/19 Status post: Laparoscopic cholecystectomy attempt then converted to open cholecystectomy. Subjective Chief Complaint: "I am so so!" HPI: 69 y/o mexican speaking only GANDHI who is POD # 10 of a lap mag that was converted to an open cholecystectomy. Pt. had a percutaneous drain placed into the gallbladder bed yesterday. Pt. also had a wound vac placed over the surgical wound by the medical accounting clerk. Pt. states that he is weak and cont. to have aching abd. pain. Pt. does report of passing gas but denies any BM's. Pt. denies other c/o. Objective General VS/I O: Last Documented: Result Date Time Pulse Ox 91 10/04 1106 B/P 115/74 10/04 1106 B/P Mean 87.3 10/04 1106 O2 Delivery Room air 10/04 1106 Pulse 81 10/04 1106 Resp 18 10/04 1106 Temp 37.4 10/04 0821 O2 Flow Rate 2.666009 10/04 0737 Vital Signs Date Temp Pulse Resp B/P B/P Mean Pulse Ox FiO2 10/03-10/04 36.6-37.9 76-98 14-19 115-151/74-84 87.3-106.1 91-95 24 hour I O ending at 0700: 10/04 0700 10/03 1900 Intake Total Output Total 30 Balance -30 Number 0 Incontinent Voids Number Voids 6 Output, 30 Drainage Patient Weight Weight (lb): 251 Weight (oz): 8.76 Weight (kg): 114.100 Medications: Active Meds + DC'd Last 24 Hrs Enoxaparin Sodium 40 MG DAILY SUBQ Tramadol HCl 50 MG Q4H PRN PRN PO Meropenem 500 MG Q6HR IV Sterile Water 10 ML Potassium Chloride 100 ML ASDIR PRN IV Potassium Chloride 20 MEQ ASDIR PRN PO Acetaminophen 975 MG Q12H PO Famotidine 20 MG Q12HR IV (DC) Sodium Chloride 10 ML Fluconazole 200 MG DAILY PO Furosemide 20 MG QAM PO Dextrose/Water 25 ML ASDIR PRN IV Insulin Human Lispro LOW DOSE SCALE ASDIR SUBQ Iopamidol 100 ML ONCE PRN IV Sodium Chloride 50 ML ONCE PRN IV Sodium Chloride 1,000 ML .[id number] IV Acetaminophen 650 MG Q4H PRN PRN PO Fentanyl Citrate 25 MCG Q3H PRN PRN IV Ondansetron HCl 4 MG Q4H PRN PRN IV Physical Exam General appearance: alert, awake, oriented, no acute distress, pleasant, conversational, mental status normal, no respiratory distress Wound/incision: Location: RUQ abdomen Site condition: drainage (purulent), dressing saturated, no erythema Cardiovascular: normal heart sounds Respiratory: aerating well, equal breath sounds, no distress, on NC Abdomen: tenderness (appropriate), soft, no guarding Extremities: moves all, normal temperature Neuro/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: alert, oriented x 3 Results Findings/Data: Laboratory Tests 10/05/19 0411: [Embedded Image Not Available] Laboratory Tests 10/04 10/04 10/04 10/03 10/03 1102 0526 0411 1603 1523 Chemistry Sodium (137 - 145 mmol/L) 136 L Potassium (3.4 - 5.0 mmol/L) 3.6 Chloride (98 - 107 mmol/L) 98 Carbon Dioxide (22 - 30 mmol/L) 31 H BUN (9 - 20 mg/dL) 4 L Creatinine (0.7 - 1.3 mg/dL) 0.5 L Glomerular Filtr Rate (>60) 174 Glucose (74 - 106 mg/dL) 121 H POC Glucose (74 - 106 MG/DL) 224 H 122 H 203 H Calcium (8.4 - 10.2 mg/dL) 8.0 L Total Bilirubin (0.2 - 1.3 mg/dL) 1.1 Conjugated Bilirubin (0 - 0.3 mg/dL) 0 Unconjugated Bilirubin (0 - 1.1 mg/dL) 0.6 AST (15 - 46 U/L) 44 ALT (13 - 69 U/L) 43 Total Alk Phosphatase (38 - 126 U/L) 223 H Troponin I (0.012 - 0.033 ng/mL) < 0.012 L Total Protein (6.3 - 8.2 g/dL) 5.9 L Albumin (3.5 - 5.0 g/dL) 2.7 L Laboratory Tests 10/04 0411 Hematology WBC (5.0 - 12.0 x10 3/uL) 8.3 RBC (4.70 - 6.10 x10 6/uL) 3.26 L Hgb (14.0 - 18.0 g/dL) 10.2 L Hct (37.0 - 49.0 %) 29.7 L MCV (80 - 94 fL) 91 MCH (27 - 31 pg) 31.3 H MCHC (33 - 37 g/dL) 34.3 RDW (11.5 - 15.5 %) 13.1 Plt Count (130 - 400 x10 3/uL) 233 MPV (9.4 - 16.4 fL) 9.6 Neut % (Auto) (43 - 65 %) 70.7 H Lymph % (Auto) (20.5 - 45.5 %) 18.0 L [place] % (Auto) (5.5 - 11.7 %) 6.8 Eos % (Auto) (0.9 - 2.9 %) 3.4 H Baso % (Auto) (0.2 - 1.0 %) 0.6 Neut # (Auto) (2.2 - 4.8 x10 3/uL) 5.87 H Lymph # (Auto) (1.3 - 2.9 x10 3/uL) 1.49 [place] # (Auto) (0.3 - 0.8 x10 3/uL) 0.56 Eos # (Auto) (0.0 - 0.2 x10 3/uL) 0.28 H Baso # (Auto) (0.0 - 0.1 x10 3/uL) 0.05 Immature Gran % (0.0 - 2.0 %) 0.5 Nucleated RBC % (0 - 1.0 %) 0.0 Results: labs reviewed, vital signs stable, current med profile rev'd Diagnosis, Assessment Plan Hospital course to date: Gallbladder bed abscess -we are concerned about the drain OP from the percutaneous drain. It appears more bilious than purulent. We have concerns as to there being a bile leak. Recommend GI consultation. -Pt. encouraged to participate w/ PT/OT Free Text A P: Abdominal abscess in gallbladder fossa (7.2x2.5x3) - Pt. to have percutaneous drain placed by I.R. today. - surgical wound infx. Wound care nurse has been consulted and will place wound vac. - wound cultures obtained and sent. Micro final result was Gr. Neg rods moderate growth - documented desaturation with tachycardia 5/16 AM. CTA chest: no PE, bibasilar atelectasis with sm R pleural effusion - while inpt, ID had been consulted. Pt has remained on IV Zosyn, diflucan added 09/27 per ID. Would recommend re consulting ID Dispo: General surgery will continue to follow. Awaiting IR drainage of abdominal abscess. Please call [phone] with any questions or concerns. Judith Mccoy 10/05/19 1731: Attestations Physician Attestation Agree w/findings plan: Agree with the findings and plan as documented As above s/p placement of abdominal drain for gallbladder fossae abscess by IR The drainage appears bilious in the drain today concerning for bile leak. It is low volume leak at this time and may be managed with a drain alone, however would consult GI for possible ERCP and due to his known cirrhosis. Will Change wound vac tomorrow with wound care. at 1242 at [id number] RPT #:[id number] END OF REPORT [facility] 2019-10-05 10:04:00 [facility] Internal Medicine Prog. Note REPORT#:[id number] REPORT STATUS: Signed DATE:10/05/19 TIME: 1004 PATIENT: SEMYOUR SNOW UNIT #: [id number] ROOM/BED: [address] : 48 AGE: 69 SEX: M ATTEND: Rocio Menjivar DO ADM AUTHOR: Rosa Martinez * ALL edits or amendments must be made on the electronic/computer document * Subjective Chief Complaint: -pt was in rehab and readmitted for open cholecystetomy with developing abscess s/p drain and wound vac 10/03 HPI: A 69-year-old male with past medical history of hypertension, type 2 diabetes mellitus, and hyperlipidemia, was recently admitted to hospital for acute cystitis. He underwent laparoscopic cholecystectomy, which got converted to open on 09/25/2019. Hospital course included desaturation, at that time, CT angiogram was done that was negative for pulmonary embolism. He required the CATHRYN drain to be placed. The patient was receiving IV antibiotics, Zosyn and then added Diflucan by infectious disease. He was then discharged to rehab on 10/01/2019. During the rehab, the patient is noted to have increasing drainage from the incision along with some areas of wound dehiscence. The patient was having adjacent cellulitis changes, so admitted back to the hospital. He only had low-grade fever, but otherwise pain at the incision site is controlled. He also denied any shortness of breath, vomiting, and diarrhea. He does have nausea. Objective General VS/I O: Vital Signs Date Temp Pulse Resp B/P B/P Mean Pulse Ox FiO2 10/03-10/04 36.6-37.9 75-98 14-19 126-151/75-84 92.2-106.1 91-95 Last Documented: Result Date Time Pulse Ox 92 10/04 0821 B/P 127/75 10/04 08 B/P Mean 92.2 10/04 0821 O2 Delivery Room air 10/04 820 Temp 37.4 10/04 820 Pulse 82 10/04 820 Resp 18 10/04 820 O2 Flow Rate 2.762499 10/04 0637 24 hour I O ending at 0700: 10/04 0700 10/03 1900 Intake Total Output Total 30 Balance -30 Number 0 Incontinent Voids Number Voids 6 Output, 30 Drainage Patient Weight Weight (lb): 251 Weight (oz): 8.76 Weight (kg): 114.100 Medications: Active Meds + DC'd Last 24 Hrs Tramadol HCl 50 MG Q4H PRN PRN PO Meropenem 500 MG Q6HR IV Sterile Water 10 ML Potassium Chloride 100 ML ASDIR PRN IV Potassium Chloride 20 MEQ ASDIR PRN PO Acetaminophen 975 MG Q12H PO Famotidine 20 MG Q12HR IV Sodium Chloride 10 ML Fluconazole 200 MG DAILY PO Furosemide 20 MG QAM PO Dextrose/Water 25 ML ASDIR PRN IV Insulin Human Lispro LOW DOSE SCALE ASDIR SUBQ Iopamidol 100 ML ONCE PRN IV Sodium Chloride 50 ML ONCE PRN IV Sodium Chloride 1,000 ML .[id number] IV Acetaminophen 650 MG Q4H PRN PRN PO Fentanyl Citrate 25 MCG Q3H PRN PRN IV Ondansetron HCl 4 MG Q4H PRN PRN IV Physical Exam General appearance: respiratory support, alert, awake, oriented, no acute distress Head/Eyes: atraumatic, EOMI, normocephalic ENT: moist mucosal membranes Cardiovascular: normal heart sounds, regular rate rhythm Respiratory: aerating well Abdomen: tenderness, soft Extremities: Extremities: moves all Neuro/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: alert, oriented x 3, normal speech, mexican speaking Skin: baljeet on abdomen, open to air, c/d/i, erythema noted wound vac on RUQ, intact abdominal drain in RLQ Psychiatry: normal affect Results Findings/Data: Laboratory Tests 10/05/19 0411: [Embedded Image Not Available] Laboratory Tests 10/04 10/04 10/03 10/03 10/03 0526 0411 1603 1523 1137 Chemistry Sodium (137 - 145 mmol/L) 136 L Potassium (3.4 - 5.0 mmol/L) 3.6 Chloride (98 - 107 mmol/L) 98 Carbon Dioxide (22 - 30 mmol/L) 31 H BUN (9 - 20 mg/dL) 4 L Creatinine (0.7 - 1.3 mg/dL) 0.5 L Glomerular Filtr Rate (>60) 174 Glucose (74 - 106 mg/dL) 121 H POC Glucose (74 - 106 MG/DL) 122 H 203 H 150 H Calcium (8.4 - 10.2 mg/dL) 8.0 L Total Bilirubin (0.2 - 1.3 mg/dL) 1.1 Conjugated Bilirubin (0 - 0.3 mg/dL) 0 Unconjugated Bilirubin (0 - 1.1 mg/dL) 0.6 AST (15 - 46 U/L) 44 ALT (13 - 69 U/L) 43 Total Alk Phosphatase (38 - 126 U/L) 223 H Troponin I (0.012 - 0.033 ng/mL) < 0.012 L Total Protein (6.3 - 8.2 g/dL) 5.9 L Albumin (3.5 - 5.0 g/dL) 2.7 L Laboratory Tests 10/04 0411 Hematology WBC (5.0 - 12.0 x10 3/uL) 8.3 RBC (4.70 - 6.10 x10 6/uL) 3.26 L Hgb (14.0 - 18.0 g/dL) 10.2 L Hct (37.0 - 49.0 %) 29.7 L MCV (80 - 94 fL) 91 MCH (27 - 31 pg) 31.3 H MCHC (33 - 37 g/dL) 34.3 RDW (11.5 - 15.5 %) 13.1 Plt Count (130 - 400 x10 3/uL) 233 MPV (9.4 - 16.4 fL) 9.6 Neut % (Auto) (43 - 65 %) 70.7 H Lymph % (Auto) (20.5 - 45.5 %) 18.0 L [place] % (Auto) (5.5 - 11.7 %) 6.8 Eos % (Auto) (0.9 - 2.9 %) 3.4 H Baso % (Auto) (0.2 - 1.0 %) 0.6 Neut # (Auto) (2.2 - 4.8 x10 3/uL) 5.87 H Lymph # (Auto) (1.3 - 2.9 x10 3/uL) 1.49 [place] # (Auto) (0.3 - 0.8 x10 3/uL) 0.56 Eos # (Auto) (0.0 - 0.2 x10 3/uL) 0.28 H Baso # (Auto) (0.0 - 0.1 x10 3/uL) 0.05 Immature Gran % (0.0 - 2.0 %) 0.5 Nucleated RBC % (0 - 1.0 %) 0.0 Results: labs reviewed, vital signs stable Diagnosis, Assessment Plan Free Text DxA P Notes Free text DxA P notes: 69yo M re-admitted for continued management s/p open cholecystectomy and found to have developing abscess in the gallbladder fossa #Cholecystitis -pt was in rehab and readmitted for open cholecystetomy with developing abscess -VARUN s/p lap>open mag(09/24) -CT abd/pelv 09/27 with post op changes, no discrete defined fluid collection -CTA chest with no evidence of pulmonary embolism -drain removed by GS, pt to f/u with GS in clinic 10/08/19 -repeat CT abd/pelvis 10/02 with developing abscess in gallbladder fossa -consult to wound care nurse for possible wound vac placement -GS with recs for IR to place drain -U/S guidied 10Fr abscess drain placement 10/03. Samples were sent to lab for analysis. -ID has changed ABT to meropenem -wound vac placed 10/03 # Small right pleural effusion -continue low dose lasix #Elevated LFTs -improved #T2DM: hyperglycemic; A1c 9.5 -continues on metformin, continue PRN SSI #HTN -continue losartan #Obesity: BMI > 30 -weight loss counseling #HLD: -LDL 101 -recommend healthy dietary changes #Chest pain -reported yesterday 10/03 when wound vac applied -CE x 1 negative -EKG NSR -pt denies chest pain today #DVT Prophylaxis -Lovenox DISPO: continue IV merrem per ID per surgery, patient can return to rehab tomorrow plan for d/c to rehab tomorrow at 1129 RPT #:[id number] END OF REPORT [facility] 2019-10-05 10:04:00 [facility] Internal Medicine Prog. Note REPORT#:[id number] REPORT STATUS: Signed DATE:10/05/19 TIME: 1004 PATIENT: SEYMOUR SNOW UNIT #: [id number] ROOM/BED: [address] : 48 AGE: 69 SEX: M ATTEND: Rocio Menjivar DO ADM AUTHOR: Rosa Martinez * ALL edits or amendments must be made on the electronic/computer document * Subjective Chief Complaint: -pt was in rehab and readmitted for open cholecystetomy with developing abscess s/p drain and wound vac 10/03 HPI: A 69-year-old male with past medical history of hypertension, type 2 diabetes mellitus, and hyperlipidemia, was recently admitted to hospital for acute cystitis. He underwent laparoscopic cholecystectomy, which got converted to open on 09/25/2019. Hospital course included desaturation, at that time, CT angiogram was done that was negative for pulmonary embolism. He required the CATHRYN drain to be placed. The patient was receiving IV antibiotics, Zosyn and then added Diflucan by infectious disease. He was then discharged to rehab on 10/01/2019. During the rehab, the patient is noted to have increasing drainage from the incision along with some areas of wound dehiscence. The patient was having adjacent cellulitis changes, so admitted back to the hospital. He only had low-grade fever, but otherwise pain at the incision site is controlled. He also denied any shortness of breath, vomiting, and diarrhea. He does have nausea. Objective General VS/I O: Vital Signs Date Temp Pulse Resp B/P B/P Mean Pulse Ox FiO2 10/03-10/04 36.6-37.9 75-98 14-19 126-151/75-84 92.2-106.1 91-95 Last Documented: Result Date Time Pulse Ox 92 10/04 0821 B/P 127/75 10/04 0821 B/P Mean 92.2 10/04 0821 O2 Delivery Room air 10/04 820 Temp 37.4 10/04 820 Pulse 82 10/04 820 Resp 18 05/19 0821 O2 Flow Rate 2.411530 10/04 0737 24 hour I O ending at 0700: 10/04 0700 10/03 1900 Intake Total Output Total 30 Balance -30 Number 0 Incontinent Voids Number Voids 6 Output, 30 Drainage Patient Weight Weight (lb): 251 Weight (oz): 8.76 Weight (kg): 114.100 Medications: Active Meds + DC'd Last 24 Hrs Tramadol HCl 50 MG Q4H PRN PRN PO Meropenem 500 MG Q6HR IV Sterile Water 10 ML Potassium Chloride 100 ML ASDIR PRN IV Potassium Chloride 20 MEQ ASDIR PRN PO Acetaminophen 975 MG Q12H PO Famotidine 20 MG Q12HR IV Sodium Chloride 10 ML Fluconazole 200 MG DAILY PO Furosemide 20 MG QAM PO Dextrose/Water 25 ML ASDIR PRN IV Insulin Human Lispro LOW DOSE SCALE ASDIR SUBQ Iopamidol 100 ML ONCE PRN IV Sodium Chloride 50 ML ONCE PRN IV Sodium Chloride 1,000 ML .[id number] IV Acetaminophen 650 MG Q4H PRN PRN PO Fentanyl Citrate 25 MCG Q3H PRN PRN IV Ondansetron HCl 4 MG Q4H PRN PRN IV Physical Exam General appearance: respiratory support, alert, awake, oriented, no acute distress Head/Eyes: atraumatic, EOMI, normocephalic ENT: moist mucosal membranes Cardiovascular: normal heart sounds, regular rate rhythm Respiratory: aerating well Abdomen: tenderness, soft Extremities: Extremities: moves all Neuro/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: alert, oriented x 3, normal speech, mexican speaking Skin: baljeet on abdomen, open to air, c/d/i, erythema noted wound vac on RUQ, intact abdominal drain in RLQ Psychiatry: normal affect Results Findings/Data: Laboratory Tests 10/05/19 0411: [Embedded Image Not Available] Laboratory Tests 10/04 10/04 10/03 10/03 10/03 0526 0411 1603 1523 1137 Chemistry Sodium (137 - 145 mmol/L) 136 L Potassium (3.4 - 5.0 mmol/L) 3.6 Chloride (98 - 107 mmol/L) 98 Carbon Dioxide (22 - 30 mmol/L) 31 H BUN (9 - 20 mg/dL) 4 L Creatinine (0.7 - 1.3 mg/dL) 0.5 L Glomerular Filtr Rate (>60) 174 Glucose (74 - 106 mg/dL) 121 H POC Glucose (74 - 106 MG/DL) 122 H 203 H 150 H Calcium (8.4 - 10.2 mg/dL) 8.0 L Total Bilirubin (0.2 - 1.3 mg/dL) 1.1 Conjugated Bilirubin (0 - 0.3 mg/dL) 0 Unconjugated Bilirubin (0 - 1.1 mg/dL) 0.6 AST (15 - 46 U/L) 44 ALT (13 - 69 U/L) 43 Total Alk Phosphatase (38 - 126 U/L) 223 H Troponin I (0.012 - 0.033 ng/mL) < 0.012 L Total Protein (6.3 - 8.2 g/dL) 5.9 L Albumin (3.5 - 5.0 g/dL) 2.7 L Laboratory Tests 10/04 0411 Hematology WBC (5.0 - 12.0 x10 3/uL) 8.3 RBC (4.70 - 6.10 x10 6/uL) 3.26 L Hgb (14.0 - 18.0 g/dL) 10.2 L Hct (37.0 - 49.0 %) 29.7 L MCV (80 - 94 fL) 91 MCH (27 - 31 pg) 31.3 H MCHC (33 - 37 g/dL) 34.3 RDW (11.5 - 15.5 %) 13.1 Plt Count (130 - 400 x10 3/uL) 233 MPV (9.4 - 16.4 fL) 9.6 Neut % (Auto) (43 - 65 %) 70.7 H Lymph % (Auto) (20.5 - 45.5 %) 18.0 L [place] % (Auto) (5.5 - 11.7 %) 6.8 Eos % (Auto) (0.9 - 2.9 %) 3.4 H Baso % (Auto) (0.2 - 1.0 %) 0.6 Neut # (Auto) (2.2 - 4.8 x10 3/uL) 5.87 H Lymph # (Auto) (1.3 - 2.9 x10 3/uL) 1.49 [place] # (Auto) (0.3 - 0.8 x10 3/uL) 0.56 Eos # (Auto) (0.0 - 0.2 x10 3/uL) 0.28 H Baso # (Auto) (0.0 - 0.1 x10 3/uL) 0.05 Immature Gran % (0.0 - 2.0 %) 0.5 Nucleated RBC % (0 - 1.0 %) 0.0 Results: labs reviewed, vital signs stable Diagnosis, Assessment Plan Free Text DxA P Notes Free text DxA P notes: 69yo M re-admitted for continued management s/p open cholecystectomy and found to have developing abscess in the gallbladder fossa #Cholecystitis -pt was in rehab and readmitted for open cholecystetomy with developing abscess -VARUN s/p lap>open mag(09/24) -CT abd/pelv 09/27 with post op changes, no discrete defined fluid collection -CTA chest with no evidence of pulmonary embolism -drain removed by GS, pt to f/u with GS in clinic 10/08/19 -repeat CT abd/pelvis 10/02 with developing abscess in gallbladder fossa -consult to wound care nurse for possible wound vac placement -GS with recs for IR to place drain -U/S guidied 10Fr abscess drain placement 10/03. Samples were sent to lab for analysis. -ID has changed ABT to meropenem -wound vac placed 10/03 # Small right pleural effusion -continue low dose lasix #Elevated LFTs -improved #T2DM: hyperglycemic; A1c 9.5 -continues on metformin, continue PRN SSI #HTN -continue losartan #Obesity: BMI > 30 -weight loss counseling #HLD: -LDL 101 -recommend healthy dietary changes #Chest pain -reported yesterday 10/03 when wound vac applied -CE x 1 negative -EKG NSR -pt denies chest pain today #DVT Prophylaxis -Lovenox DISPO: continue IV merrem per ID per surgery, patient can return to rehab tomorrow plan for d/c to rehab tomorrow at 1129 at 3366 RPT #:[id number] END OF REPORT [facility] 2019-10-04 12:53:00 ([facility]) Brief Op Note REPORT#:[id number] REPORT STATUS: Signed DATE:10/04/19 TIME: 1253 PATIENT: SEYMOUR SNOW UNIT #: [id number] ROOM/BED: [address] : 48 AGE: 69 SEX: M ATTEND: Lizzy Duke MD ADM AUTHOR: Juliana Weber * ALL edits or amendments must be made on the electronic/computer document * Op/Inv Proc Note - Brief Pre-procedure diagnosis: Gallbladder Fossa Abscess Post-procedure diagnosis: same as pre procedure dx Procedures performed: Abscess Drain placement Primary Surgeon: Dr Jake Grant Cake Froster(s): none Anesthesia: local anesthesia Findings: Successful ultrasound guided 10Fr abscess drain placement. Samples were sent to lab for analysis. Pt tolerated procedure well. More detailed report in PACS. Complications: none Estimated blood loss in ml's: none Specimens removed/altered: none Disposition: return to floor, stable at 1254 RPT #:[id number] END OF REPORT [facility] 2019-10-04 12:53:00 ([facility]) Brief Op Note REPORT#:[id number] REPORT STATUS: Signed DATE:10/04/19 TIME: 1253 PATIENT: SEYMOUR SNOW UNIT #: [id number] ROOM/BED: [address] : 48 AGE: 69 SEX: M ATTEND: Rocio Menjivar DO ADM AUTHOR: Juliana Weber * ALL edits or amendments must be made on the electronic/computer document * Op/Inv Proc Note - Brief Pre-procedure diagnosis: Gallbladder Fossa Abscess Post-procedure diagnosis: same as pre procedure dx Procedures performed: Abscess Drain placement Primary Surgeon: Dr Jake Grant Cake Froster(s): none Anesthesia: local anesthesia Findings: Successful ultrasound guided 10Fr abscess drain placement. Samples were sent to lab for analysis. Pt tolerated procedure well. More detailed report in PACS. Complications: none Estimated blood loss in ml's: none Specimens removed/altered: none Disposition: return to floor, stable at 1254 at 0817 RPT #:[id number] END OF REPORT [facility] 2019-10-04 12:04:00 [facility] General Surgery Progress Note REPORT#:[id number] REPORT STATUS: Signed DATE:10/04/19 TIME: 1204 PATIENT: SEYMOUR SNOW UNIT #: [id number] ROOM/BED: [address] : 48 AGE: 69 SEX: M ATTEND: Lizzy Duke MD ADM AUTHOR: Jose Harris PATraciC * ALL edits or amendments must be made on the electronic/computer document * General Date of surgery: 09/25/19 Status post: Laparoscopic cholecystectomy attempt then converted to open cholecystectomy. Antibiotics: day 1 (Meropenum 500mg q6H) Subjective Chief Complaint: "I still have pain in my stomach" HPI: 69 y/o mexican speaking only GANDHI who is POD #9 of an open cholecystectomy who was admitted yesterday for a gall bladder fossa abscess and surgical wound infection. Pt. states that his pain remains about the same as yesterday. RN reports pt. has been stable. Objective General VS/I O: Last Documented: Result Date Time Pulse Ox 94 10/03 1139 B/P 130/81 10/03 1139 B/P Mean 97.8 10/03 1139 O2 Delivery Nasal cannula 10/03 1139 Temp 36.6 10/03 1139 Pulse 75 10/03 1139 Resp 16 10/03 1139 O2 Flow Rate 2.395506 10/03 1999 Vital Signs Date Temp Pulse Resp B/P B/P Mean Pulse Ox FiO2 10/02-10/03 36.6-37.0 75-88 - 114-130/70-81 85-97.8 91-96 24 hour I O ending at 0700: 10/03 0700 10/02 1900 Intake Total 1300.00 Output Total Balance 1300.00 Intake, IV 900.00 Intake, Oral 400 Number 1 Bowel Movements Number Voids 5 Patient Weight Weight (lb): 251 Weight (oz): 8.76 Weight (kg): 114.100 Medications: Active Meds + DC'd Last 24 Hrs Meropenem 500 MG Q6HR IV Sterile Water 10 ML Potassium Chloride 100 ML ASDIR PRN IV Potassium Chloride 20 MEQ ASDIR PRN PO Acetaminophen 975 MG Q12H PO Famotidine 20 MG Q12HR IV Sodium Chloride 10 ML Fluconazole 200 MG DAILY PO Furosemide 20 MG QAM PO Dextrose/Water 25 ML ASDIR PRN IV Insulin Human Lispro LOW DOSE SCALE ASDIR SUBQ Iopamidol 100 ML ONCE PRN IV Sodium Chloride 50 ML ONCE PRN IV Piperacillin Sod/Tazobactam Sod 3.375 GM Q8H IV (DC) Sodium Chloride 100 ML Sodium Chloride 1,000 ML .[id number] IV Acetaminophen 650 MG Q4H PRN PRN PO Fentanyl Citrate 25 MCG Q3H PRN PRN IV Ondansetron HCl 4 MG Q4H PRN PRN IV Physical Exam General appearance: alert, awake, oriented, no acute distress, pleasant, conversational, mental status normal, no respiratory distress Wound/incision: Location: RUQ abdomen Site condition: drainage (purulent), dressing saturated, no erythema Abdomen: distended (mildly), tenderness (appropriate) Results Findings/Data: Laboratory Tests 10/03/19 2100: [Embedded Image Not Available] 10/03/19 1448: [Embedded Image Not Available] Laboratory Tests 10/03 10/03 10/02 10/02 10/02 1137 0619 2100 1916 1524 Chemistry Potassium (3.4 - 5.0 mmol/L) 3.8 POC Glucose (74 - 106 MG/DL) 150 H 142 H 225 H 198 H 10/02 1448 Chemistry Sodium (137 - 145 mmol/L) 135 L Potassium (3.4 - 5.0 mmol/L) 3.1 L Chloride (98 - 107 mmol/L) 96 L Carbon Dioxide (22 - 30 mmol/L) 34 H BUN (9 - 20 mg/dL) 3 L Creatinine (0.7 - 1.3 mg/dL) 0.5 L Glomerular Filtr Rate (>60) 174 Glucose (74 - 106 mg/dL) 197 H Calcium (8.4 - 10.2 mg/dL) 7.4 L Laboratory Tests 10/02 1448 Coagulation INR 1.4 PT Patient/Control Mix (9.2 - 12.1 SECONDS) 15.8 H Results: no new labs, current med profile rev'd Diagnosis, Assessment Plan Free Text A P: Abdominal abscess in gallbladder fossa (7.2x2.5x3) - Pt. to have percutaneous drain placed by I.R. today. - surgical wound infx. Wound care nurse has been consulted and will place wound vac. - wound cultures obtained and sent. Micro final result was Gr. Neg rods moderate growth - documented desaturation with tachycardia 5/16 AM. CTA chest: no PE, bibasilar atelectasis with sm R pleural effusion - while inpt, ID had been consulted. Pt has remained on IV Zosyn, diflucan added 09/27 per ID. Would recommend re consulting ID Dispo: General surgery will continue to follow. Awaiting IR drainage of abdominal abscess. Please call [phone] with any questions or concerns. at 1229 RPT #:[id number] END OF REPORT [facility] 2019-10-04 12:04:00 [facility]) General Surgery Progress Note REPORT#:[id number] REPORT STATUS: Signed DATE:10/04/19 TIME: 120 PATIENT: SEYMOUR SNOW UNIT #: [id number] ROOM/BED: [address] : 48 AGE: 69 SEX: M ATTEND: Lizzy Duke MD ADM AUTHOR: Jose Harris PA-C * ALL edits or amendments must be made on the electronic/computer document * Jose Harris 10/04/19 1204: General Date of surgery: 09/25/19 Status post: Laparoscopic cholecystectomy attempt then converted to open cholecystectomy. Antibiotics: day 1 (Meropenum 500mg q6H) Subjective Chief Complaint: "I still have pain in my stomach" HPI: 69 y/o mexican speaking only GANDHI who is POD #9 of an open cholecystectomy who was admitted yesterday for a gall bladder fossa abscess and surgical wound infection. Pt. states that his pain remains about the same as yesterday. RN reports pt. has been stable. Objective General VS/I O: Last Documented: Result Date Time Pulse Ox 94 10/03 1139 B/P 130/81 10/03 1139 B/P Mean 97.8 10/03 1139 O2 Delivery Nasal cannula 10/03 1139 Temp 36.6 10/03 1139 Pulse 75 10/03 1139 Resp 16 10/03 1139 O2 Flow Rate 2.389362 10/03 1999 Vital Signs Date Temp Pulse Resp B/P B/P Mean Pulse Ox FiO2 10/02-10/03 36.6-37.0 75-88 - 114-130/70-81 85-97.8 91-96 24 hour I O ending at 0700: 10/03 0700 10/02 1900 Intake Total 1300.00 Output Total Balance 1300.00 Intake, IV 900.00 Intake, Oral 400 Number 1 Bowel Movements Number Voids 5 Patient Weight Weight (lb): 251 Weight (oz): 8.76 Weight (kg): 114.100 Medications: Active Meds + DC'd Last 24 Hrs Meropenem 500 MG Q6HR IV Sterile Water 10 ML Potassium Chloride 100 ML ASDIR PRN IV Potassium Chloride 20 MEQ ASDIR PRN PO Acetaminophen 975 MG Q12H PO Famotidine 20 MG Q12HR IV Sodium Chloride 10 ML Fluconazole 200 MG DAILY PO Furosemide 20 MG QAM PO Dextrose/Water 25 ML ASDIR PRN IV Insulin Human Lispro LOW DOSE SCALE ASDIR SUBQ Iopamidol 100 ML ONCE PRN IV Sodium Chloride 50 ML ONCE PRN IV Piperacillin Sod/Tazobactam Sod 3.375 GM Q8H IV (DC) Sodium Chloride 100 ML Sodium Chloride 1,000 ML .[id number] IV Acetaminophen 650 MG Q4H PRN PRN PO Fentanyl Citrate 25 MCG Q3H PRN PRN IV Ondansetron HCl 4 MG Q4H PRN PRN IV Physical Exam General appearance: alert, awake, oriented, no acute distress, pleasant, conversational, mental status normal, no respiratory distress Wound/incision: Location: RUQ abdomen Site condition: drainage (purulent), dressing saturated, no erythema Abdomen: distended (mildly), tenderness (appropriate) Results Findings/Data: Laboratory Tests 10/03/19 2100: [Embedded Image Not Available] 10/03/19 1448: [Embedded Image Not Available] Laboratory Tests 10/03 10/03 10/02 10/02 10/02 1137 0619 2100 1916 1524 Chemistry Potassium (3.4 - 5.0 mmol/L) 3.8 POC Glucose (74 - 106 MG/DL) 150 H 142 H 225 H 198 H 10/02 1448 Chemistry Sodium (137 - 145 mmol/L) 135 L Potassium (3.4 - 5.0 mmol/L) 3.1 L Chloride (98 - 107 mmol/L) 96 L Carbon Dioxide (22 - 30 mmol/L) 34 H BUN (9 - 20 mg/dL) 3 L Creatinine (0.7 - 1.3 mg/dL) 0.5 L Glomerular Filtr Rate (>60) 174 Glucose (74 - 106 mg/dL) 197 H Calcium (8.4 - 10.2 mg/dL) 7.4 L Laboratory Tests 10/02 1448 Coagulation INR 1.4 PT Patient/Control Mix (9.2 - 12.1 SECONDS) 15.8 H Results: no new labs, current med profile rev'd Diagnosis, Assessment Plan Free Text A P: Abdominal abscess in gallbladder fossa (7.2x2.5x3) - Pt. to have percutaneous drain placed by I.R. today. - surgical wound infx. Wound care nurse has been consulted and will place wound vac. - wound cultures obtained and sent. Micro final result was Gr. Neg rods moderate growth - documented desaturation with tachycardia 5/16 AM. CTA chest: no PE, bibasilar atelectasis with sm R pleural effusion - while inpt, ID had been consulted. Pt has remained on IV Zosyn, diflucan added 09/27 per ID. Would recommend re consulting ID Dispo: General surgery will continue to follow. Awaiting IR drainage of abdominal abscess. Please call [phone] with any questions or concerns. Dulce Bradford 10/04/19 1235: Attestations Physician Attestation Agree w/findings plan: I was present with the PA during the history and examination. I discussed the case with the PA and agree with the findings and plan as documented in the PA's note. Patient is a 69-year-old man well-known to our service status post lap converted to open cholecystectomy with drain placement on 09/25/2019. Now with anterior abdominal wound drainage as well as gallbladder fossa abscess seen on CT scan. On my exam patient with breath sounds equal bilaterally. Nasal cannula in place. Abdomen soft, mildly tender around the incision, with improvement of prior blanching erythema. Wound dressing removed and replaced. Plan: IR perc drain of intra-abdominal abscess pending today. Wound cultures were sent at [facility]--currently growing gram-negative rods Abx per primary, ID Wound VAC to be placed today by medical accounting clerk; asked her to please undermine some of the incision with foam, to help with removal of the fluid while on suction. We will continue to follow. Labs reviewed. Pertinent imaging personally reviewed. Discussed plan with other members of the healthcare team. Dulce Bradford MD Trauma and Acute Care Surgery Surgical Critical Care at 1229 RPT #:[id number] END OF REPORT [facility] 2019-10-04 12:04:00 [facility] General Surgery Progress Note REPORT#:[id number] REPORT STATUS: Signed DATE:10/04/19 TIME: 1204 PATIENT: SEYMOUR SNOW UNIT #: [id number] ROOM/BED: [address] : 48 AGE: 69 SEX: M ATTEND: Lizzy Duke MD ADM AUTHOR: Jose Harris PA-C * ALL edits or amendments must be made on the electronic/computer document * Jose Harris 10/04/19 1204: General Date of surgery: 09/25/19 Status post: Laparoscopic cholecystectomy attempt then converted to open cholecystectomy. Antibiotics: day 1 (Meropenum 500mg q6H) Subjective Chief Complaint: "I still have pain in my stomach" HPI: 69 y/o mexican speaking only GANDHI who is POD #9 of an open cholecystectomy who was admitted yesterday for a gall bladder fossa abscess and surgical wound infection. Pt. states that his pain remains about the same as yesterday. RN reports pt. has been stable. Objective General VS/I O: Last Documented: Result Date Time Pulse Ox 94 10/03 1139 B/P 130/81 10/03 1139 B/P Mean 97.8 10/03 1139 O2 Delivery Nasal cannula 10/03 113 Temp 36.6 10/03 1139 Pulse 75 10/03 1139 Resp 16 10/03 1139 O2 Flow Rate 2.020589 10/03 1999 Vital Signs Date Temp Pulse Resp B/P B/P Mean Pulse Ox FiO2 10/02-10/03 36.6-37.0 75-88 - 114-130/70-81 85-97.8 91-96 24 hour I O ending at 0700: 10/03 0700 10/02 1900 Intake Total 1300.00 Output Total Balance 1300.00 Intake, IV 900.00 Intake, Oral 400 Number 1 Bowel Movements Number Voids 5 Patient Weight Weight (lb): 251 Weight (oz): 8.76 Weight (kg): 114.100 Medications: Active Meds + DC'd Last 24 Hrs Meropenem 500 MG Q6HR IV Sterile Water 10 ML Potassium Chloride 100 ML ASDIR PRN IV Potassium Chloride 20 MEQ ASDIR PRN PO Acetaminophen 975 MG Q12H PO Famotidine 20 MG Q12HR IV Sodium Chloride 10 ML Fluconazole 200 MG DAILY PO Furosemide 20 MG QAM PO Dextrose/Water 25 ML ASDIR PRN IV Insulin Human Lispro LOW DOSE SCALE ASDIR SUBQ Iopamidol 100 ML ONCE PRN IV Sodium Chloride 50 ML ONCE PRN IV Piperacillin Sod/Tazobactam Sod 3.375 GM Q8H IV (DC) Sodium Chloride 100 ML Sodium Chloride 1,000 ML .[id number] IV Acetaminophen 650 MG Q4H PRN PRN PO Fentanyl Citrate 25 MCG Q3H PRN PRN IV Ondansetron HCl 4 MG Q4H PRN PRN IV Physical Exam General appearance: alert, awake, oriented, no acute distress, pleasant, conversational, mental status normal, no respiratory distress Wound/incision: Location: RUQ abdomen Site condition: drainage (purulent), dressing saturated, no erythema Abdomen: distended (mildly), tenderness (appropriate) Results Findings/Data: Laboratory Tests 10/03/19 2100: [Embedded Image Not Available] 10/03/19 1448: [Embedded Image Not Available] Laboratory Tests 10/03 10/03 10/02 10/02 10/02 1137 0619 2100 1916 1524 Chemistry Potassium (3.4 - 5.0 mmol/L) 3.8 POC Glucose (74 - 106 MG/DL) 150 H 142 H 225 H 198 H 10/02 1448 Chemistry Sodium (137 - 145 mmol/L) 135 L Potassium (3.4 - 5.0 mmol/L) 3.1 L Chloride (98 - 107 mmol/L) 96 L Carbon Dioxide (22 - 30 mmol/L) 34 H BUN (9 - 20 mg/dL) 3 L Creatinine (0.7 - 1.3 mg/dL) 0.5 L Glomerular Filtr Rate (>60) 174 Glucose (74 - 106 mg/dL) 197 H Calcium (8.4 - 10.2 mg/dL) 7.4 L Laboratory Tests 10/02 1448 Coagulation INR 1.4 PT Patient/Control Mix (9.2 - 12.1 SECONDS) 15.8 H Results: no new labs, current med profile rev'd Diagnosis, Assessment Plan Free Text A P: Abdominal abscess in gallbladder fossa (7.2x2.5x3) - Pt. to have percutaneous drain placed by I.R. today. - surgical wound infx. Wound care nurse has been consulted and will place wound vac. - wound cultures obtained and sent. Micro final result was Gr. Neg rods moderate growth - documented desaturation with tachycardia 5/16 AM. CTA chest: no PE, bibasilar atelectasis with sm R pleural effusion - while inpt, ID had been consulted. Pt has remained on IV Zosyn, diflucan added 09/27 per ID. Would recommend re consulting ID Dispo: General surgery will continue to follow. Awaiting IR drainage of abdominal abscess. Please call [phone] with any questions or concerns. Dulce Bradford 10/04/19 1235: Attestations Physician Attestation Agree w/findings plan: I was present with the PA during the history and examination. I discussed the case with the PA and agree with the findings and plan as documented in the PA's note. Patient is a 69-year-old man well-known to our service status post lap converted to open cholecystectomy with drain placement on 09/25/2019. Now with anterior abdominal wound drainage as well as gallbladder fossa abscess seen on CT scan. On my exam patient with breath sounds equal bilaterally. Nasal cannula in place. Abdomen soft, mildly tender around the incision, with improvement of prior blanching erythema. Wound dressing removed and replaced. Plan: IR perc drain of intra-abdominal abscess pending today. Wound cultures were sent at [facility]--currently growing gram-negative rods Abx per primary, ID Wound VAC to be placed today by medical accounting clerk; asked her to please undermine some of the incision with foam, to help with removal of the fluid while on suction. We will continue to follow. Labs reviewed. Pertinent imaging personally reviewed. Discussed plan with other members of the healthcare team. Ducle Bradford MD Trauma and Acute Care Surgery Surgical Critical Care at 1229 at 1238 RPT #:[id number] END OF REPORT [facility] 2019-10-04 06:42:00 ([facility] Hospitalist Progress Note REPORT#:[id number] REPORT STATUS: Signed DATE:10/04/19 TIME: 06 PATIENT: SEYMOUR SNOW UNIT #: [id number] ROOM/BED: [address] : 48 AGE: 69 SEX: M ATTEND: Lizzy Duke MD ADM AUTHOR: Soto Hudson NP * ALL edits or amendments must be made on the electronic/computer document * Subjective Chief Complaint: abdominal pain improved Review of Systems Constitutional: Denies: chills, fatigue. Skin: Reports: other (abdominal incision). Denies: bruising. Allergy/Immun: Denies: allergic reaction, anaphylaxis. Eyes: Denies: redness, discharge. ENT: Denies: sore throat. Respiratory: Denies: PRITCHARD (dyspnea on exertion), SOB, wheezing. Cardiovascular: Denies: chest pain, PRITCHARD (dyspnea on exertion). GI: Reports: abdominal pain. Denies: constipation, diarrhea, nausea, vomiting. : Denies: dysuria, flank pain. Musculoskeletal: Denies: arthritis, extremity pain. Neuro: Denies: dizziness, headache. Psych: Denies: agitation, anxiety. Objective General VS/I O: Vital Signs: Date Time Temp Pulse Resp B/P B/P Pulse O2 O2 Flow FiO2 Mean Ox Delivery Rate 10/03 0418 36.8 82 18 116/70 85 95 Nasal cannula 10/03 0037 36.7 84 17 121/73 89 96 Room air 10/02 2000 Nasal 2.921005 cannula 10/02 1914 36.7 88 18 115/72 86.3 95 Nasal cannula 10/02 1528 36.7 83 16 114/73 86.8 95 Nasal cannula 10/02 1313 Nasal 2.147523 cannula 10/02 1142 36.7 82 16 123/75 91.2 94 Nasal cannula 10/02 0744 36.6 81 16 127/76 93.2 96 Nasal cannula 24 hour I O ending at 0700: 10/03 0700 10/02 1900 Intake Total 1300.00 Output Total Balance 1300.00 Intake, IV 900.00 Intake, Oral 400 Number 1 Bowel Movements Number Voids 5 Patient Weight Weight (lb): 251 Weight (oz): 8.76 Weight (kg): 114.100 Medications: Active Meds + DC'd Last 24 Hrs Meropenem 500 MG Q6HR IV Sterile Water 10 ML Potassium Chloride 100 ML ASDIR PRN IV Potassium Chloride 20 MEQ ASDIR PRN PO Acetaminophen 975 MG Q12H PO Famotidine 20 MG Q12HR IV Sodium Chloride 10 ML Fluconazole 200 MG DAILY PO Furosemide 20 MG QAM PO Dextrose/Water 25 ML ASDIR PRN IV Insulin Human Lispro LOW DOSE SCALE ASDIR SUBQ Iopamidol 100 ML ONCE PRN IV Sodium Chloride 50 ML ONCE PRN IV Piperacillin Sod/Tazobactam Sod 3.375 GM Q8H IV (DC) Sodium Chloride 100 ML Sodium Chloride 1,000 ML .[id number] IV Acetaminophen 650 MG Q4H PRN PRN PO Fentanyl Citrate 25 MCG Q3H PRN PRN IV Ondansetron HCl 4 MG Q4H PRN PRN IV Physical Exam General appearance: obese, alert, awake, oriented, no acute distress Head/Eyes: normal conjunctiva/sclera ENT: moist mucosal membranes Neck: no JVD Cardiovascular: regular rate rhythm Respiratory: aerating well, no distress Abdomen: obese, tenderness Genitourinary: no bladder distention Extremities: no clubbing, no cyanosis, no edema Musculoskeletal: normal inspection Neuro/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: alert, oriented X 3, normal speech Skin: surgical incision to abdomen with baljeet and dressing in place surgical incision to umbilicus Psychiatry: normal affect, normal judgment/insight, normal mood Results Findings/Data: Laboratory Tests 10/03 10/02 10/02 10/02 10/02 0619 2100 1916 1524 1448 Chemistry Sodium (137 - 145 mmol/L) 135 L Potassium (3.4 - 5.0 mmol/L) 3.8 3.1 L Chloride (98 - 107 mmol/L) 96 L Carbon Dioxide (22 - 30 mmol/L) 34 H BUN (9 - 20 mg/dL) 3 L Creatinine (0.7 - 1.3 mg/dL) 0.5 L Glomerular Filtr Rate (>60) 174 Glucose (74 - 106 mg/dL) 197 H POC Glucose (74 - 106 MG/DL) 142 H 225 H 198 H Calcium (8.4 - 10.2 mg/dL) 7.4 L 10/02 1140 Chemistry POC Glucose (74 - 106 MG/DL) 194 H Laboratory Tests 10/02 1448 Coagulation INR 1.4 PT Patient/Control Mix (9.2 - 12.1 SECONDS) 15.8 H Results: labs reviewed, vital signs stable, current med profile rev'd Diagnosis, Assessment Plan Free Text DxA P Notes Free text DxA P notes: 69yo M re-admitted for continued management s/p open cholecystectomy and found to have developing abscess in the gallbladder fossa #Cholecystitis: VARUN s/p lap>open mag(09/24) -CT abd/pelv 09/27 with post op changes, no discrete defined fluid collection -CTA chest with no evidence of pulmonary embolism -drain removed by GS, pt to f/u with GS in clinic 10/08/19 -repeat CT abd/pelvis 10/02 with developing abscess in gallbladder fossa -consult to wound care nurse for possible wound vac placement -GS with recs for IR to place drain -ID has changed ABT to meropenem # Small right pleural effusion -continue low dose lasix #Elevated LFTs -improved #T2DM: hyperglycemic; A1c 9.5 -continues on metformin, continue PRN SSI #HTN -continue losartan #Obesity: BMI > 30 -weight loss counseling #HLD: -consider statin initiation Dispo: Pending hospital course. Attestations Attestation needed: supervising physician at 1055 [facility] #:[phone] END OF REPORT [facility] 2019-10-04 06:42:00 [facility] Hospitalist Progress Note REPORT#:[id number] REPORT STATUS: Signed DATE:10/04/19 TIME: 0642 PATIENT: SEYMOUR SNOW UNIT #: [id number] ROOM/BED: [address] : 48 AGE: 69 SEX: M ATTEND: Lizzy Duke MD ADM AUTHOR: Soto Hudson NP * ALL edits or amendments must be made on the electronic/computer document * See Addendum Subjective Chief Complaint: abdominal pain improved Review of Systems Constitutional: Denies: chills, fatigue. Skin: Reports: other (abdominal incision). Denies: bruising. Allergy/Immun: Denies: allergic reaction, anaphylaxis. Eyes: Denies: redness, discharge. ENT: Denies: sore throat. Respiratory: Denies: PRITCHARD (dyspnea on exertion), SOB, wheezing. Cardiovascular: Denies: chest pain, PRITCHARD (dyspnea on exertion). GI: Reports: abdominal pain. Denies: constipation, diarrhea, nausea, vomiting. : Denies: dysuria, flank pain. Musculoskeletal: Denies: arthritis, extremity pain. Neuro: Denies: dizziness, headache. Psych: Denies: agitation, anxiety. Objective General VS/I O: Vital Signs: Date Time Temp Pulse Resp B/P B/P Pulse O2 O2 Flow FiO2 Mean Ox Delivery Rate 10/03 0418 36.8 82 18 116/70 85 95 Nasal cannula 10/03 0037 36.7 84 17 121/73 89 96 Room air 10/02 2000 Nasal 2.101265 cannula 10/02 1914 36.7 88 18 115/72 86.3 95 Nasal cannula 10/02 1528 36.7 83 16 114/73 86.8 95 Nasal cannula 10/02 1313 Nasal 2.423689 cannula 10/02 1142 36.7 82 16 123/75 91.2 94 Nasal cannula 10/02 0744 36.6 81 16 127/76 93.2 96 Nasal cannula 24 hour I O ending at 0700: 10/03 0700 10/02 1900 Intake Total 1300.00 Output Total Balance 1300.00 Intake, IV 900.00 Intake, Oral 400 Number 1 Bowel Movements Number Voids 5 Patient Weight Weight (lb): 251 Weight (oz): 8.76 Weight (kg): 114.100 Medications: Active Meds + DC'd Last 24 Hrs Meropenem 500 MG Q6HR IV Sterile Water 10 ML Potassium Chloride 100 ML ASDIR PRN IV Potassium Chloride 20 MEQ ASDIR PRN PO Acetaminophen 975 MG Q12H PO Famotidine 20 MG Q12HR IV Sodium Chloride 10 ML Fluconazole 200 MG DAILY PO Furosemide 20 MG QAM PO Dextrose/Water 25 ML ASDIR PRN IV Insulin Human Lispro LOW DOSE SCALE ASDIR SUBQ Iopamidol 100 ML ONCE PRN IV Sodium Chloride 50 ML ONCE PRN IV Piperacillin Sod/Tazobactam Sod 3.375 GM Q8H IV (DC) Sodium Chloride 100 ML Sodium Chloride 1,000 ML .[id number] IV Acetaminophen 650 MG Q4H PRN PRN PO Fentanyl Citrate 25 MCG Q3H PRN PRN IV Ondansetron HCl 4 MG Q4H PRN PRN IV Physical Exam General appearance: obese, alert, awake, oriented, no acute distress Head/Eyes: normal conjunctiva/sclera ENT: moist mucosal membranes Neck: no JVD Cardiovascular: regular rate rhythm Respiratory: aerating well, no distress Abdomen: obese, tenderness Genitourinary: no bladder distention Extremities: no clubbing, no cyanosis, no edema Musculoskeletal: normal inspection Neuro/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: alert, oriented X 3, normal speech Skin: surgical incision to abdomen with baljeet and dressing in place surgical incision to umbilicus Psychiatry: normal affect, normal judgment/insight, normal mood Results Findings/Data: Laboratory Tests 10/03 10/02 10/02 10/02 10/02 0619 2100 1916 1524 1448 Chemistry Sodium (137 - 145 mmol/L) 135 L Potassium (3.4 - 5.0 mmol/L) 3.8 3.1 L Chloride (98 - 107 mmol/L) 96 L Carbon Dioxide (22 - 30 mmol/L) 34 H BUN (9 - 20 mg/dL) 3 L Creatinine (0.7 - 1.3 mg/dL) 0.5 L Glomerular Filtr Rate (>60) 174 Glucose (74 - 106 mg/dL) 197 H POC Glucose (74 - 106 MG/DL) 142 H 225 H 198 H Calcium (8.4 - 10.2 mg/dL) 7.4 L 10/02 1140 Chemistry POC Glucose (74 - 106 MG/DL) 194 H Laboratory Tests 10/02 1448 Coagulation INR 1.4 PT Patient/Control Mix (9.2 - 12.1 SECONDS) 15.8 H Results: labs reviewed, vital signs stable, current med profile rev'd Diagnosis, Assessment Plan Free Text DxA P Notes Free text DxA P notes: 69yo M re-admitted for continued management s/p open cholecystectomy and found to have developing abscess in the gallbladder fossa #Cholecystitis: VARUN s/p lap>open mag(09/24) -CT abd/pelv 09/27 with post op changes, no discrete defined fluid collection -CTA chest with no evidence of pulmonary embolism -drain removed by GS, pt to f/u with GS in clinic 10/08/19 -repeat CT abd/pelvis 10/02 with developing abscess in gallbladder fossa -consult to wound care nurse for possible wound vac placement -GS with recs for IR to place drain -ID has changed ABT to meropenem # Small right pleural effusion -continue low dose lasix #Elevated LFTs -improved #T2DM: hyperglycemic; A1c 9.5 -continues on metformin, continue PRN SSI #HTN -continue losartan #Obesity: BMI > 30 -weight loss counseling #HLD: -consider statin initiation Dispo: Pending hospital course. Attestations Attestation needed: supervising physician at 1055 Addendum 1: 10/04/19 1716 by Soto Hudson NP Patient with chest pain this afternoon while wound vac was being applied, obtain trop I x 3, EKG. at 1717 RPT #:[id number] END OF REPORT [facility] 2019-10-04 06:42:00 ([facility] Hospitalist Progress Note REPORT#:[id number] REPORT STATUS: Signed DATE:10/04/19 TIME: 641 PATIENT: SEYMOUR SNOW UNIT #: [id number] ROOM/BED: [address] : 48 AGE: 69 SEX: M ATTEND: Rocio Menjivar DO ADM AUTHOR: Soto Hudson NP * ALL edits or amendments must be made on the electronic/computer document * See Addendum Subjective Chief Complaint: abdominal pain improved Review of Systems Constitutional: Denies: chills, fatigue. Skin: Reports: other (abdominal incision). Denies: bruising. Allergy/Immun: Denies: allergic reaction, anaphylaxis. Eyes: Denies: redness, discharge. ENT: Denies: sore throat. Respiratory: Denies: PRITCHARD (dyspnea on exertion), SOB, wheezing. Cardiovascular: Denies: chest pain, PRITCHARD (dyspnea on exertion). GI: Reports: abdominal pain. Denies: constipation, diarrhea, nausea, vomiting. : Denies: dysuria, flank pain. Musculoskeletal: Denies: arthritis, extremity pain. Neuro: Denies: dizziness, headache. Psych: Denies: agitation, anxiety. Objective General VS/I O: Vital Signs: Date Time Temp Pulse Resp B/P B/P Pulse O2 O2 Flow FiO2 Mean Ox Delivery Rate 10/03 0418 36.8 82 18 116/70 85 95 Nasal cannula 10/03 0037 36.7 84 17 121/73 89 96 Room air 10/02 2000 Nasal 2.228201 cannula 10/02 1914 36.7 88 18 115/72 86.3 95 Nasal cannula 10/02 1528 36.7 83 16 114/73 86.8 95 Nasal cannula 10/02 1313 Nasal 2.670910 cannula 10/02 1142 36.7 82 16 123/75 91.2 94 Nasal cannula 10/02 0744 36.6 81 16 127/76 93.2 96 Nasal cannula 24 hour I O ending at 0700: 10/03 0700 10/02 1900 Intake Total 1300.00 Output Total Balance 1300.00 Intake, IV 900.00 Intake, Oral 400 Number 1 Bowel Movements Number Voids 5 Patient Weight Weight (lb): 251 Weight (oz): 8.76 Weight (kg): 114.100 Medications: Active Meds + DC'd Last 24 Hrs Meropenem 500 MG Q6HR IV Sterile Water 10 ML Potassium Chloride 100 ML ASDIR PRN IV Potassium Chloride 20 MEQ ASDIR PRN PO Acetaminophen 975 MG Q12H PO Famotidine 20 MG Q12HR IV Sodium Chloride 10 ML Fluconazole 200 MG DAILY PO Furosemide 20 MG QAM PO Dextrose/Water 25 ML ASDIR PRN IV Insulin Human Lispro LOW DOSE SCALE ASDIR SUBQ Iopamidol 100 ML ONCE PRN IV Sodium Chloride 50 ML ONCE PRN IV Piperacillin Sod/Tazobactam Sod 3.375 GM Q8H IV (DC) Sodium Chloride 100 ML Sodium Chloride 1,000 ML .[id number] IV Acetaminophen 650 MG Q4H PRN PRN PO Fentanyl Citrate 25 MCG Q3H PRN PRN IV Ondansetron HCl 4 MG Q4H PRN PRN IV Physical Exam General appearance: obese, alert, awake, oriented, no acute distress Head/Eyes: normal conjunctiva/sclera ENT: moist mucosal membranes Neck: no JVD Cardiovascular: regular rate rhythm Respiratory: aerating well, no distress Abdomen: obese, tenderness Genitourinary: no bladder distention Extremities: no clubbing, no cyanosis, no edema Musculoskeletal: normal inspection Neuro/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: alert, oriented X 3, normal speech Skin: surgical incision to abdomen with baljeet and dressing in place surgical incision to umbilicus Psychiatry: normal affect, normal judgment/insight, normal mood Results Findings/Data: Laboratory Tests 10/03 10/02 10/02 10/02 10/02 0619 2100 1916 1524 1448 Chemistry Sodium (137 - 145 mmol/L) 135 L Potassium (3.4 - 5.0 mmol/L) 3.8 3.1 L Chloride (98 - 107 mmol/L) 96 L Carbon Dioxide (22 - 30 mmol/L) 34 H BUN (9 - 20 mg/dL) 3 L Creatinine (0.7 - 1.3 mg/dL) 0.5 L Glomerular Filtr Rate (>60) 174 Glucose (74 - 106 mg/dL) 197 H POC Glucose (74 - 106 MG/DL) 142 H 225 H 198 H Calcium (8.4 - 10.2 mg/dL) 7.4 L 10/02 1140 Chemistry POC Glucose (74 - 106 MG/DL) 194 H Laboratory Tests 10/02 1448 Coagulation INR 1.4 PT Patient/Control Mix (9.2 - 12.1 SECONDS) 15.8 H Results: labs reviewed, vital signs stable, current med profile rev'd Diagnosis, Assessment Plan Free Text DxA P Notes Free text DxA P notes: 69yo M re-admitted for continued management s/p open cholecystectomy and found to have developing abscess in the gallbladder fossa #Cholecystitis: VARUN s/p lap>open mag(09/24) -CT abd/pelv 09/27 with post op changes, no discrete defined fluid collection -CTA chest with no evidence of pulmonary embolism -drain removed by GS, pt to f/u with GS in clinic 10/08/19 -repeat CT abd/pelvis 10/02 with developing abscess in gallbladder fossa -consult to wound care nurse for possible wound vac placement -GS with recs for IR to place drain -ID has changed ABT to meropenem # Small right pleural effusion -continue low dose lasix #Elevated LFTs -improved #T2DM: hyperglycemic; A1c 9.5 -continues on metformin, continue PRN SSI #HTN -continue losartan #Obesity: BMI > 30 -weight loss counseling #HLD: -consider statin initiation Dispo: Pending hospital course. Attestations Attestation needed: supervising physician at 1055 at 1354 Addendum 1: 10/04/19 1716 by Soto Hudson NP Patient with chest pain this afternoon while wound vac was being applied, obtain trop I x 3, EKG. at 1713 RPT #:[id number] END OF REPORT [facility] 2019-10-03 23:30:00 ([facility]) Infect Disease Consult Note REPORT#:[id number] REPORT STATUS: Signed DATE:10/03/19 TIME: 2329 PATIENT: MYA SNOWNCIO UNIT #: [id number] ROOM/BED: [address] : 48 AGE: 69 SEX: M ATTEND: Rocio Menjivar DO ADM AUTHOR: Allie Phelps MD * ALL edits or amendments must be made on the electronic/computer document * History of Present Illness Free Text HPI Notes Free Text HPI Notes: Patient is a 69 y/o male with pmh OF dm and HTN who recently had lap choly lap mag but was converted t open and was d/c'd to rehab now readmitted with increasing pain and CT showed developig abscess. Pt has increasing leukocytosis. No fevers + abd pain RUQ No N/V / D Mild SOB History - Adult longitudinal Past medical history: Reports: Diabetes mellitus, Hypertension. Additional surgical history: Neck surgery, 40 years ago Alcohol use: Denies EtOH use Drug use: Denies recreational drugs Smoking status for patients 13 years old or older: Never Smoker Other social history: Good social support Allergies: Coded Allergies: No Known Allergies (10/26/18) Objective General VS/I O: Last Documented: Result Date Time Pulse Ox 95 10/02 1913 B/P 115/72 10/02 1913 B/P Mean 86.3 10/02 191 O2 Delivery Nasal cannula 10/02 1913 Temp 98.1 10/02 191 Pulse 88 10/02 191 Resp 18 10/02 191 O2 Flow Rate 2.045830 10/02 1313 Vital Signs Date Temp Pulse Resp B/P B/P Mean Pulse Ox FiO2 10/01-10/02 97.9-98.6 81-88 -18 114-130/72-76 86.0-94.0 94-96 24 hour I O ending at 0700: 10/02 0700 10/01 1900 Intake Total Output Total Balance Patient 114.1 kg Weight Weight Bed scale Measurement Method Patient Weight Weight (lb): 251 Weight (oz): 8.76 Weight (kg): 114.100 Physical Exam General appearance: alert, awake, oriented Head/eyes: atraumatic, clear cornea, EOMI, normal conjunctiva/sclera, normal eyelids/periorb, normocephalic, PERRL ENT: normal dentition, normal nose, normal pharynx, normal sinus Neck: full range of motion, non-tender, normal thyroid, supple/no meningismus, no bruit/NL carotids, no JVD, no masses or swelling, no lymphadenopathy Cardiovascular: regular rate rhythm Respiratory: clear to auscultation, no distress Abdomen: tenderness, soft, no distention, no guarding, no mass/organomegaly, no rebound Genitourinary: no villagomez Extremities: no edema Results Findings/Data: Laboratory Tests 10/02 10/02 10/02 10/02 10/02 2100 1916 1524 1448 1140 Chemistry Sodium (137 - 145 mmol/L) 135 L Potassium (3.4 - 5.0 mmol/L) 3.8 3.1 L Chloride (98 - 107 mmol/L) 96 L Carbon Dioxide (22 - 30 mmol/L) 34 H BUN (9 - 20 mg/dL) 3 L Creatinine (0.7 - 1.3 mg/dL) 0.5 L Glomerular Filtr Rate (>60) 174 Glucose (74 - 106 mg/dL) 197 H POC Glucose (74 - 106 MG/DL) 225 H 198 H 194 H Calcium (8.4 - 10.2 mg/dL) 7.4 L 10/02 0602 Chemistry POC Glucose (74 - 106 MG/DL) 133 H Laboratory Tests 10/02 1448 Coagulation INR 1.4 PT Patient/Control Mix (9.2 - 12.1 SECONDS) 15.8 H Diagnosis, Assessment Plan Free Text DxA P Notes Free text DxA P notes: 1. Abscess post cholecystectomy s/p drain placement c/s with gnr pending at risk for mdro start merrem 2. leukocytosis from above Recs start merrem f/u on drainage c/s at 1535 RPT #:[id number] END OF REPORT [facility] 2019-10-03 12:27:00 [facility] General Surgery Progress Note REPORT#:[id number] REPORT STATUS: Signed DATE:10/03/19 TIME: 1227 PATIENT: MYA SNOWNCIO UNIT #: [id number] ROOM/BED: [address] : 48 AGE: 69 SEX: M ATTEND: Lizzy Duke MD ADM AUTHOR: Elicia Paul NP * ALL edits or amendments must be made on the electronic/computer document * Subjective Chief Complaint: abdominal pain HPI: Pt known to the acute/general surgery service. S/p laparoscopic converted to open cholecystectomy with drain placement on 09/25/2019. Postop pt with persistent leukocytosis, 20 from 09/25 to 09/27. During this time he remained afebrile. He continued on IV Zosyn. PCT was wnl on 09/27. On 09/28/2019 during AM rounding, it was reported that the pt had a desaturation with pulse ox into high 80s. CTA chest, CT abdomen/pelvis completed. At that time, no discernable fluid collection, CATHRYN drain was in proper placement. CTA chest was negative for PE, findings of small right pleural effusion with bibasilar consolidation. ID was consulted and the pt was addtionally placed on PO diflucan. CATHRYN drain was discontinued 09/29/2019. Leukocytosis improved/resolved. Currently afebrile, Tmax 99F. Acute/general surgery reconsulted 10/01 while pt at rehab d/t drainage from abdominal incision. Comments: Subjective: Pt reports no new complaints today. Continues with RUQ abdominal pain. Tolerating PO diet. Review of Systems Free Text ROS Notes Free Text ROS Notes: ROS negative unless noted in above HPI of the following systems: constitutional, eyes, HENT, neck, neuro, CV, resp, GI, , msk, skin Objective General VS/I O: Last Documented: Result Date Time Pulse Ox 94 10/02 1142 B/P 123/75 10/02 1142 B/P Mean 91.2 10/02 1142 O2 Delivery Nasal cannula 10/02 114 Temp 36.7 10/02 1142 Pulse 82 10/02 1142 Resp 16 10/02 1142 O2 Flow Rate 2.579384 10/01 1930 Vital Signs Date Temp Pulse Resp B/P B/P Mean Pulse Ox FiO2 10/01-10/02 36.6-37.1 81-89 - 114-130/72-76 86.0-94.0 94-96 24 hour I O ending at 0700: 10/02 0700 10/01 1900 Intake Total Output Total Balance Patient 114.1 kg Weight Weight Bed scale Measurement Method Patient Weight Weight (lb): 251 Weight (oz): 8.76 Weight (kg): 114.100 Medications: Active Meds + DC'd Last 24 Hrs Acetaminophen 975 MG Q12H PO Famotidine 20 MG Q12HR IV Sodium Chloride 10 ML Fluconazole 200 MG DAILY PO Furosemide 20 MG QAM PO Dextrose/Water 25 ML ASDIR PRN IV Insulin Human Lispro LOW DOSE SCALE ASDIR SUBQ Iopamidol 100 ML ONCE PRN IV Sodium Chloride 50 ML ONCE PRN IV Piperacillin Sod/Tazobactam Sod 3.375 GM Q8H IV Sodium Chloride 100 ML Sodium Chloride 1,000 ML .[id number] IV Acetaminophen 650 MG Q4H PRN PRN PO Fentanyl Citrate 25 MCG Q3H PRN PRN IV Ondansetron HCl 4 MG Q4H PRN PRN IV Physical Exam General appearance: alert, awake, oriented, no acute distress, pleasant, conversational, no respiratory distress Wound/incision: Location: abdominal incision Cardiovascular: normal heart sounds Respiratory: aerating well, equal breath sounds, no distress, on NC Abdomen: tenderness (RUQ), , soft, generalized abd pain, specifically RUQ. Generalized erythema surrounding incision site. Baljeet intact , serosang/purulent drainage on abd pad. No expressible fluid collection Extremities: moves all, normal temperature Neuro/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: alert, oriented x 3 Diagnosis, Assessment Plan Free Text A P: Assessment: 69 year old male s/p laparoscopic cholecystectomy convered to open with drain placement (drain dcd 09/28). Plan: Abdominal abscess in gallbladder fossa (7.2x2.5x3) - would recommend IR drain placement for abscess. - generalized abdominal pain, specifically RUQ. Erythema noted surrounding incision site. - 2-3 baljeet removed from distal portion of wound 10/01 and 10/02 with drainage of serosang/purulent fluid. - will consult medical accounting clerk (Krysten) for wound vac placement 10/03 - wound cultures obtained and sent. Micro with rare gram negative rods - no leukocytosis WBC 8.7. LA wnl. Afebrile overnight - documented desaturation with tachycardia 10/01 AM. CTA chest: no PE, bibasilar atelectasis with sm R pleural effusion - while inpt, ID had been consulted. Pt has remained on IV Zosyn, diflucan added 09/27 per ID. Would recommend re consulting ID Dispo: General surgery will continue to follow. Would recommend IR drainage of abdominal abscess. Please call [phone] with any questions or concerns. at 1235 RPT #:[id number] END OF REPORT [facility] 2019-10-[facility] 12:27:00 ([facility]) General Surgery Progress Note REPORT#:[id number] REPORT STATUS: Signed DATE:10/03/19 TIME: 1226 PATIENT: SEYMOUR SNOW UNIT #: [id number] ROOM/BED: [address] : 48 AGE: 69 SEX: M ATTEND: Lizzy Duke MD ADM AUTHOR: Elicia Paul NP * ALL edits or amendments must be made on the electronic/computer document * Elicia Paul 10/03/19 1227: Subjective Chief Complaint: abdominal pain HPI: Pt known to the acute/general surgery service. S/p laparoscopic converted to open cholecystectomy with drain placement on 09/25/2019. Postop pt with persistent leukocytosis, 20 from 09/25 to 09/27. During this time he remained afebrile. He continued on IV Zosyn. PCT was wnl on 09/27. On 09/28/2019 during AM rounding, it was reported that the pt had a desaturation with pulse ox into high 80s. CTA chest, CT abdomen/pelvis completed. At that time, no discernable fluid collection, CATHRYN drain was in proper placement. CTA chest was negative for PE, findings of small right pleural effusion with bibasilar consolidation. ID was consulted and the pt was addtionally placed on PO diflucan. CATHRYN drain was discontinued 09/29/2019. Leukocytosis improved/resolved. Currently afebrile, Tmax 99F. Acute/general surgery reconsulted 10/01 while pt at rehab d/t drainage from abdominal incision. Comments: Subjective: Pt reports no new complaints today. Continues with RUQ abdominal pain. Tolerating PO diet. Review of Systems Free Text ROS Notes Free Text ROS Notes: ROS negative unless noted in above HPI of the following systems: constitutional, eyes, HENT, neck, neuro, CV, resp, GI, , msk, skin Objective General VS/I O: Last Documented: Result Date Time Pulse Ox 94 10/02 1142 B/P 123/75 10/02 1142 B/P Mean 91.2 10/02 1142 O2 Delivery Nasal cannula 10/02 1142 Temp 36.7 10/02 1142 Pulse 82 10/02 1142 Resp 16 10/02 1142 O2 Flow Rate 2.441490 10/01 1930 Vital Signs Date Temp Pulse Resp B/P B/P Mean Pulse Ox FiO2 10/01-10/02 36.6-37.1 81-89 - 114-130/72-76 86.0-94.0 94-96 24 hour I O ending at 0700: 10/02 0700 10/01 1900 Intake Total Output Total Balance Patient 114.1 kg Weight Weight Bed scale Measurement Method Patient Weight Weight (lb): 251 Weight (oz): 8.76 Weight (kg): 114.100 Medications: Active Meds + DC'd Last 24 Hrs Acetaminophen 975 MG Q12H PO Famotidine 20 MG Q12HR IV Sodium Chloride 10 ML Fluconazole 200 MG DAILY PO Furosemide 20 MG QAM PO Dextrose/Water 25 ML ASDIR PRN IV Insulin Human Lispro LOW DOSE SCALE ASDIR SUBQ Iopamidol 100 ML ONCE PRN IV Sodium Chloride 50 ML ONCE PRN IV Piperacillin Sod/Tazobactam Sod 3.375 GM Q8H IV Sodium Chloride 100 ML Sodium Chloride 1,000 ML .[id number] IV Acetaminophen 650 MG Q4H PRN PRN PO Fentanyl Citrate 25 MCG Q3H PRN PRN IV Ondansetron HCl 4 MG Q4H PRN PRN IV Physical Exam General appearance: alert, awake, oriented, no acute distress, pleasant, conversational, no respiratory distress Wound/incision: Location: abdominal incision Cardiovascular: normal heart sounds Respiratory: aerating well, equal breath sounds, no distress, on NC Abdomen: tenderness (RUQ), , soft, generalized abd pain, specifically RUQ. Generalized erythema surrounding incision site. [place] intact , serosang/purulent drainage on abd pad. No expressible fluid collection Extremities: moves all, normal temperature Neuro/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: alert, oriented x 3 Diagnosis, Assessment Plan Free Text A P: Assessment: 69 year old male s/p laparoscopic cholecystectomy convered to open with drain placement (drain dcd 09/28). Plan: Abdominal abscess in gallbladder fossa (7.2x2.5x3) - would recommend IR drain placement for abscess. - generalized abdominal pain, specifically RUQ. Erythema noted surrounding incision site. - 2-3 baljeet removed from distal portion of wound 10/01 and 10/02 with drainage of serosang/purulent fluid. - will consult medical accounting clerk (Krysten) for wound vac placement 10/03 - wound cultures obtained and sent. Micro with rare gram negative rods - no leukocytosis WBC 8.7. LA wnl. Afebrile overnight - documented desaturation with tachycardia 10/01 AM. CTA chest: no PE, bibasilar atelectasis with sm R pleural effusion - while inpt, ID had been consulted. Pt has remained on IV Zosyn, diflucan added 09/27 per ID. Would recommend re consulting ID Dispo: General surgery will continue to follow. Would recommend IR drainage of abdominal abscess. Please call [phone] with any questions or concerns. Dulce Bradford 10/03/19 [id number]: Attestations Physician Attestation Agree w/findings plan: I was present with the BALL WARPER TENDER during the history and examination. I discussed the case with the BALL WARPER TENDER and agree with the findings and plan as documented in the BALL WARPER TENDER's note. Patient is a 69-year-old man well-known to our service status post lap converted to open cholecystectomy with drain placement on 09/25/2019. Now with anterior abdominal wound drainage as well as gallbladder fossa abscess seen on CT scan. On my exam patient with breath sounds equal bilaterally. Nasal cannula in place. Abdomen soft, locally tender around the incision, which is intact except for lateral-most baljeet previously removed. Wound dressing removed -- continued purulent output. Two addtional lateral baljeet removed and wound opened further. Visualized fascia intact. Tonie-incisional erythema with blanching improving Wound re-dressed with packing after irigation of wound. Plan: Recommend IR consultation for perc drain of intra-abdominal abscess Follow-up drain cultures Abx per primary Will requeset wound vac for open lateral aspect of wound to help drain the area and keep clean and dry. Labs reviewed. Pertinent imaging personally reviewed. Discussed plan with other members of the healthcare team. Dulce Bradford MD Trauma and Acute Care Surgery Surgical Critical Care at 1235 RPT #:[id number] END OF REPORT [facility] 2019-[facility] 12:27:00 [facility] General Surgery Progress Note REPORT#:[id number] REPORT STATUS: Signed DATE:10/03/19 TIME: 122 PATIENT: SEYMOUR SNOW UNIT #: [id number] ROOM/BED: [address] : 48 AGE: 69 SEX: M ATTEND: Lizzy Duke MD ADM AUTHOR: Elicia Paul NP * ALL edits or amendments must be made on the electronic/computer document * Elicia Paul 10/03/19 1227: Subjective Chief Complaint: abdominal pain HPI: Pt known to the acute/general surgery service. S/p laparoscopic converted to open cholecystectomy with drain placement on 09/25/2019. Postop pt with persistent leukocytosis, 20 from 09/25 to 09/27. During this time he remained afebrile. He continued on IV Zosyn. PCT was wnl on 09/27. On 09/28/2019 during AM rounding, it was reported that the pt had a desaturation with pulse ox into high 80s. CTA chest, CT abdomen/pelvis completed. At that time, no discernable fluid collection, CATHRYN drain was in proper placement. CTA chest was negative for PE, findings of small right pleural effusion with bibasilar consolidation. ID was consulted and the pt was addtionally placed on PO diflucan. CATHRYN drain was discontinued 09/29/2019. Leukocytosis improved/resolved. Currently afebrile, Tmax 99F. Acute/general surgery reconsulted 10/01 while pt at rehab d/t drainage from abdominal incision. Comments: Subjective: Pt reports no new complaints today. Continues with RUQ abdominal pain. Tolerating PO diet. Review of Systems Free Text ROS Notes Free Text ROS Notes: ROS negative unless noted in above HPI of the following systems: constitutional, eyes, HENT, neck, neuro, CV, resp, GI, , msk, skin Objective General VS/I O: Last Documented: Result Date Time Pulse Ox 94 10/02 1142 B/P 123/75 10/02 1142 B/P Mean 91.2 10/02 1142 O2 Delivery Nasal cannula 10/02 114 Temp 36.7 10/02 1142 Pulse 82 10/02 1142 Resp 16 10/02 1142 O2 Flow Rate 2.110472 10/01 1930 Vital Signs Date Temp Pulse Resp B/P B/P Mean Pulse Ox FiO2 10/01-10/02 36.6-37.1 81-89 - 114-130/72-76 86.0-94.0 94-96 24 hour I O ending at 0700: 10/02 0700 10/01 1900 Intake Total Output Total Balance Patient 114.1 kg Weight Weight Bed scale Measurement Method Patient Weight Weight (lb): 251 Weight (oz): 8.76 Weight (kg): 114.100 Medications: Active Meds + DC'd Last 24 Hrs Acetaminophen 975 MG Q12H PO Famotidine 20 MG Q12HR IV Sodium Chloride 10 ML Fluconazole 200 MG DAILY PO Furosemide 20 MG QAM PO Dextrose/Water 25 ML ASDIR PRN IV Insulin Human Lispro LOW DOSE SCALE ASDIR SUBQ Iopamidol 100 ML ONCE PRN IV Sodium Chloride 50 ML ONCE PRN IV Piperacillin Sod/Tazobactam Sod 3.375 GM Q8H IV Sodium Chloride 100 ML Sodium Chloride 1,000 ML .[id number] IV Acetaminophen 650 MG Q4H PRN PRN PO Fentanyl Citrate 25 MCG Q3H PRN PRN IV Ondansetron HCl 4 MG Q4H PRN PRN IV Physical Exam General appearance: alert, awake, oriented, no acute distress, pleasant, conversational, no respiratory distress Wound/incision: Location: abdominal incision Cardiovascular: normal heart sounds Respiratory: aerating well, equal breath sounds, no distress, on NC Abdomen: tenderness (RUQ), , soft, generalized abd pain, specifically RUQ. Generalized erythema surrounding incision site. [place] intact , serosang/purulent drainage on abd pad. No expressible fluid collection Extremities: moves all, normal temperature Neuro/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: alert, oriented x 3 Diagnosis, Assessment Plan Free Text A P: Assessment: 69 year old male s/p laparoscopic cholecystectomy convered to open with drain placement (drain dcd 09/28). Plan: Abdominal abscess in gallbladder fossa (7.2x2.5x3) - would recommend IR drain placement for abscess. - generalized abdominal pain, specifically RUQ. Erythema noted surrounding incision site. - 2-3 baljeet removed from distal portion of wound 10/01 and 10/02 with drainage of serosang/purulent fluid. - will consult medical accounting clerk (Krysten) for wound vac placement 10/03 - wound cultures obtained and sent. Micro with rare gram negative rods - no leukocytosis WBC 8.7. LA wnl. Afebrile overnight - documented desaturation with tachycardia 10/01 AM. CTA chest: no PE, bibasilar atelectasis with sm R pleural effusion - while inpt, ID had been consulted. Pt has remained on IV Zosyn, diflucan added 09/27 per ID. Would recommend re consulting ID Dispo: General surgery will continue to follow. Would recommend IR drainage of abdominal abscess. Please call [phone] with any questions or concerns. Dulce Bradford 10/03/19 3149: Attestations Physician Attestation Agree w/findings plan: I was present with the BALL WARPER TENDER during the history and examination. I discussed the case with the BALL WARPER TENDER and agree with the findings and plan as documented in the BALL WARPER TENDER's note. Patient is a 69-year-old man well-known to our service status post lap converted to open cholecystectomy with drain placement on 09/25/2019. Now with anterior abdominal wound drainage as well as gallbladder fossa abscess seen on CT scan. On my exam patient with breath sounds equal bilaterally. Nasal cannula in place. Abdomen soft, locally tender around the incision, which is intact except for lateral-most baljeet previously removed. Wound dressing removed -- continued purulent output. Two addtional lateral baljeet removed and wound opened further. Visualized fascia intact. Tonie-incisional erythema with blanching improving Wound re-dressed with packing after irigation of wound. Plan: Recommend IR consultation for perc drain of intra-abdominal abscess Follow-up drain cultures Abx per primary Will requeset wound vac for open lateral aspect of wound to help drain the area and keep clean and dry. Labs reviewed. Pertinent imaging personally reviewed. Discussed plan with other members of the healthcare team. Dulce Bradford MD Trauma and Acute Care Surgery Surgical Critical Care at 1235 at 7156 RPT #:[id number] END OF REPORT [facility] 2019-10-03 07:45:00 [facility] REPORT#:[id number] REPORT STATUS: Signed DATE:10/03/19 TIME: 0745 PATIENT: SEYMOUR SNOW UNIT #: [id number] ROOM/BED: [address] : 48 AGE: 69 SEX: M ATTEND: Lizzy Duke MD ADM AUTHOR: Soto Hudson NP * ALL edits or amendments must be made on the electronic/computer document * Subjective Chief Complaint: abdominal pain Review of Systems Constitutional: Denies: chills, fatigue. Skin: Reports: other (abdominal incision). Denies: bruising. Allergy/Immun: Denies: allergic reaction, anaphylaxis. Eyes: Denies: redness, discharge. ENT: Denies: sore throat. Respiratory: Denies: PRITCHARD (dyspnea on exertion), SOB, wheezing. Cardiovascular: Denies: chest pain, PRITCHARD (dyspnea on exertion). GI: Reports: abdominal pain. Denies: constipation, diarrhea, nausea, vomiting. : Denies: dysuria, flank pain. Musculoskeletal: Denies: arthritis, extremity pain. Neuro: Denies: dizziness, headache. Psych: Denies: agitation, anxiety. Objective General VS/I O: Vital Signs: Date Time Temp Pulse Resp B/P B/P Pulse O2 O2 Flow FiO2 Mean Ox Delivery Rate 10/02 0744 36.6 81 16 127/76 93.2 96 Nasal cannula 10/02 0450 36.6 82 17 130/76 94.0 95 Nasal cannula 10/01 2341 37.0 86 17 114/72 86.0 96 Nasal cannula 10/01 2100 37.1 89 16 121/76 91 95 Room air 10/01 1930 Nasal 2.656489 cannula 24 hour I O ending at 0700: 10/02 0700 10/01 1900 Intake Total Output Total Balance Patient 114.1 kg Weight Weight Bed scale Measurement Method Patient Weight Weight (lb): 251 Weight (oz): 8.76 Weight (kg): 114.100 Medications: Active Meds + DC'd Last 24 Hrs Famotidine 20 MG Q12HR IV Sodium Chloride 10 ML Fluconazole 200 MG DAILY PO Dextrose/Water 25 ML ASDIR PRN IV Insulin Human Lispro LOW DOSE SCALE ASDIR SUBQ Iopamidol 100 ML ONCE PRN IV Sodium Chloride 50 ML ONCE PRN IV Piperacillin Sod/Tazobactam Sod 3.375 GM Q8H IV Sodium Chloride 100 ML Sodium Chloride 1,000 ML .[id number] IV Acetaminophen 650 MG Q4H PRN PRN PO Fentanyl Citrate 25 MCG Q3H PRN PRN IV Ondansetron HCl 4 MG Q4H PRN PRN IV Physical Exam General appearance: obese, alert, awake, oriented, no acute distress Head/Eyes: normal conjunctiva/sclera ENT: moist mucosal membranes Neck: no JVD Cardiovascular: regular rate rhythm Respiratory: aerating well, no distress Abdomen: obese, tenderness Genitourinary: no bladder distention Extremities: no clubbing, no cyanosis, no edema Musculoskeletal: normal inspection Neuro/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: alert, oriented X 3, normal speech Skin: surgical incision to abdomen with baljeet and dressing in place surgical incision to umbilicus with baljeet c/d/i Psychiatry: normal affect, normal judgment/insight, normal mood Results Findings/Data: Laboratory Tests 10/02 10/01 0602 2054 Chemistry POC Glucose (74 - 106 MG/DL) 133 H Lactic Acid (0.7 - 2.0 mmol/L) 1.7 Laboratory Tests 10/01 2053 Hematology WBC (5.0 - 12.0 x10 3/uL) 8.7 RBC (4.70 - 6.10 x10 6/uL) 3.15 L Hgb (14.0 - 18.0 g/dL) 9.6 L Hct (37.0 - 49.0 %) 28.9 L MCV (80 - 94 fL) 92 MCH (27 - 31 pg) 30.5 MCHC (33 - 37 g/dL) 33.2 RDW (11.5 - 15.5 %) 13.1 Plt Count (130 - 400 x10 3/uL) 212 MPV (9.4 - 16.4 fL) 9.4 Neut % (Auto) (43 - 65 %) 71.2 H Lymph % (Auto) (20.5 - 45.5 %) 18.3 L [place] % (Auto) (5.5 - 11.7 %) 6.5 Eos % (Auto) (0.9 - 2.9 %) 2.9 Baso % (Auto) (0.2 - 1.0 %) 0.8 Neut # (Auto) (2.2 - 4.8 x10 3/uL) 6.20 H Lymph # (Auto) (1.3 - 2.9 x10 3/uL) 1.59 [place] # (Auto) (0.3 - 0.8 x10 3/uL) 0.57 Eos # (Auto) (0.0 - 0.2 x10 3/uL) 0.25 H Baso # (Auto) (0.0 - 0.1 x10 3/uL) 0.07 Immature Gran % (0.0 - 2.0 %) 0.3 Nucleated RBC % (0 - 1.0 %) 0.0 Results: labs reviewed, vital signs stable, current med profile rev'd Diagnosis, Assessment Plan Free Text DxA P Notes Free text DxA P notes: 69yo M re-admitted for continued management s/p open cholecystectomy and found to have developing abscess in the gallbladder fossa #Cholecystitis: VARUN s/p lap>open mag(09/24) -CT abd/pelv 09/27 with post op changes, no discrete defined fluid collection -CTA chest with no evidence of pulmonary embolism -drain removed by GS, pt to f/u with GS in clinic 10/08/19 -repeat CT abd/pelvis 10/02 with developing abscess in gallbladder fossa -wound care per GS recs, consult to wound care nurse for possible wound vac placement -GS with recs for IR to place drain # Small right pleural effusion -start low dose lasix #Elevated LFTs -improved #T2DM: hyperglycemic; A1c 9.5 -continues on metformin, continue PRN SSI #HTN -continue losartan #Obesity: BMI > 30 -weight loss counseling #HLD: ASCVD > 7.5% -consider statin initiation, pending improvement in LFTs #Fever, leukocytosis -CXR with atelectasis and patchy bilateral consolidation, continue nebs, IS use, ambulate -PCT level was normal -ID recs continue zosyn and diflucan x 7 days -WBC down to normal Dispo: Consult ID for further ABT recommendations. Continue current IV ABTs. Consult GS to continue to follow. Attestations Attestation needed: supervising physician at 1537 RPT #:[id number] END OF REPORT [facility] 2019-10-03 07:45:00 ([facility] Hospitalist Progress Note REPORT#:[id number] REPORT STATUS: Signed DATE:10/03/19 TIME: 0745 PATIENT: SEYMOUR SNOW UNIT #: [id number] ROOM/BED: [address] : 48 AGE: 69 SEX: M ATTEND: Rocio Menjivar DO ADM AUTHOR: Soto Hudson NP * ALL edits or amendments must be made on the electronic/computer document * Subjective Chief Complaint: abdominal pain Review of Systems Constitutional: Denies: chills, fatigue. Skin: Reports: other (abdominal incision). Denies: bruising. Allergy/Immun: Denies: allergic reaction, anaphylaxis. Eyes: Denies: redness, discharge. ENT: Denies: sore throat. Respiratory: Denies: PRITCHARD (dyspnea on exertion), SOB, wheezing. Cardiovascular: Denies: chest pain, PRITCHARD (dyspnea on exertion). GI: Reports: abdominal pain. Denies: constipation, diarrhea, nausea, vomiting. : Denies: dysuria, flank pain. Musculoskeletal: Denies: arthritis, extremity pain. Neuro: Denies: dizziness, headache. Psych: Denies: agitation, anxiety. Objective General VS/I O: Vital Signs: Date Time Temp Pulse Resp B/P B/P Pulse O2 O2 Flow FiO2 Mean Ox Delivery Rate 10/02 0744 36.6 81 16 127/76 93.2 96 Nasal cannula 10/02 0450 36.6 82 17 130/76 94.0 95 Nasal cannula 10/01 2341 37.0 86 17 114/72 86.0 96 Nasal cannula 10/01 2100 37.1 89 16 121/76 91 95 Room air 10/01 1930 Nasal 2.151229 cannula 24 hour I O ending at 0700: 10/02 0700 10/01 1900 Intake Total Output Total Balance Patient 114.1 kg Weight Weight Bed scale Measurement Method Patient Weight Weight (lb): 251 Weight (oz): 8.76 Weight (kg): 114.100 Medications: Active Meds + DC'd Last 24 Hrs Famotidine 20 MG Q12HR IV Sodium Chloride 10 ML Fluconazole 200 MG DAILY PO Dextrose/Water 25 ML ASDIR PRN IV Insulin Human Lispro LOW DOSE SCALE ASDIR SUBQ Iopamidol 100 ML ONCE PRN IV Sodium Chloride 50 ML ONCE PRN IV Piperacillin Sod/Tazobactam Sod 3.375 GM Q8H IV Sodium Chloride 100 ML Sodium Chloride 1,000 ML .[id number] IV Acetaminophen 650 MG Q4H PRN PRN PO Fentanyl Citrate 25 MCG Q3H PRN PRN IV Ondansetron HCl 4 MG Q4H PRN PRN IV Physical Exam General appearance: obese, alert, awake, oriented, no acute distress Head/Eyes: normal conjunctiva/sclera ENT: moist mucosal membranes Neck: no JVD Cardiovascular: regular rate rhythm Respiratory: aerating well, no distress Abdomen: obese, tenderness Genitourinary: no bladder distention Extremities: no clubbing, no cyanosis, no edema Musculoskeletal: normal inspection Neuro/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: alert, oriented X 3, normal speech Skin: surgical incision to abdomen with baljeet and dressing in place surgical incision to umbilicus with baljeet c/d/i Psychiatry: normal affect, normal judgment/insight, normal mood Results Findings/Data: Laboratory Tests 10/02 Chemistry POC Glucose (74 - 106 MG/DL) 133 H Lactic Acid (0.7 - 2.0 mmol/L) 1.7 Laboratory Tests 10/01 2053 Hematology WBC (5.0 - 12.0 x10 3/uL) 8.7 RBC (4.70 - 6.10 x10 6/uL) 3.15 L Hgb (14.0 - 18.0 g/dL) 9.6 L Hct (37.0 - 49.0 %) 28.9 L MCV (80 - 94 fL) 92 MCH (27 - 31 pg) 30.5 MCHC (33 - 37 g/dL) 33.2 RDW (11.5 - 15.5 %) 13.1 Plt Count (130 - 400 x10 3/uL) 212 MPV (9.4 - 16.4 fL) 9.4 Neut % (Auto) (43 - 65 %) 71.2 H Lymph % (Auto) (20.5 - 45.5 %) 18.3 L [place] % (Auto) (5.5 - 11.7 %) 6.5 Eos % (Auto) (0.9 - 2.9 %) 2.9 Baso % (Auto) (0.2 - 1.0 %) 0.8 Neut # (Auto) (2.2 - 4.8 x10 3/uL) 6.20 H Lymph # (Auto) (1.3 - 2.9 x10 3/uL) 1.59 [place] # (Auto) (0.3 - 0.8 x10 3/uL) 0.57 Eos # (Auto) (0.0 - 0.2 x10 3/uL) 0.25 H Baso # (Auto) (0.0 - 0.1 x10 3/uL) 0.07 Immature Gran % (0.0 - 2.0 %) 0.3 Nucleated RBC % (0 - 1.0 %) 0.0 Results: labs reviewed, vital signs stable, current med profile rev'd Diagnosis, Assessment Plan Free Text DxA P Notes Free text DxA P notes: 69yo M re-admitted for continued management s/p open cholecystectomy and found to have developing abscess in the gallbladder fossa #Cholecystitis: VARUN s/p lap>open mag(09/24) -CT abd/pelv 09/27 with post op changes, no discrete defined fluid collection -CTA chest with no evidence of pulmonary embolism -drain removed by GS, pt to f/u with GS in clinic 10/08/19 -repeat CT abd/pelvis 10/02 with developing abscess in gallbladder fossa -wound care per GS recs, consult to wound care nurse for possible wound vac placement -GS with recs for IR to place drain # Small right pleural effusion -start low dose lasix #Elevated LFTs -improved #T2DM: hyperglycemic; A1c 9.5 -continues on metformin, continue PRN SSI #HTN -continue losartan #Obesity: BMI > 30 -weight loss counseling #HLD: ASCVD > 7.5% -consider statin initiation, pending improvement in LFTs #Fever, leukocytosis -CXR with atelectasis and patchy bilateral consolidation, continue nebs, IS use, ambulate -PCT level was normal -ID recs continue zosyn and diflucan x 7 days -WBC down to normal Dispo: Consult ID for further ABT recommendations. Continue current IV ABTs. Consult GS to continue to follow. Attestations Attestation needed: supervising physician at 1537 at 1354 RPT #:[id number] END OF REPORT [facility] 2019-10-03 07:40:00 [id number] [facility] [address] [place] [address] PATIENT NAME: SEYMOUR SNOW ADMIT DATE: 10/02/19 ACCOUNT NO: [id number] ROOM NO: 3309 AGE: 69 REPORT TYPE: HISTORY AND PHYSICAL SEX: M ADMITTING PHYSICIAN:Rocio Menjivar DO ATTENDING PHYSICIAN:Rocio Menjivar DO ADMISSION DATE: 10/02/2019 CHIEF COMPLAINT: Wound dehiscence. HISTORY OF PRESENTING ILLNESS: A 69-year-old male with past medical history of hypertension, type 2 diabetes mellitus, and hyperlipidemia, was recently admitted to hospital for acute cystitis. He underwent laparoscopic cholecystectomy, which got converted to open on 09/25/2019. Hospital course included desaturation, at that time, CT angiogram was done that was negative for pulmonary embolism. He required the CATHRYN drain to be placed. The patient was receiving IV antibiotics, Zosyn and then added Diflucan by infectious disease. He was then discharged to rehab on 10/01/2019. During the rehab, the patient is noted to have increasing drainage from the incision along with some areas of wound dehiscence. The patient was having adjacent cellulitis changes, so admitted back to the hospital. He only had low-grade fever, but otherwise pain at the incision site is controlled. He also denied any shortness of breath, vomiting, and diarrhea. He does have nausea. PAST MEDICAL HISTORY: Type 2 diabetes mellitus, hypertension and hyperlipidemia. PAST SURGICAL HISTORY: Recent open cholecystectomy with placement of CATHRYN drain. ALLERGIES: NO KNOWN DRUG ALLERGIES. HOME MEDICATIONS: Not yet updated. REVIEW OF SYSTEMS: All 10 systems are reviewed. They are negative except as described above. PHYSICAL EXAMINATION: VITAL SIGNS: Temperature 98.8 degrees Fahrenheit, pulse of ____, respiratory rate of 16, blood pressure 121/76, and oxygen saturation 95% on room air. GENERAL: Awake, alert, not in acute distress. HEENT: Atraumatic and normocephalic. Pupils are equal, round, reactive to light and accommodation. NECK: Supple. No JVD. No thyromegaly. CARDIOVASCULAR: Normal S1 and S2. No murmur heard. RESPIRATORY: Fair air entry bilateral. No wheezing, no rhonchi. ABDOMEN: Soft, nontender. Positive bowel sounds, has redness and tenderness at the incision site also. There are areas of dehiscence, which is oozing sanguineous drainage. NEUROLOGIC: Awake, alert, and oriented x3. No focal neurological deficits. PATIENT NAME: SEYMOUR SNOW MUSCULOSKELETAL: No deformity. SKIN: No rash. No ulcers. LABORATORY DATA AND DIAGNOSTIC STUDIES: WBCs of 8.7, hemoglobin 9.6, hematocrit 28.9, and platelets of 212. ASSESSMENT: A 69-year-old male; 1. Surgical site wound with purulent drainage and cellulitis. 2. Type 2 diabetes mellitus. 3. Hypertension. PLAN OF CARE: 1. CT of the abdomen was ordered that showed fluid collection/abscess at the gallbladder fossa, so I will continue with antibiotics, recommend consulting either surgery or interventional radiology for drainage of the abscess. 2. NovoLog sliding scale for diabetes. 3. Pain control and bowel regimen. Further treatment will be based on hospital course. Dictated By: Pawan Restrepo MD WT: HP:DINA/GERTRUDIS. Conf#: [id number]#: [id number] Authenticated by Pawan Restrepo MD On 11/09/2019 10:42:10 PM at 2242 PATIENT NAME: SEYMOUR SNOW [facility] 2019-10-02 23:04:00 [facility] Admit Note - Brief REPORT#:[id number] REPORT STATUS: Signed DATE:10/02/19 TIME: 230 PATIENT: SEYMOUR SNOW UNIT #: [id number] ROOM/BED: [address] : 48 AGE: 69 SEX: M ATTEND: Lizzy Duke MD ADM AUTHOR: Pawan Restrepo MD * ALL edits or amendments must be made on the electronic/computer document * History of Present Illness History of present illness: [id number] History - Adult longitudinal Allergies: Coded Allergies: No Known Allergies (10/26/18) at 0740 RPT #:[id number] END OF REPORT [facility] 2019-10-02 16:10:00 [facility] General Surgery Progress Note REPORT#:[id number] REPORT STATUS: Signed DATE:10/02/19 TIME: 161 PATIENT: SEYMOUR SNOW UNIT #: [id number] ROOM/BED: : 48 AGE: 69 SEX: M ATTEND: Lizzy Duke MD ADM AUTHOR: Elicia Paul BALL WARPER TENDER * ALL edits or amendments must be made on the electronic/computer document * Subjective Chief Complaint: abdominal pain HPI: Pt known to the acute/general surgery service. S/p laparoscopic converted to open cholecystectomy with drain placement on 09/25/2019. Postop pt with persistent leukocytosis, 20 from 09/25 to 09/27. During this time he remained afebrile. He continued on IV Zosyn. PCT was wnl on 09/27. On 09/28/2019 during AM rounding, it was reported that the pt had a desaturation with pulse ox into high 80s. CTA chest, CT abdomen/pelvis completed. At that time, no discernable fluid collection, CATHRYN drain was in proper placement. CTA chest was negative for PE, findings of small right pleural effusion with bibasilar consolidation. ID was consulted and the pt was addtionally placed on PO diflucan. CATHRYN drain was discontinued 09/29/2019. Leukocytosis improved/resolved. Currently afebrile, Tmax 99F. Acute/general surgery reconsulted while pt at rehab d/t drainage from abdominal incision. Review of Systems Free Text ROS Notes Free Text ROS Notes: ROS negative unless noted in above HPI of the following systems: constitutional, eyes, HENT, neck, neuro, CV, resp, GI, , msk, skin Objective General VS/I O: Patient Weight Weight (lb): Weight (oz): Weight (kg): Physical Exam General appearance: alert, awake, oriented, no acute distress, conversational Wound/incision: Location: abdominal incision Cardiovascular: normal heart sounds Respiratory: aerating well, equal breath sounds, no distress, on NC Abdomen: tenderness (RUQ), , soft, generalized abd pain, specifically RUQ. Generalized erythema surrounding incision site. [place] intact , serosang/purulent drainage on abd pad. No expressible fluid collection Extremities: moves all, normal temperature Neuro/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: alert, oriented x 3 Results Results: labs reviewed, vital signs stable, current med profile rev'd Diagnosis, Assessment Plan Free Text A P: Assessment: 69 year old male s/p laparoscopic cholecystectomy convered to open with drain placement (drain dcd 09/28). Plan: Generalized abdominal pain, specifically RUQ. Erythema noted surrounding incision site. Baljeet intact. Serosang/purulent drainage noted on abd pad. No expressible fluid collection - 2-3 baljeet removed from distal portion of wound with drainage of serosang/ purulent fluid. - wound cultures obtained and sent. - no leukocytosis, T max 99F. - CT abdomen/pelvis c IV/PO contrast ordered. - documented desaturation this AM. Will additionally obtain CTA chest. - while inpt, ID had been consulted. Pt has remained on IV Zosyn, diflucan added 09/27 per ID. - recorded hypotensive episode, SBP 82 with tachycardia. Discussed with rehab physician Dr. Mays above information. Recommendation that pt transfer to inpatient setting. Admit to IM service, reconsult ID. Dispo: General surgery will continue to follow. Please call [phone] with any questions or concerns. at 1642 RPT #:[id number] END OF REPORT [facility] 2019-10-02 16:10:00 [facility]) General Surgery Progress Note REPORT#:[id number] REPORT STATUS: Signed DATE:10/02/19 TIME: 1609 PATIENT: SEYMOUR SNOW UNIT #: [id number] ROOM/BED: [address] : 48 AGE: 69 SEX: M ATTEND: Lizzy Duke MD ADM AUTHOR: Elicia Paul NP * ALL edits or amendments must be made on the electronic/computer document * See Addendum Subjective Chief Complaint: abdominal pain HPI: Pt known to the acute/general surgery service. S/p laparoscopic converted to open cholecystectomy with drain placement on 09/25/2019. Postop pt with persistent leukocytosis, 20 from 09/25 to 09/27. During this time he remained afebrile. He continued on IV Zosyn. PCT was wnl on 09/27. On 09/28/2019 during AM rounding, it was reported that the pt had a desaturation with pulse ox into high 80s. CTA chest, CT abdomen/pelvis completed. At that time, no discernable fluid collection, CATHRYN drain was in proper placement. CTA chest was negative for PE, findings of small right pleural effusion with bibasilar consolidation. ID was consulted and the pt was addtionally placed on PO diflucan. CATHRYN drain was discontinued 09/29/2019. Leukocytosis improved/resolved. Currently afebrile, Tmax 99F. Acute/general surgery reconsulted while pt at rehab d/t drainage from abdominal incision. Review of Systems Free Text ROS Notes Free Text ROS Notes: ROS negative unless noted in above HPI of the following systems: constitutional, eyes, HENT, neck, neuro, CV, resp, GI, , msk, skin Objective General VS/I O: Patient Weight Weight (lb): Weight (oz): Weight (kg): Physical Exam General appearance: alert, awake, oriented, no acute distress, conversational Wound/incision: Location: abdominal incision Cardiovascular: normal heart sounds Respiratory: aerating well, equal breath sounds, no distress, on NC Abdomen: tenderness (RUQ), , soft, generalized abd pain, specifically RUQ. Generalized erythema surrounding incision site. [place] intact , serosang/purulent drainage on abd pad. No expressible fluid collection Extremities: moves all, normal temperature Neuro/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: alert, oriented x 3 Results Results: labs reviewed, vital signs stable, current med profile rev'd Diagnosis, Assessment Plan Free Text A P: Assessment: 69 year old male s/p laparoscopic cholecystectomy convered to open with drain placement (drain dcd 09/28). Plan: Generalized abdominal pain, specifically RUQ. Erythema noted surrounding incision site. Baljeet intact. Serosang/purulent drainage noted on abd pad. No expressible fluid collection - 2-3 baljeet removed from distal portion of wound with drainage of serosang/ purulent fluid. - wound cultures obtained and sent. - no leukocytosis, T max 99F. - CT abdomen/pelvis c IV/PO contrast ordered. - documented desaturation this AM. Will additionally obtain CTA chest. - while inpt, ID had been consulted. Pt has remained on IV Zosyn, diflucan added 09/27 per ID. - recorded hypotensive episode, SBP 82 with tachycardia. Discussed with rehab physician Dr. Mays above information. Recommendation that pt transfer to inpatient setting. Admit to IM service, reconsult ID. Dispo: General surgery will continue to follow. Please call [phone] with any questions or concerns. at 1642 Addendum 1: 10/02/19 1930 by Dulce Bradford MD I was present with the BALL WARPER TENDER during the history and examination. I discussed the case with the BALL WARPER TENDER and agree with the findings and plan as documented in the BALL WARPER TENDER's note. Patient is a 69-year-old man well-known to our service status post lap converted to open cholecystectomy with drain placement on 09/25/2019. Postoperative course per above. Now with complaint of abdominal pain, and rehab physician concern for wound erythema and tenderness. Most recent CBC on 10/01/2019, with WBC of 9.6, Hgb of 9.7. Glucose elevated, with most greater than 150. Patient has been afebrile. Chart review also notable for episode of tachycardia to the 160s this morning, with desaturation requiring oxygen application. Patient states that he did feel poorly at that time, and short of breath, but denied chest pain , nausea or vomiting. On my exam patient with breath sounds equal bilaterally. Nasal cannula in place. Abdomen soft, locally tender around the incision, which is intact with baljeet. Tonie-incisional erythema with blanching present. Lateral-most baljeet removed, with immediate drainage of seropurulent output. Wound drainage cultured. Wound packed. Plan: Recommend CT of the chest, abdomen, and pelvis with IV contrast Patient should likely be admitted back to the hospital to the medicine service, for further work-up, particularly in light of his recent morning episode of tachycardia and shortness of breath. Unknown if he perhaps had a episode of A. fib with RVR. Currently remains on Diflucan and Zosyn. May want to reengage infectious disease to determine if a change in antibiotics is recommended Labs reviewed. Pertinent imaging personally reviewed. Discussed plan with other members of the healthcare team. Dulce Bradford MD Trauma and Acute Care Surgery Surgical Critical Care at 1940 RPT #:[id number] END OF REPORT [facility] 2019-10-02 14:47:00 [id number] [facility] [address] [facility], [place] [place] [address] PATIENT NAME: SEYMOUR SNOW ADMIT DATE: 10/01/19 ACCOUNT NO: [id number] ROOM NO: [facility] AGE: 69 REPORT TYPE: HISTORY AND PHYSICAL SEX: M ADMITTING PHYSICIAN:Darrick Benson ATTENDING PHYSICIAN:Darrick Benson ADMISSION DATE: 10/01/2019 ADMITTING DIAGNOSES: Debility due to biliary pancreatitis and chronic cholecystitis, status post open cholecystectomy, hypertension, diabetes mellitus, and hyperlipidemia. HISTORY OF PRESENTING ILLNESS: Mr. Jayla Sarah is a 69-year-old male, who was admitted for epigastric pain, nausea, and vomiting. He was noted to be in the biliary colic. He underwent open cholecystectomy due to adhesions from a cirrhotic liver. He was seen by infectious disease and had electrolyte imbalances during his stay. Once he was medically stable, he was thought to be a good candidate for inpatient rehab. When I saw the patient, he was having trouble with physical therapy as his blood pressure was falling. He was also complaining of some drainage at the site of his wound. PAST MEDICAL HISTORY: Hypertension, diabetes mellitus, and hyperlipidemia. PAST SURGICAL HISTORY: Recent open cholecystectomy, and neck surgery several years ago. FAMILY HISTORY: Noncontributory. SOCIAL HISTORY: The patient does not smoke. He occasionally drinks alcohol. ALLERGIES: NO KNOWN DRUG ALLERGIES. MEDICATIONS: Please refer to chart. REVIEW OF SYSTEMS: As described in history of presenting illness. PHYSICAL EXAMINATION: VITAL SIGNS: Blood pressure is 100/66, pulse is 103 per minute, respirations are 15 per minute, and temperature is 99.5 degrees. GENERAL: This is an obese, older male lying in bed, who does not appear to be in any distress. HEART: Rate and rhythm regular. S1 and S2 present. LUNGS: Clear to auscultation. ABDOMEN: Soft and obese. EXTREMITIES: Reveal no cyanosis or clubbing. NEUROLOGICAL: The patient is awake and alert. He answers questions and follows commands. Face is symmetric. Speech is fluent and he moves all extremities PATIENT NAME: SEYMOUR SNOW symmetrically. PLAN: The plan is for physical therapy for strengthening, transfer training, training with assistive devices and ambulation including stairs. Occupational therapy will be working with activities of daily living including upper and lower body dressing, grooming, toileting, toilet and shower transfers, and self-feeding. I do not anticipate a need for speech therapy at this time. Nursing will be following for signs of skin breakdown or infection. They will also be monitoring bowel and bladder and instituting bowel and bladder protocols as needed. We will be monitoring blood pressure and blood sugars for fluctuations with increasing activity levels. We have asked internal medicine and hospitalist to follow him with us. Anticipated length of stay is 11 days with discharge home with family. Dictated By: Mercy Mays MD WT: HP:DINA/NOHEMY/NTS Conf#: [id number]/DID#: [id number] Authenticated by Mercy Mays MD On 10/12/2019 04:09:20 PM at 1609 PATIENT NAME: SEYMOUR SNOW [facility] 2019-10-02 14:45:00 ([facility]) Rehab History Physical REPORT#:[id number] REPORT STATUS: Signed DATE:10/02/19 TIME: 1445 PATIENT: SEYMOUR SNOW UNIT #: [id number] ROOM/BED: [address] : 48 AGE: 69 SEX: M ATTEND: Darrick Benson [facility] AUTHOR: Mercy Mays MD * ALL edits or amendments must be made on the electronic/computer document * HPI HPI Etiologic diagnosis: Debility Cholecystitis s/p cholecystectomy Impairment group: debility HPI: See dictation #[id number] History Preadmit diagnostic/labs: Date: 09/30/19 WBC: 10.3 HGB: 10.9 HCT: 32.4 Ca: 7.7 Na: 135 K+: 3.7 Glu: 178 Mg: BUN: 5 Creat: 0.5 Tot protein: Alb: PTT: PT: INR: PLT: 227 Additional labs: 09/22/19 COVID-19: Negative 09/22/19 Urine: Glucose 150 (2+) Cultures: Imagin09/28/19 XR Chest: Patchy perihilar and basilar opacities compatible with areas of atelectasis and patchy bilateral consolidation. Other supporting diagnostics: Past medical history: Reports: Diabetes mellitus, Hypertension. Additional surgical history: Neck surgery, 40 years ago Alcohol use: Denies EtOH use Drug use: Denies recreational drugs Smoking status for patients 13 years old or older: Never Smoker Other social history: Good social support Allergies: Coded Allergies: No Known Allergies (10/26/18) ROS ROS Constitutional: Reports: generalized weakness. Denies: chills, fatigue, fever, lethargy, malaise, recent wt loss. Objective Physical Exam VS: Last Documented: Result Date Time Pulse Ox 95 10/01 1415 B/P 100/66 10/01 1415 B/P Mean 77.1 10/01 1415 FiO2 100 10/01 1415 O2 Delivery Nasal cannula 10/01 1415 O2 Flow Rate 2.607293 10/01 1415 Pulse 103 10/01 1415 Temp 99.5 10/01 1350 Resp 15 10/01 0629 Patient Weight Weight (lb): 248 Weight (oz): 10.9 Weight (kg): 112.800 General appearance: alert, awake, no acute distress, pleasant, conversational, mental status normal, no respiratory distress Psych: alert, normal affect HEENT: anicteric, mucosal membranes moist, pupils reactive to light, sclera clear Neck: non-tender, supple Cardiovascular: regular rate rhythm, S1/S2 Respiratory: aerating well, clear bilaterally, clear to auscultation Abdomen: bowel sounds present, non-distended Musculoskeletal - general: Musculoskeletal - general: joints normal, normal muscle mass, normal tone, range of motion normal, strength testing normal Diagnosis, Assessment Plan Diagnosis, Assessment Plan Problem List/A P: 1. Cholecystitis 2. Uncontrolled type 2 diabetes mellitus with hyperglycemia 3. Debility Free Text A P: Start therapy See EMR for nursing, meds and therapy Review of comorbidities: See PAS at 1451 [facility] #:[id number] END OF REPORT [facility] 2019-10-02 07:50:00 ([facility]) Adult General Consultation REPORT#:[id number] REPORT STATUS: Signed DATE:10/02/19 TIME: 0750 PATIENT: SEYMOUR SNOW UNIT #: [id number] ROOM/BED: [address] : 48 AGE: 69 SEX: M ATTEND: Darrick Benson ADM AUTHOR: Soto Hudson BALL WARPER TENDER * ALL edits or amendments must be made on the electronic/computer document * History of Present Illness Requesting Clinician: Dr. Benson Reason for consult: medical management Chief complaint: debility HPI: 69-year-old male with past medical history of type 2 diabetes mellitus, hypertension, had been experiencing epigastric and right upper quadrant pain for the past 2 weeks. Apparently 5 days prior to his admission he was in [place], went to a doctor, was told to have fatty liver, but then since he began having nausea and vomiting, so he came to ER. Ultrasound shows gallstones. Patient was taken in for laparascopic cholecystectomy which then became open cholecystectomy , drain placed. Patient experienced fevers, chills, and leukocytosis for which ID recommended IV antibiotic and antifungal. Patient responded well to treatment. Patient with debility and recommended for in patient rehab and admitted now for continued therapies prior to discharging back to home. History - Adult longitudinal Past medical history: Reports: Diabetes mellitus, Hypertension. Additional surgical history: Neck surgery, 40 years ago Alcohol use: Denies EtOH use Drug use: Denies recreational drugs Smoking status for patients 13 years old or older: Never Smoker Other social history: Good social support Medications: Home Medications: Medication Dose/Rte/Freq Days Qty Entered Last Max Daily Dose Reviewed LOSARTAN (COZAAR) 50 MG PO BID 09/22/19 Strength: 50 MG TAB 2251 FLUCONAZOLE (DIFLUCAN) 200 MG PO 4 10/01/19 Strength: 200 MG TAB DAILY@1600 1409 methocarbamoL (ROBAXIN) 500 MG PO BID 7 10/01/19 Strength: 500 MG TAB 1409 ACETAMINOPHEN (TYLENOL) 650 MG PO 30 10/01/19 Strength: 325 MG TAB Q8HR PRN pain 1410 traMADol (ULTRAM) 50 MG PO 30 10/01/19 Strength: 50 MG TAB Q4H PRN PRN Pain 1410 Scale 7-10 BISACODYL EC 10 MG PO 30 10/01/19 (DULCOLAX EC) DAILY PRN PRN 1410 Strength: 5 MG TAB.DR CONSTIPATION POLYETHYLENE GLYCOL 1 PKT PO DAILY 30 10/01/19 3350 1410 (MIRALAX) Strength: 17 GM POWDER metFORMIN (GLUCOPHAGE) 500 MG PO C BK DIN 30 10/01/19 Strength: 500 MG TAB 1412 Current Hospital Medications: Anti-Infective Agents Sig/Mary Start time Last Medication Dose Route Stop Time Status Admin Fluconazole 200 MG DAILY@1600 05/16 1600 AC (DIFLUCAN) PO 10/15 1601 Piperacillin Sod/ 3.375 GM Q8HR 05/15 2200 AC 10/01 Tazobactam Sod IV 10/11 2158 0505 (ZOSYN) Sodium Chloride 100 ML (SODIUM CHLORIDE 0.9%) Blood Formation,Coagulation Sig/Mary Start time Last Medication Dose Route Stop Time Status Admin Enoxaparin Sodium 40 MG Q24H 10/01 0900 AC (LOVENOX) SUBQ 10/31 0901 Cardiovascular Drugs Sig/Mary Start time Last Medication Dose Route Stop Time Status Admin Losartan Potassium 50 MG BID 09/30 2100 AC 09/30 (COZAAR) PO 10/30 2100 205 Central Nervous System Agents Sig/Mary Start time Last Medication Dose Route Stop Time Status Admin Acetaminophen 650 MG Q4H PRN PRN 09/30 183 AC (TYLENOL REGULAR) PO 10/30 1546 Tramadol HCl 50 MG Q4H PRN PRN 09/30 1830 AC 10/01 (ULTRAM) PO 10/10 1546 0523 Electrolytic, Caloric, And Eli Sig/Mary Start time Last Medication Dose Route Stop Time Status Admin Dextrose/Water 25 ML ASDIR PRN 09/30 1830 AC (DEXTROSE 50% SYR) IV 10/30 1546 Lactulose 30 ML DAILY PRN PRN 09/30 1830 CKD (CONSTULOSE) PO 10/30 1546 Gastrointestinal Drugs Sig/Mary Start time Last Medication Dose Route Stop Time Status Admin Bisacodyl 10 MG DAILY PRN PRN 09/30 1830 AC (DULCOLAX,CORRECTOL) PO 10/30 1546 Magnesium Hydroxide 30 ML DAILY PRN PRN 09/30 1830 AC (MILK OF MAGNESIA U/ PO 10/30 1546 D) Ondansetron Base 4 MG Q4H PRN PRN 09/30 1830 AC (ZOFRAN ODT) SL 10/30 1546 Senna/Docusate Sodium 2 TAB DAILY PRN PRN 09/30 1830 AC (SENOKOT-S) PO 10/30 1546 Hormones And Synthetic Substit Sig/Mary Start time Last Medication Dose Route Stop Time Status Admin Metformin HCl 500 MG C BK DIN 10/01 0800 AC (GLUCOPHAGE) PO 10/31 0801 Glucagon 1 MG ASDIR PRN 09/30 1830 AC (GLUCAGON) IM 10/30 1546 Insulin Human Lispro See Dose ASDIR 09/30 1830 AC (HumaLOG) Insts (1) SUBQ 10/30 1546 Dose Instructions: (1)Insulin Human Lispro (HumaLOG): LOW DOSE SCALE Allergies: Coded Allergies: No Known Allergies (10/26/18) Review of Systems Constitutional: Denies: chills, fatigue. Skin: other (R quad wound with dressing). Allergy/Immun: Denies: allergic reaction, anaphylaxis. Eyes: Denies: redness, discharge. ENT: Denies: sore throat. Respiratory: Reports: PRITCHARD (dyspnea on exertion). Denies: SOB, wheezing. Cardiovascular: Denies: chest pain, edema. GI: Reports: abdominal pain. Denies: constipation, diarrhea, nausea, vomiting. : Denies: dysuria, flank pain. Musculoskeletal: Denies: arthritis, extremity pain. Neuro: Denies: dizziness, headache. Psych: Denies: agitation, anxiety. Objective VS/I O: Last Documented: Result Date Time Pulse Ox 95 10/01 628 B/P 120/72 10/01 628 B/P Mean 88.0 10/01 628 Temp 36.7 10/01 06 Pulse 92 10/01 06 Resp 15 10/01 628 O2 Delivery Room air 09/30 1900 24 hour I O ending at 0700: 10/01 0700 09/30 1900 Intake Total 510.00 Output Total 600 Balance -90.00 Intake, IV 10.00 Intake, Oral 500 Number Voids 1 Output, Urine 600 Patient 112.8 kg Weight Weight Bed scale Measurement Method Patient Weight Weight (lb): 248 Weight (oz): 10.9 Weight (kg): 112.800 General appearance: obese, alert, awake, oriented, no acute distress Head/Eyes: normal conjunctiva/sclera ENT: moist mucosal membranes Neck: no JVD Cardiovascular: tachycardia Respiratory: aerating well, no distress Abdomen: tenderness (RUQ), soft, no rebound, no distention Genitourinary: no bladder distension Extremities: no clubbing, no cyanosis Musculoskeletal: normal inspection Neuro/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: alert, oriented X 3, normal speech Skin: has abdominal incision to RUQ with dressing in place, serosanguinous drainage. abdominal incision to umbilicus with baljeet, c/d/i Psychiatry: normal affect, normal judgment/insight, normal mood Results Findings/Data: Laboratory Tests: 10/01 09/30 09/30 0539 9 2056 Chemistry Sodium (137 - 145 mmol/L) 131 L Potassium (3.4 - 5.0 mmol/L) 3.4 Chloride (98 - 107 mmol/L) 97 L Carbon Dioxide (22 - 30 mmol/L) 29 BUN (9 - 20 mg/dL) 6 L Creatinine (0.7 - 1.3 mg/dL) 0.5 L Glomerular Filtr Rate (>60) 174 Glucose (74 - 106 mg/dL) 205 H POC Glucose (74 - 106 MG/DL) 129 H 236 H Calcium (8.4 - 10.2 mg/dL) 7.1 L Total Bilirubin (0.2 - 1.3 mg/dL) 1.1 Conjugated Bilirubin (0 - 0.3 mg/dL) 0 Unconjugated Bilirubin (0 - 1.1 mg/dL) 0.3 AST (15 - 46 U/L) 35 ALT (13 - 69 U/L) 38 Total Alk Phosphatase (38 - 126 U/L) 193 H Total Protein (6.3 - 8.2 g/dL) 5.7 L Albumin (3.5 - 5.0 g/dL) 2.7 L Coagulation INR 1.3 PTT (Kip) (23.4 - 37.0 SECONDS) 32.0 PT Patient/Control Mix (9.2 - 12.1 SECONDS) 14.6 H Hematology WBC (5.0 - 12.0 x10 3/uL) 9.6 RBC (4.70 - 6.10 x10 6/uL) 3.12 L Hgb (14.0 - 18.0 g/dL) 9.7 L Hct (37.0 - 49.0 %) 28.4 L MCV (80 - 94 fL) 91 MCH (27 - 31 pg) 31.1 H MCHC (33 - 37 g/dL) 34.2 RDW (11.5 - 15.5 %) 12.9 Plt Count (130 - 400 x10 3/uL) 209 MPV (9.4 - 16.4 fL) 9.4 Neut % (Auto) (43 - 65 %) 71.7 H Lymph % (Auto) (20.5 - 45.5 %) 18.0 L [place] % (Auto) (5.5 - 11.7 %) 6.9 Eos % (Auto) (0.9 - 2.9 %) 2.4 Baso % (Auto) (0.2 - 1.0 %) 0.5 Neut # (Auto) (2.2 - 4.8 x10 3/uL) 6.84 H Lymph # (Auto) (1.3 - 2.9 x10 3/uL) 1.72 [place] # (Auto) (0.3 - 0.8 x10 3/uL) 0.66 Eos # (Auto) (0.0 - 0.2 x10 3/uL) 0.23 H Baso # (Auto) (0.0 - 0.1 x10 3/uL) 0.05 Immature Gran % (0.0 - 2.0 %) 0.5 Nucleated RBC % (0 - 1.0 %) 0.0 Urines Urine Color (Yellow) Tasneem H Urine Appearance (Clear) Clear Urine pH (5.0 - 8.0) 6.0 Ur Specific [place] (<1.030) 1.020 Urine Protein (Negative mg/dL) NEGATIVE Urine Glucose (UA) (Negative) 50 (1+) H Urine Ketones (Negative mg/dL) Negative Urine Blood (Negative) Negative Urine Nitrite (Negative) Negative Urine Bilirubin (Negative) Negative Urine Urobilinogen (Negative mg/dL) 4.0 H Ur Leukocyte Esterase (Negative) NEGATIVE Urine RBC (<4 - 5 /HPF) 0-3 Urine WBC (<4 - 5 /HPF) 0-3 Ur Squamous Epith Cells (0 - 5 (RARE) /HPF) 0-5 (RARE) Urine Bacteria (None - Rare /HPF) NONE SEEN Urine Mucus (<Rare /LPF) Rare Results: labs reviewed, vital signs stable, current med profile rev'd Diagnosis, Assessment Plan Free Text DxA P Notes Free Text DxA P Notes: 69yo M admitted for management of cholecystitis. #Cholecystitis: VARUN s/p lap mag(09/24) -CT abd/pelv 09/27 with post op changes, no discrete defined fluid collection -CTA chest with no evidence of pulmonary embolism -drain removed by GS, pt to f/u with GS in clinic 10/08/19 # BP dropped, HR up, increased drainage at RUQ incision, shortness of breath and hypoxia when sitting up with therapist per nurse --decrease dosage of losartan from 50mg to 25mg and add parameter to hold if SBP less than 120 --supplemental O2 via NC as needed, obtain CXR for follow up --reinforce dressing to wound RUQ, GS to be notified of increased drainage --labs in AM --schedule nebs, encourage IS use --obtain ortho v/s #Elevated LFTs -improved #Hypokalemia -replaced #T2DM: hyperglycemic; A1c 9.5 -continues on metformin, continue PRN SSI #HTN -continue losartan #Obesity: BMI > 30 -weight loss counseling #HLD: ASCVD > 7.5% -consider statin initiation, pending improvement in LFTs #Fever, leukocytosis -CXR with atelectasis and patchy bilateral consolidation, continue nebs, IS use, ambulate -PCT level was normal -ID recs continue zosyn and diflucan x 7 days -WBC down to normal Dispo: Continue IV ABTs per ID recs, 3 more days. Continue per IPR protocol. Attestations Attestation needed: supervising physician at 1741 RPT #:[id number] END OF REPORT [facility] 2019-10-02 07:50:00 [facility] Adult General Consultation REPORT#:[id number] REPORT STATUS: Signed DATE:10/02/19 TIME: 0750 PATIENT: SEYMOUR SNOW UNIT #: [id number] ROOM/BED: [address] : 48 AGE: 69 SEX: M ATTEND: Darrick Benson ADM AUTHOR: Soto Hudson NP * ALL edits or amendments must be made on the electronic/computer document * History of Present Illness Requesting Clinician: Dr. Benson Reason for consult: medical management Chief complaint: debility HPI: 69-year-old male with past medical history of type 2 diabetes mellitus, hypertension, had been experiencing epigastric and right upper quadrant pain for the past 2 weeks. Apparently 5 days prior to his admission he was in [place], went to a doctor, was told to have fatty liver, but then since he began having nausea and vomiting, so he came to ER. Ultrasound shows gallstones. Patient was taken in for laparascopic cholecystectomy which then became open cholecystectomy , drain placed. Patient experienced fevers, chills, and leukocytosis for which ID recommended IV antibiotic and antifungal. Patient responded well to treatment. Patient with debility and recommended for in patient rehab and admitted now for continued therapies prior to discharging back to home. History - Adult longitudinal Past medical history: Reports: Diabetes mellitus, Hypertension. Additional surgical history: Neck surgery, 40 years ago Alcohol use: Denies EtOH use Drug use: Denies recreational drugs Smoking status for patients 13 years old or older: Never Smoker Other social history: Good social support Medications: Home Medications: Medication Dose/Rte/Freq Days Qty Entered Last Max Daily Dose Reviewed LOSARTAN (COZAAR) 50 MG PO BID 09/22/19 Strength: 50 MG TAB 2251 FLUCONAZOLE (DIFLUCAN) 200 MG PO 4 10/01/19 Strength: 200 MG TAB DAILY@1600 1409 methocarbamoL (ROBAXIN) 500 MG PO BID 7 10/01/19 Strength: 500 MG TAB 1409 ACETAMINOPHEN (TYLENOL) 650 MG PO 30 10/01/19 Strength: 325 MG TAB Q8HR PRN pain 1410 traMADol (ULTRAM) 50 MG PO 30 10/01/19 Strength: 50 MG TAB Q4H PRN PRN Pain 1410 Scale 7-10 BISACODYL EC 10 MG PO 30 10/01/19 (DULCOLAX EC) DAILY PRN PRN 1410 Strength: 5 MG TAB.DR CONSTIPATION POLYETHYLENE GLYCOL 1 PKT PO DAILY 30 10/01/19 3350 1410 (MIRALAX) Strength: 17 GM POWDER metFORMIN (GLUCOPHAGE) 500 MG PO C BK DIN 30 10/01/19 Strength: 500 MG TAB 1412 Current Hospital Medications: Anti-Infective Agents Sig/Mary Start time Last Medication Dose Route Stop Time Status Admin Fluconazole 200 MG DAILY@1600 16 1600 AC (DIFLUCAN) PO 10/15 1601 Piperacillin Sod/ 3.375 GM Q8HR 09/30 2199 AC 10/01 Tazobactam Sod IV 10/11 2158 0505 (ZOSYN) Sodium Chloride 100 ML (SODIUM CHLORIDE 0.9%) Blood Formation,Coagulation Sig/Mary Start time Last Medication Dose Route Stop Time Status Admin Enoxaparin Sodium 40 MG Q24H 05/16 0900 AC (LOVENOX) SUBQ 10/31 0901 Cardiovascular Drugs Sig/Mary Start time Last Medication Dose Route Stop Time Status Admin Losartan Potassium 50 MG BID 09/30 2100 AC 09/30 (COZAAR) PO 10/30 Central Nervous System Agents Sig/Mary Start time Last Medication Dose Route Stop Time Status Admin Acetaminophen 650 MG Q4H PRN PRN 09/30 1830 AC (TYLENOL REGULAR) PO 10/30 1546 Tramadol HCl 50 MG Q4H PRN PRN 09/30 1830 AC 10/01 (ULTRAM) PO 10/10 1546 0523 Electrolytic, Caloric, And Eli Sig/Mary Start time Last Medication Dose Route Stop Time Status Admin Dextrose/Water 25 ML ASDIR PRN 09/30 1830 AC (DEXTROSE 50% SYR) IV 10/30 1546 Lactulose 30 ML DAILY PRN PRN 09/30 1830 CKD (CONSTULOSE) PO 10/30 1546 Gastrointestinal Drugs Sig/Mary Start time Last Medication Dose Route Stop Time Status Admin Bisacodyl 10 MG DAILY PRN PRN 09/30 1830 AC (DULCOLAX,CORRECTOL) PO 10/30 1546 Magnesium Hydroxide 30 ML DAILY PRN PRN 09/30 1830 AC (MILK OF MAGNESIA U/ PO 10/30 1546 D) Ondansetron Base 4 MG Q4H PRN PRN 09/30 1830 AC (ZOFRAN ODT) SL 10/30 1546 Senna/Docusate Sodium 2 TAB DAILY PRN PRN 09/30 1830 AC (SENOKOT-S) PO 10/30 1546 Hormones And Synthetic Substit Sig/Mary Start time Last Medication Dose Route Stop Time Status Admin Metformin HCl 500 MG C BK DIN 10/01 0800 AC (GLUCOPHAGE) PO 10/31 0801 Glucagon 1 MG ASDIR PRN 09/30 1830 AC (GLUCAGON) IM 10/30 1546 Insulin Human Lispro See Dose ASDIR 09/30 1830 AC (HumaLOG) Insts (1) SUBQ 10/30 1546 Dose Instructions: (1)Insulin Human Lispro (HumaLOG): LOW DOSE SCALE Allergies: Coded Allergies: No Known Allergies (10/26/18) Review of Systems Constitutional: Denies: chills, fatigue. Skin: other (R quad wound with dressing). Allergy/Immun: Denies: allergic reaction, anaphylaxis. Eyes: Denies: redness, discharge. ENT: Denies: sore throat. Respiratory: Reports: PRITCHARD (dyspnea on exertion). Denies: SOB, wheezing. Cardiovascular: Denies: chest pain, edema. GI: Reports: abdominal pain. Denies: constipation, diarrhea, nausea, vomiting. : Denies: dysuria, flank pain. Musculoskeletal: Denies: arthritis, extremity pain. Neuro: Denies: dizziness, headache. Psych: Denies: agitation, anxiety. Objective VS/I O: Last Documented: Result Date Time Pulse Ox 95 10/01 628 B/P 120/72 10/01 628 B/P Mean 88.0 10/01 628 Temp 36.7 10/01 628 Pulse 92 10/01 628 Resp 15 10/01 628 O2 Delivery Room air 09/30 1900 24 hour I O ending at 0700: 10/01 0700 09/30 1900 Intake Total 510.00 Output Total 600 Balance -90.00 Intake, IV 10.00 Intake, Oral 500 Number Voids 1 Output, Urine 600 Patient 112.8 kg Weight Weight Bed scale Measurement Method Patient Weight Weight (lb): 248 Weight (oz): 10.9 Weight (kg): 112.800 General appearance: obese, alert, awake, oriented, no acute distress Head/Eyes: normal conjunctiva/sclera ENT: moist mucosal membranes Neck: no JVD Cardiovascular: tachycardia Respiratory: aerating well, no distress Abdomen: tenderness (RUQ), soft, no rebound, no distention Genitourinary: no bladder distension Extremities: no clubbing, no cyanosis Musculoskeletal: normal inspection Neuro/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: alert, oriented X 3, normal speech Skin: has abdominal incision to RUQ with dressing in place, serosanguinous drainage. abdominal incision to umbilicus with baljeet, c/d/i Psychiatry: normal affect, normal judgment/insight, normal mood Results Findings/Data: Laboratory Tests: 10/01 Chemistry Sodium (137 - 145 mmol/L) 131 L Potassium (3.4 - 5.0 mmol/L) 3.4 Chloride (98 - 107 mmol/L) 97 L Carbon Dioxide (22 - 30 mmol/L) 29 BUN (9 - 20 mg/dL) 6 L Creatinine (0.7 - 1.3 mg/dL) 0.5 L Glomerular Filtr Rate (>60) 174 Glucose (74 - 106 mg/dL) 205 H POC Glucose (74 - 106 MG/DL) 129 H 236 H Calcium (8.4 - 10.2 mg/dL) 7.1 L Total Bilirubin (0.2 - 1.3 mg/dL) 1.1 Conjugated Bilirubin (0 - 0.3 mg/dL) 0 Unconjugated Bilirubin (0 - 1.1 mg/dL) 0.3 AST (15 - 46 U/L) 35 ALT (13 - 69 U/L) 38 Total Alk Phosphatase (38 - 126 U/L) 193 H Total Protein (6.3 - 8.2 g/dL) 5.7 L Albumin (3.5 - 5.0 g/dL) 2.7 L Coagulation INR 1.3 PTT (Kip) (23.4 - 37.0 SECONDS) 32.0 PT Patient/Control Mix (9.2 - 12.1 SECONDS) 14.6 H Hematology WBC (5.0 - 12.0 x10 3/uL) 9.6 RBC (4.70 - 6.10 x10 6/uL) 3.12 L Hgb (14.0 - 18.0 g/dL) 9.7 L Hct (37.0 - 49.0 %) 28.4 L MCV (80 - 94 fL) 91 MCH (27 - 31 pg) 31.1 H MCHC (33 - 37 g/dL) 34.2 RDW (11.5 - 15.5 %) 12.9 Plt Count (130 - 400 x10 3/uL) 209 MPV (9.4 - 16.4 fL) 9.4 Neut % (Auto) (43 - 65 %) 71.7 H Lymph % (Auto) (20.5 - 45.5 %) 18.0 L [place] % (Auto) (5.5 - 11.7 %) 6.9 Eos % (Auto) (0.9 - 2.9 %) 2.4 Baso % (Auto) (0.2 - 1.0 %) 0.5 Neut # (Auto) (2.2 - 4.8 x10 3/uL) 6.84 H Lymph # (Auto) (1.3 - 2.9 x10 3/uL) 1.72 [place] # (Auto) (0.3 - 0.8 x10 3/uL) 0.66 Eos # (Auto) (0.0 - 0.2 x10 3/uL) 0.23 H Baso # (Auto) (0.0 - 0.1 x10 3/uL) 0.05 Immature Gran % (0.0 - 2.0 %) 0.5 Nucleated RBC % (0 - 1.0 %) 0.0 Urines Urine Color (Yellow) Tasneem H Urine Appearance (Clear) Clear Urine pH (5.0 - 8.0) 6.0 Ur Specific [place] (<1.030) 1.020 Urine Protein (Negative mg/dL) NEGATIVE Urine Glucose (UA) (Negative) 50 (1+) H Urine Ketones (Negative mg/dL) Negative Urine Blood (Negative) Negative Urine Nitrite (Negative) Negative Urine Bilirubin (Negative) Negative Urine Urobilinogen (Negative mg/dL) 4.0 H Ur Leukocyte Esterase (Negative) NEGATIVE Urine RBC (<4 - 5 /HPF) 0-3 Urine WBC (<4 - 5 /HPF) 0-3 Ur Squamous Epith Cells (0 - 5 (RARE) /HPF) 0-5 (RARE) Urine Bacteria (None - Rare /HPF) NONE SEEN Urine Mucus (<Rare /LPF) Rare Results: labs reviewed, vital signs stable, current med profile rev'd Diagnosis, Assessment Plan Free Text DxA P Notes Free Text DxA P Notes: 69yo M admitted for management of cholecystitis. #Cholecystitis: VARUN s/p lap mag(09/24) -CT abd/pelv 09/27 with post op changes, no discrete defined fluid collection -CTA chest with no evidence of pulmonary embolism -drain removed by GS, pt to f/u with GS in clinic 10/08/19 # BP dropped, HR up, increased drainage at RUQ incision, shortness of breath and hypoxia when sitting up with therapist per nurse --decrease dosage of losartan from 50mg to 25mg and add parameter to hold if SBP less than 120 --supplemental O2 via NC as needed, obtain CXR for follow up --reinforce dressing to wound RUQ, GS to be notified of increased drainage --labs in AM --schedule nebs, encourage IS use --obtain ortho v/s #Elevated LFTs -improved #Hypokalemia -replaced #T2DM: hyperglycemic; A1c 9.5 -continues on metformin, continue PRN SSI #HTN -continue losartan #Obesity: BMI > 30 -weight loss counseling #HLD: ASCVD > 7.5% -consider statin initiation, pending improvement in LFTs #Fever, leukocytosis -CXR with atelectasis and patchy bilateral consolidation, continue nebs, IS use, ambulate -PCT level was normal -ID recs continue zosyn and diflucan x 7 days -WBC down to normal Dispo: Continue IV ABTs per ID recs, 3 more days. Continue per IPR protocol. Attestations Attestation needed: supervising physician at 1741 at [id number] RPT #:[id number] END OF REPORT [facility] 2019-10-01 15:30:00 [facility] Rehab Preadmission Screen REPORT#: REPORT STATUS: DATE:10/01/19 TIME: 1530 PATIENT: SEYMOUR SNOW UNIT #: ROOM: BED: : 48 AGE: 69 SEX: M ATTEND: Darrick Benson PROJECTED ADM AUTHOR: Darrick Benson REP SRV REP SRV TM: 1530 * ALL edits or amendments must be made on the electronic/computer document * IRF Preadmission Screen Functional Assessment Level of function: The data set between the solid lines has been imported from multidisciplinary team documentation: __ Functional Assessment: Prior device use: None Prior device use additional information: Func. Task Prior LOF Current LOF Expected LOF Bathing Independent Partial/moderate asst Independent U.B. Dressing Independent Supervise/touch asst Independent L.B. Dressing Independent Partial/moderate asst Independent Bed/Ch Transf. Independent Supervise/touch asst Independent Toilet Transfer Independent Supervise/touch asst Independent Stairs Independent Partial/moderate asst Independent Language and Cognition: Patient is alert, oriented, and able to follow commands in order to participate and benefit from inpatient rehab. He is Dutch speaking and a translater will be provided. Locomotion prior device use: None Locomotion prior level of function: Independent Description of prior level of locomotion: Locomotion current device: RW/FWW Locomotion current level of function: Supervise/touch asst Locomotion current distance traveled without a rest break: 125 feet Description of current level of locomotion: Narrow base of support Flexed posture Locomotion expected level of function: Independent Description of expected level of locomotion: Using assistive devices as needed Overall functional comment: Patient presents with decreased strength, decreased balance, and decreased activity tolerance all of which negatively impact his ability to complete self care tasks and functional mobility tasks with increased independence and safety which prevents him from returning home safely at this time. __ Information From [facility] CRS PAS documentation: The data set between the solid lines has been imported from CRS PAS documentation. Preadmission Information: Demographics Assessment date: 10/01/19 Assessment time: 1318 Patient has an Advanced Directive: Content of advance directive/living will/plan of care: Copy of advance directive on chart: Referring physician: Srikanth Primary care provider: None stated Consulting physician(s): Lauro Bradford Referral contact name: Garima Referral contact number: [phone] Referring setting: Acute hospital Impairment group: Impairment group: Debility Etiologic diagnosis: Debility due to biliary pancreatitis and chronic cholecytitis; s/p open cholecystectomy Review of med conditions: Date of onset: 09/22/19 Current surgery date and type: 09/25/19 Laparoscopic converted to open cholecystectomy Active comorbid conditions: HTN, DM, Leukocytosis, Elevated liver enzymes, Hypokalemia, Obesity, Hyperlipidemia, Fever Past medical/surgical history: Significant for DM, HTN, and a neck surgery approximately 40 years ago. Risk for medical/clinical complications: Infection, Injury d/t falls, Pain, Skin breakdown, Constipation, Depression, Cardiac instability, BP fluctuation, Blood sugar fluctuation, Arrhythmia, Incisional dehiscence, Hypoxia, Respiratory insufficiency Acute hospital stay summary: This 69-year-old male presented to the hospital with c/o epigastric and right upper quadrant pain for the past two weeks. Approximately 5 days prior to presentation patient had seen a doctor in [place] that told him he had a fatty liver a gallbladder that needed to be removed, but he declined surgery there opting to come back to the [facility] for surgery. 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 He did change his diet as suggested and has lost about 20 pounds per patient report. The day before presentation he began having nause and vomiting causing him to come to the ER. Ultrasound revealed gallstones. He was diagnosed with biliary colic and surgical was consulted. He was scheduled for lap cholecystectomy but during surgery it was converted to open cholocystectomy due to adhesions and lack of retraction because of cirrhotic liver. After the surgery nitzatent experienced fevers, chills, and leukocytosis. Infectious diseases was consulted and it was felt that the symptoms were due to the surgery without any other underlying infections. Patient was also diagnosed with hypokalemia and hyperlipidemia during this stay. His acute conditions have been stabilized and his chronic conditions have been managed. He is now medically stable and is ready for inpatient rehab to address his functional deficits related to his recent illness, surgical procedure, and subsequent hospitalization. Patient requires 24 hour medical management during this rehab stay for pain management, monitoring for signs and symptoms of infection, monitoring of wound healing, blood pressure management, blood glucose level monitoring and management, and monitoring of reactions to medications. Prior to onset patient was living at home alone but can discharge home with his son after rehab for assistance if needed. 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 Plan is for patient to either return home or stay with his son after rehab. Preadmit vitals: Date/Time 10/01/19 1116 Temp F Temp C 36.8 Pulse 89 RR 18 BP 103/67 SPO2% 95 Ht ft 6 Ht in 2 Wt lbs 240.000 BMI 30.8 Supporting diagnostics/labs/radiology/cardiology : Date: 09/30/19 WBC: 10.3 HGB: 10.9 HCT: 32.4 Ca: 7.7 Na: 135 K+: 3.7 Glu: 178 Mg: BUN: 5 Creat: 0.5 Tot protein: Alb: PTT: PT: INR: PLT: 227 Additional labs: 09/22/19 COVID-19: Negative 09/22/19 Urine: Glucose 150 (2+) Cultures: Imagin09/28/19 XR Chest: Patchy perihilar and basilar opacities compatible with areas of atelectasis and patchy bilateral consolidation. Other supporting diagnostics: Neurologic status: Neurologic status: Alert, Oriented to person, Oriented to place, Oriented to time, Follows simple commands Patient's mood and behavior: Appropriate, Social Hand dominance: Right Bowel/Bladder: Continent of bladder for developmental age: Yes Number of bladder accidents in last 48 hours: Catheter type: Insertion date: Bladder comment: Aids: Continent of bowel for developmental age: Yes Number of bowel accidents in last 48 hours: Date of last BM: 10/01/19 Colostomy: Ileostomy: Bowel comment: Aids: Skin: Skin alteration: Present/Exists Skin alteration 1 Type: Incision Location: Abdomen right upper quad Stage: Description: Skin alteration 2 Type: Procedure site Location: Umbilical Stage: Description: Skin alteration 3 Type: Location: Stage: Description: Skin alteration 4 Type: Location: Stage: Description: Eating/Nutritional: Eating/nutritional requirement: PO regular food, PO thin liquids Eating compensatory strategies: Medication administration: Medications whole, IV, Subcutaneous Rehab needs: Special rehabilitation needs: O2, IV/PICC/CVC, Preferred language Special rehabilitation precautions: Safety/fall Pre-hospital: Pre-hospital services utilized: None 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 Marital status: Hobbies/leisure activities: Prior living situation: Home Living with: Alone Living with comment: Patient was living alone but can discharge home with son if needed after rehab. Anticipated DC Plan/Post IRF: Expected discharge destination: Home Expected discharge physical layout: One story, Tub/shower combo Number of external stairs: Number of internal stairs: Grab bars location: Anticipated services upon discharge: Home health, Nursing, Occupational therapy, Physical therapy Barriers to discharge: None Options discussed with patient: Yes Options discussed with caregiver: Yes Patient agrees with program requirements: Yes Primary support contact: Patti Dickerson Relationship to patient: Son Phone number 1: [phone] Phone number 2: Caregiver availability: Evenings only Caregiver can provide: Intermittent assistance, Physical assistance Patient and caregiver goals and preferences: Patient's goal is to go home. Activity Tolerance: Current treatment interventions: Occupational therapy, Physical therapy Patient able to tolerate 3 hours of therapy a day: Yes Patient able to tolerate 15 hours of therapy a week: Altered therapy schedule comment: Acute Inpatient Rehab Plan: Estimated length of stay in days: 11 Anticipated services in acute inpatient rehab: Additional services, Rehab nursing 09/12, life sciences manager, Occupational therapy, Physical therapy Discipline Physical Therapy Occupational Therapy Speech Therapy Intensity (minutes/day) 90 90 Frequency (days/week) 5 5 Duration (# of days) 11 11 Additional services: Compressor Station Engineer ROBERT electronic signature: CRS #1 electronic signature: Radha JONES credentials: OTR Date: 10/01/19 Time: 1421 CRS #2 electronic signature: ROBERT credentials: Date: Time: CRS #3 electronic signature: CRS credentials: Date: Time: Provider Pre-Admit Summary Acute IP rehab admit: criteria met MD determination Based upon my evaluation and review of the supporting assessment documentation and consultation with the preadmission display department manager, I have determined, prior to admitting this patient, that there is reasonable expectation that at the time of admission to the IRF, the patient's medical management and rehabilitation needs require an inpatient stay and close physician involvement. In addition, this patient qualifies for acute inpatient rehab admission by functional and medical criteria and can be expected to actively participate in, and benefit from, an intensive rehab therapy program. at 1531 RPT #:[id number] END OF REPORT [facility] 14:[facility] Discharge Summary REPORT#:[id number] REPORT STATUS: Signed DATE:10/01/19 TIME: 1412 PATIENT: SEYMOUR SNOW UNIT #: [id number] ROOM/BED: [address] : 48 AGE: 69 SEX: M ATTEND: Lizzy Duke MD ADM AUTHOR: Soto Hudson NP * ALL edits or amendments must be made on the electronic/computer document * PCP PCP PCP: PCP: No Primary or Family Physician Discharge to: rehab General Information Discharge date: 10/01/19 Hospital course: 69yo M admitted for management of cholecystitis. #Cholecystitis: VARUN s/p lap mag(09/24) -continue management per general surgery consult service -CT abd/pelv 09/27 with post op changes, no discrete defined fluid collection -CTA chest with no evidence of pulmonary embolism -drain removed by GS, pt to f/u with GS in clinic 10/08/19 #Elevated LFTs -monitor trend #Hypokalemia -replaced #T2DM: hyperglycemic; A1c 9.5 -continues on metformin, continue PRN SSI #HTN: stable off ARB -continue supportive care #Obesity: BMI > 30 -ensure low salt DM diet < 2000 kcal #HLD: ASCVD > 7.5% -consider statin initiation prior to DC, pending improvement in LFTs #Fever, leukocytosis -CXR with atelectasis and patchy bilateral consolidation, continue nebs, IS use, ambulate -PCT level was normal -ID recs continue zosyn and diflucan x 7 days -WBC down to normal #OT recs home w/fam and HH, consulted CM to assist with arranging #Dispo: Continue IV ABTs per ID recs, 4 more days. PT/OT to continue to mobilize. Plans for rehab. Free Text General Notes Free Text General Notes: Patient accepted to [place] re[facility]. Plans to dc today, continue IV ABTs and diflucan PO x 4 more days per ID recs. Med Rec PCP PCP: PCP: No Primary or Family Physician Med Rec Discharge meds: Stop taking the following medications: metFORMIN (GLUCOPHAGE) 850 MG TAB 850 MILLIGRAM ORAL TWICE DAILY. [ANTIBIOITC] Continue taking these medications: LOSARTAN (COZAAR) 50 MG TAB 50 MILLIGRAM ORAL TWICE DAILY. Start taking the following new medications: FLUCONAZOLE (DIFLUCAN) 200 MG TAB 200 MILLIGRAM ORAL DAILY. Days = 4 No Refills methocarbamoL (ROBAXIN) 500 MG TAB 500 MILLIGRAM ORAL TWICE DAILY. Days = 7 No Refills ACETAMINOPHEN (TYLENOL) 325 MG TAB 650 MILLIGRAM ORAL EVERY 8 HOURS. as needed for pain Days = 30 No Refills traMADol (ULTRAM) 50 MG TAB 50 MILLIGRAM ORAL EVERY 4 HOURS NEEDED. as needed for Pain Scale 7-10 Days = 30 No Refills BISACODYL EC (DULCOLAX EC) 5 MG TAB.DR 10 MILLIGRAM ORAL DAILY NEEDED. as needed for CONSTIPATION Days = 30 No Refills POLYETHYLENE GLYCOL 3350 (MIRALAX) 17 GM POWDER 1 PACKET ORAL DAILY. Days = 30 No Refills metFORMIN (GLUCOPHAGE) 500 MG TAB 500 MILLIGRAM ORAL WITH BREAKFAST AND DINNER. Days = 30 No Refills Objective VS/I O Last Documented: Result Date Time Pulse Ox 95 09/30 1116 B/P 103/67 09/30 1116 B/P Mean 78.7 09/30 1116 O2 Delivery Room air 09/30 1116 Temp 36.8 09/30 1116 Pulse 89 09/30 1116 Resp 18 09/30 1116 O2 Flow Rate [id number] 09/29 1351 FiO2 21 09/27 1245 24 hour I O ending at 0700: 09/30 0700 09/29 1900 Intake Total Output Total Balance Patient 108.862 kg Weight Patient Weight Weight (lb): 240 Weight (oz): 8.07 Weight (kg): 108.862 General appearance: obese, alert, awake, oriented, no acute distress Head/Eyes: normal conjunctiva/sclera ENT: moist mucosal membranes Neck: no JVD Cardiovascular: regular rate rhythm Respiratory: no distress, aerating well GI: soft, non-tender Genitourinary: no bladder distension Extremities: no clubbing, no cyanosis Musculoskeletal: normal inspection Neuro/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: alert, oriented X 3, normal speech Skin: surgical incision to abdomen Psychiatry: normal affect, normal judgment/insight, normal mood Results Findings/Data: Laboratory Tests: 09/30 09/30 09/29 09/29 1114 0538 1926 1606 Chemistry POC Glucose (74 - 106 MG/DL) 198 H 144 H 178 H 261 H Results: no new labs, vital signs stable, current med profile rev'd Discharge Instructions F/U labs/procedures/tests: f/u with surgeon, ID, PCP Prescriptions: none Discharge management: greater than 30 mins Follow-up Appointments PCP: PCP: No Primary or Family Physician Attending Physician: Attending Physician: Lizzy Duke MD Consulting provider 1: Provider 1: Dulce Bradford MD Specialty: GENERAL SURGERY Appt. date: 10/08/19 Attestations Attestation needed: supervising physician at 1151 RPT #:[id number] END OF REPORT [facility] 2019-10-01 14:12:00 [facility] Discharge Summary REPORT#:[id number] REPORT STATUS: Signed DATE:10/01/19 TIME: 1412 PATIENT: SEYMOUR SNOW UNIT #: [id number] ROOM/BED: [address] : 48 AGE: 69 SEX: M ATTEND: Lizzy Duke MD ADM AUTHOR: Soto Hudson BALL WARPER TENDER * ALL edits or amendments must be made on the electronic/computer document * PCP PCP PCP: PCP: No Primary or Family Physician Discharge to: rehab General Information Discharge date: 10/01/19 Hospital course: 69yo M admitted for management of cholecystitis. #Cholecystitis: VARUN s/p lap mag(09/24) -continue management per general surgery consult service -CT abd/pelv 09/27 with post op changes, no discrete defined fluid collection -CTA chest with no evidence of pulmonary embolism -drain removed by GS, pt to f/u with GS in clinic 10/08/19 #Elevated LFTs -monitor trend #Hypokalemia -replaced #T2DM: hyperglycemic; A1c 9.5 -continues on metformin, continue PRN SSI #HTN: stable off ARB -continue supportive care #Obesity: BMI > 30 -ensure low salt DM diet < 2000 kcal #HLD: ASCVD > 7.5% -consider statin initiation prior to DC, pending improvement in LFTs #Fever, leukocytosis -CXR with atelectasis and patchy bilateral consolidation, continue nebs, IS use, ambulate -PCT level was normal -ID recs continue zosyn and diflucan x 7 days -WBC down to normal #OT recs home w/fam and HH, consulted CM to assist with arranging #Dispo: Continue IV ABTs per ID recs, 4 more days. PT/OT to continue to mobilize. Plans for rehab. Free Text General Notes Free Text General Notes: Patient accepted to [place] [facility]. Plans to dc today, continue IV ABTs and diflucan PO x 4 more days per ID recs. Med Rec PCP PCP: PCP: No Primary or Family Physician Med Rec Discharge meds: Stop taking the following medications: metFORMIN (GLUCOPHAGE) 850 MG TAB 850 MILLIGRAM ORAL TWICE DAILY. [ANTIBIOITC] Continue taking these medications: LOSARTAN (COZAAR) 50 MG TAB 50 MILLIGRAM ORAL TWICE DAILY. Start taking the following new medications: FLUCONAZOLE (DIFLUCAN) 200 MG TAB 200 MILLIGRAM ORAL DAILY. Days = 4 No Refills methocarbamoL (ROBAXIN) 500 MG TAB 500 MILLIGRAM ORAL TWICE DAILY. Days = 7 No Refills ACETAMINOPHEN (TYLENOL) 325 MG TAB 650 MILLIGRAM ORAL EVERY 8 HOURS. as needed for pain Days = 30 No Refills traMADol (ULTRAM) 50 MG TAB 50 MILLIGRAM ORAL EVERY 4 HOURS NEEDED. as needed for Pain Scale 7-10 Days = 30 No Refills BISACODYL EC (DULCOLAX EC) 5 MG TAB.DR 10 MILLIGRAM ORAL DAILY NEEDED. as needed for CONSTIPATION Days = 30 No Refills POLYETHYLENE GLYCOL 3350 (MIRALAX) 17 GM POWDER 1 PACKET ORAL DAILY. Days = 30 No Refills metFORMIN (GLUCOPHAGE) 500 MG TAB 500 MILLIGRAM ORAL WITH BREAKFAST AND DINNER. Days = 30 No Refills Objective VS/I O Last Documented: Result Date Time Pulse Ox 95 09/30 1116 B/P 103/67 09/30 1116 B/P Mean 78.7 09/30 1116 O2 Delivery Room air 09/30 1116 Temp 36.8 09/30 1116 Pulse 89 09/30 1116 Resp 18 09/30 1116 O2 Flow Rate 2.947030 09/29 1351 FiO2 21 09/27 1245 24 hour I O ending at 0700: 09/30 0700 09/29 1900 Intake Total Output Total Balance Patient 108.862 kg Weight Patient Weight Weight (lb): 240 Weight (oz): 8.07 Weight (kg): 108.862 General appearance: obese, alert, awake, oriented, no acute distress Head/Eyes: normal conjunctiva/sclera ENT: moist mucosal membranes Neck: no JVD Cardiovascular: regular rate rhythm Respiratory: no distress, aerating well GI: soft, non-tender Genitourinary: no bladder distension Extremities: no clubbing, no cyanosis Musculoskeletal: normal inspection Neuro/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: alert, oriented X 3, normal speech Skin: surgical incision to abdomen Psychiatry: normal affect, normal judgment/insight, normal mood Results Findings/Data: Laboratory Tests: 09/30 09/30 09/29 09/29 1114 0538 1926 1606 Chemistry POC Glucose (74 - 106 MG/DL) 198 H 144 H 178 H 261 H Results: no new labs, vital signs stable, current med profile rev'd Discharge Instructions F/U labs/procedures/tests: f/u with surgeon, ID, PCP Prescriptions: none Discharge management: greater than 30 mins Follow-up Appointments PCP: PCP: No Primary or Family Physician Attending Physician: Attending Physician: Lizzy Duke MD Consulting provider 1: Provider 1: Dulce Bradford MD Specialty: GENERAL SURGERY Appt. date: 10/08/19 Attestations Attestation needed: supervising physician at 1151 at 1351 RPT #:[id number] END OF REPORT [facility] 2019-10-01 14:09:00 ([facility]) Infectious Dis. Progress Note REPORT#:[id number] REPORT STATUS: Signed DATE:10/01/19 TIME: 1409 PATIENT: SEYMOUR SNOW UNIT #: [id number] ROOM/BED: [address] : 48 AGE: 69 SEX: M ATTEND: Lizzy Duke MD ADM AUTHOR: Allie Phelps MD * ALL edits or amendments must be made on the electronic/computer document * Subjective Chief Complaint: doing well no new c/o Objective General VS/I O: Last Documented: Result Date Time Pulse Ox 95 09/30 1116 B/P 103/67 09/30 1116 B/P Mean 78.7 09/30 1116 O2 Delivery Room air 09/30 1116 Temp 98.2 09/30 1116 Pulse 89 09/30 1116 Resp 18 09/30 1116 O2 Flow Rate 2.720188 09/29 1351 FiO2 21 09/27 1245 Vital Signs Date Temp Pulse Resp B/P B/P Mean Pulse Ox FiO2 09/29-09/30 98.2-100.0 84-100 15- 103-133/67-78 78.7-96.3 92-96 24 hour I O ending at 0700: 09/30 0700 09/29 1900 Intake Total Output Total Balance Patient 108.862 kg Weight Patient Weight Weight (lb): 240 Weight (oz): 8.07 Weight (kg): 108.862 Physical Exam General appearance: alert, awake Head/Eyes: atraumatic, clear cornea Neck: full range of motion, non-tender Cardiovascular: normal heart sounds Respiratory: clear to auscultation, aerating well Abdomen: soft Extremities: moves all Results Findings/Data: Laboratory Tests 09/30 09/30 09/29 09/29 1114 0538 1926 1606 Chemistry POC Glucose (74 - 106 MG/DL) 198 H 144 H 178 H 261 H Diagnosis, Assessment Plan Free Text A P: Acute cholecystitis s/p surgery zosyn / diflucan 4 more days Leukocytosis -resolved Recs zosyn/diflucan 4 more days at 1447 [facility] #:[id number] END OF REPORT [facility] 2019-10-01 07:23:00 [facility] REPORT#:[id number] REPORT STATUS: Signed DATE:10/01/19 TIME: 0723 PATIENT: SEYMOUR SNOW UNIT #: [id number] ROOM/BED: [address] : 48 AGE: 69 SEX: M ATTEND: Lizzy Duke MD ADM AUTHOR: Soto Hudson NP * ALL edits or amendments must be made on the electronic/computer document * Subjective Chief Complaint: fatigue abdominal pain Review of Systems Constitutional: Reports: fatigue, generalized weakness. Denies: chills, fever. Skin: Denies: abrasion, bruising. Allergy/Immun: Denies: allergic reaction, anaphylaxis. Eyes: Denies: redness, discharge. ENT: Denies: sore throat. Respiratory: Denies: PRITCHARD (dyspnea on exertion), non productive cough, SOB, wheezing. Cardiovascular: Denies: chest pain, edema. GI: Reports: abdominal pain. Denies: constipation, diarrhea, nausea, vomiting. : Denies: dysuria, flank pain. Musculoskeletal: Denies: arthritis, extremity pain. Neuro: Denies: dizziness, headache. Psych: Denies: agitation, anxiety. Objective General VS/I O: Vital Signs: Date Time Temp Pulse Resp B/P B/P Pulse O2 O2 Flow FiO2 Mean Ox Delivery Rate 09/30 0308 36.8 85 15 114/72 85.8 96 09/29 2259 37.8 95 16 133/78 96.3 94 09/29 1924 37.0 89 16 127/74 91.8 92 09/29 1607 36.8 100 18 110/71 83.8 92 Room air 09/29 1351 92 Nasal 2.168238 cannula 09/29 1150 36.9 89 14 133/79 97.2 95 Room air 24 hour I O ending at 0700: 09/30 0700 09/29 1900 Intake Total Output Total Balance Patient 108.862 kg Weight Patient Weight Weight (lb): 240 Weight (oz): 8.07 Weight (kg): 108.862 Medications: Active Meds + DC'd Last 24 Hrs Metformin HCl 500 MG C BK DIN PO Tramadol HCl 50 MG Q4H PRN PRN PO Bisacodyl 10 MG DAILY PRN PRN PO Polyethylene Glycol 1 PKT DAILY PO (CKD) Piperacillin Sod/Tazobactam Sod 3.375 GM Q8HR IV Sodium Chloride 100 ML Fluconazole 200 MG DAILY@1600 PO Metformin HCl 500 MG C BK DIN PO (DC) Sodium Chloride 1,000 ML .Q20H IV Enoxaparin Sodium 30 MG 0400,1600 SUBQ Oxycodone HCl 5 MG Q6H PRN PRN PO (DC) Acetaminophen 975 MG Q8HR PO Methocarbamol 500 MG BID PO Hydromorphone HCl 0.5 MG Q4H PRN PRN IV (DC) Losartan Potassium 50 MG BID PO Pneumococcal 13-Valent Conj Vacc 0.5 ML ASDIR IM Dextrose/Water 25 ML ASDIR PRN IV Insulin Human Lispro LOW DOSE SCALE ASDIR SUBQ Morphine Sulfate 2 MG Q4H PRN PRN IV (DC) Ondansetron HCl 4 MG Q4H PRN PRN IV Physical Exam General appearance: obese, alert, awake, oriented, no acute distress Head/Eyes: normal conjunctiva/sclera ENT: moist mucosal membranes Neck: full range of motion, non-tender, no JVD Cardiovascular: regular rate rhythm Respiratory: aerating well, no distress Abdomen: obese, tenderness, no distention, abdominal dressing in place, drain to R quad Genitourinary: no bladder distention Extremities: no clubbing, no cyanosis, no edema Musculoskeletal: normal inspection Neuro/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: alert, oriented X 3, normal speech Skin: abdominal incisions to abdomen with dressings in place Psychiatry: normal affect, normal judgment/insight, normal mood Results Findings/Data: Laboratory Tests 09/30 09/29 09/29 09/29 0538 1926 1606 1151 Chemistry POC Glucose (74 - 106 MG/DL) 144 H 178 H 261 H 176 H Results: no new labs, vital signs stable, current med profile rev'd Diagnosis, Assessment Plan Free Text DxA P Notes Free text DxA P notes: 69yo M admitted for management of cholecystitis. #Cholecystitis: VARUN s/p lap mag(09/24) -continue management per general surgery consult service -CT abd/pelv 09/27 with post op changes, no discrete defined fluid collection -CTA chest with no evidence of pulmonary embolism -drain removed by GS, pt to f/u with GS in clinic 10/08/19 #Elevated LFTs -monitor trend #Hypokalemia -replaced #T2DM: hyperglycemic; A1c 9.5 -continues on metformin, continue PRN SSI #HTN: stable off ARB -continue supportive care #Obesity: BMI > 30 -ensure low salt DM diet < 2000 kcal #HLD: ASCVD > 7.5% -consider statin initiation prior to DC, pending improvement in LFTs #Fever, leukocytosis -CXR with atelectasis and patchy bilateral consolidation, continue nebs, IS use, ambulate -PCT level was normal -ID recs continue zosyn and diflucan x 7 days -WBC down to normal #OT recs home w/fam and HH, consulted CM to assist with arranging #Dispo: Continue IV ABTs per ID recs, 4 more days. PT/OT to continue to mobilize. Rehab eval. Discussed with CM this morning and patient. Attestations Attestation needed: supervising physician at 1358 RPT #:[id number] END OF REPORT [facility] 2019-10-01 07:23:00 [facility] REPORT#:[id number] REPORT STATUS: Signed DATE:10/01/19 TIME: 722 PATIENT: MYA SNOWNCIO UNIT #: [id number] ROOM/BED: [address] : 48 AGE: 69 SEX: M ATTEND: Lizzy Duke MD ADM AUTHOR: Soto Hudson NP * ALL edits or amendments must be made on the electronic/computer document * Subjective Chief Complaint: fatigue abdominal pain Review of Systems Constitutional: Reports: fatigue, generalized weakness. Denies: chills, fever. Skin: Denies: abrasion, bruising. Allergy/Immun: Denies: allergic reaction, anaphylaxis. Eyes: Denies: redness, discharge. ENT: Denies: sore throat. Respiratory: Denies: PRITHCARD (dyspnea on exertion), non productive cough, SOB, wheezing. Cardiovascular: Denies: chest pain, edema. GI: Reports: abdominal pain. Denies: constipation, diarrhea, nausea, vomiting. : Denies: dysuria, flank pain. Musculoskeletal: Denies: arthritis, extremity pain. Neuro: Denies: dizziness, headache. Psych: Denies: agitation, anxiety. Objective General VS/I O: Vital Signs: Date Time Temp Pulse Resp B/P B/P Pulse O2 O2 Flow FiO2 Mean Ox Delivery Rate 09/30 0308 36.8 85 15 114/72 85.8 96 09/29 2259 37.8 95 16 133/78 96.3 94 09/29 1924 37.0 89 16 127/74 91.8 92 09/29 1607 36.8 100 18 110/71 83.8 92 Room air 09/29 1351 92 Nasal 2.654455 cannula 09/29 1150 36.9 89 14 133/79 97.2 95 Room air 24 hour I O ending at 0700: 09/30 0700 09/29 1900 Intake Total Output Total Balance Patient 108.862 kg Weight Patient Weight Weight (lb): 240 Weight (oz): 8.07 Weight (kg): 108.862 Medications: Active Meds + DC'd Last 24 Hrs Metformin HCl 500 MG C BK DIN PO Tramadol HCl 50 MG Q4H PRN PRN PO Bisacodyl 10 MG DAILY PRN PRN PO Polyethylene Glycol 1 PKT DAILY PO (CKD) Piperacillin Sod/Tazobactam Sod 3.375 GM Q8HR IV Sodium Chloride 100 ML Fluconazole 200 MG DAILY@1600 PO Metformin HCl 500 MG C BK DIN PO (DC) Sodium Chloride 1,000 ML .Q20H IV Enoxaparin Sodium 30 MG 0400,1600 SUBQ Oxycodone HCl 5 MG Q6H PRN PRN PO (DC) Acetaminophen 975 MG Q8HR PO Methocarbamol 500 MG BID PO Hydromorphone HCl 0.5 MG Q4H PRN PRN IV (DC) Losartan Potassium 50 MG BID PO Pneumococcal 13-Valent Conj Vacc 0.5 ML ASDIR IM Dextrose/Water 25 ML ASDIR PRN IV Insulin Human Lispro LOW DOSE SCALE ASDIR SUBQ Morphine Sulfate 2 MG Q4H PRN PRN IV (DC) Ondansetron HCl 4 MG Q4H PRN PRN IV Physical Exam General appearance: obese, alert, awake, oriented, no acute distress Head/Eyes: normal conjunctiva/sclera ENT: moist mucosal membranes Neck: full range of motion, non-tender, no JVD Cardiovascular: regular rate rhythm Respiratory: aerating well, no distress Abdomen: obese, tenderness, no distention, abdominal dressing in place, drain to R quad Genitourinary: no bladder distention Extremities: no clubbing, no cyanosis, no edema Musculoskeletal: normal inspection Neuro/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: alert, oriented X 3, normal speech Skin: abdominal incisions to abdomen with dressings in place Psychiatry: normal affect, normal judgment/insight, normal mood Results Findings/Data: Laboratory Tests 09/30 09/29 09/29 09/29 0538 1926 1606 1151 Chemistry POC Glucose (74 - 106 MG/DL) 144 H 178 H 261 H 176 H Results: no new labs, vital signs stable, current med profile rev'd Diagnosis, Assessment Plan Free Text DxA P Notes Free text DxA P notes: 69yo M admitted for management of cholecystitis. #Cholecystitis: VARUN s/p lap mag(09/24) -continue management per general surgery consult service -CT abd/pelv 09/27 with post op changes, no discrete defined fluid collection -CTA chest with no evidence of pulmonary embolism -drain removed by GS, pt to f/u with GS in clinic 10/08/19 #Elevated LFTs -monitor trend #Hypokalemia -replaced #T2DM: hyperglycemic; A1c 9.5 -continues on metformin, continue PRN SSI #HTN: stable off ARB -continue supportive care #Obesity: BMI > 30 -ensure low salt DM diet < 2000 kcal #HLD: ASCVD > 7.5% -consider statin initiation prior to DC, pending improvement in LFTs #Fever, leukocytosis -CXR with atelectasis and patchy bilateral consolidation, continue nebs, IS use, ambulate -PCT level was normal -ID recs continue zosyn and diflucan x 7 days -WBC down to normal #OT recs home w/fam and HH, consulted CM to assist with arranging #Dispo: Continue IV ABTs per ID recs, 4 more days. PT/OT to continue to mobilize. Rehab eval. Discussed with CM this morning and patient. Attestations Attestation needed: supervising physician at 1358 at 1354 RPT #:[id number] END OF REPORT [facility] 2019-09-30 15:13:00 ([facility]) Infectious Dis. Progress Note REPORT#:[id number] REPORT STATUS: Signed DATE:09/30/19 TIME: 1513 PATIENT: SEYMOUR SNOW UNIT #: [id number] ROOM/BED: [address] : 48 AGE: 69 SEX: M ATTEND: Lizzy Duke MD ADM AUTHOR: Martín Denis DO * ALL edits or amendments must be made on the electronic/computer document * Subjective HPI: patient with no issues Objective General VS/I O: Last Documented: Result Date Time Pulse Ox 92 09/29 1351 O2 Delivery Nasal cannula 09/29 1351 O2 Flow Rate 2.408859 09/29 1351 B/P 133/79 09/29 1150 B/P Mean 97.2 09/29 1150 Temp 36.9 09/29 1150 Pulse 89 09/29 1150 Resp 14 09/29 1150 FiO2 21 09/27 1245 Vital Signs Date Temp Pulse Resp B/P B/P Mean Pulse Ox FiO2 09/28-09/29 36.8-37.3 78-98 14-20 115-162/75-79 88.6-104.0 90-95 24 hour I O ending at 0700: 09/29 0700 09/28 1900 Intake Total Output Total 600 Balance -600 Output, Urine 600 Patient 108.862 kg Weight Patient Weight Weight (lb): 240 Weight (oz): 8.07 Weight (kg): 108.862 Physical Exam General appearance: chronically ill appearing Head/Eyes: atraumatic, clear cornea Neck: full range of motion, non-tender Cardiovascular: normal heart sounds Respiratory: clear to auscultation, aerating well Abdomen: soft Extremities: moves all Diagnosis, Assessment Plan Free Text A P: acute mag - s/p surgery - cont zosyn / diflucan - ct neg for abscess - 5 days leukocytosis - likely from above -resolved recs zosyn/diflucan 5 days at 1515 RPT #:[id number] END OF REPORT [facility] 2019-09-30 08:29:00 ([facility] Hospitalist Progress Note REPORT#:[id number] REPORT STATUS: Signed DATE:09/30/19 TIME: 828 PATIENT: SEYMOUR SNOW UNIT #: [id number] ROOM/BED: [address] : 48 AGE: 69 SEX: M ATTEND: Lizzy Duke MD ADM AUTHOR: Soto Hudson NP * ALL edits or amendments must be made on the electronic/computer document * Subjective Chief Complaint: fatigue abdominal pain Review of Systems Constitutional: Reports: fatigue, generalized weakness. Denies: chills, fever. Skin: Denies: abrasion, bruising. Allergy/Immun: Denies: allergic reaction, anaphylaxis. Eyes: Denies: redness, discharge. ENT: Denies: sore throat. Respiratory: Reports: PRITCHARD (dyspnea on exertion). Denies: non productive cough, SOB, wheezing. Cardiovascular: Denies: chest pain, edema. GI: Reports: abdominal pain. Denies: constipation, diarrhea, nausea, vomiting. : Denies: dysuria, flank pain. Musculoskeletal: Denies: arthritis, extremity pain. Neuro: Denies: dizziness, headache. Psych: Denies: agitation, anxiety. Objective General VS/I O: Vital Signs: Date Time Temp Pulse Resp B/P B/P Pulse O2 O2 Flow FiO2 Mean Ox Delivery Rate 09/29 0717 37.0 98 14 115/76 88.6 91 Room air 09/29 0333 37.2 80 20 162/75 104.0 91 Room air 09/29 0019 36.9 83 20 134/75 94.7 92 Room air 09/29 0006 92 Room air 09/28 2010 36.8 80 20 145/78 100.0 92 Room air 09/28 1528 37.3 78 16 145/75 98.0 90 Room air 09/28 1117 36.7 78 16 111/71 84.3 89 Room air 24 hour I O ending at 0700: 09/29 0700 09/28 1900 Intake Total Output Total 600 Balance -600 Output, Urine 600 Patient 108.862 kg Weight Patient Weight Weight (lb): 240 Weight (oz): 8.07 Weight (kg): 108.862 Medications: Active Meds + DC'd Last 24 Hrs Bisacodyl 10 MG DAILY PRN PRN PO Polyethylene Glycol 1 PKT DAILY PO (CKD) Potassium Chloride 20 MEQ ONCE ONE PO (DC) Piperacillin Sod/Tazobactam Sod 3.375 GM Q8HR IV Sodium Chloride 100 ML Fluconazole 200 MG DAILY@1600 PO Metformin HCl 500 MG C BK DIN PO (r) Sodium Chloride 1,000 ML .Q20H IV Enoxaparin Sodium 30 MG 0400,1600 SUBQ Oxycodone HCl 5 MG Q6H PRN PRN PO Acetaminophen 975 MG Q8HR PO Methocarbamol 500 MG BID PO Hydromorphone HCl 0.5 MG Q4H PRN PRN IV Losartan Potassium 50 MG BID PO Pneumococcal 13-Valent Conj Vacc 0.5 ML ASDIR IM Dextrose/Water 25 ML ASDIR PRN IV Insulin Human Lispro LOW DOSE SCALE ASDIR SUBQ Morphine Sulfate 2 MG Q4H PRN PRN IV Ondansetron HCl 4 MG Q4H PRN PRN IV Physical Exam General appearance: obese, alert, awake, oriented, no acute distress Head/Eyes: normal conjunctiva/sclera ENT: moist mucosal membranes Neck: full range of motion, non-tender, no JVD Cardiovascular: regular rate rhythm Respiratory: aerating well, no distress Abdomen: obese, tenderness, no distention, abdominal dressing in place, drain to R quad Genitourinary: no bladder distention Extremities: no clubbing, no cyanosis, no edema Musculoskeletal: normal inspection Neuro/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: alert, oriented X 3, normal speech Skin: abdominal incisions to abdomen with dressings in place Psychiatry: normal affect, normal judgment/insight, normal mood Results Findings/Data: Laboratory Tests 09/2913 0606 0508 2014 1526 1115 Chemistry Sodium (137 - 145 mmol/L) 135 L Potassium (3.4 - 5.0 mmol/L) 3.7 Chloride (98 - 107 mmol/L) 99 Carbon Dioxide (22 - 30 mmol/L) 27 BUN (9 - 20 mg/dL) 5 L Creatinine (0.7 - 1.3 mg/dL) 0.5 L Glomerular Filtr Rate (>60) 174 Glucose (74 - 106 mg/dL) 158 H POC Glucose (74 - 106 MG/DL) 238 H 158 H 157 H 212 H Calcium (8.4 - 10.2 mg/dL) 7.7 L Total Bilirubin (0.2 - 1.3 mg/dL) 2.0 H Conjugated Bilirubin (0 - 0.3 mg/dL) 0 Unconjugated Bilirubin (0 - 1.1 mg/dL) 1.0 AST (15 - 46 U/L) 45 ALT (13 - 69 U/L) 33 Total Alk Phosphatase (38 - 126 U/L) 202 H Total Protein (6.3 - 8.2 g/dL) 6.1 L Albumin (3.5 - 5.0 g/dL) 2.8 L Laboratory Tests 09/29 0508 Hematology WBC (5.0 - 12.0 x10 3/uL) 10.3 RBC (4.70 - 6.10 x10 6/uL) 3.57 L Hgb (14.0 - 18.0 g/dL) 10.9 L Hct (37.0 - 49.0 %) 32.4 L MCV (80 - 94 fL) 91 MCH (27 - 31 pg) 30.5 MCHC (33 - 37 g/dL) 33.6 RDW (11.5 - 15.5 %) 12.6 Plt Count (130 - 400 x10 3/uL) 227 MPV (9.4 - 16.4 fL) 10.0 Neut % (Auto) (43 - 65 %) 81.3 H Lymph % (Auto) (20.5 - 45.5 %) 9.8 L [place] % (Auto) (5.5 - 11.7 %) 7.0 Eos % (Auto) (0.9 - 2.9 %) 0.8 L Baso % (Auto) (0.2 - 1.0 %) 0.5 Neut # (Auto) (2.2 - 4.8 x10 3/uL) 8.42 H Lymph # (Auto) (1.3 - 2.9 x10 3/uL) 1.01 L [place] # (Auto) (0.3 - 0.8 x10 3/uL) 0.72 Eos # (Auto) (0.0 - 0.2 x10 3/uL) 0.08 Baso # (Auto) (0.0 - 0.1 x10 3/uL) 0.05 Immature Gran % (0.0 - 2.0 %) 0.6 Nucleated RBC % (0 - 1.0 %) 0.0 Results: labs reviewed, vital signs stable, current med profile rev'd Diagnosis, Assessment Plan Free Text DxA P Notes Free text DxA P notes: 69yo M admitted for management of cholecystitis. #Cholecystitis: VARUN s/p lap mag(09/24) -continue management per general surgery consult service -CT abd/pelv 09/27 with post op changes, no discrete defined fluid collection -CTA chest with no evidence of pulmonary embolism -drain removed by GS, pt to f/u with GS in clinic 10/08/19 #Elevated LFTs -monitor trend #Hypokalemia -replaced #T2DM: hyperglycemic; A1c 9.5 -continues on metformin, continue PRN SSI #HTN: stable off ARB -continue supportive care #Obesity: BMI > 30 -ensure low salt DM diet < 2000 kcal #HLD: ASCVD > 7.5% -consider statin initiation prior to DC, pending improvement in LFTs #Fever, leukocytosis -CXR with atelectasis and patchy bilateral consolidation, continue nebs, IS use, ambulate -PCT level was normal -ID recs continue zosyn and diflucan x 7 days -this morning WBC down to normal #OT recs home w/fam and HH, will consult CM #Dispo: Continue IV ABTs per ID recs. PT/OT to continue to mobilize. Plans to dc to home with son and PT/OT stair training patient this afternoon as will have steps to enter son's home. Attestations Attestation needed: supervising physician at 1420 RPT #:[id number] END OF REPORT [facility] 2019-09-30 08:29:00 [facility] REPORT#:[id number] REPORT STATUS: Signed DATE:09/30/19 TIME: 828 PATIENT: SEYMOUR SNOW UNIT #: [id number] ROOM/BED: [address] : [birth year] AGE: 69 SEX: M ATTEND: Lizzy Duke MD ADM AUTHOR: Soto Hudson BALL WARPER TENDER * ALL edits or amendments must be made on the electronic/computer document * Subjective Chief Complaint: fatigue abdominal pain Review of Systems Constitutional: Reports: fatigue, generalized weakness. Denies: chills, fever. Skin: Denies: abrasion, bruising. Allergy/Immun: Denies: allergic reaction, anaphylaxis. Eyes: Denies: redness, discharge. ENT: Denies: sore throat. Respiratory: Reports: PRITCHARD (dyspnea on exertion). Denies: non productive cough, SOB, wheezing. Cardiovascular: Denies: chest pain, edema. GI: Reports: abdominal pain. Denies: constipation, diarrhea, nausea, vomiting. : Denies: dysuria, flank pain. Musculoskeletal: Denies: arthritis, extremity pain. Neuro: Denies: dizziness, headache. Psych: Denies: agitation, anxiety. Objective General VS/I O: Vital Signs: Date Time Temp Pulse Resp B/P B/P Pulse O2 O2 Flow FiO2 Mean Ox Delivery Rate 09/29 0717 37.0 98 14 115/76 88.6 91 Room air 09/29 0333 37.2 80 20 162/75 104.0 91 Room air 09/29 0019 36.9 83 20 134/75 94.7 92 Room air 09/29 0006 92 Room air 09/28 2011 36.8 80 20 145/78 100.0 92 Room air 09/28 1528 37.3 78 16 145/75 98.0 90 Room air 09/28 1117 36.7 78 16 111/71 84.3 89 Room air 24 hour I O ending at 0700: 09/29 0700 09/28 1900 Intake Total Output Total 600 Balance -600 Output, Urine 600 Patient 108.862 kg Weight Patient Weight Weight (lb): 240 Weight (oz): 8.07 Weight (kg): 108.862 Medications: Active Meds + DC'd Last 24 Hrs Bisacodyl 10 MG DAILY PRN PRN PO Polyethylene Glycol 1 PKT DAILY PO (CKD) Potassium Chloride 20 MEQ ONCE ONE PO (DC) Piperacillin Sod/Tazobactam Sod 3.375 GM Q8HR IV Sodium Chloride 100 ML Fluconazole 200 MG DAILY@1600 PO Metformin HCl 500 MG C BK DIN PO (r) Sodium Chloride 1,000 ML .Q20H IV Enoxaparin Sodium 30 MG 0400,1600 SUBQ Oxycodone HCl 5 MG Q6H PRN PRN PO Acetaminophen 975 MG Q8HR PO Methocarbamol 500 MG BID PO Hydromorphone HCl 0.5 MG Q4H PRN PRN IV Losartan Potassium 50 MG BID PO Pneumococcal 13-Valent Conj Vacc 0.5 ML ASDIR IM Dextrose/Water 25 ML ASDIR PRN IV Insulin Human Lispro LOW DOSE SCALE ASDIR SUBQ Morphine Sulfate 2 MG Q4H PRN PRN IV Ondansetron HCl 4 MG Q4H PRN PRN IV Physical Exam General appearance: obese, alert, awake, oriented, no acute distress Head/Eyes: normal conjunctiva/sclera ENT: moist mucosal membranes Neck: full range of motion, non-tender, no JVD Cardiovascular: regular rate rhythm Respiratory: aerating well, no distress Abdomen: obese, tenderness, no distention, abdominal dressing in place, drain to R quad Genitourinary: no bladder distention Extremities: no clubbing, no cyanosis, no edema Musculoskeletal: normal inspection Neuro/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: alert, oriented X 3, normal speech Skin: abdominal incisions to abdomen with dressings in place Psychiatry: normal affect, normal judgment/insight, normal mood Results Findings/Data: Laboratory Tests 09/29 1526 1115 Chemistry Sodium (137 - 145 mmol/L) 135 L Potassium (3.4 - 5.0 mmol/L) 3.7 Chloride (98 - 107 mmol/L) 99 Carbon Dioxide (22 - 30 mmol/L) 27 BUN (9 - 20 mg/dL) 5 L Creatinine (0.7 - 1.3 mg/dL) 0.5 L Glomerular Filtr Rate (>60) 174 Glucose (74 - 106 mg/dL) 158 H POC Glucose (74 - 106 MG/DL) 238 H 158 H 157 H 212 H Calcium (8.4 - 10.2 mg/dL) 7.7 L Total Bilirubin (0.2 - 1.3 mg/dL) 2.0 H Conjugated Bilirubin (0 - 0.3 mg/dL) 0 Unconjugated Bilirubin (0 - 1.1 mg/dL) 1.0 AST (15 - 46 U/L) 45 ALT (13 - 69 U/L) 33 Total Alk Phosphatase (38 - 126 U/L) 202 H Total Protein (6.3 - 8.2 g/dL) 6.1 L Albumin (3.5 - 5.0 g/dL) 2.8 L Laboratory Tests 09/29 0508 Hematology WBC (5.0 - 12.0 x10 3/uL) 10.3 RBC (4.70 - 6.10 x10 6/uL) 3.57 L Hgb (14.0 - 18.0 g/dL) 10.9 L Hct (37.0 - 49.0 %) 32.4 L MCV (80 - 94 fL) 91 MCH (27 - 31 pg) 30.5 MCHC (33 - 37 g/dL) 33.6 RDW (11.5 - 15.5 %) 12.6 Plt Count (130 - 400 x10 3/uL) 227 MPV (9.4 - 16.4 fL) 10.0 Neut % (Auto) (43 - 65 %) 81.3 H Lymph % (Auto) (20.5 - 45.5 %) 9.8 L [place] % (Auto) (5.5 - 11.7 %) 7.0 Eos % (Auto) (0.9 - 2.9 %) 0.8 L Baso % (Auto) (0.2 - 1.0 %) 0.5 Neut # (Auto) (2.2 - 4.8 x10 3/uL) 8.42 H Lymph # (Auto) (1.3 - 2.9 x10 3/uL) 1.01 L [place] # (Auto) (0.3 - 0.8 x10 3/uL) 0.72 Eos # (Auto) (0.0 - 0.2 x10 3/uL) 0.08 Baso # (Auto) (0.0 - 0.1 x10 3/uL) 0.05 Immature Gran % (0.0 - 2.0 %) 0.6 Nucleated RBC % (0 - 1.0 %) 0.0 Results: labs reviewed, vital signs stable, current med profile rev'd Diagnosis, Assessment Plan Free Text DxA P Notes Free text DxA P notes: 69yo M admitted for management of cholecystitis. #Cholecystitis: VARUN s/p lap mag(09/24) -continue management per general surgery consult service -CT abd/pelv 09/27 with post op changes, no discrete defined fluid collection -CTA chest with no evidence of pulmonary embolism -drain removed by GS, pt to f/u with GS in clinic 10/08/19 #Elevated LFTs -monitor trend #Hypokalemia -replaced #T2DM: hyperglycemic; A1c 9.5 -continues on metformin, continue PRN SSI #HTN: stable off ARB -continue supportive care #Obesity: BMI > 30 -ensure low salt DM diet < 2000 kcal #HLD: ASCVD > 7.5% -consider statin initiation prior to DC, pending improvement in LFTs #Fever, leukocytosis -CXR with atelectasis and patchy bilateral consolidation, continue nebs, IS use, ambulate -PCT level was normal -ID recs continue zosyn and diflucan x 7 days -this morning WBC down to normal #OT recs home w/fam and HH, will consult CM #Dispo: Continue IV ABTs per ID recs. PT/OT to continue to mobilize. Plans to dc to home with son and PT/OT stair training patient this afternoon as will have steps to enter son's home. Attestations Attestation needed: supervising physician at 1429 at 1353 RPT #:[id number] END OF REPORT [facility] 2019-09-29 14:48:00 ([facility]) Infectious Dis. Progress Note REPORT#:[id number] REPORT STATUS: Signed DATE:09/29/19 TIME: 1448 PATIENT: SEYMOUR SNOW UNIT #: [id number] [address] AGE: 69 SEX: M ATTEND: Lizzy Duke MD ADM AUTHOR: Martín Denis DO * ALL edits or amendments must be made on the electronic/computer document * Subjective HPI: patient resting in bed Objective General VS/I O: Last Documented: Result Date Time Pulse Ox 89 09/28 1117 B/P 111/71 09/28 1117 B/P Mean 84.3 09/28 1117 O2 Delivery Room air 09/28 1117 Temp 36.7 09/28 1117 Pulse 78 09/28 1117 Resp 16 09/28 1117 O2 Flow Rate 2.186065 09/27 1608 FiO2 21 09/27 1245 Vital Signs Date Temp Pulse Resp B/P B/P Mean Pulse Ox FiO2 09/27-09/28 36.6-37.0 68-84 16-17 106-130/65-75 78.5-93.1 89-95 24 hour I O ending at 0700: 09/28 0700 09/27 1900 Intake Total Output Total 35 Balance -35 Number 2 Bowel Movements Number Voids 4 Output, 35 Drainage Patient Weight Weight (lb): 240 Weight (oz): 8.07 Weight (kg): 109.091 Physical Exam General appearance: chronically ill appearing Head/Eyes: atraumatic, clear cornea Neck: full range of motion, non-tender Cardiovascular: normal heart sounds Respiratory: clear to auscultation, aerating well Abdomen: soft Extremities: moves all Diagnosis, Assessment Plan Free Text A P: acute mag - s/p surgery - cont zosyn / diflucan - ct neg for abscess - 7 days leukocytosis - likely from above - improved recs zosyn/diflucan 7 days at 1449 RPT #:[id number] END OF REPORT [facility] 2019-09-29 11:26:00 [facility] General Surgery Progress Note REPORT#:[id number] REPORT STATUS: Signed DATE:09/29/19 TIME: 112 PATIENT: SEYMOUR SNOW UNIT #: [id number] ROOM/BED: [address] : 48 AGE: 69 SEX: M ATTEND: Lizzy Duke MD ADM AUTHOR: Rickey Glover MD R1 * ALL edits or amendments must be made on the electronic/computer document * General Date of surgery: 09/25/19 Status post: Laparoscopic, converted to open cholecystectomy with drain placement Subjective Comments: Patient reports having a BM yesterday night. Reports eating a little of his diet but tolerating without nausea nor vomiting. Reports the dressings were changed at his surgical site but that he still has abdominal discomfort at surgical site with moving. Denies any new pain. Non-bilious sero-sanguinous fluid noted. ROS negative unless noted in above HPI of the following systems: constitutional, eyes, HENT, neck, neuro, CV, resp, GI, , msk, skin Objective General VS/I O: Last Documented: Result Date Time Pulse Ox 89 09/28 1117 B/P 111/71 09/28 1117 B/P Mean 84.3 09/28 1117 O2 Delivery Room air 09/28 1117 Temp 36.7 09/28 1117 Pulse 78 09/28 1117 Resp 16 09/28 1117 O2 Flow Rate 2.965642 09/27 1608 FiO2 21 09/27 1245 Vital Signs Date Temp Pulse Resp B/P B/P Mean Pulse Ox FiO2 09/27-09/28 36.6-37.4 68-84 16-17 106-130/65-75 78.5-93.1 89-95 21 24 hour I O ending at 0700: 09/28 0700 09/27 1900 Intake Total Output Total 35 Balance -35 Number 2 Bowel Movements Number Voids 4 Output, 35 Drainage Patient Weight Weight (lb): 240 Weight (oz): 8.07 Weight (kg): 109.091 Medications: Active Meds + DC'd Last 24 Hrs Bisacodyl 10 MG DAILY PRN PRN PO (UNV) Polyethylene Glycol 1 PKT DAILY PO (CKD) Potassium Chloride 20 MEQ ONCE ONE PO (DC) Piperacillin Sod/Tazobactam Sod 3.375 GM Q8HR IV Sodium Chloride 100 ML Fluconazole 200 MG DAILY@1600 PO Metformin HCl 500 MG C BK DIN PO (DA) Sodium Chloride 1,000 ML .Q20H IV Enoxaparin Sodium 30 MG 0400,1600 SUBQ Oxycodone HCl 5 MG Q6H PRN PRN PO Piperacillin Sod/Tazobactam Sod 3.375 GM Q8H IV (DC) Sodium Chloride 100 ML Acetaminophen 975 MG Q8HR PO Methocarbamol 500 MG BID PO Hydromorphone HCl 0.5 MG Q4H PRN PRN IV Losartan Potassium 50 MG BID PO Pneumococcal 13-Valent Conj Vacc 0.5 ML ASDIR IM Dextrose/Water 25 ML ASDIR PRN IV Insulin Human Lispro LOW DOSE SCALE ASDIR SUBQ Morphine Sulfate 2 MG Q4H PRN PRN IV Ondansetron HCl 4 MG Q4H PRN PRN IV Nutrtion assessment: The data set between the solid lines has been imported from the dietitian's assessment. Any exceptions have been noted under Provider comments. BMI Calculated: 30.9 Nutrition related diagnosis: Nutrition diagnosis details: Nutrition problem: Nutrition etiology: Nutrition signs and symptoms: Nutrition prescription: Dietitian name: Assessment completed: Provider comments on imported dietitian assessment: Physical Exam General appearance: alert, awake, oriented Wound/incision: Location: RUQ, umbilicus Site condition: dressing intact (new dressing applied), edges approximated, Drain- serosanguinous fluid, no bilious fluid HEENT: anicteric, atraumatic, moist mucosal membranes Neck: full range of motion, non-tender, no masses or swelling Cardiovascular: normal capillary refill, normal heart sounds, normal S1/S2 Respiratory: clear to auscultation, equal breath sounds, symmetric expansion Abdomen: tenderness (at surgical site), soft, no distention, Dressings are clean and dry at the umbilicus and RUQ Drain present in RUQ- serosanguinous Extremities: moves all, normal capillary refill, normal temperature Neuro/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: alert, oriented x 3, normal speech Skin: dry, intact, normal color Psychiatry: normal affect, normal judgment/insight, normal mood Results Findings/Data: Laboratory Tests 09/29/19445: [Embedded Image Not Available] Laboratory Tests 09/2856 6 1957 1613 1137 Chemistry Sodium (137 - 145 mmol/L) 134 L Potassium (3.4 - 5.0 mmol/L) 3.2 L Chloride (98 - 107 mmol/L) 101 Carbon Dioxide (22 - 30 mmol/L) 26 BUN (9 - 20 mg/dL) 7 L Creatinine (0.7 - 1.3 mg/dL) 0.5 L Glomerular Filtr Rate (>60) 174 Glucose (74 - 106 mg/dL) 140 H POC Glucose (74 - 106 MG/DL) 148 H 185 H 190 H 161 H Calcium (8.4 - 10.2 mg/dL) 7.3 L Total Bilirubin (0.2 - 1.3 mg/dL) 1.8 H Conjugated Bilirubin (0 - 0.3 mg/dL) 0 Unconjugated Bilirubin (0 - 1.1 mg/dL) 1.0 AST (15 - 46 U/L) 37 ALT (13 - 69 U/L) 48 Total Alk Phosphatase (38 - 126 U/L) 164 H Total Protein (6.3 - 8.2 g/dL) 5.3 L Albumin (3.5 - 5.0 g/dL) 2.5 L Laboratory Tests 09/28 445 Hematology WBC (5.0 - 12.0 x10 3/uL) 12.3 H RBC (4.70 - 6.10 x10 6/uL) 3.27 L Hgb (14.0 - 18.0 g/dL) 10.1 L Hct (37.0 - 49.0 %) 30.5 L MCV (80 - 94 fL) 93 MCH (27 - 31 pg) 30.9 MCHC (33 - 37 g/dL) 33.1 RDW (11.5 - 15.5 %) 12.8 Plt Count (130 - 400 x10 3/uL) 213 MPV (9.4 - 16.4 fL) 10.0 Neut % (Auto) (43 - 65 %) 80.8 H Lymph % (Auto) (20.5 - 45.5 %) 11.0 L [place] % (Auto) (5.5 - 11.7 %) 5.5 Eos % (Auto) (0.9 - 2.9 %) 1.8 Baso % (Auto) (0.2 - 1.0 %) 0.3 Neut # (Auto) (2.2 - 4.8 x10 3/uL) 9.95 H Lymph # (Auto) (1.3 - 2.9 x10 3/uL) 1.36 [place] # (Auto) (0.3 - 0.8 x10 3/uL) 0.68 Eos # (Auto) (0.0 - 0.2 x10 3/uL) 0.22 H Baso # (Auto) (0.0 - 0.1 x10 3/uL) 0.04 Immature Gran % (0.0 - 2.0 %) 0.6 Nucleated RBC % (0 - 1.0 %) 0.0 Radiology data: Recent Impressions: RADIOLOGY - XR CHEST 1 V 09/27 1134 Report Impression - Status: SIGNED Entered: 09/28/2019 1145 IMPRESSION: 1. Patchy perihilar and basilar opacities compatible with areas of atelectasis and patchy bilateral consolidation. Impression By: [email or web address] - Adolfo Bone MD Results: All labs and results reviewed by attending physician Diagnosis, Assessment Plan Free Text A P: ASSESSMENT: 69 y/o GANDHI POD 4 s/p laparsocopic, converted to open cholecystectomy. Reports having a BM last night. Tolerating regular diet without nausea nor vomiting. WBC noted to have decreased significantly compared to yesterday. No further surgical intervention planned, will sign off patient care for now. Follow up as outpatient 10/08/19. Injuries/Acute Problems: -Cholecystitis Chronic Medical Problems/Comorbidities: -HTN -DM PLAN: Per ID recs, patient started on Diflucan and Zosyn, WBC noted to have decreased 20 to 12 compared to yesterday. Multimodel pain control Will pull drains out today. Patient advised to begin low-fat diet, advance to regular as tolerated Will order Ensure nutrition supplement due to patient low appetitie OOB, regular ambulation Find incentive spirometer- IS usage- 10 /hr Will sign off patient care today- will have patient follow up in clinic on L/D/A: PIV DVT prophylaxis: SCDs Lovenox GI prophylaxis: not indicated Diet: Regular diet Activity: OOB, ambulation, as tolerated Dispo: sign off today, continue as medicine. See in outaptient clinic on 10/08/19 Code Status: FULL Attestations Attestation needed: teaching physician at 1141 RPT #:[id number] END OF REPORT [facility] 2019-09-29 11:26:00 [facility] General Surgery Progress Note REPORT#:[id number] REPORT STATUS: Signed DATE:09/29/19 TIME: 1125 PATIENT: SEYMOUR SNOW UNIT #: [id number] ROOM/BED: [address] : 48 AGE: 69 SEX: M ATTEND: Lizzy Duke MD ADM AUTHOR: Rickey Glover MD R1 * ALL edits or amendments must be made on the electronic/computer document * Rickey Glover 09/29/19 1126: General Date of surgery: 09/25/19 Status post: Laparoscopic, converted to open cholecystectomy with drain placement Subjective Comments: Patient reports having a BM yesterday night. Reports eating a little of his diet but tolerating without nausea nor vomiting. Reports the dressings were changed at his surgical site but that he still has abdominal discomfort at surgical site with moving. Denies any new pain. Non-bilious sero-sanguinous fluid noted. ROS negative unless noted in above HPI of the following systems: constitutional, eyes, HENT, neck, neuro, CV, resp, GI, , msk, skin Objective General VS/I O: Last Documented: Result Date Time Pulse Ox 89 09/28 1117 B/P 111/71 09/28 1117 B/P Mean 84.3 09/28 1117 O2 Delivery Room air 09/28 111 Temp 36.7 09/28 1117 Pulse 78 09/28 1117 Resp 16 09/28 1117 O2 Flow Rate 2.249043 09/27 1608 FiO2 21 09/27 1245 Vital Signs Date Temp Pulse Resp B/P B/P Mean Pulse Ox FiO2 09/27-09/28 36.6-37.4 68-84 16-17 106-130/65-75 78.5-93.1 89-95 21 24 hour I O ending at 0700: 09/28 0700 09/27 1900 Intake Total Output Total 35 Balance -35 Number 2 Bowel Movements Number Voids 4 Output, 35 Drainage Patient Weight Weight (lb): 240 Weight (oz): 8.07 Weight (kg): 109.091 Medications: Active Meds + DC'd Last 24 Hrs Bisacodyl 10 MG DAILY PRN PRN PO (UNV) Polyethylene Glycol 1 PKT DAILY PO (CKD) Potassium Chloride 20 MEQ ONCE ONE PO (DC) Piperacillin Sod/Tazobactam Sod 3.375 GM Q8HR IV Sodium Chloride 100 ML Fluconazole 200 MG DAILY@1600 PO Metformin HCl 500 MG C BK DIN PO (DA) Sodium Chloride 1,000 ML .Q20H IV Enoxaparin Sodium 30 MG 0400,1600 SUBQ Oxycodone HCl 5 MG Q6H PRN PRN PO Piperacillin Sod/Tazobactam Sod 3.375 GM Q8H IV (DC) Sodium Chloride 100 ML Acetaminophen 975 MG Q8HR PO Methocarbamol 500 MG BID PO Hydromorphone HCl 0.5 MG Q4H PRN PRN IV Losartan Potassium 50 MG BID PO Pneumococcal 13-Valent Conj Vacc 0.5 ML ASDIR IM Dextrose/Water 25 ML ASDIR PRN IV Insulin Human Lispro LOW DOSE SCALE ASDIR SUBQ Morphine Sulfate 2 MG Q4H PRN PRN IV Ondansetron HCl 4 MG Q4H PRN PRN IV Nutrtion assessment: The data set between the solid lines has been imported from the dietitian's assessment. Any exceptions have been noted under Provider comments. BMI Calculated: 30.9 Nutrition related diagnosis: Nutrition diagnosis details: Nutrition problem: Nutrition etiology: Nutrition signs and symptoms: Nutrition prescription: Dietitian name: Assessment completed: Provider comments on imported dietitian assessment: Physical Exam General appearance: alert, awake, oriented Wound/incision: Location: RUQ, umbilicus Site condition: dressing intact (new dressing applied), edges approximated, Drain- serosanguinous fluid, no bilious fluid HEENT: anicteric, atraumatic, moist mucosal membranes Neck: full range of motion, non-tender, no masses or swelling Cardiovascular: normal capillary refill, normal heart sounds, normal S1/S2 Respiratory: clear to auscultation, equal breath sounds, symmetric expansion Abdomen: tenderness (at surgical site), soft, no distention, Dressings are clean and dry at the umbilicus and RUQ Drain present in RUQ- serosanguinous Extremities: moves all, normal capillary refill, normal temperature Neuro/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: alert, oriented x 3, normal speech Skin: dry, intact, normal color Psychiatry: normal affect, normal judgment/insight, normal mood Results Findings/Data: Laboratory Tests 09/29/19 0446: [Embedded Image Not Available] Laboratory Tests 09/28 09/28 09/27 09/27 09/27 0556 0446 1958 1613 1137 Chemistry Sodium (137 - 145 mmol/L) 134 L Potassium (3.4 - 5.0 mmol/L) 3.2 L Chloride (98 - 107 mmol/L) 101 Carbon Dioxide (22 - 30 mmol/L) 26 BUN (9 - 20 mg/dL) 7 L Creatinine (0.7 - 1.3 mg/dL) 0.5 L Glomerular Filtr Rate (>60) 174 Glucose (74 - 106 mg/dL) 140 H POC Glucose (74 - 106 MG/DL) 148 H 185 H 190 H 161 H Calcium (8.4 - 10.2 mg/dL) 7.3 L Total Bilirubin (0.2 - 1.3 mg/dL) 1.8 H Conjugated Bilirubin (0 - 0.3 mg/dL) 0 Unconjugated Bilirubin (0 - 1.1 mg/dL) 1.0 AST (15 - 46 U/L) 37 ALT (13 - 69 U/L) 48 Total Alk Phosphatase (38 - 126 U/L) 164 H Total Protein (6.3 - 8.2 g/dL) 5.3 L Albumin (3.5 - 5.0 g/dL) 2.5 L Laboratory Tests 09/28 0446 Hematology WBC (5.0 - 12.0 x10 3/uL) 12.3 H RBC (4.70 - 6.10 x10 6/uL) 3.27 L Hgb (14.0 - 18.0 g/dL) 10.1 L Hct (37.0 - 49.0 %) 30.5 L MCV (80 - 94 fL) 93 MCH (27 - 31 pg) 30.9 MCHC (33 - 37 g/dL) 33.1 RDW (11.5 - 15.5 %) 12.8 Plt Count (130 - 400 x10 3/uL) 213 MPV (9.4 - 16.4 fL) 10.0 Neut % (Auto) (43 - 65 %) 80.8 H Lymph % (Auto) (20.5 - 45.5 %) 11.0 L [place] % (Auto) (5.5 - 11.7 %) 5.5 Eos % (Auto) (0.9 - 2.9 %) 1.8 Baso % (Auto) (0.2 - 1.0 %) 0.3 Neut # (Auto) (2.2 - 4.8 x10 3/uL) 9.95 H Lymph # (Auto) (1.3 - 2.9 x10 3/uL) 1.36 [place] # (Auto) (0.3 - 0.8 x10 3/uL) 0.68 Eos # (Auto) (0.0 - 0.2 x10 3/uL) 0.22 H Baso # (Auto) (0.0 - 0.1 x10 3/uL) 0.04 Immature Gran % (0.0 - 2.0 %) 0.6 Nucleated RBC % (0 - 1.0 %) 0.0 Radiology data: Recent Impressions: RADIOLOGY - XR CHEST 1 V 09/27 1134 Report Impression - Status: SIGNED Entered: 09/28/2019 1145 IMPRESSION: 1. Patchy perihilar and basilar opacities compatible with areas of atelectasis and patchy bilateral consolidation. Impression By: [email or web address] - Adolfo Bone MD Results: All labs and results reviewed by attending physician Diagnosis, Assessment Plan Free Text A P: ASSESSMENT: 69 y/o GANDHI POD 4 s/p laparsocopic, converted to open cholecystectomy. Reports having a BM last night. Tolerating regular diet without nausea nor vomiting. WBC noted to have decreased significantly compared to yesterday. No further surgical intervention planned, will sign off patient care for now. Follow up as outpatient 10/08/19. Injuries/Acute Problems: -Cholecystitis Chronic Medical Problems/Comorbidities: -HTN -DM PLAN: Per ID recs, patient started on Diflucan and Zosyn, WBC noted to have decreased 20 to 12 compared to yesterday. Multimodel pain control Will pull drains out today. Patient advised to begin low-fat diet, advance to regular as tolerated Will order Ensure nutrition supplement due to patient low appetitie OOB, regular ambulation Find incentive spirometer- IS usage- 10 /hr Will sign off patient care today- will have patient follow up in clinic on L/D/A: PIV DVT prophylaxis: SCDs Lovenox GI prophylaxis: not indicated Diet: Regular diet Activity: OOB, ambulation, as tolerated Dispo: sign off today, continue as medicine. See in outaptient clinic on 10/08/19 Code Status: FULL Attestations Attestation needed: teaching physician Judith Mccoy 09/29/19 2889: Attestations Teaching Physician Attestation F/U visit w/ resident: I saw the patient with the resident and . . . agree with the resident's findings and plan. CC- incisional pain Pt is tolerating diet and passing flatus. Had BM yesterday. Wounds are CDI. CATHRYN drain with serous drainage. WBC is downtrending. Will pull CATHRYN drain today and sign off Pt can return to clinic in 2 weeks for staple removal at 1148 RPT #:[id number] END OF REPORT [facility] 2019-09-29 11:26:00 [facility]) General Surgery Progress Note REPORT#:[id number] REPORT STATUS: Signed DATE:09/29/19 TIME: 112 PATIENT: SEYMOUR SNOW UNIT #: [id number] [place] [facility] [place] AGE: 69 SEX: M ATTEND: Lizzy Duke MD ADM AUTHOR: Rickey Glover MD R1 * ALL edits or amendments must be made on the electronic/computer document * Rickey Glover 09/29/19 1126: General Date of surgery: 09/25/19 Status post: Laparoscopic, converted to open cholecystectomy with drain placement Subjective Comments: Patient reports having a BM yesterday night. Reports eating a little of his diet but tolerating without nausea nor vomiting. Reports the dressings were changed at his surgical site but that he still has abdominal discomfort at surgical site with moving. Denies any new pain. Non-bilious sero-sanguinous fluid noted. ROS negative unless noted in above HPI of the following systems: constitutional, eyes, HENT, neck, neuro, CV, resp, GI, , msk, skin Objective General VS/I O: Last Documented: Result Date Time Pulse Ox 89 09/28 1117 B/P 111/71 09/28 1117 B/P Mean 84.3 09/28 1117 O2 Delivery Room air 09/28 1117 Temp 36.7 09/28 1117 Pulse 78 09/28 1117 Resp 16 09/28 1117 O2 Flow Rate 2.016385 09/27 1608 FiO2 21 09/27 1245 Vital Signs Date Temp Pulse Resp B/P B/P Mean Pulse Ox FiO2 09/27-09/28 36.6-37.4 68-84 16-17 106-130/65-75 78.5-93.1 89-95 21 24 hour I O ending at 0700: 09/28 0700 09/27 1900 Intake Total Output Total 35 Balance -35 Number 2 Bowel Movements Number Voids 4 Output, 35 Drainage Patient Weight Weight (lb): 240 Weight (oz): 8.07 Weight (kg): 109.091 Medications: Active Meds + DC'd Last 24 Hrs Bisacodyl 10 MG DAILY PRN PRN PO (UNV) Polyethylene Glycol 1 PKT DAILY PO (CKD) Potassium Chloride 20 MEQ ONCE ONE PO (DC) Piperacillin Sod/Tazobactam Sod 3.375 GM Q8HR IV Sodium Chloride 100 ML Fluconazole 200 MG DAILY@1600 PO Metformin HCl 500 MG C BK DIN PO (DA) Sodium Chloride 1,000 ML .Q20H IV Enoxaparin Sodium 30 MG 0400,1600 SUBQ Oxycodone HCl 5 MG Q6H PRN PRN PO Piperacillin Sod/Tazobactam Sod 3.375 GM Q8H IV (DC) Sodium Chloride 100 ML Acetaminophen 975 MG Q8HR PO Methocarbamol 500 MG BID PO Hydromorphone HCl 0.5 MG Q4H PRN PRN IV Losartan Potassium 50 MG BID PO Pneumococcal 13-Valent Conj Vacc 0.5 ML ASDIR IM Dextrose/Water 25 ML ASDIR PRN IV Insulin Human Lispro LOW DOSE SCALE ASDIR SUBQ Morphine Sulfate 2 MG Q4H PRN PRN IV Ondansetron HCl 4 MG Q4H PRN PRN IV Nutrtion assessment: The data set between the solid lines has been imported from the dietitian's assessment. Any exceptions have been noted under Provider comments. BMI Calculated: 30.9 Nutrition related diagnosis: Nutrition diagnosis details: Nutrition problem: Nutrition etiology: Nutrition signs and symptoms: Nutrition prescription: Dietitian name: Assessment completed: Provider comments on imported dietitian assessment: Physical Exam General appearance: alert, awake, oriented Wound/incision: Location: RUQ, umbilicus Site condition: dressing intact (new dressing applied), edges approximated, Drain- serosanguinous fluid, no bilious fluid HEENT: anicteric, atraumatic, moist mucosal membranes Neck: full range of motion, non-tender, no masses or swelling Cardiovascular: normal capillary refill, normal heart sounds, normal S1/S2 Respiratory: clear to auscultation, equal breath sounds, symmetric expansion Abdomen: tenderness (at surgical site), soft, no distention, Dressings are clean and dry at the umbilicus and RUQ Drain present in RUQ- serosanguinous Extremities: moves all, normal capillary refill, normal temperature Neuro/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: alert, oriented x 3, normal speech Skin: dry, intact, normal color Psychiatry: normal affect, normal judgment/insight, normal mood Results Findings/Data: Laboratory Tests 09/29/19445: [Embedded Image Not Available] Laboratory Tests 09/2856 6 8 1613 1137 Chemistry Sodium (137 - 145 mmol/L) 134 L Potassium (3.4 - 5.0 mmol/L) 3.2 L Chloride (98 - 107 mmol/L) 101 Carbon Dioxide (22 - 30 mmol/L) 26 BUN (9 - 20 mg/dL) 7 L Creatinine (0.7 - 1.3 mg/dL) 0.5 L Glomerular Filtr Rate (>60) 174 Glucose (74 - 106 mg/dL) 140 H POC Glucose (74 - 106 MG/DL) 148 H 185 H 190 H 161 H Calcium (8.4 - 10.2 mg/dL) 7.3 L Total Bilirubin (0.2 - 1.3 mg/dL) 1.8 H Conjugated Bilirubin (0 - 0.3 mg/dL) 0 Unconjugated Bilirubin (0 - 1.1 mg/dL) 1.0 AST (15 - 46 U/L) 37 ALT (13 - 69 U/L) 48 Total Alk Phosphatase (38 - 126 U/L) 164 H Total Protein (6.3 - 8.2 g/dL) 5.3 L Albumin (3.5 - 5.0 g/dL) 2.5 L Laboratory Tests 09/28 445 Hematology WBC (5.0 - 12.0 x10 3/uL) 12.3 H RBC (4.70 - 6.10 x10 6/uL) 3.27 L Hgb (14.0 - 18.0 g/dL) 10.1 L Hct (37.0 - 49.0 %) 30.5 L MCV (80 - 94 fL) 93 MCH (27 - 31 pg) 30.9 MCHC (33 - 37 g/dL) 33.1 RDW (11.5 - 15.5 %) 12.8 Plt Count (130 - 400 x10 3/uL) 213 MPV (9.4 - 16.4 fL) 10.0 Neut % (Auto) (43 - 65 %) 80.8 H Lymph % (Auto) (20.5 - 45.5 %) 11.0 L [place] % (Auto) (5.5 - 11.7 %) 5.5 Eos % (Auto) (0.9 - 2.9 %) 1.8 Baso % (Auto) (0.2 - 1.0 %) 0.3 Neut # (Auto) (2.2 - 4.8 x10 3/uL) 9.95 H Lymph # (Auto) (1.3 - 2.9 x10 3/uL) 1.36 [place] # (Auto) (0.3 - 0.8 x10 3/uL) 0.68 Eos # (Auto) (0.0 - 0.2 x10 3/uL) 0.22 H Baso # (Auto) (0.0 - 0.1 x10 3/uL) 0.04 Immature Gran % (0.0 - 2.0 %) 0.6 Nucleated RBC % (0 - 1.0 %) 0.0 Radiology data: Recent Impressions: RADIOLOGY - XR CHEST 1 V 09/27 1134 Report Impression - Status: SIGNED Entered: 09/28/2019 1145 IMPRESSION: 1. Patchy perihilar and basilar opacities compatible with areas of atelectasis and patchy bilateral consolidation. Impression By: [email or web address] - Adolfo Bone MD Results: All labs and results reviewed by attending physician Diagnosis, Assessment Plan Free Text A P: ASSESSMENT: 69 y/o GANDHI POD 4 s/p laparsocopic, converted to open cholecystectomy. Reports having a BM last night. Tolerating regular diet without nausea nor vomiting. WBC noted to have decreased significantly compared to yesterday. No further surgical intervention planned, will sign off patient care for now. Follow up as outpatient 10/08/19. Injuries/Acute Problems: -Cholecystitis Chronic Medical Problems/Comorbidities: -HTN -DM PLAN: Per ID recs, patient started on Diflucan and Zosyn, WBC noted to have decreased 20 to 12 compared to yesterday. Multimodel pain control Will pull drains out today. Patient advised to begin low-fat diet, advance to regular as tolerated Will order Ensure nutrition supplement due to patient low appetitie OOB, regular ambulation Find incentive spirometer- IS usage- 10 /hr Will sign off patient care today- will have patient follow up in clinic on L/D/A: PIV DVT prophylaxis: SCDs Lovenox GI prophylaxis: not indicated Diet: Regular diet Activity: OOB, ambulation, as tolerated Dispo: sign off today, continue as medicine. See in outaptient clinic on 10/08/19 Code Status: FULL Attestations Attestation needed: teaching physician Judith Mccoy 09/29/19 6629: Attestations Teaching Physician Attestation F/U visit w/ resident: I saw the patient with the resident and . . . agree with the resident's findings and plan. CC- incisional pain Pt is tolerating diet and passing flatus. Had BM yesterday. Wounds are CDI. CATHRYN drain with serous drainage. WBC is downtrending. Will pull CATHRYN drain today and sign off Pt can return to clinic in 2 weeks for staple removal at 1141 at 1756 RPT #:[id number] END OF REPORT [facility] 2019-09-29 08:21:00 [facility] REPORT#:[id number] REPORT STATUS: Signed DATE:09/29/19 TIME: 820 PATIENT: SEYMOUR SNOW UNIT #: [id number] ROOM/BED: [address] : 48 AGE: 69 SEX: M ATTEND: Lizzy Duke MD ADM AUTHOR: Soto Hudson NP * ALL edits or amendments must be made on the electronic/computer document * Subjective Chief Complaint: abdominal pain feels a bit better weakness Review of Systems Constitutional: Reports: fatigue, generalized weakness. Denies: chills, fever. Skin: Denies: abrasion, bruising. Allergy/Immun: Denies: allergic reaction, anaphylaxis. Eyes: Denies: redness, discharge. ENT: Denies: sore throat. Respiratory: Reports: PRITCHARD (dyspnea on exertion). Denies: non productive cough, SOB, wheezing. Cardiovascular: Denies: chest pain, edema. GI: Reports: abdominal pain. Denies: constipation, diarrhea, nausea, vomiting. : Denies: dysuria, flank pain. Musculoskeletal: Denies: arthritis, extremity pain. Neuro: Denies: dizziness, headache. Psych: Denies: agitation, anxiety. All systems rev neg: except as marked Objective General VS/I O: Vital Signs: Date Time Temp Pulse Resp B/P B/P Pulse O2 O2 Flow FiO2 Mean Ox Delivery Rate 09/28 0750 36.6 75 17 117/73 87.9 91 Room air 09/28 0409 36.7 75 16 130/75 93.1 92 09/27 2305 36.8 76 16 119/74 88.8 93 09/27 1957 37.0 84 16 106/65 78.5 94 09/27 1612 68 17 113/74 86.7 95 Room air 09/27 1608 Nasal 2.594685 cannula 09/27 1245 95 Room air 21 09/27 1139 37.4 84 16 116/75 88.4 95 Nasal cannula 24 hour I O ending at 0700: 09/28 0700 09/27 1900 Intake Total Output Total 35 Balance -35 Number 2 Bowel Movements Number Voids 4 Output, 35 Drainage Patient Weight Weight (lb): 240 Weight (oz): 8.07 Weight (kg): 109.091 Medications: Active Meds + DC'd Last 24 Hrs Polyethylene Glycol 1 PKT DAILY PO (CKD) Piperacillin Sod/Tazobactam Sod 3.375 GM Q8HR IV Sodium Chloride 100 ML Fluconazole 200 MG DAILY@1600 PO Diatrizoate Meglum/Diatrizoate Sod 30 ML ONCE PRN PO (DC) Iopamidol 100 ML ONCE PRN IV (DC) Sodium Chloride 50 ML ONCE PRN IV (DC) Metformin HCl 500 MG C BK DIN PO (DA) Sodium Chloride 1,000 ML .Q20H IV Enoxaparin Sodium 30 MG 0400,1600 SUBQ Oxycodone HCl 5 MG Q6H PRN PRN PO Piperacillin Sod/Tazobactam Sod 3.375 GM Q8H IV (DC) Sodium Chloride 100 ML Acetaminophen 975 MG Q8HR PO Methocarbamol 500 MG BID PO Hydromorphone HCl 0.5 MG Q4H PRN PRN IV Losartan Potassium 50 MG BID PO Pneumococcal 13-Valent Conj Vacc 0.5 ML ASDIR IM Dextrose/Water 25 ML ASDIR PRN IV Insulin Human Lispro LOW DOSE SCALE ASDIR SUBQ Morphine Sulfate 2 MG Q4H PRN PRN IV Ondansetron HCl 4 MG Q4H PRN PRN IV Physical Exam General appearance: obese, alert, awake, oriented, no acute distress Head/Eyes: normal conjunctiva/sclera ENT: moist mucosal membranes Neck: full range of motion, non-tender, no JVD Cardiovascular: regular rate rhythm Respiratory: aerating well, no distress Abdomen: obese, tenderness, no distention, abdominal dressing in place, drain to R quad Genitourinary: no bladder distention Extremities: no clubbing, no cyanosis, no edema Musculoskeletal: normal inspection Neuro/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: alert, oriented X 3, normal speech Skin: abdominal incision to abdomen with dressing in place, drain to R abd quad Psychiatry: normal affect, normal judgment/insight, normal mood Results Findings/Data: Laboratory Tests 09/28 09/28 09/27 09/27 09/27 0556 0446 1958 1613 1137 Chemistry Sodium (137 - 145 mmol/L) 134 L Potassium (3.4 - 5.0 mmol/L) 3.2 L Chloride (98 - 107 mmol/L) 101 Carbon Dioxide (22 - 30 mmol/L) 26 BUN (9 - 20 mg/dL) 7 L Creatinine (0.7 - 1.3 mg/dL) 0.5 L Glomerular Filtr Rate (>60) 174 Glucose (74 - 106 mg/dL) 140 H POC Glucose (74 - 106 MG/DL) 148 H 185 H 190 H 161 H Calcium (8.4 - 10.2 mg/dL) 7.3 L Total Bilirubin (0.2 - 1.3 mg/dL) 1.8 H Conjugated Bilirubin (0 - 0.3 mg/dL) 0 Unconjugated Bilirubin (0 - 1.1 mg/dL) 1.0 AST (15 - 46 U/L) 37 ALT (13 - 69 U/L) 48 Total Alk Phosphatase (38 - 126 U/L) 164 H Total Protein (6.3 - 8.2 g/dL) 5.3 L Albumin (3.5 - 5.0 g/dL) 2.5 L 09/27 1017 Chemistry Procalcitonin (NG/ML) 1.51 Laboratory Tests 09/28 0446 Hematology WBC (5.0 - 12.0 x10 3/uL) 12.3 H RBC (4.70 - 6.10 x10 6/uL) 3.27 L Hgb (14.0 - 18.0 g/dL) 10.1 L Hct (37.0 - 49.0 %) 30.5 L MCV (80 - 94 fL) 93 MCH (27 - 31 pg) 30.9 MCHC (33 - 37 g/dL) 33.1 RDW (11.5 - 15.5 %) 12.8 Plt Count (130 - 400 x10 3/uL) 213 MPV (9.4 - 16.4 fL) 10.0 Neut % (Auto) (43 - 65 %) 80.8 H Lymph % (Auto) (20.5 - 45.5 %) 11.0 L [place] % (Auto) (5.5 - 11.7 %) 5.5 Eos % (Auto) (0.9 - 2.9 %) 1.8 Baso % (Auto) (0.2 - 1.0 %) 0.3 Neut # (Auto) (2.2 - 4.8 x10 3/uL) 9.95 H Lymph # (Auto) (1.3 - 2.9 x10 3/uL) 1.36 [place] # (Auto) (0.3 - 0.8 x10 3/uL) 0.68 Eos # (Auto) (0.0 - 0.2 x10 3/uL) 0.22 H Baso # (Auto) (0.0 - 0.1 x10 3/uL) 0.04 Immature Gran % (0.0 - 2.0 %) 0.6 Nucleated RBC % (0 - 1.0 %) 0.0 Radiology data: Recent Impressions: CAT SCAN - CTA CHEST FOR PE 09/27 0930 Report Impression - Status: SIGNED Entered: 09/28/2019 1006 IMPRESSION: 1. No evidence of pulmonary embolus. [...] collection. 5. No evidence of bowel obstruction Impression By: Cynthia Bone MD CAT SCAN - CT ABD PELVIS W/CONT 09/27 0930 Report Impression - Status: SIGNED Entered: 09/28/2019 1006 IMPRESSION: 1. No evidence of pulmonary embolus. [...] collection. 5. No evidence of bowel obstruction Impression By: Cynthia Bone MD RADIOLOGY - XR CHEST 1 V 09/27 1134 Report Impression - Status: SIGNED Entered: 09/28/2019 1145 IMPRESSION: 1. Patchy perihilar and basilar opacities compatible with areas of atelectasis and patchy bilateral consolidation. Impression By: Cynthia Bone MD Results: labs reviewed, vital signs stable, current med profile rev'd Diagnosis, Assessment Plan Free Text DxA P Notes Free text DxA P notes: 69yo M admitted for management of cholecystitis. #Cholecystitis: VARUN s/p lap mag(09/24) -continue management per general surgery consult service -CT abd/pelv 09/27 with post op changes, no discrete defined fluid collection -CTA chest with no evidence of pulmonary embolism #Elevated LFTs -monitor trend -slight downward trend today #Hypokalemia -replace #T2DM: hyperglycemic; A1c 9.5 -continues on metformin, continue PRN SSI #HTN: stable off ARB -continue supportive care #Obesity: BMI > 30 -ensure low salt DM diet < 2000 kcal #HLD: ASCVD > 7.5% -consider statin initiation prior to DC, pending improvement in LFTs #Fever, leukocytosis -CXR with atelectasis and patchy bilateral consolidation, continue nebs, IS use, ambulate -PCT level was normal -ID recs continue zosyn, added diflucan -this morning WBC have gone down to 12.3 from 20.6 #Dispo: pending PT/OT evals. Continue IV ABTs. Continue to follow labs. Attestations Attestation needed: supervising physician at 1409 RPT #:[id number] END OF REPORT [facility] 2019-09-29 08:21:00 [facility] REPORT#:[id number] REPORT STATUS: Signed DATE:09/29/19 TIME: 08 PATIENT: SEYMOUR SNOW UNIT #: [id number] ROOM/BED: [address] : 48 AGE: 69 SEX: M ATTEND: Lizzy Duke MD ADM AUTHOR: Soto Hudson NP * ALL edits or amendments must be made on the electronic/computer document * Subjective Chief Complaint: abdominal pain feels a bit better weakness Review of Systems Constitutional: Reports: fatigue, generalized weakness. Denies: chills, fever. Skin: Denies: abrasion, bruising. Allergy/Immun: Denies: allergic reaction, anaphylaxis. Eyes: Denies: redness, discharge. ENT: Denies: sore throat. Respiratory: Reports: PRITCHARD (dyspnea on exertion). Denies: non productive cough, SOB, wheezing. Cardiovascular: Denies: chest pain, edema. GI: Reports: abdominal pain. Denies: constipation, diarrhea, nausea, vomiting. : Denies: dysuria, flank pain. Musculoskeletal: Denies: arthritis, extremity pain. Neuro: Denies: dizziness, headache. Psych: Denies: agitation, anxiety. All systems rev neg: except as marked Objective General VS/I O: Vital Signs: Date Time Temp Pulse Resp B/P B/P Pulse O2 O2 Flow FiO2 Mean Ox Delivery Rate 09/28 0750 36.6 75 17 117/73 87.9 91 Room air 09/28 0409 36.7 75 16 130/75 93.1 92 09/27 2305 36.8 76 16 119/74 88.8 93 09/27 1957 37.0 84 16 106/65 78.5 94 09/27 1612 68 17 113/74 86.7 95 Room air 09/27 1608 Nasal 2.536885 cannula 09/27 1245 95 Room air 21 09/27 1139 37.4 84 16 116/75 88.4 95 Nasal cannula 24 hour I O ending at 0700: 09/28 0700 09/27 1900 Intake Total Output Total 35 Balance -35 Number 2 Bowel Movements Number Voids 4 Output, 35 Drainage Patient Weight Weight (lb): 240 Weight (oz): 8.07 Weight (kg): 109.091 Medications: Active Meds + DC'd Last 24 Hrs Polyethylene Glycol 1 PKT DAILY PO (CKD) Piperacillin Sod/Tazobactam Sod 3.375 GM Q8HR IV Sodium Chloride 100 ML Fluconazole 200 MG DAILY@1600 PO Diatrizoate Meglum/Diatrizoate Sod 30 ML ONCE PRN PO (DC) Iopamidol 100 ML ONCE PRN IV (DC) Sodium Chloride 50 ML ONCE PRN IV (DC) Metformin HCl 500 MG C BK DIN PO (DA) Sodium Chloride 1,000 ML .Q20H IV Enoxaparin Sodium 30 MG 0400,1600 SUBQ Oxycodone HCl 5 MG Q6H PRN PRN PO Piperacillin Sod/Tazobactam Sod 3.375 GM Q8H IV (DC) Sodium Chloride 100 ML Acetaminophen 975 MG Q8HR PO Methocarbamol 500 MG BID PO Hydromorphone HCl 0.5 MG Q4H PRN PRN IV Losartan Potassium 50 MG BID PO Pneumococcal 13-Valent Conj Vacc 0.5 ML ASDIR IM Dextrose/Water 25 ML ASDIR PRN IV Insulin Human Lispro LOW DOSE SCALE ASDIR SUBQ Morphine Sulfate 2 MG Q4H PRN PRN IV Ondansetron HCl 4 MG Q4H PRN PRN IV Physical Exam General appearance: obese, alert, awake, oriented, no acute distress Head/Eyes: normal conjunctiva/sclera ENT: moist mucosal membranes Neck: full range of motion, non-tender, no JVD Cardiovascular: regular rate rhythm Respiratory: aerating well, no distress Abdomen: obese, tenderness, no distention, abdominal dressing in place, drain to R quad Genitourinary: no bladder distention Extremities: no clubbing, no cyanosis, no edema Musculoskeletal: normal inspection Neuro/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: alert, oriented X 3, normal speech Skin: abdominal incision to abdomen with dressing in place, drain to R abd quad Psychiatry: normal affect, normal judgment/insight, normal mood Results Findings/Data: Laboratory Tests 09/28 09/28 09/27 09/27 09/27 0556 0446 1958 1613 1137 Chemistry Sodium (137 - 145 mmol/L) 134 L Potassium (3.4 - 5.0 mmol/L) 3.2 L Chloride (98 - 107 mmol/L) 101 Carbon Dioxide (22 - 30 mmol/L) 26 BUN (9 - 20 mg/dL) 7 L Creatinine (0.7 - 1.3 mg/dL) 0.5 L Glomerular Filtr Rate (>60) 174 Glucose (74 - 106 mg/dL) 140 H POC Glucose (74 - 106 MG/DL) 148 H 185 H 190 H 161 H Calcium (8.4 - 10.2 mg/dL) 7.3 L Total Bilirubin (0.2 - 1.3 mg/dL) 1.8 H Conjugated Bilirubin (0 - 0.3 mg/dL) 0 Unconjugated Bilirubin (0 - 1.1 mg/dL) 1.0 AST (15 - 46 U/L) 37 ALT (13 - 69 U/L) 48 Total Alk Phosphatase (38 - 126 U/L) 164 H Total Protein (6.3 - 8.2 g/dL) 5.3 L Albumin (3.5 - 5.0 g/dL) 2.5 L 09/27 1017 Chemistry Procalcitonin (NG/ML) 1.51 Laboratory Tests 09/286 Hematology WBC (5.0 - 12.0 x10 3/uL) 12.3 H RBC (4.70 - 6.10 x10 6/uL) 3.27 L Hgb (14.0 - 18.0 g/dL) 10.1 L Hct (37.0 - 49.0 %) 30.5 L MCV (80 - 94 fL) 93 MCH (27 - 31 pg) 30.9 MCHC (33 - 37 g/dL) 33.1 RDW (11.5 - 15.5 %) 12.8 Plt Count (130 - 400 x10 3/uL) 213 MPV (9.4 - 16.4 fL) 10.0 Neut % (Auto) (43 - 65 %) 80.8 H Lymph % (Auto) (20.5 - 45.5 %) 11.0 L [place] % (Auto) (5.5 - 11.7 %) 5.5 Eos % (Auto) (0.9 - 2.9 %) 1.8 Baso % (Auto) (0.2 - 1.0 %) 0.3 Neut # (Auto) (2.2 - 4.8 x10 3/uL) 9.95 H Lymph # (Auto) (1.3 - 2.9 x10 3/uL) 1.36 [place] # (Auto) (0.3 - 0.8 x10 3/uL) 0.68 Eos # (Auto) (0.0 - 0.2 x10 3/uL) 0.22 H Baso # (Auto) (0.0 - 0.1 x10 3/uL) 0.04 Immature Gran % (0.0 - 2.0 %) 0.6 Nucleated RBC % (0 - 1.0 %) 0.0 Radiology data: Recent Impressions: CAT SCAN - CTA CHEST FOR PE 09/27 929 Report Impression - Status: SIGNED Entered: 09/28/2019 100 IMPRESSION: 1. No evidence of pulmonary embolus. [...] collection. 5. No evidence of bowel obstruction Impression By: [email or web address] - Adolfo Bone MD CAT SCAN - CT ABD PELVIS W/CONT 09/27 929 Report Impression - Status: SIGNED Entered: 09/28/2019 1006 IMPRESSION: 1. No evidence of pulmonary embolus. [...] collection. 5. No evidence of bowel obstruction Impression By: Cynthia - Adolfo Bone MD RADIOLOGY - XR CHEST 1 V 09/27 1134 Report Impression - Status: SIGNED Entered: 09/28/2019 1145 IMPRESSION: 1. Patchy perihilar and basilar opacities compatible with areas of atelectasis and patchy bilateral consolidation. Impression By: Cynthia - Adolfo Bone MD Results: labs reviewed, vital signs stable, current med profile rev'd Diagnosis, Assessment Plan Free Text DxA P Notes Free text DxA P notes: 69yo M admitted for management of cholecystitis. #Cholecystitis: VARUN s/p lap mag(09/24) -continue management per general surgery consult service -CT abd/pelv 09/27 with post op changes, no discrete defined fluid collection -CTA chest with no evidence of pulmonary embolism #Elevated LFTs -monitor trend -slight downward trend today #Hypokalemia -replace #T2DM: hyperglycemic; A1c 9.5 -continues on metformin, continue PRN SSI #HTN: stable off ARB -continue supportive care #Obesity: BMI > 30 -ensure low salt DM diet < 2000 kcal #HLD: ASCVD > 7.5% -consider statin initiation prior to DC, pending improvement in LFTs #Fever, leukocytosis -CXR with atelectasis and patchy bilateral consolidation, continue nebs, IS use, ambulate -PCT level was normal -ID recs continue zosyn, added diflucan -this morning WBC have gone down to 12.3 from 20.6 #Dispo: pending PT/OT evals. Continue IV ABTs. Continue to follow labs. Attestations Attestation needed: supervising physician at 1409 at 1353 RPT #:[id number] END OF REPORT [facility] 2019-09-28 15:48:00 ([facility]) Infect Disease Consult Note REPORT#:[id number] REPORT STATUS: Signed DATE:09/28/19 TIME: 1548 PATIENT: SEYMOUR SNOW UNIT #: [id number] ROOM/BED: [address] : 48 AGE: 69 SEX: M ATTEND: Lizzy Duke MD ADM AUTHOR: Martín Denis DO * ALL edits or amendments must be made on the electronic/computer document * History of Present Illness HPI: Patient is a 69 y/o male with pmh as below who presneted to [facility] seconadry to abd pain, fevers, chills and weakness. He was admitted found to have acute mag and evaluated by surgery. He was planned for lap mag but was converted t open and began having fevers, chills and leukocytosis and therefore ID was asked for eval. Per patient + fevers, chills and weakness History - Adult longitudinal Past medical history: Reports: Diabetes mellitus, Hypertension. Denies: Alcoholism/subst abuse. Additional surgical history: Neck surgery, 40 years ago Alcohol use: Denies EtOH use Drug use: Denies recreational drugs Smoking status for patients 13 years old or older: Never Smoker Other social history: Good social support Allergies: Coded Allergies: No Known Allergies (10/26/18) Objective General VS/I O: Last Documented: Result Date Time Pulse Ox 95 09/27 1245 FiO2 21 09/27 1245 O2 Delivery Room air 09/27 1245 B/P 116/75 09/27 1139 B/P Mean 88.4 09/27 1139 Temp 37.4 09/27 1139 Pulse 84 09/27 1139 Resp 16 09/27 1139 O2 Flow Rate 3.166532 09/26 2201 Vital Signs Date Temp Pulse Resp B/P B/P Mean Pulse Ox FiO2 09/26-09/27 36.8-37.7 70-90 16-20 109-128/64-76 78.6-93.6 90-97 21 24 hour I O ending at 0700: 09/27 0700 09/26 1900 Intake Total 1429.00 Output Total 650 45 Balance 779.00 -45 Intake, IV 709.00 Intake, Oral 720 Number Voids 1 3 Output, 50 45 Drainage Output, Urine 600 Patient 109.091 kg Weight Patient Weight Weight (lb): 240 Weight (oz): 8.07 Weight (kg): 109.091 Physical Exam General appearance: chronically ill appearing Head/eyes: atraumatic, clear cornea Neck: full range of motion, non-tender Cardiovascular: normal heart sounds, regular rate rhythm Respiratory: clear to auscultation Abdomen: soft Extremities: moves all Diagnosis, Assessment Plan Free Text DxA P Notes Free text DxA P notes: acute mag - s/p surgery - cont zosyn - with increased wbc agree with scan - start diflucan - if scan neg will expand work up leukocytosis - likely from above - zosyn/diflucan - bcx - ct recs zosyn/diflucan follow up on ct repeat bcx at 1552 RPT #:[id number] END OF REPORT [facility] 2019-09-28 10:06:00 [facility] General Surgery Progress Note REPORT#:[id number] REPORT STATUS: Signed DATE:09/28/19 TIME: 1006 PATIENT: SEYMOUR SNOW UNIT #: [id number] ROOM/BED: [address] : 48 AGE: 69 SEX: M ATTEND: Lizzy Duke MD ADM AUTHOR: Rickey Glover MD R1 * ALL edits or amendments must be made on the electronic/computer document * General Date of surgery: 09/25/19 Status post: Laparoscopic, converted to open cholecystectomy with drain placement Subjective Comments: Patient reports having a BM today. Reports tolerating his regular diet without nausea nor vomiting. Appears more tired and lethargic today. Denies any new pain , reports some abdominal discomfort when getting up out of bed. Seen taking small shallow breaths on his IS. Nurse reports him being SOB last night, oxygen NC started. ROS negative unless noted in above HPI of the following systems: constitutional, eyes, HENT, neck, neuro, CV, resp, GI, , msk, skin Objective General VS/I O: Last Documented: Result Date Time Pulse Ox 90 09/27 721 B/P 110/65 09/27 721 B/P Mean 79.7 09/27 721 O2 Delivery Nasal cannula 09/27 721 Temp 36.8 09/27 721 Pulse 78 09/27 721 Resp 16 09/27 721 O2 Flow Rate 3.890722 09/26 2201 FiO2 21 09/25 1618 Vital Signs Date Temp Pulse Resp B/P B/P Mean Pulse Ox FiO2 09/26-09/27 36.8-37.7 70-99 16-26 102-128/64-76 77.6-93.6 90-97 24 hour I O ending at 0700: 09/27 0709/26 1900 Intake Total 1429.00 Output Total 650 45 Balance 779.00 -45 Intake, IV 709.00 Intake, Oral 720 Number Voids 1 3 Output, 50 45 Drainage Output, Urine 600 Patient 109.091 kg Weight Patient Weight Weight (lb): 240 Weight (oz): 8.07 Weight (kg): 109.091 Medications: Active Meds + DC'd Last 24 Hrs Diatrizoate Meglum/Diatrizoate Sod 30 ML ONCE PRN PO (DC) Iopamidol 100 ML ONCE PRN IV (DC) Sodium Chloride 50 ML ONCE PRN IV (DC) Metformin HCl 500 MG C BK DIN PO (DA) Sodium Chloride 1,000 ML .Q20H IV Enoxaparin Sodium 30 MG 0400,1600 SUBQ Oxycodone HCl 5 MG Q6H PRN PRN PO Piperacillin Sod/Tazobactam Sod 3.375 GM Q8H IV Sodium Chloride 100 ML Acetaminophen 975 MG Q8HR PO Methocarbamol 500 MG BID PO Hydromorphone HCl 0.5 MG Q4H PRN PRN IV Losartan Potassium 50 MG BID PO Pneumococcal 13-Valent Conj Vacc 0.5 ML ASDIR IM Dextrose/Water 25 ML ASDIR PRN IV Insulin Human Lispro LOW DOSE SCALE ASDIR SUBQ Morphine Sulfate 2 MG Q4H PRN PRN IV Ondansetron HCl 4 MG Q4H PRN PRN IV Nutrtion assessment: The data set between the solid lines has been imported from the dietitian's assessment. Any exceptions have been noted under Provider comments. BMI Calculated: 30.9 Nutrition related diagnosis: Nutrition diagnosis details: Nutrition problem: Nutrition etiology: Nutrition signs and symptoms: Nutrition prescription: Dietitian name: Assessment completed: Provider comments on imported dietitian assessment: Physical Exam General appearance: alert, awake, oriented Wound/incision: Location: RUQ, umbilicus Site condition: dressing intact (new dressing applied), edges approximated, Drain- serosanguinous fluid, no bilious fluid HEENT: anicteric, atraumatic, moist mucosal membranes Neck: full range of motion, non-tender, no masses or swelling Cardiovascular: normal capillary refill, normal heart sounds, normal S1/S2 Respiratory: clear to auscultation, equal breath sounds, symmetric expansion Abdomen: tenderness (RUQ to palpation), soft, no distention, Dressings are clean and dry at the umbilicus and RUQ Drain present in RUQ- serosanguinous Extremities: moves all, normal capillary refill, normal temperature Neuro/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: alert, oriented x 3, normal speech Skin: dry, intact, normal color Psychiatry: normal affect, normal judgment/insight, normal mood Results Findings/Data: Laboratory Tests 09/28/19 0438: [Embedded Image Not Available] Laboratory Tests 09/27 09/27 09/26 09/26 09/26 0605 0438 1920 1512 1055 Chemistry Sodium (137 - 145 mmol/L) 134 L Potassium (3.4 - 5.0 mmol/L) 3.8 Chloride (98 - 107 mmol/L) 101 Carbon Dioxide (22 - 30 mmol/L) 26 BUN (9 - 20 mg/dL) 12 Creatinine (0.7 - 1.3 mg/dL) 0.6 L Glomerular Filtr Rate (>60) 141 Glucose (74 - 106 mg/dL) 155 H POC Glucose (74 - 106 MG/DL) 179 H 212 H 204 H 239 H Calcium (8.4 - 10.2 mg/dL) 7.4 L Total Bilirubin (0.2 - 1.3 mg/dL) 2.4 H Conjugated Bilirubin (0 - 0.3 mg/dL) 0 Unconjugated Bilirubin (0 - 1.1 mg/dL) 1.2 H AST (15 - 46 U/L) 43 ALT (13 - 69 U/L) 45 Total Alk Phosphatase (38 - 126 U/L) 172 H Total Protein (6.3 - 8.2 g/dL) 5.9 L Albumin (3.5 - 5.0 g/dL) 2.8 L Laboratory Tests 09/27 0438 Hematology WBC (5.0 - 12.0 x10 3/uL) 20.6 H RBC (4.70 - 6.10 x10 6/uL) 3.47 L Hgb (14.0 - 18.0 g/dL) 10.9 L Hct (37.0 - 49.0 %) 32.0 L MCV (80 - 94 fL) 92 MCH (27 - 31 pg) 31.4 H MCHC (33 - 37 g/dL) 34.1 RDW (11.5 - 15.5 %) 13.1 Plt Count (130 - 400 x10 3/uL) 227 MPV (9.4 - 16.4 fL) 9.6 Neut % (Auto) (43 - 65 %) 85.1 H Lymph % (Auto) (20.5 - 45.5 %) 9.0 L [place] % (Auto) (5.5 - 11.7 %) 3.7 L Eos % (Auto) (0.9 - 2.9 %) 0.7 L Baso % (Auto) (0.2 - 1.0 %) 0.3 Neut # (Auto) (2.2 - 4.8 x10 3/uL) 17.53 H Lymph # (Auto) (1.3 - 2.9 x10 3/uL) 1.86 [place] # (Auto) (0.3 - 0.8 x10 3/uL) 0.77 Eos # (Auto) (0.0 - 0.2 x10 3/uL) 0.15 Baso # (Auto) (0.0 - 0.1 x10 3/uL) 0.07 Immature Gran % (0.0 - 2.0 %) 1.2 Nucleated RBC % (0 - 1.0 %) 0.0 Radiology data: Recent Impressions: CAT SCAN - CTA CHEST FOR PE 09/27 929 Report Impression - Status: SIGNED Entered: 09/28/2019 1006 IMPRESSION: 1. No evidence of pulmonary embolus. [...] collection. 5. No evidence of bowel obstruction Impression By: Cynthia Bone MD CAT SCAN - CT ABD PELVIS W/CONT 09/27 929 Report Impression - Status: SIGNED Entered: 09/28/2019 1006 IMPRESSION: 1. No evidence of pulmonary embolus. [...] collection. 5. No evidence of bowel obstruction Impression By: Cynthia Bone MD Results: All labs and results reviewed by attending physician Diagnosis, Assessment Plan Free Text A P: ASSESSMENT: 69 y/o GANDHI POD 3 s/p laparsocopic, converted to open cholecystectomy. Reports having a BM today. Tolerating regular diet without nausea nor vomiting. Appears more tired today, persistently elevated WBC. Injuries/Acute Problems: -Cholecystitis Chronic Medical Problems/Comorbidities: -HTN -DM PLAN: CTA chest, CT abdomen pelvis- ordered due to persistent elevated WBC Leukocytosis noted; will continue to follow closely Continue Zosyn today Elevated direct bilirubinemia noted, will continue to follow Multimodel pain control, discontinued toradol Advanced to regular diet- monitor drain output for any bile OOB, regular ambulation Find incentive spirometer- IS usage- 10 /hr Will discuss imaging results with radiology L/D/A: PIV DVT prophylaxis: SCDs Lovenox GI prophylaxis: not indicated Diet: Regular diet Activity: OOB, ambulation, as tolerated Dispo: continue on medicine and we will cont. to follow. Code Status: FULL Attestations Attestation needed: teaching physician at 1012 RPT #:[id number] END OF REPORT [facility] 2019-09-28 10:06:00 ([facility]) General Surgery Progress Note REPORT#:[id number] REPORT STATUS: Signed DATE:09/28/19 TIME: 1006 PATIENT: SEYMOUR SNOW UNIT #: [id number] ROOM/BED: [address] : 48 AGE: 69 SEX: M ATTEND: Lizzy Dkue MD ADM AUTHOR: Rickey Glover MD R1 * ALL edits or amendments must be made on the electronic/computer document * Rickey Glover 09/28/19 1006: General Date of surgery: 09/25/19 Status post: Laparoscopic, converted to open cholecystectomy with drain placement Subjective Comments: Patient reports having a BM today. Reports tolerating his regular diet without nausea nor vomiting. Appears more tired and lethargic today. Denies any new pain , reports some abdominal discomfort when getting up out of bed. Seen taking small shallow breaths on his IS. Nurse reports him being SOB last night, oxygen NC started. ROS negative unless noted in above HPI of the following systems: constitutional, eyes, HENT, neck, neuro, CV, resp, GI, , msk, skin Objective General VS/I O: Last Documented: Result Date Time Pulse Ox 90 09/27 721 B/P 110/65 09/27 721 B/P Mean 79.7 09/27 721 O2 Delivery Nasal cannula 09/27 721 Temp 36.8 09/27 721 Pulse 78 09/27 721 Resp 16 09/27 721 O2 Flow Rate 3.381432 09/26 220 FiO2 21 09/25 1618 Vital Signs Date Temp Pulse Resp B/P B/P Mean Pulse Ox FiO2 09/26-09/27 36.8-37.7 70-99 16-26 102-128/64-76 77.6-93.6 90-97 24 hour I O ending at 0700: 09/27 0700 09/26 1900 Intake Total 1429.00 Output Total 650 45 Balance 779.00 -45 Intake, IV 709.00 Intake, Oral 720 Number Voids 1 3 Output, 50 45 Drainage Output, Urine 600 Patient 109.091 kg Weight Patient Weight Weight (lb): 240 Weight (oz): 8.07 Weight (kg): 109.091 Medications: Active Meds + DC'd Last 24 Hrs Diatrizoate Meglum/Diatrizoate Sod 30 ML ONCE PRN PO (DC) Iopamidol 100 ML ONCE PRN IV (DC) Sodium Chloride 50 ML ONCE PRN IV (DC) Metformin HCl 500 MG C BK DIN PO (DA) Sodium Chloride 1,000 ML .Q20H IV Enoxaparin Sodium 30 MG 0400,1600 SUBQ Oxycodone HCl 5 MG Q6H PRN PRN PO Piperacillin Sod/Tazobactam Sod 3.375 GM Q8H IV Sodium Chloride 100 ML Acetaminophen 975 MG Q8HR PO Methocarbamol 500 MG BID PO Hydromorphone HCl 0.5 MG Q4H PRN PRN IV Losartan Potassium 50 MG BID PO Pneumococcal 13-Valent Conj Vacc 0.5 ML ASDIR IM Dextrose/Water 25 ML ASDIR PRN IV Insulin Human Lispro LOW DOSE SCALE ASDIR SUBQ Morphine Sulfate 2 MG Q4H PRN PRN IV Ondansetron HCl 4 MG Q4H PRN PRN IV Nutrtion assessment: The data set between the solid lines has been imported from the dietitian's assessment. Any exceptions have been noted under Provider comments. BMI Calculated: 30.9 Nutrition related diagnosis: Nutrition diagnosis details: Nutrition problem: Nutrition etiology: Nutrition signs and symptoms: Nutrition prescription: Dietitian name: Assessment completed: Provider comments on imported dietitian assessment: Physical Exam General appearance: alert, awake, oriented Wound/incision: Location: RUQ, umbilicus Site condition: dressing intact (new dressing applied), edges approximated, Drain- serosanguinous fluid, no bilious fluid HEENT: anicteric, atraumatic, moist mucosal membranes Neck: full range of motion, non-tender, no masses or swelling Cardiovascular: normal capillary refill, normal heart sounds, normal S1/S2 Respiratory: clear to auscultation, equal breath sounds, symmetric expansion Abdomen: tenderness (RUQ to palpation), soft, no distention, Dressings are clean and dry at the umbilicus and RUQ Drain present in RUQ- serosanguinous Extremities: moves all, normal capillary refill, normal temperature Neuro/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: alert, oriented x 3, normal speech Skin: dry, intact, normal color Psychiatry: normal affect, normal judgment/insight, normal mood Results Findings/Data: Laboratory Tests 09/28/19 0438: [Embedded Image Not Available] Laboratory Tests 09/27 09/27 09/26 09/26 09/26 0605 0438 1920 1512 1055 Chemistry Sodium (137 - 145 mmol/L) 134 L Potassium (3.4 - 5.0 mmol/L) 3.8 Chloride (98 - 107 mmol/L) 101 Carbon Dioxide (22 - 30 mmol/L) 26 BUN (9 - 20 mg/dL) 12 Creatinine (0.7 - 1.3 mg/dL) 0.6 L Glomerular Filtr Rate (>60) 141 Glucose (74 - 106 mg/dL) 155 H POC Glucose (74 - 106 MG/DL) 179 H 212 H 204 H 239 H Calcium (8.4 - 10.2 mg/dL) 7.4 L Total Bilirubin (0.2 - 1.3 mg/dL) 2.4 H Conjugated Bilirubin (0 - 0.3 mg/dL) 0 Unconjugated Bilirubin (0 - 1.1 mg/dL) 1.2 H AST (15 - 46 U/L) 43 ALT (13 - 69 U/L) 45 Total Alk Phosphatase (38 - 126 U/L) 172 H Total Protein (6.3 - 8.2 g/dL) 5.9 L Albumin (3.5 - 5.0 g/dL) 2.8 L Laboratory Tests 09/27 0438 Hematology WBC (5.0 - 12.0 x10 3/uL) 20.6 H RBC (4.70 - 6.10 x10 6/uL) 3.47 L Hgb (14.0 - 18.0 g/dL) 10.9 L Hct (37.0 - 49.0 %) 32.0 L MCV (80 - 94 fL) 92 MCH (27 - 31 pg) 31.4 H MCHC (33 - 37 g/dL) 34.1 RDW (11.5 - 15.5 %) 13.1 Plt Count (130 - 400 x10 3/uL) 227 MPV (9.4 - 16.4 fL) 9.6 Neut % (Auto) (43 - 65 %) 85.1 H Lymph % (Auto) (20.5 - 45.5 %) 9.0 L [place] % (Auto) (5.5 - 11.7 %) 3.7 L Eos % (Auto) (0.9 - 2.9 %) 0.7 L Baso % (Auto) (0.2 - 1.0 %) 0.3 Neut # (Auto) (2.2 - 4.8 x10 3/uL) 17.53 H Lymph # (Auto) (1.3 - 2.9 x10 3/uL) 1.86 [place] # (Auto) (0.3 - 0.8 x10 3/uL) 0.77 Eos # (Auto) (0.0 - 0.2 x10 3/uL) 0.15 Baso # (Auto) (0.0 - 0.1 x10 3/uL) 0.07 Immature Gran % (0.0 - 2.0 %) 1.2 Nucleated RBC % (0 - 1.0 %) 0.0 Radiology data: Recent Impressions: CAT SCAN - CTA CHEST FOR PE 09/27 929 Report Impression - Status: SIGNED Entered: 09/28/2019 1006 IMPRESSION: 1. No evidence of pulmonary embolus. [...] collection. 5. No evidence of bowel obstruction Impression By: Cynthia Bone MD CAT SCAN - CT ABD PELVIS W/CONT 09/27 0430 Report Impression - Status: SIGNED Entered: 09/28/2019 1006 IMPRESSION: 1. No evidence of pulmonary embolus. [...] collection. 5. No evidence of bowel obstruction Impression By: Cynthia Bone MD Results: All labs and results reviewed by attending physician Diagnosis, Assessment Plan Free Text A P: ASSESSMENT: 69 y/o GANDHI POD 3 s/p laparsocopic, converted to open cholecystectomy. Reports having a BM today. Tolerating regular diet without nausea nor vomiting. Appears more tired today, persistently elevated WBC. Injuries/Acute Problems: -Cholecystitis Chronic Medical Problems/Comorbidities: -HTN -DM PLAN: CTA chest, CT abdomen pelvis- ordered due to persistent elevated WBC Leukocytosis noted; will continue to follow closely Continue Zosyn today Elevated direct bilirubinemia noted, will continue to follow Multimodel pain control, discontinued toradol Advanced to regular diet- monitor drain output for any bile OOB, regular ambulation Find incentive spirometer- IS usage- 10 /hr Will discuss imaging results with radiology L/D/A: PIV DVT prophylaxis: SCDs Lovenox GI prophylaxis: not indicated Diet: Regular diet Activity: OOB, ambulation, as tolerated Dispo: continue on medicine and we will cont. to follow. Code Status: FULL Attestations Attestation needed: teaching physician Judith Mccoy 09/28/19 1750: Attestations Teaching Physician Attestation F/U visit w/ resident: I saw the patient with the resident and . . . agree with the resident's findings and plan. Today pt appears more lethargic, started on O2 overnight. persistent elevated WBC, states that he had a BM today. Abdomen soft. Wounds CDI no signs of infection. CATHRYN drain with serosanguinous drainage. CT abdomen and pelvis ordered, Recent Impressions: CAT SCAN - CTA CHEST FOR PE 09/27 929 Report Impression - Status: SIGNED Entered: 09/28/2019 1006 IMPRESSION: 1. No evidence of pulmonary embolus. [...] collection. 5. No evidence of bowel obstruction Impression By: Cynthia Bone MD CAT SCAN - CT ABD PELVIS W/CONT 09/27 929 Report Impression - Status: SIGNED Entered: 09/28/2019 1006 IMPRESSION: 1. No evidence of pulmonary embolus. [...] collection. 5. No evidence of bowel obstruction Impression By: Cynthia Bone MD RADIOLOGY - XR CHEST 1 V 09/27 1134 Report Impression - Status: SIGNED Entered: 09/28/2019 1145 IMPRESSION: 1. Patchy perihilar and basilar opacities compatible with areas of atelectasis and patchy bilateral consolidation. Impression By: Cynthia Bone MD ID was consulted for penumonia. Continue advance diet as toleated. Will keep CATHRYN drain in today at 1012 RPT #:[id number] END OF REPORT [facility] 2019-09-28 10:06:00 ([facility] General Surgery Progress Note REPORT#:[id number] REPORT STATUS: Signed DATE:09/28/19 TIME: 1006 PATIENT: SEYMOUR SNOW UNIT #: [id number] ROOM/BED: [address] : 48 AGE: 69 SEX: M ATTEND: Lizzy Duke MD ADM AUTHOR: Rickey Glover MD R1 * ALL edits or amendments must be made on the electronic/computer document * Rickey Glover 09/28/19 1006: General Date of surgery: 09/25/19 Status post: Laparoscopic, converted to open cholecystectomy with drain placement Subjective Comments: Patient reports having a BM today. Reports tolerating his regular diet without nausea nor vomiting. Appears more tired and lethargic today. Denies any new pain , reports some abdominal discomfort when getting up out of bed. Seen taking small shallow breaths on his IS. Nurse reports him being SOB last night, oxygen NC started. ROS negative unless noted in above HPI of the following systems: constitutional, eyes, HENT, neck, neuro, CV, resp, GI, , msk, skin Objective General VS/I O: Last Documented: Result Date Time Pulse Ox 90 09/27 0722 B/P 110/65 09/27 07 B/P Mean 79.7 09/27 07 O2 Delivery Nasal cannula 09/27 721 Temp 36.8 09/27 0722 Pulse 78 09/27 0722 Resp 16 09/27 07 O2 Flow Rate 3.912867 09/26 2201 FiO2 21 09/25 1618 Vital Signs Date Temp Pulse Resp B/P B/P Mean Pulse Ox FiO2 09/26-09/27 36.8-37.7 70-99 16-26 102-128/64-76 77.6-93.6 90-97 24 hour I O ending at 0700: 09/27 0700 09/26 1900 Intake Total 1429.00 Output Total 650 45 Balance 779.00 -45 Intake, IV 709.00 Intake, Oral 720 Number Voids 1 3 Output, 50 45 Drainage Output, Urine 600 Patient 109.091 kg Weight Patient Weight Weight (lb): 240 Weight (oz): 8.07 Weight (kg): 109.091 Medications: Active Meds + DC'd Last 24 Hrs Diatrizoate Meglum/Diatrizoate Sod 30 ML ONCE PRN PO (DC) Iopamidol 100 ML ONCE PRN IV (DC) Sodium Chloride 50 ML ONCE PRN IV (DC) Metformin HCl 500 MG C BK DIN PO (DA) Sodium Chloride 1,000 ML .Q20H IV Enoxaparin Sodium 30 MG 0400,1600 SUBQ Oxycodone HCl 5 MG Q6H PRN PRN PO Piperacillin Sod/Tazobactam Sod 3.375 GM Q8H IV Sodium Chloride 100 ML Acetaminophen 975 MG Q8HR PO Methocarbamol 500 MG BID PO Hydromorphone HCl 0.5 MG Q4H PRN PRN IV Losartan Potassium 50 MG BID PO Pneumococcal 13-Valent Conj Vacc 0.5 ML ASDIR IM Dextrose/Water 25 ML ASDIR PRN IV Insulin Human Lispro LOW DOSE SCALE ASDIR SUBQ Morphine Sulfate 2 MG Q4H PRN PRN IV Ondansetron HCl 4 MG Q4H PRN PRN IV Nutrtion assessment: The data set between the solid lines has been imported from the dietitian's assessment. Any exceptions have been noted under Provider comments. BMI Calculated: 30.9 Nutrition related diagnosis: Nutrition diagnosis details: Nutrition problem: Nutrition etiology: Nutrition signs and symptoms: Nutrition prescription: Dietitian name: Assessment completed: Provider comments on imported dietitian assessment: Physical Exam General appearance: alert, awake, oriented Wound/incision: Location: RUQ, umbilicus Site condition: dressing intact (new dressing applied), edges approximated, Drain- serosanguinous fluid, no bilious fluid HEENT: anicteric, atraumatic, moist mucosal membranes Neck: full range of motion, non-tender, no masses or swelling Cardiovascular: normal capillary refill, normal heart sounds, normal S1/S2 Respiratory: clear to auscultation, equal breath sounds, symmetric expansion Abdomen: tenderness (RUQ to palpation), soft, no distention, Dressings are clean and dry at the umbilicus and RUQ Drain present in RUQ- serosanguinous Extremities: moves all, normal capillary refill, normal temperature Neuro/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: alert, oriented x 3, normal speech Skin: dry, intact, normal color Psychiatry: normal affect, normal judgment/insight, normal mood Results Findings/Data: Laboratory Tests 09/28/19 043: [Embedded Image Not Available] Laboratory Tests 09/27 09/27 09/26 09/26 09/26 0605 0438 1920 1512 1055 Chemistry Sodium (137 - 145 mmol/L) 134 L Potassium (3.4 - 5.0 mmol/L) 3.8 Chloride (98 - 107 mmol/L) 101 Carbon Dioxide (22 - 30 mmol/L) 26 BUN (9 - 20 mg/dL) 12 Creatinine (0.7 - 1.3 mg/dL) 0.6 L Glomerular Filtr Rate (>60) 141 Glucose (74 - 106 mg/dL) 155 H POC Glucose (74 - 106 MG/DL) 179 H 212 H 204 H 239 H Calcium (8.4 - 10.2 mg/dL) 7.4 L Total Bilirubin (0.2 - 1.3 mg/dL) 2.4 H Conjugated Bilirubin (0 - 0.3 mg/dL) 0 Unconjugated Bilirubin (0 - 1.1 mg/dL) 1.2 H AST (15 - 46 U/L) 43 ALT (13 - 69 U/L) 45 Total Alk Phosphatase (38 - 126 U/L) 172 H Total Protein (6.3 - 8.2 g/dL) 5.9 L Albumin (3.5 - 5.0 g/dL) 2.8 L Laboratory Tests 09/27 0434 Hematology WBC (5.0 - 12.0 x10 3/uL) 20.6 H RBC (4.70 - 6.10 x10 6/uL) 3.47 L Hgb (14.0 - 18.0 g/dL) 10.9 L Hct (37.0 - 49.0 %) 32.0 L MCV (80 - 94 fL) 92 MCH (27 - 31 pg) 31.4 H MCHC (33 - 37 g/dL) 34.1 RDW (11.5 - 15.5 %) 13.1 Plt Count (130 - 400 x10 3/uL) 227 MPV (9.4 - 16.4 fL) 9.6 Neut % (Auto) (43 - 65 %) 85.1 H Lymph % (Auto) (20.5 - 45.5 %) 9.0 L [place] % (Auto) (5.5 - 11.7 %) 3.7 L Eos % (Auto) (0.9 - 2.9 %) 0.7 L Baso % (Auto) (0.2 - 1.0 %) 0.3 Neut # (Auto) (2.2 - 4.8 x10 3/uL) 17.53 H Lymph # (Auto) (1.3 - 2.9 x10 3/uL) 1.86 [place] # (Auto) (0.3 - 0.8 x10 3/uL) 0.77 Eos # (Auto) (0.0 - 0.2 x10 3/uL) 0.15 Baso # (Auto) (0.0 - 0.1 x10 3/uL) 0.07 Immature Gran % (0.0 - 2.0 %) 1.2 Nucleated RBC % (0 - 1.0 %) 0.0 Radiology data: Recent Impressions: CAT SCAN - CTA CHEST FOR PE 09/27 929 Report Impression - Status: SIGNED Entered: 09/28/2019 1006 IMPRESSION: 1. No evidence of pulmonary embolus. [...] collection. 5. No evidence of bowel obstruction Impression By: [email or web address] - Adolfo Bone MD CAT SCAN - CT ABD PELVIS W/CONT 09/27 929 Report Impression - Status: SIGNED Entered: 09/28/2019 1006 IMPRESSION: 1. No evidence of pulmonary embolus. [...] collection. 5. No evidence of bowel obstruction Impression By: [email or web address] - Adolfo Bone MD Results: All labs and results reviewed by attending physician Diagnosis, Assessment Plan Free Text A P: ASSESSMENT: 69 y/o GANDHI POD 3 s/p laparsocopic, converted to open cholecystectomy. Reports having a BM today. Tolerating regular diet without nausea nor vomiting. Appears more tired today, persistently elevated WBC. Injuries/Acute Problems: -Cholecystitis Chronic Medical Problems/Comorbidities: -HTN -DM PLAN: CTA chest, CT abdomen pelvis- ordered due to persistent elevated WBC Leukocytosis noted; will continue to follow closely Continue Zosyn today Elevated direct bilirubinemia noted, will continue to follow Multimodel pain control, discontinued toradol Advanced to regular diet- monitor drain output for any bile OOB, regular ambulation Find incentive spirometer- IS usage- 10 /hr Will discuss imaging results with radiology L/D/A: PIV DVT prophylaxis: SCDs Lovenox GI prophylaxis: not indicated Diet: Regular diet Activity: OOB, ambulation, as tolerated Dispo: continue on medicine and we will cont. to follow. Code Status: FULL Attestations Attestation needed: teaching physician Judith Mccoy 09/28/19 1750: Attestations Teaching Physician Attestation F/U visit w/ resident: I saw the patient with the resident and . . . agree with the resident's findings and plan. Today pt appears more lethargic, started on O2 overnight. persistent elevated WBC, states that he had a BM today. Abdomen soft. Wounds CDI no signs of infection. CATHRYN drain with serosanguinous drainage. CT abdomen and pelvis ordered, Recent Impressions: CAT SCAN - CTA CHEST FOR PE 09/27 929 Report Impression - Status: SIGNED Entered: 09/28/2019 1006 IMPRESSION: 1. No evidence of pulmonary embolus. [...] collection. 5. No evidence of bowel obstruction Impression By: Cynthia Bone MD CAT SCAN - CT ABD PELVIS W/CONT 09/27 0930 Report Impression - Status: SIGNED Entered: 09/28/2019 1006 IMPRESSION: 1. No evidence of pulmonary embolus. [...] collection. 5. No evidence of bowel obstruction Impression By: Cynthia Bone MD RADIOLOGY - XR CHEST 1 V 09/27 1134 Report Impression - Status: SIGNED Entered: 09/28/2019 1145 IMPRESSION: 1. Patchy perihilar and basilar opacities compatible with areas of atelectasis and patchy bilateral consolidation. Impression By: Cynthia Bone MD ID was consulted for penumonia. Continue advance diet as toleated. Will keep CATHRYN drain in today at 1012 RPT #:[id number] END OF REPORT [facility] 2019-09-28 10:06:00 [facility] General Surgery Progress Note REPORT#:[id number] REPORT STATUS: Signed DATE:09/28/19 TIME: 1006 PATIENT: SEYMOUR SNOW UNIT #: [id number] ROOM/BED: [address] : 48 AGE: 69 SEX: M ATTEND: Lizzy Duke MD ADM AUTHOR: Rickey Glover MD R1 * ALL edits or amendments must be made on the electronic/computer document * Rickey Glover 09/28/19 1006: General Date of surgery: 09/25/19 Status post: Laparoscopic, converted to open cholecystectomy with drain placement Subjective Comments: Patient reports having a BM today. Reports tolerating his regular diet without nausea nor vomiting. Appears more tired and lethargic today. Denies any new pain , reports some abdominal discomfort when getting up out of bed. Seen taking small shallow breaths on his IS. Nurse reports him being SOB last night, oxygen NC started. ROS negative unless noted in above HPI of the following systems: constitutional, eyes, HENT, neck, neuro, CV, resp, GI, , msk, skin Objective General VS/I O: Last Documented: Result Date Time Pulse Ox 90 09/27 721 B/P 110/65 09/27 07 B/P Mean 79.7 09/27 721 O2 Delivery Nasal cannula 09/27 721 Temp 36.8 09/27 07 Pulse 78 09/27 0722 Resp 16 09/27 07 O2 Flow Rate 3.126024 09/26 2201 FiO2 21 09/25 1618 Vital Signs Date Temp Pulse Resp B/P B/P Mean Pulse Ox FiO2 09/26-09/27 36.8-37.7 70-99 16-26 102-128/64-76 77.6-93.6 90-97 24 hour I O ending at 0700: 09/27 0700 09/26 1900 Intake Total 1429.00 Output Total 650 45 Balance 779.00 -45 Intake, IV 709.00 Intake, Oral 720 Number Voids 1 3 Output, 50 45 Drainage Output, Urine 600 Patient 109.091 kg Weight Patient Weight Weight (lb): 240 Weight (oz): 8.07 Weight (kg): 109.091 Medications: Active Meds + DC'd Last 24 Hrs Diatrizoate Meglum/Diatrizoate Sod 30 ML ONCE PRN PO (DC) Iopamidol 100 ML ONCE PRN IV (DC) Sodium Chloride 50 ML ONCE PRN IV (DC) Metformin HCl 500 MG C BK DIN PO (DA) Sodium Chloride 1,000 ML .Q20H IV Enoxaparin Sodium 30 MG 0400,1600 SUBQ Oxycodone HCl 5 MG Q6H PRN PRN PO Piperacillin Sod/Tazobactam Sod 3.375 GM Q8H IV Sodium Chloride 100 ML Acetaminophen 975 MG Q8HR PO Methocarbamol 500 MG BID PO Hydromorphone HCl 0.5 MG Q4H PRN PRN IV Losartan Potassium 50 MG BID PO Pneumococcal 13-Valent Conj Vacc 0.5 ML ASDIR IM Dextrose/Water 25 ML ASDIR PRN IV Insulin Human Lispro LOW DOSE SCALE ASDIR SUBQ Morphine Sulfate 2 MG Q4H PRN PRN IV Ondansetron HCl 4 MG Q4H PRN PRN IV Nutrtion assessment: The data set between the solid lines has been imported from the dietitian's assessment. Any exceptions have been noted under Provider comments. BMI Calculated: 30.9 Nutrition related diagnosis: Nutrition diagnosis details: Nutrition problem: Nutrition etiology: Nutrition signs and symptoms: Nutrition prescription: Dietitian name: Assessment completed: Provider comments on imported dietitian assessment: Physical Exam General appearance: alert, awake, oriented Wound/incision: Location: RUQ, umbilicus Site condition: dressing intact (new dressing applied), edges approximated, Drain- serosanguinous fluid, no bilious fluid HEENT: anicteric, atraumatic, moist mucosal membranes Neck: full range of motion, non-tender, no masses or swelling Cardiovascular: normal capillary refill, normal heart sounds, normal S1/S2 Respiratory: clear to auscultation, equal breath sounds, symmetric expansion Abdomen: tenderness (RUQ to palpation), soft, no distention, Dressings are clean and dry at the umbilicus and RUQ Drain present in RUQ- serosanguinous Extremities: moves all, normal capillary refill, normal temperature Neuro/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: alert, oriented x 3, normal speech Skin: dry, intact, normal color Psychiatry: normal affect, normal judgment/insight, normal mood Results Findings/Data: Laboratory Tests 09/28/19437: [Embedded Image Not Available] Laboratory Tests 09/27 09/27 09/26 09/26 09/26 0605 0438 1920 1512 1055 Chemistry Sodium (137 - 145 mmol/L) 134 L Potassium (3.4 - 5.0 mmol/L) 3.8 Chloride (98 - 107 mmol/L) 101 Carbon Dioxide (22 - 30 mmol/L) 26 BUN (9 - 20 mg/dL) 12 Creatinine (0.7 - 1.3 mg/dL) 0.6 L Glomerular Filtr Rate (>60) 141 Glucose (74 - 106 mg/dL) 155 H POC Glucose (74 - 106 MG/DL) 179 H 212 H 204 H 239 H Calcium (8.4 - 10.2 mg/dL) 7.4 L Total Bilirubin (0.2 - 1.3 mg/dL) 2.4 H Conjugated Bilirubin (0 - 0.3 mg/dL) 0 Unconjugated Bilirubin (0 - 1.1 mg/dL) 1.2 H AST (15 - 46 U/L) 43 ALT (13 - 69 U/L) 45 Total Alk Phosphatase (38 - 126 U/L) 172 H Total Protein (6.3 - 8.2 g/dL) 5.9 L Albumin (3.5 - 5.0 g/dL) 2.8 L Laboratory Tests 09/27 437 Hematology WBC (5.0 - 12.0 x10 3/uL) 20.6 H RBC (4.70 - 6.10 x10 6/uL) 3.47 L Hgb (14.0 - 18.0 g/dL) 10.9 L Hct (37.0 - 49.0 %) 32.0 L MCV (80 - 94 fL) 92 MCH (27 - 31 pg) 31.4 H MCHC (33 - 37 g/dL) 34.1 RDW (11.5 - 15.5 %) 13.1 Plt Count (130 - 400 x10 3/uL) 227 MPV (9.4 - 16.4 fL) 9.6 Neut % (Auto) (43 - 65 %) 85.1 H Lymph % (Auto) (20.5 - 45.5 %) 9.0 L [place] % (Auto) (5.5 - 11.7 %) 3.7 L Eos % (Auto) (0.9 - 2.9 %) 0.7 L Baso % (Auto) (0.2 - 1.0 %) 0.3 Neut # (Auto) (2.2 - 4.8 x10 3/uL) 17.53 H Lymph # (Auto) (1.3 - 2.9 x10 3/uL) 1.86 [place] # (Auto) (0.3 - 0.8 x10 3/uL) 0.77 Eos # (Auto) (0.0 - 0.2 x10 3/uL) 0.15 Baso # (Auto) (0.0 - 0.1 x10 3/uL) 0.07 Immature Gran % (0.0 - 2.0 %) 1.2 Nucleated RBC % (0 - 1.0 %) 0.0 Radiology data: Recent Impressions: CAT SCAN - CTA CHEST FOR PE 09/27 929 Report Impression - Status: SIGNED Entered: 09/28/2019 100 IMPRESSION: 1. No evidence of pulmonary embolus. [...] collection. 5. No evidence of bowel obstruction Impression By: [email or web address] - Adolfo Bone MD CAT SCAN - CT ABD PELVIS W/CONT 09/27 929 Report Impression - Status: SIGNED Entered: 09/28/2019 100 IMPRESSION: 1. No evidence of pulmonary embolus. [...] collection. 5. No evidence of bowel obstruction Impression By: [email or web address] - Adolfo Bone MD Results: All labs and results reviewed by attending physician Diagnosis, Assessment Plan Free Text A P: ASSESSMENT: 69 y/o GANDHI POD 3 s/p laparsocopic, converted to open cholecystectomy. Reports having a BM today. Tolerating regular diet without nausea nor vomiting. Appears more tired today, persistently elevated WBC. Injuries/Acute Problems: -Cholecystitis Chronic Medical Problems/Comorbidities: -HTN -DM PLAN: CTA chest, CT abdomen pelvis- ordered due to persistent elevated WBC Leukocytosis noted; will continue to follow closely Continue Zosyn today Elevated direct bilirubinemia noted, will continue to follow Multimodel pain control, discontinued toradol Advanced to regular diet- monitor drain output for any bile OOB, regular ambulation Find incentive spirometer- IS usage- 10 /hr Will discuss imaging results with radiology L/D/A: PIV DVT prophylaxis: SCDs Lovenox GI prophylaxis: not indicated Diet: Regular diet Activity: OOB, ambulation, as tolerated Dispo: continue on medicine and we will cont. to follow. Code Status: FULL Attestations Attestation needed: teaching physician Judith Mccoy 09/28/19 1750: Attestations Teaching Physician Attestation F/U visit w/ resident: I saw the patient with the resident and . . . agree with the resident's findings and plan. Today pt appears more lethargic, started on O2 overnight. persistent elevated WBC, states that he had a BM today. Abdomen soft. Wounds CDI no signs of infection. CATHRYN drain with serosanguinous drainage. CT abdomen and pelvis ordered, Recent Impressions: CAT SCAN - CTA CHEST FOR PE 09/27 0930 Report Impression - Status: SIGNED Entered: 09/28/2019 1006 IMPRESSION: 1. No evidence of pulmonary embolus. [...] collection. 5. No evidence of bowel obstruction Impression By: [email or web address] Bone MD CAT SCAN - CT ABD PELVIS W/CONT 09/27 0930 Report Impression - Status: SIGNED Entered: 09/28/2019 1006 IMPRESSION: 1. No evidence of pulmonary embolus. [...] collection. 5. No evidence of bowel obstruction Impression By: Cynthia Bone MD RADIOLOGY - XR CHEST 1 V 09/27 1134 Report Impression - Status: SIGNED Entered: 09/28/2019 1145 IMPRESSION: 1. Patchy perihilar and basilar opacities compatible with areas of atelectasis and patchy bilateral consolidation. Impression By: Cynthia Bone MD ID was consulted for penumonia. Continue advance diet as toleated. Will keep CATHRYN drain in today at 1012 at 1816 RPT #:[id number] END OF REPORT [facility] 2019-09-28 09:04:00 [facility] REPORT#:[id number] REPORT STATUS: Signed DATE:09/28/19 TIME: 09 PATIENT: JAYLA SARAHSEYMOUR UNIT #: [id number] ROOM/BED: [address] : 48 AGE: 69 SEX: M ATTEND: Lizzy Duke MD ADM AUTHOR: Soto Hudson NP * ALL edits or amendments must be made on the electronic/computer document * Subjective Chief Complaint: abdominal pain weakness leukocytosis Review of Systems Constitutional: Reports: fatigue, fever, generalized weakness. Denies: chills. Skin: Denies: abrasion, bruising. Allergy/Immun: Denies: allergic reaction, anaphylaxis. Eyes: Denies: redness, discharge. ENT: Denies: sore throat. Respiratory: Reports: PRITCHARD (dyspnea on exertion). Denies: non productive cough, SOB, wheezing. Cardiovascular: Denies: chest pain, edema. GI: Reports: abdominal pain. Denies: constipation, diarrhea, nausea, vomiting. : Denies: dysuria, flank pain. Musculoskeletal: Denies: arthritis, extremity pain. Neuro: Denies: dizziness, headache. Psych: Denies: agitation, anxiety. Objective General VS/I O: Vital Signs: Date Time Temp Pulse Resp B/P B/P Pulse O2 O2 Flow FiO2 Mean Ox Delivery Rate 09/27 0722 36.8 78 16 110/65 79.7 90 Nasal cannula 09/27 0401 37.3 70 18 128/76 93.6 97 Nasal cannula 09/27 0042 37.7 90 20 122/72 88.9 97 Nasal cannula 09/26 2201 Nasal 3.523004 cannula 09/26 1923 37.0 88 18 109/64 78.6 92 Nasal cannula 09/26 1524 Nasal 3.053129 cannula 09/26 1513 37.7 99 26 107/67 79.9 91 Nasal cannula 09/26 1058 36.8 85 18 102/66 77.6 90 Room air 24 hour I O ending at 0700: 09/27 0700 09/26 1900 Intake Total 1429.00 Output Total 650 45 Balance 779.00 -45 Intake, IV 709.00 Intake, Oral 720 Number Voids 1 3 Output, 50 45 Drainage Output, Urine 600 Patient 109.091 kg Weight Patient Weight Weight (lb): 240 Weight (oz): 8.07 Weight (kg): 109.091 Medications: Active Meds + DC'd Last 24 Hrs Metformin HCl 500 MG C BK DIN PO Sodium Chloride 1,000 ML .Q20H IV Enoxaparin Sodium 30 MG 0400,1600 SUBQ Oxycodone HCl 5 MG Q6H PRN PRN PO Piperacillin Sod/Tazobactam Sod 3.375 GM Q8H IV Sodium Chloride 100 ML Acetaminophen 975 MG Q8HR PO Methocarbamol 500 MG BID PO Hydromorphone HCl 0.5 MG Q4H PRN PRN IV Losartan Potassium 50 MG BID PO Pneumococcal 13-Valent Conj Vacc 0.5 ML ASDIR IM Dextrose/Water 25 ML ASDIR PRN IV Insulin Human Lispro LOW DOSE SCALE ASDIR SUBQ Morphine Sulfate 2 MG Q4H PRN PRN IV Ondansetron HCl 4 MG Q4H PRN PRN IV Physical Exam General appearance: obese, alert, awake, oriented, no acute distress Head/Eyes: normal conjunctiva/sclera ENT: moist mucosal membranes Neck: full range of motion, non-tender, no JVD Cardiovascular: regular rate rhythm Respiratory: aerating well, no distress Abdomen: obese, tenderness, no distention, abdominal dressing in place, drain to R quad Genitourinary: no bladder distention Extremities: no clubbing, no cyanosis, no edema Musculoskeletal: normal inspection Neuro/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: alert, oriented X 3, normal speech Skin: no rash, see above Psychiatry: normal affect, normal judgment/insight, normal mood Results Findings/Data: Laboratory Tests 09/27 09/27 09/26 09/26 09/26 0605 0438 1920 1512 1055 Chemistry Sodium (137 - 145 mmol/L) 134 L Potassium (3.4 - 5.0 mmol/L) 3.8 Chloride (98 - 107 mmol/L) 101 Carbon Dioxide (22 - 30 mmol/L) 26 BUN (9 - 20 mg/dL) 12 Creatinine (0.7 - 1.3 mg/dL) 0.6 L Glomerular Filtr Rate (>60) 141 Glucose (74 - 106 mg/dL) 155 H POC Glucose (74 - 106 MG/DL) 179 H 212 H 204 H 239 H Calcium (8.4 - 10.2 mg/dL) 7.4 L Total Bilirubin (0.2 - 1.3 mg/dL) 2.4 H Conjugated Bilirubin (0 - 0.3 mg/dL) 0 Unconjugated Bilirubin (0 - 1.1 mg/dL) 1.2 H AST (15 - 46 U/L) 43 ALT (13 - 69 U/L) 45 Total Alk Phosphatase (38 - 126 U/L) 172 H Total Protein (6.3 - 8.2 g/dL) 5.9 L Albumin (3.5 - 5.0 g/dL) 2.8 L Laboratory Tests 09/27 0438 Hematology WBC (5.0 - 12.0 x10 3/uL) 20.6 H RBC (4.70 - 6.10 x10 6/uL) 3.47 L Hgb (14.0 - 18.0 g/dL) 10.9 L Hct (37.0 - 49.0 %) 32.0 L MCV (80 - 94 fL) 92 MCH (27 - 31 pg) 31.4 H MCHC (33 - 37 g/dL) 34.1 RDW (11.5 - 15.5 %) 13.1 Plt Count (130 - 400 x10 3/uL) 227 MPV (9.4 - 16.4 fL) 9.6 Neut % (Auto) (43 - 65 %) 85.1 H Lymph % (Auto) (20.5 - 45.5 %) 9.0 L [place] % (Auto) (5.5 - 11.7 %) 3.7 L Eos % (Auto) (0.9 - 2.9 %) 0.7 L Baso % (Auto) (0.2 - 1.0 %) 0.3 Neut # (Auto) (2.2 - 4.8 x10 3/uL) 17.53 H Lymph # (Auto) (1.3 - 2.9 x10 3/uL) 1.86 [place] # (Auto) (0.3 - 0.8 x10 3/uL) 0.77 Eos # (Auto) (0.0 - 0.2 x10 3/uL) 0.15 Baso # (Auto) (0.0 - 0.1 x10 3/uL) 0.07 Immature Gran % (0.0 - 2.0 %) 1.2 Nucleated RBC % (0 - 1.0 %) 0.0 Results: labs reviewed, vital signs stable, current med profile rev'd Diagnosis, Assessment Plan Free Text DxA P Notes Free text DxA P notes: 69yo M admitted for management of cholecystitis. #Cholecystitis: VARUN s/p lap mag(09/24) -continue management per general surgery consult sevice #Elevated LFTs -monitor trend #T2DM: hyperglycemic; A1c 9.5 -continues on metformin, continue PRN SSI #HTN: stable off ARB -continue supportive care #Obesity: BMI > 30 -ensure low salt DM diet < 2000 kcal #HLD: ASCVD > 7.5% -consider statin initiation prior to DC, pending improvement in LFTs #Fever, leukocytosis -obtain CXR -obtain PCT -consult ID for further recommendations -continues on zosyn #Dispo: DC pending clinical recovery. Encouraged IS use, ambulation; pt verbalized understanding. PT/OT evals to mobilize. Attestations Attestation needed: supervising physician at 1754 RPT #:[id number] END OF REPORT [facility] 2019-09-28 09:04:00 [facility] REPORT#:[id number] REPORT STATUS: Signed DATE:09/28/19 TIME: 09 PATIENT: SEYMOUR SNOW UNIT #: [id number] ROOM/BED: [address] : 48 AGE: 69 SEX: M ATTEND: Lizzy Duke MD ADM AUTHOR: Soto Hudson NP * ALL edits or amendments must be made on the electronic/computer document * Subjective Chief Complaint: abdominal pain weakness leukocytosis Review of Systems Constitutional: Reports: fatigue, fever, generalized weakness. Denies: chills. Skin: Denies: abrasion, bruising. Allergy/Immun: Denies: allergic reaction, anaphylaxis. Eyes: Denies: redness, discharge. ENT: Denies: sore throat. Respiratory: Reports: PRITCHARD (dyspnea on exertion). Denies: non productive cough, SOB, wheezing. Cardiovascular: Denies: chest pain, edema. GI: Reports: abdominal pain. Denies: constipation, diarrhea, nausea, vomiting. : Denies: dysuria, flank pain. Musculoskeletal: Denies: arthritis, extremity pain. Neuro: Denies: dizziness, headache. Psych: Denies: agitation, anxiety. Objective General VS/I O: Vital Signs: Date Time Temp Pulse Resp B/P B/P Pulse O2 O2 Flow FiO2 Mean Ox Delivery Rate 09/27 0722 36.8 78 16 110/65 79.7 90 Nasal cannula 09/27 0401 37.3 70 18 128/76 93.6 97 Nasal cannula 09/27 0042 37.7 90 20 122/72 88.9 97 Nasal cannula 09/26 2201 Nasal 3.189773 cannula 09/26 1923 37.0 88 18 109/64 78.6 92 Nasal cannula 09/26 1524 Nasal 3.244939 cannula 09/26 1513 37.7 99 26 107/67 79.9 91 Nasal cannula 09/26 1058 36.8 85 18 102/66 77.6 90 Room air 24 hour I O ending at 0700: 09/27 0700 09/26 1900 Intake Total 1429.00 Output Total 650 45 Balance 779.00 -45 Intake, IV 709.00 Intake, Oral 720 Number Voids 1 3 Output, 50 45 Drainage Output, Urine 600 Patient 109.091 kg Weight Patient Weight Weight (lb): 240 Weight (oz): 8.07 Weight (kg): 109.091 Medications: Active Meds + DC'd Last 24 Hrs Metformin HCl 500 MG C BK DIN PO Sodium Chloride 1,000 ML .Q20H IV Enoxaparin Sodium 30 MG 0400,1600 SUBQ Oxycodone HCl 5 MG Q6H PRN PRN PO Piperacillin Sod/Tazobactam Sod 3.375 GM Q8H IV Sodium Chloride 100 ML Acetaminophen 975 MG Q8HR PO Methocarbamol 500 MG BID PO Hydromorphone HCl 0.5 MG Q4H PRN PRN IV Losartan Potassium 50 MG BID PO Pneumococcal 13-Valent Conj Vacc 0.5 ML ASDIR IM Dextrose/Water 25 ML ASDIR PRN IV Insulin Human Lispro LOW DOSE SCALE ASDIR SUBQ Morphine Sulfate 2 MG Q4H PRN PRN IV Ondansetron HCl 4 MG Q4H PRN PRN IV Physical Exam General appearance: obese, alert, awake, oriented, no acute distress Head/Eyes: normal conjunctiva/sclera ENT: moist mucosal membranes Neck: full range of motion, non-tender, no JVD Cardiovascular: regular rate rhythm Respiratory: aerating well, no distress Abdomen: obese, tenderness, no distention, abdominal dressing in place, drain to R quad Genitourinary: no bladder distention Extremities: no clubbing, no cyanosis, no edema Musculoskeletal: normal inspection Neuro/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: alert, oriented X 3, normal speech Skin: no rash, see above Psychiatry: normal affect, normal judgment/insight, normal mood Results Findings/Data: Laboratory Tests 09/27 09/27 09/26 09/26 09/26 0605 0438 1920 1512 1055 Chemistry Sodium (137 - 145 mmol/L) 134 L Potassium (3.4 - 5.0 mmol/L) 3.8 Chloride (98 - 107 mmol/L) 101 Carbon Dioxide (22 - 30 mmol/L) 26 BUN (9 - 20 mg/dL) 12 Creatinine (0.7 - 1.3 mg/dL) 0.6 L Glomerular Filtr Rate (>60) 141 Glucose (74 - 106 mg/dL) 155 H POC Glucose (74 - 106 MG/DL) 179 H 212 H 204 H 239 H Calcium (8.4 - 10.2 mg/dL) 7.4 L Total Bilirubin (0.2 - 1.3 mg/dL) 2.4 H Conjugated Bilirubin (0 - 0.3 mg/dL) 0 Unconjugated Bilirubin (0 - 1.1 mg/dL) 1.2 H AST (15 - 46 U/L) 43 ALT (13 - 69 U/L) 45 Total Alk Phosphatase (38 - 126 U/L) 172 H Total Protein (6.3 - 8.2 g/dL) 5.9 L Albumin (3.5 - 5.0 g/dL) 2.8 L Laboratory Tests 09/27 0438 Hematology WBC (5.0 - 12.0 x10 3/uL) 20.6 H RBC (4.70 - 6.10 x10 6/uL) 3.47 L Hgb (14.0 - 18.0 g/dL) 10.9 L Hct (37.0 - 49.0 %) 32.0 L MCV (80 - 94 fL) 92 MCH (27 - 31 pg) 31.4 H MCHC (33 - 37 g/dL) 34.1 RDW (11.5 - 15.5 %) 13.1 Plt Count (130 - 400 x10 3/uL) 227 MPV (9.4 - 16.4 fL) 9.6 Neut % (Auto) (43 - 65 %) 85.1 H Lymph % (Auto) (20.5 - 45.5 %) 9.0 L [place] % (Auto) (5.5 - 11.7 %) 3.7 L Eos % (Auto) (0.9 - 2.9 %) 0.7 L Baso % (Auto) (0.2 - 1.0 %) 0.3 Neut # (Auto) (2.2 - 4.8 x10 3/uL) 17.53 H Lymph # (Auto) (1.3 - 2.9 x10 3/uL) 1.86 [place] # (Auto) (0.3 - 0.8 x10 3/uL) 0.77 Eos # (Auto) (0.0 - 0.2 x10 3/uL) 0.15 Baso # (Auto) (0.0 - 0.1 x10 3/uL) 0.07 Immature Gran % (0.0 - 2.0 %) 1.2 Nucleated RBC % (0 - 1.0 %) 0.0 Results: labs reviewed, vital signs stable, current med profile rev'd Diagnosis, Assessment Plan Free Text DxA P Notes Free text DxA P notes: 69yo M admitted for management of cholecystitis. #Cholecystitis: VARUN s/p lap mag(09/24) -continue management per general surgery consult sevice #Elevated LFTs -monitor trend #T2DM: hyperglycemic; A1c 9.5 -continues on metformin, continue PRN SSI #HTN: stable off ARB -continue supportive care #Obesity: BMI > 30 -ensure low salt DM diet < 2000 kcal #HLD: ASCVD > 7.5% -consider statin initiation prior to DC, pending improvement in LFTs #Fever, leukocytosis -obtain CXR -obtain PCT -consult ID for further recommendations -continues on zosyn #Dispo: DC pending clinical recovery. Encouraged IS use, ambulation; pt verbalized understanding. PT/OT evals to mobilize. Attestations Attestation needed: supervising physician at 1753 at 1357 RPT #:[id number] END OF REPORT [facility] 2019-09-27 16:48:00 [facility] REPORT#:[id number] REPORT STATUS: Signed DATE:09/27/19 TIME: 1647 PATIENT: SEYMOUR SNOW UNIT #: [id number] ROOM/BED: [address] : 48 AGE: 69 SEX: M ATTEND: Lizzy Duke MD ADM AUTHOR: Mariana Siegel * ALL edits or amendments must be made on the electronic/computer document * Subjective Chief Complaint: abdominal pain Comments: Interval Hx: VARUN overnight Objective General VS/I O: Vital Signs: Date Time Temp Pulse Resp B/P B/P Pulse O2 O2 Flow FiO2 Mean Ox Delivery Rate 09/26 1524 Nasal 3.133686 cannula 09/26 1513 99.9 99 26 107/67 79.9 91 Nasal cannula 09/26 1058 98.2 85 18 102/66 77.6 90 Room air 09/26 0725 98.1 86 15 94/58 69.8 90 Room air 09/26 0422 99.9 91 20 114/74 87.2 94 Nasal cannula 09/26 0002 97.7 94 18 93/60 71.2 94 Nasal cannula 09/25 2302 98.1 98 16 97/61 73.1 93 Nasal cannula 09/25 1921 100.4 110 18 123/79 93.9 91 Nasal cannula 24 hour I O ending at 0700: 09/26 0700 09/25 1900 Intake Total 1020.00 Output Total 430 140 Balance 590.00 -140 Intake, IV 700.00 Intake, Oral 320 Number Voids 3 Output, 30 140 Drainage Output, Urine 400 Patient Weight Weight (lb): 240 Weight (oz): 8.07 Weight (kg): 109.091 Medications: Active Meds + DC'd Last 24 Hrs Metformin HCl 500 MG C BK DIN PO Sodium Chloride 1,000 ML .Q20H IV Enoxaparin Sodium 30 MG 0400,1600 SUBQ Sodium Chloride 1,000 ML .[id number] IV (DC) Oxycodone HCl 5 MG Q6H PRN PRN PO Piperacillin Sod/Tazobactam Sod 3.375 GM Q8H IV Sodium Chloride 100 ML Acetaminophen 975 MG Q8HR PO Methocarbamol 500 MG BID PO Hydromorphone HCl 0.5 MG Q4H PRN PRN IV Losartan Potassium 50 MG BID PO Pneumococcal 13-Valent Conj Vacc 0.5 ML ASDIR IM Dextrose/Water 25 ML ASDIR PRN IV Insulin Human Lispro LOW DOSE SCALE ASDIR SUBQ Morphine Sulfate 2 MG Q4H PRN PRN IV Ondansetron HCl 4 MG Q4H PRN PRN IV Physical Exam General appearance: alert, awake, no acute distress, conversational, no respiratory distress Head/Eyes: atraumatic, normocephalic, PERRLA Neck: full range of motion, non-tender, no JVD Cardiovascular: normal heart sounds, no gallop, no murmur, no rub Respiratory: aerating well, symmetric expansion, no distress Abdomen: obese, tenderness, no distention Extremities: moves all Neuro/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: alert, oriented X 3, CNII-XII intact, normal speech Skin: dry, intact Psychiatry: not homicidal, not suicidal, no hallucinations Results Findings/Data: Laboratory Tests 09/26 09/26 09/26 09/26 09/25 1512 1055 0559 0353 1922 Chemistry Sodium (137 - 145 mmol/L) 132 L Potassium (3.4 - 5.0 mmol/L) 4.0 Chloride (98 - 107 mmol/L) 99 Carbon Dioxide (22 - 30 mmol/L) 25 BUN (9 - 20 mg/dL) 16 Creatinine (0.7 - 1.3 mg/dL) 1.0 Glomerular Filtr Rate (>60) 78 Glucose (74 - 106 mg/dL) 166 H POC Glucose (74 - 106 MG/DL) 204 H 239 H 174 H 247 H Calcium (8.4 - 10.2 mg/dL) 7.5 L Total Bilirubin (0.2 - 1.3 mg/dL) 2.3 H Conjugated Bilirubin (0 - 0.3 mg/dL) 0 Unconjugated Bilirubin (0 - 1.1 mg/dL) 1.1 AST (15 - 46 U/L) 59 H ALT (13 - 69 U/L) 64 Total Alk Phosphatase (38 - 126 U/L) 186 H Total Protein (6.3 - 8.2 g/dL) 6.2 L Albumin (3.5 - 5.0 g/dL) 2.9 L Laboratory Tests 09/26 0353 Hematology WBC (5.0 - 12.0 x10 3/uL) 21.4 H RBC (4.70 - 6.10 x10 6/uL) 3.72 L Hgb (14.0 - 18.0 g/dL) 11.5 L Hct (37.0 - 49.0 %) 34.7 L MCV (80 - 94 fL) 93 MCH (27 - 31 pg) 30.9 MCHC (33 - 37 g/dL) 33.1 RDW (11.5 - 15.5 %) 13.2 Plt Count (130 - 400 x10 3/uL) 247 MPV (9.4 - 16.4 fL) 9.9 Neut % (Auto) (43 - 65 %) 85.7 H Lymph % (Auto) (20.5 - 45.5 %) 9.0 L [place] % (Auto) (5.5 - 11.7 %) 3.7 L Eos % (Auto) (0.9 - 2.9 %) 0.5 L Baso % (Auto) (0.2 - 1.0 %) 0.3 Neut # (Auto) (2.2 - 4.8 x10 3/uL) 18.38 H Lymph # (Auto) (1.3 - 2.9 x10 3/uL) 1.92 [place] # (Auto) (0.3 - 0.8 x10 3/uL) 0.80 Eos # (Auto) (0.0 - 0.2 x10 3/uL) 0.10 Baso # (Auto) (0.0 - 0.1 x10 3/uL) 0.06 Immature Gran % (0.0 - 2.0 %) 0.8 Nucleated RBC % (0 - 1.0 %) 0.0 Diagnosis, Assessment Plan Plan discussed with: patient, consultants, nurse, interdisc care team Free Text DxA P Notes Free text DxA P notes: 69yo M admitted for management of cholecystitis. #Cholecystitis: VARUN s/p lap mag(09/24) -continue management per general surgery consult sevice #T2DM: stable FSG; A1c 9.5 -continue metformin w/ PRN SSI #HTN: stable off ARB -continue supportive care #Obesity: BMI > 30 -ensure low salt DM diet < 2000 kcal #HLD: ASCVD > 7.5% -consider statin initiation prior to DC #Dispo: DC pending drain DC PO intake toleration -hospital medicine will continue to follow at 1411 RPT #[id number] END OF REPORT [facility] 2019-09-27 11:41:00 [facility]) General Surgery Progress Note REPORT#:[id number] REPORT STATUS: Signed DATE:09/27/19 TIME: 1141 PATIENT: SEYMOUR SNOW UNIT #: [id number] ROOM/BED: [address] : 48 AGE: 69 SEX: M ATTEND: Lizzy Duke MD ADM AUTHOR: Rickey Glover MD R1 * ALL edits or amendments must be made on the electronic/computer document * General Date of surgery: 09/25/19 Status post: Laparoscopic, converted to open cholecystectomy with drain placement Subjective Comments: Patient reports passing gas this morning but no BM. Was seen ambulating this morning in his room. Tolerating his diet without nausea nor vomiting. Reports pain is controlled. Lost his IS earlier yesterday. ROS negative unless noted in above HPI of the following systems: constitutional, eyes, HENT, neck, neuro, CV, resp, GI, , msk, skin Objective General VS/I O: Last Documented: Result Date Time Pulse Ox 90 09/26 1058 B/P 102/66 09/26 1058 B/P Mean 77.6 09/26 1058 O2 Delivery Room air 09/26 1058 Temp 36.8 09/26 1058 Pulse 85 09/26 1058 Resp 18 09/26 1058 FiO2 21 09/25 1618 O2 Flow Rate 10.148972 09/24 1905 Vital Signs Date Temp Pulse Resp B/P B/P Mean Pulse Ox FiO2 09/25-09/26 36.5-38.0 85-110 15-20 93-123/58-79 69.8-93.9 90-94 21 24 hour I O ending at 0700: 09/26 0700 09/25 1900 Intake Total 1020.00 Output Total 430 140 Balance 590.00 -140 Intake, IV 700.00 Intake, Oral 320 Number Voids 3 Output, 30 140 Drainage Output, Urine 400 Patient Weight Weight (lb): 240 Weight (oz): 8.07 Weight (kg): 109.091 Medications: Active Meds + DC'd Last 24 Hrs Metformin HCl 500 MG C BK DIN PO Sodium Chloride 1,000 ML .Q20H IV Enoxaparin Sodium 30 MG 0400,1600 SUBQ Sodium Chloride 1,000 ML .[id number] IV (DC) Hydrocodone Bitart/Acetaminophen 1 TAB Q6H PRN PRN PO (DC) Oxycodone HCl 5 MG Q6H PRN PRN PO Piperacillin Sod/Tazobactam Sod 3.375 GM Q8H IV Sodium Chloride 100 ML Acetaminophen 975 MG Q8HR PO Methocarbamol 500 MG BID PO Hydromorphone HCl 0.5 MG Q4H PRN PRN IV Losartan Potassium 50 MG BID PO Pneumococcal 13-Valent Conj Vacc 0.5 ML ASDIR IM Dextrose/Sodium Chloride 1,000 ML .[id number] IV (DC) Dextrose/Water 25 ML ASDIR PRN IV Insulin Human Lispro LOW DOSE SCALE ASDIR SUBQ Morphine Sulfate 2 MG Q4H PRN PRN IV Ondansetron HCl 4 MG Q4H PRN PRN IV Nutrtion assessment: The data set between the solid lines has been imported from the dietitian's assessment. Any exceptions have been noted under Provider comments. BMI Calculated: 30.9 Nutrition related diagnosis: Nutrition diagnosis details: Nutrition problem: Nutrition etiology: Nutrition signs and symptoms: Nutrition prescription: Dietitian name: Assessment completed: Provider comments on imported dietitian assessment: Physical Exam General appearance: alert, awake, oriented Wound/incision: Location: RUQ, umbilicus Site condition: dressing intact, edges approximated, Drain- serosanguinous fluid HEENT: anicteric, atraumatic, moist mucosal membranes Neck: full range of motion, non-tender, no masses or swelling Cardiovascular: normal capillary refill, normal heart sounds, normal S1/S2 Respiratory: aerating well, clear to auscultation, equal breath sounds Abdomen: tenderness (RUQ to palpation), soft, no distention, Dressings are clean and dry at the umbilicus and RUQ Drain present in RUQ- serosanguinous Extremities: moves all, normal capillary refill, normal temperature Neuro/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: alert, oriented x 3, normal speech Skin: dry, intact, normal color Psychiatry: normal affect, normal judgment/insight, normal mood Results Findings/Data: Laboratory Tests 09/27/19 035: [Embedded Image Not Available] Laboratory Tests 09/26 09/26 09/26 09/25 09/25 1055 0559 0353 1922 1528 Chemistry Sodium (137 - 145 mmol/L) 132 L Potassium (3.4 - 5.0 mmol/L) 4.0 Chloride (98 - 107 mmol/L) 99 Carbon Dioxide (22 - 30 mmol/L) 25 BUN (9 - 20 mg/dL) 16 Creatinine (0.7 - 1.3 mg/dL) 1.0 Glomerular Filtr Rate (>60) 78 Glucose (74 - 106 mg/dL) 166 H POC Glucose (74 - 106 MG/DL) 239 H 174 H 247 H 221 H Calcium (8.4 - 10.2 mg/dL) 7.5 L Total Bilirubin (0.2 - 1.3 mg/dL) 2.3 H Conjugated Bilirubin (0 - 0.3 mg/dL) 0 Unconjugated Bilirubin (0 - 1.1 mg/dL) 1.1 AST (15 - 46 U/L) 59 H ALT (13 - 69 U/L) 64 Total Alk Phosphatase (38 - 126 U/L) 186 H Total Protein (6.3 - 8.2 g/dL) 6.2 L Albumin (3.5 - 5.0 g/dL) 2.9 L Laboratory Tests 09/26 352 Hematology WBC (5.0 - 12.0 x10 3/uL) 21.4 H RBC (4.70 - 6.10 x10 6/uL) 3.72 L Hgb (14.0 - 18.0 g/dL) 11.5 L Hct (37.0 - 49.0 %) 34.7 L MCV (80 - 94 fL) 93 MCH (27 - 31 pg) 30.9 MCHC (33 - 37 g/dL) 33.1 RDW (11.5 - 15.5 %) 13.2 Plt Count (130 - 400 x10 3/uL) 247 MPV (9.4 - 16.4 fL) 9.9 Neut % (Auto) (43 - 65 %) 85.7 H Lymph % (Auto) (20.5 - 45.5 %) 9.0 L [place] % (Auto) (5.5 - 11.7 %) 3.7 L Eos % (Auto) (0.9 - 2.9 %) 0.5 L Baso % (Auto) (0.2 - 1.0 %) 0.3 Neut # (Auto) (2.2 - 4.8 x10 3/uL) 18.38 H Lymph # (Auto) (1.3 - 2.9 x10 3/uL) 1.92 [place] # (Auto) (0.3 - 0.8 x10 3/uL) 0.80 Eos # (Auto) (0.0 - 0.2 x10 3/uL) 0.10 Baso # (Auto) (0.0 - 0.1 x10 3/uL) 0.06 Immature Gran % (0.0 - 2.0 %) 0.8 Nucleated RBC % (0 - 1.0 %) 0.0 Results: All labs and results reviewed by attending physician Diagnosis, Assessment Plan Free Text A P: ASSESSMENT: 69 y/o GANDHI POD 2 s/p laparsocopic, converted to open cholecystectomy. Pain is controlled, tolerating CLD without nausea nor vomiting. Reports passing gas today Injuries/Acute Problems: -Cholecystitis Chronic Medical Problems/Comorbidities: -HTN -DM PLAN: Leukocytosis noted; will continue to follow closely Cont. Rocephin IV until tomorrow 09/28/19 and IVF Elevated direct bilirubinemia noted, will continue to follow Multimodel pain control, discontinued toradol Advance to regular diet- monitor drain output for any bile OOB, regular ambulation Find incentive spirometer- IS usage- 10 /hr Will follow up tomorrow L/D/A: PIV DVT prophylaxis: SCDs Lovenox GI prophylaxis: not indicated Diet: Regular diet Activity: OOB, ambulation, as tolerated Dispo: continue on medicine and we will cont. to follow. Code Status: FULL Attestations Attestation needed: teaching physician at 1146 RPT #:[id number] END OF REPORT [facility] 2019-09-27 11:41:00 ([facility]) General Surgery Progress Note REPORT#:[id number] REPORT STATUS: Signed DATE:09/27/19 TIME: 1141 PATIENT: SEYMOUR SNOW UNIT #: [id number] ROOM/BED: [address] : 48 AGE: 69 SEX: M ATTEND: Lizzy Duke MD ADM AUTHOR: Rickey Glover MD R1 * ALL edits or amendments must be made on the electronic/computer document * Rickey Glover 09/27/19 1141: General Date of surgery: 09/25/19 Status post: Laparoscopic, converted to open cholecystectomy with drain placement Subjective Comments: Patient reports passing gas this morning but no BM. Was seen ambulating this morning in his room. Tolerating his diet without nausea nor vomiting. Reports pain is controlled. Lost his IS earlier yesterday. ROS negative unless noted in above HPI of the following systems: constitutional, eyes, HENT, neck, neuro, CV, resp, GI, , msk, skin Objective General VS/I O: Last Documented: Result Date Time Pulse Ox 90 09/26 1058 B/P 102/66 09/26 1058 B/P Mean 77.6 09/26 1058 O2 Delivery Room air 09/26 1058 Temp 36.8 09/26 1058 Pulse 85 09/26 1058 Resp 18 09/26 1058 FiO2 21 09/25 1618 O2 Flow Rate 10.851296 09/24 1905 Vital Signs Date Temp Pulse Resp B/P B/P Mean Pulse Ox FiO2 09/25-09/26 36.5-38.0 85-110 15-20 93-123/58-79 69.8-93.9 90-94 21 24 hour I O ending at 0700: 09/26 0700 09/25 1900 Intake Total 1020.00 Output Total 430 140 Balance 590.00 -140 Intake, IV 700.00 Intake, Oral 320 Number Voids 3 Output, 30 140 Drainage Output, Urine 400 Patient Weight Weight (lb): 240 Weight (oz): 8.07 Weight (kg): 109.091 Medications: Active Meds + DC'd Last 24 Hrs Metformin HCl 500 MG C BK DIN PO Sodium Chloride 1,000 ML .Q20H IV Enoxaparin Sodium 30 MG 0400,1600 SUBQ Sodium Chloride 1,000 ML .[id number] IV (DC) Hydrocodone Bitart/Acetaminophen 1 TAB Q6H PRN PRN PO (DC) Oxycodone HCl 5 MG Q6H PRN PRN PO Piperacillin Sod/Tazobactam Sod 3.375 GM Q8H IV Sodium Chloride 100 ML Acetaminophen 975 MG Q8HR PO Methocarbamol 500 MG BID PO Hydromorphone HCl 0.5 MG Q4H PRN PRN IV Losartan Potassium 50 MG BID PO Pneumococcal 13-Valent Conj Vacc 0.5 ML ASDIR IM Dextrose/Sodium Chloride 1,000 ML .[id number] IV (DC) Dextrose/Water 25 ML ASDIR PRN IV Insulin Human Lispro LOW DOSE SCALE ASDIR SUBQ Morphine Sulfate 2 MG Q4H PRN PRN IV Ondansetron HCl 4 MG Q4H PRN PRN IV Nutrtion assessment: The data set between the solid lines has been imported from the dietitian's assessment. Any exceptions have been noted under Provider comments. BMI Calculated: 30.9 Nutrition related diagnosis: Nutrition diagnosis details: Nutrition problem: Nutrition etiology: Nutrition signs and symptoms: Nutrition prescription: Dietitian name: Assessment completed: Provider comments on imported dietitian assessment: Physical Exam General appearance: alert, awake, oriented Wound/incision: Location: RUQ, umbilicus Site condition: dressing intact, edges approximated, Drain- serosanguinous fluid HEENT: anicteric, atraumatic, moist mucosal membranes Neck: full range of motion, non-tender, no masses or swelling Cardiovascular: normal capillary refill, normal heart sounds, normal S1/S2 Respiratory: aerating well, clear to auscultation, equal breath sounds Abdomen: tenderness (RUQ to palpation), soft, no distention, Dressings are clean and dry at the umbilicus and RUQ Drain present in RUQ- serosanguinous Extremities: moves all, normal capillary refill, normal temperature Neuro/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: alert, oriented x 3, normal speech Skin: dry, intact, normal color Psychiatry: normal affect, normal judgment/insight, normal mood Results Findings/Data: Laboratory Tests 09/27/19 0353: [Embedded Image Not Available] Laboratory Tests 09/26 09/26 09/26 09/25 09/25 1055 0559 0353 1922 1528 Chemistry Sodium (137 - 145 mmol/L) 132 L Potassium (3.4 - 5.0 mmol/L) 4.0 Chloride (98 - 107 mmol/L) 99 Carbon Dioxide (22 - 30 mmol/L) 25 BUN (9 - 20 mg/dL) 16 Creatinine (0.7 - 1.3 mg/dL) 1.0 Glomerular Filtr Rate (>60) 78 Glucose (74 - 106 mg/dL) 166 H POC Glucose (74 - 106 MG/DL) 239 H 174 H 247 H 221 H Calcium (8.4 - 10.2 mg/dL) 7.5 L Total Bilirubin (0.2 - 1.3 mg/dL) 2.3 H Conjugated Bilirubin (0 - 0.3 mg/dL) 0 Unconjugated Bilirubin (0 - 1.1 mg/dL) 1.1 AST (15 - 46 U/L) 59 H ALT (13 - 69 U/L) 64 Total Alk Phosphatase (38 - 126 U/L) 186 H Total Protein (6.3 - 8.2 g/dL) 6.2 L Albumin (3.5 - 5.0 g/dL) 2.9 L Laboratory Tests 09/26 674 Hematology WBC (5.0 - 12.0 x10 3/uL) 21.4 H RBC (4.70 - 6.10 x10 6/uL) 3.72 L Hgb (14.0 - 18.0 g/dL) 11.5 L Hct (37.0 - 49.0 %) 34.7 L MCV (80 - 94 fL) 93 MCH (27 - 31 pg) 30.9 MCHC (33 - 37 g/dL) 33.1 RDW (11.5 - 15.5 %) 13.2 Plt Count (130 - 400 x10 3/uL) 247 MPV (9.4 - 16.4 fL) 9.9 Neut % (Auto) (43 - 65 %) 85.7 H Lymph % (Auto) (20.5 - 45.5 %) 9.0 L [place] % (Auto) (5.5 - 11.7 %) 3.7 L Eos % (Auto) (0.9 - 2.9 %) 0.5 L Baso % (Auto) (0.2 - 1.0 %) 0.3 Neut # (Auto) (2.2 - 4.8 x10 3/uL) 18.38 H Lymph # (Auto) (1.3 - 2.9 x10 3/uL) 1.92 [place] # (Auto) (0.3 - 0.8 x10 3/uL) 0.80 Eos # (Auto) (0.0 - 0.2 x10 3/uL) 0.10 Baso # (Auto) (0.0 - 0.1 x10 3/uL) 0.06 Immature Gran % (0.0 - 2.0 %) 0.8 Nucleated RBC % (0 - 1.0 %) 0.0 Results: All labs and results reviewed by attending physician Diagnosis, Assessment Plan Free Text A P: ASSESSMENT: 69 y/o GANDHI POD 2 s/p laparsocopic, converted to open cholecystectomy. Pain is controlled, tolerating CLD without nausea nor vomiting. Reports passing gas today Injuries/Acute Problems: -Cholecystitis Chronic Medical Problems/Comorbidities: -HTN -DM PLAN: Leukocytosis noted; will continue to follow closely Cont. Rocephin IV until tomorrow 09/28/19 and IVF Elevated direct bilirubinemia noted, will continue to follow Multimodel pain control, discontinued toradol Advance to regular diet- monitor drain output for any bile OOB, regular ambulation Find incentive spirometer- IS usage- 10 /hr Will follow up tomorrow L/D/A: PIV DVT prophylaxis: SCDs Lovenox GI prophylaxis: not indicated Diet: Regular diet Activity: OOB, ambulation, as tolerated Dispo: continue on medicine and we will cont. to follow. Code Status: FULL Attestations Attestation needed: teaching physician Judith Mccoy 09/27/19 1647: Attestations Teaching Physician Attestation F/U visit w/ resident: I saw the patient with the resident and . . . agree with the resident's findings and plan. Pt doing well post op. Pain controlled. Passing flatus tolerating full liquids Abdomen is soft, appropriately tender. CATHRYN drain with 80cc serosanguinous output. Pt with persistent leukocytosis post op, no other signs of infection, will continue Abx. Advance to regular diet today. Will continue to follow. at 1146 RPT #:[id number] END OF REPORT [facility] 2019-09-27 11:41:00 [facility] General Surgery Progress Note REPORT#:[id number] REPORT STATUS: Signed DATE:09/27/19 TIME: 1141 PATIENT: SEYMOUR SNOW UNIT #: [id number] ROOM/BED: [address] : 48 AGE: 69 SEX: M ATTEND: Lizzy Duke MD ADM AUTHOR: Rickey Glover MD R1 * ALL edits or amendments must be made on the electronic/computer document * Rickey Glover 09/27/19 1141: General Date of surgery: 09/25/19 Status post: Laparoscopic, converted to open cholecystectomy with drain placement Subjective Comments: Patient reports passing gas this morning but no BM. Was seen ambulating this morning in his room. Tolerating his diet without nausea nor vomiting. Reports pain is controlled. Lost his IS earlier yesterday. ROS negative unless noted in above HPI of the following systems: constitutional, eyes, HENT, neck, neuro, CV, resp, GI, , msk, skin Objective General VS/I O: Last Documented: Result Date Time Pulse Ox 90 09/26 1058 B/P 102/66 09/26 1058 B/P Mean 77.6 09/26 1058 O2 Delivery Room air 09/26 1058 Temp 36.8 09/26 1058 Pulse 85 09/26 1058 Resp 18 09/26 1058 FiO2 21 09/25 1618 O2 Flow Rate 10.022976 09/24 1905 Vital Signs Date Temp Pulse Resp B/P B/P Mean Pulse Ox FiO2 09/25-09/26 36.5-38.0 85-110 15-20 93-123/58-79 69.8-93.9 90-94 21 24 hour I O ending at 0700: 09/26 0700 09/25 1900 Intake Total 1020.00 Output Total 430 140 Balance 590.00 -140 Intake, IV 700.00 Intake, Oral 320 Number Voids 3 Output, 30 140 Drainage Output, Urine 400 Patient Weight Weight (lb): 240 Weight (oz): 8.07 Weight (kg): 109.091 Medications: Active Meds + DC'd Last 24 Hrs Metformin HCl 500 MG C BK DIN PO Sodium Chloride 1,000 ML .Q20H IV Enoxaparin Sodium 30 MG 0400,1600 SUBQ Sodium Chloride 1,000 ML .[id number] IV (DC) Hydrocodone Bitart/Acetaminophen 1 TAB Q6H PRN PRN PO (DC) Oxycodone HCl 5 MG Q6H PRN PRN PO Piperacillin Sod/Tazobactam Sod 3.375 GM Q8H IV Sodium Chloride 100 ML Acetaminophen 975 MG Q8HR PO Methocarbamol 500 MG BID PO Hydromorphone HCl 0.5 MG Q4H PRN PRN IV Losartan Potassium 50 MG BID PO Pneumococcal 13-Valent Conj Vacc 0.5 ML ASDIR IM Dextrose/Sodium Chloride 1,000 ML .[id number] IV (DC) Dextrose/Water 25 ML ASDIR PRN IV Insulin Human Lispro LOW DOSE SCALE ASDIR SUBQ Morphine Sulfate 2 MG Q4H PRN PRN IV Ondansetron HCl 4 MG Q4H PRN PRN IV Nutrtion assessment: The data set between the solid lines has been imported from the dietitian's assessment. Any exceptions have been noted under Provider comments. BMI Calculated: 30.9 Nutrition related diagnosis: Nutrition diagnosis details: Nutrition problem: Nutrition etiology: Nutrition signs and symptoms: Nutrition prescription: Dietitian name: Assessment completed: Provider comments on imported dietitian assessment: Physical Exam General appearance: alert, awake, oriented Wound/incision: Location: RUQ, umbilicus Site condition: dressing intact, edges approximated, Drain- serosanguinous fluid HEENT: anicteric, atraumatic, moist mucosal membranes Neck: full range of motion, non-tender, no masses or swelling Cardiovascular: normal capillary refill, normal heart sounds, normal S1/S2 Respiratory: aerating well, clear to auscultation, equal breath sounds Abdomen: tenderness (RUQ to palpation), soft, no distention, Dressings are clean and dry at the umbilicus and RUQ Drain present in RUQ- serosanguinous Extremities: moves all, normal capillary refill, normal temperature Neuro/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: alert, oriented x 3, normal speech Skin: dry, intact, normal color Psychiatry: normal affect, normal judgment/insight, normal mood Results Findings/Data: Laboratory Tests 09/27/19 0353: [Embedded Image Not Available] Laboratory Tests 09/26 09/26 09/26 09/25 09/25 1055 0559 0353 1922 1528 Chemistry Sodium (137 - 145 mmol/L) 132 L Potassium (3.4 - 5.0 mmol/L) 4.0 Chloride (98 - 107 mmol/L) 99 Carbon Dioxide (22 - 30 mmol/L) 25 BUN (9 - 20 mg/dL) 16 Creatinine (0.7 - 1.3 mg/dL) 1.0 Glomerular Filtr Rate (>60) 78 Glucose (74 - 106 mg/dL) 166 H POC Glucose (74 - 106 MG/DL) 239 H 174 H 247 H 221 H Calcium (8.4 - 10.2 mg/dL) 7.5 L Total Bilirubin (0.2 - 1.3 mg/dL) 2.3 H Conjugated Bilirubin (0 - 0.3 mg/dL) 0 Unconjugated Bilirubin (0 - 1.1 mg/dL) 1.1 AST (15 - 46 U/L) 59 H ALT (13 - 69 U/L) 64 Total Alk Phosphatase (38 - 126 U/L) 186 H Total Protein (6.3 - 8.2 g/dL) 6.2 L Albumin (3.5 - 5.0 g/dL) 2.9 L Laboratory Tests 09/26 0353 Hematology WBC (5.0 - 12.0 x10 3/uL) 21.4 H RBC (4.70 - 6.10 x10 6/uL) 3.72 L Hgb (14.0 - 18.0 g/dL) 11.5 L Hct (37.0 - 49.0 %) 34.7 L MCV (80 - 94 fL) 93 MCH (27 - 31 pg) 30.9 MCHC (33 - 37 g/dL) 33.1 RDW (11.5 - 15.5 %) 13.2 Plt Count (130 - 400 x10 3/uL) 247 MPV (9.4 - 16.4 fL) 9.9 Neut % (Auto) (43 - 65 %) 85.7 H Lymph % (Auto) (20.5 - 45.5 %) 9.0 L [place] % (Auto) (5.5 - 11.7 %) 3.7 L Eos % (Auto) (0.9 - 2.9 %) 0.5 L Baso % (Auto) (0.2 - 1.0 %) 0.3 Neut # (Auto) (2.2 - 4.8 x10 3/uL) 18.38 H Lymph # (Auto) (1.3 - 2.9 x10 3/uL) 1.92 [place] # (Auto) (0.3 - 0.8 x10 3/uL) 0.80 Eos # (Auto) (0.0 - 0.2 x10 3/uL) 0.10 Baso # (Auto) (0.0 - 0.1 x10 3/uL) 0.06 Immature Gran % (0.0 - 2.0 %) 0.8 Nucleated RBC % (0 - 1.0 %) 0.0 Results: All labs and results reviewed by attending physician Diagnosis, Assessment Plan Free Text A P: ASSESSMENT: 69 y/o GANDHI POD 2 s/p laparsocopic, converted to open cholecystectomy. Pain is controlled, tolerating CLD without nausea nor vomiting. Reports passing gas today Injuries/Acute Problems: -Cholecystitis Chronic Medical Problems/Comorbidities: -HTN -DM PLAN: Leukocytosis noted; will continue to follow closely Cont. Rocephin IV until tomorrow 09/28/19 and IVF Elevated direct bilirubinemia noted, will continue to follow Multimodel pain control, discontinued toradol Advance to regular diet- monitor drain output for any bile OOB, regular ambulation Find incentive spirometer- IS usage- 10 /hr Will follow up tomorrow L/D/A: PIV DVT prophylaxis: SCDs Lovenox GI prophylaxis: not indicated Diet: Regular diet Activity: OOB, ambulation, as tolerated Dispo: continue on medicine and we will cont. to follow. Code Status: FULL Attestations Attestation needed: teaching physician Judith Mccoy 09/27/19 1647: Attestations Teaching Physician Attestation F/U visit w/ resident: I saw the patient with the resident and . . . agree with the resident's findings and plan. Pt doing well post op. Pain controlled. Passing flatus tolerating full liquids Abdomen is soft, appropriately tender. CATHRYN drain with 80cc serosanguinous output. Pt with persistent leukocytosis post op, no other signs of infection, will continue Abx. Advance to regular diet today. Will continue to follow. at 1146 at 1659 RPT #:[id number] END OF REPORT [facility] 2019-09-26 12:24:00 [facility] General Surgery Progress Note REPORT#:[id number] REPORT STATUS: Signed DATE:09/26/19 TIME: 1224 PATIENT: SEYMOUR SNOW UNIT #: [id number] ROOM/BED: [address] : 48 AGE: 69 SEX: M ATTEND: Lizzy Duke MD ADM AUTHOR: Rickey Glover MD R1 * ALL edits or amendments must be made on the electronic/computer document * General Date of surgery: 09/25/19 Status post: Laparoscopic, converted to open cholecystectomy with drain placement Subjective Comments: Patient is POD 1 s/p laparoscopic, converted to open cholecystectomy. Reports his pain is controlled. He reports that he has had no nausea nor vomiting today. Denies any flatus yet. Reports that he has abdominal pain is at the surgical site. ROS negative unless noted in above HPI of the following systems: constitutional, eyes, HENT, neck, neuro, CV, resp, GI, , msk, skin Objective General VS/I O: Last Documented: Result Date Time Pulse Ox 93 09/25 1107 B/P 103/67 09/25 1107 B/P Mean 78.9 09/25 1107 O2 Delivery Room air 09/25 1107 Temp 36.8 09/25 1107 Pulse 82 09/25 1107 Resp 20 09/25 1107 O2 Flow Rate 10.180491 09/24 1905 Vital Signs Date Temp Pulse Resp B/P B/P Mean Pulse Ox FiO2 09/24-09/25 36.2-36.8 64-89 12-20 98-138/55-86 73.4-103.5 91-100 24 hour I O ending at 0700: 09/25 0700 09/24 1900 Intake Total 0 1200.00 Output Total 400 150 Balance -400 1050.00 Intake, IV 0 1200.00 Output, 50 Estimated Blood Loss Output, Urine 400 100 Patient Weight Weight (lb): 240 Weight (oz): 8.07 Weight (kg): 109.091 Medications: Active Meds + DC'd Last 24 Hrs Metformin HCl 500 MG C BK DIN PO Enoxaparin Sodium 30 MG 0400,1600 SUBQ Acetaminophen 975 MG Q8HR PO Methocarbamol 500 MG BID PO Morphine Sulfate 4 MG NOW ONE IV (DC) Sodium Chloride 1,000 ML Q10H IV (DC) Ketorolac Tromethamine 15 MG Q6H PRN PRN IV (DC) Hydromorphone HCl 0.5 MG Q4H PRN PRN IV Rocuronium [place] 0 .STK-MED ONE .ROUTE (DC) Morphine Sulfate 0 .STK-MED ONE .ROUTE (DC) Morphine Sulfate 0 .STK-MED ONE .ROUTE (DC) Cefazolin Sodium 0 .STK-MED ONE .ROUTE (DC) Dexamethasone Sodium Phosphate 0 .STK-MED ONE .ROUTE (DC) Ketorolac Tromethamine 0 .STK-MED ONE .ROUTE (DC) Ondansetron HCl 0 .STK-MED ONE .ROUTE (DC) Iopamidol 0 .STK-MED ONE .ROUTE (DC) Meperidine HCl 12.5 MG PACU Q15MIN PRN PRN IV (DC) Albuterol Sulfate 2.5 MG PACU Q20MIN PRN PRN INH (DC) Atropine Sulfate 0.5 MG PACU Q5MIN PRN PRN IV (DC) Bupivacaine HCl/Epinephrine Bitart 0 .STK-MED ONE .ROUTE (DC) Diphenhydramine HCl 12.5 MG PACU ONCE PRN PRN IV (DC) Epinephrine 0.5 ML PACU ASDIR PRN PRN INH (DC) Flumazenil 0.2 MG PACU ASDIR PRN PRN IV (DC) Hydralazine HCl 10 MG PACU Q10MIN PRN PRN IV (DC) Labetalol HCl 10 MG PACU Q5MIN PRN PRN IV (DC) Lactated Ringer's 1,000 ML PACU IV FLUID IV (DC) Meperidine HCl 12.5 MG PACU Q10MIN PRN PRN IV (DC) Morphine Sulfate 2 MG PACU Q5MIN PRN PRN IV (DC) Naloxone HCl 0.04 MG PACU Q2MIN PRN PRN IV (DC) Ondansetron HCl 4 MG PACU ASDIR PRN PRN IV (DC) Oxycodone HCl 5 MG PACU Q4H PRN PRN PO (DC) Promethazine HCl 6.25 MG PACU ASDIR PRN PRN IM (DC) Propofol 0 .STK-MED ONE .ROUTE (DC) Losartan Potassium 50 MG BID PO Piperacillin Sod/Tazobactam Sod 3.375 GM Q8H IV (DC) Sodium Chloride 100 ML Pneumococcal 13-Valent Conj Vacc 0.5 ML ASDIR IM Acetaminophen 650 MG Q4H PRN PRN PO (DC) Dextrose/Sodium Chloride 1,000 ML .[id number] IV Dextrose/Water 25 ML ASDIR PRN IV Insulin Human Lispro LOW DOSE SCALE ASDIR SUBQ Morphine Sulfate 2 MG Q4H PRN PRN IV Ondansetron HCl 4 MG Q4H PRN PRN IV Nutrtion assessment: The data set between the solid lines has been imported from the dietitian's assessment. Any exceptions have been noted under Provider comments. BMI Calculated: 30.9 Nutrition related diagnosis: Nutrition diagnosis details: Nutrition problem: Nutrition etiology: Nutrition signs and symptoms: Nutrition prescription: Dietitian name: Assessment completed: Provider comments on imported dietitian assessment: Physical Exam General appearance: alert, awake, oriented Wound/incision: Location: RUQ, umbilicus Site condition: dressing clean dry, dressing intact, Drain- serosanguinous fluid HEENT: anicteric, atraumatic, moist mucosal membranes Neck: full range of motion, non-tender, no masses or swelling Cardiovascular: normal capillary refill, normal heart sounds, normal S1/S2 Respiratory: aerating well, clear to auscultation, equal breath sounds Abdomen: tenderness (RUQ to palpation), soft, no distention, Dressings are clean and dry at the umbilicus and RUQ Drain present in RUQ- serosanguinous Extremities: moves all, normal capillary refill, normal temperature Neuro/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: alert, oriented x 3, normal speech Skin: dry, intact, normal color Psychiatry: normal affect, normal judgment/insight, normal mood Results Findings/Data: Laboratory Tests 09/26/19 0549: [Embedded Image Not Available] Laboratory Tests 09/25 09/25 09/25 09/24 09/24 1104 0574 [id number] 2017 Chemistry Sodium (137 - 145 mmol/L) 134 L Potassium (3.4 - 5.0 mmol/L) 4.7 Chloride (98 - 107 mmol/L) 104 Carbon Dioxide (22 - 30 mmol/L) 22 BUN (9 - 20 mg/dL) 11 Creatinine (0.7 - 1.3 mg/dL) 0.6 L Glomerular Filtr Rate (>60) 141 Glucose (74 - 106 mg/dL) 231 H POC Glucose (74 - 106 MG/DL) 355 H 254 H 242 H 213 H Calcium (8.4 - 10.2 mg/dL) 7.3 L Total Bilirubin (0.2 - 1.3 mg/dL) 1.3 Conjugated Bilirubin (0 - 0.3 mg/dL) 0 Unconjugated Bilirubin (0 - 1.1 mg/dL) 0.9 AST (15 - 46 U/L) 58 H ALT (13 - 69 U/L) 57 Total Alk Phosphatase (38 - 126 U/L) 135 H Total Protein (6.3 - 8.2 g/dL) 5.0 L Albumin (3.5 - 5.0 g/dL) 2.3 L 09/24 09/24 1902 1414 Chemistry POC Glucose (74 - 106 MG/DL) 182 H 115 H Laboratory Tests 09/25 0549 Hematology WBC (5.0 - 12.0 x10 3/uL) 22.4 H RBC (4.70 - 6.10 x10 6/uL) 3.59 L Hgb (14.0 - 18.0 g/dL) 11.1 L Hct (37.0 - 49.0 %) 34.0 L MCV (80 - 94 fL) 95 H MCH (27 - 31 pg) 30.9 MCHC (33 - 37 g/dL) 32.6 L RDW (11.5 - 15.5 %) 13.2 Plt Count (130 - 400 x10 3/uL) 241 MPV (9.4 - 16.4 fL) 9.5 Neut % (Auto) (43 - 65 %) 91.5 H Lymph % (Auto) (20.5 - 45.5 %) 4.7 L [place] % (Auto) (5.5 - 11.7 %) 3.1 L Eos % (Auto) (0.9 - 2.9 %) 0.0 L Baso % (Auto) (0.2 - 1.0 %) 0.1 L Neut # (Auto) (2.2 - 4.8 x10 3/uL) 20.54 H Lymph # (Auto) (1.3 - 2.9 x10 3/uL) 1.05 L [place] # (Auto) (0.3 - 0.8 x10 3/uL) 0.69 Eos # (Auto) (0.0 - 0.2 x10 3/uL) 0.00 Baso # (Auto) (0.0 - 0.1 x10 3/uL) 0.03 Immature Gran % (0.0 - 2.0 %) 0.6 Nucleated RBC % (0 - 1.0 %) 0.0 Results: All labs and results reviewed by attending physician Diagnosis, Assessment Plan Free Text A P: ASSESSMENT: 69 y/o GANDHI POD 1 s/p laparsocopic, converted to open cholecystectomy. Pain is controlled, tolerating CLD without nausea nor vomiting. Injuries/Acute Problems: -Biliary pancreatitis Chronic Medical Problems/Comorbidities: -HTN -DM PLAN: Multimodel pain control, discontinued toradol Cont. Rocephin IV x 1 day and IVF CLD, may advance to low fat diet if passing gas OOB, regular ambulation IS usage- 10 /hr L/D/A: PIV DVT prophylaxis: SCDs Lovenox GI prophylaxis: not indicated Diet: CLD, advance to low fat if passing gas Activity: OOB, ambulation, as tolerated Dispo: continue on medicine and we will cont. to follow. Code Status: FULL Attestations Attestation needed: teaching physician at 1230 RPT #:[id number] END OF REPORT [facility] 2019-09-26 12:24:00 [facility] General Surgery Progress Note REPORT#:[id number] REPORT STATUS: Signed DATE:09/26/19 TIME: 122 PATIENT: SEYMOUR SNOW UNIT #: [id number] ROOM/BED: [address] : [birth year] AGE: 69 SEX: M ATTEND: Lizzy Duke MD ADM AUTHOR: Rickey Glover MD R1 * ALL edits or amendments must be made on the electronic/computer document * Rickey Glover 09/26/19 1224: General Date of surgery: 09/25/19 Status post: Laparoscopic, converted to open cholecystectomy with drain placement Subjective Comments: Patient is POD 1 s/p laparoscopic, converted to open cholecystectomy. Reports his pain is controlled. He reports that he has had no nausea nor vomiting today. Denies any flatus yet. Reports that he has abdominal pain is at the surgical site. ROS negative unless noted in above HPI of the following systems: constitutional, eyes, HENT, neck, neuro, CV, resp, GI, , msk, skin Objective General VS/I O: Last Documented: Result Date Time Pulse Ox 93 09/25 1107 B/P 103/67 09/25 1107 B/P Mean 78.9 09/25 1107 O2 Delivery Room air 09/25 1107 Temp 36.8 09/25 1107 Pulse 82 09/25 1107 Resp 20 09/25 1107 O2 Flow Rate 10.377881 09/24 1905 Vital Signs Date Temp Pulse Resp B/P B/P Mean Pulse Ox FiO2 09/24-09/25 36.2-36.8 64-89 12-20 98-138/55-86 73.4-103.5 91-100 24 hour I O ending at 0700: 09/25 0700 09/24 1900 Intake Total 0 1200.00 Output Total 400 150 Balance -400 1050.00 Intake, IV 0 1200.00 Output, 50 Estimated Blood Loss Output, Urine 400 100 Patient Weight Weight (lb): 240 Weight (oz): 8.07 Weight (kg): 109.091 Medications: Active Meds + DC'd Last 24 Hrs Metformin HCl 500 MG C BK DIN PO Enoxaparin Sodium 30 MG 0400,1600 SUBQ Acetaminophen 975 MG Q8HR PO Methocarbamol 500 MG BID PO Morphine Sulfate 4 MG NOW ONE IV (DC) Sodium Chloride 1,000 ML Q10H IV (DC) Ketorolac Tromethamine 15 MG Q6H PRN PRN IV (DC) Hydromorphone HCl 0.5 MG Q4H PRN PRN IV Rocuronium [place] 0 .STK-MED ONE .ROUTE (DC) Morphine Sulfate 0 .STK-MED ONE .ROUTE (DC) Morphine Sulfate 0 .STK-MED ONE .ROUTE (DC) Cefazolin Sodium 0 .STK-MED ONE .ROUTE (DC) Dexamethasone Sodium Phosphate 0 .STK-MED ONE .ROUTE (DC) Ketorolac Tromethamine 0 .STK-MED ONE .ROUTE (DC) Ondansetron HCl 0 .STK-MED ONE .ROUTE (DC) Iopamidol 0 .STK-MED ONE .ROUTE (DC) Meperidine HCl 12.5 MG PACU Q15MIN PRN PRN IV (DC) Albuterol Sulfate 2.5 MG PACU Q20MIN PRN PRN INH (DC) Atropine Sulfate 0.5 MG PACU Q5MIN PRN PRN IV (DC) Bupivacaine HCl/Epinephrine Bitart 0 .STK-MED ONE .ROUTE (DC) Diphenhydramine HCl 12.5 MG PACU ONCE PRN PRN IV (DC) Epinephrine 0.5 ML PACU ASDIR PRN PRN INH (DC) Flumazenil 0.2 MG PACU ASDIR PRN PRN IV (DC) Hydralazine HCl 10 MG PACU Q10MIN PRN PRN IV (DC) Labetalol HCl 10 MG PACU Q5MIN PRN PRN IV (DC) Lactated Ringer's 1,000 ML PACU IV FLUID IV (DC) Meperidine HCl 12.5 MG PACU Q10MIN PRN PRN IV (DC) Morphine Sulfate 2 MG PACU Q5MIN PRN PRN IV (DC) Naloxone HCl 0.04 MG PACU Q2MIN PRN PRN IV (DC) Ondansetron HCl 4 MG PACU ASDIR PRN PRN IV (DC) Oxycodone HCl 5 MG PACU Q4H PRN PRN PO (DC) Promethazine HCl 6.25 MG PACU ASDIR PRN PRN IM (DC) Propofol 0 .STK-MED ONE .ROUTE (DC) Losartan Potassium 50 MG BID PO Piperacillin Sod/Tazobactam Sod 3.375 GM Q8H IV (DC) Sodium Chloride 100 ML Pneumococcal 13-Valent Conj Vacc 0.5 ML ASDIR IM Acetaminophen 650 MG Q4H PRN PRN PO (DC) Dextrose/Sodium Chloride 1,000 ML .[id number] IV Dextrose/Water 25 ML ASDIR PRN IV Insulin Human Lispro LOW DOSE SCALE ASDIR SUBQ Morphine Sulfate 2 MG Q4H PRN PRN IV Ondansetron HCl 4 MG Q4H PRN PRN IV Nutrtion assessment: The data set between the solid lines has been imported from the dietitian's assessment. Any exceptions have been noted under Provider comments. BMI Calculated: 30.9 Nutrition related diagnosis: Nutrition diagnosis details: Nutrition problem: Nutrition etiology: Nutrition signs and symptoms: Nutrition prescription: Dietitian name: Assessment completed: Provider comments on imported dietitian assessment: Physical Exam General appearance: alert, awake, oriented Wound/incision: Location: RUQ, umbilicus Site condition: dressing clean dry, dressing intact, Drain- serosanguinous fluid HEENT: anicteric, atraumatic, moist mucosal membranes Neck: full range of motion, non-tender, no masses or swelling Cardiovascular: normal capillary refill, normal heart sounds, normal S1/S2 Respiratory: aerating well, clear to auscultation, equal breath sounds Abdomen: tenderness (RUQ to palpation), soft, no distention, Dressings are clean and dry at the umbilicus and RUQ Drain present in RUQ- serosanguinous Extremities: moves all, normal capillary refill, normal temperature Neuro/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: alert, oriented x 3, normal speech Skin: dry, intact, normal color Psychiatry: normal affect, normal judgment/insight, normal mood Results Findings/Data: Laboratory Tests 09/26/19 0549: [Embedded Image Not Available] Laboratory Tests 09/25 09/25 09/25 09/24 09/24 1104 0549 [id number] Chemistry Sodium (137 - 145 mmol/L) 134 L Potassium (3.4 - 5.0 mmol/L) 4.7 Chloride (98 - 107 mmol/L) 104 Carbon Dioxide (22 - 30 mmol/L) 22 BUN (9 - 20 mg/dL) 11 Creatinine (0.7 - 1.3 mg/dL) 0.6 L Glomerular Filtr Rate (>60) 141 Glucose (74 - 106 mg/dL) 231 H POC Glucose (74 - 106 MG/DL) 355 H 254 H 242 H 213 H Calcium (8.4 - 10.2 mg/dL) 7.3 L Total Bilirubin (0.2 - 1.3 mg/dL) 1.3 Conjugated Bilirubin (0 - 0.3 mg/dL) 0 Unconjugated Bilirubin (0 - 1.1 mg/dL) 0.9 AST (15 - 46 U/L) 58 H ALT (13 - 69 U/L) 57 Total Alk Phosphatase (38 - 126 U/L) 135 H Total Protein (6.3 - 8.2 g/dL) 5.0 L Albumin (3.5 - 5.0 g/dL) 2.3 L 09/24 09/24 1902 1414 Chemistry POC Glucose (74 - 106 MG/DL) 182 H 115 H Laboratory Tests 09/25 0549 Hematology WBC (5.0 - 12.0 x10 3/uL) 22.4 H RBC (4.70 - 6.10 x10 6/uL) 3.59 L Hgb (14.0 - 18.0 g/dL) 11.1 L Hct (37.0 - 49.0 %) 34.0 L MCV (80 - 94 fL) 95 H MCH (27 - 31 pg) 30.9 MCHC (33 - 37 g/dL) 32.6 L RDW (11.5 - 15.5 %) 13.2 Plt Count (130 - 400 x10 3/uL) 241 MPV (9.4 - 16.4 fL) 9.5 Neut % (Auto) (43 - 65 %) 91.5 H Lymph % (Auto) (20.5 - 45.5 %) 4.7 L [place] % (Auto) (5.5 - 11.7 %) 3.1 L Eos % (Auto) (0.9 - 2.9 %) 0.0 L Baso % (Auto) (0.2 - 1.0 %) 0.1 L Neut # (Auto) (2.2 - 4.8 x10 3/uL) 20.54 H Lymph # (Auto) (1.3 - 2.9 x10 3/uL) 1.05 L [place] # (Auto) (0.3 - 0.8 x10 3/uL) 0.69 Eos # (Auto) (0.0 - 0.2 x10 3/uL) 0.00 Baso # (Auto) (0.0 - 0.1 x10 3/uL) 0.03 Immature Gran % (0.0 - 2.0 %) 0.6 Nucleated RBC % (0 - 1.0 %) 0.0 Results: All labs and results reviewed by attending physician Diagnosis, Assessment Plan Free Text A P: ASSESSMENT: 69 y/o GANDHI POD 1 s/p laparsocopic, converted to open cholecystectomy. Pain is controlled, tolerating CLD without nausea nor vomiting. Injuries/Acute Problems: -Biliary pancreatitis Chronic Medical Problems/Comorbidities: -HTN -DM PLAN: Multimodel pain control, discontinued toradol Cont. Rocephin IV x 1 day and IVF CLD, may advance to low fat diet if passing gas OOB, regular ambulation IS usage- 10 /hr L/D/A: PIV DVT prophylaxis: SCDs Lovenox GI prophylaxis: not indicated Diet: CLD, advance to low fat if passing gas Activity: OOB, ambulation, as tolerated Dispo: continue on medicine and we will cont. to follow. Code Status: FULL Attestations Attestation needed: teaching physician Judith Mccoy 09/26/19 1645: Attestations Teaching Physician Attestation F/U visit w/ resident: I saw the patient with the resident and . . . agree with the resident's findings and plan. POD 1 s/p open subtotal cholecystectomy. Pain is controlled, doing 1500 on IS Dressings are Clean and dry, CATHRYN drain with sanguinous ouput. Await bowel function prior to starting regular diet. Will continue drain until after diet started. Pt has leucocytosis on CBC ths AM, likely reactive. Will continue Abx today, repeat CBC in AM at 1230 RPT #:[id number] END OF REPORT [facility] 2019-09-26 12:24:00 [facility] General Surgery Progress Note REPORT#:[id number] REPORT STATUS: Signed DATE:09/26/19 TIME: 1224 PATIENT: SEYMOUR SNOW UNIT #: [id number] ROOM/BED: [address] : 48 AGE: 69 SEX: M ATTEND: Lizzy Duke MD ADM AUTHOR: Rickey Glover MD R1 * ALL edits or amendments must be made on the electronic/computer document * Rickey Glover 09/26/19 1224: General Date of surgery: 09/25/19 Status post: Laparoscopic, converted to open cholecystectomy with drain placement Subjective Comments: Patient is POD 1 s/p laparoscopic, converted to open cholecystectomy. Reports his pain is controlled. He reports that he has had no nausea nor vomiting today. Denies any flatus yet. Reports that he has abdominal pain is at the surgical site. ROS negative unless noted in above HPI of the following systems: constitutional, eyes, HENT, neck, neuro, CV, resp, GI, , msk, skin Objective General VS/I O: Last Documented: Result Date Time Pulse Ox 93 09/25 1107 B/P 103/67 09/25 1107 B/P Mean 78.9 09/25 1107 O2 Delivery Room air 09/25 1107 Temp 36.8 09/25 1107 Pulse 82 09/25 1107 Resp 20 09/25 1107 O2 Flow Rate 10.914457 09/24 1905 Vital Signs Date Temp Pulse Resp B/P B/P Mean Pulse Ox FiO2 09/24-09/25 36.2-36.8 64-89 12-20 98-138/55-86 73.4-103.5 91-100 24 hour I O ending at 0700: 09/25 0700 09/24 1900 Intake Total 0 1200.00 Output Total 400 150 Balance -400 1050.00 Intake, IV 0 1200.00 Output, 50 Estimated Blood Loss Output, Urine 400 100 Patient Weight Weight (lb): 240 Weight (oz): 8.07 Weight (kg): 109.091 Medications: Active Meds + DC'd Last 24 Hrs Metformin HCl 500 MG C BK DIN PO Enoxaparin Sodium 30 MG 0400,1600 SUBQ Acetaminophen 975 MG Q8HR PO Methocarbamol 500 MG BID PO Morphine Sulfate 4 MG NOW ONE IV (DC) Sodium Chloride 1,000 ML Q10H IV (DC) Ketorolac Tromethamine 15 MG Q6H PRN PRN IV (DC) Hydromorphone HCl 0.5 MG Q4H PRN PRN IV Rocuronium [place] 0 .STK-MED ONE .ROUTE (DC) Morphine Sulfate 0 .STK-MED ONE .ROUTE (DC) Morphine Sulfate 0 .STK-MED ONE .ROUTE (DC) Cefazolin Sodium 0 .STK-MED ONE .ROUTE (DC) Dexamethasone Sodium Phosphate 0 .STK-MED ONE .ROUTE (DC) Ketorolac Tromethamine 0 .STK-MED ONE .ROUTE (DC) Ondansetron HCl 0 .STK-MED ONE .ROUTE (DC) Iopamidol 0 .STK-MED ONE .ROUTE (DC) Meperidine HCl 12.5 MG PACU Q15MIN PRN PRN IV (DC) Albuterol Sulfate 2.5 MG PACU Q20MIN PRN PRN INH (DC) Atropine Sulfate 0.5 MG PACU Q5MIN PRN PRN IV (DC) Bupivacaine HCl/Epinephrine Bitart 0 .STK-MED ONE .ROUTE (DC) Diphenhydramine HCl 12.5 MG PACU ONCE PRN PRN IV (DC) Epinephrine 0.5 ML PACU ASDIR PRN PRN INH (DC) Flumazenil 0.2 MG PACU ASDIR PRN PRN IV (DC) Hydralazine HCl 10 MG PACU Q10MIN PRN PRN IV (DC) Labetalol HCl 10 MG PACU Q5MIN PRN PRN IV (DC) Lactated Ringer's 1,000 ML PACU IV FLUID IV (DC) Meperidine HCl 12.5 MG PACU Q10MIN PRN PRN IV (DC) Morphine Sulfate 2 MG PACU Q5MIN PRN PRN IV (DC) Naloxone HCl 0.04 MG PACU Q2MIN PRN PRN IV (DC) Ondansetron HCl 4 MG PACU ASDIR PRN PRN IV (DC) Oxycodone HCl 5 MG PACU Q4H PRN PRN PO (DC) Promethazine HCl 6.25 MG PACU ASDIR PRN PRN IM (DC) Propofol 0 .STK-MED ONE .ROUTE (DC) Losartan Potassium 50 MG BID PO Piperacillin Sod/Tazobactam Sod 3.375 GM Q8H IV (DC) Sodium Chloride 100 ML Pneumococcal 13-Valent Conj Vacc 0.5 ML ASDIR IM Acetaminophen 650 MG Q4H PRN PRN PO (DC) Dextrose/Sodium Chloride 1,000 ML .[id number] IV Dextrose/Water 25 ML ASDIR PRN IV Insulin Human Lispro LOW DOSE SCALE ASDIR SUBQ Morphine Sulfate 2 MG Q4H PRN PRN IV Ondansetron HCl 4 MG Q4H PRN PRN IV Nutrtion assessment: The data set between the solid lines has been imported from the dietitian's assessment. Any exceptions have been noted under Provider comments. BMI Calculated: 30.9 Nutrition related diagnosis: Nutrition diagnosis details: Nutrition problem: Nutrition etiology: Nutrition signs and symptoms: Nutrition prescription: Dietitian name: Assessment completed: Provider comments on imported dietitian assessment: Physical Exam General appearance: alert, awake, oriented Wound/incision: Location: RUQ, umbilicus Site condition: dressing clean dry, dressing intact, Drain- serosanguinous fluid HEENT: anicteric, atraumatic, moist mucosal membranes Neck: full range of motion, non-tender, no masses or swelling Cardiovascular: normal capillary refill, normal heart sounds, normal S1/S2 Respiratory: aerating well, clear to auscultation, equal breath sounds Abdomen: tenderness (RUQ to palpation), soft, no distention, Dressings are clean and dry at the umbilicus and RUQ Drain present in RUQ- serosanguinous Extremities: moves all, normal capillary refill, normal temperature Neuro/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: alert, oriented x 3, normal speech Skin: dry, intact, normal color Psychiatry: normal affect, normal judgment/insight, normal mood Results Findings/Data: Laboratory Tests 09/26/19 0549: [Embedded Image Not Available] Laboratory Tests 09/25 09/25 09/25 09/24 09/24 1104 0549 0545 2331 2016 Chemistry Sodium (137 - 145 mmol/L) 134 L Potassium (3.4 - 5.0 mmol/L) 4.7 Chloride (98 - 107 mmol/L) 104 Carbon Dioxide (22 - 30 mmol/L) 22 BUN (9 - 20 mg/dL) 11 Creatinine (0.7 - 1.3 mg/dL) 0.6 L Glomerular Filtr Rate (>60) 141 Glucose (74 - 106 mg/dL) 231 H POC Glucose (74 - 106 MG/DL) 355 H 254 H 242 H 213 H Calcium (8.4 - 10.2 mg/dL) 7.3 L Total Bilirubin (0.2 - 1.3 mg/dL) 1.3 Conjugated Bilirubin (0 - 0.3 mg/dL) 0 Unconjugated Bilirubin (0 - 1.1 mg/dL) 0.9 AST (15 - 46 U/L) 58 H ALT (13 - 69 U/L) 57 Total Alk Phosphatase (38 - 126 U/L) 135 H Total Protein (6.3 - 8.2 g/dL) 5.0 L Albumin (3.5 - 5.0 g/dL) 2.3 L 09/24 09/24 1902 1414 Chemistry POC Glucose (74 - 106 MG/DL) 182 H 115 H Laboratory Tests 09/25 0549 Hematology WBC (5.0 - 12.0 x10 3/uL) 22.4 H RBC (4.70 - 6.10 x10 6/uL) 3.59 L Hgb (14.0 - 18.0 g/dL) 11.1 L Hct (37.0 - 49.0 %) 34.0 L MCV (80 - 94 fL) 95 H MCH (27 - 31 pg) 30.9 MCHC (33 - 37 g/dL) 32.6 L RDW (11.5 - 15.5 %) 13.2 Plt Count (130 - 400 x10 3/uL) 241 MPV (9.4 - 16.4 fL) 9.5 Neut % (Auto) (43 - 65 %) 91.5 H Lymph % (Auto) (20.5 - 45.5 %) 4.7 L [place] % (Auto) (5.5 - 11.7 %) 3.1 L Eos % (Auto) (0.9 - 2.9 %) 0.0 L Baso % (Auto) (0.2 - 1.0 %) 0.1 L Neut # (Auto) (2.2 - 4.8 x10 3/uL) 20.54 H Lymph # (Auto) (1.3 - 2.9 x10 3/uL) 1.05 L [place] # (Auto) (0.3 - 0.8 x10 3/uL) 0.69 Eos # (Auto) (0.0 - 0.2 x10 3/uL) 0.00 Baso # (Auto) (0.0 - 0.1 x10 3/uL) 0.03 Immature Gran % (0.0 - 2.0 %) 0.6 Nucleated RBC % (0 - 1.0 %) 0.0 Results: All labs and results reviewed by attending physician Diagnosis, Assessment Plan Free Text A P: ASSESSMENT: 69 y/o GANDHI POD 1 s/p laparsocopic, converted to open cholecystectomy. Pain is controlled, tolerating CLD without nausea nor vomiting. Injuries/Acute Problems: -Biliary pancreatitis Chronic Medical Problems/Comorbidities: -HTN -DM PLAN: Multimodel pain control, discontinued toradol Cont. Rocephin IV x 1 day and IVF CLD, may advance to low fat diet if passing gas OOB, regular ambulation IS usage- 10 /hr L/D/A: PIV DVT prophylaxis: SCDs Lovenox GI prophylaxis: not indicated Diet: CLD, advance to low fat if passing gas Activity: OOB, ambulation, as tolerated Dispo: continue on medicine and we will cont. to follow. Code Status: FULL Attestations Attestation needed: teaching physician Judith Mccoy 09/26/19 5493: Attestations Teaching Physician Attestation F/U visit w/ resident: I saw the patient with the resident and . . . agree with the resident's findings and plan. POD 1 s/p open subtotal cholecystectomy. Pain is controlled, doing 1500 on IS Dressings are Clean and dry, CATHRYN drain with sanguinous ouput. Await bowel function prior to starting regular diet. Will continue drain until after diet started. Pt has leucocytosis on CBC ths AM, likely reactive. Will continue Abx today, repeat CBC in AM at 1230 at 1729 RPT #:[id number] END OF REPORT [facility] 2019-09-26 08:47:00 [facility] Hospitalist Progress Note REPORT#:[id number] REPORT STATUS: Signed DATE:09/26/19 TIME: 08 PATIENT: SEYMOUR SNOW UNIT #: [id number] ROOM/BED: [address] : 48 AGE: 69 SEX: M ATTEND: Lizzy Duke MD ADM AUTHOR: Mariana Siegel * ALL edits or amendments must be made on the electronic/computer document * Subjective Chief Complaint: abdominal pain Comments: Interval Hx: VARUN overnight Objective General VS/I O: Vital Signs: Date Time Temp Pulse Resp B/P B/P Pulse O2 O2 Flow FiO2 Mean Ox Delivery Rate 09/25 0754 98.1 77 18 98/61 73.4 92 Room air 09/25 0405 98.1 79 17 123/78 93.0 93 Room air 09/24 2334 97.7 85 17 137/74 95.1 95 Room air 09/24 2248 84 120/80 93.0 93 09/24 2148 82 138/86 103.5 93 09/25 2047 89 137/85 102.2 93 09/24 2018 83 131/70 90.0 93 09/24 1953 98.1 84 17 121/78 92.5 91 Nasal cannula 09/24 1924 84 14 111/55 95 Room air 09/24 192 85 12 118/61 94 Room air 09/24 1904 84 12 116/66 98 Simple [id number] mask 09/24 1904 Simple 10.438481 mask 09/24 190 82 14 115/62 100 Simple 10.271958 mask 09/24 1855 82 14 124/66 99 Simple [id number] mask 09/24 1851 97.2 84 16 132/69 99 Simple 10.846344 mask 09/24 1415 97.8 64 16 138/85 97 Room air 09/24 1001 59 15 125/86 99.3 91 Room air 09/24 1001 59 15 125/86 99.3 91 Room air 24 hour I O ending at 0700: 05/10 0700 09/24 1900 Intake Total 0 1200.00 Output Total 400 150 Balance -400 1050.00 Intake, IV 0 1200.00 Output, 50 Estimated Blood Loss Output, Urine 400 100 Patient Weight Weight (lb): 240 Weight (oz): 8.07 Weight (kg): 109.091 Medications: Active Meds + DC'd Last 24 Hrs Enoxaparin Sodium 30 MG 0400,1600 SUBQ Acetaminophen 975 MG Q8HR PO Methocarbamol 500 MG BID PO Morphine Sulfate 4 MG NOW ONE IV (DC) Sodium Chloride 1,000 ML Q10H IV (DC) Ketorolac Tromethamine 15 MG Q6H PRN PRN IV (DC) Hydromorphone HCl 0.5 MG Q4H PRN PRN IV Rocuronium [place] 0 .STK-MED ONE .ROUTE (DC) Morphine Sulfate 0 .STK-MED ONE .ROUTE (DC) Morphine Sulfate 0 .STK-MED ONE .ROUTE (DC) Cefazolin Sodium 0 .STK-MED ONE .ROUTE (DC) Dexamethasone Sodium Phosphate 0 .STK-MED ONE .ROUTE (DC) Ketorolac Tromethamine 0 .STK-MED ONE .ROUTE (DC) Ondansetron HCl 0 .STK-MED ONE .ROUTE (DC) Iopamidol 0 .STK-MED ONE .ROUTE (DC) Meperidine HCl 12.5 MG PACU Q15MIN PRN PRN IV (DC) Albuterol Sulfate 2.5 MG PACU Q20MIN PRN PRN INH (DC) Atropine Sulfate 0.5 MG PACU Q5MIN PRN PRN IV (DC) Bupivacaine HCl/Epinephrine Bitart 0 .STK-MED ONE .ROUTE (DC) Diphenhydramine HCl 12.5 MG PACU ONCE PRN PRN IV (DC) Epinephrine 0.5 ML PACU ASDIR PRN PRN INH (DC) Flumazenil 0.2 MG PACU ASDIR PRN PRN IV (DC) Hydralazine HCl 10 MG PACU Q10MIN PRN PRN IV (DC) Labetalol HCl 10 MG PACU Q5MIN PRN PRN IV (DC) Lactated Ringer's 1,000 ML PACU IV FLUID IV (DC) Meperidine HCl 12.5 MG PACU Q10MIN PRN PRN IV (DC) Morphine Sulfate 2 MG PACU Q5MIN PRN PRN IV (DC) Naloxone HCl 0.04 MG PACU Q2MIN PRN PRN IV (DC) Ondansetron HCl 4 MG PACU ASDIR PRN PRN IV (DC) Oxycodone HCl 5 MG PACU Q4H PRN PRN PO (DC) Promethazine HCl 6.25 MG PACU ASDIR PRN PRN IM (DC) Propofol 0 .STK-MED ONE .ROUTE (DC) Losartan Potassium 50 MG BID PO Piperacillin Sod/Tazobactam Sod 3.375 GM Q8H IV (DC) Sodium Chloride 100 ML Pneumococcal 13-Valent Conj Vacc 0.5 ML ASDIR IM Acetaminophen 650 MG Q4H PRN PRN PO (DC) Dextrose/Sodium Chloride 1,000 ML .[id number] IV Dextrose/Water 25 ML ASDIR PRN IV Insulin Human Lispro LOW DOSE SCALE ASDIR SUBQ Morphine Sulfate 2 MG Q4H PRN PRN IV Ondansetron HCl 4 MG Q4H PRN PRN IV Physical Exam General appearance: alert, awake, no acute distress, conversational, no respiratory distress Head/Eyes: atraumatic, normocephalic, PERRLA Neck: full range of motion, non-tender, no JVD Cardiovascular: normal heart sounds, no gallop, no murmur, no rub Respiratory: aerating well, symmetric expansion, no distress Abdomen: obese, tenderness, no distention Extremities: moves all Neuro/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: alert, oriented X 3, CNII-XII intact, normal speech Skin: dry, intact Psychiatry: not homicidal, not suicidal, no hallucinations Results Findings/Data: Laboratory Tests 09/25 09/25 09/24 09/24 09/24 0549 1755 2332 2017 1902 Chemistry Sodium (137 - 145 mmol/L) 134 L Potassium (3.4 - 5.0 mmol/L) 4.7 Chloride (98 - 107 mmol/L) 104 Carbon Dioxide (22 - 30 mmol/L) 22 BUN (9 - 20 mg/dL) 11 Creatinine (0.7 - 1.3 mg/dL) 0.6 L Glomerular Filtr Rate (>60) 141 Glucose (74 - 106 mg/dL) 231 H POC Glucose (74 - 106 MG/DL) 254 H 242 H 213 H 182 H Calcium (8.4 - 10.2 mg/dL) 7.3 L Total Bilirubin (0.2 - 1.3 mg/dL) 1.3 Conjugated Bilirubin (0 - 0.3 mg/dL) 0 Unconjugated Bilirubin (0 - 1.1 mg/dL) 0.9 AST (15 - 46 U/L) 58 H ALT (13 - 69 U/L) 57 Total Alk Phosphatase (38 - 126 U/L) 135 H Total Protein (6.3 - 8.2 g/dL) 5.0 L Albumin (3.5 - 5.0 g/dL) 2.3 L 09/24 09/24 1414 0959 Chemistry POC Glucose (74 - 106 MG/DL) 115 H 129 H Laboratory Tests 09/25 0549 Hematology WBC (5.0 - 12.0 x10 3/uL) 22.4 H RBC (4.70 - 6.10 x10 6/uL) 3.59 L Hgb (14.0 - 18.0 g/dL) 11.1 L Hct (37.0 - 49.0 %) 34.0 L MCV (80 - 94 fL) 95 H MCH (27 - 31 pg) 30.9 MCHC (33 - 37 g/dL) 32.6 L RDW (11.5 - 15.5 %) 13.2 Plt Count (130 - 400 x10 3/uL) 241 MPV (9.4 - 16.4 fL) 9.5 Neut % (Auto) (43 - 65 %) 91.5 H Lymph % (Auto) (20.5 - 45.5 %) 4.7 L [place] % (Auto) (5.5 - 11.7 %) 3.1 L Eos % (Auto) (0.9 - 2.9 %) 0.0 L Baso % (Auto) (0.2 - 1.0 %) 0.1 L Neut # (Auto) (2.2 - 4.8 x10 3/uL) 20.54 H Lymph # (Auto) (1.3 - 2.9 x10 3/uL) 1.05 L [place] # (Auto) (0.3 - 0.8 x10 3/uL) 0.69 Eos # (Auto) (0.0 - 0.2 x10 3/uL) 0.00 Baso # (Auto) (0.0 - 0.1 x10 3/uL) 0.03 Immature Gran % (0.0 - 2.0 %) 0.6 Nucleated RBC % (0 - 1.0 %) 0.0 Diagnosis, Assessment Plan Plan discussed with: patient, nurse, interdisc care team Free Text DxA P Notes Free text DxA P notes: 69yo M admitted for management of cholecystitis. #Cholecystitis: VARUN s/p lap mag(09/24) -continue management per general surgery consult sevice #T2DM: hyperglycemic; A1c 9.5 -resume metformin, continue PRN SSI #HTN: stable off ARB -continue supportive care #Obesity: BMI > 30 -ensure low salt DM diet < 2000 kcal #HLD: ASCVD > 7.5% -consider statin initiation prior to DC #Dispo: DC pending clinical recovery -hospital medicine will continue to follow at 2055 RPT #:[id number] END OF REPORT [facility] 2019-09-25 19:38:00 ([facility]) Post Anesthesia Evaluation REPORT#:[id number] REPORT STATUS: Signed DATE:09/25/19 TIME: 1937 PATIENT: SEYMOUR SNOW UNIT #: [id number] ROOM/BED: [address] : 48 AGE: 69 SEX: M ATTEND: Lizzy Duke MD ADM AUTHOR: Renate Mays MD * ALL edits or amendments must be made on the electronic/computer document * Post Anesthesia Evaluation Anes. changes from pre-op eval Level of consciousness: patient awake, responsive to commands Vital signs: BP: [ ] HR: [ ] bpm RR: [ ] / min SP02: [ ] % Cardiovascular: vital signs stable, ECG, BP, SpO2, RR within reasonable and normal pre-procedure status Respiratory/Airway: maintains without support Pain: controlled with analgesics (0-3) Hydration: adequate Temp status: normothermic Presence of N/V: no Anesthesia complications: no Other changes requiring f/u: none at 1939 RPT #:[id number] END OF REPORT [facility] 2019-09-25 19:18:00 ([facility]) Operative Note - Full REPORT#:[id number] REPORT STATUS: Signed DATE:09/25/19 TIME: 1917 PATIENT: SEYMOUR SNOW UNIT #: [id number] ROOM/BED: [address] : [birth year] AGE: 69 SEX: M ATTEND: Lizzy Duke MD ADM AUTHOR: Judith Mccoy MD * ALL edits or amendments must be made on the electronic/computer document * Operative Report Start date: 09/25/19 Start time: 1500 Pre-procedure diagnosis: biliary pancreatitis Post-procedure diagnosis: Chronic cholecystitis, cirrhosis Procedures performed: Laparoscopic converted to open cholecystectomy Technique/Procedure: The patient was correctly identified, transferred to the operative room. General anesthesia was administered. 2gm ancef was given. After his abdomen was prepped and draped in a sterile fashion, a mid-line supraumbilical incision was made and an open Kaiser procedure used to place a 12mm trochar. The abdomen was insuflated to 15mmHg. I then placed a 5mm epigastric port followed by a two 5mm right upper quadrant ports. The gallbladder was visualized in the right upper quadrant, it was covered in Omentum. The liver was cirrhotic and firm. The gallbadder was aspirated and the fundus was retrated over the liver, however the liver was too firm and cirrhotic to get good retraction. I attempted to dissect the cystic triangle, however the critical view was not obtained due to the lack of retraction and adhesions. I elected to convert to an open procedure at this time. An oblique incision was made in the right upper quadrant with a 10 blade scalpel , the subcutaneous tissues, muscle and fascia were divided with electrocautery and the abdomen was entered. The bookwalter retractor was used to give exposure. I was able to take the gallbladder down from the cyctic plate in a dome down fashion, however due to the adhesions was unable to delineate the cystic duct or common duct, I opened the gallbladder and suctioned in hopes to identify the cystic duct to preform a cholangiogram, however the orifice was obliterated. The safest option at that point was amputation of the gallbladder. I amputated the gallbladder as far down the wall as possible, leaving an approximately 1 CM cuff, using electrocautery for hemostasis, I then closed the cuff using locking 0-Vycril suture. The abdomen was irrigated and arrista powder was sprinkled into the liver bed. a 19F arti drain was inserted through the most lateral right port site placed into the liver bed, and secured with 2-0 Nylon. The fasica was closed in 2 layers with #1- prolene suture. The fascia at the umbilical port site was closed with #0-vycril suture and the skin was closed with skin baljeet. The pt tolerated the procedure well. All instrument, needle and towel counts were correct. The patient was extubated and transfered to the PACU Primary Surgeon: Judith Mccoy MD Cake Froster(s): Rickey Glover MD PGY1 Anesthesia: general anesthesia Indications: 69 year old man with 2 weeks of right upper quadrant pain, pt had US showing acute cholecystitis, elevated bilirubin and elevated lipase. Pt was consented for laparoscopic cholecystectomy with possible conversion to open procedure Operative findings: Severe cholecystitis, cirrhotic liver Complications: none (none) Estimated blood loss in ml's: 150mg Specimens removed/altered: Gallbladder Implant(s): none Urine output: 100 at 1950 RPT #:[id number] END OF REPORT [facility] 2019-09-25 11:50:00 ([facility] General Surgery Progress Note REPORT#:[id number] REPORT STATUS: Signed DATE:09/25/19 TIME: 1150 PATIENT: SEYMOUR SNOW UNIT #: [id number] ROOM/BED: [address] : 48 AGE: 69 SEX: M ATTEND: Lizzy Duke MD ADM AUTHOR: Rickey Glover MD R1 * ALL edits or amendments must be made on the electronic/computer document * Subjective Comments: Patient reports that he has had no nausea nor vomiting today. Reports that he has minimal abdominal pain. Only complaint is some discomfort at IV site. With farmworker vegetable present at bedside, we consented patient to the benefits, risks (bleeding, pain, infection, damage to local bowel or organs/bile ducts) and alternatives to surgery). Patient expressed understanding of the above and agrees to proceed today. Has been made NPO overnight. ROS negative unless noted in above HPI of the following systems: constitutional, eyes, HENT, neck, neuro, CV, resp, GI, , msk, skin Objective General VS/I O: Last Documented: Result Date Time Pulse Ox 91 09/24 1001 B/P 125/86 09/24 1001 B/P Mean 99.3 09/24 1001 O2 Delivery Room air 09/24 1001 Pulse 59 09/24 1001 Resp 15 09/24 1001 Temp 36.4 09/24 0719 Vital Signs Date Temp Pulse Resp B/P B/P Mean Pulse Ox FiO2 05/-09/24 36.4-37.3 59-75 15-18 115-134/73-86 0.0-100.0 91-95 24 hour I O ending at 0700: 09/24 0700 05/08 1900 Intake Total 1900.00 Output Total Balance 1900.00 Intake, IV 900.00 Intake, Oral 1000 Patient Weight Weight (lb): 240 Weight (oz): 8.07 Weight (kg): 109.091 Medications: Active Meds + DC'd Last 24 Hrs Ephedrine Sulfate 0 .STK-MED ONE .ROUTE (DC) Fentanyl Citrate 0 .STK-MED ONE .ROUTE (DC) Lidocaine HCl 0 .STK-MED ONE .ROUTE (DC) Midazolam HCl 0 .STK-MED ONE .ROUTE (DC) Propofol 0 .STK-MED ONE .ROUTE (DC) Rocuronium [place] 0 .STK-MED ONE .ROUTE (DC) Magnesium Sulfate 100 ML ONCE ONE IV (DC) Losartan Potassium 50 MG BID PO Piperacillin Sod/Tazobactam Sod 3.375 GM Q8H IV Sodium Chloride 100 ML Pneumococcal 13-Valent Conj Vacc 0.5 ML ASDIR IM Acetaminophen 650 MG Q4H PRN PRN PO Dextrose/Sodium Chloride 1,000 ML .[id number] IV Dextrose/Water 25 ML ASDIR PRN IV Insulin Human Lispro LOW DOSE SCALE ASDIR SUBQ Morphine Sulfate 2 MG Q4H PRN PRN IV Ondansetron HCl 4 MG Q4H PRN PRN IV Nutrtion assessment: The data set between the solid lines has been imported from the dietitian's assessment. Any exceptions have been noted under Provider comments. BMI Calculated: 30.9 Nutrition related diagnosis: Nutrition diagnosis details: Nutrition problem: Nutrition etiology: Nutrition signs and symptoms: Nutrition prescription: Dietitian name: Assessment completed: Provider comments on imported dietitian assessment: Physical Exam General appearance: alert, awake, oriented HEENT: anicteric, atraumatic, moist mucosal membranes Neck: full range of motion, non-tender, no masses or swelling Cardiovascular: normal capillary refill, normal heart sounds, normal S1/S2 Respiratory: aerating well, clear to auscultation, equal breath sounds Abdomen: tenderness (RUQ to palpation; less today), soft, no distention Extremities: moves all, normal capillary refill, normal temperature Neuro/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: alert, oriented x 3, normal speech Skin: dry, intact, normal color Psychiatry: normal affect, normal judgment/insight, normal mood Results Findings/Data: Laboratory Tests 09/25/19 0426: [Embedded Image Not Available] Laboratory Tests 09/24 09/24 09/24 09/23 09/23 0603 0426 0426 1921 1516 Chemistry Sodium (137 - 145 mmol/L) 136 L Potassium (3.4 - 5.0 mmol/L) 3.6 Chloride (98 - 107 mmol/L) 104 Carbon Dioxide (22 - 30 mmol/L) 29 BUN (9 - 20 mg/dL) 7 L Creatinine (0.7 - 1.3 mg/dL) 0.6 L Glomerular Filtr Rate (>60) 141 Glucose (74 - 106 mg/dL) 132 H POC Glucose (74 - 106 MG/DL) 119 H 140 H 227 H Calcium (8.4 - 10.2 mg/dL) 8.3 L Magnesium (1.6 - 2.3 mg/dL) 1.2 L Total Bilirubin (0.2 - 1.3 mg/dL) 2.0 H Conjugated Bilirubin (0 - 0.3 mg/dL) 0 Unconjugated Bilirubin (0 - 1.1 mg/dL) 1.1 AST (15 - 46 U/L) 78 H ALT (13 - 69 U/L) 69 Total Alk Phosphatase (38 - 126 U/L) 236 H Total Protein (6.3 - 8.2 g/dL) 6.6 Albumin (3.5 - 5.0 g/dL) 3.1 L Laboratory Tests 09/24 0426 Hematology WBC (5.0 - 12.0 x10 3/uL) 8.3 RBC (4.70 - 6.10 x10 6/uL) 4.01 L Hgb (14.0 - 18.0 g/dL) 12.3 L Hct (37.0 - 49.0 %) 37.1 MCV (80 - 94 fL) 93 MCH (27 - 31 pg) 30.7 MCHC (33 - 37 g/dL) 33.2 RDW (11.5 - 15.5 %) 13.1 Plt Count (130 - 400 x10 3/uL) 260 MPV (9.4 - 16.4 fL) 9.0 L Neut % (Auto) (43 - 65 %) 63.5 Lymph % (Auto) (20.5 - 45.5 %) 26.7 [place] % (Auto) (5.5 - 11.7 %) 6.2 Eos % (Auto) (0.9 - 2.9 %) 2.2 Baso % (Auto) (0.2 - 1.0 %) 0.8 Neut # (Auto) (2.2 - 4.8 x10 3/uL) 5.26 H Lymph # (Auto) (1.3 - 2.9 x10 3/uL) 2.21 [place] # (Auto) (0.3 - 0.8 x10 3/uL) 0.51 Eos # (Auto) (0.0 - 0.2 x10 3/uL) 0.18 Baso # (Auto) (0.0 - 0.1 x10 3/uL) 0.07 Immature Gran % (0.0 - 2.0 %) 0.6 Nucleated RBC % (0 - 1.0 %) 0.0 Results: All labs and results reviewed by attending physician Diagnosis, Assessment Plan Free Text A P: ASSESSMENT: 69 y/o GANDHI w/ h/o biliary colic. MRCP demonstrates no CBD stones. COVID test is negative. Laparoscopic cholecystectomy today. Injuries/Acute Problems: -Biliary pancreatitis Chronic Medical Problems/Comorbidities: -HTN -DM PLAN: Explained to patient the risks, benefits and alternatives to surgery (see above) . Patient expressed understadning of the above and agrees to proceed. Surgery today- lap mag Cont. Abx and IVF NPO today, low fat diet after procedure L/D/A: PIV DVT prophylaxis: SCDs Lovenox GI prophylaxis: not indicated Diet: advance as [place] to 2200 kCal ADA, low fat diet Activity: as tolerated Dispo: continue on medicine and we will cont. to follow. Code Status: FULL Attestations Attestation needed: teaching physician at 1154 RPT #:[id number] END OF REPORT [facility] 2019-09-25 11:50:00 [facility] General Surgery Progress Note REPORT#:[id number] REPORT STATUS: Signed DATE:09/25/19 TIME: 1150 PATIENT: SEYMOUR SNOW UNIT #: [id number] ROOM/BED: [address] : 48 AGE: 69 SEX: M ATTEND: Lizzy Duke MD ADM AUTHOR: Rickey Glover MD R1 * ALL edits or amendments must be made on the electronic/computer document * Rickey Glover 09/25/19 1150: Subjective Comments: Patient reports that he has had no nausea nor vomiting today. Reports that he has minimal abdominal pain. Only complaint is some discomfort at IV site. With farmworker vegetable present at bedside, we consented patient to the benefits, risks (bleeding, pain, infection, damage to local bowel or organs/bile ducts) and alternatives to surgery). Patient expressed understanding of the above and agrees to proceed today. Has been made NPO overnight. ROS negative unless noted in above HPI of the following systems: constitutional, eyes, HENT, neck, neuro, CV, resp, GI, , msk, skin Objective General VS/I O: Last Documented: Result Date Time Pulse Ox 91 09/24 1001 B/P 125/86 / 1001 B/P Mean 99.3 09/24 1001 O2 Delivery Room air 09/24 1001 Pulse 59 09/24 1001 Resp 15 09/24 1001 Temp 36.4 09/24 0719 Vital Signs Date Temp Pulse Resp B/P B/P Mean Pulse Ox FiO2 09/23-09/24 36.4-37.3 59-75 15-18 115-134/73-86 0.0-100.0 91-95 24 hour I O ending at 0700: 09/24 0700 / 1900 Intake Total 1900.00 Output Total Balance 1900.00 Intake, IV 900.00 Intake, Oral 1000 Patient Weight Weight (lb): 240 Weight (oz): 8.07 Weight (kg): 109.091 Medications: Active Meds + DC'd Last 24 Hrs Ephedrine Sulfate 0 .STK-MED ONE .ROUTE (DC) Fentanyl Citrate 0 .STK-MED ONE .ROUTE (DC) Lidocaine HCl 0 .STK-MED ONE .ROUTE (DC) Midazolam HCl 0 .STK-MED ONE .ROUTE (DC) Propofol 0 .STK-MED ONE .ROUTE (DC) Rocuronium [place] 0 .STK-MED ONE .ROUTE (DC) Magnesium Sulfate 100 ML ONCE ONE IV (DC) Losartan Potassium 50 MG BID PO Piperacillin Sod/Tazobactam Sod 3.375 GM Q8H IV Sodium Chloride 100 ML Pneumococcal 13-Valent Conj Vacc 0.5 ML ASDIR IM Acetaminophen 650 MG Q4H PRN PRN PO Dextrose/Sodium Chloride 1,000 ML .[id number] IV Dextrose/Water 25 ML ASDIR PRN IV Insulin Human Lispro LOW DOSE SCALE ASDIR SUBQ Morphine Sulfate 2 MG Q4H PRN PRN IV Ondansetron HCl 4 MG Q4H PRN PRN IV Nutrtion assessment: The data set between the solid lines has been imported from the dietitian's assessment. Any exceptions have been noted under Provider comments. BMI Calculated: 30.9 Nutrition related diagnosis: Nutrition diagnosis details: Nutrition problem: Nutrition etiology: Nutrition signs and symptoms: Nutrition prescription: Dietitian name: Assessment completed: Provider comments on imported dietitian assessment: Physical Exam General appearance: alert, awake, oriented HEENT: anicteric, atraumatic, moist mucosal membranes Neck: full range of motion, non-tender, no masses or swelling Cardiovascular: normal capillary refill, normal heart sounds, normal S1/S2 Respiratory: aerating well, clear to auscultation, equal breath sounds Abdomen: tenderness (RUQ to palpation; less today), soft, no distention Extremities: moves all, normal capillary refill, normal temperature Neuro/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: alert, oriented x 3, normal speech Skin: dry, intact, normal color Psychiatry: normal affect, normal judgment/insight, normal mood Results Findings/Data: Laboratory Tests 09/25/19 0426: [Embedded Image Not Available] Laboratory Tests 09/24 09/24 09/24 09/23 09/23 0603 0426 0426 1921 1516 Chemistry Sodium (137 - 145 mmol/L) 136 L Potassium (3.4 - 5.0 mmol/L) 3.6 Chloride (98 - 107 mmol/L) 104 Carbon Dioxide (22 - 30 mmol/L) 29 BUN (9 - 20 mg/dL) 7 L Creatinine (0.7 - 1.3 mg/dL) 0.6 L Glomerular Filtr Rate (>60) 141 Glucose (74 - 106 mg/dL) 132 H POC Glucose (74 - 106 MG/DL) 119 H 140 H 227 H Calcium (8.4 - 10.2 mg/dL) 8.3 L Magnesium (1.6 - 2.3 mg/dL) 1.2 L Total Bilirubin (0.2 - 1.3 mg/dL) 2.0 H Conjugated Bilirubin (0 - 0.3 mg/dL) 0 Unconjugated Bilirubin (0 - 1.1 mg/dL) 1.1 AST (15 - 46 U/L) 78 H ALT (13 - 69 U/L) 69 Total Alk Phosphatase (38 - 126 U/L) 236 H Total Protein (6.3 - 8.2 g/dL) 6.6 Albumin (3.5 - 5.0 g/dL) 3.1 L Laboratory Tests 09/24 0426 Hematology WBC (5.0 - 12.0 x10 3/uL) 8.3 RBC (4.70 - 6.10 x10 6/uL) 4.01 L Hgb (14.0 - 18.0 g/dL) 12.3 L Hct (37.0 - 49.0 %) 37.1 MCV (80 - 94 fL) 93 MCH (27 - 31 pg) 30.7 MCHC (33 - 37 g/dL) 33.2 RDW (11.5 - 15.5 %) 13.1 Plt Count (130 - 400 x10 3/uL) 260 MPV (9.4 - 16.4 fL) 9.0 L Neut % (Auto) (43 - 65 %) 63.5 Lymph % (Auto) (20.5 - 45.5 %) 26.7 [place] % (Auto) (5.5 - 11.7 %) 6.2 Eos % (Auto) (0.9 - 2.9 %) 2.2 Baso % (Auto) (0.2 - 1.0 %) 0.8 Neut # (Auto) (2.2 - 4.8 x10 3/uL) 5.26 H Lymph # (Auto) (1.3 - 2.9 x10 3/uL) 2.21 [place] # (Auto) (0.3 - 0.8 x10 3/uL) 0.51 Eos # (Auto) (0.0 - 0.2 x10 3/uL) 0.18 Baso # (Auto) (0.0 - 0.1 x10 3/uL) 0.07 Immature Gran % (0.0 - 2.0 %) 0.6 Nucleated RBC % (0 - 1.0 %) 0.0 Results: All labs and results reviewed by attending physician Diagnosis, Assessment Plan Free Text A P: ASSESSMENT: 69 y/o GANDHI w/ h/o biliary colic. MRCP demonstrates no CBD stones. COVID test is negative. Laparoscopic cholecystectomy today. Injuries/Acute Problems: -Biliary pancreatitis Chronic Medical Problems/Comorbidities: -HTN -DM PLAN: Explained to patient the risks, benefits and alternatives to surgery (see above) . Patient expressed understadning of the above and agrees to proceed. Surgery today- lap mag Cont. Abx and IVF NPO today, low fat diet after procedure L/D/A: PIV DVT prophylaxis: SCDs Lovenox GI prophylaxis: not indicated Diet: advance as [place] to 2200 kCal ADA, low fat diet Activity: as tolerated Dispo: continue on medicine and we will cont. to follow. Code Status: FULL Attestations Attestation needed: teaching physician Judith Mccoy 09/26/19 0730: Attestations Teaching Physician Attestation F/U visit w/ resident: I saw the patient with the resident and . . . agree with the resident's findings and plan. Pt consented for laparoscopic cholecystectomy today with possible conversion to an open procedure. All questions answered via call worker. at 1154 RPT #:[id number] END OF REPORT [facility] 2019-09-25 11:50:00 ([facility] General Surgery Progress Note REPORT#:[id number] REPORT STATUS: Signed DATE:09/25/19 TIME: 1150 PATIENT: SEYMOUR SNOW UNIT #: [id number] ROOM[facility]BED: [facility] : 48 AGE: 69 SEX: M ATTEND: Lizzy Duke MD ADM AUTHOR: Rickey Glover MD R1 * ALL edits or amendments must be made on the electronic/computer document * Rickey Glover 09/25/19 1150: Subjective Comments: Patient reports that he has had no nausea nor vomiting today. Reports that he has minimal abdominal pain. Only complaint is some discomfort at IV site. With farmworker vegetable present at bedside, we consented patient to the benefits, risks (bleeding, pain, infection, damage to local bowel or organs/bile ducts) and alternatives to surgery). Patient expressed understanding of the above and agrees to proceed today. Has been made NPO overnight. ROS negative unless noted in above HPI of the following systems: constitutional, eyes, HENT, neck, neuro, CV, resp, GI, , msk, skin Objective General VS/I O: Last Documented: Result Date Time Pulse Ox 91 09/24 1001 B/P 125/86 09/24 1001 B/P Mean 99.3 09/24 1001 O2 Delivery Room air 09/24 1001 Pulse 59 09/24 1001 Resp 15 09/24 1001 Temp 36.4 09/24 0719 Vital Signs Date Temp Pulse Resp B/P B/P Mean Pulse Ox FiO2 09/23-09/24 36.4-37.3 59-75 15-18 115-134/73-86 0.0-100.0 91-95 24 hour I O ending at 0700: 09/24 0700 09/23 1900 Intake Total 1900.00 Output Total Balance 1900.00 Intake, IV 900.00 Intake, Oral 1000 Patient Weight Weight (lb): 240 Weight (oz): 8.07 Weight (kg): 109.091 Medications: Active Meds + DC'd Last 24 Hrs Ephedrine Sulfate 0 .STK-MED ONE .ROUTE (DC) Fentanyl Citrate 0 .STK-MED ONE .ROUTE (DC) Lidocaine HCl 0 .STK-MED ONE .ROUTE (DC) Midazolam HCl 0 .STK-MED ONE .ROUTE (DC) Propofol 0 .STK-MED ONE .ROUTE (DC) Rocuronium [place] 0 .STK-MED ONE .ROUTE (DC) Magnesium Sulfate 100 ML ONCE ONE IV (DC) Losartan Potassium 50 MG BID PO Piperacillin Sod/Tazobactam Sod 3.375 GM Q8H IV Sodium Chloride 100 ML Pneumococcal 13-Valent Conj Vacc 0.5 ML ASDIR IM Acetaminophen 650 MG Q4H PRN PRN PO Dextrose/Sodium Chloride 1,000 ML .[id number] IV Dextrose/Water 25 ML ASDIR PRN IV Insulin Human Lispro LOW DOSE SCALE ASDIR SUBQ Morphine Sulfate 2 MG Q4H PRN PRN IV Ondansetron HCl 4 MG Q4H PRN PRN IV Nutrtion assessment: The data set between the solid lines has been imported from the dietitian's assessment. Any exceptions have been noted under Provider comments. BMI Calculated: 30.9 Nutrition related diagnosis: Nutrition diagnosis details: Nutrition problem: Nutrition etiology: Nutrition signs and symptoms: Nutrition prescription: Dietitian name: Assessment completed: Provider comments on imported dietitian assessment: Physical Exam General appearance: alert, awake, oriented HEENT: anicteric, atraumatic, moist mucosal membranes Neck: full range of motion, non-tender, no masses or swelling Cardiovascular: normal capillary refill, normal heart sounds, normal S1/S2 Respiratory: aerating well, clear to auscultation, equal breath sounds Abdomen: tenderness (RUQ to palpation; less today), soft, no distention Extremities: moves all, normal capillary refill, normal temperature Neuro/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: alert, oriented x 3, normal speech Skin: dry, intact, normal color Psychiatry: normal affect, normal judgment/insight, normal mood Results Findings/Data: Laboratory Tests 09/25/19425: [Embedded Image Not Available] Laboratory Tests 09/24 09/24 09/24 09/23 09/23 0603 0426 0426 1921 1516 Chemistry Sodium (137 - 145 mmol/L) 136 L Potassium (3.4 - 5.0 mmol/L) 3.6 Chloride (98 - 107 mmol/L) 104 Carbon Dioxide (22 - 30 mmol/L) 29 BUN (9 - 20 mg/dL) 7 L Creatinine (0.7 - 1.3 mg/dL) 0.6 L Glomerular Filtr Rate (>60) 141 Glucose (74 - 106 mg/dL) 132 H POC Glucose (74 - 106 MG/DL) 119 H 140 H 227 H Calcium (8.4 - 10.2 mg/dL) 8.3 L Magnesium (1.6 - 2.3 mg/dL) 1.2 L Total Bilirubin (0.2 - 1.3 mg/dL) 2.0 H Conjugated Bilirubin (0 - 0.3 mg/dL) 0 Unconjugated Bilirubin (0 - 1.1 mg/dL) 1.1 AST (15 - 46 U/L) 78 H ALT (13 - 69 U/L) 69 Total Alk Phosphatase (38 - 126 U/L) 236 H Total Protein (6.3 - 8.2 g/dL) 6.6 Albumin (3.5 - 5.0 g/dL) 3.1 L Laboratory Tests 09/24 0426 Hematology WBC (5.0 - 12.0 x10 3/uL) 8.3 RBC (4.70 - 6.10 x10 6/uL) 4.01 L Hgb (14.0 - 18.0 g/dL) 12.3 L Hct (37.0 - 49.0 %) 37.1 MCV (80 - 94 fL) 93 MCH (27 - 31 pg) 30.7 MCHC (33 - 37 g/dL) 33.2 RDW (11.5 - 15.5 %) 13.1 Plt Count (130 - 400 x10 3/uL) 260 MPV (9.4 - 16.4 fL) 9.0 L Neut % (Auto) (43 - 65 %) 63.5 Lymph % (Auto) (20.5 - 45.5 %) 26.7 [place] % (Auto) (5.5 - 11.7 %) 6.2 Eos % (Auto) (0.9 - 2.9 %) 2.2 Baso % (Auto) (0.2 - 1.0 %) 0.8 Neut # (Auto) (2.2 - 4.8 x10 3/uL) 5.26 H Lymph # (Auto) (1.3 - 2.9 x10 3/uL) 2.21 [place] # (Auto) (0.3 - 0.8 x10 3/uL) 0.51 Eos # (Auto) (0.0 - 0.2 x10 3/uL) 0.18 Baso # (Auto) (0.0 - 0.1 x10 3/uL) 0.07 Immature Gran % (0.0 - 2.0 %) 0.6 Nucleated RBC % (0 - 1.0 %) 0.0 Results: All labs and results reviewed by attending physician Diagnosis, Assessment Plan Free Text A P: ASSESSMENT: 69 y/o GANDHI w/ h/o biliary colic. MRCP demonstrates no CBD stones. COVID test is negative. Laparoscopic cholecystectomy today. Injuries/Acute Problems: -Biliary pancreatitis Chronic Medical Problems/Comorbidities: -HTN -DM PLAN: Explained to patient the risks, benefits and alternatives to surgery (see above) . Patient expressed understadning of the above and agrees to proceed. Surgery today- lap mag Cont. Abx and IVF NPO today, low fat diet after procedure L/D/A: PIV DVT prophylaxis: SCDs Lovenox GI prophylaxis: not indicated Diet: advance as [place] to 2200 kCal ADA, low fat diet Activity: as tolerated Dispo: continue on medicine and we will cont. to follow. Code Status: FULL Attestations Attestation needed: teaching physician Judith Mccoy 09/26/19 0730: Attestations Teaching Physician Attestation F/U visit w/ resident: I saw the patient with the resident and . . . agree with the resident's findings and plan. Pt consented for laparoscopic cholecystectomy today with possible conversion to an open procedure. All questions answered via call worker. at 1154 at 0756 RPT #:[id number] END OF REPORT [facility] 2019-09-25 10:13:00 [facility] REPORT#:[id number] REPORT STATUS: Signed DATE:09/25/19 TIME: 1013 PATIENT: SEYMOUR SNOW UNIT #: [id number] ROOM/BED: [address] : 48 AGE: 69 SEX: M ATTEND: Lizzy Duke MD ADM AUTHOR: Mariana Siegel * ALL edits or amendments must be made on the electronic/computer document * Subjective Chief Complaint: abdominal pain Comments: Interval Hx: VARUN overnight Objective General VS/I O: Vital Signs: Date Time Temp Pulse Resp B/P B/P Pulse O2 O2 Flow FiO2 Mean Ox Delivery Rate 09/24 1001 59 15 125/86 99.3 91 Room air 09/24 1001 59 15 125/86 99.3 91 Room air / 0719 97.5 65 15 129/77 94.2 95 Room air / 0403 97.9 65 16 134/83 100.0 95 Room air / 0022 98.2 75 18 123/74 0.0 95 Room air / 0020 98.2 18 123/74 90.1 / 1920 99.1 73 18 115/77 90.0 94 Room air / 1515 97.7 71 17 121/73 88.6 93 Room air 05/ 1142 97.9 70 18 119/69 85.7 93 Room air 24 hour I O ending at 0700: 09/24 0700 05/08 1900 Intake Total 1900.00 Output Total Balance 1900.00 Intake, IV 900.00 Intake, Oral 1000 Patient Weight Weight (lb): 240 Weight (oz): 8.07 Weight (kg): 109.091 Medications: Active Meds + DC'd Last 24 Hrs Ephedrine Sulfate 0 .STK-MED ONE .ROUTE (DC) Fentanyl Citrate 0 .STK-MED ONE .ROUTE (DC) Lidocaine HCl 0 .STK-MED ONE .ROUTE (DC) Midazolam HCl 0 .STK-MED ONE .ROUTE (DC) Propofol 0 .STK-MED ONE .ROUTE (DC) Rocuronium [place] 0 .STK-MED ONE .ROUTE (DC) Magnesium Sulfate 100 ML ONCE ONE IV (DC) Losartan Potassium 50 MG BID PO Piperacillin Sod/Tazobactam Sod 3.375 GM Q8H IV Sodium Chloride 100 ML Pneumococcal 13-Valent Conj Vacc 0.5 ML ASDIR IM Acetaminophen 650 MG Q4H PRN PRN PO Dextrose/Sodium Chloride 1,000 ML .[id number] IV Dextrose/Water 25 ML ASDIR PRN IV Insulin Human Lispro LOW DOSE SCALE ASDIR SUBQ Morphine Sulfate 2 MG Q4H PRN PRN IV Ondansetron HCl 4 MG Q4H PRN PRN IV Physical Exam General appearance: alert, awake, oriented, no acute distress, conversational, no respiratory distress Head/Eyes: atraumatic, normocephalic, PERRLA Neck: full range of motion, non-tender, no JVD Cardiovascular: normal heart sounds, no gallop, no murmur, no rub Respiratory: aerating well, symmetric expansion, no distress Abdomen: obese, tenderness, no distention Extremities: moves all Neuro/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: alert, oriented X 3, CNII-XII intact, normal speech Skin: dry, intact Psychiatry: not homicidal, not suicidal, no hallucinations Results Findings/Data: Laboratory Tests 09/24 09/24 09/24 09/23 09/23 0603 0426 0426 1921 1516 Chemistry Sodium (137 - 145 mmol/L) 136 L Potassium (3.4 - 5.0 mmol/L) 3.6 Chloride (98 - 107 mmol/L) 104 Carbon Dioxide (22 - 30 mmol/L) 29 BUN (9 - 20 mg/dL) 7 L Creatinine (0.7 - 1.3 mg/dL) 0.6 L Glomerular Filtr Rate (>60) 141 Glucose (74 - 106 mg/dL) 132 H POC Glucose (74 - 106 MG/DL) 119 H 140 H 227 H Calcium (8.4 - 10.2 mg/dL) 8.3 L Magnesium (1.6 - 2.3 mg/dL) 1.2 L Total Bilirubin (0.2 - 1.3 mg/dL) 2.0 H Conjugated Bilirubin (0 - 0.3 mg/dL) 0 Unconjugated Bilirubin (0 - 1.1 mg/dL) 1.1 AST (15 - 46 U/L) 78 H ALT (13 - 69 U/L) 69 Total Alk Phosphatase (38 - 126 U/L) 236 H Total Protein (6.3 - 8.2 g/dL) 6.6 Albumin (3.5 - 5.0 g/dL) 3.1 L 09/23 1141 Chemistry POC Glucose (74 - 106 MG/DL) 270 H Laboratory Tests 09/24 0426 Hematology WBC (5.0 - 12.0 x10 3/uL) 8.3 RBC (4.70 - 6.10 x10 6/uL) 4.01 L Hgb (14.0 - 18.0 g/dL) 12.3 L Hct (37.0 - 49.0 %) 37.1 MCV (80 - 94 fL) 93 MCH (27 - 31 pg) 30.7 MCHC (33 - 37 g/dL) 33.2 RDW (11.5 - 15.5 %) 13.1 Plt Count (130 - 400 x10 3/uL) 260 MPV (9.4 - 16.4 fL) 9.0 L Neut % (Auto) (43 - 65 %) 63.5 Lymph % (Auto) (20.5 - 45.5 %) 26.7 [place] % (Auto) (5.5 - 11.7 %) 6.2 Eos % (Auto) (0.9 - 2.9 %) 2.2 Baso % (Auto) (0.2 - 1.0 %) 0.8 Neut # (Auto) (2.2 - 4.8 x10 3/uL) 5.26 H Lymph # (Auto) (1.3 - 2.9 x10 3/uL) 2.21 [place] # (Auto) (0.3 - 0.8 x10 3/uL) 0.51 Eos # (Auto) (0.0 - 0.2 x10 3/uL) 0.18 Baso # (Auto) (0.0 - 0.1 x10 3/uL) 0.07 Immature Gran % (0.0 - 2.0 %) 0.6 Nucleated RBC % (0 - 1.0 %) 0.0 Diagnosis, Assessment Plan Plan discussed with: patient, nurse, interdisc care team Free Text DxA P Notes Free text DxA P notes: 69yo M admitted for management of cholecystitis. #Cholecystitis: NPO for lap mag today -continue management per general surgery consult sevice #HTN: controlled -continue ARB #T2DM: stable FSG; A1c 9.5 -resume metformin postop, continue PRN SSI #Obesity: BMI > 30 -ensure low salt DM diet < 2000 kcal #HLD: ASCVD > 7.5% -consider statin initiation prior to DC #Dispo: DC pending clinical recovery -hospital medicine will continue to follow at 1014 RPT #:[id number] END OF REPORT [facility] 2019-09-24 12:41:00 [facility] Hospitalist Progress Note REPORT#:[id number] REPORT STATUS: Signed DATE:09/24/19 TIME: 1241 PATIENT: SEYMOUR SNOW UNIT #: [id number] ROOM/BED: [address] : 48 AGE: 69 SEX: M ATTEND: Lizzy Duke MD ADM AUTHOR: Mariana Siegel * ALL edits or amendments must be made on the electronic/computer document * Subjective Chief Complaint: abdominal pain Comments: Interval Hx: VARUN overnight Objective General VS/I O: Vital Signs: Date Time Temp Pulse Resp B/P B/P Pulse O2 O2 Flow FiO2 Mean Ox Delivery Rate 09/23 1142 97.9 70 18 119/69 85.7 93 Room air 09/23 0744 97.9 69 16 128/77 94.3 93 Room air 09/23 0312 99.0 71 16 124/80 95.0 92 / 2311 98.1 68 16 124/76 92.0 93 09/22 1920 98.1 68 16 134/82 99.3 94 09/22 1519 97.5 63 14 133/86 101.5 94 Room air 24 hour I O ending at 0700: 09/23 0700 09/22 1900 Intake Total Output Total Balance Patient 109.091 kg Weight Patient Weight Weight (lb): 240 Weight (oz): 8.07 Weight (kg): 109.091 Medications: Active Meds + DC'd Last 24 Hrs Losartan Potassium 50 MG BID PO Piperacillin Sod/Tazobactam Sod 3.375 GM Q8H IV Sodium Chloride 100 ML Pneumococcal 13-Valent Conj Vacc 0.5 ML ASDIR IM Acetaminophen 650 MG Q4H PRN PRN PO Dextrose/Sodium Chloride 1,000 ML .[id number] IV Dextrose/Water 25 ML ASDIR PRN IV Insulin Human Lispro LOW DOSE SCALE ASDIR SUBQ Morphine Sulfate 2 MG Q4H PRN PRN IV Ondansetron HCl 4 MG Q4H PRN PRN IV Physical Exam General appearance: alert, awake, oriented, no acute distress, conversational, no respiratory distress Head/Eyes: atraumatic, normocephalic, PERRLA Neck: full range of motion, non-tender, no JVD Cardiovascular: normal heart sounds, no gallop, no murmur, no rub Respiratory: aerating well, symmetric expansion, no distress Abdomen: obese, tenderness, no distention Extremities: moves all Neuro/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: alert, oriented X 3, CNII-XII intact, normal speech Skin: dry, intact Psychiatry: not homicidal, not suicidal, no hallucinations Results Findings/Data: Laboratory Tests 09/23 09/23 09/23 09/22 09/22 1141 0804 0547 1919 1545 Chemistry Sodium (137 - 145 mmol/L) 137 Potassium (3.4 - 5.0 mmol/L) 3.6 Chloride (98 - 107 mmol/L) 105 Carbon Dioxide (22 - 30 mmol/L) 25 BUN (9 - 20 mg/dL) 10 Creatinine (0.7 - 1.3 mg/dL) 0.7 Glomerular Filtr Rate (>60) 118 Glucose (74 - 106 mg/dL) 152 H POC Glucose (74 - 106 MG/DL) 270 H 133 H 283 H 208 H Calcium (8.4 - 10.2 mg/dL) 8.2 L Phosphorus (2.5 - 4.5 mg/dL) 3.3 Magnesium (1.6 - 2.3 mg/dL) 0.9 L Total Bilirubin (0.2 - 1.3 mg/dL) 1.8 H Conjugated Bilirubin (0 - 0.3 mg/dL) 0 Unconjugated Bilirubin (0 - 1.1 mg/dL) 1.0 AST (15 - 46 U/L) 56 H ALT (13 - 69 U/L) 66 Total Alk Phosphatase (38 - 126 U/L) 221 H Total Protein (6.3 - 8.2 g/dL) 6.4 Albumin (3.5 - 5.0 g/dL) 3.0 L 09/22 1248 Chemistry POC Glucose (74 - 106 MG/DL) 136 H Laboratory Tests 09/23 0555 Hematology WBC (5.0 - 12.0 x10 3/uL) 10.5 RBC (4.70 - 6.10 x10 6/uL) 3.98 L Hgb (14.0 - 18.0 g/dL) 12.3 L Hct (37.0 - 49.0 %) 36.4 L MCV (80 - 94 fL) 92 MCH (27 - 31 pg) 30.9 MCHC (33 - 37 g/dL) 33.8 RDW (11.5 - 15.5 %) 13.2 Plt Count (130 - 400 x10 3/uL) 293 MPV (9.4 - 16.4 fL) 9.2 L Neut % (Auto) (43 - 65 %) 70.3 H Lymph % (Auto) (20.5 - 45.5 %) 21.2 [place] % (Auto) (5.5 - 11.7 %) 5.4 L Eos % (Auto) (0.9 - 2.9 %) 1.6 Baso % (Auto) (0.2 - 1.0 %) 0.7 Neut # (Auto) (2.2 - 4.8 x10 3/uL) 7.35 H Lymph # (Auto) (1.3 - 2.9 x10 3/uL) 2.22 [place] # (Auto) (0.3 - 0.8 x10 3/uL) 0.56 Eos # (Auto) (0.0 - 0.2 x10 3/uL) 0.17 Baso # (Auto) (0.0 - 0.1 x10 3/uL) 0.07 Immature Gran % (0.0 - 2.0 %) 0.8 Nucleated RBC % (0 - 1.0 %) 0.0 Diagnosis, Assessment Plan Plan discussed with: patient, consultants, nurse, interdisc care team Free Text DxA P Notes Free text DxA P notes: 69yo M admitted for management of cholecystitis. #Cholecystitis: surgical intervention pending(marko 09/24) COVID PCR -continue management per general surgery consult sevmarian #HTN: controlled -continue ARB #T2DM: stable FSG; A1c 9.5 -resume metformin postop, continue PRN SSI #Obesity: BMI > 30 -ensure low salt DM diet < 2000 kcal #HLD: ASCVD > 7.5% -consider statin initiation prior to DC #Dispo: DC pending clinical recovery -hospital medicine will continue to follow at 2226 RPT #:[id number] END OF REPORT [facility] 2019-09-24 12:41:00 [facility] Hospitalist Progress Note REPORT#:[id number] REPORT STATUS: Signed DATE:09/24/19 TIME: 1241 PATIENT: SEYMOUR SNOW UNIT #: [id number] ROOM/BED: [address] : 48 AGE: 69 SEX: M ATTEND: Lizzy Duke MD ADM AUTHOR: Mariana Siegel * ALL edits or amendments must be made on the electronic/computer document * See Addendum Subjective Chief Complaint: abdominal pain Comments: Interval Hx: VARUN overnight Objective General VS/I O: Vital Signs: Date Time Temp Pulse Resp B/P B/P Pulse O2 O2 Flow FiO2 Mean Ox Delivery Rate 09/23 1142 97.9 70 18 119/69 85.7 93 Room air 09/23 0744 97.9 69 16 128/77 94.3 93 Room air 09/23 0312 99.0 71 16 124/80 95.0 92 / 2311 98.1 68 16 124/76 92.0 93 09/22 1920 98.1 68 16 134/82 99.3 94 09/22 1519 97.5 63 14 133/86 101.5 94 Room air 24 hour I O ending at 0700: 09/23 0700 09/22 1900 Intake Total Output Total Balance Patient 109.091 kg Weight Patient Weight Weight (lb): 240 Weight (oz): 8.07 Weight (kg): 109.091 Medications: Active Meds + DC'd Last 24 Hrs Losartan Potassium 50 MG BID PO Piperacillin Sod/Tazobactam Sod 3.375 GM Q8H IV Sodium Chloride 100 ML Pneumococcal 13-Valent Conj Vacc 0.5 ML ASDIR IM Acetaminophen 650 MG Q4H PRN PRN PO Dextrose/Sodium Chloride 1,000 ML .[id number] IV Dextrose/Water 25 ML ASDIR PRN IV Insulin Human Lispro LOW DOSE SCALE ASDIR SUBQ Morphine Sulfate 2 MG Q4H PRN PRN IV Ondansetron HCl 4 MG Q4H PRN PRN IV Physical Exam General appearance: alert, awake, oriented, no acute distress, conversational, no respiratory distress Head/Eyes: atraumatic, normocephalic, PERRLA Neck: full range of motion, non-tender, no JVD Cardiovascular: normal heart sounds, no gallop, no murmur, no rub Respiratory: aerating well, symmetric expansion, no distress Abdomen: obese, tenderness, no distention Extremities: moves all Neuro/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: alert, oriented X 3, CNII-XII intact, normal speech Skin: dry, intact Psychiatry: not homicidal, not suicidal, no hallucinations Results Findings/Data: Laboratory Tests 09/23 09/23 09/23 09/22 09/22 1141 0804 0547 1919 1545 Chemistry Sodium (137 - 145 mmol/L) 137 Potassium (3.4 - 5.0 mmol/L) 3.6 Chloride (98 - 107 mmol/L) 105 Carbon Dioxide (22 - 30 mmol/L) 25 BUN (9 - 20 mg/dL) 10 Creatinine (0.7 - 1.3 mg/dL) 0.7 Glomerular Filtr Rate (>60) 118 Glucose (74 - 106 mg/dL) 152 H POC Glucose (74 - 106 MG/DL) 270 H 133 H 283 H 208 H Calcium (8.4 - 10.2 mg/dL) 8.2 L Phosphorus (2.5 - 4.5 mg/dL) 3.3 Magnesium (1.6 - 2.3 mg/dL) 0.9 L Total Bilirubin (0.2 - 1.3 mg/dL) 1.8 H Conjugated Bilirubin (0 - 0.3 mg/dL) 0 Unconjugated Bilirubin (0 - 1.1 mg/dL) 1.0 AST (15 - 46 U/L) 56 H ALT (13 - 69 U/L) 66 Total Alk Phosphatase (38 - 126 U/L) 221 H Total Protein (6.3 - 8.2 g/dL) 6.4 Albumin (3.5 - 5.0 g/dL) 3.0 L 09/22 1248 Chemistry POC Glucose (74 - 106 MG/DL) 136 H Laboratory Tests 09/23 0555 Hematology WBC (5.0 - 12.0 x10 3/uL) 10.5 RBC (4.70 - 6.10 x10 6/uL) 3.98 L Hgb (14.0 - 18.0 g/dL) 12.3 L Hct (37.0 - 49.0 %) 36.4 L MCV (80 - 94 fL) 92 MCH (27 - 31 pg) 30.9 MCHC (33 - 37 g/dL) 33.8 RDW (11.5 - 15.5 %) 13.2 Plt Count (130 - 400 x10 3/uL) 293 MPV (9.4 - 16.4 fL) 9.2 L Neut % (Auto) (43 - 65 %) 70.3 H Lymph % (Auto) (20.5 - 45.5 %) 21.2 [place] % (Auto) (5.5 - 11.7 %) 5.4 L Eos % (Auto) (0.9 - 2.9 %) 1.6 Baso % (Auto) (0.2 - 1.0 %) 0.7 Neut # (Auto) (2.2 - 4.8 x10 3/uL) 7.35 H Lymph # (Auto) (1.3 - 2.9 x10 3/uL) 2.22 [place] # (Auto) (0.3 - 0.8 x10 3/uL) 0.56 Eos # (Auto) (0.0 - 0.2 x10 3/uL) 0.17 Baso # (Auto) (0.0 - 0.1 x10 3/uL) 0.07 Immature Gran % (0.0 - 2.0 %) 0.8 Nucleated RBC % (0 - 1.0 %) 0.0 Diagnosis, Assessment Plan Plan discussed with: patient, consultants, nurse, interdisc care team Free Text DxA P Notes Free text DxA P notes: 69yo M admitted for management of cholecystitis. #Cholecystitis: surgical intervention pending(marko 09/24) COVID PCR -continue management per general surgery consult sevice #HTN: controlled -continue ARB #T2DM: stable FSG; A1c 9.5 -resume metformin postop, continue PRN SSI #Obesity: BMI > 30 -ensure low salt DM diet < 2000 kcal #HLD: ASCVD > 7.5% -consider statin initiation prior to DC #Dispo: DC pending clinical recovery -hospital medicine will continue to follow at 2226 Addendum 1: 09/24/192225 by Mariana Siegel #Hypomagnesemia: serum Mg < 1 -replete per report writer orders, f/u repeat serum Mg level at 2226 RPT #:[id number] END OF REPORT [facility] 2019-09-24 10:52:00 [facility] General Surgery Progress Note REPORT#:[id number] REPORT STATUS: Signed DATE:09/24/19 TIME: 1052 PATIENT: SEYMOUR SNOW UNIT #: [id number] ROOM/BED: [address] : 48 AGE: 69 SEX: M ATTEND: Lizzy Duke MD ADM AUTHOR: Rickey Glover MD R1 * ALL edits or amendments must be made on the electronic/computer document * Subjective Comments: Patient reports less RUQ pain today. No acute events overnight. Denies nausea nor vomiting. Received word that patient's COVID test would not result until tomorrow. Explained to patient that he may resume CLD today and be NPO after midnight for anticipated surgery tomorrow. Patient expressed understanding of the above and agrees to proceed. ROS negative unless noted in above description of the following systems: constitutional, eyes, HENT, neck, neuro, CV, resp, GI, , msk, skin Objective General VS/I O: Last Documented: Result Date Time Pulse Ox 93 09/24 743 B/P 128/77 09/24 743 B/P Mean 94.3 09/24 743 O2 Delivery Room air 09/24 743 Temp 36.6 09/24 743 Pulse 69 09/24 743 Resp 16 09/24 743 Vital Signs Date Temp Pulse Resp B/P B/P Mean Pulse Ox FiO2 09/22-09/23 36.4-37.2 63-71 14-16 124-134/76-86 92.0-101.5 92-94 24 hour I O ending at 0700: 09/23 0700 09/22 1900 Intake Total Output Total Balance Patient 109.091 kg Weight Patient Weight Weight (lb): 240 Weight (oz): 8.07 Weight (kg): 109.091 Medications: Active Meds + DC'd Last 24 Hrs Losartan Potassium 50 MG BID PO Piperacillin Sod/Tazobactam Sod 3.375 GM Q8H IV Sodium Chloride 100 ML Pneumococcal 13-Valent Conj Vacc 0.5 ML ASDIR IM Acetaminophen 650 MG Q4H PRN PRN PO Dextrose/Sodium Chloride 1,000 ML .[id number] IV Dextrose/Water 25 ML ASDIR PRN IV Insulin Human Lispro LOW DOSE SCALE ASDIR SUBQ Morphine Sulfate 2 MG Q4H PRN PRN IV Ondansetron HCl 4 MG Q4H PRN PRN IV Nutrtion assessment: The data set between the solid lines has been imported from the dietitian's assessment. Any exceptions have been noted under Provider comments. BMI Calculated: 30.9 Nutrition related diagnosis: Nutrition diagnosis details: Nutrition problem: Nutrition etiology: Nutrition signs and symptoms: Nutrition prescription: Dietitian name: Assessment completed: Provider comments on imported dietitian assessment: Physical Exam General appearance: alert, awake, oriented HEENT: anicteric, atraumatic, moist mucosal membranes Neck: full range of motion, non-tender, no masses or swelling Cardiovascular: normal capillary refill, normal heart sounds, normal S1/S2 Respiratory: aerating well, clear to auscultation, equal breath sounds Abdomen: tenderness (RUQ to palpation; less today), soft, no distention Extremities: moves all, normal capillary refill, normal temperature Neuro/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: alert, oriented x 3, normal speech Skin: dry, intact, normal color Psychiatry: normal affect, normal judgment/insight, normal mood Results Findings/Data: Laboratory Tests 09/24/19 0804: [Embedded Image Not Available] 09/24/19554: [Embedded Image Not Available] Laboratory Tests 09/23 09/23 09/22 09/22 09/22 08 0547 1919 1545 1248 Chemistry Sodium (137 - 145 mmol/L) 137 Potassium (3.4 - 5.0 mmol/L) 3.6 Chloride (98 - 107 mmol/L) 105 Carbon Dioxide (22 - 30 mmol/L) 25 BUN (9 - 20 mg/dL) 10 Creatinine (0.7 - 1.3 mg/dL) 0.7 Glomerular Filtr Rate (>60) 118 Glucose (74 - 106 mg/dL) 152 H POC Glucose (74 - 106 MG/DL) 133 H 283 H 208 H 136 H Calcium (8.4 - 10.2 mg/dL) 8.2 L Phosphorus (2.5 - 4.5 mg/dL) 3.3 Magnesium (1.6 - 2.3 mg/dL) 0.9 L Total Bilirubin (0.2 - 1.3 mg/dL) 1.8 H Conjugated Bilirubin (0 - 0.3 mg/dL) 0 Unconjugated Bilirubin (0 - 1.1 mg/dL) 1.0 AST (15 - 46 U/L) 56 H ALT (13 - 69 U/L) 66 Total Alk Phosphatase (38 - 126 U/L) 221 H Total Protein (6.3 - 8.2 g/dL) 6.4 Albumin (3.5 - 5.0 g/dL) 3.0 L Laboratory Tests 09/23 554 Hematology WBC (5.0 - 12.0 x10 3/uL) 10.5 RBC (4.70 - 6.10 x10 6/uL) 3.98 L Hgb (14.0 - 18.0 g/dL) 12.3 L Hct (37.0 - 49.0 %) 36.4 L MCV (80 - 94 fL) 92 MCH (27 - 31 pg) 30.9 MCHC (33 - 37 g/dL) 33.8 RDW (11.5 - 15.5 %) 13.2 Plt Count (130 - 400 x10 3/uL) 293 MPV (9.4 - 16.4 fL) 9.2 L Neut % (Auto) (43 - 65 %) 70.3 H Lymph % (Auto) (20.5 - 45.5 %) 21.2 [place] % (Auto) (5.5 - 11.7 %) 5.4 L Eos % (Auto) (0.9 - 2.9 %) 1.6 Baso % (Auto) (0.2 - 1.0 %) 0.7 Neut # (Auto) (2.2 - 4.8 x10 3/uL) 7.35 H Lymph # (Auto) (1.3 - 2.9 x10 3/uL) 2.22 [place] # (Auto) (0.3 - 0.8 x10 3/uL) 0.56 Eos # (Auto) (0.0 - 0.2 x10 3/uL) 0.17 Baso # (Auto) (0.0 - 0.1 x10 3/uL) 0.07 Immature Gran % (0.0 - 2.0 %) 0.8 Nucleated RBC % (0 - 1.0 %) 0.0 Radiology data: Recent Impressions: MAGNET[facility] IMAGING - MRI MRCP 09/22 1220 Report Impression - Status: SIGNED Entered: 09/23/2019 1252 IMPRESSION: 1. Thickened, distended gallbladder with sludge and gallstones. 2. Mildly microlobulated liver, suggests underlying cirrhotic liver disease. 3. There is a 2.2 cm cysts within the right posterior liver. Impression By: [email or web address] - RONDA ARITA MD Results: All labs and imaging reviewed by attending physician Diagnosis, Assessment Plan Free Text A P: ASSESSMENT: 69 y/o GANDHI w/ h/o biliary colic. MRCP demonstrates no CBD stones. COVID test is pending. Due to likely timing of results, surgery is scheduled for tomorrow. Injuries/Acute Problems: -cholelithiasis Chronic Medical Problems/Comorbidities: -HTN -DM PLAN: Will need repeat LFT's in A.M. Cont. Abx and IVF CLD, advance as tolerated NPO after midnight tonight Laparsocpic cholecystectomy pending COVID test results L/D/A: PIV DVT prophylaxis: SCDs Lovenox GI prophylaxis: not indicated Diet: advance as [place] to 2200 kCal ADA, low fat diet Activity: as tolerated Dispo: continue on medicine and we will cont. to follow. Code Status: FULL Attestations Attestation needed: teaching physician at 1056 RPT #:[id number] END OF REPORT [facility] 2019-09-24 10:52:00 ([facility] General Surgery Progress Note REPORT#:[id number] REPORT STATUS: Signed DATE:09/24/19 TIME: 105 PATIENT: SEYMOUR SNOW UNIT #: [id number] ROOM/BED: [address] : 48 AGE: 69 SEX: M ATTEND: Lizzy Duke MD ADM AUTHOR: Rickey Glover MD R1 * ALL edits or amendments must be made on the electronic/computer document * Rickey Glover 09/24/19 1052: Subjective Comments: Patient reports less RUQ pain today. No acute events overnight. Denies nausea nor vomiting. Received word that patient's COVID test would not result until tomorrow. Explained to patient that he may resume CLD today and be NPO after midnight for anticipated surgery tomorrow. Patient expressed understanding of the above and agrees to proceed. ROS negative unless noted in above description of the following systems: constitutional, eyes, HENT, neck, neuro, CV, resp, GI, , msk, skin Objective General VS/I O: Last Documented: Result Date Time Pulse Ox 93 09/24 743 B/P 128/77 09/24 743 B/P Mean 94.3 09/24 743 O2 Delivery Room air 09/24 743 Temp 36.6 09/24 743 Pulse 69 09/24 743 Resp 16 09/24 743 Vital Signs Date Temp Pulse Resp B/P B/P Mean Pulse Ox FiO2 09/22-09/23 36.4-37.2 63-71 14-16 124-134/76-86 92.0-101.5 92-94 24 hour I O ending at 0700: 09/23 0700 09/22 1900 Intake Total Output Total Balance Patient 109.091 kg Weight Patient Weight Weight (lb): 240 Weight (oz): 8.07 Weight (kg): 109.091 Medications: Active Meds + DC'd Last 24 Hrs Losartan Potassium 50 MG BID PO Piperacillin Sod/Tazobactam Sod 3.375 GM Q8H IV Sodium Chloride 100 ML Pneumococcal 13-Valent Conj Vacc 0.5 ML ASDIR IM Acetaminophen 650 MG Q4H PRN PRN PO Dextrose/Sodium Chloride 1,000 ML .[id number] IV Dextrose/Water 25 ML ASDIR PRN IV Insulin Human Lispro LOW DOSE SCALE ASDIR SUBQ Morphine Sulfate 2 MG Q4H PRN PRN IV Ondansetron HCl 4 MG Q4H PRN PRN IV Nutrtion assessment: The data set between the solid lines has been imported from the dietitian's assessment. Any exceptions have been noted under Provider comments. BMI Calculated: 30.9 Nutrition related diagnosis: Nutrition diagnosis details: Nutrition problem: Nutrition etiology: Nutrition signs and symptoms: Nutrition prescription: Dietitian name: Assessment completed: Provider comments on imported dietitian assessment: Physical Exam General appearance: alert, awake, oriented HEENT: anicteric, atraumatic, moist mucosal membranes Neck: full range of motion, non-tender, no masses or swelling Cardiovascular: normal capillary refill, normal heart sounds, normal S1/S2 Respiratory: aerating well, clear to auscultation, equal breath sounds Abdomen: tenderness (RUQ to palpation; less today), soft, no distention Extremities: moves all, normal capillary refill, normal temperature Neuro/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: alert, oriented x 3, normal speech Skin: dry, intact, normal color Psychiatry: normal affect, normal judgment/insight, normal mood Results Findings/Data: Laboratory Tests 09/24/19803: [Embedded Image Not Available] 09/24/19554: [Embedded Image Not Available] Laboratory Tests 09/23 0547 1919 1545 1248 Chemistry Sodium (137 - 145 mmol/L) 137 Potassium (3.4 - 5.0 mmol/L) 3.6 Chloride (98 - 107 mmol/L) 105 Carbon Dioxide (22 - 30 mmol/L) 25 BUN (9 - 20 mg/dL) 10 Creatinine (0.7 - 1.3 mg/dL) 0.7 Glomerular Filtr Rate (>60) 118 Glucose (74 - 106 mg/dL) 152 H POC Glucose (74 - 106 MG/DL) 133 H 283 H 208 H 136 H Calcium (8.4 - 10.2 mg/dL) 8.2 L Phosphorus (2.5 - 4.5 mg/dL) 3.3 Magnesium (1.6 - 2.3 mg/dL) 0.9 L Total Bilirubin (0.2 - 1.3 mg/dL) 1.8 H Conjugated Bilirubin (0 - 0.3 mg/dL) 0 Unconjugated Bilirubin (0 - 1.1 mg/dL) 1.0 AST (15 - 46 U/L) 56 H ALT (13 - 69 U/L) 66 Total Alk Phosphatase (38 - 126 U/L) 221 H Total Protein (6.3 - 8.2 g/dL) 6.4 Albumin (3.5 - 5.0 g/dL) 3.0 L Laboratory Tests 09/23 554 Hematology WBC (5.0 - 12.0 x10 3/uL) 10.5 RBC (4.70 - 6.10 x10 6/uL) 3.98 L Hgb (14.0 - 18.0 g/dL) 12.3 L Hct (37.0 - 49.0 %) 36.4 L MCV (80 - 94 fL) 92 MCH (27 - 31 pg) 30.9 MCHC (33 - 37 g/dL) 33.8 RDW (11.5 - 15.5 %) 13.2 Plt Count (130 - 400 x10 3/uL) 293 MPV (9.4 - 16.4 fL) 9.2 L Neut % (Auto) (43 - 65 %) 70.3 H Lymph % (Auto) (20.5 - 45.5 %) 21.2 [place] % (Auto) (5.5 - 11.7 %) 5.4 L Eos % (Auto) (0.9 - 2.9 %) 1.6 Baso % (Auto) (0.2 - 1.0 %) 0.7 Neut # (Auto) (2.2 - 4.8 x10 3/uL) 7.35 H Lymph # (Auto) (1.3 - 2.9 x10 3/uL) 2.22 [place] # (Auto) (0.3 - 0.8 x10 3/uL) 0.56 Eos # (Auto) (0.0 - 0.2 x10 3/uL) 0.17 Baso # (Auto) (0.0 - 0.1 x10 3/uL) 0.07 Immature Gran % (0.0 - 2.0 %) 0.8 Nucleated RBC % (0 - 1.0 %) 0.0 Radiology data: Recent Impressions: MAGNETIC [facility]ON[facility] IMAGING - MRI MRCP 09/22 1220 Report Impression - Status: SIGNED Entered: 09/23/2019 1252 IMPRESSION: 1. Thickened, distended gallbladder with sludge and gallstones. 2. Mildly microlobulated liver, suggests underlying cirrhotic liver disease. 3. There is a 2.2 cm cysts within the right posterior liver. Impression By: [email or web address] - RONDA ARITA MD Results: All labs and imaging reviewed by attending physician Diagnosis, Assessment Plan Free Text A P: ASSESSMENT: 69 y/o GANDHI w/ h/o biliary colic. MRCP demonstrates no CBD stones. COVID test is pending. Due to likely timing of results, surgery is scheduled for tomorrow. Injuries/Acute Problems: -cholelithiasis Chronic Medical Problems/Comorbidities: -HTN -DM PLAN: Will need repeat LFT's in A.M. Cont. Abx and IVF CLD, advance as tolerated NPO after midnight tonight Laparsocpic cholecystectomy pending COVID test results L/D/A: PIV DVT prophylaxis: SCDs Lovenox GI prophylaxis: not indicated Diet: advance as [place] to 2200 kCal ADA, low fat diet Activity: as tolerated Dispo: continue on medicine and we will cont. to follow. Code Status: FULL Attestations Attestation needed: teaching physician Pina Glez 09/24/19 1119: Attestations Physician Attestation Agree w/findings plan: I was present with the resident during the history and examination. I discussed the case with the resident and agree with the findings and plan as documented in the resident's note. Patient is 69 y/o GANDHI w/ h/o biliary colic. Ultrasound with large stones around 2cm. MRCP demonstrates no CBD stones. COVID test is pending On my exam RUQ abdominal pain with deep palpation, no nausea/vomting, abdomen soft/non-distended Plan: - To OR after COVID testing results for lap vs open cholecystectomy - Continue clears, NPO after midnight - Follow up bilirubin - Case scheduled for 9am (COVID results to come at 3am) Labs reviewed. Pertinent imaging personally reviewed. Discussed plan with other members of the healthcare team. at 1056 at 1126 RPT #:[id number] END OF REPORT [facility] 2019-09-23 13:59:00 [facility] General Surgery Progress Note REPORT#:[id number] REPORT STATUS: Signed DATE:09/23/19 TIME: 1359 PATIENT: MYA SNOWNCIO UNIT #: [id number] ROOM/BED: [address] : 48 AGE: 69 SEX: M ATTEND: Lizzy Duke MD ADM AUTHOR: Rickey Glover MD R1 * ALL edits or amendments must be made on the electronic/computer document * Subjective Comments: Patient reports RUQ pain has reamined about the same overnight. No acute events overnight. Underwent MRCP today which did not demonstrated any CBD filling defects nor stones. Received word that patient's COVID test would not result until tomorrow. Review of Systems Constitutional: Denies: fatigue, generalized weakness, recent wt loss. Skin: Denies: laceration, rash, swelling. Allergy/Immun: Denies: itching, rhinorrhea, sneezing. Eyes: Denies: eye pain, photophobia, swelling. ENT: Denies: tongue pain, tongue swelling, toothache. Respiratory: Denies: productive cough (sputum), SOB, wheezing. Cardiovascular: Denies: chest pain, edema, orthopnea. GI: Reports: abdominal pain (RUQ). Denies: constipation, diarrhea. Neuro: Denies: change in LOC, unable to speak, vision change. Psych: Denies: agitation, anxiety, stress. All systems rev neg: except as marked Objective General VS/I O: Last Documented: Result Date Time Pulse Ox 94 09/22 1121 B/P 131/80 09/22 1121 B/P Mean 97.2 09/22 1121 O2 Delivery Room air 09/22 112 Temp 36.6 09/22 1121 Pulse 64 09/22 1121 Resp 14 09/22 1121 Vital Signs Date Temp Pulse Resp B/P B/P Mean Pulse Ox FiO2 09/21-09/22 36.6-36.8 64-77 14-18 122-149/72-85 88.5-101.4 93-96 24 hour I O ending at 0700: 09/22 0700 / 1900 Intake Total 600.00 Output Total Balance 600.00 Intake, IV 400.00 Intake, Oral 200 Number Voids 3 Patient 109.091 kg 109.091 kg Weight Weight Stated/Reported Stated/Reported Measurement Method Patient Weight Weight (lb): 240 Weight (oz): 8.07 Weight (kg): 109.091 Medications: Active Meds + DC'd Last 24 Hrs Losartan Potassium 50 MG BID PO Piperacillin Sod/Tazobactam Sod 3.375 GM Q8H IV Sodium Chloride 100 ML Pneumococcal 13-Valent Conj Vacc 0.5 ML ASDIR IM Acetaminophen 650 MG Q4H PRN PRN PO Dextrose/Sodium Chloride 1,000 ML .[id number] IV Dextrose/Water 25 ML ASDIR PRN IV Insulin Human Lispro LOW DOSE SCALE ASDIR SUBQ Morphine Sulfate 2 MG Q4H PRN PRN IV Ondansetron HCl 4 MG Q4H PRN PRN IV Sodium Chloride 5 ML Q12HR IV (DC) Sodium Chloride 5 ML ASDIR PRN IV (DC) Sodium Chloride 10 ML ASDIR PRN IV (DC) Sodium Chloride 250 ML ASDIR PRN IV (DC) Ondansetron HCl 4 MG Q4H PRN PRN IV (DC) Ondansetron HCl 4 MG X1ED STA IV (DC) Fentanyl Citrate 25 MCG X1ED STA IV (CAN) Piperacillin Sod/Tazobactam Sod 3.375 GM X1ED STA IV (DC) Sodium Chloride 100 ML Lactated Ringer's 1,000 ML X1ED STA IV (DC) Morphine Sulfate 4 MG X1ED STA IV (DC) Nutrtion assessment: The data set between the solid lines has been imported from the dietitian's assessment. Any exceptions have been noted under Provider comments. BMI Calculated: 30.9 Nutrition related diagnosis: Nutrition diagnosis details: Nutrition problem: Nutrition etiology: Nutrition signs and symptoms: Nutrition prescription: Dietitian name: Assessment completed: Provider comments on imported dietitian assessment: Physical Exam General appearance: alert, awake, oriented HEENT: anicteric, atraumatic, moist mucosal membranes Neck: full range of motion, non-tender, no masses or swelling Cardiovascular: normal capillary refill, normal heart sounds, normal S1/S2 Respiratory: aerating well, clear to auscultation, equal breath sounds Abdomen: tenderness (RUQ to palpation), soft, no distention Extremities: moves all, normal capillary refill, normal temperature Neuro/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: alert, oriented x 3, normal speech Skin: dry, intact, normal color Psychiatry: normal affect, normal judgment/insight, normal mood Results Findings/Data: Laboratory Tests 09/23/19 0337: [Embedded Image Not Available] 09/22/19 1511: [Embedded Image Not Available] Laboratory Tests 09/22 09/22 09/22 09/21 09/21 1248 0618 [id number] 1946 1731 Chemistry POC Glucose (74 - 106 MG/DL) 136 H 146 H 152 H Lactic Acid (0.7 - 2.0 mmol/L) 1.8 Total Bilirubin (0.2 - 1.3 mg/dL) 2.0 H Conjugated Bilirubin (0 - 0.3 mg/dL) 0 Unconjugated Bilirubin (0 - 1.1 mg/dL) 1.1 AST (15 - 46 U/L) 53 H ALT (13 - 69 U/L) 69 Total Alk Phosphatase (38 - 126 U/L) 223 H Total Protein (6.3 - 8.2 g/dL) 6.3 Albumin (3.5 - 5.0 g/dL) 3.0 L Lipase (23 - 300 U/L) 225 09/21 09/21 09/21 09/21 1731 1525 1511 1511 Chemistry Sodium (137 - 145 mmol/L) 132 L Potassium (3.4 - 5.0 mmol/L) 3.9 Chloride (98 - 107 mmol/L) 101 Carbon Dioxide (22 - 30 mmol/L) 20 L BUN (9 - 20 mg/dL) 21 H Creatinine (0.7 - 1.3 mg/dL) 0.9 Glomerular Filtr Rate (>60) 88 Glucose (74 - 106 mg/dL) 237 H Lactic Acid (0.7 - 2.0 mmol/L) 2.6 *H Calcium (8.4 - 10.2 mg/dL) 8.2 L Total Bilirubin (0.2 - 1.3 mg/dL) 2.2 H Conjugated Bilirubin (0 - 0.3 mg/dL) 0 Unconjugated Bilirubin (0 - 1.1 mg/dL) 0.9 AST (15 - 46 U/L) 65 H ALT (13 - 69 U/L) 68 Total Alk Phosphatase (38 - 126 U/L) 272 H Rapid Troponin I (0.00 - 0.079 ng/mL) 0.00 Total Protein (6.3 - 8.2 g/dL) 7.0 Albumin (3.5 - 5.0 g/dL) 3.3 L Triglycerides (mg/dL) 189 Cholesterol (mg/dL) 188 LDL Cholesterol Measurd (32 - 99 mg/dL) 101.68 H HDL Cholesterol (40 - 59 mg/dL) 23 L Coronary Risk Interp 8.17 Lipase (23 - 300 U/L) 501 H Laboratory Tests 09/21 1511 Coagulation INR 1.4 PT Patient/Control Mix (9.2 - 12.1 SECONDS) 15.4 H Laboratory Tests 09/22 05/ 0337 1511 Hematology WBC (5.0 - 12.0 x10 3/uL) 10.7 9.4 RBC (4.70 - 6.10 x10 6/uL) 3.98 L 4.13 L Hgb (14.0 - 18.0 g/dL) 12.5 L 13.0 L Hct (37.0 - 49.0 %) 35.8 L 36.8 L MCV (80 - 94 fL) 90 89 MCH (27 - 31 pg) 31.4 H 31.5 H MCHC (33 - 37 g/dL) 34.9 35.3 RDW (11.5 - 15.5 %) 13.2 13.1 Plt Count (130 - 400 x10 3/uL) 263 261 MPV (9.4 - 16.4 fL) 9.5 9.4 Neut % (Auto) (43 - 65 %) 71.6 H 77.0 H Lymph % (Auto) (20.5 - 45.5 %) 20.4 L 16.8 L [place] % (Auto) (5.5 - 11.7 %) 4.8 L 3.8 L Eos % (Auto) (0.9 - 2.9 %) 1.7 1.0 Baso % (Auto) (0.2 - 1.0 %) 0.5 0.6 Neut # (Auto) (2.2 - 4.8 x10 3/uL) 7.68 H 7.26 H Lymph # (Auto) (1.3 - 2.9 x10 3/uL) 2.18 1.58 [place] # (Auto) (0.3 - 0.8 x10 3/uL) 0.51 0.36 Eos # (Auto) (0.0 - 0.2 x10 3/uL) 0.18 0.09 Baso # (Auto) (0.0 - 0.1 x10 3/uL) 0.05 0.06 Immature Gran % (0.0 - 2.0 %) 1.0 0.8 Nucleated RBC % (0 - 1.0 %) 0.0 0.0 Laboratory Tests 09/21 1511 Urines Urine Color (Yellow) Yellow Urine Appearance (Clear) Clear Urine pH (5.0 - 8.0) 6.0 Ur Specific [place] (<1.030) 1.014 Urine Protein (Negative mg/dL) NEGATIVE Urine Glucose (UA) (Negative) 150 (2+) H Urine Ketones (Negative mg/dL) Negative Urine Blood (Negative) Negative Urine Nitrite (Negative) Negative Urine Bilirubin (Negative) Negative Urine Urobilinogen (Negative mg/dL) Negative Ur Leukocyte Esterase (Negative) NEGATIVE Urine RBC (<4 - 5 /HPF) 0-3 Urine WBC (<4 - 5 /HPF) 0-3 Urine Bacteria (None - Rare /HPF) NONE SEEN Radiology data: Recent Impressions: ULTRASOUND - US ABDOMEN LTD 09/21 1546 Report Impression - Status: SIGNED Entered: 09/22/2019 1558 IMPRESSION: Distended gallbladder filled with sludge and stones measuring up to 2 similar. Gallbladder wall thickening. Findings concerning for cholecystitis. Cirrhotic heterogeneous liver. Impression By: [email or web address] Ari Hodgson MD [facility] - MRI MRCP 09/22 1220 Report Impression - Status: SIGNED Entered: 09/23/2019 1252 IMPRESSION: 1. Thickened, distended gallbladder with sludge and gallstones. 2. Mildly microlobulated liver, suggests underlying cirrhotic liver disease. 3. There is a 2.2 cm cysts within the right posterior liver. Impression By: [email or web address] - RONDA ARITA MD Results: All labs and results reviewed by attending physician Diagnosis, Assessment Plan Free Text A P: ASSESSMENT: 69 y/o GANDHI w/ h/o biliary colic. MRCP demonstrates no CBD stones. COVID test is pending Injuries/Acute Problems: -cholelithiasis Chronic Medical Problems/Comorbidities: -HTN -DM PLAN: Will need repeat LFT's in A.M. Cont. Abx and IVF CLD, advance as tolerated NPO after midnight tonight Laparsocpic cholecystectomy pending COVID test resulting tomorrow L/D/A: PIV DVT prophylaxis: SCDs Lovenox GI prophylaxis: not indicated Diet: advance as [place] to 2200 kCal ADA, low fat diet Activity: as tolerated Dispo: continue on medicine and we will cont. to follow. Code Status: FULL Attestations Attestation needed: teaching physician at 1407 RPT #:[id number] END OF REPORT [facility] 2019-09-23 13:59:00 [facility] General Surgery Progress Note REPORT#:[id number] REPORT STATUS: Signed DATE:09/23/19 TIME: 1359 PATIENT: SEYMOUR SNOW UNIT #: [id number] ROOM/BED: [address] : 48 AGE: 69 SEX: M ATTEND: Lizzy Duke MD ADM AUTHOR: Rickey Glover MD R1 * ALL edits or amendments must be made on the electronic/computer document * Rickey Gloevr 09/23/19 1359: Subjective Comments: Patient reports RUQ pain has reamined about the same overnight. No acute events overnight. Underwent MRCP today which did not demonstrated any CBD filling defects nor stones. Received word that patient's COVID test would not result until tomorrow. Review of Systems Constitutional: Denies: fatigue, generalized weakness, recent wt loss. Skin: Denies: laceration, rash, swelling. Allergy/Immun: Denies: itching, rhinorrhea, sneezing. Eyes: Denies: eye pain, photophobia, swelling. ENT: Denies: tongue pain, tongue swelling, toothache. Respiratory: Denies: productive cough (sputum), SOB, wheezing. Cardiovascular: Denies: chest pain, edema, orthopnea. GI: Reports: abdominal pain (RUQ). Denies: constipation, diarrhea. Neuro: Denies: change in LOC, unable to speak, vision change. Psych: Denies: agitation, anxiety, stress. All systems rev neg: except as marked Objective General VS/I O: Last Documented: Result Date Time Pulse Ox 94 09/22 1121 B/P 131/80 09/22 1121 B/P Mean 97.2 09/22 1121 O2 Delivery Room air 09/22 1121 Temp 36.6 09/22 1121 Pulse 64 09/22 1121 Resp 14 09/22 1121 Vital Signs Date Temp Pulse Resp B/P B/P Mean Pulse Ox FiO2 09/21-09/22 36.6-36.8 64-77 14-18 122-149/72-85 88.5-101.4 93-96 24 hour I O ending at 0700: 09/22 0700 09/21 1900 Intake Total 600.00 Output Total Balance 600.00 Intake, IV 400.00 Intake, Oral 200 Number Voids 3 Patient 109.091 kg 109.091 kg Weight Weight Stated/Reported Stated/Reported Measurement Method Patient Weight Weight (lb): 240 Weight (oz): 8.07 Weight (kg): 109.091 Medications: Active Meds + DC'd Last 24 Hrs Losartan Potassium 50 MG BID PO Piperacillin Sod/Tazobactam Sod 3.375 GM Q8H IV Sodium Chloride 100 ML Pneumococcal 13-Valent Conj Vacc 0.5 ML ASDIR IM Acetaminophen 650 MG Q4H PRN PRN PO Dextrose/Sodium Chloride 1,000 ML .[id number] IV Dextrose/Water 25 ML ASDIR PRN IV Insulin Human Lispro LOW DOSE SCALE ASDIR SUBQ Morphine Sulfate 2 MG Q4H PRN PRN IV Ondansetron HCl 4 MG Q4H PRN PRN IV Sodium Chloride 5 ML Q12HR IV (DC) Sodium Chloride 5 ML ASDIR PRN IV (DC) Sodium Chloride 10 ML ASDIR PRN IV (DC) Sodium Chloride 250 ML ASDIR PRN IV (DC) Ondansetron HCl 4 MG Q4H PRN PRN IV (DC) Ondansetron HCl 4 MG X1ED STA IV (DC) Fentanyl Citrate 25 MCG X1ED STA IV (CAN) Piperacillin Sod/Tazobactam Sod 3.375 GM X1ED STA IV (DC) Sodium Chloride 100 ML Lactated Ringer's 1,000 ML X1ED STA IV (DC) Morphine Sulfate 4 MG X1ED STA IV (DC) Nutrtion assessment: The data set between the solid lines has been imported from the dietitian's assessment. Any exceptions have been noted under Provider comments. BMI Calculated: 30.9 Nutrition related diagnosis: Nutrition diagnosis details: Nutrition problem: Nutrition etiology: Nutrition signs and symptoms: Nutrition prescription: Dietitian name: Assessment completed: Provider comments on imported dietitian assessment: Physical Exam General appearance: alert, awake, oriented HEENT: anicteric, atraumatic, moist mucosal membranes Neck: full range of motion, non-tender, no masses or swelling Cardiovascular: normal capillary refill, normal heart sounds, normal S1/S2 Respiratory: aerating well, clear to auscultation, equal breath sounds Abdomen: tenderness (RUQ to palpation), soft, no distention Extremities: moves all, normal capillary refill, normal temperature Neuro/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: alert, oriented x 3, normal speech Skin: dry, intact, normal color Psychiatry: normal affect, normal judgment/insight, normal mood Results Findings/Data: Laboratory Tests 09/23/19 0337: [Embedded Image Not Available] 09/22/19 1511: [Embedded Image Not Available] Laboratory Tests 09/22 09/22 09/22 09/21 09/21 1248 0607 0337 1946 1731 Chemistry POC Glucose (74 - 106 MG/DL) 136 H 146 H 152 H Lactic Acid (0.7 - 2.0 mmol/L) 1.8 Total Bilirubin (0.2 - 1.3 mg/dL) 2.0 H Conjugated Bilirubin (0 - 0.3 mg/dL) 0 Unconjugated Bilirubin (0 - 1.1 mg/dL) 1.1 AST (15 - 46 U/L) 53 H ALT (13 - 69 U/L) 69 Total Alk Phosphatase (38 - 126 U/L) 223 H Total Protein (6.3 - 8.2 g/dL) 6.3 Albumin (3.5 - 5.0 g/dL) 3.0 L Lipase (23 - 300 U/L) 225 09/21 09/21 09/21 09/21 1731 1525 1511 1511 Chemistry Sodium (137 - 145 mmol/L) 132 L Potassium (3.4 - 5.0 mmol/L) 3.9 Chloride (98 - 107 mmol/L) 101 Carbon Dioxide (22 - 30 mmol/L) 20 L BUN (9 - 20 mg/dL) 21 H Creatinine (0.7 - 1.3 mg/dL) 0.9 Glomerular Filtr Rate (>60) 88 Glucose (74 - 106 mg/dL) 237 H Lactic Acid (0.7 - 2.0 mmol/L) 2.6 *H Calcium (8.4 - 10.2 mg/dL) 8.2 L Total Bilirubin (0.2 - 1.3 mg/dL) 2.2 H Conjugated Bilirubin (0 - 0.3 mg/dL) 0 Unconjugated Bilirubin (0 - 1.1 mg/dL) 0.9 AST (15 - 46 U/L) 65 H ALT (13 - 69 U/L) 68 Total Alk Phosphatase (38 - 126 U/L) 272 H Rapid Troponin I (0.00 - 0.079 ng/mL) 0.00 Total Protein (6.3 - 8.2 g/dL) 7.0 Albumin (3.5 - 5.0 g/dL) 3.3 L Triglycerides (mg/dL) 189 Cholesterol (mg/dL) 188 LDL Cholesterol Measurd (32 - 99 mg/dL) 101.68 H HDL Cholesterol (40 - 59 mg/dL) 23 L Coronary Risk Interp 8.17 Lipase (23 - 300 U/L) 501 H Laboratory Tests 09/21 1511 Coagulation INR 1.4 PT Patient/Control Mix (9.2 - 12.1 SECONDS) 15.4 H Laboratory Tests 09/22 09/21 0337 1511 Hematology WBC (5.0 - 12.0 x10 3/uL) 10.7 9.4 RBC (4.70 - 6.10 x10 6/uL) 3.98 L 4.13 L Hgb (14.0 - 18.0 g/dL) 12.5 L 13.0 L Hct (37.0 - 49.0 %) 35.8 L 36.8 L MCV (80 - 94 fL) 90 89 MCH (27 - 31 pg) 31.4 H 31.5 H MCHC (33 - 37 g/dL) 34.9 35.3 RDW (11.5 - 15.5 %) 13.2 13.1 Plt Count (130 - 400 x10 3/uL) 263 261 MPV (9.4 - 16.4 fL) 9.5 9.4 Neut % (Auto) (43 - 65 %) 71.6 H 77.0 H Lymph % (Auto) (20.5 - 45.5 %) 20.4 L 16.8 L [place] % (Auto) (5.5 - 11.7 %) 4.8 L 3.8 L Eos % (Auto) (0.9 - 2.9 %) 1.7 1.0 Baso % (Auto) (0.2 - 1.0 %) 0.5 0.6 Neut # (Auto) (2.2 - 4.8 x10 3/uL) 7.68 H 7.26 H Lymph # (Auto) (1.3 - 2.9 x10 3/uL) 2.18 1.58 [place] # (Auto) (0.3 - 0.8 x10 3/uL) 0.51 0.36 Eos # (Auto) (0.0 - 0.2 x10 3/uL) 0.18 0.09 Baso # (Auto) (0.0 - 0.1 x10 3/uL) 0.05 0.06 Immature Gran % (0.0 - 2.0 %) 1.0 0.8 Nucleated RBC % (0 - 1.0 %) 0.0 0.0 Laboratory Tests 09/21 1511 Urines Urine Color (Yellow) Yellow Urine Appearance (Clear) Clear Urine pH (5.0 - 8.0) 6.0 Ur Specific [place] (<1.030) 1.014 Urine Protein (Negative mg/dL) NEGATIVE Urine Glucose (UA) (Negative) 150 (2+) H Urine Ketones (Negative mg/dL) Negative Urine Blood (Negative) Negative Urine Nitrite (Negative) Negative Urine Bilirubin (Negative) Negative Urine Urobilinogen (Negative mg/dL) Negative Ur Leukocyte Esterase (Negative) NEGATIVE Urine RBC (<4 - 5 /HPF) 0-3 Urine WBC (<4 - 5 /HPF) 0-3 Urine Bacteria (None - Rare /HPF) NONE SEEN Radiology data: Recent Impressions: ULTRASOUND - US ABDOMEN LTD 09/21 1546 Report Impression - Status: SIGNED Entered: 09/22/2019 1558 IMPRESSION: Distended gallbladder filled with sludge and stones measuring up to 2 similar. Gallbladder wall thickening. Findings concerning for cholecystitis. Cirrhotic heterogeneous liver. Impression By: [email or web address] Ari Hodgson MD [facility] - MRI MRCP 09/22 1220 Report Impression - Status: SIGNED Entered: 09/23/2019 1252 IMPRESSION: 1. Thickened, distended gallbladder with sludge and gallstones. 2. Mildly microlobulated liver, suggests underlying cirrhotic liver disease. 3. There is a 2.2 cm cysts within the right posterior liver. Impression By: [email or web address] - RONDA ARITA MD Results: All labs and results reviewed by attending physician Diagnosis, Assessment Plan Free Text A P: ASSESSMENT: 69 y/o GANDHI w/ h/o biliary colic. MRCP demonstrates no CBD stones. COVID test is pending Injuries/Acute Problems: -cholelithiasis Chronic Medical Problems/Comorbidities: -HTN -DM PLAN: Will need repeat LFT's in A.M. Cont. Abx and IVF CLD, advance as tolerated NPO after midnight tonight Laparsocpic cholecystectomy pending COVID test resulting tomorrow L/D/A: PIV DVT prophylaxis: SCDs Lovenox GI prophylaxis: not indicated Diet: advance as [place] to 2200 kCal ADA, low fat diet Activity: as tolerated Dispo: continue on medicine and we will cont. to follow. Code Status: FULL Attestations Attestation needed: teaching physician Pina Glez 09/23/19 1395: Attestations Physician Attestation Agree w/findings plan: I was present with the resident during the history and examination. I discussed the case with the resident and agree with the findings and plan as documented in the resident's note. Patient is 69 y/o GANDHI w/ h/o biliary colic. Ultrasound with large stones around 2cm. MRCP demonstrates no CBD stones. COVID test is pending On my exam RUQ abdominal pain, no nausea/vomting, abdomen soft/non-distended Plan: - To OR after COVID testing results for lap vs open cholecystectomy - Start clears, NPO after midnight Labs reviewed. Pertinent imaging personally reviewed. Discussed plan with other members of the healthcare team. at 1407 RPT #:[id number] END OF REPORT [facility] 2019-09-23 13:59:00 ([facility]) General Surgery Progress Note REPORT#:[id number] REPORT STATUS: Signed DATE:09/23/19 TIME: 1359 PATIENT: SEYMOUR SNOW UNIT #: [id number] ROOM/BED: [address] : 48 AGE: 69 SEX: M ATTEND: Lizzy Duke MD ADM AUTHOR: Rickey Glover MD R1 * ALL edits or amendments must be made on the electronic/computer document * Rickey Glover 09/23/19 1359: Subjective Comments: Patient reports RUQ pain has reamined about the same overnight. No acute events overnight. Underwent MRCP today which did not demonstrated any CBD filling defects nor stones. Received word that patient's COVID test would not result until tomorrow. Review of Systems Constitutional: Denies: fatigue, generalized weakness, recent wt loss. Skin: Denies: laceration, rash, swelling. Allergy/Immun: Denies: itching, rhinorrhea, sneezing. Eyes: Denies: eye pain, photophobia, swelling. ENT: Denies: tongue pain, tongue swelling, toothache. Respiratory: Denies: productive cough (sputum), SOB, wheezing. Cardiovascular: Denies: chest pain, edema, orthopnea. GI: Reports: abdominal pain (RUQ). Denies: constipation, diarrhea. Neuro: Denies: change in LOC, unable to speak, vision change. Psych: Denies: agitation, anxiety, stress. All systems rev neg: except as marked Objective General VS/I O: Last Documented: Result Date Time Pulse Ox 94 09/22 1121 B/P 131/80 09/22 1121 B/P Mean 97.2 09/221 O2 Delivery Room air 09/22 1120 Temp 36.6 09/22 112 Pulse 64 09/22 1121 Resp 14 09/22 1120 Vital Signs Date Temp Pulse Resp B/P B/P Mean Pulse Ox FiO2 09/21-09/22 36.6-36.8 64-77 14-18 122-149/72-85 88.5-101.4 93-96 24 hour I O ending at 0700: 09/22 0700 09/21 1900 Intake Total 600.00 Output Total Balance 600.00 Intake, IV 400.00 Intake, Oral 200 Number Voids 3 Patient 109.091 kg 109.091 kg Weight Weight Stated/Reported Stated/Reported Measurement Method Patient Weight Weight (lb): 240 Weight (oz): 8.07 Weight (kg): 109.091 Medications: Active Meds + DC'd Last 24 Hrs Losartan Potassium 50 MG BID PO Piperacillin Sod/Tazobactam Sod 3.375 GM Q8H IV Sodium Chloride 100 ML Pneumococcal 13-Valent Conj Vacc 0.5 ML ASDIR IM Acetaminophen 650 MG Q4H PRN PRN PO Dextrose/Sodium Chloride 1,000 ML .[id number] IV Dextrose/Water 25 ML ASDIR PRN IV Insulin Human Lispro LOW DOSE SCALE ASDIR SUBQ Morphine Sulfate 2 MG Q4H PRN PRN IV Ondansetron HCl 4 MG Q4H PRN PRN IV Sodium Chloride 5 ML Q12HR IV (DC) Sodium Chloride 5 ML ASDIR PRN IV (DC) Sodium Chloride 10 ML ASDIR PRN IV (DC) Sodium Chloride 250 ML ASDIR PRN IV (DC) Ondansetron HCl 4 MG Q4H PRN PRN IV (DC) Ondansetron HCl 4 MG X1ED STA IV (DC) Fentanyl Citrate 25 MCG X1ED STA IV (CAN) Piperacillin Sod/Tazobactam Sod 3.375 GM X1ED STA IV (DC) Sodium Chloride 100 ML Lactated Ringer's 1,000 ML X1ED STA IV (DC) Morphine Sulfate 4 MG X1ED STA IV (DC) Nutrtion assessment: The data set between the solid lines has been imported from the dietitian's assessment. Any exceptions have been noted under Provider comments. BMI Calculated: 30.9 Nutrition related diagnosis: Nutrition diagnosis details: Nutrition problem: Nutrition etiology: Nutrition signs and symptoms: Nutrition prescription: Dietitian name: Assessment completed: Provider comments on imported dietitian assessment: Physical Exam General appearance: alert, awake, oriented HEENT: anicteric, atraumatic, moist mucosal membranes Neck: full range of motion, non-tender, no masses or swelling Cardiovascular: normal capillary refill, normal heart sounds, normal S1/S2 Respiratory: aerating well, clear to auscultation, equal breath sounds Abdomen: tenderness (RUQ to palpation), soft, no distention Extremities: moves all, normal capillary refill, normal temperature Neuro/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: alert, oriented x 3, normal speech Skin: dry, intact, normal color Psychiatry: normal affect, normal judgment/insight, normal mood Results Findings/Data: Laboratory Tests 09/23/19 0337: [Embedded Image Not Available] 09/22/19 1511: [Embedded Image Not Available] Laboratory Tests 09/22 09/22 09/22 09/21 09/21 1248 0607 0337 1946 1731 Chemistry POC Glucose (74 - 106 MG/DL) 136 H 146 H 152 H Lactic Acid (0.7 - 2.0 mmol/L) 1.8 Total Bilirubin (0.2 - 1.3 mg/dL) 2.0 H Conjugated Bilirubin (0 - 0.3 mg/dL) 0 Unconjugated Bilirubin (0 - 1.1 mg/dL) 1.1 AST (15 - 46 U/L) 53 H ALT (13 - 69 U/L) 69 Total Alk Phosphatase (38 - 126 U/L) 223 H Total Protein (6.3 - 8.2 g/dL) 6.3 Albumin (3.5 - 5.0 g/dL) 3.0 L Lipase (23 - 300 U/L) 225 09/21 09/21 09/21 09/21 1731 1525 1511 1511 Chemistry Sodium (137 - 145 mmol/L) 132 L Potassium (3.4 - 5.0 mmol/L) 3.9 Chloride (98 - 107 mmol/L) 101 Carbon Dioxide (22 - 30 mmol/L) 20 L BUN (9 - 20 mg/dL) 21 H Creatinine (0.7 - 1.3 mg/dL) 0.9 Glomerular Filtr Rate (>60) 88 Glucose (74 - 106 mg/dL) 237 H Lactic Acid (0.7 - 2.0 mmol/L) 2.6 *H Calcium (8.4 - 10.2 mg/dL) 8.2 L Total Bilirubin (0.2 - 1.3 mg/dL) 2.2 H Conjugated Bilirubin (0 - 0.3 mg/dL) 0 Unconjugated Bilirubin (0 - 1.1 mg/dL) 0.9 AST (15 - 46 U/L) 65 H ALT (13 - 69 U/L) 68 Total Alk Phosphatase (38 - 126 U/L) 272 H Rapid Troponin I (0.00 - 0.079 ng/mL) 0.00 Total Protein (6.3 - 8.2 g/dL) 7.0 Albumin (3.5 - 5.0 g/dL) 3.3 L Triglycerides (mg/dL) 189 Cholesterol (mg/dL) 188 LDL Cholesterol Measurd (32 - 99 mg/dL) 101.68 H HDL Cholesterol (40 - 59 mg/dL) 23 L Coronary Risk Interp 8.17 Lipase (23 - 300 U/L) 501 H Laboratory Tests 09/21 1511 Coagulation INR 1.4 PT Patient/Control Mix (9.2 - 12.1 SECONDS) 15.4 H Laboratory Tests 09/22 09/21 0337 1511 Hematology WBC (5.0 - 12.0 x10 3/uL) 10.7 9.4 RBC (4.70 - 6.10 x10 6/uL) 3.98 L 4.13 L Hgb (14.0 - 18.0 g/dL) 12.5 L 13.0 L Hct (37.0 - 49.0 %) 35.8 L 36.8 L MCV (80 - 94 fL) 90 89 MCH (27 - 31 pg) 31.4 H 31.5 H MCHC (33 - 37 g/dL) 34.9 35.3 RDW (11.5 - 15.5 %) 13.2 13.1 Plt Count (130 - 400 x10 3/uL) 263 261 MPV (9.4 - 16.4 fL) 9.5 9.4 Neut % (Auto) (43 - 65 %) 71.6 H 77.0 H Lymph % (Auto) (20.5 - 45.5 %) 20.4 L 16.8 L [place] % (Auto) (5.5 - 11.7 %) 4.8 L 3.8 L Eos % (Auto) (0.9 - 2.9 %) 1.7 1.0 Baso % (Auto) (0.2 - 1.0 %) 0.5 0.6 Neut # (Auto) (2.2 - 4.8 x10 3/uL) 7.68 H 7.26 H Lymph # (Auto) (1.3 - 2.9 x10 3/uL) 2.18 1.58 [place] # (Auto) (0.3 - 0.8 x10 3/uL) 0.51 0.36 Eos # (Auto) (0.0 - 0.2 x10 3/uL) 0.18 0.09 Baso # (Auto) (0.0 - 0.1 x10 3/uL) 0.05 0.06 Immature Gran % (0.0 - 2.0 %) 1.0 0.8 Nucleated RBC % (0 - 1.0 %) 0.0 0.0 Laboratory Tests 09/21 1511 Urines Urine Color (Yellow) Yellow Urine Appearance (Clear) Clear Urine pH (5.0 - 8.0) 6.0 Ur Specific [place] (<1.030) 1.014 Urine Protein (Negative mg/dL) NEGATIVE Urine Glucose (UA) (Negative) 150 (2+) H Urine Ketones (Negative mg/dL) Negative Urine Blood (Negative) Negative Urine Nitrite (Negative) Negative Urine Bilirubin (Negative) Negative Urine Urobilinogen (Negative mg/dL) Negative Ur Leukocyte Esterase (Negative) NEGATIVE Urine RBC (<4 - 5 /HPF) 0-3 Urine WBC (<4 - 5 /HPF) 0-3 Urine Bacteria (None - Rare /HPF) NONE SEEN Radiology data: Recent Impressions: ULTRASOUND - US ABDOMEN LTD 09/21 1546 Report Impression - Status: SIGNED Entered: 09/22/2019 9001 IMPRESSION: Distended gallbladder filled with sludge and stones measuring up to 2 similar. Gallbladder wall thickening. Findings concerning for cholecystitis. Cirrhotic heterogeneous liver. Impression By: [email or web address] - Ari Mcdonnell MD [facility] - MRI MRCP 09/22 1220 Report Impression - Status: SIGNED Entered: 09/23/2019 1252 IMPRESSION: 1. Thickened, distended gallbladder with sludge and gallstones. 2. Mildly microlobulated liver, suggests underlying cirrhotic liver disease. 3. There is a 2.2 cm cysts within the right posterior liver. Impression By: [email or web address] - RONDA ARITA MD Results: All labs and results reviewed by attending physician Diagnosis, Assessment Plan Free Text A P: ASSESSMENT: 69 y/o GANDHI w/ h/o biliary colic. MRCP demonstrates no CBD stones. COVID test is pending Injuries/Acute Problems: -cholelithiasis Chronic Medical Problems/Comorbidities: -HTN -DM PLAN: Will need repeat LFT's in A.M. Cont. Abx and IVF CLD, advance as tolerated NPO after midnight tonight Laparsocpic cholecystectomy pending COVID test resulting tomorrow L/D/A: PIV DVT prophylaxis: SCDs Lovenox GI prophylaxis: not indicated Diet: advance as [place] to 2200 kCal ADA, low fat diet Activity: as tolerated Dispo: continue on medicine and we will cont. to follow. Code Status: FULL Attestations Attestation needed: teaching physician Pina Glez 09/23/19 1735: Attestations Physician Attestation Agree w/findings plan: I was present with the resident during the history and examination. I discussed the case with the resident and agree with the findings and plan as documented in the resident's note. Patient is 69 y/o GANDHI w/ h/o biliary colic. Ultrasound with large stones around 2cm. MRCP demonstrates no CBD stones. COVID test is pending On my exam RUQ abdominal pain, no nausea/vomting, abdomen soft/non-distended Plan: - To OR after COVID testing results for lap vs open cholecystectomy - Start clears, NPO after midnight Labs reviewed. Pertinent imaging personally reviewed. Discussed plan with other members of the healthcare team. at 1407 at 1741 RPT #:[id number] END OF REPORT [facility] 2019-09-23 10:32:00 [facility] REPORT#:[id number] REPORT STATUS: Signed DATE:09/23/19 TIME: 1032 PATIENT: SEYMOUR SNOW UNIT #: [id number] ROOM/BED: [address] : 48 AGE: 69 SEX: M ATTEND: Lizzy Duke MD ADM AUTHOR: Mariana Siegel * ALL edits or amendments must be made on the electronic/computer document * Subjective Chief Complaint: abdominal pain Comments: Interval Hx: VARUN overnight Objective General VS/I O: Vital Signs: Date Time Temp Pulse Resp B/P B/P Pulse O2 O2 Flow FiO2 Mean Ox Delivery Rate 09/22 0738 97.9 64 14 122/72 88.5 96 Room air 09/22 0410 98.2 67 18 130/78 95.5 94 Room air 09/21 2332 98.2 67 17 133/85 101.4 93 Room air 09/21 1844 98.2 68 18 129/74 92.3 96 Room air 09/21 1503 98.3 76 18 126/78 94 96 Room air 09/21 1432 97.9 77 18 149/75 99.6 95 24 hour I O ending at 0700: 09/22 0700 09/21 1900 Intake Total 600.00 Output Total Balance 600.00 Intake, IV 400.00 Intake, Oral 200 Number Voids 3 Patient 109.091 kg 109.091 kg Weight Weight Stated/Reported Stated/Reported Measurement Method Patient Weight Weight (lb): 240 Weight (oz): 8.07 Weight (kg): 109.091 Medications: Active Meds + DC'd Last 24 Hrs Losartan Potassium 50 MG BID PO Piperacillin Sod/Tazobactam Sod 3.375 GM Q8H IV Sodium Chloride 100 ML Pneumococcal 13-Valent Conj Vacc 0.5 ML ASDIR IM Acetaminophen 650 MG Q4H PRN PRN PO Dextrose/Sodium Chloride 1,000 ML .[id number] IV Dextrose/Water 25 ML ASDIR PRN IV Insulin Human Lispro LOW DOSE SCALE ASDIR SUBQ Morphine Sulfate 2 MG Q4H PRN PRN IV Ondansetron HCl 4 MG Q4H PRN PRN IV Sodium Chloride 5 ML Q12HR IV (DC) Sodium Chloride 5 ML ASDIR PRN IV (DC) Sodium Chloride 10 ML ASDIR PRN IV (DC) Sodium Chloride 250 ML ASDIR PRN IV (DC) Ondansetron HCl 4 MG Q4H PRN PRN IV (DC) Ondansetron HCl 4 MG X1ED STA IV (DC) Fentanyl Citrate 25 MCG X1ED STA IV (CAN) Piperacillin Sod/Tazobactam Sod 3.375 GM X1ED STA IV (DC) Sodium Chloride 100 ML Lactated Ringer's 1,000 ML X1ED STA IV (DC) Morphine Sulfate 4 MG X1ED STA IV (DC) Physical Exam General appearance: obese, alert, awake, no acute distress, no respiratory distress Head/Eyes: atraumatic, normocephalic, PERRLA Neck: full range of motion, non-tender, no JVD Cardiovascular: normal heart sounds, no gallop, no murmur, no rub Respiratory: aerating well, symmetric expansion, no distress Abdomen: obese, tenderness, no distention Extremities: moves all Neuro/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: alert, oriented X 3, CNII-XII intact, normal speech Skin: dry, intact Psychiatry: not homicidal, not suicidal, no hallucinations Results Findings/Data: Laboratory Tests 09/22 09/22 09/21 09/21 09/21 0607 0337 1946 1731 1731 Chemistry POC Glucose (74 - 106 MG/DL) 146 H 152 H Lactic Acid (0.7 - 2.0 mmol/L) 1.8 Total Bilirubin (0.2 - 1.3 mg/dL) 2.0 H Conjugated Bilirubin (0 - 0.3 mg/dL) 0 Unconjugated Bilirubin (0 - 1.1 mg/dL) 1.1 AST (15 - 46 U/L) 53 H ALT (13 - 69 U/L) 69 Total Alk Phosphatase (38 - 126 U/L) 223 H Total Protein (6.3 - 8.2 g/dL) 6.3 Albumin (3.5 - 5.0 g/dL) 3.0 L Triglycerides (mg/dL) 189 Cholesterol (mg/dL) 188 LDL Cholesterol Measurd (32 - 99 mg/dL) 101.68 H HDL Cholesterol (40 - 59 mg/dL) 23 L Coronary Risk Interp 8.17 Lipase (23 - 300 U/L) 225 09/21 09/21 09/21 1525 1511 1511 Chemistry Sodium (137 - 145 mmol/L) 132 L Potassium (3.4 - 5.0 mmol/L) 3.9 Chloride (98 - 107 mmol/L) 101 Carbon Dioxide (22 - 30 mmol/L) 20 L BUN (9 - 20 mg/dL) 21 H Creatinine (0.7 - 1.3 mg/dL) 0.9 Glomerular Filtr Rate (>60) 88 Glucose (74 - 106 mg/dL) 237 H Lactic Acid (0.7 - 2.0 mmol/L) 2.6 *H Calcium (8.4 - 10.2 mg/dL) 8.2 L Total Bilirubin (0.2 - 1.3 mg/dL) 2.2 H Conjugated Bilirubin (0 - 0.3 mg/dL) 0 Unconjugated Bilirubin (0 - 1.1 mg/dL) 0.9 AST (15 - 46 U/L) 65 H ALT (13 - 69 U/L) 68 Total Alk Phosphatase (38 - 126 U/L) 272 H Rapid Troponin I (0.00 - 0.079 ng/mL) 0.00 Total Protein (6.3 - 8.2 g/dL) 7.0 Albumin (3.5 - 5.0 g/dL) 3.3 L Lipase (23 - 300 U/L) 501 H Laboratory Tests 09/21 1511 Coagulation INR 1.4 PT Patient/Control Mix (9.2 - 12.1 SECONDS) 15.4 H Laboratory Tests 09/22 09/21 0337 1511 Hematology WBC (5.0 - 12.0 x10 3/uL) 10.7 9.4 RBC (4.70 - 6.10 x10 6/uL) 3.98 L 4.13 L Hgb (14.0 - 18.0 g/dL) 12.5 L 13.0 L Hct (37.0 - 49.0 %) 35.8 L 36.8 L MCV (80 - 94 fL) 90 89 MCH (27 - 31 pg) 31.4 H 31.5 H MCHC (33 - 37 g/dL) 34.9 35.3 RDW (11.5 - 15.5 %) 13.2 13.1 Plt Count (130 - 400 x10 3/uL) 263 261 MPV (9.4 - 16.4 fL) 9.5 9.4 Neut % (Auto) (43 - 65 %) 71.6 H 77.0 H Lymph % (Auto) (20.5 - 45.5 %) 20.4 L 16.8 L [place] % (Auto) (5.5 - 11.7 %) 4.8 L 3.8 L Eos % (Auto) (0.9 - 2.9 %) 1.7 1.0 Baso % (Auto) (0.2 - 1.0 %) 0.5 0.6 Neut # (Auto) (2.2 - 4.8 x10 3/uL) 7.68 H 7.26 H Lymph # (Auto) (1.3 - 2.9 x10 3/uL) 2.18 1.58 [place] # (Auto) (0.3 - 0.8 x10 3/uL) 0.51 0.36 Eos # (Auto) (0.0 - 0.2 x10 3/uL) 0.18 0.09 Baso # (Auto) (0.0 - 0.1 x10 3/uL) 0.05 0.06 Immature Gran % (0.0 - 2.0 %) 1.0 0.8 Nucleated RBC % (0 - 1.0 %) 0.0 0.0 Laboratory Tests 09/21 1511 Urines Urine Color (Yellow) Yellow Urine Appearance (Clear) Clear Urine pH (5.0 - 8.0) 6.0 Ur Specific Compton (<1.030) 1.014 Urine Protein (Negative mg/dL) NEGATIVE Urine Glucose (UA) (Negative) 150 (2+) H Urine Ketones (Negative mg/dL) Negative Urine Blood (Negative) Negative Urine Nitrite (Negative) Negative Urine Bilirubin (Negative) Negative Urine Urobilinogen (Negative mg/dL) Negative Ur Leukocyte Esterase (Negative) NEGATIVE Urine RBC (<4 - 5 /HPF) 0-3 Urine WBC (<4 - 5 /HPF) 0-3 Urine Bacteria (None - Rare /HPF) NONE SEEN Radiology data: Recent Impressions: ULTRASOUND - US ABDOMEN LTD 09/21 1546 Report Impression - Status: SIGNED Entered: 09/22/2019 1558 IMPRESSION: Distended gallbladder filled with sludge and stones measuring up to 2 similar. Gallbladder wall thickening. Findings concerning for cholecystitis. Cirrhotic heterogeneous liver. Impression By: [email or web address] Ari Hodgson MD Diagnosis, Assessment Plan Plan discussed with: patient, consultants, nurse, interdisc care team Free Text DxA P Notes Free text DxA P notes: 69yo M admitted for management of cholecystitis. #Cholecystitis: surgical intervention pending COVID PCR -continue management per general surgery consult sevice #HTN: controlled -continue ARB #T2DM: stable FSG -hold metformin, continue PRN SSI, f/u A1c #Obesity: BMI > 30 -ensure low salt DM diet < 2000 kcal #HLD: ASCVD > 7.5% -consider statin initiation prior to DC #Dispo: DC pending clinical recovery -hospital medicine will continue to follow at 1151 RPT #:[id number] END OF REPORT [facility] 2019-09-23 04:06:00 [id number] [facility] [place] on [address] [place] [address] PATIENT NAME: SEYMOUR SNOW ADMIT DATE: 09/22/19 ACCOUNT NO: [id number] ROOM NO: [facility] AGE: 69 REPORT TYPE: HISTORY AND PHYSICAL SEX: M ADMITTING PHYSICIAN:Lizzy Duke MD ATTENDING PHYSICIAN:Lizzy Duke MD ADMISSION DATE: 09/22/2019 CHIEF COMPLAINT: Abdominal pain. HISTORY OF PRESENTING ILLNESS: A 69-year-old male with past medical history of type 2 diabetes mellitus, hypertension, has been experiencing epigastric and right upper quadrant pain for the past 2 weeks. Apparently 5 days ago, he was in [place], went to a doctor, was told to have fatty liver, but then since yesterday, he has been having nausea and vomiting, so he came to ER. Ultrasound shows gallstones, so the patient is admitted. At the time of my visit, he is lying comfortably. His pain is controlled. He never had similar symptoms in the past. He denies chest pain, cough, shortness of breath, fever. PAST MEDICAL HISTORY: Hypertension, type 2 diabetes mellitus. PAST SURGICAL HISTORY: None. SOCIAL HISTORY: Denies smoking. Drinks alcohol sometimes. Does not use recreational drugs. ALLERGIES: NO KNOWN DRUG ALLERGIES. HOME MEDICATIONS: Losartan and metformin. FAMILY HISTORY: Hypertension. REVIEW OF SYSTEMS: All 10 systems are reviewed. They are negative except as described above. PHYSICAL EXAMINATION: VITAL SIGNS: Temperature 97.9 degrees Fahrenheit, pulse of 77, respiratory rate 18, blood pressure 149/75 and oxygen saturation 95% on room air. GENERAL: Awake, alert, not in acute distress. HEENT: Atraumatic and normocephalic. Pupils equal, round, reactive to light and accommodation. NECK: Supple. No JVD. No thyroidmegaly. CARDIOVASCULAR: Normal S1 and S2. No murmur heard. RESPIRATORY: Fair air entry bilateral. No wheezing, no rhonchi. ABDOMEN: Soft, nontender. Positive bowel sounds. EXTREMITIES: No clubbing, no cyanosis, no edema. NEUROLOGIC: Awake, alert and oriented x3. No focal neurological deficits. MUSCULOSKELETAL: No deformity. SKIN: No rash. No ulcers. PATIENT NAME: SEYMOUR SNOW LABORATORY DATA AND DIAGNOSTIC STUDIES: Ultrasound shows distended gallbladder filled with sludge and stones measuring up to 2, gallbladder wall thickening findings concerning for cholecystitis. Lipase 501, AST 65, ALT 68, alkaline phosphatase 272. Lactic acid 2.6. Glucose 237. Sodium 132, potassium 3.9, BUN 21 and creatinine 0.9. Urinalysis negative for infection. WBC is 9.4, hemoglobin 13, hematocrit 36.8 and platelets of 261. ASSESSMENT AND PLAN: 1. Biliary colic. 2. Hypertension. 3. Type 2 diabetes mellitus. PLAN OF CARE: 1. We will keep him n.p.o., start him on IV fluids, pain control and IV empiric antibiotics. 2. Consult Surgery for expert recommendations. 3. Losartan for hypertension. 4. NovoLog sliding scale for diabetes. Further treatment will be based on hospital course. Dictated By: Pawan Restrepo MD WT: ALEJANDRA/GERTRUDIS. Conf#: [id number]/DID#: [id number] Authenticated by Pawan Restrepo MD On 10/28/2019 08:15:28 AM at 0815 PATIENT NAME: SEYMOUR SNOW [facility] 2019-09-22 22:00:00 [facility] Admit Note - Brief REPORT#:[id number] REPORT STATUS: Signed DATE:09/22/19 TIME: 2199 PATIENT: SEYMOUR SNOW UNIT #: [id number] ROOM/BED: [address] : [address] AGE: 69 SEX: M ATTEND: Lizzy Duke MD ADM AUTHOR: Pawan Restrepo MD * ALL edits or amendments must be made on the electronic/computer document * History of Present Illness History of present illness: [id number] History - Adult longitudinal Allergies: Coded Allergies: No Known Allergies (10/26/18) at 0407 RPT #:[id number] END OF REPORT [facility] 2019-09-22 14:29:00 [facility] EMERGENCY PROVIDER REPORT REPORT#:[id number] REPORT STATUS: Signed DATE:09/22/19 TIME: 1428 PATIENT: SEYMOUR SNOW UNIT #: [id number] ROOM/BED: [address] AGE: 69 SEX: M PCP PHYS: No Primary or Family Physician SERVICE AUTHOR: Dimple Hicks NP * ALL edits or amendments must be made on the electronic/computer document * Dimple Hicks 09/22/19 1429: HPI-Abd Pain M 40 and Over General Confirmed Patient Yes Patient Type New patient Provider in Triage Greet Note I have greeted and performed a focused rapid initial assessment of this patient. A comprehensive ED assessment and evaluation of the patient, analysis of all test results, and completion of the medical decision-making process will be conducted by additional ED providers. MSE Not Complete The medical screening exam is not complete. Further evaluation and/or treatment is required. The patient will be re-directed to the emergency department. Presentation Chief Complaint Abdominal pain Hx Obtained From Patient Free Text HPI Notes Free Text HPI Notes Patient is a 69-year-old male who presents to the emergency department complaining of right upper quadrant abdominal pain onset 2 weeks ago. Patient reports pain has been intermittent. Patient reports he was evaluated on Friday while in [place] by a doctor. Patient reports he did not obtained results of doctor visit. Patient reports on Friday he had fever, nausea, vomiting, and diarrhea but he reports these symptoms are resolved at this time but the abdominal pain persists. Patient reports travel to [place] recently. Patient denies exposure to sick contacts, or exposure to persons with known COVID infection. Patient denies any other concerns or complaints at this time. MSE initiated in triage by Cornelius Hicks NP. Patient to be further evaluated and treated in main ED by another provider. Past Medical History - Adult Stated Complaint LEFT UPPER QUAD ABD PAIN Allergies Coded Allergies: No Known Allergies (10/26/18) Past Medical History: Reports: Diabetes mellitus, Hypertension. Additional Surgical History Neck surgery, 40 years ago Physical Exam Vital Signs Vital Signs First Documented: Result Date Time Pulse Ox 95 05/ 1432 B/P 149/75 05/ 1432 B/P Mean 99.6 05/ 1432 Temp 97.9 05/06 1432 Pulse 77 05/06 1432 Resp 18 05/06 1432 O2 Delivery Room air 05/ 1503 Last Documented: Result Date Time Pulse Ox 96 05/ 1503 B/P 126/78 05/06 1503 B/P Mean 94 05/06 1503 O2 Delivery Room air 05/06 1503 Temp 98.3 05/06 1503 Pulse 76 05/06 1503 Resp 18 05/06 1503 Interpretation Diagnostics Lab Results Interpretation Results Laboratory Tests 09/22/19 1511: [Embedded Image Not Available] Laboratory Tests: 09/21 09/21 05/ 1525 1511 1511 Chemistry Sodium (137 - 145 mmol/L) 132 L Potassium (3.4 - 5.0 mmol/L) 3.9 Chloride (98 - 107 mmol/L) 101 Carbon Dioxide (22 - 30 mmol/L) 20 L BUN (9 - 20 mg/dL) 21 H Creatinine (0.7 - 1.3 mg/dL) 0.9 Glomerular Filtr Rate (>60) 88 Glucose (74 - 106 mg/dL) 237 H Lactic Acid (0.7 - 2.0 mmol/L) 2.6 *H Calcium (8.4 - 10.2 mg/dL) 8.2 L Total Bilirubin (0.2 - 1.3 mg/dL) 2.2 H Conjugated Bilirubin (0 - 0.3 mg/dL) 0 Unconjugated Bilirubin (0 - 1.1 mg/dL) 0.9 AST (15 - 46 U/L) 65 H ALT (13 - 69 U/L) 68 Total Alk Phosphatase (38 - 126 U/L) 272 H Rapid Troponin I (0.00 - 0.079 ng/mL) 0.00 Total Protein (6.3 - 8.2 g/dL) 7.0 Albumin (3.5 - 5.0 g/dL) 3.3 L Lipase (23 - 300 U/L) 501 H Coagulation INR 1.4 PT Patient/Control Mix (9.2 - 12.1 SECONDS) 15.4 H Hematology WBC (5.0 - 12.0 x10 3/uL) 9.4 RBC (4.70 - 6.10 x10 6/uL) 4.13 L Hgb (14.0 - 18.0 g/dL) 13.0 L Hct (37.0 - 49.0 %) 36.8 L MCV (80 - 94 fL) 89 MCH (27 - 31 pg) 31.5 H MCHC (33 - 37 g/dL) 35.3 RDW (11.5 - 15.5 %) 13.1 Plt Count (130 - 400 x10 3/uL) 261 MPV (9.4 - 16.4 fL) 9.4 Neut % (Auto) (43 - 65 %) 77.0 H Lymph % (Auto) (20.5 - 45.5 %) 16.8 L [place] % (Auto) (5.5 - 11.7 %) 3.8 L Eos % (Auto) (0.9 - 2.9 %) 1.0 Baso % (Auto) (0.2 - 1.0 %) 0.6 Neut # (Auto) (2.2 - 4.8 x10 3/uL) 7.26 H Lymph # (Auto) (1.3 - 2.9 x10 3/uL) 1.58 [place] # (Auto) (0.3 - 0.8 x10 3/uL) 0.36 Eos # (Auto) (0.0 - 0.2 x10 3/uL) 0.09 Baso # (Auto) (0.0 - 0.1 x10 3/uL) 0.06 Immature Gran % (0.0 - 2.0 %) 0.8 Nucleated RBC % (0 - 1.0 %) 0.0 Urines Urine Color (Yellow) Yellow Urine Appearance (Clear) Clear Urine pH (5.0 - 8.0) 6.0 Ur Specific Compton (<1.030) 1.014 Urine Protein (Negative mg/dL) NEGATIVE Urine Glucose (UA) (Negative) 150 (2+) H Urine Ketones (Negative mg/dL) Negative Urine Blood (Negative) Negative Urine Nitrite (Negative) Negative Urine Bilirubin (Negative) Negative Urine Urobilinogen (Negative mg/dL) Negative Ur Leukocyte Esterase (Negative) NEGATIVE Urine RBC (<4 - 5 /HPF) 0-3 Urine WBC (<4 - 5 /HPF) 0-3 Urine Bacteria (None - Rare /HPF) NONE SEEN Microbiology: Date/Time Procedure - Status Source Growth 09/21 1510 Blood Culture - RECD BLOOD 09/21 151 Blood Culture - RECD BLOOD Recent Impressions: ULTRASOUND - US ABDOMEN LTD 09/21 1546 Report Impression - Status: SIGNED Entered: 09/22/2019 1558 IMPRESSION: Distended gallbladder filled with sludge and stones measuring up to 2 similar. Gallbladder wall thickening. Findings concerning for cholecystitis. Cirrhotic heterogeneous liver. Impression By: [email or web address] Ari Hodgson MD Re-Evaluation MDM ED Course Medication(s) Ordered Medication(s) Ordered: Anti-Infective Agents Sig/Mary Start time Last Medication Dose Route Stop Time Status Admin Piperacillin Sod/ 3.375 GM X1ED STA 09/21 1434 DC 09/21 Tazobactam Sod IV 09/21 1503 1551 Sodium Chloride 100 ML Central Nervous System Agents Sig/Mary Start time Last Medication Dose Route Stop Time Status Admin Fentanyl Citrate 25 MCG X1ED STA 09/21 1510 CAN IV 05/06 1511 Morphine Sulfate 4 MG X1ED STA 05/ 1432 DC 05/06 IV 05/06 1433 1550 Electrolytic, Caloric, And Eli Sig/Mary Start time Last Medication Dose Route Stop Time Status Admin Sodium Chloride 5 ML Q12HR 09/21 2100 AC IV 05/ 2239 Sodium Chloride 5 ML ASDIR PRN 05/06 1645 AC IV 05/ 2239 Sodium Chloride 10 ML ASDIR PRN 05/06 1645 AC IV 05/ 2239 Sodium Chloride 250 ML ASDIR PRN 05/06 1645 AC IV 05/ 2239 Lactated Ringer's 1,000 ML X1ED STA 05 1433 DC 05/06 IV 05/06 1434 1551 Gastrointestinal Drugs Sig/Mary Start time Last Medication Dose Route Stop Time Status Admin Ondansetron HCl 4 MG Q4H PRN PRN / 1640 DC IV 05/ 2239 Ondansetron HCl 4 MG X1ED STA 05/ 1523 DC 05/06 IV 05/06 1524 1550 Patient Discharge Departure Vital Signs/Condition Vital Signs First Documented: Result Date Time Pulse Ox 95 05/06 1432 B/P 149/75 05/06 1432 B/P Mean 99.6 05/06 1432 Temp 97.9 05/06 1432 Pulse 77 05/06 1432 Resp 18 05/06 1432 O2 Delivery Room air 05/06 1503 Last Documented: Result Date Time Pulse Ox 96 05/06 1503 B/P 126/78 05/06 1503 B/P Mean 94 05/06 1503 O2 Delivery Room air 05/06 1503 Temp 98.3 05/06 1503 Pulse 76 05/06 1503 Resp 18 05/06 1503 All vital signs available at the time of this entry have been reviewed. Discharge/Care Plan Referrals No Primary or Family Physician (PCP/Family) Aman Ramírez 09/22/19 1526: HPI-Abd Pain M 40 and Over General Initial Greet Date/Time 09/22/19 1429 Presentation Sudden in Onset? No Free Text HPI Notes Free Text HPI Notes akornhauser - ruq pain intermittent x 10 days worsening was in [place] and told he had a problem with his gb presents to ed today for wosening pain n/v states pain is moderate 7/10 radiates to back no mitigating exacerbating factors Risk-Abd Pain M 40 and Over )( Abdominal Aortic Aneurysm Risk factors reviewed Review of Systems ROS Statements All systems rev neg except as marked. Complete sys rev neg except as marked. Basic Review of Systems Basic ROS EYES: No redness, ENT: No sore throat, HEM: No bleeding/bruising, SKIN : No rash, NEURO: No change MS, NEURO: No focal deficit, PSYCH: NL thought content Focused Review of Systems Constitutional Denies: Chills, Fatigue. Respiratory Denies: Cough, non-productive, Cough, productive. Cardiovascular Denies: Chest pain, Dyspnea on exertion. GI Reports: Abdominal pain. Denies: Anorexia. Male Denies: Dysuria, Flank pain. Musculoskeletal Denies: Back pain, Extremity pain. Additional Review of Systems Eyes Denies: Blurred R, Blurred L. Ears/Nose/Throat Denies: Ear drainage R, Ear drainage L. Hematologic Denies: Adenopathy, Bleeding. Endocrine Denies: Cold intolerance, Heat intolerance. Skin Denies: Abrasion, Abscess. Allergy/Immun Denies: Allergic reaction, Anaphylaxis. Neurologic Denies: Abnormal movement, Bladder dysfunction, Bowel dysfunction. Psychiatric Denies: Agitation, Anxiety. Physical Exam Basic Physical Exam Basic PE HEAD: Atraumatic/NC, EYES: PERRL, conj clear, ENT: Membranes moist, NECK: Supple, EXT: No gross abnormality, SKIN: No rashes, warm/dry, NEURO: alert oriented, NEURO: gross movement NL, PSYCH: NL thought content Focused PE General/Const General/Const Awake, Alert, No acute distress MS Head Head Atraumatic, Normocephalic Eyes Eyes Atraumatic, PERRL, EOMI Ears/Nose/Throat Ears/Nose/Throat Atraumatic, Airway patent, Mucous membranes moist Resp/Chest Respiratory/Chest Atraumatic, Breath sounds NL, Breath sounds = bilat Cardiovascular Cardiovascular Heart rate NL, Regular rhythm, Heart sounds NL Abdomen/GI Abdomen/GI Atraumatic Text/Dict Notes ruq tendernss + murphys no rebound/guarding MS Back Back Atraumatic, Inspection NL Skin Skin Atraumatic, Color NL, No rash Neurologic Neurologic Oriented X3, Speech NL, No motor deficits Interpretation Diagnostics Lab Results Interpretation Considerations Independ review imaging, Reviewed prior records Lab Imaging Statement Laboratory radiographic studies reviewed and considered in the medical decision-making. Point of Care Testing Pulse Oximetry Pulse Ox % 97 On: Room air Time 1533 ECG #1 Interpretation Text/Dict Note nsr rate [address] changs time 15:10 Re-Evaluation MDM )( Re-Evaluation/Progress #1 Text/Dict Note LACTATE ELEVATED RO SEVERE SEPSIS Time of Re-Eval 1551 Re-Evaluation/Progress #2 Time of Eval 1710 Tissue Perfusion Reassessment Patient tissue perfusion reassessment completed. Patient Discharge Departure Clinical Impression Clinical Impression Primary Impression: Cholecystitis Secondary Impressions: Severe sepsis Disposition Decision Admit Admit Physician Name Rocio Menjivar DO Admit Physician Hospitalist Request Time 1641 Request Date 09/22/19 )( Admission Accepts Yes )( Accepted Time 1641 )( Accepted Date 09/22/19 Call Information will see patient Critical Care Time Spent (minutes): 45 Services Performed Patient management by me, Time spent at bedside, Reviewing test results, Reviewing imaging, Discussing patient care, Documentation in record, Time with fam/surrogate Separately billable procedures excluded from time. Patient was critically ill due to: SEVERE SEPSI S My treatment and management were: IVF ABX CC Note 1 Total critical care time [45] minutes. Total critical care time documented does not include time spent on separately billed procedures or the services of residents, students, nurses or physician assistants. I personally saw and examined the patient. I have reviewed all diagnostic interpretations and treatment plans as written. I was present for the dobbs portions of any procedures performed and the inclusive time noted in any critical care statement. Critical care time includes patient management by me, time spent at the patients bedside, time to review lab and imaging results, discussing patient care, documentation in the medical record, and time spent with the family or caregiver. CC Note 2 The high probability of sudden, clinically significant deterioration in the patient's condition required the highest level of my preparedness to intervene urgently. The services I provided to this patient were to treat and/or prevent clinically significant deterioration that could result in severe disability or . Services included the following: chart data review, reviewing nursing notes and/ or old charts, documentation time, groundwater consultant collaboration regarding findings and treatment options, medication orders and management, direct patient care, re -evaluations, vital sign assessments and ordering, interpreting and reviewing diagnostic studies/lab tests. Aggregate critical care time was [45] minutes, which includes only time during which I was engaged in work directly related to the patient's care, as described above, whether at the bedside or elsewhere in the Emergency Department. It did not include time spent performing other reported procedures or the services of residents, students, nurses or physician assistants. Supervising Physician Note Provider Scribed Statement I personally performed the services described in this documentation and reviewed the documentation that was dictated to the scribe(s) in my presence, and it accurately records my words and actions. Aman Ramírez, 09/22/19 at 2226 RPT #:[id number] END OF REPORT [facility] 2019-09-22 14:29:00 [facility] EMERGENCY PROVIDER REPORT REPORT#:[id number] REPORT STATUS: Signed DATE:09/22/19 TIME: 1428 PATIENT: SEYMOUR SNOW UNIT #: [id number] ROOM/BED: [address] AGE: 69 SEX: M PCP PHYS: No Primary or Family Physician SERVICE AUTHOR: Dimple Hicks BALL WARPER TENDER * ALL edits or amendments must be made on the electronic/computer document * Dimple Hicks 09/22/19 1429: HPI-Abd Pain M 40 and Over General Confirmed Patient Yes Patient Type New patient Initial Greet Date/Time 09/22/19 142 Provider in Triage Greet Note I have greeted and performed a focused rapid initial assessment of this patient. A comprehensive ED assessment and evaluation of the patient, analysis of all test results, and completion of the medical decision-making process will be conducted by additional ED providers. MSE Not Complete The medical screening exam is not complete. Further evaluation and/or treatment is required. The patient will be re-directed to the emergency department. Presentation Chief Complaint Abdominal pain Hx Obtained From Patient Free Text HPI Notes Free Text HPI Notes Patient is a 69-year-old male who presents to the emergency department complaining of right upper quadrant abdominal pain onset 2 weeks ago. Patient reports pain has been intermittent. Patient reports he was evaluated on Friday while in [place] by a doctor. Patient reports he did not obtained results of doctor visit. Patient reports on Friday he had fever, nausea, vomiting, and diarrhea but he reports these symptoms are resolved at this time but the abdominal pain persists. Patient reports travel to [place] recently. Patient denies exposure to sick contacts, or exposure to persons with known COVID infection. Patient denies any other concerns or complaints at this time. MSE initiated in triage by Cornelius Hicks NP. Patient to be further evaluated and treated in main ED by another provider. Past Medical History - Adult Stated Complaint LEFT UPPER QUAD ABD PAIN Allergies Coded Allergies: No Known Allergies (10/26/18) Home Medications Reported Medications LOSARTAN (COZAAR) 50 MG PO BID metFORMIN (GLUCOPHAGE) 850 MG PO BID [ANTIBIOITC] Past Medical History: Reports: Diabetes mellitus, Hypertension. Additional Surgical History Neck surgery, 40 years ago Physical Exam Vital Signs Vital Signs First Documented: Result Date Time Pulse Ox 95 05/06 1432 B/P 149/75 05/06 1432 B/P Mean 99.6 05/06 1432 Temp 97.9 05/06 1432 Pulse 77 05/06 1432 Resp 18 05/06 1432 O2 Delivery Room air 05/06 1503 Last Documented: Result Date Time Pulse Ox 96 05/06 1503 B/P 126/78 05/06 1503 B/P Mean 94 05/06 1503 O2 Delivery Room air 05/06 1503 Temp 98.3 05/06 1503 Pulse 76 05/06 1503 Resp 18 05/06 1503 Patient Discharge Departure Vital Signs/Condition Vital Signs First Documented: Result Date Time Pulse Ox 95 05/06 1432 B/P 149/75 05/06 1432 B/P Mean 99.6 05/06 1432 Temp 97.9 05/06 1432 Pulse 77 05/06 1432 Resp 18 05/06 1432 O2 Delivery Room air 05/06 1503 Last Documented: Result Date Time Pulse Ox 96 05/06 1503 B/P 126/78 05/06 1503 B/P Mean 94 05/06 1503 O2 Delivery Room air 05/06 1503 Temp 98.3 05/06 1503 Pulse 76 05/06 1503 Resp 18 05/06 1503 All vital signs available at the time of this entry have been reviewed. Discharge/Care Plan Referrals No Primary or Family Physician (PCP/Family) Aman Ramírez 09/22/19 1526: HPI-Abd Pain M 40 and Over Presentation Sudden in Onset? No Free Text HPI Notes Free Text HPI Notes akornhauser - ruq pain intermittent x 10 days worsening was in [place] and told he had a problem with his gb presents to ed today for wosening pain n/v states pain is moderate 7/10 radiates to back no mitigating exacerbating factors Risk-Abd Pain M 40 and Over )( Abdominal Aortic Aneurysm Risk factors reviewed Review of Systems ROS Statements All systems rev neg except as marked. Complete sys rev neg except as marked. Basic Review of Systems Basic ROS EYES: No redness, ENT: No sore throat, HEM: No bleeding/bruising, SKIN : No rash, NEURO: No change MS, NEURO: No focal deficit, PSYCH: NL thought content Focused Review of Systems Constitutional Denies: Chills, Fatigue. Respiratory Denies: Cough, non-productive, Cough, productive. Cardiovascular Denies: Chest pain, Dyspnea on exertion. GI Reports: Abdominal pain. Denies: Anorexia. Male Denies: Dysuria, Flank pain. Musculoskeletal Denies: Back pain, Extremity pain. Additional Review of Systems Eyes Denies: Blurred R, Blurred L. Ears/Nose/Throat Denies: Ear drainage R, Ear drainage L. Hematologic Denies: Adenopathy, Bleeding. Endocrine Denies: Cold intolerance, Heat intolerance. Skin Denies: Abrasion, Abscess. Allergy/Immun Denies: Allergic reaction, Anaphylaxis. Neurologic Denies: Abnormal movement, Bladder dysfunction, Bowel dysfunction. Psychiatric Denies: Agitation, Anxiety. Physical Exam Basic Physical Exam Basic PE HEAD: Atraumatic/NC, EYES: PERRL, conj clear, ENT: Membranes moist, NECK: Supple, EXT: No gross abnormality, SKIN: No rashes, warm/dry, NEURO: alert oriented, NEURO: gross movement NL, PSYCH: NL thought content Focused PE General/Const General/Const Awake, Alert, No acute distress MS Head Head Atraumatic, Normocephalic Eyes Eyes Atraumatic, PERRL, EOMI Ears/Nose/Throat Ears/Nose/Throat Atraumatic, Airway patent, Mucous membranes moist Resp/Chest Respiratory/Chest Atraumatic, Breath sounds NL, Breath sounds = bilat Cardiovascular Cardiovascular Heart rate NL, Regular rhythm, Heart sounds NL Abdomen/GI Abdomen/GI Atraumatic Text/Dict Notes ruq tendernss + murphys no rebound/guarding MS Back Back Atraumatic, Inspection NL Skin Skin Atraumatic, Color NL, No rash Neurologic Neurologic Oriented X3, Speech NL, No motor deficits Interpretation Diagnostics Lab Results Interpretation Considerations Independ review imaging, Reviewed prior records Results Laboratory Tests 09/22/19 1511: [Embedded Image Not Available] Laboratory Tests: 09/21 09/21 09/21 1525 1511 1511 Chemistry Sodium (137 - 145 mmol/L) 132 L Potassium (3.4 - 5.0 mmol/L) 3.9 Chloride (98 - 107 mmol/L) 101 Carbon Dioxide (22 - 30 mmol/L) 20 L BUN (9 - 20 mg/dL) 21 H Creatinine (0.7 - 1.3 mg/dL) 0.9 Glomerular Filtr Rate (>60) 88 Glucose (74 - 106 mg/dL) 237 H Lactic Acid (0.7 - 2.0 mmol/L) 2.6 *H Calcium (8.4 - 10.2 mg/dL) 8.2 L Total Bilirubin (0.2 - 1.3 mg/dL) 2.2 H Conjugated Bilirubin (0 - 0.3 mg/dL) 0 Unconjugated Bilirubin (0 - 1.1 mg/dL) 0.9 AST (15 - 46 U/L) 65 H ALT (13 - 69 U/L) 68 Total Alk Phosphatase (38 - 126 U/L) 272 H Rapid Troponin I (0.00 - 0.079 ng/mL) 0.00 Total Protein (6.3 - 8.2 g/dL) 7.0 Albumin (3.5 - 5.0 g/dL) 3.3 L Lipase (23 - 300 U/L) 501 H Coagulation INR 1.4 PT Patient/Control Mix (9.2 - 12.1 SECONDS) 15.4 H Hematology WBC (5.0 - 12.0 x10 3/uL) 9.4 RBC (4.70 - 6.10 x10 6/uL) 4.13 L Hgb (14.0 - 18.0 g/dL) 13.0 L Hct (37.0 - 49.0 %) 36.8 L MCV (80 - 94 fL) 89 MCH (27 - 31 pg) 31.5 H MCHC (33 - 37 g/dL) 35.3 RDW (11.5 - 15.5 %) 13.1 Plt Count (130 - 400 x10 3/uL) 261 MPV (9.4 - 16.4 fL) 9.4 Neut % (Auto) (43 - 65 %) 77.0 H Lymph % (Auto) (20.5 - 45.5 %) 16.8 L [place] % (Auto) (5.5 - 11.7 %) 3.8 L Eos % (Auto) (0.9 - 2.9 %) 1.0 Baso % (Auto) (0.2 - 1.0 %) 0.6 Neut # (Auto) (2.2 - 4.8 x10 3/uL) 7.26 H Lymph # (Auto) (1.3 - 2.9 x10 3/uL) 1.58 [place] # (Auto) (0.3 - 0.8 x10 3/uL) 0.36 Eos # (Auto) (0.0 - 0.2 x10 3/uL) 0.09 Baso # (Auto) (0.0 - 0.1 x10 3/uL) 0.06 Immature Gran % (0.0 - 2.0 %) 0.8 Nucleated RBC % (0 - 1.0 %) 0.0 Urines Urine Color (Yellow) Yellow Urine Appearance (Clear) Clear Urine pH (5.0 - 8.0) 6.0 Ur Specific Compton (<1.030) 1.014 Urine Protein (Negative mg/dL) NEGATIVE Urine Glucose (UA) (Negative) 150 (2+) H Urine Ketones (Negative mg/dL) Negative Urine Blood (Negative) Negative Urine Nitrite (Negative) Negative Urine Bilirubin (Negative) Negative Urine Urobilinogen (Negative mg/dL) Negative Ur Leukocyte Esterase (Negative) NEGATIVE Urine RBC (<4 - 5 /HPF) 0-3 Urine WBC (<4 - 5 /HPF) 0-3 Urine Bacteria (None - Rare /HPF) NONE SEEN Microbiology: Date/Time Procedure - Status Source Growth 09/21 1510 Blood Culture - RES BLOOD 09/21 1510 Blood Culture - RES BLOOD Recent Impressions: ULTRASOUND - US ABDOMEN LTD 09/21 1546 Report Impression - Status: SIGNED Entered: 09/22/2019 8139 IMPRESSION: Distended gallbladder filled with sludge and stones measuring up to 2 similar. Gallbladder wall thickening. Findings concerning for cholecystitis. Cirrhotic heterogeneous liver. Impression By: Ari Webster MD Lab Imaging Statement Laboratory radiographic studies reviewed and considered in the medical decision-making. Point of Care Testing Pulse Oximetry Pulse Ox % 97 On: Room air Time 1533 ECG #1 Interpretation Text/Dict Note nsr rate [address] changs time 15:10 Re-Evaluation MDM )( Re-Evaluation/Progress #1 Text/Dict Note LACTATE ELEVATED RO SEVERE SEPSIS Time of Re-Eval 1551 Re-Evaluation/Progress #2 Time of Eval 1710 Tissue Perfusion Reassessment Patient tissue perfusion reassessment completed. ED Course Medication(s) Ordered Medication(s) Ordered: Anti-Infective Agents Sig/Mary Start time Last Medication Dose Route Stop Time Status Admin Piperacillin Sod/ 3.375 GM X1ED STA 05/06 1434 DC 05/06 Tazobactam Sod IV 05/06 1503 1551 Sodium Chloride 100 ML Central Nervous System Agents Sig/Mary Start time Last Medication Dose Route Stop Time Status Admin Fentanyl Citrate 25 MCG X1ED STA 05/06 1510 CAN IV 05/06 1511 Morphine Sulfate 4 MG X1ED STA 05/06 1432 DC 05/06 IV 05/06 1433 1550 Electrolytic, Caloric, And Eli Sig/Mary Start time Last Medication Dose Route Stop Time Status Admin Sodium Chloride 5 ML Q12HR 05/06 2100 DC 05/06 IV 05/06 2239 2241 Sodium Chloride 5 ML ASDIR PRN 05/06 1645 DC IV 05/06 2239 Sodium Chloride 10 ML ASDIR PRN 05/06 1645 DC IV 05/06 2239 Sodium Chloride 250 ML ASDIR PRN 05/06 1645 DC IV 05/06 2239 Lactated Ringer's 1,000 ML X1ED STA 05/06 1433 DC 05/06 IV 05/06 1434 1551 Gastrointestinal Drugs Sig/Mary Start time Last Medication Dose Route Stop Time Status Admin Ondansetron HCl 4 MG Q4H PRN PRN 05/06 1640 DC IV 05/06 2239 Ondansetron HCl 4 MG X1ED STA 05/06 1523 DC 05/06 IV 05/06 1524 1550 Patient Discharge Departure Clinical Impression Clinical Impression Primary Impression: Cholecystitis Secondary Impressions: Severe sepsis Disposition Decision Admit Admit Physician Name Petitt,Rocio D DO Admit Physician Hospitalist Request Time 1641 Request Date 09/22/19 )( Admission Accepts Yes )( Accepted Time 1641 )( Accepted Date 09/22/19 Call Information will see patient Critical Care Time Spent (minutes): 45 Services Performed Patient management by me, Time spent at bedside, Reviewing test results, Reviewing imaging, Discussing patient care, Documentation in record, Time with fam/surrogate Separately billable procedures excluded from time. Patient was critically ill due to: SEVERE SEPSI S My treatment and management were: IVF ABX CC Note 1 Total critical care time [45] minutes. Total critical care time documented does not include time spent on separately billed procedures or the services of residents, students, nurses or physician assistants. I personally saw and examined the patient. I have reviewed all diagnostic interpretations and treatment plans as written. I was present for the dobbs portions of any procedures performed and the inclusive time noted in any critical care statement. Critical care time includes patient management by me, time spent at the patients bedside, time to review lab and imaging results, discussing patient care, documentation in the medical record, and time spent with the family or caregiver. CC Note 2 The high probability of sudden, clinically significant deterioration in the patient's condition required the highest level of my preparedness to intervene urgently. The services I provided to this patient were to treat and/or prevent clinically significant deterioration that could result in severe disability or . Services included the following: chart data review, reviewing nursing notes and/ or old charts, documentation time, groundwater consultant collaboration regarding findings and treatment options, medication orders and management, direct patient care, re -evaluations, vital sign assessments and ordering, interpreting and reviewing diagnostic studies/lab tests. Aggregate critical care time was [45] minutes, which includes only time during which I was engaged in work directly related to the patient's care, as described above, whether at the bedside or elsewhere in the Emergency Department. It did not include time spent performing other reported procedures or the services of residents, students, nurses or physician assistants. Supervising Physician Note Provider Scribed Statement I personally performed the services described in this documentation and reviewed the documentation that was dictated to the scribe(s) in my presence, and it accurately records my words and actions. Aman Ramírez, 09/22/19 at 2226 RPT #:[id number] END OF REPORT [facility] 2019-09-22 14:29:00 [facility] EMERGENCY PROVIDER REPORT REPORT#:[id number] REPORT STATUS: Signed DATE:09/22/19 TIME: 1428 PATIENT: SEYMOUR SNOW UNIT #: [id number] ROOM/BED: [address] AGE: 69 SEX: M PCP PHYS: No Primary or Family Physician SERVICE AUTHOR: Dimple Hicks BALL [employer]PER [employer]ENDER * ALL edits or amendments must be made on the electronic/computer document * Dimple Hicks 09/22/191428: HPI-Abd Pain M 40 and Over General Confirmed Patient Yes Patient Type New patient Initial Greet Date/Time 09/22/191428 Provider in Triage Greet Note I have greeted and performed a focused rapid initial assessment of this patient. A comprehensive ED assessment and evaluation of the patient, analysis of all test results, and completion of the medical decision-making process will be conducted by additional ED providers. MSE Not Complete The medical screening exam is not complete. Further evaluation and/or treatment is required. The patient will be re-directed to the emergency department. Presentation Chief Complaint Abdominal pain Hx Obtained From Patient Free Text HPI Notes Free Text HPI Notes Patient is a 69-year-old male who presents to the emergency department complaining of right upper quadrant abdominal pain onset 10 days ago. Patient reports pain has been intermittent, is worsening, and radiates to his back. Patient reports he was evaluated on Friday while in [place] by a doctor and told he has "gallbladder problems." Patient reports he did not obtained results of doctor visit. Patient reports on Friday he had fever, nausea, vomiting, and diarrhea. Patient reports travel to [place] recently. Patient denies exposure to sick contacts, or exposure to persons with known COVID infection. Patient denies any other concerns or complaints at this time. MSE initiated in triage by Cornelius Hicks NP. Patient to be further evaluated and treated in main ED by another provider. Past Medical History - Adult Stated Complaint LEFT UPPER QUAD ABD PAIN Allergies Coded Allergies: No Known Allergies (10/26/18) Home Medications Reported Medications LOSARTAN (COZAAR) 50 MG PO BID metFORMIN (GLUCOPHAGE) 850 MG PO BID [ANTIBIOITC] Past Medical History: Reports: Diabetes mellitus, Hypertension. Additional Surgical History Neck surgery, 40 years ago Physical Exam Vital Signs Review of Vital Signs Reviewed Patient Discharge Departure Vital Signs/Condition Vital Signs First Documented: Result Date Time Pulse Ox 95 05/ 1432 B/P 149/75 05/06 1432 B/P Mean 99.6 05/ 1432 Temp 97.9 05/06 1432 Pulse 77 05/06 1432 Resp 18 05/06 1432 O2 Delivery Room air 05/ 1503 Last Documented: Result Date Time Pulse Ox 96 05/06 1503 B/P 126/78 05/06 1503 B/P Mean 94 05/06 1503 O2 Delivery Room air 05/ 1503 Temp 98.3 05/06 1503 Pulse 76 05/06 1503 Resp 18 05/06 1503 All vital signs available at the time of this entry have been reviewed. Discharge/Care Plan Referrals No Primary or Family Physician (PCP/Family) Aman Ramírez 09/22/19 1526: HPI-Abd Pain M 40 and Over Presentation Sudden in Onset? No Free Text HPI Notes Free Text HPI Notes akornhauser - ruq pain intermittent x 10 days worsening was in [place] and told he had a problem with his gb presents to ed today for wosening pain n/v states pain is moderate 7/10 radiates to back no mitigating exacerbating factors Risk-Abd Pain M 40 and Over )( Abdominal Aortic Aneurysm Risk factors reviewed Review of Systems ROS Statements All systems rev neg except as marked. Complete sys rev neg except as marked. Basic Review of Systems Basic ROS EYES: No redness, ENT: No sore throat, HEM: No bleeding/bruising, SKIN : No rash, NEURO: No change MS, NEURO: No focal deficit, PSYCH: NL thought content Focused Review of Systems Constitutional Denies: Chills, Fatigue. Respiratory Denies: Cough, non-productive, Cough, productive. Cardiovascular Denies: Chest pain, Dyspnea on exertion. GI Reports: Abdominal pain. Denies: Anorexia. Male Denies: Dysuria, Flank pain. Musculoskeletal Denies: Back pain, Extremity pain. Additional Review of Systems Eyes Denies: Blurred R, Blurred L. Ears/Nose/Throat Denies: Ear drainage R, Ear drainage L. Hematologic Denies: Adenopathy, Bleeding. Endocrine Denies: Cold intolerance, Heat intolerance. Skin Denies: Abrasion, Abscess. Allergy/Immun Denies: Allergic reaction, Anaphylaxis. Neurologic Denies: Abnormal movement, Bladder dysfunction, Bowel dysfunction. Psychiatric Denies: Agitation, Anxiety. Physical Exam Vital Signs Vital Signs First Documented: Result Date Time Pulse Ox 95 09/21 1432 B/P 149/75 05/ 1432 B/P Mean 99.6 09/21 1432 Temp 36.6 09/21 1432 Pulse 77 05 1432 Resp 18 05 1432 O2 Delivery Room air 09/21 1503 Last Documented: Result Date Time Pulse Ox 96 09/21 1503 B/P 126/78 05/ 1503 B/P Mean 94 09/21 1503 O2 Delivery Room air 09/21 1503 Temp 36.8 09/21 1503 Pulse 76 05 1503 Resp 18 05 1503 Basic Physical Exam Basic PE HEAD: Atraumatic/NC, EYES: PERRL, conj clear, ENT: Membranes moist, NECK: Supple, EXT: No gross abnormality, SKIN: No rashes, warm/dry, NEURO: alert oriented, NEURO: gross movement NL, PSYCH: NL thought content Focused PE General/Const General/Const Awake, Alert, No acute distress MS Head Head Atraumatic, Normocephalic Eyes Eyes Atraumatic, PERRL, EOMI Ears/Nose/Throat Ears/Nose/Throat Atraumatic, Airway patent, Mucous membranes moist Resp/Chest Respiratory/Chest Atraumatic, Breath sounds NL, Breath sounds = bilat Cardiovascular Cardiovascular Heart rate NL, Regular rhythm, Heart sounds NL Abdomen/GI Abdomen/GI Atraumatic Text/Dict Notes ruq tendernss + murphys no rebound/guarding MS Back Back Atraumatic, Inspection NL Skin Skin Atraumatic, Color NL, No rash Neurologic Neurologic Oriented X3, Speech NL, No motor deficits Interpretation Diagnostics Lab Results Interpretation Considerations Independ review imaging, Reviewed prior records Results Laboratory Tests 09/22/19 1511: [Embedded Image Not Available] Laboratory Tests: 09/21 09/21 09/21 1525 1511 1511 Chemistry Sodium (137 - 145 mmol/L) 132 L Potassium (3.4 - 5.0 mmol/L) 3.9 Chloride (98 - 107 mmol/L) 101 Carbon Dioxide (22 - 30 mmol/L) 20 L BUN (9 - 20 mg/dL) 21 H Creatinine (0.7 - 1.3 mg/dL) 0.9 Glomerular Filtr Rate (>60) 88 Glucose (74 - 106 mg/dL) 237 H Lactic Acid (0.7 - 2.0 mmol/L) 2.6 *H Calcium (8.4 - 10.2 mg/dL) 8.2 L Total Bilirubin (0.2 - 1.3 mg/dL) 2.2 H Conjugated Bilirubin (0 - 0.3 mg/dL) 0 Unconjugated Bilirubin (0 - 1.1 mg/dL) 0.9 AST (15 - 46 U/L) 65 H ALT (13 - 69 U/L) 68 Total Alk Phosphatase (38 - 126 U/L) 272 H Rapid Troponin I (0.00 - 0.079 ng/mL) 0.00 Total Protein (6.3 - 8.2 g/dL) 7.0 Albumin (3.5 - 5.0 g/dL) 3.3 L Lipase (23 - 300 U/L) 501 H Coagulation INR 1.4 PT Patient/Control Mix (9.2 - 12.1 SECONDS) 15.4 H Hematology WBC (5.0 - 12.0 x10 3/uL) 9.4 RBC (4.70 - 6.10 x10 6/uL) 4.13 L Hgb (14.0 - 18.0 g/dL) 13.0 L Hct (37.0 - 49.0 %) 36.8 L MCV (80 - 94 fL) 89 MCH (27 - 31 pg) 31.5 H MCHC (33 - 37 g/dL) 35.3 RDW (11.5 - 15.5 %) 13.1 Plt Count (130 - 400 x10 3/uL) 261 MPV (9.4 - 16.4 fL) 9.4 Neut % (Auto) (43 - 65 %) 77.0 H Lymph % (Auto) (20.5 - 45.5 %) 16.8 L [place] % (Auto) (5.5 - 11.7 %) 3.8 L Eos % (Auto) (0.9 - 2.9 %) 1.0 Baso % (Auto) (0.2 - 1.0 %) 0.6 Neut # (Auto) (2.2 - 4.8 x10 3/uL) 7.26 H Lymph # (Auto) (1.3 - 2.9 x10 3/uL) 1.58 [place] # (Auto) (0.3 - 0.8 x10 3/uL) 0.36 Eos # (Auto) (0.0 - 0.2 x10 3/uL) 0.09 Baso # (Auto) (0.0 - 0.1 x10 3/uL) 0.06 Immature Gran % (0.0 - 2.0 %) 0.8 Nucleated RBC % (0 - 1.0 %) 0.0 Urines Urine Color (Yellow) Yellow Urine Appearance (Clear) Clear Urine pH (5.0 - 8.0) 6.0 Ur Specific Compton (<1.030) 1.014 Urine Protein (Negative mg/dL) NEGATIVE Urine Glucose (UA) (Negative) 150 (2+) H Urine Ketones (Negative mg/dL) Negative Urine Blood (Negative) Negative Urine Nitrite (Negative) Negative Urine Bilirubin (Negative) Negative Urine Urobilinogen (Negative mg/dL) Negative Ur Leukocyte Esterase (Negative) NEGATIVE Urine RBC (<4 - 5 /HPF) 0-3 Urine WBC (<4 - 5 /HPF) 0-3 Urine Bacteria (None - Rare /HPF) NONE SEEN Microbiology: Date/Time Procedure - Status Source Growth 09/21 151 Blood Culture - RES BLOOD 09/21 151 Blood Culture - RES BLOOD Recent Impressions: ULTRASOUND - US ABDOMEN LTD 09/21 1546 Report Impression - Status: SIGNED Entered: 09/22/2019 1558 IMPRESSION: Distended gallbladder filled with sludge and stones measuring up to 2 similar. Gallbladder wall thickening. Findings concerning for cholecystitis. Cirrhotic heterogeneous liver. Impression By: Ari Webster MD Lab Imaging Statement Laboratory radiographic studies reviewed and considered in the medical decision-making. Point of Care Testing Pulse Oximetry Pulse Ox % 97 On: Room air Time 1533 ECG #1 Interpretation Text/Dict Note nsr rate [address] changs time 15:10 Re-Evaluation MDM )( Re-Evaluation/Progress #1 Text/Dict Note LACTATE ELEVATED RO SEVERE SEPSIS Time of Re-Eval 1551 Re-Evaluation/Progress #2 Time of Eval 1710 Tissue Perfusion Reassessment Patient tissue perfusion reassessment completed. ED Course Medication(s) Ordered Medication(s) Ordered: Anti-Infective Agents Sig/Mary Start time Last Medication Dose Route Stop Time Status Admin Piperacillin Sod/ 3.375 GM X1ED STA 09/21 1434 DC 05/06 Tazobactam Sod IV 05/ 1503 1551 Sodium Chloride 100 ML Central Nervous System Agents Sig/Mary Start time Last Medication Dose Route Stop Time Status Admin Fentanyl Citrate 25 MCG X1ED STA 09/21 1510 CAN IV 09/21 1511 Electrolytic, Caloric, And Eli Sig/Mary Start time Last Medication Dose Route Stop Time Status Admin Sodium Chloride 5 ML Q12HR 09/21 2100 DC 05/ IV 05/ 2239 2241 Sodium Chloride 5 ML ASDIR PRN / 1645 DC IV 05/ 2239 Sodium Chloride 10 ML ASDIR PRN 05/06 1645 DC IV / 2239 Sodium Chloride 250 ML ASDIR PRN / 1645 DC IV / 2239 Gastrointestinal Drugs Sig/Mary Start time Last Medication Dose Route Stop Time Status Admin Ondansetron HCl 4 MG Q4H PRN PRN /06 1640 DC IV 05/ 2239 Ondansetron HCl 4 MG X1ED STA 09/21 1523 DC 05/06 IV 05/06 1524 1550 Patient Discharge Departure Clinical Impression Clinical Impression Primary Impression: Cholecystitis Secondary Impressions: Severe sepsis Disposition Decision Admit Admit Physician Name Rocio Menjivar DO Admit Physician Hospitalist Request Time 1642 Request Date 09/22/19 )( Admission Accepts Yes )( Accepted Time 1642 )( Accepted Date 09/22/19 Call Information will see patient Critical Care Time Spent (minutes): 45 Services Performed Patient management by me, Time spent at bedside, Reviewing test results, Reviewing imaging, Discussing patient care, Documentation in record, Time with fam/surrogate Separately billable procedures excluded from time. Patient was critically ill due to: SEVERE SEPSI S My treatment and management were: IVF ABX CC Note 1 Total critical care time [45] minutes. Total critical care time documented does not include time spent on separately billed procedures or the services of residents, students, nurses or physician assistants. I personally saw and examined the patient. I have reviewed all diagnostic interpretations and treatment plans as written. I was present for the dobbs portions of any procedures performed and the inclusive time noted in any critical care statement. Critical care time includes patient management by me, time spent at the patients bedside, time to review lab and imaging results, discussing patient care, documentation in the medical record, and time spent with the family or caregiver. CC Note 2 The high probability of sudden, clinically significant deterioration in the patient's condition required the highest level of my preparedness to intervene urgently. The services I provided to this patient were to treat and/or prevent clinically significant deterioration that could result in severe disability or . Services included the following: chart data review, reviewing nursing notes and/ or old charts, documentation time, groundwater consultant collaboration regarding findings and treatment options, medication orders and management, direct patient care, re -evaluations, vital sign assessments and ordering, interpreting and reviewing diagnostic studies/lab tests. Aggregate critical care time was [45] minutes, which includes only time during which I was engaged in work directly related to the patient's care, as described above, whether at the bedside or elsewhere in the Emergency Department. It did not include time spent performing other reported procedures or the services of residents, students, nurses or physician assistants. Supervising Physician Note Provider Scribed Statement I personally performed the services described in this documentation and reviewed the documentation that was dictated to the scribe(s) in my presence, and it accurately records my words and actions. Aman Ramírez, 09/22/19 at 2221 at 1444 RPT #:[id number] END OF REPORT [facility] 2018-10-26 17:14:00 ([facility] EMERGENCY PROVIDER REPORT REPORT#:[id number] REPORT STATUS: Signed DATE:10/26/18 TIME: 1714 PATIENT: SEYMOUR SNOW UNIT #: [id number] ROOM/BED: AGE: 68 SEX: M PCP PHYS: No Primary or Family Physician SERVICE AUTHOR: Pito Hayden MD * ALL edits or amendments must be made on the electronic/computer document * HPI-General Illness Free Text HPI Notes Free Text HPI Notes 68 y/o M w/ pmhx DM presents to the ED c/o worsening bilateral leg swelling over the past week. Pt's son states that pt has been dizzy for the past two weeks and has had some SOB, usually when he is moving around. Pt states that the swelling does not hurt but it feels like his "legs are stretching." Pt denies any abdominal distention. pt denies any cardiac hx, renal hx, liver hx, or blood clots in his legs. General Confirmed Patient Yes Patient Type New patient Initial Greet Date/Time 10/26/18 1610 PCP Denies PCP Presentation Chief Complaint Bilateral leg swelling Hx Obtained From Patient, Family Sudden in Onset? No Onset Occurred One week ago Symptom Duration Since onset Progression since Onset Gradually worsening Severity: Onset Mild Severity: Current Moderate Associated with Reports: Shortness of breath. Associated Other Pt denies other symptoms Exacerbated by Nothing Relieved by Nothing Portions of this section were scribed by Sravanthi Naik on 10/26/18 at 1805 Review of Systems ROS Statements All systems rev neg except as marked. Review of Systems Constitutional Denies: Chills, Fatigue, Fever. Eyes Denies: Blurred bilat, Discharge bilat, Eye pain bilat, Photophobia. Ears/Nose/Throat Denies: Ear drainage bilat, Ear ringing bilat, Earache bilat, Hearing loss bilat. Respiratory Reports: Dyspnea on exertion, Shortness of breath. Denies: Cough, non- productive, Cough, productive. Cardiovascular Reports: Dyspnea on exertion. Denies: Chest pain, Palpitations, Syncope. GI Denies: Abdominal pain, Diarrhea, Nausea, Vomiting. Male Denies: Dysuria, Flank pain, Hematuria. Musculoskeletal Reports: Extremity swelling. Denies: Back pain, Extremity pain. Skin Reports: Swelling. Denies: Rash. Neurologic Denies: Headache, Seizure, Syncope. Psychiatric Denies: Agitation, Anxiety, Confusion. Portions of this section were scribed by Sravanthi Naik on 10/26/18 at 1714 Past Medical History - Adult Stated Complaint SWOLLEN LEGS Allergies Coded Allergies: No Known Allergies (10/26/18) Review of Nursing Notes Rev avail, and agree Past Medical History: Reports: Diabetes mellitus, Hypertension. Additional Surgical History Neck surgery, 40 years ago Alcohol Use Denies EtOH use Drug Use Denies recreational drugs Smoking status for patients 13 years old or older: Unknown,if ever smoked Other Social History Good social support Ambulatory Status Independent Portions of this section were scribed by Sravanthi Naik on 10/26/18 at 1714 Physical Exam Vital Signs Vital Signs First Documented: Result Date Time Pulse Ox 96 10/26 1626 B/P 133/78 / 1626 B/P Mean 96 10/26 1626 O2 Delivery Room air 10/26 1626 Temp 36.6 10/26 1626 Pulse 78 10/26 1626 Resp 16 10/26 1626 Last Documented: Result Date Time Pulse Ox 99 10/26 1900 B/P 140/80 10/26 1900 B/P Mean 100 10/26 1900 O2 Delivery Room air 10/26 1900 Pulse 74 10/26 1900 Resp 16 10/26 1900 Temp 36.6 10/26 1626 Review of Vital Signs Reviewed Physical Exam General/Const General/Const Awake, Alert, No acute distress, Cooperative MS Head Head Atraumatic, Normocephalic Eyes Eyes PERRL, EOMI, No nystagmus, Conjunctiva NL, Eyelids NL Ears/Nose/Throat Ears/Nose/Throat Atraumatic, Airway patent, Mucous membranes moist, No sinus tenderness, No facial swelling MS Neck Neck Supple, No meningismus, Full range of motion, No adenopathy Resp/Chest Respiratory/Chest Breath sounds NL, Breath sounds = bilat, No respiratory distress, No rales, No rhonchi, No wheezing, No retractions Cardiovascular Cardiovascular Heart rate NL, Regular rhythm, Heart sounds NL, No gallop, No murmurs, No rubs Abdomen/GI Abdomen/GI Soft, Non-tender, McBurney's non-tender, No guarding, No rebound, No distention MS Back Back Atraumatic, Inspection NL, Full range of motion, Non-tender MS Upper Extrem Upper Extremity/MS Inspection NL, No swelling, No deformity, No edema MS Lower Extrem Text/Dict Notes +2 pitting edema bilaterally Skin Skin Color NL, No rash, Warm, Dry, Intact Neurologic Neurologic Oriented X3, Speech NL, No motor deficits, No sensory deficits, CN II - XII intact Psychiatric Psychiatric Affect NL, Mood NL, Judgment/insight NL, Thought content NL Portions of this section were scribed by Sravanthi Naik on 10/26/18 at 1727 Interpretation Diagnostics Lab Results Interpretation Results Laboratory Tests 10/26/18 1625: [Embedded Image Not Available] Laboratory Tests: 10/26 10/26 1629 1625 Chemistry Sodium (137 - 145 mmol/L) 138 Potassium (3.4 - 5.0 mmol/L) 3.5 Chloride (98 - 107 mmol/L) 105 Carbon Dioxide (22 - 30 mmol/L) 26 BUN (9 - 20 mg/dL) 17 Creatinine (0.7 - 1.3 mg/dL) 0.5 L Glomerular Filtr Rate (>60) 175 Glucose (74 - 106 mg/dL) 237 H Calcium (8.4 - 10.2 mg/dL) 9.3 Total Bilirubin (0.2 - 1.3 mg/dL) 0.8 Conjugated Bilirubin (0 - 0.3 mg/dL) 0 Unconjugated Bilirubin (0 - 1.1 mg/dL) 0.6 AST (15 - 46 U/L) 62 H ALT (13 - 69 U/L) 60 Total Alk Phosphatase (38 - 126 U/L) 55 Rapid Troponin I (0.00 - 0.079 ng/mL) 0.02 NT-Pro-B Natriuret Pep (0 - 299 pg/mL) 116 Total Protein (6.3 - 8.2 g/dL) 7.3 Albumin (3.5 - 5.0 g/dL) 4.0 Hematology WBC (5.0 - 12.0 x10 3/uL) 8.1 RBC (4.70 - 6.10 x10 6/uL) 4.25 L Hgb (14.0 - 18.0 g/dL) 13.5 L Hct (37.0 - 49.0 %) 38.7 MCV (80 - 94 fL) 91 MCH (27 - 31 pg) 31.8 H MCHC (33 - 37 g/dL) 34.9 RDW (11.5 - 15.5 %) 13.0 Plt Count (130 - 400 x10 3/uL) 189 MPV (9.4 - 16.4 fL) 10.0 Neut % (Auto) (43 - 65 %) 71.2 H Lymph % (Auto) (20.5 - 45.5 %) 21.0 [place] % (Auto) (5.5 - 11.7 %) 5.3 L Eos % (Auto) (0.9 - 2.9 %) 1.6 Baso % (Auto) (0.2 - 1.0 %) 0.7 Neut # (Auto) (2.2 - 4.8 x10 3/uL) 5.74 H Lymph # (Auto) (1.3 - 2.9 x10 3/uL) 1.70 [place] # (Auto) (0.3 - 0.8 x10 3/uL) 0.43 Eos # (Auto) (0.0 - 0.2 x10 3/uL) 0.13 Baso # (Auto) (0.0 - 0.1 x10 3/uL) 0.06 Immature Gran % (0.0 - 2.0 %) 0.2 Nucleated RBC % (0 - 1.0 %) 0.0 Recent Impressions: RADIOLOGY - XR CHEST 1 V 10/26 1642 Report Impression - Status: SIGNED Entered: 10/26/2018 1651 IMPRESSION: 1. No acute cardiopulmonary process. Impression By: Pepito Soares MD ULTRASOUND - DUP VEIN MAUDE 10/26 1736 Report Impression - Status: SIGNED Entered: 10/26/2018 1801 IMPRESSION: No evidence of right or left lower extremity DVT Impression By: Kaden Jiang MD Lab Imaging Statement Laboratory radiographic studies reviewed and considered in the medical decision-making. Point of Care Testing Pulse Oximetry Pulse Ox % 96 On: Room air Interpretation Interpreted by me, Pulse oximetry normal Time 1640 ECG #1 Interpretation Text/Dict Note Sinus rhythm 79 bpm. No STEMI. Date 10/26/18 Time 1635 Interpreted by ED physician Rate 79 Portions of this section were scribed by Sravanthi Naik on 10/26/18 at 1805 Patient Discharge Departure Vital Signs/Condition Vital Signs First Documented: Result Date Time Pulse Ox 96 10/26 1626 B/P 133/78 10/26 1626 B/P Mean 96 10/26 1626 O2 Delivery Room air 10/26 1626 Temp 36.6 10/26 1626 Pulse 78 10/26 1626 Resp 16 10/26 1626 Last Documented: Result Date Time Pulse Ox 99 10/26 1900 B/P 140/80 10/26 1900 B/P Mean 100 06/10 1900 O2 Delivery Room air 10/26 1899 Pulse 74 10/26 190 Resp 16 10/26 1899 Temp 36.6 10/26 1626 All vital signs available at the time of this entry have been reviewed. Condition Stable Clinical Impression Clinical Impression Primary Impression: Leg swelling Disposition Decision Discharge )( Discharged to Home Yes )( Time 1806 )( Date 10/26/18 Discharge/Care Plan Counseled Regarding Diagnosis, Lab results, Imaging studies, Need for follow-up, When to return to ED Discharge Note I have spoken with the patient and/or caregivers. I have explained the patient's condition, diagnoses and treatment plan based on the information available to me at this time. I have answered the patient's and/or caregiver's questions and addressed any concerns. The patient and/or caregivers have as good an understanding of the patient's diagnosis, condition and treatment plan as can be expected at this point. The vital signs have been stable. The patient's condition is stable and appropriate for discharge from the emergency department. The patient will pursue further outpatient evaluation with the primary care physician or other designated or consulting physician as outlined in the discharge instructions. The patient and/or caregivers are agreeable to this plan of care and follow-up instructions have been explained in detail. The patient and/or caregivers have received these instructions in written format and have expressed an understanding of the discharge instructions. The patient and/or caregivers are aware that any significant change in condition or worsening of symptoms should prompt an immediate return to this or the closest emergency department or a call to 911. Supervising Physician Note Scribe Statement Sravanthi Naik, 10/26/18 2900, scribing for and in the presence of [Catracho]. Signed By: Sravanthi Naik, 10/26/186 Provider Scribed Statement I personally performed the services described in this documentation and reviewed the documentation that was dictated to the scribe(s) in my presence, and it accurately records my words and actions. Pito Hayden, 10/27/18 Portions of this section were scribed by Sravanthi Naik on 10/26/18 at 1805 at 5102 [facility] #:[id number] END OF REPORT HCAKW
[2024-09-04 23:00] LABS: Absolute Basophils 0.1 K/uL (0-0.5); Absolute Eosinophils 0.3 K/uL (0-0.5); Absolute Monocytes 0.6 K/uL (0.1-1.3); Absolute Neutrophil 3.3 K/uL (1.8-8.0); Eosinophils % 4.1 % (0-4.4); Hemoglobin 14.5 g/dL (13.6-17.9); Lymphocytes % 32.2 % (15.3-44.8); MCH 31.3 pg (27.0-35.0); MCHC 34.5 g/dL (32.0-36.0); MCV 90.7 fL (80-100); MPV 8.7 fL (7.6-11.3); Monocytes % 9.3 % (3.3-12.3); Neutrophils % 53.4 % (41.7-73.7); Nucleated Red Blood Cells % 0.1 % (0-0); Platelets 141 thou/uL (152-406); RBC Red Blood Cell Count 4.64 M/uL (4.33-5.43); Red Cell Distribution Width 15.2 % (12.1-15.2)
[2024-09-04 23:01] LABS: PT Prothrombin Time 13.3 SECONDS (10-13.0); Protime INR 1.18
[2024-09-04] MEDS ORDERED: ONDANSETRON 4 MG/2 ML VIAL ONE (23:05)
[2024-09-04] MEDS ORDERED: METOCLOPRAMIDE 10 MG/2mL INJ ONE (23:06)
[2024-09-04] MEDS ORDERED: NA CHLORIDE 0.9% 1,000 ML ONE (23:06)
[2024-09-04] MEDS ORDERED: FAMOTIDINE 20 MG/2 ML VIAL IV ONE (23:06)
[2024-09-04 23:12] LABS: Albumin/Globulin Ratio 0.7 (1.1-1.8); Anion Gap 12.2 mEq/L (5.0-15.0); Bilirubin Total 1.7 mg/dL (0.2-1.0); C-Reactive Protein 3.44 mg/L (<3.00); Globulin 4.4 g/dL (2.3-3.5); Potassium 3.2 mEq/L (3.5-5.1); Protein, Total 7.4 g/dL (6.4-8.2); Troponin High Sensitivity 9.4 pg/mL (<58.9)
--- NOTE | 2024-09-05 01:04 | RAD REPORT ---
Clinical Indication: IV ONLY Bed Name: 13. Abdominal pain Comparison: June 04, 2022. TECHNIQUE: Helical imaging was performed from diaphragm through the pelvis after IV contrast administ ration with multiplanar reformations obtained. Coronal and sagittal reformats were performed and provided as separate series. IV CONTRAST: IV contrast dose was not provided GI CONTRAST: GI contrast was not administered CT Radiation Dose: DLP = 1720.8 mGy-cm All CT scans at this location are performed using dose optimization techniques as appropriate to perf orm the study. Radiation dose reduction technique was utilized including one or more of the following: Automated exp osure control, adjustment of the mA and/or kV according to patient size and use of iterative reconstruction technique. FINDINGS: LOWER CHEST: The visualized lung bases are clear. The heart is borderline enlarged. LIVER: The liver is somewhat shrunken with nodular surface. Prominence of the caudate lobe is noted. Within the left liver there is an irregular hypodense lesion. This can be seen on image 17 of series 201. This measures 3.2 cm in diameter. In the setting of cirrhosis, this most likely represent s hepatocellular carcinoma. GALLBLADDER: The patient is status post cholecystectomy. INTRAHEPATIC BILE DUCT AND EXTRAHEPATIC BILE DUCT: Unremarkable. PANCREAS: Unremarkable. SPLEEN: Unremarkable. ADRENALS: Unremarkable. KIDNEYS AND URETERS: The renal contours are normal. There is no hydronephrosis. No calcified harsh l stones are noted. No surrounding fat stranding is noted. STOMACH: Evaluation of the stomach and bowel is limited due to lack of oral contrast. No gross abno rmalities of the stomach are noted. BOWEL: Multiple gas and fluid distended loops of small bowel are noted throughout the abdomen. The co lonic loops in the abdomen and pelvis appear unremarkable. A few scattered diverticuli are noted in the sigmoid colon. No surrounding inflammatory changes are seen to suggest acute diverticulitis. APPENDIX: Not well seen on the exam. PERITONEUM AND RETROPERITONEUM: No ascites or free air. No loculated fluid collection is noted. The re is no aortic aneurysm or dissection. Moderate atherosclerotic disease is noted in the aortoiliac vessels. Numerous varices are noted within the region of the splenic hilum. These are noted to drain into the left renal vein and can be seen on image 35 of series 201. The portal vein is not enlarged. PELVIS: The prostate is unremarkable. BLADDER: Unremarkable LYMPH NODES: Unremarkable. OSSEOUS STRUCTURES: No acute abnormality seen. Degenerative changes are noted in the thoracolumbar sp ine. There is intervertebral disc space narrowing at L3-L4. There is endplate sclerosing and irregularity. Clinical correlation for discitis/osteomyelitis may be helpful. Bilateral pars defect i s noted at L5. There is grade 1 anterolisthesis of L5 on S1 of approximately 11 mm. SOFT TISSUES: Unremarkable. IMPRESSION: 1. Cirrhotic appearing liver with left 3.2 cm hypodense lesion, most likely hepatocellular carcinoma. 2. Spontaneous left splenorenal shunt. 3. Mild sigmoid diverticulosis without CT evidence of acute diverticulitis. 4. Findings could be consistent with enteritis and/or ileus. Electronically signed by: Jose Mcguire MD 09/05/2024 12:54 AM CDT RP Due to temporary technical issues with the [employer] reporting system, reports are being james d by the in-house radiologist without review as a courtesy to ensure prompt reporting the interpreting radiologist is fully responsible for the content of the report. Transcribed Date/Time: 09/05/2024 1:04 AM
--- NOTE | 2024-09-05 01:12 | EDPHYS ---
Physician Documentation [facility] Name: Mihir Palencia Age: 74 yrs Sex: Male : 1950 Arrival Date: 09/04/2024 Time: 21:39 Bed 13 Private MD: ED Physician Quentin Sanders HPI: 09/04 21:51 This 74 yrs old Male presents to ER via Unassigned with complaints of Suture sp4 Recheck, Nausea/Vomiting, Decreased Appetite. 09/05 22:44 74-year-old male presents with nausea vomiting decreased appetite and request to take sp4 out sutures from the right foot. 2 months ago patient had right great toe amputation at [facility] . Stitches are still present. Historical: - Allergies: 09/04 22:27 No Known Allergies; al5 - Home Meds: 22:27 clopidogrel 75 mg oral tablet daily [Active]; Tylenol #3 Oral [Active]; metformin 1,000 al5 mg Oral tablet 2 times per day [Active]; metoprolol tartrate 25 mg Oral tablet 2 times per day [Active]; losartan 50 mg oral tablet [Active]; amiodarone 200 mg Oral tablet daily [Active]; promethazine 12.5 mg Oral tablet [Active]; Glimepiride Oral [Active]; - PMHx: 22:27 diabetes mellitus; Hypertensive disorder; Pancreatitis; al5 - PSHx: 22:27 Cholecystectomy; al5 22:30 right great toe; al5 - Immunization history:: Adult Immunizations up to date. - Infectious Disease History:: Denies. - Social history:: Smoking status: Patient denies any tobacco usage or history of. Patient/guardian denies using alcohol, street drugs. - Family history:: not pertinent. ROS: 09/05 22:44 Constitutional: Negative for fever, chills, and weight loss, positive nausea vomiting sp4 positive decreased appetite positive request for suture removal from the right foot All other systems are negative, Exam: 22:44 Constitutional: This is a well developed, well nourished patient who is awake, alert, sp4 and in no acute distress. Head/Face: Normocephalic, atraumatic. Eyes: Pupils equal round and reactive to light, extra-ocular motions intact. Lids and lashes normal. Conjunctiva and sclera are not injected. Cornea within normal limits. Periorbital areas with no swelling, redness, or edema. ENT: Nares patent. No nasal discharge, no septal abnormalities noted. Tympanic membranes are normal and external auditory canals are clear. Oropharynx with no redness, swelling, or masses, exudates, or evidence of obstruction, uvula midline. Mucous membranes moist. Neck: Trachea midline, no thyromegaly or masses palpated, and no cervical lymphadenopathy. Supple, full range of motion without nuchal rigidity, or vertebral point tenderness. Chest/axilla: Normal chest wall appearance and motion. Nontender with no deformity. No lesions are appreciated. Cardiovascular: Regular rate and rhythm with a normal S1 and S2. No gallops, murmurs, or rubs. Normal PMI, no JVD. No pulse deficits. Respiratory: Lungs have equal breath sounds bilaterally, clear to auscultation and percussion. No rales, rhonchi or wheezes noted. No increased work of breathing, no retractions or nasal flaring. Abdomen/GI: Soft, with normal bowel sounds. No distension or tympany. No guarding or rebound. No evidence of tenderness throughout. Back: No spinal tenderness. No costovertebral tenderness. Skin: Warm, dry with normal turgor. Normal color with no rashes, no lesions, and no evidence of cellulitis. MS/ Extremity: Pulses equal, no cyanosis. Neurovascular intact. Full, normal range of motion. Right foot has fresh right great toe amputation site at the right metatarsal phalangeal joint. Incision looks clean and dry. Incision looks in healing stages. Sutures were removed. Suture removal done without complications. Sterile dressing was applied Neuro: Awake and alert, GCS 15, oriented to person, place, time, and situation. Cranial nerves II-XII grossly intact. Motor strength 5/5 in all extremities. Sensory grossly intact. Psych: Awake, alert, with orientation to person, place and time. Behavior, mood, and affect are within normal limits Vital Signs: 09/04 22:22 BP 119 / 85; Pulse 73; Resp 16 S; Temp 98.4(O); Pulse Ox 97% on R/A; Weight 106.59 kg al5 (R); Height 6 ft. 2 in. (R); Pain 8/10; 09/05 01:16 BP 124 / 78; Pulse 65; Resp 19; Temp 98.5; Pulse Ox 100% on R/A; Pain 3/10; kd4 02:26 BP 145 / 89; Pulse 69; Resp 18; Temp 98.1; Pulse Ox 97% on R/A; Pain 0/10; kd4 09/04 22:22 Body Mass Index 30.17 (106.59 kg, 187.96 cm) al5 09/04 22:22 Pain Scale: Adult al5 09/05 01:16 Pain Scale: Adult kd4 02:26 Pain Scale: Adult kd4 Jonathan Coma Score: 01:16 Eye Response: spontaneous(4). Motor Response: obeys commands(6). Verbal Response: kd4 oriented(5). Total: 15. 22:44 Eye Response: spontaneous(4). Motor Response: obeys commands(6). Verbal Response: sp4 oriented(5). Total: 15. Procedures: 22:46 Suture/Staple removal: Removed 12 sutures, from right first toe -sutures removed from sp4 right great toe amputation site, site appears well healed, dressed with gauze bandage, Patient tolerated well, Sutures removed without complication.. MDM: 09/04 23:21 Medical Screening Exam initiated sp4 09/05 00:57 ED course: OSSEOUS STRUCTURES: No acute abnormality seen. Degenerative changes are sp4 noted in the thoracolumbar spine. There is intervertebral disc space narrowing at L3-L4. There is endplate sclerosing and irregularity. Clinical correlation for discitis/osteomyelitis may be helpful. Bilateral pars defect is noted at L5. There is grade 1 anterolisthesis of L5 on S1 of approximately 11 mm. SOFT TISSUES: Unremarkable. IMPRESSION: 1. Cirrhotic appearing liver with left 3.2 cm hypodense lesion, most likely hepatocellular carcinoma. 2. Spontaneous left splenorenal shunt. 3. Mild sigmoid diverticulosis without CT evidence of acute diverticulitis. 4. Findings could be consistent with enteritis and/or ileus. Electronically signed by: Jose Mcguire MD 09/05/2024 12:54 AM. 22:46 Differential diagnosis: cellulitis, Decreased appetite, generalized weakness, acute sp4 hypoactive delirium, nausea vomiting. Data reviewed: vital signs, nurses notes, lab test result(s), radiologic studies, CT scan. Consideration of Admission/Observation Escalation of care including admission/observation considered. ED course: Positive for basically enteritis.. Will prescribe symptomatic medications.. 09/04 22:12 Order name: CBC with Diff; Complete Time: 00:49 4 09/04 22:12 Order name: CMP; Complete Time: 00:49 4 09/04 22:12 Order name: Lipase; Complete Time: 00:49 4 09/04 22:13 Order name: PT-INR; Complete Time: 00:49 [facility] 09/04 22:13 Order name: Troponin High Sensitivity; Complete Time: 00:49 4 09/04 22:14 Order name: BNP; Complete Time: 00:49 [facility] 09/04 22:14 Order name: CRP; Complete Time: 00:49 [facility] 09/04 22:13 Order name: CT Abd/Pelvis - IV Contrast Only [facility] 09/04 22:13 Order name: EKG; Complete Time: 22:14 [facility] 09/04 22:12 Order name: IV Saline Lock; Complete Time: 22:45 [facility] 09/04 22:12 Order name: Labs collected and sent; Complete Time: 22:45 [facility] 09/04 22:13 Order name: EKG - Nurse/Tech; Complete Time: 23:23 sp4 Administered Medications: 09/04 23:15 Drug: Famotidine IVP 20 mg IVP once; dilute with 10 mL 0.9% NaCl; give over 2 minutes kd4 Route: IVP; Site: right antecubital; 09/05 02:32 Follow up: Response: No adverse reaction [facility] 09/04 23:15 Drug: Ondansetron IVP 8 mg IVP once; over 2 minutes Route: IVP; Site: right antecubital;4 09/05 02:32 Follow up: Response: No adverse reaction [facility] 09/04 23:15 Drug: metoCLOPramide IVP 10 mg IVP once; over 1 to 2 minutes Route: IVP; Site: right kd4 antecubital; 09/05 02:31 Follow up: Response: No adverse reaction [facility] 09/04 23:16 Drug: NS 0.9% IV 1000 ml IV at 1 bolus Per protocol; to be given as a bolus over 60 kd4 minutes Route: IV; Rate: 1 bolus; Site: right antecubital; 09/05 02:32 Follow up: IV Status: Completed infusion kd4 Disposition Summary: 09/05/24 01:11 Discharge Ordered Notes: Location: Home sp4 Problem: new sp4 Symptoms: have improved sp4 Condition: Stable sp4 Diagnosis - Acute gastroenteritis, acute nausea and abdominal pain, encounter for suture sp4 removal right foot great toe amputation site, encounter for wound care right foot - Diabetes mellitus type II sp4 - Poor appetite sp4 Followup: sp4 - With: Private Physician - When: 7 - 10 days - Reason: Recheck today's complaints Discharge Instructions: - Discharge Summary Sheet sp4 - Viral Gastroenteritis, Adult, [id number] sp4 - Clear Liquid Diet, Adult, [id number] sp4 Forms: - Patient Portal Instructions sp4 Prescriptions: - ondansetron 8 mg Oral Tablet,disintegrating - take 1 tablet ORAL route every 8 hours PRN nausea; 30 tablet; Refills: 0, sp4 Product Selection Permitted Addendum: 09/07/2024 21:58 Addendum: EKG 09/04/2024 EKG time 2320 normal sinus rhythm rate 64, muscle tremor s p4 artifact, left axis deviation, no ST elevation or depression, no ectopy, normal intervals, no signs of acute ischemic changes.. Signatures: Dispatcher [employer] Quentin Cifuentes MD MD sp4 Warren Nolen RN RN kd4 Priyanka Akers RN RN al5
--- NOTE | 2024-09-05 01:12 | ER ---
Nurse's Notes [facility] Name: Mihir Palencia Age: 74 yrs Sex: Male : 1950 Arrival Date: 09/04/2024 Time: 21:39 Bed 13 Private MD: Diagnosis: Acute gastroenteritis, acute nausea and abdominal pain, encounter for suture removal right foot great toe amputation site, encounter for wound care right foot ;Diabetes mellitus type II ;Poor appetite Presentation: 09/04 22:22 Chief complaint: Patient states: suture check to right great to post amputation 1 month al5 ago. N/V/D and abdominal pain with generalized weakness X4 days. Coronavirus screen: Client denies travel out of the [place] in the last 14 days. At this time, the client does not indicate any symptoms associated with coronavirus-19. Ebola Screen: No symptoms or risks identified at this time. Initial Sepsis Screen: Does the patient meet any 2 criteria? No. Patient's initial sepsis screen is negative. Does the patient have a suspected source of infection? No. Patient's initial sepsis screen is negative. Risk Assessment: Do you want to hurt yourself or someone else? Patient reports no desire to harm self or others. Onset of symptoms was September 01, 2024. 22:22 Method Of Arrival: Wheelchair al5 22:22 Acuity: RICKEY 3 al5 Triage Assessment: 22:30 General: Appears in no apparent distress. uncomfortable, Behavior is calm, cooperative. al5 Pain: Complains of pain in abdomen. EENT: No deficits noted. No signs and/or symptoms were reported regarding the EENT system. Neuro: No deficits noted. Head Agitation-Sedation Scale (RASS): 0 - Alert and Calm Level of Consciousness is awake, alert, obeys commands, Oriented to person, place, time, situation, Reports weakness. Cardiovascular: No deficits noted. Denies chest pain, shortness of breath, Capillary refill < 3 seconds Clubbing of nail beds is absent JVD is absent Patient's skin is warm and dry. Respiratory: No deficits noted. Airway is patent Respiratory effort is even, unlabored, Respiratory pattern is regular, symmetrical. GI: Abdomen is round non-distended, Reports lower abdominal pain, diarrhea, intolerance of fluids, intolerance of food, nausea, vomiting. : No signs and/or symptoms were reported regarding the genitourinary system. Derm: Skin is intact, is healthy with good turgor, Skin is dry, Skin is normal, Skin temperature is warm Wound noted right first toe. Musculoskeletal: No deficits noted. Amputation of right first toe. Circulation, motion, and sensation intact. Range of motion: intact in all extremities. Historical: - Allergies: 22:27 No Known Allergies; al5 - Home Meds: 22:27 clopidogrel 75 mg oral tablet daily [Active]; Tylenol #3 Oral [Active]; metformin 1,000 al5 mg Oral tablet 2 times per day [Active]; metoprolol tartrate 25 mg Oral tablet 2 times per day [Active]; losartan 50 mg oral tablet [Active]; amiodarone 200 mg Oral tablet daily [Active]; promethazine 12.5 mg Oral tablet [Active]; Glimepiride Oral [Active]; - PMHx: 22:27 diabetes mellitus; Hypertensive disorder; Pancreatitis; al5 - PSHx: 22:27 Cholecystectomy; al5 22:30 right great toe; al5 - Immunization history:: Adult Immunizations up to date. - Infectious Disease History:: Denies. - Social history:: Smoking status: Patient denies any tobacco usage or history of. Patient/guardian denies using alcohol, street drugs. - Family history:: not pertinent. Screenin/20 01:16 [facility] ED Fall Risk Assessment (Adult) History of falling in the last 3 months, kd4 including since admission No falls in past 3 months (0 pts) Confusion or Disorientation No (0 pts) Intoxicated or Sedated No (0 pts) Impaired Gait Yes (1 pt) Mobility Assist Device Used Yes (1 pt) Altered Elimination No (0 pt) Score/Fall Risk Level 0 - 2 = Low Risk Educated pt \T\ family on fall prevention, incl call for assistance when getting out of bed. 01:16 Abuse screen: Denies threats or abuse. Nutritional screening: Decreased appetite. kd4 Tuberculosis screening: No symptoms or risk factors identified. Assessment: :16 General: Appears in no apparent distress. Pain:. Neuro: No deficits noted. Respiratory: kd4 No deficits noted. GI: Reports nausea, vomiting. :20 General: Patient present with c/o of abdominal pain, N/V with decreased appetite. kd4 denies cp, N/V,SOB.. 02:28 General: Patient with r great toes amputation with sutures, assess patient, leg kd4 wrapped with kerlix and coband by MD .Education provided to patient, follow up care explained. patient verbalized understanding. 03:14 General: . General: patient cleaned, diapper changed. kd4 05:20 General: Per MD no UA needed.. kd4 Vital Signs: 09/04 22:22 BP 119 / 85; Pulse 73; Resp 16 S; Temp 98.4(O); Pulse Ox 97% on R/A; Weight 106.59 kg al5 (R); Height 6 ft. 2 in. (R); Pain 8/10; 09/05 01:16 BP 124 / 78; Pulse 65; Resp 19; Temp 98.5; Pulse Ox 100% on R/A; Pain 3/10; kd4 02:26 BP 145 / 89; Pulse 69; Resp 18; Temp 98.1; Pulse Ox 97% on R/A; Pain 0/10; kd4 09/04 22:22 Body Mass Index 30.17 (106.59 kg, 187.96 cm) al5 09/04 22:22 Pain Scale: Adult al5 09/05 01:16 Pain Scale: Adult kd4 02:26 Pain Scale: Adult kd4 Jonathan Coma Score: 01:16 Eye Response: spontaneous(4). Motor Response: obeys commands(6). Verbal Response: kd4 oriented(5). Total: 15. 22:44 Eye Response: spontaneous(4). Motor Response: obeys commands(6). Verbal Response: sp4 oriented(5). Total: 15. ED Course: 09/04 21:46 Patient arrived in ED. gm2 21:51 Quentin Sanders MD is Attending Physician. sp4 22:27 Triage completed. al5 22:30 Arm band placed on right wrist. al5 22:32 Warren Nolen, BRIANNA is Primary Nurse. kd4 22:40 Missed attempt(s): 22 gauge in right forearm. Bleeding controlled, band aid applied, vc1 catheter tip intact. 22:45 Troponin High Sensitivity Sent. vc1 22:45 PT-INR Sent. vc1 22:45 CRP Sent. vc1 22:45 CBC with Diff Sent. vc1 22:45 CMP Sent. vc1 22:45 Lipase Sent. vc1 22:46 Initial lab(s) drawn, by me, sent to lab. Inserted saline lock: 20 gauge in right vc1 antecubital area, using aseptic technique. Blood collected. Flushed with 10 mL NS. 23:23 EKG done, by ED staff, reviewed by Quentin Sanders MD. hw 23:52 CT Abd/Pelvis - IV Contrast Only In Process Unspecified. EDMS 09/05 01:16 Patient has correct armband on for positive identification. Bed in low position. Call kd4 light in reach. Side rails up X2. 01:16 No provider procedures requiring assistance completed. kd4 02:31 Provided Education on: discharge. kd4 02:31 IV discontinued. kd4 Administered Medications: 09/04 23:15 Drug: metoCLOPramide IVP 10 mg IVP once; over 1 to 2 minutes Route: IVP; Site: right [facility] antecubital; 09/05 02:31 Follow up: Response: No adverse reaction 4 09/04 23:15 Drug: Ondansetron IVP 8 mg IVP once; over 2 minutes Route: IVP; Site: right antecubital;kd4 09/05 02:32 Follow up: Response: No adverse reaction 4 09/04 23:15 Drug: Famotidine IVP 20 mg IVP once; dilute with 10 mL 0.9% NaCl; give over 2 minutes kd4 Route: IVP; Site: right antecubital; 09/05 02:32 Follow up: Response: No adverse reaction 4 09/04 23:16 Drug: NS 0.9% IV 1000 ml IV at 1 bolus Per protocol; to be given as a bolus over 60 kd4 minutes Route: IV; Rate: 1 bolus; Site: right antecubital; 09/05 02:32 Follow up: IV Status: Completed infusion kd4 Medication: :16 VIS not applicable for this client. kd4 Outcome: 01:11 Discharge ordered by . sp4 02:30 Discharged to home via wheelchair, with family, kd4 02:30 Condition: stable 02:30 Discharge instructions given to patient, family, Instructed on discharge instructions, follow up and referral plans. Demonstrated understanding of instructions, follow-up care, medications, wound care, Patient have post op shoe Prescriptions given X 1, 02:33 Patient left the ED. kd4 Signatures: Dispatcher [employer] EDMS Davida Auguste RN RN vc1 Quentin Sanders MD MD sp4 Krysten Ponce 2 Warren Nolen RN RN kd4 Priyanka Akers RN RN al5 Tami Magdaleno
[2024-09-05 03:25] VITALS: BP 145/89; TEMP 98.1; O2SAT 97
--- NOTE | 2024-09-08 12:50 | EKG ---
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
== END 2024-09-05 02:33 | disposition home or self-care (01) ==
LOC: ER 21:39
DX: K52.9 Noninfective gastroenteritis and colitis, unspecified (principal); Z48.02 Encounter for removal of sutures; Z89.411 Acquired absence of right great toe; E11.9 Type 2 diabetes mellitus without complications; R63.0 Anorexia; R10.9 Unspecified abdominal pain
CPT/HCPCS: 96361; 93005; 85025; 36415; 85610; 84484; 83690; 80053; 83880; 86140; 74177; 96375; 96374; 99284; Q9967; J2765; J2405; J7030